=== PATIENT | male | born 1960 | race Caucasian/White ===

== ENCOUNTER 2016-07-21 08:30 | Inpatient (IN) | payer OTHER, MEDICARE ==
[~2016-07-21] VITALS: Ht 176.5 cm; Wt 83.4 kg
[2016-08-15] MEDS ORDERED: VENTAER INH (15:51)
[2016-08-15] MEDS ORDERED: ASPI1TAB69 PO (15:51)
[2016-08-15] MEDS ORDERED: SYMB160A INH (15:51)
[2016-08-15] MEDS ORDERED: AUGM875T PO (15:51)
[2016-08-18] VITALS (7 sets, daily range): BP systolic 150–154; BP diastolic 85–93; PULSE 70–88; RESP 18; TEMP 97.5–98.6; O2SAT 96–98
[2016-08-18] MEDS ORDERED: fentaNYL CITRATE 250 MCG/5 ML AMP ONE ×4 (07:04→14:47)
[2016-08-18] MEDS ORDERED: HYDROmorphone HCL PF 2 MG/ML VIAL ONE (07:04)
[2016-08-18] MEDS ORDERED: SUGAMMADEX SODIUM 200 MG/2 ML VIAL IV PUSH ONE ×2 (07:04)
[2016-08-18] MEDS ORDERED: INSULIN HUMAN REGULAR 1,000 UNITS/10 ML VIAL SQ PRN (07:15)
[2016-08-18] MEDS ORDERED: LACTATED RINGER'S 1000 ML IV SCH (07:15)
[2016-08-18] MEDS ORDERED: METOPROLOL TARTRATE 25 MG TAB PO PRN (07:15)
[2016-08-18] MEDS ORDERED: SODIUM CHLORID 0.9% 500 ML IV SCH (07:15)
[2016-08-18] MEDS ORDERED: METRONIDAZOLE 500 MG/100 ML ISONTONIC SOLN IV SCH (07:30)
[2016-08-18] MEDS ORDERED: DEXT 5%-NACL 0.9% 1000 ML INJ 1,000 ML IV SCH (07:30)
[2016-08-18] MEDS ORDERED: ceFAZolin 2 GM PREMIX 50 ML IV SCH (07:30)
[2016-08-18] MEDS ORDERED: MIDAZOLAM HCL 2 MG/2 ML VIAL ONE (08:39)
[2016-08-18] MEDS ORDERED: FAMOTIDINE 20 MG/2 ML VIAL ONE (08:40)
[2016-08-18] MEDS ORDERED: DEXAMETHASONE SOD PHOS 4 MG/ML VIAL ONE (08:40)
--- NOTE | 2016-08-18 09:42 | PD.OP ---
Operative Report Date of Surgery: Aug 18, 2016 Preoperative Diagnosis: Diverticulitis Postoperative Diagnosis: Same Procedure: Cystoscopy with bilateral ureteral catheter placement Surgeon: Praveen Fraser Director Of Emergency Nursing(s): None Resident Surgeon: None Operation and Findings: This is a 56-year-old male with history of diverticulitis elected to undergo robotic colectomy by Dr. Moffett. Request for made for bilateral ureteral catheter placement. Risk and benefits were discussed preoperatively and the patient is willing to proceed. Patient was brought to operating room identified by myself as Miki Damian. His placement dorsal lithotomy position, prepped and draped in usual sterile fashion, received preprocedure antibiotics, general endotracheal tube anesthesia was administered. A 22 Luxembourger scope was inserted into bladder. Ritter cystoscopy showed coaptation lobes of the prostate. No other abnormalities were identified within the bladder. Left ureteral orifice was identified and a 5 Luxembourger opening catheter was inserted into the left ureteral orifice without difficulty. This was repeated on the right side without difficulty. 16 Luxembourger Mg was then inserted and the catheters were anchored to the Mg. He tolerated the procedure well. Praveen Fraser DO Aug 18, 2016 09:42
[2016-08-18] MEDS ORDERED: ONDANSETRON HCL 4 MG/2 ML VIAL IV PUSH ONE (12:00)
[2016-08-18] MEDS ORDERED: ACETAMINOPHEN 1000 MG/100 ML VIAL IV ONE (12:00)
[2016-08-18] MEDS ORDERED: LACTATED RINGER'S 1000 ML INJ 1,000 ML IV ONE (12:00)
[2016-08-18] MEDS ORDERED: NORMOSOL R INJ 2,000 ML IV ONE (12:00)
[2016-08-18] MEDS ORDERED: PROPOFOL 200 MG/20 ML AMP IV ONE (12:00)
[2016-08-18] MEDS ORDERED: ceFAZolin INJ 1,000 MG VIAL IV ONE (13:19)
[2016-08-18] MEDS ORDERED: NALOXONE HCL 0.4 MG/ML AMP IV PRN (14:30)
[2016-08-18] MEDS ORDERED: POTASSIUM CHLOR 40 MEQ PREMIX 100 ML IV PRN (14:30)
[2016-08-18] MEDS ORDERED: POTASSIUM CHLOR 20 MEQ PREMIX 100 ML IV PRN (14:30)
[2016-08-18] MEDS ORDERED: BENZOCAINE 6 MG/MENTHOL 10 MG LOZENGE SUCK-ON PRN (14:30)
[2016-08-18] MEDS ORDERED: ENALAPRILAT 1.25 MG/ML VIAL IV PRN (14:30)
[2016-08-18] MEDS ORDERED: Post-op Orders (for Pharmacy) MISC XX ONE (14:35)
[2016-08-18] MEDS ORDERED: *morphine SULFATE 8 MG/ML PERIprocedure ONLY ONE ×3 (14:52→16:34)
[2016-08-18] MEDS: D5-NS + KCL 20 MEQ INJ 1,000 ML IV SCH ×2 (15:00→22:43)
[2016-08-18 15:11] LABS: AUTOMATED NEUTROPHIL # 13.3 TH/MM3 (1.8-7.7); BASOPHIL # 0.1 TH/MM3 (0-0.2); BASOPHIL % 0.5 % (0.0-2.0); EOSINOPHIL % 0.1 % (0.0-4.0); HEMATOCRIT 42.9 % (39.0-51.0); HEMO FLAGS DIFF FINAL; LYMPH % 8.9 % (9.0-44.0); LYMPHOCYTE # 1.4 TH/MM3 (1.0-4.8); MEAN CELL VOLUME 85.5 FL (80.0-100.0); MEAN CORPUSCULAR HEMOGLOBIN 28.4 PG (27.0-34.0); MEAN CORPUSCULAR HGB CONC 33.2 % (32.0-36.0); MONO % 4.7 % (0.0-8.0); NEUT % 85.8 % (16.0-70.0); PLATELET COUNT 375 TH/MM3 (150-450); RED BLOOD COUNT 5.02 MIL/MM3 (4.50-5.90); RED CELL DISTRIBUTION WIDTH 13.6 % (11.6-17.2); WHITE BLOOD COUNT 15.5 TH/MM3 (4.0-11.0)
[2016-08-18] MEDS: MORPHINE SULFATE 30 MG/30 ML PCA IV SCH (15:22)
[2016-08-18] MEDS ORDERED: DO NOT ADM ANY ANTICOAGULANT DRUGS XX PRN (15:45)
[2016-08-18 15:47] LABS: BICARBONATE 26.6 MEQ/L (21.0-32.0); POTASSIUM 4.5 MEQ/L (3.5-5.1)
[2016-08-18] MEDS ORDERED: LABETALOL HCL 100 MG/20 ML VIAL ONE ×2 (15:52→16:32)
[2016-08-18] MEDS: KETOROLAC TROMETHAMINE 30 MG/ML (IVP) VIAL IVP PRN ×2 (16:20→22:57)
[2016-08-18] MEDS: metroNIDAZOLE 500 MG INJ 100 ML IV SCH (17:00)
[2016-08-18] MEDS ORDERED: LIDOCAINE HCL 2% JELLY 5 ML SYRINGE ONE ×3 (17:09→17:30)
[2016-08-18] MEDS: OXYBUTYNIN CHLORIDE 5 MG TAB PO SCH (17:25)
[2016-08-18] MEDS: ONDANSETRON HCL 4 MG/2 ML VIAL IV PRN (17:55)
[2016-08-18] MEDS ORDERED: LORazepam 2 MG/ML VIAL ONE (18:38)
[2016-08-18] MEDS ORDERED: ALBUTEROL SULFATE 90 MCG/ACT HFA 8 GM INHALER INH PRN (20:00)
[2016-08-18] MEDS: SODIUM CHLORIDE 0.9% FLUSH 5 ML FLUSH IVF SCH (20:20)
[2016-08-18] MEDS: HEPARIN SODIUM - SQ 10,000 UNITS/ML VIAL SQ SCH (20:20)
[2016-08-18] MEDS: PCA - TOTAL MG MORPHINE DELIVERED PER SHIFT SCH (22:00)
[2016-08-19] VITALS (17 sets, daily range): BP systolic 125–159; BP diastolic 75–92; PULSE 69–102; RESP 14–18; TEMP 97.4–99.2; O2SAT 92–99
[2016-08-19] MEDS: metroNIDAZOLE 500 MG INJ 100 ML IV SCH ×2 (01:16→07:44)
[2016-08-19] MEDS: OXYBUTYNIN CHLORIDE 5 MG TAB PO SCH ×4 (01:36→23:32)
[2016-08-19] MEDS: diphenhydrAMINE HCL 50 MG/ML VIAL IV PRN ×2 (01:41→23:45)
[2016-08-19] MEDS: KETOROLAC TROMETHAMINE 30 MG/ML (IVP) VIAL IVP PRN ×4 (05:05→23:30)
[2016-08-19] MEDS: D5-NS + KCL 20 MEQ INJ 1,000 ML IV SCH ×2 (05:20→12:59)
[2016-08-19 05:21] LABS: AUTOMATED NEUTROPHIL # 5.9 TH/MM3 (1.8-7.7); BASOPHIL % 0.4 % (0.0-2.0); EOSINOPHIL % 0.4 % (0.0-4.0); HEMATOCRIT 39.3 % (39.0-51.0); HEMO FLAGS DIFF FINAL; LYMPH % 21.8 % (9.0-44.0); MEAN CELL VOLUME 86.1 FL (80.0-100.0); MEAN CORPUSCULAR HEMOGLOBIN 28.9 PG (27.0-34.0); MEAN CORPUSCULAR HGB CONC 33.5 % (32.0-36.0); MONO % 11.9 % (0.0-8.0); NEUT % 65.5 % (16.0-70.0); PLATELET COUNT 299 TH/MM3 (150-450); RED BLOOD COUNT 4.56 MIL/MM3 (4.50-5.90); RED CELL DISTRIBUTION WIDTH 13.6 % (11.6-17.2)
[2016-08-19] MEDS: LORazepam 2 MG/ML VIAL IV PUSH PRN ×3 (05:27→23:31)
[2016-08-19 05:38] LABS: BICARBONATE 30.3 MEQ/L (21.0-32.0); POTASSIUM 4.4 MEQ/L (3.5-5.1)
[2016-08-19] MEDS: MORPHINE SULFATE 30 MG/30 ML PCA IV SCH ×3 (05:47→23:53)
[2016-08-19] MEDS: PCA - TOTAL MG MORPHINE DELIVERED PER SHIFT SCH ×3 (05:47→22:00)
[2016-08-19] MEDS: HEPARIN SODIUM - SQ 10,000 UNITS/ML VIAL SQ SCH ×2 (06:24→17:46)
--- NOTE | 2016-08-19 07:38 | HHI.PR ---
Subjective Remarks POD#1 s/p robotic LAR/SBR/ANNA MARIE Reports bladder spasms no nausea Objective Vital Signs Date Time Temp Pulse Resp B/P Pulse Ox O2 Delivery O2 Flow Rate FiO2 08/19/16 07:27 18 08/19/16 06:00 82 08/19/16 05:47 14 08/19/16 05:47 18 08/19/16 05:00 80 08/19/16 04:00 73 08/19/16 04:00 97.6 72 16 148/90 95 08/19/16 03:00 70 08/19/16 02:00 72 08/19/16 01:00 97.4 69 14 145/90 99 08/19/16 01:00 74 08/19/16 00:00 71 14 148/91 98 08/19/16 00:00 69 08/18/16 23:00 72 08/18/16 22:44 97.6 74 18 154/93 98 08/18/16 22:00 74 08/18/16 22:00 14 08/18/16 21:00 88 08/18/16 20:06 97.5 71 18 150/85 98 08/18/16 20:00 70 08/18/16 19:40 97.8 74 15 97 Nasal Cannula 3 08/18/16 19:00 74 15 125/73 94 Nasal Cannula 3 08/18/16 18:30 74 15 160/93 94 Nasal Cannula 3 08/18/16 17:30 76 16 153/92 94 Nasal Cannula 3 08/18/16 17:00 79 16 164/89 94 Nasal Cannula 3 08/18/16 16:30 87 16 171/102 94 Nasal Cannula 3 08/18/16 16:15 87 16 157/96 94 Nasal Cannula 3 08/18/16 16:00 86 16 166/95 93 Nasal Cannula 3 08/18/16 15:45 91 16 175/101 93 Nasal Cannula 3 08/18/16 15:30 92 15 171/99 93 Nasal Cannula 3 08/18/16 15:22 16 08/18/16 15:15 94 15 154/90 93 Nasal Cannula 3 08/18/16 15:00 109 15 166/92 97 Simple Mask 6 08/18/16 14:45 111 15 165/97 97 Simple Mask 6 08/18/16 14:39 99.4 112 15 178/102 97 Simple Mask 6 I/O 08/18/16 08/18/16 08/18/16 08/19/16 08/19/16 08/19/16 07:00 15:00 23:00 07:00 15:00 23:00 Intake Total 3400 ml 400 ml 2576 ml Output Total 550 ml 800 ml 1000 ml Balance 2850 ml -400 ml 1576 ml Intake Oral 480 ml IV Total 400 ml 2096 ml Other 3400 ml Output Urine Total 400 ml 800 ml 1000 ml Estimated Blood Loss 150 ml # Voids 1 Result Diagram: 08/19/16 0414 08/19/16 0414 Objective Remarks Abdomen soft, distended, tender Dressings c/d/i Assessment and Plan Assessment and Plan D/C stent, flush borden Mobilized D/C tele If tolerates clears, advance to fulls this pm Elana Moffett MD Aug 19, 2016 07:38
[2016-08-19] MEDS: PANTOPRAZOLE SODIUM 40 MG VIAL IVP SCH (07:43)
[2016-08-19] MEDS: SODIUM CHLORIDE 0.9% FLUSH 5 ML FLUSH IVF SCH ×2 (07:43→20:53)
[2016-08-19] MEDS: ACETAMINOPHEN/HYDROcodone 325 MG/5 MG TAB PO PRN ×2 (17:06→23:31)
--- NOTE | 2016-08-19 18:55 | MP ---
cc: ALLEN MOFFETT M.D. DATE OF SURGERY: 08/18/2016. PREOPERATIVE DIAGNOSIS: Chronic diverticulitis POSTOPERATIVE DIAGNOSIS: Chronic diverticulitis with extension to the small bowel. OPERATIVE PROCEDURE PERFORMED: 1. Laparoscopic/robotic extensive lysis of adhesions. 2. Robotic low anterior resection 3. Robotic-assisted small bowel resection. SURGEON: Allen Moffett M.D. DIRECTOR [facility]: [facility]. ANESTHESIA: General per ET tube. ESTIMATED BLOOD LOSS: 150 cc. INDICATIONS FOR THE PROCEDURE: The patient is a 56-year-old male with multiple attacks of Diverticulitis with microperforation over several years time. OPERATIVE FINDINGS: The sigmoid colon was indurated, thickened and inflammatory and attached to the anterior abdominal wall, encroaching on the bladder space but not into the bladder space. The mid ileum had a small section that was starting to form a fistula into the area of inflammation. The gallbladder was not visualized. The liver as visualized appeared normal. The colon was opened at the end of the case and was noted have a small abscess as well. DESCRIPTION OF THE PROCEDURE IN DETAIL: The patient was brought to the operating room and placed in the supine position. After induction of general anesthesia, the patient was placed in Jairo stirrups. All bony prominences were carefully padded. The skin of the anterior abdominal wall, as well as the perineal area, was then prepped and draped in the usual sterile fashion. Dr. Fraser then came in and performed cystoscopy with placement of bilateral ureteral catheters, please see his operative note for details. A site was then chosen for the camera, being located 2 cm to the right and above the umbilicus. A 10/12 port was placed at this location under direct vision using a laparoscope. CO2 insufflation was then undertaken and a brief abdominal survey was performed. The sigmoid colon was immediately noted to be adherent to the anterior abdominal wall, down in the area of the bladder with a loop of small bowel adherent as well but there was nothing that would preclude the robotic approach. The remainder of the ports were placed as follows: the #1 10/12 port was placed just inside the anterior superior iliac spine, a #5 assist port was placed two fingerbreadths below the right costal margin, equal distance between the #1 and the camera port. The adhesions of the small bowel to the area of the phlegmon were then dissected free using electrocautery via laparoscopy, until we had mobility of the small bowel. There was noted however a fairly indurated section right on the side of the small bowel and I made a note to check the small bowel later in the course of the surgery. With this, I evaluated the descending colon and I was not clear on whether I would have to take out the splenic flexure, so I did elect to place my #2 port a little higher. The #3 port was placed in the left anterior axillary line, on a line with the umbilicus, and the #2 port was placed 5-7 cm above the umbilical line, in the left midclavicular line. The patient was hydroplaned with head down and slightly to the right. The small bowel was brought up and out of the pelvis to the extent possible. There were some adhesions of small bowel down to the right lower quadrant that needed to be dissected free in order to have decent retraction. The robot was then docked. The sigmoid colon was retracted further to the left and a window was made in the mesentery on the right. Dissection was continued in this window posterior to the vessels over to the lateral side. However, due to the massive amount of inflammation, I was really not able to definitively identify the left ureter. The adhesions of the phlegmon to the anterior abdominal wall and the left pelvic sidewall were then slowly and painstakingly dissected free using electrocautery, until eventually we had freed them up. However, there was still quite a bit of inflammation laterally as well. Dissection continued in this plane and eventually after much dissection of adhesions I was able to identify the left ureter and it was swept away from the specimen. A site was then chosen for division of the superior hemorrhoidal vessels. A window was made just above the vessels, and the Mcfarland Endo stapler white load was placed across the vessels. This was closed, held for 30 seconds, fired, and removed. The rectosigmoid was then retracted anteriorly and dissection continued posteriorly down to the level of mid rectum. This was continued up and around the right side. The rectosigmoid was then retracted to the right and the dissection was continued up and around the left side as well, again having quite a bit of adhesions to dissect through. Eventually we were able to straighten out the rectum and the distal rectum was noted to be quite healthy. It was necessary to go down beyond the peritoneal reflection anteriorly however. A sponge stick was placed into the rectum, and a site was chosen for division of the rectum at the junction between the mid rectum and the proximal rectum. The mesentery at this level was divided using the Harmonic stapler, and the Mcfarland Endo stapler was then placed across the bowel at this level. This was closed, held for 30 seconds, fired, and removed. A second load was necessary to complete the transection. At this point, the pelvis was examined and there was no sign of any significant bleeding. The descending colon was retracted medially and the lateral and posterior attachments of the descending colon were then dissected free up to the level of the splenic flexure but not around the splenic flexure. This allowed adequate length to come down into the pelvis without too much trouble. The robot was then undocked. Initially a 7 to 8 mm incision was made in the suprapubic area and a wound protector was then placed but I was not able to retrieve the specimen through such a small incision so I did have to make it slightly bigger. Eventually we were able to pull the proximal stapled end of the bowel up and out through the incision with the wound protector in place. A site was then chosen for proximal division of the bowel, where the bowel was pink and healthy circumferentially. The mesentery at this level was serially divided and ligated using #0 Vicryl ties and a pursestring stapling device was placed across the bowel at this level. The distal bowel was occluded with a Augustus clamp and the bowel was amputated and it was taken to a back table where it was later opened and the diverticulitis was confirmed. There was a very significant amount of inflammation, and a small pericolonic abscess as well. The small bowel was then examined and due to the fairly extensive area where it had been attached to the colon, I did elect to remove a section measuring possibly 10 to 12 cm in length. The mesentery at this level was serially divided and ligated using #0 Vicryl ties and the KELSEY stapler was placed across the bowel proximal and distal to the area of concern. The bowel was then amputated and taken to a back table where it was later opened and it did appear that he had started to fistulize into the small bowel. The antimesenteric corners of the staple line were then removed. One limb of the gastrointestinal stapler was placed down each limb of the bowel. This was closed along the antimesenteric border, fired, and removed, thus creating an enteroenterostomy. The resulting enterotomy was closed transversely using a TX 60 stapling device. The anastomosis was palpated and found to be widely patent. The mesentery was closed in an interrupted fashion using 3-0 Vicryl and a simple stay suture was placed at the distal end of the staple line using 3-0 Vicryl. This was then reduced back into the peritoneal cavity. An attempt to put the anvil from the 33 EEA stapler into the cut end of the bowel, but it did not fit so I dropped down to a 29. The anvil was placed into the cut end of the bowel and the previously placed pursestring suture was then secured. It was necessary to pull in one small area with a 3-0 Vicryl suture. A 29 EEA stapler was then advanced through the anus and up to the rectal stump where it lay nicely without tension. The spike was advanced posterior to the staple line. There was one small dog ear that was needed to be pulled in with the suture as well on the distal staple line. This was done using 3-0 Vicryl. The anvil was then into the spike, being careful that the bowel was not twisted. The stapler was closed, held for 30 seconds, fired and removed, thus creating an enteroenterotomy. The anastomosis appeared pink and healthy circumferentially and both anastomotic rings appeared to be complete. A small amount of warm normal saline was placed in the pelvis and digital pressure was held on the proximal bowel. Air was insufflated into the rectum until tension was noted on the anastomosis. There was no sign of any leakage noted. The air was desufflated to the extent possible and the saline was suctioned out of the pelvis. The anastomosis lay nicely without tension with a nice orientation. All dissection beds were examined. There was no sign of any significant bleeding. The posterior fascia at the suprapubic incision was closed in a running fashion using #1 PDS and the anterior fascia of the suprapubic incision was closed using #1 PDS. The suprapubic incision was then closed with an OpSite and CO2 insufflation was resumed. The laparoscope was brought onto the field and the 10/12 trocar at the umbilical and the right lower quadrant site were then closed using the crossbow closure device and 0 Vicryl suture. These sutures were placed but not tied until an additional look in the pelvis was noted with no sign of any significant bleeding noted. The air was desufflated to the extent possible from the peritoneal cavity. The previously placed fascial sutures were then secured. All wounds were copiously irrigated with warm normal saline. The skin at the suprapubic incision was closed in a running fashion using 3-0 Vicryl, and the skin at the trocar sites was closed in interrupted subcuticular fashion using 3-0 Vicryl. Steri-Strips and sterile dressing was applied. All sponge, needle and instrument counts were correct. The right ureteral stent was removed, and the patient was returned to the post anesthesia care in stable condition. MD JOCELYN Fisher/ALEXANDER /2:20 PM /6:23 PM MTDBess
[2016-08-19] MEDS: ONDANSETRON HCL 4 MG/2 ML VIAL IV PRN (23:31)
[2016-08-20] VITALS (12 sets, daily range): BP systolic 127–159; BP diastolic 75–98; PULSE 86–109; RESP 14–20; TEMP 97.5–99.5; O2SAT 86–97
[2016-08-20] MEDS: D5-NS + KCL 20 MEQ INJ 1,000 ML IV SCH ×2 (00:10→11:02)
[2016-08-20 04:58] LABS: BASOPHIL % 0.3 % (0.0-2.0); EOSINOPHIL # 0.3 TH/MM3 (0-0.4); EOSINOPHIL % 2.9 % (0.0-4.0); HEMATOCRIT 40.1 % (39.0-51.0); LYMPH % 13.3 % (9.0-44.0); LYMPHOCYTE # 1.4 TH/MM3 (1.0-4.8); MEAN CELL VOLUME 86.8 FL (80.0-100.0); MEAN CORPUSCULAR HEMOGLOBIN 28.7 PG (27.0-34.0); MEAN CORPUSCULAR HGB CONC 33.1 % (32.0-36.0); MONO % 10.1 % (0.0-8.0); NEUT % 73.4 % (16.0-70.0); PLATELET COUNT 286 TH/MM3 (150-450); RED BLOOD COUNT 4.62 MIL/MM3 (4.50-5.90); RED CELL DISTRIBUTION WIDTH 13.8 % (11.6-17.2); WHITE BLOOD COUNT 10.9 TH/MM3 (4.0-11.0)
[2016-08-20 05:07] LABS: HEMO FLAGS AUTO DIFF
[2016-08-20 05:22] LABS: BICARBONATE 30.4 MEQ/L (21.0-32.0); POTASSIUM 4.3 MEQ/L (3.5-5.1)
[2016-08-20] MEDS: PCA - TOTAL MG MORPHINE DELIVERED PER SHIFT SCH ×3 (06:00→22:00)
[2016-08-20] MEDS: ACETAMINOPHEN/HYDROcodone 325 MG/5 MG TAB PO PRN ×2 (06:13→14:59)
[2016-08-20] MEDS: KETOROLAC TROMETHAMINE 30 MG/ML (IVP) VIAL IVP PRN ×4 (06:13→20:49)
[2016-08-20] MEDS: HEPARIN SODIUM - SQ 10,000 UNITS/ML VIAL SQ SCH ×2 (06:15→17:46)
[2016-08-20 06:20] LABS: SCAN/DIFF AUTO DIFF CONFIRMED
--- NOTE | 2016-08-20 08:51 | HHI.PR ---
Subjective Remarks POD#2 s/p robotic LAR/SBR/ANNA MARIE Still with some abdominal spasms Minimal flatus Objective Vital Signs Date Time Temp Pulse Resp B/P Pulse Ox O2 Delivery O2 Flow Rate FiO2 08/20/16 08:09 20 08/20/16 08:08 20 08/20/16 06:40 20 08/20/16 06:00 18 08/20/16 05:16 99.5 98 14 159/97 94 08/20/16 03:00 93 Nasal Cannula 2.00 08/20/16 00:30 127/75 08/20/16 00:00 144/84 08/20/16 00:00 94 Nasal Cannula 2.00 08/19/16 23:54 99.2 102 14 159/92 94 08/19/16 23:53 16 08/19/16 22:00 14 08/19/16 22:00 18 08/19/16 20:44 98.6 95 16 142/87 94 08/19/16 20:42 94 Room Air 08/19/16 19:38 94 Nasal Cannula 2.00 08/19/16 15:28 92 Room Air 08/19/16 15:28 99.0 94 18 153/83 92 08/19/16 15:26 18 08/19/16 15:11 18 08/19/16 14:24 16 08/19/16 12:49 18 08/19/16 11:40 93 Room Air 08/19/16 11:38 97.7 76 18 125/75 93 08/19/16 11:36 94 Nasal Cannula 2.00 I/O 08/19/16 08/19/16 08/19/16 08/20/16 08/20/16 08/20/16 07:00 15:00 23:00 07:00 15:00 23:00 Intake Total 2576 ml 1860 ml 2749 ml Output Total 1000 ml 950 ml 900 ml Balance 1576 ml 910 ml 1849 ml Intake Oral 480 ml 660 ml 240 ml IV Total 2096 ml 1200 ml 2509 ml Output Urine Total 1000 ml 950 ml 900 ml # Bowel Movements 0 0 Result Diagram: 08/20/16 0431 08/20/16 0431 Objective Remarks Abdomen soft, distended, tender Wounds clean Assessment and Plan Assessment and Plan D/C borden Transfer to [facility] Surg Mobilize Hold at Full liquids until less distended Elana Moffett MD Aug 20, 2016 08:51
[2016-08-20] MEDS: PANTOPRAZOLE SODIUM 40 MG VIAL IVP SCH (08:55)
[2016-08-20] MEDS: SODIUM CHLORIDE 0.9% FLUSH 5 ML FLUSH IVF SCH ×2 (08:56→20:50)
[2016-08-20] MEDS ORDERED: INFLUENZA VIRUS VACCINE (QUADRIVALENT) 0.5 ML SYR IM ONE (10:00)
[2016-08-20] MEDS ORDERED: PNEUMOCOCCAL POLYVALENT INJ 25 MCG/0.5 ML SYR IM ONE (10:00)
[2016-08-20] MEDS: MORPHINE SULFATE 30 MG/30 ML PCA IV SCH ×2 (11:40→21:06)
[2016-08-20] MEDS: OXYBUTYNIN CHLORIDE 5 MG TAB PO SCH ×2 (13:57→16:42)
[2016-08-20] MEDS: LORazepam 2 MG/ML VIAL IV PUSH PRN ×2 (14:59→20:50)
[2016-08-20] MEDS: diphenhydrAMINE HCL 50 MG/ML VIAL IV PRN ×2 (15:04→20:49)
[2016-08-20] MEDS: ENALAPRILAT 2.5 MG/2 ML VIAL IV PRN (16:47)
[2016-08-21] VITALS (9 sets, daily range): BP systolic 111–130; BP diastolic 64–85; PULSE 102–128; RESP 16–20; TEMP 98.4–99.2; O2SAT 90–99
[2016-08-21] MEDS: KETOROLAC TROMETHAMINE 30 MG/ML (IVP) VIAL IVP PRN ×2 (02:14→08:23)
[2016-08-21] MEDS: D5-NS + KCL 20 MEQ INJ 1,000 ML IV SCH (02:14)
[2016-08-21] MEDS: LORazepam 2 MG/ML VIAL IV PUSH PRN ×2 (02:50→08:23)
[2016-08-21] MEDS: PCA - TOTAL MG MORPHINE DELIVERED PER SHIFT SCH ×2 (06:00→12:43)
[2016-08-21 06:05] LABS: AUTOMATED NEUTROPHIL # 12.1 TH/MM3 (1.8-7.7); BASOPHIL % 0.2 % (0.0-2.0); EOSINOPHIL % 0.1 % (0.0-4.0); HEMATOCRIT 44.4 % (39.0-51.0); HEMO FLAGS DIFF FINAL; LYMPH % 9.3 % (9.0-44.0); LYMPHOCYTE # 1.3 TH/MM3 (1.0-4.8); MEAN CELL VOLUME 87.5 FL (80.0-100.0); MEAN CORPUSCULAR HEMOGLOBIN 28.3 PG (27.0-34.0); MEAN CORPUSCULAR HGB CONC 32.3 % (32.0-36.0); MONO % 6.8 % (0.0-8.0); NEUT % 83.6 % (16.0-70.0); PLATELET COUNT 381 TH/MM3 (150-450); RED BLOOD COUNT 5.07 MIL/MM3 (4.50-5.90); RED CELL DISTRIBUTION WIDTH 13.9 % (11.6-17.2); WHITE BLOOD COUNT 14.5 TH/MM3 (4.0-11.0)
[2016-08-21] MEDS: HEPARIN SODIUM - SQ 10,000 UNITS/ML VIAL SQ SCH ×2 (06:08→16:40)
[2016-08-21 06:34] LABS: BICARBONATE 27.9 MEQ/L (21.0-32.0); POTASSIUM 5.1 MEQ/L (3.5-5.1)
[2016-08-21] MEDS: OXYBUTYNIN CHLORIDE 5 MG TAB PO SCH ×3 (08:23→16:39)
[2016-08-21] MEDS: PANTOPRAZOLE SODIUM 40 MG VIAL IVP SCH (08:23)
[2016-08-21] MEDS: SODIUM CHLORIDE 0.9% FLUSH 5 ML FLUSH IVF SCH ×2 (08:23→20:03)
[2016-08-21] MEDS: MORPHINE SULFATE 30 MG/30 ML PCA IV SCH (08:31)
[2016-08-21] MEDS: diphenhydrAMINE HCL 50 MG/ML VIAL IV PRN ×2 (10:44→20:03)
[2016-08-21] MEDS: BUDESONIDE-FORMOTEROL 160/4.5 MCG INHALER INH PRN (12:43)
[2016-08-21] MEDS: ACETAMINOPHEN/HYDROcodone 325 MG/5 MG TAB PO PRN ×2 (13:14→19:06)
[2016-08-21] MEDS: FUROSEMIDE 20 MG/2 ML VIAL IV PUSH SCH ×2 (13:14→20:02)
[2016-08-21] MEDS ORDERED: IODIXANOL 320 MG/ML 10 ML VIAL (for Rad CT) IV ONE (15:09)
--- NOTE | 2016-08-21 15:09 | HHI.PR ---
Subjective Remarks POD#3 s/p robotic LAR/SBR/ANNA MARIE SOB today CT for PE pending Objective Vital Signs Date Time Temp Pulse Resp B/P Pulse Ox O2 Delivery O2 Flow Rate FiO2 08/21/16 14:19 16 08/21/16 12:43 16 08/21/16 12:00 Nasal Cannula 2.00 21 08/21/16 12:00 99.1 114 20 123/78 94 08/21/16 09:50 16 08/21/16 08:31 16 08/21/16 08:00 Nasal Cannula 4.00 21 08/21/16 08:00 99.2 111 16 130/82 92 08/21/16 06:00 18 08/21/16 06:00 18 08/21/16 05:51 95 Nasal Cannula 4.00 08/21/16 03:00 98.4 102 18 126/85 96 08/21/16 03:00 96 Nasal Cannula 2.00 08/20/16 23:00 97 Nasal Cannula 2.00 08/20/16 23:00 98.3 92 20 142/78 97 08/20/16 22:00 18 08/20/16 22:00 18 08/20/16 21:06 18 08/20/16 19:00 95 Nasal Cannula 2.00 08/20/16 19:00 98.2 109 18 156/85 95 08/20/16 16:08 22 08/20/16 15:11 97.5 92 18 151/95 94 08/20/16 15:11 94 Nasal Cannula 2.00 I/O 08/20/16 08/20/16 08/20/16 08/21/16 08/21/16 08/21/16 07:00 15:00 23:00 07:00 15:00 23:00 Intake Total 2749 ml 1080 ml 1200 ml Output Total 900 ml 1300 ml 800 ml Balance 1849 ml -220 ml 400 ml Intake Oral 240 ml 480 ml 600 ml IV Total 2509 ml 600 ml 600 ml Output Urine Total 900 ml 1300 ml 800 ml # Bowel Movements 0 0 Result Diagram: 08/21/16 0539 08/21/16 0539 Objective Remarks Chest - slight crackles, wheeze Abdomen softer, still distended, tender Wounds clean Assessment and Plan Assessment and Plan Per patient, he uses nebulizer each afternoon Suspect combo of this, and fluid overload Await CT results Lasix Continue fulls until better flatus/BM Elana Moffett MD Aug 21, 2016 15:09
--- NOTE | 2016-08-21 15:12 | RADRPT ---
EXAM DATE/TIME: 08/21/2016 14:05 [facility] COMPARISON: No previous studies available for comparison. INDICATIONS : Shortness of breath. IV CONTRAST: 89 cc Visipaque (iodixanol) IV RADIATION DOSE: 22.2 CTDIvol (mGy) MEDICAL HISTORY : Hypertension. Renal disease, diabetes SURGICAL HISTORY : Colon resection. ENCOUNTER: Initial ACUITY: 1 day PAIN SCALE: 0/10 LOCATION: Chest TECHNIQUE: Volumetric scanning of the chest was performed using a pulmonary embolism protocol MIP images were reconstructed. Using automated exposure control and adjustment of the mA and/or kV acco rding to patient size, radiation dose was kept as low as reasonably achievable to obtain optimal diag nostic quality images. FINDINGS: There is mild prominence of the interstitium with minimal bibasilar parenchymal changes evident. There is no evidence for central pulmonary emboli. There is no pericardial effusion. There is ascites with minimal free air present. A small amount of air is seen in the subcutaneous tissues as well consistent with recent surgical his tory. CONCLUSION: 1. There is no evidence for central pulmonary emboli. 2. Minimal subcutaneous air as well as free intraperitoneal air. Aditya Rocha MD FACR on August 21, 2016 at 15:04 Board Certified Radiologist. This report was verified electronically.
[2016-08-21] MEDS: RESP: ALBUTEROL 2.5 MG/3 ML NEB (SCH) NEB ×2 (15:49→19:46)
[2016-08-22] VITALS (18 sets, daily range): BP systolic 120–165; BP diastolic 69–94; PULSE 98–144; RESP 16–40; TEMP 97.5–99.6; O2SAT 87–98
[2016-08-22] MEDS: ACETAMINOPHEN/HYDROcodone 325 MG/5 MG TAB PO PRN (03:03)
[2016-08-22] MEDS: LORazepam 2 MG/ML VIAL IV PUSH PRN ×4 (03:04→20:31)
[2016-08-22] MEDS: HEPARIN SODIUM - SQ 10,000 UNITS/ML VIAL SQ SCH ×3 (05:15→20:13)
[2016-08-22] MEDS ORDERED: RESP: ALBUTEROL 2.5 MG/3 ML NEB (SCH) INH ONE (06:00)
--- NOTE | 2016-08-22 06:27 | RADRPT ---
EXAM DATE/TIME: 08/22/2016 06:02 [facility] COMPARISON: No previous studies available for comparison. INDICATIONS : Very short of breath for past 3 days, pain in abdomen, chest, and shoulders MEDICAL HISTORY : Chronic obstructive pulmonary disease. Diverticulitis. SURGICAL HISTORY : colon resection ENCOUNTER: Subsequent ACUITY: 3 days PAIN SCORE: 10/10 LOCATION: Bilateral chest FINDINGS: A single view of the chest demonstrates mild basilar airspace disease, right greater than left. No si gnificant effusion. No pneumothorax. CONCLUSION: Mild basilar airspace disease, right greater than left. Findings similar to CT from August 21 and ost characteristic of atelectasis. Miki Banerjee MD on August 22, 2016 at 6:20 Board Certified Radiologist. This report was verified electronically.
[2016-08-22] MEDS: RESP: ALBUTEROL 2.5 MG/3 ML NEB (SCH) NEB (07:31)
[2016-08-22] MEDS: BUDESONIDE-FORMOTEROL 160/4.5 MCG INHALER INH PRN (07:43)
[2016-08-22] MEDS: FUROSEMIDE 20 MG/2 ML VIAL IV PUSH SCH ×2 (07:53→20:14)
--- NOTE | 2016-08-22 09:25 | HHI.PR ---
Subjective Remarks POD#4 s/p robotic LAR/SBR/ANNA MARIE Repiratory distress, able to converse easily No nausea Abdominal pain only with movement Objective Vital Signs Date Time Temp Pulse Resp B/P Pulse Ox O2 Delivery O2 Flow Rate FiO2 08/22/16 08:20 138 08/22/16 07:59 99.0 133 24 165/94 95 08/22/16 07:59 96 Nasal Cannula 4.00 Humidified 08/22/16 06:08 92 Nasal Cannula 4.00 08/22/16 04:00 98.4 113 22 147/94 95 08/22/16 04:00 95 Nasal Cannula 4.00 21 Humidified 08/22/16 00:00 98.9 98 16 120/69 98 08/22/16 00:00 98 Nasal Cannula 4.00 21 Humidified 08/21/16 20:00 Nasal Cannula 4.00 21 Humidified 08/21/16 20:00 98.8 112 20 111/72 99 08/21/16 19:49 90 Nasal Cannula 4.00 08/21/16 16:00 Nasal Cannula 4.00 21 08/21/16 16:00 99.0 128 19 113/64 95 08/21/16 15:54 94 Nasal Cannula 4.00 08/21/16 14:19 16 08/21/16 12:43 16 08/21/16 12:00 Nasal Cannula 2.00 21 08/21/16 12:00 99.1 114 20 123/78 94 08/21/16 09:50 16 I/O 08/21/16 08/21/16 08/21/16 08/22/16 08/22/16 08/22/16 07:00 15:00 23:00 07:00 15:00 23:00 Intake Total 1200 ml 1540 ml 480 ml Output Total 800 ml 1100 ml 450 ml Balance 400 ml 440 ml 30 ml Intake Oral 600 ml 940 ml 480 ml IV Total 600 ml 600 ml Output Urine Total 800 ml 1100 ml 450 ml # Voids 2 # Bowel Movements 1 1 Result Diagram: 08/21/16 0539 08/21/16 0539 Objective Remarks Abdomen still distended, tender Right abdominal wall erythematous, no fluctuance Assessment and Plan Assessment and Plan Check EKG, Troponin Xopenox Check stat labs, CBC<, BMP, MAg, ABG Xray from this am ok Start Vancomycin for wound infection Once stable, may check abdominal CT Elana Moffett MD Aug 22, 2016 09:25
[2016-08-22 09:29] LABS: BLOOD GAS BASE EXCESS -3.3 mmol/L (-2-2); BLOOD GAS CARBOXYHEMOGLOBIN 1.6 % (0-4); BLOOD GAS HCO3 21 mmol/L (22-26); BLOOD GAS O2 HGB SATURATION 94 % (90-100); BLOOD GAS OXYGEN CONTENT 18.8 Vol % (12.0-20.0); BLOOD GAS PCO2 38 mmHg (38-42); BLOOD GAS PO2 86 mmHg (61-120); BLOOD GAS TOTAL HGB 14.2 G/DL (12.0-16.0); TEMP CORR TO 98.6
[2016-08-22 09:30] LABS: CRITICAL VALUE NO; DRAW SITE LT RADIAL; LITER FLOW 6 L/M; NUMBER OF ARTERIAL PUNCTURES 1; OXYGEN DEVICE SIMPLE MASK; STAT YES; ULNAR PULSE PRESENT
[2016-08-22] MEDS ORDERED: Vancomycin Consult Pharmacy 1 EA OTHER SCH (09:30)
[2016-08-22] MEDS ORDERED: ASPIRIN 81 MG CHEW TAB CHEW ONE ×2 (09:30)
[2016-08-22 09:31] LABS: AUTOMATED NEUTROPHIL # 18.7 TH/MM3 (1.8-7.7); BASOPHIL % 0.2 % (0.0-2.0); EOSINOPHIL % 0.2 % (0.0-4.0); HEMATOCRIT 42.3 % (39.0-51.0); LYMPH % 2.9 % (9.0-44.0); LYMPHOCYTE # 0.6 TH/MM3 (1.0-4.8); MEAN CELL VOLUME 86.2 FL (80.0-100.0); MEAN CORPUSCULAR HEMOGLOBIN 29.4 PG (27.0-34.0); MEAN CORPUSCULAR HGB CONC 34.1 % (32.0-36.0); MONO % 6.9 % (0.0-8.0); NEUT % 89.8 % (16.0-70.0); PLATELET COUNT 482 TH/MM3 (150-450); RED BLOOD COUNT 4.91 MIL/MM3 (4.50-5.90); WHITE BLOOD COUNT 20.8 TH/MM3 (4.0-11.0)
[2016-08-22 09:34] LABS: HEMO FLAGS AUTO DIFF
[2016-08-22] MEDS: RESP: LEVALBUTEROL HYDROCHLORIDE 1.25 MG/3 ML NEB (PRN) NEB ×2 (09:39→15:12)
[2016-08-22 09:55] LABS: BICARBONATE 24.6 MEQ/L (21.0-32.0); POTASSIUM 4.8 MEQ/L (3.5-5.1)
[2016-08-22] MEDS: SODIUM CHLORIDE 0.9% FLUSH 5 ML FLUSH IVF SCH ×2 (10:09→21:00)
[2016-08-22] MEDS: OXYBUTYNIN CHLORIDE 5 MG TAB PO SCH ×3 (10:10→17:28)
[2016-08-22] MEDS: PANTOPRAZOLE SODIUM 40 MG VIAL IVP SCH (10:10)
[2016-08-22 10:11] LABS: BANDS 26 % (0-6); NEUTROPHIL # MANUAL DIFF 19.6 TH/MM3 (1.8-7.7); POLYS (SEG NEUTROPHILS) 68 % (16-70); WBC DIFF SAMPLE 100
[2016-08-22 10:12] LABS: PLATELET ESTIMATE SMEAR HIGH (NORMAL); PLATELET MORPHOLOGY NORMAL (NORMAL); SCAN/DIFF FINAL DIFF MANUAL
--- NOTE | 2016-08-22 10:31 | RADRPT ---
EXAM DATE/TIME: 08/22/2016 09:55 [facility] COMPARISON: CT abdomen August 19 to be used for comparison. INDICATIONS: Respiratory distress. MEDICAL HISTORY: Hypertension. Renal disease, diabetes SURGICAL HISTORY: Colon resection. ENCOUNTER: Subsequent ACUITY: 2 days PAIN SCORE: 10/10 LOCATION: Abdomen, all quadrants. FINDINGS: Two view abdomen demonstrates there is a fair amount of bowel gas and some distended but non-dilated loops of small bowel. No obvious organomegaly is identified. CONCLUSION: Air-filled loops of distended small bowel. Otherwise nonspecific bowel gas pattern. Mikel Nguyen MD on August 22, 2016 at 10:20 Board Certified Radiologist. This report was verified electronically.
[2016-08-22] MEDS ORDERED: VANCOMYCIN INJ 1,500 MG in SODIUM CHLORID 0.9% 500 ML INJ 500 ML IV ONE (12:00)
[2016-08-22] MEDS: METOCLOPRAMIDE HCL 10 MG/2 ML VIAL IV PUSH SCH ×2 (12:06→21:45)
[2016-08-22] MEDS: SODIUM CHLOR 0.9% 1000 ML INJ 1,000 ML IV SCH (17:28)
--- NOTE | 2016-08-22 19:49 | MB ---
cc: MASON LUNA DATE OF CONSULTATION 08/22/[address] Elana Moffett REASON FOR CONSULTATION Respiratory management. HISTORY OF PRESENT ILLNESS Mr. Damian is a 56-year-old male with history of hypertension, COPD, nicotine use continues to smoke one pack of cigarettes a day. The patient was brought by Dr. Elana Moffett and he had diverticulitis. He had laparoscopic robotic-assisted extensive lysis of adhesion, low anterior resection and small bowel resection done on Sunday. Todays, the patient became more short of breath. He had a CT of the chest does not show any pulmonary embolism. Currently, he is on BiPap. He feels his breathing is better. LABORATORY FINDINGS WBC count is 20.8, hemoglobin 14.4, hematocrit 42.3, MCV 86, platelets 482. Sodium 137, potassium 4.8, chloride 104, CO2 24, BUN 31, creatinine 2.0, Arterial blood gas on six liters nasal cannula - pH 7.37, pCO2 38, PO2 86. PAST MEDICAL HISTORY 1. History of COPD, 2. Hypertension, 3. Anxiety disorder, 4. Prostate enlargement 5. Tonsillectomy. MEDICATIONS Currently taking 1. Ativan 0.5 mg q 3-hour p.r.n. 2. Reglan 10 mg q. 8-hour. 3. Xopenex nebulizer treatment 4. Lasix 20 mg twice a day, 5. Protonix 40 mg a day 6. Symbicort ALLERGIES NO KNOWN DRUG ALLERGIES. SOCIAL HISTORY He is . Works in construction. He has a long history of smoking, continues to smoke one pack of cigarettes a day. FAMILY HISTORY He has four children. REVIEW OF SYSTEMS Normally he is up around and active. No headache or dizziness. No DVT or pulmonary embolism. No seizure, stroke or epilepsy. PHYSICAL EXAMINATION GENERAL: Well-built, well-nourished obese male mildly short of breath. VITAL SIGNS: Blood pressure 131/72, heart 115, respiration 22, Temperature 97.5 HEENT: Pupils are equal and reactive to light. NECK: Supple. JVP not raised. CHEST: He has few expiratory rhonchi. CARDIOVASCULAR: S1, S2 normal ABDOMEN: Obese, nontender. Bowel sounds are present. EXTREMITIES: No edema. IMPRESSION 1. COPD exacerbation 2. Respiratory insufficiency. 3. Hypertension 4. Status post laparoscopic robotic extensive lysis of adhesions and LAR PLAN I discussed with the patient and family we will keep him on BiPap aerosol treatment with albuterol and Atrovent. I will give him a short course of steroid, Solu-Medrol 40 mg q.8 h Supplement his oxygen. Once he gets better, he will need pulmonary function study. Further treatment will depend on the course in the hospital. Thank you, Dr. Elana Moffett, for this consultation. MD TATY Bateman/ /7:22 PM /7:33 PM THIEN
[2016-08-22] MEDS: MORPHINE SULFATE 4 MG/ML INJ IV PRN (20:14)
[2016-08-22] MEDS: methylPREDNISolone SOD SUCC 40 MG/1 ML VIAL IV PUSH SCH (21:44)
[2016-08-23] VITALS (26 sets, daily range): BP systolic 142–156; BP diastolic 84–99; PULSE 108–138; RESP 20–30; TEMP 97–100.3; O2SAT 93–97
[2016-08-23] MEDS: MORPHINE SULFATE 4 MG/ML INJ IV PRN ×5 (00:10→21:54)
[2016-08-23] MEDS: LORazepam 2 MG/ML VIAL IV PUSH PRN ×4 (01:33→20:41)
[2016-08-23] MEDS: methylPREDNISolone SOD SUCC 40 MG/1 ML VIAL IV PUSH SCH ×3 (05:45→21:40)
[2016-08-23] MEDS: METOCLOPRAMIDE HCL 10 MG/2 ML VIAL IV PUSH SCH ×3 (05:46→21:39)
[2016-08-23 06:54] LABS: AUTOMATED NEUTROPHIL # 16.4 TH/MM3 (1.8-7.7); BASOPHIL % 0.2 % (0.0-2.0); EOSINOPHIL % 0.1 % (0.0-4.0); HEMATOCRIT 40.6 % (39.0-51.0); HEMO FLAGS DIFF FINAL; LYMPH % 2.6 % (9.0-44.0); LYMPHOCYTE # 0.5 TH/MM3 (1.0-4.8); MEAN CELL VOLUME 86.5 FL (80.0-100.0); MEAN CORPUSCULAR HEMOGLOBIN 28.6 PG (27.0-34.0); MEAN CORPUSCULAR HGB CONC 33.1 % (32.0-36.0); NEUT % 89.1 % (16.0-70.0); PLATELET COUNT 479 TH/MM3 (150-450); RED BLOOD COUNT 4.69 MIL/MM3 (4.50-5.90); WHITE BLOOD COUNT 18.5 TH/MM3 (4.0-11.0)
[2016-08-23 07:22] LABS: BICARBONATE 22.9 MEQ/L (21.0-32.0); POTASSIUM 4.9 MEQ/L (3.5-5.1)
--- NOTE | 2016-08-23 08:08 | HHI.PR ---
Subjective Remarks POD#5 s/p robotic LAR/SBR/ANNA MARIE Repiratory distress,improved on Bipap Objective Vital Signs Date Time Temp Pulse Resp B/P Pulse Ox O2 Delivery O2 Flow Rate FiO2 08/23/16 07:39 98.3 109 20 149/97 96 08/23/16 06:00 93 Bi-Pap 5.00 30 08/23/16 06:00 120 08/23/16 04:00 138 08/23/16 04:00 98.1 114 28 144/90 97 08/23/16 04:00 97 Simple Mask 8.00 08/23/16 01:23 94 BiPAP 35 08/23/16 01:23 94 35 08/23/16 00:00 123 08/23/16 00:00 95 Bi-Pap 5.00 30 08/23/16 00:00 100.3 123 30 144/90 95 08/22/16 22:00 144 08/22/16 20:00 114 08/22/16 20:00 99.6 114 40 159/93 87 08/22/16 20:00 87 Nasal Cannula 5.00 Humidified 08/22/16 17:33 95 35 08/22/16 17:30 94 Bi-Pap 30 08/22/16 16:56 97 Simple Mask 6.00 08/22/16 16:56 97.5 115 22 131/72 97 08/22/16 15:00 108 08/22/16 14:00 106 08/22/16 13:14 94 Nasal Cannula 4.00 08/22/16 13:00 104 08/22/16 12:55 105 08/22/16 12:49 105 08/22/16 12:10 96 Nasal Cannula 4.00 Humidified 08/22/16 12:07 98.0 112 28 121/72 95 08/22/16 11:00 120 08/22/16 08:55 140 08/22/16 08:30 96 Simple Mask 8.00 08/22/16 08:20 138 I/O 08/22/16 08/22/16 08/22/16 08/23/16 08/23/16 08/23/16 07:00 15:00 23:00 07:00 15:00 23:00 Intake Total 480 ml 700 ml 1254 ml Output Total 450 ml 350 ml 500 ml Balance 30 ml 350 ml 754 ml Intake Oral 480 ml 200 ml 180 ml IV Total 500 ml 1074 ml Output Urine Total 450 ml 350 ml 500 ml # Voids 2 # Bowel Movements 1 0 Result Diagram: 08/23/1661208/23/16612 Objective Remarks Abdomen still distended, tender Right abdominal wall erythema about the same Assessment and Plan Assessment and Plan Kidney function improved Still in + fluid balance Increase Lasix WBC's lower Possibly check gastrografin enema Elana Moffett MD Aug 23, 2016 08:08
[2016-08-23] MEDS: FUROSEMIDE 20 MG/2 ML VIAL IV PUSH SCH ×2 (09:00→20:41)
[2016-08-23] MEDS: SODIUM CHLOR 0.9% 1000 ML INJ 1,000 ML IV SCH (10:10)
[2016-08-23] MEDS ORDERED: DIATRIZOATE MEGLUM/DIATRIZOATE SOD 120 ML BTL (for RAD DIAG) RECTAL ONE (10:57)
[2016-08-23] MEDS: PANTOPRAZOLE SODIUM 40 MG VIAL IVP SCH (11:16)
[2016-08-23] MEDS: ENALAPRILAT 2.5 MG/2 ML VIAL IV PRN (11:17)
[2016-08-23] MEDS: OXYBUTYNIN CHLORIDE 5 MG TAB PO SCH ×3 (11:19→17:50)
[2016-08-23] MEDS: SODIUM CHLORIDE 0.9% FLUSH 5 ML FLUSH IVF SCH ×2 (11:19→20:41)
[2016-08-23] MEDS: VANCOMYCIN INJ 1,500 MG in SODIUM CHLORID 0.9% 500 ML INJ 500 ML IV SCH (11:29)
--- NOTE | 2016-08-23 11:40 | EKG ---
Date Performed: 08/22/2016 Time Performed: 09:38:04 PTAGE: 56 years EKG: Sinus tachycardia. Inferior T wave changes are nonspecific Borderline ECG PREVIOUS TRACING : 08/22/2016 09.35 DOCTOR: Mikel Cash Interpretating Date/Time 08/23/2016 11:39:49
[2016-08-23] MEDS ORDERED: RESP: ALBUTEROL 2.5 MG/3 ML NEB (PRN) INH (14:00)
[2016-08-23] MEDS: RESP: LEVALBUTEROL HYDROCHLORIDE 1.25 MG/3 ML NEB (PRN) NEB (14:38)
--- NOTE | 2016-08-23 17:36 | RADRPT ---
EXAM DATE/TIME: 08/23/2016 10:12 [facility] COMPARISON: ABDOMEN KUB ONLY, August 22, 2016, 9:55. INDICATIONS : Post op sigmoid surgery. Check anastomosis. FLUORO TIME: 1.1 minutes IMAGE COUNT: 13 CONTRAST: Gastroview MEDICAL HISTORY : Chronic obstructive pulmonary disease. SURGICAL HISTORY : Sigmoid surgery for diverticulitis. ENCOUNTER: Initial ACUITY: 3 days PAIN SCORE: 0/10 LOCATION: Bilateral abdomen FINDINGS: Examination is limited because the patient is very short of breath and has a large body habitus. Gastrografin was gently instilled to the splenic flexure. There is no contrast extravasation evident. CONCLUSION: Anastomosis appears patent without extravasation. Aditya Rocha MD FACR on August 23, 2016 at 10:52 Board Certified Radiologist. This report was verified electronically.
[2016-08-23] MEDS: HEPARIN SODIUM - SQ 10,000 UNITS/ML VIAL SQ SCH (17:50)
--- NOTE | 2016-08-23 19:22 | HHI.PR ---
Subjective Remarks YOAA male with robotic surgery,COPD exac Using BIPAP still techypnoic gets anxious has abd distension Had Gastrograffin study, no anastomatic leak Objective Vital Signs Vital Signs Date Time Temp Pulse Resp B/P Pulse Ox O2 Delivery O2 Flow Rate FiO2 08/23/16 18:01 118 08/23/16 17:18 95 BiPAP 35 08/23/16 17:08 117 08/23/16 16:14 22 08/23/16 16:02 116 08/23/16 15:27 99.1 119 24 145/86 93 08/23/16 15:27 93 Bi-Pap 5.00 35 08/23/16 15:27 115 08/23/16 14:29 116 08/23/16 13:21 95 35 08/23/16 13:20 116 08/23/16 12:58 110 08/23/16 12:00 115 08/23/16 11:30 122 08/23/16 11:30 97.0 123 22 151/93 95 08/23/16 11:30 95 Bi-Pap 5.00 35 08/23/16 11:08 95 35 08/23/16 11:00 115 08/23/16 09:00 120 08/23/16 09:00 96 Simple Mask 6.00 08/23/16 08:30 96 Simple Mask 6.00 08/23/16 08:30 108 08/23/16 08:30 97.0 111 22 156/99 96 08/23/16 08:00 110 08/23/16 07:39 98.3 109 20 149/97 96 08/23/16 06:00 93 Bi-Pap 5.00 30 08/23/16 06:00 120 08/23/16 04:00 138 08/23/16 04:00 98.1 114 28 144/90 97 08/23/16 04:00 97 Simple Mask 8.00 08/23/16 01:23 94 BiPAP 35 08/23/16 01:23 94 35 08/23/16 00:00 123 08/23/16 00:00 95 Bi-Pap 5.00 30 08/23/16 00:00 100.3 123 30 144/90 95 08/22/16 22:00 144 08/22/16 20:00 114 08/22/16 20:00 99.6 114 40 159/93 87 08/22/16 20:00 87 Nasal Cannula 5.00 Humidified I/O 08/22/16 08/22/16 08/22/16 08/23/16 08/23/16 08/23/16 07:00 15:00 23:00 07:00 15:00 23:00 Intake Total 480 ml 700 ml 1254 ml 1090 ml Output Total 450 ml 350 ml 500 ml 900 ml 1650 ml Balance 30 ml 350 ml 754 ml -900 ml -560 ml Intake Oral 480 ml 200 ml 180 ml 240 ml IV Total 500 ml 1074 ml 850 ml Output Urine Total 450 ml 350 ml 500 ml 900 ml 1650 ml # Voids 2 # Bowel Movements 1 0 1 Result Diagram: 08/23/1661208/23/16612 Objective Remarks GENERAL: WBWN obese male, sob, anxious SKIN: Warm and dry. HEAD: Normocephalic. EYES: No scleral icterus. No injection or drainage. NECK: Supple, trachea midline. No JVD or lymphadenopathy. CARDIOVASCULAR: Regular rate and rhythm without murmurs, gallops, or rubs. RESPIRATORY: Breath sounds equal bilaterally. No accessory muscle use. exp rhonchi GASTROINTESTINAL: Abdomen soft, non-tender, nondistended. Abd distended MUSCULOSKELETAL: No cyanosis, or edema. BACK: Nontender without obvious deformity. No CVA tenderness. A/P Assessment and Plan Resp insuff COPD exac S/p robotic surgery Anxiety PLAN: Cont BIPAP Incrase PS15,PEEP 5,Fi02 35% ABG aerosol nebs IV Solumedrol Ativan Robbie Soto MD Aug 23, 2016 19:22
[2016-08-23 21:42] LABS: BLOOD GAS BASE EXCESS -1.9 mmol/L (-2-2); BLOOD GAS CARBOXYHEMOGLOBIN 1.2 % (0-4); BLOOD GAS HCO3 22 mmol/L (22-26); BLOOD GAS METHEMOGLOBIN 0.9 % (0-2); BLOOD GAS O2 HGB SATURATION 94 % (90-100); BLOOD GAS OXYGEN CONTENT 18.6 Vol % (12.0-20.0); BLOOD GAS PCO2 37 mmHg (38-42); BLOOD GAS PO2 88 mmHg (61-120); CRITICAL VALUE NO; TEMP CORR TO 98.6
[2016-08-23 21:43] LABS: DRAW SITE LT RADIAL; FIO2 45 %; NUMBER OF ARTERIAL PUNCTURES 1; OXYGEN DEVICE BiPAP; ULNAR PULSE PRESENT; VENT SETTINGS IPAP 15/EPAP 5
[2016-08-23 21:44] LABS: STAT NO
[2016-08-24] VITALS (17 sets, daily range): BP systolic 137–163; BP diastolic 83–95; PULSE 10–113; RESP 22–36; TEMP 97.6–98.9; O2SAT 92–98
[2016-08-24] MEDS: SODIUM CHLOR 0.9% 1000 ML INJ 1,000 ML IV SCH (05:23)
[2016-08-24] MEDS: METOCLOPRAMIDE HCL 10 MG/2 ML VIAL IV PUSH SCH ×3 (05:24→22:00)
[2016-08-24] MEDS: MORPHINE SULFATE 4 MG/ML INJ IV PRN ×3 (05:24→17:14)
[2016-08-24] MEDS: methylPREDNISolone SOD SUCC 40 MG/1 ML VIAL IV PUSH SCH ×3 (05:24→22:00)
[2016-08-24] MEDS: HEPARIN SODIUM - SQ 10,000 UNITS/ML VIAL SQ SCH ×2 (05:25→17:14)
[2016-08-24] MEDS: LORazepam 2 MG/ML VIAL IV PUSH PRN ×3 (06:37→18:59)
--- NOTE | 2016-08-24 08:13 | RADRPT ---
EXAM DATE/TIME: 08/24/2016 07:44 [facility] COMPARISON: ABDOMEN KUB ONLY, August 22, 2016, 9:55. INDICATIONS : Distention MEDICAL HISTORY : Hypertension. Renal disease, diabetes SURGICAL HISTORY : Colon resection. ENCOUNTER: Subsequent ACUITY: 4 - 6 days PAIN SCORE: 8/10 LOCATION: Bilateral Abdomen FINDINGS: Supine view of the abdomen was performed. Gaseous distention of multiple small bowel loops again seen . No abnormal masses, calcifications, or organomegaly is seen. The osseous structures are unremarka ble. CONCLUSION: Gaseous distention of multiple bowel loops possible ileus. Jony Miller MD on August 24, 2016 at 8:11 Board Certified Radiologist. This report was verified electronically.
[2016-08-24] MEDS: OXYBUTYNIN CHLORIDE 5 MG TAB PO SCH ×3 (08:16→13:54)
[2016-08-24] MEDS: PANTOPRAZOLE SODIUM 40 MG VIAL IVP SCH (08:17)
[2016-08-24] MEDS: SODIUM CHLORIDE 0.9% FLUSH 5 ML FLUSH IVF SCH ×2 (08:17→21:00)
[2016-08-24] MEDS: FUROSEMIDE 20 MG/2 ML VIAL IV PUSH SCH ×2 (08:17→21:00)
[2016-08-24] MEDS: ENALAPRILAT 2.5 MG/2 ML VIAL IV PRN (08:20)
--- NOTE | 2016-08-24 11:19 | HHI.PR ---
Subjective Remarks POD#5 s/p robotic LAR/SBR/ANNA MARIE Still with severe respiratory distress Sats maintaining Objective Vital Signs Date Time Temp Pulse Resp B/P Pulse Ox O2 Delivery O2 Flow Rate FiO2 08/24/16 10:00 103 08/24/16 08:00 10 08/24/16 08:00 98.3 112 36 163/85 96 08/24/16 07:49 96 Non-Rebreather 15.00 08/24/16 07:00 96 Non-Rebreather 100 08/24/16 06:00 113 08/24/16 05:22 95 Non-Rebreather 15.00 08/24/16 04:00 98.2 103 25 151/90 95 08/24/16 04:00 103 08/24/16 03:59 95 40 08/24/16 02:00 106 08/24/16 01:54 97 35 08/24/16 00:00 108 08/24/16 00:00 98.9 108 25 154/89 92 08/23/16 22:00 112 08/23/16 21:08 94 BiPAP 45 08/23/16 21:08 94 45 08/23/16 21:05 93 50 08/23/16 21:00 98.6 118 29 156/89 94 08/23/16 21:00 118 08/23/16 21:00 94 Bi-Pap 45 08/23/16 19:10 98.8 113 24 142/84 96 08/23/16 18:01 118 08/23/16 17:18 95 BiPAP 35 08/23/16 17:08 117 08/23/16 16:14 22 08/23/16 16:02 116 08/23/16 15:27 99.1 119 24 145/86 93 08/23/16 15:27 93 Bi-Pap 5.00 35 08/23/16 15:27 115 08/23/16 14:29 116 08/23/16 13:21 95 35 08/23/16 13:20 116 08/23/16 12:58 110 08/23/16 12:00 115 08/23/16 11:30 122 08/23/16 11:30 97.0 123 22 151/93 95 08/23/16 11:30 95 Bi-Pap 5.00 35 I/O 3/108/23/16 08/23/16 08/24/16 08/24/16 08/24/16 07:00 15:00 23:00 07:00 15:00 23:00 Intake Total 1254 ml 2408 ml 485 ml Output Total 500 ml 900 ml 2410 ml 875 ml Balance 754 ml -900 ml -2 ml -390 ml Intake Oral 180 ml 240 ml IV Total 1074 ml 2168 ml 485 ml Output Urine Total 500 ml 900 ml 2410 ml 875 ml # Bowel Movements 0 1 0 Result Diagram: 08/23/1613 08/23/16612 Objective Remarks Abdomen still distended, mildly tender Right abdominal wall erythema about the same RLQ port site draining serous fluid - cultured Assessment and Plan Assessment and Plan Gastraografin enema without leak at anastomosis ATtempted to place NGT - unsuccessful Check labs, if kidney function improved - CT Scan Continue to work on diuresis Wheezing audibly, change nebulizer to scheduled Elana Moffett MD Aug 24, 2016 11:19
[2016-08-24] MEDS ORDERED: SODIUM CHLORID 0.9% 500 ML INJ 500 ML IV ONE (12:00)
[2016-08-24] MEDS: RESP: LEVALBUTEROL HYDROCHLORIDE 1.25 MG/3 ML NEB (SCH) NEB ×3 (12:00→20:00)
[2016-08-24] MEDS ORDERED: PROPOFOL 200 MG/20 ML AMP IV ONE (12:00)
[2016-08-24] MEDS ORDERED: LACTATED RINGER'S 1000 ML INJ 1,000 ML IV ONE (12:00)
[2016-08-24 12:34] LABS: AUTOMATED NEUTROPHIL # 13.7 TH/MM3 (1.8-7.7); BASOPHIL % 0.2 % (0.0-2.0); LYMPH % 2.5 % (9.0-44.0); LYMPHOCYTE # 0.4 TH/MM3 (1.0-4.8); MEAN CELL VOLUME 86.7 FL (80.0-100.0); MEAN CORPUSCULAR HEMOGLOBIN 28.4 PG (27.0-34.0); MEAN CORPUSCULAR HGB CONC 32.8 % (32.0-36.0); MONO % 8.7 % (0.0-8.0); NEUT % 88.6 % (16.0-70.0); PLATELET COUNT 543 TH/MM3 (150-450); RED BLOOD COUNT 4.73 MIL/MM3 (4.50-5.90); RED CELL DISTRIBUTION WIDTH 14.3 % (11.6-17.2); WHITE BLOOD COUNT 15.5 TH/MM3 (4.0-11.0)
[2016-08-24 12:35] LABS: HEMO FLAGS AUTO DIFF
[2016-08-24] MEDS: VANCOMYCIN INJ 1,500 MG in SODIUM CHLORID 0.9% 500 ML INJ 500 ML IV SCH (12:53)
[2016-08-24 13:03] LABS: BICARBONATE 27.7 MEQ/L (21.0-32.0); POTASSIUM 4.5 MEQ/L (3.5-5.1)
[2016-08-24 13:27] LABS: BANDS 41 % (0-6); METAMYELOCYTES 6 % (0-1); NEUTROPHIL # MANUAL DIFF 12.9 TH/MM3 (1.8-7.7); POLYS (SEG NEUTROPHILS) 36 % (16-70); WBC DIFF SAMPLE 100
[2016-08-24 13:28] LABS: PLATELET ESTIMATE SMEAR HIGH (NORMAL); PLATELET MORPHOLOGY ENLARGED (NORMAL); SCAN/DIFF FINAL DIFF MANUAL
[2016-08-24] MEDS ORDERED: EPINEPHrine HCL (1:10,000) 1 MG/10 ML SYRINGE ONE (17:11)
[2016-08-24] MEDS ORDERED: LIDOCAINE HCL 2% 100 MG/5 ML SYRINGE ONE (17:12)
[2016-08-24] MEDS ORDERED: ATROPINE SULFATE 1 MG/10 ML SYRINGE ONE (17:12)
--- NOTE | 2016-08-24 17:58 | RADRPT ---
EXAM DATE/TIME: 08/24/2016 17:30 [facility] COMPARISON: GASTROGRAFIN ENEMA, August 23, 2016, 10:12. INDICATIONS : Abdominal pain. Follow up laparoscopy. ORAL CONTRAST: No oral contrast ingested. RADIATION DOSE: 15.34 CTDIvol (mGy) MEDICAL HISTORY : Hypertension. Chronic obstructive pulmonary disease. Diverticulitis.Chronic kidney disease. SURGICAL HISTORY : Tonsillectomy. ENCOUNTER: Subsequent ACUITY: 2 days PAIN SCALE: 6/10 LOCATION: Bilateral lower quadrant TECHNIQUE: Volumetric scanning of the abdomen and pelvis was performed. Using automated exposure control and ad justment of the mA and/or kV according to patient size, radiation dose was kept as low as reasonably achievable to obtain optimal diagnostic quality images. FINDINGS: CT scan of the abdomen and pelvis was performed without contrast. There is contrast remaining in the colon from a Gastroview enema. Arising from the superior aspect of the anastomosis is a very tiny fis cari tract measuring between 5-9 mm in dimension decompressing superiorly where contrast is identifie d extraluminally. The contrast collection measures 8.5 x 6.2 cm across. The fistulous tract is ident ified from image 79 to image 76 extending superior into the right of the anastomosis. There is a significant amount of free air and free fluid throughout the abdomen. The small bowel is d istended. The stomach is distended. The unenhanced liver, spleen, pancreas, adrenal glands, kidneys a re unremarkable. The fistula tract is identified on the coronal images beginning at image [id number]. CONCLUSION: There is a fistulous tract arising from the superior aspect of the anastomosis causing Gastroview to leak into the right mid pelvis. There is a significant amount of free fluid or free air surrounding t he liver and throughout the abdomen. This case was discussed in detail with Dr. Moffett. Mikel Nguyen MD on August 24, 2016 at 17:53 Board Certified Radiologist. This report was verified electronically.
--- NOTE | 2016-08-24 18:35 | HHI.PR ---
Subjective Remarks YOAA male with robotic surgery,COPD exac still techypnoic gets anxious has abd distension Used BIPAP Now on NRB, gets tired on NRB Objective Vital Signs Vital Signs Date Time Temp Pulse Resp B/P Pulse Ox O2 Delivery O2 Flow Rate FiO2 08/24/16 18:00 108 08/24/16 16:00 97.6 100 32 147/90 98 08/24/16 16:00 100 08/24/16 14:00 100 08/24/16 12:00 98.1 103 22 137/83 95 08/24/16 12:00 103 08/24/16 10:00 103 08/24/16 08:00 10 08/24/16 08:00 98.3 112 36 163/85 96 08/24/16 07:49 96 Non-Rebreather 15.00 08/24/16 07:00 96 Non-Rebreather 100 08/24/16 06:00 113 08/24/16 05:22 95 Non-Rebreather 15.00 08/24/16 04:00 98.2 103 25 151/90 95 08/24/16 04:00 103 08/24/16 03:59 95 40 08/24/16 02:00 106 08/24/16 01:54 97 35 08/24/16 00:00 108 08/24/16 00:00 98.9 108 25 154/89 92 08/23/16 22:00 112 08/23/16 21:08 94 BiPAP 45 08/23/16 21:08 94 45 08/23/16 21:05 93 50 08/23/16 21:00 98.6 118 29 156/89 94 08/23/16 21:00 118 08/23/16 21:00 94 Bi-Pap 45 08/23/16 19:10 98.8 113 24 142/84 96 I/O 08/23/16 08/23/16 08/23/16 08/24/16 08/24/16 08/24/16 07:00 15:00 23:00 07:00 15:00 23:00 Intake Total 1254 ml 2408 ml 485 ml 414 ml Output Total 500 ml 900 ml 2410 ml 875 ml 1300 ml Balance 754 ml -900 ml -2 ml -390 ml -886 ml Intake Oral 180 ml 240 ml IV Total 1074 ml 2168 ml 485 ml 414 ml Output Urine Total 500 ml 900 ml 2410 ml 875 ml 1300 ml # Bowel Movements 0 1 0 0 Result Diagram: 08/24/16 1152 08/24/16 1152 Objective Remarks GENERAL: WBWN obese male, sob, anxious SKIN: Warm and dry. HEAD: Normocephalic. EYES: No scleral icterus. No injection or drainage. NECK: Supple, trachea midline. No JVD or lymphadenopathy. CARDIOVASCULAR: Regular rate and rhythm without murmurs, gallops, or rubs. RESPIRATORY: Breath sounds equal bilaterally. No accessory muscle use. exp rhonchi GASTROINTESTINAL: Abdomen soft, non-tender, nondistended. Abd distended MUSCULOSKELETAL: No cyanosis, or edema. BACK: Nontender without obvious deformity. No CVA tenderness. A/P Assessment and Plan Resp insuff COPD exac S/p robotic surgery Anxiety PLAN: Cont BIPAP PS15,PEEP 5,Fi02 35% aerosol nebs IV Solumedrol Ativan prn Nebuliser rx qid and prn Robbie Renteria MD Aug 24, 2016 18:35
[2016-08-24] MEDS ORDERED: ceFAZolin 2 GM PREMIX 50 ML ONE (19:33)
[2016-08-24] MEDS ORDERED: GLUCAGON 1 MG/ML VIAL ONE (19:34)
[2016-08-24] MEDS ORDERED: ceFAZolin INJ 1,000 MG VIAL ONE (19:34)
[2016-08-24] MEDS ORDERED: metroNIDAZOLE 500 MG INJ 100 ML IV ONE (20:43)
[2016-08-24 21:48] LABS: BLOOD GAS CARBOXYHEMOGLOBIN 1.2 % (0-4); BLOOD GAS HCO3 24 mmol/L (22-26); BLOOD GAS METHEMOGLOBIN 1.1 % (0-2); BLOOD GAS O2 HGB SATURATION 93 % (90-100); BLOOD GAS OXYGEN CONTENT 20.8 Vol % (12.0-20.0); BLOOD GAS PCO2 45 mmHg (38-42); BLOOD GAS PO2 90 mmHg (61-120); BLOOD GAS TOTAL HGB 15.8 G/DL (12.0-16.0); CRITICAL VALUE NO; FIO2 60 %; OXYGEN DEVICE VENTILATOR; TEMP CORR TO 98.6; VENT SETTINGS OR
[2016-08-24 21:49] LABS: STAT YES
[2016-08-24] MEDS ORDERED: fentaNYL CITRATE 250 MCG/5 ML AMP ONE ×2 (22:16)
[2016-08-24] MEDS ORDERED: MIDAZOLAM HCL 2 MG/2 ML VIAL ONE (23:10)
--- NOTE | 2016-08-24 23:41 | RADRPT ---
EXAM DATE/TIME: 08/24/2016 23:23 [facility] COMPARISON: CHEST SINGLE AP, August 22, 2016, 6:02. INDICATIONS : Post intubation. MEDICAL HISTORY : Chronic obstructive pulmonary disease. Diverticulitis. SURGICAL HISTORY : Colon resection. ENCOUNTER: Initial ACUITY: 1 day PAIN SCORE: Non-responsive. LOCATION: Bilateral chest FINDINGS: Endotracheal tube is present with tip 3-4 cm above the lj. Nasogastric tube descends into the sto mach. Left subclavian central line is present in good position. There is mild infiltrate or atelectas is in the lung bases. Visualized cardiomediastinal contours are grossly satisfactory. CONCLUSION: Satisfactory support line and tube positioning. Mild basilar infiltrates Claude Rosario MD on August 24, 2016 at 23:38 Board Certified Radiologist. This report was verified electronically.
[2016-08-24] MEDS: fentaNYL 2,500 MCG/NS 250 ML IV SCH (23:49)
[2016-08-24] MEDS: NS + KCL 20 MEQ INJ 1,000 ML IV SCH (23:49)
[2016-08-24] MEDS: LEVOFLOXACIN 750 MG PREMIX INJ 150 ML IV SCH (23:50)
[2016-08-24] MEDS: PROPOFOL 1000 MG/100 ML IV SCH (23:59)
[2016-08-25] VITALS (18 sets, daily range): BP systolic 90–159; BP diastolic 57–81; PULSE 98–113; RESP 14–22; TEMP 98–100.4; O2SAT 92–97
--- NOTE | 2016-08-25 01:16 | PD.CONS ---
[facility] Service Critical Care Medicine Consult Requested By Dr. Moffett Reason for Consult Postoperative acute hypoxemic respiratory failure Acute COPD exacerbation Probable healthcare associated pneumonia Status post exploratory laparotomy, I&D, loop ileostomy Primary Care Physician Corby Alves MD History of Present Illness Patient is a 58-year-old male with past medical history significant COPD who, on 08/18/16, underwent Laparoscopic robotic extensive lysis of adhesions, low anterior resection and small bowel resection. Apparently he was brought in by Dr. Moffett for Diverticulitis. Patient has a history of hypertension, COPD, and continues to smoke one pack of cigarettes a day. Postoperatively patient became progressively short of breath. Pulmonary was consulted on 08/21/16 as the patient was becoming more hypoxemic requiring BiPAP. CT of the chest PE protocol did not show any pulmonary embolism. Patient was placed on breathing treatments and IV Solu-Medrol 40 mg every [address] Renteria. Today a.m. patient was on 100% nonrebreather. Patient was diagnosed with an anastomotic leak today and was taken back to the OR by Dr. Moffett. He underwent exploratory laparotomy, I&D and loop ileostomy today. Postop patient remained hypoxemic requiring 70% oxygen, and hence was left intubated and critical care medicine was consulted. I evaluated the patient in ICU. He remains hypoxemic, FiO2 70%. Chest x-ray shows bibasilar mild infiltrates. On sedation lightening patient became very hypertensive, not following commands probably secondary to residual NM blockade received while being transported to ICU. Patient is currently receiving vancomycin Levaquin and Flagyl per Dr. Moffett. I have added cefepime to cover for Pseudomonas. I am holding Solu-Medrol due to anastomotic leak, also per Dr. Moffett request. Review of Systems ROS Limitations: Intubated Past Family Social History Allergies: Coded Allergies: No Known Allergies (Verified , 08/18/16) Past Medical History Diverticulitis History of COPD, Hypertension, Anxiety disorder, BPH Past Surgical History Tonsillectomy Reported Medications Ativan 0.5 mg q 3-hour p.r.n. Reglan 10 mg q. 8-hour. Xopenex nebulizer treatment Lasix 20 mg twice a day, Protonix 40 mg a day Symbicort Active Ordered Medications Reviewed Family History Unable to obtain Social History Smokes one packs of cigarettes daily Physical Exam Vital Signs Vital Signs Date Time Temp Pulse Resp B/P Pulse Ox O2 Delivery O2 Flow Rate FiO2 08/25/16 00:45 50 08/25/16 00:00 107 08/25/16 00:00 98.0 107 14 133/81 96 159/79 08/24/16 23:15 70 08/24/16 22:50 97 70 08/24/16 20:00 97.8 106 26 150/95 92 08/24/16 20:00 106 08/24/16 19:00 98 08/24/16 19:00 93 Bi-Pap 40 08/24/16 18:00 108 08/24/16 16:00 97.6 100 32 147/90 98 08/24/16 16:00 100 08/24/16 14:00 100 08/24/16 12:00 98.1 103 22 137/83 95 08/24/16 12:00 103 08/24/16 10:00 103 08/24/16 08:00 10 08/24/16 08:00 98.3 112 36 163/85 96 08/24/16 07:49 96 Non-Rebreather 15.00 08/24/16 07:00 96 Non-Rebreather 100 08/24/16 06:00 113 08/24/16 05:22 95 Non-Rebreather 15.00 08/24/16 04:00 98.2 103 25 151/90 95 08/24/16 04:00 103 08/24/16 03:59 95 40 08/24/16 02:00 106 08/24/16 01:54 97 35 Physical Exam GENERAL: Obese well-developed male who is intubated heavily sedated SKIN: Erythema of the skin on right lower abdomen HEAD: Atraumatic. Normocephalic. EYES: Pupils equal round and reactive. ENT: Orotracheally intubated NECK: Trachea midline. No JVD or lymphadenopathy. Left subclavian central line in place CARDIOVASCULAR: Regular rate and rhythm without murmurs, gallops, or rubs. RESPIRATORY: Breath sounds equal bilaterally. Minimal expiratory wheezing GASTROINTESTINAL: Abdomen distended. Midline incision clean and intact. Bilateral SERGEI drains at the flanks with sero-sanguinous output. Ileostomy with sanguinous output. Erythema of the skin lateral to ileostomy. MUSCULOSKELETAL: Extremities without clubbing, cyanosis, or edema. NEUROLOGICAL: Intubated heavily sedated postop, administration neuromuscular blockade by anesthesia prior to transportation to ICU limits neuro exam. Laboratory Laboratory Tests Test 08/24/16 08/24/16 11:52 21:36 White Blood Count 15.5 Red Blood Count 4.73 Hemoglobin 13.5 Hematocrit 41.0 Mean Corpuscular Volume 86.7 Mean Corpuscular Hemoglobin 28.4 Mean Corpuscular Hemoglobin 32.8 Concent Red Cell Distribution Width 14.3 Platelet Count 543 Mean Platelet Volume 8.1 Neutrophils (%) (Auto) 88.6 Lymphocytes (%) (Auto) 2.5 Monocytes (%) (Auto) 8.7 Eosinophils (%) (Auto) 0.0 Basophils (%) (Auto) 0.2 Neutrophils # (Auto) 13.7 Lymphocytes # (Auto) 0.4 Monocytes # (Auto) 1.3 Eosinophils # (Auto) 0.0 Basophils # (Auto) 0.0 CBC Comment AUTO DIFF Differential Total Cells 100 Counted Neutrophils % (Manual) 36 Band Neutrophils % 41 Lymphocytes % 4 Monocytes % 13 Neutrophils # (Manual) 12.9 Metamyelocytes 6 Differential Comment FINAL DIFF MANUAL Platelet Estimate HIGH Platelet Morphology Comment ENLARGED Sodium Level 140 Potassium Level 4.5 Chloride Level 103 Carbon Dioxide Level 27.7 Anion Gap 9 Blood Urea Nitrogen 48 Creatinine 1.26 Estimat Glomerular Filtration 59 Rate Random Glucose 147 Calcium Level 9.9 Blood Gas Puncture Site DRAWN IN OR Blood Gas Patient Temperature 98.6 Blood Gas HCO3 24 Blood Gas Base Excess -1.0 Blood Gas Oxygen Saturation 93 Arterial Blood pH 7.34 Arterial Blood Partial 45 Pressure CO2 Arterial Blood Partial 90 Pressure O2 Arterial Blood Oxygen Content 20.8 Arterial Blood 1.2 Carboxyhemoglobin Arterial Blood Methemoglobin 1.1 Blood Gas Hemoglobin 15.8 Oxygen Delivery Device VENTILATOR Blood Gas Ventilator Setting OR Blood Gas Inspired Oxygen 60 Date/Time Procedure Status Source Growth 08/24/16 11:15 Gram Stain - Final Resulted Wound Abdomen 08/24/16 11:15 Wound Culture Resulted Wound Abdomen Pending Result Diagram: 08/24/16 1152 08/24/16 1152 Imaging Reviewed Septic Shock Reassessment Heart: Regular rate and rhythm Lungs: Course Skin: Warm Peripheral Pulses: Bounding Right Radial Bounding Left Radial Assessment and Plan Assessment and Plan ASSESSMENT: Postoperative acute hypoxemic respiratory failure Acute COPD exacerbation Probable healthcare associated pneumonia Status post exploratory laparotomy, I&D, loop ileostomy 08/24/16 s/p Laparoscopic robotic extensive ANNA MARIE, robotic LAR and small bowel resection History of diverticulitis History of COPD History of hypertension PLAN: NEURO: -Sedation and pain control with propofol and fentanyl infusions -Start daily sedation vacation in 24 hours RESP: Acute hypoxemic respiratory failure COPD exacerbation Probable healthcare associated pneumonia -Continue ACV 18/600/10, titrate FiO2 to keep saturation above 90 -DuoNeb every 4 hours scheduled and when necessary, Symbicort 2 puffs every 12 -Broad-spectrum antibiotics as below -Start spontaneous breathing trials in 24 hours CV: Hypertension -IV labetalol as necessary for SBP more than 170 -Check lactic acid. Continue normal saline at 150 ml per hour -Patient was receiving IV Lasix 40 mg every 12, hold at this time due to sepsis , and postop GI: Laparoscopic robotic ANNA MARIE, robotic LAR and small bowel resection with anastomotic leak History of diverticulitis -Status post exploratory laparotomy, I&D, loop ileostomy 08/24/16 -Postoperative management per Dr. Moffett. Broad-spectrum antibiotics as below : -Monitor renal function closely. Mg catheter. -Hold Lasix. Continue normal saline at 150 ML per hour ID: Anastomotic leak Sepsis Probable HCAP -IV vancomycin, Flagyl and Levaquin per Dr. Moffett. Add cefepime for pseudomonal coverage -Follow up on blood sputum and wound cultures HEME: -Monitor CBC, CMP, coags ENDO: -Electrolyte protocol if needed PROPH: -Bilateral lower extremity SCDs. Heparin subcutaneous for DVT prophylaxis. Protonix for GI prophylaxis LINES: -Left subclavian central line placed in the OR CC time 40 min Code Status Full Discussed Condition With Jeferson Ang MD Aug 25, 2016 01:15
[2016-08-25] MEDS: BUDESONIDE-FORMOTEROL 160/4.5 MCG INHALER INH SCH ×3 (01:30→20:31)
[2016-08-25 01:31] LABS: BLOOD GAS BASE EXCESS -2.5 mmol/L (-2-2); BLOOD GAS CARBOXYHEMOGLOBIN 0.6 % (0-4); BLOOD GAS HCO3 24 mmol/L (22-26); BLOOD GAS O2 HGB SATURATION 93 % (90-100); BLOOD GAS OXYGEN CONTENT 19.7 Vol % (12.0-20.0); BLOOD GAS PCO2 54 mmHg (38-42); BLOOD GAS PO2 89 mmHg (61-120); TEMP CORR TO 98.6
[2016-08-25 01:33] LABS: CRITICAL VALUE YES; DRAW SITE ART LINE; FIO2 50 %; OXYGEN DEVICE VENTILATOR; VENT SETTINGS PRVC
[2016-08-25 01:43] LABS: AUTOMATED NEUTROPHIL # 14.9 TH/MM3 (1.8-7.7); BASOPHIL % 0.2 % (0.0-2.0); EOSINOPHIL # 0.1 TH/MM3 (0-0.4); EOSINOPHIL % 0.4 % (0.0-4.0); HEMATOCRIT 44.2 % (39.0-51.0); LYMPH % 2.4 % (9.0-44.0); LYMPHOCYTE # 0.4 TH/MM3 (1.0-4.8); MEAN CORPUSCULAR HGB CONC 33.3 % (32.0-36.0); MONO % 5.8 % (0.0-8.0); NEUT % 91.2 % (16.0-70.0); PLATELET COUNT 532 TH/MM3 (150-450); RED BLOOD COUNT 5.08 MIL/MM3 (4.50-5.90); RED CELL DISTRIBUTION WIDTH 14.2 % (11.6-17.2); WHITE BLOOD COUNT 16.4 TH/MM3 (4.0-11.0)
[2016-08-25 01:44] LABS: HEMO FLAGS AUTO DIFF
[2016-08-25 02:08] LABS: BICARBONATE 27.1 MEQ/L (21.0-32.0); POTASSIUM 4.7 MEQ/L (3.5-5.1)
[2016-08-25] MEDS: CEFEPIME INJ 2,000 MG in SODIUM CHLORIDE 0.9% INJ 100 ML IV SCH ×3 (02:11→17:02)
[2016-08-25 02:25] LABS: BANDS 55 % (0-6); CORRECTED NUCLEATED RBC 1 /100 WBC (0-0); METAMYELOCYTES 2 % (0-1); MYELOCYTES 1 % (0-0); NEUTROPHIL # MANUAL DIFF 15.6 TH/MM3 (1.8-7.7); PLATELET ESTIMATE SMEAR HIGH (NORMAL); PLATELET MORPHOLOGY NORMAL (NORMAL); POLYS (SEG NEUTROPHILS) 37 % (16-70); SCAN/DIFF FINAL DIFF MANUAL; TOXIC GRANULATION 1+ (NORMAL); TOXIC VACUOLATION PRESENT (NONE SEEN); WBC DIFF SAMPLE 100
[2016-08-25 02:26] LABS: DOHLE BODIES PRESENT (NONE SEEN)
[2016-08-25] MEDS: metroNIDAZOLE 500 MG INJ 100 ML IV SCH ×4 (02:47→20:33)
[2016-08-25] MEDS: PROPOFOL 1000 MG/100 ML IV SCH ×3 (02:48→23:08)
[2016-08-25] MEDS: RESP: ALBUTEROL 2.5 MG/3 ML NEB (SCH) INH ×4 (03:11→20:00)
[2016-08-25] MEDS: ENALAPRILAT 2.5 MG/2 ML VIAL IV PRN (04:47)
[2016-08-25] MEDS: MORPHINE SULFATE 4 MG/ML INJ IV PRN ×2 (04:58→23:09)
[2016-08-25] MEDS: LORazepam 2 MG/ML VIAL IV PUSH PRN (05:06)
[2016-08-25] MEDS ORDERED: SODIUM BICARBONATE 8.4% INJ 50 MEQ/50 ML SYR IV PUSH ONE (05:15)
[2016-08-25 05:17] LABS: BLOOD GAS BASE EXCESS -3.7 mmol/L (-2-2); BLOOD GAS CARBOXYHEMOGLOBIN 0.7 % (0-4); BLOOD GAS HCO3 22 mmol/L (22-26); BLOOD GAS METHEMOGLOBIN 0.9 % (0-2); BLOOD GAS O2 HGB SATURATION 94 % (90-100); BLOOD GAS OXYGEN CONTENT 20.1 Vol % (12.0-20.0); BLOOD GAS PCO2 49 mmHg (38-42); BLOOD GAS PO2 94 mmHg (61-120); BLOOD GAS TOTAL HGB 15.2 G/DL (12.0-16.0); TEMP CORR TO 98.6
[2016-08-25 05:18] LABS: CRITICAL VALUE YES; OXYGEN DEVICE VENTILATOR
[2016-08-25 05:19] LABS: DRAW SITE ART LINE; FIO2 50 %; STAT NO; VENT SETTINGS PRVC
[2016-08-25] MEDS: NS + KCL 20 MEQ INJ 1,000 ML IV SCH ×3 (05:28→12:06)
[2016-08-25 05:29] LABS: AUTOMATED NEUTROPHIL # 18.5 TH/MM3 (1.8-7.7); BASOPHIL % 0.1 % (0.0-2.0); HEMATOCRIT 42.5 % (39.0-51.0); LYMPH % 2.9 % (9.0-44.0); LYMPHOCYTE # 0.6 TH/MM3 (1.0-4.8); MEAN CELL VOLUME 87.7 FL (80.0-100.0); MEAN CORPUSCULAR HEMOGLOBIN 28.3 PG (27.0-34.0); MEAN CORPUSCULAR HGB CONC 32.3 % (32.0-36.0); MONO % 8.5 % (0.0-8.0); NEUT % 88.5 % (16.0-70.0); PLATELET COUNT 456 TH/MM3 (150-450); RED BLOOD COUNT 4.85 MIL/MM3 (4.50-5.90); RED CELL DISTRIBUTION WIDTH 14.6 % (11.6-17.2)
[2016-08-25 05:30] LABS: HEMO FLAGS AUTO DIFF
[2016-08-25] MEDS ORDERED: SODIUM CHLOR 0.9% 250 ML INJ 250 ML IV SCH (05:30)
[2016-08-25] MEDS ORDERED: SODIUM BICARBONATE 8.4% SOLN 50 MEQ/50 ML VIAL IV SCH (05:30)
[2016-08-25] MEDS: METOCLOPRAMIDE HCL 10 MG/2 ML VIAL IV PUSH SCH ×3 (05:43→23:07)
[2016-08-25] MEDS: HEPARIN SODIUM - SQ 10,000 UNITS/ML VIAL SQ SCH ×2 (06:45→18:50)
[2016-08-25 07:10] LABS: BANDS 24 % (0-6); CORRECTED NUCLEATED RBC 1 /100 WBC (0-0); METAMYELOCYTES 8 % (0-1); MYELOCYTES 3 % (0-0); NEUTROPHIL # MANUAL DIFF 18.9 TH/MM3 (1.8-7.7); POLYS (SEG NEUTROPHILS) 55 % (16-70); WBC DIFF SAMPLE 100
[2016-08-25 07:16] LABS: DOHLE BODIES PRESENT (NONE SEEN); PLATELET ESTIMATE SMEAR HIGH (NORMAL); TOXIC GRANULATION 1+ (NORMAL); TOXIC VACUOLATION PRESENT (NONE SEEN)
[2016-08-25 07:17] LABS: SCAN/DIFF FINAL DIFF MANUAL
[2016-08-25 07:22] LABS: PLATELET MORPHOLOGY ENLARGED (NORMAL)
[2016-08-25] MEDS ORDERED: SODIUM CHLOR 0.9% 1000 ML INJ 1,000 ML IV SCH (07:45)
[2016-08-25] MEDS: RESP: ALBUTEROL 2.5 MG/IPRATROPIUM 0.5 MG NEB (PRN) NEB ×2 (07:51→20:06)
[2016-08-25 08:23] LABS: BLOOD GAS BASE EXCESS -6.2 mmol/L (-2-2); BLOOD GAS CARBOXYHEMOGLOBIN 0.6 % (0-4); BLOOD GAS HCO3 20 mmol/L (22-26); BLOOD GAS METHEMOGLOBIN 0.9 % (0-2); BLOOD GAS O2 HGB SATURATION 96 % (90-100); BLOOD GAS OXYGEN CONTENT 19.9 Vol % (12.0-20.0); BLOOD GAS PCO2 45 mmHg (38-42); BLOOD GAS PO2 113 mmHg (61-120); BLOOD GAS TOTAL HGB 14.7 G/DL (12.0-16.0); CRITICAL VALUE YES; TEMP CORR TO 98.6
[2016-08-25] MEDS: CHLORHEXIDINE 0.12% (ORAL KIT) 15 ML CUP MT SCH ×2 (08:23→20:31)
[2016-08-25 08:24] LABS: DRAW SITE ALINE; FIO2 50 %; OXYGEN DEVICE VENT; STAT NO; VENT SETTINGS PRVC/18/600/10PEEP
[2016-08-25] MEDS: PANTOPRAZOLE SODIUM 40 MG VIAL IVP SCH (08:24)
[2016-08-25] MEDS: SODIUM CHLORIDE 0.9% FLUSH 5 ML FLUSH IVF SCH ×2 (08:24→20:36)
[2016-08-25] MEDS: fentaNYL 2,500 MCG/NS 250 ML IV SCH ×2 (08:25→23:09)
[2016-08-25] MEDS ORDERED: PHARMACY ORDERED LAB XX ONE (11:45)
[2016-08-25] MEDS: VANCOMYCIN INJ 1,500 MG in SODIUM CHLORID 0.9% 500 ML INJ 500 ML IV SCH (12:06)
[2016-08-25 12:12] LABS: HEMATOCRIT 43.6 % (39.0-51.0); MEAN CELL VOLUME 87.3 FL (80.0-100.0); MEAN CORPUSCULAR HEMOGLOBIN 28.7 PG (27.0-34.0); MEAN CORPUSCULAR HGB CONC 32.9 % (32.0-36.0); PLATELET COUNT 355 TH/MM3 (150-450); RED CELL DISTRIBUTION WIDTH 14.6 % (11.6-17.2); REVIEW FLAG FINAL; WHITE BLOOD COUNT 23.2 TH/MM3 (4.0-11.0)
[2016-08-25 12:47] LABS: ALKALINE PHOSPHATASE 85 U/L (45-117); ALT (GPT) 17 U/L (12-78); ANION GAP 11 MEQ/L (5-15); AST (GOT) 39 U/L (15-37); BICARBONATE 22.5 MEQ/L (21.0-32.0); BLOOD UREA NITROGEN 67 MG/DL (7-18); CHLORIDE 112 MEQ/L (98-107); GLOMERULAR FILTRATION RATE 32 ML/MIN (>89); SODIUM (NA) 145 MEQ/L (136-145); TOTAL BILIRUBIN ADULT 0.8 MG/DL (0.2-1.0)
[2016-08-25] MEDS ORDERED: INSULIN HUMAN REGULAR 1,000 UNITS/10 ML VIAL IV PUSH ONE (13:00)
[2016-08-25] MEDS ORDERED: CALCIUM GLUCONATE INJ 2 GM in DEXTROSE 5% IN WATER 100ML INJ 100 ML IV ONE ×2 (13:00)
[2016-08-25] MEDS ORDERED: DEXTROSE 50% IN WATER 50 ML VIAL(D50) IV ONE (13:00)
[2016-08-25] MEDS ORDERED: SODIUM BICARBONATE 8.4% SOLN 50 MEQ/50 ML VIAL IV ONE (13:00)
[2016-08-25 13:44] LABS: MAGNESIUM 2.4 MG/DL (1.5-2.5)
[2016-08-25] MEDS ORDERED: BUMETANIDE INJ 1 MG/4 ML VIAL IV PUSH ONE (14:45)
[2016-08-25] MEDS ORDERED: SODIUM BICARBONATE 8.4% INJ 150 MEQ in WATER STERILE FOR INJ 850 ML IV SCH (15:00)
[2016-08-25] MEDS ORDERED: FUROSEMIDE 20 MG/2 ML VIAL IV PUSH ONE (15:00)
[2016-08-25] MEDS ORDERED: SODIUM CHLORID 0.9% 500 ML INJ 500 ML IV ONE (15:00)
[2016-08-25 15:11] LABS: BLOOD GAS BASE EXCESS -5.3 mmol/L (-2-2); BLOOD GAS CARBOXYHEMOGLOBIN 0.7 % (0-4); BLOOD GAS HCO3 20 mmol/L (22-26); BLOOD GAS METHEMOGLOBIN 0.9 % (0-2); BLOOD GAS O2 HGB SATURATION 97 % (90-100); BLOOD GAS OXYGEN CONTENT 18.6 Vol % (12.0-20.0); BLOOD GAS PCO2 43 mmHg (38-42); BLOOD GAS PO2 131 mmHg (61-120); BLOOD GAS TOTAL HGB 13.5 G/DL (12.0-16.0); TEMP CORR TO 98.6
[2016-08-25 15:13] LABS: CRITICAL VALUE YES; OXYGEN DEVICE VENT
[2016-08-25 15:16] LABS: FIO2 50 %; VENT SETTINGS PRVC/22/600/10/
[2016-08-25 15:17] LABS: DRAW SITE ALINE; STAT NO
[2016-08-25] MEDS ORDERED: SODIUM CHLOR 0.9% 1000 ML INJ 1,000 ML IV PRN ×2 (15:48)
[2016-08-25] MEDS ORDERED: ONDANSETRON HCL 4 MG/2 ML VIAL IV PRN (16:00)
[2016-08-25] MEDS ORDERED: NITROGLYCERIN 0.4 MG SL 25 TABS/BTL SL PRN (16:00)
[2016-08-25] MEDS ORDERED: diphenhydrAMINE HCL 25 MG CAP PO PRN (16:00)
[2016-08-25] MEDS ORDERED: ACETAMINOPHEN 325 MG TAB PO PRN (16:00)
[2016-08-25] MEDS ORDERED: GELATIN 12 MM/7 MM FOAM TOP PRN (16:00)
[2016-08-25] MEDS ORDERED: cloNIDine HCL 0.1 MG TAB PO PRN (16:00)
[2016-08-25] MEDS ORDERED: SODIUM CHLORIDE 0.9% FLUSH 5 ML FLUSH IVF PRN (16:00)
[2016-08-25] MEDS ORDERED: HEPARIN SODIUM - IV 10,000 UNITS/10 ML VIAL IVF PRN (16:00)
--- NOTE | 2016-08-25 16:01 | PD.CONS ---
[facility] Service Nephrology Consult Requested By Reason for Consult Acute renal failure Primary Care Physician Corby Alves MD History of Present Illness This is a very unfortunate 56 y/o male pt who was admitted for sigmoid resection due to diverticulitis. He was in [facility], was a helicat call for respiratory distress, placed on Bipap. He had increased abdominal distention, CT showed a leak at the site of anastomosis. He was taken to the OR urgently for correction. He had a colostomy placed with 2 SERGEI drains. He is intubated today, unresponsive on vent. BP running low normal not on pressors. His renal function declined today, creatinine was 1.6 this morning, repeat increased to 2.16. He has not made any urine since last night. He is volume overloaded. Hyperkalemic earlier, treated with insulin, dextrose, bicarbonate, and is on bicarb gtt in sterile water. He is on sedation currently but opens eyes. We were consulted for management. (Fransisca Canela) Review of Systems ROS Limitations: Clinical Condition, Intubated, Unresponsive (Fransisca Canela) Past Family Social History Allergies: Coded Allergies: No Known Allergies (Verified , 08/18/16) Past Medical History Diverticulitis History of COPD, Hypertension, Anxiety disorder, BPH Past Surgical History Tonsillectomy Reported Medications Ativan 0.5 mg q 3-hour p.r.n. Reglan 10 mg q. 8-hour. Xopenex nebulizer treatment Lasix 20 mg twice a day, Protonix 40 mg a day Symbicort Active Ordered Medications Current Medications Medications (Trade) Dose Ordered Sig/Jayme Route Start Time Stop Time Status Last Admin (NS Flush) 2 ml UNSCH PRN IVF 08/18/16 14:30 (NS Flush) 2 ml BID IVF 08/18/16 16:00 08/25/16 08:24 (Sanderson 5-325 Mg) 1 tab Q6H PRN PO 08/18/16 14:30 Hold 08/20/16 14:59 (Sanderson 5-325 Mg) 2 tab Q6H PRN PO 08/18/16 14:30 Hold 08/22/16 03:03 (Tylenol) 650 mg Q4H PRN PO 08/18/16 14:30 (Protonix Inj) 40 mg DAILY IVP 08/19/16 09:00 3/3/17 08:24 (Zofran Inj) 4 mg Q6H PRN IV 08/18/16 14:30 08/19/16 23:31 (Vasotec Inj) 1.25 mg Q4H PRN IV 08/18/16 14:30 08/18/16 16:54 (Vasotec Inj) 2.5 mg Q6H PRN IV 08/18/16 14:30 08/25/16 04:47 Benzocaine/ Menthol 1 lozenge 1 lozenge UNSCH PRN SUCK-ON 08/18/16 14:30 (KCl 40 Meq Premix Inj) 100 ml @ 25 mls/hr UNSCH PRN IV 08/18/16 14:30 (Heparin Inj) 5,000 units Q12H SQ 08/18/16 18:45 08/24/16 17:14 (Narcan Inj) 0.4 mg UNSCH PRN IV 08/18/16 14:30 (Benadryl Inj) 25 mg Q6H PRN IV 08/18/16 14:30 08/21/16 20:03 Albuterol Sulfate 2 puff 2 puff Q4H PRN INH 08/18/16 20:00 08/21/16 12:44 (Vancomycin Consult Pharmacy) 0 ml @ 0 mls/hr UNSCH OTHER 08/22/16 09:30 (Ativan Inj) 0.5 mg Q3H PRN IV PUSH 08/22/16 14:00 08/25/16 05:06 (Reglan Inj) 10 mg Q8HR IV PUSH 08/22/16 14:00 08/25/16 13:08 (SoluMEDROL INJ) 40 mg Q8HR IV PUSH 08/22/16 22:00 Hold 08/24/16 12:54 Morphine Sulfate 3 mg 3 mg Q3H PRN IV 08/22/16 20:15 08/25/16 04:58 Vancomycin HCl 1500 mg/Sodium Chloride 515 ml @ 250 mls/hr Q24H IV 08/23/16 12:00 08/25/16 12:06 Metronidazole 100 ml @ 100 mls/hr Q6H IV 08/25/16 03:00 08/25/16 14:32 Levofloxacin/ Dextrose 150 ml @ 100 mls/hr Q24H IV 08/24/16 23:15 08/24/16 23:50 (fentaNYL DRIP) 250 ml @ 0 mls/hr TITRATE IV 08/24/16 23:45 08/25/16 08:25 Haloperidol Lactate 1 mg 1 mg Q4H PRN IV 08/24/16 23:45 Propofol 100 ml @ 0 mls/hr TITRATE IV 08/24/16 23:45 08/25/16 08:24 (Maxipime Inj/NS Inj) 100 ml @ 200 mls/hr Q8H IV 08/25/16 01:15 08/25/16 08:25 (Trandate Inj) 10 mg Q4H PRN IV PUSH 08/25/16 01:30 (Symbicort 160-4.5 Inh) 2 puff Q12HR INH 08/25/16 01:30 Chlorhexidine Gluconate 15 ml 15 ml BID@08,20 MT 08/25/16 08:00 08/25/16 08:23 (NS 1000 ml Inj) 1,000 ml @ 0 mls/hr BOLUS IV 08/25/16 07:45 Furosemide 20 mg 20 mg BID IV PUSH 08/25/16 21:00 (Sodium Bicarbonate 8.4% Inj/Sterile Water For Inj) 1,000 ml @ 150 mls/hr Q6H40M IV 08/25/16 15:00 08/25/16 14:52 Miscellaneous Information SPECIFIC LAB TO BE DRAWN:VANCO TROUGH DATE TO BE DR... ONCE ONCE XX 08/26/16 11:45 08/26/16 11:46 Family History unable to obtain Social History unable to obtain (Fransisca Canela) Physical Exam Vital Signs Vital Signs Date Time Temp Pulse Resp B/P Pulse Ox O2 Delivery O2 Flow Rate FiO2 08/25/16 14:00 106 08/25/16 12:00 107 08/25/16 12:00 50 08/25/16 12:00 100.4 106 22 96 90/57 08/25/16 10:57 97 50 08/25/16 10:00 110 08/25/16 08:40 50 08/25/16 08:00 113 08/25/16 08:00 50 08/25/16 08:00 100.2 112 20 96 132/66 08/25/16 07:53 96 50 08/25/16 07:00 96 Mechanical Ventilator 40 08/25/16 06:00 113 08/25/16 04:00 103 08/25/16 04:00 50 08/25/16 04:00 98.9 103 18 95/62 95 98/57 08/25/16 03:11 92 50 08/25/16 02:00 106 08/25/16 01:36 50 08/25/16 01:35 50 08/25/16 01:20 92 50 08/25/16 00:45 50 08/25/16 00:00 107 08/25/16 00:00 98.0 107 14 133/81 96 159/79 08/24/16 23:15 70 08/24/16 22:50 97 70 08/24/16 20:00 97.8 106 26 150/95 92 08/24/16 20:00 106 08/24/16 19:00 98 08/24/16 19:00 93 Bi-Pap 40 08/24/16 18:00 108 08/24/16 16:00 97.6 100 32 147/90 98 08/24/16 16:00 100 Physical Exam Middle aged male, sedated on vent NG tube right nare cv: s1/s2, heart rate 90s lungs; vented, diminished in bases abd: multiple incisions, distended, colostomy with beefy red stoma, no output, 2 SERGEI drains ext: moderate edema borden no output Laboratory Laboratory Tests Test 08/24/16 08/25/16 08/25/16 08/25/16 21:36 01:08 01:25 02:00 Blood Gas Puncture Site DRAWN IN OR ART LINE Blood Gas Patient Temperature 98.6 98.6 Blood Gas HCO3 24 24 Blood Gas Base Excess -1.0 -2.5 Blood Gas Oxygen Saturation 93 93 Arterial Blood pH 7.34 7.26 Arterial Blood Partial 45 54 Pressure CO2 Arterial Blood Partial 90 89 Pressure O2 Arterial Blood Oxygen Content 20.8 19.7 Arterial Blood 1.2 0.6 Carboxyhemoglobin Arterial Blood Methemoglobin 1.1 1.0 Blood Gas Hemoglobin 15.8 15.0 Oxygen Delivery Device VENTILATOR VENTILATOR Blood Gas Ventilator Setting OR PRVC Blood Gas Inspired Oxygen 60 50 White Blood Count 16.4 Red Blood Count 5.08 Hemoglobin 14.7 Hematocrit 44.2 Mean Corpuscular Volume 87.0 Mean Corpuscular Hemoglobin 29.0 Mean Corpuscular Hemoglobin 33.3 Concent Red Cell Distribution Width 14.2 Platelet Count 532 Mean Platelet Volume 7.8 Neutrophils (%) (Auto) 91.2 Lymphocytes (%) (Auto) 2.4 Monocytes (%) (Auto) 5.8 Eosinophils (%) (Auto) 0.4 Basophils (%) (Auto) 0.2 Neutrophils # (Auto) 14.9 Lymphocytes # (Auto) 0.4 Monocytes # (Auto) 1.0 Eosinophils # (Auto) 0.1 Basophils # (Auto) 0.0 CBC Comment AUTO DIFF Differential Total Cells 100 Counted Neutrophils % (Manual) 37 Band Neutrophils % 55 Lymphocytes % 1 Monocytes % 4 Neutrophils # (Manual) 15.6 Metamyelocytes 2 Myelocytes 1 Nucleated Red Blood Cells 1 Differential Comment FINAL DIFF MANUAL Toxic Granulation 1+ Toxic Vacuolation PRESENT Dohle Bodies PRESENT Platelet Estimate HIGH Platelet Morphology Comment NORMAL Red Cell Morphology Comment NORMAL Sodium Level 143 Potassium Level 4.7 Chloride Level 108 Carbon Dioxide Level 27.1 Anion Gap 8 Blood Urea Nitrogen 53 Creatinine 1.16 Estimat Glomerular Filtration 65 Rate Random Glucose 182 Calcium Level 9.0 Lactic Acid Level 1.3 Test 08/25/16 08/25/16 08/25/16 08/25/16 04:20 04:55 06:30 08:10 White Blood Count 21.0 Red Blood Count 4.85 Hemoglobin 13.7 Hematocrit 42.5 Mean Corpuscular Volume 87.7 Mean Corpuscular Hemoglobin 28.3 Mean Corpuscular Hemoglobin 32.3 Concent Red Cell Distribution Width 14.6 Platelet Count 456 Mean Platelet Volume 7.9 Neutrophils (%) (Auto) 88.5 Lymphocytes (%) (Auto) 2.9 Monocytes (%) (Auto) 8.5 Eosinophils (%) (Auto) 0.0 Basophils (%) (Auto) 0.1 Neutrophils # (Auto) 18.5 Lymphocytes # (Auto) 0.6 Monocytes # (Auto) 1.8 Eosinophils # (Auto) 0.0 Basophils # (Auto) 0.0 CBC Comment AUTO DIFF Differential Total Cells 100 Counted Neutrophils % (Manual) 55 Band Neutrophils % 24 Lymphocytes % 6 Monocytes % 4 Neutrophils # (Manual) 18.9 Metamyelocytes 8 Myelocytes 3 Nucleated Red Blood Cells 1 Differential Comment FINAL DIFF MANUAL Toxic Granulation 1+ Toxic Vacuolation PRESENT Dohle Bodies PRESENT Platelet Estimate HIGH Platelet Morphology Comment ENLARGED Red Cell Morphology Comment Blood Gas Puncture Site ART LINE HOWARD Blood Gas Patient Temperature 98.6 98.6 Blood Gas HCO3 22 20 Blood Gas Base Excess -3.7 -6.2 Blood Gas Oxygen Saturation 94 96 Arterial Blood pH 7.28 7.26 Arterial Blood Partial 49 45 Pressure CO2 Arterial Blood Partial 94 113 Pressure O2 Arterial Blood Oxygen Content 20.1 19.9 Arterial Blood 0.7 0.6 Carboxyhemoglobin Arterial Blood Methemoglobin 0.9 0.9 Blood Gas Hemoglobin 15.2 14.7 Oxygen Delivery Device VENTILATOR VENT Blood Gas Ventilator Setting [facility]/600/10PEEP Blood Gas Inspired Oxygen 50 50 Nasal Screen MRSA (PCR) NEGATIVE Test 08/25/16 08/25/16 11:40 14:55 White Blood Count 23.2 Red Blood Count 5.00 Hemoglobin 14.3 Hematocrit 43.6 Mean Corpuscular Volume 87.3 Mean Corpuscular Hemoglobin 28.7 Mean Corpuscular Hemoglobin 32.9 Concent Red Cell Distribution Width 14.6 Platelet Count 355 Mean Platelet Volume 7.8 Sodium Level 145 Potassium Level 6.0 Chloride Level 112 Carbon Dioxide Level 22.5 Anion Gap 11 Blood Urea Nitrogen 67 Creatinine 2.16 Estimat Glomerular Filtration 32 Rate Random Glucose 166 Lactic Acid Level 1.6 Calcium Level 8.7 Phosphorus Level 5.7 Magnesium Level 2.4 Total Bilirubin 0.8 Aspartate Amino Transf 39 (AST/SGOT) Alanine Aminotransferase 17 (ALT/SGPT) Alkaline Phosphatase 85 Total Protein 5.5 Albumin 1.4 Vancomycin Level Trough 13.8 Blood Gas Puncture Site HOWARD Blood Gas Patient Temperature 98.6 Blood Gas HCO3 20 Blood Gas Base Excess -5.3 Blood Gas Oxygen Saturation 97 Arterial Blood pH 7.29 Arterial Blood Partial 43 Pressure CO2 Arterial Blood Partial 131 Pressure O2 Arterial Blood Oxygen Content 18.6 Arterial Blood 0.7 Carboxyhemoglobin Arterial Blood Methemoglobin 0.9 Blood Gas Hemoglobin 13.5 Oxygen Delivery Device VENT Blood Gas Ventilator Setting [facility]/600/10/ Blood Gas Inspired Oxygen 50 Date/Time Procedure Status Source Growth 08/25/16 04:23 Aerobic Blood Culture Received Blood Peripheral Pending 08/25/16 04:23 Anaerobic Blood Culture Received Blood Peripheral Pending 08/25/16 02:00 Gram Stain - Final Resulted Sputum Endotracheal 08/25/16 02:00 Sputum Culture Resulted Sputum Endotracheal Pending (Fransisca Canela) Result Diagram: 08/25/16 1140 08/25/16 1140 Imaging Last Impressions Chest X-Ray 08/24/16 0000 Signed Impressions: Service Date/Time: August 23:23 - CONCLUSION: Satisfactory support line and tube positioning. Mild basilar infiltrates Claude Rosario MD Abdomen/Pelvis CT 08/24/16 0000 Signed Impressions: Service Date/Time: August 17:30 - CONCLUSION: There is a fistulous tract arising from the superior aspect of the anastomosis causing Gastroview to leak into the right mid pelvis. There is a significant amount of free fluid or free air surrounding the liver and throughout the abdomen. This case was discussed in detail with Dr. Moffett. Mikel Nguyen MD Abdomen X-Ray 08/24/16 0000 Signed Impressions: Service Date/Time: August 07:44 - CONCLUSION: Gaseous distention of multiple bowel loops possible ileus. Jony Miller MD Enema w/Water Soluble 08/23/16 0000 Signed Impressions: Service Date/Time: Tuesday, August 23, 2016 10:12 - CONCLUSION: Anastomosis appears patent without extravasation. Aditya Rocha MD FACR CT Angiography 08/21/16 0000 Signed Impressions: Service Date/Time: Sunday, August 21, 2016 14:05 - CONCLUSION: 1. There is no evidence for central pulmonary emboli. 2. Minimal subcutaneous air as well as free intraperitoneal air. Aditya Rocha MD FACR (Fransisca Canela) Assessment and Plan Problem List: (1) Acute renal failure Plan: in a pt with normal renal function at baseline he had VIRIDIANA on 08/21 which was likely related to contrast exposure; that did resolve now borderline hypotensive, with significant source of intraabdominal infection , likely septic now causing acute decline in renal function he has become anuric and hyperkalemic, borden was irrigated with no change in urine output started on vancomycin 08/23, trough elevated but not that high; consider changing Abx if renal function further declines will need urgent HD; vascath to be placed, dialysis orders entered in the meantime, stop IVF, monitor renal function daily with electrolyte panel his prognosis is guarded (2) Diverticulitis Plan: s/p colon resection with complications surgery following, appreciate recommendations (Fransisca Canela) Assessment and Plan patient was seen and examined. Chart reviewed. Discussed with Dr. Quarles. Patient was seen during dialysis. On 2K, UF will attempt 1000 ml. Not on pressors. Oliguric. VIRIDIANA due to ATN. Likely will need dialysis again tomorrow. Continue antibiotics. Maintain MAP above 65. Avoid nephrotoxic agents. (Tito Kuo MD) Fransisca Canela Aug 25, 2016 16:01 Tito Kuo MD Aug 25, 2016 20:07
[2016-08-25 16:15] LABS: BICARBONATE 23.8 MEQ/L (21.0-32.0); POTASSIUM 5.4 MEQ/L (3.5-5.1)
[2016-08-25] MEDS ORDERED: MIDAZOLAM HCL 5 MG/ML VIAL (1 ML) ONE (16:15)
[2016-08-25] MEDS ORDERED: NOREPINEPHRINE-DEXTROSE DRIP 250 ML IV ONE (16:16)
[2016-08-25] MEDS: HEPARIN SODIUM - IV 10,000 UNITS/10 ML VIAL PRN ×2 (16:56→17:46)
--- NOTE | 2016-08-25 17:14 | RADRPT ---
EXAM DATE/TIME: 08/25/2016 16:55 [facility] COMPARISON: CHEST SINGLE AP, August 24, 2016, 23:23. INDICATIONS : Evaluate for VAS CATH placement. MEDICAL HISTORY : Chronic obstructive pulmonary disease. SURGICAL HISTORY : None. ENCOUNTER: Subsequent ACUITY: 1 day PAIN SCORE: Non-responsive. LOCATION: chest FINDINGS: The cardiac silhouette is enlarged in transverse diameter. Support lines and tubes are in satisfactor y position. A Vas-Cath is in place via right internal jugular approach with its tip in the superior v samantha cava. There is subsegmental atelectasis in the both bases. CONCLUSION: 1. Uncomplicated line placement. No evidence of pneumothorax. Arcadio Suárez MD on August 25, 2016 at 17:12 Board Certified Radiologist. This report was verified electronically.
--- NOTE | 2016-08-25 17:32 | HHI.PR ---
Subjective Remarks YOAA male with robotic surgery,COPD exac Underwent exp lap,I&d and loop iliostomy placement Remains on vent Sedated Objective Vital Signs Vital Signs Date Time Temp Pulse Resp B/P Pulse Ox O2 Delivery O2 Flow Rate FiO2 08/25/16 16:00 50 08/25/16 16:00 100 08/25/16 16:00 99.9 98 22 95 112/58 08/25/16 15:45 95 50 08/25/16 14:00 106 08/25/16 12:00 107 08/25/16 12:00 50 08/25/16 12:00 100.4 106 22 96 90/57 08/25/16 10:57 97 50 08/25/16 10:00 110 08/25/16 08:40 50 08/25/16 08:00 113 08/25/16 08:00 50 08/25/16 08:00 100.2 112 20 96 132/66 08/25/16 07:53 96 50 08/25/16 07:00 96 Mechanical Ventilator 40 08/25/16 06:00 113 08/25/16 04:00 103 08/25/16 04:00 50 08/25/16 04:00 98.9 103 18 95/62 95 98/57 08/25/16 03:11 92 50 08/25/16 02:00 106 08/25/16 01:36 50 08/25/16 01:35 50 08/25/16 01:20 92 50 08/25/16 00:45 50 08/25/16 00:00 107 08/25/16 00:00 98.0 107 14 133/81 96 159/79 08/24/16 23:15 70 08/24/16 22:50 97 70 08/24/16 20:00 97.8 106 26 150/95 92 08/24/16 20:00 106 08/24/16 19:00 98 08/24/16 19:00 93 Bi-Pap 40 08/24/16 18:00 108 I/O 08/24/16 08/24/16 08/24/16 08/25/16 08/25/16 08/25/16 07:00 15:00 23:00 07:00 15:00 23:00 Intake Total 485 ml 414 ml 600 ml 1795 ml 2684 ml Output Total 875 ml 1300 ml 550 ml 420 ml 225 ml Balance -390 ml -886 ml 50 ml 1375 ml 2459 ml Intake Oral 0 ml 0 ml 0 ml IV Total 485 ml 414 ml 600 ml 1795 ml 2684 ml Output Urine Total 875 ml 1300 ml 550 ml 200 ml 10 ml Stool Total 70 ml 20 ml Gastric Drainage Total 30 ml 50 ml Drainage Total 120 ml 145 ml # Bowel Movements 0 0 0 0 0 Result Diagram: 08/25/16 1140 08/25/16 1545 Objective Remarks GENERAL: WBWN obese male, on Vent , sedated SKIN: Warm and dry. HEAD: Normocephalic. EYES: No scleral icterus. No injection or drainage. NECK: Supple, trachea midline. No JVD or lymphadenopathy. CARDIOVASCULAR: Regular rate and rhythm without murmurs, gallops, or rubs. RESPIRATORY: Breath sounds equal bilaterally. No accessory muscle use. exp rhonchi GASTROINTESTINAL: Abdomen soft, non-tender, Abd distended MUSCULOSKELETAL: No cyanosis, or edema. BACK: Nontender without obvious deformity. No CVA tenderness. A/P Assessment and Plan Resp Failure, on vent COPD exac S/p robotic surgery Anxiety S/p Exp lap PLAN: Cont vent support aerosol nebs IV Solumedrol Nebuliser rx qid and prn Abx Vanco, Levaquin, Cefepime and Flagyl Robbie Renteria MD Aug 25, 2016 17:32
[2016-08-25] MEDS ORDERED: NOREPINEPHRINE-DEXTROSE DRIP 250 ML IV SCH (17:45)
[2016-08-25] MEDS ORDERED: TERBUTALINE INJ 1 MG/ML AMP SQ PRN (17:45)
[2016-08-25] MEDS: SODIUM CHLOR 0.9% 1000 ML INJ 1,000 ML IV PRN (17:47)
[2016-08-25] MEDS: GENTAMICIN SULFATE (DIALYSIS USE ONLY) 20 MG/2 ML VIAL IV PRN (17:47)
[2016-08-25] MEDS: ALBUMIN HUMAN 25% 25 GM/100 ML BAGP IV PRN (17:48)
--- NOTE | 2016-08-25 17:48 | PD.PROCEDR ---
Procedure Note Procedure Preop diagnosis: Anuric renal failure, sepsis, Postop diagnosis: Same Informed consent: Obtained from family and documented on chart Anesthesia: 1% lidocaine for local infiltration anesthesia Procedure: Dialysis catheter placement Site: Right internal jugular vein Ultrasound guidance : Yes After sterile prepping and draping using 1% lidocaine for local infiltration anesthesia, right internal jugular vein was visualized using an ultrasound was finder and under direct visualization was cannulated using an introducer needle with dark nonpulsatile blood return. A Guidewire was passed through the introducer needle without any resistance and the needle was then removed. After making a skin neck and dilation of tract, a 20 cm dual lumen dialysis catheter was passed over the guidewire by modified seldinger's technique into the right internal jugular vein up to the 19 cm dominick and the guidewire was then removed. Good blood return obtained through both ports which were then flushed with saline and subsequently hep-locked. After suturing the catheter in place, a Bio- occlusive dressing with biopatch was applied to the site. Post procedure chest x -ray was ordered and reviewed with good placement of right IJ dialysis catheter with tip overlying SVC, no pneumothorax on postprocedure film. Patient tolerated the procedure well with no immediate complications noted. Satya Quarles MD Aug 25, 2016 17:48
[2016-08-25] MEDS: MANNITOL 12.5 GM/50 ML VIAL IV PRN (17:49)
[2016-08-25] MEDS: VASOPRESSIN INJ 40 UNITS in DEXTROSE 5% IN WATER 100ML INJ 98 ML IV SCH ×2 (18:10)
[2016-08-25] MEDS: FAT EMULSION 20% INJ 250 ML (@10 mls/hr) IV-CENTRAL SCH (20:33)
[2016-08-25] MEDS: FUROSEMIDE 20 MG/2 ML VIAL IV PUSH SCH (20:33)
[2016-08-25] MEDS ORDERED: DEXTROSE IV-CENTRAL SCH (21:00)
[2016-08-25] MEDS ORDERED: [UNRECOGNIZED DRUG - OTHER] IV-CENTRAL SCH (21:00)
[2016-08-25] MEDS: LEVOFLOXACIN 750 MG PREMIX INJ 150 ML IV SCH (23:08)
[2016-08-26] VITALS (18 sets, daily range): BP systolic 100–164; BP diastolic 49–73; PULSE 82–109; RESP 22–23; TEMP 100.2–101.1; O2SAT 95–100
[2016-08-26] MEDS: RESP: ALBUTEROL 2.5 MG/3 ML NEB (SCH) INH ×7 (00:30→20:04)
[2016-08-26] MEDS: CEFEPIME INJ 2,000 MG in SODIUM CHLORIDE 0.9% INJ 100 ML IV SCH ×3 (01:59→16:32)
[2016-08-26] MEDS: metroNIDAZOLE 500 MG INJ 100 ML IV SCH ×4 (03:18→20:53)
[2016-08-26 03:41] LABS: BASOPHIL % 0.2 % (0.0-2.0); EOSINOPHIL % 0.1 % (0.0-4.0); HEMATOCRIT 33.1 % (39.0-51.0); LYMPH % 3.4 % (9.0-44.0); LYMPHOCYTE # 0.5 TH/MM3 (1.0-4.8); MEAN CELL VOLUME 87.7 FL (80.0-100.0); MEAN CORPUSCULAR HEMOGLOBIN 29.1 PG (27.0-34.0); MEAN CORPUSCULAR HGB CONC 33.2 % (32.0-36.0); MONO % 5.3 % (0.0-8.0); PLATELET COUNT 185 TH/MM3 (150-450); RED BLOOD COUNT 3.77 MIL/MM3 (4.50-5.90); RED CELL DISTRIBUTION WIDTH 14.6 % (11.6-17.2); WHITE BLOOD COUNT 14.3 TH/MM3 (4.0-11.0)
[2016-08-26 03:45] LABS: HEMO FLAGS AUTO DIFF
[2016-08-26 04:09] LABS: ALKALINE PHOSPHATASE 56 U/L (45-117); ALT (GPT) 13 U/L (12-78); ANION GAP 9 MEQ/L (5-15); AST (GOT) 39 U/L (15-37); BICARBONATE 25.4 MEQ/L (21.0-32.0); BLOOD UREA NITROGEN 70 MG/DL (7-18); CHLORIDE 108 MEQ/L (98-107); GLOMERULAR FILTRATION RATE 25 ML/MIN (>89); MAGNESIUM 2.2 MG/DL (1.5-2.5); POTASSIUM 4.4 MEQ/L (3.5-5.1); SODIUM (NA) 142 MEQ/L (136-145); TOTAL BILIRUBIN ADULT 0.6 MG/DL (0.2-1.0)
[2016-08-26 04:53] LABS: BANDS 8 % (0-6); DOHLE BODIES PRESENT (NONE SEEN); METAMYELOCYTES 7 % (0-1); MYELOCYTES 4 % (0-0); NEUTROPHIL # MANUAL DIFF 13.7 TH/MM3 (1.8-7.7); PLASMA CELLS 1 % (0-0); POLYS (SEG NEUTROPHILS) 75 % (16-70); PROMYELOCYTES 2 % (0-0); TOXIC VACUOLATION PRESENT (NONE SEEN); WBC DIFF SAMPLE 100
[2016-08-26 04:54] LABS: PLATELET ESTIMATE SMEAR NORMAL (NORMAL); PLATELET MORPHOLOGY NORMAL (NORMAL); SCAN/DIFF FINAL DIFF MANUAL
[2016-08-26] MEDS ORDERED: INSULIN HUMAN REGULAR 1,000 UNITS/10 ML VIAL OTHER ONE ×2 (07:15)
[2016-08-26] MEDS ORDERED: GLUCAGON 1 MG/ML VIAL IM/SQ PRN (07:15)
--- NOTE | 2016-08-26 07:17 | RADRPT ---
EXAM DATE/TIME: 08/26/2016 04:45 [facility] COMPARISON: CHEST SINGLE AP, August 25, 2016, 16:55. INDICATIONS : Shortness of breath. MEDICAL HISTORY : Chronic obstructive pulmonary disease. SURGICAL HISTORY : None. ENCOUNTER: Subsequent ACUITY: 4 - 6 days PAIN SCORE: Non-responsive. LOCATION: Bilateral chest FINDINGS: Endotracheal tube, nasogastric tube, left subclavian central line and right neck dialysis catheter ar e stable. Bibasilar infiltrates persist unchanged. Accounting for rotation, cardiac contours are stab le. CONCLUSION: No significant interval change Claude Rosario MD on August 26, 2016 at 7:14 Board Certified Radiologist. This report was verified electronically.
[2016-08-26] MEDS: MIDAZOLAM 100 MG/ML INJ 100 ML IV SCH (07:25)
[2016-08-26] MEDS: RESP: ALBUTEROL 2.5 MG/IPRATROPIUM 0.5 MG NEB (PRN) NEB (07:29)
--- NOTE | 2016-08-26 07:37 | HHI.CCPN ---
Subjective Remarks/Hospital Course 08/25: Patient is a 58-year-old male with past medical history significant COPD who, on 08/18/16, underwent Laparoscopic robotic extensive lysis of adhesions, low anterior resection and small bowel resection. Apparently he was brought in by Dr. Moffett for Diverticulitis. Patient has a history of hypertension, COPD, and continues to smoke one pack of cigarettes a day. Postoperatively patient became progressively short of breath. Pulmonary was consulted on 08/21/16 as the patient was becoming more hypoxemic requiring BiPAP. CT of the chest PE protocol did not show any pulmonary embolism. Patient was placed on breathing treatments and IV Solu-Medrol 40 mg every [address] Renteria. Today a.m. patient was on 100% nonrebreather. Patient was diagnosed with an anastomotic leak today and was taken back to the OR by Dr. Moffett. He underwent exploratory laparotomy, I&D and loop ileostomy today. Postop patient remained hypoxemic requiring 70% oxygen, and hence was left intubated and critical care medicine was consulted. Dr. Arce evaluated the patient in ICU. He remained hypoxemic, FiO2 70%. Chest x-ray shows bibasilar mild infiltrates. On sedation lightening patient became very hypertensive, not following commands probably secondary to residual NM blockade received while being transported to ICU. Patient on receiving vancomycin Levaquin and Flagyl per Dr. Moffett. Dr. Arce added cefepime to cover for Pseudomonas. Holding Solu-Medrol due to anastomotic leak. 08/26: Remains sedated, orally intubated on mechanical ventilation. Went into anuric renal failure yesterday which did not respond to fluid boluses and diuretics hence was started on hemodialysis after placement of right IJ Vas- Cath. Currently sedated, arousable, remains orally intubated on mechanical ventilation. Blood pressure borderline last evening following dialysis for which she was started on low-dose vasopressin 0.03 units per minute and Levophed which is currently at 1 jose per minute. Started on TPN last night following which he has been hyperglycemic. Objective Vital Signs Date Time Temp Pulse Resp B/P Pulse Ox O2 Delivery O2 Flow Rate FiO2 08/26/16 04:18 100 50 08/26/16 04:00 109 08/26/16 04:00 100.4 23 144/73 164/65 08/25/16 19:00 Mechanical Ventilator 08/24/16 07:49 15.00 Intake and Output 08/25/16 08/25/16 08/26/16 08:00 16:00 00:00 Intake Total 1845 ml 2684 ml 1259 ml Output Total 420 ml 225 ml 720 ml Balance 1425 ml 2459 ml 539 ml Result Diagram: 08/26/16 0330 08/26/16 0330 Other Results Laboratory Tests Test 08/25/16 08/25/16 08:10 14:55 Blood Gas Puncture Site [facility] Blood Gas Patient Temperature 98.6 98.6 Blood Gas HCO3 20 mmol/L 20 mmol/L (22-26) (22-26) Blood Gas Base Excess -6.2 mmol/L -5.3 mmol/L (-2-2) (-2-2) Blood Gas Oxygen Saturation 96 % (90-100) 97 % (90-100) Arterial Blood pH 7.26 7.29 (7.380-7.420) (7.380-7.420) Arterial Blood Partial 45 mmHg (38-42) 43 mmHg (38-42) Pressure CO2 Arterial Blood Partial 113 mmHg 131 mmHg Pressure O2 (61-120) (61-120) Arterial Blood Oxygen Content 19.9 Vol % 18.6 Vol % (12.0-20.0) (12.0-20.0) Arterial Blood 0.6 % (0-4) 0.7 % (0-4) Carboxyhemoglobin Arterial Blood Methemoglobin 0.9 % (0-2) 0.9 % (0-2) Blood Gas Hemoglobin 14.7 G/DL 13.5 G/DL (12.0-16.0) (12.0-16.0) Oxygen Delivery Device VENT VENT Blood Gas Ventilator Setting [facility]//600/10PEEP [facility]//600/10/ Blood Gas Inspired Oxygen 50 % 50 % Imaging Last Impressions Chest X-Ray 08/25/16 0000 Signed Impressions: Service Date/Time: Thursday, August 25, 2016 16:55 - CONCLUSION: 1. Uncomplicated line placement. No evidence of pneumothorax. Arcadio Suárez MD Abdomen/Pelvis CT 08/24/16 0000 Signed Impressions: Service Date/Time: August 17:30 - CONCLUSION: There is a fistulous tract arising from the superior aspect of the anastomosis causing Gastroview to leak into the right mid pelvis. There is a significant amount of free fluid or free air surrounding the liver and throughout the abdomen. This case was discussed in detail with Dr. Moffett. Mikel Nguyen MD Abdomen X-Ray 08/24/16 0000 Signed Impressions: Service Date/Time: August 07:44 - CONCLUSION: Gaseous distention of multiple bowel loops possible ileus. Jony Miller MD Enema w/Water Soluble 08/23/16 0000 Signed Impressions: Service Date/Time: Tuesday, August 23, 2016 10:12 - CONCLUSION: Anastomosis appears patent without extravasation. Aditya Rocha MD FACR CT Angiography 08/21/16 0000 Signed Impressions: Service Date/Time: Sunday, August 21, 2016 14:05 - CONCLUSION: 1. There is no evidence for central pulmonary emboli. 2. Minimal subcutaneous air as well as free intraperitoneal air. Aditya Rocha MD FACR Objective Remarks GENERAL: Obese well-developed male who is intubated, sedated SKIN: Erythema of the skin on right lower abdomen HEAD: Atraumatic. Normocephalic. EYES: Pupils equal round and reactive. ENT: Orotracheally intubated NECK: Trachea midline. No JVD or lymphadenopathy. CARDIOVASCULAR: Regular rate and rhythm without murmurs, gallops, or rubs. RESPIRATORY: Orally intubated on mechanical ventilation, air entry decreased bilaterally at bases him a scattered rhonchi, no wheezing. GASTROINTESTINAL: Abdomen distended. Midline incision clean and intact. Bilateral SERGEI drains at the flanks with sero-sanguinous output. Ileostomy noted. Erythema of the skin lateral to ileostomy. MUSCULOSKELETAL: Extremities without clubbing, cyanosis, or edema. NEUROLOGICAL: Sedated, arousable, opens eyes, attempting to reach for ET tube, pupils 3 mm bilaterally reactive, orally intubated on mechanical ventilation Urinary Catheter: Yes Assessment to: Continue Vascular Central Line Catheter: Yes Assessment to: Continue A/P Assessment and Plan ASSESSMENT: Postoperative acute hypoxemic respiratory failure on mech ventilation Acute COPD exacerbation Probable healthcare associated pneumonia Septic shock Anastomotic leak status post exploratory laparotomy, I&D, loop ileostomy 08/24/16 s/p Laparoscopic robotic extensive ANNA MARIE, robotic LAR and small bowel resection Acute renal failure Hyperkalemia (resolved) History of diverticulitis History of COPD History of hypertension PLAN: NEURO: -On Sedation and pain control with propofol and fentanyl infusions. Will start Versed gtt. and titrate off propofol in view of hypotension. -Daily sedation vacation in 24 hours RESP: Acute hypoxemic respiratory failure COPD exacerbation Probable healthcare associated pneumonia -Continue ACV 18/600/10, titrate FiO2 to keep saturation above 90 -DuoNeb every 4 hours scheduled and when necessary, Symbicort 2 puffs every 12 -Broad-spectrum antibiotics as below -Attempt to titrate PEEP down to +5 as tolerated before initiating C Pap trials. CV: Hypotension secondary to septic shock -Received multiple fluid boluses on 08/25. IV fluids discontinued subsequently in view of anuria necessitating hemodialysis. On TPN -Low-dose vasopressin 0.03 units per minute, Levophed as needed to keep map greater than 65 -May require CRRT to keep in even fluid balance as attempt at fluid removal with hemodialysis resulted in hypotension. GI/ Nutrition: Laparoscopic robotic ANNA MARIE, robotic LAR and small bowel resection with anastomotic leak History of diverticulitis -Status post exploratory laparotomy, I&D, loop ileostomy 08/24/16 -Postoperative management per Dr. Moffett. Broad-spectrum antibiotics as below. Follow SERGEI drain output. - On Reglan to improve GI motility -Started on TPN 08/25 : -Monitor renal function closely. Mg catheter. -IV fluids discontinued in view of anuric renal failure and hyperkalemia necessitating hemodialysis. Nephrology consulted and discussed case with Dr. Kuo on 08/25 -May require CRRT as attempt at fluid removal with hemodialysis resulted in hypotension. ID: Anastomotic leak Sepsis Probable HCAP -IV vancomycin, Flagyl and Levaquin per Dr. Moffett. Cefepime for broadening abx coverage added 08/26. Will discuss adding antifungal coverage with Dr. Moffett. -Follow up on blood sputum and wound cultures HEME: -Monitor CBC, CMP, coags ENDO: -Sliding-scale insulin for glycemic control. Add insulin 20 units in each bag of TPN to control hyperglycemia. PROPH: -Bilateral lower extremity SCDs. Heparin subcutaneous for DVT prophylaxis. Protonix for GI prophylaxis LINES: -Left subclavian central line placed in the OR 08/24 - RIJ dialysis catheter 08/25 CC time 45 min excluding procedures Satya Quarles MD 4, 2017 07:37
[2016-08-26] MEDS: CHLORHEXIDINE 0.12% (ORAL KIT) 15 ML CUP MT SCH ×2 (07:46→20:53)
[2016-08-26] MEDS: HEPARIN SODIUM - SQ 10,000 UNITS/ML VIAL SQ SCH ×2 (07:46→18:07)
[2016-08-26] MEDS: fentaNYL 2,500 MCG/NS 250 ML IV SCH ×2 (07:47→18:43)
[2016-08-26] MEDS: INSULIN ASPART SUPPLEMENTAL SCALE SQ SCH ×3 (08:07→17:53)
[2016-08-26] MEDS: PANTOPRAZOLE SODIUM 40 MG VIAL IVP SCH (08:08)
[2016-08-26] MEDS: FUROSEMIDE 20 MG/2 ML VIAL IV PUSH SCH ×2 (08:08→20:51)
[2016-08-26] MEDS: BUDESONIDE-FORMOTEROL 160/4.5 MCG INHALER INH SCH (08:08)
[2016-08-26] MEDS: SODIUM CHLORIDE 0.9% FLUSH 5 ML FLUSH IVF SCH ×2 (08:08→20:53)
[2016-08-26] MEDS ORDERED: PHARMACY ORDERED LAB XX ONE (11:45)
[2016-08-26] MEDS: SODIUM CHLOR 0.9% 1000 ML INJ 1,000 ML IV PRN (11:57)
[2016-08-26] MEDS: ALBUMIN HUMAN 25% 25 GM/100 ML BAGP IV PRN ×2 (11:57→11:58)
[2016-08-26] MEDS: MANNITOL 12.5 GM/50 ML VIAL IV PRN (11:57)
[2016-08-26] MEDS: HEPARIN SODIUM - IV 10,000 UNITS/10 ML VIAL PRN (11:58)
[2016-08-26] MEDS: VANCOMYCIN INJ 1,500 MG in SODIUM CHLORID 0.9% 500 ML INJ 500 ML IV SCH ×2 (11:58→12:00)
[2016-08-26] MEDS: GENTAMICIN SULFATE (DIALYSIS USE ONLY) 20 MG/2 ML VIAL IV PRN (11:58)
--- NOTE | 2016-08-26 13:25 | HHI.NPPN ---
Objective Data Data 08/25/16 08/26/16 19:00 07:00 Intake Total 2684 ml 2689 ml Output Total 725 ml 705 ml Balance 1959 ml 1984 ml Intake Oral 0 ml IV Total 2684 ml 1949 ml TPN/PPN 660 ml Lipid 80 ml Output Urine Total 10 ml 300 ml Stool Total 20 ml 35 ml Gastric Drainage Total 50 ml 320 ml Drainage Total 145 ml 50 ml Hemodialysis 500 ml # Bowel Movements 0 0 Vital Signs Date Time Temp Pulse Resp B/P Pulse Ox O2 Delivery O2 Flow Rate FiO2 08/26/16 13:08 50 08/26/16 12:00 95 08/26/16 12:00 100.4 94 22 98 114/50 08/26/16 12:00 50 08/26/16 12:00 94 100/59 08/26/16 11:24 96 50 08/26/16 10:00 106 08/26/16 08:00 96 08/26/16 08:00 94 112/50 08/26/16 08:00 101.1 101 22 97 112/50 08/26/16 08:00 50 08/26/16 07:30 95 50 08/26/16 07:00 97 Mechanical Ventilator 50 08/26/16 06:00 105 08/26/16 04:18 100 50 08/26/16 04:00 109 08/26/16 04:00 100.4 109 23 144/73 99 164/65 08/26/16 04:00 94 164/65 144/73 08/26/16 04:00 50 08/26/16 02:00 96 08/26/16 00:30 98 50 08/26/16 00:00 94 08/26/16 00:00 94 101/58 113/49 08/26/16 00:00 50 08/26/16 00:00 100.2 94 22 101/58 97 113/49 08/25/16 22:00 101 08/25/16 20:07 96 50 08/25/16 20:00 102 115/72 141/67 08/25/16 20:00 50 08/25/16 20:00 99.9 98 22 115/72 96 141/67 08/25/16 20:00 98 08/25/16 19:00 96 Mechanical Ventilator 50 08/25/16 18:00 99 08/25/16 16:00 50 08/25/16 16:00 100 08/25/16 16:00 99.9 98 22 95 112/58 08/25/16 15:45 95 50 08/25/16 14:00 106 -: 08/26/16 0330 08/26/16329 Assessment/Plan Problem List: (1) Acute renal failure Plan: in a pt with normal renal function at baseline he had VIRIDIANA on 08/21 which was likely related to contrast exposure; that did resolve now borderline hypotensive, with significant source of intraabdominal infection , likely septic now causing acute decline in renal function he has become anuric and hyperkalemic, seen during hemodialysis UF 2 L BP better on Vasopressor Vanco to be given next HD (2) Diverticulitis Plan: s/p colon resection with complications surgery following, appreciate recommendations Km Maya MD Aug 26, 2016 13:25
[2016-08-26] MEDS: METOCLOPRAMIDE HCL 10 MG/2 ML VIAL IV PUSH SCH ×2 (13:26→23:05)
[2016-08-26] MEDS: VASOPRESSIN INJ 40 UNITS in DEXTROSE 5% IN WATER 100ML INJ 98 ML IV SCH ×2 (13:49)
[2016-08-26] MEDS ORDERED: LEVOFLOXACIN 750 MG PREMIX INJ 150 ML IV SCH (14:04)
--- NOTE | 2016-08-26 17:23 | MP ---
cc: ALLEN MOFFETT M.D. DATE OF SURGERY 08/24/16 PREOPERATIVE DIAGNOSIS Anastomotic leak. POSTOPERATIVE DIAGNOSIS Anastomotic leak. PROCEDURE Exploratory laparotomy, irrigation and diverting loop ileostomy. SURGEON Edie Moffett MD [employer] Max Betancur MD ANESTHESIA General per ET tube ESTIMATED BLOOD LOSS 150 mL OPERATIVE INDICATIONS The patient is a 56 year old white male who is six days out from a robotic low anterior resection, who began having problems with respiratory distress three days ago. He has some baseline kidney dysfunction and so gastrographin was obtained rather than a CT scan. This showed no sign of the anastomotic leak at that time. Once his kidney function improved, however, we did go forward with CT scan today which revealed evidence of a leak at the anastomosis. OPERATIVE FINDINGS A tiny pinpoint opening just at the anterior anastomosis in the pelvis. There was not very much stool really in the belly, but there was a lot of inflammatory peel throughout the belly, all four quadrants, in addition to edema of the bowel wall and some murky fluid. There was also some free air anteriorly. The small bowel anastomosis just proximal to the ileocecal valve was intact and appeared healthy and the bowel, although edematous, was free of defects. PROCEDURE IN DETAIL The patient was brought to the operating room, and placed in the supine position. After induction of general anesthesia, the patient was placed in Jairo stirrups and all bony prominences were carefully padded. The skin of the anterior abdominal wall was then prepped and draped in the usual sterile fashion. A vertical midline incision was made, beginning just above his previous suprapubic incision and proceeding to midway between the umbilicus and the xyphoid. Using electrocautery, dissection was carried down to the fascia of the anterior abdominal wall. The peritoneal cavity was entered under direct vision and the fascial incision was extended the length of the skin incision. There was immediate reduction of a moderate amount of free air and quite a bit of murky fluid but not true purulence. However, immediately the bowel was noted to be massively dilated with quite a bit of edema and inflammatory peel throughout the visible peritoneal cavity. The bowel was then carefully and gently freed up and brought up and out of the peritoneal opening. Several small bowel pockets of inflammation and early purulence were then suctioned out. Eventually we had the small bowel up and out of the abdominal cavity and we were able to get down into the pelvis and visualize the previous anastomosis. There was a clear area where the anastomosis had opened up and we could see a little drop of stool come out with a gentle pressure on the proximal bowel. The peritoneal cavity was then copiously irrigated with warm normal saline, and the placement of the NG tube was confirmed. Eventually, after 3 liters of irrigation we were able to visualize well and the small bowel anastomosis was also identified and appeared to be without abnormality and healing well. There was one small area on the proximal ileum where there was a serosal tear, and this was repaired in an interrupted fashion using 3-0 Vicryl. Eventually, after cleaning all the areas of fluid and early purulence out of the peritoneal cavity, it was elected to use the planned ileostomy site to decompress the bowel. A site was chosen for proximal diversion of the bowel, just about 10 centimeters proximal to the previous anastomosis. A window was made in the mesentery and a Fred drain was placed through the window. A site was then chosen for the ostomy, being located 1[address] from the umbilicus to the right anterior superior iliac spine. A 2 cm ellipse of skin was removed sharply, and the preperitoneal fat was removed using electrocautery. A 1 1/2 cm vertical incision was made in the anterior fascia and the fibers of the rectus abdominis muscle were split. The posterior fascia /peritoneum was then divided the length of the skin incision and the stomal aperture was gently widened to allow two fingerbreadths easily. The bowel was then gently prolapsed through the ostomy site with the distal bowel in the inferior or dependent position. It came up nicely, however, it was a little tighter than I liked because of the edema in the bowel wall and so I did open up the fascial level a little bit. The bowel was then opened and the suction was placed into the bowel. The proximal contents were then milked distally and suctioned out until we had nice reduction of all the dilatation of the small bowel. The small bowel was again run beginning at the ligament of Treitz and proceeding distally to the ileostomy and there were no other defects or abnormalities noted, with the exception of quite a bit of edema and inflammation. The peritoneal cavity was again copiously irrigated with warm normal saline. A 10 SERGEI was placed through a left lower quadrant stab incision into the pelvis and a second 10 SERGEI was placed through the previous right upper quadrant trocar site and up and above the liver. A piece of Seprafilm was placed over the anterior surface of the bowel. The fascia of the anterior abdominal wall was closed in a running fashion using looped #1 PDS. The wound was copiously irrigated with warm normal saline, and the skin was closed using yehuda. The stoma was then matured in a typical Elizabeth fashion using 3-0 Vicryl. The drains were then secured using 3-0 nylon. A dressing was then placed over the wound and a stomal appliance was placed over the ostomy. All sponge, needle and instrument counts were correct and the patient was returned to the post anesthesia care in stable condition. MD JOCELYN Fisher/ /11:21 PM /4:56 PM THIEN
[2016-08-26] MEDS: FAT EMULSION 20% INJ 250 ML (@10 mls/hr) IV-CENTRAL SCH (20:51)
[2016-08-26] MEDS: CLINIMIX 4.25/25 (Cust.Renal Central) 2000 mL- >42 mls/hr IV-CENTRAL SCH ×9 (20:51)
[2016-08-27] VITALS (18 sets, daily range): BP systolic 106–155; BP diastolic 49–78; PULSE 91–118; RESP 22; TEMP 98.2–100.4; O2SAT 94–99
[2016-08-27] MEDS: INSULIN ASPART SUPPLEMENTAL SCALE SQ SCH ×4 (00:17→18:31)
[2016-08-27] MEDS: CEFEPIME INJ 2,000 MG in SODIUM CHLORIDE 0.9% INJ 100 ML IV SCH ×2 (00:55→08:07)
[2016-08-27] MEDS: RESP: ALBUTEROL 2.5 MG/3 ML NEB (SCH) INH ×7 (01:01→23:43)
[2016-08-27] MEDS: LORazepam 2 MG/ML VIAL IV PUSH PRN (01:14)
[2016-08-27] MEDS: metroNIDAZOLE 500 MG INJ 100 ML IV SCH ×4 (03:13→20:52)
[2016-08-27] MEDS: MORPHINE SULFATE 4 MG/ML INJ IV PRN (03:14)
--- NOTE | 2016-08-27 05:41 | RADRPT ---
EXAM DATE/TIME: 08/27/2016 04:30 [facility] COMPARISON: CHEST SINGLE AP, August 26, 2016, 4:45. INDICATIONS : F/U resp failure MEDICAL HISTORY : Chronic obstructive pulmonary disease. SURGICAL HISTORY : None. ENCOUNTER: Subsequent ACUITY: 4 - 6 days PAIN SCORE: Non-responsive. LOCATION: Bilateral chest FINDINGS: Endotracheal tube, nasogastric tube, right neck dialysis catheter and left subclavian central line ar e stable in position. Perihilar and basilar parenchymal opacities are grossly unchanged. Cardiac cont ours are grossly stable. CONCLUSION: No significant interval change Claude Rosario MD on August 27, 2016 at 5:38 Board Certified Radiologist. This report was verified electronically.
[2016-08-27 05:48] LABS: AUTOMATED NEUTROPHIL # 17.6 TH/MM3 (1.8-7.7); BASOPHIL # 0.1 TH/MM3 (0-0.2); BASOPHIL % 0.4 % (0.0-2.0); EOSINOPHIL # 0.1 TH/MM3 (0-0.4); EOSINOPHIL % 0.6 % (0.0-4.0); HEMATOCRIT 30.7 % (39.0-51.0); LYMPH % 4.8 % (9.0-44.0); MEAN CELL VOLUME 87.3 FL (80.0-100.0); MEAN CORPUSCULAR HEMOGLOBIN 28.1 PG (27.0-34.0); MEAN CORPUSCULAR HGB CONC 32.2 % (32.0-36.0); MONO % 5.1 % (0.0-8.0); NEUT % 89.1 % (16.0-70.0); PLATELET COUNT 161 TH/MM3 (150-450); RED BLOOD COUNT 3.52 MIL/MM3 (4.50-5.90); RED CELL DISTRIBUTION WIDTH 15.1 % (11.6-17.2); WHITE BLOOD COUNT 19.7 TH/MM3 (4.0-11.0)
[2016-08-27 06:07] LABS: HEMO FLAGS AUTO DIFF
[2016-08-27 06:19] LABS: ANION GAP 10 MEQ/L (5-15); AST (GOT) 37 U/L (15-37); BICARBONATE 25.7 MEQ/L (21.0-32.0); BLOOD UREA NITROGEN 73 MG/DL (7-18); CHLORIDE 105 MEQ/L (98-107); GLOMERULAR FILTRATION RATE 17 ML/MIN (>89); MAGNESIUM 2.1 MG/DL (1.5-2.5); POTASSIUM 3.8 MEQ/L (3.5-5.1); SODIUM (NA) 141 MEQ/L (136-145)
[2016-08-27 06:27] LABS: ALKALINE PHOSPHATASE 68 U/L (45-117); ALT (GPT) 8 U/L (12-78); TOTAL BILIRUBIN ADULT 0.6 MG/DL (0.2-1.0)
[2016-08-27 06:32] LABS: BANDS 19 % (0-6); EOSINOPHILS 1 % (0-4); MYELOCYTES 6 % (0-0); NEUTROPHIL # MANUAL DIFF 19.1 TH/MM3 (1.8-7.7); POLYS (SEG NEUTROPHILS) 71 % (16-70); PROMYELOCYTES 1 % (0-0); WBC DIFF SAMPLE 100
[2016-08-27 06:33] LABS: PLATELET ESTIMATE SMEAR LOW (NORMAL); PLATELET MORPHOLOGY NORMAL (NORMAL); SCAN/DIFF FINAL DIFF MANUAL
[2016-08-27] MEDS: MIDAZOLAM 100 MG/ML INJ 100 ML IV SCH (06:46)
[2016-08-27] MEDS: fentaNYL 2,500 MCG/NS 250 ML IV SCH (06:46)
[2016-08-27] MEDS: METOCLOPRAMIDE HCL 10 MG/2 ML VIAL IV PUSH SCH ×3 (06:47→22:26)
[2016-08-27] MEDS: HEPARIN SODIUM - SQ 10,000 UNITS/ML VIAL SQ SCH ×2 (06:47→18:31)
--- NOTE | 2016-08-27 07:50 | HHI.CCPN ---
Subjective Remarks/Hospital Course 08/25: Patient is a 58-year-old male with past medical history significant COPD who, on 08/18/16, underwent Laparoscopic robotic extensive lysis of adhesions, low anterior resection and small bowel resection. Apparently he was brought in by Dr. Moffett for Diverticulitis. Patient has a history of hypertension, COPD, and continues to smoke one pack of cigarettes a day. Postoperatively patient became progressively short of breath. Pulmonary was consulted on 08/21/16 as the patient was becoming more hypoxemic requiring BiPAP. CT of the chest PE protocol did not show any pulmonary embolism. Patient was placed on breathing treatments and IV Solu-Medrol 40 mg every [address] Renteria. Today a.m. patient was on 100% nonrebreather. Patient was diagnosed with an anastomotic leak today and was taken back to the OR by Dr. Moffett. He underwent exploratory laparotomy, I&D and loop ileostomy today. Postop patient remained hypoxemic requiring 70% oxygen, and hence was left intubated and critical care medicine was consulted. Dr. Arce evaluated the patient in ICU. He remained hypoxemic, FiO2 70%. Chest x-ray shows bibasilar mild infiltrates. On sedation lightening patient became very hypertensive, not following commands probably secondary to residual NM blockade received while being transported to ICU. Patient on receiving vancomycin Levaquin and Flagyl per Dr. Moffett. Dr. Arce added cefepime to cover for Pseudomonas. Holding Solu-Medrol due to anastomotic leak. 08/26: Remains sedated, orally intubated on mechanical ventilation. Went into anuric renal failure yesterday which did not respond to fluid boluses and diuretics hence was started on hemodialysis after placement of right IJ Vas- Cath. Currently sedated, arousable, remains orally intubated on mechanical ventilation. Blood pressure borderline last evening following dialysis for which she was started on low-dose vasopressin 0.03 units per minute and Levophed which is currently at 1 jose per minute. Started on TPN last night following which he has been hyperglycemic. 08/27: Sedated, arousable, orally intubated on mechanical ventilation. Spiking fevers overnight. Off Levophed, transiently off vasopressin. Remains on TPN. Objective Vital Signs Date Time Temp Pulse Resp B/P Pulse Ox O2 Delivery O2 Flow Rate FiO2 08/27/16 07:00 94 Mechanical Ventilator 40 08/27/16 06:00 118 08/27/16 04:00 100.4 22 106/59 141/49 08/24/16 07:49 15.00 Intake and Output 08/26/16 08/26/16 08/26/16 07:59 15:59 23:59 Intake Total 1430 ml 1214 ml 1316 ml Output Total 485 ml 2330 ml 290 ml Balance 945 ml -1116 ml 1026 ml Result Diagram: 08/27/16 0530 08/27/16 0530 Other Results Microbiology Date/Time Procedure Status Source Growth 08/24/16 11:15 Gram Stain - Final Complete Wound Abdomen 08/24/16 11:15 Wound Culture - Final Complete Wound Abdomen Imaging Last 24 hours Impressions Chest X-Ray 08/27/16 0600 Signed Impressions: Service Date/Time: Saturday, August 27, 2016 04:30 - CONCLUSION: No significant interval change Claude Rosario MD Last Impressions Chest X-Ray 08/25/16 0000 Signed Impressions: Service Date/Time: Thursday, August 25, 2016 16:55 - CONCLUSION: 1. Uncomplicated line placement. No evidence of pneumothorax. Arcadio Suárez MD Abdomen/Pelvis CT 08/24/16 0000 Signed Impressions: Service Date/Time: August 17:30 - CONCLUSION: There is a fistulous tract arising from the superior aspect of the anastomosis causing Gastroview to leak into the right mid pelvis. There is a significant amount of free fluid or free air surrounding the liver and throughout the abdomen. This case was discussed in detail with Dr. Moffett. Mikel Nguyen MD Abdomen X-Ray 08/24/16 0000 Signed Impressions: Service Date/Time: August 07:44 - CONCLUSION: Gaseous distention of multiple bowel loops possible ileus. Jony Miller MD Enema w/Water Soluble 08/23/16 0000 Signed Impressions: Service Date/Time: Tuesday, August 23, 2016 10:12 - CONCLUSION: Anastomosis appears patent without extravasation. Aditya Rocha MD FACR CT Angiography 08/21/16 0000 Signed Impressions: Service Date/Time: Sunday, August 21, 2016 14:05 - CONCLUSION: 1. There is no evidence for central pulmonary emboli. 2. Minimal subcutaneous air as well as free intraperitoneal air. Aditya Rocha MD FACR Objective Remarks GENERAL: Obese well-developed male who is intubated, sedated SKIN: Erythema of the skin on right lower abdomen HEAD: Atraumatic. Normocephalic. EYES: Pupils equal round and reactive. ENT: Orotracheally intubated NECK: Trachea midline. No JVD or lymphadenopathy. CARDIOVASCULAR: Regular rate and rhythm without murmurs, gallops, or rubs. RESPIRATORY: Orally intubated on mechanical ventilation, air entry decreased bilaterally at bases him a scattered rhonchi, no wheezing. GASTROINTESTINAL: Abdomen distended. Midline incision clean and intact. Bilateral SERGEI drains at the flanks with sero-sanguinous output. Ileostomy noted. Erythema of the skin lateral to ileostomy. MUSCULOSKELETAL: Extremities without clubbing, cyanosis, or edema. NEUROLOGICAL: Sedated, arousable, opens eyes, pupils 3 mm bilaterally reactive, orally intubated on mechanical ventilation Urinary Catheter: Yes Assessment to: Continue Vascular Central Line Catheter: Yes Assessment to: Continue Line: Central Venous Catheter A/P Assessment and Plan ASSESSMENT: Postoperative acute hypoxemic respiratory failure on mech ventilation Acute COPD exacerbation Probable healthcare associated pneumonia Septic shock Anastomotic leak status post exploratory laparotomy, I&D, loop ileostomy 08/24/16 s/p Laparoscopic robotic extensive ANNA MARIE, robotic LAR and small bowel resection Acute renal failure Hyperkalemia (resolved) History of diverticulitis History of COPD History of hypertension PLAN: NEURO: -On Sedation and pain control with Versed and fentanyl infusions. Titrated off propofol in view of hypotension. -Daily sedation vacation, follow neuro status. RESP: Acute hypoxemic respiratory failure COPD exacerbation Probable healthcare associated pneumonia -Continue ACV 22/600/40%/+7, titrate FiO2 to keep saturation above 90 -DuoNeb every 4 hours scheduled and when necessary, Symbicort 2 puffs every 12 -Broad-spectrum antibiotics as below -Attempt to titrate PEEP down to +5 as tolerated before initiating C Pap trials. CV: Hypotension secondary to septic shock -Received multiple fluid boluses on 08/25. IV fluids discontinued subsequently in view of anuria necessitating hemodialysis. On TPN -Low-dose vasopressin 0.03 units per minute, Levophed as needed to keep map greater than 65 -Attempt even fluid balance with hemodialysis. GI/ Nutrition: Laparoscopic robotic ANNA MARIE, robotic LAR and small bowel resection with anastomotic leak History of diverticulitis -Status post exploratory laparotomy, I&D, loop ileostomy 08/24/16 -Postoperative management per Dr. Moffett. Broad-spectrum antibiotics as below. Follow SERGEI drain output. - On Reglan to improve GI motility -Started on TPN 08/25 : -Monitor renal function closely. Mg catheter. -IV fluids discontinued in view of anuric renal failure and hyperkalemia necessitating hemodialysis. Nephrology consulted and discussed case with Dr. Kuo on 08/25 -Attempt maintaining even to slightly negative fluid balance if blood pressure permits. ID: Anastomotic leak Sepsis Probable HCAP -IV vancomycin, Flagyl and Levaquin per Dr. Moffett. Cefepime for broadening abx coverage added 08/26. Spiking temperatures. Added micafungin on 08/27 for antifungal coverage - HEME: -Monitor CBC, CMP, coags ENDO: -Sliding-scale insulin for glycemic control. Add insulin 20 units in each bag of TPN to control hyperglycemia. PROPH: -Bilateral lower extremity SCDs. Heparin subcutaneous for DVT prophylaxis. Protonix for GI prophylaxis LINES: -Left subclavian central line placed in the OR 08/24 - RIJ dialysis catheter 08/25 CC time 45 min excluding procedures Satya Quarles MD Aug 27, 2016 07:50
[2016-08-27] MEDS: FUROSEMIDE 20 MG/2 ML VIAL IV PUSH SCH ×2 (08:06→20:52)
[2016-08-27] MEDS: PANTOPRAZOLE SODIUM 40 MG VIAL IVP SCH (08:06)
[2016-08-27] MEDS: CHLORHEXIDINE 0.12% (ORAL KIT) 15 ML CUP MT SCH ×2 (08:07→20:45)
[2016-08-27] MEDS: SODIUM CHLORIDE 0.9% FLUSH 5 ML FLUSH IVF SCH ×2 (09:00→20:52)
[2016-08-27] MEDS: MICAFUNGIN INJ 100 MG in SODIUM CHLORIDE 0.9% INJ 100 ML IV SCH (10:11)
[2016-08-27] MEDS: VASOPRESSIN INJ 40 UNITS in DEXTROSE 5% IN WATER 100ML INJ 98 ML IV SCH ×2 (14:10)
--- NOTE | 2016-08-27 15:29 | HHI.NPPN ---
Objective Data Data 08/26/16 08/27/16 19:00 07:00 Intake Total 1214 ml 2328 ml Output Total 2330 ml 590 ml Balance -1116 ml 1738 ml IV Total 523 ml 1155 ml TPN/PPN 609 ml 1015 ml Lipid 82 ml 158 ml Output Urine Total 250 ml 250 ml Stool Total 0 ml 10 ml Gastric Drainage Total 50 ml 300 ml Drainage Total 30 ml 30 ml Hemodialysis 2000 ml # Bowel Movements 0 Vital Signs Date Time Temp Pulse Resp B/P Pulse Ox O2 Delivery O2 Flow Rate FiO2 08/27/16 12:36 95 40 08/27/16 12:00 98.2 97 22 130/71 95 Arterial Line 08/27/16 12:00 97 08/27/16 12:00 40 08/27/16 12:00 92 118/65 08/27/16 10:00 98 08/27/16 08:15 95 40 08/27/16 08:00 100.0 92 22 118/65 94 08/27/16 08:00 40 08/27/16 08:00 92 08/27/16 08:00 92 118/65 08/27/16 07:00 94 Mechanical Ventilator 40 08/27/16 06:00 118 08/27/16 04:00 101 08/27/16 04:00 100.4 94 22 106/59 99 141/49 08/27/16 04:00 40 08/27/16 04:00 102 106/59 141/49 08/27/16 03:59 99 40 08/27/16 02:00 91 08/27/16 01:02 96 40 08/27/16 00:00 102 119/64 139/52 08/27/16 00:00 40 08/27/16 00:00 100.4 94 22 119/64 96 139/52 08/27/16 00:00 94 08/26/16 22:00 93 08/26/16 20:04 98 40 08/26/16 20:00 98 08/26/16 20:00 102 114/63 135/52 08/26/16 20:00 50 08/26/16 20:00 100.2 95 22 114/63 97 135/52 08/26/16 19:00 97 Mechanical Ventilator 50 08/26/16 18:00 82 08/26/16 16:00 50 08/26/16 16:00 93 08/26/16 16:00 94 150/61 08/26/16 16:00 100.6 96 22 99 150/61 08/26/16 15:35 100 50 -: 08/27/16 0530 08/27/16 0530 Assessment/Plan Problem List: (1) Acute renal failure Plan: in a pt with normal renal function at baseline he had VIRIDIANA on 08/21 which was likely related to contrast exposure; that did resolve now borderline hypotensive, with significant source of intraabdominal infection , likely septic now causing acute decline in renal function he has become anuric and hyperkalemic, he had HD yesterday 2 L UF Vanco to be given next HD (2) Diverticulitis Plan: s/p colon resection with complications surgery following, appreciate recommendations Km Maya MD Aug 27, 2016 15:29
[2016-08-27] MEDS: FAT EMULSION 20% INJ 250 ML (@10 mls/hr) IV-CENTRAL SCH (20:51)
[2016-08-27] MEDS: CLINIMIX 4.25/25 (Cust.Renal Central) 2000 mL- >42 mls/hr IV-CENTRAL SCH ×9 (20:51)
[2016-08-27] MEDS: LEVOFLOXACIN 750 MG PREMIX INJ 150 ML IV SCH (22:26)
[2016-08-28] VITALS (18 sets, daily range): BP systolic 111–124; BP diastolic 58–65; PULSE 92–109; RESP 20–22; TEMP 98.2–99.7; O2SAT 94–99
[2016-08-28] MEDS: INSULIN ASPART SUPPLEMENTAL SCALE SQ SCH ×4 (00:41→17:33)
[2016-08-28] MEDS: metroNIDAZOLE 500 MG INJ 100 ML IV SCH ×4 (02:13→20:19)
[2016-08-28] MEDS: fentaNYL 2,500 MCG/NS 250 ML IV SCH ×2 (02:58→14:46)
[2016-08-28 03:33] LABS: AUTOMATED NEUTROPHIL # 19.5 TH/MM3 (1.8-7.7); BASOPHIL # 0.2 TH/MM3 (0-0.2); BASOPHIL % 0.9 % (0.0-2.0); EOSINOPHIL # 0.3 TH/MM3 (0-0.4); EOSINOPHIL % 1.4 % (0.0-4.0); HEMATOCRIT 32.1 % (39.0-51.0); LYMPHOCYTE # 0.9 TH/MM3 (1.0-4.8); MEAN CELL VOLUME 87.9 FL (80.0-100.0); MEAN CORPUSCULAR HEMOGLOBIN 27.7 PG (27.0-34.0); MEAN CORPUSCULAR HGB CONC 31.5 % (32.0-36.0); MONO % 4.6 % (0.0-8.0); NEUT % 89.1 % (16.0-70.0); PLATELET COUNT 173 TH/MM3 (150-450); RED BLOOD COUNT 3.65 MIL/MM3 (4.50-5.90); RED CELL DISTRIBUTION WIDTH 15.1 % (11.6-17.2); WHITE BLOOD COUNT 21.9 TH/MM3 (4.0-11.0)
[2016-08-28 03:35] LABS: HEMO FLAGS AUTO DIFF
[2016-08-28 03:56] LABS: ALKALINE PHOSPHATASE 81 U/L (45-117); ALT (GPT) 7 U/L (12-78); ANION GAP 11 MEQ/L (5-15); AST (GOT) 33 U/L (15-37); BICARBONATE 24.5 MEQ/L (21.0-32.0); BLOOD UREA NITROGEN 92 MG/DL (7-18); CHLORIDE 106 MEQ/L (98-107); GLOMERULAR FILTRATION RATE 14 ML/MIN (>89); MAGNESIUM 2.3 MG/DL (1.5-2.5); POTASSIUM 4.1 MEQ/L (3.5-5.1); SODIUM (NA) 141 MEQ/L (136-145); TOTAL BILIRUBIN ADULT 0.7 MG/DL (0.2-1.0)
[2016-08-28] MEDS: RESP: ALBUTEROL 2.5 MG/3 ML NEB (SCH) INH ×6 (04:27→23:55)
[2016-08-28] MEDS: HEPARIN SODIUM - SQ 10,000 UNITS/ML VIAL SQ SCH ×2 (06:03→17:17)
[2016-08-28] MEDS: METOCLOPRAMIDE HCL 10 MG/2 ML VIAL IV PUSH SCH ×3 (06:04→21:30)
[2016-08-28 06:18] LABS: BANDS 15 % (0-6); BLASTS 1 % (0-0); CORRECTED NUCLEATED RBC 1 /100 WBC (0-0); EOSINOPHILS 1 % (0-4); METAMYELOCYTES 6 % (0-1); MYELOCYTES 8 % (0-0); NEUTROPHIL # MANUAL DIFF 19.1 TH/MM3 (1.8-7.7); PLATELET ESTIMATE SMEAR NORMAL (NORMAL); PLATELET MORPHOLOGY NORMAL (NORMAL); POLYS (SEG NEUTROPHILS) 53 % (16-70); PROMYELOCYTES 5 % (0-0); SCAN/DIFF FINAL DIFF MANUAL; WBC DIFF SAMPLE 100
[2016-08-28] MEDS: CEFEPIME INJ 2,000 MG in SODIUM CHLORIDE 0.9% INJ 100 ML IV SCH (07:01)
[2016-08-28] MEDS: CHLORHEXIDINE 0.12% (ORAL KIT) 15 ML CUP MT SCH ×2 (08:04→20:19)
[2016-08-28] MEDS: MICAFUNGIN INJ 100 MG in SODIUM CHLORIDE 0.9% INJ 100 ML IV SCH (08:10)
[2016-08-28] MEDS: FUROSEMIDE 20 MG/2 ML VIAL IV PUSH SCH ×2 (08:12→20:20)
[2016-08-28] MEDS: PANTOPRAZOLE SODIUM 40 MG VIAL IVP SCH (08:12)
[2016-08-28] MEDS: SODIUM CHLORIDE 0.9% FLUSH 5 ML FLUSH IVF SCH ×2 (08:12→20:20)
--- NOTE | 2016-08-28 10:01 | HHI.CCPN ---
Subjective Remarks/Hospital Course 08/25: Patient is a 58-year-old male with past medical history significant COPD who, on 08/18/16, underwent Laparoscopic robotic extensive lysis of adhesions, low anterior resection and small bowel resection. Apparently he was brought in by Dr. Moffett for Diverticulitis. Patient has a history of hypertension, COPD, and continues to smoke one pack of cigarettes a day. Postoperatively patient became progressively short of breath. Pulmonary was consulted on 08/21/16 as the patient was becoming more hypoxemic requiring BiPAP. CT of the chest PE protocol did not show any pulmonary embolism. Patient was placed on breathing treatments and IV Solu-Medrol 40 mg every [address] Renteria. Today a.m. patient was on 100% nonrebreather. Patient was diagnosed with an anastomotic leak today and was taken back to the OR by Dr. Moffett. He underwent exploratory laparotomy, I&D and loop ileostomy today. Postop patient remained hypoxemic requiring 70% oxygen, and hence was left intubated and critical care medicine was consulted. Dr. Arce evaluated the patient in ICU. He remained hypoxemic, FiO2 70%. Chest x-ray shows bibasilar mild infiltrates. On sedation lightening patient became very hypertensive, not following commands probably secondary to residual NM blockade received while being transported to ICU. Patient on receiving vancomycin Levaquin and Flagyl per Dr. Moffett. Dr. Arce added cefepime to cover for Pseudomonas. Holding Solu-Medrol due to anastomotic leak. 08/26: Remains sedated, orally intubated on mechanical ventilation. Went into anuric renal failure yesterday which did not respond to fluid boluses and diuretics hence was started on hemodialysis after placement of right IJ Vas- Cath. Currently sedated, arousable, remains orally intubated on mechanical ventilation. Blood pressure borderline last evening following dialysis for which she was started on low-dose vasopressin 0.03 units per minute and Levophed which is currently at 1 jose per minute. Started on TPN last night following which he has been hyperglycemic. 08/27: Sedated, arousable, orally intubated on mechanical ventilation. Spiking fevers overnight. Off Levophed, transiently off vasopressin. Remains on TPN. 08/28: Remains sedated, arousable, orally intubated on mechanical ventilation. On low-dose vasopressin. TPN continues. Made about 500 cc of urine in the last 24 hours. Objective Vital Signs Date Time Temp Pulse Resp B/P Pulse Ox O2 Delivery O2 Flow Rate FiO2 08/28/16 08:50 99 40 08/28/16 06:00 92 08/28/16 04:00 99.5 22 115/60 08/27/16 19:00 Mechanical Ventilator 08/24/16 07:49 15.00 Intake and Output 08/27/16 08/27/16 08/28/16 08:00 16:00 00:00 Intake Total 1012 ml 1070 ml 895 ml Output Total 300 ml 470 ml 265 ml Balance 712 ml 600 ml 630 ml Result Diagram: 08/28/16 0315 08/28/16 0315 Imaging Last 24 hours Impressions Chest X-Ray 08/27/16 0600 Signed Impressions: Service Date/Time: Saturday, August 27, 2016 04:30 - CONCLUSION: No significant interval change Claude Rosario MD Last Impressions Chest X-Ray 08/25/16 0000 Signed Impressions: Service Date/Time: Thursday, August 25, 2016 16:55 - CONCLUSION: 1. Uncomplicated line placement. No evidence of pneumothorax. Arcadio Suárez MD Abdomen/Pelvis CT 08/24/16 0000 Signed Impressions: Service Date/Time: August 17:30 - CONCLUSION: There is a fistulous tract arising from the superior aspect of the anastomosis causing Gastroview to leak into the right mid pelvis. There is a significant amount of free fluid or free air surrounding the liver and throughout the abdomen. This case was discussed in detail with Dr. Moffett. Mikel Nguyen MD Abdomen X-Ray 08/24/16 0000 Signed Impressions: Service Date/Time: August 07:44 - CONCLUSION: Gaseous distention of multiple bowel loops possible ileus. Jony Miller MD Enema w/Water Soluble 08/23/16 0000 Signed Impressions: Service Date/Time: Tuesday, August 23, 2016 10:12 - CONCLUSION: Anastomosis appears patent without extravasation. Aditya Rocha MD FACR CT Angiography 08/21/16 0000 Signed Impressions: Service Date/Time: Sunday, August 21, 2016 14:05 - CONCLUSION: 1. There is no evidence for central pulmonary emboli. 2. Minimal subcutaneous air as well as free intraperitoneal air. Aditya Rocha MD FACR Objective Remarks GENERAL: Obese well-developed male who is intubated, sedated SKIN: Erythema of the skin on right lower abdomen HEAD: Atraumatic. Normocephalic. EYES: Pupils equal round and reactive. ENT: Orotracheally intubated NECK: Trachea midline. No JVD or lymphadenopathy. CARDIOVASCULAR: Regular rate and rhythm without murmurs, gallops, or rubs. RESPIRATORY: Orally intubated on mechanical ventilation, air entry decreased bilaterally at bases him a scattered rhonchi, no wheezing. GASTROINTESTINAL: Abdomen distended. Midline incision clean and intact. Bilateral SERGEI drains at the flanks with sero-sanguinous output. Ileostomy noted. Erythema of the skin lateral to ileostomy. MUSCULOSKELETAL: Extremities without clubbing, cyanosis, or edema. NEUROLOGICAL: Sedated, arousable, opens eyes, pupils 3 mm bilaterally reactive, orally intubated on mechanical ventilation Line: Central Venous Catheter A/P Assessment and Plan ASSESSMENT: Postoperative acute hypoxemic respiratory failure on mech ventilation Acute COPD exacerbation Probable healthcare associated pneumonia Septic shock Anastomotic leak status post exploratory laparotomy, I&D, loop ileostomy 08/24/16 s/p Laparoscopic robotic extensive ANNA MARIE, robotic LAR and small bowel resection Acute renal failure Hyperkalemia (resolved) History of diverticulitis History of COPD History of hypertension PLAN: NEURO: -On Sedation and pain control with Versed and fentanyl infusions. Titrated off propofol in view of hypotension. -Daily sedation vacation, follow neuro status. RESP: Acute hypoxemic respiratory failure COPD exacerbation Probable healthcare associated pneumonia -Continue ACV 22/600/40%/+5, titrate FiO2 to keep saturation above 90 -DuoNeb every 4 hours scheduled and when necessary, Symbicort 2 puffs every 12 -Broad-spectrum antibiotics as below -Start daily C Pap trials. CV: Hypotension secondary to septic shock -Received multiple fluid boluses on 08/25. IV fluids discontinued subsequently in view of anuria necessitating hemodialysis. On TPN -Low-dose vasopressin 0.03 units per minute, off Levophed currently -Attempt negative fluid balance with hemodialysis. GI/ Nutrition: Laparoscopic robotic ANNA MARIE, robotic LAR and small bowel resection with anastomotic leak History of diverticulitis -Status post exploratory laparotomy, I&D, loop ileostomy 08/24/16 -Postoperative management per Dr. Moffett. Broad-spectrum antibiotics as below. Follow SERGEI drain output. - On Reglan to improve GI motility -Started on TPN 08/25 : -Monitor renal function closely. Mg catheter. -IV fluids discontinued in view of anuric renal failure and hyperkalemia necessitating hemodialysis. Nephrology consulted and discussed case with Dr. Kuo on 08/25 -Attempt maintaining even to slightly negative fluid balance if blood pressure permits. ID: Anastomotic leak Sepsis Probable HCAP -IV vancomycin, Flagyl and Levaquin per Dr. Moffett. Cefepime for broadening abx coverage added 08/26. Spiking temperatures so added micafungin on 08/27 for antifungal coverage - HEME: -Monitor CBC, CMP, coags ENDO: -Sliding-scale insulin for glycemic control. Add insulin 20 units in each bag of TPN to control hyperglycemia. PROPH: -Bilateral lower extremity SCDs. Heparin subcutaneous for DVT prophylaxis. Protonix for GI prophylaxis LINES: -Left subclavian central line placed in the OR 08/24 - RIJ dialysis catheter 08/25 CC time 45 min excluding procedures Satya Quarles MD Aug 28, 2016 10:01
[2016-08-28] MEDS: RESP: ALBUTEROL 2.5 MG/IPRATROPIUM 0.5 MG NEB (PRN) NEB (11:14)
--- NOTE | 2016-08-28 12:00 | HHI.NPPN ---
Subjective Renal Failure: Acute Interval History He remains intubated, awakens and nods head yes/no. Oliguric. Creatinine is higher. Son at bedside. (Fransisca Canela) Review of Systems General General Remarks unable to evaluate (Fransisca Canela) Objective Data Data 08/27/16 08/28/16 19:00 07:00 Intake Total 1070 ml 2105 ml Output Total 470 ml 450 ml Balance 600 ml 1655 ml IV Total 464 ml 930 ml TPN/PPN 526 ml 1020 ml Lipid 80 ml 155 ml Output Urine Total 225 ml 225 ml Stool Total 0 ml 5 ml Gastric Drainage Total 200 ml 200 ml Drainage Total 45 ml 20 ml # Bowel Movements 0 0 Vital Signs Date Time Temp Pulse Resp B/P Pulse Ox O2 Delivery O2 Flow Rate FiO2 08/28/16 08:50 99 40 08/28/16 06:00 92 08/28/16 04:28 96 40 08/28/16 04:00 103 08/28/16 04:00 99.5 103 22 115/60 96 08/28/16 04:00 40 08/28/16 04:00 94 115/60 08/28/16 02:00 95 08/28/16 00:00 99.7 94 22 120/65 96 08/28/16 00:00 94 08/28/16 00:00 40 08/28/16 00:00 94 120/65 08/27/16 23:44 96 40 08/27/16 22:00 102 08/27/16 20:00 99 155/78 08/27/16 20:00 99 08/27/16 20:00 40 08/27/16 20:00 99.7 99 22 155/78 98 08/27/16 19:52 99 40 08/27/16 19:00 98 Mechanical Ventilator 50 08/27/16 16:25 97 40 08/27/16 16:00 94 122/63 08/27/16 16:00 98.4 94 22 122/63 97 08/27/16 16:00 94 08/27/16 16:00 40 08/27/16 14:00 94 08/27/16 12:36 95 40 08/27/16 12:00 98.2 97 22 130/71 95 Arterial Line 08/27/16 12:00 97 08/27/16 12:00 40 08/27/16 12:00 92 118/65 (Fransisca Canela) -: 08/28/16 0315 08/28/16 0315 Imaging Last 72 hours Impressions Chest X-Ray 08/27/16 0600 Signed Impressions: Service Date/Time: Saturday, August 27, 2016 04:30 - CONCLUSION: No significant interval change Claude Rosario MD Chest X-Ray 08/26/16599 Signed Impressions: Service Date/Time: Friday, August 26, 2016 04:45 - CONCLUSION: No significant interval change Claude Rosario MD Tubes & Lines: Vas-Cath, Borden Drip Comment levophed, TPN (Fransisca Canela) Physical Exam General Appearance: Well Developed, Well Nourished, No Acute Distress (Fransisca Canela) Throat Throat Exam: Oral Mucosa [place] & Moist (Fransisca Canela) Pulmonary Resp Exam: Breath Sounds Equal, No Distress, Crackles, Diminished Breath Sounds Resp Remarks vented (Fransisca Canela) Cardiology CV Exam: Regular, Normal Sinus Rhythm (Fransisca Canela) Gastrointestinal/Abdomen GI Exam: Distended GI Remarks distended, firm; colostomy with beefy red stoma; hyperactive bowel sounds ( Fransisca Canela) Musculoskeletal MS Exam: Joints Intact, Normal Tone (Fransisca Canela) Integumentary Skin Exam: Warm, Dry (Fransisca Canela) Extremeties Extremities Exam: Pedal Pulses Palpable, Moderate Edema (Fransisca Canela) Neurologic Neuro Exam: Alert, Moving All Extremities, Obtunded (Fransisca Canela) VTE Prophylaxis Device: SCDs (Fransisca Canela) Assessment/Plan Discussed Condition With: Son Assessment Summary: VIRIDIANA/Acute Renal Failure, Acute Tubular Necrosis Problem List: (1) Acute renal failure Plan: in a pt with normal renal function at baseline he had VIRIDIANA on 08/21 which was likely related to contrast exposure; that did resolve he suffered ATN on 08/25, became anuric and hyperkalemic, HD initiated Sun/Sun he will require dialysis again today he is oliguric, borden in place fluid overloaded avoid IVF monitor vascath function monitor BP, pressors to maintain MAP daily renal panel, await renal recovery (2) Diverticulitis Plan: s/p colon resection with complications surgery following, appreciate recommendations continue present antibiotics including vancomycin, flagyl, levaquin TPN started (Fransisca Canela) Plan patient was seen and examined. Agree with above assessment and plan. (Tito Kuo MD) Fransisca Canela Aug 28, 2016 11:59 Tito Kuo MD Aug 28, 2016 16:02
[2016-08-28] MEDS: VASOPRESSIN INJ 40 UNITS in DEXTROSE 5% IN WATER 100ML INJ 98 ML IV SCH ×2 (12:16)
[2016-08-28] MEDS: HEPARIN SODIUM - IV 10,000 UNITS/10 ML VIAL PRN (13:26)
[2016-08-28] MEDS: VANCOMYCIN INJ 1,000 MG in SODIUM CHLOR 0.9% 250 ML INJ 250 ML IV SCH (13:26)
[2016-08-28] MEDS: ALBUMIN HUMAN 25% 25 GM/100 ML BAGP IV PRN (13:27)
[2016-08-28] MEDS: SODIUM CHLOR 0.9% 1000 ML INJ 1,000 ML IV PRN (13:27)
[2016-08-28] MEDS: GENTAMICIN SULFATE (DIALYSIS USE ONLY) 20 MG/2 ML VIAL IV PRN (13:27)
[2016-08-28] MEDS: MANNITOL 12.5 GM/50 ML VIAL IV PRN (13:27)
[2016-08-28] MEDS ORDERED: SOD PHOSPHATE/SOD BIPHOSPHATE (ADULT) ENEMA 133ML PR ONE (15:45)
--- NOTE | 2016-08-28 16:00 | HHI.PR ---
Subjective Remarks POD#10 s/p robotic LAR/SBR/ANNA MARIE, POD#4 s/p ex lap, washout, diverting loop ileostomy Ventilated Opens eyes to voice Objective Vital Signs Date Time Temp Pulse Resp B/P Pulse Ox O2 Delivery O2 Flow Rate FiO2 08/28/16 11:15 95 40 08/28/16 11:00 95 40 08/28/16 08:50 99 40 08/28/16 08:00 97 Mechanical Ventilator 40 08/28/16 06:00 92 08/28/16 04:28 96 40 08/28/16 04:00 103 08/28/16 04:00 99.5 103 22 115/60 96 08/28/16 04:00 40 08/28/16 04:00 94 115/60 08/28/16 02:00 95 08/28/16 00:00 99.7 94 22 120/65 96 08/28/16 00:00 94 08/28/16 00:00 40 08/28/16 00:00 94 120/65 08/27/16 23:44 96 40 08/27/16 22:00 102 08/27/16 20:00 99 155/78 08/27/16 20:00 99 08/27/16 20:00 40 08/27/16 20:00 99.7 99 22 155/78 98 08/27/16 19:52 99 40 08/27/16 19:00 98 Mechanical Ventilator 50 08/27/16 16:25 97 40 08/27/16 16:00 94 122/63 08/27/16 16:00 98.4 94 22 122/63 97 08/27/16 16:00 94 08/27/16 16:00 40 I/O 08/27/16 08/27/16 08/27/16 08/28/16 08/28/16 08/28/16 07:00 15:00 23:00 07:00 15:00 23:00 Intake Total 1012 ml 1070 ml 895 ml 1210 ml Output Total 300 ml 470 ml 265 ml 185 ml 3000 ml Balance 712 ml 600 ml 630 ml 1025 ml -3000 ml IV Total 550 ml 464 ml 320 ml 610 ml TPN/PPN 400 ml 526 ml 500 ml 520 ml Lipid 62 ml 80 ml 75 ml 80 ml Output Urine Total 125 ml 225 ml 150 ml 75 ml Stool Total 5 ml 0 ml 5 ml 0 ml Gastric Drainage Total 150 ml 200 ml 100 ml 100 ml Drainage Total 20 ml 45 ml 10 ml 10 ml Hemodialysis 3000 ml # Bowel Movements 0 0 0 0 Result Diagram: 08/28/1631408/28/16314 Objective Remarks Abdomen soft, mildly distended, tender Right abdominal wall erythema resolved Ileostomy edematous LLQ SERGEI draining stool - small amount Assessment and Plan Assessment and Plan Stool now draining from LLQ site enemas per rectum to see if we can wash out remaining stool distal loop of ileostomy closed at bedside to prevent ileostomy output running over into distal limb WBC's climbing again Consult ID If continued drainage from SERGEI, may need to check CT Scan Respiratory status stable/slight improvement Tolerating CPAP Kidney function stable Making some urine Just finished dialysis Elana Moffett MD Aug 28, 2016 15:59
--- NOTE | 2016-08-28 16:49 | HHI.PR ---
Subjective Remarks YOAA male with robotic surgery,COPD exac Underwent exp lap,I&d and loop iliostomy placement Remains on vent Sedated Tolerated CPAP 4 hrs On Low dose Levophed Son at Objective Vital Signs Vital Signs Date Time Temp Pulse Resp B/P Pulse Ox O2 Delivery O2 Flow Rate FiO2 08/28/16 11:15 95 40 08/28/16 11:00 95 40 08/28/16 08:50 99 40 08/28/16 08:00 97 Mechanical Ventilator 40 08/28/16 06:00 92 08/28/16 04:28 96 40 08/28/16 04:00 103 08/28/16 04:00 99.5 103 22 115/60 96 08/28/16 04:00 40 08/28/16 04:00 94 115/60 08/28/16 02:00 95 08/28/16 00:00 99.7 94 22 120/65 96 08/28/16 00:00 94 08/28/16 00:00 40 08/28/16 00:00 94 120/65 08/27/16 23:44 96 40 08/27/16 22:00 102 08/27/16 20:00 99 155/78 08/27/16 20:00 99 08/27/16 20:00 40 08/27/16 20:00 99.7 99 22 155/78 98 08/27/16 19:52 99 40 08/27/16 19:00 98 Mechanical Ventilator 50 I/O 08/27/16 08/27/16 08/27/16 08/28/16 08/28/16 08/28/16 07:00 15:00 23:00 07:00 15:00 23:00 Intake Total 1012 ml 1070 ml 895 ml 1210 ml Output Total 300 ml 470 ml 265 ml 185 ml 3000 ml Balance 712 ml 600 ml 630 ml 1025 ml -3000 ml IV Total 550 ml 464 ml 320 ml 610 ml TPN/PPN 400 ml 526 ml 500 ml 520 ml Lipid 62 ml 80 ml 75 ml 80 ml Output Urine Total 125 ml 225 ml 150 ml 75 ml Stool Total 5 ml 0 ml 5 ml 0 ml Gastric Drainage Total 150 ml 200 ml 100 ml 100 ml Drainage Total 20 ml 45 ml 10 ml 10 ml Hemodialysis 3000 ml # Bowel Movements 0 0 0 0 Result Diagram: 08/28/1631408/28/165 Objective Remarks GENERAL: WBWN obese male, on Vent , sedated SKIN: Warm and dry. HEAD: Normocephalic. EYES: No scleral icterus. No injection or drainage. NECK: Supple, trachea midline. No JVD or lymphadenopathy. CARDIOVASCULAR: Regular rate and rhythm without murmurs, gallops, or rubs. RESPIRATORY: Breath sounds equal bilaterally. No accessory muscle use. exp rhonchi GASTROINTESTINAL: Abdomen soft, non-tender, Abd distended MUSCULOSKELETAL: No cyanosis, or edema. BACK: Nontender without obvious deformity. No CVA tenderness. A/P Assessment and Plan Resp Failure, on vent COPD exac S/p robotic surgery Anxiety S/p Exp lap PLAN: Cont vent support aerosol nebs Wean Levophed Nebuliser rx qid and prn Abx per ID Monitor CBC DW Son at Robbie Renteria MD Aug 28, 2016 16:48
[2016-08-28] MEDS: FAT EMULSION 20% INJ 250 ML (@10 mls/hr) IV-CENTRAL SCH (20:18)
[2016-08-28] MEDS: CLINIMIX 4.25/25 (Cust.Renal Central) 2000 mL- >42 mls/hr IV-CENTRAL SCH ×9 (20:19)
[2016-08-29] VITALS (18 sets, daily range): BP systolic 114–170; BP diastolic 55–90; PULSE 95–116; RESP 21–22; TEMP 98.3–99.4; O2SAT 94–98
[2016-08-29] MEDS: INSULIN ASPART SUPPLEMENTAL SCALE SQ SCH ×4 (00:30→17:55)
[2016-08-29] MEDS: fentaNYL 2,500 MCG/NS 250 ML IV SCH ×2 (00:30→12:31)
[2016-08-29] MEDS: RESP: ALBUTEROL 2.5 MG/3 ML NEB (SCH) INH ×4 (03:26→20:03)
[2016-08-29] MEDS: MIDAZOLAM 100 MG/ML INJ 100 ML IV SCH (03:39)
[2016-08-29] MEDS: metroNIDAZOLE 500 MG INJ 100 ML IV SCH ×4 (03:48→20:42)
[2016-08-29] MEDS: METOCLOPRAMIDE HCL 10 MG/2 ML VIAL IV PUSH SCH ×3 (05:23→20:42)
[2016-08-29] MEDS: HEPARIN SODIUM - SQ 10,000 UNITS/ML VIAL SQ SCH ×2 (05:48→17:56)
--- NOTE | 2016-08-29 07:35 | HHI.PR ---
Subjective Remarks POD#11 s/p robotic LAR/SBR/ANNA MARIE, POD#5 s/p ex lap, washout, diverting loop ileostomy NO significant change Ventilated Opens eyes to voice Objective Vital Signs Date Time Temp Pulse Resp B/P Pulse Ox O2 Delivery O2 Flow Rate FiO2 08/29/16 06:00 105 08/29/16 04:18 96 40 08/29/16 04:00 98.3 99 22 114/59 97 08/29/16 04:00 40 08/29/16 04:00 99 08/29/16 04:00 99 114/59 08/29/16 02:00 100 08/29/16 01:05 95 40 08/29/16 00:00 97 134/90 08/29/16 00:00 40 08/29/16 00:00 104 08/29/16 00:00 99.3 104 22 134/70 97 08/28/16 22:00 109 08/28/16 20:00 40 08/28/16 20:00 106 08/28/16 20:00 98.2 106 22 120/61 97 08/28/16 20:00 95 120/61 08/28/16 19:57 97 40 08/28/16 19:00 95 Mechanical Ventilator 40 08/28/16 18:00 109 08/28/16 17:59 95 40 08/28/16 16:00 98.7 105 21 111/58 98 08/28/16 16:00 40 08/28/16 16:00 105 111/58 08/28/16 16:00 105 08/28/16 14:00 109 08/28/16 12:00 109 124/58 08/28/16 12:00 109 08/28/16 12:00 40 08/28/16 12:00 99.3 109 20 124/58 94 08/28/16 11:15 95 40 08/28/16 11:00 95 40 08/28/16 10:00 100 08/28/16 08:50 99 40 08/28/16 08:00 95 117/65 08/28/16 08:00 99.1 95 22 117/65 97 08/28/16 08:00 95 08/28/16 08:00 40 08/28/16 08:00 97 Mechanical Ventilator 40 I/O 3/6/17 08/28/16 08/28/16 08/29/16 08/29/16 08/29/16 07:00 15:00 23:00 07:00 15:00 23:00 Intake Total 1210 ml 1131 ml 1169 ml 768 ml Output Total 185 ml 260 ml 3470 ml 320 ml Balance 1025 ml 871 ml -2301 ml 448 ml IV Total 610 ml 544 ml 509 ml 307 ml TPN/PPN 520 ml 509 ml 570 ml 400 ml Lipid 80 ml 78 ml 90 ml 61 ml Output Urine Total 75 ml 50 ml 50 ml 50 ml Stool Total 0 ml 5 ml 10 ml 5 ml Gastric Drainage Total 100 ml 150 ml 150 ml 125 ml Drainage Total 10 ml 55 ml 260 ml 140 ml Hemodialysis 3000 ml # Bowel Movements 0 0 0 Result Diagram: 08/28/1631408/28/16314 Objective Remarks Abdomen soft, mildly distended, tender Right abdominal wall erythema resolved Ileostomy edematous LLQ SERGEI draining stool - larger amount after enemas yesterday - thinner Assessment and Plan Assessment and Plan Still with drainage Check CT Scan this am Temperature improved Labs pending Await ID input Minimal pressore - renal dose Continues to make some urine Elana Moffett MD Aug 29, 2016 07:35
[2016-08-29 07:36] LABS: BICARBONATE 22.2 MEQ/L (21.0-32.0); POTASSIUM 4.1 MEQ/L (3.5-5.1)
[2016-08-29] MEDS: CHLORHEXIDINE 0.12% (ORAL KIT) 15 ML CUP MT SCH ×2 (08:00→20:42)
[2016-08-29] MEDS ORDERED: DIATRIZOATE MEGLUM/DIATRIZOATE SOD 9 ML CUP PO ONE (08:15)
[2016-08-29] MEDS: PANTOPRAZOLE SODIUM 40 MG VIAL IVP SCH (09:29)
[2016-08-29] MEDS: CEFEPIME INJ 2,000 MG in SODIUM CHLORIDE 0.9% INJ 100 ML IV SCH (09:30)
[2016-08-29] MEDS ORDERED: ALTEPLASE RECOMBINANT 2 MG VIAL IV ONE ×2 (09:30→14:00)
[2016-08-29] MEDS: MICAFUNGIN INJ 100 MG in SODIUM CHLORIDE 0.9% INJ 100 ML IV SCH (09:31)
[2016-08-29] MEDS: SODIUM CHLORIDE 0.9% FLUSH 5 ML FLUSH IVF SCH ×2 (09:32→20:43)
[2016-08-29] MEDS: VASOPRESSIN INJ 40 UNITS in DEXTROSE 5% IN WATER 100ML INJ 98 ML IV SCH ×2 (09:55)
[2016-08-29 11:00] LABS: STAT NO
--- NOTE | 2016-08-29 12:01 | HHI.NPPN ---
Subjective Renal Failure: Acute Interval History Dialyzed yesterday. Remains oligoanuric. Family at bedside. (Fransisca Canela) Review of Systems General General Remarks unable to evaluate (Fransisca Canela) Objective Data Data 08/28/16 08/29/16 19:00 07:00 Intake Total 1131 ml 1937 ml Output Total 3360 ml 690 ml Balance -2229 ml 1247 ml IV Total 544 ml 816 ml TPN/PPN 509 ml 970 ml Lipid 78 ml 151 ml Output Urine Total 50 ml 100 ml Stool Total 5 ml 15 ml Gastric Drainage Total 150 ml 275 ml Drainage Total 155 ml 300 ml Hemodialysis 3000 ml # Bowel Movements 0 Vital Signs Date Time Temp Pulse Resp B/P Pulse Ox O2 Delivery O2 Flow Rate FiO2 08/29/16 10:00 105 08/29/16 09:05 95 40 08/29/16 08:02 40 08/29/16 08:00 40 08/29/16 08:00 95 115/55 08/29/16 08:00 102 08/29/16 08:00 99.4 105 22 115/55 96 08/29/16 07:00 95 Mechanical Ventilator 40 08/29/16 06:00 105 08/29/16 04:18 96 40 08/29/16 04:00 98.3 99 22 114/59 97 08/29/16 04:00 40 08/29/16 04:00 99 08/29/16 04:00 99 114/59 08/29/16 02:00 100 08/29/16 01:05 95 40 08/29/16 00:00 97 134/90 08/29/16 00:00 40 08/29/16 00:00 104 08/29/16 00:00 99.3 104 22 134/70 97 08/28/16 22:00 109 08/28/16 20:00 40 08/28/16 20:00 106 08/28/16 20:00 98.2 106 22 120/61 97 08/28/16 20:00 95 120/61 08/28/16 19:57 97 40 08/28/16 19:00 95 Mechanical Ventilator 40 08/28/16 18:00 109 08/28/16 17:59 95 40 08/28/16 16:00 98.7 105 21 111/58 98 08/28/16 16:00 40 08/28/16 16:00 105 111/58 08/28/16 16:00 105 08/28/16 14:00 109 08/28/16 12:00 109 124/58 08/28/16 12:00 109 08/28/16 12:00 40 08/28/16 12:00 99.3 109 20 124/58 94 (Fransisca Canela) -: 08/28/16 0315 08/29/16 0702 Imaging Last 72 hours Impressions Chest X-Ray 08/27/16 0600 Signed Impressions: Service Date/Time: Saturday, August 27, 2016 04:30 - CONCLUSION: No significant interval change Claude Rosario MD Tubes & Lines: Vas-Cath, Borden Drip Comment levophed, TPN (Fransisca Canela) Physical Exam General Appearance: Well Developed, Well Nourished, No Acute Distress Appearance Remarks intubated, sedated (Fransisca Canela) Throat Throat Exam: Oral Mucosa [place] & Moist (Fransisca Canela) Pulmonary Resp Exam: Breath Sounds Equal, No Distress, Crackles, Diminished Breath Sounds Resp Remarks vented (Fransisca Canela) Cardiology CV Exam: Regular, Normal Sinus Rhythm (Fransisca Canela) Gastrointestinal/Abdomen GI Exam: Distended GI Remarks distended, firm; colostomy with beefy red stoma; hyperactive bowel sounds ( Fransisca Canela) Musculoskeletal MS Exam: Joints Intact, Normal Tone (Fransisca Canela) Integumentary Skin Exam: Warm, Dry (Fransisca Canela) Extremeties Extremities Exam: Pedal Pulses Palpable, Moderate Edema (Fransisca Canela) Neurologic Neuro Exam: Alert, Moving All Extremities, Obtunded (Fransisca Canela) VTE Prophylaxis Device: SCDs (Fransisca Canela) Assessment/Plan Discussed Condition With: Son Assessment Summary: VIRIDIANA/Acute Renal Failure, Acute Tubular Necrosis Problem List: (1) Acute renal failure Plan: in a pt with normal renal function at baseline he had VIRIDIANA on 08/21 which was likely related to contrast exposure; that did resolve VIRIDIANA due to ATN from sepsis, oliguric renal failure HD started 08/25; now on schedule 3L UF yesterday stop lasix ; he is oliguric, has borden avoid IVF monitor vascath function monitor BP, pressors to maintain MAP daily renal panel, await renal recovery of note his vancomycin levels are high (2) Diverticulitis Plan: s/p colon resection with complications surgery following, appreciate recommendations continue present antibiotics including vancomycin, flagyl, levaquin, cefepime ID has been consulted TPN infusing to have repeat CT today (Fransisca Canela) Plan patient was seen and examined. He has developed oliguric renal failure, due to ATN. Continue dialysis support. Avoid nephrotoxic agents. Maintain MAP of more than 65. (Tito Kuo MD) Fransisca Cnaela Aug 29, 2016 12:01 Tito Kuo MD Aug 29, 2016 16:37
--- NOTE | 2016-08-29 12:25 | MB ---
cc: ALLEN MOFFETT M.D., FRANKLYN F. MD DATE OF CONSULTATION: 08/29/[address] Allen Moffett REASON FOR CONSULTATION Postoperative anastomotic leak, pneumonia, elevated white blood cell count. HISTORY OF PRESENT ILLNESS This is a 56-year-old white male admitted to the hospital for surgery of chronic diverticulitis. The patient underwent laparoscopic robotic extensive lysis of adhesions and low anterior bowel resection. The patient was subsequently transferred to a regular floor. In addition to the initial surgery he underwent bilateral ureteral catheter placement. The patient was noted to have an anastomotic leak and he underwent further surgery including exploratory laparotomy with I&D and loop ileostomy. He had become progressively short of breath prior to the procedure and after the procedure he remained hypoxemic and he was intubated. Cultures were taken on 08/25/2016 which was the bi report developer hours after the surgery on 08/24/2016 and sputum culture came back with Serratia, Klebsiella and Pseudomonas. Blood cultures have no growth. Cultures of the abdominal wound showed normal skin puneet. The patient has had elevated white blood cell count including a white count of 21.0 on 08/25/2016 and the white count went down to 14.3 the following day and then back up to 21.9. His temperature has been elevated including 101 on 08/26/2016 but has improved over the last 24 hours. His last temperature maximum was 99.7 on 08/28/2016 bi report developer hours. The patient has acute renal failure and is oliguric. His current creatinine is 4.89. A vascular catheter has been inserted for dialysis. He remains on the ventilator and is currently on CPAP at 40% FIO2. He is sedated and he is not awakening. Information is obtained from the medical record. He was on vasopressin which has been discontinued and his blood pressure is stable currently. The patient was on low dose Levophed at one point. He currently has feculent purulent drainage coming from the left abdominal drainage catheter which was inserted during the exploratory surgery on 08/24/2016. He also has an abdominal drainage catheter in the right abdomen which has serous drainage. PAST MEDICAL HISTORY 1. Diverticulitis. 2. COPD. 3. Hypertension. 4. Anxiety disorder. 5. BPH. 6. History of tonsillectomy. ALLERGIES No known drug allergies. MEDICATIONS 1. Cefepime. 2. Levaquin. 3. Vancomycin. 4. Micafungin. 5. Reglan. 6. Metronidazole. 7. DuoNeb. 8. Haldol p.r.n. 9. Propofol. 10.Ativan p.r.n. 11.Protonix. SOCIAL HISTORY The patient is a smoker of one pack of cigarettes a day. No alcohol. No illicit drugs. FAMILY HISTORY Noncontributory. REVIEW OF SYSTEMS Unable to obtain since the patient is intubated and on the ventilator. PHYSICAL EXAMINATION GENERAL: This is a well-developed male who is sedated on the ventilator. He does not appear to be in any acute distress. VITAL SIGNS: Temperature 99.4 degrees, blood pressure 143/68, heart rate 108. HEENT: Unable to fully assess since the patient cannot cooperate. The oropharynx is intubated. NECK: No adenopathy or swelling. LUNGS: Rhonchi at both bases. HEART: Regular rate and rhythm. No audible murmurs, rubs or gallops. ABDOMEN: Distended. Markedly diminished bowel sounds. Two drainage catheters exit the abdomen including one on the left side which has feculent-appearing liquid drainage and the one on the right has serous drainage. RECTAL: Not performed. EXTREMITIES: No clubbing or cyanosis. 1-2+ edema. Distal pulses are 2+. SKIN: Warm and moist. There is no rash. NEUROLOGIC: Unable to fully assess. LABORATORY DATA WBC 21.9, platelet count 173, hemoglobin 10.1, differential includes 15% bands and 53% neutrophils. Creatinine 4.89, BUN 80, estimated GFR 12, sodium 139. IMAGING DATA Chest x-ray revealed hazy infiltrate at the left base. IMPRESSION 1. Sepsis. 2. Peritonitis. 3. Pneumonia due to gram-negative bacteria with current sputum culture showing Serratia, Klebsiella and Pseudomonas. 4. Leukocytosis secondary to infection. 5. Acute renal failure. 6. Acute respiratory failure. RECOMMENDATIONS 1. Continue cefepime and Levaquin for gram-negative coverage. 2. Monitor sputum Pseudomonas sensitivities. 3. Continue vancomycin. 4. Continue micafungin. 5. Continue metronidazole. 6. Monitor white blood cell count. 7. Send a new culture from the abdominal drainage catheter which is draining the feculent-appearing material. 8. Monitor clinical status. Thank you for this consultation. The patient's progress will be monitored and further recommendations will be made on follow-up. Tim Apodaca MD FD/SUSAN /11:43 AM /12:13 PM THIEN
--- NOTE | 2016-08-29 13:15 | HHI.CCPN ---
Subjective Remarks/Hospital Course 08/25: Patient is a 58-year-old male with past medical history significant COPD who, on 08/18/16, underwent Laparoscopic robotic extensive lysis of adhesions, low anterior resection and small bowel resection. Apparently he was brought in by Dr. Moffett for Diverticulitis. Patient has a history of hypertension, COPD, and continues to smoke one pack of cigarettes a day. Postoperatively patient became progressively short of breath. Pulmonary was consulted on 08/21/16 as the patient was becoming more hypoxemic requiring BiPAP. CT of the chest PE protocol did not show any pulmonary embolism. Patient was placed on breathing treatments and IV Solu-Medrol 40 mg every [address] Renteria. Today a.m. patient was on 100% nonrebreather. Patient was diagnosed with an anastomotic leak today and was taken back to the OR by Dr. Moffett. He underwent exploratory laparotomy, I&D and loop ileostomy today. Postop patient remained hypoxemic requiring 70% oxygen, and hence was left intubated and critical care medicine was consulted. Dr. Arce evaluated the patient in ICU. He remained hypoxemic, FiO2 70%. Chest x-ray shows bibasilar mild infiltrates. On sedation lightening patient became very hypertensive, not following commands probably secondary to residual NM blockade received while being transported to ICU. Patient on receiving vancomycin Levaquin and Flagyl per Dr. Moffett. Dr. Arce added cefepime to cover for Pseudomonas. Holding Solu-Medrol due to anastomotic leak. 08/26: Remains sedated, orally intubated on mechanical ventilation. Went into anuric renal failure yesterday which did not respond to fluid boluses and diuretics hence was started on hemodialysis after placement of right IJ Vas- Cath. Currently sedated, arousable, remains orally intubated on mechanical ventilation. Blood pressure borderline last evening following dialysis for which she was started on low-dose vasopressin 0.03 units per minute and Levophed which is currently at 1 jose per minute. Started on TPN last night following which he has been hyperglycemic. 08/27: Sedated, arousable, orally intubated on mechanical ventilation. Spiking fevers overnight. Off Levophed, transiently off vasopressin. Remains on TPN. 08/28: Remains sedated, arousable, orally intubated on mechanical ventilation. On low-dose vasopressin. TPN continues. Made about 500 cc of urine in the last 24 hours. 08/29: In sedated, arousable, orally intubated on mechanical ventilation. Remains on TPN. Dirty drainage from left-sided SERGEI drain noted overnight. Dr. Moffett obtaining CT abdomen pelvis with oral contrast and ID consulted. Objective Vital Signs Date Time Temp Pulse Resp B/P Pulse Ox O2 Delivery O2 Flow Rate FiO2 08/29/16 11:34 98 40 08/29/16 10:00 105 08/29/16 08:00 115/55 08/29/16 08:00 99.4 22 08/29/16 07:00 Mechanical Ventilator Intake and Output 08/28/16 08/28/16 08/29/16 08:00 16:00 00:00 Intake Total 1210 ml 1131 ml 1169 ml Output Total 185 ml 3260 ml 470 ml Balance 1025 ml -2129 ml 699 ml Result Diagram: 08/28/16 0315 08/29/16 0702 Other Results Laboratory Tests Test 08/29/16 07:02 Sodium Level 139 MEQ/L Potassium Level 4.1 MEQ/L Chloride Level 105 MEQ/L Carbon Dioxide Level 22.2 MEQ/L Anion Gap 12 MEQ/L Blood Urea Nitrogen 80 MG/DL Creatinine 4.89 MG/DL Estimat Glomerular Filtration 12 ML/MIN Rate Random Glucose 223 MG/DL Lactic Acid Level 1.6 mmol/L Calcium Level 8.6 MG/DL Phosphorus Level 5.5 MG/DL Albumin 1.9 GM/DL Imaging Last 24 hours Impressions Chest X-Ray 08/27/16 0600 Signed Impressions: Service Date/Time: Saturday, August 27, 2016 04:30 - CONCLUSION: No significant interval change Claude Rosario MD Last Impressions Chest X-Ray 08/25/16 0000 Signed Impressions: Service Date/Time: Thursday, August 25, 2016 16:55 - CONCLUSION: 1. Uncomplicated line placement. No evidence of pneumothorax. Arcadio Suárez MD Abdomen/Pelvis CT 08/24/16 0000 Signed Impressions: Service Date/Time: August 17:30 - CONCLUSION: There is a fistulous tract arising from the superior aspect of the anastomosis causing Gastroview to leak into the right mid pelvis. There is a significant amount of free fluid or free air surrounding the liver and throughout the abdomen. This case was discussed in detail with Dr. Moffett. Mikel Nguyen MD Abdomen X-Ray 08/24/16 0000 Signed Impressions: Service Date/Time: August 07:44 - CONCLUSION: Gaseous distention of multiple bowel loops possible ileus. Jony Miller MD Enema w/Water Soluble 08/23/16 0000 Signed Impressions: Service Date/Time: Tuesday, August 23, 2016 10:12 - CONCLUSION: Anastomosis appears patent without extravasation. Aditya Rocha MD FACR CT Angiography 08/21/16 0000 Signed Impressions: Service Date/Time: Sunday, August 21, 2016 14:05 - CONCLUSION: 1. There is no evidence for central pulmonary emboli. 2. Minimal subcutaneous air as well as free intraperitoneal air. Aditya Rocha MD FACR Objective Remarks GENERAL: Obese well-developed male who is intubated, sedated SKIN: Erythema of the skin on right lower abdomen HEAD: Atraumatic. Normocephalic. EYES: Pupils equal round and reactive. ENT: Orotracheally intubated NECK: Trachea midline. No JVD or lymphadenopathy. CARDIOVASCULAR: Regular rate and rhythm without murmurs, gallops, or rubs. RESPIRATORY: Orally intubated on mechanical ventilation, air entry decreased bilaterally at bases him a scattered rhonchi, no wheezing. GASTROINTESTINAL: Abdomen distended. Midline incision clean and intact. Bilateral SERGEI drains at the flanks with sero-sanguinous output. Ileostomy noted. Erythema of the skin lateral to ileostomy. MUSCULOSKELETAL: Extremities without clubbing, cyanosis, or edema. NEUROLOGICAL: Sedated, arousable, opens eyes, pupils 3 mm bilaterally reactive, orally intubated on mechanical ventilation Urinary Catheter: Yes Assessment to: Continue Line: Central Venous Catheter A/P Assessment and Plan ASSESSMENT: Postoperative acute hypoxemic respiratory failure on mech ventilation Acute COPD exacerbation Probable healthcare associated pneumonia Septic shock Anastomotic leak status post exploratory laparotomy, I&D, loop ileostomy 08/24/16 s/p Laparoscopic robotic extensive ANNA MARIE, robotic LAR and small bowel resection Acute renal failure Hyperkalemia (resolved) History of diverticulitis History of COPD History of hypertension PLAN: NEURO: -On Sedation and pain control with Versed and fentanyl infusions. Titrated off propofol in view of hypotension. -Daily sedation vacation, follow neuro status. RESP: Acute hypoxemic respiratory failure COPD exacerbation Probable healthcare associated pneumonia -Continue ACV 22/600/40%/+5, titrate FiO2 to keep saturation above 90 -DuoNeb every 4 hours scheduled and when necessary, Symbicort 2 puffs every 12 -Broad-spectrum antibiotics as below -Start daily C Pap trials. CV: Hypotension secondary to septic shock -Received multiple fluid boluses on 08/25. IV fluids discontinued subsequently in view of anuria necessitating hemodialysis. On TPN -Low-dose vasopressin 0.03 units per minute, off Levophed currently -Attempt negative fluid balance with hemodialysis. GI/ Nutrition: Laparoscopic robotic ANNA MARIE, robotic LAR and small bowel resection with anastomotic leak History of diverticulitis -Status post exploratory laparotomy, I&D, loop ileostomy 08/24/16 -Postoperative management per Dr. Moffett. Broad-spectrum antibiotics as below. Follow SERGEI drain output. Left SERGEI drain with dirty output. Awaiting CT abdomen pelvis with oral contrast to follow-up - On Reglan to improve GI motility -Started on TPN 08/25 : -Monitor renal function closely. Mg catheter. -IV fluids discontinued in view of anuric renal failure and hyperkalemia necessitating hemodialysis. Nephrology consulted and following. -Attempt maintaining even to slightly negative fluid balance if blood pressure permits. ID: Anastomotic leak Sepsis Probable HCAP -IV vancomycin, Flagyl and Levaquin per Dr. Moffett. Cefepime for broadening abx coverage added 08/26. Spiking temperatures so added micafungin on 08/27 for antifungal coverage. ID consult requested. Left-sided SERGEI drain with bloody output. Awaiting CT abdomen pelvis with oral contrast. - HEME: -Monitor CBC, CMP, coags ENDO: -Sliding-scale insulin for glycemic control. Add insulin 20 units in each bag of TPN to control hyperglycemia. PROPH: -Bilateral lower extremity SCDs. Heparin subcutaneous for DVT prophylaxis. Protonix for GI prophylaxis LINES: -Left subclavian central line placed in the OR /2 - RIJ dialysis catheter 3/ CC time 45 min excluding procedures Satya Quarles MD Aug 29, 2016 13:15
[2016-08-29 13:53] LABS: MEAN CELL VOLUME 86.7 FL (80.0-100.0); MEAN CORPUSCULAR HEMOGLOBIN 28.1 PG (27.0-34.0); MEAN CORPUSCULAR HGB CONC 32.4 % (32.0-36.0); PLATELET COUNT 190 TH/MM3 (150-450); RED BLOOD COUNT 3.57 MIL/MM3 (4.50-5.90); RED CELL DISTRIBUTION WIDTH 15.5 % (11.6-17.2); WHITE BLOOD COUNT 20.9 TH/MM3 (4.0-11.0)
[2016-08-29 13:59] LABS: HEMO FLAGS AUTO DIFF
[2016-08-29] MEDS ORDERED: ALTEPLASE RECOMBINANT 2 MG VIAL INTRACATH ONE (14:00)
[2016-08-29 14:32] LABS: BANDS 41 % (0-6); EOSINOPHILS 1 % (0-4); METAMYELOCYTES 5 % (0-1); MYELOCYTES 11 % (0-0); NEUTROPHIL # MANUAL DIFF 19.6 TH/MM3 (1.8-7.7); POLYS (SEG NEUTROPHILS) 33 % (16-70); PROMYELOCYTES 4 % (0-0); WBC DIFF SAMPLE 100
[2016-08-29 14:33] LABS: PLATELET ESTIMATE SMEAR NORMAL (NORMAL)
[2016-08-29 14:34] LABS: PLATELET MORPHOLOGY NORMAL (NORMAL)
[2016-08-29 14:35] LABS: SCAN/DIFF FINAL DIFF MANUAL
--- NOTE | 2016-08-29 17:45 | RADRPT ---
EXAM DATE/TIME: 08/29/2016 17:12 [facility] COMPARISON: CT ABDOMEN & PELVIS W/O CONTRAST, August 24, 2016, 17:30. INDICATIONS : Evaluate for pelvic abscess. Post colon resection. ORAL CONTRAST: Prescribed oral contrast ingested. RADIATION DOSE: 28.74 CTDIvol (mGy) MEDICAL HISTORY : Hypertension. Diverticulitis. SURGICAL HISTORY : Colon resection. Colostomy. ENCOUNTER: Initial ACUITY: 4 - 6 days PAIN SCALE: Non-responsive LOCATION: Bilateral abdomen TECHNIQUE: Volumetric scanning of the abdomen and pelvis was performed. Using automated exposure control and adjustment of the mA and/or kV according to patient size, radiation dose was kept as low as reasonably achievable to obtain optimal diagnostic quality images. FINDINGS: Recent postsurgical changes are identified in the abdomen. An ostomy has been created to the right of the umbilicus . Surgical drains have been placed both in the right upper quadrant and left side of t he pelvis. Pockets of fluid remain evident. The largest is located just above the bladder within the pelvis. It contains an air-fluid level. At this time is difficult to determine whether these represent abscesses . Distended fluid-filled loops of small bowel remain evident. The liver, spleen pancreas adrenal glands and kidneys remain unremarkable. Basilar consolidating airspace disease and bilateral effusions are noted. CONCLUSION: Post surgical changes following partial colon resection. Persistent pockets of fluid. Largest is located in the pelvis and contains an air-fluid level. Absces s formation cannot be excluded. Small bowel ileus Bibasilar airspace disease and pleural effusions Aakash Iqbal MD on August 29, 2016 at 17:26 Board Certified Radiologist. This report was verified electronically.
--- NOTE | 2016-08-29 18:31 | HHI.PR ---
Subjective Remarks YOAA male with robotic surgery,COPD exac Underwent exp lap,I&d and loop iliostomy placement Remains on vent Sedated On Low dose Levophed SERGEI drain with feculent drainage Objective Vital Signs Vital Signs Date Time Temp Pulse Resp B/P Pulse Ox O2 Delivery O2 Flow Rate FiO2 08/29/16 16:00 40 08/29/16 16:00 111 08/29/16 16:00 95 122/61 08/29/16 16:00 99.0 109 21 122/61 94 08/29/16 15:37 94 40 08/29/16 15:00 107 08/29/16 12:00 102 08/29/16 12:00 40 08/29/16 12:00 99.0 109 21 122/61 94 08/29/16 12:00 95 122/61 08/29/16 11:34 98 40 08/29/16 10:00 105 08/29/16 09:05 95 40 08/29/16 08:02 40 08/29/16 08:00 40 08/29/16 08:00 95 115/55 08/29/16 08:00 102 08/29/16 08:00 99.4 105 22 115/55 96 08/29/16 07:00 95 Mechanical Ventilator 40 08/29/16 06:00 105 08/29/16 04:18 96 40 08/29/16 04:00 98.3 99 22 114/59 97 08/29/16 04:00 40 08/29/16 04:00 99 08/29/16 04:00 99 114/59 08/29/16 02:00 100 08/29/16 01:05 95 40 08/29/16 00:00 97 134/90 08/29/16 00:00 40 08/29/16 00:00 104 08/29/16 00:00 99.3 104 22 134/70 97 08/28/16 22:00 109 08/28/16 20:00 40 08/28/16 20:00 106 08/28/16 20:00 98.2 106 22 120/61 97 08/28/16 20:00 95 120/61 08/28/16 19:57 97 40 08/28/16 19:00 95 Mechanical Ventilator 40 I/O 08/28/16 08/28/16 08/28/16 08/29/1608/29/17 3/7/17 07:00 15:00 23:00 07:00 15:00 23:00 Intake Total 1210 ml 1131 ml 1169 ml 768 ml 1308 ml Output Total 185 ml 260 ml 3470 ml 320 ml 195 ml Balance 1025 ml 871 ml -2301 ml 448 ml 1113 ml IV Total 610 ml 544 ml 509 ml 307 ml 644 ml TPN/PPN 520 ml 509 ml 570 ml 400 ml 575 ml Lipid 80 ml 78 ml 90 ml 61 ml 89 ml Output Urine Total 75 ml 50 ml 50 ml 50 ml 50 ml Stool Total 0 ml 5 ml 10 ml 5 ml 0 ml Gastric Drainage Total 100 ml 150 ml 150 ml 125 ml 100 ml Drainage Total 10 ml 55 ml 260 ml 140 ml 45 ml Hemodialysis 3000 ml # Bowel Movements 0 0 0 0 Result Diagram: 08/29/16 1345 08/29/16 07 Objective Remarks GENERAL: WBWN obese male, on Vent , sedated SKIN: Warm and dry. HEAD: Normocephalic. EYES: No scleral icterus. No injection or drainage. NECK: Supple, trachea midline. No JVD or lymphadenopathy. CARDIOVASCULAR: Regular rate and rhythm without murmurs, gallops, or rubs. RESPIRATORY: Breath sounds equal bilaterally. No accessory muscle use. exp rhonchi GASTROINTESTINAL: Abdomen soft, non-tender, Abd distended MUSCULOSKELETAL: No cyanosis, or edema. BACK: Nontender without obvious deformity. No CVA tenderness. A/P Assessment and Plan Resp Failure, on vent COPD exac S/p robotic surgery Anxiety S/p Exp lap PLAN: Cont vent support aerosol nebs Wean Levophed Nebuliser rx qid and prn Abx per ID Cefepime,Levaquin,Flagyl,Micafungin and vanco Monitor CBC Robbie Renteria MD Aug 29, 2016 18:31
[2016-08-29] MEDS ORDERED: SOD PHOSPHATE/SOD BIPHOSPHATE (ADULT) ENEMA 133ML PR ONE (18:45)
[2016-08-29] MEDS: CLINIMIX 4.25/25 (Cust.Renal Central) 2000 mL- >42 mls/hr IV-CENTRAL SCH ×9 (20:42)
[2016-08-29] MEDS: FAT EMULSION 20% INJ 250 ML (@10 mls/hr) IV-CENTRAL SCH (20:42)
[2016-08-29] MEDS: LEVOFLOXACIN 750 MG PREMIX INJ 150 ML IV SCH (23:23)
[2016-08-30] VITALS (18 sets, daily range): BP systolic 92–127; BP diastolic 50–58; PULSE 104–124; RESP 22–24; TEMP 98.5–100.2; O2SAT 91–98
[2016-08-30] MEDS: fentaNYL 2,500 MCG/NS 250 ML IV SCH ×3 (00:17→21:36)
[2016-08-30] MEDS: RESP: ALBUTEROL 2.5 MG/3 ML NEB (SCH) INH ×7 (01:13→23:50)
[2016-08-30] MEDS: metroNIDAZOLE 500 MG INJ 100 ML IV SCH ×4 (02:40→20:51)
[2016-08-30] MEDS: METOCLOPRAMIDE HCL 10 MG/2 ML VIAL IV PUSH SCH ×3 (06:00→20:50)
[2016-08-30] MEDS: INSULIN ASPART SUPPLEMENTAL SCALE SQ SCH ×4 (06:00→17:46)
[2016-08-30] MEDS: HEPARIN SODIUM - SQ 10,000 UNITS/ML VIAL SQ SCH ×2 (06:17→18:22)
--- NOTE | 2016-08-30 07:07 | HHI.PR ---
Subjective Remarks Covering Dr Moffett. Pt stable on vent. Sedated at present. Objective Vital Signs Date Time Temp Pulse Resp B/P Pulse Ox O2 Delivery O2 Flow Rate FiO2 08/30/16 03:55 97 40 08/30/16 01:00 96 40 08/30/16 00:00 40 08/29/16 20:06 97 40 08/29/16 20:00 96 Mechanical Ventilator 40 08/29/16 20:00 40 08/29/16 20:00 116 170/79 08/29/16 18:00 104 08/29/16 16:00 40 08/29/16 16:00 111 08/29/16 16:00 95 122/61 08/29/16 16:00 99.0 109 21 122/61 94 08/29/16 15:37 94 40 08/29/16 15:00 107 08/29/16 12:00 102 08/29/16 12:00 40 08/29/16 12:00 99.0 109 21 122/61 94 08/29/16 12:00 95 122/61 08/29/16 11:34 98 40 08/29/16 10:00 105 08/29/16 09:05 95 40 08/29/16 08:02 40 08/29/16 08:00 40 08/29/16 08:00 95 115/55 08/29/16 08:00 102 08/29/16 08:00 99.4 105 22 115/55 96 I/O 08/29/16 08/29/16 08/29/16 08/30/16 08/30/16 08/30/16 07:00 15:00 23:00 07:00 15:00 23:00 Intake Total 768 ml 1308 ml Output Total 320 ml 195 ml Balance 448 ml 1113 ml IV Total 307 ml 644 ml TPN/PPN 400 ml 575 ml Lipid 61 ml 89 ml Output Urine Total 50 ml 50 ml Stool Total 5 ml 0 ml Gastric Drainage Total 125 ml 100 ml Drainage Total 140 ml 45 ml # Bowel Movements 0 0 Result Diagram: 08/29/16 1345 08/29/16 0702 Objective Remarks VS-S Abd: obese,distended,stooling from Ileostomy. Assessment and Plan Assessment and Plan Stable Resp failure. ARF. Check ABG today. Cont present therapy Claude Flores MD Aug 30, 2016 07:07
[2016-08-30] MEDS: PANTOPRAZOLE SODIUM 40 MG VIAL IVP SCH (08:03)
[2016-08-30] MEDS: MICAFUNGIN INJ 100 MG in SODIUM CHLORIDE 0.9% INJ 100 ML IV SCH (08:03)
[2016-08-30] MEDS: CEFEPIME INJ 2,000 MG in SODIUM CHLORIDE 0.9% INJ 100 ML IV SCH (08:04)
[2016-08-30] MEDS: SODIUM CHLORIDE 0.9% FLUSH 5 ML FLUSH IVF SCH ×2 (08:04→20:51)
[2016-08-30] MEDS: CHLORHEXIDINE 0.12% (ORAL KIT) 15 ML CUP MT SCH ×2 (08:30→20:50)
[2016-08-30 09:39] LABS: BICARBONATE 20.9 MEQ/L (21.0-32.0); POTASSIUM 4.6 MEQ/L (3.5-5.1)
--- NOTE | 2016-08-30 11:52 | HHI.NPPN ---
Subjective Renal Failure: Acute Interval History Seen during dialysis. His vascath is not functioning well. (Fransisca Canela) Review of Systems General General Remarks unable to evaluate (Fransisca Canela) Objective Data Data 08/29/16 08/30/16 19:00 07:00 Intake Total 1308 ml 2190 ml Output Total 195 ml 715 ml Balance 1113 ml 1475 ml IV Total 644 ml 984 ml TPN/PPN 575 ml 1046 ml Lipid 89 ml 160 ml Output Urine Total 50 ml 75 ml Stool Total 0 ml 30 ml Gastric Drainage Total 100 ml 550 ml Drainage Total 45 ml 60 ml # Bowel Movements 0 0 Vital Signs Date Time Temp Pulse Resp B/P Pulse Ox O2 Delivery O2 Flow Rate FiO2 08/30/16 10:00 110 08/30/16 08:12 95 40 08/30/16 08:00 40 08/30/16 08:00 98.9 109 22 127/57 97 08/30/16 08:00 127/57 08/30/16 08:00 108 08/30/16 07:00 96 Mechanical Ventilator 40 08/30/16 06:00 108 08/30/16 04:00 40 08/30/16 04:00 99.4 104 22 110/53 97 08/30/16 04:00 104 08/30/16 03:55 97 40 08/30/16 02:00 106 08/30/16 01:00 96 40 08/30/16 00:00 104 08/30/16 00:00 98.8 104 22 104/54 96 08/30/16 00:00 40 08/29/16 22:00 102 08/29/16 20:06 97 40 08/29/16 20:00 116 08/29/16 20:00 96 Mechanical Ventilator 40 08/29/16 20:00 40 08/29/16 20:00 99.1 116 22 170/79 96 08/29/16 20:00 116 170/79 08/29/16 18:00 104 08/29/16 16:00 40 08/29/16 16:00 111 08/29/16 16:00 95 122/61 08/29/16 16:00 99.0 109 21 122/61 94 08/29/16 15:37 94 40 08/29/16 15:00 107 08/29/16 12:00 102 08/29/16 12:00 40 08/29/16 12:00 99.0 109 21 122/61 94 08/29/16 12:00 95 122/61 (Fransisca Canela) -: 08/29/16 1345 08/30/16 0851 Microbiology 08/29/16 Gram Stain - Final, Resulted 08/29/16 Wound Culture - Preliminary, Resulted Tubes & Lines: Vas-Cath, Mg Drip Comment fentanyl, versed (Fransisca Canela) Physical Exam General Appearance: Well Developed, Well Nourished, No Acute Distress Appearance Remarks intubated, sedated (Fransisca Canela) Throat Throat Exam: Oral Mucosa [place] & Moist (Fransisca Canela) Pulmonary Resp Exam: Breath Sounds Equal, No Distress, Crackles, Diminished Breath Sounds Resp Remarks vented (Fransisca Canela) Cardiology CV Exam: Regular, Normal Sinus Rhythm (Fransisca Canela) Gastrointestinal/Abdomen GI Exam: Distended GI Remarks distended, firm; colostomy with beefy red stoma; hyperactive bowel sounds ( Fransisca Canela) Musculoskeletal MS Exam: Joints Intact, Normal Tone (Fransisca Canela) Integumentary Skin Exam: Warm, Dry (Fransisca Canela) Extremeties Extremities Exam: Pedal Pulses Palpable, Moderate Edema (Fransisca Canela) Neurologic Neuro Exam: Alert, Moving All Extremities, Obtunded (Fransisca Canela) VTE Prophylaxis Device: SCDs (Fransisca Canela) Assessment/Plan Discussed Condition With: Son Assessment Summary: VIRIDIANA/Acute Renal Failure, Acute Tubular Necrosis Problem List: (1) Acute renal failure Plan: in a pt with normal renal function at baseline VIRIDIANA due to ATN from sepsis, oliguric renal failure HD started 08/25; now on schedule seen during bedside dialysis on a 3K, 300 BFR, goal 3L vascath is malfunctioning, may need to be replaced prior to next treatment avoid IVF; monitor fluid volume status he is edematous monitor BP, pressors to maintain MAP although he has not been requiring daily renal panel, await renal recovery of note his vancomycin levels are high (2) Diverticulitis Plan: s/p colon resection with complications surgery following, appreciate recommendations continue present antibiotics including vancomycin, flagyl, Levaquin, cefepime ID following TPN infusing; he is NPO he is febrile and tachycardic repeat CT: free fluid and ileus present (Fransisca Canela) Plan patient was seen and examined. Agree with above. Seen during dialysis. His Vascath may need to be exchanged. Avoid nephrotoxic agents. (Tito Kuo MD ) Fransisca Canela Aug 30, 2016 11:52 Tito Kuo MD Aug 31, 2016 10:02
[2016-08-30] MEDS: VANCOMYCIN INJ 1,000 MG in SODIUM CHLOR 0.9% 250 ML INJ 250 ML IV SCH (12:13)
[2016-08-30] MEDS: GENTAMICIN SULFATE (DIALYSIS USE ONLY) 20 MG/2 ML VIAL IV PRN (12:13)
[2016-08-30] MEDS: HEPARIN SODIUM - IV 10,000 UNITS/10 ML VIAL PRN (12:14)
--- NOTE | 2016-08-30 12:45 | HHI.CCPN ---
Subjective Remarks/Hospital Course 08/25: Patient is a 58-year-old male with past medical history significant COPD who, on 08/18/16, underwent Laparoscopic robotic extensive lysis of adhesions, low anterior resection and small bowel resection. Apparently he was brought in by Dr. Moffett for Diverticulitis. Patient has a history of hypertension, COPD, and continues to smoke one pack of cigarettes a day. Postoperatively patient became progressively short of breath. Pulmonary was consulted on 08/21/16 as the patient was becoming more hypoxemic requiring BiPAP. CT of the chest PE protocol did not show any pulmonary embolism. Patient was placed on breathing treatments and IV Solu-Medrol 40 mg every [address] eRnteria. Today a.m. patient was on 100% nonrebreather. Patient was diagnosed with an anastomotic leak today and was taken back to the OR by Dr. Moffett. He underwent exploratory laparotomy, I&D and loop ileostomy today. Postop patient remained hypoxemic requiring 70% oxygen, and hence was left intubated and critical care medicine was consulted. Dr. Arce evaluated the patient in ICU. He remained hypoxemic, FiO2 70%. Chest x-ray shows bibasilar mild infiltrates. On sedation lightening patient became very hypertensive, not following commands probably secondary to residual NM blockade received while being transported to ICU. Patient on receiving vancomycin Levaquin and Flagyl per Dr. Moffett. Dr. Arce added cefepime to cover for Pseudomonas. Holding Solu-Medrol due to anastomotic leak. 08/26: Remains sedated, orally intubated on mechanical ventilation. Went into anuric renal failure yesterday which did not respond to fluid boluses and diuretics hence was started on hemodialysis after placement of right IJ Vas- Cath. Currently sedated, arousable, remains orally intubated on mechanical ventilation. Blood pressure borderline last evening following dialysis for which she was started on low-dose vasopressin 0.03 units per minute and Levophed which is currently at 1 jose per minute. Started on TPN last night following which he has been hyperglycemic. 08/27: Sedated, arousable, orally intubated on mechanical ventilation. Spiking fevers overnight. Off Levophed, transiently off vasopressin. Remains on TPN. 08/28: Remains sedated, arousable, orally intubated on mechanical ventilation. On low-dose vasopressin. TPN continues. Made about 500 cc of urine in the last 24 hours. 08/29: In sedated, arousable, orally intubated on mechanical ventilation. Remains on TPN. Dirty drainage from left-sided SERGEI drain noted overnight. Dr. Moffett obtaining CT abdomen pelvis with oral contrast and ID consulted. Subjective 08/30: CURRENT TEMPERATURE 99. Status post 4 L hemodialysis today. No current change in therapy. White blood cell count remained stable. Off vasopressors. Arousable to voice. Versed has been discontinued. We'll attempt CPAP trials again today. Objective Vital Signs Date Time Temp Pulse Resp B/P Pulse Ox O2 Delivery O2 Flow Rate FiO2 08/30/16 12:10 98 40 08/30/16 12:00 110 08/30/16 08:00 98.9 22 127/57 08/30/16 07:00 Mechanical Ventilator Intake and Output 08/29/16 08/29/16 08/30/16 08:00 16:00 00:00 Intake Total 768 ml 1308 ml 1077 ml Output Total 320 ml 195 ml 260 ml Balance 448 ml 1113 ml 817 ml Result Diagram: 08/29/16 1345 08/30/16 0851 Other Results Microbiology Date/Time Procedure Status Source Growth 08/29/16 14:00 Gram Stain - Final Resulted Wound Abdomen 08/29/16 14:00 Wound Culture - Preliminary Resulted Wound Abdomen Imaging Last Impressions Abdomen/Pelvis CT 08/29/16 0000 Signed Impressions: Service Date/Time: Monday, August 29, 2016 17:12 - CONCLUSION: Post surgical changes following partial colon resection. Persistent pockets of fluid. Largest is located in the pelvis and contains an air-fluid level. Abscess formation cannot be excluded. Small bowel ileus Bibasilar airspace disease and pleural effusions Aakash Iqbal MD Chest X-Ray 08/27/16 0600 Signed Impressions: Service Date/Time: Saturday, August 27, 2016 04:30 - CONCLUSION: No significant interval change Claude Rosario MD Abdomen X-Ray 08/24/16 0000 Signed Impressions: Service Date/Time: August 07:44 - CONCLUSION: Gaseous distention of multiple bowel loops possible ileus. Jony Miller MD Enema w/Water Soluble 08/23/16 0000 Signed Impressions: Service Date/Time: Tuesday, August 23, 2016 10:12 - CONCLUSION: Anastomosis appears patent without extravasation. Aditya Rocha MD FACR CT Angiography 08/21/16 0000 Signed Impressions: Service Date/Time: Sunday, August 21, 2016 14:05 - CONCLUSION: 1. There is no evidence for central pulmonary emboli. 2. Minimal subcutaneous air as well as free intraperitoneal air. Aditya Rocha MD FACR Objective Remarks GENERAL: 48-year-old Obese well-developed male who is intubated, sedated SKIN: Erythema of the skin on right lower abdomen HEAD: Atraumatic. Normocephalic. EYES: Pupils equal round and reactive about 3 mm bilaterally. ENT: Orotracheally intubated NECK: Trachea midline. No JVD or lymphadenopathy. CARDIOVASCULAR: Tachycardic, RR. S1, S2. No S4. Without murmurs, gallops, or rubs. RESPIRATORY: Orally intubated on mechanical ventilation, air entry decreased bilaterally at bases with scattered rhonchi, no inspiratory or expiratory wheezing. GASTROINTESTINAL: Abdomen distended. Midline incision clean and intact. Bilateral SERGEI drains at the flanks with sero-sanguinous output. Ileostomy noted. Erythema of the skin lateral to ileostomy. MUSCULOSKELETAL: Extremities with 1+ bilateral upper and lower extremity edema NEUROLOGICAL: Sedated, arousable, opens eyes to voice but not following commands currently., pupils 3 mm bilaterally reactive, orally intubated on mechanical ventilation Line: Central Venous Catheter A/P Assessment and Plan PLAN: NEURO: History of anxiety -On Sedation and pain control with Versed and fentanyl at 10 jose grams an hour infusions. Goal of RASS -2 -Daily sedation vacation, follow neuro status. RESP: Acute hypoxemic respiratory failure COPD exacerbation Probable healthcare associated pneumonia -Continue ACV 22/600 0.75/7/40 Ventilator bundle -Albuterol nebs every 4 hours scheduled and when necessary, Symbicort 2 puffs every 12 was discontinued. Start Pulmicort twice a day -Broad-spectrum antibiotics as below -Continue daily C Pap trials. Dr. Renteria/pulmonary following CV: Hypotension secondary to septic shock resolved History of hypertension -Received multiple fluid boluses on 08/25. IV fluids discontinued subsequently in view of anuria necessitating hemodialysis. On TPN Off vasopressin -Attempt negative fluid balance with hemodialysis. GI/ Nutrition: Anastomotic leak status post exploratory laparotomy, I&D, loop ileostomy 08/24/16 s/p Laparoscopic robotic extensive ANNA MARIE, robotic LAR and small bowel resection Laparoscopic robotic ANNA MARIE, robotic LAR and small bowel resection with anastomotic leak History of diverticulitis -Status post exploratory laparotomy, I&D, loop ileostomy 08/24/16 -Postoperative management per Dr. Moffett. Broad-spectrum antibiotics as below. Left SEREGI drain 50 cc. Right SERGEI 55 cc. 30 cc stools. With dirty output. CT abdomen pelvis with oral contrast 08/29 reveal small bowel ileus. Serous fluid collection likely postoperative changes. - On Reglan to improve GI motility -Started on TPN 08/25 at 6 5 cc an hour with lipids daily Protonix for GI prophylaxis Renal/: Acute kidney injury History BPH Status post bilateral ureteral stents placed by Dr. Fraser 08/18 -Monitor renal function closely. Mg catheter. -IV fluids discontinued in view of anuric renal failure and hyperkalemia necessitating hemodialysis. Nephrology consulted and following. -Attempt maintaining even to slightly negative fluid balance if blood pressure permits. ID: Anastomotic leak Sepsis Probable HCAP -IV vancomycin, Flagyl and Levaquin per Dr. Moffett. Cefepime for broadening abx coverage added 08/26. Spiking temperatures so added micafungin on 08/27 for antifungal coverage. ID consult requested. Left-sided SERGEI drain with bloody output. Pertinent culture Serratia/Klebsiella/Pseudomonas HEME: Leukocytosis Normocytic anemia -Monitor CBC, CMP, coags ENDO: -Sliding-scale insulin for glycemic control. Add insulin 20 units in each bag of TPN to control hyperglycemia. PROPH: -Bilateral lower extremity SCDs. Heparin subcutaneous for DVT prophylaxis. Protonix for GI prophylaxis LINES: -Left subclavian central line placed in the OR 08/24 - RIJ dialysis catheter 08/25 Critical Care: The total critical care time was 45 minutes. Time to perform other separately billable procedures was not included in the critical care time. Connor Lebron MD Aug 30, 2016 12:45
--- NOTE | 2016-08-30 13:11 | HHI.IDPN ---
Note Infectious Disease Note Patient on the vent. Sedated. Temp lower. Now normal. Had dialysis today. PAST MEDICAL HISTORY 1. Diverticulitis. 2. COPD. 3. Hypertension. 4. Anxiety disorder. 5. BPH. 6. History of tonsillectomy. ALLERGIES No known drug allergies. ANTIBIOTICS 1. Cefepime. 2. Levaquin. 3. Vancomycin. 4. Micafungin. 5. Metronidazole. SOCIAL HISTORY The patient is a smoker of one pack of cigarettes a day. No alcohol. No illicit drugs. OBJECTIVE: Vital Signs Date Time Temp Pulse Resp B/P Pulse Ox O2 Delivery O2 Flow Rate FiO2 08/30/16 12:10 98 40 08/30/16 12:00 40 08/30/16 12:00 98.5 08/30/16 12:00 110 08/30/16 12:00 127/57 08/30/16 10:00 110 08/30/16 08:12 95 40 08/30/16 08:00 40 08/30/16 08:00 98.9 109 22 127/57 97 08/30/16 08:00 127/57 08/30/16 08:00 108 08/30/16 07:00 96 Mechanical Ventilator 40 08/30/16 06:00 108 08/30/16 04:00 40 08/30/16 04:00 99.4 104 22 110/53 97 08/30/16 04:00 104 08/30/16 03:55 97 40 08/30/16 02:00 106 08/30/16 01:00 96 40 08/30/16 00:00 104 08/30/16 00:00 98.8 104 22 104/54 96 08/30/16 00:00 40 08/29/16 22:00 102 08/29/16 20:06 97 40 08/29/16 20:00 116 08/29/16 20:00 96 Mechanical Ventilator 40 08/29/16 20:00 40 08/29/16 20:00 99.1 116 22 170/79 96 08/29/16 20:00 116 170/79 08/29/16 18:00 104 08/29/16 16:00 40 08/29/16 16:00 111 08/29/16 16:00 95 122/61 08/29/16 16:00 99.0 109 21 122/61 94 08/29/16 15:37 94 40 08/29/16 15:00 107 Laboratory Tests Test 08/29/16 13:45 White Blood Count 20.9 TH/MM3 Red Blood Count 3.57 MIL/MM3 Hemoglobin 10.0 GM/DL Hematocrit 31.0 % Mean Corpuscular Volume 86.7 FL Mean Corpuscular Hemoglobin 28.1 PG Mean Corpuscular Hemoglobin 32.4 % Concent Red Cell Distribution Width 15.5 % Platelet Count 190 TH/MM3 Mean Platelet Volume 9.3 FL Neutrophils (%) (Auto) % Lymphocytes (%) (Auto) % Monocytes (%) (Auto) % Eosinophils (%) (Auto) % Basophils (%) (Auto) % Neutrophils # (Auto) TH/MM3 Lymphocytes # (Auto) TH/MM3 Monocytes # (Auto) TH/MM3 Eosinophils # (Auto) TH/MM3 Basophils # (Auto) TH/MM3 CBC Comment AUTO DIFF Differential Total Cells 100 Counted Neutrophils % (Manual) 33 % Band Neutrophils % 41 % Lymphocytes % 2 % Monocytes % 3 % Eosinophils % 1 % Neutrophils # (Manual) 19.6 TH/MM3 Metamyelocytes 5 % Myelocytes 11 % Promyelocytes 4 % Differential Comment FINAL DIFF MANUAL Atypical Lymphocytes % Platelet Estimate NORMAL Platelet Morphology Comment NORMAL Laboratory Tests Test 08/29/16 08/30/16 07:02 08:51 Sodium Level 139 MEQ/L 136 MEQ/L Potassium Level 4.1 MEQ/L 4.6 MEQ/L Chloride Level 105 MEQ/L 103 MEQ/L Carbon Dioxide Level 22.2 MEQ/L 20.9 MEQ/L Anion Gap 12 MEQ/L 12 MEQ/L Blood Urea Nitrogen 80 MG/DL 97 MG/DL Creatinine 4.89 MG/DL 6.27 MG/DL Estimat Glomerular Filtration 12 ML/MIN 9 ML/MIN Rate Random Glucose 223 MG/DL 221 MG/DL Lactic Acid Level 1.6 mmol/L Calcium Level 8.6 MG/DL 8.3 MG/DL Phosphorus Level 5.5 MG/DL 4.7 MG/DL Albumin 1.9 GM/DL 1.6 GM/DL Microbiology Date/Time Procedure Status Source Growth 08/29/16 14:00 Gram Stain - Final Resulted Wound Abdomen 08/29/16 14:00 Wound Culture - Preliminary Resulted Wound Abdomen PHYSICAL EXAMINATION GENERAL: Sedated on the ventilator. He does not appear to be in any acute distress. HEENT: The oropharynx is intubated. NECK: No adenopathy or swelling. LUNGS: Rhonchi at both bases. HEART: Regular rate and rhythm. No audible murmurs, rubs or gallops. ABDOMEN: Distended. Markedly diminished bowel sounds. Two drainage catheters exit the abdomen including one on the left side which has feculent-appearing liquid drainage and the one on the right has serous drainage. EXTREMITIES: No clubbing or cyanosis. 1-2+ edema. Distal pulses are 2+. SKIN: Warm and moist. No rash. NEUROLOGIC: Unable to fully assess. IMPRESSION 1. Sepsis. 2. Peritonitis. Post abdominal surgery/Bowel resection. 3. Pneumonia due to gram-negative bacteria with current sputum culture showing Serratia, Klebsiella and Pseudomonas. 4. Leukocytosis secondary to infection. 5. Acute renal failure. 6. Acute respiratory failure. RECOMMENDATIONS 1. Continue cefepime and Levaquin for gram-negative coverage. 2. Continue vancomycin. 3. Continue micafungin. 4. Continue metronidazole. 5. Monitor white blood cell count. 6. Monitor culture from the abdominal drainage catheter which is draining the feculent-appearing material. 7. Monitor clinical status. Tim Apodaca MD Aug 30, 2016 13:11
[2016-08-30] MEDS ORDERED: ALTEPLASE RECOMBINANT 2 MG VIAL INTRACATH ONE (14:00)
[2016-08-30 14:14] LABS: BLOOD GAS CARBOXYHEMOGLOBIN 1.5 % (0-4); BLOOD GAS HCO3 23 mmol/L (22-26); BLOOD GAS O2 HGB SATURATION 92 % (90-100); BLOOD GAS OXYGEN CONTENT 13.9 Vol % (12.0-20.0); BLOOD GAS PCO2 40 mmHg (38-42); BLOOD GAS PO2 74 mmHg (61-120); BLOOD GAS TOTAL HGB 10.7 G/DL (12.0-16.0); CRITICAL VALUE NO; OXYGEN DEVICE VENTILATOR; TEMP CORR TO 98.6
[2016-08-30 14:15] LABS: DRAW SITE LT BRACHIAL; FIO2 40 %; NUMBER OF ARTERIAL PUNCTURES 1; STAT NO; ULNAR PULSE PRESENT
--- NOTE | 2016-08-30 19:12 | HHI.PR ---
Subjective Remarks YOAA male with robotic surgery,COPD exac Underwent exp lap,I&d and loop iliostomy placement Remains on vent Sedated Off Pressors Tolerates CPAP 05/31, Fi02 40% Had HD today Objective Vital Signs Vital Signs Date Time Temp Pulse Resp B/P Pulse Ox O2 Delivery O2 Flow Rate FiO2 08/30/16 18:00 112 08/30/16 16:00 93/58 08/30/16 16:00 113 08/30/16 16:00 100.2 114 24 98/53 95 08/30/16 16:00 40 08/30/16 15:26 98 40 08/30/16 14:00 110 08/30/16 12:10 98 40 08/30/16 12:00 40 08/30/16 12:00 98.5 08/30/16 12:00 110 08/30/16 12:00 118 24 101/50 93 08/30/16 12:00 127/57 08/30/16 10:00 110 08/30/16 08:12 95 40 08/30/16 08:00 40 08/30/16 08:00 98.9 109 22 127/57 97 08/30/16 08:00 127/57 08/30/16 08:00 108 08/30/16 07:00 96 Mechanical Ventilator 40 08/30/16 06:00 108 08/30/16 04:00 40 08/30/16 04:00 99.4 104 22 110/53 97 08/30/16 04:00 104 08/30/16 03:55 97 40 08/30/16 02:00 106 08/30/16 01:00 96 40 08/30/16 00:00 104 08/30/16 00:00 98.8 104 22 104/54 96 08/30/16 00:00 40 08/29/16 22:00 102 08/29/16 20:06 97 40 08/29/16 20:00 116 08/29/16 20:00 96 Mechanical Ventilator 40 08/29/16 20:00 40 08/29/16 20:00 99.1 116 22 170/79 96 08/29/16 20:00 116 170/79 I/O 08/29/16 08/29/16 08/29/16 08/30/16 08/30/16 08/30/16 07:00 15:00 23:00 07:00 15:00 23:00 Intake Total 768 ml 1308 ml 1077 ml 1113 ml 1198 ml Output Total 320 ml 195 ml 260 ml 455 ml 4165 ml 200 ml Balance 448 ml 1113 ml 817 ml 658 ml -2967 ml -200 ml IV Total 307 ml 644 ml 471 ml 513 ml 597 ml TPN/PPN 400 ml 575 ml 526 ml 520 ml 521 ml Lipid 61 ml 89 ml 80 ml 80 ml 80 ml Output Urine Total 50 ml 50 ml 50 ml 25 ml 35 ml Stool Total 5 ml 0 ml 25 ml 5 ml 50 ml 200 ml Gastric Drainage Total 125 ml 100 ml 150 ml 400 ml 50 ml Drainage Total 140 ml 45 ml 35 ml 25 ml 30 ml Hemodialysis 4000 ml # Bowel Movements 0 0 0 0 0 Result Diagram: 08/29/16 1345 08/30/16 0851 Objective Remarks GENERAL: WBWN obese male, on Vent , sedated SKIN: Warm and dry. HEAD: Normocephalic. EYES: No scleral icterus. No injection or drainage. NECK: Supple, trachea midline. No JVD or lymphadenopathy. CARDIOVASCULAR: Regular rate and rhythm without murmurs, gallops, or rubs. RESPIRATORY: Breath sounds equal bilaterally. No accessory muscle use. exp rhonchi GASTROINTESTINAL: Abdomen soft, non-tender, Abd distended MUSCULOSKELETAL: No cyanosis, or edema. BACK: Nontender without obvious deformity. No CVA tenderness. A/P Assessment and Plan Resp Failure, on vent COPD exac S/p robotic surgery Anxiety S/p Exp lap PLAN: Cont vent support aerosol nebs Wean Levophed Nebuliser rx qid and prn Abx per ID Cefepime,Levaquin,Flagyl,Micafungin and Robbie Myers MD Aug 30, 2016 19:12
[2016-08-30] MEDS: RESP: BUDESONIDE 0.5 MG/2 ML NEB NEB SCH (20:08)
[2016-08-30] MEDS: FAT EMULSION 20% INJ 250 ML (@10 mls/hr) IV-CENTRAL SCH (20:50)
[2016-08-30] MEDS: MUPIROCIN 2% OINT 1 APPLIC/GM SYR EACH NARE SCH (20:51)
[2016-08-30] MEDS: CLINIMIX 4.25/25 (Cust.Renal Central) 2000 mL- >42 mls/hr IV-CENTRAL SCH ×9 (21:58)
[2016-08-31] VITALS (19 sets, daily range): BP systolic 99–126; BP diastolic 50–64; PULSE 102–111; RESP 22–26; TEMP 98.6–100.4; O2SAT 92–99
[2016-08-31] MEDS: metroNIDAZOLE 500 MG INJ 100 ML IV SCH ×4 (02:21→20:17)
--- NOTE | 2016-08-31 03:01 | RADRPT ---
EXAM DATE/TIME: 08/31/2016 02:13 [facility] COMPARISON: CHEST SINGLE AP, August 27, 2016, 4:30. INDICATIONS : Respiratory distress. MEDICAL HISTORY : Chronic obstructive pulmonary disease. SURGICAL HISTORY : None. ENCOUNTER: Subsequent ACUITY: 4 - 6 days PAIN SCORE: Non-responsive. LOCATION: Bilateral chest FINDINGS: A single view of the chest demonstrates bibasilar effusions with concomitant atelectatic changes. Bot h bases appear slightly worse when compared to the prior exam. Life support tubes including endotrach eal tube right IJ dialysis type catheter, left subclavian central venous catheter and NG tube are all stable. Heart size is borderline prominent. Osseous structures intact. Possible SERGEI type drain overly ing the right upper abdominal quadrant. CONCLUSION: Slight interval worsening of bilateral effusions with atelectatic changes. Juwan Guzman MD on August 31, 2016 at 2:57 Board Certified Radiologist. This report was verified electronically.
[2016-08-31] MEDS: RESP: ALBUTEROL 2.5 MG/3 ML NEB (SCH) INH ×6 (03:40→23:51)
[2016-08-31] MEDS: HEPARIN SODIUM - SQ 10,000 UNITS/ML VIAL SQ SCH ×2 (05:09→18:08)
[2016-08-31] MEDS: METOCLOPRAMIDE HCL 10 MG/2 ML VIAL IV PUSH SCH ×3 (05:09→21:03)
[2016-08-31 05:28] LABS: AUTOMATED NEUTROPHIL # 20.5 TH/MM3 (1.8-7.7); BASOPHIL # 0.1 TH/MM3 (0-0.2); BASOPHIL % 0.4 % (0.0-2.0); EOSINOPHIL # 0.1 TH/MM3 (0-0.4); EOSINOPHIL % 0.5 % (0.0-4.0); HEMATOCRIT 25.6 % (39.0-51.0); LYMPHOCYTE # 1.2 TH/MM3 (1.0-4.8); MEAN CELL VOLUME 85.7 FL (80.0-100.0); MEAN CORPUSCULAR HGB CONC 32.7 % (32.0-36.0); MONO % 9.3 % (0.0-8.0); NEUT % 84.8 % (16.0-70.0); PLATELET COUNT 228 TH/MM3 (150-450); RED BLOOD COUNT 2.99 MIL/MM3 (4.50-5.90); RED CELL DISTRIBUTION WIDTH 15.1 % (11.6-17.2); WHITE BLOOD COUNT 24.2 TH/MM3 (4.0-11.0)
[2016-08-31 05:30] LABS: HEMO FLAGS AUTO DIFF
[2016-08-31 05:58] LABS: ALKALINE PHOSPHATASE 105 U/L (45-117); ALT (GPT) 6 U/L (12-78); ANION GAP 11 MEQ/L (5-15); AST (GOT) 24 U/L (15-37); BICARBONATE 24.3 MEQ/L (21.0-32.0); BLOOD UREA NITROGEN 84 MG/DL (7-18); CHLORIDE 101 MEQ/L (98-107); GLOMERULAR FILTRATION RATE 10 ML/MIN (>89); MAGNESIUM 2.1 MG/DL (1.5-2.5); POTASSIUM 4.8 MEQ/L (3.5-5.1); SODIUM (NA) 136 MEQ/L (136-145); TOTAL BILIRUBIN ADULT 0.8 MG/DL (0.2-1.0)
[2016-08-31] MEDS: INSULIN ASPART SUPPLEMENTAL SCALE SQ SCH ×5 (06:00→23:37)
[2016-08-31 06:08] LABS: CREATINE KINASE 95 U/L (39-308)
--- NOTE | 2016-08-31 07:27 | HHI.CCPN ---
Subjective Remarks/Hospital Course 08/25: Patient is a 58-year-old male with past medical history significant COPD who, on 08/18/16, underwent Laparoscopic robotic extensive lysis of adhesions, low anterior resection and small bowel resection. Apparently he was brought in by Dr. Moffett for Diverticulitis. Patient has a history of hypertension, COPD, and continues to smoke one pack of cigarettes a day. Postoperatively patient became progressively short of breath. Pulmonary was consulted on 08/21/16 as the patient was becoming more hypoxemic requiring BiPAP. CT of the chest PE protocol did not show any pulmonary embolism. Patient was placed on breathing treatments and IV Solu-Medrol 40 mg every [address] Renteria. Today a.m. patient was on 100% nonrebreather. Patient was diagnosed with an anastomotic leak today and was taken back to the OR by Dr. Moffett. He underwent exploratory laparotomy, I&D and loop ileostomy today. Postop patient remained hypoxemic requiring 70% oxygen, and hence was left intubated and critical care medicine was consulted. Dr. Arce evaluated the patient in ICU. He remained hypoxemic, FiO2 70%. Chest x-ray shows bibasilar mild infiltrates. On sedation lightening patient became very hypertensive, not following commands probably secondary to residual NM blockade received while being transported to ICU. Patient on receiving vancomycin Levaquin and Flagyl per Dr. Moffett. Dr. Arce added cefepime to cover for Pseudomonas. Holding Solu-Medrol due to anastomotic leak. 08/26: Remains sedated, orally intubated on mechanical ventilation. Went into anuric renal failure yesterday which did not respond to fluid boluses and diuretics hence was started on hemodialysis after placement of right IJ Vas- Cath. Currently sedated, arousable, remains orally intubated on mechanical ventilation. Blood pressure borderline last evening following dialysis for which she was started on low-dose vasopressin 0.03 units per minute and Levophed which is currently at 1 jose per minute. Started on TPN last night following which he has been hyperglycemic. 08/27: Sedated, arousable, orally intubated on mechanical ventilation. Spiking fevers overnight. Off Levophed, transiently off vasopressin. Remains on TPN. 08/28: Remains sedated, arousable, orally intubated on mechanical ventilation. On low-dose vasopressin. TPN continues. Made about 500 cc of urine in the last 24 hours. 08/29: In sedated, arousable, orally intubated on mechanical ventilation. Remains on TPN. Dirty drainage from left-sided SERGEI drain noted overnight. Dr. Moffett obtaining CT abdomen pelvis with oral contrast and ID consulted. 08/30: CURRENT TEMPERATURE 99. Status post 4 L hemodialysis today. No current change in therapy. White blood cell count remained stable. Off vasopressors. Arousable to voice. Versed has been discontinued. We'll attempt CPAP trials again today. Subjective 08/31: MAXIMUM TEMPERATURE 100.4. Currently 100.1. Currently resting in bed in no acute distress. Continues with scant drainage from bilateral JPs. We'll attempt CPAP trial again today. Positive stool from ostomy bag Objective Vital Signs Date Time Temp Pulse Resp B/P Pulse Ox O2 Delivery O2 Flow Rate FiO2 08/31/16 06:00 109 08/31/16 04:39 95 40 08/31/16 04:00 08/31/16 04:00 100.1 24 08/30/16 20:00 Mechanical Ventilator Intake and Output 08/30/16 08/30/16 08/31/16 08:00 16:00 00:00 Intake Total 1113 ml 1198 ml 994 ml Output Total 455 ml 4165 ml 555 ml Balance 658 ml -2967 ml 439 ml Result Diagram: 08/31/16 0515 08/31/16 0515 Other Results Microbiology Date/Time Procedure Status Source Growth 08/29/16 14:00 Gram Stain - Final Resulted Wound Abdomen 08/29/16 14:00 Wound Culture - Preliminary Resulted Wound Abdomen Imaging Last Impressions Chest X-Ray 08/31/16 0600 Signed Impressions: Service Date/Time: August 02:13 - CONCLUSION: Slight interval worsening of bilateral effusions with atelectatic changes. Juwan Guzman MD Abdomen/Pelvis CT 08/29/16 0000 Signed Impressions: Service Date/Time: Monday, August 29, 2016 17:12 - CONCLUSION: Post surgical changes following partial colon resection. Persistent pockets of fluid. Largest is located in the pelvis and contains an air-fluid level. Abscess formation cannot be excluded. Small bowel ileus Bibasilar airspace disease and pleural effusions Aakash Iqbal MD Abdomen X-Ray 08/24/16 0000 Signed Impressions: Service Date/Time: August 07:44 - CONCLUSION: Gaseous distention of multiple bowel loops possible ileus. Jony Miller MD Enema w/Water Soluble 08/23/16 0000 Signed Impressions: Service Date/Time: Tuesday, August 23, 2016 10:12 - CONCLUSION: Anastomosis appears patent without extravasation. Aditya Rocha MD FACR CT Angiography 08/21/16 0000 Signed Impressions: Service Date/Time: Sunday, August 21, 2016 14:05 - CONCLUSION: 1. There is no evidence for central pulmonary emboli. 2. Minimal subcutaneous air as well as free intraperitoneal air. Aditya Rocha MD FACR Objective Remarks GENERAL: 56-year-old Obese well-developed male who is intubated, sedated SKIN: Erythema of the skin on right lower abdomen HEAD: Atraumatic. Normocephalic. EYES: Pupils equal round and reactive about 3 mm bilaterally. ENT: Orotracheally intubated NECK: Trachea midline. No JVD or lymphadenopathy. CARDIOVASCULAR: Tachycardic, RR. S1, S2. No S4. Without murmurs, gallops, or rubs. RESPIRATORY: Orally intubated on mechanical ventilation, air entry decreased bilaterally at bases with scattered rhonchi, no inspiratory or expiratory wheezing. GASTROINTESTINAL: Abdomen distended. Midline incision clean and intact. Bilateral SERGEI drains at the flanks with sero-sanguinous output. Ileostomy noted. Erythema of the skin lateral to ileostomy. MUSCULOSKELETAL: Extremities with 1+ bilateral upper and lower extremity edema NEUROLOGICAL: Sedated, arousable, opens eyes to voice but not following commands currently., pupils 3 mm bilaterally reactive, orally intubated on mechanical ventilation Urinary Catheter: Yes Assessment to: Continue Mg insert reason: Prolonged Immobilization Vascular Central Line Catheter: Yes Assessment to: Continue Date of Insertion: Aug 24, 2016 Line: Central Venous Catheter Side: Left Location: Internal, Jugular A/P Assessment and Plan PLAN: NEURO: History of anxiety -On Sedation and pain control with Versed as needed and fentanyl at 175 jose grams an hour infusions. Goal of RASS -2 -Daily sedation vacation, follow neuro status. RESP: Acute hypoxemic respiratory failure COPD exacerbation Probable healthcare associated pneumonia -Continue ACV 22/600 0.8/5/40 Ventilator bundle -Albuterol nebs every 4 hours scheduled and when necessary, Symbicort 2 puffs every 12 was discontinued while in ventilator. Continue Pulmicort twice a day -Broad-spectrum antibiotics as below -Continue daily C Pap trials. Dr. Renteria/pulmonary following CV: Hypotension secondary to septic shock resolved History of hypertension -Received multiple fluid boluses on 08/25. IV fluids discontinued subsequently in view of anuria necessitating hemodialysis. On TPN Off vasopressin -Attempt negative fluid balance with hemodialysis. GI/ Nutrition: Anastomotic leak status post exploratory laparotomy, I&D, loop ileostomy 08/24/16 s/p Laparoscopic robotic extensive ANNA MARIE, robotic LAR and small bowel resection Laparoscopic robotic ANNA MARIE, robotic LAR and small bowel resection with anastomotic leak History of diverticulitis -Status post exploratory laparotomy, I&D, loop ileostomy 08/24/16 -Postoperative management per Dr. Moffett. Broad-spectrum antibiotics as below. Left SERGEI drain 20 cc. Right SERGEI [address] abdomen pelvis with oral contrast 08/29 reveal small bowel ileus. Serous fluid collection likely postoperative changes. - On Reglan to improve GI motility -Started on TPN 08/25 at 6 cc an hour with lipids daily Protonix for GI prophylaxis Renal/: Acute kidney injury History BPH Status post bilateral ureteral stents placed by Dr. Fraser 08/18 -Monitor renal function closely. Mg catheter. -IV fluids discontinued in view of anuric renal failure and hyperkalemia necessitating hemodialysis. Nephrology consulted and following. -Attempt maintaining even to slightly negative fluid balance if blood pressure permits. ID: Anastomotic leak Sepsis Probable HCAP -IV vancomycin, Flagyl and Levaquin per Dr. Moffett. Cefepime for broadening abx coverage added 08/26. Spiking temperatures so added micafungin on 08/27 for antifungal coverage. ID consult requested. Left-sided SERGEI drain with bloody output. Pertinent culture 08/25 blood cultures - no growth 08/25 sputum - Serratia/Klebsiella/Pseudomonas Will reculture blood/sputum today with ongoing fevers and rising white blood cell count HEME: Leukocytosis Normocytic anemia -Monitor CBC, CMP, coags ENDO: -Sliding-scale insulin for glycemic control. Add insulin 20 units in each bag of TPN to control hyperglycemia. PROPH: -Bilateral lower extremity SCDs. Heparin subcutaneous for DVT prophylaxis. Protonix for GI prophylaxis LINES: -Left subclavian central line placed in the OR 08/24 - RIJ dialysis catheter 08/25 Critical Care: The total critical care time was 35 minutes. Time to perform other separately billable procedures was not included in the critical care time. Connor Lebron MD Aug 31, 2016 07:27
[2016-08-31] MEDS: RESP: BUDESONIDE 0.5 MG/2 ML NEB NEB SCH ×2 (07:54→20:38)
[2016-08-31 08:42] LABS: BANDS 28 % (0-6); EOSINOPHILS 1 % (0-4); METAMYELOCYTES 7 % (0-1); MYELOCYTES 12 % (0-0); NEUTROPHIL # MANUAL DIFF 21.1 TH/MM3 (1.8-7.7); POLYS (SEG NEUTROPHILS) 36 % (16-70); PROMYELOCYTES 4 % (0-0); WBC DIFF SAMPLE 100
[2016-08-31 08:43] LABS: PLATELET ESTIMATE SMEAR NORMAL (NORMAL); PLATELET MORPHOLOGY NORMAL (NORMAL); SCAN/DIFF FINAL DIFF MANUAL
[2016-08-31 08:44] LABS: DOHLE BODIES PRESENT (NONE SEEN)
[2016-08-31] MEDS: PANTOPRAZOLE SODIUM 40 MG VIAL IVP SCH (08:50)
[2016-08-31] MEDS: CEFEPIME INJ 2,000 MG in SODIUM CHLORIDE 0.9% INJ 100 ML IV SCH (08:50)
[2016-08-31] MEDS: MUPIROCIN 2% OINT 1 APPLIC/GM SYR EACH NARE SCH ×2 (08:51→20:18)
[2016-08-31] MEDS: SODIUM CHLORIDE 0.9% FLUSH 5 ML FLUSH IVF SCH ×2 (08:54→20:17)
[2016-08-31] MEDS: CHLORHEXIDINE 0.12% (ORAL KIT) 15 ML CUP MT SCH ×2 (08:55→20:00)
[2016-08-31] MEDS: fentaNYL 2,500 MCG/NS 250 ML IV SCH ×2 (09:20→23:58)
[2016-08-31] MEDS: MICAFUNGIN INJ 100 MG in SODIUM CHLORIDE 0.9% INJ 100 ML IV SCH (09:59)
--- NOTE | 2016-08-31 11:32 | HHI.NPPN ---
Subjective Renal Failure: Acute Interval History 4L UF yesterday. He has been febrile. Remains oliguric. (Fransisca Canela) Review of Systems General General Remarks unable to evaluate (Fransisca Canela) Objective Data Data 08/30/16 08/31/16 19:00 07:00 Intake Total 1198 ml 2115 ml Output Total 4365 ml 1140 ml Balance -3167 ml 975 ml IV Total 597 ml 948 ml TPN/PPN 521 ml 1017 ml Lipid 80 ml 150 ml Output Urine Total 35 ml 40 ml Stool Total 250 ml 875 ml Gastric Drainage Total 50 ml 200 ml Drainage Total 30 ml 25 ml Hemodialysis 4000 ml # Bowel Movements 0 Vital Signs Date Time Temp Pulse Resp B/P Pulse Ox O2 Delivery O2 Flow Rate FiO2 08/31/16 10:00 105 08/31/16 08:00 08/31/16 08:00 111 08/31/16 08:00 40 08/31/16 07:55 94 40 08/31/16 07:00 92 Mechanical Ventilator 40 08/31/16 06:00 109 08/31/16 04:39 95 40 08/31/16 04:00 08/31/16 04:00 108 08/31/16 04:00 100.1 109 24 99/53 96 08/31/16 04:00 40 08/31/16 02:00 110 08/31/16 01:11 99 40 08/31/16 00:00 100.4 110 22 124/64 95 08/31/16 00:00 08/31/16 00:00 40 08/31/16 00:00 110 08/30/16 22:00 110 08/30/16 20:10 93 40 08/30/16 20:00 93 Mechanical Ventilator 40 08/30/16 20:00 08/30/16 20:00 99.7 124 24 92/51 91 08/30/16 20:00 40 08/30/16 20:00 124 08/30/16 18:00 112 08/30/16 16:00 93/58 08/30/16 16:00 113 08/30/16 16:00 100.2 114 24 98/53 95 08/30/16 16:00 40 08/30/16 15:26 98 40 08/30/16 14:00 110 08/30/16 12:10 98 40 08/30/16 12:00 40 08/30/16 12:00 98.5 08/30/16 12:00 110 08/30/16 12:00 118 24 101/50 93 08/30/16 12:00 127/57 (Fransisca Canela) -: 08/31/16 0515 08/31/16 0515 Microbiology 08/31/16 Aerobic Blood Culture, Received Pending 08/31/16 Anaerobic Blood Culture, Received Pending 08/31/16 Aerobic Blood Culture, Received Pending 08/31/16 Anaerobic Blood Culture, Received Pending Imaging Last 72 hours Impressions Chest X-Ray 08/31/16 0600 Signed Impressions: Service Date/Time: August 02:13 - CONCLUSION: Slight interval worsening of bilateral effusions with atelectatic changes. Juwan Guzman MD Abdomen/Pelvis CT 08/29/16 0000 Signed Impressions: Service Date/Time: Monday, August 29, 2016 17:12 - CONCLUSION: Post surgical changes following partial colon resection. Persistent pockets of fluid. Largest is located in the pelvis and contains an air-fluid level. Abscess formation cannot be excluded. Small bowel ileus Bibasilar airspace disease and pleural effusions Aakash Iqbal MD Tubes & Lines: Vas-Cath, Mg Drip Comment fentanyl, versed (Fransisca Canela) Physical Exam General Appearance: Well Developed, Well Nourished, No Acute Distress Appearance Remarks intubated, sedated (Fransisca Canela) Throat Throat Exam: Oral Mucosa [place] & Moist (Fransisca Canela) Pulmonary Resp Exam: Breath Sounds Equal, No Distress, Crackles, Diminished Breath Sounds Resp Remarks vented (Fransisca Canela) Cardiology CV Exam: Regular, Normal Sinus Rhythm (Fransisca Canela) Gastrointestinal/Abdomen GI Exam: Distended GI Remarks distended, firm; colostomy with beefy red stoma; hyperactive bowel sounds ( Fransisca Canela) Musculoskeletal MS Exam: Joints Intact, Normal Tone (Fransisca Canela) Integumentary Skin Exam: Warm, Dry (Fransisca Canela) Extremeties Extremities Exam: Pedal Pulses Palpable, Moderate Edema (Fransisca Canela) Neurologic Neuro Exam: Unresponsive, Sedated (Fransisca Canela) VTE Prophylaxis Device: SCDs (Fransisca Canela) Assessment/Plan Discussed Condition With: Son Assessment Summary: VIRIDIANA/Acute Renal Failure, Acute Tubular Necrosis Problem List: (1) Acute renal failure Plan: in a pt with normal renal function at baseline oliguric renal failure, ATN from sepsis and renal hypoperfusion HD started 08/25; now on schedule 4L UF yesterday vascath is malfunctioning, remove today and wait to replace until tomorrow avoid IVF; monitor fluid volume status, attempt negative balance monitor BP, pressors to maintain MAP although he has not been requiring daily renal panel, await renal recovery of note his vancomycin levels are high (2) Diverticulitis Plan: s/p colon resection with complications surgery following, appreciate recommendations continue present antibiotics including vancomycin, flagyl, Levaquin, cefepime, micafungin ID following TPN infusing; he is NPO he is febrile and tachycardic, remove vascath today repeat CT: free fluid and ileus present (Fransisca Canela) Plan patient was seen and examined. Agree with above. Discussed with Dr. Lebron. Needs a new Vascath. Dialysis on Sunday. (Tito Kuo MD) Fransisca Canela Aug 31, 2016 11:32 Tito Kuo MD Sep 01, 2016 15:09
[2016-08-31 12:30] LABS: BACTERIA, URINE OCC /hpf; BLOOD, URINE LARGE (NEG); GLUCOSE,URINE 70 mg/dL (NEG); KETONE, URINE 10 mg/dL (NEG); MUCUS URINE FEW /lpf (OCC); NITRITE,URINE NEG (NEG); PH, URINE 5.5 (5.0-8.5); SQUAMOUS EPITHELIAL CELL URINE 1 /hpf (0-5)
[2016-08-31 12:32] LABS: URINE COLOR DARK-BROWN (YELLW/STRAW)
[2016-08-31 12:33] LABS: COMMENT (UR) CATH-CULTURE IND; CULTURE IF INDICATED CATH CULTURE IND
--- NOTE | 2016-08-31 12:37 | HHI.IDPN ---
Note Infectious Disease Note Patient on the vent. Sedated. Opens eyes. Has low grade fever. Vas cath removed. WBC elevated. PAST MEDICAL HISTORY 1. Diverticulitis. 2. COPD. 3. Hypertension. 4. Anxiety disorder. 5. BPH. 6. History of tonsillectomy. ALLERGIES No known drug allergies. ANTIBIOTICS 1. Cefepime. 2. Levaquin. 3. Vancomycin. 4. Micafungin. 5. Metronidazole. SOCIAL HISTORY The patient is a smoker of one pack of cigarettes a day. No alcohol. No illicit drugs. OBJECTIVE: Vital Signs Date Time Temp Pulse Resp B/P Pulse Ox O2 Delivery O2 Flow Rate FiO2 08/31/16 10:00 105 08/31/16 08:00 08/31/16 08:00 111 08/31/16 08:00 98.6 108 22 101/50 93 08/31/16 08:00 40 08/31/16 07:55 94 40 08/31/16 07:00 92 Mechanical Ventilator 40 08/31/16 06:00 109 08/31/16 04:39 95 40 08/31/16 04:00 08/31/16 04:00 108 08/31/16 04:00 100.1 109 24 99/53 96 08/31/16 04:00 40 08/31/16 02:00 110 08/31/16 01:11 99 40 08/31/16 00:00 100.4 110 22 124/64 95 08/31/16 00:00 08/31/16 00:00 40 08/31/16 00:00 110 08/30/16 22:00 110 08/30/16 20:10 93 40 08/30/16 20:00 93 Mechanical Ventilator 40 08/30/16 20:00 08/30/16 20:00 99.7 124 24 92/51 91 08/30/16 20:00 40 08/30/16 20:00 124 08/30/16 18:00 112 08/30/16 16:00 93/58 08/30/16 16:00 113 08/30/16 16:00 100.2 114 24 98/53 95 08/30/16 16:00 40 08/30/16 15:26 98 40 08/30/16 14:00 110 08/30/16 08/30/16 08/31/16 15:00 23:00 07:00 Intake Total 1198 ml 994 ml 1121 ml Output Total 4165 ml 555 ml 785 ml Balance -2967 ml 439 ml 336 ml IV Total 597 ml 435 ml 513 ml TPN/PPN 521 ml 486 ml 531 ml Lipid 80 ml 73 ml 77 ml Output Urine Total 35 ml 15 ml 25 ml Stool Total 50 ml 450 ml 625 ml Gastric Drainage Total 50 ml 75 ml 125 ml Drainage Total 30 ml 15 ml 10 ml Hemodialysis 4000 ml # Bowel Movements 0 Laboratory Tests Test 08/29/16 08/31/16 13:45 05:15 White Blood Count 20.9 TH/MM3 24.2 TH/MM3 Red Blood Count 3.57 MIL/MM3 2.99 MIL/MM3 Hemoglobin 10.0 GM/DL 8.4 GM/DL Hematocrit 31.0 % 25.6 % Mean Corpuscular Volume 86.7 FL 85.7 FL Mean Corpuscular Hemoglobin 28.1 PG 28.0 PG Mean Corpuscular Hemoglobin 32.4 % 32.7 % Concent Red Cell Distribution Width 15.5 % 15.1 % Platelet Count 190 TH/MM3 228 TH/MM3 Mean Platelet Volume 9.3 FL 9.0 FL Neutrophils (%) (Auto) % 84.8 % Lymphocytes (%) (Auto) % 5.0 % Monocytes (%) (Auto) % 9.3 % Eosinophils (%) (Auto) % 0.5 % Basophils (%) (Auto) % 0.4 % Neutrophils # (Auto) TH/MM3 20.5 TH/MM3 Lymphocytes # (Auto) TH/MM3 1.2 TH/MM3 Monocytes # (Auto) TH/MM3 2.2 TH/MM3 Eosinophils # (Auto) TH/MM3 0.1 TH/MM3 Basophils # (Auto) TH/MM3 0.1 TH/MM3 CBC Comment AUTO DIFF AUTO DIFF Differential Total Cells 100 100 Counted Neutrophils % (Manual) 33 % 36 % Band Neutrophils % 41 % 28 % Lymphocytes % 2 % 5 % Monocytes % 3 % 7 % Eosinophils % 1 % 1 % Neutrophils # (Manual) 19.6 TH/MM3 21.1 TH/MM3 Metamyelocytes 5 % 7 % Myelocytes 11 % 12 % Promyelocytes 4 % 4 % Differential Comment FINAL DIFF FINAL DIFF MANUAL MANUAL Atypical Lymphocytes % Platelet Estimate NORMAL NORMAL Platelet Morphology Comment NORMAL NORMAL Dohle Bodies PRESENT Laboratory Tests Test 08/30/16 08/31/16 08:51 05:15 Sodium Level 136 MEQ/L 136 MEQ/L Potassium Level 4.6 MEQ/L 4.8 MEQ/L Chloride Level 103 MEQ/L 101 MEQ/L Carbon Dioxide Level 20.9 MEQ/L 24.3 MEQ/L Anion Gap 12 MEQ/L 11 MEQ/L Blood Urea Nitrogen 97 MG/DL 84 MG/DL Creatinine 6.27 MG/DL 5.79 MG/DL Estimat Glomerular Filtration 9 ML/MIN 10 ML/MIN Rate Random Glucose 221 MG/DL 242 MG/DL Calcium Level 8.3 MG/DL 8.3 MG/DL Phosphorus Level 4.7 MG/DL 4.1 MG/DL Albumin 1.6 GM/DL 1.5 GM/DL Magnesium Level 2.1 MG/DL Total Bilirubin 0.8 MG/DL Aspartate Amino Transf 24 U/L (AST/SGOT) Alanine Aminotransferase 6 U/L (ALT/SGPT) Alkaline Phosphatase 105 U/L Total Creatine Kinase 95 U/L Total Protein 5.6 GM/DL Microbiology Date/Time Procedure Status Source Growth 08/29/16 14:00 Gram Stain - Final Resulted Wound Abdomen 08/29/16 14:00 Wound Culture - Preliminary Resulted Pseudomonas Species Group D Enterococcus Iram Albicans Yeast-Id To Follow 08/31/16 08:04 Aerobic Blood Culture Received Blood Peripheral Pending 08/31/16 08:04 Anaerobic Blood Culture Received Blood Peripheral Pending 08/31/16 08:10 Aerobic Blood Culture Received Blood Peripheral Pending 08/31/16 08:10 Anaerobic Blood Culture Received Blood Peripheral Pending 08/31/16 11:47 Gram Stain Received Sputum Endotracheal Pending 08/31/16 11:47 Sputum Culture Received Sputum Endotracheal Pending PHYSICAL EXAMINATION GENERAL: Sedated on the ventilator. No acute distress. HEENT: The oropharynx is intubated. NECK: No adenopathy or swelling. LUNGS: Bilateral rhonchi. HEART: Regular rate and rhythm. No audible murmurs, rubs or gallops. ABDOMEN: Distended. Markedly diminished bowel sounds. Two drainage catheters exit the abdomen including one on the left side which has decreased drainage. EXTREMITIES: No clubbing or cyanosis. 1-2+ edema. Distal pulses 2+. SKIN: Warm and moist. No rash. NEUROLOGIC: Unable to fully assess. IMPRESSION 1. Sepsis. 2. Peritonitis. Post abdominal surgery/Bowel resection. Abdominal culture has enterococcus, pseudomonas and yeast. 3. Pneumonia due to gram-negative bacteria with sputum culture showing Serratia, Klebsiella and Pseudomonas. 4. Leukocytosis secondary to infection. 5. Acute renal failure. 6. Acute respiratory failure. RECOMMENDATIONS 1. Continue cefepime and Levaquin for gram-negative coverage. 2. Continue vancomycin. 3. Continue micafungin. 4. Continue metronidazole. 5. Monitor white blood cell count. Consider repeating the CT of abdomen to check for undrained pocket of fluid if WBC keeps climbing. 6. Monitor clinical status. 7. Monitor new cultures. Tim Apodaca MD Aug 31, 2016 12:37
[2016-08-31] MEDS ORDERED: MIDAZOLAM HCL 5 MG/ML VIAL (1 ML) ONE (14:10)
--- NOTE | 2016-08-31 14:30 | PD.PROCEDR ---
Central Line Procedure REASON FOR PROCEDURE Central venous access PROCEDURE PERFORMED Central line placement: R subclavian central line CONSENT Informed consent for procedure was obtained and time out performed. The risks and benefits of the procedure were discussed to include but limited to bleeding , clot formation, infection, and even . ANESTHESIA Local injection of 1% Lidocaine DESCRIPTION OF THE PROCEDURE The patient was placed in supine, mild Trendelenburg position. The area was exposed and cleansed with ChloraPrep, times two. Large sterile drape was used to cover the patient, with the site exposed, under sterile conditions including cap, face mask, sterile gown, and sterile gloves. On single attempt, the introducer needle was inserted with negative pressure in syringe and venous flash was obtained. The guide wire was then advanced without any restriction and the needle was removed. The dilator was used without any complications. Using Seldinger technique the 20 CM 7F triple lumen catheter was advanced over the guide wire to a depth of 18 centimeters. The guide wire was removed. All ports were aspirated with dark venous blood return and flushed easily with sterile saline. All ports were capped. Antibiotic disc was placed around central line at puncture site. The central line was secured to the skin with two interrupted 2.0 silk sutures. The area was bandaged with sterile see- through central line bandage. COMPLICATIONS: No apparent complications ESTIMATED BLOOD LOSS: Less than 1 cc. Jeferson Arce MD Aug 31, 2016 14:30
--- NOTE | 2016-08-31 15:14 | RADRPT ---
EXAM DATE/TIME: 08/31/2016 14:47 [facility] COMPARISON: CHEST SINGLE AP, August 31, 2016, 2:13. INDICATIONS : Status Post Central Line Placement. MEDICAL HISTORY : Hypertension. Diverticulitis. SURGICAL HISTORY : Colon resection. Colostomy. ENCOUNTER: Initial ACUITY: 1 day PAIN SCORE: Non-responsive. LOCATION: Bilateral chest FINDINGS: Right jugular central venous catheter has been removed. A new right subclavian central venous cathete r has been placed and is in good position. Endotracheal tube, nasogastric tube and left central line are in stable position. Mild/moderate pulmonary congestion with diffuse interstitial vascular engorgement and bilateral effus ions is still evident. Less bibasilar airspace disease is noted. CONCLUSION: New right subclavian central venous catheter in good position; no evidence of pneumothorax. Increasing basilar airspace disease. Persistent mild/moderate congestion. Stable endotracheal and nasogastric tubes. Aakash Iqbal MD on August 31, 2016 at 15:10 Board Certified Radiologist. This report was verified electronically.
[2016-08-31] MEDS ORDERED: MIDAZOLAM HCL 5 MG/5 ML VIAL IV ONE (16:15)
--- NOTE | 2016-08-31 17:22 | HHI.PR ---
Subjective Remarks YOAA male with robotic surgery,COPD exac Underwent exp lap,I&d and loop iliostomy placement Remains on vent Sedated Off Pressors Objective Vital Signs Vital Signs Date Time Temp Pulse Resp B/P Pulse Ox O2 Delivery O2 Flow Rate FiO2 08/31/16 16:03 94 40 08/31/16 15:00 110 08/31/16 12:51 92 40 08/31/16 12:00 40 08/31/16 12:00 08/31/16 12:00 104 08/31/16 12:00 99.1 108 26 113/58 96 08/31/16 10:00 105 08/31/16 08:00 08/31/16 08:00 111 08/31/16 08:00 98.6 108 22 101/50 93 08/31/16 08:00 40 08/31/16 07:55 94 40 08/31/16 07:00 92 Mechanical Ventilator 40 08/31/16 06:00 109 08/31/16 04:39 95 40 08/31/16 04:00 08/31/16 04:00 108 08/31/16 04:00 100.1 109 24 99/53 96 08/31/16 04:00 40 08/31/16 02:00 110 08/31/16 01:11 99 40 08/31/16 00:00 100.4 110 22 124/64 95 08/31/16 00:00 08/31/16 00:00 40 08/31/16 00:00 110 08/30/16 22:00 110 08/30/16 20:10 93 40 08/30/16 20:00 93 Mechanical Ventilator 40 08/30/16 20:00 08/30/16 20:00 99.7 124 24 92/51 91 08/30/16 20:00 40 08/30/16 20:00 124 08/30/16 18:00 112 I/O 08/30/16 08/30/16 08/30/16 08/31/16 08/31/16 08/31/16 07:00 15:00 23:00 07:00 15:00 23:00 Intake Total 1113 ml 1198 ml 994 ml 1121 ml 1306 ml Output Total 455 ml 4165 ml 555 ml 785 ml 425 ml Balance 658 ml -2967 ml 439 ml 336 ml 881 ml IV Total 513 ml 597 ml 435 ml 513 ml 641 ml TPN/PPN 520 ml 521 ml 486 ml 531 ml 581 ml Lipid 80 ml 80 ml 73 ml 77 ml 84 ml Output Urine Total 25 ml 35 ml 15 ml 25 ml 50 ml Stool Total 5 ml 50 ml 450 ml 625 ml 300 ml Gastric Drainage Total 400 ml 50 ml 75 ml 125 ml 50 ml Drainage Total 25 ml 30 ml 15 ml 10 ml 25 ml Hemodialysis 4000 ml # Bowel Movements 0 0 Result Diagram: 08/31/1651408/31/16514 Objective Remarks GENERAL: WBWN obese male, on Vent , sedated SKIN: Warm and dry. HEAD: Normocephalic. EYES: No scleral icterus. No injection or drainage. NECK: Supple, trachea midline. No JVD or lymphadenopathy. CARDIOVASCULAR: Regular rate and rhythm without murmurs, gallops, or rubs. RESPIRATORY: Breath sounds equal bilaterally. No accessory muscle use. exp rhonchi GASTROINTESTINAL: Abdomen soft, non-tender, Abd distended MUSCULOSKELETAL: No cyanosis, or edema. BACK: Nontender without obvious deformity. No CVA tenderness. A/P Assessment and Plan Resp Failure, on vent COPD exac S/p robotic surgery Anxiety S/p Exp lap PLAN: Cont vent support aerosol nebs Nebuliser rx qid and prn Abx per ID Cefepime,Levaquin,Flagyl,Micafungin and vanco Stable off pressors Robbie Renteria MD Aug 31, 2016 17:22
--- NOTE | 2016-08-31 17:54 | HHI.PR ---
Subjective Remarks WBC elevated. Wound in lower portion sl red and draining. Objective Vital Signs Date Time Temp Pulse Resp B/P Pulse Ox O2 Delivery O2 Flow Rate FiO2 08/31/16 16:03 94 40 08/31/16 15:00 110 08/31/16 12:51 92 40 08/31/16 12:00 40 08/31/16 12:00 08/31/16 12:00 104 08/31/16 12:00 99.1 108 26 113/58 96 08/31/16 10:00 105 08/31/16 08:00 08/31/16 08:00 111 08/31/16 08:00 98.6 108 22 101/50 93 08/31/16 08:00 40 08/31/16 07:55 94 40 08/31/16 07:00 92 Mechanical Ventilator 40 08/31/16 06:00 109 08/31/16 04:39 95 40 08/31/16 04:00 08/31/16 04:00 108 08/31/16 04:00 100.1 109 24 99/53 96 08/31/16 04:00 40 08/31/16 02:00 110 08/31/16 01:11 99 40 08/31/16 00:00 100.4 110 22 124/64 95 08/31/16 00:00 08/31/16 00:00 40 08/31/16 00:00 110 08/30/16 22:00 110 08/30/16 20:10 93 40 08/30/16 20:00 93 Mechanical Ventilator 40 08/30/16 20:00 08/30/16 20:00 99.7 124 24 92/51 91 08/30/16 20:00 40 08/30/16 20:00 124 08/30/16 18:00 112 I/O 08/30/16 08/30/16 08/30/16 08/31/16 08/31/16 08/31/16 07:00 15:00 23:00 07:00 15:00 23:00 Intake Total 1113 ml 1198 ml 994 ml 1121 ml 1306 ml Output Total 455 ml 4165 ml 555 ml 785 ml 425 ml Balance 658 ml -2967 ml 439 ml 336 ml 881 ml IV Total 513 ml 597 ml 435 ml 513 ml 641 ml TPN/PPN 520 ml 521 ml 486 ml 531 ml 581 ml Lipid 80 ml 80 ml 73 ml 77 ml 84 ml Output Urine Total 25 ml 35 ml 15 ml 25 ml 50 ml Stool Total 5 ml 50 ml 450 ml 625 ml 300 ml Gastric Drainage Total 400 ml 50 ml 75 ml 125 ml 50 ml Drainage Total 25 ml 30 ml 15 ml 10 ml 25 ml Hemodialysis 4000 ml # Bowel Movements 0 0 Result Diagram: 08/31/1651408/31/16514 Objective Remarks VS-S Abd: obese,distended,stooling from Ileostomy.Inferior yehuda removed some mildly turbid drainage. Opened and packed. Assessment and Plan Assessment and Plan Stable Resp failure. ARF.Wound infection Check ABG today. Cont present therapy. D/W Dr Chuck Rocha and Dr Arce. Planning CT guided drainage of collection in RLQ tomorrow. Claude Flores MD Aug 31, 2016 17:54
[2016-08-31] MEDS: FAT EMULSION 20% INJ 250 ML (@10 mls/hr) IV-CENTRAL SCH (20:17)
[2016-08-31] MEDS: CLINIMIX 4.25/25 (Cust.Renal Central) 2000 mL- >42 mls/hr IV-CENTRAL SCH ×9 (21:04)
[2016-08-31] MEDS: LEVOFLOXACIN 750 MG PREMIX INJ 150 ML IV SCH (22:17)
[2016-09-01] VITALS (18 sets, daily range): BP systolic 96–124; BP diastolic 54–61; PULSE 96–114; RESP 22–26; TEMP 98.4–99.5; O2SAT 95–100
[2016-09-01] MEDS: RESP: ALBUTEROL 2.5 MG/3 ML NEB (SCH) INH ×5 (03:14→20:34)
[2016-09-01] MEDS: metroNIDAZOLE 500 MG INJ 100 ML IV SCH ×4 (04:39→20:37)
[2016-09-01 05:45] LABS: AUTOMATED NEUTROPHIL # 19.6 TH/MM3 (1.8-7.7); BASOPHIL # 0.1 TH/MM3 (0-0.2); BASOPHIL % 0.2 % (0.0-2.0); EOSINOPHIL # 0.1 TH/MM3 (0-0.4); EOSINOPHIL % 0.6 % (0.0-4.0); LYMPHOCYTE # 0.9 TH/MM3 (1.0-4.8); MEAN CELL VOLUME 84.8 FL (80.0-100.0); MEAN CORPUSCULAR HEMOGLOBIN 28.1 PG (27.0-34.0); MEAN CORPUSCULAR HGB CONC 33.1 % (32.0-36.0); MONO % 9.5 % (0.0-8.0); NEUT % 85.7 % (16.0-70.0); PLATELET COUNT 245 TH/MM3 (150-450); RED BLOOD COUNT 2.83 MIL/MM3 (4.50-5.90); RED CELL DISTRIBUTION WIDTH 15.1 % (11.6-17.2); WHITE BLOOD COUNT 22.9 TH/MM3 (4.0-11.0)
[2016-09-01 05:49] LABS: HEMO FLAGS AUTO DIFF
[2016-09-01] MEDS ORDERED: MIDAZOLAM HCL 5 MG/ML VIAL (1 ML) ONE ×2 (05:49→05:58)
[2016-09-01] MEDS: METOCLOPRAMIDE HCL 10 MG/2 ML VIAL IV PUSH SCH ×3 (06:15→23:36)
[2016-09-01 06:19] LABS: ALKALINE PHOSPHATASE 111 U/L (45-117); ALT (GPT) LESS THAN 6 U/L (12-78); ANION GAP 13 MEQ/L (5-15); AST (GOT) 23 U/L (15-37); BICARBONATE 21.2 MEQ/L (21.0-32.0); BLOOD UREA NITROGEN 105 MG/DL (7-18); CHLORIDE 101 MEQ/L (98-107); GLOMERULAR FILTRATION RATE 8 ML/MIN (>89); MAGNESIUM 2.1 MG/DL (1.5-2.5); POTASSIUM 5.3 MEQ/L (3.5-5.1); SODIUM (NA) 135 MEQ/L (136-145); TOTAL BILIRUBIN ADULT 0.8 MG/DL (0.2-1.0)
--- NOTE | 2016-09-01 06:28 | PD.PROCEDR ---
Central Line Procedure REASON FOR PROCEDURE Hemodialysis access PROCEDURE PERFORMED Hemodialysis catheter placement: Right IJ CONSENT Informed consent for procedure was obtained. The risks and benefits of the procedure were discussed to include but limited to bleeding, clot formation, infection, and even . ANESTHESIA Local injection of 1% Lidocaine DESCRIPTION OF THE PROCEDURE The patient was placed in supine, mild Trendelenburg position. The area was exposed and cleansed with ChloraPrep, times two. Large sterile drape was used to cover the patient, with the site exposed, under sterile conditions including cap, face mask, sterile gown, and sterile gloves. On single attempt, the introducer needle was inserted with negative pressure in syringe and venous flash was obtained. The guide wire was then advanced without any restriction and the needle was removed. The dilator was used without any complications. Using Seldinger technique the Schlon 14 Yoruba 20 cm catheter was advanced over the guide wire to a depth of 18 centimeters. The guide wire was removed. All ports were aspirated with dark venous blood return and flushed easily with sterile saline. All ports were capped. Antibiotic disc was placed around central line at puncture site. The central line was secured to the skin with two interrupted 2.0 silk sutures. The area was bandaged with sterile see- through central line bandage. RADIOLOGICAL DATA Ultrasound guidance was used to locate right internal jugular vein. Doppler/ color flow was used to confirm venous flow. COMPLICATIONS: No apparent complications ESTIMATED BLOOD LOSS: Less than 1 cc. Connor Lebron MD Sep 01, 2016 06:28
[2016-09-01] MEDS ORDERED: SODIUM CHLORIDE 0.9% FLUSH 5 ML FLUSH IVF PRN (06:30)
[2016-09-01] MEDS ORDERED: HEPARIN SODIUM - IV 10,000 UNITS/10 ML VIAL IVF PRN (06:30)
--- NOTE | 2016-09-01 06:51 | RADRPT ---
EXAM DATE/TIME: 09/01/2016 06:39 [facility] COMPARISON: CHEST SINGLE AP, August 31, 2016, 14:47. INDICATIONS : Central line placement. MEDICAL HISTORY : Chronic obstructive pulmonary disease. SURGICAL HISTORY : None. ENCOUNTER: Initial ACUITY: 1 day PAIN SCORE: Non-responsive. LOCATION: Bilateral chest FINDINGS: Interval placement of right internal jugular catheter with tip projected over the mid superior vena c sharron. No evidence of pneumothorax. Right subclavian catheter tip projects over the distal superior v samantha cava. ET tube well above the lj. Gastric tube tip and side-port project within the stomach. There is persisting consolidation in the left lower lobe with loss of delineation of the medial two thirds of the hemidiaphragm. There is also persistent partially consolidated infiltrate of the righ t base. CONCLUSION: 1. Right internal jugular catheter tip in good position. No evidence of pneumothorax. 2. Persistent bilateral lower lung infiltrates, left greater than right. Evelio Boyd MD on September 01, 2016 at 6:48 Board Certified Radiologist. This report was verified electronically.
[2016-09-01] MEDS: INSULIN ASPART SUPPLEMENTAL SCALE SQ SCH ×5 (06:57→20:36)
--- NOTE | 2016-09-01 07:30 | HHI.CCPN ---
Subjective Remarks/Hospital Course 08/25: Patient is a 58-year-old male with past medical history significant COPD who, on 08/18/16, underwent Laparoscopic robotic extensive lysis of adhesions, low anterior resection and small bowel resection. Apparently he was brought in by Dr. Moffett for Diverticulitis. Patient has a history of hypertension, COPD, and continues to smoke one pack of cigarettes a day. Postoperatively patient became progressively short of breath. Pulmonary was consulted on 08/21/16 as the patient was becoming more hypoxemic requiring BiPAP. CT of the chest PE protocol did not show any pulmonary embolism. Patient was placed on breathing treatments and IV Solu-Medrol 40 mg every [address] Renteria. Today a.m. patient was on 100% nonrebreather. Patient was diagnosed with an anastomotic leak today and was taken back to the OR by Dr. Moffett. He underwent exploratory laparotomy, I&D and loop ileostomy today. Postop patient remained hypoxemic requiring 70% oxygen, and hence was left intubated and critical care medicine was consulted. Dr. Arce evaluated the patient in ICU. He remained hypoxemic, FiO2 70%. Chest x-ray shows bibasilar mild infiltrates. On sedation lightening patient became very hypertensive, not following commands probably secondary to residual NM blockade received while being transported to ICU. Patient on receiving vancomycin Levaquin and Flagyl per Dr. Moffett. Dr. Arce added cefepime to cover for Pseudomonas. Holding Solu-Medrol due to anastomotic leak. 08/26: Remains sedated, orally intubated on mechanical ventilation. Went into anuric renal failure yesterday which did not respond to fluid boluses and diuretics hence was started on hemodialysis after placement of right IJ Vas- Cath. Currently sedated, arousable, remains orally intubated on mechanical ventilation. Blood pressure borderline last evening following dialysis for which she was started on low-dose vasopressin 0.03 units per minute and Levophed which is currently at 1 jose per minute. Started on TPN last night following which he has been hyperglycemic. 08/27: Sedated, arousable, orally intubated on mechanical ventilation. Spiking fevers overnight. Off Levophed, transiently off vasopressin. Remains on TPN. 08/28: Remains sedated, arousable, orally intubated on mechanical ventilation. On low-dose vasopressin. TPN continues. Made about 500 cc of urine in the last 24 hours. 08/29: In sedated, arousable, orally intubated on mechanical ventilation. Remains on TPN. Dirty drainage from left-sided SERGEI drain noted overnight. Dr. Moffett obtaining CT abdomen pelvis with oral contrast and ID consulted. 08/30: CURRENT TEMPERATURE 99. Status post 4 L hemodialysis today. No current change in therapy. White blood cell count remained stable. Off vasopressors. Arousable to voice. Versed has been discontinued. We'll attempt CPAP trials again today. 08/31: MAXIMUM TEMPERATURE 100.4. Currently 100.1. Currently resting in bed in no acute distress. Continues with scant drainage from bilateral JPs. We'll attempt CPAP trial again today. Positive stool from ostomy bag Subjective 09/01: Tmax 99.8. Currently 99.3. Placement of the new right IJ vas catheter today. Plan for IR to possibly drain right lower quadrant fluid collection. Arousable and moves all 4 extremity spontaneously. Objective Vital Signs Date Time Temp Pulse Resp B/P Pulse Ox O2 Delivery O2 Flow Rate FiO2 09/01/16 06:00 103 09/01/16 04:17 95 40 09/01/16 04:00 99.3 26 114/56 08/31/16 19:00 Mechanical Ventilator Intake and Output 08/31/16 08/31/16 09/01/16 08:00 16:00 00:00 Intake Total 1121 ml 1306 ml 925 ml Output Total 785 ml 425 ml 240 ml Balance 336 ml 881 ml 685 ml Result Diagram: 09/01/16 0515 09/01/16 0515 Other Results Microbiology Date/Time Procedure Status Source Growth 08/31/16 15:40 Wound Culture Received Catheter Tip Central Venous Line Pending 08/31/16 15:40 Fungal Culture Received Catheter Tip Central Venous Line Pending 08/31/16 11:47 Urine Culture Received Urine Catheterized Urine Pending 08/31/16 11:47 Gram Stain Received Sputum Endotracheal Pending 08/31/16 11:47 Sputum Culture Received Sputum Endotracheal Pending 08/31/16 08:10 Aerobic Blood Culture Received Blood Peripheral Pending 08/31/16 08:10 Anaerobic Blood Culture Received Blood Peripheral Pending 08/29/16 14:00 Gram Stain - Final Resulted Wound Abdomen 08/29/16 14:00 Wound Culture - Preliminary Resulted Pseudomonas Species Group D Enterococcus Iram Albicans Yeast-Id To Follow Imaging Last Impressions Chest X-Ray 09/01/16 0626 Signed Impressions: Service Date/Time: Thursday, September 01, 2016 06:39 - CONCLUSION: 1. Right internal jugular catheter tip in good position. No evidence of pneumothorax. 2. Persistent bilateral lower lung infiltrates, left greater than right. Eveilo Boyd MD Abdomen/Pelvis CT 08/29/16 0000 Signed Impressions: Service Date/Time: Monday, August 29, 2016 17:12 - CONCLUSION: Post surgical changes following partial colon resection. Persistent pockets of fluid. Largest is located in the pelvis and contains an air-fluid level. Abscess formation cannot be excluded. Small bowel ileus Bibasilar airspace disease and pleural effusions Aakash Iqbal MD Abdomen X-Ray 08/24/16 0000 Signed Impressions: Service Date/Time: August 07:44 - CONCLUSION: Gaseous distention of multiple bowel loops possible ileus. Jony Miller MD Enema w/Water Soluble 08/23/16 0000 Signed Impressions: Service Date/Time: Tuesday, August 23, 2016 10:12 - CONCLUSION: Anastomosis appears patent without extravasation. Aditya Rocha MD FACR CT Angiography 08/21/16 0000 Signed Impressions: Service Date/Time: Sunday, August 21, 2016 14:05 - CONCLUSION: 1. There is no evidence for central pulmonary emboli. 2. Minimal subcutaneous air as well as free intraperitoneal air. Aditya Rocha MD FACR Objective Remarks GENERAL: 56-year-old obese well-developed male who is orotracheally intubated in no acute distress SKIN: Erythema of the skin on right lower abdomen HEAD: Atraumatic. Normocephalic. EYES: Pupils equal round and reactive about 3 mm bilaterally. ENT: Orotracheally intubated NECK: Trachea midline. No JVD or lymphadenopathy. Right IJ hemodialysis catheter clean dry and intact. CARDIOVASCULAR: Tachycardic, RR. S1, S2. No S4. Without murmurs, gallops, or rubs. RESPIRATORY: Orally intubated on mechanical ventilation, air entry decreased bilaterally at bases with scattered rhonchi, no inspiratory or expiratory wheezing. GASTROINTESTINAL: Abdomen distended. Midline incision clean and intact. Bilateral SERGEI drains at the flanks with sero-sanguinous output. Ileostomy noted. Erythema of the skin lateral to ileostomy. MUSCULOSKELETAL: Extremities with 1+ bilateral upper and lower extremity edema NEUROLOGICAL: Sedated, arousable, opens eyes to voice but not following commands currently. Urinary Catheter: Yes Assessment to: Continue Mg insert reason: Prolonged Immobilization Vascular Central Line Catheter: Yes Assessment to: Continue Date of Insertion: Aug 31, 2016 Line: Central Venous Catheter Side: Right Location: Subclavian A/P Assessment and Plan NEURO/PSYCH: History of anxiety -On Sedation and pain control with Versed as needed and fentanyl at 175 jose grams an hour infusions for analgesia. Goal of RASS -2 -Daily sedation vacation, follow neuro status. - Acetaminophen for fever RESP: Acute hypoxemic respiratory failure COPD exacerbation Probable healthcare associated pneumonia -Continue ACV 22/600 0.75/7/80 Ventilator bundle -Albuterol nebs every 4 hours scheduled and when necessary, Symbicort 2 puffs every 12 was discontinued while in ventilator. Continue Pulmicort twice a day -Broad-spectrum antibiotics as below -Continue daily C Pap trials. Dr. Renteria/Pulmonary following CV: Hypotension secondary to septic shock resolved History of hypertension -Received multiple fluid boluses on 08/25. IV fluids discontinued subsequently in view of anuria necessitating hemodialysis. On TPN at 65 cc an hour Off all vasopressors -Attempt negative fluid balance with hemodialysis. GI/ Nutrition: Anastomotic leak status post exploratory laparotomy, I&D, loop ileostomy 08/24/16 s/p Laparoscopic robotic extensive ANNA MARIE, robotic LAR and small bowel resection Laparoscopic robotic ANNA MARIE, robotic LAR and small bowel resection with anastomotic leak History of diverticulitis -Status post exploratory laparotomy, I&D, loop ileostomy 08/24/16 -Postoperative management per Dr. Moffett. Broad-spectrum antibiotics as below. Left SERGEI drain 5 cc. Right SERGEI 30 cc[address] abdomen pelvis with oral contrast 08/29 reveal small bowel ileus. Serous fluid collection likely postoperative changes. - On Reglan to improve GI motility -Started on TPN 08/25 at 65 cc an hour with lipids daily Protonix for GI prophylaxis Plan for IR to drain fluid collection right lower quadrant today 09/01 Renal/: Acute kidney injury History BPH Status post bilateral ureteral stents placed by Dr. Fraser 2/24 -Monitor renal function closely. Mg catheter. -IV fluids discontinued in view of anuric renal failure and hyperkalemia necessitating hemodialysis. Nephrology consulted and following. -Attempt maintaining even to slightly negative fluid balance if blood pressure permits. New right IJ hemodialysis catheter placed 09/01 ID: Anastomotic leak Sepsis Probable HCAP -IV vancomycin, Flagyl and Levaquin per Dr. Moffett. Cefepime for broadening abx coverage added 08/26. Spiking temperatures so added micafungin on 08/27 for antifungal coverage. ID consult with Dr. Apodaca appreciated.. Left-sided SERGEI drain with bloody output. Pertinent culture 08/31 - line culture pending 08/31 - blood cultures 2 - pending 08/31 - sputum - pending 08/29 - wound - Pseudomonas, group D enterococcus, C. albicans and yeast 08/25 blood cultures - no growth 08/25 sputum - Serratia/Klebsiella/Pseudomonas 08/24 - wound - no growth HEME: Leukocytosis Normocytic anemia -Monitor CBC, CMP, coags ENDO: -Sliding-scale insulin for glycemic control. 40 units sliding scale past 24 hours. Levemir 15 units twice a day PROPH: -Bilateral lower extremity SCDs. Heparin subcutaneous for DVT prophylaxis held for procedure. We'll restart in a.m.. Protonix for GI prophylaxis LINES: -Left subclavian central line placed in the OR 08/24 - 08/31. Right subclavian central line placed 08/31 - RIJ dialysis catheter 08/25 -08/31. New right IJ hemodialysis catheter 09/01 Critical Care: The total critical care time was 35 minutes. Time to perform other separately billable procedures was not included in the critical care time. Connor Lebron MD Sep 01, 2016 07:30
[2016-09-01] MEDS: RESP: BUDESONIDE 0.5 MG/2 ML NEB NEB SCH ×2 (07:38→20:35)
[2016-09-01 07:52] LABS: BANDS 25 % (0-6); EOSINOPHILS 2 % (0-4); METAMYELOCYTES 7 % (0-1); NEUTROPHIL # MANUAL DIFF 19.7 TH/MM3 (1.8-7.7); PLASMA CELLS 2 % (0-0); POLYS (SEG NEUTROPHILS) 54 % (16-70); WBC DIFF SAMPLE 100
[2016-09-01 07:53] LABS: PLATELET ESTIMATE SMEAR NORMAL (NORMAL); PLATELET MORPHOLOGY CLUMPED (NORMAL)
[2016-09-01 07:54] LABS: DOHLE BODIES PRESENT (NONE SEEN); SCAN/DIFF FINAL DIFF MANUAL; TOXIC GRANULATION 1+ (NORMAL)
[2016-09-01] MEDS: VANCOMYCIN INJ 1,000 MG in SODIUM CHLOR 0.9% 250 ML INJ 250 ML IV SCH (08:14)
[2016-09-01] MEDS: CEFEPIME INJ 2,000 MG in SODIUM CHLORIDE 0.9% INJ 100 ML IV SCH (11:21)
[2016-09-01] MEDS: SODIUM CHLORIDE 0.9% FLUSH 5 ML FLUSH IVF SCH ×2 (11:23→20:37)
[2016-09-01] MEDS: MUPIROCIN 2% OINT 1 APPLIC/GM SYR EACH NARE SCH ×2 (11:23→20:36)
[2016-09-01] MEDS: PANTOPRAZOLE SODIUM 40 MG VIAL IVP SCH (11:23)
[2016-09-01] MEDS: CHLORHEXIDINE 0.12% (ORAL KIT) 15 ML CUP MT SCH ×2 (11:23→20:00)
[2016-09-01] MEDS: INSULIN DETEMIR 100 UNITS/ML VIAL SQ SCH ×2 (11:24→20:35)
--- NOTE | 2016-09-01 11:24 | HHI.PR ---
Subjective Remarks YOAA male with robotic surgery,COPD exac Underwent exp lap,I&d and loop iliostomy placement Remains on vent Sedated Opens eyes, moves ext Had vas cath and HD done Objective Vital Signs Vital Signs Date Time Temp Pulse Resp B/P Pulse Ox O2 Delivery O2 Flow Rate FiO2 09/01/16 11:10 98 50 09/01/16 08:00 112 09/01/16 08:00 60 09/01/16 08:00 09/01/16 07:38 98 60 09/01/16 07:00 98 Mechanical Ventilator 40 09/01/16 06:00 103 09/01/16 04:17 95 40 09/01/16 04:00 99.3 107 26 114/56 96 09/01/16 04:00 40 09/01/16 04:00 09/01/16 04:00 108 09/01/16 02:00 98 09/01/16 00:00 99.0 112 26 107/57 95 09/01/16 00:00 09/01/16 00:00 40 09/01/16 00:00 112 08/31/16 23:51 95 40 08/31/16 22:00 109 08/31/16 20:38 95 40 08/31/16 20:00 106 08/31/16 20:00 08/31/16 20:00 99.8 106 26 126/59 95 08/31/16 20:00 40 08/31/16 19:00 94 Mechanical Ventilator 40 08/31/16 18:00 106 08/31/16 16:03 94 40 08/31/16 16:00 08/31/16 16:00 99.1 107 24 115/57 94 08/31/16 16:00 40 08/31/16 16:00 102 08/31/16 15:00 110 08/31/16 12:51 92 40 08/31/16 12:00 40 08/31/16 12:00 08/31/16 12:00 104 08/31/16 12:00 99.1 108 26 113/58 96 I/O 08/31/16 08/31/16 08/31/16 09/01/16 09/01/16 09/01/16 07:00 15:00 23:00 07:00 15:00 23:00 Intake Total 1121 ml 1306 ml 925 ml 839 ml Output Total 785 ml 425 ml 240 ml 250 ml 4500 ml Balance 336 ml 881 ml 685 ml 589 ml -4500 ml IV Total 513 ml 641 ml 379 ml 297 ml TPN/PPN 531 ml 581 ml 472 ml 469 ml Lipid 77 ml 84 ml 74 ml 73 ml Output Urine Total 25 ml 50 ml 80 ml 0 ml Stool Total 625 ml 300 ml 100 ml 200 ml Gastric Drainage Total 125 ml 50 ml 50 ml 50 ml Drainage Total 10 ml 25 ml 10 ml 0 ml Hemodialysis 4500 ml Result Diagram: 09/01/1651409/01/16514 Objective Remarks GENERAL: WBWN obese male, on Vent , sedated SKIN: Warm and dry. HEAD: Normocephalic. EYES: No scleral icterus. No injection or drainage. NECK: Supple, trachea midline. No JVD or lymphadenopathy. CARDIOVASCULAR: Regular rate and rhythm without murmurs, gallops, or rubs. RESPIRATORY: Breath sounds equal bilaterally. No accessory muscle use. exp rhonchi GASTROINTESTINAL: Abdomen soft, non-tender, Abd distended MUSCULOSKELETAL: No cyanosis, or edema. BACK: Nontender without obvious deformity. No CVA tenderness. A/P Assessment and Plan Resp Failure, on vent COPD exac S/p robotic surgery Anxiety S/p Exp lap PLAN: Cont vent support aerosol nebs Nebuliser rx qid and prn Abx per ID Cefepime,Levaquin,Flagyl,Micafungin and vanco Stable off pressors Going for CT guided abcess drainage Robbie Renteria MD Sep 01, 2016 11:23
[2016-09-01] MEDS: LABETALOL HCL 100 MG/20 ML VIAL IV PUSH PRN (11:26)
[2016-09-01] MEDS: MICAFUNGIN INJ 100 MG in SODIUM CHLORIDE 0.9% INJ 100 ML IV SCH (11:44)
--- NOTE | 2016-09-01 11:51 | HHI.IDPN ---
Note Infectious Disease Note Patient is on the vent. Sedated. Opens eyes. Temp lower. WBC elevated. PAST MEDICAL HISTORY 1. Diverticulitis. 2. COPD. 3. Hypertension. 4. Anxiety disorder. 5. BPH. 6. History of tonsillectomy. ALLERGIES No known drug allergies. ANTIBIOTICS 1. Cefepime. 2. Levaquin. 3. Vancomycin. 4. Micafungin. 5. Metronidazole. SOCIAL HISTORY The patient is a smoker of one pack of cigarettes a day. No alcohol. No illicit drugs. OBJECTIVE: Vital Signs Date Time Temp Pulse Resp B/P Pulse Ox O2 Delivery O2 Flow Rate FiO2 09/01/16 11:10 98 50 09/01/16 08:00 112 09/01/16 08:00 60 09/01/16 08:00 09/01/16 07:38 98 60 09/01/16 07:00 98 Mechanical Ventilator 40 09/01/16 06:00 103 09/01/16 04:17 95 40 09/01/16 04:00 99.3 107 26 114/56 96 09/01/16 04:00 40 09/01/16 04:00 09/01/16 04:00 108 09/01/16 02:00 98 09/01/16 00:00 99.0 112 26 107/57 95 09/01/16 00:00 09/01/16 00:00 40 09/01/16 00:00 112 08/31/16 23:51 95 40 08/31/16 22:00 109 08/31/16 20:38 95 40 08/31/16 20:00 106 08/31/16 20:00 08/31/16 20:00 99.8 106 26 126/59 95 08/31/16 20:00 40 08/31/16 19:00 94 Mechanical Ventilator 40 08/31/16 18:00 106 08/31/16 16:03 94 40 08/31/16 16:00 08/31/16 16:00 99.1 107 24 115/57 94 08/31/16 16:00 40 08/31/16 16:00 102 08/31/16 15:00 110 08/31/16 12:51 92 40 08/31/16 12:00 40 08/31/16 12:00 08/31/16 12:00 104 08/31/16 12:00 99.1 108 26 113/58 96 08/31/16 08/31/16 09/01/16 15:00 23:00 07:00 Intake Total 1306 ml 925 ml 839 ml Output Total 425 ml 240 ml 250 ml Balance 881 ml 685 ml 589 ml IV Total 641 ml 379 ml 297 ml TPN/PPN 581 ml 472 ml 469 ml Lipid 84 ml 74 ml 73 ml Output Urine Total 50 ml 80 ml 0 ml Stool Total 300 ml 100 ml 200 ml Gastric Drainage Total 50 ml 50 ml 50 ml Drainage Total 25 ml 10 ml 0 ml Laboratory Tests Test 08/31/16 09/01/16 05:15 05:15 White Blood Count 24.2 TH/MM3 22.9 TH/MM3 Red Blood Count 2.99 MIL/MM3 2.83 MIL/MM3 Hemoglobin 8.4 GM/DL 7.9 GM/DL Hematocrit 25.6 % 24.0 % Mean Corpuscular Volume 85.7 FL 84.8 FL Mean Corpuscular Hemoglobin 28.0 PG 28.1 PG Mean Corpuscular Hemoglobin 32.7 % 33.1 % Concent Red Cell Distribution Width 15.1 % 15.1 % Platelet Count 228 TH/MM3 245 TH/MM3 Mean Platelet Volume 9.0 FL 9.0 FL Neutrophils (%) (Auto) 84.8 % 85.7 % Lymphocytes (%) (Auto) 5.0 % 4.0 % Monocytes (%) (Auto) 9.3 % 9.5 % Eosinophils (%) (Auto) 0.5 % 0.6 % Basophils (%) (Auto) 0.4 % 0.2 % Neutrophils # (Auto) 20.5 TH/MM3 19.6 TH/MM3 Lymphocytes # (Auto) 1.2 TH/MM3 0.9 TH/MM3 Monocytes # (Auto) 2.2 TH/MM3 2.2 TH/MM3 Eosinophils # (Auto) 0.1 TH/MM3 0.1 TH/MM3 Basophils # (Auto) 0.1 TH/MM3 0.1 TH/MM3 CBC Comment AUTO DIFF AUTO DIFF Differential Total Cells 100 100 Counted Neutrophils % (Manual) 36 % 54 % Band Neutrophils % 28 % 25 % Lymphocytes % 5 % 6 % Monocytes % 7 % 4 % Eosinophils % 1 % 2 % Neutrophils # (Manual) 21.1 TH/MM3 19.7 TH/MM3 Metamyelocytes 7 % 7 % Myelocytes 12 % Promyelocytes 4 % Differential Comment FINAL DIFF FINAL DIFF MANUAL MANUAL Dohle Bodies PRESENT PRESENT Platelet Estimate NORMAL NORMAL Platelet Morphology Comment NORMAL CLUMPED Plasma Cells 2 % Toxic Granulation 1+ Laboratory Tests Test 08/31/16 09/01/16 05:15 05:15 Sodium Level 136 MEQ/L 135 MEQ/L Potassium Level 4.8 MEQ/L 5.3 MEQ/L Chloride Level 101 MEQ/L 101 MEQ/L Carbon Dioxide Level 24.3 MEQ/L 21.2 MEQ/L Anion Gap 11 MEQ/L 13 MEQ/L Blood Urea Nitrogen 84 MG/DL 105 MG/DL Creatinine 5.79 MG/DL 6.81 MG/DL Estimat Glomerular Filtration 10 ML/MIN 8 ML/MIN Rate Random Glucose 242 MG/DL 267 MG/DL Calcium Level 8.3 MG/DL 8.4 MG/DL Phosphorus Level 4.1 MG/DL 5.3 MG/DL Magnesium Level 2.1 MG/DL 2.1 MG/DL Total Bilirubin 0.8 MG/DL 0.8 MG/DL Aspartate Amino Transf 24 U/L 23 U/L (AST/SGOT) Alanine Aminotransferase 6 U/L LESS THAN 6 U/L (ALT/SGPT) Alkaline Phosphatase 105 U/L 111 U/L Total Creatine Kinase 95 U/L Total Protein 5.6 GM/DL 5.7 GM/DL Albumin 1.5 GM/DL 1.4 GM/DL Microbiology Date/Time Procedure Status Source Growth 08/29/16 14:00 Gram Stain - Final Resulted Wound Abdomen 08/29/16 14:00 Wound Culture - Preliminary Resulted Pseudomonas Aeruginosa Group D Enterococcus Iram Albicans Iram [place] 08/31/16 08:04 Aerobic Blood Culture - Preliminary Resulted Blood Peripheral NO GROWTH IN 1 DAY 08/31/16 08:04 Anaerobic Blood Culture - Preliminary Resulted Blood Peripheral NO GROWTH IN 1 DAY 08/31/16 08:10 Aerobic Blood Culture - Preliminary Resulted Blood Peripheral NO GROWTH IN 1 DAY 08/31/16 08:10 Anaerobic Blood Culture - Preliminary Resulted Blood Peripheral NO GROWTH IN 1 DAY 08/31/16 11:47 Gram Stain - Final Resulted Sputum Endotracheal 08/31/16 11:47 Sputum Culture - Preliminary Resulted Gram Negative Denis 08/31/16 11:47 Urine Culture Received Urine Catheterized Urine Pending 08/31/16 15:40 Wound Culture Received Catheter Tip Central Venous Line Pending 08/31/16 15:40 Fungal Culture Received Catheter Tip Central Venous Line Pending PHYSICAL EXAMINATION GENERAL: Sedated on the ventilator. No meaningful response. HEENT: The oropharynx is intubated. NECK: No adenopathy or swelling. LUNGS: Bilateral rhonchi. HEART: Regular rate and rhythm. No audible murmurs, rubs or gallops. ABDOMEN: Distended. Diminished bowel sounds. Two drainage catheters exit the abdomen including one on the left side which has serous drainage. EXTREMITIES: No clubbing or cyanosis. 1-2+ edema. Distal pulses 2+. SKIN: Warm and moist. No rash. NEUROLOGIC: Unable to fully assess. IMPRESSION 1. Sepsis. 2. Peritonitis. Post abdominal surgery/Bowel resection. Abdominal culture has enterococcus, pseudomonas and yeast. 3. Pneumonia due to gram-negative bacteria with sputum culture showing Serratia, Klebsiella and Pseudomonas. 4. Leukocytosis secondary to infection. WBC remain elevated. 5. Acute renal failure. 6. Acute respiratory failure. RECOMMENDATIONS 1. Continue cefepime and Levaquin for gram-negative coverage. 2. Continue vancomycin. 3. Continue micafungin. 4. Continue metronidazole can switch to PO. 5. Monitor white blood cell count. 6. Monitor new cultures. Tim Apdoaca MD Sep 01, 2016 11:51
[2016-09-01 12:18] LABS: APTT (PATIENT) 38.3 SEC (24.3-30.1); INTERNATIONAL NORMALIZED RATIO 1.2 RATIO; PROTHROMBIN TIME - PATIENT 12.8 SEC (9.8-11.6)
[2016-09-01] MEDS ORDERED: LIDOCAINE 1%/EPINEPHrine 1:100,000 SOLN 20 ML VIAL ONE (12:22)
[2016-09-01] MEDS: HALOPERIDOL LACTATE 5 MG/ML AMP IV PRN (14:36)
--- NOTE | 2016-09-01 15:40 | RADRPT ---
EXAM DATE/TIME: 09/01/2016 13:05 [place] COMPARISON: No previous studies available for comparison. INDICATIONS : Right lower quadrant abscess. DEVICE(S): 1.) 12 Fr Skater 2.) FLUID: Total volume of 75 cc of henry fluid was removed. Fluid was sent for laboratory ordered studies. MEDICAL HISTORY : Hypertension. Diverticulitis. Kidney disease SURGICAL HISTORY : Colostomy. ENCOUNTER: Initial ACUITY: 1 day PAIN SCORE: Non-responsive LOCATION: Right lower quadrant PROCEDURE: 1.) Conscious sedation with continuous EKG and oximetry monitoring. PROCEDURE : 1. CT guided drainage of the right lower quadrant air and fluid collection. 2. Conscious sedation with continuous EKG and oximetry monitoring. The risks, benefits and alternatives to the procedure were explained and verbal and written consent w as obtained. Using automated exposure control and adjustment of the mA and/or kV according to patient size, radiation dose was kept as low as reasonably achievable to obtain optimal diagnostic quality i mages. The site was prepped in sterile fashion. Full sterile technique was used, including cap, ma sk, sterile gloves and gown and a large sterile sheet. Hand hygiene and 2% chlorhexidine and/or beta dine/alcohol prep was utilized per protocol for cutaneous antisepsis. The skin and subcutaneous tiss ues were infiltrated with local anesthetic solution. Using CT guidance the right lower quadrant fluid collection was localized. The Arevalo needle was ad vanced to the fluid collection under imaging guidance. Once the correct location a guidewire was plac ed into the fluid collection. The tract was serially dilated up to a 12 Bangladeshi size and a 12 Bangladeshi l ocking skater catheter was advanced into the fluid collection. The patient tolerated the procedure well and there were no complications. EKG and oximetry remained stable throughout the procedure. The patient tolerated the procedure well and there were no complicat ions. The patient was sent to post anesthesia recovery in stable condition. CONCLUSION: Uncomplicated CT guided drainage of a right lower quadrant fluid collection. Approximately 75 cc of f ecal-like brown material was aspirated. The air and fluid collection may communicate with the inferio r aspect of the midline wound on the anterior abdominal wall. Claude Carrasco MD on September 01, 2016 at 15:33 Board Certified Radiologist. This report was verified electronically.
--- NOTE | 2016-09-01 16:10 | HHI.NPPN ---
Subjective Renal Failure: Acute Interval History Remains intubated, sedated. Went to IR to have drain placed in lower quad. Midabdominal wound has dehisced. (Fransisca Canela) Review of Systems General General Remarks unable to evaluate (Fransisca Canela) Objective Data Data 08/31/16 09/01/16 19:00 07:00 Intake Total 1306 ml 1764 ml Output Total 425 ml 490 ml Balance 881 ml 1274 ml IV Total 641 ml 676 ml TPN/PPN 581 ml 941 ml Lipid 84 ml 147 ml Output Urine Total 50 ml 80 ml Stool Total 300 ml 300 ml Gastric Drainage Total 50 ml 100 ml Drainage Total 25 ml 10 ml Vital Signs Date Time Temp Pulse Resp B/P Pulse Ox O2 Delivery O2 Flow Rate FiO2 09/01/16 14:00 97 09/01/16 12:30 100 100 09/01/16 12:00 107 09/01/16 12:00 50 09/01/16 12:00 09/01/16 11:10 98 50 09/01/16 10:00 110 09/01/16 08:00 98.6 112 22 96/54 96 09/01/16 08:00 112 09/01/16 08:00 60 09/01/16 08:00 09/01/16 07:38 98 60 09/01/16 07:00 98 Mechanical Ventilator 40 09/01/16 06:00 103 09/01/16 04:17 95 40 09/01/16 04:00 99.3 107 26 114/56 96 09/01/16 04:00 40 09/01/16 04:00 09/01/16 04:00 108 09/01/16 02:00 98 09/01/16 00:00 99.0 112 26 107/57 95 09/01/16 00:00 09/01/16 00:00 40 09/01/16 00:00 112 08/31/16 23:51 95 40 08/31/16 22:00 109 08/31/16 20:38 95 40 08/31/16 20:00 106 08/31/16 20:00 08/31/16 20:00 99.8 106 26 126/59 95 08/31/16 20:00 40 08/31/16 19:00 94 Mechanical Ventilator 40 08/31/16 18:00 106 (Fransisca Canela) -: 09/01/16 0515 09/01/16 0515 Microbiology 09/01/16 Gram Stain, Received Pending 09/01/16 Wound Culture, Received Pending Imaging Last 72 hours Impressions Chest X-Ray 09/01/16 0626 Signed Impressions: Service Date/Time: Thursday, September 01, 2016 06:39 - CONCLUSION: 1. Right internal jugular catheter tip in good position. No evidence of pneumothorax. 2. Persistent bilateral lower lung infiltrates, left greater than right. Evelio Boyd MD Retroperitoneal Abscess Drainage 09/01/16 0600 Signed Impressions: Service Date/Time: Thursday, September 01, 2016 13:05 - CONCLUSION: Uncomplicated CT guided drainage of a right lower quadrant fluid collection. Approximately 75 cc of fecal-like brown material was aspirated. The air and fluid collection may communicate with the inferior aspect of the midline wound on the anterior abdominal wall. Claude Carrasco MD Chest X-Ray 08/31/16 0600 Signed Impressions: Service Date/Time: August 02:13 - CONCLUSION: Slight interval worsening of bilateral effusions with atelectatic changes. Juwan Guzman MD Chest X-Ray 08/31/16 0000 Signed Impressions: Service Date/Time: August 14:47 - CONCLUSION: New right subclavian central venous catheter in good position; no evidence of pneumothorax. Increasing basilar airspace disease. Persistent mild/moderate congestion. Stable endotracheal and nasogastric tubes. Aakash Iqbal MD Tubes & Lines: Vas-Cath, Mg Tubes & Lines Comment TLC, Drip Comment fentanyl, TPN, lipids (Fransisca Canela) Physical Exam General Appearance: Well Developed, Well Nourished, No Acute Distress Appearance Remarks intubated, sedated (Fransisca Canela) Throat Throat Exam: Oral Mucosa [place] & Moist (Fransisca Canela) Pulmonary Resp Exam: Breath Sounds Equal, No Distress, Crackles, Diminished Breath Sounds Resp Remarks vented (Fransisca Canela) Cardiology CV Exam: Regular, Normal Sinus Rhythm (Fransisca Canela) Gastrointestinal/Abdomen GI Exam: Distended GI Remarks distended, firm; colostomy with protruding beefy red stoma; hyperactive bowel sounds (Fransisca Canela) Musculoskeletal MS Exam: Joints Intact, Normal Tone (Fransisca Canela) Integumentary Skin Exam: Warm, Dry Skin Remarks below umbilicus, midabdominal wound has dehisced (Fransisca Canela) Extremeties Extremities Exam: Pedal Pulses Palpable, Moderate Edema (Fransisca Canela) Neurologic Neuro Exam: Unresponsive, Sedated (Fransisca Canela) VTE Prophylaxis Device: SCDs (Fransisca Canela) Assessment/Plan Discussed Condition With: Son Assessment Summary: VIRIDIANA/Acute Renal Failure, Acute Tubular Necrosis Problem List: (1) Acute renal failure Plan: in a pt with normal renal function at baseline oliguric renal failure, ATN from sepsis and renal hypoperfusion HD started 08/25; now on schedule 4.5 L UF today vascath replaced right IJ avoid IVF; monitor fluid volume status, attempt negative balance monitor BP, pressors to maintain MAP although he has not been requiring daily renal panel, await renal recovery of note his vancomycin levels were high (2) Diverticulitis Plan: s/p colon resection with complications surgery following, appreciate recommendations continue present antibiotics including vancomycin, flagyl, Levaquin, cefepime, micafungin ID following TPN infusing; he is NPO he is febrile and tachycardic, remove vascath today repeat CT: free fluid and ileus present (Fransisca Canela) Plan patient was seen and examined. No signs of renal recovery. Oligoanuric. Needs continued dialysis support. (Tito Kuo MD) Problem Qualifiers (1) Acute renal failure: Qualified Code: N17.0 - Acute renal failure with tubular necrosis Fransisca Canela Sep 01, 2016 16:10 Tito Kuo MD Sep 04, 2016 09:32
--- NOTE | 2016-09-01 16:21 | HHI.PR ---
Subjective Remarks WBC elevated. Intraabdominal abscess drained 75 cc feculent drainage. Objective Vital Signs Date Time Temp Pulse Resp B/P Pulse Ox O2 Delivery O2 Flow Rate FiO2 09/01/16 14:00 97 09/01/16 12:30 100 100 09/01/16 12:00 107 09/01/16 12:00 50 09/01/16 12:00 09/01/16 11:10 98 50 09/01/16 10:00 110 09/01/16 08:00 98.6 112 22 96/54 96 09/01/16 08:00 112 09/01/16 08:00 60 09/01/16 08:00 09/01/16 07:38 98 60 09/01/16 07:00 98 Mechanical Ventilator 40 09/01/16 06:00 103 09/01/16 04:17 95 40 09/01/16 04:00 99.3 107 26 114/56 96 09/01/16 04:00 40 09/01/16 04:00 09/01/16 04:00 108 09/01/16 02:00 98 09/01/16 00:00 99.0 112 26 107/57 95 09/01/16 00:00 09/01/16 00:00 40 09/01/16 00:00 112 08/31/16 23:51 95 40 08/31/16 22:00 109 08/31/16 20:38 95 40 08/31/16 20:00 106 08/31/16 20:00 08/31/16 20:00 99.8 106 26 126/59 95 08/31/16 20:00 40 08/31/16 19:00 94 Mechanical Ventilator 40 08/31/16 18:00 106 I/O 08/31/16 08/31/16 08/31/16 09/01/16 09/01/16 09/01/16 07:00 15:00 23:00 07:00 15:00 23:00 Intake Total 1121 ml 1306 ml 925 ml 839 ml 1358 ml Output Total 785 ml 425 ml 240 ml 250 ml 4775 ml Balance 336 ml 881 ml 685 ml 589 ml -3417 ml Intake Oral 0 ml IV Total 513 ml 641 ml 379 ml 297 ml 689 ml TPN/PPN 531 ml 581 ml 472 ml 469 ml 580 ml Lipid 77 ml 84 ml 74 ml 73 ml 89 ml Output Urine Total 25 ml 50 ml 80 ml 0 ml 50 ml Stool Total 625 ml 300 ml 100 ml 200 ml 20 ml Gastric Drainage Total 125 ml 50 ml 50 ml 50 ml 100 ml Drainage Total 10 ml 25 ml 10 ml 0 ml 105 ml Hemodialysis 4500 ml Result Diagram: 09/01/1651409/01/16514 Objective Remarks VS-S Abd: obese,distended,stooling from Ileostomy. Wound undressed. Now with lower fascial dehiscence but wound clean with BID dressings. May use a wound vac in a couple days. Assessment and Plan Assessment and Plan Stable Resp failure. ARF.Wound infection with fascial separation. Clean Cont present therapy. Off pressors. Will follow through weekend for Dr Zuhair Flores,Claude Herrera MD Sep 01, 2016 16:21
[2016-09-01] MEDS: FAT EMULSION 20% INJ 250 ML (@10 mls/hr) IV-CENTRAL SCH (20:37)
[2016-09-02] VITALS (19 sets, daily range): BP systolic 125–169; BP diastolic 58–79; PULSE 95–117; RESP 22–27; TEMP 98.3–100.5; O2SAT 95–98
[2016-09-02] MEDS: SODIUM CHLORIDE IV-CENTRAL SCH ×18 (00:04→22:13)
[2016-09-02] MEDS: [UNRECOGNIZED DRUG - OTHER] IV-CENTRAL SCH ×18 (00:04→22:13)
[2016-09-02] MEDS: SODIUM ACETATE IV-CENTRAL SCH ×18 (00:04→22:13)
[2016-09-02] MEDS: RESP: ALBUTEROL 2.5 MG/3 ML NEB (SCH) INH ×7 (00:06→23:29)
[2016-09-02] MEDS: INSULIN ASPART SUPPLEMENTAL SCALE SQ SCH ×6 (00:25→20:00)
[2016-09-02] MEDS: fentaNYL 2,500 MCG/NS 250 ML IV SCH (02:28)
[2016-09-02] MEDS: metroNIDAZOLE 500 MG INJ 100 ML IV SCH ×2 (02:29→08:01)
[2016-09-02 04:07] LABS: BASOPHIL # 0.1 TH/MM3 (0-0.2); BASOPHIL % 0.2 % (0.0-2.0); EOSINOPHIL # 0.1 TH/MM3 (0-0.4); EOSINOPHIL % 0.6 % (0.0-4.0); HEMATOCRIT 22.7 % (39.0-51.0); LYMPH % 4.3 % (9.0-44.0); MEAN CELL VOLUME 84.6 FL (80.0-100.0); MEAN CORPUSCULAR HGB CONC 33.1 % (32.0-36.0); MONO % 8.5 % (0.0-8.0); NEUT % 86.4 % (16.0-70.0); PLATELET COUNT 260 TH/MM3 (150-450); RED BLOOD COUNT 2.68 MIL/MM3 (4.50-5.90); RED CELL DISTRIBUTION WIDTH 14.8 % (11.6-17.2); WHITE BLOOD COUNT 24.3 TH/MM3 (4.0-11.0)
[2016-09-02 04:12] LABS: HEMO FLAGS AUTO DIFF
[2016-09-02] MEDS: LABETALOL HCL 100 MG/20 ML VIAL IV PUSH PRN (04:16)
[2016-09-02 05:10] LABS: ALKALINE PHOSPHATASE 133 U/L (45-117); ALT (GPT) LESS THAN 6 U/L (12-78); ANION GAP 11 MEQ/L (5-15); AST (GOT) 27 U/L (15-37); BICARBONATE 25.1 MEQ/L (21.0-32.0); BLOOD UREA NITROGEN 84 MG/DL (7-18); CHLORIDE 101 MEQ/L (98-107); GLOMERULAR FILTRATION RATE 11 ML/MIN (>89); MAGNESIUM 2.1 MG/DL (1.5-2.5); POTASSIUM 4.5 MEQ/L (3.5-5.1); SODIUM (NA) 137 MEQ/L (136-145)
[2016-09-02] MEDS: METOCLOPRAMIDE HCL 10 MG/2 ML VIAL IV PUSH SCH ×3 (06:03→22:14)
[2016-09-02] MEDS: CEFEPIME INJ 2,000 MG in SODIUM CHLORIDE 0.9% INJ 100 ML IV SCH (07:54)
[2016-09-02] MEDS: CHLORHEXIDINE 0.12% (ORAL KIT) 15 ML CUP MT SCH ×2 (07:55→20:00)
[2016-09-02] MEDS: PANTOPRAZOLE SODIUM 40 MG VIAL IVP SCH (08:00)
[2016-09-02] MEDS: HEPARIN SODIUM - SQ 10,000 UNITS/ML VIAL SQ SCH ×2 (08:00→22:13)
[2016-09-02] MEDS: MUPIROCIN 2% OINT 1 APPLIC/GM SYR EACH NARE SCH ×2 (08:01→22:13)
[2016-09-02] MEDS: RESP: BUDESONIDE 0.5 MG/2 ML NEB NEB SCH ×2 (08:01→19:49)
[2016-09-02] MEDS: RESP: ALBUTEROL 2.5 MG/IPRATROPIUM 0.5 MG NEB (PRN) NEB (08:01)
[2016-09-02] MEDS: SODIUM CHLORIDE 0.9% FLUSH 5 ML FLUSH IVF SCH ×2 (08:01→22:15)
[2016-09-02] MEDS: INSULIN DETEMIR 100 UNITS/ML VIAL SQ SCH ×2 (08:02→22:16)
[2016-09-02] MEDS: MICAFUNGIN INJ 100 MG in SODIUM CHLORIDE 0.9% INJ 100 ML IV SCH (09:24)
[2016-09-02 09:36] LABS: BANDS 16 % (0-6); EOSINOPHILS 1 % (0-4); METAMYELOCYTES 7 % (0-1); MYELOCYTES 9 % (0-0); NEUTROPHIL # MANUAL DIFF 21.9 TH/MM3 (1.8-7.7); POLYS (SEG NEUTROPHILS) 58 % (16-70); WBC DIFF SAMPLE 100
[2016-09-02 09:38] LABS: PLATELET ESTIMATE SMEAR NORMAL (NORMAL); PLATELET MORPHOLOGY NORMAL (NORMAL); SCAN/DIFF FINAL DIFF MANUAL; STOMATOCYTES 1+ (NORMAL)
--- NOTE | 2016-09-02 10:32 | HHI.NPPN ---
Subjective Renal Failure: Acute Additional Remarks Patient intubated, sedated Review of Systems General General Remarks unable to evaluate Objective Data Data 09/01/16 09/02/16 19:00 07:00 Intake Total 1358 ml 1983 ml Output Total 4775 ml 445 ml Balance -3417 ml 1538 ml Intake Oral 0 ml IV Total 689 ml 832 ml TPN/PPN 580 ml 998 ml Lipid 89 ml 153 ml Output Urine Total 50 ml 100 ml Stool Total 20 ml 200 ml Gastric Drainage Total 100 ml 20 ml Drainage Total 105 ml 125 ml Hemodialysis 4500 ml Vital Signs Date Time Temp Pulse Resp B/P Pulse Ox O2 Delivery O2 Flow Rate FiO2 09/02/16 07:55 96 50 09/02/16 06:00 102 09/02/16 04:00 117 09/02/16 04:00 09/02/16 04:00 99.0 117 25 169/79 98 09/02/16 04:00 40 09/02/16 03:48 96 40 09/02/16 02:00 105 09/02/16 00:06 96 40 09/02/16 00:00 09/02/16 00:00 107 09/02/16 00:00 40 09/02/16 00:00 100.5 107 22 125/58 96 09/01/16 22:00 114 09/01/16 20:35 97 40 09/01/16 20:00 09/01/16 20:00 40 09/01/16 20:00 99.5 104 22 107/58 97 09/01/16 20:00 104 09/01/16 19:00 98 Mechanical Ventilator 40 09/01/16 18:00 102 09/01/16 16:18 98 45 09/01/16 16:00 100 09/01/16 16:00 99 09/01/16 16:00 98.4 98 23 124/61 98 09/01/16 16:00 09/01/16 14:00 97 09/01/16 12:30 100 100 09/01/16 12:00 107 09/01/16 12:00 98.7 96 22 114/56 97 09/01/16 12:00 50 09/01/16 12:00 09/01/16 11:10 98 50 -: 09/02/16 0345 09/02/16 0345 Microbiology 09/01/16 Gram Stain - Final, Resulted 09/01/16 Wound Culture, Resulted Pending Tubes & Lines: Vas-Cath, Mg Tubes & Lines Comment TLC, Drip Comment fentanyl, TPN, lipids Physical Exam General Appearance: Well Developed, Well Nourished, No Acute Distress Throat Throat Exam: Oral Mucosa [place] & Moist Pulmonary Resp Exam: Breath Sounds Equal, No Distress, Crackles, Diminished Breath Sounds Cardiology CV Exam: Regular, Normal Sinus Rhythm Gastrointestinal/Abdomen GI Exam: Distended Musculoskeletal MS Exam: Joints Intact, Normal Tone Integumentary Skin Exam: Warm, Dry Extremeties Extremities Exam: Pedal Pulses Palpable, Moderate Edema Neurologic Neuro Exam: Unresponsive, Sedated VTE Prophylaxis Device: SCDs Assessment/Plan Discussed Condition With: Son Assessment Summary: VIRIDIANA/Acute Renal Failure, Acute Tubular Necrosis Problem List: (1) Acute renal failure Plan: in a pt with normal renal function at baseline oliguric renal failure, ATN from sepsis and renal hypoperfusion HD started 08/25; now on schedule 4.5L UF yesterday, plan next HD Sunday Electrolytes stable avoid IVF; monitor fluid volume status, attempt negative balance monitor BP, pressors to maintain MAP although he has not been requiring daily renal panel, await renal recovery (2) Diverticulitis Plan: s/p colon resection with complications surgery following, appreciate recommendations continue present antibiotics including vancomycin, flagyl, Levaquin, cefepime, micafungin ID following TPN infusing; he is NPO repeat CT: free fluid and ileus present Problem Qualifiers (1) Acute renal failure: Qualified Code: N17.0 - Acute renal failure with tubular necrosis Dg Leung MD Sep 02, 2016 10:32
--- NOTE | 2016-09-02 10:54 | HHI.PR ---
Subjective Remarks WBC remains elevated. Remains intubated,off pressors. Objective Vital Signs Date Time Temp Pulse Resp B/P Pulse Ox O2 Delivery O2 Flow Rate FiO2 09/02/16 07:55 96 50 09/02/16 06:00 102 09/02/16 04:00 117 09/02/16 04:00 09/02/16 04:00 99.0 117 25 169/79 98 09/02/16 04:00 40 09/02/16 03:48 96 40 09/02/16 02:00 105 09/02/16 00:06 96 40 09/02/16 00:00 09/02/16 00:00 107 09/02/16 00:00 40 09/02/16 00:00 100.5 107 22 125/58 96 09/01/16 22:00 114 09/01/16 20:35 97 40 09/01/16 20:00 09/01/16 20:00 40 09/01/16 20:00 99.5 104 22 107/58 97 09/01/16 20:00 104 09/01/16 19:00 98 Mechanical Ventilator 40 09/01/16 18:00 102 09/01/16 16:18 98 45 09/01/16 16:00 100 09/01/16 16:00 99 09/01/16 16:00 98.4 98 23 124/61 98 09/01/16 16:00 09/01/16 14:00 97 09/01/16 12:30 100 100 09/01/16 12:00 107 09/01/16 12:00 98.7 96 22 114/56 97 09/01/16 12:00 50 09/01/16 12:00 09/01/16 11:10 98 50 I/O 09/01/16 09/01/16 09/01/16 09/02/16 09/02/16 09/02/16 07:00 15:00 23:00 07:00 15:00 23:00 Intake Total 839 ml 1358 ml 1137 ml 846 ml Output Total 250 ml 4775 ml 280 ml 165 ml Balance 589 ml -3417 ml 857 ml 681 ml Intake Oral 0 ml IV Total 297 ml 689 ml 512 ml 320 ml TPN/PPN 469 ml 580 ml 542 ml 456 ml Lipid 73 ml 89 ml 83 ml 70 ml Output Urine Total 0 ml 50 ml 50 ml 50 ml Stool Total 200 ml 20 ml 150 ml 50 ml Gastric Drainage Total 50 ml 100 ml 20 ml 0 ml Drainage Total 0 ml 105 ml 60 ml 65 ml Hemodialysis 4500 ml Result Diagram: 09/02/1634409/02/16344 Objective Remarks VS-S Abd: obese,distended,stooling from Ileostomy. Wound undressed. Wound clean. Definite fascial dehiscence in lower wound. Likely small bowel at base of wound. Assessment and Plan Assessment and Plan Stable Resp failure. ARF.Wound infection with fascial separation. Clean D/W nursing will start wound vac therapy for wound. Vaseline guaze in base of wound below sponge. Claude Flores MD Sep 02, 2016 10:54
--- NOTE | 2016-09-02 14:12 | HHI.IDPN ---
Note Infectious Disease Note Notes reviewed. Wound vac placed at the abdomen. Patient is on the vent. Sedated. Opens eyes. Low grade fever. WBC elevated. PAST MEDICAL HISTORY 1. Diverticulitis. 2. COPD. 3. Hypertension. 4. Anxiety disorder. 5. BPH. 6. History of tonsillectomy. ALLERGIES No known drug allergies. ANTIBIOTICS 1. Cefepime. 2. Levaquin. 3. Vancomycin. 4. Micafungin. 5. Metronidazole. SOCIAL HISTORY The patient is a smoker of one pack of cigarettes a day. No alcohol. No illicit drugs. OBJECTIVE: Vital Signs Date Time Temp Pulse Resp B/P Pulse Ox O2 Delivery O2 Flow Rate FiO2 09/02/16 13:20 98 50 09/02/16 10:00 102 09/02/16 08:00 102 09/02/16 08:00 09/02/16 08:00 50 09/02/16 08:00 103 09/02/16 07:55 96 50 09/02/16 07:00 95 Mechanical Ventilator 15.00 40 09/02/16 06:00 102 09/02/16 04:00 117 09/02/16 04:00 09/02/16 04:00 99.0 117 25 169/79 98 09/02/16 04:00 40 09/02/16 03:48 96 40 09/02/16 02:00 105 09/02/16 00:06 96 40 09/02/16 00:00 09/02/16 00:00 107 09/02/16 00:00 40 09/02/16 00:00 100.5 107 22 125/58 96 09/01/16 22:00 114 09/01/16 20:35 97 40 09/01/16 20:00 09/01/16 20:00 40 09/01/16 20:00 99.5 104 22 107/58 97 09/01/16 20:00 104 09/01/16 19:00 98 Mechanical Ventilator 40 09/01/16 18:00 102 09/01/16 16:18 98 45 09/01/16 16:00 100 09/01/16 16:00 99 09/01/16 16:00 98.4 98 23 124/61 98 09/01/16 16:00 Laboratory Tests Test 09/01/16 09/02/16 05:15 03:45 White Blood Count 22.9 TH/MM3 24.3 TH/MM3 Red Blood Count 2.83 MIL/MM3 2.68 MIL/MM3 Hemoglobin 7.9 GM/DL 7.5 GM/DL Hematocrit 24.0 % 22.7 % Mean Corpuscular Volume 84.8 FL 84.6 FL Mean Corpuscular Hemoglobin 28.1 PG 28.0 PG Mean Corpuscular Hemoglobin 33.1 % 33.1 % Concent Red Cell Distribution Width 15.1 % 14.8 % Platelet Count 245 TH/MM3 260 TH/MM3 Mean Platelet Volume 9.0 FL 8.7 FL Neutrophils (%) (Auto) 85.7 % 86.4 % Lymphocytes (%) (Auto) 4.0 % 4.3 % Monocytes (%) (Auto) 9.5 % 8.5 % Eosinophils (%) (Auto) 0.6 % 0.6 % Basophils (%) (Auto) 0.2 % 0.2 % Neutrophils # (Auto) 19.6 TH/MM3 21.0 TH/MM3 Lymphocytes # (Auto) 0.9 TH/MM3 1.0 TH/MM3 Monocytes # (Auto) 2.2 TH/MM3 2.1 TH/MM3 Eosinophils # (Auto) 0.1 TH/MM3 0.1 TH/MM3 Basophils # (Auto) 0.1 TH/MM3 0.1 TH/MM3 CBC Comment AUTO DIFF AUTO DIFF Differential Total Cells 100 100 Counted Neutrophils % (Manual) 54 % 58 % Band Neutrophils % 25 % 16 % Lymphocytes % 6 % 4 % Monocytes % 4 % 5 % Eosinophils % 2 % 1 % Neutrophils # (Manual) 19.7 TH/MM3 21.9 TH/MM3 Metamyelocytes 7 % 7 % Differential Comment FINAL DIFF FINAL DIFF MANUAL MANUAL Plasma Cells 2 % Toxic Granulation 1+ Dohle Bodies PRESENT Platelet Estimate NORMAL NORMAL Platelet Morphology Comment CLUMPED NORMAL Myelocytes 9 % Stomatocytes 1+ Laboratory Tests Test 09/01/16 09/02/16 05:15 03:45 Sodium Level 135 MEQ/L 137 MEQ/L Potassium Level 5.3 MEQ/L 4.5 MEQ/L Chloride Level 101 MEQ/L 101 MEQ/L Carbon Dioxide Level 21.2 MEQ/L 25.1 MEQ/L Anion Gap 13 MEQ/L 11 MEQ/L Blood Urea Nitrogen 105 MG/DL 84 MG/DL Creatinine 6.81 MG/DL 5.53 MG/DL Estimat Glomerular Filtration 8 ML/MIN 11 ML/MIN Rate Random Glucose 267 MG/DL 216 MG/DL Calcium Level 8.4 MG/DL 8.6 MG/DL Phosphorus Level 5.3 MG/DL 3.5 MG/DL Magnesium Level 2.1 MG/DL 2.1 MG/DL Total Bilirubin 0.8 MG/DL 1.0 MG/DL Aspartate Amino Transf 23 U/L 27 U/L (AST/SGOT) Alanine Aminotransferase LESS THAN 6 U/L LESS THAN 6 U/L (ALT/SGPT) Alkaline Phosphatase 111 U/L 133 U/L Total Protein 5.7 GM/DL 6.2 GM/DL Albumin 1.4 GM/DL 1.9 GM/DL Microbiology Date/Time Procedure Status Source Growth 08/31/16 08:04 Aerobic Blood Culture - Preliminary Resulted Blood Peripheral NO GROWTH IN 2 DAYS 08/31/16 08:04 Anaerobic Blood Culture - Preliminary Resulted Blood Peripheral NO GROWTH IN 2 DAYS 08/31/16 08:10 Aerobic Blood Culture - Preliminary Resulted Blood Peripheral NO GROWTH IN 2 DAYS 08/31/16 08:10 Anaerobic Blood Culture - Preliminary Resulted Blood Peripheral NO GROWTH IN 2 DAYS 08/31/16 11:47 Gram Stain - Final Resulted Sputum Endotracheal 08/31/16 11:47 Sputum Culture - Preliminary Resulted Gram Negative Denis 08/31/16 11:47 Urine Culture - Final Complete Urine Catheterized Urine NO GROWTH IN 48 HOURS. 08/31/16 15:40 Wound Culture - Final Complete Catheter Tip Central Venous Line Pseudomonas Species Staph Sp Coagulase Negative 08/31/16 15:40 Fungal Culture - Final Complete Catheter Tip Central Venous Line 09/01/16 13:45 Gram Stain - Final Resulted Abscess Abdomen 09/01/16 13:45 Wound Culture - Preliminary Resulted Pseudomonas Aeruginosa PHYSICAL EXAMINATION GENERAL: Sedated on the ventilator. HEENT: The oropharynx is intubated. NECK: No adenopathy or swelling. LUNGS: Bilateral rhonchi. HEART: Regular rate and rhythm. No audible murmurs, rubs or gallops. ABDOMEN: Distended. Diminished bowel sounds. Wound vac in place. EXTREMITIES: No clubbing or cyanosis. 1-2+ edema. Distal pulses 2+. SKIN: Warm and moist. No rash. NEUROLOGIC: Unable to fully assess. IMPRESSION 1. Sepsis. 2. Peritonitis. Post abdominal surgery/Bowel resection. Abdominal culture has enterococcus, pseudomonas and yeast. 3. Pneumonia due to gram-negative bacteria with sputum culture showing Serratia, Klebsiella and Pseudomonas. New culture has pseudomonas. 4. Leukocytosis secondary to infection. WBC remain elevated. 5. Acute renal failure. 6. Acute respiratory failure. RECOMMENDATIONS 1. Continue cefepime. 2. Change Levaquin to PIP/TAzobactam. 3. Discontinue Levaquin. 4. Continue vancomycin. 5. Continue micafungin. 6. Continue metronidazole PO. 7. Monitor white blood cell count. 8. Monitor new cultures. Tim Apodaca MD Sep 02, 2016 14:12
--- NOTE | 2016-09-02 15:07 | HHI.PR ---
Subjective Remarks YOAA male with robotic surgery,COPD exac Underwent exp lap,I&d and loop iliostomy placement Remains on vent Sedated Had wound vac placed Objective Vital Signs Vital Signs Date Time Temp Pulse Resp B/P Pulse Ox O2 Delivery O2 Flow Rate FiO2 09/02/16 14:00 95 09/02/16 13:20 98 50 09/02/16 12:00 112 09/02/16 12:00 98.5 112 22 161/77 95 09/02/16 12:00 09/02/16 12:00 50 09/02/16 10:00 102 09/02/16 08:00 102 09/02/16 08:00 09/02/16 08:00 50 09/02/16 08:00 98.3 108 22 149/70 96 09/02/16 08:00 103 09/02/16 07:55 96 50 09/02/16 07:00 95 Mechanical Ventilator 15.00 40 09/02/16 06:00 102 09/02/16 04:00 117 09/02/16 04:00 09/02/16 04:00 99.0 117 25 169/79 98 09/02/16 04:00 40 09/02/16 03:48 96 40 09/02/16 02:00 105 09/02/16 00:06 96 40 09/02/16 00:00 09/02/16 00:00 107 09/02/16 00:00 40 09/02/16 00:00 100.5 107 22 125/58 96 09/01/16 22:00 114 09/01/16 20:35 97 40 09/01/16 20:00 09/01/16 20:00 40 09/01/16 20:00 99.5 104 22 107/58 97 09/01/16 20:00 104 09/01/16 19:00 98 Mechanical Ventilator 40 09/01/16 18:00 102 09/01/16 16:18 98 45 09/01/16 16:00 100 09/01/16 16:00 99 09/01/16 16:00 98.4 98 23 124/61 98 09/01/16 16:00 I/O 09/01/16 09/01/16 09/01/16 09/02/16 09/02/16 09/02/16 07:00 15:00 23:00 07:00 15:00 23:00 Intake Total 839 ml 1358 ml 1137 ml 846 ml 1129 ml Output Total 250 ml 4775 ml 280 ml 165 ml 380 ml Balance 589 ml -3417 ml 857 ml 681 ml 749 ml Intake Oral 0 ml 0 ml IV Total 297 ml 689 ml 512 ml 320 ml 549 ml TPN/PPN 469 ml 580 ml 542 ml 456 ml 503 ml Lipid 73 ml 89 ml 83 ml 70 ml 77 ml Output Urine Total 0 ml 50 ml 50 ml 50 ml 75 ml Stool Total 200 ml 20 ml 150 ml 50 ml 100 ml Gastric Drainage Total 50 ml 100 ml 20 ml 0 ml 125 ml Drainage Total 0 ml 105 ml 60 ml 65 ml 80 ml Hemodialysis 4500 ml Result Diagram: 09/02/1634409/02/16344 Objective Remarks GENERAL: WBWN obese male, on Vent , sedated SKIN: Warm and dry. HEAD: Normocephalic. EYES: No scleral icterus. No injection or drainage. NECK: Supple, trachea midline. No JVD or lymphadenopathy. CARDIOVASCULAR: Regular rate and rhythm without murmurs, gallops, or rubs. RESPIRATORY: Breath sounds equal bilaterally. No accessory muscle use. exp rhonchi GASTROINTESTINAL: Abdomen soft, non-tender, Abd distended MUSCULOSKELETAL: No cyanosis, or edema. BACK: Nontender without obvious deformity. No CVA tenderness. A/P Assessment and Plan Resp Failure, on vent COPD exac S/p robotic surgery Anxiety S/p Exp lap PLAN: Cont vent support,ACV, Fi02 40% aerosol nebs Nebuliser rx qid and prn Abx per ID Cefepime,Levaquin,Flagyl,Micafungin and vanco Stable off pressors Robbie Renteria MD Sep 02, 2016 15:07
[2016-09-02] MEDS: metroNIDAZOLE 500 MG TAB PO SCH (17:01)
[2016-09-02] MEDS: PIPERACIL-TAZO 2.25 GM PREMIX 50 ML IV SCH (17:40)
--- NOTE | 2016-09-02 17:59 | HHI.CCPN ---
Subjective Remarks/Hospital Course 08/25: Patient is a 58-year-old male with past medical history significant COPD who, on 08/18/16, underwent Laparoscopic robotic extensive lysis of adhesions, low anterior resection and small bowel resection. Apparently he was brought in by Dr. Moffett for Diverticulitis. Patient has a history of hypertension, COPD, and continues to smoke one pack of cigarettes a day. Postoperatively patient became progressively short of breath. Pulmonary was consulted on 08/21/16 as the patient was becoming more hypoxemic requiring BiPAP. CT of the chest PE protocol did not show any pulmonary embolism. Patient was placed on breathing treatments and IV Solu-Medrol 40 mg every [address] Renteria. Today a.m. patient was on 100% nonrebreather. Patient was diagnosed with an anastomotic leak today and was taken back to the OR by Dr. Moffett. He underwent exploratory laparotomy, I&D and loop ileostomy today. Postop patient remained hypoxemic requiring 70% oxygen, and hence was left intubated and critical care medicine was consulted. Dr. Arce evaluated the patient in ICU. He remained hypoxemic, FiO2 70%. Chest x-ray shows bibasilar mild infiltrates. On sedation lightening patient became very hypertensive, not following commands probably secondary to residual NM blockade received while being transported to ICU. Patient on receiving vancomycin Levaquin and Flagyl per Dr. Moffett. Dr. Arce added cefepime to cover for Pseudomonas. Holding Solu-Medrol due to anastomotic leak. 08/26: Remains sedated, orally intubated on mechanical ventilation. Went into anuric renal failure yesterday which did not respond to fluid boluses and diuretics hence was started on hemodialysis after placement of right IJ Vas- Cath. Currently sedated, arousable, remains orally intubated on mechanical ventilation. Blood pressure borderline last evening following dialysis for which she was started on low-dose vasopressin 0.03 units per minute and Levophed which is currently at 1 jose per minute. Started on TPN last night following which he has been hyperglycemic. 08/27: Sedated, arousable, orally intubated on mechanical ventilation. Spiking fevers overnight. Off Levophed, transiently off vasopressin. Remains on TPN. 08/28: Remains sedated, arousable, orally intubated on mechanical ventilation. On low-dose vasopressin. TPN continues. Made about 500 cc of urine in the last 24 hours. 08/29: In sedated, arousable, orally intubated on mechanical ventilation. Remains on TPN. Dirty drainage from left-sided SERGEI drain noted overnight. Dr. Moffett obtaining CT abdomen pelvis with oral contrast and ID consulted. 08/30: CURRENT TEMPERATURE 99. Status post 4 L hemodialysis today. No current change in therapy. White blood cell count remained stable. Off vasopressors. Arousable to voice. Versed has been discontinued. We'll attempt CPAP trials again today. 08/31: MAXIMUM TEMPERATURE 100.4. Currently 100.1. Currently resting in bed in no acute distress. Continues with scant drainage from bilateral JPs. We'll attempt CPAP trial again today. Positive stool from ostomy bag 09/01: Tmax 99.8. Currently 99.3. Placement of the new right IJ vas catheter today. Plan for IR to possibly drain right lower quadrant fluid collection. Arousable and moves all 4 extremity spontaneously. Subjective 09/02: Currently afebrile. Noted placement of iron drain with accordion drain. Growing Pseudomonas. Lasted only 2 hours on CPAP trials today. Objective Vital Signs Date Time Temp Pulse Resp B/P Pulse Ox O2 Delivery O2 Flow Rate FiO2 09/02/16 14:00 95 09/02/16 13:20 98 50 09/02/16 12:00 98.5 22 161/77 09/02/16 07:00 Mechanical Ventilator 15.00 Intake and Output 09/01/16 09/01/16 09/01/16 07:59 15:59 23:59 Intake Total 839 ml 1358 ml 1137 ml Output Total 250 ml 4775 ml 280 ml Balance 589 ml -3417 ml 857 ml Result Diagram: 09/02/16 0345 09/02/16 0345 Other Results Last Impressions Chest X-Ray 09/01/16 0626 Signed Impressions: Service Date/Time: Thursday, September 01, 2016 06:39 - CONCLUSION: 1. Right internal jugular catheter tip in good position. No evidence of pneumothorax. 2. Persistent bilateral lower lung infiltrates, left greater than right. Evelio Boyd MD Retroperitoneal Abscess Drainage 09/01/16 0600 Signed Impressions: Service Date/Time: Thursday, September 01, 2016 13:05 - CONCLUSION: Uncomplicated CT guided drainage of a right lower quadrant fluid collection. Approximately 75 cc of fecal-like brown material was aspirated. The air and fluid collection may communicate with the inferior aspect of the midline wound on the anterior abdominal wall. Claude Carrasco MD Abdomen/Pelvis CT 08/29/16 0000 Signed Impressions: Service Date/Time: Monday, August 29, 2016 17:12 - CONCLUSION: Post surgical changes following partial colon resection. Persistent pockets of fluid. Largest is located in the pelvis and contains an air-fluid level. Abscess formation cannot be excluded. Small bowel ileus Bibasilar airspace disease and pleural effusions Aakash Iqbal MD Abdomen X-Ray 08/24/16 0000 Signed Impressions: Service Date/Time: August 07:44 - CONCLUSION: Gaseous distention of multiple bowel loops possible ileus. Jony Miller MD Enema w/Water Soluble 08/23/16 0000 Signed Impressions: Service Date/Time: Tuesday, August 23, 2016 10:12 - CONCLUSION: Anastomosis appears patent without extravasation. Aditya Rocha MD FACR CT Angiography 08/21/16 0000 Signed Impressions: Service Date/Time: Sunday, August 21, 2016 14:05 - CONCLUSION: 1. There is no evidence for central pulmonary emboli. 2. Minimal subcutaneous air as well as free intraperitoneal air. Aditya Rocha MD [facility] Last Impressions Chest X-Ray 09/01/16 0626 Signed Impressions: Service Date/Time: Thursday, September 01, 2016 06:39 - CONCLUSION: 1. Right internal jugular catheter tip in good position. No evidence of pneumothorax. 2. Persistent bilateral lower lung infiltrates, left greater than right. Evelio Boyd MD Abdomen/Pelvis CT 08/29/16 0000 Signed Impressions: Service Date/Time: Monday, August 29, 2016 17:12 - CONCLUSION: Post surgical changes following partial colon resection. Persistent pockets of fluid. Largest is located in the pelvis and contains an air-fluid level. Abscess formation cannot be excluded. Small bowel ileus Bibasilar airspace disease and pleural effusions Aakash Iqbal MD Abdomen X-Ray 08/24/16 0000 Signed Impressions: Service Date/Time: August 07:44 - CONCLUSION: Gaseous distention of multiple bowel loops possible ileus. Jony Miller MD Enema w/Water Soluble 08/23/16 0000 Signed Impressions: Service Date/Time: Tuesday, August 23, 2016 10:12 - CONCLUSION: Anastomosis appears patent without extravasation. Aditya Rocha MD FACR CT Angiography 08/21/16 0000 Signed Impressions: Service Date/Time: Sunday, August 21, 2016 14:05 - CONCLUSION: 1. There is no evidence for central pulmonary emboli. 2. Minimal subcutaneous air as well as free intraperitoneal air. Aditya Rocha MD FACR Objective Remarks GENERAL: 56-year-old obese well-developed male who is orotracheally intubated in no acute distress SKIN: Erythema of the skin on right lower abdomen HEAD: Atraumatic. Normocephalic. EYES: Pupils equal round and reactive about 3 mm bilaterally. ENT: Orotracheally intubated NECK: Trachea midline. No JVD or lymphadenopathy. Right IJ hemodialysis catheter clean dry and intact. CARDIOVASCULAR: Tachycardic, RR. S1, S2. No S4. Without murmurs, gallops, or rubs. RESPIRATORY: Orally intubated on mechanical ventilation, air entry decreased bilaterally at bases with scattered rhonchi, no inspiratory or expiratory wheezing. GASTROINTESTINAL: Abdomen distended. Midline incision clean and intact. Bilateral SERGEI drains at the flanks with sero-sanguinous output. Chordae and drain in right lower quadrant with dark output. Ileostomy noted. Erythema of the skin lateral to ileostomy. MUSCULOSKELETAL: Extremities with 1+ bilateral upper and lower extremity edema NEUROLOGICAL: Sedated, arousable, opens eyes to voice but not following commands currently. Vascular Central Line Catheter: Yes Assessment to: Continue Date of Insertion: Aug 31, 2016 Line: Central Venous Catheter Side: Right Location: Subclavian A/P Assessment and Plan NEURO/PSYCH: History of anxiety -On Sedation and pain control with Versed as needed and fentanyl at 175 jose grams an hour infusions for analgesia. Goal of RASS -2 -Daily sedation vacation, follow neuro status. - Acetaminophen for fever RESP: Acute hypoxemic respiratory failure COPD exacerbation Probable healthcare associated pneumonia -Continue ACV 22/600 0.75/8/50 Ventilator bundle -Albuterol nebs every 4 hours scheduled and when necessary, Symbicort 2 puffs every 12 was discontinued while in ventilator. Continue Pulmicort twice a day -Broad-spectrum antibiotics as below -Continue daily C Pap trials. Dr. Renteria/Pulmonary following CV: Hypotension secondary to septic shock resolved History of hypertension -Received multiple fluid boluses on 08/25. IV fluids discontinued subsequently in view of anuria necessitating hemodialysis. On TPN at 65 cc an hour Off all vasopressors -Attempt negative fluid balance with hemodialysis. GI/ Nutrition: Anastomotic leak status post exploratory laparotomy, I&D, loop ileostomy 08/24/16 s/p Laparoscopic robotic extensive ANNA MARIE, robotic LAR and small bowel resection Laparoscopic robotic ANNA MARIE, robotic LAR and small bowel resection with anastomotic leak History of diverticulitis -Status post exploratory laparotomy, I&D, loop ileostomy 08/24/16 -Postoperative management per Dr. Moffett. Broad-spectrum antibiotics as below. Left SERGEI drain 5 cc. Right SERGEI 25 cc. positive ostomy output CT abdomen pelvis with oral contrast 08/29 reveal small bowel ileus. Serous fluid collection likely postoperative changes. - On Reglan to improve GI motility -Started on TPN 08/25 at 65 cc an hour with lipids daily Protonix for GI prophylaxis According drain to right lower quadrant 09/01 by IR. -160 Renal/: Acute kidney injury History BPH Status post bilateral ureteral stents placed by Dr. Fraser 08/18 -Monitor renal function closely. Mg catheter. -IV fluids discontinued in view of anuric renal failure and hyperkalemia necessitating hemodialysis. Nephrology consulted and following. -Attempt maintaining even to slightly negative fluid balance if blood pressure permits. New right IJ hemodialysis catheter placed 09/01 ID: Anastomotic leak Sepsis Probable HCAP -IV vancomycin, Flagyl and Levaquin per Dr. Moffett. Levaquin discontinued . Zosyn started 09/02. Flagyl micafungin per ID added. Left-sided SERGEI drain with bloody output. Pertinent culture 09/01: Abdominal wound - Pseudomonas 08/31 - line culture Pseudomonas/coag negative staph 08/31 - blood cultures 2 -no growth 08/31 - sputum - pending 08/29 - wound - Pseudomonas, group D enterococcus, C. albicans and yeast 08/25 blood cultures - no growth 08/25 sputum - Serratia/Klebsiella/Pseudomonas 08/24 - wound - no growth HEME: Leukocytosis Normocytic anemia -Monitor CBC, CMP, coags ENDO: -Sliding-scale insulin for glycemic control. 30 units sliding scale past 24 hours. Levemir 30 units twice a day PROPH: -Bilateral lower extremity SCDs. Heparin subcutaneous for DVT prophylaxis.. Protonix for GI prophylaxis LINES: -Left subclavian central line placed in the OR 08/24 - 08/31. Right subclavian central line placed 08/31 - RIJ dialysis catheter 08/25 -08/31. New right IJ hemodialysis catheter 09/01 Critical Care: The total critical care time was 35 minutes. Time to perform other separately billable procedures was not included in the critical care time. Connor Lebron MD Sep 02, 2016 17:58
[2016-09-02] MEDS: FAT EMULSION 20% INJ 250 ML (@10 mls/hr) IV-CENTRAL SCH (22:13)
[2016-09-03] VITALS (21 sets, daily range): BP systolic 116–206; BP diastolic 57–91; PULSE 96–122; RESP 22–31; TEMP 97.9–98.8; O2SAT 95–98
[2016-09-03] MEDS: RESP: ALBUTEROL 2.5 MG/3 ML NEB (SCH) INH ×6 (03:51→23:50)
[2016-09-03] MEDS: PIPERACIL-TAZO 2.25 GM PREMIX 50 ML IV SCH ×2 (04:00→15:57)
[2016-09-03 04:41] LABS: AUTOMATED NEUTROPHIL # 22.5 TH/MM3 (1.8-7.7); BASOPHIL # 0.1 TH/MM3 (0-0.2); BASOPHIL % 0.4 % (0.0-2.0); EOSINOPHIL # 0.2 TH/MM3 (0-0.4); EOSINOPHIL % 0.8 % (0.0-4.0); HEMATOCRIT 24.2 % (39.0-51.0); LYMPHOCYTE # 1.3 TH/MM3 (1.0-4.8); MEAN CELL VOLUME 84.9 FL (80.0-100.0); MEAN CORPUSCULAR HEMOGLOBIN 27.8 PG (27.0-34.0); MEAN CORPUSCULAR HGB CONC 32.7 % (32.0-36.0); MONO % 8.3 % (0.0-8.0); NEUT % 85.5 % (16.0-70.0); PLATELET COUNT 277 TH/MM3 (150-450); RED BLOOD COUNT 2.86 MIL/MM3 (4.50-5.90); WHITE BLOOD COUNT 26.3 TH/MM3 (4.0-11.0)
[2016-09-03 04:48] LABS: HEMO FLAGS AUTO DIFF
[2016-09-03 05:29] LABS: ALKALINE PHOSPHATASE 147 U/L (45-117); ALT (GPT) 6 U/L (12-78); ANION GAP 12 MEQ/L (5-15); AST (GOT) 27 U/L (15-37); BICARBONATE 24.2 MEQ/L (21.0-32.0); BLOOD UREA NITROGEN 103 MG/DL (7-18); CHLORIDE 100 MEQ/L (98-107); GLOMERULAR FILTRATION RATE 9 ML/MIN (>89); MAGNESIUM 2.4 MG/DL (1.5-2.5); POTASSIUM 5.1 MEQ/L (3.5-5.1); SODIUM (NA) 136 MEQ/L (136-145); TOTAL BILIRUBIN ADULT 1.1 MG/DL (0.2-1.0)
--- NOTE | 2016-09-03 05:47 | RADRPT ---
EXAM DATE/TIME: 09/03/2016 04:03 [facility] COMPARISON: CHEST SINGLE AP, September 01, 2016, 6:39. INDICATIONS : Shortness of breath. MEDICAL HISTORY : Chronic obstructive pulmonary disease. SURGICAL HISTORY : None. ENCOUNTER: Subsequent ACUITY: 2 weeks PAIN SCORE: Non-responsive. LOCATION: Bilateral chest FINDINGS: Endotracheal tube tip well above the lj. Gastric tube traverse the [id number]. Right intradu ral jugular and right subclavian catheter tips stable. There is persisting consolidation in the left lower lobe and patchy infiltrates in the right lower lung, similar in appearance from prior exam. CONCLUSION: Stable left lower lobe consolidation and right lower lung infiltrates. Evelio Boyd MD on September 03, 2016 at 5:44 Board Certified Radiologist. This report was verified electronically.
[2016-09-03 05:48] LABS: BANDS 9 % (0-6); METAMYELOCYTES 2 % (0-1); MYELOCYTES 9 % (0-0); NEUTROPHIL # MANUAL DIFF 22.9 TH/MM3 (1.8-7.7); PLATELET ESTIMATE SMEAR NORMAL (NORMAL); PLATELET MORPHOLOGY NORMAL (NORMAL); POLYS (SEG NEUTROPHILS) 67 % (16-70); STOMATOCYTES 1+ (NORMAL); TARGET CELLS 1+ (NORMAL); WBC DIFF SAMPLE 100
[2016-09-03 05:49] LABS: SCAN/DIFF FINAL DIFF MANUAL
[2016-09-03] MEDS: RESP: BUDESONIDE 0.5 MG/2 ML NEB NEB SCH ×2 (07:25→20:03)
--- NOTE | 2016-09-03 08:24 | HHI.CCPN ---
Subjective Remarks/Hospital Course 08/25: Patient is a 58-year-old male with past medical history significant COPD who, on 08/18/16, underwent Laparoscopic robotic extensive lysis of adhesions, low anterior resection and small bowel resection. Apparently he was brought in by Dr. Moffett for Diverticulitis. Patient has a history of hypertension, COPD, and continues to smoke one pack of cigarettes a day. Postoperatively patient became progressively short of breath. Pulmonary was consulted on 08/21/16 as the patient was becoming more hypoxemic requiring BiPAP. CT of the chest PE protocol did not show any pulmonary embolism. Patient was placed on breathing treatments and IV Solu-Medrol 40 mg every [address] Renteria. Today a.m. patient was on 100% nonrebreather. Patient was diagnosed with an anastomotic leak today and was taken back to the OR by Dr. Moffett. He underwent exploratory laparotomy, I&D and loop ileostomy today. Postop patient remained hypoxemic requiring 70% oxygen, and hence was left intubated and critical care medicine was consulted. Dr. Arce evaluated the patient in ICU. He remained hypoxemic, FiO2 70%. Chest x-ray shows bibasilar mild infiltrates. On sedation lightening patient became very hypertensive, not following commands probably secondary to residual NM blockade received while being transported to ICU. Patient on receiving vancomycin Levaquin and Flagyl per Dr. Moffett. Dr. Arce added cefepime to cover for Pseudomonas. Holding Solu-Medrol due to anastomotic leak. 08/26: Remains sedated, orally intubated on mechanical ventilation. Went into anuric renal failure yesterday which did not respond to fluid boluses and diuretics hence was started on hemodialysis after placement of right IJ Vas- Cath. Currently sedated, arousable, remains orally intubated on mechanical ventilation. Blood pressure borderline last evening following dialysis for which she was started on low-dose vasopressin 0.03 units per minute and Levophed which is currently at 1 jose per minute. Started on TPN last night following which he has been hyperglycemic. 08/27: Sedated, arousable, orally intubated on mechanical ventilation. Spiking fevers overnight. Off Levophed, transiently off vasopressin. Remains on TPN. 08/28: Remains sedated, arousable, orally intubated on mechanical ventilation. On low-dose vasopressin. TPN continues. Made about 500 cc of urine in the last 24 hours. 08/29: In sedated, arousable, orally intubated on mechanical ventilation. Remains on TPN. Dirty drainage from left-sided SERGEI drain noted overnight. Dr. Moffett obtaining CT abdomen pelvis with oral contrast and ID consulted. 08/30: CURRENT TEMPERATURE 99. Status post 4 L hemodialysis today. No current change in therapy. White blood cell count remained stable. Off vasopressors. Arousable to voice. Versed has been discontinued. We'll attempt CPAP trials again today. 08/31: MAXIMUM TEMPERATURE 100.4. Currently 100.1. Currently resting in bed in no acute distress. Continues with scant drainage from bilateral JPs. We'll attempt CPAP trial again today. Positive stool from ostomy bag 09/01: Tmax 99.8. Currently 99.3. Placement of the new right IJ vas catheter today. Plan for IR to possibly drain right lower quadrant fluid collection. Arousable and moves all 4 extremity spontaneously. Subjective 09/02: Currently afebrile. Noted placement of iron drain with accordion drain. Growing Pseudomonas. Lasted only 2 hours on CPAP trials today. 09/03: Tolerated SBT for only 30 mins and required PS 20. Not ready to extubate. Objective Vital Signs Date Time Temp Pulse Resp B/P Pulse Ox O2 Delivery O2 Flow Rate FiO2 09/03/16 06:00 110 09/03/16 04:10 96 40 09/03/16 04:00 98.8 22 184/84 09/02/16 20:00 Mechanical Ventilator 09/02/16 07:00 15.00 Intake and Output 09/02/16 09/02/16 09/03/16 08:00 16:00 00:00 Intake Total 846 ml 1129 ml 936 ml Output Total 165 ml 380 ml 225 ml Balance 681 ml 749 ml 711 ml Result Diagram: 09/03/16 0411 09/03/16 0411 Other Results Microbiology Date/Time Procedure Status Source Growth 08/31/16 11:47 Urine Culture - Final Complete Urine Catheterized Urine NO GROWTH IN 48 HOURS. 08/31/16 15:40 Wound Culture - Final Complete Catheter Tip Central Venous Line Pseudomonas Species Staph Sp Coagulase Negative 08/31/16 15:40 Fungal Culture - Final Complete Catheter Tip Central Venous Line Imaging Last Impressions Chest X-Ray 09/01/16 0656 Signed Impressions: Service Date/Time: Thursday, September 01, 2016 06:39 - CONCLUSION: 1. Right internal jugular catheter tip in good position. No evidence of pneumothorax. 2. Persistent bilateral lower lung infiltrates, left greater than right. Evelio Boyd MD Abdomen/Pelvis CT 08/29/16 0000 Signed Impressions: Service Date/Time: Monday, August 29, 2016 17:12 - CONCLUSION: Post surgical changes following partial colon resection. Persistent pockets of fluid. Largest is located in the pelvis and contains an air-fluid level. Abscess formation cannot be excluded. Small bowel ileus Bibasilar airspace disease and pleural effusions Aakash Iqbal MD Abdomen X-Ray 08/24/16 0000 Signed Impressions: Service Date/Time: August 07:44 - CONCLUSION: Gaseous distention of multiple bowel loops possible ileus. Jony Miller MD Enema w/Water Soluble 08/23/16 0000 Signed Impressions: Service Date/Time: Tuesday, August 23, 2016 10:12 - CONCLUSION: Anastomosis appears patent without extravasation. Aditya Rocha MD FACR CT Angiography 08/21/16 0000 Signed Impressions: Service Date/Time: Sunday, August 21, 2016 14:05 - CONCLUSION: 1. There is no evidence for central pulmonary emboli. 2. Minimal subcutaneous air as well as free intraperitoneal air. Aditya Rocha MD FACR Objective Remarks GENERAL: 56-year-old obese well-developed male who is orotracheally intubated in no acute distress SKIN: Erythema of the skin on right lower abdomen HEAD: Atraumatic. Normocephalic. EYES: Pupils equal round and reactive about 3 mm bilaterally. ENT: Orotracheally intubated NECK: Trachea midline. No JVD or lymphadenopathy. Right IJ hemodialysis catheter clean dry and intact. CARDIOVASCULAR: Tachycardic, RR. S1, S2. No S4. Without murmurs, gallops, or rubs. RESPIRATORY: Orally intubated on mechanical ventilation, air entry decreased bilaterally at bases with scattered rhonchi, no inspiratory or expiratory wheezing. GASTROINTESTINAL: Abdomen distended. Midline incision clean and intact. Bilateral SERGEI drains at the flanks with sero-sanguinous output. Chordae and drain in right lower quadrant with dark output. Ileostomy noted. Erythema of the skin lateral to ileostomy. MUSCULOSKELETAL: Extremities with 1+ bilateral upper and lower extremity edema NEUROLOGICAL: Sedated, arousable, opens eyes to voice but not following commands currently. Date of Insertion: Aug 31, 2016 Line: Central Venous Catheter Side: Right Location: Subclavian A/P Assessment and Plan NEURO/PSYCH: History of anxiety -On Sedation and pain control with Versed as needed and fentanyl at 175 jose grams an hour infusions for analgesia. Goal of RASS -2 -Daily sedation vacation, follow neuro status. - Acetaminophen for fever RESP: Acute hypoxemic respiratory failure COPD exacerbation Probable healthcare associated pneumonia -Continue ACV 22/600 0.75/8/50 Ventilator bundle -Albuterol nebs every 4 hours scheduled and when necessary, Symbicort 2 puffs every 12 was discontinued while in ventilator. Continue Pulmicort twice a day -Broad-spectrum antibiotics as below -Continue daily C Pap trials. Dr. Renteria/Pulmonary following CV: Hypotension secondary to septic shock resolved History of hypertension -Received multiple fluid boluses on 08/25. IV fluids discontinued subsequently in view of anuria necessitating hemodialysis. On TPN at 65 cc an hour Off all vasopressors -Attempt negative fluid balance with hemodialysis. GI/ Nutrition: Anastomotic leak status post exploratory laparotomy, I&D, loop ileostomy 08/24/16 s/p Laparoscopic robotic extensive ANNA MARIE, robotic LAR and small bowel resection Laparoscopic robotic ANNA MARIE, robotic LAR and small bowel resection with anastomotic leak History of diverticulitis -Status post exploratory laparotomy, I&D, loop ileostomy 08/24/16 -Postoperative management per Dr. Moffett. Broad-spectrum antibiotics as below. Left SERGEI drain 5 cc. Right SERGEI 25 cc. positive ostomy output CT abdomen pelvis with oral contrast 08/29 reveal small bowel ileus. Serous fluid collection likely postoperative changes. - On Reglan to improve GI motility -Started on TPN 08/25 at 65 cc an hour with lipids daily Protonix for GI prophylaxis According drain to right lower quadrant 09/01 by IR. -160 Renal/: Acute kidney injury History BPH Status post bilateral ureteral stents placed by Dr. Fraser 08/18 -Monitor renal function closely. Mg catheter. -IV fluids discontinued in view of anuric renal failure and hyperkalemia necessitating hemodialysis. Nephrology consulted and following. -Attempt maintaining even to slightly negative fluid balance if blood pressure permits. New right IJ hemodialysis catheter placed 09/01 ID: Anastomotic leak Sepsis Probable HCAP -IV vancomycin, Flagyl and Levaquin per Dr. Moffett. Levaquin discontinued . Zosyn started 09/02. Flagyl micafungin per ID added. Left-sided SERGEI drain with bloody output. Pertinent culture 09/01: Abdominal wound - Pseudomonas 08/31 - line culture Pseudomonas/coag negative staph 08/31 - blood cultures 2 -no growth 08/31 - sputum - pending 08/29 - wound - Pseudomonas, group D enterococcus, C. albicans and yeast 08/25 blood cultures - no growth 08/25 sputum - Serratia/Klebsiella/Pseudomonas 08/24 - wound - no growth HEME: Leukocytosis Normocytic anemia -Monitor CBC, CMP, coags ENDO: -Sliding-scale insulin for glycemic control. 30 units sliding scale past 24 hours. Levemir 30 units twice a day PROPH: -Bilateral lower extremity SCDs. Heparin subcutaneous for DVT prophylaxis.. Protonix for GI prophylaxis LINES: -Left subclavian central line placed in the OR 08/24 - 08/31. Right subclavian central line placed 08/31 - RIJ dialysis catheter 08/25 -08/31. New right IJ hemodialysis catheter 09/01 Overall impression: He remains critically ill with several organs dysfunctional and ventilator dependent. Critical Care 37 mins Mando Brown MD Sep 03, 2016 08:24
[2016-09-03] MEDS: RESP: ALBUTEROL 2.5 MG/IPRATROPIUM 0.5 MG NEB (PRN) NEB ×3 (08:29→23:49)
[2016-09-03] MEDS: CEFEPIME INJ 2,000 MG in SODIUM CHLORIDE 0.9% INJ 100 ML IV SCH (08:37)
[2016-09-03] MEDS: HEPARIN SODIUM - SQ 10,000 UNITS/ML VIAL SQ SCH ×2 (08:37→20:29)
[2016-09-03] MEDS: MUPIROCIN 2% OINT 1 APPLIC/GM SYR EACH NARE SCH ×2 (08:37→20:29)
[2016-09-03] MEDS: PANTOPRAZOLE SODIUM 40 MG VIAL IVP SCH (08:37)
[2016-09-03] MEDS: MICAFUNGIN INJ 100 MG in SODIUM CHLORIDE 0.9% INJ 100 ML IV SCH (09:24)
[2016-09-03] MEDS: INSULIN DETEMIR 100 UNITS/ML VIAL SQ SCH ×2 (09:25→20:30)
[2016-09-03] MEDS: SODIUM CHLORIDE 0.9% FLUSH 5 ML FLUSH IVF SCH ×2 (09:26→20:29)
[2016-09-03] MEDS: INSULIN ASPART SUPPLEMENTAL SCALE SQ SCH ×6 (11:24→20:29)
--- NOTE | 2016-09-03 11:54 | HHI.PR ---
Subjective Remarks WBC remains elevated. Remains intubated,off pressors. Wound vac in place. Objective Vital Signs Date Time Temp Pulse Resp B/P Pulse Ox O2 Delivery O2 Flow Rate FiO2 09/03/16 08:30 97 100 09/03/16 06:00 110 09/03/16 04:10 96 40 09/03/16 04:00 98.8 114 22 184/84 95 09/03/16 04:00 40 09/03/16 04:00 110 09/03/16 02:00 110 09/03/16 01:25 96 40 09/03/16 00:00 110 09/03/16 00:00 98.8 117 24 175/79 95 09/03/16 00:00 40 09/02/16 22:00 110 09/02/16 21:49 97 40 09/02/16 20:00 40 09/02/16 20:00 98.6 110 27 159/74 96 09/02/16 20:00 Mechanical Ventilator 09/02/16 20:00 110 09/02/16 20:00 09/02/16 19:50 97 40 09/02/16 18:08 95 40 09/02/16 18:00 102 09/02/16 16:00 102 09/02/16 16:00 98.3 105 22 161/75 95 09/02/16 16:00 09/02/16 16:00 50 09/02/16 14:00 95 09/02/16 13:20 98 50 09/02/16 12:00 112 09/02/16 12:00 98.5 112 22 161/77 95 09/02/16 12:00 09/02/16 12:00 50 I/O 09/02/16 09/02/16 09/02/16 09/03/16 09/03/16 09/03/16 07:00 15:00 23:00 07:00 15:00 23:00 Intake Total 846 ml 1129 ml 936 ml 862 ml Output Total 165 ml 380 ml 225 ml 185 ml Balance 681 ml 749 ml 711 ml 677 ml Intake Oral 0 ml IV Total 320 ml 549 ml 320 ml 301 ml TPN/PPN 456 ml 503 ml 534 ml 486 ml Lipid 70 ml 77 ml 82 ml 75 ml Output Urine Total 50 ml 75 ml 100 ml 50 ml Stool Total 50 ml 100 ml 50 ml 100 ml Gastric Drainage Total 0 ml 125 ml 0 ml 0 ml Drainage Total 65 ml 80 ml 75 ml 35 ml Result Diagram: 09/03/1641009/03/16410 Objective Remarks VS-S Abd: obese,distended,stooling from Ileostomy. Wound vac in place. No skin cellulitis. New drain with light brown drainage. LLQ drain more serous,less brown. RUQ drain remains sero-sanguinous. Assessment and Plan Assessment and Plan Stable Resp failure. ARF.Wound infection with fascial separation. Clean with wound vac in place. All drains in place Hopefully WBC will respond to further drainage of large collection RLQ Claude Flores MD Sep 03, 2016 11:54
[2016-09-03] MEDS: metroNIDAZOLE 500 MG TAB PO SCH ×4 (12:00→17:30)
[2016-09-03] MEDS: CHLORHEXIDINE 0.12% (ORAL KIT) 15 ML CUP MT SCH ×2 (12:21→20:10)
--- NOTE | 2016-09-03 12:21 | HHI.IDPN ---
Note Infectious Disease Note Notes reviewed. Patient failed CPAP trial. Noted to have a moderate amount of ETT secretions. Patient is on the vent. Sedated. Opens eyes. Temp lower. WBC elevated. PAST MEDICAL HISTORY 1. Diverticulitis. 2. COPD. 3. Hypertension. 4. Anxiety disorder. 5. BPH. 6. History of tonsillectomy. ALLERGIES No known drug allergies. ANTIBIOTICS 1. Cefepime. 2. Levaquin. 3. Vancomycin. 4. Micafungin. 5. Metronidazole. SOCIAL HISTORY The patient is a smoker of one pack of cigarettes a day. No alcohol. No illicit drugs. OBJECTIVE: Vital Signs Date Time Temp Pulse Resp B/P Pulse Ox O2 Delivery O2 Flow Rate FiO2 09/03/16 12:00 112 09/03/16 12:00 40 09/03/16 12:00 98.6 112 22 168/84 98 09/03/16 10:00 110 09/03/16 08:30 97 100 09/03/16 08:00 40 09/03/16 08:00 98.8 114 22 184/84 95 09/03/16 08:00 110 09/03/16 07:00 96 Mechanical Ventilator 40 09/03/16 06:00 110 09/03/16 04:10 96 40 09/03/16 04:00 98.8 114 22 184/84 95 09/03/16 04:00 40 09/03/16 04:00 110 09/03/16 02:00 110 09/03/16 01:25 96 40 09/03/16 00:00 110 09/03/16 00:00 98.8 117 24 175/79 95 09/03/16 00:00 40 09/02/16 22:00 110 09/02/16 21:49 97 40 09/02/16 20:00 40 09/02/16 20:00 98.6 110 27 159/74 96 09/02/16 20:00 Mechanical Ventilator 09/02/16 20:00 110 09/02/16 20:00 09/02/16 19:50 97 40 09/02/16 18:08 95 40 09/02/16 18:00 102 09/02/16 16:00 102 09/02/16 16:00 98.3 105 22 161/75 95 09/02/16 16:00 09/02/16 16:00 50 09/02/16 14:00 95 09/02/16 13:20 98 50 09/02/16 09/02/16 09/03/16 15:00 23:00 07:00 Intake Total 1129 ml 936 ml 862 ml Output Total 380 ml 225 ml 185 ml Balance 749 ml 711 ml 677 ml Intake Oral 0 ml IV Total 549 ml 320 ml 301 ml TPN/PPN 503 ml 534 ml 486 ml Lipid 77 ml 82 ml 75 ml Output Urine Total 75 ml 100 ml 50 ml Stool Total 100 ml 50 ml 100 ml Gastric Drainage Total 125 ml 0 ml 0 ml Drainage Total 80 ml 75 ml 35 ml Laboratory Tests Test 09/02/16 09/03/16 03:45 04:11 White Blood Count 24.3 TH/MM3 26.3 TH/MM3 Red Blood Count 2.68 MIL/MM3 2.86 MIL/MM3 Hemoglobin 7.5 GM/DL 7.9 GM/DL Hematocrit 22.7 % 24.2 % Mean Corpuscular Volume 84.6 FL 84.9 FL Mean Corpuscular Hemoglobin 28.0 PG 27.8 PG Mean Corpuscular Hemoglobin 33.1 % 32.7 % Concent Red Cell Distribution Width 14.8 % 15.0 % Platelet Count 260 TH/MM3 277 TH/MM3 Mean Platelet Volume 8.7 FL 9.1 FL Neutrophils (%) (Auto) 86.4 % 85.5 % Lymphocytes (%) (Auto) 4.3 % 5.0 % Monocytes (%) (Auto) 8.5 % 8.3 % Eosinophils (%) (Auto) 0.6 % 0.8 % Basophils (%) (Auto) 0.2 % 0.4 % Neutrophils # (Auto) 21.0 TH/MM3 22.5 TH/MM3 Lymphocytes # (Auto) 1.0 TH/MM3 1.3 TH/MM3 Monocytes # (Auto) 2.1 TH/MM3 2.2 TH/MM3 Eosinophils # (Auto) 0.1 TH/MM3 0.2 TH/MM3 Basophils # (Auto) 0.1 TH/MM3 0.1 TH/MM3 CBC Comment AUTO DIFF AUTO DIFF Differential Total Cells 100 100 Counted Neutrophils % (Manual) 58 % 67 % Band Neutrophils % 16 % 9 % Lymphocytes % 4 % 6 % Monocytes % 5 % 7 % Eosinophils % 1 % Neutrophils # (Manual) 21.9 TH/MM3 22.9 TH/MM3 Metamyelocytes 7 % 2 % Myelocytes 9 % 9 % Differential Comment FINAL DIFF FINAL DIFF MANUAL MANUAL Platelet Estimate NORMAL NORMAL Platelet Morphology Comment NORMAL NORMAL Stomatocytes 1+ 1+ Target Cells 1+ Laboratory Tests Test 09/02/16 09/03/16 03:45 04:11 Sodium Level 137 MEQ/L 136 MEQ/L Potassium Level 4.5 MEQ/L 5.1 MEQ/L Chloride Level 101 MEQ/L 100 MEQ/L Carbon Dioxide Level 25.1 MEQ/L 24.2 MEQ/L Anion Gap 11 MEQ/L 12 MEQ/L Blood Urea Nitrogen 84 MG/DL 103 MG/DL Creatinine 5.53 MG/DL 6.68 MG/DL Estimat Glomerular Filtration 11 ML/MIN 9 ML/MIN Rate Random Glucose 216 MG/DL 212 MG/DL Calcium Level 8.6 MG/DL 8.5 MG/DL Phosphorus Level 3.5 MG/DL 5.5 MG/DL Magnesium Level 2.1 MG/DL 2.4 MG/DL Total Bilirubin 1.0 MG/DL 1.1 MG/DL Aspartate Amino Transf 27 U/L 27 U/L (AST/SGOT) Alanine Aminotransferase LESS THAN 6 U/L 6 U/L (ALT/SGPT) Alkaline Phosphatase 133 U/L 147 U/L Total Protein 6.2 GM/DL 6.4 GM/DL Albumin 1.9 GM/DL 1.7 GM/DL Microbiology Date/Time Procedure Status Source Growth 08/31/16 15:40 Wound Culture - Final Complete Catheter Tip Central Venous Line Pseudomonas Species Staph Sp Coagulase Negative 08/31/16 15:40 Fungal Culture - Final Complete Catheter Tip Central Venous Line 09/01/16 13:45 Gram Stain - Final Complete Abscess Abdomen 09/01/16 13:45 Wound Culture - Final Complete Pseudomonas Aeruginosa Enterococcus Faecalis Iram [place] PHYSICAL EXAMINATION GENERAL: Sedated on the ventilator. HEENT: The oropharynx is intubated. NECK: No adenopathy or swelling. LUNGS: Bilateral rhonchi same. HEART: Regular rate and rhythm. No audible murmurs, rubs or gallops. ABDOMEN: Distended. Diminished bowel sounds. Wound vac in place. EXTREMITIES: No clubbing or cyanosis. 1-2+ edema. Distal pulses 2+. SKIN: Warm and moist. No rash. NEUROLOGIC: Unable to fully assess. Appears to open eyes to commands. IMPRESSION 1. Sepsis. Pseudomonas on CVL culture after line removal. 2. Peritonitis. Post abdominal surgery/Bowel resection - enterococcus, pseudomonas and yeast. 3. Pneumonia due to gram-negative bacteria with sputum culture showing Serratia, Klebsiella and Pseudomonas. New culture has pseudomonas. 4. Leukocytosis secondary to infection. WBC remain elevated. 5. Acute renal failure. 6. Acute respiratory failure. RECOMMENDATIONS 1. Continue Cefepime. 2. Continue PIP/Tazobactam. 3. Continue vancomycin. 4. Continue micafungin. 5. Continue metronidazole. 6. Monitor white blood cell count. D/W RN. Tim Apodaca MD Sep 03, 2016 12:21
[2016-09-03] MEDS: cloNIDine HCL 0.1 MG TAB PO SCH ×2 (13:51→21:17)
[2016-09-03] MEDS: METOCLOPRAMIDE HCL 10 MG/2 ML VIAL IV PUSH SCH ×3 (13:52→20:30)
[2016-09-03] MEDS: amLODIPine BESYLATE 5 MG TAB PO SCH (13:55)
[2016-09-03] MEDS: hydrALAZINE HCL 20 MG/ML VIAL IV PUSH PRN (14:07)
--- NOTE | 2016-09-03 15:05 | HHI.NPPN ---
Subjective Renal Failure: Acute Additional Remarks Patient intubated, sedated Review of Systems General General Remarks unable to evaluate Objective Data Data 09/02/16 09/03/16 19:00 07:00 Intake Total 1129 ml 1798 ml Output Total 380 ml 410 ml Balance 749 ml 1388 ml Intake Oral 0 ml IV Total 549 ml 621 ml TPN/PPN 503 ml 1020 ml Lipid 77 ml 157 ml Output Urine Total 75 ml 150 ml Stool Total 100 ml 150 ml Gastric Drainage Total 125 ml 0 ml Drainage Total 80 ml 110 ml Vital Signs Date Time Temp Pulse Resp B/P Pulse Ox O2 Delivery O2 Flow Rate FiO2 09/03/16 13:21 95 40 09/03/16 12:00 112 09/03/16 12:00 40 09/03/16 12:00 98.6 112 22 168/84 98 09/03/16 10:00 110 09/03/16 08:30 97 100 09/03/16 08:00 40 09/03/16 08:00 98.8 114 22 184/84 95 09/03/16 08:00 110 09/03/16 07:00 96 Mechanical Ventilator 40 09/03/16 06:00 110 09/03/16 04:10 96 40 09/03/16 04:00 98.8 114 22 184/84 95 09/03/16 04:00 40 09/03/16 04:00 110 09/03/16 02:00 110 09/03/16 01:25 96 40 09/03/16 00:00 110 09/03/16 00:00 98.8 117 24 175/79 95 09/03/16 00:00 40 09/02/16 22:00 110 09/02/16 21:49 97 40 09/02/16 20:00 40 09/02/16 20:00 98.6 110 27 159/74 96 09/02/16 20:00 Mechanical Ventilator 09/02/16 20:00 110 09/02/16 20:00 09/02/16 19:50 97 40 09/02/16 18:08 95 40 09/02/16 18:00 102 09/02/16 16:00 102 09/02/16 16:00 98.3 105 22 161/75 95 09/02/16 16:00 09/02/16 16:00 50 -: 09/03/16 0411 09/03/16 0411 Tubes & Lines: Vas-Cath, Mg Tubes & Lines Comment TLC, Drip Comment fentanyl, TPN, lipids Physical Exam General Appearance: Well Developed, Well Nourished, No Acute Distress Throat Throat Exam: Oral Mucosa [place] & Moist Pulmonary Resp Exam: Breath Sounds Equal, No Distress, Crackles, Diminished Breath Sounds Cardiology CV Exam: Regular, Normal Sinus Rhythm Gastrointestinal/Abdomen GI Exam: Distended Musculoskeletal MS Exam: Joints Intact, Normal Tone Integumentary Skin Exam: Warm, Dry Extremeties Extremities Exam: Pedal Pulses Palpable, Moderate Edema Neurologic Neuro Exam: Unresponsive, Sedated VTE Prophylaxis Device: SCDs Assessment/Plan Discussed Condition With: Son Assessment Summary: VIRIDIANA/Acute Renal Failure, Acute Tubular Necrosis Problem List: (1) Acute renal failure Plan: in a pt with normal renal function at baseline oliguric renal failure, ATN from sepsis and renal hypoperfusion HD started 08/25; now on schedule 4.5L UF , plan next HD Sunday. UF as tolerated to assist with ventilation. Electrolytes stable avoid IVF; monitor fluid volume status, attempt negative balance monitor BP, pressors to maintain MAP although he has not been requiring pressors daily renal panel, await renal recovery (2) Diverticulitis Plan: s/p colon resection with complications surgery following, appreciate recommendations continue present antibiotics including vancomycin, flagyl, Levaquin, cefepime, micafungin ID following TPN infusing; he is NPO Problem Qualifiers (1) Acute renal failure: Qualified Code: N17.0 - Acute renal failure with tubular necrosis Dg Leung MD Sep 03, 2016 15:05
--- NOTE | 2016-09-03 15:14 | HHI.PR ---
Subjective Remarks YOAA male with robotic surgery,COPD exac Underwent exp lap,I&d and loop iliostomy placement Remains on vent Sedated Did't tolerate CPAP Back on ACV Objective Vital Signs Vital Signs Date Time Temp Pulse Resp B/P Pulse Ox O2 Delivery O2 Flow Rate FiO2 09/03/16 13:21 95 40 09/03/16 12:00 112 09/03/16 12:00 40 09/03/16 12:00 98.6 112 22 168/84 98 09/03/16 10:00 110 09/03/16 08:30 97 100 09/03/16 08:00 40 09/03/16 08:00 98.8 114 22 184/84 95 09/03/16 08:00 110 09/03/16 07:00 96 Mechanical Ventilator 40 09/03/16 06:00 110 09/03/16 04:10 96 40 09/03/16 04:00 98.8 114 22 184/84 95 09/03/16 04:00 40 09/03/16 04:00 110 09/03/16 02:00 110 09/03/16 01:25 96 40 09/03/16 00:00 110 09/03/16 00:00 98.8 117 24 175/79 95 09/03/16 00:00 40 09/02/16 22:00 110 09/02/16 21:49 97 40 09/02/16 20:00 40 09/02/16 20:00 98.6 110 27 159/74 96 09/02/16 20:00 Mechanical Ventilator 09/02/16 20:00 110 09/02/16 20:00 09/02/16 19:50 97 40 09/02/16 18:08 95 40 09/02/16 18:00 102 09/02/16 16:00 102 09/02/16 16:00 98.3 105 22 161/75 95 09/02/16 16:00 09/02/16 16:00 50 I/O 09/02/16 09/02/16 09/02/16 09/03/16 09/03/16 09/03/16 07:00 15:00 23:00 07:00 15:00 23:00 Intake Total 846 ml 1129 ml 936 ml 862 ml Output Total 165 ml 380 ml 225 ml 185 ml Balance 681 ml 749 ml 711 ml 677 ml Intake Oral 0 ml IV Total 320 ml 549 ml 320 ml 301 ml TPN/PPN 456 ml 503 ml 534 ml 486 ml Lipid 70 ml 77 ml 82 ml 75 ml Output Urine Total 50 ml 75 ml 100 ml 50 ml Stool Total 50 ml 100 ml 50 ml 100 ml Gastric Drainage Total 0 ml 125 ml 0 ml 0 ml Drainage Total 65 ml 80 ml 75 ml 35 ml Result Diagram: 09/03/1641009/03/16410 Objective Remarks GENERAL: WBWN obese male, on Vent , sedated SKIN: Warm and dry. HEAD: Normocephalic. EYES: No scleral icterus. No injection or drainage. NECK: Supple, trachea midline. No JVD or lymphadenopathy. CARDIOVASCULAR: Regular rate and rhythm without murmurs, gallops, or rubs. RESPIRATORY: Breath sounds equal bilaterally. No accessory muscle use. exp rhonchi GASTROINTESTINAL: Abdomen soft, non-tender, Abd distended MUSCULOSKELETAL: No cyanosis, or edema. BACK: Nontender without obvious deformity. No CVA tenderness. A/P Assessment and Plan Resp Failure, on vent COPD exac S/p robotic surgery Anxiety S/p Exp lap PLAN: Cont vent support,ACV, Fi02 40% aerosol nebs Nebuliser rx qid and prn Abx per ID Cefepime,Levaquin,Flagyl,Micafungin and vanco Fentanyl and Diprivan for sedation. Robbie Renteria MD Sep 03, 2016 15:14
[2016-09-03] MEDS: PROPOFOL 1000 MG/100 ML IV SCH ×3 (15:37→22:45)
[2016-09-03] MEDS: fentaNYL 2,500 MCG/NS 250 ML IV SCH (17:29)
[2016-09-03] MEDS: FAT EMULSION 20% INJ 250 ML (@10 mls/hr) IV-CENTRAL SCH (20:29)
[2016-09-03] MEDS: SODIUM CHLORIDE IV-CENTRAL SCH ×9 (21:14)
[2016-09-03] MEDS: [UNRECOGNIZED DRUG - OTHER] IV-CENTRAL SCH ×9 (21:14)
[2016-09-03] MEDS: SODIUM ACETATE IV-CENTRAL SCH ×9 (21:14)
[2016-09-04] VITALS (18 sets, daily range): BP systolic 95–141; BP diastolic 50–65; PULSE 98–111; RESP 22–28; TEMP 97.7–99.3; O2SAT 97–100
[2016-09-04] MEDS: metroNIDAZOLE 500 MG TAB PO SCH ×4 (00:44→17:05)
[2016-09-04] MEDS: INSULIN ASPART SUPPLEMENTAL SCALE SQ SCH ×6 (00:44→20:00)
[2016-09-04] MEDS: PROPOFOL 1000 MG/100 ML IV SCH ×3 (02:12→10:33)
[2016-09-04] MEDS: RESP: ALBUTEROL 2.5 MG/3 ML NEB (SCH) INH ×5 (03:24→21:00)
[2016-09-04] MEDS: PIPERACIL-TAZO 2.25 GM PREMIX 50 ML IV SCH ×2 (04:15→16:00)
[2016-09-04] MEDS: fentaNYL 2,500 MCG/NS 250 ML IV SCH (04:17)
[2016-09-04] MEDS: cloNIDine HCL 0.1 MG TAB PO SCH ×3 (05:46→22:00)
[2016-09-04] MEDS: METOCLOPRAMIDE HCL 10 MG/2 ML VIAL IV PUSH SCH ×3 (05:46→22:00)
[2016-09-04] MEDS: LORazepam 2 MG/ML VIAL IV PUSH PRN (06:22)
--- NOTE | 2016-09-04 07:20 | HHI.CCPN ---
Subjective Remarks/Hospital Course 08/25: Patient is a 58-year-old male with past medical history significant COPD who, on 08/18/16, underwent Laparoscopic robotic extensive lysis of adhesions, low anterior resection and small bowel resection. Apparently he was brought in by Dr. Moffett for Diverticulitis. Patient has a history of hypertension, COPD, and continues to smoke one pack of cigarettes a day. Postoperatively patient became progressively short of breath. Pulmonary was consulted on 08/21/16 as the patient was becoming more hypoxemic requiring BiPAP. CT of the chest PE protocol did not show any pulmonary embolism. Patient was placed on breathing treatments and IV Solu-Medrol 40 mg every [address] Renteria. Today a.m. patient was on 100% nonrebreather. Patient was diagnosed with an anastomotic leak today and was taken back to the OR by Dr. Moffett. He underwent exploratory laparotomy, I&D and loop ileostomy today. Postop patient remained hypoxemic requiring 70% oxygen, and hence was left intubated and critical care medicine was consulted. Dr. Arce evaluated the patient in ICU. He remained hypoxemic, FiO2 70%. Chest x-ray shows bibasilar mild infiltrates. On sedation lightening patient became very hypertensive, not following commands probably secondary to residual NM blockade received while being transported to ICU. Patient on receiving vancomycin Levaquin and Flagyl per Dr. Moffett. Dr. Arce added cefepime to cover for Pseudomonas. Holding Solu-Medrol due to anastomotic leak. 08/26: Remains sedated, orally intubated on mechanical ventilation. Went into anuric renal failure yesterday which did not respond to fluid boluses and diuretics hence was started on hemodialysis after placement of right IJ Vas- Cath. Currently sedated, arousable, remains orally intubated on mechanical ventilation. Blood pressure borderline last evening following dialysis for which she was started on low-dose vasopressin 0.03 units per minute and Levophed which is currently at 1 jose per minute. Started on TPN last night following which he has been hyperglycemic. 08/27: Sedated, arousable, orally intubated on mechanical ventilation. Spiking fevers overnight. Off Levophed, transiently off vasopressin. Remains on TPN. 08/28: Remains sedated, arousable, orally intubated on mechanical ventilation. On low-dose vasopressin. TPN continues. Made about 500 cc of urine in the last 24 hours. 08/29: In sedated, arousable, orally intubated on mechanical ventilation. Remains on TPN. Dirty drainage from left-sided SERGEI drain noted overnight. Dr. Moffett obtaining CT abdomen pelvis with oral contrast and ID consulted. 08/30: CURRENT TEMPERATURE 99. Status post 4 L hemodialysis today. No current change in therapy. White blood cell count remained stable. Off vasopressors. Arousable to voice. Versed has been discontinued. We'll attempt CPAP trials again today. 08/31: MAXIMUM TEMPERATURE 100.4. Currently 100.1. Currently resting in bed in no acute distress. Continues with scant drainage from bilateral JPs. We'll attempt CPAP trial again today. Positive stool from ostomy bag 09/01: Tmax 99.8. Currently 99.3. Placement of the new right IJ vas catheter today. Plan for IR to possibly drain right lower quadrant fluid collection. Arousable and moves all 4 extremity spontaneously. Subjective 09/02: Currently afebrile. Noted placement of iron drain with accordion drain. Growing Pseudomonas. Lasted only 2 hours on CPAP trials today. 09/03: Tolerated SBT for only 30 mins and required PS 20. Not ready to extubate. 09/04: Tachypnea related to anxiety? or metabolic acidosis. Will check VBG. Not tolerating SBT. Objective Vital Signs Date Time Temp Pulse Resp B/P Pulse Ox O2 Delivery O2 Flow Rate FiO2 09/04/16 06:00 109 09/04/16 04:11 98 40 09/04/16 04:00 98.3 27 134/55 09/03/16 19:00 Mechanical Ventilator 09/02/16 07:00 15.00 Intake and Output 09/03/16 09/03/16 09/04/16 08:00 16:00 00:00 Intake Total 862 ml 1131 ml 1056 ml Output Total 185 ml 415 ml 350 ml Balance 677 ml 716 ml 706 ml Result Diagram: 09/03/16 0411 09/03/16 0411 Other Results Microbiology Date/Time Procedure Status Source Growth 09/01/16 13:45 Gram Stain - Final Complete Abscess Abdomen 09/01/16 13:45 Wound Culture - Final Complete Pseudomonas Aeruginosa Enterococcus Faecalis Iram Glabrata Imaging Last Impressions Chest X-Ray 09/01/16 0679 Signed Impressions: Service Date/Time: Thursday, September 01, 2016 06:39 - CONCLUSION: 1. Right internal jugular catheter tip in good position. No evidence of pneumothorax. 2. Persistent bilateral lower lung infiltrates, left greater than right. Evelio Boyd MD Abdomen/Pelvis CT 08/29/16 0000 Signed Impressions: Service Date/Time: Monday, August 29, 2016 17:12 - CONCLUSION: Post surgical changes following partial colon resection. Persistent pockets of fluid. Largest is located in the pelvis and contains an air-fluid level. Abscess formation cannot be excluded. Small bowel ileus Bibasilar airspace disease and pleural effusions Aakash Iqbal MD Abdomen X-Ray 08/24/16 0000 Signed Impressions: Service Date/Time: August 07:44 - CONCLUSION: Gaseous distention of multiple bowel loops possible ileus. Jony Miller MD Enema w/Water Soluble 08/23/16 0000 Signed Impressions: Service Date/Time: Tuesday, August 23, 2016 10:12 - CONCLUSION: Anastomosis appears patent without extravasation. Aditya Rocha MD FACR CT Angiography 08/21/16 0000 Signed Impressions: Service Date/Time: Sunday, August 21, 2016 14:05 - CONCLUSION: 1. There is no evidence for central pulmonary emboli. 2. Minimal subcutaneous air as well as free intraperitoneal air. Aditya Rocha MD FACR Objective Remarks GENERAL: 56-year-old orotracheally intubated in no acute distress SKIN: Warm, flushed. HEAD: Atraumatic. Normocephalic. ENT: Orotracheally intubated NECK: Trachea midline. No JVD or lymphadenopathy. Right IJ hemodialysis catheter clean dry and intact. CARDIOVASCULAR: Tachycardic, RR. S1, S2. No S4. Without murmurs, gallops, or rubs. RESPIRATORY: Orally intubated on mechanical ventilation, air entry decreased bilaterally at bases with scattered rhonchi, no inspiratory or expiratory wheezing. GASTROINTESTINAL: Abdomen distended. Midline incision clean and intact. Bilateral SERGEI drains at the flanks with sero-sanguinous output. Ileostomy viability noted. Erythema of the skin lateral to ileostomy. MUSCULOSKELETAL: Extremities with 1+ bilateral upper and lower extremity edema, well perfused. NEUROLOGICAL: Sedated for vent synchrony, opens eyes to voice but not following commands currently. Pupils equal round and reactive 2 mm bilaterally Date of Insertion: Aug 31, 2016 Line: Central Venous Catheter Side: Right Location: Subclavian A/P Assessment and Plan NEURO/PSYCH: History of anxiety -On Sedation and pain control with Versed as needed and fentanyl at 175 jose grams an hour infusions for analgesia. Goal of RASS -2 -Daily sedation vacation, follow neuro status. - Acetaminophen for fever RESP: Acute hypoxemic respiratory failure COPD exacerbation Probable healthcare associated pneumonia -Continue ACV 22/600 0.75/8/50 Ventilator bundle -Albuterol nebs every 4 hours scheduled and when necessary, Symbicort 2 puffs every 12 was discontinued while in ventilator. Continue Pulmicort twice a day -Broad-spectrum antibiotics as below -Continue daily C Pap trials. Dr. Renteria/Pulmonary following CV: Hypotension secondary to septic shock resolved History of hypertension -Received multiple fluid boluses on 08/25. IV fluids discontinued subsequently in view of anuria necessitating hemodialysis. On TPN at 65 cc an hour Off all vasopressors -Attempt negative fluid balance with hemodialysis. GI/ Nutrition: Anastomotic leak status post exploratory laparotomy, I&D, loop ileostomy 08/24/16 s/p Laparoscopic robotic extensive ANNA MARIE, robotic LAR and small bowel resection Laparoscopic robotic ANNA MARIE, robotic LAR and small bowel resection with anastomotic leak History of diverticulitis -Status post exploratory laparotomy, I&D, loop ileostomy 08/24/16 -Postoperative management per Dr. Moffett. Broad-spectrum antibiotics as below. Left SERGEI drain 5 cc. Right SERGEI 25 cc. positive ostomy output CT abdomen pelvis with oral contrast 08/29 reveal small bowel ileus. Serous fluid collection likely postoperative changes. - On Reglan to improve GI motility -Started on TPN 08/25 at 65 cc an hour with lipids daily Protonix for GI prophylaxis According drain to right lower quadrant 09/01 by IR. -160 Renal/: Acute kidney injury History BPH Status post bilateral ureteral stents placed by Dr. Fraser 08/18 -Monitor renal function closely. Mg catheter. -IV fluids discontinued in view of anuric renal failure and hyperkalemia necessitating hemodialysis. Nephrology consulted and following. -Attempt maintaining even to slightly negative fluid balance if blood pressure permits. New right IJ hemodialysis catheter placed 09/01 ID: Anastomotic leak Sepsis Probable HCAP -IV vancomycin, Flagyl and Levaquin per Dr. Moffett. Levaquin discontinued . Zosyn started 09/02. Flagyl micafungin per ID added. Left-sided SERGEI drain with bloody output. Pertinent culture 09/01: Abdominal wound - Pseudomonas 08/31 - line culture Pseudomonas/coag negative staph 08/31 - blood cultures 2 -no growth 08/31 - sputum - pending 08/29 - wound - Pseudomonas, group D enterococcus, C. albicans and yeast 08/25 blood cultures - no growth 08/25 sputum - Serratia/Klebsiella/Pseudomonas 08/24 - wound - no growth 09/01 - wound Pseudomonas, Enterococcus, Iram HEME: Leukocytosis Normocytic anemia -Monitor CBC, CMP, coags ENDO: -Sliding-scale insulin for glycemic control. 30 units sliding scale past 24 hours. Levemir 30 units twice a day PROPH: -Bilateral lower extremity SCDs. Heparin subcutaneous for DVT prophylaxis.. Protonix for GI prophylaxis LINES: -Left subclavian central line placed in the OR 08/24 - 08/31. Right subclavian central line placed 08/31 - RIJ dialysis catheter 08/25 -08/31. New right IJ hemodialysis catheter 09/01 Overall impression: He remains critically ill with several organs dysfunctional and ventilator dependent. Will assess nutritional status. Unable to wean from ventilator. Critical Care 34 mins Mando Brown MD Sep 04, 2016 07:20
[2016-09-04] MEDS: RESP: BUDESONIDE 0.5 MG/2 ML NEB NEB SCH ×2 (07:25→21:00)
[2016-09-04] MEDS: CEFEPIME INJ 2,000 MG in SODIUM CHLORIDE 0.9% INJ 100 ML IV SCH (08:00)
[2016-09-04] MEDS: MICAFUNGIN INJ 100 MG in SODIUM CHLORIDE 0.9% INJ 100 ML IV SCH (08:00)
[2016-09-04 08:29] LABS: AUTOMATED NEUTROPHIL # 19.6 TH/MM3 (1.8-7.7); BASOPHIL # 0.1 TH/MM3 (0-0.2); BASOPHIL % 0.4 % (0.0-2.0); EOSINOPHIL # 0.3 TH/MM3 (0-0.4); EOSINOPHIL % 1.3 % (0.0-4.0); HEMO FLAGS AUTO DIFF; LYMPH % 4.8 % (9.0-44.0); LYMPHOCYTE # 1.1 TH/MM3 (1.0-4.8); MEAN CELL VOLUME 84.9 FL (80.0-100.0); MEAN CORPUSCULAR HEMOGLOBIN 28.3 PG (27.0-34.0); MEAN CORPUSCULAR HGB CONC 33.3 % (32.0-36.0); MONO % 7.8 % (0.0-8.0); NEUT % 85.7 % (16.0-70.0); PLATELET COUNT 278 TH/MM3 (150-450); RED BLOOD COUNT 2.71 MIL/MM3 (4.50-5.90); RED CELL DISTRIBUTION WIDTH 15.1 % (11.6-17.2); WHITE BLOOD COUNT 22.9 TH/MM3 (4.0-11.0)
[2016-09-04] MEDS: MUPIROCIN 2% OINT 1 APPLIC/GM SYR EACH NARE SCH ×2 (08:47→21:00)
[2016-09-04] MEDS: SODIUM CHLORIDE 0.9% FLUSH 5 ML FLUSH IVF SCH ×2 (08:47→21:00)
[2016-09-04] MEDS: CHLORHEXIDINE 0.12% (ORAL KIT) 15 ML CUP MT SCH ×2 (08:47→20:00)
[2016-09-04] MEDS: VANCOMYCIN INJ 1,000 MG in SODIUM CHLOR 0.9% 250 ML INJ 250 ML IV SCH (08:48)
[2016-09-04] MEDS: INSULIN DETEMIR 100 UNITS/ML VIAL SQ SCH ×2 (08:48→23:49)
[2016-09-04 08:49] LABS: BICARBONATE 20.7 MEQ/L (21.0-32.0); POTASSIUM 5.4 MEQ/L (3.5-5.1)
[2016-09-04] MEDS: PANTOPRAZOLE SODIUM 40 MG VIAL IVP SCH (08:50)
[2016-09-04] MEDS: HEPARIN SODIUM - SQ 10,000 UNITS/ML VIAL SQ SCH ×2 (08:50→21:00)
[2016-09-04] MEDS: amLODIPine BESYLATE 5 MG TAB PO SCH (09:00)
[2016-09-04 09:12] LABS: BANDS 11 % (0-6); METAMYELOCYTES 2 % (0-1); MYELOCYTES 7 % (0-0); NEUTROPHIL # MANUAL DIFF 18.3 TH/MM3 (1.8-7.7); POLYS (SEG NEUTROPHILS) 60 % (16-70); WBC DIFF SAMPLE 100
[2016-09-04 09:13] LABS: PLATELET ESTIMATE SMEAR NORMAL (NORMAL); PLATELET MORPHOLOGY NORMAL (NORMAL); TOXIC GRANULATION 1+ (NORMAL)
[2016-09-04 09:14] LABS: ROULEAUX PRESENT (NORMAL); SCAN/DIFF FINAL DIFF MANUAL; TARGET CELLS 1+ (NORMAL)
--- NOTE | 2016-09-04 10:01 | HHI.PR ---
Subjective Remarks WBC decreased slightly. Remains intubated,off pressors. Wound vac in place. Being dialized at bedside. Objective Vital Signs Date Time Temp Pulse Resp B/P Pulse Ox O2 Delivery O2 Flow Rate FiO2 09/04/16 07:26 97 40 09/04/16 06:00 109 09/04/16 04:11 98 40 09/04/16 04:00 98.3 108 27 134/55 97 09/04/16 04:00 108 09/04/16 04:00 40 09/04/16 02:00 100 09/04/16 00:38 98 40 09/04/16 00:00 97.7 98 27 141/65 98 09/04/16 00:00 40 09/04/16 00:00 98 09/03/16 22:00 96 09/03/16 20:00 98 40 09/03/16 20:00 40 09/03/16 20:00 97.9 98 31 116/57 98 09/03/16 20:00 98 09/03/16 19:00 98 Mechanical Ventilator 40 09/03/16 18:00 101 09/03/16 17:14 96 40 09/03/16 16:00 40 09/03/16 16:00 98.3 106 28 136/63 97 09/03/16 16:00 111 09/03/16 14:15 166/67 09/03/16 14:00 111 09/03/16 13:21 95 40 09/03/16 13:15 114 28 206/88 09/03/16 13:00 112 26 206/91 09/03/16 12:45 122 26 180/89 09/03/16 12:00 112 09/03/16 12:00 40 09/03/16 12:00 98.6 112 22 168/84 98 09/03/16 10:00 110 I/O 09/03/16 09/03/16 09/03/16 09/04/16 09/04/16 09/04/16 07:00 15:00 23:00 07:00 15:00 23:00 Intake Total 862 ml 1131 ml 1056 ml 887 ml Output Total 185 ml 415 ml 350 ml 320 ml Balance 677 ml 716 ml 706 ml 567 ml Intake Oral 0 ml IV Total 301 ml 493 ml 506 ml 353 ml TPN/PPN 486 ml 553 ml 477 ml 463 ml Lipid 75 ml 85 ml 73 ml 71 ml Output Urine Total 50 ml 80 ml 35 ml 30 ml Stool Total 100 ml 60 ml 125 ml 50 ml Gastric Drainage Total 0 ml 100 ml 100 ml 150 ml Drainage Total 35 ml 175 ml 90 ml 90 ml Result Diagram: 09/04/1681409/04/16814 Objective Remarks VS-S Abd: obese,distended,stooling from Ileostomy. Wound vac in place. No skin cellulitis. Upper wound yehuda remain. SubQ from upper part open and draining thru wound vac adequately.New drain with light brown drainage. LLQ drain more serous,less brown. RUQ drain remains sero-sanguinous. Assessment and Plan Assessment and Plan Stable Resp failure. ARF.Wound infection with fascial separation. Clean with wound vac in place. All drains in place. D/W oldest son Miki. Pt remains critical but stable. WBC slightly better. Continue to support multiple organ system failures. Claude Flores MD Sep 04, 2016 10:01
--- NOTE | 2016-09-04 10:31 | HHI.NPPN ---
Subjective Renal Failure: Acute Interval History Seen during bedside dialysis. He is massively fluid overloaded. (Fransisca Canela) Review of Systems General General Remarks unable to evaluate (Fransisca Canela) Objective Data Data 09/03/16 09/04/16 19:00 07:00 Intake Total 1131 ml 1943 ml Output Total 415 ml 670 ml Balance 716 ml 1273 ml Intake Oral 0 ml IV Total 493 ml 859 ml TPN/PPN 553 ml 940 ml Lipid 85 ml 144 ml Output Urine Total 80 ml 65 ml Stool Total 60 ml 175 ml Gastric Drainage Total 100 ml 250 ml Drainage Total 175 ml 180 ml Vital Signs Date Time Temp Pulse Resp B/P Pulse Ox O2 Delivery O2 Flow Rate FiO2 09/04/16 07:26 97 40 09/04/16 06:00 109 09/04/16 04:11 98 40 09/04/16 04:00 98.3 108 27 134/55 97 09/04/16 04:00 108 09/04/16 04:00 40 09/04/16 02:00 100 09/04/16 00:38 98 40 09/04/16 00:00 97.7 98 27 141/65 98 09/04/16 00:00 40 09/04/16 00:00 98 09/03/16 22:00 96 09/03/16 20:00 98 40 09/03/16 20:00 40 09/03/16 20:00 97.9 98 31 116/57 98 09/03/16 20:00 98 09/03/16 19:00 98 Mechanical Ventilator 40 09/03/16 18:00 101 09/03/16 17:14 96 40 09/03/16 16:00 40 09/03/16 16:00 98.3 106 28 136/63 97 09/03/16 16:00 111 09/03/16 14:15 166/67 09/03/16 14:00 111 09/03/16 13:21 95 40 09/03/16 13:15 114 28 206/88 09/03/16 13:00 112 26 206/91 09/03/16 12:45 122 26 180/89 09/03/16 12:00 112 09/03/16 12:00 40 09/03/16 12:00 98.6 112 22 168/84 98 (Fransisca Canela) -: 09/04/16 0815 09/04/16 0815 Imaging Last 48 hours Impressions Chest X-Ray 09/03/16 0600 Signed Impressions: Service Date/Time: Saturday, September 03, 2016 04:03 - CONCLUSION: Stable left lower lobe consolidation and right lower lung infiltrates. Evelio Boyd MD Tubes & Lines: Vas-Cath, Mg Tubes & Lines Comment TLC, Drip Comment fentanyl, TPN, lipids (Fransisca Canela) Physical Exam General Appearance: Well Developed, Well Nourished, No Acute Distress Appearance Remarks intubated, sedated (Fransisca Canela) Throat Throat Exam: Oral Mucosa [place] & Moist (Fransisca Canela) Pulmonary Resp Exam: Breath Sounds Equal, No Distress, Crackles, Diminished Breath Sounds Resp Remarks vented (Fransisca Canela) Cardiology CV Exam: Regular, Normal Sinus Rhythm (Fransisca Canela) Gastrointestinal/Abdomen GI Exam: Distended GI Remarks distended, firm; colostomy with protruding beefy red stoma; hyperactive bowel sounds (Fransisca Canela) Musculoskeletal MS Exam: Joints Intact, Normal Tone (Fransisca Canela) Integumentary Skin Exam: Warm, Dry Skin Remarks below umbilicus, midabdominal wound has dehisced (Fransisca Canela) Extremeties Extremities Exam: Pedal Pulses Palpable, Moderate Edema (Fransisca Canela) Neurologic Neuro Exam: Unresponsive, Sedated (Fransisca Canela) VTE Prophylaxis Device: SCDs (Fransisca Canela) Assessment/Plan Discussed Condition With: Son Assessment Summary: VIRIDIANA/Acute Renal Failure, Acute Tubular Necrosis Problem List: (1) Acute renal failure Plan: in a pt with normal renal function at baseline oliguric renal failure, ATN from sepsis and renal hypoperfusion HD started 08/25; now on schedule seen during dialysis today on a 2K, 350 BFR, goal 3L he is anuric, positive fluid balance may need dialysis tomorrow for fluid removal Electrolytes stable avoid IVF; monitor fluid volume status, attempt negative balance monitor BP, pressors to maintain MAP although he has not been requiring pressors daily renal panel, await renal recovery (2) Diverticulitis Plan: s/p colon resection with complications surgery following, appreciate recommendations continue present antibiotics including vancomycin, flagyl, Levaquin, cefepime, micafungin ID following TPN infusing; he is NPO (Fransisca Canela) Plan patient was seen and examined. Seen during dialysis. Needs continued fluid removal. No signs of renal recovery. (Tito Kuo MD) Problem Qualifiers (1) Acute renal failure: Qualified Code: N17.0 - Acute renal failure with tubular necrosis Fransisca Canela Sep 04, 2016 10:31 Tito Kuo MD Sep 04, 2016 20:58
--- NOTE | 2016-09-04 12:01 | HHI.IDPN ---
Note Infectious Disease Note Notes reviewed. Patient failed CPAP trial again. Patient is on the vent. Sedated. Temp lower. WBC decreased. PAST MEDICAL HISTORY 1. Diverticulitis. 2. COPD. 3. Hypertension. 4. Anxiety disorder. 5. BPH. 6. History of tonsillectomy. ALLERGIES No known drug allergies. ANTIBIOTICS 1. Cefepime. 2. Zosyn 3. Vancomycin. 4. Micafungin. 5. Metronidazole. SOCIAL HISTORY The patient is a smoker of one pack of cigarettes a day. No alcohol. No illicit drugs. OBJECTIVE: Vital Signs Date Time Temp Pulse Resp B/P Pulse Ox O2 Delivery O2 Flow Rate FiO2 09/04/16 10:00 100 09/04/16 08:00 109 09/04/16 08:00 98 Mechanical Ventilator 40 09/04/16 08:00 40 09/04/16 08:00 98.8 109 28 126/58 97 09/04/16 07:26 97 40 09/04/16 06:00 109 09/04/16 04:11 98 40 09/04/16 04:00 98.3 108 27 134/55 97 09/04/16 04:00 108 09/04/16 04:00 40 09/04/16 02:00 100 09/04/16 00:38 98 40 09/04/16 00:00 97.7 98 27 141/65 98 09/04/16 00:00 40 09/04/16 00:00 98 09/03/16 22:00 96 09/03/16 20:00 98 40 09/03/16 20:00 40 09/03/16 20:00 97.9 98 31 116/57 98 09/03/16 20:00 98 09/03/16 19:00 98 Mechanical Ventilator 40 09/03/16 18:00 101 09/03/16 17:14 96 40 09/03/16 16:00 40 09/03/16 16:00 98.3 106 28 136/63 97 09/03/16 16:00 111 09/03/16 14:15 166/67 09/03/16 14:00 111 09/03/16 13:21 95 40 09/03/16 13:15 114 28 206/88 09/03/16 13:00 112 26 206/91 09/03/16 12:45 122 26 180/89 09/03/16 12:00 112 09/03/16 12:00 40 09/03/16 12:00 98.6 112 22 168/84 98 09/03/16 09/03/16 09/04/16 15:00 23:00 07:00 Intake Total 1131 ml 1056 ml 887 ml Output Total 415 ml 350 ml 320 ml Balance 716 ml 706 ml 567 ml Intake Oral 0 ml IV Total 493 ml 506 ml 353 ml TPN/PPN 553 ml 477 ml 463 ml Lipid 85 ml 73 ml 71 ml Output Urine Total 80 ml 35 ml 30 ml Stool Total 60 ml 125 ml 50 ml Gastric Drainage Total 100 ml 100 ml 150 ml Drainage Total 175 ml 90 ml 90 ml Laboratory Tests Test 09/03/16 09/04/16 04:11 08:15 White Blood Count 26.3 TH/MM3 22.9 TH/MM3 Red Blood Count 2.86 MIL/MM3 2.71 MIL/MM3 Hemoglobin 7.9 GM/DL 7.7 GM/DL Hematocrit 24.2 % 23.0 % Mean Corpuscular Volume 84.9 FL 84.9 FL Mean Corpuscular Hemoglobin 27.8 PG 28.3 PG Mean Corpuscular Hemoglobin 32.7 % 33.3 % Concent Red Cell Distribution Width 15.0 % 15.1 % Platelet Count 277 TH/MM3 278 TH/MM3 Mean Platelet Volume 9.1 FL 8.7 FL Neutrophils (%) (Auto) 85.5 % 85.7 % Lymphocytes (%) (Auto) 5.0 % 4.8 % Monocytes (%) (Auto) 8.3 % 7.8 % Eosinophils (%) (Auto) 0.8 % 1.3 % Basophils (%) (Auto) 0.4 % 0.4 % Neutrophils # (Auto) 22.5 TH/MM3 19.6 TH/MM3 Lymphocytes # (Auto) 1.3 TH/MM3 1.1 TH/MM3 Monocytes # (Auto) 2.2 TH/MM3 1.8 TH/MM3 Eosinophils # (Auto) 0.2 TH/MM3 0.3 TH/MM3 Basophils # (Auto) 0.1 TH/MM3 0.1 TH/MM3 CBC Comment AUTO DIFF AUTO DIFF Differential Total Cells 100 100 Counted Neutrophils % (Manual) 67 % 60 % Band Neutrophils % 9 % 11 % Lymphocytes % 6 % 12 % Monocytes % 7 % 8 % Neutrophils # (Manual) 22.9 TH/MM3 18.3 TH/MM3 Metamyelocytes 2 % 2 % Myelocytes 9 % 7 % Differential Comment FINAL DIFF FINAL DIFF MANUAL MANUAL Platelet Estimate NORMAL NORMAL Platelet Morphology Comment NORMAL NORMAL Target Cells 1+ 1+ Stomatocytes 1+ Toxic Granulation 1+ Rouleau PRESENT Laboratory Tests Test 09/03/16 09/04/16 04:11 08:15 Sodium Level 136 MEQ/L 132 MEQ/L Potassium Level 5.1 MEQ/L 5.4 MEQ/L Chloride Level 100 MEQ/L 99 MEQ/L Carbon Dioxide Level 24.2 MEQ/L 20.7 MEQ/L Anion Gap 12 MEQ/L 12 MEQ/L Blood Urea Nitrogen 103 MG/DL 125 MG/DL Creatinine 6.68 MG/DL 7.33 MG/DL Estimat Glomerular Filtration 9 ML/MIN 8 ML/MIN Rate Random Glucose 212 MG/DL 189 MG/DL Calcium Level 8.5 MG/DL 8.6 MG/DL Phosphorus Level 5.5 MG/DL Magnesium Level 2.4 MG/DL Total Bilirubin 1.1 MG/DL Aspartate Amino Transf 27 U/L (AST/SGOT) Alanine Aminotransferase 6 U/L (ALT/SGPT) Alkaline Phosphatase 147 U/L Total Protein 6.4 GM/DL Albumin 1.7 GM/DL Microbiology Date/Time Procedure Status Source Growth 08/31/16 15:40 Wound Culture - Final Complete Catheter Tip Central Venous Line Pseudomonas Species Staph Sp Coagulase Negative 08/31/16 15:40 Fungal Culture - Final Complete Catheter Tip Central Venous Line 09/01/16 13:45 Gram Stain - Final Complete Abscess Abdomen 09/01/16 13:45 Wound Culture - Final Complete Pseudomonas Aeruginosa Enterococcus Faecalis Iram Glabrata Imaging: Chest X-Ray 09/03/16599 Signed Impressions: Service Date/Time: Saturday, September 03, 2016 04:03 - CONCLUSION: Stable left lower lobe consolidation and right lower lung infiltrates. Evelio Boyd MD Retroperitoneal Abscess Drainage 09/01/16599 Signed Impressions: Service Date/Time: Thursday, September 01, 2016 13:05 - CONCLUSION: Uncomplicated CT guided drainage of a right lower quadrant fluid collection. Approximately 75 cc of fecal-like brown material was aspirated. The air and fluid collection may communicate with the inferior aspect of the midline wound on the anterior abdominal wall. Claude Carrasco MD Abdomen/Pelvis CT 08/29/16 0000 Signed Impressions: Service Date/Time: Monday, August 29, 2016 17:12 - CONCLUSION: Post surgical changes following partial colon resection. Persistent pockets of fluid. Largest is located in the pelvis and contains an air-fluid level. Abscess formation cannot be excluded. Small bowel ileus Bibasilar airspace disease and pleural effusions Aakash Iqbal MD Abdomen X-Ray 08/24/16 0000 Signed Impressions: Service Date/Time: August 07:44 - CONCLUSION: Gaseous distention of multiple bowel loops possible ileus. Jony Miller MD Enema w/Water Soluble 08/23/16 0000 Signed Impressions: Service Date/Time: Tuesday, August 23, 2016 10:12 - CONCLUSION: Anastomosis appears patent without extravasation. Aditya Rocha MD FACR CT Angiography 08/21/16 0000 Signed Impressions: Service Date/Time: Sunday, August 21, 2016 14:05 - CONCLUSION: 1. There is no evidence for central pulmonary emboli. 2. Minimal subcutaneous air as well as free intraperitoneal air. Aditya Rocha MD FACR PHYSICAL EXAMINATION GENERAL: Sedated on the ventilator. HEENT: The oropharynx is intubated. no icterus. NECK: No adenopathy or swelling. LUNGS: Bilateral rhonchi same. HEART: Regular rate and rhythm. No audible murmurs, rubs or gallops. ABDOMEN: Distended. Diminished bowel sounds. Wound vac in place. Positive serous drainage from the SERGEI drains. scant from L. abdomen. EXTREMITIES: No clubbing or cyanosis. 1-2+ edema. Distal pulses 2+. SKIN: Warm and moist. No rash. NEUROLOGIC: Unable to fully assess. IMPRESSION 1. Sepsis. Pseudomonas on CVL culture of removed line. 2. Peritonitis. Post abdominal surgery/Bowel resection - enterococcus, pseudomonas and yeast. 3. Pneumonia due to gram-negative bacteria with sputum culture showing Serratia, Klebsiella and Pseudomonas. New culture has pseudomonas. 4. Leukocytosis secondary to infection. WBC remain elevated. 5. Acute renal failure. 6. Acute respiratory failure. RECOMMENDATIONS 1. Continue Cefepime. 2. Continue PIP/Tazobactam. 3. Continue vancomycin. 4. Continue micafungin. 5. Continue metronidazole. 6. Monitor white blood cell count. 7. Follow clinical status. Tim Apodaca MD Sep 04, 2016 12:01
--- NOTE | 2016-09-04 21:01 | HHI.PR ---
Subjective Remarks YOAA male with robotic surgery,COPD exac Underwent exp lap,I&d and loop iliostomy placement Remains on vent Sedated Did't tolerate cpap.On AC 22, Fi02 40% Had HD Objective Vital Signs Vital Signs Date Time Temp Pulse Resp B/P Pulse Ox O2 Delivery O2 Flow Rate FiO2 09/04/16 18:00 99 09/04/16 16:00 99.0 101 22 95/50 99 09/04/16 16:00 40 09/04/16 16:00 100 09/04/16 15:50 98 40 09/04/16 14:00 100 09/04/16 12:38 97 40 09/04/16 12:00 101 09/04/16 12:00 40 09/04/16 12:00 99.0 101 22 95/50 99 09/04/16 10:00 100 09/04/16 08:00 109 09/04/16 08:00 98 Mechanical Ventilator 40 09/04/16 08:00 40 09/04/16 08:00 98.8 109 28 126/58 97 09/04/16 07:26 97 40 09/04/16 06:00 109 09/04/16 04:11 98 40 09/04/16 04:00 98.3 108 27 134/55 97 09/04/16 04:00 108 09/04/16 04:00 40 09/04/16 02:00 100 09/04/16 00:38 98 40 09/04/16 00:00 97.7 98 27 141/65 98 09/04/16 00:00 40 09/04/16 00:00 98 09/03/16 22:00 96 I/O 09/03/16 09/03/16 09/03/16 09/04/16 09/04/16 09/04/16 07:00 15:00 23:00 07:00 15:00 23:00 Intake Total 862 ml 1131 ml 1056 ml 887 ml 1458 ml Output Total 185 ml 415 ml 350 ml 320 ml 3730 ml Balance 677 ml 716 ml 706 ml 567 ml -2272 ml Intake Oral 0 ml IV Total 301 ml 493 ml 506 ml 353 ml 710 ml TPN/PPN 486 ml 553 ml 477 ml 463 ml 650 ml Lipid 75 ml 85 ml 73 ml 71 ml 98 ml Output Urine Total 50 ml 80 ml 35 ml 30 ml 10 ml Stool Total 100 ml 60 ml 125 ml 50 ml Gastric Drainage Total 0 ml 100 ml 100 ml 150 ml 100 ml Drainage Total 35 ml 175 ml 90 ml 90 ml 120 ml Hemodialysis 3500 ml Result Diagram: 09/04/1681409/04/16814 Objective Remarks GENERAL: WBWN obese male, on Vent , sedated SKIN: Warm and dry. HEAD: Normocephalic. EYES: No scleral icterus. No injection or drainage. NECK: Supple, trachea midline. No JVD or lymphadenopathy. CARDIOVASCULAR: Regular rate and rhythm without murmurs, gallops, or rubs. RESPIRATORY: Breath sounds equal bilaterally. No accessory muscle use. exp rhonchi GASTROINTESTINAL: Abdomen soft, non-tender, Abd distended MUSCULOSKELETAL: No cyanosis, or edema. BACK: Nontender without obvious deformity. No CVA tenderness. A/P Assessment and Plan Resp Failure, on vent COPD exac S/p robotic surgery Anxiety S/p Exp lap PLAN: Cont vent support,ACV, Fi02 40% aerosol nebs Nebuliser rx qid and prn Abx per ID Cefepime,Levaquin,Flagyl,Micafungin and vanco Fentanyl and Diprivan for sedation. CPAP trial in AM Robbie Renteria MD Sep 04, 2016 21:01
[2016-09-04] MEDS: FAT EMULSION 20% INJ 250 ML (@10 mls/hr) IV-CENTRAL SCH (23:26)
[2016-09-04] MEDS: SODIUM CHLORIDE IV-CENTRAL SCH ×9 (23:27)
[2016-09-04] MEDS: [UNRECOGNIZED DRUG - OTHER] IV-CENTRAL SCH ×9 (23:27)
[2016-09-04] MEDS: SODIUM ACETATE IV-CENTRAL SCH ×9 (23:27)
[2016-09-05] VITALS (20 sets, daily range): BP systolic 135–155; BP diastolic 64–84; PULSE 101–124; RESP 22–27; TEMP 98.3–99.1; O2SAT 94–100
[2016-09-05] MEDS: RESP: ALBUTEROL 2.5 MG/3 ML NEB (SCH) INH ×7 (00:29→19:49)
[2016-09-05] MEDS: metroNIDAZOLE 500 MG TAB PO SCH ×4 (00:37→17:56)
[2016-09-05] MEDS: INSULIN ASPART SUPPLEMENTAL SCALE SQ SCH ×6 (04:00→20:00)
[2016-09-05] MEDS: PIPERACIL-TAZO 2.25 GM PREMIX 50 ML IV SCH ×2 (04:33→16:59)
[2016-09-05] MEDS: fentaNYL 2,500 MCG/NS 250 ML IV SCH ×2 (04:33→23:24)
[2016-09-05 05:17] LABS: AUTOMATED NEUTROPHIL # 16.1 TH/MM3 (1.8-7.7); BASOPHIL # 0.1 TH/MM3 (0-0.2); BASOPHIL % 0.5 % (0.0-2.0); EOSINOPHIL # 0.1 TH/MM3 (0-0.4); EOSINOPHIL % 0.7 % (0.0-4.0); LYMPH % 4.3 % (9.0-44.0); LYMPHOCYTE # 0.8 TH/MM3 (1.0-4.8); MEAN CELL VOLUME 85.6 FL (80.0-100.0); MEAN CORPUSCULAR HEMOGLOBIN 28.5 PG (27.0-34.0); MEAN CORPUSCULAR HGB CONC 33.3 % (32.0-36.0); MONO % 7.9 % (0.0-8.0); NEUT % 86.6 % (16.0-70.0); PLATELET COUNT 241 TH/MM3 (150-450); RED BLOOD COUNT 2.39 MIL/MM3 (4.50-5.90); RED CELL DISTRIBUTION WIDTH 14.8 % (11.6-17.2); WHITE BLOOD COUNT 18.6 TH/MM3 (4.0-11.0)
[2016-09-05 05:25] LABS: HEMO FLAGS AUTO DIFF
[2016-09-05 05:29] LABS: HEMATOCRIT 20.5 % (39.0-51.0)
[2016-09-05 06:00] LABS: BICARBONATE 26.1 MEQ/L (21.0-32.0); POTASSIUM 4.6 MEQ/L (3.5-5.1)
[2016-09-05] MEDS: cloNIDine HCL 0.1 MG TAB PO SCH ×3 (06:43→21:03)
[2016-09-05] MEDS: METOCLOPRAMIDE HCL 10 MG/2 ML VIAL IV PUSH SCH ×3 (06:43→21:03)
[2016-09-05 07:23] LABS: BANDS 22 % (0-6); METAMYELOCYTES 3 % (0-1); NEUTROPHIL # MANUAL DIFF 17.9 TH/MM3 (1.8-7.7); POLYS (SEG NEUTROPHILS) 71 % (16-70); WBC DIFF SAMPLE 100
[2016-09-05 07:24] LABS: PLATELET ESTIMATE SMEAR NORMAL (NORMAL); PLATELET MORPHOLOGY CLUMPED (NORMAL); SCAN/DIFF FINAL DIFF MANUAL
--- NOTE | 2016-09-05 07:27 | HHI.CCPN ---
Subjective Remarks/Hospital Course 08/25: Patient is a 58-year-old male with past medical history significant COPD who, on 08/18/16, underwent Laparoscopic robotic extensive lysis of adhesions, low anterior resection and small bowel resection. Apparently he was brought in by Dr. Moffett for Diverticulitis. Patient has a history of hypertension, COPD, and continues to smoke one pack of cigarettes a day. Postoperatively patient became progressively short of breath. Pulmonary was consulted on 08/21/16 as the patient was becoming more hypoxemic requiring BiPAP. CT of the chest PE protocol did not show any pulmonary embolism. Patient was placed on breathing treatments and IV Solu-Medrol 40 mg every [address] Renteria. Today a.m. patient was on 100% nonrebreather. Patient was diagnosed with an anastomotic leak today and was taken back to the OR by Dr. Moffett. He underwent exploratory laparotomy, I&D and loop ileostomy today. Postop patient remained hypoxemic requiring 70% oxygen, and hence was left intubated and critical care medicine was consulted. Dr. Arce evaluated the patient in ICU. He remained hypoxemic, FiO2 70%. Chest x-ray shows bibasilar mild infiltrates. On sedation lightening patient became very hypertensive, not following commands probably secondary to residual NM blockade received while being transported to ICU. Patient on receiving vancomycin Levaquin and Flagyl per Dr. Moffett. Dr. Arce added cefepime to cover for Pseudomonas. Holding Solu-Medrol due to anastomotic leak. 08/26: Remains sedated, orally intubated on mechanical ventilation. Went into anuric renal failure yesterday which did not respond to fluid boluses and diuretics hence was started on hemodialysis after placement of right IJ Vas- Cath. Currently sedated, arousable, remains orally intubated on mechanical ventilation. Blood pressure borderline last evening following dialysis for which she was started on low-dose vasopressin 0.03 units per minute and Levophed which is currently at 1 jose per minute. Started on TPN last night following which he has been hyperglycemic. 08/27: Sedated, arousable, orally intubated on mechanical ventilation. Spiking fevers overnight. Off Levophed, transiently off vasopressin. Remains on TPN. 08/28: Remains sedated, arousable, orally intubated on mechanical ventilation. On low-dose vasopressin. TPN continues. Made about 500 cc of urine in the last 24 hours. 08/29: In sedated, arousable, orally intubated on mechanical ventilation. Remains on TPN. Dirty drainage from left-sided SERGEI drain noted overnight. Dr. Moffett obtaining CT abdomen pelvis with oral contrast and ID consulted. 08/30: CURRENT TEMPERATURE 99. Status post 4 L hemodialysis today. No current change in therapy. White blood cell count remained stable. Off vasopressors. Arousable to voice. Versed has been discontinued. We'll attempt CPAP trials again today. 08/31: MAXIMUM TEMPERATURE 100.4. Currently 100.1. Currently resting in bed in no acute distress. Continues with scant drainage from bilateral JPs. We'll attempt CPAP trial again today. Positive stool from ostomy bag 09/01: Tmax 99.8. Currently 99.3. Placement of the new right IJ vas catheter today. Plan for IR to possibly drain right lower quadrant fluid collection. Arousable and moves all 4 extremity spontaneously. Subjective 09/02: Currently afebrile. Noted placement of iron drain with accordion drain. Growing Pseudomonas. Lasted only 2 hours on CPAP trials today. 09/03: Tolerated SBT for only 30 mins and required PS 20. Not ready to extubate. 09/04: Tachypnea related to anxiety? or metabolic acidosis. Will check VBG. Not tolerating SBT. Anemia. Transfuse during HD. 09/05: Remains very tachypneic on SBTs. Unable to extubate. Objective Vital Signs Date Time Temp Pulse Resp B/P Pulse Ox O2 Delivery O2 Flow Rate FiO2 09/05/16 06:00 112 09/05/16 04:16 99 40 09/05/16 04:00 98.6 22 140/64 09/04/16 19:00 Mechanical Ventilator 09/02/16 07:00 15.00 Intake and Output 09/04/16 09/04/16 09/05/16 08:00 16:00 00:00 Intake Total 887 ml 1458 ml 276 ml Output Total 320 ml 3730 ml 285 ml Balance 567 ml -2272 ml -9 ml Result Diagram: 09/05/16 0443 09/05/16 0443 Imaging Last Impressions Chest X-Ray 09/01/16 0631 Signed Impressions: Service Date/Time: Thursday, September 01, 2016 06:39 - CONCLUSION: 1. Right internal jugular catheter tip in good position. No evidence of pneumothorax. 2. Persistent bilateral lower lung infiltrates, left greater than right. Evelio Boyd MD Abdomen/Pelvis CT 08/29/16 0000 Signed Impressions: Service Date/Time: Monday, August 29, 2016 17:12 - CONCLUSION: Post surgical changes following partial colon resection. Persistent pockets of fluid. Largest is located in the pelvis and contains an air-fluid level. Abscess formation cannot be excluded. Small bowel ileus Bibasilar airspace disease and pleural effusions Aakash Iqbal MD Abdomen X-Ray 08/24/16 0000 Signed Impressions: Service Date/Time: August 07:44 - CONCLUSION: Gaseous distention of multiple bowel loops possible ileus. Jony Miller MD Enema w/Water Soluble 08/23/16 0000 Signed Impressions: Service Date/Time: Tuesday, August 23, 2016 10:12 - CONCLUSION: Anastomosis appears patent without extravasation. Aditya Rocha MD FACR CT Angiography 08/21/16 0000 Signed Impressions: Service Date/Time: Sunday, August 21, 2016 14:05 - CONCLUSION: 1. There is no evidence for central pulmonary emboli. 2. Minimal subcutaneous air as well as free intraperitoneal air. Aditya Rocah MD FACR Objective Remarks GENERAL: 56-year-old orotracheally intubated in no acute distress SKIN: Warm, flushed. HEAD: Atraumatic. Normocephalic. ENT: Orotracheally intubated NECK: Trachea midline. No JVD or lymphadenopathy. Right IJ hemodialysis catheter site clean dry and intact. CARDIOVASCULAR: Tachycardic, RR. S1, S2. Without murmurs, gallops, or rubs. RESPIRATORY: Orally intubated on mechanical ventilation, scattered rhonchi, no wheezing. GASTROINTESTINAL: Abdomen distended. Midline incision clean and intact. Bilateral SERGEI drains at the flanks with sero-sanguinous output. Ileostomy viability noted. MUSCULOSKELETAL: Extremities with 1+ bilateral upper and lower extremity edema, well perfused. NEUROLOGICAL: Lightly sedated for vent synchrony, opens eyes to voice but not following commands currently. Pupils equal round and reactive 2 mm bilaterally Date of Insertion: Aug 31, 2016 Line: Central Venous Catheter Side: Right Location: Subclavian A/P Assessment and Plan NEURO/PSYCH: History of anxiety -On Sedation and pain control with Versed as needed and fentanyl infusions for analgesia. -Goal of RASS -2 -Daily sedation vacation, follow neuro status. - Acetaminophen for fever RESP: Acute hypoxemic respiratory failure COPD exacerbation Probable healthcare associated pneumonia -Continue ACV 22/600 0.75/8/50 Ventilator bundle -Albuterol nebs every 4 hours scheduled and when necessary, Symbicort 2 puffs every 12 was discontinued while in ventilator. Continue Pulmicort twice a day -Broad-spectrum antibiotics as below -Continue daily C Pap trials. Dr. Renteria/Pulmonary following CV: Hypotension secondary to septic shock resolved History of hypertension -Received multiple fluid boluses on 08/25. IV fluids discontinued subsequently in view of anuria necessitating hemodialysis. On TPN at 65 cc an hour Off all vasopressors -Attempt negative fluid balance with hemodialysis. GI/ Nutrition: Anastomotic leak status post exploratory laparotomy, I&D, loop ileostomy 08/24/16 s/p Laparoscopic robotic extensive ANNA MARIE, robotic LAR and small bowel resection Laparoscopic robotic ANNA MARIE, robotic LAR and small bowel resection with anastomotic leak History of diverticulitis -Status post exploratory laparotomy, I&D, loop ileostomy 08/24/16 -Postoperative management per Dr. Moffett. Broad-spectrum antibiotics as below. Left SERGEI drain 5 cc. Right SEGREI 25 cc. positive ostomy output CT abdomen pelvis with oral contrast 08/29 reveal small bowel ileus. Serous fluid collection likely postoperative changes. - On Reglan to improve GI motility -Started on TPN 08/25 at 65 cc an hour with lipids daily Protonix for GI prophylaxis According drain to right lower quadrant 09/01 by IR. -160 Renal/: Acute kidney injury History BPH Status post bilateral ureteral stents placed by Dr. Fraser 08/18 -Monitor renal function closely. Mg catheter. -IV fluids discontinued in view of anuric renal failure and hyperkalemia necessitating hemodialysis. Nephrology consulted and following. -Attempt maintaining even to slightly negative fluid balance if blood pressure permits. New right IJ hemodialysis catheter placed 09/01 ID: Anastomotic leak Sepsis Probable HCAP -IV vancomycin, Flagyl and Levaquin per Dr. Moffett. Levaquin discontinued . Zosyn started 09/02. Flagyl micafungin per ID added. Left-sided SERGEI drain with bloody output. Pertinent culture 09/01: Abdominal wound - Pseudomonas 08/31 - line culture Pseudomonas/coag negative staph 08/31 - blood cultures 2 -no growth 08/31 - sputum - pending 08/29 - wound - Pseudomonas, group D enterococcus, C. albicans and yeast 08/25 blood cultures - no growth 08/25 sputum - Serratia/Klebsiella/Pseudomonas 08/24 - wound - no growth 09/01 - wound Pseudomonas, Enterococcus, Iram HEME: Leukocytosis Normocytic anemia -Monitor CBC, CMP, coags ENDO: -Sliding-scale insulin for glycemic control. 30 units sliding scale past 24 hours. Levemir 30 units twice a day PROPH: -Bilateral lower extremity SCDs. Heparin subcutaneous for DVT prophylaxis.. Protonix for GI prophylaxis LINES: -Left subclavian central line placed in the OR 08/24 - 08/31. Right subclavian central line placed 08/31 - RIJ dialysis catheter 08/25 -08/31. New right IJ hemodialysis catheter 09/01 Overall impression: Critically ill with several organs dysfunctional and remains ventilator dependent. Will assess nutritional status. Unable to wean from ventilator. Prealbumin 20 - adequate at this stage of recovery, follow nutrition closely. Critical Care 36 mins Mando Brown MD Sep 05, 2016 07:27
[2016-09-05] MEDS: RESP: BUDESONIDE 0.5 MG/2 ML NEB NEB SCH ×2 (07:47→19:49)
[2016-09-05] MEDS: CHLORHEXIDINE 0.12% (ORAL KIT) 15 ML CUP MT SCH ×2 (08:03→19:46)
[2016-09-05] MEDS: MICAFUNGIN INJ 100 MG in SODIUM CHLORIDE 0.9% INJ 100 ML IV SCH (08:04)
[2016-09-05] MEDS: CEFEPIME INJ 2,000 MG in SODIUM CHLORIDE 0.9% INJ 100 ML IV SCH (08:04)
[2016-09-05] MEDS: PANTOPRAZOLE SODIUM 40 MG VIAL IVP SCH (08:19)
[2016-09-05] MEDS: HEPARIN SODIUM - SQ 10,000 UNITS/ML VIAL SQ SCH ×2 (08:19→19:45)
[2016-09-05] MEDS: amLODIPine BESYLATE 5 MG TAB PO SCH (08:19)
[2016-09-05] MEDS: INSULIN DETEMIR 100 UNITS/ML VIAL SQ SCH ×2 (08:20→19:46)
[2016-09-05] MEDS: SODIUM CHLORIDE 0.9% FLUSH 5 ML FLUSH IVF SCH ×2 (08:20→19:45)
[2016-09-05] MEDS: MUPIROCIN 2% OINT 1 APPLIC/GM SYR EACH NARE SCH ×2 (08:20→19:46)
--- NOTE | 2016-09-05 12:29 | HHI.IDPN ---
Note Infectious Disease Note Notes reviewed. Patient is on the vent. Sedated. Afebrile. WBC lower. Little henry secretions. PAST MEDICAL HISTORY 1. Diverticulitis. 2. COPD. 3. Hypertension. 4. Anxiety disorder. 5. BPH. 6. History of tonsillectomy. ALLERGIES No known drug allergies. ANTIBIOTICS 1. Cefepime. 2. Zosyn 3. Vancomycin. 4. Micafungin. 5. Metronidazole. SOCIAL HISTORY The patient is a smoker of one pack of cigarettes a day. No alcohol. No illicit drugs. OBJECTIVE: Vital Signs Date Time Temp Pulse Resp B/P Pulse Ox O2 Delivery O2 Flow Rate FiO2 09/05/16 11:10 94 40 09/05/16 10:27 40 09/05/16 07:48 97 40 09/05/16 06:00 112 09/05/16 04:16 99 40 09/05/16 04:00 98.6 101 22 140/64 96 09/05/16 04:00 101 09/05/16 04:00 40 09/05/16 02:00 124 09/05/16 00:57 97 40 09/05/16 00:00 98.3 109 22 139/66 95 09/05/16 00:00 40 09/05/16 00:00 109 09/04/16 22:00 111 09/04/16 21:00 99 40 09/04/16 20:00 100 09/04/16 20:00 40 09/04/16 20:00 99.3 99 22 113/56 100 09/04/16 19:00 98 Mechanical Ventilator 40 09/04/16 18:00 99 09/04/16 16:00 99.0 101 22 95/50 99 09/04/16 16:00 40 09/04/16 16:00 100 09/04/16 15:50 98 40 09/04/16 14:00 100 09/04/16 12:38 97 40 09/04/16 09/04/16 09/05/16 15:00 23:00 07:00 Intake Total 1458 ml 276 ml 1106 ml Output Total 3730 ml 285 ml 430 ml Balance -2272 ml -9 ml 676 ml IV Total 710 ml 276 ml 174 ml TPN/PPN 650 ml 808 ml Lipid 98 ml 124 ml Output Urine Total 10 ml 50 ml 25 ml Stool Total 25 ml 50 ml Gastric Drainage Total 100 ml 175 ml 200 ml Drainage Total 120 ml 35 ml 155 ml Hemodialysis 3500 ml Laboratory Tests Test 09/04/16 09/05/16 08:15 04:43 White Blood Count 22.9 TH/MM3 18.6 TH/MM3 Red Blood Count 2.71 MIL/MM3 2.39 MIL/MM3 Hemoglobin 7.7 GM/DL 6.8 GM/DL Hematocrit 23.0 % 20.5 % Mean Corpuscular Volume 84.9 FL 85.6 FL Mean Corpuscular Hemoglobin 28.3 PG 28.5 PG Mean Corpuscular Hemoglobin 33.3 % 33.3 % Concent Red Cell Distribution Width 15.1 % 14.8 % Platelet Count 278 TH/MM3 241 TH/MM3 Mean Platelet Volume 8.7 FL 8.7 FL Neutrophils (%) (Auto) 85.7 % 86.6 % Lymphocytes (%) (Auto) 4.8 % 4.3 % Monocytes (%) (Auto) 7.8 % 7.9 % Eosinophils (%) (Auto) 1.3 % 0.7 % Basophils (%) (Auto) 0.4 % 0.5 % Neutrophils # (Auto) 19.6 TH/MM3 16.1 TH/MM3 Lymphocytes # (Auto) 1.1 TH/MM3 0.8 TH/MM3 Monocytes # (Auto) 1.8 TH/MM3 1.5 TH/MM3 Eosinophils # (Auto) 0.3 TH/MM3 0.1 TH/MM3 Basophils # (Auto) 0.1 TH/MM3 0.1 TH/MM3 CBC Comment AUTO DIFF AUTO DIFF Differential Total Cells 100 100 Counted Neutrophils % (Manual) 60 % 71 % Band Neutrophils % 11 % 22 % Lymphocytes % 12 % 3 % Monocytes % 8 % 1 % Neutrophils # (Manual) 18.3 TH/MM3 17.9 TH/MM3 Metamyelocytes 2 % 3 % Myelocytes 7 % Differential Comment FINAL DIFF FINAL DIFF MANUAL MANUAL Toxic Granulation 1+ Platelet Estimate NORMAL NORMAL Platelet Morphology Comment NORMAL CLUMPED Target Cells 1+ Rouleau PRESENT Laboratory Tests Test 09/04/16 09/05/16 08:15 04:43 Sodium Level 132 MEQ/L 136 MEQ/L Potassium Level 5.4 MEQ/L 4.6 MEQ/L Chloride Level 99 MEQ/L 97 MEQ/L Carbon Dioxide Level 20.7 MEQ/L 26.1 MEQ/L Anion Gap 12 MEQ/L 13 MEQ/L Blood Urea Nitrogen 125 MG/DL 87 MG/DL Creatinine 7.33 MG/DL 5.85 MG/DL Estimat Glomerular Filtration 8 ML/MIN 10 ML/MIN Rate Random Glucose 189 MG/DL 183 MG/DL Calcium Level 8.6 MG/DL 8.3 MG/DL Prealbumin 20 MG/DL Microbiology Date/Time Procedure Status Source Growth 08/31/16 15:40 Wound Culture - Final Complete Catheter Tip Central Venous Line Pseudomonas Species Staph Sp Coagulase Negative 08/31/16 15:40 Fungal Culture - Final Complete Catheter Tip Central Venous Line 09/01/16 13:45 Gram Stain - Final Complete Abscess Abdomen 09/01/16 13:45 Wound Culture - Final Complete Pseudomonas Aeruginosa Enterococcus Faecalis Iram [facility] Imaging: Chest X-Ray 09/03/16 0600 Signed Impressions: Service Date/Time: Saturday, September 03, 2016 04:03 - CONCLUSION: Stable left lower lobe consolidation and right lower lung infiltrates. Evelio Boyd MD Retroperitoneal Abscess Drainage 09/01/16 0600 Signed Impressions: Service Date/Time: Thursday, September 01, 2016 13:05 - CONCLUSION: Uncomplicated CT guided drainage of a right lower quadrant fluid collection. Approximately 75 cc of fecal-like brown material was aspirated. The air and fluid collection may communicate with the inferior aspect of the midline wound on the anterior abdominal wall. Claude Carrasco MD Abdomen/Pelvis CT 08/29/16 0000 Signed Impressions: Service Date/Time: Monday, August 29, 2016 17:12 - CONCLUSION: Post surgical changes following partial colon resection. Persistent pockets of fluid. Largest is located in the pelvis and contains an air-fluid level. Abscess formation cannot be excluded. Small bowel ileus Bibasilar airspace disease and pleural effusions Aakash Iqbal MD Abdomen X-Ray 08/24/16 0000 Signed Impressions: Service Date/Time: August 07:44 - CONCLUSION: Gaseous distention of multiple bowel loops possible ileus. Jony Miller MD Enema w/Water Soluble 08/23/16 0000 Signed Impressions: Service Date/Time: Tuesday, August 23, 2016 10:12 - CONCLUSION: Anastomosis appears patent without extravasation. Aditya Rocha MD FACR CT Angiography 08/21/16 0000 Signed Impressions: Service Date/Time: Sunday, August 21, 2016 14:05 - CONCLUSION: 1. There is no evidence for central pulmonary emboli. 2. Minimal subcutaneous air as well as free intraperitoneal air. Aditya Rocha MD FACR PHYSICAL EXAMINATION GENERAL: Sedated on the ventilator. HEENT: The oropharynx is intubated. no icterus. NECK: No adenopathy or swelling. LUNGS: Bilateral rhonchi same. HEART: Regular rate and rhythm. No audible murmurs, rubs or gallops. ABDOMEN: Distended. Diminished bowel sounds. Wound vac in place has henry colored drainage. Positive serous drainage from the SERGEI drains. scant from L. abdomen. EXTREMITIES: No clubbing or cyanosis. 1-2+ edema. Distal pulses 2+. SKIN: Warm and moist. No rash. NEUROLOGIC: Unable to fully assess. IMPRESSION 1. Sepsis. Pseudomonas on CVL culture of removed line. 2. Peritonitis. Post abdominal surgery/Bowel resection - enterococcus, pseudomonas and yeast. 3. Pneumonia due to gram-negative bacteria with sputum culture showing Serratia, Klebsiella and Pseudomonas. New culture has pseudomonas. 4. Leukocytosis secondary to infection. WBC still elevated. 5. Acute renal failure. 6. Acute respiratory failure. Difficulty weaning vent. RECOMMENDATIONS 1. Continue Cefepime. 2. Continue PIP/Tazobactam. 3. Continue vancomycin. 4. Continue micafungin. 5. Continue metronidazole. 6. Monitor white blood cell count and temp. 7. Follow clinical status. D/W RN. Tim Apodaca MD Sep 05, 2016 12:29
[2016-09-05 12:54] LABS: REVIEW FLAG FINAL
[2016-09-05] MEDS: VANCOMYCIN INJ 1,000 MG in SODIUM CHLOR 0.9% 250 ML INJ 250 ML IV SCH (13:01)
--- NOTE | 2016-09-05 13:53 | HHI.PR ---
Subjective Remarks WBC decreased markedly. Remains intubated,off pressors. Wound vac in place. Being dialized at bedside again today. Objective Vital Signs Date Time Temp Pulse Resp B/P Pulse Ox O2 Delivery O2 Flow Rate FiO2 09/05/16 11:10 94 40 09/05/16 10:27 40 09/05/16 07:48 97 40 09/05/16 06:00 112 09/05/16 04:16 99 40 09/05/16 04:00 98.6 101 22 140/64 96 09/05/16 04:00 101 09/05/16 04:00 40 09/05/16 02:00 124 09/05/16 00:57 97 40 09/05/16 00:00 98.3 109 22 139/66 95 09/05/16 00:00 40 09/05/16 00:00 109 09/04/16 22:00 111 09/04/16 21:00 99 40 09/04/16 20:00 100 09/04/16 20:00 40 09/04/16 20:00 99.3 99 22 113/56 100 09/04/16 19:00 98 Mechanical Ventilator 40 09/04/16 18:00 99 09/04/16 16:00 99.0 101 22 95/50 99 09/04/16 16:00 40 09/04/16 16:00 100 09/04/16 15:50 98 40 09/04/16 14:00 100 I/O 09/04/16 09/04/16 09/04/16 09/05/16 09/05/16 09/05/16 07:00 15:00 23:00 07:00 15:00 23:00 Intake Total 887 ml 1458 ml 276 ml 1106 ml Output Total 320 ml 3730 ml 285 ml 430 ml Balance 567 ml -2272 ml -9 ml 676 ml IV Total 353 ml 710 ml 276 ml 174 ml TPN/PPN 463 ml 650 ml 808 ml Lipid 71 ml 98 ml 124 ml Output Urine Total 30 ml 10 ml 50 ml 25 ml Stool Total 50 ml 25 ml 50 ml Gastric Drainage Total 150 ml 100 ml 175 ml 200 ml Drainage Total 90 ml 120 ml 35 ml 155 ml Hemodialysis 3500 ml Result Diagram: 09/05/16 1245 09/05/16 0443 Objective Remarks VS-S Abd: obese,distended,stooling from Ileostomy. Wound vac in place. No skin cellulitis. Upper wound yehuda remain. SubQ from upper part open and draining thru wound vac adequately.New drain much peanut cleaner looking. LLQ drain more serous, less brown. RUQ drain remains sero-sanguinous. Assessment and Plan Assessment and Plan Stable Resp failure. ARF.Wound infection with fascial separation. Clean with wound vac in place. All drains in place. Pt remains critical but stable. WBC markedly better.Transfused today. Ok to start tube feeds.Continue to support multiple organ system failures. Claude Flores MD Sep 05, 2016 13:53
[2016-09-05] MEDS: PROPOFOL 1000 MG/100 ML IV SCH ×2 (14:35→23:24)
--- NOTE | 2016-09-05 15:45 | HHI.NPPN ---
Subjective Renal Failure: Acute Interval History Transfused today for anemia. He remains intubated, sedated, anuric. Dialyzed yesterday, still has extensive fluid overload. (Fransisca Canela) Review of Systems General General Remarks unable to evaluate (Fransisca Canela) Objective Data Data 09/04/16 09/05/16 19:00 07:00 Intake Total 1458 ml 1382 ml Output Total 3730 ml 715 ml Balance -2272 ml 667 ml IV Total 710 ml 450 ml TPN/PPN 650 ml 808 ml Lipid 98 ml 124 ml Output Urine Total 10 ml 75 ml Stool Total 75 ml Gastric Drainage Total 100 ml 375 ml Drainage Total 120 ml 190 ml Hemodialysis 3500 ml Vital Signs Date Time Temp Pulse Resp B/P Pulse Ox O2 Delivery O2 Flow Rate FiO2 09/05/16 14:00 114 09/05/16 12:00 112 09/05/16 12:00 98.9 112 27 154/76 100 09/05/16 12:00 40 09/05/16 11:10 94 40 09/05/16 10:27 40 09/05/16 10:00 114 09/05/16 08:00 40 09/05/16 08:00 98.8 107 22 144/77 99 09/05/16 08:00 105 09/05/16 07:48 97 40 09/05/16 06:00 112 09/05/16 04:16 99 40 09/05/16 04:00 98.6 101 22 140/64 96 09/05/16 04:00 101 09/05/16 04:00 40 09/05/16 02:00 124 09/05/16 00:57 97 40 09/05/16 00:00 98.3 109 22 139/66 95 09/05/16 00:00 40 09/05/16 00:00 109 09/04/16 22:00 111 09/04/16 21:00 99 40 09/04/16 20:00 100 09/04/16 20:00 40 09/04/16 20:00 99.3 99 22 113/56 100 09/04/16 19:00 98 Mechanical Ventilator 40 09/04/16 18:00 99 09/04/16 16:00 99.0 101 22 95/50 99 09/04/16 16:00 40 09/04/16 16:00 100 09/04/16 15:50 98 40 (Fransisca Canela) -: 09/05/16 1245 09/05/16 0443 Imaging Last 72 hours Impressions Chest X-Ray 09/03/16 0600 Signed Impressions: Service Date/Time: Saturday, September 03, 2016 04:03 - CONCLUSION: Stable left lower lobe consolidation and right lower lung infiltrates. Evelio Boyd MD Tubes & Lines: Vas-Cath, Mg Tubes & Lines Comment TLC, Drip Comment fentanyl, TPN, lipids (Fransisca Canela) Physical Exam General Appearance: Well Developed, Well Nourished, No Acute Distress Appearance Remarks intubated, sedated (Fransisca Canela) Throat Throat Exam: Oral Mucosa [place] & Moist (Fransisca Canela) Pulmonary Resp Exam: Breath Sounds Equal, No Distress, Crackles, Diminished Breath Sounds Resp Remarks vented (Fransisca Canela) Cardiology CV Exam: Regular, Normal Sinus Rhythm (Fransisca Canela) Gastrointestinal/Abdomen GI Exam: Distended GI Remarks distended, firm; colostomy with protruding beefy red stoma; hyperactive bowel sounds (Fransisca Canela) Musculoskeletal MS Exam: Joints Intact, Normal Tone (Fransisca Canela) Integumentary Skin Exam: Warm, Dry Skin Remarks below umbilicus, midabdominal wound has dehisced (Fransisca Canela) Extremeties Extremities Exam: Pedal Pulses Palpable, Moderate Edema Extremeties Remarks extensive fluid overload (Fransisca Canela) Neurologic Neuro Exam: Unresponsive, Sedated (Fransisca Canela) VTE Prophylaxis Device: SCDs (Fransisca Canela) Assessment/Plan Discussed Condition With: Son Assessment Summary: VIRIDIANA/Acute Renal Failure, Acute Tubular Necrosis Problem List: (1) Acute renal failure Plan: in a pt with normal renal function at baseline oliguric renal failure, ATN from sepsis and renal hypoperfusion HD started 08/25; now on schedule 3L UF yesterday.He has extensive fluid overload repeat HD today he is now anuric Electrolytes stable avoid IVF; monitor fluid volume status, attempt negative balance monitor BP, pressors to maintain MAP although he has not been requiring pressors daily renal panel, await renal recovery (2) Diverticulitis Plan: s/p colon resection with complications surgery following, appreciate recommendations continue present antibiotics including vancomycin, flagyl, cefepime, micafungin ID following Levaquin has been stopped TPN infusing; he is NPO Plan p (Fransisca Canela) Plan patient was seen and examined. Fluid overload and high waste products. We will dialyze him again today. Prognosis remains guarded. (Tito Kuo MD) Problem Qualifiers (1) Acute renal failure: Qualified Code: N17.0 - Acute renal failure with tubular necrosis Fransisca Canela Sep 05, 2016 15:45 Tito Kuo MD Sep 05, 2016 20:53
[2016-09-05] MEDS: FAT EMULSION 20% INJ 250 ML (@10 mls/hr) IV-CENTRAL SCH (19:45)
--- NOTE | 2016-09-05 19:59 | HHI.PR ---
Subjective Remarks YOAA male with robotic surgery,COPD exac Underwent exp lap,I&d and loop iliostomy placement Remains on vent Sedated .On AC 22, Fi02 40% Had HD today Objective Vital Signs Vital Signs Date Time Temp Pulse Resp B/P Pulse Ox O2 Delivery O2 Flow Rate FiO2 09/05/16 19:52 99 40 09/05/16 18:00 109 09/05/16 16:50 99 40 09/05/16 16:00 110 09/05/16 16:00 40 09/05/16 16:00 99.1 110 23 135/80 99 09/05/16 14:00 114 09/05/16 12:00 112 09/05/16 12:00 98.9 112 27 154/76 100 09/05/16 12:00 40 09/05/16 11:13 98.9 09/05/16 11:10 94 40 09/05/16 10:27 40 09/05/16 10:00 114 09/05/16 09:37 98.8 09/05/16 08:00 40 09/05/16 08:00 98.8 107 22 144/77 99 09/05/16 08:00 105 09/05/16 07:48 97 40 09/05/16 06:00 112 09/05/16 04:16 99 40 09/05/16 04:00 98.6 101 22 140/64 96 09/05/16 04:00 101 09/05/16 04:00 40 09/05/16 02:00 124 09/05/16 00:57 97 40 09/05/16 00:00 98.3 109 22 139/66 95 09/05/16 00:00 40 09/05/16 00:00 109 09/04/16 22:00 111 09/04/16 21:00 99 40 09/04/16 20:00 100 09/04/16 20:00 40 09/04/16 20:00 99.3 99 22 113/56 100 I/O 09/04/16 09/04/16 09/04/16 09/05/16 09/05/16 09/05/16 07:00 15:00 23:00 07:00 15:00 23:00 Intake Total 887 ml 1458 ml 276 ml 1106 ml 1365 ml Output Total 320 ml 3730 ml 285 ml 430 ml 392 ml 4300 ml Balance 567 ml -2272 ml -9 ml 676 ml 973 ml -4300 ml IV Total 353 ml 710 ml 276 ml 174 ml 402 ml TPN/PPN 463 ml 650 ml 808 ml 540 ml Lipid 71 ml 98 ml 124 ml 83 ml Packed Cells 250 ml Other 90 ml Output Urine Total 30 ml 10 ml 50 ml 25 ml 30 ml Stool Total 50 ml 25 ml 50 ml 75 ml Gastric Drainage Total 150 ml 100 ml 175 ml 200 ml 100 ml Drainage Total 90 ml 120 ml 35 ml 155 ml 187 ml Hemodialysis 3500 ml 4300 ml Result Diagram: 09/05/16 1245 09/05/16 0443 Objective Remarks GENERAL: WBWN obese male, on Vent , sedated SKIN: Warm and dry. HEAD: Normocephalic. EYES: No scleral icterus. No injection or drainage. NECK: Supple, trachea midline. No JVD or lymphadenopathy. CARDIOVASCULAR: Regular rate and rhythm without murmurs, gallops, or rubs. RESPIRATORY: Breath sounds equal bilaterally. No accessory muscle use. exp rhonchi GASTROINTESTINAL: Abdomen soft, non-tender, Abd distended MUSCULOSKELETAL: No cyanosis, or edema. BACK: Nontender without obvious deformity. No CVA tenderness. A/P Assessment and Plan Resp Failure, on vent COPD exac S/p robotic surgery Anxiety S/p Exp lap PLAN: Cont vent support,ACV, Fi02 40% aerosol nebs Nebuliser rx qid and prn Abx per ID Cefepime,Levaquin,Flagyl,Micafungin and vanco Fentanyl and Diprivan for sedation. Not ready for weaning Robbie Renteria MD Sep 05, 2016 19:59
[2016-09-05] MEDS: SODIUM ACETATE IV-CENTRAL SCH ×9 (20:43)
[2016-09-05] MEDS: SODIUM CHLORIDE IV-CENTRAL SCH ×9 (20:43)
[2016-09-05] MEDS: [UNRECOGNIZED DRUG - OTHER] IV-CENTRAL SCH ×9 (20:43)
[2016-09-06] VITALS (19 sets, daily range): BP systolic 136–176; BP diastolic 71–82; PULSE 90–122; RESP 22–26; TEMP 98.6–99.4; O2SAT 97–100
[2016-09-06] MEDS: PROPOFOL 1000 MG/100 ML IV SCH (00:14)
[2016-09-06] MEDS: metroNIDAZOLE 500 MG TAB PO SCH ×4 (00:14→17:58)
[2016-09-06] MEDS: RESP: ALBUTEROL 2.5 MG/3 ML NEB (SCH) INH ×6 (03:52→23:58)
[2016-09-06] MEDS: PIPERACIL-TAZO 2.25 GM PREMIX 50 ML IV SCH ×2 (04:00→16:47)
[2016-09-06] MEDS: INSULIN ASPART SUPPLEMENTAL SCALE SQ SCH ×6 (04:00→20:00)
[2016-09-06] MEDS: METOCLOPRAMIDE HCL 10 MG/2 ML VIAL IV PUSH SCH ×3 (06:14→21:34)
[2016-09-06] MEDS: cloNIDine HCL 0.1 MG TAB PO SCH ×3 (06:15→21:35)
[2016-09-06 07:15] LABS: AUTOMATED NEUTROPHIL # 16.1 TH/MM3 (1.8-7.7); BASOPHIL # 0.2 TH/MM3 (0-0.2); EOSINOPHIL # 0.2 TH/MM3 (0-0.4); HEMATOCRIT 23.7 % (39.0-51.0); LYMPH % 5.9 % (9.0-44.0); LYMPHOCYTE # 1.1 TH/MM3 (1.0-4.8); MEAN CELL VOLUME 84.2 FL (80.0-100.0); MEAN CORPUSCULAR HEMOGLOBIN 28.3 PG (27.0-34.0); MEAN CORPUSCULAR HGB CONC 33.6 % (32.0-36.0); MONO % 8.4 % (0.0-8.0); NEUT % 83.7 % (16.0-70.0); PLATELET COUNT 273 TH/MM3 (150-450); RED BLOOD COUNT 2.81 MIL/MM3 (4.50-5.90); RED CELL DISTRIBUTION WIDTH 15.1 % (11.6-17.2); WHITE BLOOD COUNT 19.2 TH/MM3 (4.0-11.0)
[2016-09-06 07:16] LABS: HEMO FLAGS AUTO DIFF
[2016-09-06 07:26] LABS: BICARBONATE 26.5 MEQ/L (21.0-32.0); POTASSIUM 4.5 MEQ/L (3.5-5.1)
[2016-09-06] MEDS: RESP: BUDESONIDE 0.5 MG/2 ML NEB NEB SCH ×2 (07:31→20:14)
[2016-09-06 07:52] LABS: BANDS 14 % (0-6); EOSINOPHILS 2 % (0-4); METAMYELOCYTES 1 % (0-1); MYELOCYTES 10 % (0-0); POLYS (SEG NEUTROPHILS) 53 % (16-70); WBC DIFF SAMPLE 100
[2016-09-06 07:53] LABS: PLATELET ESTIMATE SMEAR NORMAL (NORMAL); PLATELET MORPHOLOGY NORMAL (NORMAL); SCAN/DIFF FINAL DIFF MANUAL; STOMATOCYTES 1+ (NORMAL)
[2016-09-06] MEDS: CEFEPIME INJ 2,000 MG in SODIUM CHLORIDE 0.9% INJ 100 ML IV SCH (07:55)
[2016-09-06] MEDS: CHLORHEXIDINE 0.12% (ORAL KIT) 15 ML CUP MT SCH ×2 (07:55→19:50)
[2016-09-06] MEDS: MICAFUNGIN INJ 100 MG in SODIUM CHLORIDE 0.9% INJ 100 ML IV SCH (08:15)
[2016-09-06] MEDS: PANTOPRAZOLE SODIUM 40 MG VIAL IVP SCH (08:16)
[2016-09-06] MEDS: SODIUM CHLORIDE 0.9% FLUSH 5 ML FLUSH IVF SCH ×2 (08:16→20:27)
[2016-09-06] MEDS: MUPIROCIN 2% OINT 1 APPLIC/GM SYR EACH NARE SCH ×2 (08:16→19:51)
[2016-09-06] MEDS: HEPARIN SODIUM - SQ 10,000 UNITS/ML VIAL SQ SCH ×2 (08:16→19:51)
[2016-09-06] MEDS: amLODIPine BESYLATE 5 MG TAB PO SCH (08:16)
[2016-09-06] MEDS: INSULIN DETEMIR 100 UNITS/ML VIAL SQ SCH ×2 (08:17→19:51)
--- NOTE | 2016-09-06 09:13 | HHI.PR ---
Subjective . Remains stable. Drainage from tubes more clear. Objective . VS-S Abd: unchanged. Wound vac Assessment/Plan . Stable Continued support. TFs,Continue Dialysis to remove fluid. Claude Flores MD Sep 06, 2016 09:13
--- NOTE | 2016-09-06 10:42 | HHI.CCPN ---
Subjective Remarks/Hospital Course 08/25: Patient is a 58-year-old male with past medical history significant COPD who, on 08/18/16, underwent Laparoscopic robotic extensive lysis of adhesions, low anterior resection and small bowel resection. Apparently he was brought in by Dr. Moffett for Diverticulitis. Patient has a history of hypertension, COPD, and continues to smoke one pack of cigarettes a day. Postoperatively patient became progressively short of breath. Pulmonary was consulted on 08/21/16 as the patient was becoming more hypoxemic requiring BiPAP. CT of the chest PE protocol did not show any pulmonary embolism. Patient was placed on breathing treatments and IV Solu-Medrol 40 mg every [address] Renteria. Today a.m. patient was on 100% nonrebreather. Patient was diagnosed with an anastomotic leak today and was taken back to the OR by Dr. Moffett. He underwent exploratory laparotomy, I&D and loop ileostomy today. Postop patient remained hypoxemic requiring 70% oxygen, and hence was left intubated and critical care medicine was consulted. Dr. Arce evaluated the patient in ICU. He remained hypoxemic, FiO2 70%. Chest x-ray shows bibasilar mild infiltrates. On sedation lightening patient became very hypertensive, not following commands probably secondary to residual NM blockade received while being transported to ICU. Patient on receiving vancomycin Levaquin and Flagyl per Dr. Moffett. Dr. Arce added cefepime to cover for Pseudomonas. Holding Solu-Medrol due to anastomotic leak. 08/26: Remains sedated, orally intubated on mechanical ventilation. Went into anuric renal failure yesterday which did not respond to fluid boluses and diuretics hence was started on hemodialysis after placement of right IJ Vas- Cath. Currently sedated, arousable, remains orally intubated on mechanical ventilation. Blood pressure borderline last evening following dialysis for which she was started on low-dose vasopressin 0.03 units per minute and Levophed which is currently at 1 jose per minute. Started on TPN last night following which he has been hyperglycemic. 08/27: Sedated, arousable, orally intubated on mechanical ventilation. Spiking fevers overnight. Off Levophed, transiently off vasopressin. Remains on TPN. 08/28: Remains sedated, arousable, orally intubated on mechanical ventilation. On low-dose vasopressin. TPN continues. Made about 500 cc of urine in the last 24 hours. 08/29: In sedated, arousable, orally intubated on mechanical ventilation. Remains on TPN. Dirty drainage from left-sided SERGEI drain noted overnight. Dr. Moffett obtaining CT abdomen pelvis with oral contrast and ID consulted. 08/30: CURRENT TEMPERATURE 99. Status post 4 L hemodialysis today. No current change in therapy. White blood cell count remained stable. Off vasopressors. Arousable to voice. Versed has been discontinued. We'll attempt CPAP trials again today. 08/31: MAXIMUM TEMPERATURE 100.4. Currently 100.1. Currently resting in bed in no acute distress. Continues with scant drainage from bilateral JPs. We'll attempt CPAP trial again today. Positive stool from ostomy bag 09/01: Tmax 99.8. Currently 99.3. Placement of the new right IJ vas catheter today. Plan for IR to possibly drain right lower quadrant fluid collection. Arousable and moves all 4 extremity spontaneously. Subjective 09/02: Currently afebrile. Noted placement of iron drain with accordion drain. Growing Pseudomonas. Lasted only 2 hours on CPAP trials today. 09/03: Tolerated SBT for only 30 mins and required PS 20. Not ready to extubate. 09/04: Tachypnea related to anxiety? or metabolic acidosis. Will check VBG. Not tolerating SBT. Anemia. Transfuse during HD. 09/05: Remains very tachypneic on SBTs. Unable to extubate. 09/06: Leukocytosis and bandemia. Acts like ongoing sepsis. Objective Vital Signs Date Time Temp Pulse Resp B/P Pulse Ox O2 Delivery O2 Flow Rate FiO2 09/06/16 09:00 40 09/06/16 08:58 100 09/06/16 08:00 98.6 98 23 149/80 09/04/16 19:00 Mechanical Ventilator 09/02/16 07:00 15.00 Intake and Output 09/05/16 09/05/16 09/06/16 08:00 16:00 00:00 Intake Total 1106 ml 1365 ml 1122 ml Output Total 430 ml 4692 ml 250 ml Balance 676 ml -3327 ml 872 ml Result Diagram: 09/06/16 0645 09/06/16 0645 Imaging Last Impressions Chest X-Ray 09/01/16 06 Signed Impressions: Service Date/Time: Thursday, September 01, 2016 06:39 - CONCLUSION: 1. Right internal jugular catheter tip in good position. No evidence of pneumothorax. 2. Persistent bilateral lower lung infiltrates, left greater than right. Evelio Boyd MD Abdomen/Pelvis CT 08/29/16 0000 Signed Impressions: Service Date/Time: Monday, August 29, 2016 17:12 - CONCLUSION: Post surgical changes following partial colon resection. Persistent pockets of fluid. Largest is located in the pelvis and contains an air-fluid level. Abscess formation cannot be excluded. Small bowel ileus Bibasilar airspace disease and pleural effusions Aakash Iqbal MD Abdomen X-Ray 08/24/16 0000 Signed Impressions: Service Date/Time: August 07:44 - CONCLUSION: Gaseous distention of multiple bowel loops possible ileus. Jony Miller MD Enema w/Water Soluble 08/23/16 0000 Signed Impressions: Service Date/Time: Tuesday, August 23, 2016 10:12 - CONCLUSION: Anastomosis appears patent without extravasation. Aditya Rocha MD FACR CT Angiography 08/21/16 0000 Signed Impressions: Service Date/Time: Sunday, August 21, 2016 14:05 - CONCLUSION: 1. There is no evidence for central pulmonary emboli. 2. Minimal subcutaneous air as well as free intraperitoneal air. Aditya Rocha MD FACR Objective Remarks GENERAL: 56-year-old orotracheally intubated in no acute distress SKIN: Warm, flushed. HEAD: Atraumatic. Normocephalic. ENT: Orotracheally intubated NECK: Trachea midline. No JVD or lymphadenopathy. Right IJ hemodialysis catheter site clean dry and intact. CARDIOVASCULAR: Tachycardic, RR. S1, S2. Without murmurs, gallops, or rubs. RESPIRATORY: Orally intubated on mechanical ventilation, scattered rhonchi, no wheezing. GASTROINTESTINAL: Abdomen distended. Midline incision clean and intact. Bilateral SERGEI drains at the flanks with sero-sanguinous output. Ileostomy viability noted. MUSCULOSKELETAL: Extremities with 1+ bilateral upper and lower extremity edema, well perfused. NEUROLOGICAL: Lightly sedated for vent synchrony, opens eyes to voice but not following commands currently. Pupils equal round and reactive 2 mm bilaterally Date of Insertion: Aug 31, 2016 Line: Central Venous Catheter Side: Right Location: Subclavian A/P Assessment and Plan NEURO/PSYCH: History of anxiety -On Sedation and pain control with Versed as needed and fentanyl infusions for analgesia. -Goal of RASS -2 -Daily sedation vacation, follow neuro status. - Acetaminophen for fever RESP: Acute hypoxemic respiratory failure COPD exacerbation Probable healthcare associated pneumonia -Continue ACV 22/600 0.75/8/50 Ventilator bundle -Albuterol nebs every 4 hours scheduled and when necessary, Symbicort 2 puffs every 12 was discontinued while in ventilator. Continue Pulmicort twice a day -Broad-spectrum antibiotics as below -Continue daily C Pap trials. Dr. Renteria/Pulmonary following CV: Hypotension secondary to septic shock resolved History of hypertension -Received multiple fluid boluses on 08/25. IV fluids discontinued subsequently in view of anuria necessitating hemodialysis. On TPN at 65 cc an hour Off all vasopressors -Attempt negative fluid balance with hemodialysis. GI/ Nutrition: Anastomotic leak status post exploratory laparotomy, I&D, loop ileostomy 08/24/16 s/p Laparoscopic robotic extensive ANNA MARIE, robotic LAR and small bowel resection Laparoscopic robotic ANNA MARIE, robotic LAR and small bowel resection with anastomotic leak History of diverticulitis -Status post exploratory laparotomy, I&D, loop ileostomy 08/24/16 -Postoperative management per Dr. Moffett. Broad-spectrum antibiotics as below. Left SERGEI drain 5 cc. Right SERGEI 25 cc. positive ostomy output CT abdomen pelvis with oral contrast 08/29 reveal small bowel ileus. Serous fluid collection likely postoperative changes. - On Reglan to improve GI motility -Started on TPN 08/25 at 65 cc an hour with lipids daily Protonix for GI prophylaxis According drain to right lower quadrant 09/01 by IR. -160 Renal/: Acute kidney injury History BPH Status post bilateral ureteral stents placed by Dr. Fraser 08/18 -Monitor renal function closely. Mg catheter. -IV fluids discontinued in view of anuric renal failure and hyperkalemia necessitating hemodialysis. Nephrology consulted and following. -Attempt maintaining even to slightly negative fluid balance if blood pressure permits. New right IJ hemodialysis catheter placed 09/01 ID: Anastomotic leak Sepsis Probable HCAP -IV vancomycin, Flagyl and Levaquin per Dr. Moffett. Levaquin discontinued 3/ 11. Zosyn started 09/02. Flagyl micafungin per ID added. Left-sided SERGEI drain with bloody output. Pertinent culture 09/01: Abdominal wound - Pseudomonas 08/31 - line culture Pseudomonas/coag negative staph 08/31 - blood cultures 2 -no growth 08/31 - sputum - pending 08/29 - wound - Pseudomonas, group D enterococcus, C. albicans and yeast 08/25 blood cultures - no growth 08/25 sputum - Serratia/Klebsiella/Pseudomonas 08/24 - wound - no growth 09/01 - wound Pseudomonas, Enterococcus, Iram HEME: Leukocytosis Normocytic anemia -Monitor CBC, CMP, coags ENDO: -Sliding-scale insulin for glycemic control. 30 units sliding scale past 24 hours. Levemir 30 units twice a day PROPH: -Bilateral lower extremity SCDs. Heparin subcutaneous for DVT prophylaxis.. Protonix for GI prophylaxis LINES: -Left subclavian central line placed in the OR 08/24 - 08/31. Right subclavian central line placed 08/31 - RIJ dialysis catheter 08/25 -08/31. New right IJ hemodialysis catheter 09/01 Overall impression: Critically ill with several organs dysfunctional and remains ventilator dependent. Will assess nutritional status. Unable to wean from ventilator. Critical Care 33 mins Mando Brown MD Sep 06, 2016 10:42
--- NOTE | 2016-09-06 14:46 | HHI.NPPN ---
Subjective General Problems: Edema Renal Failure: Acute Interval History Tachypneic and tachycardic, not tolerating CPAP. Remains anuric. (Fransisca Canela) Review of Systems General General Remarks unable to evaluate (Fransisca Canela) Objective Data Data 09/05/16 09/06/16 19:00 07:00 Intake Total 1365 ml 1860 ml Output Total 4692 ml 470 ml Balance -3327 ml 1390 ml IV Total 402 ml 412 ml Tube Feeding 232 ml TPN/PPN 540 ml 825 ml Lipid 83 ml 151 ml Packed Cells 250 ml Other 90 ml 240 ml Output Urine Total 30 ml 20 ml Stool Total 75 ml 300 ml Gastric Drainage Total 100 ml Drainage Total 187 ml 150 ml Hemodialysis 4300 ml Vital Signs Date Time Temp Pulse Resp B/P Pulse Ox O2 Delivery O2 Flow Rate FiO2 09/06/16 12:00 98.8 114 25 176/82 98 09/06/16 12:00 40 09/06/16 12:00 108 09/06/16 11:14 97 40 09/06/16 10:00 107 09/06/16 09:00 40 09/06/16 08:58 100 40 09/06/16 08:54 40 09/06/16 08:00 40 09/06/16 08:00 98.6 98 23 149/80 98 09/06/16 08:00 98 09/06/16 07:32 99 40 09/06/16 06:00 103 09/06/16 04:00 107 09/06/16 04:00 99.1 107 22 148/74 98 09/06/16 04:00 40 09/06/16 03:52 97 40 09/06/16 02:00 98 09/06/16 01:28 98 40 09/06/16 00:00 99.3 107 24 136/71 98 09/06/16 00:00 40 09/06/16 00:00 107 09/05/16 22:00 107 09/05/16 20:00 40 09/05/16 20:00 98.6 109 27 155/84 98 09/05/16 20:00 109 09/05/16 19:52 99 40 09/05/16 18:00 109 09/05/16 16:50 99 40 09/05/16 16:00 110 09/05/16 16:00 40 09/05/16 16:00 99.1 110 23 135/80 99 (Fransisca Canela) -: 09/06/16 0645 09/06/16 0645 Imaging Last Impressions Chest X-Ray 09/03/16 0600 Signed Impressions: Service Date/Time: Saturday, September 03, 2016 04:03 - CONCLUSION: Stable left lower lobe consolidation and right lower lung infiltrates. Evelio Boyd MD Retroperitoneal Abscess Drainage 09/01/16 0600 Signed Impressions: Service Date/Time: Thursday, September 01, 2016 13:05 - CONCLUSION: Uncomplicated CT guided drainage of a right lower quadrant fluid collection. Approximately 75 cc of fecal-like brown material was aspirated. The air and fluid collection may communicate with the inferior aspect of the midline wound on the anterior abdominal wall. Claude Carrasco MD Abdomen/Pelvis CT 08/29/16 0000 Signed Impressions: Service Date/Time: Monday, August 29, 2016 17:12 - CONCLUSION: Post surgical changes following partial colon resection. Persistent pockets of fluid. Largest is located in the pelvis and contains an air-fluid level. Abscess formation cannot be excluded. Small bowel ileus Bibasilar airspace disease and pleural effusions Aakash Iqbal MD Abdomen X-Ray 08/24/16 0000 Signed Impressions: Service Date/Time: August 07:44 - CONCLUSION: Gaseous distention of multiple bowel loops possible ileus. Jony Miller MD Enema w/Water Soluble 08/23/16 0000 Signed Impressions: Service Date/Time: Tuesday, August 23, 2016 10:12 - CONCLUSION: Anastomosis appears patent without extravasation. Aditya Rocha MD FACR CT Angiography 08/21/16 0000 Signed Impressions: Service Date/Time: Sunday, August 21, 2016 14:05 - CONCLUSION: 1. There is no evidence for central pulmonary emboli. 2. Minimal subcutaneous air as well as free intraperitoneal air. Aditya Rocha MD FACR Tubes & Lines: Vas-Cath, Mg Tubes & Lines Comment TLC, NG tube, SERGEI drain RLQ Drip Comment fentanyl, TPN, lipids (Fransisca Canela) Physical Exam General Appearance: Well Developed, Well Nourished, No Acute Distress Appearance Remarks intubated, sedated but agitated (Fransisca Canela) Throat Throat Exam: Oral Mucosa [place] & Moist (Fransisca Canela) Pulmonary Resp Exam: Breath Sounds Equal, No Distress, Crackles, Sputum, Diminished Breath Sounds Resp Remarks vented, increased secretions (Fransisca Canela) Cardiology CV Exam: Normal Sinus Rhythm, Tachycardia (Fransisca Canela) Gastrointestinal/Abdomen GI Exam: Distended GI Remarks distended, firm; colostomy with protruding beefy red stoma; hyperactive bowel sounds (Fransisca Canela) Musculoskeletal MS Exam: Joints Intact, Normal Tone (Fransisca Canela) Integumentary Skin Exam: Warm, Dry Skin Remarks below umbilicus, midabdominal wound has dehisced (Fransisca Canela) Extremeties Extremities Exam: Pedal Pulses Palpable, Moderate Edema Extremeties Remarks extensive fluid overload (Fransisca Canela) Neurologic Neuro Exam: Unresponsive, Sedated (Fransisca Canela) VTE Prophylaxis Device: SCDs (Fransisca Canela) Assessment/Plan Discussed Condition With: Son Assessment Summary: VIRIDIANA/Acute Renal Failure, Acute Tubular Necrosis, Fluid/ Volume Overload Problem List: (1) Acute renal failure Plan: in a pt with normal renal function at baseline oliguric renal failure, ATN from sepsis and renal hypoperfusion HD started 08/25; now on schedule he had extra HD Sunday for fluid removal, 4300 ml UF he has negative fluid balance but remains edematous HD later today remains anuric Electrolytes stable although phosphorus was elevated, but NPO so begin binders when able avoid IVF; monitor fluid volume status, continue negative balance monitor BP, pressors to maintain MAP although he has not been requiring them daily renal panel, await renal recovery (2) Diverticulitis Plan: s/p colon resection with complications surgery following, appreciate recommendations multiple positive cultures of wound, catheter tip, and sputum continue present antibiotics including vancomycin, flagyl, cefepime, micafungin ID following Levaquin has been stopped TPN infusing; he is NPO (Fransisca Canela) Plan patient was seen and examined. Oligoanuric. Dialysis dependent. Fluid overload persists but improved. Dialysis tomorrow. (Tito Kuo MD) Problem Qualifiers (1) Acute renal failure: Qualified Code: N17.0 - Acute renal failure with tubular necrosis Fransisca Canela Sep 06, 2016 14:46 Tito Kuo MD Sep 06, 2016 20:08
[2016-09-06] MEDS: LORazepam 2 MG/ML VIAL IV PUSH PRN (15:02)
[2016-09-06] MEDS ORDERED: SODIUM CHLOR 0.9% 1000 ML INJ 1,000 ML IV PRN ×2 (16:06)
[2016-09-06] MEDS ORDERED: NITROGLYCERIN 0.4 MG SL 25 TABS/BTL SL PRN (16:15)
[2016-09-06] MEDS ORDERED: SODIUM CHLORIDE 0.9% FLUSH 5 ML FLUSH IVF PRN (16:15)
[2016-09-06] MEDS ORDERED: cloNIDine HCL 0.1 MG TAB PO PRN (16:15)
[2016-09-06] MEDS ORDERED: diphenhydrAMINE HCL 25 MG CAP PO PRN (16:15)
[2016-09-06] MEDS ORDERED: MANNITOL 12.5 GM/50 ML VIAL IV PRN (16:15)
[2016-09-06] MEDS ORDERED: ONDANSETRON HCL 4 MG/2 ML VIAL IV PRN (16:15)
[2016-09-06] MEDS ORDERED: GELATIN 12 MM/7 MM FOAM TOP PRN (16:15)
[2016-09-06] MEDS: RESP: ALBUTEROL 2.5 MG/IPRATROPIUM 0.5 MG NEB (PRN) NEB ×2 (16:32→20:14)
[2016-09-06] MEDS: SODIUM CHLOR 0.9% 1000 ML INJ 1,000 ML IV PRN (16:54)
[2016-09-06] MEDS: GENTAMICIN SULFATE (DIALYSIS USE ONLY) 20 MG/2 ML VIAL IV PRN (16:54)
[2016-09-06] MEDS: HEPARIN SODIUM - IV 10,000 UNITS/10 ML VIAL PRN (16:55)
[2016-09-06] MEDS: ALBUMIN HUMAN 25% 25 GM/100 ML BAGP IV PRN ×2 (16:55→16:56)
[2016-09-06] MEDS: VANCOMYCIN INJ 1,000 MG in SODIUM CHLOR 0.9% 250 ML INJ 250 ML IV SCH (16:55)
[2016-09-06] MEDS: fentaNYL 2,500 MCG/NS 250 ML IV SCH (18:10)
[2016-09-06] MEDS: FAT EMULSION 20% INJ 250 ML (@10 mls/hr) IV-CENTRAL SCH (19:50)
[2016-09-06] MEDS: [UNRECOGNIZED DRUG - OTHER] IV-CENTRAL SCH ×9 (19:50)
[2016-09-06] MEDS: SODIUM CHLORIDE IV-CENTRAL SCH ×9 (19:50)
[2016-09-06] MEDS: SODIUM ACETATE IV-CENTRAL SCH ×9 (19:50)
--- NOTE | 2016-09-06 21:31 | HHI.PR ---
Subjective Remarks YOAA male with robotic surgery,COPD exac Underwent exp lap,I&d and loop iliostomy placement Remains on vent Sedated with fentanyl and Diprivan .On AC 22, Fi02 40% Had HD today Tolerated CPAP 1 hr Objective Vital Signs Vital Signs Date Time Temp Pulse Resp B/P Pulse Ox O2 Delivery O2 Flow Rate FiO2 09/06/16 20:16 98 40 09/06/16 20:00 99.4 111 26 140/77 100 09/06/16 20:00 122 09/06/16 20:00 40 09/06/16 18:00 105 09/06/16 16:32 100 40 09/06/16 16:00 40 09/06/16 16:00 108 09/06/16 16:00 98.9 108 23 151/77 100 09/06/16 14:00 106 09/06/16 12:00 98.8 114 25 176/82 98 09/06/16 12:00 40 09/06/16 12:00 108 09/06/16 11:14 97 40 09/06/16 10:00 107 09/06/16 09:00 40 09/06/16 08:58 100 40 09/06/16 08:54 40 09/06/16 08:00 40 09/06/16 08:00 98.6 98 23 149/80 98 09/06/16 08:00 98 09/06/16 07:32 99 40 09/06/16 06:00 103 09/06/16 04:00 107 09/06/16 04:00 99.1 107 22 148/74 98 09/06/16 04:00 40 09/06/16 03:52 97 40 09/06/16 02:00 98 09/06/16 01:28 98 40 09/06/16 00:00 99.3 107 24 136/71 98 09/06/16 00:00 40 09/06/16 00:00 107 09/05/16 22:00 107 I/O 09/05/16 09/05/16 09/05/16 09/06/16 09/06/16 09/06/16 07:00 15:00 23:00 07:00 15:00 23:00 Intake Total 1106 ml 1365 ml 1122 ml 738 ml 1068 ml Output Total 430 ml 392 ml 4550 ml 220 ml 365 ml 4000 ml Balance 676 ml 973 ml -3428 ml 518 ml 703 ml -4000 ml IV Total 174 ml 402 ml 267 ml 145 ml 401 ml Tube Feeding 141 ml 91 ml 146 ml TPN/PPN 808 ml 540 ml 506 ml 319 ml 401 ml Lipid 124 ml 83 ml 88 ml 63 ml 80 ml Packed Cells 250 ml Other 90 ml 120 ml 120 ml 40 ml Output Urine Total 25 ml 30 ml 10 ml 10 ml 10 ml Stool Total 50 ml 75 ml 150 ml 150 ml 275 ml Gastric Drainage Total 200 ml 100 ml Drainage Total 155 ml 187 ml 90 ml 60 ml 80 ml Hemodialysis 4300 ml 4000 ml Result Diagram: 09/06/1664409/06/16644 Objective Remarks GENERAL: WBWN obese male, on Vent , sedated SKIN: Warm and dry. HEAD: Normocephalic. EYES: No scleral icterus. No injection or drainage. NECK: Supple, trachea midline. No JVD or lymphadenopathy. CARDIOVASCULAR: Regular rate and rhythm without murmurs, gallops, or rubs. RESPIRATORY: Breath sounds equal bilaterally. No accessory muscle use. exp rhonchi GASTROINTESTINAL: Abdomen soft, non-tender, Abd distended MUSCULOSKELETAL: No cyanosis, or edema. BACK: Nontender without obvious deformity. No CVA tenderness. A/P Assessment and Plan Resp Failure, on vent COPD exac S/p robotic surgery Anxiety S/p Exp lap PLAN: Cont vent support,ACV, Fi02 40% aerosol nebs Nebuliser rx qid and prn Abx per ID Cefepime,Levaquin,Flagyl,Micafungin and vanco Fentanyl and Diprivan for sedation. DW Son at [facility],Robbie Alston MD Sep 06, 2016 21:31
[2016-09-07] VITALS (19 sets, daily range): BP systolic 108–184; BP diastolic 58–97; PULSE 82–116; RESP 22–30; TEMP 98.4–99.5; O2SAT 97–100
[2016-09-07] MEDS: metroNIDAZOLE 500 MG TAB PO SCH ×4 (01:17→18:05)
[2016-09-07] MEDS: PROPOFOL 1000 MG/100 ML IV SCH ×3 (01:17→16:02)
[2016-09-07] MEDS: RESP: ALBUTEROL 2.5 MG/3 ML NEB (SCH) INH ×4 (03:47→19:16)
[2016-09-07] MEDS: INSULIN ASPART SUPPLEMENTAL SCALE SQ SCH ×6 (04:00→20:00)
[2016-09-07] MEDS: PIPERACIL-TAZO 2.25 GM PREMIX 50 ML IV SCH ×2 (04:00→16:02)
[2016-09-07] MEDS: METOCLOPRAMIDE HCL 10 MG/2 ML VIAL IV PUSH SCH ×3 (05:48→21:20)
[2016-09-07] MEDS: cloNIDine HCL 0.1 MG TAB PO SCH ×3 (05:48→21:20)
[2016-09-07] MEDS: RESP: BUDESONIDE 0.5 MG/2 ML NEB NEB SCH ×2 (07:21→19:16)
--- NOTE | 2016-09-07 08:35 | HHI.NPPN ---
Subjective General Problems: Edema Renal Failure: Acute Interval History underwent dialysis yesterday. 4 liters removed. Remains on the vent. Very little urine output. Review of Systems General General Remarks unable to evaluate Objective Data Data 09/06/16 09/07/16 19:00 07:00 Intake Total 1068 ml 1811 ml Output Total 365 ml 4334 ml Balance 703 ml -2523 ml IV Total 401 ml 427 ml Tube Feeding 146 ml 285 ml TPN/PPN 401 ml 767 ml Lipid 80 ml 152 ml Other 40 ml 180 ml Output Urine Total 10 ml 10 ml Stool Total 275 ml 250 ml Drainage Total 80 ml 74 ml Hemodialysis 4000 ml Vital Signs Date Time Temp Pulse Resp B/P Pulse Ox O2 Delivery O2 Flow Rate FiO2 09/07/16 07:21 100 40 09/07/16 06:00 93 09/07/16 04:00 40 09/07/16 04:00 98.8 98 22 128/68 100 09/07/16 04:00 98 09/07/16 03:47 98 40 09/07/16 02:00 89 09/07/16 01:15 98 40 09/07/16 00:00 40 09/07/16 00:00 99.3 109 22 172/90 98 09/07/16 00:00 109 09/06/16 22:00 90 09/06/16 20:16 98 40 09/06/16 20:00 99.4 111 26 140/77 100 09/06/16 20:00 122 09/06/16 20:00 40 09/06/16 18:00 105 09/06/16 16:32 100 40 09/06/16 16:00 40 09/06/16 16:00 108 09/06/16 16:00 98.9 108 23 151/77 100 09/06/16 14:00 106 09/06/16 12:00 98.8 114 25 176/82 98 09/06/16 12:00 40 09/06/16 12:00 108 09/06/16 11:14 97 40 09/06/16 10:00 107 09/06/16 09:00 40 09/06/16 08:58 100 40 09/06/16 08:54 40 -: 09/06/16 0645 09/06/16 0645 Tubes & Lines: Vas-Cath, Mg Tubes & Lines Comment TLC, NG tube, SERGEI drain RLQ Drip Comment fentanyl, TPN, lipids Physical Exam General Appearance: Well Developed, Well Nourished, No Acute Distress Throat Throat Exam: Oral Mucosa [place] & Moist Pulmonary Resp Exam: Breath Sounds Equal, No Distress, Crackles, Sputum, Diminished Breath Sounds Cardiology CV Exam: Normal Sinus Rhythm, Tachycardia Gastrointestinal/Abdomen GI Exam: Distended Musculoskeletal MS Exam: Joints Intact, Normal Tone Integumentary Skin Exam: Warm, Dry Extremeties Extremities Exam: Pedal Pulses Palpable, Moderate Edema Neurologic Neuro Exam: Unresponsive, Sedated VTE Prophylaxis Device: SCDs Assessment/Plan Discussed Condition With: Son Assessment Summary: VIRIDIANA/Acute Renal Failure, Acute Tubular Necrosis, Fluid/ Volume Overload Problem List: (1) Acute renal failure Plan: He has developed ATN due to sepsis. HD initiated on 08/25. Needs dialysis more than 3 times/week as he is essentially anuric, and has signs of fluid overload. Dialysis tomorrow, and again on Sunday. Avoid nephrotoxic agents. (2) Diverticulitis Plan: s/p colon resection with complications surgery following. multiple positive cultures of wound, catheter tip, and sputum ID following, managing antibiotics. He is on Cefepime, Micafungin, Zosyn and Vancomycin. TPN infusing; he is NPO Problem Qualifiers (1) Acute renal failure: Qualified Code: N17.0 - Acute renal failure with tubular necrosis Tito Kuo MD Sep 07, 2016 08:35
[2016-09-07] MEDS: HEPARIN SODIUM - SQ 10,000 UNITS/ML VIAL SQ SCH ×2 (08:41→21:20)
[2016-09-07] MEDS: MICAFUNGIN INJ 100 MG in SODIUM CHLORIDE 0.9% INJ 100 ML IV SCH (08:42)
[2016-09-07] MEDS: CEFEPIME INJ 2,000 MG in SODIUM CHLORIDE 0.9% INJ 100 ML IV SCH (08:42)
[2016-09-07] MEDS: INSULIN DETEMIR 100 UNITS/ML VIAL SQ SCH ×2 (08:47→21:00)
[2016-09-07] MEDS: PANTOPRAZOLE SODIUM 40 MG VIAL IVP SCH (08:49)
[2016-09-07] MEDS: amLODIPine BESYLATE 5 MG TAB PO SCH (08:53)
[2016-09-07] MEDS: MUPIROCIN 2% OINT 1 APPLIC/GM SYR EACH NARE SCH ×2 (08:53→21:20)
[2016-09-07] MEDS: CHLORHEXIDINE 0.12% (ORAL KIT) 15 ML CUP MT SCH ×2 (08:59→21:19)
[2016-09-07] MEDS: SODIUM CHLORIDE 0.9% FLUSH 5 ML FLUSH IVF SCH ×2 (09:06→21:21)
--- NOTE | 2016-09-07 09:31 | HHI.CCPN ---
Subjective Remarks/Hospital Course 08/25: Patient is a 58-year-old male with past medical history significant COPD who, on 08/18/16, underwent Laparoscopic robotic extensive lysis of adhesions, low anterior resection and small bowel resection. Apparently he was brought in by Dr. Moffett for Diverticulitis. Patient has a history of hypertension, COPD, and continues to smoke one pack of cigarettes a day. Postoperatively patient became progressively short of breath. Pulmonary was consulted on 08/21/16 as the patient was becoming more hypoxemic requiring BiPAP. CT of the chest PE protocol did not show any pulmonary embolism. Patient was placed on breathing treatments and IV Solu-Medrol 40 mg every [address] Renteria. Today a.m. patient was on 100% nonrebreather. Patient was diagnosed with an anastomotic leak today and was taken back to the OR by Dr. Moffett. He underwent exploratory laparotomy, I&D and loop ileostomy today. Postop patient remained hypoxemic requiring 70% oxygen, and hence was left intubated and critical care medicine was consulted. Dr. Arce evaluated the patient in ICU. He remained hypoxemic, FiO2 70%. Chest x-ray shows bibasilar mild infiltrates. On sedation lightening patient became very hypertensive, not following commands probably secondary to residual NM blockade received while being transported to ICU. Patient on receiving vancomycin Levaquin and Flagyl per Dr. Moffett. Dr. Arce added cefepime to cover for Pseudomonas. Holding Solu-Medrol due to anastomotic leak. 08/26: Remains sedated, orally intubated on mechanical ventilation. Went into anuric renal failure yesterday which did not respond to fluid boluses and diuretics hence was started on hemodialysis after placement of right IJ Vas- Cath. Currently sedated, arousable, remains orally intubated on mechanical ventilation. Blood pressure borderline last evening following dialysis for which she was started on low-dose vasopressin 0.03 units per minute and Levophed which is currently at 1 jose per minute. Started on TPN last night following which he has been hyperglycemic. 08/27: Sedated, arousable, orally intubated on mechanical ventilation. Spiking fevers overnight. Off Levophed, transiently off vasopressin. Remains on TPN. 08/28: Remains sedated, arousable, orally intubated on mechanical ventilation. On low-dose vasopressin. TPN continues. Made about 500 cc of urine in the last 24 hours. 08/29: In sedated, arousable, orally intubated on mechanical ventilation. Remains on TPN. Dirty drainage from left-sided SERGEI drain noted overnight. Dr. Moffett obtaining CT abdomen pelvis with oral contrast and ID consulted. 08/30: CURRENT TEMPERATURE 99. Status post 4 L hemodialysis today. No current change in therapy. White blood cell count remained stable. Off vasopressors. Arousable to voice. Versed has been discontinued. We'll attempt CPAP trials again today. 08/31: MAXIMUM TEMPERATURE 100.4. Currently 100.1. Currently resting in bed in no acute distress. Continues with scant drainage from bilateral JPs. We'll attempt CPAP trial again today. Positive stool from ostomy bag 09/01: Tmax 99.8. Currently 99.3. Placement of the new right IJ vas catheter today. Plan for IR to possibly drain right lower quadrant fluid collection. Arousable and moves all 4 extremity spontaneously. Subjective 09/02: Currently afebrile. Noted placement of iron drain with accordion drain. Growing Pseudomonas. Lasted only 2 hours on CPAP trials today. 09/03: Tolerated SBT for only 30 mins and required PS 20. Not ready to extubate. 09/04: Tachypnea related to anxiety? or metabolic acidosis. Will check VBG. Not tolerating SBT. Anemia. Transfuse during HD. 09/05: Remains very tachypneic on SBTs. Unable to extubate. 09/06: Leukocytosis and bandemia. Acts like ongoing sepsis. 09/07: No significant changes. Afebrile. Tolerating TFs as recommended by CRS. Will transition from TPN to enteral feeds now. Objective Vital Signs Date Time Temp Pulse Resp B/P Pulse Ox O2 Delivery O2 Flow Rate FiO2 09/07/16 07:21 100 40 09/07/16 06:00 93 09/07/16 04:00 98.8 22 128/68 09/04/16 19:00 Mechanical Ventilator Intake and Output 09/06/16 09/06/16 09/07/16 08:00 16:00 00:00 Intake Total 738 ml 1068 ml 853 ml Output Total 220 ml 365 ml 4165 ml Balance 518 ml 703 ml -3312 ml Result Diagram: 09/06/16 0645 09/06/16644 Imaging Last Impressions Chest X-Ray 09/01/16 0626 Signed Impressions: Service Date/Time: Thursday, September 01, 2016 06:39 - CONCLUSION: 1. Right internal jugular catheter tip in good position. No evidence of pneumothorax. 2. Persistent bilateral lower lung infiltrates, left greater than right. Evelio Boyd MD Abdomen/Pelvis CT 08/29/16 0000 Signed Impressions: Service Date/Time: Monday, August 29, 2016 17:12 - CONCLUSION: Post surgical changes following partial colon resection. Persistent pockets of fluid. Largest is located in the pelvis and contains an air-fluid level. Abscess formation cannot be excluded. Small bowel ileus Bibasilar airspace disease and pleural effusions Aakash Iqbal MD Abdomen X-Ray 08/24/16 0000 Signed Impressions: Service Date/Time: August 07:44 - CONCLUSION: Gaseous distention of multiple bowel loops possible ileus. Jony Miller MD Enema w/Water Soluble 08/23/16 0000 Signed Impressions: Service Date/Time: Tuesday, August 23, 2016 10:12 - CONCLUSION: Anastomosis appears patent without extravasation. Aditya Rocha MD FACR CT Angiography 08/21/16 0000 Signed Impressions: Service Date/Time: Sunday, August 21, 2016 14:05 - CONCLUSION: 1. There is no evidence for central pulmonary emboli. 2. Minimal subcutaneous air as well as free intraperitoneal air. Aditya Rocha MD FACR Objective Remarks GENERAL: 56-year-old orotracheally intubated in no acute distress SKIN: Warm. HEAD: Atraumatic. Normocephalic. ENT: Orotracheally intubated NECK: Trachea midline. Right IJ hemodialysis catheter site clean dry and intact. CARDIOVASCULAR: Tachycardic, RR. S1, S2. Without murmurs, gallops, or rubs. RESPIRATORY: Orally intubated on mechanical ventilation, scattered rhonchi, no wheezing. GASTROINTESTINAL: Abdomen mildly distended. Midline incision clean and intact. MUSCULOSKELETAL: Extremities with 1+ bilateral upper and lower extremity edema, well perfused. NEUROLOGICAL: Lightly sedated for vent synchrony, opens eyes to voice but not following commands currently. Pupils equal round and reactive 2 mm bilaterally Date of Insertion: Aug 31, 2016 Line: Central Venous Catheter Side: Right Location: Subclavian A/P Assessment and Plan NEURO/PSYCH: History of anxiety -On Sedation and pain control with Versed as needed and fentanyl infusions for analgesia. -Goal of RASS -2 -Daily sedation vacation, follow neuro status. - Acetaminophen for fever RESP: Acute hypoxemic respiratory failure COPD exacerbation Probable healthcare associated pneumonia -Continue ACV 22/600 0.75/8/50 Ventilator bundle -Albuterol nebs every 4 hours scheduled and when necessary, Symbicort 2 puffs every 12 was discontinued while in ventilator. Continue Pulmicort twice a day -Broad-spectrum antibiotics as below -Continue daily C Pap trials. Dr. Renteria/Pulmonary following CV: Hypotension secondary to septic shock resolved History of hypertension -Received multiple fluid boluses on 08/25. IV fluids discontinued subsequently in view of anuria necessitating hemodialysis. On TPN at 65 cc an hour Off all vasopressors -Attempt negative fluid balance with hemodialysis. GI/ Nutrition: Anastomotic leak status post exploratory laparotomy, I&D, loop ileostomy 08/24/16 s/p Laparoscopic robotic extensive ANNA MARIE, robotic LAR and small bowel resection Laparoscopic robotic ANNA MARIE, robotic LAR and small bowel resection with anastomotic leak History of diverticulitis -Status post exploratory laparotomy, I&D, loop ileostomy 08/24/16 -Postoperative management per Dr. Moffett. Broad-spectrum antibiotics as below. Left SERGEI drain 5 cc. Right SERGEI 25 cc. positive ostomy output CT abdomen pelvis with oral contrast 08/29 reveal small bowel ileus. Serous fluid collection likely postoperative changes. - On Reglan to improve GI motility -Started on TPN 08/25 at 65 cc an hour with lipids daily Protonix for GI prophylaxis According drain to right lower quadrant 09/01 by IR. -160 Renal/: Acute kidney injury History BPH Status post bilateral ureteral stents placed by Dr. Fraser 08/18 -Monitor renal function closely. Mg catheter. -IV fluids discontinued in view of anuric renal failure and hyperkalemia necessitating hemodialysis. Nephrology consulted and following. -Attempt maintaining even to slightly negative fluid balance if blood pressure permits. New right IJ hemodialysis catheter placed 09/01 ID: Anastomotic leak Sepsis Probable HCAP -IV vancomycin, Flagyl and Levaquin per Dr. Moffett. Levaquin discontinued . Zosyn started 09/02. Flagyl micafungin per ID added. Left-sided SERGEI drain with bloody output. Pertinent culture 09/01: Abdominal wound - Pseudomonas 08/31 - line culture Pseudomonas/coag negative staph 08/31 - blood cultures 2 -no growth 08/31 - sputum - pending 08/29 - wound - Pseudomonas, group D enterococcus, C. albicans and yeast 08/25 blood cultures - no growth 08/25 sputum - Serratia/Klebsiella/Pseudomonas 08/24 - wound - no growth 09/01 - wound Pseudomonas, Enterococcus, Iram HEME: Leukocytosis Normocytic anemia -Monitor CBC, CMP, coags ENDO: -Sliding-scale insulin for glycemic control. 30 units sliding scale past 24 hours. Levemir 30 units twice a day PROPH: -Bilateral lower extremity SCDs. Heparin subcutaneous for DVT prophylaxis.. Protonix for GI prophylaxis LINES: -Left subclavian central line placed in the OR 08/24 - 08/31. Right subclavian central line placed 08/31 - RIJ dialysis catheter 08/25 -08/31. New right IJ hemodialysis catheter 09/01 Overall impression: Critically ill with several organs dysfunctional and remains ventilator dependent. Unable to wean from ventilator. Transition to enetral nutrition per CRS. Critical Care 37 mins Mando Brown MD Sep 07, 2016 09:31
--- NOTE | 2016-09-07 13:44 | HHI.IDPN ---
Note Infectious Disease Note Notes reviewed. D/W RN. Patient is on the vent. Has been on CPAP greater than 3 hours today. Sedated. Responsive and follows commands. Afebrile. Little ET secretions. SERGEI drains with little drainage. PAST MEDICAL HISTORY 1. Diverticulitis. 2. COPD. 3. Hypertension. 4. Anxiety disorder. 5. BPH. 6. History of tonsillectomy. ALLERGIES No known drug allergies. ANTIBIOTICS 1. Cefepime. 2. Zosyn 3. Vancomycin. 4. Micafungin. 5. Metronidazole. SOCIAL HISTORY The patient is a smoker of one pack of cigarettes a day. No alcohol. No illicit drugs. OBJECTIVE: Vital Signs Date Time Temp Pulse Resp B/P Pulse Ox O2 Delivery O2 Flow Rate FiO2 09/07/16 12:24 97 40 09/07/16 09:46 99 40 09/07/16 09:46 40 09/07/16 07:21 100 40 09/07/16 06:00 93 09/07/16 04:00 40 09/07/16 04:00 98.8 98 22 128/68 100 09/07/16 04:00 98 09/07/16 03:47 98 40 09/07/16 02:00 89 09/07/16 01:15 98 40 09/07/16 00:00 40 09/07/16 00:00 99.3 109 22 172/90 98 09/07/16 00:00 109 09/06/16 22:00 90 09/06/16 20:16 98 40 09/06/16 20:00 99.4 111 26 140/77 100 09/06/16 20:00 122 09/06/16 20:00 40 09/06/16 18:00 105 09/06/16 16:32 100 40 09/06/16 16:00 40 09/06/16 16:00 108 09/06/16 16:00 98.9 108 23 151/77 100 09/06/16 14:00 106 09/06/16 09/06/16 09/07/16 15:00 23:00 07:00 Intake Total 1068 ml 853 ml 958 ml Output Total 365 ml 4165 ml 169 ml Balance 703 ml -3312 ml 789 ml IV Total 401 ml 218 ml 209 ml Tube Feeding 146 ml 141 ml 144 ml TPN/PPN 401 ml 362 ml 405 ml Lipid 80 ml 72 ml 80 ml Other 40 ml 60 ml 120 ml Output Urine Total 10 ml 5 ml 5 ml Stool Total 275 ml 100 ml 150 ml Drainage Total 80 ml 60 ml 14 ml Hemodialysis 4000 ml Laboratory Tests Test 09/06/16 06:45 White Blood Count 19.2 TH/MM3 Red Blood Count 2.81 MIL/MM3 Hemoglobin 8.0 GM/DL Hematocrit 23.7 % Mean Corpuscular Volume 84.2 FL Mean Corpuscular Hemoglobin 28.3 PG Mean Corpuscular Hemoglobin 33.6 % Concent Red Cell Distribution Width 15.1 % Platelet Count 273 TH/MM3 Mean Platelet Volume 8.6 FL Neutrophils (%) (Auto) 83.7 % Lymphocytes (%) (Auto) 5.9 % Monocytes (%) (Auto) 8.4 % Eosinophils (%) (Auto) 1.0 % Basophils (%) (Auto) 1.0 % Neutrophils # (Auto) 16.1 TH/MM3 Lymphocytes # (Auto) 1.1 TH/MM3 Monocytes # (Auto) 1.6 TH/MM3 Eosinophils # (Auto) 0.2 TH/MM3 Basophils # (Auto) 0.2 TH/MM3 CBC Comment AUTO DIFF Differential Total Cells 100 Counted Neutrophils % (Manual) 53 % Band Neutrophils % 14 % Lymphocytes % 13 % Monocytes % 7 % Eosinophils % 2 % Neutrophils # (Manual) 15.0 TH/MM3 Metamyelocytes 1 % Myelocytes 10 % Differential Comment FINAL DIFF MANUAL Platelet Estimate NORMAL Platelet Morphology Comment NORMAL Stomatocytes 1+ Laboratory Tests Test 09/06/16 06:45 Sodium Level 137 MEQ/L Potassium Level 4.5 MEQ/L Chloride Level 97 MEQ/L Carbon Dioxide Level 26.5 MEQ/L Anion Gap 14 MEQ/L Blood Urea Nitrogen 76 MG/DL Creatinine 5.48 MG/DL Estimat Glomerular Filtration 11 ML/MIN Rate Random Glucose 173 MG/DL Calcium Level 9.0 MG/DL Microbiology Date/Time Procedure Status Source Growth 08/31/16 15:40 Wound Culture - Final Complete Catheter Tip Central Venous Line Pseudomonas Species Staph Sp Coagulase Negative 08/31/16 15:40 Fungal Culture - Final Complete Catheter Tip Central Venous Line 09/01/16 13:45 Gram Stain - Final Complete Abscess Abdomen 09/01/16 13:45 Wound Culture - Final Complete Pseudomonas Aeruginosa Enterococcus Faecalis Iram [facility] Imaging: Chest X-Ray 09/03/16 0600 Signed Impressions: Service Date/Time: Saturday, September 03, 2016 04:03 - CONCLUSION: Stable left lower lobe consolidation and right lower lung infiltrates. Evelio Boyd MD Retroperitoneal Abscess Drainage 09/01/16 0600 Signed Impressions: Service Date/Time: Thursday, September 01, 2016 13:05 - CONCLUSION: Uncomplicated CT guided drainage of a right lower quadrant fluid collection. Approximately 75 cc of fecal-like brown material was aspirated. The air and fluid collection may communicate with the inferior aspect of the midline wound on the anterior abdominal wall. Claude Carrasco MD Abdomen/Pelvis CT 08/29/16 0000 Signed Impressions: Service Date/Time: Monday, August 29, 2016 17:12 - CONCLUSION: Post surgical changes following partial colon resection. Persistent pockets of fluid. Largest is located in the pelvis and contains an air-fluid level. Abscess formation cannot be excluded. Small bowel ileus Bibasilar airspace disease and pleural effusions Aakash Iqbal MD Abdomen X-Ray 08/24/16 0000 Signed Impressions: Service Date/Time: August 07:44 - CONCLUSION: Gaseous distention of multiple bowel loops possible ileus. Jony Miller MD Enema w/Water Soluble 08/23/16 0000 Signed Impressions: Service Date/Time: Tuesday, August 23, 2016 10:12 - CONCLUSION: Anastomosis appears patent without extravasation. Aditya Rocha MD FACR CT Angiography 08/21/16 0000 Signed Impressions: Service Date/Time: Sunday, August 21, 2016 14:05 - CONCLUSION: 1. There is no evidence for central pulmonary emboli. 2. Minimal subcutaneous air as well as free intraperitoneal air. Aditya Rocha MD FACR PHYSICAL EXAMINATION GENERAL: Sedated on the ventilator. Responsive. HEENT: The oropharynx is intubated. no icterus. NECK: No adenopathy or swelling. LUNGS: Bilateral Basilar rhonchi. HEART: Regular rate and rhythm. No audible murmurs, rubs or gallops. ABDOMEN: Distended. Diminished bowel sounds. Wound vac in place has henry colored drainage. Positive decreased serous drainage from the SERGEI drains. EXTREMITIES: No clubbing or cyanosis. 1-2+ edema. Distal pulses 2+. SKIN: Warm and moist. No rash. NEUROLOGIC: Unable to fully assess. IMPRESSION 1. Sepsis. Pseudomonas on CVL culture of removed line. 2. Peritonitis. Post abdominal surgery/Bowel resection - enterococcus, pseudomonas and yeast. 3. Pneumonia due to gram-negative bacteria with sputum culture showing Serratia, Klebsiella and Pseudomonas. New culture has pseudomonas. 4. Leukocytosis secondary to infection. WBC still elevated. 5. Acute renal failure. 6. Acute respiratory failure. Remains on vent. Appears stable on current antibiotics RECOMMENDATIONS 1. Continue Cefepime. 2. Continue PIP/Tazobactam. 3. Continue vancomycin. 4. Continue micafungin. 5. Continue metronidazole. 6. Monitor white blood cell count and temp. D/W RN. Tim Apodaca MD Sep 07, 2016 13:44
--- NOTE | 2016-09-07 16:54 | HHI.PR ---
Subjective Remarks YOAA male with robotic surgery,COPD exac Underwent exp lap,I&d and loop iliostomy placement Remains on vent Had HD today Tolerating CPAP Off sedation follows commands Objective Vital Signs Vital Signs Date Time Temp Pulse Resp B/P Pulse Ox O2 Delivery O2 Flow Rate FiO2 09/07/16 16:22 98 40 09/07/16 16:00 94 09/07/16 16:00 98.6 110 22 108/58 99 09/07/16 16:00 40 09/07/16 14:00 102 09/07/16 12:24 97 40 09/07/16 12:00 40 09/07/16 12:00 98.8 108 24 151/92 99 09/07/16 12:00 98 09/07/16 10:00 98 09/07/16 09:46 99 40 09/07/16 09:46 40 09/07/16 08:00 40 09/07/16 08:00 98.4 116 22 184/97 98 09/07/16 08:00 82 09/07/16 07:21 100 40 09/07/16 06:00 93 09/07/16 04:00 40 09/07/16 04:00 98.8 98 22 128/68 100 09/07/16 04:00 98 09/07/16 03:47 98 40 09/07/16 02:00 89 09/07/16 01:15 98 40 09/07/16 00:00 40 09/07/16 00:00 99.3 109 22 172/90 98 09/07/16 00:00 109 09/06/16 22:00 90 09/06/16 20:16 98 40 09/06/16 20:00 99.4 111 26 140/77 100 09/06/16 20:00 122 09/06/16 20:00 40 09/06/16 18:00 105 I/O 09/06/16 09/06/16 09/06/16 09/07/16 09/07/16 09/07/16 07:00 15:00 23:00 07:00 15:00 23:00 Intake Total 738 ml 1068 ml 853 ml 958 ml 953 ml Output Total 220 ml 365 ml 4165 ml 169 ml 30 ml Balance 518 ml 703 ml -3312 ml 789 ml 923 ml IV Total 145 ml 401 ml 218 ml 209 ml 651 ml Tube Feeding 91 ml 146 ml 141 ml 144 ml 302 ml TPN/PPN 319 ml 401 ml 362 ml 405 ml Lipid 63 ml 80 ml 72 ml 80 ml Other 120 ml 40 ml 60 ml 120 ml Output Urine Total 10 ml 10 ml 5 ml 5 ml Stool Total 150 ml 275 ml 100 ml 150 ml Drainage Total 60 ml 80 ml 60 ml 14 ml 30 ml Hemodialysis 4000 ml Result Diagram: 09/06/1664409/06/16644 Objective Remarks GENERAL: WBWN obese male, on Vent , sedated SKIN: Warm and dry. HEAD: Normocephalic. EYES: No scleral icterus. No injection or drainage. NECK: Supple, trachea midline. No JVD or lymphadenopathy. CARDIOVASCULAR: Regular rate and rhythm without murmurs, gallops, or rubs. RESPIRATORY: Breath sounds equal bilaterally. No accessory muscle use. exp rhonchi GASTROINTESTINAL: Abdomen soft, non-tender, Abd distended MUSCULOSKELETAL: No cyanosis, or edema. BACK: Nontender without obvious deformity. No CVA tenderness. A/P Assessment and Plan Resp Failure, on vent COPD exac S/p robotic surgery Anxiety S/p Exp lap PLAN: Cont vent support, CPAP 5/15 aerosol nebs Nebuliser rx qid and prn Abx per ID Cefepime,Levaquin,Flagyl,Micafungin and vanco Weaning parameters. Robbie Renteria MD Sep 07, 2016 16:54
[2016-09-07] MEDS: SODIUM CHLORIDE IV-CENTRAL SCH ×9 (20:00)
[2016-09-07] MEDS: [UNRECOGNIZED DRUG - OTHER] IV-CENTRAL SCH ×9 (20:00)
[2016-09-07] MEDS: SODIUM ACETATE IV-CENTRAL SCH ×9 (20:00)
[2016-09-07] MEDS: FAT EMULSION 20% INJ 250 ML (@10 mls/hr) IV-CENTRAL SCH (21:00)
[2016-09-07] MEDS: fentaNYL 2,500 MCG/NS 250 ML IV SCH (22:24)
[2016-09-08] VITALS (19 sets, daily range): BP systolic 118–166; BP diastolic 64–90; PULSE 86–111; RESP 22–27; TEMP 98.6–99.4; O2SAT 97–100
[2016-09-08] MEDS: RESP: ALBUTEROL 2.5 MG/3 ML NEB (SCH) INH ×6 (00:23→20:34)
[2016-09-08] MEDS: PROPOFOL 1000 MG/100 ML IV SCH ×2 (01:17→19:10)
[2016-09-08] MEDS: metroNIDAZOLE 500 MG TAB PO SCH ×4 (01:17→17:24)
[2016-09-08] MEDS: PIPERACIL-TAZO 2.25 GM PREMIX 50 ML IV SCH ×2 (03:11→14:34)
[2016-09-08] MEDS: INSULIN ASPART SUPPLEMENTAL SCALE SQ SCH ×6 (04:00→20:00)
[2016-09-08 05:23] LABS: BICARBONATE 27.4 MEQ/L (21.0-32.0); POTASSIUM 5.3 MEQ/L (3.5-5.1)
[2016-09-08] MEDS: METOCLOPRAMIDE HCL 10 MG/2 ML VIAL IV PUSH SCH (06:44)
[2016-09-08] MEDS: cloNIDine HCL 0.1 MG TAB PO SCH ×3 (06:44→21:10)
[2016-09-08] MEDS: RESP: BUDESONIDE 0.5 MG/2 ML NEB NEB SCH ×2 (07:41→20:34)
[2016-09-08] MEDS: VANCOMYCIN INJ 1,000 MG in SODIUM CHLOR 0.9% 250 ML INJ 250 ML IV SCH (08:20)
[2016-09-08] MEDS: SODIUM CHLOR 0.9% 1000 ML INJ 1,000 ML IV PRN (08:20)
[2016-09-08] MEDS: GENTAMICIN SULFATE (DIALYSIS USE ONLY) 20 MG/2 ML VIAL IV PRN (08:21)
[2016-09-08] MEDS: ALBUMIN HUMAN 25% 25 GM/100 ML BAGP IV PRN ×2 (08:21→08:22)
[2016-09-08] MEDS: HEPARIN SODIUM - IV 10,000 UNITS/10 ML VIAL PRN (08:21)
[2016-09-08] MEDS: PANTOPRAZOLE SODIUM 40 MG VIAL IVP SCH (08:45)
[2016-09-08] MEDS: MUPIROCIN 2% OINT 1 APPLIC/GM SYR EACH NARE SCH ×2 (08:45→21:10)
[2016-09-08] MEDS: HEPARIN SODIUM - SQ 10,000 UNITS/ML VIAL SQ SCH ×2 (08:46→21:10)
[2016-09-08] MEDS: INSULIN DETEMIR 100 UNITS/ML VIAL SQ SCH ×2 (09:00→21:10)
[2016-09-08] MEDS: CHLORHEXIDINE 0.12% (ORAL KIT) 15 ML CUP MT SCH ×2 (10:06→20:14)
[2016-09-08] MEDS: SODIUM CHLORIDE 0.9% FLUSH 5 ML FLUSH IVF SCH ×2 (10:07→20:14)
[2016-09-08] MEDS: CEFEPIME INJ 2,000 MG in SODIUM CHLORIDE 0.9% INJ 100 ML IV SCH (11:04)
[2016-09-08] MEDS: MICAFUNGIN INJ 100 MG in SODIUM CHLORIDE 0.9% INJ 100 ML IV SCH (11:05)
--- NOTE | 2016-09-08 11:54 | HHI.CCPN ---
Subjective Remarks/Hospital Course 08/25: Patient is a 58-year-old male with past medical history significant COPD who, on 08/18/16, underwent Laparoscopic robotic extensive lysis of adhesions, low anterior resection and small bowel resection. Apparently he was brought in by Dr. Moffett for Diverticulitis. Patient has a history of hypertension, COPD, and continues to smoke one pack of cigarettes a day. Postoperatively patient became progressively short of breath. Pulmonary was consulted on 08/21/16 as the patient was becoming more hypoxemic requiring BiPAP. CT of the chest PE protocol did not show any pulmonary embolism. Patient was placed on breathing treatments and IV Solu-Medrol 40 mg every [address] Renteria. Today a.m. patient was on 100% nonrebreather. Patient was diagnosed with an anastomotic leak today and was taken back to the OR by Dr. Moffett. He underwent exploratory laparotomy, I&D and loop ileostomy today. Postop patient remained hypoxemic requiring 70% oxygen, and hence was left intubated and critical care medicine was consulted. Dr. Arce evaluated the patient in ICU. He remained hypoxemic, FiO2 70%. Chest x-ray shows bibasilar mild infiltrates. On sedation lightening patient became very hypertensive, not following commands probably secondary to residual NM blockade received while being transported to ICU. Patient on receiving vancomycin Levaquin and Flagyl per Dr. Moffett. Dr. Arce added cefepime to cover for Pseudomonas. Holding Solu-Medrol due to anastomotic leak. 08/26: Remains sedated, orally intubated on mechanical ventilation. Went into anuric renal failure yesterday which did not respond to fluid boluses and diuretics hence was started on hemodialysis after placement of right IJ Vas- Cath. Currently sedated, arousable, remains orally intubated on mechanical ventilation. Blood pressure borderline last evening following dialysis for which she was started on low-dose vasopressin 0.03 units per minute and Levophed which is currently at 1 jose per minute. Started on TPN last night following which he has been hyperglycemic. 08/27: Sedated, arousable, orally intubated on mechanical ventilation. Spiking fevers overnight. Off Levophed, transiently off vasopressin. Remains on TPN. 08/28: Remains sedated, arousable, orally intubated on mechanical ventilation. On low-dose vasopressin. TPN continues. Made about 500 cc of urine in the last 24 hours. 08/29: In sedated, arousable, orally intubated on mechanical ventilation. Remains on TPN. Dirty drainage from left-sided SERGEI drain noted overnight. Dr. Moffett obtaining CT abdomen pelvis with oral contrast and ID consulted. 08/30: CURRENT TEMPERATURE 99. Status post 4 L hemodialysis today. No current change in therapy. White blood cell count remained stable. Off vasopressors. Arousable to voice. Versed has been discontinued. We'll attempt CPAP trials again today. 08/31: MAXIMUM TEMPERATURE 100.4. Currently 100.1. Currently resting in bed in no acute distress. Continues with scant drainage from bilateral JPs. We'll attempt CPAP trial again today. Positive stool from ostomy bag 09/01: Tmax 99.8. Currently 99.3. Placement of the new right IJ vas catheter today. Plan for IR to possibly drain right lower quadrant fluid collection. Arousable and moves all 4 extremity spontaneously. Subjective 09/02: Currently afebrile. Noted placement of iron drain with accordion drain. Growing Pseudomonas. Lasted only 2 hours on CPAP trials today. 09/03: Tolerated SBT for only 30 mins and required PS 20. Not ready to extubate. 09/04: Tachypnea related to anxiety? or metabolic acidosis. Will check VBG. Not tolerating SBT. Anemia. Transfuse during HD. 09/05: Remains very tachypneic on SBTs. Unable to extubate. 09/06: Leukocytosis and bandemia. Acts like ongoing sepsis. 09/07: No significant changes. Afebrile. Tolerating TFs as recommended by CRS. Will transition from TPN to enteral feeds now. 09/08: Bandemia persists. Tolerating full TFs. D/c'd TPN. Glucose control acceptable. Objective Vital Signs Date Time Temp Pulse Resp B/P Pulse Ox O2 Delivery O2 Flow Rate FiO2 09/08/16 11:27 97 40 09/08/16 10:00 97 09/08/16 08:00 98.9 24 166/90 09/04/16 19:00 Mechanical Ventilator Intake and Output 09/07/16 09/07/16 09/08/16 08:00 16:00 00:00 Intake Total 958 ml 953 ml 724 ml Output Total 169 ml 30 ml 330 ml Balance 789 ml 923 ml 394 ml Result Diagram: 09/06/16 0645 09/08/16 0415 Imaging Last Impressions Chest X-Ray 09/01/16 0626 Signed Impressions: Service Date/Time: Thursday, September 01, 2016 06:39 - CONCLUSION: 1. Right internal jugular catheter tip in good position. No evidence of pneumothorax. 2. Persistent bilateral lower lung infiltrates, left greater than right. Evelio Boyd MD Abdomen/Pelvis CT 08/29/16 0000 Signed Impressions: Service Date/Time: Monday, August 29, 2016 17:12 - CONCLUSION: Post surgical changes following partial colon resection. Persistent pockets of fluid. Largest is located in the pelvis and contains an air-fluid level. Abscess formation cannot be excluded. Small bowel ileus Bibasilar airspace disease and pleural effusions Aakash Iqbal MD Abdomen X-Ray 08/24/16 0000 Signed Impressions: Service Date/Time: August 07:44 - CONCLUSION: Gaseous distention of multiple bowel loops possible ileus. Jony Miller MD Enema w/Water Soluble 08/23/16 0000 Signed Impressions: Service Date/Time: Tuesday, August 23, 2016 10:12 - CONCLUSION: Anastomosis appears patent without extravasation. Aditya Rocha MD FACR CT Angiography 08/21/16 0000 Signed Impressions: Service Date/Time: Sunday, August 21, 2016 14:05 - CONCLUSION: 1. There is no evidence for central pulmonary emboli. 2. Minimal subcutaneous air as well as free intraperitoneal air. Aditya Rocha MD FACR Objective Remarks GENERAL: 56-year-old orotracheally intubated in no acute distress SKIN: Warm. HEAD: Atraumatic. Normocephalic. ENT: Orotracheally intubated NECK: Trachea midline. Right IJ hemodialysis catheter site clean dry and intact. CARDIOVASCULAR: Tachycardic, RR. S1, S2. Without murmurs, gallops, or rubs. RESPIRATORY: Orally intubated on mechanical ventilation, scattered rhonchi, no wheezing. GASTROINTESTINAL: Abdomen mildly distended. Midline incision clean and intact. MUSCULOSKELETAL: Extremities with 1+ bilateral upper and lower extremity edema, well perfused. NEUROLOGICAL: Lightly sedated for vent synchrony, opens eyes, tracks, gestures with hands. Pupils equal round and reactive 3 mm bilaterally Date of Insertion: Aug 31, 2016 Line: Central Venous Catheter Side: Right Location: Subclavian A/P Assessment and Plan NEURO/PSYCH: History of anxiety -On Sedation and pain control with Versed as needed and fentanyl infusions for analgesia. -Goal of RASS -2 -Daily sedation vacation, follow neuro status. - Acetaminophen for fever RESP: Acute hypoxemic respiratory failure COPD exacerbation Probable healthcare associated pneumonia -Continue ACV 22/600 0.75/8/50 Ventilator bundle -Albuterol nebs every 4 hours scheduled and when necessary, Symbicort 2 puffs every 12 was discontinued while in ventilator. Continue Pulmicort twice a day -Broad-spectrum antibiotics as below -Continue daily C Pap trials. Dr. Renteria/Pulmonary following Increase SBTs length CV: Hypotension secondary to septic shock resolved History of hypertension -Received multiple fluid boluses on 08/25. IV fluids discontinued subsequently in view of anuria necessitating hemodialysis. On TPN at 65 cc an hour Off all vasopressors -Attempt negative fluid balance with hemodialysis. GI/ Nutrition: Anastomotic leak status post exploratory laparotomy, I&D, loop ileostomy 08/24/16 s/p Laparoscopic robotic extensive ANNA MARIE, robotic LAR and small bowel resection Laparoscopic robotic ANNA MARIE, robotic LAR and small bowel resection with anastomotic leak History of diverticulitis -Status post exploratory laparotomy, I&D, loop ileostomy 08/24/16 -Postoperative management per Dr. Moffett. Broad-spectrum antibiotics as below. Left SERGEI drain 5 cc. Right SERGEI 25 cc. positive ostomy output CT abdomen pelvis with oral contrast 08/29 reveal small bowel ileus. Serous fluid collection likely postoperative changes. - On Reglan to improve GI motility -Started on TPN 08/25 at 65 cc an hour with lipids daily Protonix for GI prophylaxis According drain to right lower quadrant 09/01 by IR. -160 Renal/: Acute kidney injury History BPH Status post bilateral ureteral stents placed by Dr. Fraser 08/18 -Monitor renal function closely. Mg catheter. -IV fluids discontinued in view of anuric renal failure and hyperkalemia necessitating hemodialysis. Nephrology consulted and following. -Attempt maintaining even to slightly negative fluid balance if blood pressure permits. New right IJ hemodialysis catheter placed 09/01 ID: Anastomotic leak Sepsis Probable HCAP -IV vancomycin, Flagyl and Levaquin per Dr. Moffett. Levaquin discontinued . Zosyn started 09/02. Flagyl micafungin per ID added. Pertinent culture 09/01: Abdominal wound - Pseudomonas 08/31 - line culture Pseudomonas/coag negative staph 08/31 - blood cultures 2 -no growth 08/31 - sputum - pending 08/29 - wound - Pseudomonas, group D enterococcus, C. albicans and yeast 08/25 blood cultures - no growth 08/25 sputum - Serratia/Klebsiella/Pseudomonas 08/24 - wound - no growth 09/01 - wound Pseudomonas, Enterococcus, Iram HEME: Leukocytosis Normocytic anemia -Monitor CBC, CMP, coags ENDO: -Sliding-scale insulin for glycemic control. 30 units sliding scale past 24 hours. Levemir 30 units twice a day PROPH: -Bilateral lower extremity SCDs. Heparin subcutaneous for DVT prophylaxis.. Protonix for GI prophylaxis LINES: -Left subclavian central line placed in the OR 08/24 - 08/31. Right subclavian central line placed 08/31 - RIJ dialysis catheter 08/25 -08/31. New right IJ hemodialysis catheter 09/01 Overall impression: Critically ill with several organs dysfunctional and remains ventilator dependent. Unable to wean from ventilator but improving respiratory stamina. Nutritional status improving. Mando Brown MD Sep 08, 2016 11:54
--- NOTE | 2016-09-08 12:55 | HHI.IDPN ---
Note Infectious Disease Note Notes reviewed. Patient is on the vent. Very alert and following commands. Sedated. Afebrile. Little ET secretions. SERGEI drains with little drainage. PAST MEDICAL HISTORY 1. Diverticulitis. 2. COPD. 3. Hypertension. 4. Anxiety disorder. 5. BPH. 6. History of tonsillectomy. ALLERGIES No known drug allergies. ANTIBIOTICS 1. Cefepime. 2. Zosyn 3. Vancomycin. 4. Micafungin. 5. Metronidazole. SOCIAL HISTORY The patient is a smoker of one pack of cigarettes a day. No alcohol. No illicit drugs. OBJECTIVE: Vital Signs Date Time Temp Pulse Resp B/P Pulse Ox O2 Delivery O2 Flow Rate FiO2 09/08/16 12:00 102 09/08/16 11:27 97 40 09/08/16 10:00 97 09/08/16 08:00 98.9 98 24 166/90 99 09/08/16 08:00 105 09/08/16 08:00 40 09/08/16 07:42 99 40 09/08/16 06:00 108 09/08/16 04:33 99 40 09/08/16 04:00 99 09/08/16 04:00 98.6 99 24 146/70 100 09/08/16 04:00 40 09/08/16 02:00 100 09/08/16 00:26 100 40 09/08/16 00:00 40 09/08/16 00:00 111 09/08/16 00:00 98.7 111 27 140/79 99 09/07/16 22:00 114 09/07/16 20:00 99.5 115 30 155/74 99 09/07/16 20:00 40 09/07/16 20:00 115 09/07/16 19:16 99 40 09/07/16 18:00 110 09/07/16 16:22 98 40 09/07/16 16:00 94 09/07/16 16:00 98.6 110 22 108/58 99 09/07/16 16:00 40 09/07/16 14:00 102 09/07/16 09/07/16 09/08/16 15:00 23:00 07:00 Intake Total 953 ml 724 ml 690 ml Output Total 30 ml 330 ml 510 ml Balance 923 ml 394 ml 180 ml IV Total 651 ml 236 ml 301 ml Tube Feeding 302 ml 458 ml 329 ml Other 30 ml 60 ml Output Urine Total 0 ml 0 ml Stool Total 400 ml Drainage Total 30 ml 330 ml 110 ml # Bowel Movements 0 Laboratory Tests Test 09/08/16 04:15 Sodium Level 137 MEQ/L Potassium Level 5.3 MEQ/L Chloride Level 97 MEQ/L Carbon Dioxide Level 27.4 MEQ/L Anion Gap 13 MEQ/L Blood Urea Nitrogen 93 MG/DL Creatinine 6.45 MG/DL Estimat Glomerular Filtration 9 ML/MIN Rate Random Glucose 83 MG/DL Calcium Level 8.7 MG/DL Phosphorus Level 6.1 MG/DL Albumin 2.1 GM/DL Microbiology Date/Time Procedure Status Source Growth 08/31/16 15:40 Wound Culture - Final Complete Catheter Tip Central Venous Line Pseudomonas Species Staph Sp Coagulase Negative 08/31/16 15:40 Fungal Culture - Final Complete Catheter Tip Central Venous Line 09/01/16 13:45 Gram Stain - Final Complete Abscess Abdomen 09/01/16 13:45 Wound Culture - Final Complete Pseudomonas Aeruginosa Enterococcus Faecalis Iram [facility] Imaging: Chest X-Ray 09/03/16 06 Signed Impressions: Service Date/Time: Saturday, September 03, 2016 04:03 - CONCLUSION: Stable left lower lobe consolidation and right lower lung infiltrates. Evelio Boyd MD Retroperitoneal Abscess Drainage 09/01/16 0600 Signed Impressions: Service Date/Time: Thursday, September 01, 2016 13:05 - CONCLUSION: Uncomplicated CT guided drainage of a right lower quadrant fluid collection. Approximately 75 cc of fecal-like brown material was aspirated. The air and fluid collection may communicate with the inferior aspect of the midline wound on the anterior abdominal wall. Claude Carrasco MD Abdomen/Pelvis CT 08/29/16 0000 Signed Impressions: Service Date/Time: Monday, August 29, 2016 17:12 - CONCLUSION: Post surgical changes following partial colon resection. Persistent pockets of fluid. Largest is located in the pelvis and contains an air-fluid level. Abscess formation cannot be excluded. Small bowel ileus Bibasilar airspace disease and pleural effusions Aakash Iqbal MD Abdomen X-Ray 08/24/16 0000 Signed Impressions: Service Date/Time: August 07:44 - CONCLUSION: Gaseous distention of multiple bowel loops possible ileus. Jony Miller MD Enema w/Water Soluble 08/23/16 0000 Signed Impressions: Service Date/Time: Tuesday, August 23, 2016 10:12 - CONCLUSION: Anastomosis appears patent without extravasation. Aditya Rocha MD FACR CT Angiography 08/21/16 0000 Signed Impressions: Service Date/Time: Sunday, August 21, 2016 14:05 - CONCLUSION: 1. There is no evidence for central pulmonary emboli. 2. Minimal subcutaneous air as well as free intraperitoneal air. Aditya Rocha MD FACR PHYSICAL EXAMINATION GENERAL: Sedated on the ventilator. Responsive. HEENT: The oropharynx is intubated. no icterus. NECK: No adenopathy or swelling. LUNGS: Clear breath sounds. HEART: Regular rate and rhythm. No audible murmurs, rubs or gallops. ABDOMEN: Distended. Diminished bowel sounds. Wound vac in place has henry colored drainage. Decreased serous drainage from the SERGEI drains. EXTREMITIES: No clubbing or cyanosis. 1-2+ edema. Distal pulses 2+. SKIN: Warm and moist. No rash. NEUROLOGIC: Unable to fully assess. IMPRESSION 1. Sepsis. Pseudomonas on CVL culture of removed line. 2. Peritonitis. Post abdominal surgery/Bowel resection - enterococcus, pseudomonas and yeast. 3. Pneumonia due to gram-negative bacteria with sputum culture showing Serratia, Klebsiella and Pseudomonas. New culture has pseudomonas. 4. Leukocytosis secondary to infection. WBC still elevated. 5. Acute renal failure. 6. Acute respiratory failure. Remains on vent. Looks stable. RECOMMENDATIONS 1. Continue Cefepime. 2. Continue PIP/Tazobactam. 3. Continue vancomycin. 4. Continue micafungin. 5. Continue metronidazole. 6. Monitor white blood cell count and temp. Tim Apodaca MD Sep 08, 2016 12:55
--- NOTE | 2016-09-08 13:02 | HHI.NPPN ---
Subjective General Problems: Edema Renal Failure: Acute Interval History Remains intubated, sedated but eyes open and following commands. He is anuric. Had dialysis today. Tube feeding started. (Fransisca Canela) Review of Systems General General Remarks unable to evaluate (Fransisca Canela) Objective Data Data 09/07/16 09/08/16 19:00 07:00 Intake Total 953 ml 1414 ml Output Total 30 ml 840 ml Balance 923 ml 574 ml IV Total 651 ml 537 ml Tube Feeding 302 ml 787 ml Other 90 ml Output Urine Total 0 ml Stool Total 400 ml Drainage Total 30 ml 440 ml # Bowel Movements 0 Vital Signs Date Time Temp Pulse Resp B/P Pulse Ox O2 Delivery O2 Flow Rate FiO2 09/08/16 12:00 102 09/08/16 11:27 97 40 09/08/16 10:00 97 09/08/16 08:00 98.9 98 24 166/90 99 09/08/16 08:00 105 09/08/16 08:00 40 09/08/16 07:42 99 40 09/08/16 06:00 108 09/08/16 04:33 99 40 09/08/16 04:00 99 09/08/16 04:00 98.6 99 24 146/70 100 09/08/16 04:00 40 09/08/16 02:00 100 09/08/16 00:26 100 40 09/08/16 00:00 40 09/08/16 00:00 111 09/08/16 00:00 98.7 111 27 140/79 99 09/07/16 22:00 114 09/07/16 20:00 99.5 115 30 155/74 99 09/07/16 20:00 40 09/07/16 20:00 115 09/07/16 19:16 99 40 09/07/16 18:00 110 09/07/16 16:22 98 40 09/07/16 16:00 94 09/07/16 16:00 98.6 110 22 108/58 99 09/07/16 16:00 40 09/07/16 14:00 102 (Fransisca Canela) -: 09/06/16 0645 09/08/16 0415 Imaging Last Impressions Chest X-Ray 09/03/16 0600 Signed Impressions: Service Date/Time: Saturday, September 03, 2016 04:03 - CONCLUSION: Stable left lower lobe consolidation and right lower lung infiltrates. Evelio Boyd MD Retroperitoneal Abscess Drainage 09/01/16 0600 Signed Impressions: Service Date/Time: Thursday, September 01, 2016 13:05 - CONCLUSION: Uncomplicated CT guided drainage of a right lower quadrant fluid collection. Approximately 75 cc of fecal-like brown material was aspirated. The air and fluid collection may communicate with the inferior aspect of the midline wound on the anterior abdominal wall. Claude Carrasco MD Abdomen/Pelvis CT 08/29/16 0000 Signed Impressions: Service Date/Time: Monday, August 29, 2016 17:12 - CONCLUSION: Post surgical changes following partial colon resection. Persistent pockets of fluid. Largest is located in the pelvis and contains an air-fluid level. Abscess formation cannot be excluded. Small bowel ileus Bibasilar airspace disease and pleural effusions Aakash Iqbal MD Abdomen X-Ray 08/24/16 0000 Signed Impressions: Service Date/Time: August 07:44 - CONCLUSION: Gaseous distention of multiple bowel loops possible ileus. Jony Miller MD Enema w/Water Soluble 08/23/16 0000 Signed Impressions: Service Date/Time: Tuesday, August 23, 2016 10:12 - CONCLUSION: Anastomosis appears patent without extravasation. Aditya Rocha MD FACR CT Angiography 08/21/16 0000 Signed Impressions: Service Date/Time: Sunday, August 21, 2016 14:05 - CONCLUSION: 1. There is no evidence for central pulmonary emboli. 2. Minimal subcutaneous air as well as free intraperitoneal air. Aditya Rocha MD FACR Tubes & Lines: Vas-Cath, Mg Tubes & Lines Comment TLC, NG tube, SERGEI drain RLQ Drip Comment fentanyl (Fransisca Canela) Physical Exam General Appearance: Well Developed, Well Nourished, No Acute Distress Appearance Remarks intubated, sedated but awake (Fransisca Canela) Throat Throat Exam: Oral Mucosa [place] & Moist (Fransisca Canela) Pulmonary Resp Exam: Breath Sounds Equal, No Distress, Crackles, Sputum, Diminished Breath Sounds Resp Remarks vented, increased secretions (Fransisca Canela) Cardiology CV Exam: Regular, Normal Sinus Rhythm (Fransisca Canela) Gastrointestinal/Abdomen GI Exam: Distended GI Remarks distended, firm; colostomy with red stoma; hyperactive bowel sounds (Fransisca Canela) Musculoskeletal MS Exam: Joints Intact, Normal Tone (Fransisca Canela) Integumentary Skin Exam: Warm, Dry Skin Remarks below umbilicus, midabdominal wound has dehisced (Fransisca Canela) Extremeties Extremities Exam: Pedal Pulses Palpable, Moderate Edema Extremeties Remarks extensive fluid overload (Fransisca Canela) Neurologic Neuro Exam: Awake, Moving All Extremities, Sedated (Fransisca Canela) VTE Prophylaxis Device: SCDs (Fransisca Canela) Assessment/Plan Discussed Condition With: Relative Assessment Summary: VIRIDIANA/Acute Renal Failure, Acute Tubular Necrosis, Fluid/ Volume Overload Problem List: (1) Acute renal failure Plan: He has developed ATN due to sepsis. HD initiated on 08/25. He is on -- HD for now Had extra HD Sunday for fluid removal HD today with 4500 ml UF, reevaluate need for extra treatment tomorrow avoid IVF Avoid nephrotoxic agents. Monitor drug levels when appropriate daily renal panel with electrolytes, Urine measurement (2) Diverticulitis Plan: s/p colon resection with complications surgery following. multiple positive cultures of wound, catheter tip, and sputum ID following, managing antibiotics. He is on Cefepime, Micafungin, Zosyn and Vancomycin. off tpn, tube feeding started (Fransisca Canela) Plan patient was seen and examined. He is awake, follows commands. On CPAP trial. Dialysis done today with removal of 4.5 liters. We will dialyze him again tomorrow. (Tito Kuo MD) Problem Qualifiers (1) Acute renal failure: Qualified Code: N17.0 - Acute renal failure with tubular necrosis Fransisca Canela Sep 08, 2016 13:02 Tito Kuo MD Sep 08, 2016 17:34
--- NOTE | 2016-09-08 13:54 | HHI.PR ---
Subjective Remarks POD#21 s/p robotic LAR/SBR/ANNA MARIE, POD#15 s/p ex lap, washout, diverting loop ileostomy Awakens to voice Intubated Objective Vital Signs Date Time Temp Pulse Resp B/P Pulse Ox O2 Delivery O2 Flow Rate FiO2 09/08/16 13:06 100 40 09/08/16 13:06 40 09/08/16 12:00 102 09/08/16 12:00 40 09/08/16 12:00 98.9 98 24 123/66 99 09/08/16 11:27 97 40 09/08/16 10:00 97 09/08/16 08:00 98.9 98 24 166/90 99 09/08/16 08:00 105 09/08/16 08:00 40 09/08/16 07:42 99 40 09/08/16 06:00 108 09/08/16 04:33 99 40 09/08/16 04:00 99 09/08/16 04:00 98.6 99 24 146/70 100 09/08/16 04:00 40 09/08/16 02:00 100 09/08/16 00:26 100 40 09/08/16 00:00 40 09/08/16 00:00 111 09/08/16 00:00 98.7 111 27 140/79 99 09/07/16 22:00 114 09/07/16 20:00 99.5 115 30 155/74 99 09/07/16 20:00 40 09/07/16 20:00 115 09/07/16 19:16 99 40 09/07/16 18:00 110 09/07/16 16:22 98 40 09/07/16 16:00 94 09/07/16 16:00 98.6 110 22 108/58 99 09/07/16 16:00 40 09/07/16 14:00 102 I/O 09/07/16 09/07/16 09/07/16 09/08/16 09/08/16 09/08/16 06:59 14:59 22:59 06:59 14:59 22:59 Intake Total 958 ml 953 ml 724 ml 690 ml Output Total 169 ml 30 ml 330 ml 510 ml 4500 ml Balance 789 ml 923 ml 394 ml 180 ml -4500 ml IV Total 209 ml 651 ml 236 ml 301 ml Tube Feeding 144 ml 302 ml 458 ml 329 ml TPN/PPN 405 ml Lipid 80 ml Other 120 ml 30 ml 60 ml Output Urine Total 5 ml 0 ml 0 ml Stool Total 150 ml 400 ml Drainage Total 14 ml 30 ml 330 ml 110 ml Hemodialysis 4500 ml # Bowel Movements 0 Result Diagram: 09/06/16 0645 09/08/16 0415 Objective Remarks Abdomen soft Wounds clean Drains with serous type drainage Accordian drain slightly murky Ileostomy pink, moderate drainage Assessment and Plan Assessment and Plan CV - stable off pressors RESP - tolerated 8 hours CPAP yesterday, still with secretions per RN KIDNEY - still anuric, HD FEN - still overall fluid overload, gradually taking off with DHD - tolerating TF's - stop Reglan ID - still with elevated WBC's, Antibiotics per ID Elana Moffett MD Sep 08, 2016 13:54
[2016-09-08 14:15] LABS: POTASSIUM 5.3 MEQ/L (3.5-5.1)
[2016-09-08] MEDS: amLODIPine BESYLATE 5 MG TAB PO SCH (14:15)
[2016-09-08] MEDS: CALCIUM ACETATE 667 MG CAP PO SCH ×2 (14:15→17:24)
[2016-09-08] MEDS: fentaNYL 2,500 MCG/NS 250 ML IV SCH (14:34)
[2016-09-08] MEDS: SODIUM CHLORIDE IV-CENTRAL SCH ×9 (20:00)
[2016-09-08] MEDS: [UNRECOGNIZED DRUG - OTHER] IV-CENTRAL SCH ×9 (20:00)
[2016-09-08] MEDS: SODIUM ACETATE IV-CENTRAL SCH ×9 (20:00)
[2016-09-08] MEDS: FAT EMULSION 20% INJ 250 ML (@10 mls/hr) IV-CENTRAL SCH (20:14)
--- NOTE | 2016-09-08 20:34 | HHI.PR ---
Subjective Remarks YOAA male with robotic surgery,COPD exac Underwent exp lap,I&d and loop iliostomy placement Remains on vent Had HD today Tolerating CPAP Objective Vital Signs Vital Signs Date Time Temp Pulse Resp B/P Pulse Ox O2 Delivery O2 Flow Rate FiO2 09/08/16 18:00 105 09/08/16 16:27 98 40 09/08/16 16:00 40 09/08/16 16:00 98.6 110 22 118/64 99 09/08/16 16:00 110 09/08/16 14:00 97 09/08/16 13:06 100 40 09/08/16 13:06 40 09/08/16 12:00 102 09/08/16 12:00 40 09/08/16 12:00 98.9 98 24 123/66 99 09/08/16 11:27 97 40 09/08/16 10:00 97 09/08/16 08:00 98.9 98 24 166/90 99 09/08/16 08:00 105 09/08/16 08:00 40 09/08/16 07:42 99 40 09/08/16 06:00 108 09/08/16 04:33 99 40 09/08/16 04:00 99 09/08/16 04:00 98.6 99 24 146/70 100 09/08/16 04:00 40 09/08/16 02:00 100 09/08/16 00:26 100 40 09/08/16 00:00 40 09/08/16 00:00 111 09/08/16 00:00 98.7 111 27 140/79 99 09/07/16 22:00 114 I/O 09/07/16 09/07/16 09/07/16 09/08/16 09/08/16 09/08/16 07:00 15:00 23:00 07:00 15:00 23:00 Intake Total 958 ml 953 ml 724 ml 690 ml 773 ml Output Total 169 ml 30 ml 330 ml 510 ml 5025 ml Balance 789 ml 923 ml 394 ml 180 ml -4252 ml IV Total 209 ml 651 ml 236 ml 301 ml 403 ml Tube Feeding 144 ml 302 ml 458 ml 329 ml 370 ml TPN/PPN 405 ml Lipid 80 ml Other 120 ml 30 ml 60 ml Output Urine Total 5 ml 0 ml 0 ml Stool Total 150 ml 400 ml 500 ml Drainage Total 14 ml 30 ml 330 ml 110 ml 25 ml Hemodialysis 4500 ml # Bowel Movements 0 Result Diagram: 09/06/16 0645 09/08/16 0415 Objective Remarks GENERAL: WBWN obese male, on Vent , sedated SKIN: Warm and dry. HEAD: Normocephalic. EYES: No scleral icterus. No injection or drainage. NECK: Supple, trachea midline. No JVD or lymphadenopathy. CARDIOVASCULAR: Regular rate and rhythm without murmurs, gallops, or rubs. RESPIRATORY: Breath sounds equal bilaterally. No accessory muscle use. exp rhonchi GASTROINTESTINAL: Abdomen soft, non-tender, Abd distended MUSCULOSKELETAL: No cyanosis, or edema. BACK: Nontender without obvious deformity. No CVA tenderness. A/P Assessment and Plan Resp Failure, on vent COPD exac S/p robotic surgery Anxiety S/p Exp lap PLAN: Cont vent support, CPAP 5/15 aerosol nebs Nebuliser rx qid and prn Abx per ID Cefepime,Levaquin,Flagyl,Micafungin and vanco Daily CPAP trials Robbie Renteria MD Sep 08, 2016 20:34
[2016-09-09] VITALS (19 sets, daily range): BP systolic 131–154; BP diastolic 70–85; PULSE 84–110; RESP 22–29; TEMP 97.8–98.9; O2SAT 96–99
[2016-09-09] MEDS: metroNIDAZOLE 500 MG TAB PO SCH ×2 (00:35→04:54)
[2016-09-09] MEDS: RESP: ALBUTEROL 2.5 MG/3 ML NEB (SCH) INH ×7 (00:41→22:53)
[2016-09-09] MEDS: PROPOFOL 1000 MG/100 ML IV SCH ×3 (01:48→21:48)
[2016-09-09] MEDS: INSULIN ASPART SUPPLEMENTAL SCALE SQ SCH ×6 (04:00→20:00)
[2016-09-09 04:34] LABS: AUTOMATED NEUTROPHIL # 12.3 TH/MM3 (1.8-7.7); BASOPHIL # 0.2 TH/MM3 (0-0.2); EOSINOPHIL # 0.3 TH/MM3 (0-0.4); EOSINOPHIL % 2.2 % (0.0-4.0); LYMPH % 8.4 % (9.0-44.0); LYMPHOCYTE # 1.3 TH/MM3 (1.0-4.8); MEAN CELL VOLUME 85.1 FL (80.0-100.0); MEAN CORPUSCULAR HEMOGLOBIN 28.6 PG (27.0-34.0); MEAN CORPUSCULAR HGB CONC 33.6 % (32.0-36.0); MONO % 8.8 % (0.0-8.0); NEUT % 79.6 % (16.0-70.0); PLATELET COUNT 252 TH/MM3 (150-450); RED BLOOD COUNT 2.46 MIL/MM3 (4.50-5.90); RED CELL DISTRIBUTION WIDTH 14.7 % (11.6-17.2); WHITE BLOOD COUNT 15.5 TH/MM3 (4.0-11.0)
[2016-09-09 04:47] LABS: HEMO FLAGS AUTO DIFF
[2016-09-09 04:51] LABS: HEMATOCRIT 20.9 % (39.0-51.0)
[2016-09-09] MEDS: PIPERACIL-TAZO 2.25 GM PREMIX 50 ML IV SCH ×3 (04:53→17:12)
[2016-09-09] MEDS: cloNIDine HCL 0.1 MG TAB PO SCH ×3 (04:54→21:48)
[2016-09-09 05:34] LABS: BICARBONATE 26.3 MEQ/L (21.0-32.0); POTASSIUM 4.6 MEQ/L (3.5-5.1)
[2016-09-09 07:04] LABS: BANDS 22 % (0-6); BASOPHILS 4 % (0-2); EOSINOPHILS 1 % (0-4); METAMYELOCYTES 2 % (0-1); NEUTROPHIL # MANUAL DIFF 13.5 TH/MM3 (1.8-7.7); POLYS (SEG NEUTROPHILS) 63 % (16-70); WBC DIFF SAMPLE 100
[2016-09-09 07:05] LABS: ACANTHOCYTES OCC (NORMAL); PLATELET ESTIMATE SMEAR NORMAL (NORMAL); PLATELET MORPHOLOGY NORMAL (NORMAL); STOMATOCYTES 1+ (NORMAL)
[2016-09-09 07:06] LABS: SCAN/DIFF FINAL DIFF MANUAL
[2016-09-09] MEDS: RESP: BUDESONIDE 0.5 MG/2 ML NEB NEB SCH ×2 (08:01→22:13)
[2016-09-09] MEDS: fentaNYL 2,500 MCG/NS 250 ML IV SCH (08:22)
[2016-09-09] MEDS: PANTOPRAZOLE SODIUM 40 MG VIAL IVP SCH (08:23)
[2016-09-09] MEDS: amLODIPine BESYLATE 5 MG TAB PO SCH (08:23)
[2016-09-09] MEDS: CEFEPIME INJ 2,000 MG in SODIUM CHLORIDE 0.9% INJ 100 ML IV SCH (08:23)
[2016-09-09] MEDS: CALCIUM ACETATE 667 MG CAP PO SCH ×3 (08:23→17:12)
[2016-09-09] MEDS: SODIUM CHLORIDE 0.9% FLUSH 5 ML FLUSH IVF SCH ×2 (08:23→21:48)
[2016-09-09] MEDS: INSULIN DETEMIR 100 UNITS/ML VIAL SQ SCH ×2 (08:24→21:49)
[2016-09-09] MEDS: HEPARIN SODIUM - SQ 10,000 UNITS/ML VIAL SQ SCH ×2 (08:24→21:48)
[2016-09-09] MEDS: MUPIROCIN 2% OINT 1 APPLIC/GM SYR EACH NARE SCH ×2 (08:25→21:00)
[2016-09-09] MEDS: CHLORHEXIDINE 0.12% (ORAL KIT) 15 ML CUP MT SCH ×2 (08:26→20:22)
--- NOTE | 2016-09-09 09:43 | HHI.PR ---
Subjective Remarks C/R Surg afebrile, VSS arousable CPAP trial no UO drains min stoma lg amount Objective - Vital Signs Date Time Temp Pulse Resp B/P Pulse Ox O2 Delivery O2 Flow Rate FiO2 09/09/16 08:33 40 09/09/16 08:01 99 09/09/16 06:00 84 09/09/16 04:00 98.9 22 131/71 Result Diagram: 09/09/16 0418 09/09/16 0418 Objective Remarks PE moving all 4 extremities Abd - soft, stoma output, drains little, wound vac not suctioning A/P Assessment and Plan Imp: slow progress reposition wound vac PT resp Rx - poss trach watch I/O with high stoma outputs Mark Betancur MD Sep 09, 2016 09:43
--- NOTE | 2016-09-09 09:59 | HHI.IDPN ---
Subjective Subjective Remarks ID COVERAGE Patient is a 56-year-old male, admitted to the hospital initially for surgery. He has chronic diverticulitis with extension to the small bowel. He underwent surgery August 19 and had laparoscopic, robotic extensive lysis of adhesions, low anterior resection, and small bowel resection. On August 24 he developed anastomotic leak, and underwent repeat surgery and had exploratory laparotomy, irrigation and diverging loop sigmoid colostomy. On September 02 he developed wound dehiscence in the lower midline incision, and it was felt that it had fascial dehiscence. Wound VAC was started at that time. More recently he was found to have a retroperitoneal abscess, and a percutaneous drain was placed on September 01. Patient has been treated for gram-negative pneumonia. The retroperitoneal abscess culture has grown Pseudomonas, enterococcus, and Iram glabrata. Patient has required ventilatory support. Patient also has developed renal failure, and has been undergoing hemodialysis. His WBC remains elevated. Notes reviewed Discussed with RN Patient has remained on the vent. He did 4 hours of CPAP yesterday He is currently on CPAP He is afebrile Blood pressure is good, and he is not on pressors He developed wound dehiscence and has a wound VAC in the lower abdomen His colostomy is working He has 1 SERGEI on the left lower quadrant with serous drainage Has a percutaneous drain that has purulent henry fluid Has minimal urine output Antibiotics Cefepime. Zosyn Vancomycin. Micafungin. Metronidazole. Past Medical History 1. Diverticulitis. 2. COPD. 3. Hypertension. 4. Anxiety disorder. 5. BPH. 6. History of tonsillectomy. Allergies: Coded Allergies: No Known Allergies (Verified , 08/18/16) Objective . Vital Signs Date Time Temp Pulse Resp B/P Pulse Ox O2 Delivery O2 Flow Rate FiO2 09/09/16 08:33 40 09/09/16 08:01 99 40 09/09/16 06:00 84 09/09/16 04:24 97 40 09/09/16 04:00 40 09/09/16 04:00 98.9 96 22 131/71 98 09/09/16 04:00 96 09/09/16 02:00 90 09/09/16 00:45 98 40 09/09/16 00:00 40 09/09/16 00:00 110 09/09/16 00:00 97.8 100 22 153/77 97 09/08/16 22:00 102 09/08/16 20:34 100 40 09/08/16 20:00 99.4 86 22 124/66 97 09/08/16 20:00 40 09/08/16 20:00 86 09/08/16 18:00 105 09/08/16 16:27 98 40 09/08/16 16:00 40 09/08/16 16:00 98.6 110 22 118/64 99 09/08/16 16:00 110 09/08/16 14:00 97 09/08/16 13:06 100 40 09/08/16 13:06 40 09/08/16 12:00 102 09/08/16 12:00 40 09/08/16 12:00 98.9 98 24 123/66 99 09/08/16 11:27 97 40 09/08/16 10:00 97 09/08/16 09/08/16 09/09/16 15:00 23:00 07:00 Intake Total 773 ml 757 ml 789 ml Output Total 5025 ml 995 ml 765 ml Balance -4252 ml -238 ml 24 ml IV Total 403 ml 180 ml 259 ml Tube Feeding 370 ml 457 ml 410 ml Tube Irrigant 120 ml 120 ml Output Urine Total 0 ml 0 ml Stool Total 500 ml 875 ml 700 ml Tube Feeding Residual Discard 0 ml 0 ml Drainage Total 25 ml 120 ml 65 ml Hemodialysis 4500 ml . Laboratory Tests Test 09/09/16 04:18 White Blood Count 15.5 TH/MM3 Red Blood Count 2.46 MIL/MM3 Hemoglobin 7.0 GM/DL Hematocrit 20.9 % Mean Corpuscular Volume 85.1 FL Mean Corpuscular Hemoglobin 28.6 PG Mean Corpuscular Hemoglobin 33.6 % Concent Red Cell Distribution Width 14.7 % Platelet Count 252 TH/MM3 Mean Platelet Volume 8.5 FL Neutrophils (%) (Auto) 79.6 % Lymphocytes (%) (Auto) 8.4 % Monocytes (%) (Auto) 8.8 % Eosinophils (%) (Auto) 2.2 % Basophils (%) (Auto) 1.0 % Neutrophils # (Auto) 12.3 TH/MM3 Lymphocytes # (Auto) 1.3 TH/MM3 Monocytes # (Auto) 1.4 TH/MM3 Eosinophils # (Auto) 0.3 TH/MM3 Basophils # (Auto) 0.2 TH/MM3 CBC Comment AUTO DIFF Differential Total Cells 100 Counted Neutrophils % (Manual) 63 % Band Neutrophils % 22 % Lymphocytes % 7 % Monocytes % 1 % Eosinophils % 1 % Basophils % 4 % Neutrophils # (Manual) 13.5 TH/MM3 Metamyelocytes 2 % Differential Comment FINAL DIFF MANUAL Platelet Estimate NORMAL Platelet Morphology Comment NORMAL Stomatocytes 1+ Acanthocytes OCC Laboratory Tests Test 09/08/16 09/09/16 04:15 04:18 Sodium Level 137 MEQ/L 140 MEQ/L Potassium Level 5.3 MEQ/L 4.6 MEQ/L Chloride Level 97 MEQ/L 100 MEQ/L Carbon Dioxide Level 27.4 MEQ/L 26.3 MEQ/L Anion Gap 13 MEQ/L 14 MEQ/L Blood Urea Nitrogen 93 MG/DL 72 MG/DL Creatinine 6.45 MG/DL 5.34 MG/DL Estimat Glomerular Filtration 9 ML/MIN 11 ML/MIN Rate Random Glucose 83 MG/DL 85 MG/DL Calcium Level 8.7 MG/DL 8.7 MG/DL Phosphorus Level 6.1 MG/DL Albumin 2.1 GM/DL Imaging Chest X-Ray 09/03/16 0600 Signed Impressions: Service Date/Time: Saturday, September 03, 2016 04:03 - CONCLUSION: Stable left lower lobe consolidation and right lower lung infiltrates. Evelio Boyd MD Retroperitoneal Abscess Drainage 09/01/16 0600 Signed Impressions: Service Date/Time: Thursday, September 01, 2016 13:05 - CONCLUSION: Uncomplicated CT guided drainage of a right lower quadrant fluid collection. Approximately 75 cc of fecal-like brown material was aspirated. The air and fluid collection may communicate with the inferior aspect of the midline wound on the anterior abdominal wall. Claude Carrasco MD Abdomen/Pelvis CT 08/29/16 0000 Signed Impressions: Service Date/Time: Monday, August 29, 2016 17:12 - CONCLUSION: Post surgical changes following partial colon resection. Persistent pockets of fluid. Largest is located in the pelvis and contains an air-fluid level. Abscess formation cannot be excluded. Small bowel ileus Bibasilar airspace disease and pleural effusions Aakash Iqbal MD Abdomen X-Ray 08/24/16 0000 Signed Impressions: Service Date/Time: August 07:44 - CONCLUSION: Gaseous distention of multiple bowel loops possible ileus. Jony F. Tocci, MD Enema w/Water Soluble 08/23/16 0000 Signed Impressions: Service Date/Time: Tuesday, August 23, 2016 10:12 - CONCLUSION: Anastomosis appears patent without extravasation. Aditya Rocha MD FACR CT Angiography 08/21/16 0000 Signed Impressions: Service Date/Time: Sunday, August 21, 2016 14:05 - CONCLUSION: 1. There is no evidence for central pulmonary emboli. 2. Minimal subcutaneous air as well as free intraperitoneal air. Aditya Rocha MD FACR Physical Exam GENERAL: On sedation, but opens eyes, on CPAP, NAD SKIN: Warm, no rash HEENT: [place] conjunctivae, no scleral icterus. He is orally intubated. NECK: No adenopathy or swelling. LUNGS: Coarse breath sounds bilaterally, decreased at the bases. HEART: Regular rate and rhythm. No audible murmurs, rubs or gallops. ABDOMEN: Distended. Has midline incision, with wound vac at lower portion, has some serous drainage at level of umbilicus, no erythema noted. Colostomy is working. 1 SERGEI with serous drainage. Percutaneous drainage with purulent fluid EXTREMITIES: No clubbing or cyanosis. 1-2+ edema. Distal pulses 2+. Well- perfused NEUROLOGIC: Awake, seems to be focusing LINE: NO evidence of infection Assessment & Plan Remarks IMPRESSION Sepsis, had initially anastomotic leak, now with retroperitoneal abscess, and has a drain in place - C/S polymicrobial, PSAE. Enterococcus and Iram PSAE PNA Respiratory failure - doing CPAP trials Previously has PSAE, Kleb and Serratia PNA Acute renal failure, likely multifactorial, sepsis Leukocytosis, persistent but lower RECOMMENDATIONS Will simplify Abx Continue Zosyn - should cover PSAE and Enterococcus Continue Micafungin for antifungal (had C glabrata and C albicans) Stop Flagyl Stop Cefepime Stop Vancomycin Repeat CXR Weaning per CCM Follow CBC Monitor progress Monitor abdominal incision - D/W Dr Betancur, may need to remove some yehuda and extend the wound vac dressings D/W RN D/W Dr Betancur ([facility]) Wendy Young MD Sep 09, 2016 09:59
[2016-09-09] MEDS: MICAFUNGIN INJ 100 MG in SODIUM CHLORIDE 0.9% INJ 100 ML IV SCH (10:19)
--- NOTE | 2016-09-09 12:43 | HHI.CCPN ---
Subjective Remarks/Hospital Course 08/25: Patient is a 58-year-old male with past medical history significant COPD who, on 08/18/16, underwent Laparoscopic robotic extensive lysis of adhesions, low anterior resection and small bowel resection. Apparently he was brought in by Dr. Moffett for Diverticulitis. Patient has a history of hypertension, COPD, and continues to smoke one pack of cigarettes a day. Postoperatively patient became progressively short of breath. Pulmonary was consulted on 08/21/16 as the patient was becoming more hypoxemic requiring BiPAP. CT of the chest PE protocol did not show any pulmonary embolism. Patient was placed on breathing treatments and IV Solu-Medrol 40 mg every [address] Renteria. Today a.m. patient was on 100% nonrebreather. Patient was diagnosed with an anastomotic leak today and was taken back to the OR by Dr. Moffett. He underwent exploratory laparotomy, I&D and loop ileostomy today. Postop patient remained hypoxemic requiring 70% oxygen, and hence was left intubated and critical care medicine was consulted. Dr. Arce evaluated the patient in ICU. He remained hypoxemic, FiO2 70%. Chest x-ray shows bibasilar mild infiltrates. On sedation lightening patient became very hypertensive, not following commands probably secondary to residual NM blockade received while being transported to ICU. Patient on receiving vancomycin Levaquin and Flagyl per Dr. Moffett. Dr. Arce added cefepime to cover for Pseudomonas. Holding Solu-Medrol due to anastomotic leak. 08/26: Remains sedated, orally intubated on mechanical ventilation. Went into anuric renal failure yesterday which did not respond to fluid boluses and diuretics hence was started on hemodialysis after placement of right IJ Vas- Cath. Currently sedated, arousable, remains orally intubated on mechanical ventilation. Blood pressure borderline last evening following dialysis for which she was started on low-dose vasopressin 0.03 units per minute and Levophed which is currently at 1 jose per minute. Started on TPN last night following which he has been hyperglycemic. 08/27: Sedated, arousable, orally intubated on mechanical ventilation. Spiking fevers overnight. Off Levophed, transiently off vasopressin. Remains on TPN. 08/28: Remains sedated, arousable, orally intubated on mechanical ventilation. On low-dose vasopressin. TPN continues. Made about 500 cc of urine in the last 24 hours. 08/29: In sedated, arousable, orally intubated on mechanical ventilation. Remains on TPN. Dirty drainage from left-sided SERGEI drain noted overnight. Dr. Moffett obtaining CT abdomen pelvis with oral contrast and ID consulted. 08/30: CURRENT TEMPERATURE 99. Status post 4 L hemodialysis today. No current change in therapy. White blood cell count remained stable. Off vasopressors. Arousable to voice. Versed has been discontinued. We'll attempt CPAP trials again today. 08/31: MAXIMUM TEMPERATURE 100.4. Currently 100.1. Currently resting in bed in no acute distress. Continues with scant drainage from bilateral JPs. We'll attempt CPAP trial again today. Positive stool from ostomy bag 09/01: Tmax 99.8. Currently 99.3. Placement of the new right IJ vas catheter today. Plan for IR to possibly drain right lower quadrant fluid collection. Arousable and moves all 4 extremity spontaneously. Subjective 09/02: Currently afebrile. Noted placement of iron drain with accordion drain. Growing Pseudomonas. Lasted only 2 hours on CPAP trials today. 09/03: Tolerated SBT for only 30 mins and required PS 20. Not ready to extubate. 09/04: Tachypnea related to anxiety? or metabolic acidosis. Will check VBG. Not tolerating SBT. Anemia. Transfuse during HD. 09/05: Remains very tachypneic on SBTs. Unable to extubate. 09/06: Leukocytosis and bandemia. Acts like ongoing sepsis. 09/07: No significant changes. Afebrile. Tolerating TFs as recommended by CRS. Will transition from TPN to enteral feeds now. 09/08: Bandemia persists. Tolerating full TFs. D/c'd TPN. Glucose control acceptable. 09/09: Tolerating longer CPAP/PS trials. Objective Vital Signs Date Time Temp Pulse Resp B/P Pulse Ox O2 Delivery O2 Flow Rate FiO2 09/09/16 11:25 99 40 09/09/16 06:00 84 09/09/16 04:00 98.9 22 131/71 Intake and Output 09/08/16 09/08/16 09/09/16 08:00 16:00 00:00 Intake Total 690 ml 773 ml 757 ml Output Total 510 ml 5025 ml 995.0 ml Balance 180 ml -4252 ml -238.0 ml Result Diagram: 09/09/16 0418 09/09/16 0418 Imaging Last Impressions Chest X-Ray 09/01/16 0626 Signed Impressions: Service Date/Time: Thursday, September 01, 2016 06:39 - CONCLUSION: 1. Right internal jugular catheter tip in good position. No evidence of pneumothorax. 2. Persistent bilateral lower lung infiltrates, left greater than right. Evelio Boyd MD Abdomen/Pelvis CT 08/29/16 0000 Signed Impressions: Service Date/Time: Monday, August 29, 2016 17:12 - CONCLUSION: Post surgical changes following partial colon resection. Persistent pockets of fluid. Largest is located in the pelvis and contains an air-fluid level. Abscess formation cannot be excluded. Small bowel ileus Bibasilar airspace disease and pleural effusions Aakash Iqbal MD Abdomen X-Ray 08/24/16 0000 Signed Impressions: Service Date/Time: August 07:44 - CONCLUSION: Gaseous distention of multiple bowel loops possible ileus. Jony Miller MD Enema w/Water Soluble 08/23/16 0000 Signed Impressions: Service Date/Time: Tuesday, August 23, 2016 10:12 - CONCLUSION: Anastomosis appears patent without extravasation. Aditya Rocha MD FACR CT Angiography 08/21/16 0000 Signed Impressions: Service Date/Time: Sunday, August 21, 2016 14:05 - CONCLUSION: 1. There is no evidence for central pulmonary emboli. 2. Minimal subcutaneous air as well as free intraperitoneal air. Aditya Rocha MD FACR Objective Remarks GENERAL: 56-year-old orotracheally intubated in no acute distress SKIN: Warm. Dry. HEAD: Atraumatic. Normocephalic. ENT: Orotracheally intubated NECK: Trachea midline. Right IJ hemodialysis catheter site clean dry and intact. CARDIOVASCULAR:, RR. S1, S2. Without murmurs, gallops, or rubs. RESPIRATORY: Orally intubated on mechanical ventilation, scattered rhonchi, no wheezing. GASTROINTESTINAL: Abdomen mildly distended. Midline incision clean and intact. MUSCULOSKELETAL: Extremities with 1+ bilateral upper and lower extremity edema, well perfused. NEUROLOGICAL:Opens eyes, tracks, gestures with hands. Pupils equal round and reactive 2 mm bilaterally Date of Insertion: Aug 31, 2016 Line: Central Venous Catheter Side: Right Location: Subclavian A/P Assessment and Plan NEURO/PSYCH: History of anxiety -On Sedation and pain control with Versed as needed and fentanyl infusions for analgesia. -Goal of RASS -2 -Daily sedation vacation, follow neuro status. - Acetaminophen for fever RESP: Acute hypoxemic respiratory failure COPD exacerbation Probable healthcare associated pneumonia -Continue ACV 22/600 0.75/8/50 Ventilator bundle -Albuterol nebs every 4 hours scheduled and when necessary, Symbicort 2 puffs every 12 was discontinued while in ventilator. Continue Pulmicort twice a day -Broad-spectrum antibiotics as below -Continue daily C Pap trials. Dr. Renteria/Pulmonary following Increase SBTs length CV: Hypotension secondary to septic shock resolved History of hypertension -Received multiple fluid boluses on 08/25. IV fluids discontinued subsequently in view of anuria necessitating hemodialysis. On TPN at 65 cc an hour Off all vasopressors -Attempt negative fluid balance with hemodialysis. GI/ Nutrition: Anastomotic leak status post exploratory laparotomy, I&D, loop ileostomy 08/24/16 s/p Laparoscopic robotic extensive ANNA MARIE, robotic LAR and small bowel resection Laparoscopic robotic ANNA MARIE, robotic LAR and small bowel resection with anastomotic leak History of diverticulitis -Status post exploratory laparotomy, I&D, loop ileostomy 08/24/16 -Postoperative management per Dr. Moffett. Broad-spectrum antibiotics as below. Left SERGEI drain 5 cc. Right SEREGI 25 cc. positive ostomy output CT abdomen pelvis with oral contrast 08/29 reveal small bowel ileus. Serous fluid collection likely postoperative changes. - On Reglan to improve GI motility -Started on TPN 08/25 at 65 cc an hour with lipids daily Protonix for GI prophylaxis According drain to right lower quadrant 09/01 by IR. -160 Renal/: Acute kidney injury History BPH Status post bilateral ureteral stents placed by Dr. Fraser 08/18 -Monitor renal function closely. Mg catheter. -IV fluids discontinued in view of anuric renal failure and hyperkalemia necessitating hemodialysis. Nephrology consulted and following. -Attempt maintaining even to slightly negative fluid balance if blood pressure permits. New right IJ hemodialysis catheter placed 09/01 ID: Anastomotic leak Sepsis Probable HCAP -IV vancomycin, Flagyl and Levaquin per Dr. Moffett. Levaquin discontinued . Zosyn started 09/02. Flagyl micafungin per ID added. Pertinent culture 09/01: Abdominal wound - Pseudomonas 08/31 - line culture Pseudomonas/coag negative staph 08/31 - blood cultures 2 -no growth 08/31 - sputum - pending 08/29 - wound - Pseudomonas, group D enterococcus, C. albicans and yeast 08/25 blood cultures - no growth 08/25 sputum - Serratia/Klebsiella/Pseudomonas 08/24 - wound - no growth 09/01 - wound Pseudomonas, Enterococcus, Iram HEME: Leukocytosis Normocytic anemia -Monitor CBC, CMP, coags ENDO: -Sliding-scale insulin for glycemic control. 30 units sliding scale past 24 hours. Levemir 30 units twice a day PROPH: -Bilateral lower extremity SCDs. Heparin subcutaneous for DVT prophylaxis.. Protonix for GI prophylaxis LINES: -Left subclavian central line placed in the OR 08/24 - 08/31. Right subclavian central line placed 08/31 - RIJ dialysis catheter 08/25 -08/31. New right IJ hemodialysis catheter 09/01 Overall impression: Critically ill with several organs dysfunctional and remains ventilator dependent. Unable to wean from ventilator but improving respiratory stamina. Nutritional status improving. Discussed with nurse and family at bedside. Mando Brown MD Sep 09, 2016 12:43
[2016-09-09] MEDS: GENTAMICIN SULFATE (DIALYSIS USE ONLY) 20 MG/2 ML VIAL IV PRN (13:32)
[2016-09-09] MEDS: HEPARIN SODIUM - IV 10,000 UNITS/10 ML VIAL PRN (13:32)
[2016-09-09] MEDS: SODIUM CHLOR 0.9% 1000 ML INJ 1,000 ML IV PRN (13:33)
--- NOTE | 2016-09-09 14:27 | HHI.NPPN ---
Subjective General Problems: Edema Renal Failure: Acute Additional Remarks Patient remain on the vent. not in distress. Review of Systems General General Remarks unable to evaluate Objective Data Data 09/08/16 09/09/16 19:00 07:00 Intake Total 773 ml 1546 ml Output Total 5025 ml 1760.0 ml Balance -4252 ml -214.0 ml IV Total 403 ml 439 ml Tube Feeding 370 ml 867 ml Tube Irrigant 240 ml Output Urine Total 0 ml Stool Total 500 ml 1575 ml Tube Feeding Residual Discard 0 ml Drainage Total 25 ml 185 ml Hemodialysis 4500 ml Vital Signs Date Time Temp Pulse Resp B/P Pulse Ox O2 Delivery O2 Flow Rate FiO2 09/09/16 12:00 40 09/09/16 12:00 100 09/09/16 12:00 97.8 100 29 151/82 96 09/09/16 11:25 99 40 09/09/16 10:00 104 09/09/16 08:33 40 09/09/16 08:01 99 40 09/09/16 08:00 40 09/09/16 08:00 98.7 101 22 154/85 98 09/09/16 08:00 101 09/09/16 06:00 84 09/09/16 04:24 97 40 09/09/16 04:00 40 09/09/16 04:00 98.9 96 22 131/71 98 09/09/16 04:00 96 09/09/16 02:00 90 09/09/16 00:45 98 40 09/09/16 00:00 40 09/09/16 00:00 110 09/09/16 00:00 97.8 100 22 153/77 97 09/08/16 22:00 102 09/08/16 20:34 100 40 09/08/16 20:00 99.4 86 22 124/66 97 09/08/16 20:00 40 09/08/16 20:00 86 09/08/16 18:00 105 09/08/16 16:27 98 40 09/08/16 16:00 40 09/08/16 16:00 98.6 110 22 118/64 99 09/08/16 16:00 110 -: 09/09/16 0418 09/09/16 0418 Tubes & Lines: Vas-Cath, Mg Tubes & Lines Comment TLC, NG tube, SERGEI drain RLQ Drip Comment fentanyl Physical Exam General Appearance: No Acute Distress Appearance Remarks Intubated and sedated. Throat Throat Exam: Oral Mucosa Ivy & Moist Pulmonary Resp Exam: Breath Sounds Equal, No Distress, Crackles, Sputum, Diminished Breath Sounds Cardiology CV Exam: Regular, Normal Sinus Rhythm Gastrointestinal/Abdomen GI Exam: Distended Musculoskeletal MS Exam: Joints Intact, Normal Tone Integumentary Skin Exam: Warm, Dry Extremeties Extremities Exam: Moderate Edema, Pitting Edema Neurologic Neuro Exam: Sedated VTE Prophylaxis Device: SCDs Assessment/Plan Discussed Condition With: Relative Assessment Summary: VIRIDIANA/Acute Renal Failure, Acute Tubular Necrosis, Fluid/ Volume Overload Problem List: (1) Acute renal failure Plan: He has developed ATN due to sepsis. HD initiated on 08/25. He is on -- HD for now Had extra HD Sunday for fluid removal Avoid nephrotoxic agents. Monitor drug levels when appropriate daily renal panel with electrolytes, Urine measurement. So far no improvement in the renal function. Follow urine out put and BMP. HD will be on Sunday. (2) Diverticulitis Plan: s/p colon resection with complications surgery following. multiple positive cultures of wound, catheter tip, and sputum ID following, managing antibiotics. He is on Cefepime, Micafungin, Zosyn and Vancomycin. off tpn, tube feeding started Plan patient was seen and examined. He is awake, follows commands. On CPAP trial. Dialysis done today with removal of 4.5 liters. We will dialyze him again tomorrow. Problem Qualifiers (1) Acute renal failure: Qualified Code: N17.0 - Acute renal failure with tubular necrosis Enmanuel Donis MD Sep 09, 2016 14:26
--- NOTE | 2016-09-09 15:47 | HHI.PR ---
Subjective Remarks YOAA male with robotic surgery,COPD exac Underwent exp lap,I&d and loop iliostomy placement Remains on vent Undergoing HD had 1 unit PRBC Opens eyes and follows On CPAP Objective Vital Signs Vital Signs Date Time Temp Pulse Resp B/P Pulse Ox O2 Delivery O2 Flow Rate FiO2 09/09/16 14:00 100 09/09/16 12:00 40 09/09/16 12:00 100 09/09/16 12:00 97.8 100 29 151/82 96 09/09/16 11:25 99 40 09/09/16 10:00 104 09/09/16 08:33 40 09/09/16 08:01 99 40 09/09/16 08:00 40 09/09/16 08:00 98.7 101 22 154/85 98 09/09/16 08:00 101 09/09/16 06:00 84 09/09/16 04:24 97 40 09/09/16 04:00 40 09/09/16 04:00 98.9 96 22 131/71 98 09/09/16 04:00 96 09/09/16 02:00 90 09/09/16 00:45 98 40 09/09/16 00:00 40 09/09/16 00:00 110 09/09/16 00:00 97.8 100 22 153/77 97 09/08/16 22:00 102 09/08/16 20:34 100 40 09/08/16 20:00 99.4 86 22 124/66 97 09/08/16 20:00 40 09/08/16 20:00 86 09/08/16 18:00 105 09/08/16 16:27 98 40 09/08/16 16:00 40 09/08/16 16:00 98.6 110 22 118/64 99 09/08/16 16:00 110 I/O 09/08/16 09/08/16 09/08/16 09/09/16 09/09/16 09/09/16 07:00 15:00 23:00 07:00 15:00 23:00 Intake Total 690 ml 773 ml 757 ml 789 ml 1699 ml Output Total 510 ml 5025 ml 995 ml 765 ml 750 ml Balance 180 ml -4252 ml -238 ml 24 ml 949 ml IV Total 301 ml 403 ml 180 ml 259 ml 449 ml Tube Feeding 329 ml 370 ml 457 ml 410 ml 500 ml Packed Cells 500 ml Tube Irrigant 120 ml 120 ml Other 60 ml 250 ml Output Urine Total 0 ml 0 ml 0 ml Stool Total 400 ml 500 ml 875 ml 700 ml 700 ml Tube Feeding Residual Discard 0 ml 0 ml 0 ml Drainage Total 110 ml 25 ml 120 ml 65 ml 50 ml Hemodialysis 4500 ml Result Diagram: 09/09/1641709/09/16417 Objective Remarks GENERAL: WBWN obese male, on Vent , sedated SKIN: Warm and dry. HEAD: Normocephalic. EYES: No scleral icterus. No injection or drainage. NECK: Supple, trachea midline. No JVD or lymphadenopathy. CARDIOVASCULAR: Regular rate and rhythm without murmurs, gallops, or rubs. RESPIRATORY: Breath sounds equal bilaterally. No accessory muscle use. exp rhonchi GASTROINTESTINAL: Abdomen soft, non-tender, Abd distended MUSCULOSKELETAL: No cyanosis, or edema. BACK: Nontender without obvious deformity. No CVA tenderness. A/P Assessment and Plan Resp Failure, on vent COPD exac S/p robotic surgery Anxiety S/p Exp lap PLAN: Cont vent support, CPAP 5/15 aerosol nebs Nebuliser rx qid and prn Abx per ID Daily CPAP Robbie Renteria MD Sep 09, 2016 15:47
[2016-09-10] VITALS (18 sets, daily range): BP systolic 120–165; BP diastolic 47–96; PULSE 86–106; RESP 22–28; TEMP 98.1–98.7; O2SAT 94–100
[2016-09-10] MEDS: PROPOFOL 1000 MG/100 ML IV SCH ×5 (00:25→20:19)
[2016-09-10] MEDS: PIPERACIL-TAZO 2.25 GM PREMIX 50 ML IV SCH ×4 (00:25→18:09)
[2016-09-10] MEDS: fentaNYL 2,500 MCG/NS 250 ML IV SCH (00:26)
[2016-09-10] MEDS: RESP: ALBUTEROL 2.5 MG/3 ML NEB (SCH) INH ×5 (03:14→19:51)
[2016-09-10] MEDS: INSULIN ASPART SUPPLEMENTAL SCALE SQ SCH ×6 (04:00→20:00)
[2016-09-10] MEDS: cloNIDine HCL 0.1 MG TAB PO SCH ×3 (05:08→20:20)
[2016-09-10 05:51] LABS: AUTOMATED NEUTROPHIL # 13.6 TH/MM3 (1.8-7.7); BASOPHIL # 0.2 TH/MM3 (0-0.2); EOSINOPHIL # 0.5 TH/MM3 (0-0.4); EOSINOPHIL % 2.9 % (0.0-4.0); HEMATOCRIT 26.5 % (39.0-51.0); LYMPH % 8.3 % (9.0-44.0); LYMPHOCYTE # 1.4 TH/MM3 (1.0-4.8); MEAN CELL VOLUME 85.7 FL (80.0-100.0); MEAN CORPUSCULAR HEMOGLOBIN 28.4 PG (27.0-34.0); MEAN CORPUSCULAR HGB CONC 33.2 % (32.0-36.0); MONO % 8.6 % (0.0-8.0); NEUT % 79.2 % (16.0-70.0); PLATELET COUNT 282 TH/MM3 (150-450); RED BLOOD COUNT 3.09 MIL/MM3 (4.50-5.90); RED CELL DISTRIBUTION WIDTH 15.2 % (11.6-17.2); WHITE BLOOD COUNT 17.2 TH/MM3 (4.0-11.0)
[2016-09-10 06:03] LABS: HEMO FLAGS AUTO DIFF
--- NOTE | 2016-09-10 06:11 | RADRPT ---
EXAM DATE/TIME: 09/10/2016 04:09 [facility] COMPARISON: CHEST SINGLE AP, September 03, 2016, 4:03. INDICATIONS : Shortness of breath. MEDICAL HISTORY : Chronic obstructive pulmonary disease. SURGICAL HISTORY : None. ENCOUNTER: Subsequent ACUITY: 3 weeks PAIN SCORE: Non-responsive. LOCATION: Bilateral chest FINDINGS: Endotracheal tube in satisfactory position. NG enters stomach. Right central line is in superior vena cava. Basilar airspace disease slightly improved on the right since September 03. Mild left basilar airs pace disease persists. CONCLUSION: 1. Slight improvement of right basilar airspace disease since September 03. Support apparatus unchanged. Miki Banerjee MD on September 10, 2016 at 6:08 Board Certified Radiologist. This report was verified electronically.
[2016-09-10] MEDS: RESP: ALBUTEROL 2.5 MG/IPRATROPIUM 0.5 MG NEB (PRN) NEB (07:55)
[2016-09-10 08:29] LABS: BANDS 20 % (0-6); BASOPHILS 1 % (0-2); EOSINOPHILS 1 % (0-4); METAMYELOCYTES 1 % (0-1); MYELOCYTES 2 % (0-0); NEUTROPHIL # MANUAL DIFF 16.2 TH/MM3 (1.8-7.7); PLATELET ESTIMATE SMEAR NORMAL (NORMAL); POLYS (SEG NEUTROPHILS) 71 % (16-70); WBC DIFF SAMPLE 100
[2016-09-10 08:30] LABS: ACANTHOCYTES OCC (NORMAL); PLATELET MORPHOLOGY NORMAL (NORMAL); STOMATOCYTES 1+ (NORMAL)
[2016-09-10 08:33] LABS: SCAN/DIFF FINAL DIFF MANUAL
[2016-09-10] MEDS: RESP: BUDESONIDE 0.5 MG/2 ML NEB NEB SCH ×2 (08:39→19:51)
[2016-09-10] MEDS: MUPIROCIN 2% OINT 1 APPLIC/GM SYR EACH NARE SCH ×2 (09:00→20:19)
[2016-09-10] MEDS: INSULIN DETEMIR 100 UNITS/ML VIAL SQ SCH ×2 (09:00→20:20)
[2016-09-10] MEDS: CHLORHEXIDINE 0.12% (ORAL KIT) 15 ML CUP MT SCH ×2 (09:49→20:21)
[2016-09-10] MEDS: HEPARIN SODIUM - SQ 10,000 UNITS/ML VIAL SQ SCH ×2 (09:49→20:20)
[2016-09-10] MEDS: MICAFUNGIN INJ 100 MG in SODIUM CHLORIDE 0.9% INJ 100 ML IV SCH (09:49)
[2016-09-10] MEDS: DEXTROSE 50% IN WATER 50 ML VIAL(D50) IV PRN ×2 (09:51→10:30)
[2016-09-10] MEDS: SODIUM CHLORIDE 0.9% FLUSH 5 ML FLUSH IVF SCH ×2 (09:51→20:20)
[2016-09-10] MEDS: PANTOPRAZOLE SODIUM 40 MG VIAL IVP SCH (09:51)
[2016-09-10] MEDS: amLODIPine BESYLATE 5 MG TAB PO SCH (09:51)
[2016-09-10] MEDS: CALCIUM ACETATE 667 MG CAP PO SCH ×3 (09:51→18:08)
--- NOTE | 2016-09-10 10:15 | HHI.CCPN ---
Subjective Remarks/Hospital Course 08/25: Patient is a 58-year-old male with past medical history significant COPD who, on 08/18/16, underwent Laparoscopic robotic extensive lysis of adhesions, low anterior resection and small bowel resection. Apparently he was brought in by Dr. Moffett for Diverticulitis. Patient has a history of hypertension, COPD, and continues to smoke one pack of cigarettes a day. Postoperatively patient became progressively short of breath. Pulmonary was consulted on 08/21/16 as the patient was becoming more hypoxemic requiring BiPAP. CT of the chest PE protocol did not show any pulmonary embolism. Patient was placed on breathing treatments and IV Solu-Medrol 40 mg every [address] Renteria. Today a.m. patient was on 100% nonrebreather. Patient was diagnosed with an anastomotic leak today and was taken back to the OR by Dr. Moffett. He underwent exploratory laparotomy, I&D and loop ileostomy today. Postop patient remained hypoxemic requiring 70% oxygen, and hence was left intubated and critical care medicine was consulted. Dr. Arce evaluated the patient in ICU. He remained hypoxemic, FiO2 70%. Chest x-ray shows bibasilar mild infiltrates. On sedation lightening patient became very hypertensive, not following commands probably secondary to residual NM blockade received while being transported to ICU. Patient on receiving vancomycin Levaquin and Flagyl per Dr. Moffett. Dr. Arce added cefepime to cover for Pseudomonas. Holding Solu-Medrol due to anastomotic leak. 08/26: Remains sedated, orally intubated on mechanical ventilation. Went into anuric renal failure yesterday which did not respond to fluid boluses and diuretics hence was started on hemodialysis after placement of right IJ Vas- Cath. Currently sedated, arousable, remains orally intubated on mechanical ventilation. Blood pressure borderline last evening following dialysis for which she was started on low-dose vasopressin 0.03 units per minute and Levophed which is currently at 1 jose per minute. Started on TPN last night following which he has been hyperglycemic. 08/27: Sedated, arousable, orally intubated on mechanical ventilation. Spiking fevers overnight. Off Levophed, transiently off vasopressin. Remains on TPN. 08/28: Remains sedated, arousable, orally intubated on mechanical ventilation. On low-dose vasopressin. TPN continues. Made about 500 cc of urine in the last 24 hours. 08/29: In sedated, arousable, orally intubated on mechanical ventilation. Remains on TPN. Dirty drainage from left-sided SERGEI drain noted overnight. Dr. Moffett obtaining CT abdomen pelvis with oral contrast and ID consulted. 08/30: CURRENT TEMPERATURE 99. Status post 4 L hemodialysis today. No current change in therapy. White blood cell count remained stable. Off vasopressors. Arousable to voice. Versed has been discontinued. We'll attempt CPAP trials again today. 08/31: MAXIMUM TEMPERATURE 100.4. Currently 100.1. Currently resting in bed in no acute distress. Continues with scant drainage from bilateral JPs. We'll attempt CPAP trial again today. Positive stool from ostomy bag 09/01: Tmax 99.8. Currently 99.3. Placement of the new right IJ vas catheter today. Plan for IR to possibly drain right lower quadrant fluid collection. Arousable and moves all 4 extremity spontaneously. Subjective 09/02: Currently afebrile. Noted placement of iron drain with accordion drain. Growing Pseudomonas. Lasted only 2 hours on CPAP trials today. 09/03: Tolerated SBT for only 30 mins and required PS 20. Not ready to extubate. 09/04: Tachypnea related to anxiety? or metabolic acidosis. Will check VBG. Not tolerating SBT. Anemia. Transfuse during HD. 09/05: Remains very tachypneic on SBTs. Unable to extubate. 09/06: Leukocytosis and bandemia. Acts like ongoing sepsis. 09/07: No significant changes. Afebrile. Tolerating TFs as recommended by CRS. Will transition from TPN to enteral feeds now. 09/08: Bandemia persists. Tolerating full TFs. D/c'd TPN. Glucose control acceptable. 09/09: Tolerating longer CPAP/PS trials. 09/10: Stronger respiratory effort. Try to extubate today. Objective Vital Signs Date Time Temp Pulse Resp B/P Pulse Ox O2 Delivery O2 Flow Rate FiO2 09/10/16 08:43 40 09/10/16 07:56 98 09/10/16 06:00 102 09/10/16 04:00 98.7 25 146/47 Intake and Output 09/09/16 09/09/16 09/10/16 08:00 16:00 00:00 Intake Total 789 ml 1699 ml 764 ml Output Total 765.0 ml 750.0 ml 705.0 ml Balance 24.0 ml 949.0 ml 59.0 ml Result Diagram: 09/10/16 0526 09/09/16 0418 Imaging Last Impressions Chest X-Ray 09/01/16 0626 Signed Impressions: Service Date/Time: Thursday, September 01, 2016 06:39 - CONCLUSION: 1. Right internal jugular catheter tip in good position. No evidence of pneumothorax. 2. Persistent bilateral lower lung infiltrates, left greater than right. Evelio Boyd MD Abdomen/Pelvis CT 08/29/16 0000 Signed Impressions: Service Date/Time: Monday, August 29, 2016 17:12 - CONCLUSION: Post surgical changes following partial colon resection. Persistent pockets of fluid. Largest is located in the pelvis and contains an air-fluid level. Abscess formation cannot be excluded. Small bowel ileus Bibasilar airspace disease and pleural effusions Aakash Iqbal MD Abdomen X-Ray 08/24/16 0000 Signed Impressions: Service Date/Time: August 07:44 - CONCLUSION: Gaseous distention of multiple bowel loops possible ileus. Jony Miller MD Enema w/Water Soluble 08/23/16 0000 Signed Impressions: Service Date/Time: Tuesday, August 23, 2016 10:12 - CONCLUSION: Anastomosis appears patent without extravasation. Aditya Rocha MD FACR CT Angiography 08/21/16 0000 Signed Impressions: Service Date/Time: Sunday, August 21, 2016 14:05 - CONCLUSION: 1. There is no evidence for central pulmonary emboli. 2. Minimal subcutaneous air as well as free intraperitoneal air. Aditya Rocha MD FACR Objective Remarks GENERAL: 56-year-old orotracheally intubated in no acute distress SKIN: Warm. Dry. HEAD: Atraumatic. Normocephalic. ENT: Orotracheally intubated NECK: Trachea midline. Supple. CARDIOVASCULAR:, RR. S1, S2. Without murmurs, gallops, or rubs. RESPIRATORY: Orally intubated on mechanical ventilation, scattered rhonchi, no wheezing. GASTROINTESTINAL: Abdomen mildly distended. Midline incision clean and intact. MUSCULOSKELETAL: Extremities with 1+ bilateral upper and lower extremity edema, well perfused. NEUROLOGICAL:Opens eyes, tracks, gestures with hands. Nods head, quite responsive and alert. Pupils equal round and reactive 2 mm bilaterally Date of Insertion: Aug 31, 2016 Line: Central Venous Catheter Side: Right Location: Subclavian A/P Assessment and Plan NEURO/PSYCH: History of anxiety -On Sedation and pain control with Versed as needed and fentanyl infusions for analgesia. -Goal of RASS -2 -Daily sedation vacation, follow neuro status. - Acetaminophen for fever RESP: Acute hypoxemic respiratory failure COPD exacerbation Probable healthcare associated pneumonia -Continue ACV 22/600 0.75/8/50 Ventilator bundle -Albuterol nebs every 4 hours scheduled and when necessary, Symbicort 2 puffs every 12 was discontinued while in ventilator. Continue Pulmicort twice a day -Broad-spectrum antibiotics as below -Continue daily C Pap trials. Dr. Renteria/Pulmonary following Increase SBTs length CV: Hypotension secondary to septic shock resolved History of hypertension -Received multiple fluid boluses on 08/25. IV fluids discontinued subsequently in view of anuria necessitating hemodialysis. On TPN at 65 cc an hour Off all vasopressors -Attempt negative fluid balance with hemodialysis. GI/ Nutrition: Anastomotic leak status post exploratory laparotomy, I&D, loop ileostomy 08/24/16 s/p Laparoscopic robotic extensive ANNA MARIE, robotic LAR and small bowel resection Laparoscopic robotic ANNA MARIE, robotic LAR and small bowel resection with anastomotic leak History of diverticulitis -Status post exploratory laparotomy, I&D, loop ileostomy 08/24/16 -Postoperative management per Dr. Moffett. Broad-spectrum antibiotics as below. Left SERGEI drain 5 cc. Right SERGEI 25 cc. positive ostomy output CT abdomen pelvis with oral contrast 08/29 reveal small bowel ileus. Serous fluid collection likely postoperative changes. - On Reglan to improve GI motility -Started on TPN 08/25 at 65 cc an hour with lipids daily Protonix for GI prophylaxis According drain to right lower quadrant 09/01 by IR. -160 Renal/: Acute kidney injury History BPH Status post bilateral ureteral stents placed by Dr. Fraser 08/18 -Monitor renal function closely. Mg catheter. -IV fluids discontinued in view of anuric renal failure and hyperkalemia necessitating hemodialysis. Nephrology consulted and following. -Attempt maintaining even to slightly negative fluid balance if blood pressure permits. New right IJ hemodialysis catheter placed 09/01 -> D/C ID: Anastomotic leak Sepsis Probable HCAP -IV vancomycin, Flagyl and Levaquin per Dr. Moffett. Levaquin discontinued . Zosyn started 09/02. Flagyl micafungin per ID added. Pertinent culture 09/01: Abdominal wound - Pseudomonas 08/31 - line culture Pseudomonas/coag negative staph 08/31 - blood cultures 2 -no growth 08/31 - sputum - pending 08/29 - wound - Pseudomonas, group D enterococcus, C. albicans and yeast 08/25 blood cultures - no growth 08/25 sputum - Serratia/Klebsiella/Pseudomonas 08/24 - wound - no growth 09/01 - wound Pseudomonas, Enterococcus, Iram HEME: Leukocytosis Normocytic anemia -Monitor CBC, CMP, coags ENDO: -Sliding-scale insulin for glycemic control. 30 units sliding scale past 24 hours. Levemir 30 units twice a day PROPH: -Bilateral lower extremity SCDs. Heparin subcutaneous for DVT prophylaxis.. Protonix for GI prophylaxis LINES: -Left subclavian central line placed in the OR 08/24 - 08/31. Right subclavian central line placed 08/31 - RIJ dialysis catheter 08/25 -08/31. New right IJ hemodialysis catheter 09/01 Overall impression:Remains ventilator dependent. Unable to wean from ventilator but improving respiratory stamina. Nutritional status improving. Possibly strong enough to extubate. Mando Brown MD Sep 10, 2016 10:15
--- NOTE | 2016-09-10 10:34 | HHI.IDPN ---
Subjective Subjective Remarks ID COVERAGE Patient is a 56-year-old male, admitted to the hospital initially for surgery. He has chronic diverticulitis with extension to the small bowel. He underwent surgery August 19 and had laparoscopic, robotic extensive lysis of adhesions, low anterior resection, and small bowel resection. On August 24 he developed anastomotic leak, and underwent repeat surgery and had exploratory laparotomy, irrigation and diverging loop sigmoid colostomy. On September 02 he developed wound dehiscence in the lower midline incision, and it was felt that it had fascial dehiscence. Wound VAC was started at that time. More recently he was found to have a retroperitoneal abscess, and a percutaneous drain was placed on September 01. Patient has been treated for gram-negative pneumonia. The retroperitoneal abscess culture has grown Pseudomonas, enterococcus, and Iram glabrata. Patient has required ventilatory support. Patient also has developed renal failure, and has been undergoing hemodialysis. His WBC remains elevated. Notes reviewed Discussed with RN Patient on the vent. On sedation, opens eyes when stimulated He is afebrile Blood pressure is good, and he is not on pressors He developed wound dehiscence and has a wound VAC in the lower abdomen His colostomy is working He has 1 SERGEI on the left lower quadrant with serous drainage Has a percutaneous drain that has purulent henry fluid Has minimal urine output WBC slightly higher Antibiotics Zosyn Micafungin. Past Medical History 1. Diverticulitis. 2. COPD. 3. Hypertension. 4. Anxiety disorder. 5. BPH. 6. History of tonsillectomy. Allergies: Coded Allergies: No Known Allergies (Verified , 08/18/16) Objective . Vital Signs Date Time Temp Pulse Resp B/P Pulse Ox O2 Delivery O2 Flow Rate FiO2 09/10/16 08:43 40 09/10/16 08:41 40 09/10/16 07:56 98 40 09/10/16 06:00 102 09/10/16 04:00 98.7 98 25 146/47 97 09/10/16 04:00 98 09/10/16 04:00 40 09/10/16 04:00 99 40 09/10/16 02:00 102 09/10/16 01:10 96 40 09/10/16 00:00 90 09/10/16 00:00 40 09/10/16 00:00 98.1 90 22 143/96 94 09/09/16 22:13 98 40 09/09/16 22:00 92 09/09/16 20:00 40 09/09/16 20:00 98.4 86 28 134/80 98 09/09/16 20:00 86 09/09/16 19:26 99 40 09/09/16 18:00 97 09/09/16 16:52 99 40 09/09/16 16:00 96 09/09/16 16:00 98.2 96 27 139/70 98 09/09/16 16:00 40 09/09/16 14:00 100 09/09/16 12:00 40 09/09/16 12:00 100 09/09/16 12:00 97.8 100 29 151/82 96 09/09/16 11:25 99 40 09/09/16 09/09/16 09/10/16 15:00 23:00 07:00 Intake Total 1699 ml 764 ml 780 ml Output Total 750 ml 705 ml 345 ml Balance 949 ml 59 ml 435 ml IV Total 449 ml 312 ml 460 ml Tube Feeding 500 ml 452 ml 320 ml Packed Cells 500 ml Other 250 ml Stool Total 700 ml 650 ml 300 ml Tube Feeding Residual Discard 0 ml 0 ml 0 ml Drainage Total 50 ml 55 ml 45 ml # Voids 0 . Laboratory Tests Test 09/09/16 09/10/16 04:18 05:26 White Blood Count 15.5 TH/MM3 17.2 TH/MM3 Red Blood Count 2.46 MIL/MM3 3.09 MIL/MM3 Hemoglobin 7.0 GM/DL 8.8 GM/DL Hematocrit 20.9 % 26.5 % Mean Corpuscular Volume 85.1 FL 85.7 FL Mean Corpuscular Hemoglobin 28.6 PG 28.4 PG Mean Corpuscular Hemoglobin 33.6 % 33.2 % Concent Red Cell Distribution Width 14.7 % 15.2 % Platelet Count 252 TH/MM3 282 TH/MM3 Mean Platelet Volume 8.5 FL 8.4 FL Neutrophils (%) (Auto) 79.6 % 79.2 % Lymphocytes (%) (Auto) 8.4 % 8.3 % Monocytes (%) (Auto) 8.8 % 8.6 % Eosinophils (%) (Auto) 2.2 % 2.9 % Basophils (%) (Auto) 1.0 % 1.0 % Neutrophils # (Auto) 12.3 TH/MM3 13.6 TH/MM3 Lymphocytes # (Auto) 1.3 TH/MM3 1.4 TH/MM3 Monocytes # (Auto) 1.4 TH/MM3 1.5 TH/MM3 Eosinophils # (Auto) 0.3 TH/MM3 0.5 TH/MM3 Basophils # (Auto) 0.2 TH/MM3 0.2 TH/MM3 CBC Comment AUTO DIFF AUTO DIFF Differential Total Cells 100 100 Counted Neutrophils % (Manual) 63 % 71 % Band Neutrophils % 22 % 20 % Lymphocytes % 7 % 3 % Monocytes % 1 % 1 % Eosinophils % 1 % 1 % Basophils % 4 % 1 % Neutrophils # (Manual) 13.5 TH/MM3 16.2 TH/MM3 Metamyelocytes 2 % 1 % Differential Comment FINAL DIFF FINAL DIFF MANUAL MANUAL Platelet Estimate NORMAL NORMAL Platelet Morphology Comment NORMAL NORMAL Stomatocytes 1+ 1+ Acanthocytes OCC OCC Myelocytes 2 % Laboratory Tests Test 09/09/16 04:18 Sodium Level 140 MEQ/L Potassium Level 4.6 MEQ/L Chloride Level 100 MEQ/L Carbon Dioxide Level 26.3 MEQ/L Anion Gap 14 MEQ/L Blood Urea Nitrogen 72 MG/DL Creatinine 5.34 MG/DL Estimat Glomerular Filtration 11 ML/MIN Rate Random Glucose 85 MG/DL Calcium Level 8.7 MG/DL Imaging Chest X-Ray 09/10/16 0000 Signed Impressions: Service Date/Time: Saturday, September 10, 2016 04:09 - CONCLUSION: 1. Slight improvement of right basilar airspace disease since September 03. Support apparatus unchanged. Miki Banerjee MD Chest X-Ray 09/03/16 0600 Signed Impressions: Service Date/Time: Saturday, September 03, 2016 04:03 - CONCLUSION: Stable left lower lobe consolidation and right lower lung infiltrates. Evelio Boyd MD Retroperitoneal Abscess Drainage 09/01/16 0600 Signed Impressions: Service Date/Time: Thursday, September 01, 2016 13:05 - CONCLUSION: Uncomplicated CT guided drainage of a right lower quadrant fluid collection. Approximately 75 cc of fecal-like brown material was aspirated. The air and fluid collection may communicate with the inferior aspect of the midline wound on the anterior abdominal wall. Claude Carrasco MD Abdomen/Pelvis CT 08/29/16 0000 Signed Impressions: Service Date/Time: Monday, August 29, 2016 17:12 - CONCLUSION: Post surgical changes following partial colon resection. Persistent pockets of fluid. Largest is located in the pelvis and contains an air-fluid level. Abscess formation cannot be excluded. Small bowel ileus Bibasilar airspace disease and pleural effusions Aakash Iqbal MD Abdomen X-Ray 08/24/16 0000 Signed Impressions: Service Date/Time: August 07:44 - CONCLUSION: Gaseous distention of multiple bowel loops possible ileus. Jony Miller MD Enema w/Water Soluble 08/23/16 0000 Signed Impressions: Service Date/Time: Tuesday, August 23, 2016 10:12 - CONCLUSION: Anastomosis appears patent without extravasation. Aditya Rocha MD FACR CT Angiography 08/21/16 0000 Signed Impressions: Service Date/Time: Sunday, August 21, 2016 14:05 - CONCLUSION: 1. There is no evidence for central pulmonary emboli. 2. Minimal subcutaneous air as well as free intraperitoneal air. Aditya Rocha MD FACR Physical Exam GENERAL: On sedation, but opens eyes, NAD. On the vent SKIN: Warm, no rash HEENT: [place] conjunctivae, no scleral icterus. He is orally intubated. NECK: No adenopathy or swelling. LUNGS: Coarse breath sounds bilaterally, decreased at the bases. HEART: Regular rate and rhythm. No audible murmurs, rubs or gallops. ABDOMEN: Distended. Has midline incision, with wound vac at lower portion, drainage from incision less, no erythema noted. Colostomy is working. 1 SERGEI with serous drainage. Percutaneous drainage with purulent fluid EXTREMITIES: No clubbing or cyanosis. Edema improving. Well-perfused NEUROLOGIC: Awake, seems to be focusing LINE: NO evidence of infection Assessment & Plan Remarks IMPRESSION Sepsis, had initially anastomotic leak, now with retroperitoneal abscess, and has a drain in place - C/S polymicrobial, PSAE. Enterococcus and Iram PSAE PNA Respiratory failure - doing CPAP trials Previously has PSAE, Kleb and Serratia PNA Acute renal failure, likely multifactorial, sepsis Leukocytosis, persistent but lower RECOMMENDATIONS Continue Zosyn - should cover PSAE and Enterococcus Continue Micafungin for antifungal (had C glabrata and C albicans) Follow CBC Weaning per CCM - possible extubation today? Monitor progress Monitor abdominal incision D/W Wendy Reed MD Sep 10, 2016 10:34
--- NOTE | 2016-09-10 11:34 | HHI.PR ---
Subjective Remarks C/R Surg afebrile, VSS arousable CPAP trial - on vent again no UO drains min stoma lg amount, thicker Objective - Vital Signs Date Time Temp Pulse Resp B/P Pulse Ox O2 Delivery O2 Flow Rate FiO2 09/10/16 08:43 40 09/10/16 07:56 98 09/10/16 06:00 102 09/10/16 04:00 98.7 25 146/47 Result Diagram: 09/10/16 0526 09/09/16 0418 Objective Remarks PE moving all 4 extremities Abd - soft, stoma output, drains little, wound vac not suctioning A/P Assessment and Plan Imp: slow progress reposition wound vac PT resp Rx - poss trach watch I/O with high stoma outputs Hgb better Mark Betancur MD Sep 10, 2016 11:34
--- NOTE | 2016-09-10 13:24 | HHI.NPPN ---
Subjective General Problems: Edema Renal Failure: Acute Additional Remarks Patient is clinically same, remain on the vent. not in distress. Review of Systems General General Remarks unable to evaluate Objective Data Data 09/09/16 09/10/16 19:00 07:00 Intake Total 1699 ml 1544 ml Output Total 750.0 ml 1050.0 ml Balance 949.0 ml 494.0 ml IV Total 449 ml 772 ml Tube Feeding 500 ml 772 ml Packed Cells 500 ml Other 250 ml Stool Total 700 ml 950 ml Tube Feeding Residual Discard 0 ml 0 ml Drainage Total 50 ml 100 ml # Voids 0 Vital Signs Date Time Temp Pulse Resp B/P Pulse Ox O2 Delivery O2 Flow Rate FiO2 09/10/16 12:59 98 40 09/10/16 12:00 40 09/10/16 12:00 98 09/10/16 10:00 106 09/10/16 08:43 40 09/10/16 08:41 40 09/10/16 08:00 98.7 86 22 159/89 99 09/10/16 08:00 86 09/10/16 08:00 40 09/10/16 07:56 98 40 09/10/16 06:00 102 09/10/16 04:00 98.7 98 25 146/47 97 09/10/16 04:00 98 09/10/16 04:00 40 09/10/16 04:00 99 40 09/10/16 02:00 102 09/10/16 01:10 96 40 09/10/16 00:00 90 09/10/16 00:00 40 09/10/16 00:00 98.1 90 22 143/96 94 09/09/16 22:13 98 40 09/09/16 22:00 92 09/09/16 20:00 40 09/09/16 20:00 98.4 86 28 134/80 98 09/09/16 20:00 86 09/09/16 19:26 99 40 09/09/16 18:00 97 09/09/16 16:52 99 40 09/09/16 16:00 96 09/09/16 16:00 98.2 96 27 139/70 98 09/09/16 16:00 40 09/09/16 14:00 100 -: 09/10/16 0526 09/09/16 0418 Tubes & Lines: Vas-Cath, Mg Tubes & Lines Comment TLC, NG tube, SERGEI drain RLQ Drip Comment fentanyl Physical Exam General Appearance: No Acute Distress Appearance Remarks Intubated and sedated. Throat Throat Exam: Oral Mucosa [place] & Moist Pulmonary Resp Exam: Breath Sounds Equal, No Distress, Crackles, Sputum, Diminished Breath Sounds Cardiology CV Exam: Regular, Normal Sinus Rhythm Gastrointestinal/Abdomen GI Exam: Distended Musculoskeletal MS Exam: Joints Intact, Normal Tone Integumentary Skin Exam: Warm, Dry Extremeties Extremities Exam: Moderate Edema, Pitting Edema Neurologic Neuro Exam: Sedated VTE Prophylaxis Device: SCDs Assessment/Plan Discussed Condition With: Relative Assessment Summary: VIRIDIANA/Acute Renal Failure, Acute Tubular Necrosis, Fluid/ Volume Overload Problem List: (1) Acute renal failure Plan: He has developed ATN due to sepsis. HD initiated on 08/25. He is on M-W- HD for now Had extra HD Sunday for fluid removal Avoid nephrotoxic agents. Monitor drug levels when appropriate daily renal panel with electrolytes, Urine measurement. So far no improvement in the renal function. Follow urine out put and BMP. HD to continue as needed. (2) Diverticulitis Plan: s/p colon resection with complications surgery following. multiple positive cultures of wound, catheter tip, and sputum ID following, managing antibiotics. He is on Cefepime, Micafungin, Zosyn and Vancomycin. off tpn, tube feeding started Problem Qualifiers (1) Acute renal failure: Qualified Code: N17.0 - Acute renal failure with tubular necrosis Enmanuel Donis MD Sep 10, 2016 13:24
--- NOTE | 2016-09-10 16:53 | HHI.PR ---
Subjective Remarks YOAA male with robotic surgery,COPD exac Underwent exp lap,I&d and loop iliostomy placement Remains on vent Opens eyes and follows Toleratet CPAp few hrs, back on Vent Objective Vital Signs Vital Signs Date Time Temp Pulse Resp B/P Pulse Ox O2 Delivery O2 Flow Rate FiO2 09/10/16 16:44 98 40 09/10/16 16:00 40 09/10/16 16:00 98.3 98 28 120/69 97 09/10/16 16:00 98 09/10/16 14:00 102 09/10/16 12:59 98 40 09/10/16 12:00 98.5 98 22 159/86 97 09/10/16 12:00 40 09/10/16 12:00 98 09/10/16 10:00 106 09/10/16 08:43 40 09/10/16 08:41 40 09/10/16 08:00 98.7 86 22 159/89 99 09/10/16 08:00 86 09/10/16 08:00 40 09/10/16 07:56 98 40 09/10/16 06:00 102 09/10/16 04:00 98.7 98 25 146/47 97 09/10/16 04:00 98 09/10/16 04:00 40 09/10/16 04:00 99 40 09/10/16 02:00 102 09/10/16 01:10 96 40 09/10/16 00:00 90 09/10/16 00:00 40 09/10/16 00:00 98.1 90 22 143/96 94 09/09/16 22:13 98 40 09/09/16 22:00 92 09/09/16 20:00 40 09/09/16 20:00 98.4 86 28 134/80 98 09/09/16 20:00 86 09/09/16 19:26 99 40 09/09/16 18:00 97 I/O 09/09/16 09/09/16 09/09/16 09/10/16 09/10/16 09/10/16 07:00 15:00 23:00 07:00 15:00 23:00 Intake Total 789 ml 1699 ml 764 ml 780 ml 891 ml Output Total 765 ml 750 ml 705 ml 345 ml 135 ml 0 ml Balance 24 ml 949 ml 59 ml 435 ml 756 ml 0 ml IV Total 259 ml 449 ml 312 ml 460 ml 480 ml Tube Feeding 410 ml 500 ml 452 ml 320 ml 411 ml Packed Cells 500 ml Tube Irrigant 120 ml Other 250 ml Output Urine Total 0 ml 0 ml Stool Total 700 ml 700 ml 650 ml 300 ml 125 ml Tube Feeding Residual Discard 0 ml 0 ml 0 ml 0 ml 0 ml 0 ml Drainage Total 65 ml 50 ml 55 ml 45 ml 10 ml # Voids 0 Result Diagram: 09/10/16 0526 09/09/16 0418 Objective Remarks GENERAL: WBWN obese male, on Vent , sedated SKIN: Warm and dry. HEAD: Normocephalic. EYES: No scleral icterus. No injection or drainage. NECK: Supple, trachea midline. No JVD or lymphadenopathy. CARDIOVASCULAR: Regular rate and rhythm without murmurs, gallops, or rubs. RESPIRATORY: Breath sounds equal bilaterally. No accessory muscle use. exp rhonchi GASTROINTESTINAL: Abdomen soft, non-tender, Abd distended MUSCULOSKELETAL: No cyanosis, or edema. BACK: Nontender without obvious deformity. No CVA tenderness. A/P Assessment and Plan Resp Failure, on vent COPD exac S/p robotic surgery Anxiety S/p Exp lap PLAN: Cont vent support, aerosol nebs Nebuliser rx qid and prn Abx per ID Daily CPAP Robbie Renteria MD Sep 10, 2016 16:53
[2016-09-11] VITALS (19 sets, daily range): BP systolic 118–182; BP diastolic 52–93; PULSE 88–125; RESP 22–40; TEMP 98.7–102.2; O2SAT 97–100
[2016-09-11] MEDS: RESP: ALBUTEROL 2.5 MG/3 ML NEB (SCH) INH ×6 (00:08→20:03)
[2016-09-11] MEDS: PIPERACIL-TAZO 2.25 GM PREMIX 50 ML IV SCH ×4 (00:11→17:28)
[2016-09-11] MEDS: PROPOFOL 1000 MG/100 ML IV SCH ×6 (00:11→17:43)
[2016-09-11] MEDS: fentaNYL 2,500 MCG/NS 250 ML IV SCH ×2 (00:11→12:06)
[2016-09-11] MEDS: INSULIN ASPART SUPPLEMENTAL SCALE SQ SCH ×6 (04:00→20:00)
[2016-09-11 06:13] LABS: AUTOMATED NEUTROPHIL # 15.7 TH/MM3 (1.8-7.7); BASOPHIL # 0.2 TH/MM3 (0-0.2); BASOPHIL % 0.9 % (0.0-2.0); EOSINOPHIL # 0.4 TH/MM3 (0-0.4); EOSINOPHIL % 2.3 % (0.0-4.0); HEMATOCRIT 26.2 % (39.0-51.0); LYMPH % 6.8 % (9.0-44.0); LYMPHOCYTE # 1.3 TH/MM3 (1.0-4.8); MEAN CELL VOLUME 85.7 FL (80.0-100.0); MEAN CORPUSCULAR HEMOGLOBIN 28.5 PG (27.0-34.0); MEAN CORPUSCULAR HGB CONC 33.3 % (32.0-36.0); MONO % 10.6 % (0.0-8.0); NEUT % 79.4 % (16.0-70.0); PLATELET COUNT 329 TH/MM3 (150-450); RED BLOOD COUNT 3.05 MIL/MM3 (4.50-5.90); RED CELL DISTRIBUTION WIDTH 15.1 % (11.6-17.2); WHITE BLOOD COUNT 19.7 TH/MM3 (4.0-11.0)
[2016-09-11 06:36] LABS: HEMO FLAGS AUTO DIFF
[2016-09-11 07:35] LABS: BANDS 7 % (0-6); MYELOCYTES 3 % (0-0); NEUTROPHIL # MANUAL DIFF 17.9 TH/MM3 (1.8-7.7); PLATELET ESTIMATE SMEAR NORMAL (NORMAL); PLATELET MORPHOLOGY NORMAL (NORMAL); POLYS (SEG NEUTROPHILS) 81 % (16-70); SCAN/DIFF FINAL DIFF MANUAL; WBC DIFF SAMPLE 100
[2016-09-11] MEDS: cloNIDine HCL 0.1 MG TAB PO SCH ×3 (07:35→21:06)
[2016-09-11] MEDS: RESP: BUDESONIDE 0.5 MG/2 ML NEB NEB SCH ×2 (07:49→20:03)
[2016-09-11] MEDS: CHLORHEXIDINE 0.12% (ORAL KIT) 15 ML CUP MT SCH ×2 (08:00→20:49)
[2016-09-11] MEDS: PANTOPRAZOLE SODIUM 40 MG VIAL IVP SCH (08:00)
[2016-09-11] MEDS: MICAFUNGIN INJ 100 MG in SODIUM CHLORIDE 0.9% INJ 100 ML IV SCH (08:01)
[2016-09-11] MEDS: MUPIROCIN 2% OINT 1 APPLIC/GM SYR EACH NARE SCH ×2 (08:01→20:43)
[2016-09-11] MEDS: amLODIPine BESYLATE 5 MG TAB PO SCH (08:01)
[2016-09-11] MEDS: SODIUM CHLORIDE 0.9% FLUSH 5 ML FLUSH IVF SCH ×2 (08:01→20:43)
[2016-09-11] MEDS: HEPARIN SODIUM - SQ 10,000 UNITS/ML VIAL SQ SCH ×2 (08:01→20:54)
[2016-09-11] MEDS: CALCIUM ACETATE 667 MG CAP PO SCH ×3 (08:01→17:28)
[2016-09-11] MEDS: INSULIN DETEMIR 100 UNITS/ML VIAL SQ SCH ×2 (09:00→21:00)
--- NOTE | 2016-09-11 11:25 | HHI.NPPN ---
Subjective General Problems: Edema Renal Failure: Acute Interval History Remains on vent. Seen during bedside dialysis. he is anuric. (Fransisca Canela) Review of Systems General General Remarks unable to evaluate (Fransisca Canela) Objective Data Data 09/10/16 09/11/16 19:00 07:00 Intake Total 891 ml 880 ml Output Total 135.0 ml 460.0 ml Balance 756.0 ml 420.0 ml IV Total 480 ml 419 ml Tube Feeding 411 ml 381 ml Other 80 ml Output Urine Total 0 ml Stool Total 125 ml 400 ml Tube Feeding Residual Discard 0 ml 0 ml Drainage Total 10 ml 60 ml Vital Signs Date Time Temp Pulse Resp B/P Pulse Ox O2 Delivery O2 Flow Rate FiO2 09/11/16 11:11 100 40 09/11/16 07:53 98 40 09/11/16 06:00 100 09/11/16 04:25 98 40 09/11/16 04:00 98.8 98 22 169/85 97 09/11/16 04:00 98 09/11/16 04:00 40 09/11/16 02:00 102 09/11/16 02:00 40 09/11/16 01:20 97 40 09/11/16 00:00 40 09/11/16 00:00 102 09/11/16 00:00 98.7 102 22 164/86 97 09/10/16 22:14 100 40 09/10/16 22:00 92 09/10/16 22:00 40 09/10/16 20:00 98.7 102 22 165/87 99 09/10/16 20:00 102 09/10/16 20:00 40 09/10/16 19:51 100 40 09/10/16 18:00 98 09/10/16 16:44 98 40 09/10/16 16:00 40 09/10/16 16:00 98.3 98 28 120/69 97 09/10/16 16:00 98 09/10/16 14:00 102 09/10/16 12:59 98 40 09/10/16 12:00 98.5 98 22 159/86 97 09/10/16 12:00 40 09/10/16 12:00 98 (Fransisca Canela) -: 09/11/16 0540 09/09/16 0418 Imaging Last 48 hours Impressions Chest X-Ray 09/10/16 0000 Signed Impressions: Service Date/Time: Saturday, September 10, 2016 04:09 - CONCLUSION: 1. Slight improvement of right basilar airspace disease since September 03. Support apparatus unchanged. Miki Banerjee MD Tubes & Lines: Vas-Cath, Mg Tubes & Lines Comment TLC, NG tube, SERGEI drain RLQ Drip Comment fentanyl, propofol (Fransisca Canela) Physical Exam General Appearance: No Acute Distress Appearance Remarks intubated, sedated, awakens to stimuli (Fransisca Canela) Throat Throat Exam: Oral Mucosa [place] & Moist (Fransisca Canela) Pulmonary Resp Exam: Breath Sounds Equal, No Distress, Crackles, Sputum, Diminished Breath Sounds Resp Remarks vented, increased secretions (Fransisca Canela) Cardiology CV Exam: Regular, Normal Sinus Rhythm (Fransisca Canela) Gastrointestinal/Abdomen GI Exam: Distended GI Remarks distended, firm; colostomy with red stoma; hyperactive bowel sounds (Fransisca Canela) Musculoskeletal MS Exam: Joints Intact, Normal Tone (Fransisca Canela) Integumentary Skin Exam: Warm, Dry Skin Remarks below umbilicus, midabdominal wound has dehisced (Fransisca Canela) Extremeties Extremities Exam: Moderate Edema, Pitting Edema Extremeties Remarks extensive fluid overload (Fransisca Canela) Neurologic Neuro Exam: Sedated (Fransisca Canela) VTE Prophylaxis Device: SCDs (Fransisca Canela) Assessment/Plan Discussed Condition With: Relative Assessment Summary: VIRIDIANA/Acute Renal Failure, Acute Tubular Necrosis, Fluid/ Volume Overload Problem List: (1) Acute renal failure Plan: He has developed ATN due to sepsis. HD initiated on 08/25. He is on M-W-F HD for now seen during dialysis on 3K, 270 BFR, goal 3L he remains anuric, So far no improvement in the renal function. Avoid nephrotoxic agents. Monitor drug levels when appropriate daily renal panel with electrolytes, Urine measurement. HD to continue as needed. he may need catheter changed prior to next treatment (2) Diverticulitis Plan: s/p colon resection with complications surgery following. multiple positive cultures of wound, catheter tip, and sputum ID following, managing antibiotics. He is on Micafungin and Zosyn continue tube feedings likely will need trach/PEG (Fransisca Canela) Plan patient was seen and examined. Agree with above assessment and plan. (Tito Kuo MD) Problem Qualifiers (1) Acute renal failure: Qualified Code: N17.0 - Acute renal failure with tubular necrosis Fransisca Canela Sep 11, 2016 11:25 Tito Kuo MD Sep 12, 2016 11:36
--- NOTE | 2016-09-11 11:54 | HHI.IDPN ---
Note Infectious Disease Note Notes reviewed. Discussed with RN. Patient is on the vent. No distress. Noted to have copious secretions. Sedated. Afebrile. SERGEI drains with little drainage. Just finished dialysis. 3L removed. WBC still elevated. PAST MEDICAL HISTORY 1. Diverticulitis. 2. COPD. 3. Hypertension. 4. Anxiety disorder. 5. BPH. 6. History of tonsillectomy. ALLERGIES No known drug allergies. ANTIBIOTICS 1. Micafungin. 2. Zosyn SOCIAL HISTORY The patient is a smoker of one pack of cigarettes a day. No alcohol. No illicit drugs. OBJECTIVE: Vital Signs Date Time Temp Pulse Resp B/P Pulse Ox O2 Delivery O2 Flow Rate FiO2 09/11/16 11:11 100 40 09/11/16 10:00 88 09/11/16 08:00 40 09/11/16 08:00 96 09/11/16 07:53 98 40 09/11/16 06:00 100 09/11/16 04:25 98 40 09/11/16 04:00 98.8 98 22 169/85 97 09/11/16 04:00 98 09/11/16 04:00 40 09/11/16 02:00 102 09/11/16 02:00 40 09/11/16 01:20 97 40 09/11/16 00:00 40 09/11/16 00:00 102 09/11/16 00:00 98.7 102 22 164/86 97 09/10/16 22:14 100 40 09/10/16 22:00 92 09/10/16 22:00 40 09/10/16 20:00 98.7 102 22 165/87 99 09/10/16 20:00 102 09/10/16 20:00 40 09/10/16 19:51 100 40 09/10/16 18:00 98 09/10/16 16:44 98 40 09/10/16 16:00 40 09/10/16 16:00 98.3 98 28 120/69 97 09/10/16 16:00 98 09/10/16 14:00 102 09/10/16 12:59 98 40 09/10/16 12:00 98.5 98 22 159/86 97 09/10/16 12:00 40 09/10/16 12:00 98 09/10/16 09/10/1617 15:00 23:00 07:00 Intake Total 891 ml 880 ml 60 ml Output Total 135 ml 460 ml 0 ml Balance 756 ml 420 ml 60 ml IV Total 480 ml 419 ml Tube Feeding 411 ml 381 ml Other 80 ml 60 ml Output Urine Total 0 ml Stool Total 125 ml 400 ml Tube Feeding Residual Discard 0 ml 0 ml 0 ml Drainage Total 10 ml 60 ml Laboratory Tests Test 09/10/16 09/11/16 05:26 05:40 White Blood Count 17.2 TH/MM3 19.7 TH/MM3 Red Blood Count 3.09 MIL/MM3 3.05 MIL/MM3 Hemoglobin 8.8 GM/DL 8.7 GM/DL Hematocrit 26.5 % 26.2 % Mean Corpuscular Volume 85.7 FL 85.7 FL Mean Corpuscular Hemoglobin 28.4 PG 28.5 PG Mean Corpuscular Hemoglobin 33.2 % 33.3 % Concent Red Cell Distribution Width 15.2 % 15.1 % Platelet Count 282 TH/MM3 329 TH/MM3 Mean Platelet Volume 8.4 FL 8.4 FL Neutrophils (%) (Auto) 79.2 % 79.4 % Lymphocytes (%) (Auto) 8.3 % 6.8 % Monocytes (%) (Auto) 8.6 % 10.6 % Eosinophils (%) (Auto) 2.9 % 2.3 % Basophils (%) (Auto) 1.0 % 0.9 % Neutrophils # (Auto) 13.6 TH/MM3 15.7 TH/MM3 Lymphocytes # (Auto) 1.4 TH/MM3 1.3 TH/MM3 Monocytes # (Auto) 1.5 TH/MM3 2.1 TH/MM3 Eosinophils # (Auto) 0.5 TH/MM3 0.4 TH/MM3 Basophils # (Auto) 0.2 TH/MM3 0.2 TH/MM3 CBC Comment AUTO DIFF AUTO DIFF Differential Total Cells 100 100 Counted Neutrophils % (Manual) 71 % 81 % Band Neutrophils % 20 % 7 % Lymphocytes % 3 % 4 % Monocytes % 1 % 5 % Eosinophils % 1 % Basophils % 1 % Neutrophils # (Manual) 16.2 TH/MM3 17.9 TH/MM3 Metamyelocytes 1 % Myelocytes 2 % 3 % Differential Comment FINAL DIFF FINAL DIFF MANUAL MANUAL Platelet Estimate NORMAL NORMAL Platelet Morphology Comment NORMAL NORMAL Stomatocytes 1+ Acanthocytes OCC Red Cell Morphology Comment NORMAL Microbiology Date/Time Procedure Status Source Growth 08/31/16 15:40 Wound Culture - Final Complete Catheter Tip Central Venous Line Pseudomonas Species Staph Sp Coagulase Negative 08/31/16 15:40 Fungal Culture - Final Complete Catheter Tip Central Venous Line 09/01/16 13:45 Gram Stain - Final Complete Abscess Abdomen 09/01/16 13:45 Wound Culture - Final Complete Pseudomonas Aeruginosa Enterococcus Faecalis Iram Glabrata Imaging: Chest X-Ray 09/10/16 0000 Signed Impressions: Service Date/Time: Saturday, September 10, 2016 04:09 - CONCLUSION: 1. Slight improvement of right basilar airspace disease since September 03. Support apparatus unchanged. Miki Banerjee MD Chest X-Ray 09/03/16 0600 Signed Impressions: Service Date/Time: Saturday, September 03, 2016 04:03 - CONCLUSION: Stable left lower lobe consolidation and right lower lung infiltrates. Evelio Boyd MD Retroperitoneal Abscess Drainage 09/01/16 0600 Signed Impressions: Service Date/Time: Thursday, September 01, 2016 13:05 - CONCLUSION: Uncomplicated CT guided drainage of a right lower quadrant fluid collection. Approximately 75 cc of fecal-like brown material was aspirated. The air and fluid collection may communicate with the inferior aspect of the midline wound on the anterior abdominal wall. Claude Carrasco MD Abdomen/Pelvis CT 08/29/16 0000 Signed Impressions: Service Date/Time: Monday, August 29, 2016 17:12 - CONCLUSION: Post surgical changes following partial colon resection. Persistent pockets of fluid. Largest is located in the pelvis and contains an air-fluid level. Abscess formation cannot be excluded. Small bowel ileus Bibasilar airspace disease and pleural effusions Aakash Iqbal MD Abdomen X-Ray 08/24/16 0000 Signed Impressions: Service Date/Time: August 07:44 - CONCLUSION: Gaseous distention of multiple bowel loops possible ileus. Jony Miller MD Enema w/Water Soluble 08/23/16 0000 Signed Impressions: Service Date/Time: Tuesday, August 23, 2016 10:12 - CONCLUSION: Anastomosis appears patent without extravasation. Aditya Rocha MD FACR CT Angiography 08/21/16 0000 Signed Impressions: Service Date/Time: Sunday, August 21, 2016 14:05 - CONCLUSION: 1. There is no evidence for central pulmonary emboli. 2. Minimal subcutaneous air as well as free intraperitoneal air. Aditya Rocha MD FACR PHYSICAL EXAMINATION GENERAL: Sedated on the ventilator. HEENT: The oropharynx is intubated. no icterus. NECK: No adenopathy or swelling. LUNGS: Slight rhonchi at the bases. HEART: Regular rate and rhythm. No audible murmurs, rubs or gallops. ABDOMEN: Distended. Positive bowel sounds. Wound vac in place has henry colored drainage. Decreased serous drainage from the SERGEI drains. EXTREMITIES: No clubbing or cyanosis. 1-2+ edema. Distal pulses 2+. SKIN: Warm and moist. No rash. NEUROLOGIC: Unable to fully assess. IMPRESSION 1. Sepsis. Pseudomonas on CVL culture of removed line. 2. Peritonitis. Post abdominal surgery/Bowel resection - enterococcus, pseudomonas and yeast. 3. Pneumonia due to gram-negative bacteria with sputum culture showing Serratia, Klebsiella and Pseudomonas. New culture has pseudomonas. 4. Leukocytosis secondary to infection. WBC still elevated. 5. Acute renal failure. 6. Acute respiratory failure. Remains on vent. RECOMMENDATIONS 1. Continue micafungin. 2. Continue PIP/Tazobactam. 3. Monitor white blood cell count and temp. Tim Apodaca MD Sep 11, 2016 11:54
--- NOTE | 2016-09-11 12:12 | HHI.CCPN ---
Subjective Remarks/Hospital Course 08/25: Patient is a 58-year-old male with past medical history significant COPD who, on 08/18/16, underwent Laparoscopic robotic extensive lysis of adhesions, low anterior resection and small bowel resection. Apparently he was brought in by Dr. Moffett for Diverticulitis. Patient has a history of hypertension, COPD, and continues to smoke one pack of cigarettes a day. Postoperatively patient became progressively short of breath. Pulmonary was consulted on 08/21/16 as the patient was becoming more hypoxemic requiring BiPAP. CT of the chest PE protocol did not show any pulmonary embolism. Patient was placed on breathing treatments and IV Solu-Medrol 40 mg every [address] Renteria. Today a.m. patient was on 100% nonrebreather. Patient was diagnosed with an anastomotic leak today and was taken back to the OR by Dr. Moffett. He underwent exploratory laparotomy, I&D and loop ileostomy today. Postop patient remained hypoxemic requiring 70% oxygen, and hence was left intubated and critical care medicine was consulted. Dr. Arce evaluated the patient in ICU. He remained hypoxemic, FiO2 70%. Chest x-ray shows bibasilar mild infiltrates. On sedation lightening patient became very hypertensive, not following commands probably secondary to residual NM blockade received while being transported to ICU. Patient on receiving vancomycin Levaquin and Flagyl per Dr. Moffett. Dr. Arce added cefepime to cover for Pseudomonas. Holding Solu-Medrol due to anastomotic leak. 08/26: Remains sedated, orally intubated on mechanical ventilation. Went into anuric renal failure yesterday which did not respond to fluid boluses and diuretics hence was started on hemodialysis after placement of right IJ Vas- Cath. Currently sedated, arousable, remains orally intubated on mechanical ventilation. Blood pressure borderline last evening following dialysis for which she was started on low-dose vasopressin 0.03 units per minute and Levophed which is currently at 1 jose per minute. Started on TPN last night following which he has been hyperglycemic. 08/27: Sedated, arousable, orally intubated on mechanical ventilation. Spiking fevers overnight. Off Levophed, transiently off vasopressin. Remains on TPN. 08/28: Remains sedated, arousable, orally intubated on mechanical ventilation. On low-dose vasopressin. TPN continues. Made about 500 cc of urine in the last 24 hours. 08/29: In sedated, arousable, orally intubated on mechanical ventilation. Remains on TPN. Dirty drainage from left-sided SERGEI drain noted overnight. Dr. Moffett obtaining CT abdomen pelvis with oral contrast and ID consulted. 08/30: CURRENT TEMPERATURE 99. Status post 4 L hemodialysis today. No current change in therapy. White blood cell count remained stable. Off vasopressors. Arousable to voice. Versed has been discontinued. We'll attempt CPAP trials again today. 08/31: MAXIMUM TEMPERATURE 100.4. Currently 100.1. Currently resting in bed in no acute distress. Continues with scant drainage from bilateral JPs. We'll attempt CPAP trial again today. Positive stool from ostomy bag 09/01: Tmax 99.8. Currently 99.3. Placement of the new right IJ vas catheter today. Plan for IR to possibly drain right lower quadrant fluid collection. Arousable and moves all 4 extremity spontaneously. Subjective 09/02: Currently afebrile. Noted placement of iron drain with accordion drain. Growing Pseudomonas. Lasted only 2 hours on CPAP trials today. 09/03: Tolerated SBT for only 30 mins and required PS 20. Not ready to extubate. 09/04: Tachypnea related to anxiety? or metabolic acidosis. Will check VBG. Not tolerating SBT. Anemia. Transfuse during HD. 09/05: Remains very tachypneic on SBTs. Unable to extubate. 09/06: Leukocytosis and bandemia. Acts like ongoing sepsis. 09/07: No significant changes. Afebrile. Tolerating TFs as recommended by CRS. Will transition from TPN to enteral feeds now. 09/08: Bandemia persists. Tolerating full TFs. D/c'd TPN. Glucose control acceptable. 09/09: Tolerating longer CPAP/PS trials. 09/10: Stronger respiratory effort. Try to extubate today. 09/11: Stable hemodynamics, marginal respiratory function. 09/11 update 1800 hrs: Patient developed sudden hyperventilation to 55-60/min, hypertensive urgency to 220/120s, unresponsive state, started versed 10 mg/hr after 10 mg iv. Load with cerebyx, get head CT, EEG in a.m. Objective Vital Signs Date Time Temp Pulse Resp B/P Pulse Ox O2 Delivery O2 Flow Rate FiO2 09/11/16 11:11 100 40 09/11/16 10:00 88 09/11/16 08:00 98.8 26 157/80 Intake and Output 09/10/16 09/10/16 09/11/16 08:00 16:00 00:00 Intake Total 780 ml 891 ml 880 ml Output Total 345.0 ml 135.0 ml 460.0 ml Balance 435.0 ml 756.0 ml 420.0 ml Result Diagram: 09/11/16 0540 09/09/16 0418 Imaging Last Impressions Chest X-Ray 09/01/16 0626 Signed Impressions: Service Date/Time: Thursday, September 01, 2016 06:39 - CONCLUSION: 1. Right internal jugular catheter tip in good position. No evidence of pneumothorax. 2. Persistent bilateral lower lung infiltrates, left greater than right. Evelio Boyd MD Abdomen/Pelvis CT 08/29/16 0000 Signed Impressions: Service Date/Time: Monday, August 29, 2016 17:12 - CONCLUSION: Post surgical changes following partial colon resection. Persistent pockets of fluid. Largest is located in the pelvis and contains an air-fluid level. Abscess formation cannot be excluded. Small bowel ileus Bibasilar airspace disease and pleural effusions Aakash Iqbal MD Abdomen X-Ray 08/24/16 0000 Signed Impressions: Service Date/Time: August 07:44 - CONCLUSION: Gaseous distention of multiple bowel loops possible ileus. Jony Miller MD Enema w/Water Soluble 08/23/16 0000 Signed Impressions: Service Date/Time: Tuesday, August 23, 2016 10:12 - CONCLUSION: Anastomosis appears patent without extravasation. Aditya Rocha MD FACR CT Angiography 08/21/16 0000 Signed Impressions: Service Date/Time: Sunday, August 21, 2016 14:05 - CONCLUSION: 1. There is no evidence for central pulmonary emboli. 2. Minimal subcutaneous air as well as free intraperitoneal air. Aditya Rocha MD FACR Objective Remarks GENERAL: 56-year-old orotracheally intubated in no acute distress SKIN: Warm. Dry. HEAD: Atraumatic. Normocephalic. ENT: Orotracheally intubated NECK: Trachea midline. Supple. CARDIOVASCULAR:, RR. S1, S2.No m,r. RESPIRATORY: Orally intubated on mechanical ventilation, scattered rhonchi, no wheezing. GASTROINTESTINAL: Abdomen non distended. Midline incision clean and intact. BS active. Tolerating TFs. MUSCULOSKELETAL: Extremities with 1+ bilateral upper and lower extremity edema, well perfused. NEUROLOGICAL:Opens eyes, tracks, gestures with hands. Nods head, quite responsive and alert. Pupils equal round and reactive 2 mm bilaterally Date of Insertion: Aug 31, 2016 Line: Central Venous Catheter Side: Right Location: Subclavian A/P Assessment and Plan NEURO/PSYCH: History of anxiety -On Sedation and pain control with Versed as needed and fentanyl infusions for analgesia. -Goal of RASS -2 -Daily sedation vacation, follow neuro status. RESP: Acute hypoxemic respiratory failure COPD exacerbation Probable healthcare associated pneumonia -Continue ACV 22/600 0.75/8/50 Ventilator bundle -Albuterol nebs every 4 hours scheduled and when necessary, Symbicort 2 puffs every 12 was discontinued while in ventilator. Continue Pulmicort twice a day -Broad-spectrum antibiotics as below -Continue daily C Pap trials. Dr. Renteria/Pulmonary following Increase SBTs length CV: Hypotension secondary to septic shock resolved History of hypertension -Received multiple fluid boluses on 08/25. IV fluids discontinued subsequently in view of anuria necessitating hemodialysis. On TPN at 65 cc an hour Off all vasopressors -Attempt negative fluid balance with hemodialysis. GI/ Nutrition: Anastomotic leak status post exploratory laparotomy, I&D, loop ileostomy 08/24/16 s/p Laparoscopic robotic extensive ANNA MARIE, robotic LAR and small bowel resection Laparoscopic robotic ANNA MARIE, robotic LAR and small bowel resection with anastomotic leak History of diverticulitis -Status post exploratory laparotomy, I&D, loop ileostomy 08/24/16 -Postoperative management per Dr. Moffett. Broad-spectrum antibiotics as below. Left SERGEI drain 5 cc. Right SERGEI 25 cc. positive ostomy output CT abdomen pelvis with oral contrast 08/29 reveal small bowel ileus. Serous fluid collection likely postoperative changes. - On Reglan to improve GI motility -Started on TPN 08/25 at 65 cc an hour with lipids daily Protonix for GI prophylaxis According drain to right lower quadrant 09/01 by IR. -160 Renal/: Acute kidney injury History BPH Status post bilateral ureteral stents placed by Dr. Fraser 08/18 -Monitor renal function closely. Mg catheter. -IV fluids discontinued in view of anuric renal failure and hyperkalemia necessitating hemodialysis. Nephrology consulted and following. -Attempt maintaining even to slightly negative fluid balance if blood pressure permits. New right IJ hemodialysis catheter placed 09/01 -> D/C ID: Anastomotic leak Sepsis Probable HCAP -IV vancomycin, Flagyl and Levaquin per Dr. Moffett. Levaquin discontinued . Zosyn started 09/02. Flagyl micafungin per ID added. Pertinent culture 09/01: Abdominal wound - Pseudomonas 08/31 - line culture Pseudomonas/coag negative staph 08/31 - blood cultures 2 -no growth 08/31 - sputum - pending 08/29 - wound - Pseudomonas, group D enterococcus, C. albicans and yeast 08/25 blood cultures - no growth 08/25 sputum - Serratia/Klebsiella/Pseudomonas 08/24 - wound - no growth 09/01 - wound Pseudomonas, Enterococcus, Iram HEME: Leukocytosis Normocytic anemia -Monitor CBC, CMP, coags ENDO: -Sliding-scale insulin for glycemic control. 30 units sliding scale past 24 hours. Levemir 30 units twice a day Nutrition - Prealbumin PROPH: -Bilateral lower extremity SCDs. Heparin subcutaneous for DVT prophylaxis.. Protonix for GI prophylaxis LINES: -Left subclavian central line placed in the OR 08/24 - 08/31. Right subclavian central line placed 08/31 - RIJ dialysis catheter 08/25 -08/31. New right IJ hemodialysis catheter 09/01 Overall impression: Remains ventilator dependent. Neuro change tonight. Concerned about brain event, treat for seizures, swelling, stat CT head, EEG. Critical Care 43 mins Mando Brown MD Sep 11, 2016 12:12
[2016-09-11 13:33] LABS: BICARBONATE 26.2 MEQ/L (21.0-32.0)
[2016-09-11] MEDS: LORazepam 2 MG/ML VIAL IV PUSH PRN (16:26)
[2016-09-11] MEDS ORDERED: CISATRACURIUM BESYLATE 20 MG/10 ML VIAL IV ONE (17:00)
[2016-09-11] MEDS ORDERED: MIDAZOLAM HCL 5 MG/ML VIAL (1 ML) ONE (17:01)
[2016-09-11 17:19] LABS: BLOOD GAS BASE EXCESS -0.2 mmol/L (-2-2); BLOOD GAS CARBOXYHEMOGLOBIN 1.4 % (0-4); BLOOD GAS HCO3 25 mmol/L (22-26); BLOOD GAS METHEMOGLOBIN 1.5 % (0-2); BLOOD GAS O2 HGB SATURATION 90 % (90-100); BLOOD GAS OXYGEN CONTENT 11.6 Vol % (12.0-20.0); BLOOD GAS PCO2 48 mmHg (38-42); BLOOD GAS PO2 73 mmHg (61-120); BLOOD GAS TOTAL HGB 9.1 G/DL (12.0-16.0); CRITICAL VALUE NO; DRAW SITE LT RADIAL; FIO2 40 %; NUMBER OF ARTERIAL PUNCTURES 1; OXYGEN DEVICE VENTILATOR; STAT YES; TEMP CORR TO 98.6; ULNAR PULSE PRESENT; VENT SETTINGS PRVC/AC
[2016-09-11] MEDS ORDERED: MIDAZOLAM HCL 2 MG/2 ML VIAL IV ONE (18:00)
[2016-09-11] MEDS ORDERED: FOSPHENYTOIN INJ 1,500 MGPE in SODIUM CHLORIDE 0.9% INJ 100 ML IV ONE (18:00)
[2016-09-11] MEDS: MIDAZOLAM 100 MG/ML INJ 100 ML IV SCH (18:14)
--- NOTE | 2016-09-11 18:15 | PD.PROCEDR ---
Procedure Note Procedure DX: Resp Failure (J96.01) OP: Insertion Left radial Artery Line (04713) Procedure: Jairo test normal left hand. Left wrist prepped and draped. Left radial artery cannulated with 20 gauge needle and canula easily advanced. Good waveform observed. Circulation to hand intact after procedure. Mando Brown MD Sep 11, 2016 18:15
--- NOTE | 2016-09-11 19:02 | RADRPT ---
EXAM DATE/TIME: 09/11/2016 18:41 [facility] COMPARISON: No previous studies available for comparison. INDICATIONS : Altered mental status, unresponsive. RADIATION DOSE: 60.99 CTDIvol (mGy) MEDICAL HISTORY : Hypertension. renal disease, diabetes SURGICAL HISTORY : Non-responsive. ENCOUNTER: Initial ACUITY: 1 day PAIN SCALE: Non-responsive LOCATION: Bilateral head TECHNIQUE: Multiple contiguous axial images were obtained of the head. Using automated exposure control and adj ustment of the mA and/or kV according to patient size, radiation dose was kept as low as reasonably a chievable to obtain optimal diagnostic quality images. FINDINGS: CEREBRUM: The ventricles are normal for age. No evidence of midline shift, mass lesion, hemorrhage or acute in farction. No extra-axial fluid collections are seen. POSTERIOR FOSSA: The cerebellum and brainstem are intact. The 4th ventricle is midline. The cerebellopontine angle i s unremarkable. EXTRACRANIAL: The visualized portion of the orbits is intact. SKULL: The calvaria is intact. No evidence of skull fracture. CONCLUSION: Normal examination for a patient of this age. Dave Easton MD on September 11, 2016 at 19:00 Board Certified Radiologist. This report was verified electronically.
[2016-09-11] MEDS ORDERED: DIATRIZOATE MEGLUM/DIATRIZOATE SOD 9 ML CUP PO ONE (19:48)
--- NOTE | 2016-09-11 20:23 | HHI.PR ---
Subjective Remarks YOAA male with robotic surgery,COPD exac Underwent exp lap,I&d and loop iliostomy placement Remains on vent Had episode of hypertensive emergency On Diprivan,Fentanyl and Versed CT brain no CVA Objective Vital Signs Vital Signs Date Time Temp Pulse Resp B/P Pulse Ox O2 Delivery O2 Flow Rate FiO2 09/11/16 20:03 99 40 09/11/16 18:30 100 100 09/11/16 18:00 105 09/11/16 17:30 40 09/11/16 17:17 40 09/11/16 16:00 125 09/11/16 16:00 98.9 102 28 182/93 98 09/11/16 16:00 40 09/11/16 15:11 97 40 09/11/16 14:00 99 09/11/16 12:00 93 09/11/16 12:00 40 09/11/16 12:00 99.2 93 26 120/77 98 09/11/16 11:11 100 40 09/11/16 10:00 88 09/11/16 08:00 98.8 96 26 157/80 98 09/11/16 08:00 40 09/11/16 08:00 96 09/11/16 07:53 98 40 09/11/16 06:00 100 09/11/16 04:25 98 40 09/11/16 04:00 98.8 98 22 169/85 97 09/11/16 04:00 98 09/11/16 04:00 40 09/11/16 02:00 102 09/11/16 02:00 40 09/11/16 01:20 97 40 09/11/16 00:00 40 09/11/16 00:00 102 09/11/16 00:00 98.7 102 22 164/86 97 09/10/16 22:14 100 40 09/10/16 22:00 92 09/10/16 22:00 40 I/O 09/10/16 09/10/16 09/10/16 09/11/16 09/11/16 09/11/16 07:00 15:00 23:00 07:00 15:00 23:00 Intake Total 780 ml 891 ml 880 ml 60 ml 990 ml Output Total 345 ml 135 ml 460 ml 0 ml 440 ml Balance 435 ml 756 ml 420 ml 60 ml 550 ml IV Total 460 ml 480 ml 419 ml 610 ml Tube Feeding 320 ml 411 ml 381 ml 380 ml Other 80 ml 60 ml Output Urine Total 0 ml 0 ml Stool Total 300 ml 125 ml 400 ml 400 ml Tube Feeding Residual Discard 0 ml 0 ml 0 ml 0 ml 0 ml Drainage Total 45 ml 10 ml 60 ml 40 ml # Voids 0 Result Diagram: 09/11/16 0540 09/11/16 1245 Objective Remarks GENERAL: WBWN obese male, on Vent , sedated SKIN: Warm and dry. HEAD: Normocephalic. EYES: No scleral icterus. No injection or drainage. NECK: Supple, trachea midline. No JVD or lymphadenopathy. CARDIOVASCULAR: Regular rate and rhythm without murmurs, gallops, or rubs. RESPIRATORY: Breath sounds equal bilaterally. No accessory muscle use. exp rhonchi GASTROINTESTINAL: Abdomen soft, non-tender, Abd distended MUSCULOSKELETAL: No cyanosis, or edema. BACK: Nontender without obvious deformity. No CVA tenderness. A/P Assessment and Plan Resp Failure, on vent COPD exac S/p robotic surgery Anxiety S/p Exp lap PLAN: Cont vent support, aerosol nebs Nebuliser rx qid and prn Abx per ID Sedation with Diprivan, Versed and Fentanyl Will need Trach Robbie Renteria MD Sep 11, 2016 20:22
[2016-09-11 22:38] LABS: BLOOD GAS BASE EXCESS -1.1 mmol/L (-2-2); BLOOD GAS CARBOXYHEMOGLOBIN 1.4 % (0-4); BLOOD GAS HCO3 24 mmol/L (22-26); BLOOD GAS METHEMOGLOBIN 1.2 % (0-2); BLOOD GAS O2 HGB SATURATION 94 % (90-100); BLOOD GAS OXYGEN CONTENT 11.9 Vol % (12.0-20.0); BLOOD GAS PCO2 46 mmHg (38-42); BLOOD GAS PO2 93 mmHg (61-120); BLOOD GAS TOTAL HGB 8.9 G/DL (12.0-16.0); CRITICAL VALUE NO; OXYGEN DEVICE VENTILATOR; TEMP CORR TO 98.6
[2016-09-11 22:39] LABS: DRAW SITE ART LINE; FIO2 40 %; VENT SETTINGS SEE COMMENTS
[2016-09-11 22:40] LABS: STAT YES
[2016-09-12] VITALS (20 sets, daily range): BP systolic 102–161; BP diastolic 48–66; PULSE 87–101; RESP 22–39; TEMP 98.6–99.1; O2SAT 93–100
[2016-09-12] MEDS: RESP: ALBUTEROL 2.5 MG/3 ML NEB (SCH) INH ×7 (00:20→23:14)
[2016-09-12] MEDS: PROPOFOL 1000 MG/100 ML IV SCH ×5 (00:34→22:12)
[2016-09-12] MEDS: PIPERACIL-TAZO 2.25 GM PREMIX 50 ML IV SCH ×4 (00:35→16:48)
[2016-09-12] MEDS: INSULIN ASPART SUPPLEMENTAL SCALE SQ SCH ×6 (03:27→19:52)
[2016-09-12] MEDS: fentaNYL 2,500 MCG/NS 250 ML IV SCH ×2 (03:40→20:15)
[2016-09-12] MEDS ORDERED: EPINEPHrine HCL (1:10,000) 1 MG/10 ML SYRINGE ONE (03:40)
--- NOTE | 2016-09-12 04:36 | RADRPT ---
EXAM DATE/TIME: 09/12/2016 04:12 [facility] COMPARISON: CT ABDOMEN & PELVIS W/O CONTRAST, August 29, 2016, 17:12. INDICATIONS : Evaluate for anastomotic leak. ORAL CONTRAST: Prescribed oral contrast ingested. RADIATION DOSE: 23.30 CTDIvol (mGy) MEDICAL HISTORY : Hypertension. Diabetes mellitus type 2. Diverticulitis. SURGICAL HISTORY : Colon resection. ENCOUNTER: Subsequent ACUITY: 2 weeks PAIN SCALE: Non-responsive LOCATION: abdomen TECHNIQUE: Volumetric scanning of the abdomen and pelvis was performed. Using automated exposure control and ad justment of the mA and/or kV according to patient size, radiation dose was kept as low as reasonably achievable to obtain optimal diagnostic quality images. FINDINGS: Surgical drain is present in the right upper quadrant along the lateral aspect of the liver. NG tube coiled in the stomach. There is a fluid collection in the epigastric region measuring 17.8 x 7.3 cm i n transverse and AP diameter, increased from previous. The pancreas, spleen, adrenal glands, bilatera l kidneys are unremarkable. Urinary bladder is unremarkable. There is an anastomotic staple line at t he level of the sigmoid colon. There is fluid seen in the right paracolic gutter and an ileostomy in the right lower quadrant. There is mesenteric fluid and stranding again seen. The small bowel is norm al in caliber on the current study. There is a small amount of free fluid adjacent to a pigtail sabina ter drain in the right lower quadrant, decreased from previous. The air-fluid collection in the right lower quadrant on the previous study is no longer seen. There is some contrast seen in the distal il eum without contrast extravasation. Anastomotic staple line of small intestine in the right lower martine drant is noted. There is consolidation in both lungs and bilateral pleural effusions. Osseous structu res are intact. CONCLUSION: 1. Small bowel dilatation has resolved. 2. Postsurgical changes are identified with increase in size of epigastric fluid collection, but decr eased fluid within the mesentery and right paracolic region. 3. There is no evidence for enteric contrast media extravasation. 4. Pulmonary consolidation and effusions. Romel Kohli MD on September 12, 2016 at 4:28 Board Certified Radiologist. This report was verified electronically.
[2016-09-12] MEDS: cloNIDine HCL 0.1 MG TAB PO SCH ×4 (05:30→21:57)
[2016-09-12] MEDS: FOSPHENYTOIN SODIUM 100 MG PE/2 ML VIAL IV SCH ×3 (05:39→21:57)
[2016-09-12] MEDS: RESP: BUDESONIDE 0.5 MG/2 ML NEB NEB SCH ×2 (07:41→19:09)
[2016-09-12] MEDS: MICAFUNGIN INJ 100 MG in SODIUM CHLORIDE 0.9% INJ 100 ML IV SCH (08:10)
[2016-09-12] MEDS: CHLORHEXIDINE 0.12% (ORAL KIT) 15 ML CUP MT SCH ×2 (08:10→19:52)
[2016-09-12] MEDS: INSULIN DETEMIR 100 UNITS/ML VIAL SQ SCH ×2 (09:00→19:53)
--- NOTE | 2016-09-12 09:17 | HHI.CCPN ---
Subjective Remarks/Hospital Course 08/25: Patient is a 58-year-old male with past medical history significant COPD who, on 08/18/16, underwent Laparoscopic robotic extensive lysis of adhesions, low anterior resection and small bowel resection. Apparently he was brought in by Dr. Moffett for Diverticulitis. Patient has a history of hypertension, COPD, and continues to smoke one pack of cigarettes a day. Postoperatively patient became progressively short of breath. Pulmonary was consulted on 08/21/16 as the patient was becoming more hypoxemic requiring BiPAP. CT of the chest PE protocol did not show any pulmonary embolism. Patient was placed on breathing treatments and IV Solu-Medrol 40 mg every [address] Renteria. Today a.m. patient was on 100% nonrebreather. Patient was diagnosed with an anastomotic leak today and was taken back to the OR by Dr. Moffett. He underwent exploratory laparotomy, I&D and loop ileostomy today. Postop patient remained hypoxemic requiring 70% oxygen, and hence was left intubated and critical care medicine was consulted. Dr. Arce evaluated the patient in ICU. He remained hypoxemic, FiO2 70%. Chest x-ray shows bibasilar mild infiltrates. On sedation lightening patient became very hypertensive, not following commands probably secondary to residual NM blockade received while being transported to ICU. Patient on receiving vancomycin Levaquin and Flagyl per Dr. Moffett. Dr. Arce added cefepime to cover for Pseudomonas. Holding Solu-Medrol due to anastomotic leak. 08/26: Remains sedated, orally intubated on mechanical ventilation. Went into anuric renal failure yesterday which did not respond to fluid boluses and diuretics hence was started on hemodialysis after placement of right IJ Vas- Cath. Currently sedated, arousable, remains orally intubated on mechanical ventilation. Blood pressure borderline last evening following dialysis for which she was started on low-dose vasopressin 0.03 units per minute and Levophed which is currently at 1 jose per minute. Started on TPN last night following which he has been hyperglycemic. 08/27: Sedated, arousable, orally intubated on mechanical ventilation. Spiking fevers overnight. Off Levophed, transiently off vasopressin. Remains on TPN. 08/28: Remains sedated, arousable, orally intubated on mechanical ventilation. On low-dose vasopressin. TPN continues. Made about 500 cc of urine in the last 24 hours. 08/29: In sedated, arousable, orally intubated on mechanical ventilation. Remains on TPN. Dirty drainage from left-sided SERGEI drain noted overnight. Dr. Moffett obtaining CT abdomen pelvis with oral contrast and ID consulted. 08/30: CURRENT TEMPERATURE 99. Status post 4 L hemodialysis today. No current change in therapy. White blood cell count remained stable. Off vasopressors. Arousable to voice. Versed has been discontinued. We'll attempt CPAP trials again today. 08/31: MAXIMUM TEMPERATURE 100.4. Currently 100.1. Currently resting in bed in no acute distress. Continues with scant drainage from bilateral JPs. We'll attempt CPAP trial again today. Positive stool from ostomy bag 09/01: Tmax 99.8. Currently 99.3. Placement of the new right IJ vas catheter today. Plan for IR to possibly drain right lower quadrant fluid collection. Arousable and moves all 4 extremity spontaneously. Subjective 09/02: Currently afebrile. Noted placement of iron drain with accordion drain. Growing Pseudomonas. Lasted only 2 hours on CPAP trials today. 09/03: Tolerated SBT for only 30 mins and required PS 20. Not ready to extubate. 09/04: Tachypnea related to anxiety? or metabolic acidosis. Will check VBG. Not tolerating SBT. Anemia. Transfuse during HD. 09/05: Remains very tachypneic on SBTs. Unable to extubate. 09/06: Leukocytosis and bandemia. Acts like ongoing sepsis. 09/07: No significant changes. Afebrile. Tolerating TFs as recommended by CRS. Will transition from TPN to enteral feeds now. 09/08: Bandemia persists. Tolerating full TFs. D/c'd TPN. Glucose control acceptable. 09/09: Tolerating longer CPAP/PS trials. 09/10: Stronger respiratory effort. Try to extubate today. 09/11: Stable hemodynamics, marginal respiratory function. 09/11 update 1800 hrs: Patient developed sudden hyperventilation to 55-60/min, hypertensive urgency to 220/120s, unresponsive state, started versed 10 mg/hr after 10 mg iv. Load with cerebyx, get head CT, EEG in a.m. 09/12: BP and pulse rate control improved with sedation. Etiology unclear. Suspected intracranial process but CT head normal. Possibly seizures. EEG pending this morning. WBC with bandemia persists. Objective Vital Signs Date Time Temp Pulse Resp B/P Pulse Ox O2 Delivery O2 Flow Rate FiO2 09/12/16 07:45 96 40 09/12/16 06:00 91 09/12/16 04:00 98.6 39 160/66 Intake and Output 09/11/16 09/11/16 09/12/16 08:00 16:00 00:00 Intake Total 60 ml 990 ml 756 ml Output Total 0 ml 440 ml 290 ml Balance 60 ml 550 ml 466 ml Result Diagram: 09/11/16 0540 09/11/16 1245 Other Results Laboratory Tests Test 09/11/16 09/11/16 17:08 22:29 Blood Gas Puncture Site LT RADIAL ART LINE Blood Gas Patient Temperature 98.6 98.6 Blood Gas HCO3 25 mmol/L 24 mmol/L (22-26) (22-26) Blood Gas Base Excess -0.2 mmol/L -1.1 mmol/L (-2-2) (-2-2) Blood Gas Oxygen Saturation 90 % (90-100) 94 % (90-100) Arterial Blood pH 7.33 7.34 (7.380-7.420) (7.380-7.420) Arterial Blood Partial 48 mmHg (38-42) 46 mmHg (38-42) Pressure CO2 Arterial Blood Partial 73 mmHg 93 mmHg Pressure O2 (61-120) (61-120) Arterial Blood Oxygen Content 11.6 Vol % 11.9 Vol % (12.0-20.0) (12.0-20.0) Arterial Blood 1.4 % (0-4) 1.4 % (0-4) Carboxyhemoglobin Arterial Blood Methemoglobin 1.5 % (0-2) 1.2 % (0-2) Blood Gas Hemoglobin 9.1 G/DL 8.9 G/DL (12.0-16.0) (12.0-16.0) Oxygen Delivery Device VENTILATOR VENTILATOR Blood Gas Ventilator Setting PRVC/AC SEE COMMENTS Blood Gas Inspired Oxygen 40 % 40 % Imaging Last Impressions Chest X-Ray 09/01/16 0626 Signed Impressions: Service Date/Time: Thursday, September 01, 2016 06:39 - CONCLUSION: 1. Right internal jugular catheter tip in good position. No evidence of pneumothorax. 2. Persistent bilateral lower lung infiltrates, left greater than right. Evelio Boyd MD Abdomen/Pelvis CT 08/29/16 0000 Signed Impressions: Service Date/Time: Monday, August 29, 2016 17:12 - CONCLUSION: Post surgical changes following partial colon resection. Persistent pockets of fluid. Largest is located in the pelvis and contains an air-fluid level. Abscess formation cannot be excluded. Small bowel ileus Bibasilar airspace disease and pleural effusions Aakash Iqbal MD Abdomen X-Ray 08/24/16 0000 Signed Impressions: Service Date/Time: August 07:44 - CONCLUSION: Gaseous distention of multiple bowel loops possible ileus. Jony Miller MD Enema w/Water Soluble 08/23/16 0000 Signed Impressions: Service Date/Time: Tuesday, August 23, 2016 10:12 - CONCLUSION: Anastomosis appears patent without extravasation. Aditya Rocha MD FACR CT Angiography 08/21/16 0000 Signed Impressions: Service Date/Time: Sunday, August 21, 2016 14:05 - CONCLUSION: 1. There is no evidence for central pulmonary emboli. 2. Minimal subcutaneous air as well as free intraperitoneal air. Aditya Rocha MD FACR Objective Remarks GENERAL: 56-year-old, heavily sedated. SKIN: Warm. Dry. HEAD: Atraumatic. Normocephalic. ENT: Orotracheally intubated NECK: Trachea midline. Supple. CARDIOVASCULAR:, RR. S1, S2.No m,r. RESPIRATORY: Mechanical ventilation, scattered rhonchi, no wheezing. Rapid rate. GASTROINTESTINAL: Abdomen non distended. Midline incision clean and intact. BS active. MUSCULOSKELETAL: Extremities with Tr+ bilateral upper and lower extremity edema , well perfused. NEUROLOGICAL:Heavily sedated. Pupils equal round and reactive 2 mm bilaterally Date of Insertion: Aug 31, 2016 Line: Central Venous Catheter Side: Right Location: Subclavian A/P Assessment and Plan NEURO/PSYCH: History of anxiety -On Sedation and pain control with Versed as needed and fentanyl infusions for analgesia. -Goal of RASS -2 -Daily sedation vacation, follow neuro status. -Head CT normal 09/11 -EEG today 09/12 RESP: Acute hypoxemic respiratory failure COPD exacerbation Probable healthcare associated pneumonia -Continue ACV 22/600 0.75/8/50 Ventilator bundle -Albuterol nebs every 4 hours scheduled and when necessary, Symbicort 2 puffs every 12 was discontinued while in ventilator. Continue Pulmicort twice a day -Broad-spectrum antibiotics as below -Continue daily C Pap trials. Dr. Renteria/Pulmonary following Increase SBTs length CV: Hypotension secondary to septic shock resolved History of hypertension -Received multiple fluid boluses on 08/25. IV fluids discontinued subsequently in view of anuria necessitating hemodialysis. On TPN at 65 cc an hour Off all vasopressors -Attempt negative fluid balance with hemodialysis. GI/ Nutrition: Anastomotic leak status post exploratory laparotomy, I&D, loop ileostomy 08/24/16 s/p Laparoscopic robotic extensive ANNA MARIE, robotic LAR and small bowel resection Laparoscopic robotic ANNA MARIE, robotic LAR and small bowel resection with anastomotic leak History of diverticulitis -Status post exploratory laparotomy, I&D, loop ileostomy 08/24/16 -Postoperative management per Dr. Moffett. Broad-spectrum antibiotics as below. Left SERGEI drain 5 cc. Right SERGEI 25 cc. positive ostomy output CT abdomen pelvis with oral contrast 08/29 reveal small bowel ileus. Serous fluid collection likely postoperative changes. - On Reglan to improve GI motility -Started on TPN 08/25 at 65 cc an hour with lipids daily Protonix for GI prophylaxis According drain to right lower quadrant 09/01 by IR. -160 Renal/: Acute kidney injury History BPH Status post bilateral ureteral stents placed by Dr. Fraser 08/18 -Monitor renal function closely. Mg catheter. -IV fluids discontinued in view of anuric renal failure and hyperkalemia necessitating hemodialysis. Nephrology consulted and following. -Attempt maintaining even to slightly negative fluid balance if blood pressure permits. New right IJ hemodialysis catheter placed 09/01 -> D/C ID: Anastomotic leak Sepsis Probable HCAP -IV vancomycin, Flagyl and Levaquin per Dr. Moffett. Levaquin discontinued . Zosyn started 09/02. Flagyl micafungin per ID added. Pertinent culture 09/01: Abdominal wound - Pseudomonas 08/31 - line culture Pseudomonas/coag negative staph 08/31 - blood cultures 2 -no growth 08/31 - sputum - pending 08/29 - wound - Pseudomonas, group D enterococcus, C. albicans and yeast 08/25 blood cultures - no growth 08/25 sputum - Serratia/Klebsiella/Pseudomonas 08/24 - wound - no growth 09/01 - wound Pseudomonas, Enterococcus, Iram HEME: Leukocytosis Normocytic anemia -Monitor CBC, CMP, coags ENDO: -Sliding-scale insulin for glycemic control. 30 units sliding scale past 24 hours. Levemir 30 units twice a day Nutrition - Prealbumin PROPH: -Bilateral lower extremity SCDs. Heparin subcutaneous for DVT prophylaxis.. Protonix for GI prophylaxis LINES: -Left subclavian central line placed in the OR 08/24 - 08/31. Right subclavian central line placed 08/31 - RIJ dialysis catheter 08/25 -08/31. New right IJ hemodialysis catheter 09/01 Overall impression: Critically ill and remains ventilator dependent. Neuro change 09/11. Concerned about brain event, treat for seizures, swelling, stat CT head normal, EEG pending. Requiring heavy sedation. Critical Care 35 mins Mando Brown MD Sep 12, 2016 09:17
[2016-09-12] MEDS: CALCIUM ACETATE 667 MG CAP PO SCH ×3 (09:20→16:29)
[2016-09-12] MEDS: amLODIPine BESYLATE 5 MG TAB PO SCH (09:20)
[2016-09-12] MEDS: HEPARIN SODIUM - SQ 10,000 UNITS/ML VIAL SQ SCH ×2 (09:20→19:53)
[2016-09-12] MEDS: MUPIROCIN 2% OINT 1 APPLIC/GM SYR EACH NARE SCH ×2 (09:20→19:52)
[2016-09-12] MEDS: PANTOPRAZOLE SODIUM 40 MG VIAL IVP SCH (09:20)
[2016-09-12] MEDS: SODIUM CHLORIDE 0.9% FLUSH 5 ML FLUSH IVF SCH ×2 (09:21→19:53)
--- NOTE | 2016-09-12 10:15 | MG ---
cc: FELICIA DUARTE MD Lab No: [id number] Date: 09/12/2016 : 1960 Sex: M INDICATION A 56-year-old with unresponsive state, hypertensive urgency on Cerebyx, Versed, Diprivan, fentanyl. Apparently Versed was off during the EEG. DESCRIPTION Delta and admixed theta activity 10-40 microvolts in generalized fashion. Limited driving with photic stimulation. EEG variability and reactivity appreciated. A single lead EKG showing sinus tachycardia. INTERPRETATION Mild to moderate encephalopathy. Clinical correlation. Felicia Duarte MD MG/BT /9:58 AM /10:12 AM
[2016-09-12 10:39] LABS: BLOOD GAS BASE EXCESS -4.7 mmol/L (-2-2); BLOOD GAS CARBOXYHEMOGLOBIN 1.5 % (0-4); BLOOD GAS HCO3 21 mmol/L (22-26); BLOOD GAS METHEMOGLOBIN 1.2 % (0-2); BLOOD GAS O2 HGB SATURATION 91 % (90-100); BLOOD GAS OXYGEN CONTENT 11.2 Vol % (12.0-20.0); BLOOD GAS PCO2 46 mmHg (38-42); BLOOD GAS PO2 76 mmHg (61-120); BLOOD GAS TOTAL HGB 8.7 G/DL (12.0-16.0); CRITICAL VALUE YES; OXYGEN DEVICE VENTILATOR; TEMP CORR TO 98.6
[2016-09-12 10:40] LABS: DRAW SITE ART LINE; FIO2 40 %; STAT YES
[2016-09-12] MEDS ORDERED: SODIUM BICARBONATE 8.4% INJ 50 MEQ/50 ML SYR IV ONE (10:45)
[2016-09-12] MEDS ORDERED: SODIUM BICARBONATE 8.4% INJ 50 MEQ/50 ML SYR ONE (10:50)
[2016-09-12 10:52] LABS: CREATINE KINASE 13 U/L (39-308)
--- NOTE | 2016-09-12 10:57 | HHI.NPPN ---
Subjective General Problems: Edema Renal Failure: Acute Interval History Remains anuric. Apparently became agitated yesterday, tachypneic and hypertensive. Edema has resolved. (Fransisca Canela) Review of Systems General General Remarks unable to evaluate (Fransisca Canela) Objective Data Data 09/11/16 09/12/16 19:00 07:00 Intake Total 990 ml 2204 ml Output Total 440 ml 1130 ml Balance 550 ml 1074 ml IV Total 610 ml 1244 ml Tube Feeding 380 ml 0 ml Other 960 ml Output Urine Total 0 ml 0 ml Stool Total 400 ml 1025 ml Tube Feeding Residual Discard 0 ml Drainage Total 40 ml 105 ml Vital Signs Date Time Temp Pulse Resp B/P Pulse Ox O2 Delivery O2 Flow Rate FiO2 09/12/16 10:49 94 40 09/12/16 07:45 96 40 09/12/16 06:00 91 09/12/16 05:00 93 40 09/12/16 04:31 100 100 09/12/16 04:00 92 09/12/16 04:00 98.6 92 39 160/66 96 09/12/16 04:00 40 09/12/16 02:00 90 09/12/16 01:21 95 40 09/12/16 00:00 99.1 100 38 102/48 95 09/12/16 00:00 40 09/12/16 00:00 100 09/11/16 22:00 98 09/11/16 20:03 99 40 09/11/16 20:00 96 09/11/16 20:00 102.2 96 40 118/52 99 09/11/16 20:00 40 09/11/16 18:30 100 100 09/11/16 18:00 105 09/11/16 17:30 40 09/11/16 17:17 40 09/11/16 16:00 125 09/11/16 16:00 98.9 102 28 182/93 98 09/11/16 16:00 40 09/11/16 15:11 97 40 09/11/16 14:00 99 09/11/16 12:00 93 09/11/16 12:00 40 09/11/16 12:00 99.2 93 26 120/77 98 09/11/16 11:11 100 40 (Fransisca Canela) -: 09/11/16 0540 09/11/16 1245 Imaging Last Impressions Head CT 09/11/16 0000 Signed Impressions: Service Date/Time: Sunday, September 11, 2016 18:41 - CONCLUSION: Normal examination for a patient of this age. Dave Easton MD Abdomen/Pelvis CT 09/11/16 0000 Signed Impressions: Service Date/Time: Monday, September 12, 2016 04:12 - CONCLUSION: 1. Small bowel dilatation has resolved. 2. Postsurgical changes are identified with increase in size of epigastric fluid collection, but decreased fluid within the mesentery and right paracolic region. 3. There is no evidence for enteric contrast media extravasation. 4. Pulmonary consolidation and effusions. Romel Kohli MD Chest X-Ray 09/10/16 0000 Signed Impressions: Service Date/Time: Saturday, September 10, 2016 04:09 - CONCLUSION: 1. Slight improvement of right basilar airspace disease since September 03. Support apparatus unchanged. Miki Banerjee MD Retroperitoneal Abscess Drainage 09/01/16 0600 Signed Impressions: Service Date/Time: Thursday, September 01, 2016 13:05 - CONCLUSION: Uncomplicated CT guided drainage of a right lower quadrant fluid collection. Approximately 75 cc of fecal-like brown material was aspirated. The air and fluid collection may communicate with the inferior aspect of the midline wound on the anterior abdominal wall. Claude Carrasco MD Abdomen X-Ray 08/24/16 0000 Signed Impressions: Service Date/Time: August 07:44 - CONCLUSION: Gaseous distention of multiple bowel loops possible ileus. Jony Miller MD Enema w/Water Soluble 08/23/16 0000 Signed Impressions: Service Date/Time: Tuesday, August 23, 2016 10:12 - CONCLUSION: Anastomosis appears patent without extravasation. Aditya Rocha MD FACR CT Angiography 08/21/16 0000 Signed Impressions: Service Date/Time: Sunday, August 21, 2016 14:05 - CONCLUSION: 1. There is no evidence for central pulmonary emboli. 2. Minimal subcutaneous air as well as free intraperitoneal air. Aditya Rocha MD FACR Tubes & Lines: Vas-Cath, Borden Tubes & Lines Comment TLC, NG tube, SERGEI drain RLQ Drip Comment fentanyl, propofol , versed (Fransisca Canela) Physical Exam General Appearance: No Acute Distress Appearance Remarks intubated, sedated, awakens to stimuli (Fransisca Canela) Throat Throat Exam: Oral Mucosa [place] & Moist (Fransisca Canela) Pulmonary Resp Exam: Breath Sounds Equal, No Distress, Crackles, Sputum, Diminished Breath Sounds Resp Remarks vented, increased secretions (Fransisca Canela) Cardiology CV Exam: Regular, Normal Sinus Rhythm (Fransisca Canela) Gastrointestinal/Abdomen GI Exam: Distended GI Remarks distended, firm; colostomy with red stoma; hyperactive bowel sounds (Fransisca Canela) Musculoskeletal MS Exam: Joints Intact, Normal Tone (Fransisca Canela) Integumentary Skin Exam: Warm, Dry Skin Remarks below umbilicus, midabdominal wound has dehisced (Fransisca Canela) Extremeties Extremities Exam: No Edema, Pedal Pulses Palpable (Fransisca Canela) Neurologic Neuro Exam: Obtunded, Unresponsive, Sedated (Fransisca Canela) VTE Prophylaxis Device: SCDs (Fransisca Canela) Assessment/Plan Discussed Condition With: Relative Assessment Summary: IVRIDIANA/Acute Renal Failure, Acute Tubular Necrosis, Fluid/ Volume Overload Problem List: (1) Acute renal failure Plan: He has developed ATN due to sepsis. HD initiated on 08/25. He is on M-W- HD for now 3L UF yesterday he remains anuric, So far no improvement in the renal function. fluid volume status has improved Avoid nephrotoxic agents. Monitor drug levels when appropriate daily renal panel with electrolytes, Urine measurement. he may need Vascath exchanged prior to next treatment borden was removed I have asked the nurse to perform morning bladder scan to assess for urine production (2) Diverticulitis Plan: s/p colon resection with complications surgery following. multiple positive cultures of wound, catheter tip, and sputum ID following, managing antibiotics. He is on Micafungin and Zosyn continue tube feedings likely will need trach/PEG (Fransisca Canela) Plan patient was seen and examined. He will continue to need dialysis support. Avoid nephrotoxic agents. May need exchange of dialysis catheter as it was not functioning well yesterday. (Tito Kuo MD) Problem Qualifiers (1) Acute renal failure: Qualified Code: N17.0 - Acute renal failure with tubular necrosis Fransisca Canela Sep 12, 2016 10:57 Tito Kuo MD Sep 12, 2016 12:02
--- NOTE | 2016-09-12 17:05 | HHI.PR ---
Subjective Remarks POD#25 s/p robotic LAR/SBR/ANNA MARIE, POD#19 s/p ex lap, washout, diverting loop ileostomy Episode last night, seems resolved now Objective Vital Signs Date Time Temp Pulse Resp B/P Pulse Ox O2 Delivery O2 Flow Rate FiO2 09/12/16 16:00 40 09/12/16 16:00 90 09/12/16 16:00 98.8 91 33 137/57 98 09/12/16 15:51 98 40 09/12/16 14:00 87 09/12/16 12:01 97 40 09/12/16 12:00 40 09/12/16 12:00 94 09/12/16 12:00 98.7 94 32 148/64 93 09/12/16 10:50 40 09/12/16 10:49 94 40 09/12/16 10:00 98 09/12/16 08:00 99.0 95 35 161/65 98 09/12/16 08:00 40 09/12/16 08:00 90 09/12/16 07:45 96 40 09/12/16 06:00 91 09/12/16 05:00 93 40 09/12/16 04:31 100 100 09/12/16 04:00 92 09/12/16 04:00 98.6 92 39 160/66 96 09/12/16 04:00 40 09/12/16 02:00 90 09/12/16 01:21 95 40 09/12/16 00:00 99.1 100 38 102/48 95 09/12/16 00:00 40 09/12/16 00:00 100 09/11/16 22:00 98 09/11/16 20:03 99 40 09/11/16 20:00 96 09/11/16 20:00 102.2 96 40 118/52 99 09/11/16 20:00 40 09/11/16 18:30 100 100 09/11/16 18:00 105 09/11/16 17:30 40 09/11/16 17:17 40 I/O 09/11/16 09/11/16 09/11/16 09/12/16 09/12/16 09/12/16 07:00 15:00 23:00 07:00 15:00 23:00 Intake Total 60 ml 990 ml 756 ml 1448 ml 871 ml Output Total 0 ml 440 ml 290 ml 840 ml 255 ml Balance 60 ml 550 ml 466 ml 608 ml 616 ml IV Total 610 ml 756 ml 488 ml 561 ml Tube Feeding 380 ml 0 ml 0 ml 240 ml Other 60 ml 960 ml 70 ml Output Urine Total 0 ml 0 ml 0 ml 0 ml Stool Total 400 ml 200 ml 825 ml 0 ml Gastric Drainage Total 250 ml Tube Feeding Residual Discard 0 ml 0 ml Drainage Total 40 ml 90 ml 15 ml 5 ml Result Diagram: 09/11/16 0540 09/11/16 1245 Objective Remarks Abdomen soft Wounds clean Drains with serous type drainage Accordian drain slightly murky Ileostomy pink, moderate drainage Assessment and Plan Assessment and Plan CV - stable off pressors RESP - still with pneumonia, high secretions, vent dependent - tracheostomy likely KIDNEY - still anuric, HD FEN - TF's held, will resume after CT guided drainage ID - still with elevated WBC's, Antibiotics per ID Fluid collection behind stomach - not appreciated fully on last CT does not appear to be abscess CT Guided drainage in am Elana Moffett MD Sep 12, 2016 17:05
[2016-09-12] MEDS: hydrALAZINE HCL 20 MG/ML VIAL IV PUSH PRN (17:20)
--- NOTE | 2016-09-12 19:20 | HHI.PR ---
Subjective Remarks YOAA male with robotic surgery,COPD exac Underwent exp lap,I&d and loop iliostomy placement Remains on vent Had episode of hypertensive emergency On Diprivan,Fentanyl and Versed CT abd showes fluid behind stomach Objective Vital Signs Vital Signs Date Time Temp Pulse Resp B/P Pulse Ox O2 Delivery O2 Flow Rate FiO2 09/12/16 19:09 96 40 09/12/16 18:00 101 09/12/16 16:00 40 09/12/16 16:00 90 09/12/16 16:00 98.8 91 33 137/57 98 09/12/16 15:51 98 40 09/12/16 14:00 87 09/12/16 12:01 97 40 09/12/16 12:00 40 09/12/16 12:00 94 09/12/16 12:00 98.7 94 32 148/64 93 09/12/16 10:50 40 09/12/16 10:49 94 40 09/12/16 10:00 98 09/12/16 08:00 99.0 95 35 161/65 98 09/12/16 08:00 40 09/12/16 08:00 90 09/12/16 07:45 96 40 09/12/16 06:00 91 09/12/16 05:00 93 40 09/12/16 04:31 100 100 09/12/16 04:00 92 09/12/16 04:00 98.6 92 39 160/66 96 09/12/16 04:00 40 09/12/16 02:00 90 09/12/16 01:21 95 40 09/12/16 00:00 99.1 100 38 102/48 95 09/12/16 00:00 40 09/12/16 00:00 100 09/11/16 22:00 98 09/11/16 20:03 99 40 09/11/16 20:00 96 09/11/16 20:00 102.2 96 40 118/52 99 09/11/16 20:00 40 I/O 09/11/16 09/11/16 09/11/16 09/12/16 09/12/16 09/12/16 07:00 15:00 23:00 07:00 15:00 23:00 Intake Total 60 ml 990 ml 756 ml 1448 ml 871 ml Output Total 0 ml 440 ml 290 ml 840 ml 255 ml Balance 60 ml 550 ml 466 ml 608 ml 616 ml IV Total 610 ml 756 ml 488 ml 561 ml Tube Feeding 380 ml 0 ml 0 ml 240 ml Other 60 ml 960 ml 70 ml Output Urine Total 0 ml 0 ml 0 ml 0 ml Stool Total 400 ml 200 ml 825 ml 0 ml Gastric Drainage Total 250 ml Tube Feeding Residual Discard 0 ml 0 ml Drainage Total 40 ml 90 ml 15 ml 5 ml Result Diagram: 09/11/16 0540 09/11/16 1245 Objective Remarks GENERAL: WBWN obese male, on Vent , sedated SKIN: Warm and dry. HEAD: Normocephalic. EYES: No scleral icterus. No injection or drainage. NECK: Supple, trachea midline. No JVD or lymphadenopathy. CARDIOVASCULAR: Regular rate and rhythm without murmurs, gallops, or rubs. RESPIRATORY: Breath sounds equal bilaterally. No accessory muscle use. exp rhonchi GASTROINTESTINAL: Abdomen soft, non-tender, Abd distended MUSCULOSKELETAL: No cyanosis, or edema. BACK: Nontender without obvious deformity. No CVA tenderness. A/P Assessment and Plan Resp Failure, on vent COPD exac S/p robotic surgery Anxiety S/p Exp lap PLAN: Cont vent support, aerosol nebs Nebuliser rx qid and prn Abx per ID Sedation with Diprivan, Versed and Fentanyl Will need Trach DW . Robbie Renteria MD Sep 12, 2016 19:20
[2016-09-13] VITALS (21 sets, daily range): BP systolic 123–160; BP diastolic 61–73; PULSE 50–107; RESP 22–29; TEMP 97.7–98.7; O2SAT 94–100
[2016-09-13] MEDS: PIPERACIL-TAZO 2.25 GM PREMIX 50 ML IV SCH ×4 (00:06→18:29)
[2016-09-13] MEDS: PROPOFOL 1000 MG/100 ML IV SCH (00:47)
[2016-09-13] MEDS: RESP: ALBUTEROL 2.5 MG/3 ML NEB (SCH) INH ×6 (03:06→23:28)
[2016-09-13] MEDS: hydrALAZINE HCL 20 MG/ML VIAL IV PUSH PRN (03:13)
[2016-09-13 03:14] LABS: AUTOMATED NEUTROPHIL # 24.4 TH/MM3 (1.8-7.7); BASOPHIL # 0.3 TH/MM3 (0-0.2); EOSINOPHIL # 0.2 TH/MM3 (0-0.4); EOSINOPHIL % 0.7 % (0.0-4.0); HEMATOCRIT 26.4 % (39.0-51.0); LYMPH % 6.5 % (9.0-44.0); LYMPHOCYTE # 1.9 TH/MM3 (1.0-4.8); MEAN CELL VOLUME 86.3 FL (80.0-100.0); MEAN CORPUSCULAR HEMOGLOBIN 29.1 PG (27.0-34.0); MEAN CORPUSCULAR HGB CONC 33.7 % (32.0-36.0); MONO % 9.4 % (0.0-8.0); NEUT % 82.4 % (16.0-70.0); PLATELET COUNT 463 TH/MM3 (150-450); RED BLOOD COUNT 3.06 MIL/MM3 (4.50-5.90); RED CELL DISTRIBUTION WIDTH 15.5 % (11.6-17.2); WHITE BLOOD COUNT 29.7 TH/MM3 (4.0-11.0)
[2016-09-13 03:16] LABS: HEMO FLAGS AUTO DIFF
[2016-09-13] MEDS: LORazepam 2 MG/ML VIAL IV PUSH PRN (03:22)
[2016-09-13] MEDS ORDERED: ATROPINE SULFATE 1 MG/10 ML SYRINGE ONE (03:31)
[2016-09-13] MEDS: LABETALOL HCL 100 MG/20 ML VIAL IV PUSH PRN ×3 (03:36→13:07)
[2016-09-13 03:37] LABS: BLOOD GAS BASE EXCESS -7.3 mmol/L (-2-2); BLOOD GAS CARBOXYHEMOGLOBIN 1.5 % (0-4); BLOOD GAS HCO3 17 mmol/L (22-26); BLOOD GAS METHEMOGLOBIN 1.4 % (0-2); BLOOD GAS O2 HGB SATURATION 94 % (90-100); BLOOD GAS OXYGEN CONTENT 12.3 Vol % (12.0-20.0); BLOOD GAS PCO2 33 mmHg (38-42); BLOOD GAS PO2 96 mmHg (61-120); BLOOD GAS TOTAL HGB 9.2 G/DL (12.0-16.0); CRITICAL VALUE NO; OXYGEN DEVICE VENTILATOR; TEMP CORR TO 98.6
[2016-09-13 03:38] LABS: DRAW SITE ART LINE; FIO2 40 %; STAT YES; VENT SETTINGS PRVC/AC
[2016-09-13] MEDS ORDERED: SODIUM BICARBONATE 8.4% INJ 50 MEQ/50 ML SYR IV PUSH ONE (03:45)
[2016-09-13] MEDS ORDERED: SODIUM BICARBONATE 8.4% INJ 50 MEQ/50 ML SYR ONE ×2 (03:48→03:49)
[2016-09-13] MEDS: INSULIN ASPART SUPPLEMENTAL SCALE SQ SCH ×6 (04:00→20:00)
[2016-09-13] MEDS ORDERED: LACTATED RINGER'S 1000 ML INJ 1,000 ML IV ONE (04:00)
[2016-09-13 04:04] LABS: BANDS 14 % (0-6); BASOPHILS 1 % (0-2); EOSINOPHILS 2 % (0-4); METAMYELOCYTES 3 % (0-1); MYELOCYTES 2 % (0-0); NEUTROPHIL # MANUAL DIFF 23.5 TH/MM3 (1.8-7.7); POLYS (SEG NEUTROPHILS) 59 % (16-70); PROMYELOCYTES 1 % (0-0); WBC DIFF SAMPLE 100
[2016-09-13 04:05] LABS: SCAN/DIFF FINAL DIFF MANUAL
[2016-09-13 04:09] LABS: PLATELET ESTIMATE SMEAR HIGH (NORMAL)
[2016-09-13 04:10] LABS: PLATELET MORPHOLOGY NORMAL (NORMAL)
[2016-09-13 04:50] LABS: POTASSIUM 8.2 MEQ/L (3.5-5.1)
[2016-09-13 04:57] LABS: BICARBONATE 21.2 MEQ/L (21.0-32.0)
[2016-09-13] MEDS ORDERED: DEXTROSE 50% IN WATER 50 ML VIAL(D50) IV PUSH ONE (05:00)
[2016-09-13] MEDS ORDERED: INSULIN HUMAN REGULAR 1,000 UNITS/10 ML VIAL IV PUSH ONE (05:15)
[2016-09-13] MEDS ORDERED: CALCIUM GLUCONATE 10% 1 GM/10 ML VIAL IV PUSH ONE (05:15)
--- NOTE | 2016-09-13 05:40 | PD.PROCEDR ---
Procedure Note Procedure Right Femoral HD catheter placement A time-out was completed verifying correct patient, procedure, site, positioning , and special equipment if applicable. The patient was placed in a dependent position appropriate for central line placement based on the vein to be cannulated. The patients right groin was prepped and draped in sterile fashion. 1% Lidocaine was used to anesthetize the surrounding skin area. A triple lumen 9-Afghan Cordis catheter was introduced into the the common femoral vein using the Seldinger technique and under ultrasound guidance. The catheter was threaded smoothly over the guide wire and appropriate blood return was obtained. Each lumen of the catheter was evacuated of air and flushed with sterile saline. The catheter was then sutured in place to the skin and a sterile dressing applied. Perfusion to the extremity distal to the point of catheter insertion was checked and found to be adequate. Estimated Blood Loss: 1ml The patient tolerated the procedure well and there were no complications. Bigg Snider MD Sep 13, 2016 05:40
[2016-09-13] MEDS: cloNIDine HCL 0.1 MG TAB PO SCH ×3 (06:00→21:09)
[2016-09-13] MEDS: FOSPHENYTOIN SODIUM 100 MG PE/2 ML VIAL IV SCH ×3 (06:29→21:09)
[2016-09-13] MEDS: SODIUM CHLOR 0.9% 1000 ML INJ 1,000 ML IV PRN (07:27)
[2016-09-13] MEDS: GENTAMICIN SULFATE (DIALYSIS USE ONLY) 20 MG/2 ML VIAL IV PRN (07:27)
[2016-09-13] MEDS: HEPARIN SODIUM - IV 10,000 UNITS/10 ML VIAL PRN (07:27)
--- NOTE | 2016-09-13 07:28 | HHI.PR ---
Subjective Remarks POD#26 s/p robotic LAR/SBR/ANNA MARIE, POD#20 s/p ex lap, washout, diverting loop ileostomy Worsened overnight with initial hypertension, followed by hypotension Resolved without pressors Objective Vital Signs Date Time Temp Pulse Resp B/P Pulse Ox O2 Delivery O2 Flow Rate FiO2 09/13/16 06:00 93 09/13/16 04:08 98 40 09/13/16 04:00 40 09/13/16 04:00 98.3 82 29 160/73 97 09/13/16 04:00 50 09/13/16 02:00 76 09/13/16 01:11 98 40 09/13/16 00:00 98.7 86 24 152/70 100 09/13/16 00:00 40 09/13/16 00:00 86 09/12/16 22:00 95 09/12/16 20:00 40 09/12/16 20:00 98.9 94 22 128/54 100 09/12/16 20:00 96 09/12/16 19:09 96 40 09/12/16 18:00 101 09/12/16 16:00 40 09/12/16 16:00 90 09/12/16 16:00 98.8 91 33 137/57 98 09/12/16 15:51 98 40 09/12/16 14:00 87 09/12/16 12:01 97 40 09/12/16 12:00 40 09/12/16 12:00 94 09/12/16 12:00 98.7 94 32 148/64 93 09/12/16 10:50 40 09/12/16 10:49 94 40 09/12/16 10:00 98 09/12/16 08:00 99.0 95 35 161/65 98 09/12/16 08:00 40 09/12/16 08:00 90 09/12/16 07:45 96 40 I/O 09/12/16 09/12/16 09/12/16 09/13/16 09/13/16 09/13/16 07:00 15:00 23:00 07:00 15:00 23:00 Intake Total 1448 ml 871 ml 587 ml 1299 ml Output Total 840 ml 255 ml 55 ml 95 ml Balance 608 ml 616 ml 532 ml 1204 ml IV Total 488 ml 561 ml 557 ml 1299 ml Tube Feeding 0 ml 240 ml 0 ml 0 ml Tube Irrigant 30 ml Other 960 ml 70 ml Output Urine Total 0 ml 0 ml 0 ml 0 ml Stool Total 825 ml 0 ml 25 ml 15 ml Gastric Drainage Total 250 ml 0 ml 50 ml Drainage Total 15 ml 5 ml 30 ml 30 ml Result Diagram: 09/13/16 0239 09/13/16 0425 Objective Remarks Abdomen soft Wounds clean Drains with serous type drainage Accordian drain slightly murky Ileostomy pink, minimal drainage without tf's NGT with 300 cc -- greenish Assessment and Plan Assessment and Plan CV - remains off pressors RESP - secretions slightly better, still likely trach KIDNEY - still anuric, K up this am - undergoing HD now FEN - TF's held, will try after drainage but ngt draining, may need to hold ID - WBC's up CT drainage this am Concern for cholecystitis or perforated ulcer? Elana Moffett MD Sep 13, 2016 07:28
[2016-09-13] MEDS: RESP: BUDESONIDE 0.5 MG/2 ML NEB NEB SCH ×2 (07:41→19:42)
[2016-09-13] MEDS: HEPARIN SODIUM - SQ 10,000 UNITS/ML VIAL SQ SCH ×2 (09:00→20:17)
[2016-09-13] MEDS: INSULIN DETEMIR 100 UNITS/ML VIAL SQ SCH (09:00)
[2016-09-13] MEDS: MICAFUNGIN INJ 100 MG in SODIUM CHLORIDE 0.9% INJ 100 ML IV SCH (09:02)
[2016-09-13] MEDS: CHLORHEXIDINE 0.12% (ORAL KIT) 15 ML CUP MT SCH ×2 (09:02→20:18)
--- NOTE | 2016-09-13 09:20 | EKG ---
Date Performed: 09/13/2016 Time Performed: 03:33:12 PTAGE: 56 years EKG: Sinus bradycardia. Lead(s) unsuitable for analysis: V1 Rightward axis Right bundle branch b lock Inferior/lateral ST-T changes suggest myocardial injury/ischemia Abnormal ECG PREVIOUS TRACING : 09/13/2016 02.17 DOCTOR: Mikel Cash Interpretating Date/Time 09/13/2016 09:18:42
--- NOTE | 2016-09-13 09:21 | EKG ---
Date Performed: 09/13/2016 Time Performed: 02:34:14 PTAGE: 56 years EKG: Sinus rhythm with PAC(s) Right axis deviation IV conduction defect Extensive ST-T changes suggest myocardial inju ry/ischemia Abnormal ECG NO PREVIOUS TRACING DOCTOR: Mikel Cash Interpretating Date/Time 09/13/2016 09:19:34
--- NOTE | 2016-09-13 09:21 | HHI.CCPN ---
Subjective Remarks/Hospital Course 08/25: Patient is a 58-year-old male with past medical history significant COPD who, on 08/18/16, underwent Laparoscopic robotic extensive lysis of adhesions, low anterior resection and small bowel resection. Apparently he was brought in by Dr. Moffett for Diverticulitis. Patient has a history of hypertension, COPD, and continues to smoke one pack of cigarettes a day. Postoperatively patient became progressively short of breath. Pulmonary was consulted on 08/21/16 as the patient was becoming more hypoxemic requiring BiPAP. CT of the chest PE protocol did not show any pulmonary embolism. Patient was placed on breathing treatments and IV Solu-Medrol 40 mg every [address] Renteria. Today a.m. patient was on 100% nonrebreather. Patient was diagnosed with an anastomotic leak today and was taken back to the OR by Dr. Moffett. He underwent exploratory laparotomy, I&D and loop ileostomy today. Postop patient remained hypoxemic requiring 70% oxygen, and hence was left intubated and critical care medicine was consulted. Dr. Arce evaluated the patient in ICU. He remained hypoxemic, FiO2 70%. Chest x-ray shows bibasilar mild infiltrates. On sedation lightening patient became very hypertensive, not following commands probably secondary to residual NM blockade received while being transported to ICU. Patient on receiving vancomycin Levaquin and Flagyl per Dr. Moffett. Dr. Arce added cefepime to cover for Pseudomonas. Holding Solu-Medrol due to anastomotic leak. 08/26: Remains sedated, orally intubated on mechanical ventilation. Went into anuric renal failure yesterday which did not respond to fluid boluses and diuretics hence was started on hemodialysis after placement of right IJ Vas- Cath. Currently sedated, arousable, remains orally intubated on mechanical ventilation. Blood pressure borderline last evening following dialysis for which she was started on low-dose vasopressin 0.03 units per minute and Levophed which is currently at 1 jose per minute. Started on TPN last night following which he has been hyperglycemic. 08/27: Sedated, arousable, orally intubated on mechanical ventilation. Spiking fevers overnight. Off Levophed, transiently off vasopressin. Remains on TPN. 08/28: Remains sedated, arousable, orally intubated on mechanical ventilation. On low-dose vasopressin. TPN continues. Made about 500 cc of urine in the last 24 hours. 08/29: In sedated, arousable, orally intubated on mechanical ventilation. Remains on TPN. Dirty drainage from left-sided SERGEI drain noted overnight. Dr. Moffett obtaining CT abdomen pelvis with oral contrast and ID consulted. 08/30: CURRENT TEMPERATURE 99. Status post 4 L hemodialysis today. No current change in therapy. White blood cell count remained stable. Off vasopressors. Arousable to voice. Versed has been discontinued. We'll attempt CPAP trials again today. 08/31: MAXIMUM TEMPERATURE 100.4. Currently 100.1. Currently resting in bed in no acute distress. Continues with scant drainage from bilateral JPs. We'll attempt CPAP trial again today. Positive stool from ostomy bag 09/01: Tmax 99.8. Currently 99.3. Placement of the new right IJ vas catheter today. Plan for IR to possibly drain right lower quadrant fluid collection. Arousable and moves all 4 extremity spontaneously. 09/02: Currently afebrile. Noted placement of iron drain with accordion drain. Growing Pseudomonas. Lasted only 2 hours on CPAP trials today. 09/03: Tolerated SBT for only 30 mins and required PS 20. Not ready to extubate. 09/04: Tachypnea related to anxiety? or metabolic acidosis. Will check VBG. Not tolerating SBT. Anemia. Transfuse during HD. 09/05: Remains very tachypneic on SBTs. Unable to extubate. 09/06: Leukocytosis and bandemia. Acts like ongoing sepsis. 09/07: No significant changes. Afebrile. Tolerating TFs as recommended by CRS. Will transition from TPN to enteral feeds now. 09/08: Bandemia persists. Tolerating full TFs. D/c'd TPN. Glucose control acceptable. 09/09: Tolerating longer CPAP/PS trials. 09/10: Stronger respiratory effort. Try to extubate today. 09/11: Stable hemodynamics, marginal respiratory function. 09/11 update 1800 hrs: Patient developed sudden hyperventilation to 55-60/min, hypertensive urgency to 220/120s, unresponsive state, started versed 10 mg/hr after 10 mg iv. Load with cerebyx, get head CT, EEG in a.m. 09/12: BP and pulse rate control improved with sedation. Etiology unclear. Suspected intracranial process but CT head normal. Possibly seizures. EEG pending this morning. WBC with bandemia persists. Subjective 09/13: CURRENT TEMPERATURE 99. Heart rate and blood pressure control. Noted T changes last night noted a potassium 8.2. Noted hemodialysis catheter placed by overnight crisis manager in right femoral vein and hemodialysis currently undergoing. Plan for drainage of epigastric fluid collection by IR today. Objective Vital Signs Date Time Temp Pulse Resp B/P Pulse Ox O2 Delivery O2 Flow Rate FiO2 09/13/16 07:41 97 40 09/13/16 06:00 93 09/13/16 04:00 98.3 29 160/73 Intake and Output 09/12/16 09/12/16 09/13/16 08:00 16:00 00:00 Intake Total 1448 ml 871 ml 587 ml Output Total 840 ml 255 ml 55 ml Balance 608 ml 616 ml 532 ml Result Diagram: 09/13/16 0239 09/13/16 0425 Other Results Laboratory Tests Test 09/12/16 09/13/16 10:31 03:28 Blood Gas Puncture Site ART LINE ART LINE Blood Gas Patient Temperature 98.6 98.6 Blood Gas HCO3 21 mmol/L 17 mmol/L (22-26) (22-26) Blood Gas Base Excess -4.7 mmol/L -7.3 mmol/L (-2-2) (-2-2) Blood Gas Oxygen Saturation 91 % (90-100) 94 % (90-100) Arterial Blood pH 7.28 7.34 (7.380-7.420) (7.380-7.420) Arterial Blood Partial 46 mmHg (38-42) 33 mmHg (38-42) Pressure CO2 Arterial Blood Partial 76 mmHg 96 mmHg Pressure O2 (61-120) (61-120) Arterial Blood Oxygen Content 11.2 Vol % 12.3 Vol % (12.0-20.0) (12.0-20.0) Arterial Blood 1.5 % (0-4) 1.5 % (0-4) Carboxyhemoglobin Arterial Blood Methemoglobin 1.2 % (0-2) 1.4 % (0-2) Blood Gas Hemoglobin 8.7 G/DL 9.2 G/DL (12.0-16.0) (12.0-16.0) Oxygen Delivery Device VENTILATOR VENTILATOR Blood Gas Ventilator Setting CPAP,PEEP8,PS12 PRVC/AC Blood Gas Inspired Oxygen 40 % 40 % Imaging Last Impressions Chest X-Ray 09/01/16 0626 Signed Impressions: Service Date/Time: Thursday, September 01, 2016 06:39 - CONCLUSION: 1. Right internal jugular catheter tip in good position. No evidence of pneumothorax. 2. Persistent bilateral lower lung infiltrates, left greater than right. Evelio Boyd MD Abdomen/Pelvis CT 08/29/16 0000 Signed Impressions: Service Date/Time: Monday, August 29, 2016 17:12 - CONCLUSION: Post surgical changes following partial colon resection. Persistent pockets of fluid. Largest is located in the pelvis and contains an air-fluid level. Abscess formation cannot be excluded. Small bowel ileus Bibasilar airspace disease and pleural effusions Aakash Iqbal MD Abdomen X-Ray 08/24/16 0000 Signed Impressions: Service Date/Time: August 07:44 - CONCLUSION: Gaseous distention of multiple bowel loops possible ileus. Jony Miller MD Enema w/Water Soluble 08/23/16 0000 Signed Impressions: Service Date/Time: Tuesday, August 23, 2016 10:12 - CONCLUSION: Anastomosis appears patent without extravasation. Aditya Rocha MD FACR CT Angiography 08/21/16 0000 Signed Impressions: Service Date/Time: Sunday, August 21, 2016 14:05 - CONCLUSION: 1. There is no evidence for central pulmonary emboli. 2. Minimal subcutaneous air as well as free intraperitoneal air. Aditya Rocha MD FACR Objective Remarks GENERAL: 56-year-old, heavily sedated. SKIN: Warm. Dry. HEAD: Atraumatic. Normocephalic. ENT: Orotracheally intubated NECK: Trachea midline. Supple. CARDIOVASCULAR:, RR. S1, S2.No m,r. RESPIRATORY: Mechanical ventilation, scattered rhonchi, no wheezing. Rapid rate. GASTROINTESTINAL: Abdomen non distended. Midline incision clean and intact. BS active. MUSCULOSKELETAL: Extremities with Tr+ bilateral upper and lower extremity edema , well perfused. NEUROLOGICAL:Heavily sedated. Pupils equal round and reactive 2 mm bilaterally Date of Insertion: Aug 31, 2016 Line: Central Venous Catheter Side: Right Location: Subclavian A/P Assessment and Plan NEURO/PSYCH: History of anxiety Acetaminophen for fever Haldol 1 mg every 4 hours when necessary RASS 1-2 Ativan 0.5 mg every one hour when necessary agitation Morphine sulfate 3 mill grams IV every 3 hours when necessary pain -Daily sedation vacation, follow neuro status. -Head CT 09/11 no acute intracranial findings -EEG 09/12 revealed mild to moderate encephalopathy. No epileptiform activity. Currently on Celebrex 100 mg IV 3 times a day. Recheck level in a.m. RESP: Acute hypoxemic respiratory failure COPD exacerbation Probable healthcare associated pneumonia -Continue ACV 22/600 0.75/8/50 Ventilator bundle -Albuterol nebs every 4 hours scheduled and when necessary duo nebs, Symbicort 2 puffs every 12 was discontinued while in ventilator. Continue Pulmicort twice a day -Broad-spectrum antibiotics as below -Continue daily C Pap trials. Dr. Renteria/Pulmonary following Increase SBTs length CV: Hypotension secondary to septic shock resolved History of hypertension -Received multiple fluid boluses on 08/25. IV fluids discontinued subsequently in view of anuria necessitating hemodialysis. Off all vasopressors -Attempt negative fluid balance with hemodialysis. -8 L today Currently on clonidine 0.1 3 times a day Norvasc 5 mg daily. GI/ Nutrition: Anastomotic leak status post exploratory laparotomy, I&D, loop ileostomy 08/24/16 s/p Laparoscopic robotic extensive ANNA MARIE, robotic LAR and small bowel resection Laparoscopic robotic ANNA MARIE, robotic LAR and small bowel resection with anastomotic leak History of diverticulitis -Status post exploratory laparotomy, I&D, loop ileostomy 08/24/16 -Postoperative management per Dr. Moffett. Broad-spectrum antibiotics as below. Left SERGEI drain 5 cc. Right SERGEI 25 cc. positive ostomy output CT abdomen pelvis with oral contrast 08/29 reveal small bowel ileus. Serous fluid collection likely postoperative changes. - On Reglan to improve GI motility -Started on TPN 08/25 at 65 cc an hour with lipids daily Protonix for GI prophylaxis Accordion drain to right lower quadrant 09/01 by IR. -50 cc. Right lower quadrant SERGEI 5 cc. Vac-Pac medial 10 cc Plan IR for drainage of epigastric fluid collections today. Renal/: Acute kidney injury History BPH Status post bilateral ureteral stents placed by Dr. Fraser 08/18 -Monitor renal function closely. Mg catheter. -IV fluids discontinued in view of anuric renal failure and hyperkalemia necessitating hemodialysis. Nephrology consulted and following. -Attempt maintaining even to slightly negative fluid balance if blood pressure permits. New right IJ hemodialysis catheter placed 09/01 -> D/C today. New right femoral hemodialysis catheter placed 09/13 ID: Anastomotic leak Sepsis Probable HCAP -IV vancomycin, Flagyl and Levaquin per Dr. Moffett. Levaquin discontinued . Zosyn started 09/02. Flagyl micafungin per ID added. Pertinent culture 09/01: Abdominal wound - Pseudomonas, enterococcus, Iram 08/31 - line culture Pseudomonas/coag negative staph 08/31 - blood cultures 2 -no growth 08/31 - sputum - pending 08/29 - wound - Pseudomonas, group D enterococcus, C. albicans and yeast 08/25 blood cultures - no growth 08/25 sputum - Serratia/Klebsiella/Pseudomonas 08/24 - wound - no growth HEME: Leukocytosis Normocytic anemia Thrombocytosis -Monitor CBC, CMP, coags ENDO: -Sliding-scale insulin for glycemic control. 0 units sliding scale past 24 hours. Levemir 20 units twice a day currently on hold as nothing by mouth for drain placement today FEN: Hyponatremia Hyperkalemia Hyperphosphatemia Stat hemodialysis today. Recheck potassium post dialysis Continue PhosLo 667 mg 3 times a day for hyperphosphatemia. PROPH: -Bilateral lower extremity SCDs. Heparin subcutaneous for DVT prophylaxis currently on hold due to procedures plan today.. Protonix for GI prophylaxis LINES: -Left subclavian central line placed in the OR 08/24 - 08/31. Right subclavian central line placed 08/31 - 09/11 - RIJ dialysis catheter 08/25 -08/31. New right IJ hemodialysis catheter 09/01 - - Right femoral hemodialysis catheter 09/13 Critical Care: The total critical care time was 35 minutes. Time to perform other separately billable procedures was not included in the critical care time. Discussed with Dr. Ellison/colon rectal surgery Connor Lebron MD Sep 13, 2016 09:21 Connor Lebron MD Sep 13, 2016 09:21
--- NOTE | 2016-09-13 09:22 | EKG ---
Date Performed: 09/13/2016 Time Performed: 02:17:14 PTAGE: 56 years EKG: Sinus rhythm Lead(s) unsuitable for analysis: V1 Right axis deviation Right bundle branch block Inferior/lateral ST-T changes suggest myocardial injury/ischemia Abnormal ECG PREVIOUS TRACING : 08/22/2016 09.38 DOCTOR: Mikel Cash Interpretating Date/Time 09/13/2016 09:20:07
[2016-09-13] MEDS: CALCIUM ACETATE 667 MG CAP PO SCH ×3 (10:16→18:29)
[2016-09-13] MEDS: amLODIPine BESYLATE 5 MG TAB PO SCH (10:16)
[2016-09-13] MEDS: PANTOPRAZOLE SODIUM 40 MG VIAL IVP SCH (10:16)
[2016-09-13] MEDS: SODIUM CHLORIDE 0.9% FLUSH 5 ML FLUSH IVF SCH ×2 (10:16→20:18)
[2016-09-13] MEDS: MUPIROCIN 2% OINT 1 APPLIC/GM SYR EACH NARE SCH ×2 (10:16→20:17)
--- NOTE | 2016-09-13 11:18 | HHI.NPPN ---
Subjective General Problems: Edema Renal Failure: Acute Interval History He had a cardiac event last night, BP dropped and he became bradycardic. Given one liter LR. K today was 8.2. He had new vascath placed and emergently dialyzed. Still intubated, agitated on vent. Anuric. (Fransisca Canela) Review of Systems General General Remarks unable to evaluate (Fransisca Canela) Objective Data Data 09/12/16 09/13/16 19:00 07:00 Intake Total 871 ml 1886 ml Output Total 255 ml 150 ml Balance 616 ml 1736 ml IV Total 561 ml 1856 ml Tube Feeding 240 ml 0 ml Tube Irrigant 30 ml Other 70 ml Output Urine Total 0 ml 0 ml Stool Total 0 ml 40 ml Gastric Drainage Total 250 ml 50 ml Drainage Total 5 ml 60 ml Vital Signs Date Time Temp Pulse Resp B/P Pulse Ox O2 Delivery O2 Flow Rate FiO2 09/13/16 07:41 97 40 09/13/16 06:00 93 09/13/16 04:08 98 40 09/13/16 04:00 40 09/13/16 04:00 98.3 82 29 160/73 97 09/13/16 04:00 50 09/13/16 02:00 76 09/13/16 01:11 98 40 09/13/16 00:00 98.7 86 24 152/70 100 09/13/16 00:00 40 09/13/16 00:00 86 09/12/16 22:00 95 09/12/16 20:00 40 09/12/16 20:00 98.9 94 22 128/54 100 09/12/16 20:00 96 09/12/16 19:09 96 40 09/12/16 18:00 101 09/12/16 16:00 40 09/12/16 16:00 90 09/12/16 16:00 98.8 91 33 137/57 98 09/12/16 15:51 98 40 09/12/16 14:00 87 09/12/16 12:01 97 40 09/12/16 12:00 40 09/12/16 12:00 94 09/12/16 12:00 98.7 94 32 148/64 93 (Fransisca Canela) -: 09/13/16 0239 09/13/16 0425 Imaging Last Impressions Head CT 09/11/16 0000 Signed Impressions: Service Date/Time: Sunday, September 11, 2016 18:41 - CONCLUSION: Normal examination for a patient of this age. Dave Easton MD Abdomen/Pelvis CT 09/11/16 0000 Signed Impressions: Service Date/Time: Monday, September 12, 2016 04:12 - CONCLUSION: 1. Small bowel dilatation has resolved. 2. Postsurgical changes are identified with increase in size of epigastric fluid collection, but decreased fluid within the mesentery and right paracolic region. 3. There is no evidence for enteric contrast media extravasation. 4. Pulmonary consolidation and effusions. Romel Kohli MD Chest X-Ray 09/10/16 0000 Signed Impressions: Service Date/Time: Saturday, September 10, 2016 04:09 - CONCLUSION: 1. Slight improvement of right basilar airspace disease since September 03. Support apparatus unchanged. Miki Banerjee MD Retroperitoneal Abscess Drainage 09/01/16 0600 Signed Impressions: Service Date/Time: Thursday, September 01, 2016 13:05 - CONCLUSION: Uncomplicated CT guided drainage of a right lower quadrant fluid collection. Approximately 75 cc of fecal-like brown material was aspirated. The air and fluid collection may communicate with the inferior aspect of the midline wound on the anterior abdominal wall. Claude Carrasco MD Abdomen X-Ray 08/24/16 0000 Signed Impressions: Service Date/Time: August 07:44 - CONCLUSION: Gaseous distention of multiple bowel loops possible ileus. Jony Miller MD Enema w/Water Soluble 08/23/16 0000 Signed Impressions: Service Date/Time: Tuesday, August 23, 2016 10:12 - CONCLUSION: Anastomosis appears patent without extravasation. Aditya Rocha MD FACR CT Angiography 08/21/16 0000 Signed Impressions: Service Date/Time: Sunday, August 21, 2016 14:05 - CONCLUSION: 1. There is no evidence for central pulmonary emboli. 2. Minimal subcutaneous air as well as free intraperitoneal air. Aditya Rocha MD FACR Tubes & Lines: Vas-Cath Tubes & Lines Comment TLC, NG tube, SERGEI drain RLQ Drip Comment fentanyl, propofol , versed (Fransisca Canela) Physical Exam General Appearance: No Acute Distress Appearance Remarks intubated, sedated, awakens to stimuli (Fransisca CanelaP) Throat Throat Exam: Oral Mucosa [place] & Moist (Fransisca CanelaP) Pulmonary Resp Exam: Breath Sounds Equal, No Distress, Crackles, Sputum, Diminished Breath Sounds Resp Remarks vented, increased secretions (Fransisca CanelaP) Cardiology CV Exam: Regular, Normal Sinus Rhythm (Fransisca Canela) Gastrointestinal/Abdomen GI Exam: Distended GI Remarks distended, firm; colostomy with red stoma; hyperactive bowel sounds (Fransisca Canela STAIN REMOVER) Musculoskeletal MS Exam: Joints Intact, Normal Tone (Fransisca Canela) Integumentary Skin Exam: Warm, Dry Skin Remarks below umbilicus, midabdominal wound has dehisced (Fransisca Canela) Extremeties Extremities Exam: No Edema, Pedal Pulses Palpable (Fransisca Canela) Neurologic Neuro Exam: Obtunded, Unresponsive, Sedated (Fransisca CanelaP) VTE Prophylaxis Device: SCDs (Fransisca Canela) Assessment/Plan Discussed Condition With: Relative Assessment Summary: VIRIDIANA/Acute Renal Failure, Acute Tubular Necrosis, Fluid/ Volume Overload Problem List: (1) Acute renal failure Plan: He has developed ATN due to sepsis. HD initiated on 08/25. He was on M-W-F HD he was hyperkalemic today, which may be due in part to receiving one liter LR, but he is also anuric dialyzed today on a 1K with 3L UF, repeat BMP in process he is highly catabolic, we plan to dialyze daily this week, (Wed, Thurs, Fri, Sat.....hold Sun) So far no improvement in the renal function. reevaluate HD need daily his fluid volume status has improved R femoral vascath placed, R IJ VC to be removed today Avoid nephrotoxic agents. Monitor drug levels when appropriate daily renal panel with electrolytes I have asked the nurse to perform morning bladder scan to assess for urine production Q AM (2) Diverticulitis Plan: s/p colon resection with complications surgery following. multiple positive cultures of wound, catheter tip, and sputum ID following, managing antibiotics. He is on Micafungin and Zosyn tube feedings held in anticipation of procedure today (epigastric fluid collection drain in IR) likely will need trach/PEG (Fransisca Canela) Plan patient was seen and examined. Events noted. Discussed with Dr. Lebron. He was emergently dialyzed because of hyperkalemia with EKG changes. We will plan on daily dialysis as he is anuric, and in highly catabolic state. Avoid LR for IVF as it contains potassium. (Tito Kuo MD) Problem Qualifiers (1) Acute renal failure: Qualified Code: N17.0 - Acute renal failure with tubular necrosis Fransisca Canela Sep 13, 2016 11:18 Tito Kuo MD Sep 14, 2016 07:55
[2016-09-13] MEDS: fentaNYL 2,500 MCG/NS 250 ML IV SCH (12:57)
--- NOTE | 2016-09-13 13:18 | HHI.IDPN ---
Note Infectious Disease Note Discussed with RN. Patient is on the vent. No distress. Episode of hypotension noted. Temp spike. Sedated. Afebrile. SERGEI drains with little drainage. Dialysis this am. WBC still elevated. Higher. PAST MEDICAL HISTORY 1. Diverticulitis. 2. COPD. 3. Hypertension. 4. Anxiety disorder. 5. BPH. 6. History of tonsillectomy. ALLERGIES No known drug allergies. ANTIBIOTICS 1. Micafungin. 2. Zosyn SOCIAL HISTORY The patient is a smoker of one pack of cigarettes a day. No alcohol. No illicit drugs. OBJECTIVE: Vital Signs Date Time Temp Pulse Resp B/P Pulse Ox O2 Delivery O2 Flow Rate FiO2 09/13/16 12:00 98.2 98 23 146/61 94 09/13/16 11:15 95 40 09/13/16 10:00 102 09/13/16 08:00 40 09/13/16 08:00 97.7 94 24 149/71 100 09/13/16 08:00 94 09/13/16 07:41 97 40 09/13/16 06:00 93 09/13/16 04:08 98 40 09/13/16 04:00 40 09/13/16 04:00 98.3 82 29 160/73 97 09/13/16 04:00 50 09/13/16 02:00 76 09/13/16 01:11 98 40 09/13/16 00:00 98.7 86 24 152/70 100 09/13/16 00:00 40 09/13/16 00:00 86 09/12/16 22:00 95 09/12/16 20:00 40 09/12/16 20:00 98.9 94 22 128/54 100 09/12/16 20:00 96 09/12/16 19:09 96 40 09/12/16 18:00 101 09/12/16 16:00 40 09/12/16 16:00 90 09/12/16 16:00 98.8 91 33 137/57 98 09/12/16 15:51 98 40 09/12/16 14:00 87 09/12/16 09/12/16 09/13/16 15:00 23:00 07:00 Intake Total 871 ml 587 ml 1299 ml Output Total 255 ml 55 ml 95 ml Balance 616 ml 532 ml 1204 ml IV Total 561 ml 557 ml 1299 ml Tube Feeding 240 ml 0 ml 0 ml Tube Irrigant 30 ml Other 70 ml Output Urine Total 0 ml 0 ml 0 ml Stool Total 0 ml 25 ml 15 ml Gastric Drainage Total 250 ml 0 ml 50 ml Drainage Total 5 ml 30 ml 30 ml Laboratory Tests Test 09/13/16 02:39 White Blood Count 29.7 TH/MM3 Red Blood Count 3.06 MIL/MM3 Hemoglobin 8.9 GM/DL Hematocrit 26.4 % Mean Corpuscular Volume 86.3 FL Mean Corpuscular Hemoglobin 29.1 PG Mean Corpuscular Hemoglobin 33.7 % Concent Red Cell Distribution Width 15.5 % Platelet Count 463 TH/MM3 Mean Platelet Volume 8.7 FL Neutrophils (%) (Auto) 82.4 % Lymphocytes (%) (Auto) 6.5 % Monocytes (%) (Auto) 9.4 % Eosinophils (%) (Auto) 0.7 % Basophils (%) (Auto) 1.0 % Neutrophils # (Auto) 24.4 TH/MM3 Lymphocytes # (Auto) 1.9 TH/MM3 Monocytes # (Auto) 2.8 TH/MM3 Eosinophils # (Auto) 0.2 TH/MM3 Basophils # (Auto) 0.3 TH/MM3 CBC Comment AUTO DIFF Differential Total Cells 100 Counted Neutrophils % (Manual) 59 % Band Neutrophils % 14 % Lymphocytes % 6 % Monocytes % 12 % Eosinophils % 2 % Basophils % 1 % Neutrophils # (Manual) 23.5 TH/MM3 Metamyelocytes 3 % Myelocytes 2 % Promyelocytes 1 % Differential Comment FINAL DIFF MANUAL Platelet Estimate HIGH Platelet Morphology Comment NORMAL Laboratory Tests Test 09/12/16 09/12/16 09/13/16 09/13/16 05:16 09:42 03:40 04:25 Prealbumin 22 MG/DL Lactic Acid Level 0.4 mmol/L 0.5 mmol/L Total Creatine Kinase 13 U/L Sodium Level 131 MEQ/L Potassium Level 8.2 MEQ/L Chloride Level 92 MEQ/L Carbon Dioxide Level 21.2 MEQ/L Anion Gap 18 MEQ/L Blood Urea Nitrogen 86 MG/DL Creatinine 7.10 MG/DL Estimat Glomerular Filtration 8 ML/MIN Rate Random Glucose 90 MG/DL Calcium Level 9.3 MG/DL Phosphorus Level 11.9 MG/DL Troponin I 0.02 NG/ML Albumin 1.9 GM/DL Microbiology Date/Time Procedure Status Source Growth 08/31/16 15:40 Wound Culture - Final Complete Catheter Tip Central Venous Line Pseudomonas Species Staph Sp Coagulase Negative 08/31/16 15:40 Fungal Culture - Final Complete Catheter Tip Central Venous Line 09/01/16 13:45 Gram Stain - Final Complete Abscess Abdomen 09/01/16 13:45 Wound Culture - Final Complete Pseudomonas Aeruginosa Enterococcus Faecalis [facility]: Head CT 09/11/16 0000 Signed Impressions: Service Date/Time: Sunday, September 11, 2016 18:41 - CONCLUSION: Normal examination for a patient of this age. Dave Easton MD Abdomen/Pelvis CT 09/11/16 0000 Signed Impressions: Service Date/Time: Monday, September 12, 2016 04:12 - CONCLUSION: 1. Small bowel dilatation has resolved. 2. Postsurgical changes are identified with increase in size of epigastric fluid collection, but decreased fluid within the mesentery and right paracolic region. 3. There is no evidence for enteric contrast media extravasation. 4. Pulmonary consolidation and effusions. Romel Kohli MD Chest X-Ray 09/10/16 0000 Signed Impressions: Service Date/Time: Saturday, September 10, 2016 04:09 - CONCLUSION: 1. Slight improvement of right basilar airspace disease since September 03. Support apparatus unchanged. Miki Banerjee MD Chest X-Ray 09/03/16 0600 Signed Impressions: Service Date/Time: Saturday, September 03, 2016 04:03 - CONCLUSION: Stable left lower lobe consolidation and right lower lung infiltrates. Evelio Boyd MD Retroperitoneal Abscess Drainage 09/01/16 0600 Signed Impressions: Service Date/Time: Thursday, September 01, 2016 13:05 - CONCLUSION: Uncomplicated CT guided drainage of a right lower quadrant fluid collection. Approximately 75 cc of fecal-like brown material was aspirated. The air and fluid collection may communicate with the inferior aspect of the midline wound on the anterior abdominal wall. Claude Carrasco MD Abdomen/Pelvis CT 08/29/16 0000 Signed Impressions: Service Date/Time: Monday, August 29, 2016 17:12 - CONCLUSION: Post surgical changes following partial colon resection. Persistent pockets of fluid. Largest is located in the pelvis and contains an air-fluid level. Abscess formation cannot be excluded. Small bowel ileus Bibasilar airspace disease and pleural effusions Aakahs Iqbal MD Abdomen X-Ray 08/24/16 0000 Signed Impressions: Service Date/Time: August 07:44 - CONCLUSION: Gaseous distention of multiple bowel loops possible ileus. Jony Miller MD Enema w/Water Soluble 08/23/16 0000 Signed Impressions: Service Date/Time: Tuesday, August 23, 2016 10:12 - CONCLUSION: Anastomosis appears patent without extravasation. Aditya Rocha MD FACR CT Angiography 08/21/16 0000 Signed Impressions: Service Date/Time: Sunday, August 21, 2016 14:05 - CONCLUSION: 1. There is no evidence for central pulmonary emboli. 2. Minimal subcutaneous air as well as free intraperitoneal air. Aditya Rocha MD FACR PHYSICAL EXAMINATION GENERAL: Sedated on the ventilator. HEENT: The oropharynx is intubated. No icterus. NECK: No adenopathy or swelling. LUNGS: Bibasilar rhonchi. HEART: Regular rate and rhythm. No audible murmurs, rubs or gallops. ABDOMEN: Positive bowel sounds. Wound vac in place has henry colored drainage. Decreased serous drainage from the SERGEI drains. Accordion drain has light chocolate colored drainage. EXTREMITIES: No clubbing or cyanosis. 1+ edema. Distal pulses 2+. SKIN: Warm and moist. No rash. NEUROLOGIC: Unable to fully assess. IMPRESSION 1. Sepsis. Pseudomonas on CVL culture of removed line. 2. Peritonitis. Post abdominal surgery/Bowel resection - enterococcus, pseudomonas and yeast. 3. Pneumonia due to gram-negative bacteria with sputum culture showing Serratia, Klebsiella and Pseudomonas. New culture has pseudomonas. 4. Leukocytosis secondary to infection. WBC still elevated. likely from abdominbal abscess. 5. Acute renal failure. 6. Acute respiratory failure. Remains on vent. RECOMMENDATIONS 1. Continue micafungin. 2. Continue PIP/Tazobactam. 3. Monitor white blood cell count and temp. 4. Agree with abdominal fluid drainage. Tim Apodaca MD Sep 13, 2016 13:18
[2016-09-13 13:38] LABS: BICARBONATE 27.2 MEQ/L (21.0-32.0); POTASSIUM 5.3 MEQ/L (3.5-5.1)
[2016-09-13] MEDS ORDERED: LIDOCAINE 1%/EPINEPHrine 1:100,000 SOLN 20 ML VIAL ONE (14:11)
[2016-09-13] MEDS ORDERED: ROCURONIUM INJ 50 MG/5 ML VIAL IV ONE (15:00)
--- NOTE | 2016-09-13 16:25 | RADRPT ---
EXAM DATE/TIME: 09/13/2016 14:30 [facility] COMPARISON: No previous studies available for comparison. INDICATIONS : Epigastric abscess. DEVICE(S): 1.) 10 Fr Skater Locking FLUID: Total volume of 20 cc of cloudy pus-like yellow fluid was obtained for culture and sensitivity. Fluid was sent for laboratory ordered studies. MEDICAL HISTORY : Hypertension. Chronic obstructive pulmonary disease. Diverticulitis. Stage 3 renal disease SURGICAL HISTORY : None. ENCOUNTER: Initial ACUITY: 3 days PAIN SCORE: Non-responsive LOCATION: Epigastric abdomen/pelvis PROCEDURE : 1. CT guided drainage of the mid epigastric abscess 2. Conscious sedation with continuous EKG and oximetry monitoring. The risks, benefits and alternatives to the procedure were explained and verbal and written consent w as obtained. Using automated exposure control and adjustment of the mA and/or kV according to patient size, radiation dose was kept as low as reasonably achievable to obtain optimal diagnostic quality i mages. The site was prepped in sterile fashion. Full sterile technique was used, including cap, ma sk, sterile gloves and gown and a large sterile sheet. Hand hygiene and 2% chlorhexidine and/or beta dine/alcohol prep was utilized per protocol for cutaneous antisepsis. The skin and subcutaneous tiss ues were infiltrated with local anesthetic solution. Using CT guidance the prescribed site was localized. Drainage was performed using the prescribed cat heter The patient tolerated the procedure well and there were no complications. Conscious sedation was per formed with the prescribed dosages and duration as above in the presence of an independent trained ra diology nurse to assist in the monitoring of the patient. EKG and oximetry remained stable throughou t the procedure. The patient tolerated the procedure well and there were no complications. The patient was sent to pos t anesthesia recovery in stable condition. CONCLUSION: Uncomplicated CT guided drainage. Carlo Cortes MD on September 13, 2016 at 16:21 Board Certified Radiologist. This report was verified electronically.
[2016-09-13] MEDS: SODIUM CHLORIDE 0.9% 10 ML VIAL IV FLUSH SCH (17:30)
--- NOTE | 2016-09-13 17:37 | PD.PROCEDR ---
Procedure Note Procedure DATE: 09/13/2016 Fiberoptic bronchoscopy: INDICATION: Fever, inability to wean vent CONSENT Informed consent for procedure was obtained from family. DESCRIPTION OF THE PROCEDURE The patient was placed at 30. Ventilator was using PRVC ventilation with FiO2 100%. Patient was anesthetized using Versed drip at 4 mg an hour, and a fentanyl drip at 150 g an hour. Patient was given 4 mg of Versed IV along with fentanyl 50 mg prior to procedure. Paralytic provider was rocuronium and 50 mg IV 1. I entered the 8.0 ET tube with fiberoptic bronchoscope. The ETT tube was coated with thick white secretions. The bronchoscope was advanced to the lj which was sharp. It was then advanced to the left mainstem and its subsegments segments, large thick white mucous plug in the left mainstem. This was suctioned with copious amounts of sterile saline. Left upper lingula and lower lobe were visualized. The mucosa was normal. This again was suctioned with copious amounts of sterile saline with thick white secretions. There is most most thick white secretions in these second and third sub segments which were all suctioned to clear with sterile saline. There were no other findings including evidence of mass, anatomic distortions or hemorrhage. The bronchoscope was subsequently withdrawn and advanced into the right mainstem. Each segment was evaluated and were well visualized. The right upper lobe anatomy was within normal limits. No specific masses or other lesions were identified throughout the tracheobronchial tree on the right. The bronchoscope was then advanced to the bronchus intermedius to the right middle and right lower lobe. No lesions were identified. Wedged in the right middle lobe and 30 cc of sterile saline lavage white mucous plugs easily. Lavaging was also performed throughout the right lower lobe. Again mucosa was normal. Scope was withdrawn and procedure was halted. Saturations remain between 98 and 100% throughout the procedure. ESTIMATED BLOOD LOSS: Minimal COMPLICATIONS: No apparent complications. Connor Lebron MD Sep 13, 2016 17:37
--- NOTE | 2016-09-13 17:56 | RADRPT ---
EXAM DATE/TIME: 09/13/2016 17:34 [facility] COMPARISON: CT ABDOMEN & PELVIS W/O CONTRAST, September 12, 2016, 4:12. CHEST SINGLE AP, September 10, 2016, 4:09. INDICATIONS : Post bronchoscopy. MEDICAL HISTORY : Chronic obstructive pulmonary disease. SURGICAL HISTORY : None. ENCOUNTER: Subsequent ACUITY: 3 weeks PAIN SCORE: Non-responsive. LOCATION: Bilateral chest FINDINGS: Endotracheal tube is present with tip several centimeters above the lj. Nasogastric tube coils in the stomach. A surgical drain overlies the right upper quadrant. A pigtail drain overlies the left u pper quadrant. There is airspace opacity throughout the right lung. Left lung is grossly stable with mild perihilar and basilar parenchymal opacity. Cardiomediastinal contours are grossly stable account ing for differences in technique and projection. CONCLUSION: Worsening aeration throughout the right lung Claude Rosario MD on September 13, 2016 at 17:52 Board Certified Radiologist. This report was verified electronically.
--- NOTE | 2016-09-13 18:58 | HHI.PR ---
Subjective Remarks YOAA male with robotic surgery,COPD exac Underwent exp lap,I&d and loop iliostomy placement Remains on vent On Diprivan,Fentanyl and Versed had Emergent HD due to increased K+ Had abd fluid drainage by IR required bronch for increased secretions Objective Vital Signs Vital Signs Date Time Temp Pulse Resp B/P Pulse Ox O2 Delivery O2 Flow Rate FiO2 09/13/16 18:00 93 09/13/16 17:51 100 100 09/13/16 16:24 95 40 09/13/16 16:00 97.9 97 22 147/67 100 09/13/16 16:00 97 09/13/16 16:00 40 09/13/16 14:00 107 09/13/16 13:50 100 100 09/13/16 12:00 98 09/13/16 12:00 98.2 98 23 146/61 94 09/13/16 12:00 40 09/13/16 11:15 95 40 09/13/16 10:00 102 09/13/16 08:00 40 09/13/16 08:00 97.7 94 24 149/71 100 09/13/16 08:00 94 09/13/16 07:41 97 40 09/13/16 06:00 93 09/13/16 04:08 98 40 09/13/16 04:00 40 09/13/16 04:00 98.3 82 29 160/73 97 09/13/16 04:00 50 09/13/16 02:00 76 09/13/16 01:11 98 40 09/13/16 00:00 98.7 86 24 152/70 100 09/13/16 00:00 40 09/13/16 00:00 86 09/12/16 22:00 95 09/12/16 20:00 40 09/12/16 20:00 98.9 94 22 128/54 100 09/12/16 20:00 96 09/12/16 19:09 96 40 I/O 09/12/16 09/12/16 09/12/16 09/13/16 09/13/16 09/13/16 07:00 15:00 23:00 07:00 15:00 23:00 Intake Total 1448 ml 871 ml 587 ml 1299 ml 601 ml 50 ml Output Total 840 ml 255 ml 55 ml 95 ml 3243 ml Balance 608 ml 616 ml 532 ml 1204 ml -2642 ml 50 ml IV Total 488 ml 561 ml 557 ml 1299 ml 491 ml Tube Feeding 0 ml 240 ml 0 ml 0 ml 0 ml Tube Irrigant 30 ml Other 960 ml 70 ml 110 ml 50 ml Output Urine Total 0 ml 0 ml 0 ml 0 ml 13 ml Stool Total 825 ml 0 ml 25 ml 15 ml 125 ml Gastric Drainage Total 250 ml 0 ml 50 ml 100 ml Drainage Total 15 ml 5 ml 30 ml 30 ml 5 ml Hemodialysis 3000 ml Bladder Scan Volume Amount 13 ml Result Diagram: 09/13/16 0239 09/13/16 1220 Objective Remarks GENERAL: WBWN obese male, on Vent , sedated SKIN: Warm and dry. HEAD: Normocephalic. EYES: No scleral icterus. No injection or drainage. NECK: Supple, trachea midline. No JVD or lymphadenopathy. CARDIOVASCULAR: Regular rate and rhythm without murmurs, gallops, or rubs. RESPIRATORY: Breath sounds equal bilaterally. No accessory muscle use. exp rhonchi GASTROINTESTINAL: Abdomen soft, non-tender, Abd distended MUSCULOSKELETAL: No cyanosis, or edema. BACK: Nontender without obvious deformity. No CVA tenderness. A/P Assessment and Plan Resp Failure, on vent COPD exac S/p robotic surgery Anxiety S/p Exp lap PLAN: Cont vent support, aerosol nebs Nebuliser rx qid and prn Abx per ID Sedation with Diprivan, Versed and Fentanyl Trach palnned for tommorrow. Robbie Renteria MD Sep 13, 2016 18:57
[2016-09-13 20:09] LABS: LAVAGE TOTAL WBC COUNT 82.3 MILLION (4.7-7.1)
[2016-09-13 20:10] LABS: BRONCHOALVEOLAR LAVAGE RBC 200 /MM3; BRONCHOALVEOLAR LAVAGE WBC 9150 /MM3; BRONCHOAVEOLAR EOSINOPHILS 2 %; BRONCHOAVEOLAR HISTIOCYTES 3 %; BRONCHOAVEOLAR LYMPHOCYTES 2 %; BRONCHOAVEOLAR NEUTROPHILS 93 %
--- NOTE | 2016-09-13 21:02 | EC ---
Study Study Date:09/13/2016 STUDY CONCLUSIONS SUMMARY LEFT VENTRICLE: The cavity size was normal. Wall thickness was normal. Systolic function was normal. The estimated ejection fraction was 60%. Wall motion was normal; there were no regional wall motion abnormalities. If LV function is below 40, please consider prescribing an ACEI or ARB or document rationale for non-use. PROCEDURE DATA STUDY STATUS: Elective. Procedure: Transthoracic echocardiography. Image quality was good. Scanning was performed from the parasternal, apical, and subcostal acoustic windows. Study completion: The patient tolerated the procedure well. Transthoracic echocardiography. M-mode, complete 2D, complete spectral Doppler, and color Doppler. Patient status: Inpatient. CARDIAC ANATOMY LEFT VENTRICLE: The cavity size was normal. Wall thickness was normal. Systolic function was normal. The estimated ejection fraction was 60%. Wall motion was normal; there were no regional wall motion abnormalities. AORTIC VALVE: Trileaflet; normal thickness leaflets. Doppler: Transvalvular velocity was within the normal range. There was no stenosis. No regurgitation. AORTA: Aortic root: The aortic root was normal in size. MITRAL VALVE: Structurally normal valve. Doppler: Transvalvular velocity was within the normal range. There was no evidence for stenosis. No regurgitation. LEFT ATRIUM: The atrium was normal in size. RIGHT VENTRICLE: The cavity size was normal. Wall thickness was normal. PULMONIC VALVE: Doppler: Transvalvular velocity was within the normal range. There was no evidence for stenosis. No regurgitation. TRICUSPID VALVE: Structurally normal valve. Doppler: Transvalvular velocity was within the normal range. Trace regurgitation. PULMONARY ARTERY: The main pulmonary artery was normal-sized. Systolic pressure was within the normal range. RIGHT ATRIUM: The atrium was normal in size. PERICARDIUM: There was no pericardial effusion. SYSTEMIC VEINS: Inferior vena cava: The vessel was normal in size. Prepared and signed by Gurjit Benedict [id number]
[2016-09-14] VITALS (18 sets, daily range): BP systolic 67–166; BP diastolic 79–103; PULSE 92–125; RESP 22–26; TEMP 98.3–100.5; O2SAT 96–100
[2016-09-14] MEDS: MIDAZOLAM 100 MG/ML INJ 100 ML IV SCH ×2 (00:01→14:58)
[2016-09-14] MEDS: PIPERACIL-TAZO 2.25 GM PREMIX 50 ML IV SCH ×4 (00:01→17:06)
[2016-09-14] MEDS: SODIUM CHLORIDE 0.9% 10 ML VIAL IV FLUSH SCH ×3 (00:34→17:15)
[2016-09-14] MEDS: LABETALOL HCL 100 MG/20 ML VIAL IV PUSH PRN ×4 (02:20→23:09)
[2016-09-14] MEDS: RESP: ALBUTEROL 2.5 MG/3 ML NEB (SCH) INH ×5 (03:37→20:10)
[2016-09-14] MEDS: INSULIN ASPART SUPPLEMENTAL SCALE SQ SCH ×6 (04:00→20:00)
[2016-09-14 04:33] LABS: AUTOMATED NEUTROPHIL # 14.2 TH/MM3 (1.8-7.7); BASOPHIL # 0.2 TH/MM3 (0-0.2); EOSINOPHIL # 0.5 TH/MM3 (0-0.4); EOSINOPHIL % 2.9 % (0.0-4.0); LYMPHOCYTE # 1.1 TH/MM3 (1.0-4.8); MEAN CELL VOLUME 84.4 FL (80.0-100.0); MEAN CORPUSCULAR HEMOGLOBIN 28.1 PG (27.0-34.0); MEAN CORPUSCULAR HGB CONC 33.3 % (32.0-36.0); MONO % 10.8 % (0.0-8.0); NEUT % 79.3 % (16.0-70.0); PLATELET COUNT 468 TH/MM3 (150-450); RED BLOOD COUNT 2.85 MIL/MM3 (4.50-5.90); RED CELL DISTRIBUTION WIDTH 15.4 % (11.6-17.2)
[2016-09-14 04:40] LABS: HEMO FLAGS AUTO DIFF
[2016-09-14 04:59] LABS: ALKALINE PHOSPHATASE 303 U/L (45-117); ALT (GPT) 11 U/L (12-78); ANION GAP 17 MEQ/L (5-15); AST (GOT) 38 U/L (15-37); BICARBONATE 25.1 MEQ/L (21.0-32.0); BLOOD UREA NITROGEN 66 MG/DL (7-18); CHLORIDE 95 MEQ/L (98-107); GLOMERULAR FILTRATION RATE 10 ML/MIN (>89); MAGNESIUM 2.2 MG/DL (1.5-2.5); POTASSIUM 5.7 MEQ/L (3.5-5.1); SODIUM (NA) 137 MEQ/L (136-145); TOTAL BILIRUBIN ADULT 2.6 MG/DL (0.2-1.0)
[2016-09-14] MEDS: DEXTROSE 50% IN WATER 50 ML VIAL(D50) IV PRN (05:01)
[2016-09-14] MEDS: FOSPHENYTOIN SODIUM 100 MG PE/2 ML VIAL IV SCH ×3 (05:09→22:04)
[2016-09-14] MEDS: cloNIDine HCL 0.1 MG TAB PO SCH ×3 (05:10→22:04)
[2016-09-14] MEDS: fentaNYL 2,500 MCG/NS 250 ML IV SCH ×2 (05:16→22:04)
[2016-09-14 05:26] LABS: BANDS 3 % (0-6); BASOPHILS 1 % (0-2); EOSINOPHILS 4 % (0-4); METAMYELOCYTES 2 % (0-1); MYELOCYTES 1 % (0-0); NEUTROPHIL # MANUAL DIFF 15.5 TH/MM3 (1.8-7.7); POLYS (SEG NEUTROPHILS) 80 % (16-70); STOMATOCYTES 2+ (NORMAL); WBC DIFF SAMPLE 100
[2016-09-14 05:27] LABS: PLATELET ESTIMATE SMEAR HIGH (NORMAL); PLATELET MORPHOLOGY NORMAL (NORMAL); SCAN/DIFF FINAL DIFF MANUAL
[2016-09-14] MEDS: RESP: BUDESONIDE 0.5 MG/2 ML NEB NEB SCH ×3 (08:00→20:10)
--- NOTE | 2016-09-14 08:12 | HHI.CCPN ---
Subjective Remarks/Hospital Course 08/25: Patient is a 58-year-old male with past medical history significant COPD who, on 08/18/16, underwent Laparoscopic robotic extensive lysis of adhesions, low anterior resection and small bowel resection. Apparently he was brought in by Dr. Moffett for Diverticulitis. Patient has a history of hypertension, COPD, and continues to smoke one pack of cigarettes a day. Postoperatively patient became progressively short of breath. Pulmonary was consulted on 08/21/16 as the patient was becoming more hypoxemic requiring BiPAP. CT of the chest PE protocol did not show any pulmonary embolism. Patient was placed on breathing treatments and IV Solu-Medrol 40 mg every [address] Renteria. Today a.m. patient was on 100% nonrebreather. Patient was diagnosed with an anastomotic leak today and was taken back to the OR by Dr. Moffett. He underwent exploratory laparotomy, I&D and loop ileostomy today. Postop patient remained hypoxemic requiring 70% oxygen, and hence was left intubated and critical care medicine was consulted. Dr. Arce evaluated the patient in ICU. He remained hypoxemic, FiO2 70%. Chest x-ray shows bibasilar mild infiltrates. On sedation lightening patient became very hypertensive, not following commands probably secondary to residual NM blockade received while being transported to ICU. Patient on receiving vancomycin Levaquin and Flagyl per Dr. Moffett. Dr. Arce added cefepime to cover for Pseudomonas. Holding Solu-Medrol due to anastomotic leak. 08/26: Remains sedated, orally intubated on mechanical ventilation. Went into anuric renal failure yesterday which did not respond to fluid boluses and diuretics hence was started on hemodialysis after placement of right IJ Vas- Cath. Currently sedated, arousable, remains orally intubated on mechanical ventilation. Blood pressure borderline last evening following dialysis for which she was started on low-dose vasopressin 0.03 units per minute and Levophed which is currently at 1 jose per minute. Started on TPN last night following which he has been hyperglycemic. 08/27: Sedated, arousable, orally intubated on mechanical ventilation. Spiking fevers overnight. Off Levophed, transiently off vasopressin. Remains on TPN. 08/28: Remains sedated, arousable, orally intubated on mechanical ventilation. On low-dose vasopressin. TPN continues. Made about 500 cc of urine in the last 24 hours. 08/29: In sedated, arousable, orally intubated on mechanical ventilation. Remains on TPN. Dirty drainage from left-sided SERGEI drain noted overnight. Dr. Moffett obtaining CT abdomen pelvis with oral contrast and ID consulted. 08/30: CURRENT TEMPERATURE 99. Status post 4 L hemodialysis today. No current change in therapy. White blood cell count remained stable. Off vasopressors. Arousable to voice. Versed has been discontinued. We'll attempt CPAP trials again today. 08/31: MAXIMUM TEMPERATURE 100.4. Currently 100.1. Currently resting in bed in no acute distress. Continues with scant drainage from bilateral JPs. We'll attempt CPAP trial again today. Positive stool from ostomy bag 09/01: Tmax 99.8. Currently 99.3. Placement of the new right IJ vas catheter today. Plan for IR to possibly drain right lower quadrant fluid collection. Arousable and moves all 4 extremity spontaneously. 09/02: Currently afebrile. Noted placement of iron drain with accordion drain. Growing Pseudomonas. Lasted only 2 hours on CPAP trials today. 09/03: Tolerated SBT for only 30 mins and required PS 20. Not ready to extubate. 09/04: Tachypnea related to anxiety? or metabolic acidosis. Will check VBG. Not tolerating SBT. Anemia. Transfuse during HD. 09/05: Remains very tachypneic on SBTs. Unable to extubate. 09/06: Leukocytosis and bandemia. Acts like ongoing sepsis. 09/07: No significant changes. Afebrile. Tolerating TFs as recommended by CRS. Will transition from TPN to enteral feeds now. 09/08: Bandemia persists. Tolerating full TFs. D/c'd TPN. Glucose control acceptable. 09/09: Tolerating longer CPAP/PS trials. 09/10: Stronger respiratory effort. Try to extubate today. 09/11: Stable hemodynamics, marginal respiratory function. 09/11 update 1800 hrs: Patient developed sudden hyperventilation to 55-60/min, hypertensive urgency to 220/120s, unresponsive state, started versed 10 mg/hr after 10 mg iv. Load with cerebyx, get head CT, EEG in a.m. 09/12: BP and pulse rate control improved with sedation. Etiology unclear. Suspected intracranial process but CT head normal. Possibly seizures. EEG pending this morning. WBC with bandemia persists. 09/13: CURRENT TEMPERATURE 99. Heart rate and blood pressure control. Noted T changes last night noted a potassium 8.2. Noted hemodialysis catheter placed by overnight line server in right femoral vein and hemodialysis currently undergoing. Plan for drainage of epigastric fluid collection by IR today. Subjective 09/14: Currently afebrile. Status post prior drainage of epigastric fluid area. Currently 60 ccwhite pus accordian drain. Status post bronchoscopy yesterday. Objective Vital Signs Date Time Temp Pulse Resp B/P Pulse Ox O2 Delivery O2 Flow Rate FiO2 09/14/16 06:00 97 09/14/16 04:04 100 40 09/14/16 04:00 98.6 22 162/91 Intake and Output 09/13/16 09/13/16 09/14/16 08:00 16:00 00:00 Intake Total 1299 ml 601 ml 353 ml Output Total 95 ml 3243 ml 215 ml Balance 1204 ml -2642 ml 138 ml Result Diagram: 09/14/16 0345 09/14/16 0339 Other Results Microbiology Date/Time Procedure Status Source Growth 09/13/16 17:20 Gram Stain Received Bronchial Washings Right Mid Lobe Pending 09/13/16 17:20 Bronchial Culture Received Bronchial Washings Right Mid Lobe Pending 09/13/16 17:20 Fungal Smear Received Bronchial Washings Right Mid Lobe Pending 09/13/16 17:20 Fungal Culture Received Bronchial Washings Right Mid Lobe Pending 09/13/16 17:20 Acid Fast Stain Received Bronchial Washings Right Mid Lobe Pending 09/13/16 17:20 Mycobacterial Culture Received Bronchial Washings Right Mid Lobe Pending Imaging Last Impressions Chest X-Ray 09/13/16 0000 Signed Impressions: Service Date/Time: Tuesday, September 13, 2016 17:34 - CONCLUSION: Worsening aeration throughout the right lung Claude Rosario MD Abscess Drainage CT 09/13/16 0000 Signed Impressions: Service Date/Time: Tuesday, September 13, 2016 14:30 - CONCLUSION: Uncomplicated CT guided drainage. Carlo Cortes MD Head CT 09/11/16 0000 Signed Impressions: Service Date/Time: Sunday, September 11, 2016 18:41 - CONCLUSION: Normal examination for a patient of this age. Dave Easton MD Abdomen/Pelvis CT 09/11/16 0000 Signed Impressions: Service Date/Time: Monday, September 12, 2016 04:12 - CONCLUSION: 1. Small bowel dilatation has resolved. 2. Postsurgical changes are identified with increase in size of epigastric fluid collection, but decreased fluid within the mesentery and right paracolic region. 3. There is no evidence for enteric contrast media extravasation. 4. Pulmonary consolidation and effusions. Romel Kohli MD Retroperitoneal Abscess Drainage 09/01/16 0600 Signed Impressions: Service Date/Time: Thursday, September 01, 2016 13:05 - CONCLUSION: Uncomplicated CT guided drainage of a right lower quadrant fluid collection. Approximately 75 cc of fecal-like brown material was aspirated. The air and fluid collection may communicate with the inferior aspect of the midline wound on the anterior abdominal wall. Claude Carrasco MD Abdomen X-Ray 08/24/16 0000 Signed Impressions: Service Date/Time: August 07:44 - CONCLUSION: Gaseous distention of multiple bowel loops possible ileus. Jony Miller MD Enema w/Water Soluble 08/23/16 0000 Signed Impressions: Service Date/Time: Tuesday, August 23, 2016 10:12 - CONCLUSION: Anastomosis appears patent without extravasation. Aditya Rocha MD FACR CT Angiography 08/21/16 0000 Signed Impressions: Service Date/Time: Sunday, August 21, 2016 14:05 - CONCLUSION: 1. There is no evidence for central pulmonary emboli. 2. Minimal subcutaneous air as well as free intraperitoneal air. Aditya Rocha MD FACR Objective Remarks GENERAL: 56-year-old male, critically ill, heavily sedated. SKIN: Warm. Dry. HEAD: Atraumatic. Normocephalic. ENT: Orotracheally intubated NECK: Trachea midline. Supple. CARDIOVASCULAR:, RR. S1, S2. No S4. No m/c/g/r. RESPIRATORY: Mechanical ventilation, scattered rhonchi, no wheezing. GASTROINTESTINAL: Abdomen non distended. Midline incision clean and intact. BS active. Ostomy pink with brown stool. 2 accordian drain, 2 SER[address] and vac in place. MUSCULOSKELETAL: Extremities with Tr+ bilateral upper and lower extremity edema , well perfused. NEUROLOGICAL:Pupils equal round and reactive 2 mm bilaterally. Grimaces with suctioning. Date of Insertion: Aug 31, 2016 Line: Central Venous Catheter Side: Right Location: Subclavian A/P Assessment and Plan NEURO/PSYCH: History of anxiety Acetaminophen for fever Haldol 1 mg every 4 hours when necessary RASS 1-2 Ativan 0.5 mg every one hour when necessary agitation Morphine sulfate 3 mill grams IV every 3 hours when necessary pain -Daily sedation vacation, follow neuro status. -Head CT 09/11 no acute intracranial findings -EEG 09/12 revealed mild to moderate encephalopathy. No epileptiform activity. Currently on Celebrex 100 mg IV 3 times a day. Recheck level in a.m. was 4.1 RESP: Acute hypoxemic respiratory failure COPD exacerbation Probable healthcare associated pneumonia -Continue ACV 22/600 0.75/8/50 Ventilator bundle -Albuterol nebs every 4 hours scheduled and when necessary duo nebs, Symbicort 2 puffs every 12 was discontinued while in ventilator. Continue Pulmicort 0.5/2 twice a day -Broad-spectrum antibiotics as below -Continue daily C Pap trials. Dr. Renteria/Pulmonary following Increase SBTs length CV: Hypotension secondary to septic shock resolved History of hypertension -Received multiple fluid boluses on 08/25. IV fluids discontinued subsequently in view of anuria necessitating hemodialysis. Off all vasopressors -Attempt negative fluid balance with hemodialysis. Currently on clonidine 0.1 3 times a day, Norvasc 5 mg daily. GI/ Nutrition: Anastomotic leak status post exploratory laparotomy, I&D, loop ileostomy 08/24/16 s/p Laparoscopic robotic extensive ANNA MARIE, robotic LAR and small bowel resection Laparoscopic robotic ANNA MARIE, robotic LAR and small bowel resection with anastomotic leak History of diverticulitis -Status post exploratory laparotomy, I&D, loop ileostomy 08/24/16 -Postoperative management per Dr. Moffett. Broad-spectrum antibiotics as below. Left SERGEI drain 5 cc. Right SERGEI 25 cc. positive ostomy output CT abdomen pelvis with oral contrast 08/29 reveal small bowel ileus. Serous fluid collection likely postoperative changes. - On Reglan to improve GI motility -Started on TPN 08/25 at 65 cc an hour with lipids daily Protonix for GI prophylaxis Accordion drain to right lower quadrant 09/01 by IR. -45 cc. Right lower quadrant SERGEI 10 cc. LLQ SERGEI 15 cc. Vac-Pac medial 25 cc. Accordion drain to epigastric -60 cc looking white pus Renal/: Acute kidney injury History BPH Status post bilateral ureteral stents placed by Dr. Fraser 08/18 -Monitor renal function closely. Mg catheter. -IV fluids discontinued in view of anuric renal failure and hyperkalemia necessitating hemodialysis. Nephrology consulted and following. -Attempt maintaining even to slightly negative fluid balance if blood pressure permits. New right IJ hemodialysis catheter placed 09/01 -> D/C 09/13. New right femoral hemodialysis catheter placed 09/13 ID: Anastomotic leak Sepsis Probable HCAP -IV vancomycin, Flagyl and Levaquin per Dr. Moffett. Levaquin discontinued . Zosyn started 09/02. Flagyl and micafungin per ID added. Pertinent culture 09/13 - bronchial - pending 09.13 - abdomen abscess - pending 09/01: Abdominal wound - Pseudomonas, enterococcus, Iram 08/31 - line culture Pseudomonas/coag negative staph 08/31 - blood cultures 2 -no growth 08/31 - sputum - pending 08/29 - wound - Pseudomonas, group D enterococcus, C. albicans and yeast 08/25 blood cultures - no growth 08/25 sputum - Serratia/Klebsiella/Pseudomonas 08/24 - wound - no growth HEME: Leukocytosis Normocytic anemia Thrombocytosis -Monitor CBC, CMP, coags ENDO: -Sliding-scale insulin for glycemic control. 0 units sliding scale past 24 hours. Levemir 20 units twice a day currently on hold as nothing by mouth for drain placement yesterday. Likely resume his tube feeds have been restarted FEN: Hyponatremia Hyperkalemia. Currently 5.7 Hyperphosphatemia Stat hemodialysis today. Recheck potassium post dialysis Continue PhosLo 667 mg 3 times a day for hyperphosphatemia. Hemodialysis 1K bath today PROPH: -Bilateral lower extremity SCDs. Heparin subcutaneous for DVT prophylaxis currently on hold due to procedures plan today.. Protonix for GI prophylaxis LINES: -Left subclavian central line placed in the OR 08/24 - 08/31. Right subclavian central line placed 08/31 - 09/11 - RIJ dialysis catheter 08/25 -08/31. New right IJ hemodialysis catheter 09/01 - - Right femoral hemodialysis catheter 09/13 Critical Care: The total critical care time was 35 minutes. Time to perform other separately billable procedures was not included in the critical care time. We'll order tracheostomy for tomorrow Connor Lebron MD Sep 14, 2016 08:12
[2016-09-14] MEDS: SODIUM CHLOR 0.9% 1000 ML INJ 1,000 ML IV PRN (08:16)
[2016-09-14] MEDS: HEPARIN SODIUM - IV 10,000 UNITS/10 ML VIAL PRN (08:16)
[2016-09-14] MEDS: GENTAMICIN SULFATE (DIALYSIS USE ONLY) 20 MG/2 ML VIAL IV PRN (08:16)
--- NOTE | 2016-09-14 08:26 | HHI.NPPN ---
Subjective General Problems: Edema Renal Failure: Acute Interval History On the ventilator. He is oligoanuric. Serum potassium is 5.7 today. Dialysis again today. Review of Systems General General Remarks unable to evaluate Objective Data Data 09/13/16 09/14/16 19:00 07:00 Intake Total 651 ml 610 ml Output Total 3243 ml 401 ml Balance -2592 ml 209 ml IV Total 491 ml 510 ml Tube Feeding 0 ml Other 160 ml 100 ml Output Urine Total 13 ml 21 ml Stool Total 125 ml 130 ml Gastric Drainage Total 100 ml 100 ml Drainage Total 5 ml 150 ml Hemodialysis 3000 ml Bladder Scan Volume Amount 13 ml 21 ml Vital Signs Date Time Temp Pulse Resp B/P Pulse Ox O2 Delivery O2 Flow Rate FiO2 09/14/16 06:00 97 09/14/16 04:04 100 40 09/14/16 04:00 40 09/14/16 04:00 98.6 97 22 162/91 97 09/14/16 04:00 97 09/14/16 02:00 104 09/14/16 01:03 96 40 09/14/16 00:00 40 09/14/16 00:00 98.3 93 22 132/79 100 09/14/16 00:00 94 09/13/16 22:13 100 40 09/13/16 22:00 97 09/13/16 20:00 91 09/13/16 20:00 98.6 91 22 123/70 100 09/13/16 20:00 40 09/13/16 19:37 100 50 09/13/16 18:00 93 09/13/16 17:51 100 100 09/13/16 16:24 95 40 09/13/16 16:00 97.9 97 22 147/67 100 09/13/16 16:00 97 09/13/16 16:00 40 09/13/16 14:00 107 09/13/16 13:50 100 100 09/13/16 12:00 98 09/13/16 12:00 98.2 98 23 146/61 94 09/13/16 12:00 40 09/13/16 11:15 95 40 09/13/16 10:00 102 -: 09/14/16 0345 09/14/16 0339 Microbiology 09/13/16 Gram Stain, Received Pending 09/13/16 Wound Culture, Received Pending 09/13/16 Gram Stain, Received Pending 09/13/16 Bronchial Culture, Received Pending 09/13/16 Acid Fast Stain, Received Pending 09/13/16 Mycobacterial Culture, Received Pending 09/13/16 Fungal Smear, Received Pending 09/13/16 Fungal Culture, Received Pending Tubes & Lines: Vas-Cath Tubes & Lines Comment TLC, NG tube, SERGEI drain RLQ Drip Comment fentanyl, propofol , versed Physical Exam General Appearance: No Acute Distress Throat Throat Exam: Oral Mucosa Carlyle & Moist Pulmonary Resp Exam: Breath Sounds Equal, No Distress, Crackles, Sputum, Diminished Breath Sounds Cardiology CV Exam: Regular, Normal Sinus Rhythm Gastrointestinal/Abdomen GI Exam: Distended Musculoskeletal MS Exam: Joints Intact, Normal Tone Integumentary Skin Exam: Warm, Dry Extremeties Extremities Exam: No Edema, Pedal Pulses Palpable Neurologic Neuro Exam: Obtunded, Unresponsive, Sedated VTE Prophylaxis Device: SCDs Assessment/Plan Discussed Condition With: Relative Assessment Summary: VIRIDIANA/Acute Renal Failure, Acute Tubular Necrosis, Fluid/ Volume Overload Problem List: (1) Acute renal failure Plan: He has developed ATN due to sepsis. He will be dialyzed daily, with possible day off on Sundays. Developed life threatening hyperkalemia with EKG changes on 09/13/16, was emergently dialyzed. Avoid nephrotoxic agents. Monitor urine output. Avoid LR. On Calcium acetate for hyperphosphatemia. (2) Diverticulitis Plan: s/p colon resection with complications surgery following. multiple positive cultures of wound, catheter tip, and sputum ID following, managing antibiotics. He is on Micafungin and Zosyn. s/p bronchoscopy on 09/13. Problem Qualifiers (1) Acute renal failure: Qualified Code: N17.0 - Acute renal failure with tubular necrosis Tito Kuo MD Sep 14, 2016 08:26
[2016-09-14] MEDS: SODIUM CHLORIDE 0.9% FLUSH 5 ML FLUSH IVF SCH ×4 (08:57→17:06)
[2016-09-14] MEDS: CHLORHEXIDINE 0.12% (ORAL KIT) 15 ML CUP MT SCH ×2 (08:57→20:31)
[2016-09-14] MEDS: MICAFUNGIN INJ 100 MG in SODIUM CHLORIDE 0.9% INJ 100 ML IV SCH (09:13)
[2016-09-14] MEDS: HEPARIN SODIUM - SQ 10,000 UNITS/ML VIAL SQ SCH ×2 (09:13→20:31)
[2016-09-14] MEDS: MUPIROCIN 2% OINT 1 APPLIC/GM SYR EACH NARE SCH ×2 (09:13→20:31)
[2016-09-14] MEDS: CALCIUM ACETATE 667 MG CAP PO SCH ×3 (09:13→17:06)
[2016-09-14] MEDS: PANTOPRAZOLE SODIUM 40 MG VIAL IVP SCH (09:13)
[2016-09-14] MEDS: ALBUMIN HUMAN 25% 25 GM/100 ML BAGP IV PRN (09:46)
[2016-09-14] MEDS: amLODIPine BESYLATE 5 MG TAB PO SCH (11:35)
--- NOTE | 2016-09-14 14:37 | HHI.IDPN ---
Note Infectious Disease Note Discussed with RN. Patient is on the vent. No distress. Had new drain placed into abdomen yesterday - 09/13/16. Sedated. Afebrile. WBC lower. Bronch culture from 09/13 has gram negative denis. PAST MEDICAL HISTORY 1. Diverticulitis. 2. COPD. 3. Hypertension. 4. Anxiety disorder. 5. BPH. 6. History of tonsillectomy. ALLERGIES No known drug allergies. ANTIBIOTICS 1. Micafungin. 2. Zosyn OBJECTIVE: Vital Signs Date Time Temp Pulse Resp B/P Pulse Ox O2 Delivery O2 Flow Rate FiO2 09/14/16 12:00 40 09/14/16 12:00 109 09/14/16 12:00 99.3 109 22 67/ 99 09/14/16 11:24 97 40 09/14/16 10:00 109 09/14/16 08:27 99 40 09/14/16 08:00 40 09/14/16 08:00 92 09/14/16 08:00 99.0 96 22 148/81 98 Arterial Line 09/14/16 06:00 97 09/14/16 04:04 100 40 09/14/16 04:00 40 09/14/16 04:00 98.6 97 22 162/91 97 09/14/16 04:00 97 09/14/16 02:00 104 09/14/16 01:03 96 40 09/14/16 00:00 40 09/14/16 00:00 98.3 93 22 132/79 100 09/14/16 00:00 94 09/13/16 22:13 100 40 09/13/16 22:00 97 09/13/16 20:00 91 09/13/16 20:00 98.6 91 22 123/70 100 09/13/16 20:00 40 09/13/16 19:37 100 50 09/13/16 18:00 93 09/13/16 17:51 100 100 09/13/16 16:24 95 40 09/13/16 16:00 97.9 97 22 147/67 100 09/13/16 16:00 97 09/13/16 16:00 40 09/13/16 09/13/16 09/14/16 15:00 23:00 07:00 Intake Total 601 ml 353 ml 307 ml Output Total 3243 ml 215 ml 186 ml Balance -2642 ml 138 ml 121 ml IV Total 491 ml 253 ml 257 ml Tube Feeding 0 ml Other 110 ml 100 ml 50 ml Output Urine Total 13 ml 0 ml 21 ml Stool Total 125 ml 30 ml 100 ml Gastric Drainage Total 100 ml 100 ml 0 ml Drainage Total 5 ml 85 ml 65 ml Hemodialysis 3000 ml Bladder Scan Volume Amount 13 ml 21 ml Laboratory Tests Test 09/13/16 09/14/16 02:39 03:45 White Blood Count 29.7 TH/MM3 18.0 TH/MM3 Red Blood Count 3.06 MIL/MM3 2.85 MIL/MM3 Hemoglobin 8.9 GM/DL 8.0 GM/DL Hematocrit 26.4 % 24.0 % Mean Corpuscular Volume 86.3 FL 84.4 FL Mean Corpuscular Hemoglobin 29.1 PG 28.1 PG Mean Corpuscular Hemoglobin 33.7 % 33.3 % Concent Red Cell Distribution Width 15.5 % 15.4 % Platelet Count 463 TH/MM3 468 TH/MM3 Mean Platelet Volume 8.7 FL 8.2 FL Neutrophils (%) (Auto) 82.4 % 79.3 % Lymphocytes (%) (Auto) 6.5 % 6.0 % Monocytes (%) (Auto) 9.4 % 10.8 % Eosinophils (%) (Auto) 0.7 % 2.9 % Basophils (%) (Auto) 1.0 % 1.0 % Neutrophils # (Auto) 24.4 TH/MM3 14.2 TH/MM3 Lymphocytes # (Auto) 1.9 TH/MM3 1.1 TH/MM3 Monocytes # (Auto) 2.8 TH/MM3 1.9 TH/MM3 Eosinophils # (Auto) 0.2 TH/MM3 0.5 TH/MM3 Basophils # (Auto) 0.3 TH/MM3 0.2 TH/MM3 CBC Comment AUTO DIFF AUTO DIFF Differential Total Cells 100 100 Counted Neutrophils % (Manual) 59 % 80 % Band Neutrophils % 14 % 3 % Lymphocytes % 6 % 5 % Monocytes % 12 % 4 % Eosinophils % 2 % 4 % Basophils % 1 % 1 % Neutrophils # (Manual) 23.5 TH/MM3 15.5 TH/MM3 Metamyelocytes 3 % 2 % Myelocytes 2 % 1 % Promyelocytes 1 % Differential Comment FINAL DIFF FINAL DIFF MANUAL MANUAL Platelet Estimate HIGH HIGH Platelet Morphology Comment NORMAL NORMAL Stomatocytes 2+ Laboratory Tests Test 09/13/16 09/13/16 09/13/16 09/14/16 03:40 04:25 12:20 03:39 Lactic Acid Level 0.5 mmol/L Sodium Level 131 MEQ/L 135 MEQ/L 137 MEQ/L Potassium Level 8.2 MEQ/L 5.3 MEQ/L 5.7 MEQ/L Chloride Level 92 MEQ/L 93 MEQ/L 95 MEQ/L Carbon Dioxide Level 21.2 MEQ/L 27.2 MEQ/L 25.1 MEQ/L Anion Gap 18 MEQ/L 15 MEQ/L 17 MEQ/L Blood Urea Nitrogen 86 MG/DL 56 MG/DL 66 MG/DL Creatinine 7.10 MG/DL 4.86 MG/DL 5.74 MG/DL Estimat Glomerular Filtration 8 ML/MIN 12 ML/MIN 10 ML/MIN Rate Random Glucose 90 MG/DL 74 MG/DL 65 MG/DL Calcium Level 9.3 MG/DL 8.3 MG/DL 9.2 MG/DL Phosphorus Level 11.9 MG/DL 8.8 MG/DL 8.8 MG/DL Troponin I 0.02 NG/ML 0.03 NG/ML Albumin 1.9 GM/DL 1.7 GM/DL 1.8 GM/DL Magnesium Level 2.2 MG/DL Total Bilirubin 2.6 MG/DL Aspartate Amino Transf 38 U/L (AST/SGOT) Alanine Aminotransferase 11 U/L (ALT/SGPT) Alkaline Phosphatase 303 U/L Total Protein 7.7 GM/DL Microbiology Date/Time Procedure Status Source Growth 09/13/16 15:03 Gram Stain - Final Resulted Abscess Abdomen 09/13/16 15:03 Wound Culture Resulted Abscess Abdomen Pending 09/13/16 17:20 Gram Stain - Final Resulted Bronchial Washings Right Mid Lobe 09/13/16 17:20 Bronchial Culture - Preliminary Resulted Gram Negative Denis 09/13/16 17:20 Acid Fast Stain Received Bronchial Washings Right Mid Lobe Pending 09/13/16 17:20 Mycobacterial Culture Received Bronchial Washings Right Mid Lobe Pending 09/13/16 17:20 Fungal Smear - Final Resulted Bronchial Washings Right Mid Lobe NO FUNGAL ELEMENTS SEEN. 09/13/16 17:20 Fungal Culture Resulted Bronchial Washings Right Mid Lobe Pending Microbiology Date/Time Procedure Status Source Growth 08/31/16 15:40 Wound Culture - Final Complete Catheter Tip Central Venous Line Pseudomonas Species Staph Sp Coagulase Negative 08/31/16 15:40 Fungal Culture - Final Complete Catheter Tip Central Venous Line 09/01/16 13:45 Gram Stain - Final Complete Abscess Abdomen 09/01/16 13:45 Wound Culture - Final Complete Pseudomonas Aeruginosa Enterococcus Faecalis Iram Glabrata Imaging: Chest X-Ray 09/13/16 0000 Signed Impressions: Service Date/Time: Tuesday, September 13, 2016 17:34 - CONCLUSION: Worsening aeration throughout the right lung Claude Rosario MD Abscess Drainage CT 09/13/16 0000 Signed Impressions: Service Date/Time: Tuesday, September 13, 2016 14:30 - CONCLUSION: Uncomplicated CT guided drainage. Carlo Cortes MD Head CT 09/11/16 0000 Signed Impressions: Service Date/Time: Sunday, September 11, 2016 18:41 - CONCLUSION: Normal examination for a patient of this age. Dave Easton MD Abdomen/Pelvis CT 09/11/16 0000 Signed Impressions: Service Date/Time: Monday, September 12, 2016 04:12 - CONCLUSION: 1. Small bowel dilatation has resolved. 2. Postsurgical changes are identified with increase in size of epigastric fluid collection, but decreased fluid within the mesentery and right paracolic region. 3. There is no evidence for enteric contrast media extravasation. 4. Pulmonary consolidation and effusions. Romel Kohli MD Chest X-Ray 09/10/16 0000 Signed Impressions: Service Date/Time: Saturday, September 10, 2016 04:09 - CONCLUSION: 1. Slight improvement of right basilar airspace disease since September 03. Support apparatus unchanged. Miki Banerjee MD Chest X-Ray 09/03/16 0600 Signed Impressions: Service Date/Time: Saturday, September 03, 2016 04:03 - CONCLUSION: Stable left lower lobe consolidation and right lower lung infiltrates. Evelio Boyd MD Retroperitoneal Abscess Drainage 09/01/16 0600 Signed Impressions: Service Date/Time: Thursday, September 01, 2016 13:05 - CONCLUSION: Uncomplicated CT guided drainage of a right lower quadrant fluid collection. Approximately 75 cc of fecal-like brown material was aspirated. The air and fluid collection may communicate with the inferior aspect of the midline wound on the anterior abdominal wall. Claude Carrasco MD Abdomen/Pelvis CT 08/29/16 0000 Signed Impressions: Service Date/Time: Monday, August 29, 2016 17:12 - CONCLUSION: Post surgical changes following partial colon resection. Persistent pockets of fluid. Largest is located in the pelvis and contains an air-fluid level. Abscess formation cannot be excluded. Small bowel ileus Bibasilar airspace disease and pleural effusions Aakash Iqbal MD Abdomen X-Ray 08/24/16 0000 Signed Impressions: Service Date/Time: August 07:44 - CONCLUSION: Gaseous distention of multiple bowel loops possible ileus. Jony Miller MD Enema w/Water Soluble 08/23/16 0000 Signed Impressions: Service Date/Time: Tuesday, August 23, 2016 10:12 - CONCLUSION: Anastomosis appears patent without extravasation. Aditya Rocha MD FACR CT Angiography 08/21/16 0000 Signed Impressions: Service Date/Time: Sunday, August 21, 2016 14:05 - CONCLUSION: 1. There is no evidence for central pulmonary emboli. 2. Minimal subcutaneous air as well as free intraperitoneal air. Aditya Rocha MD FACR PHYSICAL EXAMINATION GENERAL: Sedated on the ventilator. HEENT: The oropharynx is intubated. No icterus. NECK: No adenopathy or swelling. LUNGS: Bibasilar rhonchi persist. HEART: Regular rate and rhythm. No audible murmurs, rubs or gallops. ABDOMEN: Positive bowel sounds. Wound vac in place has henry colored drainage. Decreased serous drainage from the SERGEI drains. Accordion drain has light chocolate colored drainage. EXTREMITIES: No clubbing or cyanosis. 1+ edema. Distal pulses 2+. SKIN: Warm and moist. No rash. NEUROLOGIC: Unable to fully assess. IMPRESSION 1. Sepsis. Pseudomonas on CVL culture of removed line. 2. Peritonitis. Post abdominal surgery/Bowel resection - enterococcus, pseudomonas and yeast. 3. Pneumonia due to gram-negative bacteria with sputum culture showing Serratia, Klebsiella and Pseudomonas. New culture has pseudomonas. Bronch. culture now has gram neg denis. 4. Leukocytosis secondary to infection. WBC still elevated. likely from abdominbal abscess. 5. Acute renal failure. 6. Acute respiratory failure. Remains on vent. RECOMMENDATIONS 1. Continue micafungin. 2. Continue PIP/Tazobactam. 3. Monitor bronch culture. 4. Monitor abdominal fluid culture. 5. Monitor white blood cell count and temp. Tim Apodaca MD Sep 14, 2016 14:37
[2016-09-14] MEDS ORDERED: MISCELLANEOUS PHARMACY INFORMATION XX PRN ×2 (14:45)
[2016-09-14] MEDS ORDERED: ASP: Other exception documentation: ( ) XX PRN (14:45)
[2016-09-14] MEDS: hydrALAZINE HCL 20 MG/ML VIAL IV PUSH PRN (14:58)
[2016-09-14] MEDS: MEROPENEM INJ 500 MG in SODIUM CHLORIDE 0.9% INJ 100 ML IV SCH (16:00)
--- NOTE | 2016-09-14 16:30 | PD.CONS ---
cc: Brayden Howard MD HPI Service General Surgery Consult Requested By Dr. Valdez Reason for Consult Tracheostomy tube placement for ventilator dependent respiratory failure Primary Care Physician Corby Alves MD History of Present Illness This is a 56-year-old male with a past medical history significant for COPD. He on August 18, 2016 he underwent a laparoscopic robotic extensive lysis of adhesion, lower anterior resection and a small bowel resection for diverticulitis. Postoperatively the patient was extubated but developed respiratory distress and was placed on BiPAP. On August 24 the patient was taken back to the operating room by Dr. Moffett for an anastomotic leak. He had an exploratory laparotomy, I&D and loop ileostomy. Postoperatively the patient was hypoxic and required high ventilator settings. The patient has been unable to wean from the ventilator and is need of tracheostomy tube placement. A General Surgery consultation has been requested. 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 Active Ordered Medications Current Medications Medications (Trade) Dose Ordered Sig/Jayme Route Start Time Stop Time Status Last Admin (NS Flush) 2 ml UNSCH PRN IVF 08/18/16 14:30 (NS Flush) 2 ml BID IVF 08/18/16 16:00 09/14/16 09:15 ([place] 5-325 Mg) 1 tab Q6H PRN PO 08/18/16 14:30 Hold 08/20/16 14:59 ([place] 5-325 Mg) 2 tab Q6H PRN PO 08/18/16 14:30 Hold 08/22/16 03:03 (Tylenol) 650 mg Q4H PRN PO 08/18/16 14:30 (Protonix Inj) 40 mg DAILY IVP 08/19/16 09:00 09/14/16 09:13 (Zofran Inj) 4 mg Q6H PRN IV 08/18/16 14:30 08/19/16 23:31 Benzocaine/ Menthol 1 lozenge 1 lozenge UNSCH PRN SUCK-ON 08/18/16 14:30 (KCl 40 Meq Premix Inj) 100 ml @ 25 mls/hr UNSCH PRN IV 08/18/16 14:30 (Narcan Inj) 0.4 mg UNSCH PRN IV 08/18/16 14:30 (Benadryl Inj) 25 mg Q6H PRN IV 08/18/16 14:30 08/21/16 20:03 (Ativan Inj) 0.5 mg Q3H PRN IV PUSH 08/22/16 14:00 09/13/16 03:22 (SoluMEDROL INJ) 40 mg Q8HR IV PUSH 08/22/16 22:00 Hold 08/24/16 12:54 Morphine Sulfate 3 mg 3 mg Q3H PRN IV 08/22/16 20:15 08/27/16 03:14 (fentaNYL DRIP) 250 ml @ 0 mls/hr TITRATE IV 08/24/16 23:45 09/14/16 05:16 Haloperidol Lactate 1 mg 1 mg Q4H PRN IV 08/24/16 23:45 09/01/16 14:36 (Diprivan 1000 Mg/100ml Inj) 100 ml @ 0 mls/hr TITRATE IV 08/24/16 23:45 09/13/16 00:47 (Symbicort 160-4.5 Inh) 2 puff Q12HR INH 08/25/16 01:30 Hold Chlorhexidine Gluconate 15 ml 15 ml BID@08,20 MT 08/25/16 08:00 09/14/16 08:57 (NS 1000 ml Inj) 1,000 ml @ 0 mls/hr BOLUS IV 08/25/16 07:45 09/05/16 13:00 (Brethine Inj) 1 mg UNSCH PRN SQ 08/25/16 17:45 (D50w (Vial) Inj) 25 ml UNSCH PRN IV 08/26/16 07:15 09/14/16 05:01 Glucagon 1 mg 1 mg UNSCH PRN IM/SQ 08/26/16 07:15 (Mycamine Inj/NS Inj) 100 ml @ 100 mls/hr Q24H IV 08/27/16 08:00 09/14/16 09:13 (Bactroban Nasal 2% Oint) Taper BID EACH NARE 08/30/16 21:00 08/26/17 20:59 09/14/16 09:13 (NS Flush) UNSCH PRN IVF 09/01/16 06:30 (Heparin Inj) UNSCH PRN IVF 09/01/16 06:30 09/05/16 13:01 (NovoLOG SUPPLEMENTAL SCALE) 1 Q4HR SQ 09/01/16 08:00 09/06/16 16:47 (Heparin Inj) 5,000 units Q12HR SQ 09/02/16 09:00 09/14/16 09:13 (Trandate Inj) 20 mg Q2H PRN IV PUSH 09/03/16 14:00 09/14/16 06:46 (Apresoline Inj) 20 mg Q4H PRN IV PUSH 09/03/16 14:00 09/14/16 14:58 (Catapres) 0.1 mg Q8HR PO 09/03/16 14:00 09/14/16 14:56 Amlodipine Besylate 5 mg 5 mg DAILY PO 09/03/16 14:00 09/14/16 11:35 Sodium Chloride 1,000 ml @ 0 mls/hr Q0M PRN IV 09/06/16 16:06 09/14/16 08:16 Sodium Chloride 1,000 ml @ 200 mls/hr Q5H PRN IV 09/06/16 16:06 (NS 1000 ml Inj) 1,000 ml @ 0 mls/hr Q0M PRN IV 09/06/16 16:06 (Mannitol Inj) 12.5 gm UNSCH PRN IV 09/06/16 16:15 (Albumin 25% Inj) 25 gm UNSCH PRN IV 09/06/16 16:15 09/14/16 09:46 (NS Flush) 5 ml UNSCH PRN IVF 09/06/16 16:15 (Heparin Inj) UNSCH PRN .XX 09/06/16 16:15 09/14/16 08:16 (Gentamicin (Dialysis) Inj) 20 mg UNSCH PRN IV 09/06/16 16:15 09/14/16 08:16 (Zofran Inj) 4 mg UNSCH PRN IV 09/06/16 16:15 (Tylenol) 650 mg UNSCH PRN PO 09/06/16 16:15 (Benadryl) 25 mg UNSCH PRN PO 09/06/16 16:15 (Nitrostat Sl) 0.4 mg UNSCH PRN SL 09/06/16 16:15 (Catapres) 0.1 mg UNSCH PRN PO 09/06/16 16:15 (Gelfoam 12 Mm/7 Mm Top) 1 foam UNSCH PRN TOP 09/06/16 16:15 (Phoslo) 667 mg TID PO 09/08/16 13:00 09/14/16 12:31 Insulin Detemir 20 units 20 units Q12HR SQ 09/08/16 21:00 Hold 09/10/16 20:20 Piperacillin Sod/ Tazobactam Sod 50 ml @ 100 mls/hr Q6H IV 09/09/16 12:00 09/14/16 12:31 (Versed Inj) 100 ml @ 0 mls/hr TITRATE IV 09/11/16 18:00 09/14/16 14:58 (Cerebyx Inj) 100 mgpe Q8HR IV 09/12/16 06:00 09/14/16 13:24 Sodium Chloride 10 ml 10 ml Q8H IV FLUSH 09/13/16 17:30 09/14/16 09:30 (Merrem Inj/NS Inj) 100 ml @ 200 mls/hr Q24H IV 09/14/16 16:00 09/14/16 16:00 Family History Noncontributory Social History Per chart has a history of tobaccoism Physical Exam Vital Signs Vital Signs Date Time Temp Pulse Resp B/P Pulse Ox O2 Delivery O2 Flow Rate FiO2 09/14/16 16:00 99.0 125 26 166/103 100 09/14/16 16:00 125 09/14/16 16:00 40 09/14/16 15:41 99 40 09/14/16 14:00 116 09/14/16 12:00 40 09/14/16 12:00 109 09/14/16 12:00 99.3 109 22 67/ 99 09/14/16 11:24 97 40 09/14/16 10:00 109 09/14/16 08:27 99 40 09/14/16 08:00 40 09/14/16 08:00 92 09/14/16 08:00 99.0 96 22 148/81 98 Arterial Line 09/14/16 06:00 97 09/14/16 04:04 100 40 09/14/16 04:00 40 09/14/16 04:00 98.6 97 22 162/91 97 09/14/16 04:00 97 09/14/16 02:00 104 09/14/16 01:03 96 40 09/14/16 00:00 40 09/14/16 00:00 98.3 93 22 132/79 100 09/14/16 00:00 94 09/13/16 22:13 100 40 09/13/16 22:00 97 09/13/16 20:00 91 09/13/16 20:00 98.6 91 22 123/70 100 09/13/16 20:00 40 09/13/16 19:37 100 50 09/13/16 18:00 93 09/13/16 17:51 100 100 Physical Exam GENERAL: Obese male resting in bed; intubated/sedated SKIN: Warm and dry. HEAD: Atraumatic. Normocephalic. EYES: Pupils equal and round. No scleral icterus. No injection or drainage. ENT: No nasal bleeding or discharge. Mucous membranes pink and moist. NECK: Trachea midline. CARDIOVASCULAR: Regular rate and rhythm. RESPIRATORY: No accessory muscle use. Clear to auscultation. Breath sounds equal bilaterally. GASTROINTESTINAL: Large midline incision; ileostomy with pink stoma in place with stool in appliance. SERGEI in place; Wound vac in place with good seal. MUSCULOSKELETAL: Extremities without clubbing, cyanosis, or edema. No obvious deformities. Generalized edema. NEUROLOGICAL: Sedated PSYCHIATRIC: Appropriate mood and affect; insight and judgment normal. Laboratory Laboratory Tests Test 09/13/16 09/14/16 09/14/16 17:20 03:39 03:45 Bronchoalveolar Lavage WBC 9150 Bronchoalveolar Lavage RBC 200 Bronchoalveolar Lavage 93 Neutrophils Bronchoalveolar Lavage 2 Lymphocytes Bronchoalveolar Lavage 2 Eosinophils Bronchoalveolar Lavage 3 Histiocytes Lavage Fluid Total Volume 9.0 Lavage Fluid Total WBC Count 82.3 Sodium Level 137 Potassium Level 5.7 Chloride Level 95 Carbon Dioxide Level 25.1 Anion Gap 17 Blood Urea Nitrogen 66 Creatinine 5.74 Estimat Glomerular Filtration 10 Rate Random Glucose 65 Calcium Level 9.2 Phosphorus Level 8.8 Magnesium Level 2.2 Total Bilirubin 2.6 Aspartate Amino Transf 38 (AST/SGOT) Alanine Aminotransferase 11 (ALT/SGPT) Alkaline Phosphatase 303 Total Protein 7.7 Albumin 1.8 Phenytoin (Dilantin) Level 4.1 White Blood Count 18.0 Red Blood Count 2.85 Hemoglobin 8.0 Hematocrit 24.0 Mean Corpuscular Volume 84.4 Mean Corpuscular Hemoglobin 28.1 Mean Corpuscular Hemoglobin 33.3 Concent Red Cell Distribution Width 15.4 Platelet Count 468 Mean Platelet Volume 8.2 Neutrophils (%) (Auto) 79.3 Lymphocytes (%) (Auto) 6.0 Monocytes (%) (Auto) 10.8 Eosinophils (%) (Auto) 2.9 Basophils (%) (Auto) 1.0 Neutrophils # (Auto) 14.2 Lymphocytes # (Auto) 1.1 Monocytes # (Auto) 1.9 Eosinophils # (Auto) 0.5 Basophils # (Auto) 0.2 CBC Comment AUTO DIFF Differential Total Cells 100 Counted Neutrophils % (Manual) 80 Band Neutrophils % 3 Lymphocytes % 5 Monocytes % 4 Eosinophils % 4 Basophils % 1 Neutrophils # (Manual) 15.5 Metamyelocytes 2 Myelocytes 1 Differential Comment FINAL DIFF MANUAL Platelet Estimate HIGH Platelet Morphology Comment NORMAL Stomatocytes 2+ Date/Time Procedure Status Source Growth 09/13/16 17:20 Gram Stain - Final Resulted Bronchial Washings Right Mid Lobe 09/13/16 17:20 Bronchial Culture - Preliminary Resulted Gram Negative Denis 09/13/16 17:20 Fungal Smear - Final Resulted Bronchial Washings Right Mid Lobe NO FUNGAL ELEMENTS SEEN. 09/13/16 17:20 Fungal Culture Resulted Bronchial Washings Right Mid Lobe Pending 09/13/16 17:20 Acid Fast Stain Received Bronchial Washings Right Mid Lobe Pending 09/13/16 17:20 Mycobacterial Culture Received Bronchial Washings Right Mid Lobe Pending Result Diagram: 10/05/16 0309 10/05/16 1037 Assessment and Plan Assessment and Plan 56 -year-old male status post bowel surgery by colorectal surgery Dr. Moffett; in need of tracheostomy tube placement for ventilator dependent respiratory failure -Plan to place trach on Sunday if family agreeable -Obtain consents -Hold anticoagulation Sunday evening -Hold tube feedings in the evening -Discussed with Dr. Valdez Attending Statement patient seen at bedside respiratory failure need for tracheostomy will plan for surgical intervention Attestation The exam, history, and the medical decision-making described in the above note were completed with the assistance of the mid-level provider. I reviewed and agree with the findings presented. I attest that I had a [id number] encounter with the patient on the same day, and personally performed and documented my assessment and findings in the medical record. Ashly Smiley Sep 14, 2016 16:30 Brayden Howard MD Oct 07, 2016 14:06
--- NOTE | 2016-09-14 18:54 | HHI.PR ---
Subjective Remarks YOAA male with robotic surgery,COPD exac Underwent exp lap,I&d and loop iliostomy placement Remains on vent On Fentanyl and Versed Started meropenem Family wants to wait longer for trach Objective Vital Signs Vital Signs Date Time Temp Pulse Resp B/P Pulse Ox O2 Delivery O2 Flow Rate FiO2 09/14/16 18:00 119 09/14/16 16:00 99.0 125 26 166/103 100 09/14/16 16:00 125 09/14/16 16:00 40 09/14/16 15:41 99 40 09/14/16 14:00 116 09/14/16 12:00 40 09/14/16 12:00 109 09/14/16 12:00 99.3 109 22 67/ 99 09/14/16 11:24 97 40 09/14/16 10:00 109 09/14/16 08:27 99 40 09/14/16 08:00 40 09/14/16 08:00 92 09/14/16 08:00 99.0 96 22 148/81 98 Arterial Line 09/14/16 06:00 97 09/14/16 04:04 100 40 09/14/16 04:00 40 09/14/16 04:00 98.6 97 22 162/91 97 09/14/16 04:00 97 09/14/16 02:00 104 09/14/16 01:03 96 40 09/14/16 00:00 40 09/14/16 00:00 98.3 93 22 132/79 100 09/14/16 00:00 94 09/13/16 22:13 100 40 09/13/16 22:00 97 09/13/16 20:00 91 09/13/16 20:00 98.6 91 22 123/70 100 09/13/16 20:00 40 09/13/16 19:37 100 50 I/O 09/13/16 09/13/16 09/13/16 09/14/16 09/14/16 09/14/16 07:00 15:00 23:00 07:00 15:00 23:00 Intake Total 1299 ml 601 ml 353 ml 307 ml 646 ml Output Total 95 ml 3243 ml 215 ml 186 ml 3693 ml Balance 1204 ml -2642 ml 138 ml 121 ml -3047 ml IV Total 1299 ml 491 ml 253 ml 257 ml 473 ml Tube Feeding 0 ml 0 ml 113 ml Other 110 ml 100 ml 50 ml 60 ml Output Urine Total 0 ml 13 ml 0 ml 21 ml Stool Total 15 ml 125 ml 30 ml 100 ml 150 ml Gastric Drainage Total 50 ml 100 ml 100 ml 0 ml Drainage Total 30 ml 5 ml 85 ml 65 ml 43 ml Hemodialysis 3000 ml 3500 ml Bladder Scan Volume Amount 13 ml 21 ml # Voids 0 Result Diagram: 09/14/16 0345 09/14/16 0339 Objective Remarks GENERAL: WBWN obese male, on Vent , sedated SKIN: Warm and dry. HEAD: Normocephalic. EYES: No scleral icterus. No injection or drainage. NECK: Supple, trachea midline. No JVD or lymphadenopathy. CARDIOVASCULAR: Regular rate and rhythm without murmurs, gallops, or rubs. RESPIRATORY: Breath sounds equal bilaterally. No accessory muscle use. exp rhonchi GASTROINTESTINAL: Abdomen soft, non-tender, Abd distended MUSCULOSKELETAL: No cyanosis, or edema. BACK: Nontender without obvious deformity. No CVA tenderness. A/P Assessment and Plan Resp Failure, on vent COPD exac S/p robotic surgery Anxiety S/p Exp lap PLAN: Cont vent support, aerosol nebs Nebuliser rx qid and prn Abx per ID Sedation with Versed and Fentanyl Trach when Family agrees Robbie Renteria MD Sep 14, 2016 18:54
--- NOTE | 2016-09-14 19:22 | HHI.PR ---
Subjective Remarks POD#27 s/p robotic LAR/SBR/ANNA MARIE, POD#21 s/p ex lap, washout, diverting loop ileostomy Stable, still overbreathing Vent Objective Vital Signs Date Time Temp Pulse Resp B/P Pulse Ox O2 Delivery O2 Flow Rate FiO2 09/14/16 18:00 119 09/14/16 16:00 99.0 125 26 166/103 100 09/14/16 16:00 125 09/14/16 16:00 40 09/14/16 15:41 99 40 09/14/16 14:00 116 09/14/16 12:00 40 09/14/16 12:00 109 09/14/16 12:00 99.3 109 22 67/ 99 09/14/16 11:24 97 40 09/14/16 10:00 109 09/14/16 08:27 99 40 09/14/16 08:00 40 09/14/16 08:00 92 09/14/16 08:00 99.0 96 22 148/81 98 Arterial Line 09/14/16 06:00 97 09/14/16 04:04 100 40 09/14/16 04:00 40 09/14/16 04:00 98.6 97 22 162/91 97 09/14/16 04:00 97 09/14/16 02:00 104 09/14/16 01:03 96 40 09/14/16 00:00 40 09/14/16 00:00 98.3 93 22 132/79 100 09/14/16 00:00 94 09/13/16 22:13 100 40 09/13/16 22:00 97 09/13/16 20:00 91 09/13/16 20:00 98.6 91 22 123/70 100 09/13/16 20:00 40 09/13/16 19:37 100 50 I/O 09/13/16 09/13/16 09/13/16 09/14/16 09/14/16 09/14/16 07:00 15:00 23:00 07:00 15:00 23:00 Intake Total 1299 ml 601 ml 353 ml 307 ml 646 ml Output Total 95 ml 3243 ml 215 ml 186 ml 3693 ml Balance 1204 ml -2642 ml 138 ml 121 ml -3047 ml IV Total 1299 ml 491 ml 253 ml 257 ml 473 ml Tube Feeding 0 ml 0 ml 113 ml Other 110 ml 100 ml 50 ml 60 ml Output Urine Total 0 ml 13 ml 0 ml 21 ml Stool Total 15 ml 125 ml 30 ml 100 ml 150 ml Gastric Drainage Total 50 ml 100 ml 100 ml 0 ml Drainage Total 30 ml 5 ml 85 ml 65 ml 43 ml Hemodialysis 3000 ml 3500 ml Bladder Scan Volume Amount 13 ml 21 ml # Voids 0 Result Diagram: 09/14/16 0345 09/14/16 0339 Objective Remarks Abdomen soft Wounds clean SERGEI' minimal drainage Accordians with murky drainage, Pelvic accordian output up slightly Assessment and Plan Assessment and Plan CV - requiring labetalol RESP - awaiting tracheostomy KIDNEY - still anuric,continue HD FEN - TF's resumed ID - WBC's down, Meropenem added LLQ SERGEI removed Trach soon Elana Moffett MD Sep 14, 2016 19:21
[2016-09-15] VITALS (19 sets, daily range): BP systolic 128–155; BP diastolic 73–90; PULSE 93–110; RESP 22–27; TEMP 98.8–101.2; O2SAT 97–100
[2016-09-15] MEDS: RESP: ALBUTEROL 2.5 MG/3 ML NEB (SCH) INH ×7 (00:19→23:32)
[2016-09-15] MEDS: PIPERACIL-TAZO 2.25 GM PREMIX 50 ML IV SCH ×4 (00:45→17:07)
[2016-09-15] MEDS: ACETAMINOPHEN 325 MG TAB PO PRN ×2 (01:12→20:43)
[2016-09-15] MEDS: SODIUM CHLORIDE 0.9% 10 ML VIAL IV FLUSH SCH ×3 (01:30→17:09)
[2016-09-15] MEDS: RESP: ALBUTEROL 2.5 MG/IPRATROPIUM 0.5 MG NEB (PRN) NEB (03:33)
[2016-09-15] MEDS: INSULIN ASPART SUPPLEMENTAL SCALE SQ SCH ×6 (04:00→20:00)
[2016-09-15] MEDS: FOSPHENYTOIN SODIUM 100 MG PE/2 ML VIAL IV SCH (05:52)
[2016-09-15] MEDS: cloNIDine HCL 0.1 MG TAB PO SCH ×3 (05:53→20:42)
--- NOTE | 2016-09-15 06:33 | RADRPT ---
EXAM DATE/TIME: 09/15/2016 05:16 [place] COMPARISON: CHEST SINGLE AP, September 13, 2016, 17:34. INDICATIONS : Shortness of breath. MEDICAL HISTORY : Chronic obstructive pulmonary disease. SURGICAL HISTORY : None. ENCOUNTER: Subsequent ACUITY: 3 weeks PAIN SCORE: Non-responsive. LOCATION: Bilateral chest FINDINGS: A single portable frontal view the chest shows an endotracheal tube with the tip 5 cm proximal to the lj. Nasogastric tube coiled within the body of the stomach. Patchy infiltrate throughout the rig ht lung as well as the left lung base have shown no significant change. No effusions. Surgical drain overlies the right upper quadrant. CONCLUSION: Unchanged bilateral pulmonary infiltrates. Evelio Hitchcock Jr., MD on September 15, 2016 at 6:31 Board Certified Radiologist. This report was verified electronically.
[2016-09-15 07:33] LABS: AUTOMATED NEUTROPHIL # 12.3 TH/MM3 (1.8-7.7); BASOPHIL # 0.2 TH/MM3 (0-0.2); EOSINOPHIL # 0.5 TH/MM3 (0-0.4); EOSINOPHIL % 2.8 % (0.0-4.0); HEMO FLAGS AUTO DIFF; LYMPH % 7.9 % (9.0-44.0); LYMPHOCYTE # 1.3 TH/MM3 (1.0-4.8); MEAN CELL VOLUME 84.9 FL (80.0-100.0); MEAN CORPUSCULAR HEMOGLOBIN 27.8 PG (27.0-34.0); MEAN CORPUSCULAR HGB CONC 32.7 % (32.0-36.0); MONO % 11.5 % (0.0-8.0); NEUT % 76.8 % (16.0-70.0); PLATELET COUNT 442 TH/MM3 (150-450); RED BLOOD COUNT 2.83 MIL/MM3 (4.50-5.90); RED CELL DISTRIBUTION WIDTH 15.2 % (11.6-17.2); WHITE BLOOD COUNT 16.1 TH/MM3 (4.0-11.0)
[2016-09-15 07:40] LABS: APTT (PATIENT) 28.8 SEC (24.3-30.1); INTERNATIONAL NORMALIZED RATIO 0.9 RATIO; PROTHROMBIN TIME - PATIENT 10.2 SEC (9.8-11.6)
[2016-09-15] MEDS: RESP: BUDESONIDE 0.5 MG/2 ML NEB NEB SCH ×2 (07:46→19:52)
[2016-09-15 08:07] LABS: ALKALINE PHOSPHATASE 391 U/L (45-117); ALT (GPT) 15 U/L (12-78); ANION GAP 13 MEQ/L (5-15); AST (GOT) 42 U/L (15-37); BICARBONATE 28.4 MEQ/L (21.0-32.0); BLOOD UREA NITROGEN 53 MG/DL (7-18); CHLORIDE 99 MEQ/L (98-107); GLOMERULAR FILTRATION RATE 11 ML/MIN (>89); INDIRECT BILIRUBIN 0.6 MG/DL (0.0-0.8); MAGNESIUM 2.2 MG/DL (1.5-2.5); POTASSIUM 4.4 MEQ/L (3.5-5.1); SODIUM (NA) 140 MEQ/L (136-145); TOTAL BILIRUBIN ADULT 2.5 MG/DL (0.2-1.0)
[2016-09-15 08:26] LABS: CREATINE KINASE 13 U/L (39-308)
[2016-09-15] MEDS: HEPARIN SODIUM - IV 10,000 UNITS/10 ML VIAL PRN (08:36)
[2016-09-15] MEDS: GENTAMICIN SULFATE (DIALYSIS USE ONLY) 20 MG/2 ML VIAL IV PRN (08:36)
[2016-09-15] MEDS: SODIUM CHLOR 0.9% 1000 ML INJ 1,000 ML IV PRN (08:36)
[2016-09-15 08:39] LABS: BANDS 5 % (0-6); EOSINOPHILS 1 % (0-4); METAMYELOCYTES 4 % (0-1); MYELOCYTES 1 % (0-0); NEUTROPHIL # MANUAL DIFF 12.6 TH/MM3 (1.8-7.7); POLYS (SEG NEUTROPHILS) 67 % (16-70); PROMYELOCYTES 1 % (0-0); WBC DIFF SAMPLE 100
[2016-09-15 08:40] LABS: PLATELET ESTIMATE SMEAR NORMAL (NORMAL); PLATELET MORPHOLOGY NORMAL (NORMAL); SCAN/DIFF FINAL DIFF MANUAL; STOMATOCYTES 1+ (NORMAL)
[2016-09-15] MEDS: ALBUMIN HUMAN 25% 25 GM/100 ML BAGP IV PRN (08:40)
[2016-09-15] MEDS: MICAFUNGIN INJ 100 MG in SODIUM CHLORIDE 0.9% INJ 100 ML IV SCH (08:49)
[2016-09-15] MEDS: CHLORHEXIDINE 0.12% (ORAL KIT) 15 ML CUP MT SCH ×2 (08:50→20:00)
[2016-09-15] MEDS: PANTOPRAZOLE SODIUM 40 MG VIAL IVP SCH (08:50)
[2016-09-15] MEDS: CALCIUM ACETATE 667 MG CAP PO SCH ×3 (08:50→17:07)
[2016-09-15] MEDS: HEPARIN SODIUM - SQ 10,000 UNITS/ML VIAL SQ SCH ×2 (08:50→20:42)
[2016-09-15] MEDS: MUPIROCIN 2% OINT 1 APPLIC/GM SYR EACH NARE SCH ×2 (08:51→20:43)
[2016-09-15] MEDS: SODIUM CHLORIDE 0.9% FLUSH 5 ML FLUSH IVF SCH (08:52)
[2016-09-15] MEDS: amLODIPine BESYLATE 5 MG TAB PO SCH ×2 (08:52→20:42)
[2016-09-15] MEDS: MIDAZOLAM 100 MG/ML INJ 100 ML IV SCH (09:03)
--- NOTE | 2016-09-15 10:04 | HHI.CCPN ---
Subjective Remarks/Hospital Course 08/25: Patient is a 58-year-old male with past medical history significant COPD who, on 08/18/16, underwent Laparoscopic robotic extensive lysis of adhesions, low anterior resection and small bowel resection. Apparently he was brought in by Dr. Moffett for Diverticulitis. Patient has a history of hypertension, COPD, and continues to smoke one pack of cigarettes a day. Postoperatively patient became progressively short of breath. Pulmonary was consulted on 08/21/16 as the patient was becoming more hypoxemic requiring BiPAP. CT of the chest PE protocol did not show any pulmonary embolism. Patient was placed on breathing treatments and IV Solu-Medrol 40 mg every [address] Renteria. Today a.m. patient was on 100% nonrebreather. Patient was diagnosed with an anastomotic leak today and was taken back to the OR by Dr. Moffett. He underwent exploratory laparotomy, I&D and loop ileostomy today. Postop patient remained hypoxemic requiring 70% oxygen, and hence was left intubated and critical care medicine was consulted. Dr. Arce evaluated the patient in ICU. He remained hypoxemic, FiO2 70%. Chest x-ray shows bibasilar mild infiltrates. On sedation lightening patient became very hypertensive, not following commands probably secondary to residual NM blockade received while being transported to ICU. Patient on receiving vancomycin Levaquin and Flagyl per Dr. Moffett. Dr. Arce added cefepime to cover for Pseudomonas. Holding Solu-Medrol due to anastomotic leak. 08/26: Remains sedated, orally intubated on mechanical ventilation. Went into anuric renal failure yesterday which did not respond to fluid boluses and diuretics hence was started on hemodialysis after placement of right IJ Vas- Cath. Currently sedated, arousable, remains orally intubated on mechanical ventilation. Blood pressure borderline last evening following dialysis for which she was started on low-dose vasopressin 0.03 units per minute and Levophed which is currently at 1 jose per minute. Started on TPN last night following which he has been hyperglycemic. 08/27: Sedated, arousable, orally intubated on mechanical ventilation. Spiking fevers overnight. Off Levophed, transiently off vasopressin. Remains on TPN. 08/28: Remains sedated, arousable, orally intubated on mechanical ventilation. On low-dose vasopressin. TPN continues. Made about 500 cc of urine in the last 24 hours. 08/29: In sedated, arousable, orally intubated on mechanical ventilation. Remains on TPN. Dirty drainage from left-sided SERGEI drain noted overnight. Dr. Moffett obtaining CT abdomen pelvis with oral contrast and ID consulted. 08/30: CURRENT TEMPERATURE 99. Status post 4 L hemodialysis today. No current change in therapy. White blood cell count remained stable. Off vasopressors. Arousable to voice. Versed has been discontinued. We'll attempt CPAP trials again today. 08/31: MAXIMUM TEMPERATURE 100.4. Currently 100.1. Currently resting in bed in no acute distress. Continues with scant drainage from bilateral JPs. We'll attempt CPAP trial again today. Positive stool from ostomy bag 09/01: Tmax 99.8. Currently 99.3. Placement of the new right IJ vas catheter today. Plan for IR to possibly drain right lower quadrant fluid collection. Arousable and moves all 4 extremity spontaneously. 09/02: Currently afebrile. Noted placement of iron drain with accordion drain. Growing Pseudomonas. Lasted only 2 hours on CPAP trials today. 09/03: Tolerated SBT for only 30 mins and required PS 20. Not ready to extubate. 09/04: Tachypnea related to anxiety? or metabolic acidosis. Will check VBG. Not tolerating SBT. Anemia. Transfuse during HD. 09/05: Remains very tachypneic on SBTs. Unable to extubate. 09/06: Leukocytosis and bandemia. Acts like ongoing sepsis. 09/07: No significant changes. Afebrile. Tolerating TFs as recommended by CRS. Will transition from TPN to enteral feeds now. 09/08: Bandemia persists. Tolerating full TFs. D/c'd TPN. Glucose control acceptable. 09/09: Tolerating longer CPAP/PS trials. 09/10: Stronger respiratory effort. Try to extubate today. 09/11: Stable hemodynamics, marginal respiratory function. 09/11 update 1800 hrs: Patient developed sudden hyperventilation to 55-60/min, hypertensive urgency to 220/120s, unresponsive state, started versed 10 mg/hr after 10 mg iv. Load with cerebyx, get head CT, EEG in a.m. 09/12: BP and pulse rate control improved with sedation. Etiology unclear. Suspected intracranial process but CT head normal. Possibly seizures. EEG pending this morning. WBC with bandemia persists. 09/13: CURRENT TEMPERATURE 99. Heart rate and blood pressure control. Noted T changes last night noted a potassium 8.2. Noted hemodialysis catheter placed by overnight zigzag machine operator in right femoral vein and hemodialysis currently undergoing. Plan for drainage of epigastric fluid collection by IR today. 09/14: Currently afebrile. Status post prior drainage of epigastric fluid area. Currently 60 ccwhite pus accordian drain. Status post bronchoscopy yesterday. Subjective 09/15 - intubation day #22. Family waiting another 24 hours to consider tracheostomy. He is not able to be extubated. Currently undergoing hemodialysis. Likely dialysis dependent. Objective Vital Signs Date Time Temp Pulse Resp B/P Pulse Ox O2 Delivery O2 Flow Rate FiO2 09/15/16 07:46 99 40 09/15/16 06:00 93 09/15/16 04:00 99.6 24 131/73 Intake and Output 09/14/16 09/14/16 09/15/16 08:00 16:00 00:00 Intake Total 307 ml 646 ml 791 ml Output Total 186 ml 3693 ml 643 ml Balance 121 ml -3047 ml 148 ml Result Diagram: 09/15/16 0645 09/15/16 0645 Other Results Microbiology Date/Time Procedure Status Source Growth 09/13/16 17:20 Gram Stain - Final Resulted Bronchial Washings Right Mid Lobe 09/13/16 17:20 Bronchial Culture - Preliminary Resulted Gram Negative Denis 09/13/16 17:20 Fungal Smear - Final Resulted Bronchial Washings Right Mid Lobe NO FUNGAL ELEMENTS SEEN. 09/13/16 17:20 Fungal Culture Resulted Bronchial Washings Right Mid Lobe Pending 09/13/16 17:20 Acid Fast Stain Received Bronchial Washings Right Mid Lobe Pending 09/13/16 17:20 Mycobacterial Culture Received Bronchial Washings Right Mid Lobe Pending Imaging Last Impressions Chest X-Ray 09/15/16 0600 Signed Impressions: Service Date/Time: Thursday, September 15, 2016 05:16 - CONCLUSION: Unchanged bilateral pulmonary infiltrates. Evelio Hitchcock Jr., MD Abscess Drainage CT 09/13/16 0000 Signed Impressions: Service Date/Time: Tuesday, September 13, 2016 14:30 - CONCLUSION: Uncomplicated CT guided drainage. Carlo Cortes MD Head CT 09/11/16 0000 Signed Impressions: Service Date/Time: Sunday, September 11, 2016 18:41 - CONCLUSION: Normal examination for a patient of this age. Dave Easton MD Abdomen/Pelvis CT 09/11/16 0000 Signed Impressions: Service Date/Time: Monday, September 12, 2016 04:12 - CONCLUSION: 1. Small bowel dilatation has resolved. 2. Postsurgical changes are identified with increase in size of epigastric fluid collection, but decreased fluid within the mesentery and right paracolic region. 3. There is no evidence for enteric contrast media extravasation. 4. Pulmonary consolidation and effusions. Romel Kohli MD Retroperitoneal Abscess Drainage 09/01/16 0600 Signed Impressions: Service Date/Time: Thursday, September 01, 2016 13:05 - CONCLUSION: Uncomplicated CT guided drainage of a right lower quadrant fluid collection. Approximately 75 cc of fecal-like brown material was aspirated. The air and fluid collection may communicate with the inferior aspect of the midline wound on the anterior abdominal wall. Claude Carrasco MD Abdomen X-Ray 08/24/16 0000 Signed Impressions: Service Date/Time: August 07:44 - CONCLUSION: Gaseous distention of multiple bowel loops possible ileus. Jony Miller MD Enema w/Water Soluble 08/23/16 0000 Signed Impressions: Service Date/Time: Tuesday, August 23, 2016 10:12 - CONCLUSION: Anastomosis appears patent without extravasation. Aditya Rocha MD FACR CT Angiography 08/21/16 0000 Signed Impressions: Service Date/Time: Sunday, August 21, 2016 14:05 - CONCLUSION: 1. There is no evidence for central pulmonary emboli. 2. Minimal subcutaneous air as well as free intraperitoneal air. Aditya Rocha MD FACR Objective Remarks GENERAL: 56-year-old male, critically ill, heavily sedated. SKIN: Warm. Dry. HEAD: Atraumatic. Normocephalic. ENT: Orotracheally intubated NECK: Trachea midline. Supple. CARDIOVASCULAR:, RR. S1, S2. No S4. No m/c/g/r. RESPIRATORY: Mechanical ventilation, scattered rhonchi, no wheezing. GASTROINTESTINAL: Abdomen non distended. Midline incision clean and intact. BS active. Ostomy pink with brown stool. 2 accordian drain, 2 SER[address] and vac in place. MUSCULOSKELETAL: Extremities with Tr+ bilateral upper and lower extremity edema , well perfused. NEUROLOGICAL:Pupils equal round and reactive 2 mm bilaterally. Grimaces with suctioning. Date of Insertion: Aug 31, 2016 Date of Removal: Sep 12, 2016 Side: Right A/P Assessment and Plan NEURO/PSYCH: History of anxiety Acetaminophen for fever Haldol 1 mg every 4 hours when necessary RASS 1-2 Ativan 0.5 mg every one hour when necessary agitation Morphine sulfate 3 milligrams IV every 3 hours when necessary pain -Daily sedation vacation, follow neuro status. -Head CT 09/11 no acute intracranial findings -EEG 09/12 revealed mild to moderate encephalopathy. No epileptiform activity. Currently on Celebrex 100 mg IV 3 times a day. Switch to 3 mg liquid at night. Recheck level in a.m. was 4.1. Recheck tomorrow RESP: Acute hypoxemic respiratory failure COPD exacerbation Probable healthcare associated pneumonia -Continue ACV 22/600 0.75/8/50 Ventilator bundle -Albuterol nebs every 4 hours scheduled and when necessary duo nebs, Symbicort 2 puffs every 12 was discontinued while in ventilator. Continue Pulmicort 0.5/2 twice a day -Broad-spectrum antibiotics as below -Continue daily C Pap trials. Dr. Renteria/Pulmonary following Increase SBTs length as able. Will need tracheostomy. Family agreed now want to wait an additional 24 hours to "decided ". Intubation day number 22. Currently not able to extubate. CV: Hypotension secondary to septic shock resolved History of hypertension -Received multiple fluid boluses on 08/25. IV fluids discontinued subsequently in view of anuria necessitating hemodialysis. Off all vasopressors -Attempt negative fluid balance with hemodialysis. Currently on clonidine 0.1 3 times a day, Norvasc 5 mg twice a day.. GI/ Nutrition: Anastomotic leak status post exploratory laparotomy, I&D, loop ileostomy 08/24/16 s/p Laparoscopic robotic extensive ANNA MARIE, robotic LAR and small bowel resection Laparoscopic robotic ANNA MARIE, robotic LAR and small bowel resection with anastomotic leak History of diverticulitis -Status post exploratory laparotomy, I&D, loop ileostomy 08/24/16 -Postoperative management per Dr. Moffett. Broad-spectrum antibiotics as below. Left SERGEI drain 5 cc. Right SERGEI 25 cc. positive ostomy output CT abdomen pelvis with oral contrast 08/29 reveal small bowel ileus. Serous fluid collection likely postoperative changes. - On Reglan to improve GI motility -Started on TPN 08/25 at 65 cc an hour with lipids daily Protonix for GI prophylaxis Accordion drain to right lower quadrant 09/01 by IR. -40 cc. Right lower quadrant SERGEI 10 cc. LLQ SERGEI 3 cc. Vac-Pac medial 0 cc. Accordion drain to epigastric -60 cc looking white pus Renal/: Acute kidney injury History BPH Status post bilateral ureteral stents placed by Dr. Fraser 08/18 -Monitor renal function closely. Mg catheter. -IV fluids discontinued in view of anuric renal failure and hyperkalemia necessitating hemodialysis. Nephrology consulted and following. -Attempt maintaining even to slightly negative fluid balance if blood pressure permits. New right IJ hemodialysis catheter placed 09/01 -> D/C 09/13. New right femoral hemodialysis catheter placed 09/13 ID: Anastomotic leak Sepsis Probable HCAP -IV vancomycin, Flagyl and Levaquin per Dr. Moffett. Levaquin discontinued . Zosyn started 09/02. Flagyl and micafungin per ID added. Pertinent culture 09/13 - bronchial -gram-negative denis 09.13 - abdomen abscess -gram-negative denis 09/01: Abdominal wound - Pseudomonas, enterococcus, Iram 08/31 - line culture Pseudomonas/coag negative staph 08/31 - blood cultures 2 -no growth 08/31 - sputum - pending 08/29 - wound - Pseudomonas, group D enterococcus, C. albicans and yeast 08/25 blood cultures - no growth 08/25 sputum - Serratia/Klebsiella/Pseudomonas 08/24 - wound - no growth HEME: Leukocytosis Normocytic anemia -Monitor CBC, CMP, coags ENDO: -Sliding-scale insulin for glycemic control. 0 units sliding scale past 24 hours. Levemir 20 units twice a day currently on hold as nothing by mouth for drain placement yesterday. Likely resume his tube feeds have been restarted FEN: Hyponatremia Hyperkalemia. Hyperphosphatemia Stat hemodialysis today. Recheck potassium post dialysis Continue PhosLo 667 mg 3 times a day for hyperphosphatemia. Hemodialysis 1K bath today PROPH: -Bilateral lower extremity SCDs. Heparin subcutaneous for DVT prophylaxis currently on hold due to procedures plan today.. Protonix for GI prophylaxis LINES: -Left subclavian central line placed in the OR 08/24 - 08/31. Right subclavian central line placed 08/31 - 09/11 - RIJ dialysis catheter 08/25 -08/31. New right IJ hemodialysis catheter 09/01 - - Right femoral hemodialysis catheter 09/13 Critical Care: The total critical care time was 35 minutes. Time to perform other separately billable procedures was not included in the critical care time. Connor Lebron MD Sep 15, 2016 10:04
--- NOTE | 2016-09-15 10:35 | HHI.NPPN ---
Subjective General Problems: Edema Renal Failure: Acute Interval History Seen during bedside dialysis. No change in clinical condition. (Fransisca Canela) Review of Systems General General Remarks unable to evaluate (Fransisca Canela) Objective Data Data 09/14/16 09/15/16 19:00 07:00 Intake Total 646 ml 1427 ml Output Total 3693 ml 1570 ml Balance -3047 ml -143 ml IV Total 473 ml 621 ml Tube Feeding 113 ml 686 ml Other 60 ml 120 ml Stool Total 150 ml 1500 ml Drainage Total 43 ml 70 ml Hemodialysis 3500 ml # Voids 0 Vital Signs Date Time Temp Pulse Resp B/P Pulse Ox O2 Delivery O2 Flow Rate FiO2 09/15/16 07:46 99 40 09/15/16 06:00 93 09/15/16 04:16 98 40 09/15/16 04:00 99.6 102 24 131/73 98 09/15/16 04:00 102 09/15/16 04:00 40 09/15/16 02:00 110 09/15/16 00:19 97 40 09/15/16 00:00 101.2 108 22 155/90 97 09/15/16 00:00 93 09/15/16 00:00 40 09/14/16 22:00 110 09/14/16 20:11 99 40 09/14/16 20:00 116 09/14/16 20:00 40 09/14/16 20:00 100.5 116 24 166/85 97 09/14/16 18:00 119 09/14/16 16:00 99.0 125 26 166/103 100 09/14/16 16:00 125 09/14/16 16:00 40 09/14/16 15:41 99 40 09/14/16 14:00 116 09/14/16 12:00 40 09/14/16 12:00 109 09/14/16 12:00 99.3 109 22 67/ 99 09/14/16 11:24 97 40 (Fransisca Canela) -: 09/15/16 0645 09/15/16 0645 Imaging Last Impressions Chest X-Ray 09/15/16 0600 Signed Impressions: Service Date/Time: Thursday, September 15, 2016 05:16 - CONCLUSION: Unchanged bilateral pulmonary infiltrates. Evelio Hitchcock Jr., MD Abscess Drainage CT 09/13/16 0000 Signed Impressions: Service Date/Time: Tuesday, September 13, 2016 14:30 - CONCLUSION: Uncomplicated CT guided drainage. Carlo Cortes MD Head CT 09/11/16 0000 Signed Impressions: Service Date/Time: Sunday, September 11, 2016 18:41 - CONCLUSION: Normal examination for a patient of this age. Dave Easton MD Abdomen/Pelvis CT 09/11/16 0000 Signed Impressions: Service Date/Time: Monday, September 12, 2016 04:12 - CONCLUSION: 1. Small bowel dilatation has resolved. 2. Postsurgical changes are identified with increase in size of epigastric fluid collection, but decreased fluid within the mesentery and right paracolic region. 3. There is no evidence for enteric contrast media extravasation. 4. Pulmonary consolidation and effusions. Romel Kohli MD Retroperitoneal Abscess Drainage 09/01/16 0600 Signed Impressions: Service Date/Time: Thursday, September 01, 2016 13:05 - CONCLUSION: Uncomplicated CT guided drainage of a right lower quadrant fluid collection. Approximately 75 cc of fecal-like brown material was aspirated. The air and fluid collection may communicate with the inferior aspect of the midline wound on the anterior abdominal wall. Claude Carrasco MD Abdomen X-Ray 08/24/16 0000 Signed Impressions: Service Date/Time: August 07:44 - CONCLUSION: Gaseous distention of multiple bowel loops possible ileus. Jony Miller MD Enema w/Water Soluble 08/23/16 0000 Signed Impressions: Service Date/Time: Tuesday, August 23, 2016 10:12 - CONCLUSION: Anastomosis appears patent without extravasation. Aditya Rocha MD FACR CT Angiography 08/21/16 0000 Signed Impressions: Service Date/Time: Sunday, August 21, 2016 14:05 - CONCLUSION: 1. There is no evidence for central pulmonary emboli. 2. Minimal subcutaneous air as well as free intraperitoneal air. Aditya Rocha MD FACR Tubes & Lines: Vas-Cath Tubes & Lines Comment TLC, NG tube, SERGEI drain RLQ Drip Comment fentanyl, propofol , versed (Fransisca Canela) Physical Exam General Appearance: No Acute Distress Appearance Remarks intubated, sedated, awakens to stimuli (Fransisca Canela) Throat Throat Exam: Oral Mucosa [place] & Moist (Fransisca Canela) Pulmonary Resp Exam: Breath Sounds Equal, No Distress, Crackles, Sputum, Diminished Breath Sounds Resp Remarks vented, increased secretions (Fransisca Canela) Cardiology CV Exam: Regular, Normal Sinus Rhythm (Fransisca Canela) Gastrointestinal/Abdomen GI Exam: Distended GI Remarks distended, firm; colostomy with red stoma; hyperactive bowel sounds (Fransisca Canela) Musculoskeletal MS Exam: Joints Intact, Normal Tone (Fransisca Canela) Integumentary Skin Exam: Warm, Dry Skin Remarks below umbilicus, midabdominal wound has dehisced (Fransisca Canela) Extremeties Extremities Exam: No Edema, Pedal Pulses Palpable (Fransisca Canela) Neurologic Neuro Exam: Obtunded, Unresponsive, Sedated (Fransisca Canela) VTE Prophylaxis Device: SCDs (Fransisca Canela) Assessment/Plan Discussed Condition With: Relative Assessment Summary: VIRIDIANA/Acute Renal Failure, Acute Tubular Necrosis, Fluid/ Volume Overload Problem List: (1) Acute renal failure Plan: He has developed ATN due to sepsis. Daily HD, 3500 ml UF yesterday seen during dialysis today on a 3K, 350 BFR, goal 3L He will be dialyzed daily, with possible day off on Sunday. Developed life threatening hyperkalemia with EKG changes this week, monitor for recurrence oligoanuric, monitor for changes Avoid nephrotoxic agents. Avoid IVF specifically LR. On Calcium acetate for hyperphosphatemia. (2) Diverticulitis Plan: with sepsis s/p colon resection with complications surgery following. multiple positive cultures of wound, catheter tip, and sputum ID following, managing antibiotics. He is on meropenem and Zosyn. s/p bronchoscopy on 09/13. (Fransisca Canela) Plan patient was seen and examined. Agree with above assessment and plan. Notes were reviewed. No signs of renal recovery. Hyperkalemia has improved. Continue dialysis support. (Tito Kuo MD) Problem Qualifiers (1) Acute renal failure: Qualified Code: N17.0 - Acute renal failure with tubular necrosis Fransisca Canela Sep 15, 2016 10:35 Tito Kuo MD Sep 15, 2016 13:48
[2016-09-15] MEDS: fentaNYL 2,500 MCG/NS 250 ML IV SCH (11:03)
[2016-09-15] MEDS: LABETALOL HCL 100 MG/20 ML VIAL IV PUSH PRN ×3 (11:29→17:08)
--- NOTE | 2016-09-15 12:46 | HHI.IDPN ---
Note Infectious Disease Note Discussed with RN. Patient is on the vent. No distress. Had dialysis this am. Sedated. Periodic temp spike. WBC lower. Had new drain placed into abdomen yesterday - 09/13/16. Bronch culture from 09/13 has pseudomonas. Abscess fluid 09/13 has gram neg denis. PAST MEDICAL HISTORY 1. Diverticulitis. 2. COPD. 3. Hypertension. 4. Anxiety disorder. 5. BPH. 6. History of tonsillectomy. ALLERGIES No known drug allergies. ANTIBIOTICS 1. Micafungin. 2. Meropenem. OBJECTIVE: Vital Signs Date Time Temp Pulse Resp B/P Pulse Ox O2 Delivery O2 Flow Rate FiO2 09/15/16 11:55 97 40 09/15/16 10:00 107 09/15/16 08:00 40 09/15/16 08:00 98 09/15/16 08:00 99.1 98 22 136/80 98 09/15/16 07:46 99 40 09/15/16 06:00 93 09/15/16 04:16 98 40 09/15/16 04:00 99.6 102 24 131/73 98 09/15/16 04:00 102 09/15/16 04:00 40 09/15/16 02:00 110 09/15/16 00:19 97 40 09/15/16 00:00 101.2 108 22 155/90 97 09/15/16 00:00 93 09/15/16 00:00 40 09/14/16 22:00 110 09/14/16 20:11 99 40 09/14/16 20:00 116 09/14/16 20:00 40 09/14/16 20:00 100.5 116 24 166/85 97 09/14/16 18:00 119 09/14/16 16:00 99.0 125 26 166/103 100 09/14/16 16:00 125 09/14/16 16:00 40 09/14/16 15:41 99 40 09/14/16 14:00 116 09/14/16 09/14/16 09/15/16 15:00 23:00 07:00 Intake Total 646 ml 791 ml 636 ml Output Total 3693 ml 643 ml 927 ml Balance -3047 ml 148 ml -291 ml IV Total 473 ml 377 ml 244 ml Tube Feeding 113 ml 354 ml 332 ml Other 60 ml 60 ml 60 ml Stool Total 150 ml 600 ml 900 ml Drainage Total 43 ml 43 ml 27 ml Hemodialysis 3500 ml # Voids 0 Laboratory Tests Test 09/14/16 09/15/16 03:45 06:45 White Blood Count 18.0 TH/MM3 16.1 TH/MM3 Red Blood Count 2.85 MIL/MM3 2.83 MIL/MM3 Hemoglobin 8.0 GM/DL 7.9 GM/DL Hematocrit 24.0 % 24.0 % Mean Corpuscular Volume 84.4 FL 84.9 FL Mean Corpuscular Hemoglobin 28.1 PG 27.8 PG Mean Corpuscular Hemoglobin 33.3 % 32.7 % Concent Red Cell Distribution Width 15.4 % 15.2 % Platelet Count 468 TH/MM3 442 TH/MM3 Mean Platelet Volume 8.2 FL 8.0 FL Neutrophils (%) (Auto) 79.3 % 76.8 % Lymphocytes (%) (Auto) 6.0 % 7.9 % Monocytes (%) (Auto) 10.8 % 11.5 % Eosinophils (%) (Auto) 2.9 % 2.8 % Basophils (%) (Auto) 1.0 % 1.0 % Neutrophils # (Auto) 14.2 TH/MM3 12.3 TH/MM3 Lymphocytes # (Auto) 1.1 TH/MM3 1.3 TH/MM3 Monocytes # (Auto) 1.9 TH/MM3 1.9 TH/MM3 Eosinophils # (Auto) 0.5 TH/MM3 0.5 TH/MM3 Basophils # (Auto) 0.2 TH/MM3 0.2 TH/MM3 CBC Comment AUTO DIFF AUTO DIFF Differential Total Cells 100 100 Counted Neutrophils % (Manual) 80 % 67 % Band Neutrophils % 3 % 5 % Lymphocytes % 5 % 9 % Monocytes % 4 % 12 % Eosinophils % 4 % 1 % Basophils % 1 % Neutrophils # (Manual) 15.5 TH/MM3 12.6 TH/MM3 Metamyelocytes 2 % 4 % Myelocytes 1 % 1 % Differential Comment FINAL DIFF FINAL DIFF MANUAL MANUAL Platelet Estimate HIGH NORMAL Platelet Morphology Comment NORMAL NORMAL Stomatocytes 2+ 1+ Promyelocytes 1 % Laboratory Tests Test 09/14/16 09/15/16 03:39 06:45 Sodium Level 137 MEQ/L 140 MEQ/L Potassium Level 5.7 MEQ/L 4.4 MEQ/L Chloride Level 95 MEQ/L 99 MEQ/L Carbon Dioxide Level 25.1 MEQ/L 28.4 MEQ/L Anion Gap 17 MEQ/L 13 MEQ/L Blood Urea Nitrogen 66 MG/DL 53 MG/DL Creatinine 5.74 MG/DL 5.41 MG/DL Estimat Glomerular Filtration 10 ML/MIN 11 ML/MIN Rate Random Glucose 65 MG/DL 96 MG/DL Calcium Level 9.2 MG/DL 8.9 MG/DL Phosphorus Level 8.8 MG/DL 6.1 MG/DL Magnesium Level 2.2 MG/DL 2.2 MG/DL Total Bilirubin 2.6 MG/DL 2.5 MG/DL Aspartate Amino Transf 38 U/L 42 U/L (AST/SGOT) Alanine Aminotransferase 11 U/L 15 U/L (ALT/SGPT) Alkaline Phosphatase 303 U/L 391 U/L Total Protein 7.7 GM/DL 7.7 GM/DL Albumin 1.8 GM/DL 2.0 GM/DL Direct Bilirubin 1.9 MG/DL Indirect Bilirubin 0.6 MG/DL Total Creatine Kinase 13 U/L Microbiology Date/Time Procedure Status Source Growth 09/13/16 15:03 Gram Stain - Final Resulted Abscess Abdomen 09/13/16 15:03 Wound Culture - Preliminary Resulted Gram Negative Denis 09/13/16 17:20 Gram Stain - Final Resulted Bronchial Washings Right Mid Lobe 09/13/16 17:20 Bronchial Culture - Preliminary Resulted Pseudomonas Aeruginosa 09/13/16 17:20 Acid Fast Stain Worksheet Bronchial Washings Right Mid Lobe Pending 09/13/16 17:20 Mycobacterial Culture Worksheet Bronchial Washings Right Mid Lobe Pending 09/13/16 17:20 Fungal Smear - Final Resulted Bronchial Washings Right Mid Lobe NO FUNGAL ELEMENTS SEEN. 09/13/16 17:20 Fungal Culture Resulted Bronchial Washings Right Mid Lobe Pending Microbiology Date/Time Procedure Status Source Growth 08/31/16 15:40 Wound Culture - Final Complete Catheter Tip Central Venous Line Pseudomonas Species Staph Sp Coagulase Negative 08/31/16 15:40 Fungal Culture - Final Complete Catheter Tip Central Venous Line 09/01/16 13:45 Gram Stain - Final Complete Abscess Abdomen 09/01/16 13:45 Wound Culture - Final Complete Pseudomonas Aeruginosa Enterococcus Faecalis Iram Glabrata Imaging: Chest X-Ray 09/15/16 0600 Signed Impressions: Service Date/Time: Thursday, September 15, 2016 05:16 - CONCLUSION: Unchanged bilateral pulmonary infiltrates. Evelio Hitchcock Jr., MD Chest X-Ray 09/13/16 0000 Signed Impressions: Service Date/Time: Tuesday, September 13, 2016 17:34 - CONCLUSION: Worsening aeration throughout the right lung Claude Rosario MD Abscess Drainage CT 09/13/16 0000 Signed Impressions: Service Date/Time: Tuesday, September 13, 2016 14:30 - CONCLUSION: Uncomplicated CT guided drainage. Carlo Cortes MD Head CT 09/11/16 0000 Signed Impressions: Service Date/Time: Sunday, September 11, 2016 18:41 - CONCLUSION: Normal examination for a patient of this age. Dave Easton MD Abdomen/Pelvis CT 09/11/16 0000 Signed Impressions: Service Date/Time: Monday, September 12, 2016 04:12 - CONCLUSION: 1. Small bowel dilatation has resolved. 2. Postsurgical changes are identified with increase in size of epigastric fluid collection, but decreased fluid within the mesentery and right paracolic region. 3. There is no evidence for enteric contrast media extravasation. 4. Pulmonary consolidation and effusions. Romel Kohli MD Chest X-Ray 09/03/16 0600 Signed Impressions: Service Date/Time: Saturday, September 03, 2016 04:03 - CONCLUSION: Stable left lower lobe consolidation and right lower lung infiltrates. Evelio Boyd MD Retroperitoneal Abscess Drainage 09/01/16 0600 Signed Impressions: Service Date/Time: Thursday, September 01, 2016 13:05 - CONCLUSION: Uncomplicated CT guided drainage of a right lower quadrant fluid collection. Approximately 75 cc of fecal-like brown material was aspirated. The air and fluid collection may communicate with the inferior aspect of the midline wound on the anterior abdominal wall. Claude Carrasco MD Abdomen/Pelvis CT 08/29/16 0000 Signed Impressions: Service Date/Time: Monday, August 29, 2016 17:12 - CONCLUSION: Post surgical changes following partial colon resection. Persistent pockets of fluid. Largest is located in the pelvis and contains an air-fluid level. Abscess formation cannot be excluded. Small bowel ileus Bibasilar airspace disease and pleural effusions Aakash Iqbal MD Abdomen X-Ray 08/24/16 0000 Signed Impressions: Service Date/Time: August 07:44 - CONCLUSION: Gaseous distention of multiple bowel loops possible ileus. Jony Miller MD Enema w/Water Soluble 08/23/16 0000 Signed Impressions: Service Date/Time: Tuesday, August 23, 2016 10:12 - CONCLUSION: Anastomosis appears patent without extravasation. Aditya Rocha MD FACR CT Angiography 08/21/16 0000 Signed Impressions: Service Date/Time: Sunday, August 21, 2016 14:05 - CONCLUSION: 1. There is no evidence for central pulmonary emboli. 2. Minimal subcutaneous air as well as free intraperitoneal air. Aditya Rocha MD FACR PHYSICAL EXAMINATION GENERAL: Sedated on the ventilator. HEENT: The oropharynx is intubated. No icterus. NECK: No adenopathy or swelling. LUNGS: Bibasilar rhonchi. Moving air well. HEART: Regular rate and rhythm. No audible murmurs, rubs or gallops. ABDOMEN: Positive bowel sounds. Wound vac in place has henry colored drainage. 2 Accordion abdominal drains has light chocolate colored drainage. EXTREMITIES: No clubbing or cyanosis. 1+ edema. Distal pulses 2+. SKIN: Warm and moist. No rash. NEUROLOGIC: Unable to fully assess. IMPRESSION 1. Sepsis. Pseudomonas on CVL culture of removed line. 2. Peritonitis. Post abdominal surgery/Bowel resection - enterococcus, pseudomonas and yeast. 3. Pneumonia due to gram-negative bacteria with sputum culture showing Serratia, Klebsiella and Pseudomonas. New bronch. culture has pseudomonas. 4. Leukocytosis secondary to infection. WBC still elevated. likely from abdominal abscess. 5. Acute renal failure. 6. Acute respiratory failure. Remains on vent. RECOMMENDATIONS 1. Continue micafungin. 2. Continue Meropenem. 3. Monitor abdominal fluid culture. 4. Monitor white blood cell count and temp. Tim Apodaca MD Sep 15, 2016 12:46
--- NOTE | 2016-09-15 15:17 | HHI.PR ---
Subjective Remarks POD#28 s/p robotic LAR/SBR/ANNA MARIE, POD#22 s/p ex lap, washout, diverting loop ileostomy Stable requiring increased sedative Objective Vital Signs Date Time Temp Pulse Resp B/P Pulse Ox O2 Delivery O2 Flow Rate FiO2 09/15/16 14:00 110 09/15/16 12:00 99.0 102 23 139/79 100 09/15/16 12:00 40 09/15/16 12:00 102 09/15/16 11:55 97 40 09/15/16 10:00 107 09/15/16 08:00 40 09/15/16 08:00 98 09/15/16 08:00 99.1 98 22 136/80 98 09/15/16 07:46 99 40 09/15/16 06:00 93 09/15/16 04:16 98 40 09/15/16 04:00 99.6 102 24 131/73 98 09/15/16 04:00 102 09/15/16 04:00 40 09/15/16 02:00 110 09/15/16 00:19 97 40 09/15/16 00:00 101.2 108 22 155/90 97 09/15/16 00:00 93 09/15/16 00:00 40 09/14/16 22:00 110 09/14/16 20:11 99 40 09/14/16 20:00 116 09/14/16 20:00 40 09/14/16 20:00 100.5 116 24 166/85 97 09/14/16 18:00 119 09/14/16 16:00 99.0 125 26 166/103 100 09/14/16 16:00 125 09/14/16 16:00 40 09/14/16 15:41 99 40 I/O 09/14/16 09/14/16 09/14/16 09/15/16 09/15/16 09/15/16 07:00 15:00 23:00 07:00 15:00 23:00 Intake Total 307 ml 646 ml 791 ml 636 ml 802 ml Output Total 186 ml 3693 ml 643 ml 927 ml 3188 ml Balance 121 ml -3047 ml 148 ml -291 ml -2386 ml IV Total 257 ml 473 ml 377 ml 244 ml 397 ml Tube Feeding 113 ml 354 ml 332 ml 345 ml Other 50 ml 60 ml 60 ml 60 ml 60 ml Output Urine Total 21 ml Stool Total 100 ml 150 ml 600 ml 900 ml 475 ml Gastric Drainage Total 0 ml Drainage Total 65 ml 43 ml 43 ml 27 ml 13 ml Hemodialysis 3500 ml 2700 ml Bladder Scan Volume Amount 21 ml # Voids 0 Result Diagram: 09/15/1645 09/15/16644 Objective Remarks Abdomen soft Wounds clean SERGEI' minimal drainage Accordians with murky drainage, Pelvic accordian output up Assessment and Plan Assessment and Plan CV - no change RESP - awaiting tracheostomy KIDNEY - still anuric,continue HD FEN - TF's resumed, tolerating ID - WBC's down, Meropenem added RUQ SERGEI removed 1 unit PRBC Trach Elana Olvera MD Sep 15, 2016 15:17
[2016-09-15] MEDS: MEROPENEM INJ 500 MG in SODIUM CHLORIDE 0.9% INJ 100 ML IV SCH (15:30)
[2016-09-15] MEDS ORDERED: SODIUM CHLOR 0.9% 250 ML INJ 250 ML IV ONE (16:00)
--- NOTE | 2016-09-15 16:15 | HHI.PR ---
Subjective Remarks YOAA male with robotic surgery,COPD exac Underwent exp lap,I&d and loop iliostomy placement Remains on vent On Fentanyl and Versed Had HD today no fever Objective Vital Signs Vital Signs Date Time Temp Pulse Resp B/P Pulse Ox O2 Delivery O2 Flow Rate FiO2 09/15/16 15:31 98 40 09/15/16 14:00 110 09/15/16 12:00 99.0 102 23 139/79 100 09/15/16 12:00 40 09/15/16 12:00 102 09/15/16 11:55 97 40 09/15/16 10:00 107 09/15/16 08:00 40 09/15/16 08:00 98 09/15/16 08:00 99.1 98 22 136/80 98 09/15/16 07:46 99 40 09/15/16 06:00 93 09/15/16 04:16 98 40 09/15/16 04:00 99.6 102 24 131/73 98 09/15/16 04:00 102 09/15/16 04:00 40 09/15/16 02:00 110 09/15/16 00:19 97 40 09/15/16 00:00 101.2 108 22 155/90 97 09/15/16 00:00 93 09/15/16 00:00 40 09/14/16 22:00 110 09/14/16 20:11 99 40 09/14/16 20:00 116 09/14/16 20:00 40 09/14/16 20:00 100.5 116 24 166/85 97 09/14/16 18:00 119 I/O 09/14/16 09/14/16 09/14/16 09/15/16 09/15/16 09/15/16 07:00 15:00 23:00 07:00 15:00 23:00 Intake Total 307 ml 646 ml 791 ml 636 ml 802 ml Output Total 186 ml 3693 ml 643 ml 927 ml 3188 ml Balance 121 ml -3047 ml 148 ml -291 ml -2386 ml IV Total 257 ml 473 ml 377 ml 244 ml 397 ml Tube Feeding 113 ml 354 ml 332 ml 345 ml Other 50 ml 60 ml 60 ml 60 ml 60 ml Output Urine Total 21 ml Stool Total 100 ml 150 ml 600 ml 900 ml 475 ml Gastric Drainage Total 0 ml Drainage Total 65 ml 43 ml 43 ml 27 ml 13 ml Hemodialysis 3500 ml 2700 ml Bladder Scan Volume Amount 21 ml # Voids 0 Result Diagram: 09/15/1645 09/15/16644 Objective Remarks GENERAL: WBWN obese male, on Vent , sedated SKIN: Warm and dry. HEAD: Normocephalic. EYES: No scleral icterus. No injection or drainage. NECK: Supple, trachea midline. No JVD or lymphadenopathy. CARDIOVASCULAR: Regular rate and rhythm without murmurs, gallops, or rubs. RESPIRATORY: Breath sounds equal bilaterally. No accessory muscle use. exp rhonchi GASTROINTESTINAL: Abdomen soft, non-tender, Abd distended MUSCULOSKELETAL: No cyanosis, or edema. BACK: Nontender without obvious deformity. No CVA tenderness. A/P Assessment and Plan Resp Failure, on vent COPD exac S/p robotic surgery Anxiety S/p Exp lap PLAN: Cont vent support, aerosol nebs Nebuliser rx qid and prn Abx per ID Sedation with Versed and Fentanyl Trach when Family agrees Monitor Robbie Keller MD Sep 15, 2016 16:15
[2016-09-15] MEDS: LORazepam 2 MG/ML VIAL IV PUSH PRN (16:28)
[2016-09-15] MEDS ORDERED: METOPROLOL TARTRATE 5 MG/5 ML VIAL IV PUSH ONE (18:00)
[2016-09-15] MEDS: PHENYTOIN SUSP 100 MG/4 ML CUP PO SCH (20:43)
[2016-09-15] MEDS ORDERED: CARVEDILOL 6.25 MG TAB PO SCH (21:00)
[2016-09-16] VITALS (21 sets, daily range): BP systolic 103–160; BP diastolic 66–91; PULSE 95–122; RESP 22–44; TEMP 98–100.2; O2SAT 95–100
[2016-09-16] MEDS: PIPERACIL-TAZO 2.25 GM PREMIX 50 ML IV SCH ×3 (01:25→12:16)
[2016-09-16] MEDS: SODIUM CHLORIDE 0.9% 10 ML VIAL IV FLUSH SCH ×4 (01:26→21:25)
[2016-09-16] MEDS: INSULIN ASPART SUPPLEMENTAL SCALE SQ SCH ×6 (04:00→20:00)
[2016-09-16] MEDS: RESP: ALBUTEROL 2.5 MG/3 ML NEB (SCH) INH ×5 (04:34→19:53)
[2016-09-16 04:41] LABS: AUTOMATED NEUTROPHIL # 15.3 TH/MM3 (1.8-7.7); BASOPHIL # 0.2 TH/MM3 (0-0.2); BASOPHIL % 0.9 % (0.0-2.0); EOSINOPHIL # 0.6 TH/MM3 (0-0.4); EOSINOPHIL % 2.9 % (0.0-4.0); LYMPH % 8.8 % (9.0-44.0); LYMPHOCYTE # 1.8 TH/MM3 (1.0-4.8); MEAN CELL VOLUME 84.9 FL (80.0-100.0); MEAN CORPUSCULAR HEMOGLOBIN 28.1 PG (27.0-34.0); MEAN CORPUSCULAR HGB CONC 33.1 % (32.0-36.0); NEUT % 76.4 % (16.0-70.0); PLATELET COUNT 472 TH/MM3 (150-450); RED BLOOD COUNT 2.82 MIL/MM3 (4.50-5.90); RED CELL DISTRIBUTION WIDTH 15.2 % (11.6-17.2); WHITE BLOOD COUNT 20.1 TH/MM3 (4.0-11.0)
[2016-09-16 04:42] LABS: HEMO FLAGS AUTO DIFF
[2016-09-16 05:17] LABS: ALKALINE PHOSPHATASE 469 U/L (45-117); ALT (GPT) 17 U/L (12-78); ANION GAP 9 MEQ/L (5-15); AST (GOT) 55 U/L (15-37); BLOOD UREA NITROGEN 41 MG/DL (7-18); CHLORIDE 101 MEQ/L (98-107); GLOMERULAR FILTRATION RATE 13 ML/MIN (>89); MAGNESIUM 2.2 MG/DL (1.5-2.5); SODIUM (NA) 139 MEQ/L (136-145); TOTAL BILIRUBIN ADULT 2.2 MG/DL (0.2-1.0)
[2016-09-16 05:31] LABS: POTASSIUM 4.8 MEQ/L (3.5-5.1)
[2016-09-16 05:41] LABS: BANDS 4 % (0-6); EOSINOPHILS 1 % (0-4); METAMYELOCYTES 1 % (0-1); MYELOCYTES 6 % (0-0); NEUTROPHIL # MANUAL DIFF 16.7 TH/MM3 (1.8-7.7); POLYS (SEG NEUTROPHILS) 70 % (16-70); PROMYELOCYTES 2 % (0-0); WBC DIFF SAMPLE 100
[2016-09-16 05:42] LABS: STOMATOCYTES 2+ (NORMAL)
[2016-09-16 05:43] LABS: PLATELET ESTIMATE SMEAR NORMAL (NORMAL); PLATELET MORPHOLOGY CLUMPED (NORMAL); SCAN/DIFF FINAL DIFF MANUAL
[2016-09-16] MEDS: cloNIDine HCL 0.1 MG TAB PO SCH ×3 (06:51→21:25)
[2016-09-16] MEDS: HEPARIN SODIUM - SQ 10,000 UNITS/ML VIAL SQ SCH ×2 (07:35→21:25)
[2016-09-16] MEDS: PANTOPRAZOLE SODIUM 40 MG VIAL IVP SCH (07:35)
[2016-09-16] MEDS: CALCIUM ACETATE 667 MG CAP PO SCH ×3 (07:35→18:04)
[2016-09-16] MEDS: MUPIROCIN 2% OINT 1 APPLIC/GM SYR EACH NARE SCH ×2 (07:36→21:00)
[2016-09-16] MEDS: SODIUM CHLORIDE 0.9% FLUSH 5 ML FLUSH IVF SCH ×2 (07:36→21:00)
[2016-09-16] MEDS: MICAFUNGIN INJ 100 MG in SODIUM CHLORIDE 0.9% INJ 100 ML IV SCH (07:37)
[2016-09-16] MEDS: CHLORHEXIDINE 0.12% (ORAL KIT) 15 ML CUP MT SCH ×2 (07:37→20:00)
[2016-09-16] MEDS: RESP: BUDESONIDE 0.5 MG/2 ML NEB NEB SCH ×2 (07:41→19:53)
[2016-09-16] MEDS: amLODIPine BESYLATE 5 MG TAB PO SCH ×3 (09:00→21:24)
[2016-09-16] MEDS ORDERED: ALBUMIN HUMAN 25% 25 GM/100 ML BAGP IV ONE (10:15)
--- NOTE | 2016-09-16 10:29 | HHI.CCPN ---
Subjective Remarks/Hospital Course 08/25: Patient is a 58-year-old male with past medical history significant COPD who, on 08/18/16, underwent Laparoscopic robotic extensive lysis of adhesions, low anterior resection and small bowel resection. Apparently he was brought in by Dr. Moffett for Diverticulitis. Patient has a history of hypertension, COPD, and continues to smoke one pack of cigarettes a day. Postoperatively patient became progressively short of breath. Pulmonary was consulted on 08/21/16 as the patient was becoming more hypoxemic requiring BiPAP. CT of the chest PE protocol did not show any pulmonary embolism. Patient was placed on breathing treatments and IV Solu-Medrol 40 mg every [address] Renteria. Today a.m. patient was on 100% nonrebreather. Patient was diagnosed with an anastomotic leak today and was taken back to the OR by Dr. Moffett. He underwent exploratory laparotomy, I&D and loop ileostomy today. Postop patient remained hypoxemic requiring 70% oxygen, and hence was left intubated and critical care medicine was consulted. Dr. Arce evaluated the patient in ICU. He remained hypoxemic, FiO2 70%. Chest x-ray shows bibasilar mild infiltrates. On sedation lightening patient became very hypertensive, not following commands probably secondary to residual NM blockade received while being transported to ICU. Patient on receiving vancomycin Levaquin and Flagyl per Dr. Moffett. Dr. Arce added cefepime to cover for Pseudomonas. Holding Solu-Medrol due to anastomotic leak. 08/26: Remains sedated, orally intubated on mechanical ventilation. Went into anuric renal failure yesterday which did not respond to fluid boluses and diuretics hence was started on hemodialysis after placement of right IJ Vas- Cath. Currently sedated, arousable, remains orally intubated on mechanical ventilation. Blood pressure borderline last evening following dialysis for which she was started on low-dose vasopressin 0.03 units per minute and Levophed which is currently at 1 jose per minute. Started on TPN last night following which he has been hyperglycemic. 08/27: Sedated, arousable, orally intubated on mechanical ventilation. Spiking fevers overnight. Off Levophed, transiently off vasopressin. Remains on TPN. 08/28: Remains sedated, arousable, orally intubated on mechanical ventilation. On low-dose vasopressin. TPN continues. Made about 500 cc of urine in the last 24 hours. 08/29: In sedated, arousable, orally intubated on mechanical ventilation. Remains on TPN. Dirty drainage from left-sided SERGEI drain noted overnight. Dr. Moffett obtaining CT abdomen pelvis with oral contrast and ID consulted. 08/30: CURRENT TEMPERATURE 99. Status post 4 L hemodialysis today. No current change in therapy. White blood cell count remained stable. Off vasopressors. Arousable to voice. Versed has been discontinued. We'll attempt CPAP trials again today. 08/31: MAXIMUM TEMPERATURE 100.4. Currently 100.1. Currently resting in bed in no acute distress. Continues with scant drainage from bilateral JPs. We'll attempt CPAP trial again today. Positive stool from ostomy bag 09/01: Tmax 99.8. Currently 99.3. Placement of the new right IJ vas catheter today. Plan for IR to possibly drain right lower quadrant fluid collection. Arousable and moves all 4 extremity spontaneously. 09/02: Currently afebrile. Noted placement of iron drain with accordion drain. Growing Pseudomonas. Lasted only 2 hours on CPAP trials today. 09/03: Tolerated SBT for only 30 mins and required PS 20. Not ready to extubate. 09/04: Tachypnea related to anxiety? or metabolic acidosis. Will check VBG. Not tolerating SBT. Anemia. Transfuse during HD. 09/05: Remains very tachypneic on SBTs. Unable to extubate. 09/06: Leukocytosis and bandemia. Acts like ongoing sepsis. 09/07: No significant changes. Afebrile. Tolerating TFs as recommended by CRS. Will transition from TPN to enteral feeds now. 09/08: Bandemia persists. Tolerating full TFs. D/c'd TPN. Glucose control acceptable. 09/09: Tolerating longer CPAP/PS trials. 09/10: Stronger respiratory effort. Try to extubate today. 09/11: Stable hemodynamics, marginal respiratory function. 09/11 update 1800 hrs: Patient developed sudden hyperventilation to 55-60/min, hypertensive urgency to 220/120s, unresponsive state, started versed 10 mg/hr after 10 mg iv. Load with cerebyx, get head CT, EEG in a.m. 09/12: BP and pulse rate control improved with sedation. Etiology unclear. Suspected intracranial process but CT head normal. Possibly seizures. EEG pending this morning. WBC with bandemia persists. 09/13: CURRENT TEMPERATURE 99. Heart rate and blood pressure control. Noted T changes last night noted a potassium 8.2. Noted hemodialysis catheter placed by overnight substation operator helper generation in right femoral vein and hemodialysis currently undergoing. Plan for drainage of epigastric fluid collection by IR today. 09/14: Currently afebrile. Status post prior drainage of epigastric fluid area. Currently 60 ccwhite pus accordian drain. Status post bronchoscopy yesterday. 09/15 - intubation day #22. Family waiting another 24 hours to consider tracheostomy. He is not able to be extubated. Currently undergoing hemodialysis. Likely dialysis dependent. Subjective 09/16: Tmax 100.2. Blood pressure slowly trending downward. He transfuse PRBCs and albumin bolus prior to hemodialysis today. Intubation day #23. Family currently agreeable to tracheostomy but I'm unable to perform until Sunday. Positive BM. Objective Vital Signs Date Time Temp Pulse Resp B/P Pulse Ox O2 Delivery O2 Flow Rate FiO2 09/16/16 08:00 100.2 106 22 130/77 100 09/16/16 08:00 40 Intake and Output 09/15/16 09/15/16 09/16/16 08:00 16:00 00:00 Intake Total 636 ml 802 ml 870 ml Output Total 927 ml 3188 ml 600 ml Balance -291 ml -2386 ml 270 ml Result Diagram: 09/16/16 0401 09/16/16 0401 Other Results Microbiology Date/Time Procedure Status Source Growth 09/13/16 17:20 Gram Stain - Final Resulted Bronchial Washings Right Mid Lobe 09/13/16 17:20 Bronchial Culture - Preliminary Resulted Pseudomonas Aeruginosa 09/13/16 17:20 Fungal Smear - Final Resulted Bronchial Washings Right Mid Lobe NO FUNGAL ELEMENTS SEEN. 09/13/16 17:20 Fungal Culture Resulted Bronchial Washings Right Mid Lobe Pending 09/13/16 17:20 Acid Fast Stain - Final Resulted Bronchial Washings Right Mid Lobe NO ACID FAST BACILLI SEEN 09/13/16 17:20 Mycobacterial Culture Resulted Bronchial Washings Right Mid Lobe Pending Imaging Last Impressions Chest X-Ray 09/15/16 0600 Signed Impressions: Service Date/Time: Thursday, September 15, 2016 05:16 - CONCLUSION: Unchanged bilateral pulmonary infiltrates. Evelio Hitchcock Jr., MD Abscess Drainage CT 09/13/16 0000 Signed Impressions: Service Date/Time: Tuesday, September 13, 2016 14:30 - CONCLUSION: Uncomplicated CT guided drainage. Carlo Cortes MD Head CT 09/11/16 0000 Signed Impressions: Service Date/Time: Sunday, September 11, 2016 18:41 - CONCLUSION: Normal examination for a patient of this age. Dave Easton MD Abdomen/Pelvis CT 09/11/16 0000 Signed Impressions: Service Date/Time: Monday, September 12, 2016 04:12 - CONCLUSION: 1. Small bowel dilatation has resolved. 2. Postsurgical changes are identified with increase in size of epigastric fluid collection, but decreased fluid within the mesentery and right paracolic region. 3. There is no evidence for enteric contrast media extravasation. 4. Pulmonary consolidation and effusions. Romel Kohli MD Retroperitoneal Abscess Drainage 09/01/16 0600 Signed Impressions: Service Date/Time: Thursday, September 01, 2016 13:05 - CONCLUSION: Uncomplicated CT guided drainage of a right lower quadrant fluid collection. Approximately 75 cc of fecal-like brown material was aspirated. The air and fluid collection may communicate with the inferior aspect of the midline wound on the anterior abdominal wall. Claude Carrasco MD Abdomen X-Ray 08/24/16 0000 Signed Impressions: Service Date/Time: August 07:44 - CONCLUSION: Gaseous distention of multiple bowel loops possible ileus. Jony Miller MD Enema w/Water Soluble 08/23/16 0000 Signed Impressions: Service Date/Time: Tuesday, August 23, 2016 10:12 - CONCLUSION: Anastomosis appears patent without extravasation. Aditya Rocha MD FACR CT Angiography 08/21/16 0000 Signed Impressions: Service Date/Time: Sunday, August 21, 2016 14:05 - CONCLUSION: 1. There is no evidence for central pulmonary emboli. 2. Minimal subcutaneous air as well as free intraperitoneal air. Aditya Rocha MD FACR Objective Remarks GENERAL: 56-year-old male, critically ill, currently orotracheally intubated SKIN: Warm. Dry. HEAD: Atraumatic. Normocephalic. ENT: Orotracheally intubated. No excoriations noted NECK: Trachea midline. Supple. CARDIOVASCULAR:, RR. S1, S2. No S4. No m/c/g/r. RESPIRATORY: Mechanical ventilation, scattered rhonchi, no wheezing. GASTROINTESTINAL: Abdomen non distended. Midline incision clean and intact. BS active. Ostomy pink with brown stool. 2 accordian drain, 1 [address] vac in place. MUSCULOSKELETAL: Extremities with Tr+ bilateral upper and lower extremity edema , well perfused. NEUROLOGICAL:Pupils equal round and reactive 2 mm bilaterally. Grimaces with suctioning. Date of Insertion: Aug 31, 2016 Date of Removal: Sep 12, 2016 Side: Right A/P Assessment and Plan NEURO/PSYCH: History of anxiety Acute toxic metabolic encephalopathymultifactorial Acetaminophen for fever Haldol 1 mg every 4 hours when necessary RASS 1-2 Ativan 0.5 mg every one hour when necessary agitation Morphine sulfate 3 milligrams IV every 3 hours when necessary pain -Daily sedation vacation, follow neuro status. -Head CT 09/11 no acute intracranial findings -EEG 09/12 revealed mild to moderate encephalopathy. No epileptiform activity. Currently on Celebrex witch to 300 mg liquid at night. Recheck level in a.m. was 2.6. Recheck tomorrow RESP: Acute hypoxemic respiratory failure COPD exacerbation Probable healthcare associated pneumonia -Continue ACV 22/600 0.75/8/50 Ventilator bundle -Albuterol nebs every 4 hours scheduled and when necessary duo nebs, Symbicort 2 puffs every 12 was discontinued while in ventilator. Continue Pulmicort 0.5/2 twice a day -Broad-spectrum antibiotics as below -Continue daily C Pap trials. Dr. Renteria/Pulmonary following Increase SBTs length as able. Will need tracheostomy. Intubation day #23 CV: Hypotension secondary to septic shock resolved History of hypertension -Received multiple fluid boluses on 08/25. IV fluids discontinued subsequently in view of anuria necessitating hemodialysis. Off all vasopressors -Attempt negative fluid balance with hemodialysis. Currently on clonidine 0.1 3 times a day, Norvasc 5 mg twice a day and Coreg 6.25 twice a day. Decreased Norvasc daily and Coreg 3.125 twice a day with holding parameters for all 3 blood pressure medications GI/ Nutrition: Anastomotic leak status post exploratory laparotomy, I&D, loop ileostomy 08/24/16 s/p Laparoscopic robotic extensive ANNA MAIRE, robotic LAR and small bowel resection Laparoscopic robotic ANNA MARIE, robotic LAR and small bowel resection with anastomotic leak History of diverticulitis -Status post exploratory laparotomy, I&D, loop ileostomy 08/24/16 -Postoperative management per Dr. Moffett. Broad-spectrum antibiotics as below. Left SERGEI drain 5 cc. Right SERGEI 25 cc. positive ostomy output CT abdomen pelvis with oral contrast 08/29 reveal small bowel ileus. Serous fluid collection likely postoperative changes. - On Reglan to improve GI motility -Started on TPN 08/25 at 65 cc an hour with lipids daily. This is been discontinued Resumed on Glucerna 1.5 goal 60 cc an hour. Protonix for GI prophylaxis Accordion drain to right lower quadrant 09/01 by IR. -5 cc. Right lower quadrant SERGEI 3 cc. LLQ SERGEI has been discontinued Vac-Pac medial 0 cc. Accordion drain to epigastric -5 cc looking white pus Renal/: Acute kidney injury History BPH Status post bilateral ureteral stents placed by Dr. Fraser 08/18 -Monitor renal function closely. Mg catheter. -IV fluids discontinued in view of anuric renal failure and hyperkalemia necessitating hemodialysis. Nephrology consulted and following. -Attempt maintaining even to slightly negative fluid balance if blood pressure permits. New right IJ hemodialysis catheter placed 09/01 -> D/C 09/13. New right femoral hemodialysis catheter placed 09/13 ID: Anastomotic leak Sepsis Probable HCAP -IV vancomycin, Flagyl and Levaquin per Dr. Moffett. Levaquin discontinued . Zosyn started 09/02. Flagyl and micafungin per ID added. Merrem added yesterday 09/15 Pertinent culture 09/13 - bronchial -Pseudomonas 09.13 - abdomen abscess -Pseudomonas/yeast 09/01: Abdominal wound - Pseudomonas, enterococcus, Iram 08/31 - line culture Pseudomonas/coag negative staph 08/31 - blood cultures 2 -no growth 08/31 - sputum - pending 08/29 - wound - Pseudomonas, group D enterococcus, C. albicans and yeast 08/25 blood cultures - no growth 08/25 sputum - Serratia/Klebsiella/Pseudomonas 08/24 - wound - no growth HEME: Leukocytosis Normocytic anemia Thrombocytosis -Monitor CBC, CMP, coags ENDO: -Sliding-scale insulin for glycemic control. 0 units sliding scale past 24 hours. Levemir 20 units twice a day currently on hold as nothing by mouth for drain placement yesterday. FEN: Hyperphosphatemia Stat hemodialysis today. Recheck potassium post dialysis Continue PhosLo 667 mg 3 times a day for hyperphosphatemia. Hemodialysis 1K bath today PROPH: -Bilateral lower extremity SCDs. Heparin subcutaneous for DVT prophylaxis currently on hold due to procedures plan today.. Protonix for GI prophylaxis LINES: -Left subclavian central line placed in the OR 08/24 - 08/31. Right subclavian central line placed 08/31 - 09/11 - RIJ dialysis catheter 08/25 -08/31. New right IJ hemodialysis catheter 09/01 - - Right femoral hemodialysis catheter 09/13 Critical Care: The total critical care time was 35 minutes. Time to perform other separately billable procedures was not included in the critical care time. Connor Lebron MD Sep 16, 2016 10:29
--- NOTE | 2016-09-16 11:48 | HHI.PR ---
Subjective Remarks POD#29 s/p robotic LAR/SBR/ANNA MARIE, POD#21 s/p ex lap, washout, diverting loop ileostomy NO significant change Objective Vital Signs Date Time Temp Pulse Resp B/P Pulse Ox O2 Delivery O2 Flow Rate FiO2 09/16/16 10:26 100 40 09/16/16 10:00 100 09/16/16 08:00 100.2 106 22 130/77 100 09/16/16 08:00 40 09/16/16 08:00 106 09/16/16 07:41 100 40 09/16/16 06:00 111 09/16/16 04:34 98 40 09/16/16 04:00 115 09/16/16 04:00 40 09/16/16 04:00 98.7 115 27 157/89 95 09/16/16 02:00 104 09/16/16 01:53 99 40 09/16/16 00:00 98 09/16/16 00:00 98.6 95 22 103/66 99 09/16/16 00:00 40 09/15/16 22:44 99 40 09/15/16 22:00 107 09/15/16 20:00 40 09/15/16 20:00 100.0 107 27 128/73 100 09/15/16 20:00 107 09/15/16 19:52 99 40 09/15/16 18:00 105 09/15/16 16:00 110 09/15/16 16:00 98.8 110 22 137/75 97 09/15/16 16:00 40 09/15/16 15:31 98 40 09/15/16 14:00 110 09/15/16 12:00 99.0 102 23 139/79 100 09/15/16 12:00 40 09/15/16 12:00 102 09/15/16 11:55 97 40 I/O 09/15/16 09/15/16 09/15/16 09/16/16 09/16/16 09/16/16 07:00 15:00 23:00 07:00 15:00 23:00 Intake Total 636 ml 802 ml 870 ml 740 ml Output Total 927 ml 3188 ml 600 ml 450 ml Balance -291 ml -2386 ml 270 ml 290 ml Intake Oral 0 ml 0 ml IV Total 244 ml 397 ml 400 ml 320 ml Tube Feeding 332 ml 345 ml 350 ml 360 ml Other 60 ml 60 ml 120 ml 60 ml Output Urine Total 0 ml 0 ml Stool Total 900 ml 475 ml 600 ml 450 ml Drainage Total 27 ml 13 ml 0 ml Hemodialysis 2700 ml Result Diagram: 09/16/1640009/16/16400 Objective Remarks Abdomen soft Wounds clean Accordians with minimal drainage Assessment and Plan Assessment and Plan CV - slight drop in BP RESP - awaiting tracheostomy KIDNEY - still anuric,continue HD FEN - TF's resumed, tolerating ID - WBC's slightly up 1 unit PRBC with HD Trach soon Elana Moffett MD Sep 16, 2016 11:48
[2016-09-16] MEDS: fentaNYL 2,500 MCG/NS 250 ML IV SCH (13:40)
[2016-09-16] MEDS: MIDAZOLAM 100 MG/ML INJ 100 ML IV SCH (13:40)
--- NOTE | 2016-09-16 13:43 | HHI.IDPN ---
Subjective Subjective Remarks ID COVERAGE for is a 56-year-old male, admitted to the hospital initially for surgery. He has chronic diverticulitis with extension to the small bowel. He underwent surgery August 19 and had laparoscopic, robotic extensive lysis of adhesions, low anterior resection, and small bowel resection. On August 24 he developed anastomotic leak, and underwent repeat surgery and had exploratory laparotomy, irrigation and diverging loop sigmoid colostomy. On September 02 he developed wound dehiscence in the lower midline incision, and it was felt that it had fascial dehiscence. Wound VAC was started at that time. More recently he was found to have a retroperitoneal abscess, and a percutaneous drain was placed on September 01. Patient has been treated for gram-negative pneumonia. The retroperitoneal abscess culture has grown Pseudomonas, enterococcus, and Iram glabrata. Patient has required ventilatory support. Patient also has developed renal failure, and has been undergoing hemodialysis. His WBC remains elevated. Notes reviewed Discussed with RN and . Patient on the vent. On sedation, opens eyes when stimulated. Blood pressure is good, and he is not on pressors He developed wound dehiscence and has a wound VAC in the lower abdomen His colostomy is working He has 1 SERGEI on the left lower quadrant with serous drainage Has a percutaneous drain that has purulent henry fluid Has minimal urine output, undergoes HD daily. Has a HD catheter in groin. WBC slightly higher Antibiotics Meropenem IV Zosyn IV Micafungin IV Lines HD cath site ok. Past Medical History 1. Diverticulitis. 2. COPD. 3. Hypertension. 4. Anxiety disorder. 5. BPH. 6. History of tonsillectomy. Allergies: Coded Allergies: No Known Allergies (Verified , 08/18/16) Objective . Vital Signs Date Time Temp Pulse Resp B/P Pulse Ox O2 Delivery O2 Flow Rate FiO2 09/16/16 13:38 98 40 09/16/16 12:00 106 09/16/16 10:26 100 40 09/16/16 10:00 100 09/16/16 08:00 100.2 106 22 130/77 100 09/16/16 08:00 40 09/16/16 08:00 106 09/16/16 07:41 100 40 09/16/16 06:00 111 09/16/16 04:34 98 40 09/16/16 04:00 115 09/16/16 04:00 40 09/16/16 04:00 98.7 115 27 157/89 95 09/16/16 02:00 104 09/16/16 01:53 99 40 09/16/16 00:00 98 09/16/16 00:00 98.6 95 22 103/66 99 09/16/16 00:00 40 09/15/16 22:44 99 40 09/15/16 22:00 107 09/15/16 20:00 40 09/15/16 20:00 100.0 107 27 128/73 100 09/15/16 20:00 107 09/15/16 19:52 99 40 09/15/16 18:00 105 09/15/16 16:00 110 09/15/16 16:00 98.8 110 22 137/75 97 09/15/16 16:00 40 09/15/16 15:31 98 40 09/15/16 14:00 110 09/15/16 09/15/16 09/16/16 15:00 23:00 07:00 Intake Total 802 ml 870 ml 740 ml Output Total 3188 ml 600 ml 450 ml Balance -2386 ml 270 ml 290 ml Intake Oral 0 ml 0 ml IV Total 397 ml 400 ml 320 ml Tube Feeding 345 ml 350 ml 360 ml Other 60 ml 120 ml 60 ml Output Urine Total 0 ml 0 ml Stool Total 475 ml 600 ml 450 ml Drainage Total 13 ml 0 ml Hemodialysis 2700 ml . Laboratory Tests Test 09/15/16 09/16/16 06:45 04:01 White Blood Count 16.1 TH/MM3 20.1 TH/MM3 Red Blood Count 2.83 MIL/MM3 2.82 MIL/MM3 Hemoglobin 7.9 GM/DL 7.9 GM/DL Hematocrit 24.0 % 24.0 % Mean Corpuscular Volume 84.9 FL 84.9 FL Mean Corpuscular Hemoglobin 27.8 PG 28.1 PG Mean Corpuscular Hemoglobin 32.7 % 33.1 % Concent Red Cell Distribution Width 15.2 % 15.2 % Platelet Count 442 TH/MM3 472 TH/MM3 Mean Platelet Volume 8.0 FL 7.9 FL Neutrophils (%) (Auto) 76.8 % 76.4 % Lymphocytes (%) (Auto) 7.9 % 8.8 % Monocytes (%) (Auto) 11.5 % 11.0 % Eosinophils (%) (Auto) 2.8 % 2.9 % Basophils (%) (Auto) 1.0 % 0.9 % Neutrophils # (Auto) 12.3 TH/MM3 15.3 TH/MM3 Lymphocytes # (Auto) 1.3 TH/MM3 1.8 TH/MM3 Monocytes # (Auto) 1.9 TH/MM3 2.2 TH/MM3 Eosinophils # (Auto) 0.5 TH/MM3 0.6 TH/MM3 Basophils # (Auto) 0.2 TH/MM3 0.2 TH/MM3 CBC Comment AUTO DIFF AUTO DIFF Differential Total Cells 100 100 Counted Neutrophils % (Manual) 67 % 70 % Band Neutrophils % 5 % 4 % Lymphocytes % 9 % 8 % Monocytes % 12 % 8 % Eosinophils % 1 % 1 % Neutrophils # (Manual) 12.6 TH/MM3 16.7 TH/MM3 Metamyelocytes 4 % 1 % Myelocytes 1 % 6 % Promyelocytes 1 % 2 % Differential Comment FINAL DIFF FINAL DIFF MANUAL MANUAL Platelet Estimate NORMAL NORMAL Platelet Morphology Comment NORMAL CLUMPED Stomatocytes 1+ 2+ Laboratory Tests Test 09/15/16 09/16/16 06:45 04:01 Sodium Level 140 MEQ/L 139 MEQ/L Potassium Level 4.4 MEQ/L 4.8 MEQ/L Chloride Level 99 MEQ/L 101 MEQ/L Carbon Dioxide Level 28.4 MEQ/L 29.0 MEQ/L Anion Gap 13 MEQ/L 9 MEQ/L Blood Urea Nitrogen 53 MG/DL 41 MG/DL Creatinine 5.41 MG/DL 4.57 MG/DL Estimat Glomerular Filtration 11 ML/MIN 13 ML/MIN Rate Random Glucose 96 MG/DL 113 MG/DL Calcium Level 8.9 MG/DL 9.3 MG/DL Phosphorus Level 6.1 MG/DL 4.3 MG/DL Magnesium Level 2.2 MG/DL 2.2 MG/DL Total Bilirubin 2.5 MG/DL 2.2 MG/DL Direct Bilirubin 1.9 MG/DL Indirect Bilirubin 0.6 MG/DL Aspartate Amino Transf 42 U/L 55 U/L (AST/SGOT) Alanine Aminotransferase 15 U/L 17 U/L (ALT/SGPT) Alkaline Phosphatase 391 U/L 469 U/L Total Creatine Kinase 13 U/L Total Protein 7.7 GM/DL 8.3 GM/DL Albumin 2.0 GM/DL 2.3 GM/DL Microbiology Date/Time Procedure Status Source Growth 09/13/16 15:03 Gram Stain - Final Resulted Abscess Abdomen 09/13/16 15:03 Wound Culture - Preliminary Resulted Pseudomonas Species Yeast Species 09/13/16 17:20 Gram Stain - Final Complete Bronchial Washings Right Mid Lobe 09/13/16 17:20 Bronchial Culture - Final Complete Pseudomonas Aeruginosa 09/13/16 17:20 Acid Fast Stain - Final Resulted Bronchial Washings Right Mid Lobe NO ACID FAST BACILLI SEEN 09/13/16 17:20 Mycobacterial Culture Resulted Bronchial Washings Right Mid Lobe Pending 09/13/16 17:20 Fungal Smear - Final Resulted Bronchial Washings Right Mid Lobe NO FUNGAL ELEMENTS SEEN. 09/13/16 17:20 Fungal Culture Resulted Bronchial Washings Right Mid Lobe Pending Imaging Chest X-Ray 09/10/16 0000 Signed Impressions: Service Date/Time: Saturday, September 10, 2016 04:09 - CONCLUSION: 1. Slight improvement of right basilar airspace disease since September 03. Support apparatus unchanged. Miki Banerjee MD Chest X-Ray 09/03/16 0600 Signed Impressions: Service Date/Time: Saturday, September 03, 2016 04:03 - CONCLUSION: Stable left lower lobe consolidation and right lower lung infiltrates. Evelio Boyd MD Retroperitoneal Abscess Drainage 09/01/16 0600 Signed Impressions: Service Date/Time: Thursday, September 01, 2016 13:05 - CONCLUSION: Uncomplicated CT guided drainage of a right lower quadrant fluid collection. Approximately 75 cc of fecal-like brown material was aspirated. The air and fluid collection may communicate with the inferior aspect of the midline wound on the anterior abdominal wall. Claude Carrasco MD Abdomen/Pelvis CT 08/29/16 0000 Signed Impressions: Service Date/Time: Monday, August 29, 2016 17:12 - CONCLUSION: Post surgical changes following partial colon resection. Persistent pockets of fluid. Largest is located in the pelvis and contains an air-fluid level. Abscess formation cannot be excluded. Small bowel ileus Bibasilar airspace disease and pleural effusions Aakash Iqbal MD Abdomen X-Ray 08/24/16 0000 Signed Impressions: Service Date/Time: August 07:44 - CONCLUSION: Gaseous distention of multiple bowel loops possible ileus. Jony Miller MD Enema w/Water Soluble 08/23/16 0000 Signed Impressions: Service Date/Time: Tuesday, August 23, 2016 10:12 - CONCLUSION: Anastomosis appears patent without extravasation. Aditya Rocha MD FACR CT Angiography 08/21/16 0000 Signed Impressions: Service Date/Time: Sunday, August 21, 2016 14:05 - CONCLUSION: 1. There is no evidence for central pulmonary emboli. 2. Minimal subcutaneous air as well as free intraperitoneal air. Aditya Rocha MD FACR Physical Exam GENERAL: On sedation, but opens eyes, NAD. On the vent SKIN: Warm, no rash HEENT: Lewis conjunctivae, no scleral icterus. He is orally intubated. NECK: No adenopathy or swelling. LUNGS: Coarse breath sounds bilaterally, decreased at the bases. HEART: Regular rate and rhythm. No audible murmurs, rubs or gallops. ABDOMEN: Distended. Has midline incision, with wound vac at lower portion, drainage from incision less, no erythema noted. Colostomy is working. 1 SERGEI with serous drainage. Percutaneous drainage with purulent fluid EXTREMITIES: No clubbing or cyanosis. Edema improving. Well-perfused NEUROLOGIC: Awake, seems to be focusing LINE: No evidence of infection Assessment & Plan Remarks IMPRESSION Sepsis, had initially anastomotic leak, now with retroperitoneal abscess, and has a drain in place - C/S polymicrobial, PSAE. Enterococcus and Iram PSAE PNA Respiratory failure - doing CPAP trials Previously has PSAE, Kleb and Serratia PNA Acute renal failure, likely multifactorial, sepsis Leukocytosis, persistent but lower ? Drug fever ? Zosyn IV RECOMMENDATIONS DC Zosyn IV - should cover PSAE and Enterococcus. Follow temp curve if continues to spike fever, chao culture and CT A/P. Continue Meropenem IV. Continue Micafungin IV for antifungal (had C glabrata and C albicans) Follow CBC Monitor progress Monitor abdominal incision D/W RN D.w : about HD cath in groin. Difficult to place lines in neck. Keep HD cath for now unless new bacteremia. Eugenie Quarles MD Sep 16, 2016 13:43
[2016-09-16 15:50] LABS: C. DIFF EPI 027 PRESUMPTIVE NEGATIVE (NEGATIVE); C. DIFF TOXIN PCR NEGATIVE (NEGATIVE)
--- NOTE | 2016-09-16 16:04 | HHI.NPPN ---
Subjective General Problems: Edema Renal Failure: Acute Review of Systems General General Remarks unable to evaluate Objective Data Data 09/15/16 09/16/16 19:00 07:00 Intake Total 802 ml 1610 ml Output Total 3188 ml 1050 ml Balance -2386 ml 560 ml Intake Oral 0 ml IV Total 397 ml 720 ml Tube Feeding 345 ml 710 ml Other 60 ml 180 ml Output Urine Total 0 ml Stool Total 475 ml 1050 ml Drainage Total 13 ml 0 ml Hemodialysis 2700 ml Vital Signs Date Time Temp Pulse Resp B/P Pulse Ox O2 Delivery O2 Flow Rate FiO2 09/16/16 15:30 98.0 09/16/16 15:00 98.2 121 25 153/83 96 09/16/16 14:00 106 09/16/16 13:38 98 40 09/16/16 12:00 106 09/16/16 12:00 99.1 112 22 160/91 99 09/16/16 12:00 40 09/16/16 10:26 100 40 09/16/16 10:00 100 09/16/16 08:00 100.2 106 22 130/77 100 09/16/16 08:00 40 09/16/16 08:00 106 09/16/16 07:41 100 40 09/16/16 06:00 111 09/16/16 04:34 98 40 09/16/16 04:00 115 09/16/16 04:00 40 09/16/16 04:00 98.7 115 27 157/89 95 09/16/16 02:00 104 09/16/16 01:53 99 40 09/16/16 00:00 98 09/16/16 00:00 98.6 95 22 103/66 99 09/16/16 00:00 40 09/15/16 22:44 99 40 09/15/16 22:00 107 09/15/16 20:00 40 09/15/16 20:00 100.0 107 27 128/73 100 09/15/16 20:00 107 09/15/16 19:52 99 40 09/15/16 18:00 105 -: 09/16/16 0401 09/16/16 0401 Tubes & Lines: Vas-Cath Tubes & Lines Comment TLC, NG tube, SERGEI drain RLQ Drip Comment fentanyl, propofol , versed Physical Exam General Appearance: No Acute Distress Throat Throat Exam: Oral Mucosa Moncure & Moist Pulmonary Resp Exam: Breath Sounds Equal, No Distress, Crackles, Sputum, Diminished Breath Sounds Cardiology CV Exam: Regular, Normal Sinus Rhythm Gastrointestinal/Abdomen GI Exam: Distended Musculoskeletal MS Exam: Joints Intact, Normal Tone Integumentary Skin Exam: Warm, Dry Extremeties Extremities Exam: No Edema, Pedal Pulses Palpable Neurologic Neuro Exam: Obtunded, Unresponsive, Sedated VTE Prophylaxis Device: SCDs Assessment/Plan Discussed Condition With: Relative Assessment Summary: VIRIDIANA/Acute Renal Failure, Acute Tubular Necrosis, Fluid/ Volume Overload Problem List: (1) Acute renal failure Plan: He has developed ATN due to sepsis. Daily HD, seen during dialysis today on a 2K, , goal 4L He will be dialyzed daily, with possible day off on Sunday. Developed life threatening hyperkalemia with EKG changes this week, monitor for recurrence oligoanuric, monitor for changes Avoid nephrotoxic agents. Avoid IVF specifically LR. On Calcium acetate for hyperphosphatemia. (2) Diverticulitis Plan: with sepsis s/p colon resection with complications surgery following. multiple positive cultures of wound, catheter tip, and sputum ID following, managing antibiotics. He is on meropenem and Zosyn. s/p bronchoscopy on 09/13. Problem Qualifiers (1) Acute renal failure: Qualified Code: N17.0 - Acute renal failure with tubular necrosis Km Maya MD Sep 16, 2016 16:04
[2016-09-16] MEDS: MEROPENEM INJ 500 MG in SODIUM CHLORIDE 0.9% INJ 100 ML IV SCH (16:29)
[2016-09-16] MEDS: HEPARIN SODIUM - IV 10,000 UNITS/10 ML VIAL PRN (17:06)
[2016-09-16] MEDS: GENTAMICIN SULFATE (DIALYSIS USE ONLY) 20 MG/2 ML VIAL IV PRN (17:06)
[2016-09-16] MEDS: LORazepam 2 MG/ML VIAL IV PUSH PRN (18:04)
[2016-09-16] MEDS: LABETALOL HCL 100 MG/20 ML VIAL IV PUSH PRN (18:43)
[2016-09-16] MEDS: PHENYTOIN SUSP 100 MG/4 ML CUP PO SCH (21:24)
[2016-09-16] MEDS: CARVEDILOL 3.125 MG TAB PO SCH (21:24)
[2016-09-17] VITALS (19 sets, daily range): BP systolic 75–150; BP diastolic 49–89; PULSE 88–126; RESP 22–28; TEMP 99–101.5; O2SAT 95–100
[2016-09-17] MEDS: RESP: ALBUTEROL 2.5 MG/3 ML NEB (SCH) INH ×7 (00:12→23:32)
[2016-09-17] MEDS: INSULIN ASPART SUPPLEMENTAL SCALE SQ SCH ×4 (04:00→11:36)
--- NOTE | 2016-09-17 06:01 | RADRPT ---
EXAM DATE/TIME: 09/17/2016 04:43 [facility] COMPARISON: CHEST SINGLE AP, September 15, 2016, 5:16. INDICATIONS : Shortness of breath, possible pulmonary disease. MEDICAL HISTORY : Chronic obstructive pulmonary disease. SURGICAL HISTORY : None. ENCOUNTER: Subsequent ACUITY: 3 weeks PAIN SCORE: Non-responsive. LOCATION: Bilateral chest FINDINGS: No significant change from the prior exam. A patchy peripheral infiltrate is seen involving the right lung and left lung base. These are stable. No effusions. Heart is normal in size. Nasogastric tube t ip is coiled within the fundus. Endotracheal tube is not well-seen due to overlapping wires. CONCLUSION: Unchanged bilateral filtrates. Evelio Hitchcock Jr., MD on September 17, 2016 at 5:58 Board Certified Radiologist. This report was verified electronically.
[2016-09-17 06:09] LABS: BICARBONATE 27.7 MEQ/L (21.0-32.0); MAGNESIUM 2.2 MG/DL (1.5-2.5); POTASSIUM 4.7 MEQ/L (3.5-5.1)
[2016-09-17] MEDS: cloNIDine HCL 0.1 MG TAB PO SCH ×3 (06:21→22:16)
[2016-09-17] MEDS: MORPHINE SULFATE 4 MG/ML INJ IV PRN ×3 (06:31→22:15)
[2016-09-17] MEDS: RESP: ALBUTEROL 2.5 MG/IPRATROPIUM 0.5 MG NEB (PRN) NEB ×2 (07:55→14:46)
[2016-09-17] MEDS: RESP: BUDESONIDE 0.5 MG/2 ML NEB NEB SCH ×2 (08:00→19:12)
[2016-09-17] MEDS: CHLORHEXIDINE 0.12% (ORAL KIT) 15 ML CUP MT SCH ×2 (08:00→22:14)
[2016-09-17 08:15] LABS: AUTOMATED NEUTROPHIL # 21.4 TH/MM3 (1.8-7.7); BASOPHIL # 0.2 TH/MM3 (0-0.2); BASOPHIL % 0.8 % (0.0-2.0); EOSINOPHIL # 0.8 TH/MM3 (0-0.4); HEMATOCRIT 30.4 % (39.0-51.0); LYMPH % 9.5 % (9.0-44.0); LYMPHOCYTE # 2.7 TH/MM3 (1.0-4.8); MEAN CORPUSCULAR HEMOGLOBIN 28.1 PG (27.0-34.0); MEAN CORPUSCULAR HGB CONC 32.7 % (32.0-36.0); NEUT % 74.7 % (16.0-70.0); PLATELET COUNT 427 TH/MM3 (150-450); RED BLOOD COUNT 3.53 MIL/MM3 (4.50-5.90); RED CELL DISTRIBUTION WIDTH 15.3 % (11.6-17.2); WHITE BLOOD COUNT 28.6 TH/MM3 (4.0-11.0)
[2016-09-17] MEDS: PANTOPRAZOLE SODIUM 40 MG VIAL IVP SCH (08:41)
[2016-09-17] MEDS: CARVEDILOL 3.125 MG TAB PO SCH ×2 (08:42→22:14)
[2016-09-17] MEDS: CALCIUM ACETATE 667 MG CAP PO SCH ×3 (08:42→17:50)
[2016-09-17] MEDS: HEPARIN SODIUM - SQ 10,000 UNITS/ML VIAL SQ SCH (08:42)
[2016-09-17] MEDS: MIDAZOLAM 100 MG/ML INJ 100 ML IV SCH (08:43)
[2016-09-17] MEDS: MUPIROCIN 2% OINT 1 APPLIC/GM SYR EACH NARE SCH ×2 (08:43→22:16)
[2016-09-17] MEDS: MICAFUNGIN INJ 100 MG in SODIUM CHLORIDE 0.9% INJ 100 ML IV SCH (08:43)
[2016-09-17] MEDS: fentaNYL 2,500 MCG/NS 250 ML IV SCH (08:43)
[2016-09-17] MEDS: SODIUM CHLORIDE 0.9% FLUSH 5 ML FLUSH IVF SCH ×2 (08:44→21:00)
[2016-09-17] MEDS: amLODIPine BESYLATE 5 MG TAB PO SCH ×2 (08:46→22:16)
[2016-09-17] MEDS: SODIUM CHLORIDE 0.9% 10 ML VIAL IV FLUSH SCH ×2 (08:46→17:41)
[2016-09-17 09:01] LABS: HEMO FLAGS AUTO DIFF
--- NOTE | 2016-09-17 12:03 | HHI.CCPN ---
Subjective Remarks/Hospital Course 08/25: Patient is a 58-year-old male with past medical history significant COPD who, on 08/18/16, underwent Laparoscopic robotic extensive lysis of adhesions, low anterior resection and small bowel resection. Apparently he was brought in by Dr. Moffett for Diverticulitis. Patient has a history of hypertension, COPD, and continues to smoke one pack of cigarettes a day. Postoperatively patient became progressively short of breath. Pulmonary was consulted on 08/21/16 as the patient was becoming more hypoxemic requiring BiPAP. CT of the chest PE protocol did not show any pulmonary embolism. Patient was placed on breathing treatments and IV Solu-Medrol 40 mg every [address] Renteria. Today a.m. patient was on 100% nonrebreather. Patient was diagnosed with an anastomotic leak today and was taken back to the OR by Dr. Moffett. He underwent exploratory laparotomy, I&D and loop ileostomy today. Postop patient remained hypoxemic requiring 70% oxygen, and hence was left intubated and critical care medicine was consulted. Dr. Arce evaluated the patient in ICU. He remained hypoxemic, FiO2 70%. Chest x-ray shows bibasilar mild infiltrates. On sedation lightening patient became very hypertensive, not following commands probably secondary to residual NM blockade received while being transported to ICU. Patient on receiving vancomycin Levaquin and Flagyl per Dr. Moffett. Dr. Arce added cefepime to cover for Pseudomonas. Holding Solu-Medrol due to anastomotic leak. 08/26: Remains sedated, orally intubated on mechanical ventilation. Went into anuric renal failure yesterday which did not respond to fluid boluses and diuretics hence was started on hemodialysis after placement of right IJ Vas- Cath. Currently sedated, arousable, remains orally intubated on mechanical ventilation. Blood pressure borderline last evening following dialysis for which she was started on low-dose vasopressin 0.03 units per minute and Levophed which is currently at 1 jose per minute. Started on TPN last night following which he has been hyperglycemic. 08/27: Sedated, arousable, orally intubated on mechanical ventilation. Spiking fevers overnight. Off Levophed, transiently off vasopressin. Remains on TPN. 08/28: Remains sedated, arousable, orally intubated on mechanical ventilation. On low-dose vasopressin. TPN continues. Made about 500 cc of urine in the last 24 hours. 08/29: In sedated, arousable, orally intubated on mechanical ventilation. Remains on TPN. Dirty drainage from left-sided SERGEI drain noted overnight. Dr. Moffett obtaining CT abdomen pelvis with oral contrast and ID consulted. 08/30: CURRENT TEMPERATURE 99. Status post 4 L hemodialysis today. No current change in therapy. White blood cell count remained stable. Off vasopressors. Arousable to voice. Versed has been discontinued. We'll attempt CPAP trials again today. 08/31: MAXIMUM TEMPERATURE 100.4. Currently 100.1. Currently resting in bed in no acute distress. Continues with scant drainage from bilateral JPs. We'll attempt CPAP trial again today. Positive stool from ostomy bag 09/01: Tmax 99.8. Currently 99.3. Placement of the new right IJ vas catheter today. Plan for IR to possibly drain right lower quadrant fluid collection. Arousable and moves all 4 extremity spontaneously. 09/02: Currently afebrile. Noted placement of iron drain with accordion drain. Growing Pseudomonas. Lasted only 2 hours on CPAP trials today. 09/03: Tolerated SBT for only 30 mins and required PS 20. Not ready to extubate. 09/04: Tachypnea related to anxiety? or metabolic acidosis. Will check VBG. Not tolerating SBT. Anemia. Transfuse during HD. 09/05: Remains very tachypneic on SBTs. Unable to extubate. 09/06: Leukocytosis and bandemia. Acts like ongoing sepsis. 09/07: No significant changes. Afebrile. Tolerating TFs as recommended by CRS. Will transition from TPN to enteral feeds now. 09/08: Bandemia persists. Tolerating full TFs. D/c'd TPN. Glucose control acceptable. 09/09: Tolerating longer CPAP/PS trials. 09/10: Stronger respiratory effort. Try to extubate today. 09/11: Stable hemodynamics, marginal respiratory function. 09/11 update 1800 hrs: Patient developed sudden hyperventilation to 55-60/min, hypertensive urgency to 220/120s, unresponsive state, started versed 10 mg/hr after 10 mg iv. Load with cerebyx, get head CT, EEG in a.m. 09/12: BP and pulse rate control improved with sedation. Etiology unclear. Suspected intracranial process but CT head normal. Possibly seizures. EEG pending this morning. WBC with bandemia persists. 09/13: CURRENT TEMPERATURE 99. Heart rate and blood pressure control. Noted T changes last night noted a potassium 8.2. Noted hemodialysis catheter placed by overnight senior physical therapist in right femoral vein and hemodialysis currently undergoing. Plan for drainage of epigastric fluid collection by IR today. 09/14: Currently afebrile. Status post prior drainage of epigastric fluid area. Currently 60 ccwhite pus accordian drain. Status post bronchoscopy yesterday. 09/15 - intubation day #22. Family waiting another 24 hours to consider tracheostomy. He is not able to be extubated. Currently undergoing hemodialysis. Likely dialysis dependent. 09/16: Tmax 100.2. Blood pressure slowly trending downward. He transfuse PRBCs and albumin bolus prior to hemodialysis today. Intubation day #23. Family currently agreeable to tracheostomy but I'm unable to perform until Sunday. Positive BM. Subjective 09/17: Tmax 101. Intubation day #24. Tolerating tube feeding. Currently tachycardic currently on Versed and fentanyl drips. Objective Vital Signs Date Time Temp Pulse Resp B/P Pulse Ox O2 Delivery O2 Flow Rate FiO2 09/17/16 10:06 95 40 09/17/16 10:00 120 09/17/16 08:00 101.0 24 148/87 Intake and Output 09/16/16 09/16/16 09/17/16 08:00 16:00 00:00 Intake Total 740 ml 832 ml 930 ml Output Total 450 ml 525 ml 4300 ml Balance 290 ml 307 ml -3370 ml Result Diagram: 09/17/16 0727 09/17/16 0427 Other Results Microbiology Date/Time Procedure Status Source Growth 09/17/16 11:15 Aerobic Blood Culture Received Blood Peripheral Pending 09/17/16 11:15 Anaerobic Blood Culture Received Blood Peripheral Pending 09/13/16 17:20 Gram Stain - Final Complete Bronchial Washings Right Mid Lobe 09/13/16 17:20 Bronchial Culture - Final Complete Pseudomonas Aeruginosa 09/13/16 17:20 Fungal Smear - Final Resulted Bronchial Washings Right Mid Lobe NO FUNGAL ELEMENTS SEEN. 09/13/16 17:20 Fungal Culture Resulted Bronchial Washings Right Mid Lobe Pending 09/13/16 17:20 Acid Fast Stain - Final Resulted Bronchial Washings Right Mid Lobe NO ACID FAST BACILLI SEEN 09/13/16 17:20 Mycobacterial Culture Resulted Bronchial Washings Right Mid Lobe Pending Imaging Last Impressions Chest X-Ray 09/17/16599 Signed Impressions: Service Date/Time: Saturday, September 17, 2016 04:43 - CONCLUSION: Unchanged bilateral filtrates. Evelio Hitchcock Jr., MD Abscess Drainage CT 09/13/16 0000 Signed Impressions: Service Date/Time: Tuesday, September 13, 2016 14:30 - CONCLUSION: Uncomplicated CT guided drainage. Carlo Cortes MD Head CT 09/11/16 Signed Impressions: Service Date/Time: Sunday, September 11, 2016 18:41 - CONCLUSION: Normal examination for a patient of this age. Dave Easton MD Abdomen/Pelvis CT 09/11/16 Signed Impressions: Service Date/Time: Monday, September 12, 2016 04:12 - CONCLUSION: 1. Small bowel dilatation has resolved. 2. Postsurgical changes are identified with increase in size of epigastric fluid collection, but decreased fluid within the mesentery and right paracolic region. 3. There is no evidence for enteric contrast media extravasation. 4. Pulmonary consolidation and effusions. Romel Kohli MD Retroperitoneal Abscess Drainage 09/01/16599 Signed Impressions: Service Date/Time: Thursday, September 01, 2016 13:05 - CONCLUSION: Uncomplicated CT guided drainage of a right lower quadrant fluid collection. Approximately 75 cc of fecal-like brown material was aspirated. The air and fluid collection may communicate with the inferior aspect of the midline wound on the anterior abdominal wall. Claude Carrasco MD Abdomen X-Ray 08/24/16 Signed Impressions: Service Date/Time: August 07:44 - CONCLUSION: Gaseous distention of multiple bowel loops possible ileus. Jony Miller MD Enema w/Water Soluble 08/23/16 Signed Impressions: Service Date/Time: Tuesday, August 23, 2016 10:12 - CONCLUSION: Anastomosis appears patent without extravasation. Aditya Rocha MD FACR CT Angiography 08/21/16 0000 Signed Impressions: Service Date/Time: Sunday, August 21, 2016 14:05 - CONCLUSION: 1. There is no evidence for central pulmonary emboli. 2. Minimal subcutaneous air as well as free intraperitoneal air. Aditya Rocha MD FACR Objective Remarks GENERAL: 56-year-old male, critically ill, currently orotracheally intubated SKIN: Warm. Dry. No rash HEAD: Atraumatic. Normocephalic. ENT: Orotracheally intubated. No excoriations noted NECK: Trachea midline. Supple. CARDIOVASCULAR: Tachy, IR. S1, S2. No S4. No m/c/g/r. RESPIRATORY: Mechanical ventilation, scattered rhonchi, no wheezing. GASTROINTESTINAL: Abdomen non distended. Midline incision clean and intact. BS active. Ostomy pink with brown stool. 2 accordion drain, 1 [address] vac in place. MUSCULOSKELETAL: Extremities with Tr+ bilateral upper and lower extremity edema , well perfused. Right femoral dialysis catheter clean dry and intact with some slight bruising NEUROLOGICAL:Pupils equal round and reactive 2 mm bilaterally. Grimaces with suctioning. Date of Insertion: Aug 31, 2016 Date of Removal: Sep 12, 2016 Side: Right A/P Assessment and Plan NEURO/PSYCH: History of anxiety Acute toxic metabolic encephalopathymultifactorial Currently in Versed drip at 6 fentanyl drip at 10 mg an hour for sedation/ analgesia Daily sedation vacation Acetaminophen for fever Haldol 1 mg every 4 hours when necessary RASS 1-2 Ativan 0.5 mg every one hour when necessary agitation Morphine sulfate 3 milligrams IV every 3 hours when necessary pain -Daily sedation vacation, follow neuro status. -Head CT 09/11 no acute intracranial findings -EEG 09/12 revealed mild to moderate encephalopathy. No epileptiform activity. Currently on Cerebyx 300 mg liquid at night. Recheck level in a.m. was 1.7 Recheck tomorrow after bolus given today RESP: Acute hypoxemic respiratory failure COPD exacerbation Probable healthcare associated pneumonia -Continue ACV 22/600 0.75/8/50 Ventilator bundle -Albuterol nebs every 4 hours scheduled and when necessary duo nebs, Symbicort 2 puffs every 12 was discontinued while in ventilator. Continue Pulmicort 0.5/2 twice a day -Broad-spectrum antibiotics as below -Continue daily C Pap trials. Dr. Renteria/Pulmonary following Increase SBTs length as able. Will need tracheostomy. Intubation day #23 CV: Hypotension secondary to septic shock resolved History of hypertension -Received multiple fluid boluses on 08/25. IV fluids discontinued subsequently in view of anuria necessitating hemodialysis. Off all vasopressors -Attempt negative fluid balance with hemodialysis. Currently on clonidine 0.1 3 times a day, Norvasc 5 mg twice a day and Coreg 6.25 twice a day. Decreased Norvasc daily and Coreg 3.125 twice a day with holding parameters for all 3 blood pressure medications GI/ Nutrition: Anastomotic leak status post exploratory laparotomy, I&D, loop ileostomy 08/24/16 s/p Laparoscopic robotic extensive ANNA MARIE, robotic LAR and small bowel resection Laparoscopic robotic ANNA MARIE, robotic LAR and small bowel resection with anastomotic leak History of diverticulitis -Status post exploratory laparotomy, I&D, loop ileostomy 08/24/16 -Postoperative management per Dr. Moffett. Broad-spectrum antibiotics as below. Left SERGEI drain 5 cc. Right SERGEI 25 cc. positive ostomy output CT abdomen pelvis with oral contrast 08/29 reveal small bowel ileus. Serous fluid collection likely postoperative changes. - On Reglan to improve GI motility -Started on TPN 08/25 at 65 cc an hour with lipids daily. This is been discontinued Resumed on Glucerna 1.5 goal 60 cc an hour. Protonix for GI prophylaxis Accordion drain to right lower quadrant 09/01 by IR. -5 cc. Right lower quadrant SERGEI 3 cc. LLQ SERGEI has been discontinued Vac-Pac medial 0 cc. Accordion drain to epigastric -5 cc looking white pus Renal/: Acute kidney injury History BPH Status post bilateral ureteral stents placed by Dr. Fraser 08/18 -Monitor renal function closely. Mg catheter. -IV fluids discontinued in view of anuric renal failure and hyperkalemia necessitating hemodialysis. Nephrology consulted and following. -Attempt maintaining even to slightly negative fluid balance if blood pressure permits. New right IJ hemodialysis catheter placed 09/01 -> D/C 09/13. New right femoral hemodialysis catheter placed 09/13 ID: Anastomotic leak Sepsis Probable HCAP -IV vancomycin, Flagyl and Levaquin per Dr. Moffett. Levaquin discontinued . Zosyn started 09/02- 09/16. Flagyl and micafungin per ID added. Merrem added 09/15 Pertinent culture 09/13 - bronchial -Pseudomonas 09.13 - abdomen abscess -Pseudomonas/yeast 09/01: Abdominal wound - Pseudomonas, enterococcus, Iram 08/31 - line culture Pseudomonas/coag negative staph 08/31 - blood cultures 2 -no growth 08/31 - sputum - pending 08/29 - wound - Pseudomonas, group D enterococcus, C. albicans and yeast 08/25 blood cultures - no growth 08/25 sputum - Serratia/Klebsiella/Pseudomonas 08/24 - wound - no growth HEME: Leukocytosis Normocytic anemia Thrombocytosis -Monitor CBC, CMP, coags ENDO: -Sliding-scale insulin for glycemic control. 0 units sliding scale past 24 hours. Levemir 20 units twice a day currently on hold as nothing by mouth for drain placement yesterday. FEN: Hyperphosphatemia Stat hemodialysis today. Recheck potassium post dialysis Continue PhosLo 667 mg 3 times a day for hyperphosphatemia. Hemodialysis 1K bath today PROPH: -Bilateral lower extremity SCDs. Heparin subcutaneous for DVT prophylaxis.. Protonix for GI prophylaxis LINES: -Left subclavian central line placed in the OR 08/24 - 08/31. Right subclavian central line placed 08/31 - 09/11 - RIJ dialysis catheter 08/25 -08/31. New right IJ hemodialysis catheter 09/01 - - Right femoral hemodialysis catheter 09/13 Critical Care: The total critical care time was 35 minutes. Time to perform other separately billable procedures was not included in the critical care time. Addendum Patient with nonocclusive thrombus in right IJ. Discussed with Dr. Moffett. Safia for full mechanical ventilation with heparin drip. Will be held at 8 AM tomorrow for likely tracheostomy. Connor Lebron MD Sep 17, 2016 12:03
[2016-09-17] MEDS: LABETALOL HCL 100 MG/20 ML VIAL IV PUSH PRN (12:11)
[2016-09-17] MEDS ORDERED: FOSPHENYTOIN INJ 1,000 MGPE in SODIUM CHLORIDE 0.9% INJ 50 ML IV ONE (12:15)
--- NOTE | 2016-09-17 12:48 | HHI.PR ---
Subjective Remarks POD#30 s/p robotic LAR/SBR/ANNA MARIE, POD#22 s/p ex lap, washout, diverting loop ileostomy WBCs up. Temp up Objective Vital Signs Date Time Temp Pulse Resp B/P Pulse Ox O2 Delivery O2 Flow Rate FiO2 09/17/16 12:00 111 09/17/16 12:00 100.7 126 22 150/82 95 09/17/16 12:00 40 09/17/16 10:06 95 40 09/17/16 10:00 120 09/17/16 08:06 97 40 09/17/16 08:00 40 09/17/16 08:00 121 09/17/16 08:00 101.0 122 24 148/87 96 09/17/16 06:36 33 09/17/16 06:00 118 09/17/16 04:02 96 40 09/17/16 04:00 103 09/17/16 04:00 99.4 103 22 122/89 96 09/17/16 04:00 40 09/17/16 02:00 94 09/17/16 00:00 40 09/17/16 00:00 99.0 105 28 111/75 97 09/17/16 00:00 96 09/16/16 22:00 105 09/16/16 20:00 99.1 110 44 129/78 100 09/16/16 20:00 110 09/16/16 20:00 40 09/16/16 19:53 99 40 09/16/16 18:00 122 09/16/16 16:56 98 40 09/16/16 16:00 98.0 120 26 141/75 100 09/16/16 16:00 120 09/16/16 16:00 40 09/16/16 15:30 98.0 09/16/16 15:00 98.2 121 25 153/83 96 09/16/16 14:00 106 09/16/16 13:38 98 40 I/O 09/16/16 09/16/16 09/16/16 09/17/16 09/17/16 09/17/16 07:00 15:00 23:00 07:00 15:00 23:00 Intake Total 740 ml 832 ml 930 ml 735 ml Output Total 450 ml 525 ml 4300 ml 400 ml Balance 290 ml 307 ml -3370 ml 335 ml Intake Oral 0 ml 0 ml 0 ml IV Total 320 ml 415 ml 360 ml 240 ml Tube Feeding 360 ml 357 ml 450 ml 375 ml Other 60 ml 60 ml 120 ml 120 ml Output Urine Total 0 ml 0 ml 0 ml 0 ml Stool Total 450 ml 525 ml 300 ml 400 ml Drainage Total 0 ml 0 ml 0 ml 0 ml Hemodialysis 4000 ml Result Diagram: 09/17/16 0727 09/17/16 0427 Objective Remarks Abdomen soft Wounds clean Accordians with minimal drainage Assessment and Plan Assessment and Plan CV - BP stable RESP - tracheostomy tomorrow KIDNEY - still anuric,continue HD FEN - TF's resumed, tolerating ID - WBC's up again scan today Trach tomorrow Elana Moffett MD Sep 17, 2016 12:48
[2016-09-17] MEDS: ARTIFICIAL TEARS OPTH SOLN 15 ML BTL EACH EYE SCH ×2 (13:18→22:00)
[2016-09-17 13:31] LABS: BANDS 8 % (0-6); EOSINOPHILS 6 % (0-4); METAMYELOCYTES 3 % (0-1); MYELOCYTES 5 % (0-0); NEUTROPHIL # MANUAL DIFF 22.9 TH/MM3 (1.8-7.7); PLATELET ESTIMATE SMEAR NORMAL (NORMAL); PLATELET MORPHOLOGY NORMAL (NORMAL); POLYS (SEG NEUTROPHILS) 64 % (16-70); WBC DIFF SAMPLE 100
[2016-09-17 13:32] LABS: SCAN/DIFF FINAL DIFF MANUAL
[2016-09-17 13:33] LABS: STOMATOCYTES 1+ (NORMAL)
[2016-09-17] MEDS: ACETAMINOPHEN 325 MG TAB PO PRN (13:41)
[2016-09-17] MEDS ORDERED: DIATRIZOATE MEGLUM/DIATRIZOATE SOD 9 ML CUP PO ONE ×2 (14:00)
[2016-09-17] MEDS: MEROPENEM INJ 500 MG in SODIUM CHLORIDE 0.9% INJ 100 ML IV SCH (15:03)
--- NOTE | 2016-09-17 15:10 | HHI.NPPN ---
Subjective General Problems: Edema Renal Failure: Acute Review of Systems General General Remarks unable to evaluate Objective Data Data 09/16/16 09/17/16 19:00 07:00 Intake Total 832 ml 1665 ml Output Total 4525 ml 700 ml Balance -3693 ml 965 ml Intake Oral 0 ml IV Total 415 ml 600 ml Tube Feeding 357 ml 825 ml Other 60 ml 240 ml Output Urine Total 0 ml 0 ml Stool Total 525 ml 700 ml Drainage Total 0 ml 0 ml Hemodialysis 4000 ml Vital Signs Date Time Temp Pulse Resp B/P Pulse Ox O2 Delivery O2 Flow Rate FiO2 09/17/16 14:00 104 09/17/16 13:09 97 40 09/17/16 12:00 111 09/17/16 12:00 100.7 126 22 150/82 95 09/17/16 12:00 40 09/17/16 10:06 95 40 09/17/16 10:00 120 09/17/16 08:06 97 40 09/17/16 08:00 40 09/17/16 08:00 121 09/17/16 08:00 101.0 122 24 148/87 96 09/17/16 06:36 33 09/17/16 06:00 118 09/17/16 04:02 96 40 09/17/16 04:00 103 09/17/16 04:00 99.4 103 22 122/89 96 09/17/16 04:00 40 09/17/16 02:00 94 09/17/16 00:00 40 09/17/16 00:00 99.0 105 28 111/75 97 09/17/16 00:00 96 09/16/16 22:00 105 09/16/16 20:00 99.1 110 44 129/78 100 09/16/16 20:00 110 09/16/16 20:00 40 09/16/16 19:53 99 40 09/16/16 18:00 122 09/16/16 16:56 98 40 09/16/16 16:00 98.0 120 26 141/75 100 09/16/16 16:00 120 09/16/16 16:00 40 09/16/16 15:30 98.0 -: 09/17/16 0727 09/17/16 0427 Microbiology 09/17/16 Aerobic Blood Culture, Received Pending 09/17/16 Anaerobic Blood Culture, Received Pending 09/17/16 Aerobic Blood Culture, Received Pending 09/17/16 Anaerobic Blood Culture, Received Pending 09/17/16 Gram Stain, Received Pending 09/17/16 Sputum Culture, Received Pending Tubes & Lines: Vas-Cath Tubes & Lines Comment TLC, NG tube, SERGEI drain RLQ Drip Comment fentanyl, propofol , versed Physical Exam General Appearance: No Acute Distress Throat Throat Exam: Oral Mucosa [facility] & Moist Pulmonary Resp Exam: Breath Sounds Equal, No Distress, Crackles, Sputum, Diminished Breath Sounds Cardiology CV Exam: Regular, Normal Sinus Rhythm Gastrointestinal/Abdomen GI Exam: Distended Musculoskeletal MS Exam: Joints Intact, Normal Tone Integumentary Skin Exam: Warm, Dry Extremeties Extremities Exam: No Edema, Pedal Pulses Palpable Neurologic Neuro Exam: Obtunded, Unresponsive, Sedated VTE Prophylaxis Device: SCDs Assessment/Plan Discussed Condition With: Relative Assessment Summary: VIRIDIANA/Acute Renal Failure, Acute Tubular Necrosis, Fluid/ Volume Overload Problem List: (1) Acute renal failure Plan: He has developed ATN due to sepsis. UF 4L Yesterday vascath in rt groin WBC higher going for ct He will be dialyzed daily, with possible day off on Sunday. Developed life threatening hyperkalemia with EKG changes this week, monitor for recurrence oligoanuric, monitor for changes Avoid nephrotoxic agents. Avoid IVF specifically LR. On Calcium acetate for hyperphosphatemia. Dr. Kuo to follow (2) Diverticulitis Plan: with sepsis s/p colon resection with complications surgery following. multiple positive cultures of wound, catheter tip, and sputum ID following, managing antibiotics. He is on meropenem and Zosyn. s/p bronchoscopy on 09/13. Problem Qualifiers (1) Acute renal failure: Qualified Code: N17.0 - Acute renal failure with tubular necrosis Km Maya MD Sep 17, 2016 15:10
[2016-09-17] MEDS: RESP: SODIUM CHLORIDE 3% 4 ML NEB NEB SCH ×2 (15:41→19:12)
[2016-09-17] MEDS ORDERED: SODIUM CHLOR 0.9% 1000 ML INJ 1,000 ML IV ONE ×2 (16:00→17:30)
[2016-09-17] MEDS ORDERED: ALBUMIN HUMAN 25% 25 GM/100 ML BAGP IV ONE (17:00)
--- NOTE | 2016-09-17 17:24 | HHI.IDPN ---
Subjective Subjective Remarks ID COVERAGE for is a 56-year-old male, admitted to the hospital initially for surgery. He has chronic diverticulitis with extension to the small bowel. He underwent surgery August 19 and had laparoscopic, robotic extensive lysis of adhesions, low anterior resection, and small bowel resection. On August 24 he developed anastomotic leak, and underwent repeat surgery and had exploratory laparotomy, irrigation and diverging loop sigmoid colostomy. On September 02 he developed wound dehiscence in the lower midline incision, and it was felt that it had fascial dehiscence. Wound VAC was started at that time. More recently he was found to have a retroperitoneal abscess, and a percutaneous drain was placed on September 01. Patient has been treated for gram-negative pneumonia. The retroperitoneal abscess culture has grown Pseudomonas, enterococcus, and Iram glabrata. Patient has required ventilatory support. Patient also has developed renal failure, and has been undergoing hemodialysis. His WBC remains elevated. Notes reviewed Discussed with RN and . Patient on the vent. Thick yellow to henry secretions, freq suctioning, moderate amounts. On sedation. Low blood pressure, clinically dry, HD was yday. His colostomy is working Has minimal urine output, undergoes HD daily. Has a HD catheter in groin. WBC up to 28 K. No rash Antibiotics Meropenem IV Micafungin IV Lines HD cath site ok. Past Medical History 1. Diverticulitis. 2. COPD. 3. Hypertension. 4. Anxiety disorder. 5. BPH. 6. History of tonsillectomy. Allergies: Coded Allergies: No Known Allergies (Verified , 08/18/16) Objective . Vital Signs Date Time Temp Pulse Resp B/P Pulse Ox O2 Delivery O2 Flow Rate FiO2 09/17/16 16:00 101.5 90 22 75/49 97 09/17/16 16:00 89 09/17/16 16:00 40 09/17/16 15:36 96 40 09/17/16 14:00 104 09/17/16 13:09 97 40 09/17/16 12:00 111 09/17/16 12:00 100.7 126 22 150/82 95 09/17/16 12:00 40 09/17/16 10:06 95 40 09/17/16 10:00 120 09/17/16 08:06 97 40 09/17/16 08:00 40 09/17/16 08:00 121 09/17/16 08:00 101.0 122 24 148/87 96 09/17/16 06:36 33 09/17/16 06:00 118 09/17/16 04:02 96 40 09/17/16 04:00 103 09/17/16 04:00 99.4 103 22 122/89 96 09/17/16 04:00 40 09/17/16 02:00 94 09/17/16 00:00 40 09/17/16 00:00 99.0 105 28 111/75 97 09/17/16 00:00 96 09/16/16 22:00 105 09/16/16 20:00 99.1 110 44 129/78 100 09/16/16 20:00 110 09/16/16 20:00 40 09/16/16 19:53 99 40 09/16/16 18:00 122 09/16/16 09/16/16 09/17/16 15:00 23:00 07:00 Intake Total 832 ml 930 ml 735 ml Output Total 525 ml 4300 ml 400 ml Balance 307 ml -3370 ml 335 ml Intake Oral 0 ml 0 ml IV Total 415 ml 360 ml 240 ml Tube Feeding 357 ml 450 ml 375 ml Other 60 ml 120 ml 120 ml Output Urine Total 0 ml 0 ml 0 ml Stool Total 525 ml 300 ml 400 ml Drainage Total 0 ml 0 ml 0 ml Hemodialysis 4000 ml . Laboratory Tests Test 09/16/16 09/17/16 04:01 07:27 White Blood Count 20.1 TH/MM3 28.6 TH/MM3 Red Blood Count 2.82 MIL/MM3 3.53 MIL/MM3 Hemoglobin 7.9 GM/DL 9.9 GM/DL Hematocrit 24.0 % 30.4 % Mean Corpuscular Volume 84.9 FL 86.0 FL Mean Corpuscular Hemoglobin 28.1 PG 28.1 PG Mean Corpuscular Hemoglobin 33.1 % 32.7 % Concent Red Cell Distribution Width 15.2 % 15.3 % Platelet Count 472 TH/MM3 427 TH/MM3 Mean Platelet Volume 7.9 FL 8.1 FL Neutrophils (%) (Auto) 76.4 % 74.7 % Lymphocytes (%) (Auto) 8.8 % 9.5 % Monocytes (%) (Auto) 11.0 % 12.0 % Eosinophils (%) (Auto) 2.9 % 3.0 % Basophils (%) (Auto) 0.9 % 0.8 % Neutrophils # (Auto) 15.3 TH/MM3 21.4 TH/MM3 Lymphocytes # (Auto) 1.8 TH/MM3 2.7 TH/MM3 Monocytes # (Auto) 2.2 TH/MM3 3.4 TH/MM3 Eosinophils # (Auto) 0.6 TH/MM3 0.8 TH/MM3 Basophils # (Auto) 0.2 TH/MM3 0.2 TH/MM3 CBC Comment AUTO DIFF AUTO DIFF Differential Total Cells 100 100 Counted Neutrophils % (Manual) 70 % 64 % Band Neutrophils % 4 % 8 % Lymphocytes % 8 % 2 % Monocytes % 8 % 12 % Eosinophils % 1 % 6 % Neutrophils # (Manual) 16.7 TH/MM3 22.9 TH/MM3 Metamyelocytes 1 % 3 % Myelocytes 6 % 5 % Promyelocytes 2 % Differential Comment FINAL DIFF FINAL DIFF MANUAL MANUAL Platelet Estimate NORMAL NORMAL Platelet Morphology Comment CLUMPED NORMAL Stomatocytes 2+ 1+ Laboratory Tests Test 09/16/16 09/17/16 04:01 04:27 Sodium Level 139 MEQ/L 140 MEQ/L Potassium Level 4.8 MEQ/L 4.7 MEQ/L Chloride Level 101 MEQ/L 103 MEQ/L Carbon Dioxide Level 29.0 MEQ/L 27.7 MEQ/L Anion Gap 9 MEQ/L 9 MEQ/L Blood Urea Nitrogen 41 MG/DL 43 MG/DL Creatinine 4.57 MG/DL 4.30 MG/DL Estimat Glomerular Filtration 13 ML/MIN 14 ML/MIN Rate Random Glucose 113 MG/DL 117 MG/DL Calcium Level 9.3 MG/DL 9.9 MG/DL Phosphorus Level 4.3 MG/DL 3.9 MG/DL Magnesium Level 2.2 MG/DL 2.2 MG/DL Total Bilirubin 2.2 MG/DL Aspartate Amino Transf 55 U/L (AST/SGOT) Alanine Aminotransferase 17 U/L (ALT/SGPT) Alkaline Phosphatase 469 U/L Total Protein 8.3 GM/DL Albumin 2.3 GM/DL Microbiology Date/Time Procedure Status Source Growth 09/17/16 11:15 Aerobic Blood Culture Received Blood Peripheral Pending 09/17/16 11:15 Anaerobic Blood Culture Received Blood Peripheral Pending 09/17/16 11:45 Aerobic Blood Culture Received Blood Other Pending 09/17/16 11:45 Anaerobic Blood Culture Received Blood Other Pending 09/17/16 12:50 Gram Stain - Final Resulted Sputum Endotracheal 09/17/16 12:50 Sputum Culture Resulted Sputum Endotracheal Pending Imaging Chest X-Ray 09/10/16 0000 Signed Impressions: Service Date/Time: Saturday, September 10, 2016 04:09 - CONCLUSION: 1. Slight improvement of right basilar airspace disease since September 03. Support apparatus unchanged. Miki Banerjee MD Chest X-Ray 09/03/16 06 Signed Impressions: Service Date/Time: Saturday, September 03, 2016 04:03 - CONCLUSION: Stable left lower lobe consolidation and right lower lung infiltrates. Evelio Boyd MD Retroperitoneal Abscess Drainage 09/01/16 06 Signed Impressions: Service Date/Time: Thursday, September 01, 2016 13:05 - CONCLUSION: Uncomplicated CT guided drainage of a right lower quadrant fluid collection. Approximately 75 cc of fecal-like brown material was aspirated. The air and fluid collection may communicate with the inferior aspect of the midline wound on the anterior abdominal wall. Claude Carrasco MD Abdomen/Pelvis CT 08/29/16 0000 Signed Impressions: Service Date/Time: Monday, August 29, 2016 17:12 - CONCLUSION: Post surgical changes following partial colon resection. Persistent pockets of fluid. Largest is located in the pelvis and contains an air-fluid level. Abscess formation cannot be excluded. Small bowel ileus Bibasilar airspace disease and pleural effusions Aakash Iqbal MD Abdomen X-Ray 08/24/16 0000 Signed Impressions: Service Date/Time: August 07:44 - CONCLUSION: Gaseous distention of multiple bowel loops possible ileus. Jony Miller MD Enema w/Water Soluble 08/23/16 0000 Signed Impressions: Service Date/Time: Tuesday, August 23, 2016 10:12 - CONCLUSION: Anastomosis appears patent without extravasation. Aditya Rocha MD FACR CT Angiography 08/21/16 0000 Signed Impressions: Service Date/Time: Sunday, August 21, 2016 14:05 - CONCLUSION: 1. There is no evidence for central pulmonary emboli. 2. Minimal subcutaneous air as well as free intraperitoneal air. Aditya Rocha MD FACR Physical Exam GENERAL: On sedation, but opens eyes, NAD. On the vent SKIN: Warm, no rash HEENT: [place] conjunctivae, no scleral icterus. He is orally intubated. NECK: No adenopathy or swelling. LUNGS: Coarse breath sounds bilaterally, decreased at the bases. HEART: Regular rate and rhythm. No audible murmurs, rubs or gallops. ABDOMEN: Distended. Has midline incision, with wound vac at lower portion, drainage from incision less, no erythema noted. Colostomy is working. 1 SERGEI with serous drainage. Percutaneous drainage with purulent fluid EXTREMITIES: No clubbing or cyanosis. Edema improving. Well-perfused NEUROLOGIC: Awake, seems to be focusing LINE: No evidence of infection Assessment & Plan Remarks IMPRESSION Sepsis, had initially anastomotic leak, now with retroperitoneal abscess, and has a drain in place - C/S polymicrobial, PSAE. Enterococcus and Iram ? Line infection or new VAP. PSAE PNA Respiratory failure - doing CPAP trials Previously has PSAE, Kleb and [place]err[place] PNA Acute renal failure, likely multifactorial, sepsis Leukocytosis, persistent but lower ? Drug fever ? Zosyn IV RECOMMENDATIONS Continue Meropenem IV. Continue Micafungin IV for antifungal (had C glabrata and C albicans) Vanco IV x 1 dose today. Re-dose based on levels. Ritter cultures CT Brain, CT A/P today. Monitor progress Monitor abdominal incision D/W RN D.w : about HD cath in groin. Difficult to place lines in neck. Keep HD cath for now unless new bacteremia. to resume care in am. Eugenie Quarles MD Sep 17, 2016 17:23
[2016-09-17] MEDS ORDERED: HEPARIN-D5W INJ 250 ML IV SCH (17:30)
[2016-09-17] MEDS ORDERED: VANCOMYCIN INJ 1,500 MG in SODIUM CHLORID 0.9% 500 ML INJ 500 ML IV STA (17:30)
[2016-09-17 18:07] LABS: HEMATOCRIT 25.8 % (39.0-51.0); MEAN CELL VOLUME 86.3 FL (80.0-100.0); MEAN CORPUSCULAR HEMOGLOBIN 27.8 PG (27.0-34.0); MEAN CORPUSCULAR HGB CONC 32.2 % (32.0-36.0); PLATELET COUNT 405 TH/MM3 (150-450); RED CELL DISTRIBUTION WIDTH 15.4 % (11.6-17.2); REVIEW FLAG FINAL; WHITE BLOOD COUNT 23.2 TH/MM3 (4.0-11.0)
[2016-09-17 18:16] LABS: APTT (PATIENT) 27.8 SEC (24.3-30.1)
--- NOTE | 2016-09-17 18:51 | RADRPT ---
EXAM DATE/TIME: 09/17/2016 17:33 [facility] COMPARISON: No previous studies available for comparison. INDICATIONS : Bilateral leg edema. MEDICAL HISTORY : Hypercholesterolemia. Diverticulitis. Arthritis. MAC degeneration. Hyperlipidemia. HTN. COPD. Asthma. Diabetes. Stage III renal disease. Anticoagulant therapy, Aspirin 81mg. Anxiety. SURGICAL HISTORY : Tonsillectomy. ENCOUNTER: Initial ACUITY: 1 day PAIN SCORE: 10/10 LOCATION: Bilateral leg. TECHNIQUE: Venous ultrasound of the left and right leg was performed from the inguinal ligament to the proximal calf. Real-time, color Doppler and spectral tracing, compression and augmentation techniques were us ed. FINDINGS: RIGHT LEG: There is normal compressibility of the deep venous system from the inguinal region to the proximal ca lf. No echogenic clot is seen in the lumen of the common femoral, femoral, popliteal, and posterior tibial veins. There is a normal response of the venous system to proximal and distal augmentation an d respiration. LEFT LEG: There is normal compressibility of the deep venous system from the inguinal region to the proximal ca lf. No echogenic clot is seen in the lumen of the common femoral, femoral, popliteal, and posterior tibial veins. There is a normal response of the venous system to proximal and distal augmentation an d respiration. CONCLUSION: Normal examination. Miki Banerjee MD on September 17, 2016 at 18:49 Board Certified Radiologist. This report was verified electronically.
--- NOTE | 2016-09-17 20:15 | RADRPT ---
EXAM DATE/TIME: 09/17/2016 16:48 [facility] COMPARISON: No previous studies available for comparison. INDICATIONS : Bilateral arm edema. MEDICAL HISTORY : Hypercholesterolemia. Arthritis. Diverticulitis. MAC degeneration. Hyperlipidemia. HTN. COPD. Asthma. Diabetes. Stage III renal disease. Anticoagulant therapy, Aspirin 81mg. Anxiety. SURGICAL HISTORY : Tonsillectomy. ENCOUNTER: Initial ACUITY: 1 day PAIN SCORE: Non-responsive LOCATION: Bilateral arm. FINDINGS: The examination is positive for nonocclusive deep venous thrombosis in the right internal jugular vei n. There is also nonocclusive superficial venous thrombosis in the left distal cephalic vein. The rem ainder of the deep veins in the upper extremities are patent. CONCLUSION: 1. Positive nonocclusive deep venous thrombosis right internal jugular vein. 2. Nonocclusive superficial thrombosis in the left cephalic vein. Miki Banerjee MD on September 17, 2016 at 20:12 Board Certified Radiologist. This report was verified electronically.
--- NOTE | 2016-09-17 21:36 | RADRPT ---
EXAM DATE/TIME: 09/17/2016 20:46 [facility] COMPARISON: CT PULMONARY ANGIOGRAM, August 21, 2016, 14:05. INDICATIONS : Pneumonia. RADIATION DOSE: 9.42 CTDIvol (mGy) ; Combined studies - Thorax/Abdomen/Pelvis MEDICAL HISTORY : Hypertension. Diabetes mellitus type 2. Renal disease. SURGICAL HISTORY : None. ENCOUNTER: Initial ACUITY: 1 day PAIN SCALE: Non-responsive LOCATION: chest TECHNIQUE: Volumetric scanning of the chest was performed. Using automated exposure control and adjustment of t he mA and/or kV according to patient size, radiation dose was kept as low as reasonably achievable to obtain optimal diagnostic quality images. FINDINGS: Compare CT pulmonary angiogram from August 21. Compared with prior study there is development of mu ltifocal airspace consolidation in the lungs, worse on the right side characteristic of bronchopneumo rick. There are small bilateral pleural effusions. No significant hilar, mediastinal or axillary adeno padmaja. Endotracheal tube in satisfactory position. NG enters stomach. See abdomen CT for findings bel ow the diaphragm. CONCLUSION: 1. Multifocal airspace consolidation in the lungs, right greater than left most characteristic of bro nchopneumonia. There is underlying mild to moderate emphysema. Small effusions. Miki Banerjee MD on September 17, 2016 at 21:29 Board Certified Radiologist. This report was verified electronically.
--- NOTE | 2016-09-17 21:40 | RADRPT ---
EXAM DATE/TIME: 09/17/2016 20:47 [facility] COMPARISON: CT BRAIN W/O CONTRAST, September 11, 2016, 18:41. INDICATIONS : Altered mental status. RADIATION DOSE: 56.35 CTDIvol (mGy) MEDICAL HISTORY : Hypertension. Diabetes mellitus type 2. Renal disease. SURGICAL HISTORY : None. ENCOUNTER: Initial ACUITY: 1 day PAIN SCALE: Non-responsive LOCATION: cranial TECHNIQUE: Multiple contiguous axial images were obtained of the head. Using automated exposure control and adj ustment of the mA and/or kV according to patient size, radiation dose was kept as low as reasonably a chievable to obtain optimal diagnostic quality images. FINDINGS: CEREBRUM: The ventricles are normal for age. No evidence of midline shift, mass lesion, hemorrhage or acute in farction. No extra-axial fluid collections are seen. POSTERIOR FOSSA: The cerebellum and brainstem are intact. The 4th ventricle is midline. The cerebellopontine angle i s unremarkable. EXTRACRANIAL: The visualized portion of the orbits is intact. SKULL: The calvaria is intact. No evidence of skull fracture. CONCLUSION: 1. No acute intracranial abnormalities. Miki Banerjee MD on September 17, 2016 at 21:34 Board Certified Radiologist. This report was verified electronically.
--- NOTE | 2016-09-17 21:44 | RADRPT ---
EXAM DATE/TIME: 09/17/2016 20:50 [facility] COMPARISON: CT ABDOMEN & PELVIS W/O CONTRAST, September 12, 2016, 4:12. INDICATIONS : Abscess. ORAL CONTRAST: Prescribed oral contrast ingested. RADIATION DOSE: 9.42 CTDIvol (mGy) ; Combined studies - Thorax/Abdomen/Pelvis MEDICAL HISTORY : Hypertension. Diabetes mellitus type 2. Renal disease. SURGICAL HISTORY : None. ENCOUNTER: Initial ACUITY: 1 day PAIN SCALE: Non-responsive LOCATION: Bilateral abdomen TECHNIQUE: Volumetric scanning of the abdomen and pelvis was performed. Using automated exposure control and ad justment of the mA and/or kV according to patient size, radiation dose was kept as low as reasonably achievable to obtain optimal diagnostic quality images. FINDINGS: Compare September 12. Basilar airspace consolidation has improved since September 12. Trace bilateral pleural effusions. NG is coiled in the stomach. There is interval placement of a drain into the epigastric region with fluid collection decreased in size from 17.8 x 7.3 cm to 11.7 x 4.3 cm. Right lower quadrant ostomy again noted with parastomal herniation of fat. There is an open anterior abdominal wound. Again seen is a drain in right lower quadrant without significant fluid accumulation around the drain. Bowel yehuda are present. Previous left sided drain has been removed. No new flui d collections within the abdomen or pelvis. No focal abnormalities seen in the liver, spleen, adrenals, kidneys or pancreas. No calcified gallsto brandy or biliary ductal dilatation. CONCLUSION: 1. Interval placement of drain in upper abdomen anteriorly with decrease in size of fluid collection as above. No new fluid collections within the abdomen and pelvis. 2. Right lower quadrant drain remains. Previous left drain has been removed. NG coiled in stomach. Miki Banerjee MD on September 17, 2016 at 21:38 Board Certified Radiologist. This report was verified electronically.
[2016-09-17] MEDS: PHENYTOIN SUSP 100 MG/4 ML CUP PO SCH (22:14)
[2016-09-17] MEDS: LORazepam 2 MG/ML VIAL IV PUSH PRN (22:15)
[2016-09-17] MEDS: RESP: ACETYLCYSTEINE 10% 30 ML NEB NEB SCH (23:33)
[2016-09-18] VITALS (16 sets, daily range): BP systolic 104–171; BP diastolic 58–101; PULSE 74–105; RESP 17–22; TEMP 99.9–101.3; O2SAT 97–100
[2016-09-18] MEDS: SODIUM CHLORIDE 0.9% 10 ML VIAL IV FLUSH SCH ×3 (01:30→17:26)
[2016-09-18] MEDS: RESP: ALBUTEROL 2.5 MG/3 ML NEB (SCH) INH ×6 (03:30→23:22)
[2016-09-18 03:52] LABS: AUTOMATED NEUTROPHIL # 15.8 TH/MM3 (1.8-7.7); BASOPHIL # 0.2 TH/MM3 (0-0.2); BASOPHIL % 0.9 % (0.0-2.0); EOSINOPHIL # 0.9 TH/MM3 (0-0.4); EOSINOPHIL % 4.4 % (0.0-4.0); HEMATOCRIT 25.9 % (39.0-51.0); LYMPH % 10.3 % (9.0-44.0); LYMPHOCYTE # 2.2 TH/MM3 (1.0-4.8); MEAN CELL VOLUME 85.9 FL (80.0-100.0); MEAN CORPUSCULAR HEMOGLOBIN 27.8 PG (27.0-34.0); MEAN CORPUSCULAR HGB CONC 32.3 % (32.0-36.0); MONO % 10.8 % (0.0-8.0); NEUT % 73.6 % (16.0-70.0); PLATELET COUNT 369 TH/MM3 (150-450); RED BLOOD COUNT 3.02 MIL/MM3 (4.50-5.90); RED CELL DISTRIBUTION WIDTH 15.5 % (11.6-17.2); WHITE BLOOD COUNT 21.4 TH/MM3 (4.0-11.0)
[2016-09-18 03:57] LABS: HEMO FLAGS AUTO DIFF
[2016-09-18] MEDS: RESP: SODIUM CHLORIDE 3% 4 ML NEB NEB SCH ×4 (04:00→19:28)
[2016-09-18 04:01] LABS: BICARBONATE 25.7 MEQ/L (21.0-32.0); POTASSIUM 5.4 MEQ/L (3.5-5.1)
[2016-09-18 04:58] LABS: SCAN/DIFF AUTO DIFF CONFIRMED
[2016-09-18] MEDS: ARTIFICIAL TEARS OPTH SOLN 15 ML BTL EACH EYE SCH ×3 (05:07→23:12)
[2016-09-18] MEDS: cloNIDine HCL 0.1 MG TAB PO SCH ×3 (05:07→23:12)
--- NOTE | 2016-09-18 05:56 | RADRPT ---
EXAM DATE/TIME: 09/18/2016 04:33 [facility] COMPARISON: CHEST SINGLE AP, September 17, 2016, 4:43. INDICATIONS : Shortness of breath, possible pulmonary disease. MEDICAL HISTORY : Chronic obstructive pulmonary disease. SURGICAL HISTORY : None. ENCOUNTER: Subsequent ACUITY: 3 weeks PAIN SCORE: Non-responsive. LOCATION: Bilateral chest FINDINGS: A single view of the chest demonstrates patchy airspace densities in the right upper lobe and both lo wer lobes. Heart normal size. Endotracheal tube with tip 5.5 cm above the lj. Nasogastric tube ti p in stomach. Osseous structures are intact. CONCLUSION: Stable bilateral patchy densities greater throughout the right lung. Jony Miller MD on September 18, 2016 at 5:54 Board Certified Radiologist. This report was verified electronically.
[2016-09-18] MEDS ORDERED: MISC INFORMATION OTHER ONE (07:30)
--- NOTE | 2016-09-18 08:05 | HHI.CCPN ---
Subjective Remarks/Hospital Course 08/25: Patient is a 58-year-old male with past medical history significant COPD who, on 08/18/16, underwent Laparoscopic robotic extensive lysis of adhesions, low anterior resection and small bowel resection. Apparently he was brought in by Dr. Moffett for Diverticulitis. Patient has a history of hypertension, COPD, and continues to smoke one pack of cigarettes a day. Postoperatively patient became progressively short of breath. Pulmonary was consulted on 08/21/16 as the patient was becoming more hypoxemic requiring BiPAP. CT of the chest PE protocol did not show any pulmonary embolism. Patient was placed on breathing treatments and IV Solu-Medrol 40 mg every [address] Renteria. Today a.m. patient was on 100% nonrebreather. Patient was diagnosed with an anastomotic leak today and was taken back to the OR by Dr. Moffett. He underwent exploratory laparotomy, I&D and loop ileostomy today. Postop patient remained hypoxemic requiring 70% oxygen, and hence was left intubated and critical care medicine was consulted. Dr. Arce evaluated the patient in ICU. He remained hypoxemic, FiO2 70%. Chest x-ray shows bibasilar mild infiltrates. On sedation lightening patient became very hypertensive, not following commands probably secondary to residual NM blockade received while being transported to ICU. Patient on receiving vancomycin Levaquin and Flagyl per Dr. Moffett. Dr. Acre added cefepime to cover for Pseudomonas. Holding Solu-Medrol due to anastomotic leak. 08/26: Remains sedated, orally intubated on mechanical ventilation. Went into anuric renal failure yesterday which did not respond to fluid boluses and diuretics hence was started on hemodialysis after placement of right IJ Vas- Cath. Currently sedated, arousable, remains orally intubated on mechanical ventilation. Blood pressure borderline last evening following dialysis for which she was started on low-dose vasopressin 0.03 units per minute and Levophed which is currently at 1 jose per minute. Started on TPN last night following which he has been hyperglycemic. 08/27: Sedated, arousable, orally intubated on mechanical ventilation. Spiking fevers overnight. Off Levophed, transiently off vasopressin. Remains on TPN. 08/28: Remains sedated, arousable, orally intubated on mechanical ventilation. On low-dose vasopressin. TPN continues. Made about 500 cc of urine in the last 24 hours. 08/29: In sedated, arousable, orally intubated on mechanical ventilation. Remains on TPN. Dirty drainage from left-sided SERGEI drain noted overnight. Dr. Moffett obtaining CT abdomen pelvis with oral contrast and ID consulted. 08/30: CURRENT TEMPERATURE 99. Status post 4 L hemodialysis today. No current change in therapy. White blood cell count remained stable. Off vasopressors. Arousable to voice. Versed has been discontinued. We'll attempt CPAP trials again today. 08/31: MAXIMUM TEMPERATURE 100.4. Currently 100.1. Currently resting in bed in no acute distress. Continues with scant drainage from bilateral JPs. We'll attempt CPAP trial again today. Positive stool from ostomy bag 09/01: Tmax 99.8. Currently 99.3. Placement of the new right IJ vas catheter today. Plan for IR to possibly drain right lower quadrant fluid collection. Arousable and moves all 4 extremity spontaneously. 09/02: Currently afebrile. Noted placement of iron drain with accordion drain. Growing Pseudomonas. Lasted only 2 hours on CPAP trials today. 09/03: Tolerated SBT for only 30 mins and required PS 20. Not ready to extubate. 09/04: Tachypnea related to anxiety? or metabolic acidosis. Will check VBG. Not tolerating SBT. Anemia. Transfuse during HD. 09/05: Remains very tachypneic on SBTs. Unable to extubate. 09/06: Leukocytosis and bandemia. Acts like ongoing sepsis. 09/07: No significant changes. Afebrile. Tolerating TFs as recommended by CRS. Will transition from TPN to enteral feeds now. 09/08: Bandemia persists. Tolerating full TFs. D/c'd TPN. Glucose control acceptable. 09/09: Tolerating longer CPAP/PS trials. 09/10: Stronger respiratory effort. Try to extubate today. 09/11: Stable hemodynamics, marginal respiratory function. 09/11 update 1800 hrs: Patient developed sudden hyperventilation to 55-60/min, hypertensive urgency to 220/120s, unresponsive state, started versed 10 mg/hr after 10 mg iv. Load with cerebyx, get head CT, EEG in a.m. 09/12: BP and pulse rate control improved with sedation. Etiology unclear. Suspected intracranial process but CT head normal. Possibly seizures. EEG pending this morning. WBC with bandemia persists. 09/13: CURRENT TEMPERATURE 99. Heart rate and blood pressure control. Noted T changes last night noted a potassium 8.2. Noted hemodialysis catheter placed by overnight account processor in right femoral vein and hemodialysis currently undergoing. Plan for drainage of epigastric fluid collection by IR today. 09/14: Currently afebrile. Status post prior drainage of epigastric fluid area. Currently 60 ccwhite pus accordian drain. Status post bronchoscopy yesterday. 09/15 - intubation day #22. Family waiting another 24 hours to consider tracheostomy. He is not able to be extubated. Currently undergoing hemodialysis. Likely dialysis dependent. 09/16: Tmax 100.2. Blood pressure slowly trending downward. He transfuse PRBCs and albumin bolus prior to hemodialysis today. Intubation day #23. Family currently agreeable to tracheostomy but I'm unable to perform until Sunday. Positive BM. 09/17: Tmax 101. Intubation day #24. Tolerating tube feeding. Currently on Versed and fentanyl drips. 09/18: Remains sedated, orally intubated on mechanical ventilation. Scheduled for percutaneous tracheostomy today. Was dialyzed yesterday. Percutaneous drains [address] Ileostomy with good output. Wound VAC in place over anterior abdominal incision site. Objective Vital Signs Date Time Temp Pulse Resp B/P Pulse Ox O2 Delivery O2 Flow Rate FiO2 09/18/16 06:00 99 09/18/16 04:00 100.9 17 135/61 97 09/18/16 04:00 40 Intake and Output 09/17/16 09/17/16 09/17/16 07:59 15:59 23:59 Intake Total 735 ml 1341 ml 3390 ml Output Total 400 ml 240 ml 790 ml Balance 335 ml 1101 ml 2600 ml Result Diagram: 09/18/16 0314 09/18/16 0314 Other Results Microbiology Date/Time Procedure Status Source Growth 09/17/16 17:47 Stool Occult Blood (JOSE) - Final Complete Stool Stool HEMOCCULT POSITIVE Imaging Last Impressions Chest X-Ray 09/17/16 0600 Signed Impressions: Service Date/Time: Saturday, September 17, 2016 04:43 - CONCLUSION: Unchanged bilateral filtrates. Evelio Hitchcock Jr., MD Abscess Drainage CT 09/13/16 0000 Signed Impressions: Service Date/Time: Tuesday, September 13, 2016 14:30 - CONCLUSION: Uncomplicated CT guided drainage. Carlo Cortes MD Head CT 09/11/16 0000 Signed Impressions: Service Date/Time: Sunday, September 11, 2016 18:41 - CONCLUSION: Normal examination for a patient of this age. Dave Easton MD Abdomen/Pelvis CT 09/11/16 0000 Signed Impressions: Service Date/Time: Monday, September 12, 2016 04:12 - CONCLUSION: 1. Small bowel dilatation has resolved. 2. Postsurgical changes are identified with increase in size of epigastric fluid collection, but decreased fluid within the mesentery and right paracolic region. 3. There is no evidence for enteric contrast media extravasation. 4. Pulmonary consolidation and effusions. Romel Kohli MD Retroperitoneal Abscess Drainage 09/01/16 0600 Signed Impressions: Service Date/Time: Thursday, September 01, 2016 13:05 - CONCLUSION: Uncomplicated CT guided drainage of a right lower quadrant fluid collection. Approximately 75 cc of fecal-like brown material was aspirated. The air and fluid collection may communicate with the inferior aspect of the midline wound on the anterior abdominal wall. Claude Carrasco MD Abdomen X-Ray 08/24/16 0000 Signed Impressions: Service Date/Time: August 07:44 - CONCLUSION: Gaseous distention of multiple bowel loops possible ileus. Jony Miller MD Enema w/Water Soluble 08/23/16 0000 Signed Impressions: Service Date/Time: Tuesday, August 23, 2016 10:12 - CONCLUSION: Anastomosis appears patent without extravasation. Aditya Rocha MD FACR CT Angiography 08/21/16 0000 Signed Impressions: Service Date/Time: Sunday, August 21, 2016 14:05 - CONCLUSION: 1. There is no evidence for central pulmonary emboli. 2. Minimal subcutaneous air as well as free intraperitoneal air. Aditya Rocha MD FACR Objective Remarks GENERAL: 56-year-old male, critically ill, currently orotracheally intubated SKIN: Warm. Dry. No rash HEAD: Atraumatic. Normocephalic. ENT: Orotracheally intubated. No excoriations noted NECK: Trachea midline. Supple. CARDIOVASCULAR: Tachy, IR. S1, S2. No S4. No m/c/g/r. RESPIRATORY: Mechanical ventilation, scattered rhonchi, no wheezing. GASTROINTESTINAL: Abdomen non distended. Midline incision clean and intact. BS active. Ostomy pink with brown stool. 2 accordion drain, 1 [address] vac in place. MUSCULOSKELETAL: Extremities with Tr+ bilateral upper and lower extremity edema , well perfused. Right femoral dialysis catheter clean dry and intact with some slight bruising NEUROLOGICAL:Pupils equal round and reactive 2 mm bilaterally. Grimaces with suctioning. Date of Insertion: Aug 31, 2016 Date of Removal: Sep 12, 2016 Side: Right A/P Assessment and Plan NEURO/PSYCH: History of anxiety Acute toxic metabolic encephalopathymultifactorial Currently in Versed drip/ fentanyl drip for sedation/analgesia Daily sedation vacation Acetaminophen for fever Haldol 1 mg every 4 hours when necessary RASS 1-2 Ativan 0.5 mg every one hour when necessary agitation Morphine sulfate 3 milligrams IV every 3 hours when necessary pain -Daily sedation vacation, follow neuro status. -Head CT 09/11 no acute intracranial findings -EEG 09/12 revealed mild to moderate encephalopathy. No epileptiform activity. Currently on Cerebyx 300 mg liquid at night. Recheck level in a.m. was 1.7 Repeat level 5.7 on 09/18 RESP: Acute hypoxemic respiratory failure COPD exacerbation Probable healthcare associated pneumonia -Continue ACV 22/600 0.75/8/50 Ventilator bundle -Albuterol nebs every 4 hours scheduled and when necessary duo nebs, Symbicort 2 puffs every 12 was discontinued while in ventilator. Continue Pulmicort 0.5/2 twice a day -Broad-spectrum antibiotics as below -Continue daily C Pap trials. Dr. Renteria/Pulmonary following Increase SBTs length as able. Scheduled for tracheostomy 09/18 CV: Hypotension secondary to septic shock resolved History of hypertension -Received multiple fluid boluses on 08/25. IV fluids discontinued subsequently in view of anuria necessitating hemodialysis. Off all vasopressors -Attempt negative fluid balance with hemodialysis. Currently on clonidine 0.1 3 times a day, Norvasc 5 mg twice a day and Coreg 6.25 twice a day. Decreased Norvasc daily and Coreg 3.125 twice a day with holding parameters for all 3 blood pressure medications GI/ Nutrition: Anastomotic leak status post exploratory laparotomy, I&D, loop ileostomy 08/24/16 s/p Laparoscopic robotic extensive ANNA MARIE, robotic LAR and small bowel resection Laparoscopic robotic ANNA MARIE, robotic LAR and small bowel resection with anastomotic leak History of diverticulitis -Status post exploratory laparotomy, I&D, loop ileostomy 08/24/16 -Postoperative management per Dr. Moffett. Broad-spectrum antibiotics as below. Left SERGEI drain 5 cc. Right SERGEI 25 cc. positive ostomy output CT abdomen pelvis with oral contrast 08/29 reveal small bowel ileus. Serous fluid collection likely postoperative changes. - On Reglan to improve GI motility -Started on TPN 08/25 at 65 cc an hour with lipids daily. This is been discontinued Resumed on Glucerna 1.5 goal 60 cc an hour. Protonix for GI prophylaxis Accordion drain to right lower quadrant 09/01 by IR. Right lower quadrant SERGEI. LLQ SERGEI has been discontinued Vac-Pac medial. Accordion to epigastric drain with purulent white drainage. Renal/: Acute kidney injury History BPH Status post bilateral ureteral stents placed by Dr. Fraser 08/18 -Monitor renal function closely. Mg catheter. -IV fluids discontinued in view of anuric renal failure and hyperkalemia necessitating hemodialysis. Nephrology consulted and following. -Attempt maintaining even to slightly negative fluid balance. New right IJ hemodialysis catheter placed 09/01 -> D/C 09/13. New right femoral hemodialysis catheter placed 09/13 ID: Anastomotic leak Sepsis Probable HCAP -IV vancomycin, Flagyl and Levaquin per Dr. Moffett. Levaquin discontinued . Zosyn started 09/02- 09/16. Flagyl and micafungin per ID added. Merrem added 09/15 Pertinent culture 09/13 - bronchial -Pseudomonas 09.13 - abdomen abscess -Pseudomonas/yeast 09/01: Abdominal wound - Pseudomonas, enterococcus, Iram 08/31 - line culture Pseudomonas/coag negative staph 08/31 - blood cultures 2 -no growth 08/31 - sputum - pending 08/29 - wound - Pseudomonas, group D enterococcus, C. albicans and yeast 08/25 blood cultures - no growth 08/25 sputum - Serratia/Klebsiella/Pseudomonas 08/24 - wound - no growth HEME: Leukocytosis Normocytic anemia Thrombocytosis RIJ DVT (nonocclusive) -Monitor CBC, CMP, coags - On anticoagulation with heparin (for right IJ nonocclusive thrombus/ left cephalic vein) which is on hold for tracheostomy. ENDO: -Sliding-scale insulin for glycemic control. 0 units sliding scale past 24 hours. Levemir 20 units twice a day currently on hold as nothing by mouth for drain placement yesterday. FEN: Hyperphosphatemia Continue PhosLo 667 mg 3 times a day for hyperphosphatemia. Hemodialysis done on 09/17 PROPH: -Bilateral lower extremity SCDs. Heparin gtt for RIJ DVT (held 09/18 for scheduled trach). Protonix for GI prophylaxis LINES: -Left subclavian central line placed in the OR 08/24 - 08/31. Right subclavian central line placed 08/31 - 09/11 - RIJ dialysis catheter 08/25 -08/31. New right IJ hemodialysis catheter 09/01 - - Right femoral hemodialysis catheter 09/13 Critical Care: The total critical care time was 40 minutes. Time to perform other separately billable procedures was not included in the critical care time. Satya Quarles MD Sep 18, 2016 08:05
[2016-09-18] MEDS: SODIUM CHLORIDE 0.9% FLUSH 5 ML FLUSH IVF SCH ×2 (09:00→20:40)
[2016-09-18] MEDS: CALCIUM ACETATE 667 MG CAP PO SCH ×3 (09:00→17:17)
[2016-09-18] MEDS: RESP: BUDESONIDE 0.5 MG/2 ML NEB NEB SCH ×2 (09:06→19:27)
[2016-09-18 09:08] LABS: APTT (PATIENT) 36.8 SEC (24.3-30.1)
[2016-09-18] MEDS: RESP: ACETYLCYSTEINE 10% 30 ML NEB NEB SCH ×3 (09:08→23:22)
[2016-09-18] MEDS: PANTOPRAZOLE SODIUM 40 MG VIAL IVP SCH (09:58)
[2016-09-18] MEDS: MUPIROCIN 2% OINT 1 APPLIC/GM SYR EACH NARE SCH ×2 (09:58→20:40)
[2016-09-18] MEDS: fentaNYL 2,500 MCG/NS 250 ML IV SCH ×2 (10:17→20:41)
[2016-09-18] MEDS: CHLORHEXIDINE 0.12% (ORAL KIT) 15 ML CUP MT SCH ×2 (10:21→20:40)
--- NOTE | 2016-09-18 11:42 | HHI.NPPN ---
Subjective General Problems: Edema Renal Failure: Acute Interval History Seen during dialysis. To have trach/peg today. Vascath flow is sluggish. ( Fransisca Canela) Review of Systems General General Remarks unable to evaluate (Fransisca Canela) Objective Data Data 09/17/16 09/18/16 19:00 07:00 Intake Total 1341 ml 3696 ml Output Total 240 ml 1215 ml Balance 1101 ml 2481 ml Intake Oral 0 ml IV Total 432 ml 3125 ml Tube Feeding 436 ml 451 ml Other 473 ml 120 ml Output Urine Total 0 ml Stool Total 200 ml 1150 ml Drainage Total 40 ml 65 ml Vital Signs Date Time Temp Pulse Resp B/P Pulse Ox O2 Delivery O2 Flow Rate FiO2 09/18/16 08:58 99 40 09/18/16 06:00 99 09/18/16 04:00 100.9 74 17 135/61 97 09/18/16 04:00 40 09/18/16 04:00 87 09/18/16 03:36 99 40 09/18/16 02:00 87 09/18/16 00:00 87 09/18/16 00:00 40 09/18/16 00:00 99.9 87 22 104/58 99 09/17/16 22:56 99 40 09/17/16 22:00 88 09/17/16 20:00 40 09/17/16 20:00 100.4 98 22 132/70 99 09/17/16 20:00 98 09/17/16 19:14 100 40 09/17/16 18:00 89 09/17/16 16:00 101.5 90 22 75/49 97 09/17/16 16:00 89 09/17/16 16:00 40 09/17/16 15:36 96 40 09/17/16 14:00 104 09/17/16 13:09 97 40 09/17/16 12:00 111 09/17/16 12:00 100.7 126 22 150/82 95 09/17/16 12:00 40 (Fransisca Canela) -: 09/18/16 0314 09/18/16 0314 Microbiology 09/17/16 Aerobic Blood Culture - Preliminary, Resulted NO GROWTH IN 1 DAY 09/17/16 Anaerobic Blood Culture - Preliminary, Resulted NO GROWTH IN 1 DAY 09/17/16 Gram Stain - Final, Resulted 09/17/16 Sputum Culture, Resulted Pending 09/17/16 Stool Occult Blood (KYUNG) - Final, Complete HEMOCCULT POSITIVE Imaging Last Impressions Chest X-Ray 09/18/16 0600 Signed Impressions: Service Date/Time: Sunday, September 18, 2016 04:33 - CONCLUSION: Stable bilateral patchy densities greater throughout the right lung. Jony Miller MD Upper Extremity Ultrasound 09/17/16 0000 Signed Impressions: Service Date/Time: Saturday, September 17, 2016 16:48 - CONCLUSION: 1. Positive nonocclusive deep venous thrombosis right internal jugular vein. 2. Nonocclusive superficial thrombosis in the left cephalic vein. Miki Banerjee MD Lower Extremity Ultrasound 09/17/16 0000 Signed Impressions: Service Date/Time: Saturday, September 17, 2016 17:33 - CONCLUSION: Normal examination. Miki Banerjee MD Head CT 09/17/16 0000 Signed Impressions: Service Date/Time: Saturday, September 17, 2016 20:47 - CONCLUSION: 1. No acute intracranial abnormalities. Miki Banerjee MD Chest CT 09/17/16 0000 Signed Impressions: Service Date/Time: Saturday, September 17, 2016 20:46 - CONCLUSION: 1. Multifocal airspace consolidation in the lungs, right greater than left most characteristic of bronchopneumonia. There is underlying mild to moderate emphysema. Small effusions. Miki Banerjee MD Abdomen/Pelvis CT 09/17/16 0000 Signed Impressions: Service Date/Time: Saturday, September 17, 2016 20:50 - CONCLUSION: 1. Interval placement of drain in upper abdomen anteriorly with decrease in size of fluid collection as above. No new fluid collections within the abdomen and pelvis. 2. Right lower quadrant drain remains. Previous left drain has been removed. NG coiled in stomach. Miki Banerjee MD Abscess Drainage CT 09/13/16 0000 Signed Impressions: Service Date/Time: Tuesday, September 13, 2016 14:30 - CONCLUSION: Uncomplicated CT guided drainage. Carlo Cortes MD Retroperitoneal Abscess Drainage 09/01/16 0600 Signed Impressions: Service Date/Time: Thursday, September 01, 2016 13:05 - CONCLUSION: Uncomplicated CT guided drainage of a right lower quadrant fluid collection. Approximately 75 cc of fecal-like brown material was aspirated. The air and fluid collection may communicate with the inferior aspect of the midline wound on the anterior abdominal wall. Claude Carrasco MD Abdomen X-Ray 08/24/16 0000 Signed Impressions: Service Date/Time: August 07:44 - CONCLUSION: Gaseous distention of multiple bowel loops possible ileus. Jony Miller MD Enema w/Water Soluble 08/23/16 0000 Signed Impressions: Service Date/Time: Tuesday, August 23, 2016 10:12 - CONCLUSION: Anastomosis appears patent without extravasation. Aditya Rocha MD FACR CT Angiography 08/21/16 0000 Signed Impressions: Service Date/Time: Sunday, August 21, 2016 14:05 - CONCLUSION: 1. There is no evidence for central pulmonary emboli. 2. Minimal subcutaneous air as well as free intraperitoneal air. Aditya Rocha MD FACR Tubes & Lines: Vas-Cath Tubes & Lines Comment TLC, OG tube SERGEI drain RLQ epigastric drain wound vac lower abdomen Drip Comment fentanyl, propofol , versed (Fransisca Canela B. PADDER CUSHION) Physical Exam General Appearance: No Acute Distress Appearance Remarks intubated, sedated, awakens to stimuli (Fransisca Canela B. PADDER CUSHION) Throat Throat Exam: Oral Mucosa [place] & Moist (Fransisca Canela B. PADDER CUSHION) Pulmonary Resp Exam: Breath Sounds Equal, No Distress, Crackles, Sputum, Diminished Breath Sounds Resp Remarks vented, increased secretions (Fransisca Canela B. PADDER CUSHION) Cardiology CV Exam: Regular, Normal Sinus Rhythm (Fransisca Canela B. PADDER CUSHION) Gastrointestinal/Abdomen GI Exam: Distended GI Remarks distended, firm; colostomy with red stoma; hyperactive bowel sounds (Fransisca Canela B. PADDER CUSHION) Musculoskeletal MS Exam: Joints Intact, Normal Tone (Fransisca Canela B. PADDER CUSHION) Integumentary Skin Exam: Warm, Dry Skin Remarks below umbilicus, midabdominal wound has dehisced (Fransisca Canela. PADDER CUSHION) Extremeties Extremities Exam: No Edema, Pedal Pulses Palpable (Fransisca Canela B. PADDER CUSHION) Neurologic Neuro Exam: Obtunded, Unresponsive, Sedated (Fransisca Canela) VTE Prophylaxis Device: SCDs (Fransisca Canela) Assessment/Plan Discussed Condition With: Relative Assessment Summary: VIRIDIANA/Acute Renal Failure, Acute Tubular Necrosis, Fluid/ Volume Overload Problem List: (1) Acute renal failure Plan: He has developed ATN due to sepsis. seen during dialysis today on a 2K, 250 BFR, goal 2L daily HD except for Sundays, he is anuric and highly catabolic vascath in rt groin currently, we discussed with Dr. Quarles who will attempt to exchange it while/after trach placement anuric, monitor for changes Avoid nephrotoxic agents. Avoid IVF specifically LR. continue Calcium acetate for hyperphosphatemia. daily renal panel, recheck K tomorrow (2) Diverticulitis Plan: with sepsis s/p colon resection with complications surgery following. he has multiple drains and wound vac due to wound dehiscence multiple positive cultures of wound, catheter tip, and sputum ID following, managing antibiotics. He is on meropenem and Zosyn. s/p bronchoscopy on 09/13. due for trach/peg today (Fransisca Canela) Plan patient was seen and examined. Agree with above assessment and plan. I discussed with Dr Quarles about changing Vascath. He is anuric, needs continued dialysis support. Prognosis is guarded. Tracheostomy is planned. (Tito Kuo MD) Problem Qualifiers (1) Acute renal failure: Qualified Code: N17.0 - Acute renal failure with tubular necrosis Fransisca Canela Sep 18, 2016 11:41 Tito Kuo MD Sep 19, 2016 14:34
--- NOTE | 2016-09-18 12:01 | HHI.IDPN ---
Note Infectious Disease Note Notes reviewed. Discussed with RN. Patient is on the vent. Dialysis just completed for today. Sedated. Temp elevated. WBC elevated. Trach planned today. Has R. femoral dialysis catheter - 10 days old. Bronch culture from 09/13 has pseudomonas. Abscess fluid 09/13 has pseudomonas. PAST MEDICAL HISTORY 1. Diverticulitis. 2. COPD. 3. Hypertension. 4. Anxiety disorder. 5. BPH. 6. History of tonsillectomy. ALLERGIES No known drug allergies. ANTIBIOTICS 1. Micafungin. 2. Meropenem. 3. Vancomycin periodic. OBJECTIVE: Vital Signs Date Time Temp Pulse Resp B/P Pulse Ox O2 Delivery O2 Flow Rate FiO2 09/18/16 08:58 99 40 09/18/16 06:00 99 09/18/16 04:00 100.9 74 17 135/61 97 09/18/16 04:00 40 09/18/16 04:00 87 09/18/16 03:36 99 40 09/18/16 02:00 87 09/18/16 00:00 87 09/18/16 00:00 40 09/18/16 00:00 99.9 87 22 104/58 99 09/17/16 22:56 99 40 09/17/16 22:00 88 09/17/16 20:00 40 09/17/16 20:00 100.4 98 22 132/70 99 09/17/16 20:00 98 09/17/16 19:14 100 40 09/17/16 18:00 89 09/17/16 16:00 101.5 90 22 75/49 97 09/17/16 16:00 89 09/17/16 16:00 40 09/17/16 15:36 96 40 09/17/16 14:00 104 09/17/16 13:09 97 40 09/17/16 12:00 111 09/17/16 12:00 100.7 126 22 150/82 95 09/17/16 12:00 40 09/17/16 09/17/16 09/18/16 15:00 23:00 07:00 Intake Total 1341 ml 3390 ml 306 ml Output Total 240 ml 790 ml 425 ml Balance 1101 ml 2600 ml -119 ml Intake Oral 0 ml IV Total 432 ml 2819 ml 306 ml Tube Feeding 436 ml 451 ml Other 473 ml 120 ml Output Urine Total 0 ml Stool Total 200 ml 750 ml 400 ml Drainage Total 40 ml 40 ml 25 ml Laboratory Tests Test 09/17/16 09/17/16 09/18/16 07:27 17:30 03:14 White Blood Count 28.6 TH/MM3 23.2 TH/MM3 21.4 TH/MM3 Red Blood Count 3.53 MIL/MM3 3.00 MIL/MM3 3.02 MIL/MM3 Hemoglobin 9.9 GM/DL 8.3 GM/DL 8.4 GM/DL Hematocrit 30.4 % 25.8 % 25.9 % Mean Corpuscular Volume 86.0 FL 86.3 FL 85.9 FL Mean Corpuscular Hemoglobin 28.1 PG 27.8 PG 27.8 PG Mean Corpuscular Hemoglobin 32.7 % 32.2 % 32.3 % Concent Red Cell Distribution Width 15.3 % 15.4 % 15.5 % Platelet Count 427 TH/MM3 405 TH/MM3 369 TH/MM3 Mean Platelet Volume 8.1 FL 8.2 FL 8.0 FL Neutrophils (%) (Auto) 74.7 % 73.6 % Lymphocytes (%) (Auto) 9.5 % 10.3 % Monocytes (%) (Auto) 12.0 % 10.8 % Eosinophils (%) (Auto) 3.0 % 4.4 % Basophils (%) (Auto) 0.8 % 0.9 % Neutrophils # (Auto) 21.4 TH/MM3 15.8 TH/MM3 Lymphocytes # (Auto) 2.7 TH/MM3 2.2 TH/MM3 Monocytes # (Auto) 3.4 TH/MM3 2.3 TH/MM3 Eosinophils # (Auto) 0.8 TH/MM3 0.9 TH/MM3 Basophils # (Auto) 0.2 TH/MM3 0.2 TH/MM3 CBC Comment AUTO DIFF AUTO DIFF Differential Total Cells 100 Counted Neutrophils % (Manual) 64 % Band Neutrophils % 8 % Lymphocytes % 2 % Monocytes % 12 % Eosinophils % 6 % Neutrophils # (Manual) 22.9 TH/MM3 Metamyelocytes 3 % Myelocytes 5 % Differential Comment FINAL DIFF AUTO DIFF MANUAL CONFIRMED Platelet Estimate NORMAL Platelet Morphology Comment NORMAL Stomatocytes 1+ Laboratory Tests Test 09/17/16 09/18/16 04:27 03:14 Sodium Level 140 MEQ/L 142 MEQ/L Potassium Level 4.7 MEQ/L 5.4 MEQ/L Chloride Level 103 MEQ/L 106 MEQ/L Carbon Dioxide Level 27.7 MEQ/L 25.7 MEQ/L Anion Gap 9 MEQ/L 10 MEQ/L Blood Urea Nitrogen 43 MG/DL 68 MG/DL Creatinine 4.30 MG/DL 5.78 MG/DL Estimat Glomerular Filtration 14 ML/MIN 10 ML/MIN Rate Random Glucose 117 MG/DL 77 MG/DL Calcium Level 9.9 MG/DL 9.4 MG/DL Phosphorus Level 3.9 MG/DL 5.9 MG/DL Magnesium Level 2.2 MG/DL Albumin 2.6 GM/DL Microbiology Date/Time Procedure Status Source Growth 09/17/16 11:15 Aerobic Blood Culture - Preliminary Resulted Blood Peripheral NO GROWTH IN 1 DAY 09/17/16 11:15 Anaerobic Blood Culture - Preliminary Resulted Blood Peripheral NO GROWTH IN 1 DAY 09/17/16 11:45 Aerobic Blood Culture - Preliminary Resulted Blood Other NO GROWTH IN 1 DAY 09/17/16 11:45 Anaerobic Blood Culture - Preliminary Resulted Blood Other NO GROWTH IN 1 DAY 09/17/16 12:50 Gram Stain - Final Resulted Sputum Endotracheal 09/17/16 12:50 Sputum Culture Resulted Sputum Endotracheal Pending 09/17/16 17:47 Stool Occult Blood (KYUNG) - Final Complete Stool Stool HEMOCCULT POSITIVE Microbiology Date/Time Procedure Status Source Growth 09/13/16 15:03 Gram Stain - Final Resulted Abscess Abdomen 09/13/16 15:03 Wound Culture - Preliminary Resulted Gram Negative Denis 09/13/16 17:20 Gram Stain - Final Resulted Bronchial Washings Right Mid Lobe 09/13/16 17:20 Bronchial Culture - Preliminary Resulted Pseudomonas Aeruginosa 09/13/16 17:20 Acid Fast Stain Worksheet Bronchial Washings Right Mid Lobe Pending 09/13/16 17:20 Mycobacterial Culture Worksheet Bronchial Washings Right Mid Lobe Pending 09/13/16 17:20 Fungal Smear - Final Resulted Bronchial Washings Right Mid Lobe NO FUNGAL ELEMENTS SEEN. 09/13/16 17:20 Fungal Culture Resulted Bronchial Washings Right Mid Lobe Pending Microbiology Date/Time Procedure Status Source Growth 08/31/16 15:40 Wound Culture - Final Complete Catheter Tip Central Venous Line Pseudomonas Species Staph Sp Coagulase Negative 08/31/16 15:40 Fungal Culture - Final Complete Catheter Tip Central Venous Line 09/01/16 13:45 Gram Stain - Final Complete Abscess Abdomen 09/01/16 13:45 Wound Culture - Final Complete Pseudomonas Aeruginosa Enterococcus Faecalis Iram Glabrata Imaging: Chest X-Ray 09/18/16 0600 Signed Impressions: Service Date/Time: Sunday, September 18, 2016 04:33 - CONCLUSION: Stable bilateral patchy densities greater throughout the right lung. Jony Miller MD Chest X-Ray 09/17/16 0600 Signed Impressions: Service Date/Time: Saturday, September 17, 2016 04:43 - CONCLUSION: Unchanged bilateral filtrates. Evelio Hitchcock Jr., MD Upper Extremity Ultrasound 09/17/16 0000 Signed Impressions: Service Date/Time: Saturday, September 17, 2016 16:48 - CONCLUSION: 1. Positive nonocclusive deep venous thrombosis right internal jugular vein. 2. Nonocclusive superficial thrombosis in the left cephalic vein. Miki Banerjee MD Lower Extremity Ultrasound 09/17/16 0000 Signed Impressions: Service Date/Time: Saturday, September 17, 2016 17:33 - CONCLUSION: Normal examination. Miki Banerjee MD Head CT 09/17/16 0000 Signed Impressions: Service Date/Time: Saturday, September 17, 2016 20:47 - CONCLUSION: 1. No acute intracranial abnormalities. Miki Banerjee MD Chest CT 09/17/16 0000 Signed Impressions: Service Date/Time: Saturday, September 17, 2016 20:46 - CONCLUSION: 1. Multifocal airspace consolidation in the lungs, right greater than left most characteristic of bronchopneumonia. There is underlying mild to moderate emphysema. Small effusions. Miki Banerjee MD Abdomen/Pelvis CT 09/17/16 0000 Signed Impressions: Service Date/Time: Saturday, September 17, 2016 20:50 - CONCLUSION: 1. Interval placement of drain in upper abdomen anteriorly with decrease in size of fluid collection as above. No new fluid collections within the abdomen and pelvis. 2. Right lower quadrant drain remains. Previous left drain has been removed. NG coiled in stomach. Miki Banerjee MD Chest X-Ray 09/13/16 0000 Signed Impressions: Service Date/Time: Tuesday, September 13, 2016 17:34 - CONCLUSION: Worsening aeration throughout the right lung Claude Rosario MD Abscess Drainage CT 09/13/16 0000 Signed Impressions: Service Date/Time: Tuesday, September 13, 2016 14:30 - CONCLUSION: Uncomplicated CT guided drainage. Carlo Cortes MD Head CT 09/11/16 0000 Signed Impressions: Service Date/Time: Sunday, September 11, 2016 18:41 - CONCLUSION: Normal examination for a patient of this age. Dave Easton MD Abdomen/Pelvis CT 09/11/16 0000 Signed Impressions: Service Date/Time: Monday, September 12, 2016 04:12 - CONCLUSION: 1. Small bowel dilatation has resolved. 2. Postsurgical changes are identified with increase in size of epigastric fluid collection, but decreased fluid within the mesentery and right paracolic region. 3. There is no evidence for enteric contrast media extravasation. 4. Pulmonary consolidation and effusions. Romel Kohli MD Chest X-Ray 09/03/16599 Signed Impressions: Service Date/Time: Saturday, September 03, 2016 04:03 - CONCLUSION: Stable left lower lobe consolidation and right lower lung infiltrates. Evelio Boyd MD Retroperitoneal Abscess Drainage 09/01/16 06 Signed Impressions: Service Date/Time: Thursday, September 01, 2016 13:05 - CONCLUSION: Uncomplicated CT guided drainage of a right lower quadrant fluid collection. Approximately 75 cc of fecal-like brown material was aspirated. The air and fluid collection may communicate with the inferior aspect of the midline wound on the anterior abdominal wall. Claude Carrasco MD Abdomen/Pelvis CT 08/29/16 0000 Signed Impressions: Service Date/Time: Monday, August 29, 2016 17:12 - CONCLUSION: Post surgical changes following partial colon resection. Persistent pockets of fluid. Largest is located in the pelvis and contains an air-fluid level. Abscess formation cannot be excluded. Small bowel ileus Bibasilar airspace disease and pleural effusions Aakash Iqbal MD Abdomen X-Ray 08/24/16 Signed Impressions: Service Date/Time: August 07:44 - CONCLUSION: Gaseous distention of multiple bowel loops possible ileus. Jony Miller MD Enema w/Water Soluble 08/23/16 0000 Signed Impressions: Service Date/Time: Tuesday, August 23, 2016 10:12 - CONCLUSION: Anastomosis appears patent without extravasation. Aditya Rocha MD FACR CT Angiography 08/21/16 0000 Signed Impressions: Service Date/Time: Sunday, August 21, 2016 14:05 - CONCLUSION: 1. There is no evidence for central pulmonary emboli. 2. Minimal subcutaneous air as well as free intraperitoneal air. Aditya Rocha MD FACR PHYSICAL EXAMINATION GENERAL: Sedated on the ventilator. HEENT: The oropharynx is intubated. No icterus. NECK: No adenopathy or swelling. LUNGS: Bibasilar coarse rhonchi. HEART: Regular rate and rhythm. No audible murmurs, rubs or gallops. ABDOMEN: Positive bowel sounds. Wound vac in place has serous drainage. 2 Accordion abdominal drains has light chocolate colored drainage. EXTREMITIES: No clubbing or cyanosis. 1+ edema. Distal pulses 2+. SKIN: No rash. NEUROLOGIC: Unable to fully assess. IMPRESSION 1. Sepsis. Pseudomonas on CVL culture of removed line. 2. Peritonitis. Post abdominal surgery/Bowel resection - enterococcus, pseudomonas and yeast. 3. Pneumonia. Previous sputum culture showing Serratia, Klebsiella and Pseudomonas. New bronch. culture has pseudomonas. 4. Leukocytosis secondary to infection. WBC still elevated. 5. Acute renal failure. 6. Acute respiratory failure. Remains vent. dependent. 7. Thrombosis R. internal Jugular vein. 8. Fever. ? line vs intra abdominal infection. RECOMMENDATIONS 1. Continue Micafungin. 2. Continue Meropenem. 3. Follow Vancomycin levels. 4. Change Femoral catheter. 5. Resume Flagyl IV. 5. Monitor white blood cell count. 6. Monitor temps. 7. Follow cultures. D/W CCM. Tim Apodaca MD Sep 18, 2016 12:01
[2016-09-18] MEDS: amLODIPine BESYLATE 5 MG TAB PO SCH ×2 (12:21→20:40)
[2016-09-18] MEDS: MICAFUNGIN INJ 100 MG in SODIUM CHLORIDE 0.9% INJ 100 ML IV SCH (12:21)
[2016-09-18] MEDS: metroNIDAZOLE 500 MG INJ 100 ML IV SCH ×3 (12:22→23:41)
[2016-09-18] MEDS: CARVEDILOL 3.125 MG TAB PO SCH ×2 (12:22→20:40)
[2016-09-18] MEDS ORDERED: MIDAZOLAM HCL 5 MG/ML VIAL (1 ML) ONE (12:29)
[2016-09-18] MEDS ORDERED: fentaNYL CITRATE 250 MCG/5 ML AMP IV ONE (12:30)
[2016-09-18] MEDS ORDERED: MIDAZOLAM HCL 5 MG/5 ML VIAL IV ONE (12:30)
[2016-09-18] MEDS ORDERED: ROCURONIUM INJ 50 MG/5 ML VIAL IV ONE (12:30)
--- NOTE | 2016-09-18 12:47 | HHI.PR ---
Subjective Remarks POD#31 s/p robotic LAR/SBR/ANNA MARIE, POD#23 s/p ex lap, washout, diverting loop ileostomy Trach today Objective Vital Signs Date Time Temp Pulse Resp B/P Pulse Ox O2 Delivery O2 Flow Rate FiO2 09/18/16 12:29 97 40 09/18/16 08:58 99 40 09/18/16 06:00 99 09/18/16 04:00 100.9 74 17 135/61 97 09/18/16 04:00 40 09/18/16 04:00 87 09/18/16 03:36 99 40 09/18/16 02:00 87 09/18/16 00:00 87 09/18/16 00:00 40 09/18/16 00:00 99.9 87 22 104/58 99 09/17/16 22:56 99 40 09/17/16 22:00 88 09/17/16 20:00 40 09/17/16 20:00 100.4 98 22 132/70 99 09/17/16 20:00 98 09/17/16 19:14 100 40 09/17/16 18:00 89 09/17/16 16:00 101.5 90 22 75/49 97 09/17/16 16:00 89 09/17/16 16:00 40 09/17/16 15:36 96 40 09/17/16 14:00 104 09/17/16 13:09 97 40 I/O 09/17/16 09/17/16 09/17/16 09/18/16 09/18/16 09/18/16 07:00 15:00 23:00 07:00 15:00 23:00 Intake Total 735 ml 1341 ml 3390 ml 306 ml Output Total 400 ml 240 ml 790 ml 425 ml 2000 ml Balance 335 ml 1101 ml 2600 ml -119 ml -2000 ml Intake Oral 0 ml 0 ml IV Total 240 ml 432 ml 2819 ml 306 ml Tube Feeding 375 ml 436 ml 451 ml Other 120 ml 473 ml 120 ml Output Urine Total 0 ml 0 ml Stool Total 400 ml 200 ml 750 ml 400 ml Drainage Total 0 ml 40 ml 40 ml 25 ml Hemodialysis 2000 ml Result Diagram: 09/18/1631309/18/16313 Objective Remarks Abdomen soft Wounds clean [place] with slightly more drainage Assessment and Plan Assessment and Plan CV - BP stable RESP - tracheostomy today KIDNEY - still anuric,continue HD FEN - tolerating TF's ID - WBC's trending down trach today Elana Moffett MD Sep 18, 2016 12:47
[2016-09-18] MEDS ORDERED: HEPARIN SODIUM - SQ 10,000 UNITS/ML VIAL ONE ×2 (13:22→13:33)
--- NOTE | 2016-09-18 14:25 | RADRPT ---
EXAM DATE/TIME: 09/18/2016 13:47 [facility] COMPARISON: CHEST SINGLE AP, September 18, 2016, 4:33. INDICATIONS : Post intubation and vascath central line MEDICAL HISTORY : Chronic obstructive pulmonary disease. SURGICAL HISTORY : None. ENCOUNTER: Subsequent ACUITY: 3 weeks PAIN SCORE: Non-responsive. LOCATION: Bilateral chest FINDINGS: Dialysis catheter and trach tube are in good position. Nasal gastric tube is across the GE junction. Patchy air space disease is seen in both lungs. CONCLUSION: Trach tube in good position without pneumothorax. Aditya Rocha MD FACR on September 18, 2016 at 14:22 Board Certified Radiologist. This report was verified electronically.
--- NOTE | 2016-09-18 14:35 | PD.PROCEDR ---
Procedure Note Procedure Procedure fiberoptic bronchoscopy for bronchoscopy guided percutaneous tracheostomy Operators: Dr. Satya Quarles for fiberoptic bronchoscopy/ Dr. Howard for percutaneous tracheostomy Informed consent obtained from family and documented in chart Anesthesia used Versed 10 mg IV, fentanyl 200 g IV, Rocuronium 50 mg IV for neuromuscular blockade: Procedure: Patient was placed on 100% oxygen via ET tube/mechanical ventilator. After ensuring adequate sedation/analgesia/ neuromuscular blockade, fiberoptic bronchoscope was inserted via adapter on ET tube and advanced into the trachea upto the lj. Following this bronchoscope was withdrawn back to the tip of ET tube. After deflating cuff of ET tube it was withdrawn back to the 19 cm dominick. Subsequent steps of percutaneous tracheostomy were directly visualized on videomonitor via bronchoscopy including insertion of introducer catheter followed by guidewire and then insertion of tracheal dilator followed by insertion of tracheostomy tube following which bronchoscope was withdrawn out of the ET tube and was inserted down the percutaneous tracheostomy and correct placement was confirmed by visualizing tracheal rings following which bronchoscope was withdrawn. Inner cannula was placed by Dr. Howard and after inflating cuff, patient was connected to mechanical ventilation via tracheostomy tube. Bronchoscope was reinserted via ET tube and minimal amount of secretions were suctioned out from above cuff of tracheostomy tube following which bronchoscope and ET tube were withdrawn out. Patient tolerated the procedure well with no immediate complications noted. Post procedure CXR ordered and was pending. Will f/u when available. Satya Quarles MD Sep 18, 2016 14:35
--- NOTE | 2016-09-18 14:37 | PD.PROCEDR ---
Procedure Note Procedure Preop diagnosis: Acute renal failure, sepsis, peritonitis, respiratory failure Postop diagnosis: Same Informed consent: Obtained from family and documented on chart Anesthesia: 1% lidocaine for local infiltration anesthesia Procedure: Dialysis catheter placement Site: Left internal jugular vein Ultrasound guidance : Yes After sterile prepping and draping using 1% lidocaine for local infiltration anesthesia, left internal jugular vein was visualized using an ultrasound was finder and under direct visualization was cannulated using an introducer needle with dark nonpulsatile blood return. A Guidewire was passed through the introducer needle without any resistance and the needle was then removed. After making a skin neck and dilation of tract, a 25 cm dual lumen dialysis catheter was passed over the guidewire by modified seldinger's technique into the left internal jugular vein up to the 20 cm dominick and the guidewire was then removed. Good blood return obtained through both ports which were then flushed with saline and subsequently hep-locked. After suturing the catheter in place, a Bio- occlusive dressing with biopatch was applied to the site. Post procedure chest x -ray was ordered and reviewed with good placement of left IJ dialysis catheter with tip overlying SVC, no pneumothorax on postprocedure film. Patient tolerated the procedure well with no immediate complications noted. Satya Quarles MD Sep 18, 2016 14:37
[2016-09-18] MEDS: ACETAMINOPHEN 325 MG TAB PO PRN (14:38)
[2016-09-18] MEDS ORDERED: HEPARIN SODIUM - IV 10,000 UNITS/10 ML VIAL IV ONE (15:15)
[2016-09-18] MEDS: MEROPENEM INJ 500 MG in SODIUM CHLORIDE 0.9% INJ 100 ML IV SCH (16:58)
--- NOTE | 2016-09-18 18:58 | HHI.PR ---
Subjective Remarks YOAA male with robotic surgery,COPD exac Underwent exp lap,I&d and loop iliostomy placement Remains on vent On Fentanyl and Versed Had Trach and new Vascath Had HD today no fever Objective Vital Signs Vital Signs Date Time Temp Pulse Resp B/P Pulse Ox O2 Delivery O2 Flow Rate FiO2 09/18/16 18:00 100 09/18/16 16:00 100.8 95 22 111/71 100 09/18/16 16:00 40 09/18/16 15:55 100 40 09/18/16 14:00 40 09/18/16 12:45 100 100 09/18/16 12:29 97 40 09/18/16 12:00 40 09/18/16 12:00 101.3 105 22 171/101 100 09/18/16 08:58 99 40 09/18/16 08:00 100.0 94 22 160/77 100 09/18/16 08:00 40 09/18/16 06:00 99 09/18/16 04:00 100.9 74 17 135/61 97 09/18/16 04:00 40 09/18/16 04:00 87 09/18/16 03:36 99 40 09/18/16 02:00 87 09/18/16 00:00 87 09/18/16 00:00 40 09/18/16 00:00 99.9 87 22 104/58 99 09/17/16 22:56 99 40 09/17/16 22:00 88 09/17/16 20:00 40 09/17/16 20:00 100.4 98 22 132/70 99 09/17/16 20:00 98 09/17/16 19:14 100 40 I/O 09/17/16 09/17/16 09/17/16 09/18/16 09/18/16 09/18/16 07:00 15:00 23:00 07:00 15:00 23:00 Intake Total 735 ml 1341 ml 3390 ml 306 ml 30 ml Output Total 400 ml 240 ml 790 ml 425 ml 2160 ml Balance 335 ml 1101 ml 2600 ml -119 ml -2130 ml Intake Oral 0 ml 0 ml IV Total 240 ml 432 ml 2819 ml 306 ml 30 ml Tube Feeding 375 ml 436 ml 451 ml Other 120 ml 473 ml 120 ml Output Urine Total 0 ml 0 ml Stool Total 400 ml 200 ml 750 ml 400 ml 150 ml Drainage Total 0 ml 40 ml 40 ml 25 ml 10 ml Hemodialysis 2000 ml Result Diagram: 09/18/1631309/18/16313 Objective Remarks GENERAL: WBWN obese male, on Vent , sedated SKIN: Warm and dry. HEAD: Normocephalic. EYES: No scleral icterus. No injection or drainage. NECK: Supple, trachea midline. No JVD or lymphadenopathy. CARDIOVASCULAR: Regular rate and rhythm without murmurs, gallops, or rubs. RESPIRATORY: Breath sounds equal bilaterally. No accessory muscle use. exp rhonchi GASTROINTESTINAL: Abdomen soft, non-tender, Abd distended MUSCULOSKELETAL: No cyanosis, or edema. BACK: Nontender without obvious deformity. No CVA tenderness. A/P Assessment and Plan Resp Failure, on vent COPD exac S/p robotic surgery Anxiety S/p Exp lap PLAN: Cont vent support, aerosol nebs Nebuliser rx qid and prn Abx per ID Sedation with Versed and Fentanyl CPAP trial in AM Monitor Robbie Keller MD Sep 18, 2016 18:57
[2016-09-18] MEDS: PHENYTOIN SUSP 100 MG/4 ML CUP PO SCH (20:40)
[2016-09-18] MEDS: MIDAZOLAM 100 MG/ML INJ 100 ML IV SCH (20:41)
--- NOTE | 2016-09-18 21:44 | HHI.PR ---
Immediate Post Op Note Procedure Date: Sep 18, 2016 Pre Op Diagnosis: acute respiratory failure Post Op Diagnosis: same Surgeon: Brayden Howard MD Collector Of Port(s): Dr. Mahan for bronch Procedure: bedside perc trach Findings: bilateral bs, good end tidal, Complications: none Specimen(s) removed: none Anesthesia: General Drains: None Patient to: ISC Patient Condition: Critical Brayden Howard MD Sep 18, 2016 21:44
[2016-09-19] VITALS (19 sets, daily range): BP systolic 139–156; BP diastolic 72–92; PULSE 100–135; RESP 18–26; TEMP 100.9–102.6; O2SAT 97–100
[2016-09-19] MEDS: SODIUM CHLORIDE 0.9% 10 ML VIAL IV FLUSH SCH ×3 (01:30→17:30)
[2016-09-19] MEDS: ACETAMINOPHEN 325 MG TAB PO PRN ×3 (02:06→20:48)
[2016-09-19] MEDS: RESP: SODIUM CHLORIDE 3% 4 ML NEB NEB SCH ×8 (03:29→21:54)
[2016-09-19] MEDS: RESP: ALBUTEROL 2.5 MG/3 ML NEB (SCH) INH ×6 (03:30→23:38)
[2016-09-19] MEDS: metroNIDAZOLE 500 MG INJ 100 ML IV SCH ×4 (06:05→23:44)
[2016-09-19] MEDS: ARTIFICIAL TEARS OPTH SOLN 15 ML BTL EACH EYE SCH ×3 (06:05→20:50)
[2016-09-19] MEDS: cloNIDine HCL 0.1 MG TAB PO SCH ×3 (06:05→20:49)
[2016-09-19] MEDS: RESP: ACETYLCYSTEINE 10% 30 ML NEB NEB SCH ×3 (08:25→23:38)
[2016-09-19] MEDS: RESP: BUDESONIDE 0.5 MG/2 ML NEB NEB SCH ×2 (08:26→20:39)
[2016-09-19] MEDS: SODIUM CHLORIDE 0.9% FLUSH 5 ML FLUSH IVF SCH ×2 (09:00→20:49)
--- NOTE | 2016-09-19 09:30 | HHI.CCPN ---
Subjective Remarks/Hospital Course 08/25: Patient is a 58-year-old male with past medical history significant COPD who, on 08/18/16, underwent Laparoscopic robotic extensive lysis of adhesions, low anterior resection and small bowel resection. Apparently he was brought in by Dr. Moffett for Diverticulitis. Patient has a history of hypertension, COPD, and continues to smoke one pack of cigarettes a day. Postoperatively patient became progressively short of breath. Pulmonary was consulted on 08/21/16 as the patient was becoming more hypoxemic requiring BiPAP. CT of the chest PE protocol did not show any pulmonary embolism. Patient was placed on breathing treatments and IV Solu-Medrol 40 mg every [address] Renteria. Today a.m. patient was on 100% nonrebreather. Patient was diagnosed with an anastomotic leak today and was taken back to the OR by Dr. Moffett. He underwent exploratory laparotomy, I&D and loop ileostomy today. Postop patient remained hypoxemic requiring 70% oxygen, and hence was left intubated and critical care medicine was consulted. Dr. Arce evaluated the patient in ICU. He remained hypoxemic, FiO2 70%. Chest x-ray shows bibasilar mild infiltrates. On sedation lightening patient became very hypertensive, not following commands probably secondary to residual NM blockade received while being transported to ICU. Patient on receiving vancomycin Levaquin and Flagyl per Dr. Moffett. Dr. Arce added cefepime to cover for Pseudomonas. Holding Solu-Medrol due to anastomotic leak. 08/26: Remains sedated, orally intubated on mechanical ventilation. Went into anuric renal failure yesterday which did not respond to fluid boluses and diuretics hence was started on hemodialysis after placement of right IJ Vas- Cath. Currently sedated, arousable, remains orally intubated on mechanical ventilation. Blood pressure borderline last evening following dialysis for which she was started on low-dose vasopressin 0.03 units per minute and Levophed which is currently at 1 jose per minute. Started on TPN last night following which he has been hyperglycemic. 08/27: Sedated, arousable, orally intubated on mechanical ventilation. Spiking fevers overnight. Off Levophed, transiently off vasopressin. Remains on TPN. 08/28: Remains sedated, arousable, orally intubated on mechanical ventilation. On low-dose vasopressin. TPN continues. Made about 500 cc of urine in the last 24 hours. 08/29: In sedated, arousable, orally intubated on mechanical ventilation. Remains on TPN. Dirty drainage from left-sided SERGEI drain noted overnight. Dr. Moffett obtaining CT abdomen pelvis with oral contrast and ID consulted. 08/30: CURRENT TEMPERATURE 99. Status post 4 L hemodialysis today. No current change in therapy. White blood cell count remained stable. Off vasopressors. Arousable to voice. Versed has been discontinued. We'll attempt CPAP trials again today. 08/31: MAXIMUM TEMPERATURE 100.4. Currently 100.1. Currently resting in bed in no acute distress. Continues with scant drainage from bilateral JPs. We'll attempt CPAP trial again today. Positive stool from ostomy bag 09/01: Tmax 99.8. Currently 99.3. Placement of the new right IJ vas catheter today. Plan for IR to possibly drain right lower quadrant fluid collection. Arousable and moves all 4 extremity spontaneously. 09/02: Currently afebrile. Noted placement of iron drain with accordion drain. Growing Pseudomonas. Lasted only 2 hours on CPAP trials today. 09/03: Tolerated SBT for only 30 mins and required PS 20. Not ready to extubate. 09/04: Tachypnea related to anxiety? or metabolic acidosis. Will check VBG. Not tolerating SBT. Anemia. Transfuse during HD. 09/05: Remains very tachypneic on SBTs. Unable to extubate. 09/06: Leukocytosis and bandemia. Acts like ongoing sepsis. 09/07: No significant changes. Afebrile. Tolerating TFs as recommended by CRS. Will transition from TPN to enteral feeds now. 09/08: Bandemia persists. Tolerating full TFs. D/c'd TPN. Glucose control acceptable. 09/09: Tolerating longer CPAP/PS trials. 09/10: Stronger respiratory effort. Try to extubate today. 09/11: Stable hemodynamics, marginal respiratory function. 09/11 update 1800 hrs: Patient developed sudden hyperventilation to 55-60/min, hypertensive urgency to 220/120s, unresponsive state, started versed 10 mg/hr after 10 mg iv. Load with cerebyx, get head CT, EEG in a.m. 09/12: BP and pulse rate control improved with sedation. Etiology unclear. Suspected intracranial process but CT head normal. Possibly seizures. EEG pending this morning. WBC with bandemia persists. 09/13: CURRENT TEMPERATURE 99. Heart rate and blood pressure control. Noted T changes last night noted a potassium 8.2. Noted hemodialysis catheter placed by overnight peace officer in right femoral vein and hemodialysis currently undergoing. Plan for drainage of epigastric fluid collection by IR today. 09/14: Currently afebrile. Status post prior drainage of epigastric fluid area. Currently 60 ccwhite pus accordian drain. Status post bronchoscopy yesterday. 09/15 - intubation day #22. Family waiting another 24 hours to consider tracheostomy. He is not able to be extubated. Currently undergoing hemodialysis. Likely dialysis dependent. 09/16: Tmax 100.2. Blood pressure slowly trending downward. He transfuse PRBCs and albumin bolus prior to hemodialysis today. Intubation day #23. Family currently agreeable to tracheostomy but I'm unable to perform until Sunday. Positive BM. 09/17: Tmax 101. Intubation day #24. Tolerating tube feeding. Currently on Versed and fentanyl drips. 09/18: Remains sedated, orally intubated on mechanical ventilation. Scheduled for percutaneous tracheostomy today. Was dialyzed yesterday. Percutaneous drains [address] Ileostomy with good output. Wound VAC in place over anterior abdominal incision site. 09/19: Remains sedated, on mechanical ventilation via tracheostomy. Patient was noted to have some blood oozing from around tracheostomy site this morning as well as around Vas-Cath. Pressure dressing to be applied around Vas-Cath and packing around tracheostomy site and Dr. Howard informed. Objective Vital Signs Date Time Temp Pulse Resp B/P Pulse Ox O2 Delivery O2 Flow Rate FiO2 09/19/16 08:26 100 40 09/19/16 06:00 100 09/19/16 04:00 100.9 22 145/77 Intake and Output 09/18/16 09/18/16 09/19/16 08:00 16:00 00:00 Intake Total 306 ml 30 ml 395 ml Output Total 425 ml 2160 ml 25 ml Balance -119 ml -2130 ml 370 ml Result Diagram: 09/18/16 0314 09/18/16 0314 Imaging Last Impressions Chest X-Ray 09/17/16 0600 Signed Impressions: Service Date/Time: Saturday, September 17, 2016 04:43 - CONCLUSION: Unchanged bilateral filtrates. Evelio Hitchcock Jr., MD Abscess Drainage CT 09/13/16 0000 Signed Impressions: Service Date/Time: Tuesday, September 13, 2016 14:30 - CONCLUSION: Uncomplicated CT guided drainage. Carlo Cortes MD Head CT 09/11/16 0000 Signed Impressions: Service Date/Time: Sunday, September 11, 2016 18:41 - CONCLUSION: Normal examination for a patient of this age. Dave Easton MD Abdomen/Pelvis CT 09/11/16 0000 Signed Impressions: Service Date/Time: Monday, September 12, 2016 04:12 - CONCLUSION: 1. Small bowel dilatation has resolved. 2. Postsurgical changes are identified with increase in size of epigastric fluid collection, but decreased fluid within the mesentery and right paracolic region. 3. There is no evidence for enteric contrast media extravasation. 4. Pulmonary consolidation and effusions. Romel Kohli MD Retroperitoneal Abscess Drainage 09/01/16 0600 Signed Impressions: Service Date/Time: Thursday, September 01, 2016 13:05 - CONCLUSION: Uncomplicated CT guided drainage of a right lower quadrant fluid collection. Approximately 75 cc of fecal-like brown material was aspirated. The air and fluid collection may communicate with the inferior aspect of the midline wound on the anterior abdominal wall. Claude Carrasco MD Abdomen X-Ray 08/24/16 0000 Signed Impressions: Service Date/Time: August 07:44 - CONCLUSION: Gaseous distention of multiple bowel loops possible ileus. Jony Miller MD Enema w/Water Soluble 08/23/16 0000 Signed Impressions: Service Date/Time: Tuesday, August 23, 2016 10:12 - CONCLUSION: Anastomosis appears patent without extravasation. Aditya Rocha MD FACR CT Angiography 08/21/16 0000 Signed Impressions: Service Date/Time: Sunday, August 21, 2016 14:05 - CONCLUSION: 1. There is no evidence for central pulmonary emboli. 2. Minimal subcutaneous air as well as free intraperitoneal air. Aditya Rohca MD FACR Objective Remarks GENERAL: 56-year-old male, critically ill, currently on mechanical ventilation via tracheostomy SKIN: Warm. Dry. No rash HEAD: Atraumatic. Normocephalic. ENT: mucosa moist NECK: Tracheostomy in place. Bleeding around tracheostomy site earlier now with packing. Oozing from Vas-Cath site on left side of neck earlier. CARDIOVASCULAR: Tachy, IR. S1, S2. No S4. No m/c/g/r. RESPIRATORY: Mechanical ventilation, scattered rhonchi, no wheezing. GASTROINTESTINAL: Abdomen non distended. Midline incision clean and intact. BS active. Ostomy pink with brown stool. 2 accordion drain, 1 [address] and vac in place. MUSCULOSKELETAL: Extremities with Tr+ bilateral upper and lower extremity edema , well perfused. Right femoral dialysis catheter clean dry and intact with some slight bruising NEUROLOGICAL:Pupils equal round and reactive 2 mm bilaterally. Grimaces with suctioning. Date of Insertion: Aug 31, 2016 Date of Removal: Sep 12, 2016 Side: Right A/P Assessment and Plan NEURO/PSYCH: History of anxiety Acute toxic metabolic encephalopathymultifactorial Currently in Versed drip/ fentanyl drip for sedation/analgesia. Stop Versed, titrate off fentanyl as tolerated Daily sedation vacation Acetaminophen for fever Haldol 1 mg every 4 hours when necessary RASS 1-2 Ativan 0.5 mg every one hour when necessary agitation Morphine sulfate 3 milligrams IV every 3 hours when necessary pain -Daily sedation vacation, follow neuro status. -Head CT 09/11 no acute intracranial findings -EEG 09/12 revealed mild to moderate encephalopathy. No epileptiform activity. Currently on Cerebyx 300 mg liquid at night. Level 5.7 on 09/18 RESP: Acute hypoxemic respiratory failure COPD exacerbation Probable healthcare associated pneumonia -Continue ACV 22/600 0.75/8/50 Ventilator bundle -Albuterol nebs every 4 hours scheduled and when necessary duo nebs, Symbicort 2 puffs every 12 was discontinued while in ventilator. Continue Pulmicort 0.5/2 twice a day -Broad-spectrum antibiotics as below -Continue daily C Pap trials. Dr. Renteria/Pulmonary following Increase SBTs length as able. s/p tracheostomy 09/18 CV: Hypotension secondary to septic shock resolved History of hypertension -Received multiple fluid boluses on 08/25. IV fluids discontinued subsequently in view of anuria necessitating hemodialysis. Off all vasopressors -Attempt negative fluid balance with hemodialysis. Currently on clonidine 0.1 3 times a day, Norvasc 5 mg twice a day and Coreg 6.25 twice a day. Decreased Norvasc daily and Coreg 3.125 twice a day with holding parameters for all 3 blood pressure medications. Labetalol prn GI/ Nutrition: Anastomotic leak status post exploratory laparotomy, I&D, loop ileostomy 08/24/16 s/p Laparoscopic robotic extensive ANNA MARIE, robotic LAR and small bowel resection Laparoscopic robotic ANNA MARIE, robotic LAR and small bowel resection with anastomotic leak History of diverticulitis -Status post exploratory laparotomy, I&D, loop ileostomy 08/24/16 -Postoperative management per Dr. Moffett. Broad-spectrum antibiotics as below. positive ostomy output CT abdomen pelvis with oral contrast 08/29 reveal small bowel ileus. Serous fluid collection likely postoperative changes. - On Reglan to improve GI motility -Started on TPN 08/25 at 65 cc an hour with lipids daily. This is been discontinued Resumed on Glucerna 1.5 goal 60 cc an hour. Protonix for GI prophylaxis Accordion drain to right lower quadrant 09/01 by IR. Right lower quadrant SERGEI. LLQ SERGEI has been discontinued Vac-Pac medial. Accordion to epigastric drain with purulent white drainage. Renal/: Acute kidney injury History BPH Status post bilateral ureteral stents placed by Dr. Fraser 08/18 -Monitor renal function closely. Mg catheter. -IV fluids discontinued in view of anuric renal failure and hyperkalemia necessitating hemodialysis. Nephrology consulted and following. -Attempt maintaining even to slightly negative fluid balance. New right IJ hemodialysis catheter placed 09/01 -> D/C 09/13. New right femoral hemodialysis catheter placed 09/13 -> D/C 09/19 New LIJ vascath placed 09/18 ID: Anastomotic leak Sepsis Probable HCAP -IV vancomycin, Flagyl and Levaquin per Dr. Moffett. Levaquin discontinued . Zosyn started 09/02- 09/16. Flagyl and micafungin per ID added. Merrem added 09/15 Pertinent culture 09/13 - bronchial -Pseudomonas 09.13 - abdomen abscess -Pseudomonas/yeast 09/01: Abdominal wound - Pseudomonas, enterococcus, Iram 08/31 - line culture Pseudomonas/coag negative staph 08/31 - blood cultures 2 -no growth 08/31 - sputum - pending 08/29 - wound - Pseudomonas, group D enterococcus, C. albicans and yeast 08/25 blood cultures - no growth 08/25 sputum - Serratia/Klebsiella/Pseudomonas 08/24 - wound - no growth HEME: Leukocytosis Normocytic anemia Thrombocytosis RIJ DVT (nonocclusive) -Monitor CBC, CMP, coags - On anticoagulation with heparin (for right IJ nonocclusive thrombus/ left cephalic vein) which is on hold since 09/11 7 AM and continues to remain on hold following tracheostomy due to bleeding from site earlier on 09/19. ENDO: -Sliding-scale insulin for glycemic control. Levemir 20 units twice a day FEN: Hyperphosphatemia Continue PhosLo 667 mg 3 times a day for hyperphosphatemia. Hemodialysis done on 09/17 PROPH: -Bilateral lower extremity SCDs. Heparin gtt for RIJ DVT (held 09/18 for scheduled trach). Protonix for GI prophylaxis LINES: -Left subclavian central line placed in the OR 08/24 - 08/31. Right subclavian central line placed 08/31 - 09/11 - RIJ dialysis catheter 08/25 -08/31. New right IJ hemodialysis catheter 09/01 - - Right femoral hemodialysis catheter 09/13 Critical Care: The total critical care time was 40 minutes. Time to perform other separately billable procedures was not included in the critical care time. Satya Quarles MD Sep 19, 2016 09:30
[2016-09-19] MEDS: MICAFUNGIN INJ 100 MG in SODIUM CHLORIDE 0.9% INJ 100 ML IV SCH (10:12)
--- NOTE | 2016-09-19 10:13 | HHI.PR ---
Subjective Subjective Notes On vent Objective Vitals/I&O Vital Signs Date Time Temp Pulse Resp B/P Pulse Ox O2 Delivery O2 Flow Rate FiO2 09/19/16 08:26 100 40 09/19/16 06:00 100 09/19/16 04:00 100.9 22 145/77 Labs Date/Time Procedure Status Source Growth 09/17/16 17:47 Stool Occult Blood (KYUNG) - Final Complete Stool Stool HEMOCCULT POSITIVE 09/17/16 12:50 Gram Stain - Final Resulted Sputum Endotracheal 09/17/16 12:50 Sputum Culture - Preliminary Resulted Pseudomonas Aeruginosa 09/17/16 11:45 Aerobic Blood Culture - Preliminary Resulted Blood Other NO GROWTH IN 1 DAY 09/17/16 11:45 Anaerobic Blood Culture - Preliminary Resulted Blood Other NO GROWTH IN 1 DAY Cardiovascular: Regular Lungs: Clear Abdomen: Other (wound vac in place with good seal; ileostomy in place ) Extremities: No edema Narrative Exam trach with bloody drainage bloody drainage around insertion site of central line A/P Assessment and Plan 56 year old male s/p robotic assisted lap sigmoid resection with VDRF -POD1 trach placement -Surgicel placed for bleeding -Continue to monitor for bleeding Attending Statement lovenox gtt held hh stable no current bleeding patient seen and discussed with patient at bedside Attestation The exam, history, and the medical decision-making described in the above note were completed with the assistance of the mid-level provider. I reviewed and agree with the findings presented. I attest that I had a [id number] encounter with the patient on the same day, and personally performed and documented my assessment and findings in the medical record. Ashly Smiley Sep 19, 2016 10:12 rBayden Howard MD Oct 07, 2016 14:44
[2016-09-19] MEDS: CALCIUM ACETATE 667 MG CAP PO SCH ×3 (10:14→17:19)
[2016-09-19] MEDS: MUPIROCIN 2% OINT 1 APPLIC/GM SYR EACH NARE SCH ×2 (10:14→20:49)
[2016-09-19] MEDS: amLODIPine BESYLATE 5 MG TAB PO SCH ×2 (10:14→20:48)
[2016-09-19] MEDS: CARVEDILOL 3.125 MG TAB PO SCH ×2 (10:14→20:48)
[2016-09-19] MEDS: PANTOPRAZOLE SODIUM 40 MG VIAL IVP SCH (10:16)
[2016-09-19] MEDS: CHLORHEXIDINE 0.12% (ORAL KIT) 15 ML CUP MT SCH ×2 (10:17→20:00)
[2016-09-19 10:30] LABS: AUTOMATED NEUTROPHIL # 16.2 TH/MM3 (1.8-7.7); BASOPHIL # 0.2 TH/MM3 (0-0.2); EOSINOPHIL # 0.7 TH/MM3 (0-0.4); EOSINOPHIL % 3.4 % (0.0-4.0); HEMATOCRIT 28.7 % (39.0-51.0); LYMPH % 8.3 % (9.0-44.0); LYMPHOCYTE # 1.7 TH/MM3 (1.0-4.8); MEAN CELL VOLUME 85.8 FL (80.0-100.0); MEAN CORPUSCULAR HEMOGLOBIN 27.3 PG (27.0-34.0); MEAN CORPUSCULAR HGB CONC 31.8 % (32.0-36.0); MONO % 10.2 % (0.0-8.0); NEUT % 77.1 % (16.0-70.0); PLATELET COUNT 394 TH/MM3 (150-450); RED BLOOD COUNT 3.35 MIL/MM3 (4.50-5.90); RED CELL DISTRIBUTION WIDTH 15.2 % (11.6-17.2); WHITE BLOOD COUNT 21.1 TH/MM3 (4.0-11.0)
[2016-09-19 10:32] LABS: HEMO FLAGS AUTO DIFF
--- NOTE | 2016-09-19 10:40 | HHI.NPPN ---
Subjective General Problems: Edema Renal Failure: Acute Interval History Vascath exchanged yesterday. He has a trach placed. Still anuric. (Fransisca Canela) Review of Systems General General Remarks unable to evaluate (Fransisca Canela) Objective Data Data 09/18/16 09/19/16 19:00 07:00 Intake Total 30 ml 1119 ml Output Total 2160 ml 380 ml Balance -2130 ml 739 ml IV Total 30 ml 608 ml Tube Feeding 271 ml Tube Irrigant 240 ml Stool Total 150 ml 375 ml Drainage Total 10 ml 5 ml Hemodialysis 2000 ml # Voids 0 Vital Signs Date Time Temp Pulse Resp B/P Pulse Ox O2 Delivery O2 Flow Rate FiO2 09/19/16 10:00 107 09/19/16 08:26 100 40 09/19/16 08:00 101.2 105 18 156/81 97 09/19/16 08:00 106 09/19/16 08:00 40 09/19/16 06:00 100 09/19/16 04:08 100 40 09/19/16 04:00 40 09/19/16 04:00 100.9 102 22 145/77 99 09/19/16 04:00 102 09/19/16 02:00 105 09/19/16 01:08 98 40 09/19/16 00:00 101 09/19/16 00:00 40 09/19/16 00:00 100.9 101 22 139/72 98 09/18/16 22:00 98 09/18/16 20:00 100.9 103 22 117/73 100 09/18/16 20:00 40 09/18/16 20:00 103 09/18/16 19:28 100 40 09/18/16 18:00 100 09/18/16 16:00 100.8 95 22 111/71 100 09/18/16 16:00 40 09/18/16 15:55 100 40 09/18/16 14:00 40 09/18/16 12:45 100 100 09/18/16 12:29 97 40 09/18/16 12:00 40 09/18/16 12:00 101.3 105 22 171/101 100 (Fransisca Canela) -: 09/19/16 1015 09/18/16 0314 Tubes & Lines: Vas-Cath Tubes & Lines Comment trach TLC, NG tube SERGEI drain RLQ epigastric drain wound vac lower abdomen Drip Comment fentanyl, versed (Fransisca Canela) Physical Exam General Appearance: No Acute Distress Appearance Remarks intubated, sedated, awakens to stimuli (Fransisca Canela) Throat Throat Exam: Oral Mucosa [place] & Moist (Fransisca Canela) Pulmonary Resp Exam: Breath Sounds Equal, No Distress, Crackles, Sputum, Diminished Breath Sounds Resp Remarks vented, increased secretions (Fransisca Canela) Cardiology CV Exam: Regular, Normal Sinus Rhythm (Fransisca Canela) Gastrointestinal/Abdomen GI Exam: Distended GI Remarks distended, firm; colostomy with red stoma; hyperactive bowel sounds (Fransisca Canela) Musculoskeletal MS Exam: Joints Intact, Normal Tone (Fransisca Canela) Integumentary Skin Exam: Warm, Dry Skin Remarks below umbilicus, midabdominal wound has dehisced; wound vac left side of incision (Fransisca Canela) Extremeties Extremities Exam: No Edema, Pedal Pulses Palpable (Fransisca Canela) Neurologic Neuro Exam: Obtunded, Unresponsive, Sedated (Fransisca Canela) VTE Prophylaxis Device: SCDs (Fransisca Canela) Assessment/Plan Discussed Condition With: Relative Assessment Summary: VIRIDIANA/Acute Renal Failure, Acute Tubular Necrosis, Fluid/ Volume Overload Problem List: (1) Acute renal failure Plan: He has developed ATN due to sepsis. he is requiring dialy dialysis, will be done later today he is anuric and highly catabolic vascath removed from rt groin; replaced in left IJ anuric, monitor for changes Avoid nephrotoxic agents. Avoid IVF specifically LR. continue Calcium acetate for hyperphosphatemia. daily renal panel (2) Diverticulitis Plan: s/p colon resection with complications surgery following. he has multiple drains and wound vac due to wound dehiscence pseudomonas in sputum and wound ID following, managing antibiotics. He is on meropenem and Zosyn. Flagyl was added s/p trach placement 09/18 (Fransisca Canela) Problem List: (1) Acute renal failure Plan: He has developed ATN due to sepsis. he is requiring dialy dialysis, will be done later today he is anuric and highly catabolic vascath removed from rt groin; replaced in left IJ anuric, monitor for changes Avoid nephrotoxic agents. Avoid IVF specifically LR. continue Calcium acetate for hyperphosphatemia. daily renal panel (2) Diverticulitis Plan: s/p colon resection with complications surgery following. he has multiple drains and wound vac due to wound dehiscence pseudomonas in sputum and wound ID following, managing antibiotics. He is on meropenem and Zosyn. Flagyl was added s/p trach placement 09/18 Plan patient was seen and examined. Anuric. Has a new left IJ Vascath. Dialysis is planned for today. (Tito Kuo MD) Problem Qualifiers (1) Acute renal failure: Qualified Code: N17.0 - Acute renal failure with tubular necrosis Fransisca Canela Sep 19, 2016 10:40 Tito Kuo MD Sep 19, 2016 14:48
[2016-09-19 11:02] LABS: ALKALINE PHOSPHATASE 418 U/L (45-117); ALT (GPT) 23 U/L (12-78); ANION GAP 9 MEQ/L (5-15); AST (GOT) 48 U/L (15-37); BICARBONATE 27.8 MEQ/L (21.0-32.0); BLOOD UREA NITROGEN 64 MG/DL (7-18); CHLORIDE 101 MEQ/L (98-107); GLOMERULAR FILTRATION RATE 10 ML/MIN (>89); MAGNESIUM 2.2 MG/DL (1.5-2.5); POTASSIUM 5.4 MEQ/L (3.5-5.1); SODIUM (NA) 138 MEQ/L (136-145); TOTAL BILIRUBIN ADULT 1.2 MG/DL (0.2-1.0)
[2016-09-19 11:10] LABS: BANDS 15 % (0-6); BASOPHILS 2 % (0-2); CORRECTED NUCLEATED RBC 1 /100 WBC (0-0); EOSINOPHILS 6 % (0-4); METAMYELOCYTES 4 % (0-1); MYELOCYTES 3 % (0-0); NEUTROPHIL # MANUAL DIFF 16.5 TH/MM3 (1.8-7.7); POLYS (SEG NEUTROPHILS) 56 % (16-70); WBC DIFF SAMPLE 100
[2016-09-19 11:11] LABS: PLATELET ESTIMATE SMEAR HIGH (NORMAL)
[2016-09-19 11:12] LABS: PLATELET MORPHOLOGY NORMAL (NORMAL)
[2016-09-19 11:13] LABS: SCAN/DIFF FINAL DIFF MANUAL
[2016-09-19] MEDS ORDERED: LABETALOL HCL 100 MG/20 ML VIAL IV ONE (11:45)
--- NOTE | 2016-09-19 15:52 | HHI.IDPN ---
Note Infectious Disease Note Discussed with RN. Patient is on the vent. Dialysis in progress. Sedated. Temp 101. WBC remain elevated. Post trach 09/18. LIJ dialysis catheter placed. New sputum culture has pseudomonas. Bronch culture from 09/13 has pseudomonas. Abscess fluid 09/13 has pseudomonas. PAST MEDICAL HISTORY 1. Diverticulitis. 2. COPD. 3. Hypertension. 4. Anxiety disorder. 5. BPH. 6. History of tonsillectomy. ALLERGIES No known drug allergies. ANTIBIOTICS 1. Micafungin. 2. Meropenem. 3. Vancomycin periodic. 4. Flagyl. OBJECTIVE: Vital Signs Date Time Temp Pulse Resp B/P Pulse Ox O2 Delivery O2 Flow Rate FiO2 09/19/16 14:00 122 09/19/16 12:56 100 40 09/19/16 12:00 103 09/19/16 12:00 101.1 103 18 143/73 100 09/19/16 12:00 40 09/19/16 10:00 107 09/19/16 08:30 40 09/19/16 08:26 100 40 09/19/16 08:00 101.2 105 18 156/81 97 09/19/16 08:00 106 09/19/16 08:00 40 09/19/16 06:00 100 09/19/16 04:08 100 40 09/19/16 04:00 40 09/19/16 04:00 100.9 102 22 145/77 99 09/19/16 04:00 102 09/19/16 02:00 105 09/19/16 01:08 98 40 09/19/16 00:00 101 09/19/16 00:00 40 09/19/16 00:00 100.9 101 22 139/72 98 09/18/16 22:00 98 09/18/16 20:00 100.9 103 22 117/73 100 09/18/16 20:00 40 09/18/16 20:00 103 09/18/16 19:28 100 40 09/18/16 18:00 100 09/18/16 16:00 100.8 95 22 111/71 100 09/18/16 16:00 40 09/18/16 15:55 100 40 09/18/16 09/18/16 09/19/16 15:00 23:00 07:00 Intake Total 30 ml 395 ml 724 ml Output Total 2160 ml 25 ml 355 ml Balance -2130 ml 370 ml 369 ml IV Total 30 ml 222 ml 386 ml Tube Feeding 83 ml 188 ml Tube Irrigant 90 ml 150 ml Stool Total 150 ml 25 ml 350 ml Drainage Total 10 ml 0 ml 5 ml Hemodialysis 2000 ml # Voids 0 0 Laboratory Tests Test 09/17/16 09/18/16 09/19/16 17:30 03:14 10:15 White Blood Count 23.2 TH/MM3 21.4 TH/MM3 21.1 TH/MM3 Red Blood Count 3.00 MIL/MM3 3.02 MIL/MM3 3.35 MIL/MM3 Hemoglobin 8.3 GM/DL 8.4 GM/DL 9.1 GM/DL Hematocrit 25.8 % 25.9 % 28.7 % Mean Corpuscular Volume 86.3 FL 85.9 FL 85.8 FL Mean Corpuscular Hemoglobin 27.8 PG 27.8 PG 27.3 PG Mean Corpuscular Hemoglobin 32.2 % 32.3 % 31.8 % Concent Red Cell Distribution Width 15.4 % 15.5 % 15.2 % Platelet Count 405 TH/MM3 369 TH/MM3 394 TH/MM3 Mean Platelet Volume 8.2 FL 8.0 FL 8.1 FL Neutrophils (%) (Auto) 73.6 % 77.1 % Lymphocytes (%) (Auto) 10.3 % 8.3 % Monocytes (%) (Auto) 10.8 % 10.2 % Eosinophils (%) (Auto) 4.4 % 3.4 % Basophils (%) (Auto) 0.9 % 1.0 % Neutrophils # (Auto) 15.8 TH/MM3 16.2 TH/MM3 Lymphocytes # (Auto) 2.2 TH/MM3 1.7 TH/MM3 Monocytes # (Auto) 2.3 TH/MM3 2.2 TH/MM3 Eosinophils # (Auto) 0.9 TH/MM3 0.7 TH/MM3 Basophils # (Auto) 0.2 TH/MM3 0.2 TH/MM3 CBC Comment AUTO DIFF AUTO DIFF Differential Comment AUTO DIFF FINAL DIFF CONFIRMED MANUAL Differential Total Cells 100 Counted Neutrophils % (Manual) 56 % Band Neutrophils % 15 % Lymphocytes % 5 % Monocytes % 9 % Eosinophils % 6 % Basophils % 2 % Neutrophils # (Manual) 16.5 TH/MM3 Metamyelocytes 4 % Myelocytes 3 % Nucleated Red Blood Cells 1 /100 WBC Platelet Estimate HIGH Platelet Morphology Comment NORMAL Laboratory Tests Test 09/18/16 09/19/16 03:14 10:15 Sodium Level 142 MEQ/L 138 MEQ/L Potassium Level 5.4 MEQ/L 5.4 MEQ/L Chloride Level 106 MEQ/L 101 MEQ/L Carbon Dioxide Level 25.7 MEQ/L 27.8 MEQ/L Anion Gap 10 MEQ/L 9 MEQ/L Blood Urea Nitrogen 68 MG/DL 64 MG/DL Creatinine 5.78 MG/DL 5.63 MG/DL Estimat Glomerular Filtration 10 ML/MIN 10 ML/MIN Rate Random Glucose 77 MG/DL 101 MG/DL Calcium Level 9.4 MG/DL 9.6 MG/DL Phosphorus Level 5.9 MG/DL 7.3 MG/DL Albumin 2.6 GM/DL 2.5 GM/DL Magnesium Level 2.2 MG/DL Total Bilirubin 1.2 MG/DL Aspartate Amino Transf 48 U/L (AST/SGOT) Alanine Aminotransferase 23 U/L (ALT/SGPT) Alkaline Phosphatase 418 U/L Total Protein 8.4 GM/DL Microbiology Date/Time Procedure Status Source Growth 09/17/16 11:15 Aerobic Blood Culture - Preliminary Resulted Blood Peripheral NO GROWTH IN 2 DAYS 09/17/16 11:15 Anaerobic Blood Culture - Preliminary Resulted Blood Peripheral NO GROWTH IN 2 DAYS 09/17/16 11:45 Aerobic Blood Culture - Preliminary Resulted Blood Other NO GROWTH IN 2 DAYS 09/17/16 11:45 Anaerobic Blood Culture - Preliminary Resulted Blood Other NO GROWTH IN 2 DAYS 09/17/16 12:50 Gram Stain - Final Resulted Sputum Endotracheal 09/17/16 12:50 Sputum Culture - Preliminary Resulted Pseudomonas Aeruginosa 09/17/16 17:47 Stool Occult Blood (KYUNG) - Final Complete Stool Stool HEMOCCULT POSITIVE Microbiology Date/Time Procedure Status Source Growth 09/13/16 15:03 Gram Stain - Final Resulted Abscess Abdomen 09/13/16 15:03 Wound Culture - Preliminary Resulted Gram Negative Denis 09/13/16 17:20 Gram Stain - Final Resulted Bronchial Washings Right Mid Lobe 09/13/16 17:20 Bronchial Culture - Preliminary Resulted Pseudomonas Aeruginosa 09/13/16 17:20 Acid Fast Stain Worksheet Bronchial Washings Right Mid Lobe Pending 09/13/16 17:20 Mycobacterial Culture Worksheet Bronchial Washings Right Mid Lobe Pending 09/13/16 17:20 Fungal Smear - Final Resulted Bronchial Washings Right Mid Lobe NO FUNGAL ELEMENTS SEEN. 09/13/16 17:20 Fungal Culture Resulted Bronchial Washings Right Mid Lobe Pending Microbiology Date/Time Procedure Status Source Growth 08/31/16 15:40 Wound Culture - Final Complete Catheter Tip Central Venous Line Pseudomonas Species Staph Sp Coagulase Negative 08/31/16 15:40 Fungal Culture - Final Complete Catheter Tip Central Venous Line 09/01/16 13:45 Gram Stain - Final Complete Abscess Abdomen 09/01/16 13:45 Wound Culture - Final Complete Pseudomonas Aeruginosa Enterococcus Faecalis Iram Glabrata Imaging: Chest X-Ray 09/18/16 06 Signed Impressions: Service Date/Time: Sunday, September 18, 2016 04:33 - CONCLUSION: Stable bilateral patchy densities greater throughout the right lung. Jony Miller MD Chest X-Ray 09/17/16 06 Signed Impressions: Service Date/Time: Saturday, September 17, 2016 04:43 - CONCLUSION: Unchanged bilateral filtrates. Evelio Hitchcock Jr., MD Upper Extremity Ultrasound 09/17/16 0000 Signed Impressions: Service Date/Time: Saturday, September 17, 2016 16:48 - CONCLUSION: 1. Positive nonocclusive deep venous thrombosis right internal jugular vein. 2. Nonocclusive superficial thrombosis in the left cephalic vein. Miki Banerjee MD Lower Extremity Ultrasound 09/17/16 0000 Signed Impressions: Service Date/Time: Saturday, September 17, 2016 17:33 - CONCLUSION: Normal examination. Miki Banerjee MD Head CT 09/17/16 0000 Signed Impressions: Service Date/Time: Saturday, September 17, 2016 20:47 - CONCLUSION: 1. No acute intracranial abnormalities. Miki Banerjee MD Chest CT 09/17/16 0000 Signed Impressions: Service Date/Time: Saturday, September 17, 2016 20:46 - CONCLUSION: 1. Multifocal airspace consolidation in the lungs, right greater than left most characteristic of bronchopneumonia. There is underlying mild to moderate emphysema. Small effusions. Miki Banerjee MD Abdomen/Pelvis CT 09/17/16 0000 Signed Impressions: Service Date/Time: Saturday, September 17, 2016 20:50 - CONCLUSION: 1. Interval placement of drain in upper abdomen anteriorly with decrease in size of fluid collection as above. No new fluid collections within the abdomen and pelvis. 2. Right lower quadrant drain remains. Previous left drain has been removed. NG coiled in stomach. Miki Banerjee MD Head CT 09/11/16 0000 Signed Impressions: Service Date/Time: Sunday, September 11, 2016 18:41 - CONCLUSION: Normal examination for a patient of this age. Dave Easton MD Abdomen/Pelvis CT 09/11/16 0000 Signed Impressions: Service Date/Time: Monday, September 12, 2016 04:12 - CONCLUSION: 1. Small bowel dilatation has resolved. 2. Postsurgical changes are identified with increase in size of epigastric fluid collection, but decreased fluid within the mesentery and right paracolic region. 3. There is no evidence for enteric contrast media extravasation. 4. Pulmonary consolidation and effusions. Romel Kohli MD Chest X-Ray 09/03/16 0600 Signed Impressions: Service Date/Time: Saturday, September 03, 2016 04:03 - CONCLUSION: Stable left lower lobe consolidation and right lower lung infiltrates. Evelio Boyd MD Retroperitoneal Abscess Drainage 09/01/16 0600 Signed Impressions: Service Date/Time: Thursday, September 01, 2016 13:05 - CONCLUSION: Uncomplicated CT guided drainage of a right lower quadrant fluid collection. Approximately 75 cc of fecal-like brown material was aspirated. The air and fluid collection may communicate with the inferior aspect of the midline wound on the anterior abdominal wall. Claude Carrasco MD Abdomen/Pelvis CT 08/29/16 0000 Signed Impressions: Service Date/Time: Monday, August 29, 2016 17:12 - CONCLUSION: Post surgical changes following partial colon resection. Persistent pockets of fluid. Largest is located in the pelvis and contains an air-fluid level. Abscess formation cannot be excluded. Small bowel ileus Bibasilar airspace disease and pleural effusions Aakash Iqbal MD Abdomen X-Ray 08/24/16 0000 Signed Impressions: Service Date/Time: August 07:44 - CONCLUSION: Gaseous distention of multiple bowel loops possible ileus. Jony Miller MD Enema w/Water Soluble 08/23/16 0000 Signed Impressions: Service Date/Time: Tuesday, August 23, 2016 10:12 - CONCLUSION: Anastomosis appears patent without extravasation. Aditya Rocha MD FACR CT Angiography 08/21/16 0000 Signed Impressions: Service Date/Time: Sunday, August 21, 2016 14:05 - CONCLUSION: 1. There is no evidence for central pulmonary emboli. 2. Minimal subcutaneous air as well as free intraperitoneal air. Aditya Rocha MD FACR PHYSICAL EXAMINATION GENERAL: Sedated on the ventilator. Awakens. HEENT: No icterus. Trach in place. NECK: No adenopathy or swelling. LUNGS: Bibasilar coarse rhonchi. HEART: Regular rate and rhythm. No audible murmurs, rubs or gallops. ABDOMEN: Positive bowel sounds. Wound vac in place has serous drainage. 2 Accordion abdominal drains has light chocolate colored drainage. EXTREMITIES: No clubbing or cyanosis. tr. edema. Distal pulses 2+. SKIN: No rash. NEUROLOGIC: Unable to fully assess. IMPRESSION 1. Sepsis. Pseudomonas on CVL culture of removed line. 2. Peritonitis. Post abdominal surgery/Bowel resection - enterococcus, pseudomonas and yeast. 3. Pneumonia. Previous sputum culture showing Serratia, Klebsiella and Pseudomonas. New sputum culture has pseudomonas. 4. Leukocytosis secondary to infection. WBC still elevated. 5. Acute renal failure. 6. Acute respiratory failure. Remains vent. dependent. 7. Thrombosis R. internal Jugular vein. 8. Fever. ? line vs intra abdominal infection vs PNA. RECOMMENDATIONS 1. Continue Micafungin. 2. Continue Meropenem. 3. Follow Vancomycin levels. 4. Change Femoral catheter. 5. Resume Flagyl IV. 5. Monitor white blood cell count. 6. Monitor temps. 7. Monitor sensitivity if the pseudomonas. Tim Apodaca MD Sep 19, 2016 15:52
[2016-09-19] MEDS: GENTAMICIN SULFATE (DIALYSIS USE ONLY) 20 MG/2 ML VIAL IV PRN (16:37)
[2016-09-19] MEDS: MEROPENEM INJ 500 MG in SODIUM CHLORIDE 0.9% INJ 100 ML IV SCH (17:20)
--- NOTE | 2016-09-19 17:27 | HHI.PR ---
Subjective Remarks YOAA male with robotic surgery,COPD exac Underwent exp lap,I&d and loop iliostomy placement Remains on vent Had Trach and new Vascath Had HD today no fever Had ozzing from trach and vascath site, improved Off Versed Objective Vital Signs Vital Signs Date Time Temp Pulse Resp B/P Pulse Ox O2 Delivery O2 Flow Rate FiO2 09/19/16 16:00 102.2 132 26 155/83 100 09/19/16 16:00 135 09/19/16 16:00 40 09/19/16 14:00 122 09/19/16 12:56 100 40 09/19/16 12:00 103 09/19/16 12:00 101.1 103 18 143/73 100 09/19/16 12:00 40 09/19/16 10:00 107 09/19/16 08:30 40 09/19/16 08:26 100 40 09/19/16 08:00 101.2 105 18 156/81 97 09/19/16 08:00 106 09/19/16 08:00 40 09/19/16 06:00 100 09/19/16 04:08 100 40 09/19/16 04:00 40 09/19/16 04:00 100.9 102 22 145/77 99 09/19/16 04:00 102 09/19/16 02:00 105 09/19/16 01:08 98 40 09/19/16 00:00 101 09/19/16 00:00 40 09/19/16 00:00 100.9 101 22 139/72 98 09/18/16 22:00 98 09/18/16 20:00 100.9 103 22 117/73 100 09/18/16 20:00 40 09/18/16 20:00 103 09/18/16 19:28 100 40 09/18/16 18:00 100 I/O 09/18/16 09/18/16 09/18/16 09/19/16 09/19/16 09/19/16 07:00 15:00 23:00 07:00 15:00 23:00 Intake Total 306 ml 30 ml 395 ml 724 ml 705 ml Output Total 425 ml 2160 ml 25 ml 355 ml 600 ml 2500 ml Balance -119 ml -2130 ml 370 ml 369 ml 105 ml -2500 ml IV Total 306 ml 30 ml 222 ml 386 ml 425 ml Tube Feeding 83 ml 188 ml 280 ml Tube Irrigant 90 ml 150 ml Stool Total 400 ml 150 ml 25 ml 350 ml 550 ml Drainage Total 25 ml 10 ml 0 ml 5 ml 50 ml Hemodialysis 2000 ml 2500 ml # Voids 0 0 Result Diagram: 09/19/16 1015 09/19/16 1015 Objective Remarks GENERAL: WBWN obese male, on Vent , sedated SKIN: Warm and dry. HEAD: Normocephalic. EYES: No scleral icterus. No injection or drainage. NECK: Supple, trachea midline. No JVD or lymphadenopathy. CARDIOVASCULAR: Regular rate and rhythm without murmurs, gallops, or rubs. RESPIRATORY: Breath sounds equal bilaterally. No accessory muscle use. exp rhonchi GASTROINTESTINAL: Abdomen soft, non-tender, Abd distended MUSCULOSKELETAL: No cyanosis, or edema. BACK: Nontender without obvious deformity. No CVA tenderness. A/P Assessment and Plan Resp Failure, on vent COPD exac S/p robotic surgery Anxiety S/p Exp lap PLAN: Cont vent support, aerosol nebs Nebuliser rx qid and prn Abx per ID Meropenem,Vanco and Micafungin Sedation with Fentanyl CPAP trial in AM Monitor debbie Had HD today Robbie Renteria MD Sep 19, 2016 17:27
--- NOTE | 2016-09-19 17:53 | HHI.PR ---
Subjective Remarks POD#32 s/p robotic LAR/SBR/ANNA MARIE, POD#24 s/p ex lap, washout, diverting loop ileostomy Trach yesterday Objective Vital Signs Date Time Temp Pulse Resp B/P Pulse Ox O2 Delivery O2 Flow Rate FiO2 09/19/16 17:39 98 40 09/19/16 16:00 102.2 132 26 155/83 100 09/19/16 16:00 135 09/19/16 16:00 40 09/19/16 14:00 122 09/19/16 12:56 100 40 09/19/16 12:00 103 09/19/16 12:00 101.1 103 18 143/73 100 09/19/16 12:00 40 09/19/16 10:00 107 09/19/16 08:30 40 09/19/16 08:26 100 40 09/19/16 08:00 101.2 105 18 156/81 97 09/19/16 08:00 106 09/19/16 08:00 40 09/19/16 06:00 100 09/19/16 04:08 100 40 09/19/16 04:00 40 09/19/16 04:00 100.9 102 22 145/77 99 09/19/16 04:00 102 09/19/16 02:00 105 09/19/16 01:08 98 40 09/19/16 00:00 101 09/19/16 00:00 40 09/19/16 00:00 100.9 101 22 139/72 98 09/18/16 22:00 98 09/18/16 20:00 100.9 103 22 117/73 100 09/18/16 20:00 40 09/18/16 20:00 103 09/18/16 19:28 100 40 09/18/16 18:00 100 I/O 09/18/16 09/18/16 09/18/16 09/19/16 09/19/16 09/19/16 07:00 15:00 23:00 07:00 15:00 23:00 Intake Total 306 ml 30 ml 395 ml 724 ml 705 ml Output Total 425 ml 2160 ml 25 ml 355 ml 600 ml 2500 ml Balance -119 ml -2130 ml 370 ml 369 ml 105 ml -2500 ml IV Total 306 ml 30 ml 222 ml 386 ml 425 ml Tube Feeding 83 ml 188 ml 280 ml Tube Irrigant 90 ml 150 ml Stool Total 400 ml 150 ml 25 ml 350 ml 550 ml Drainage Total 25 ml 10 ml 0 ml 5 ml 50 ml Hemodialysis 2000 ml 2500 ml # Voids 0 0 Result Diagram: 09/19/16 1015 09/19/16 1015 Objective Remarks Abdomen soft Wounds clean Drains scant Assessment and Plan Assessment and Plan CV - BP stable RESP - tolerated CPAP this am KIDNEY - still anuric,continue HD FEN - tolerating TF's ID - Still with pseudomonas infection Still not on top of infectious process Versed off, on Fentanyl Elana Moffett MD Sep 19, 2016 17:53
[2016-09-19] MEDS: PHENYTOIN SUSP 100 MG/4 ML CUP PO SCH (20:48)
[2016-09-20] VITALS (22 sets, daily range): BP systolic 136–182; BP diastolic 81–99; PULSE 96–122; RESP 18–26; TEMP 99.9–101.5; O2SAT 97–100
[2016-09-20] MEDS: SODIUM CHLORIDE 0.9% 10 ML VIAL IV FLUSH SCH ×3 (01:30→17:30)
[2016-09-20] MEDS: ACETAMINOPHEN 325 MG TAB PO PRN ×3 (02:03→21:10)
[2016-09-20] MEDS: RESP: ALBUTEROL 2.5 MG/3 ML NEB (SCH) INH ×6 (03:21→23:15)
[2016-09-20 04:34] LABS: AUTOMATED NEUTROPHIL # 18.1 TH/MM3 (1.8-7.7); BASOPHIL # 0.2 TH/MM3 (0-0.2); BASOPHIL % 0.9 % (0.0-2.0); EOSINOPHIL # 0.5 TH/MM3 (0-0.4); EOSINOPHIL % 2.1 % (0.0-4.0); HEMATOCRIT 28.2 % (39.0-51.0); LYMPH % 9.1 % (9.0-44.0); LYMPHOCYTE # 2.1 TH/MM3 (1.0-4.8); MEAN CORPUSCULAR HEMOGLOBIN 28.4 PG (27.0-34.0); MEAN CORPUSCULAR HGB CONC 33.4 % (32.0-36.0); MONO % 10.3 % (0.0-8.0); NEUT % 77.6 % (16.0-70.0); PLATELET COUNT 362 TH/MM3 (150-450); RED BLOOD COUNT 3.31 MIL/MM3 (4.50-5.90); RED CELL DISTRIBUTION WIDTH 15.5 % (11.6-17.2); WHITE BLOOD COUNT 23.3 TH/MM3 (4.0-11.0)
[2016-09-20 04:41] LABS: HEMO FLAGS AUTO DIFF
[2016-09-20 05:04] LABS: ALKALINE PHOSPHATASE 419 U/L (45-117); ALT (GPT) 20 U/L (12-78); ANION GAP 11 MEQ/L (5-15); AST (GOT) 55 U/L (15-37); BICARBONATE 27.8 MEQ/L (21.0-32.0); BLOOD UREA NITROGEN 49 MG/DL (7-18); CHLORIDE 97 MEQ/L (98-107); GLOMERULAR FILTRATION RATE 15 ML/MIN (>89); SODIUM (NA) 136 MEQ/L (136-145)
[2016-09-20 05:09] LABS: POTASSIUM 4.7 MEQ/L (3.5-5.1)
[2016-09-20 05:38] LABS: BANDS 6 % (0-6); EOSINOPHILS 3 % (0-4); METAMYELOCYTES 6 % (0-1); NEUTROPHIL # MANUAL DIFF 20.5 TH/MM3 (1.8-7.7); POLYS (SEG NEUTROPHILS) 76 % (16-70); WBC DIFF SAMPLE 100
[2016-09-20 05:39] LABS: PLATELET ESTIMATE SMEAR HIGH (NORMAL); PLATELET MORPHOLOGY NORMAL (NORMAL); SCAN/DIFF FINAL DIFF MANUAL
[2016-09-20] MEDS: metroNIDAZOLE 500 MG INJ 100 ML IV SCH ×4 (05:53→23:03)
[2016-09-20] MEDS: cloNIDine HCL 0.1 MG TAB PO SCH ×3 (05:53→20:35)
[2016-09-20] MEDS: ARTIFICIAL TEARS OPTH SOLN 15 ML BTL EACH EYE SCH ×3 (05:53→20:36)
[2016-09-20] MEDS: fentaNYL 2,500 MCG/NS 250 ML IV SCH (05:53)
[2016-09-20] MEDS: RESP: BUDESONIDE 0.5 MG/2 ML NEB NEB SCH ×2 (07:50→20:04)
[2016-09-20] MEDS: RESP: SODIUM CHLORIDE 3% 4 ML NEB NEB SCH ×5 (08:00→20:05)
[2016-09-20] MEDS: RESP: ACETYLCYSTEINE 10% 30 ML NEB NEB SCH ×3 (08:00→23:15)
[2016-09-20] MEDS: CHLORHEXIDINE 0.12% (ORAL KIT) 15 ML CUP MT SCH ×2 (08:00→20:36)
--- NOTE | 2016-09-20 08:07 | HHI.CCPN ---
Subjective Remarks/Hospital Course 08/25: Patient is a 58-year-old male with past medical history significant COPD who, on 08/18/16, underwent Laparoscopic robotic extensive lysis of adhesions, low anterior resection and small bowel resection. Apparently he was brought in by Dr. Moffett for Diverticulitis. Patient has a history of hypertension, COPD, and continues to smoke one pack of cigarettes a day. Postoperatively patient became progressively short of breath. Pulmonary was consulted on 08/21/16 as the patient was becoming more hypoxemic requiring BiPAP. CT of the chest PE protocol did not show any pulmonary embolism. Patient was placed on breathing treatments and IV Solu-Medrol 40 mg every [address] Renteria. Today a.m. patient was on 100% nonrebreather. Patient was diagnosed with an anastomotic leak today and was taken back to the OR by Dr. Moffett. He underwent exploratory laparotomy, I&D and loop ileostomy today. Postop patient remained hypoxemic requiring 70% oxygen, and hence was left intubated and critical care medicine was consulted. Dr. Arce evaluated the patient in ICU. He remained hypoxemic, FiO2 70%. Chest x-ray shows bibasilar mild infiltrates. On sedation lightening patient became very hypertensive, not following commands probably secondary to residual NM blockade received while being transported to ICU. Patient on receiving vancomycin Levaquin and Flagyl per Dr. Moffett. Dr. Arce added cefepime to cover for Pseudomonas. Holding Solu-Medrol due to anastomotic leak. 08/26: Remains sedated, orally intubated on mechanical ventilation. Went into anuric renal failure yesterday which did not respond to fluid boluses and diuretics hence was started on hemodialysis after placement of right IJ Vas- Cath. Currently sedated, arousable, remains orally intubated on mechanical ventilation. Blood pressure borderline last evening following dialysis for which she was started on low-dose vasopressin 0.03 units per minute and Levophed which is currently at 1 jose per minute. Started on TPN last night following which he has been hyperglycemic. 08/27: Sedated, arousable, orally intubated on mechanical ventilation. Spiking fevers overnight. Off Levophed, transiently off vasopressin. Remains on TPN. 08/28: Remains sedated, arousable, orally intubated on mechanical ventilation. On low-dose vasopressin. TPN continues. Made about 500 cc of urine in the last 24 hours. 08/29: In sedated, arousable, orally intubated on mechanical ventilation. Remains on TPN. Dirty drainage from left-sided SERGEI drain noted overnight. Dr. Moffett obtaining CT abdomen pelvis with oral contrast and ID consulted. 08/30: CURRENT TEMPERATURE 99. Status post 4 L hemodialysis today. No current change in therapy. White blood cell count remained stable. Off vasopressors. Arousable to voice. Versed has been discontinued. We'll attempt CPAP trials again today. 08/31: MAXIMUM TEMPERATURE 100.4. Currently 100.1. Currently resting in bed in no acute distress. Continues with scant drainage from bilateral JPs. We'll attempt CPAP trial again today. Positive stool from ostomy bag 09/01: Tmax 99.8. Currently 99.3. Placement of the new right IJ vas catheter today. Plan for IR to possibly drain right lower quadrant fluid collection. Arousable and moves all 4 extremity spontaneously. 09/02: Currently afebrile. Noted placement of iron drain with accordion drain. Growing Pseudomonas. Lasted only 2 hours on CPAP trials today. 09/03: Tolerated SBT for only 30 mins and required PS 20. Not ready to extubate. 09/04: Tachypnea related to anxiety? or metabolic acidosis. Will check VBG. Not tolerating SBT. Anemia. Transfuse during HD. 09/05: Remains very tachypneic on SBTs. Unable to extubate. 09/06: Leukocytosis and bandemia. Acts like ongoing sepsis. 09/07: No significant changes. Afebrile. Tolerating TFs as recommended by CRS. Will transition from TPN to enteral feeds now. 09/08: Bandemia persists. Tolerating full TFs. D/c'd TPN. Glucose control acceptable. 09/09: Tolerating longer CPAP/PS trials. 09/10: Stronger respiratory effort. Try to extubate today. 09/11: Stable hemodynamics, marginal respiratory function. 09/11 update 1800 hrs: Patient developed sudden hyperventilation to 55-60/min, hypertensive urgency to 220/120s, unresponsive state, started versed 10 mg/hr after 10 mg iv. Load with cerebyx, get head CT, EEG in a.m. 09/12: BP and pulse rate control improved with sedation. Etiology unclear. Suspected intracranial process but CT head normal. Possibly seizures. EEG pending this morning. WBC with bandemia persists. 09/13: CURRENT TEMPERATURE 99. Heart rate and blood pressure control. Noted T changes last night noted a potassium 8.2. Noted hemodialysis catheter placed by overnight pit hoist operator in right femoral vein and hemodialysis currently undergoing. Plan for drainage of epigastric fluid collection by IR today. 09/14: Currently afebrile. Status post prior drainage of epigastric fluid area. Currently 60 ccwhite pus accordian drain. Status post bronchoscopy yesterday. 09/15 - intubation day #22. Family waiting another 24 hours to consider tracheostomy. He is not able to be extubated. Currently undergoing hemodialysis. Likely dialysis dependent. 09/16: Tmax 100.2. Blood pressure slowly trending downward. He transfuse PRBCs and albumin bolus prior to hemodialysis today. Intubation day #23. Family currently agreeable to tracheostomy but I'm unable to perform until Sunday. Positive BM. 09/17: Tmax 101. Intubation day #24. Tolerating tube feeding. Currently on Versed and fentanyl drips. 09/18: Remains sedated, orally intubated on mechanical ventilation. Scheduled for percutaneous tracheostomy today. Was dialyzed yesterday. Percutaneous drains [address] Ileostomy with good output. Wound VAC in place over anterior abdominal incision site. 09/19: Remains sedated, on mechanical ventilation via tracheostomy. Patient was noted to have some blood oozing from around tracheostomy site this morning as well as around Vas-Cath. Pressure dressing to be applied around Vas-Cath and packing around tracheostomy site and Dr. Howard informed. 09/20: Remains on fentanyl. On mechanical ventilation via tracheostomy. Continues to have fevers. No further bleeding from tracheostomy site or Vas- Cath site. Objective Vital Signs Date Time Temp Pulse Resp B/P Pulse Ox O2 Delivery O2 Flow Rate FiO2 09/20/16 06:00 109 09/20/16 04:04 100 40 09/20/16 04:00 100.8 26 158/93 Intake and Output 09/19/16 09/19/16 09/20/16 08:00 16:00 00:00 Intake Total 724 ml 705 ml 750 ml Output Total 355 ml 600 ml 3200 ml Balance 369 ml 105 ml -2450 ml Result Diagram: 09/20/16 0308 09/20/16 0308 Other Results Microbiology Date/Time Procedure Status Source Growth 09/17/16 17:47 Stool Occult Blood (JOSE) - Final Complete Stool Stool HEMOCCULT POSITIVE Imaging Last Impressions Chest X-Ray 09/17/16 0600 Signed Impressions: Service Date/Time: Saturday, September 17, 2016 04:43 - CONCLUSION: Unchanged bilateral filtrates. Evelio Hitchcock Jr., MD Abscess Drainage CT 09/13/16 0000 Signed Impressions: Service Date/Time: Tuesday, September 13, 2016 14:30 - CONCLUSION: Uncomplicated CT guided drainage. Carlo Cortes MD Head CT 09/11/16 0000 Signed Impressions: Service Date/Time: Sunday, September 11, 2016 18:41 - CONCLUSION: Normal examination for a patient of this age. Dave Easton MD Abdomen/Pelvis CT 09/11/16 0000 Signed Impressions: Service Date/Time: Monday, September 12, 2016 04:12 - CONCLUSION: 1. Small bowel dilatation has resolved. 2. Postsurgical changes are identified with increase in size of epigastric fluid collection, but decreased fluid within the mesentery and right paracolic region. 3. There is no evidence for enteric contrast media extravasation. 4. Pulmonary consolidation and effusions. Romel Kohli MD Retroperitoneal Abscess Drainage 09/01/16 0600 Signed Impressions: Service Date/Time: Thursday, September 01, 2016 13:05 - CONCLUSION: Uncomplicated CT guided drainage of a right lower quadrant fluid collection. Approximately 75 cc of fecal-like brown material was aspirated. The air and fluid collection may communicate with the inferior aspect of the midline wound on the anterior abdominal wall. Claude Carrasco MD Abdomen X-Ray 08/24/16 Signed Impressions: Service Date/Time: August 07:44 - CONCLUSION: Gaseous distention of multiple bowel loops possible ileus. Jony Miller MD Enema w/Water Soluble 08/23/16 Signed Impressions: Service Date/Time: Tuesday, August 23, 2016 10:12 - CONCLUSION: Anastomosis appears patent without extravasation. Aditya Rocha MD FACR CT Angiography 08/21/16 0000 Signed Impressions: Service Date/Time: Sunday, August 21, 2016 14:05 - CONCLUSION: 1. There is no evidence for central pulmonary emboli. 2. Minimal subcutaneous air as well as free intraperitoneal air. Aditya Rocha MD FACR Objective Remarks GENERAL: 56-year-old male, critically ill, currently on mechanical ventilation via tracheostomy SKIN: Warm. Dry. No rash HEAD: Atraumatic. Normocephalic. ENT: mucosa moist NECK: Tracheostomy in place. LIJ Vas-Cath in place CARDIOVASCULAR: Tachy, IR. S1, S2. No S4. No m/c/g/r. RESPIRATORY: On mechanical ventilation, scattered rhonchi, no wheezing. GASTROINTESTINAL: Abdomen non distended. Midline incision clean and intact. BS active. Ostomy pink with brown stool. 2 accordion drain, 1 SER[address] and vac in place. MUSCULOSKELETAL: Extremities with Tr+ bilateral upper and lower extremity edema , well perfused. NEUROLOGICAL:Pupils equal round and reactive 2 mm bilaterally. Grimaces with suctioning. Date of Insertion: Aug 31, 2016 Date of Removal: Sep 12, 2016 Side: Right A/P Assessment and Plan NEURO/PSYCH: History of anxiety Acute toxic metabolic encephalopathymultifactorial Off Versed, titrate off fentanyl gtt as tolerated Acetaminophen for fever Haldol 1 mg every 4 hours when necessary Ativan 0.5 mg every one hour when necessary agitation Morphine sulfate 3 milligrams IV every 3 hours when necessary pain -Daily sedation vacation, follow neuro status. -Head CT 09/11 no acute intracranial findings -EEG 09/12 revealed mild to moderate encephalopathy. No epileptiform activity. Currently on Cerebyx 300 mg liquid at night. Level 5.7 on 09/18 RESP: Acute hypoxemic respiratory failure COPD exacerbation Probable healthcare associated pneumonia -Continue ACV 22/600 0.75/8/50 Ventilator bundle -Albuterol nebs every 4 hours scheduled and when necessary duo nebs, Symbicort 2 puffs every 12 was discontinued while in ventilator. Continue Pulmicort 0.5/2 twice a day -Broad-spectrum antibiotics as below -Continue daily C Pap trials. Dr. Renteria/Pulmonary following Increase SBTs length as able. s/p tracheostomy 09/18 CV: Hypotension secondary to septic shock resolved History of hypertension -Received multiple fluid boluses on 08/25. IV fluids discontinued subsequently in view of anuria necessitating hemodialysis. Off all vasopressors -Attempt negative fluid balance with hemodialysis. Currently on clonidine 0.1 3 times a day, Norvasc 5 mg twice a day and Coreg 6.25 twice a day. Decreased Norvasc daily and Coreg 3.125 twice a day with holding parameters for all 3 blood pressure medications. Labetalol prn GI/ Nutrition: Anastomotic leak status post exploratory laparotomy, I&D, loop ileostomy 08/24/16 s/p Laparoscopic robotic extensive ANNA MARIE, robotic LAR and small bowel resection Laparoscopic robotic ANNA MARIE, robotic LAR and small bowel resection with anastomotic leak History of diverticulitis -Status post exploratory laparotomy, I&D, loop ileostomy 08/24/16 -Postoperative management per Dr. Moffett. Broad-spectrum antibiotics as below. positive ostomy output CT abdomen pelvis with oral contrast 08/29 reveal small bowel ileus. Serous fluid collection likely postoperative changes. - On Reglan to improve GI motility -Started on TPN 08/25 at 65 cc an hour with lipids daily. This is been discontinued Resumed on Glucerna 1.5 goal 60 cc an hour. Protonix for GI prophylaxis Accordion drain to right lower quadrant 09/01 by IR. Right lower quadrant SERGEI. LLQ SERGEI has been discontinued Vac-Pac medial. Accordion to epigastric drain with purulent white drainage. Renal/: Acute kidney injury History BPH Status post bilateral ureteral stents placed by Dr. Fraser 08/18 -Monitor renal function closely. Mg catheter. -IV fluids discontinued in view of anuric renal failure and hyperkalemia necessitating hemodialysis. Nephrology consulted and following. -Attempt maintaining even to slightly negative fluid balance. New right IJ hemodialysis catheter placed 09/01 -> D/C 09/13. New right femoral hemodialysis catheter placed 09/13 -> D/C 09/19 New LIJ vascath placed 09/18 ID: Anastomotic leak Sepsis Probable HCAP -IV vancomycin, Flagyl and Levaquin per Dr. Moffett. Levaquin discontinued . Zosyn started 09/02- 09/16. Flagyl and micafungin per ID added. Merrem added 09/15 Pertinent culture 09/13 - bronchial -Pseudomonas 09.13 - abdomen abscess -Pseudomonas/yeast 09/01: Abdominal wound - Pseudomonas, enterococcus, Iram 08/31 - line culture Pseudomonas/coag negative staph 08/31 - blood cultures 2 -no growth 08/31 - sputum - pending 08/29 - wound - Pseudomonas, group D enterococcus, C. albicans and yeast 08/25 blood cultures - no growth 08/25 sputum - Serratia/Klebsiella/Pseudomonas 08/24 - wound - no growth HEME: Leukocytosis Normocytic anemia Thrombocytosis RIJ DVT (nonocclusive) -Monitor CBC, CMP, coags - On anticoagulation with heparin (for right IJ nonocclusive thrombus/ left cephalic vein) which is on hold since 09/11 7 AM and continues to remain on hold following tracheostomy due to bleeding from site earlier on 09/19. ENDO: -Sliding-scale insulin for glycemic control. Levemir 20 units twice a day FEN: Hyperphosphatemia Continue PhosLo 667 mg 3 times a day for hyperphosphatemia. Hemodialysis done on 09/17 PROPH: -Bilateral lower extremity SCDs. Heparin gtt for RIJ DVT (held 09/18 for scheduled trach). Protonix for GI prophylaxis LINES: -Left subclavian central line placed in the OR 08/24 - 08/31. Right subclavian central line placed 08/31 - 09/11 - RIJ dialysis catheter 08/25 -08/31. New right IJ hemodialysis catheter 09/01 - - Right femoral hemodialysis catheter 09/13 Critical Care: The total critical care time was 40 minutes. Time to perform other separately billable procedures was not included in the critical care time. Satya Quarles MD Sep 20, 2016 08:07
[2016-09-20] MEDS: PANTOPRAZOLE SODIUM 40 MG VIAL IVP SCH (08:40)
[2016-09-20] MEDS: MUPIROCIN 2% OINT 1 APPLIC/GM SYR EACH NARE SCH ×2 (08:40→20:34)
[2016-09-20] MEDS: SODIUM CHLORIDE 0.9% FLUSH 5 ML FLUSH IVF SCH ×2 (08:40→20:36)
[2016-09-20] MEDS: amLODIPine BESYLATE 5 MG TAB PO SCH ×2 (08:40→20:35)
[2016-09-20] MEDS: CARVEDILOL 3.125 MG TAB PO SCH ×2 (08:40→20:34)
[2016-09-20] MEDS: MICAFUNGIN INJ 100 MG in SODIUM CHLORIDE 0.9% INJ 100 ML IV SCH (08:40)
[2016-09-20] MEDS: CALCIUM ACETATE 667 MG CAP PO SCH ×4 (08:40→18:00)
--- NOTE | 2016-09-20 08:50 | HHI.PR ---
Subjective Remarks POD#33 s/p robotic LAR/SBR/ANNA MARIE, POD#25 s/p ex lap, washout, diverting loop ileostomy More alert Objective Vital Signs Date Time Temp Pulse Resp B/P Pulse Ox O2 Delivery O2 Flow Rate FiO2 09/20/16 07:50 99 40 09/20/16 06:00 109 09/20/16 04:04 100 40 09/20/16 04:00 100.8 109 26 158/93 100 09/20/16 04:00 40 09/20/16 04:00 109 09/20/16 03:03 25 09/20/16 02:00 96 09/20/16 01:39 100 40 09/20/16 00:00 40 09/20/16 00:00 100.4 108 26 136/81 100 09/20/16 00:00 108 09/19/16 22:19 100 40 09/19/16 22:00 116 09/19/16 20:50 100 40 09/19/16 20:00 40 09/19/16 20:00 122 09/19/16 20:00 102.6 122 22 154/92 100 09/19/16 18:00 124 09/19/16 17:39 98 40 09/19/16 16:00 102.2 132 26 155/83 100 09/19/16 16:00 135 09/19/16 16:00 40 09/19/16 14:00 122 09/19/16 12:56 100 40 09/19/16 12:00 103 09/19/16 12:00 101.1 103 18 143/73 100 09/19/16 12:00 40 09/19/16 10:00 107 I/O 09/19/16 09/19/16 09/19/16 09/20/16 09/20/16 09/20/16 07:00 15:00 23:00 07:00 15:00 23:00 Intake Total 724 ml 705 ml 750 ml 709 ml Output Total 355 ml 600 ml 3200 ml 760 ml Balance 369 ml 105 ml -2450 ml -51 ml IV Total 386 ml 425 ml 329 ml 212 ml Tube Feeding 188 ml 280 ml 301 ml 377 ml Tube Irrigant 150 ml Other 120 ml 120 ml Stool Total 350 ml 550 ml 650 ml 700 ml Drainage Total 5 ml 50 ml 50 ml 60 ml Hemodialysis 2500 ml # Voids 0 Result Diagram: 09/20/1630709/20/16307 Objective Remarks Abdomen soft Wounds clean Drains slightly up, thick, viscous per deportation examiner and Plan Assessment and Plan CV - BP stable RESP - continue CPAP trials KIDNEY - still anuric,continue HD FEN - tolerating TF's ID - Still with pseudomonas infection Weaning fentanyl, more alert Elana Moffett MD Sep 20, 2016 08:50
--- NOTE | 2016-09-20 10:23 | HHI.NPPN ---
Subjective General Problems: Edema Renal Failure: Acute Interval History Remains on unresponsive, on ventilator via trach. Febrile. Anuric. (Fransisca Canela) Review of Systems General General Remarks unable to evaluate (Fransisca Canela) Objective Data Data 09/19/16 09/20/16 19:00 07:00 Intake Total 705 ml 1459 ml Output Total 3100 ml 1460 ml Balance -2395 ml -1 ml IV Total 425 ml 541 ml Tube Feeding 280 ml 678 ml Other 240 ml Stool Total 550 ml 1350 ml Drainage Total 50 ml 110 ml Hemodialysis 2500 ml Vital Signs Date Time Temp Pulse Resp B/P Pulse Ox O2 Delivery O2 Flow Rate FiO2 09/20/16 09:04 40 09/20/16 09:04 97 40 09/20/16 07:50 99 40 09/20/16 06:00 109 09/20/16 04:04 100 40 09/20/16 04:00 100.8 109 26 158/93 100 09/20/16 04:00 40 09/20/16 04:00 109 09/20/16 03:03 25 09/20/16 02:00 96 09/20/16 01:39 100 40 09/20/16 00:00 40 09/20/16 00:00 100.4 108 26 136/81 100 09/20/16 00:00 108 09/19/16 22:19 100 40 09/19/16 22:00 116 09/19/16 20:50 100 40 09/19/16 20:00 40 09/19/16 20:00 122 09/19/16 20:00 102.6 122 22 154/92 100 09/19/16 18:00 124 09/19/16 17:39 98 40 09/19/16 16:00 102.2 132 26 155/83 100 09/19/16 16:00 135 09/19/16 16:00 40 09/19/16 14:00 122 09/19/16 12:56 100 40 09/19/16 12:00 103 09/19/16 12:00 101.1 103 18 143/73 100 09/19/16 12:00 40 (Fransisca Canela) -: 09/20/16 0308 09/20/16 0308 Imaging Last Impressions Chest X-Ray 09/18/16 06 Signed Impressions: Service Date/Time: Sunday, September 18, 2016 04:33 - CONCLUSION: Stable bilateral patchy densities greater throughout the right lung. Jony Miller MD Upper Extremity Ultrasound 09/17/16 0000 Signed Impressions: Service Date/Time: Saturday, September 17, 2016 16:48 - CONCLUSION: 1. Positive nonocclusive deep venous thrombosis right internal jugular vein. 2. Nonocclusive superficial thrombosis in the left cephalic vein. Miki Banerjee MD Lower Extremity Ultrasound 09/17/16 Signed Impressions: Service Date/Time: Saturday, September 17, 2016 17:33 - CONCLUSION: Normal examination. Miki Banerjee MD Head CT 09/17/16 Signed Impressions: Service Date/Time: Saturday, September 17, 2016 20:47 - CONCLUSION: 1. No acute intracranial abnormalities. Miki Banerjee MD Chest CT 09/17/16 Signed Impressions: Service Date/Time: Saturday, September 17, 2016 20:46 - CONCLUSION: 1. Multifocal airspace consolidation in the lungs, right greater than left most characteristic of bronchopneumonia. There is underlying mild to moderate emphysema. Small effusions. Miki Banerjee MD Abdomen/Pelvis CT 09/17/16 Signed Impressions: Service Date/Time: Saturday, September 17, 2016 20:50 - CONCLUSION: 1. Interval placement of drain in upper abdomen anteriorly with decrease in size of fluid collection as above. No new fluid collections within the abdomen and pelvis. 2. Right lower quadrant drain remains. Previous left drain has been removed. NG coiled in stomach. Miki Banerjee MD Abscess Drainage CT 09/13/16 0000 Signed Impressions: Service Date/Time: Tuesday, September 13, 2016 14:30 - CONCLUSION: Uncomplicated CT guided drainage. Carlo Cortes MD Retroperitoneal Abscess Drainage 09/01/16 0600 Signed Impressions: Service Date/Time: Thursday, September 01, 2016 13:05 - CONCLUSION: Uncomplicated CT guided drainage of a right lower quadrant fluid collection. Approximately 75 cc of fecal-like brown material was aspirated. The air and fluid collection may communicate with the inferior aspect of the midline wound on the anterior abdominal wall. Claude Carrasco MD Abdomen X-Ray 08/24/16 0000 Signed Impressions: Service Date/Time: August 07:44 - CONCLUSION: Gaseous distention of multiple bowel loops possible ileus. Jony Miller MD Enema w/Water Soluble 08/23/16 0000 Signed Impressions: Service Date/Time: Tuesday, August 23, 2016 10:12 - CONCLUSION: Anastomosis appears patent without extravasation. Aditya Rocha MD FACR CT Angiography 08/21/16 0000 Signed Impressions: Service Date/Time: Sunday, August 21, 2016 14:05 - CONCLUSION: 1. There is no evidence for central pulmonary emboli. 2. Minimal subcutaneous air as well as free intraperitoneal air. Aditya Rocha MD FACR Tubes & Lines: Vas-Cath Tubes & Lines Comment trach TLC, NG tube (R) SERGEI drain RLQ epigastric drain wound vac lower abdomen Drip Comment fentanyl, versed (Fransisca Canela B. LIVESTOCK NUTRITIONIST) Physical Exam General Appearance: No Acute Distress Appearance Remarks intubated, sedated, awakens to stimuli (Fransisca Canela B. LIVESTOCK NUTRITIONIST) Throat Throat Exam: Oral Mucosa [place] & Moist (Fransisca Canela B. LIVESTOCK NUTRITIONIST) Neck Neck Remarks trach (Fransisca Canela B. LIVESTOCK NUTRITIONIST) Pulmonary Resp Exam: Breath Sounds Equal, No Distress, Crackles, Sputum, Diminished Breath Sounds Resp Remarks vented, increased secretions (Fransisca Canela B. LIVESTOCK NUTRITIONIST) Cardiology CV Exam: Regular, Normal Sinus Rhythm (Fransisca Canela B. LIVESTOCK NUTRITIONIST) Gastrointestinal/Abdomen GI Exam: Distended GI Remarks distended, not as firm; colostomy with pink/red stoma (Fransisca Canela B. LIVESTOCK NUTRITIONIST) Musculoskeletal MS Exam: Joints Intact, Normal Tone (Fransisca Canela B. LIVESTOCK NUTRITIONIST) Integumentary Skin Exam: Warm, Dry Skin Remarks below umbilicus, midabdominal wound has dehisced; wound vac left side of incision (Fransisca Canela BGavi LIVESTOCK NUTRITIONIST) Extremeties Extremities Exam: No Edema, Pedal Pulses Palpable (Fransisca Canela B. LIVESTOCK NUTRITIONIST) Neurologic Neuro Exam: Obtunded, Unresponsive, Sedated (Fransisca Canela B. LIVESTOCK NUTRITIONIST) VTE Prophylaxis Device: SCDs (HiltonFransisca jolly) Assessment/Plan Discussed Condition With: Relative Assessment Summary: VIRIDIANA/Acute Renal Failure, Acute Tubular Necrosis, Fluid/ Volume Overload Problem List: (1) Acute renal failure Plan: He has developed ATN due to sepsis. he is now on daily dialysis, minimal fluid removal today as he has persistent negative balance and not demonstrating fluid overload he is anuric and highly catabolic vascath in left IJ, placed 09/18 anuric, monitor for changes has been hyperkalemic, monitor daily Avoid nephrotoxic agents. Avoid IVF specifically LR. continue Calcium acetate for hyperphosphatemia, dosage increased daily renal panel (2) Diverticulitis Plan: s/p colon resection with complications surgery following. he has multiple drains and wound vac due to wound dehiscence pseudomonas in sputum and wound ID following, managing antibiotics. He is on meropenem, Zosyn, Flagyl and intermittent vancomycin s/p trach placement 09/18 (Fransisca Canela) Plan patient was seen and examined. Dialysis will be continued. No signs of renal recovery. (Tito Kuo MD) Problem Qualifiers (1) Acute renal failure: Qualified Code: N17.0 - Acute renal failure with tubular necrosis Fransisca Canela Sep 20, 2016 10:23 Tito Kuo MD Sep 21, 2016 12:01
--- NOTE | 2016-09-20 10:53 | HHI.PR ---
Subjective Subjective Notes On MV via trach No events overnight; no reported bleeding overnight Objective Vitals/I&O Vital Signs Date Time Temp Pulse Resp B/P Pulse Ox O2 Delivery O2 Flow Rate FiO2 09/20/16 10:00 115 09/20/16 09:04 40 09/20/16 09:04 97 09/20/16 08:00 100.8 18 160/94 Labs Laboratory Tests Test 09/20/16 03:08 White Blood Count 23.3 Red Blood Count 3.31 Hemoglobin 9.4 Hematocrit 28.2 Mean Corpuscular Volume 85.0 Mean Corpuscular Hemoglobin 28.4 Mean Corpuscular Hemoglobin 33.4 Concent Red Cell Distribution Width 15.5 Platelet Count 362 Mean Platelet Volume 8.5 Neutrophils (%) (Auto) 77.6 Lymphocytes (%) (Auto) 9.1 Monocytes (%) (Auto) 10.3 Eosinophils (%) (Auto) 2.1 Basophils (%) (Auto) 0.9 Neutrophils # (Auto) 18.1 Lymphocytes # (Auto) 2.1 Monocytes # (Auto) 2.4 Eosinophils # (Auto) 0.5 Basophils # (Auto) 0.2 CBC Comment AUTO DIFF Differential Total Cells 100 Counted Neutrophils % (Manual) 76 Band Neutrophils % 6 Lymphocytes % 3 Monocytes % 6 Eosinophils % 3 Neutrophils # (Manual) 20.5 Metamyelocytes 6 Differential Comment FINAL DIFF MANUAL Platelet Estimate HIGH Platelet Morphology Comment NORMAL Sodium Level 136 Potassium Level 4.7 Chloride Level 97 Carbon Dioxide Level 27.8 Anion Gap 11 Blood Urea Nitrogen 49 Creatinine 4.20 Estimat Glomerular Filtration 15 Rate Random Glucose 130 Calcium Level 9.7 Total Bilirubin 1.0 Aspartate Amino Transf 55 (AST/SGOT) Alanine Aminotransferase 20 (ALT/SGPT) Alkaline Phosphatase 419 Total Protein 8.9 Albumin 2.6 Date/Time Procedure Status Source Growth 09/17/16 17:47 Stool Occult Blood (KYUNG) - Final Complete Stool Stool HEMOCCULT POSITIVE 09/17/16 12:50 Gram Stain - Final Complete Sputum Endotracheal 09/17/16 12:50 Sputum Culture - Final Complete Pseudomonas Aeruginosa 09/17/16 11:45 Aerobic Blood Culture - Preliminary Resulted Blood Other NO GROWTH IN 2 DAYS 09/17/16 11:45 Anaerobic Blood Culture - Preliminary Resulted Blood Other NO GROWTH IN 2 DAYS Cardiovascular: Regular Lungs: Clear Abdomen: Other (wound vac in place; ileostomy in place ) Narrative Exam trach with no bloody drainage A/P Assessment and Plan 56 year old male s/p robotic assisted lap sigmoid resection with VDRF -POD2 trach placement -Surgicel placed for bleeding on Sunday -Continue to monitor for bleeding -Okay from GS standpoint to start subq Heparin; spoke with Dr. Quarles Attending Statement patient seen and discussed with patient at bedside bleeding stable start anticoagulation Attestation The exam, history, and the medical decision-making described in the above note were completed with the assistance of the mid-level provider. I reviewed and agree with the findings presented. I attest that I had a [id number] encounter with the patient on the same day, and personally performed and documented my assessment and findings in the medical record. Ashly Smiley Sep 20, 2016 10:53 Brayden Howard MD Oct 07, 2016 14:46
[2016-09-20] MEDS ORDERED: TOBRAMYCIN INJ 200 MG in SODIUM CHLORIDE 0.9% INJ 100 ML IV SCH (12:00)
--- NOTE | 2016-09-20 12:21 | HHI.IDPN ---
Note Infectious Disease Note Discussed with RN. Patient is on the vent. Awakens. Sedated. Temp continues to spike. WBC remain elevated. Pseudomonas in sputum is very resistant. Moderate henry ETT secretions. Moderate mid upper abdomen drainage. No UO. Post trach 09/18. LIJ dialysis catheter. PAST MEDICAL HISTORY 1. Diverticulitis. 2. COPD. 3. Hypertension. 4. Anxiety disorder. 5. BPH. 6. History of tonsillectomy. ALLERGIES No known drug allergies. ANTIBIOTICS 1. Micafungin. 2. Meropenem. 3. Vancomycin periodic. 4. Flagyl. OBJECTIVE: Vital Signs Date Time Temp Pulse Resp B/P Pulse Ox O2 Delivery O2 Flow Rate FiO2 09/20/16 11:40 99 40 09/20/16 11:36 98 40 09/20/16 11:35 40 09/20/16 11:29 98 40 09/20/16 10:00 115 09/20/16 09:04 40 09/20/16 09:04 97 40 09/20/16 08:00 100.8 110 18 160/94 98 09/20/16 08:00 112 09/20/16 08:00 40 09/20/16 07:50 99 40 09/20/16 06:00 109 09/20/16 04:04 100 40 09/20/16 04:00 100.8 109 26 158/93 100 09/20/16 04:00 40 09/20/16 04:00 109 09/20/16 03:03 25 09/20/16 02:00 96 09/20/16 01:39 100 40 09/20/16 00:00 40 09/20/16 00:00 100.4 108 26 136/81 100 09/20/16 00:00 108 09/19/16 22:19 100 40 09/19/16 22:00 116 09/19/16 20:50 100 40 09/19/16 20:00 40 09/19/16 20:00 122 09/19/16 20:00 102.6 122 22 154/92 100 09/19/16 18:00 124 09/19/16 17:39 98 40 09/19/16 16:00 102.2 132 26 155/83 100 09/19/16 16:00 135 09/19/16 16:00 40 09/19/16 14:00 122 09/19/16 12:56 100 40 09/19/16 09/19/16 09/20/16 15:00 23:00 07:00 Intake Total 705 ml 750 ml 709 ml Output Total 600 ml 3200 ml 760 ml Balance 105 ml -2450 ml -51 ml IV Total 425 ml 329 ml 212 ml Tube Feeding 280 ml 301 ml 377 ml Other 120 ml 120 ml Stool Total 550 ml 650 ml 700 ml Drainage Total 50 ml 50 ml 60 ml Hemodialysis 2500 ml Laboratory Tests Test 09/19/16 09/20/16 10:15 03:08 White Blood Count 21.1 TH/MM3 23.3 TH/MM3 Red Blood Count 3.35 MIL/MM3 3.31 MIL/MM3 Hemoglobin 9.1 GM/DL 9.4 GM/DL Hematocrit 28.7 % 28.2 % Mean Corpuscular Volume 85.8 FL 85.0 FL Mean Corpuscular Hemoglobin 27.3 PG 28.4 PG Mean Corpuscular Hemoglobin 31.8 % 33.4 % Concent Red Cell Distribution Width 15.2 % 15.5 % Platelet Count 394 TH/MM3 362 TH/MM3 Mean Platelet Volume 8.1 FL 8.5 FL Neutrophils (%) (Auto) 77.1 % 77.6 % Lymphocytes (%) (Auto) 8.3 % 9.1 % Monocytes (%) (Auto) 10.2 % 10.3 % Eosinophils (%) (Auto) 3.4 % 2.1 % Basophils (%) (Auto) 1.0 % 0.9 % Neutrophils # (Auto) 16.2 TH/MM3 18.1 TH/MM3 Lymphocytes # (Auto) 1.7 TH/MM3 2.1 TH/MM3 Monocytes # (Auto) 2.2 TH/MM3 2.4 TH/MM3 Eosinophils # (Auto) 0.7 TH/MM3 0.5 TH/MM3 Basophils # (Auto) 0.2 TH/MM3 0.2 TH/MM3 CBC Comment AUTO DIFF AUTO DIFF Differential Total Cells 100 100 Counted Neutrophils % (Manual) 56 % 76 % Band Neutrophils % 15 % 6 % Lymphocytes % 5 % 3 % Monocytes % 9 % 6 % Eosinophils % 6 % 3 % Basophils % 2 % Neutrophils # (Manual) 16.5 TH/MM3 20.5 TH/MM3 Metamyelocytes 4 % 6 % Myelocytes 3 % Nucleated Red Blood Cells 1 /100 WBC Differential Comment FINAL DIFF FINAL DIFF MANUAL MANUAL Platelet Estimate HIGH HIGH Platelet Morphology Comment NORMAL NORMAL Laboratory Tests Test 09/19/16 09/20/16 10:15 03:08 Sodium Level 138 MEQ/L 136 MEQ/L Potassium Level 5.4 MEQ/L 4.7 MEQ/L Chloride Level 101 MEQ/L 97 MEQ/L Carbon Dioxide Level 27.8 MEQ/L 27.8 MEQ/L Anion Gap 9 MEQ/L 11 MEQ/L Blood Urea Nitrogen 64 MG/DL 49 MG/DL Creatinine 5.63 MG/DL 4.20 MG/DL Estimat Glomerular Filtration 10 ML/MIN 15 ML/MIN Rate Random Glucose 101 MG/DL 130 MG/DL Calcium Level 9.6 MG/DL 9.7 MG/DL Phosphorus Level 7.3 MG/DL Magnesium Level 2.2 MG/DL Total Bilirubin 1.2 MG/DL 1.0 MG/DL Aspartate Amino Transf 48 U/L 55 U/L (AST/SGOT) Alanine Aminotransferase 23 U/L 20 U/L (ALT/SGPT) Alkaline Phosphatase 418 U/L 419 U/L Total Protein 8.4 GM/DL 8.9 GM/DL Albumin 2.5 GM/DL 2.6 GM/DL Microbiology Date/Time Procedure Status Source Growth 09/17/16 12:50 Gram Stain - Final Resulted Sputum Endotracheal 09/17/16 12:50 Sputum Culture - Preliminary Resulted Pseudomonas Aeruginosa 09/17/16 17:47 Stool Occult Blood (KYUNG) - Final Complete Stool Stool HEMOCCULT POSITIVE Microbiology Date/Time Procedure Status Source Growth 09/17/16 11:15 Aerobic Blood Culture - Preliminary Resulted Blood Peripheral NO GROWTH IN 2 DAYS 09/17/16 11:15 Anaerobic Blood Culture - Preliminary Resulted Blood Peripheral NO GROWTH IN 2 DAYS 09/17/16 11:45 Aerobic Blood Culture - Preliminary Resulted Blood Other NO GROWTH IN 2 DAYS 09/17/16 11:45 Anaerobic Blood Culture - Preliminary Resulted Blood Other NO GROWTH IN 2 DAYS 09/17/16 12:50 Gram Stain - Final Resulted Sputum Endotracheal 09/17/16 12:50 Sputum Culture - Preliminary Resulted Pseudomonas Aeruginosa 09/17/16 17:47 Stool Occult Blood (KYUNG) - Final Complete Stool Stool HEMOCCULT POSITIVE Microbiology Date/Time Procedure Status Source Growth 09/13/16 15:03 Gram Stain - Final Resulted Abscess Abdomen 09/13/16 15:03 Wound Culture - Preliminary Resulted Gram Negative Denis 09/13/16 17:20 Gram Stain - Final Resulted Bronchial Washings Right Mid Lobe 09/13/16 17:20 Bronchial Culture - Preliminary Resulted Pseudomonas Aeruginosa 09/13/16 17:20 Acid Fast Stain Worksheet Bronchial Washings Right Mid Lobe Pending 09/13/16 17:20 Mycobacterial Culture Worksheet Bronchial Washings Right Mid Lobe Pending 09/13/16 17:20 Fungal Smear - Final Resulted Bronchial Washings Right Mid Lobe NO FUNGAL ELEMENTS SEEN. 09/13/16 17:20 Fungal Culture Resulted Bronchial Washings Right Mid Lobe Pending Imaging: Chest X-Ray 09/18/16 0600 Signed Impressions: Service Date/Time: Sunday, September 18, 2016 04:33 - CONCLUSION: Stable bilateral patchy densities greater throughout the right lung. Jony Miller MD Chest X-Ray 09/17/16 0600 Signed Impressions: Service Date/Time: Saturday, September 17, 2016 04:43 - CONCLUSION: Unchanged bilateral filtrates. Evelio Hitchcock Jr., MD Upper Extremity Ultrasound 09/17/16 0000 Signed Impressions: Service Date/Time: Saturday, September 17, 2016 16:48 - CONCLUSION: 1. Positive nonocclusive deep venous thrombosis right internal jugular vein. 2. Nonocclusive superficial thrombosis in the left cephalic vein. Miki Banerjee MD Lower Extremity Ultrasound 09/17/16 0000 Signed Impressions: Service Date/Time: Saturday, September 17, 2016 17:33 - CONCLUSION: Normal examination. Miki Banerjee MD Head CT 09/17/16 0000 Signed Impressions: Service Date/Time: Saturday, September 17, 2016 20:47 - CONCLUSION: 1. No acute intracranial abnormalities. Miki Banerjee MD Chest CT 09/17/16 0000 Signed Impressions: Service Date/Time: Saturday, September 17, 2016 20:46 - CONCLUSION: 1. Multifocal airspace consolidation in the lungs, right greater than left most characteristic of bronchopneumonia. There is underlying mild to moderate emphysema. Small effusions. iMki Banerjee MD Abdomen/Pelvis CT 09/17/16 0000 Signed Impressions: Service Date/Time: Saturday, September 17, 2016 20:50 - CONCLUSION: 1. Interval placement of drain in upper abdomen anteriorly with decrease in size of fluid collection as above. No new fluid collections within the abdomen and pelvis. 2. Right lower quadrant drain remains. Previous left drain has been removed. NG coiled in stomach. Miki Banerjee MD Head CT 09/11/16 0000 Signed Impressions: Service Date/Time: Sunday, September 11, 2016 18:41 - CONCLUSION: Normal examination for a patient of this age. Dave Easton MD Abdomen/Pelvis CT 09/11/16 0000 Signed Impressions: Service Date/Time: Monday, September 12, 2016 04:12 - CONCLUSION: 1. Small bowel dilatation has resolved. 2. Postsurgical changes are identified with increase in size of epigastric fluid collection, but decreased fluid within the mesentery and right paracolic region. 3. There is no evidence for enteric contrast media extravasation. 4. Pulmonary consolidation and effusions. Romel Kohli MD Chest X-Ray 09/03/16 0600 Signed Impressions: Service Date/Time: Saturday, September 03, 2016 04:03 - CONCLUSION: Stable left lower lobe consolidation and right lower lung infiltrates. Evelio Boyd MD Retroperitoneal Abscess Drainage 09/01/16 0600 Signed Impressions: Service Date/Time: Thursday, September 01, 2016 13:05 - CONCLUSION: Uncomplicated CT guided drainage of a right lower quadrant fluid collection. Approximately 75 cc of fecal-like brown material was aspirated. The air and fluid collection may communicate with the inferior aspect of the midline wound on the anterior abdominal wall. Claude Carrasco MD Abdomen/Pelvis CT 08/29/16 0000 Signed Impressions: Service Date/Time: Monday, August 29, 2016 17:12 - CONCLUSION: Post surgical changes following partial colon resection. Persistent pockets of fluid. Largest is located in the pelvis and contains an air-fluid level. Abscess formation cannot be excluded. Small bowel ileus Bibasilar airspace disease and pleural effusions Aakash Iqbal MD Abdomen X-Ray 08/24/16 0000 Signed Impressions: Service Date/Time: August 07:44 - CONCLUSION: Gaseous distention of multiple bowel loops possible ileus. Jony Miller MD Enema w/Water Soluble 08/23/16 0000 Signed Impressions: Service Date/Time: Tuesday, August 23, 2016 10:12 - CONCLUSION: Anastomosis appears patent without extravasation. Aditya Rocha MD FACR CT Angiography 2/27/17 0000 Signed Impressions: Service Date/Time: Sunday, August 21, 2016 14:05 - CONCLUSION: 1. There is no evidence for central pulmonary emboli. 2. Minimal subcutaneous air as well as free intraperitoneal air. Aditya Rocha MD FACR PHYSICAL EXAMINATION GENERAL: Sedated on the ventilator. Awakens. HEENT: No icterus. Trach in place. NECK: No adenopathy or swelling. LUNGS: Coarse rhonchi bilateral. HEART: Regular rate and rhythm. No audible murmurs, rubs or gallops. ABDOMEN: Positive bowel sounds. Wound vac in place has serous drainage. 2 Accordion abdominal drains has light chocolate colored drainage. EXTREMITIES: No clubbing or cyanosis. No edema. Distal pulses 2+. SKIN: No rash. NEUROLOGIC: Unable to fully assess. IMPRESSION 1. Sepsis. Pseudomonas on CVL culture of removed line. 2. Peritonitis. Post abdominal surgery/Bowel resection - enterococcus, pseudomonas and yeast. 3. Pneumonia. pseudomonas ( resistant strain). 4. Leukocytosis secondary to infection. WBC still elevated. 5. Acute renal failure. 6. Acute respiratory failure. Remains vent. dependent. 7. Thrombosis R. internal Jugular vein. 8. Fever persistent. Probably because of resistant organism. ? line vs intra abdominal infection vs PNA. RECOMMENDATIONS 1. Continue Micafungin. 2. Stop Meropenem. 3. Add Aztreonam. Adjusted for renal function. 4. Add Levaquin. Adjusted for renal function. 5. Tobramycin x 1 dose. Follow level. 6. Continue Flagyl. 7. Culture of abdominal drainage from both mid upper and right abdomen. 8. Monitor white blood cell count. 9. Monitor temps. 10. Follow Vancomycin levels. I have asked Micro to check additional sensitivities on the pseudomonas. Zerbaxa ,Avycaz, Colistin. Tim Apodaca MD Sep 20, 2016 12:21
[2016-09-20] MEDS ORDERED: AZTREONAM INJ 2,000 MG in SODIUM CHLORIDE 0.9% INJ 100 ML IV ONE (13:00)
[2016-09-20] MEDS ORDERED: TOBRAMYCIN INJ 200 MG in SODIUM CHLORIDE 0.9% INJ 100 ML IV ONE (13:18)
[2016-09-20] MEDS: LEVOFLOXACIN 250 MG PREMIX INJ 50 ML IV SCH (13:38)
--- NOTE | 2016-09-20 15:05 | MP ---
cc: BRAYDEN HOWARD MD DATE OF SURGERY: 09/18/2016 PREOPERATIVE DIAGNOSIS Acute respiratory failure. POSTOPERATIVE DIAGNOSIS Acute respiratory failure. PROCEDURE PERFORMED Bedside tracheostomy, percutaneously with bronchoscopy. SURGEON Dr. Brayden Howard FILER FINISH/BRONCHOSCOPIST Dr. Quarles ANESTHESIA Patient already sedated on ventilator. IV FLUIDS See nurse's notes. ESTIMATED BLOOD LOSS 5 cc. DRAINS None. COMPLICATIONS None. WOUND CLASSIFICATION Clean. INDICATION The patient is a 56-year-old male who presents with a history of diverticulitis status post operative resection. The patient underwent the procedure but developed a prolonged hospital stay with multiple complications and issues necessitating and further contributing to acute respiratory failure with prolonged ventilation. A decision was made for a tracheostomy. This was discussed with the patient's family in detail. They stated understanding and agreed. DETAILS OF PROCEDURE The patient was seen in the [facility] at bedside. He was prepped and draped in the usual sterile fashion. A brief timeout was done stating correct patient, procedure and surgical site, and all were in agreement. Attention was directed to the midline neck and trachea close to the sternal notch. The skin was infiltrated with 1% lidocaine with epinephrine. A vertical incision was made. Further dissection was done with a hemostat down to the trachea. The tracheal rings were palpated down to the second and third tracheal rings. An introducer needle was obtained over an Angiocath. Dr. Quarles at the same time did bronchoscopy to do this under direct visualization. Respiratory was available and brought the ET tube back to 19 cm. The patient was also of note placed on 100% FIO2 with saturations of 100%. The cannula needle was introduced in the anterior trachea and visualized. The needle was removed and the Angiocath advanced. A Seldinger technique guidewire was placed through the Angiocath and the Angiocath removed. A punch dilator was used to dilate the trachea followed by a Blue Rhino tapered dilator. This was removed and a #8 Shiley non-fenestrated cuffed trach was obtained. This was introduced through the trachea, again under direct visualization. The guidewire and components were removed en bloc. The trachea cannula was placed and the balloon was insufflated. The vent was connected and there was positive end-tidal CO2 along with bilateral breath sounds and these were auscultated bilaterally confirming airway was adequate in placement. Hemostasis was obtained. The trach was sutured in place with 2-0 nylon x4. The strap was then placed to secure the trach in place. The patient tolerated the procedure. There was no complication. The patient remained on the vent. MD REMI Stokes/SUSAN /11:23 PM /2:52 PM
--- NOTE | 2016-09-20 16:08 | HHI.PR ---
Subjective Remarks YOAA male with robotic surgery,COPD exac Underwent exp lap,I&d and loop iliostomy placement Remains on vent Had Trach no fever Had Fever Tmax 103, better now Tolerated CPAP, now on ACV Objective Vital Signs Vital Signs Date Time Temp Pulse Resp B/P Pulse Ox O2 Delivery O2 Flow Rate FiO2 09/20/16 14:00 106 09/20/16 12:00 113 09/20/16 12:00 40 09/20/16 12:00 101.5 113 21 153/96 98 09/20/16 11:40 99 40 09/20/16 11:36 98 40 09/20/16 11:35 40 09/20/16 11:29 98 40 09/20/16 10:00 115 09/20/16 09:04 40 09/20/16 09:04 97 40 09/20/16 08:00 100.8 110 18 160/94 98 09/20/16 08:00 112 09/20/16 08:00 40 09/20/16 07:50 99 40 09/20/16 06:00 109 09/20/16 04:04 100 40 09/20/16 04:00 100.8 109 26 158/93 100 09/20/16 04:00 40 09/20/16 04:00 109 09/20/16 03:03 25 09/20/16 02:00 96 09/20/16 01:39 100 40 09/20/16 00:00 40 09/20/16 00:00 100.4 108 26 136/81 100 09/20/16 00:00 108 09/19/16 22:19 100 40 09/19/16 22:00 116 09/19/16 20:50 100 40 09/19/16 20:00 40 09/19/16 20:00 122 09/19/16 20:00 102.6 122 22 154/92 100 09/19/16 18:00 124 09/19/16 17:39 98 40 I/O 09/19/16 09/19/16 09/19/16 09/20/16 09/20/16 09/20/16 07:00 15:00 23:00 07:00 15:00 23:00 Intake Total 724 ml 705 ml 750 ml 709 ml 680 ml Output Total 355 ml 600 ml 3200 ml 760 ml 1015 ml Balance 369 ml 105 ml -2450 ml -51 ml -335 ml IV Total 386 ml 425 ml 329 ml 212 ml 224 ml Tube Feeding 188 ml 280 ml 301 ml 377 ml 456 ml Tube Irrigant 150 ml Other 120 ml 120 ml Stool Total 350 ml 550 ml 650 ml 700 ml 950 ml Drainage Total 5 ml 50 ml 50 ml 60 ml 65 ml Hemodialysis 2500 ml # Voids 0 Result Diagram: 09/20/168 09/20/16 030 Objective Remarks GENERAL: WBWN obese male, on Vent , sedated SKIN: Warm and dry. HEAD: Normocephalic. EYES: No scleral icterus. No injection or drainage. NECK: Supple, trachea midline. No JVD or lymphadenopathy. CARDIOVASCULAR: Regular rate and rhythm without murmurs, gallops, or rubs. RESPIRATORY: Breath sounds equal bilaterally. No accessory muscle use. exp rhonchi GASTROINTESTINAL: Abdomen soft, non-tender, Abd distended MUSCULOSKELETAL: No cyanosis, or edema. BACK: Nontender without obvious deformity. No CVA tenderness. A/P Assessment and Plan Resp Failure, on vent COPD exac S/p robotic surgery Anxiety S/p Exp lap PLAN: Cont vent support, aerosol nebs Nebuliser rx qid and prn Abx per ID Sedation with Fentanyl CPAP trial daily Monitor lyaida Had HD today Robbie Renteria MD Sep 20, 2016 16:08
[2016-09-20] MEDS: GENTAMICIN SULFATE (DIALYSIS USE ONLY) 20 MG/2 ML VIAL IV PRN (17:22)
[2016-09-20] MEDS: SODIUM CHLOR 0.9% 1000 ML INJ 1,000 ML IV PRN (17:22)
[2016-09-20] MEDS: HEPARIN SODIUM - IV 10,000 UNITS/10 ML VIAL PRN (17:23)
[2016-09-20] MEDS: PHENYTOIN SUSP 100 MG/4 ML CUP PO SCH (20:35)
[2016-09-21] VITALS (18 sets, daily range): BP systolic 137–174; BP diastolic 76–99; PULSE 99–125; RESP 22–32; TEMP 100–100.9; O2SAT 99–100
[2016-09-21] MEDS: AZTREONAM INJ 500 MG in SODIUM CHLORIDE 0.9% INJ 100 ML IV SCH ×2 (00:25→12:53)
[2016-09-21] MEDS: SODIUM CHLORIDE 0.9% 10 ML VIAL IV FLUSH SCH ×3 (02:13→17:25)
[2016-09-21] MEDS: ACETAMINOPHEN 325 MG TAB PO PRN ×2 (02:34→10:04)
[2016-09-21] MEDS: RESP: ALBUTEROL 2.5 MG/3 ML NEB (SCH) INH ×6 (03:15→23:54)
[2016-09-21 04:57] LABS: BICARBONATE 31.1 MEQ/L (21.0-32.0); POTASSIUM 4.3 MEQ/L (3.5-5.1)
[2016-09-21] MEDS: metroNIDAZOLE 500 MG INJ 100 ML IV SCH ×3 (05:54→17:24)
[2016-09-21] MEDS: cloNIDine HCL 0.1 MG TAB PO SCH ×3 (05:54→21:27)
[2016-09-21] MEDS: ARTIFICIAL TEARS OPTH SOLN 15 ML BTL EACH EYE SCH ×3 (05:54→21:27)
[2016-09-21] MEDS: SODIUM CHLORIDE 0.9% FLUSH 5 ML FLUSH IVF SCH ×2 (07:33→20:31)
[2016-09-21] MEDS: RESP: SODIUM CHLORIDE 3% 4 ML NEB NEB SCH ×2 (08:00→11:36)
[2016-09-21] MEDS: RESP: ACETYLCYSTEINE 10% 30 ML NEB NEB SCH ×3 (08:06→23:54)
[2016-09-21] MEDS: RESP: BUDESONIDE 0.5 MG/2 ML NEB NEB SCH ×2 (08:06→20:16)
[2016-09-21] MEDS: SODIUM CHLOR 0.9% 1000 ML INJ 1,000 ML IV PRN (08:27)
[2016-09-21] MEDS: HEPARIN SODIUM - IV 10,000 UNITS/10 ML VIAL PRN (08:27)
[2016-09-21] MEDS: GENTAMICIN SULFATE (DIALYSIS USE ONLY) 20 MG/2 ML VIAL IV PRN (08:27)
[2016-09-21] MEDS: MICAFUNGIN INJ 100 MG in SODIUM CHLORIDE 0.9% INJ 100 ML IV SCH (08:47)
[2016-09-21] MEDS: CHLORHEXIDINE 0.12% (ORAL KIT) 15 ML CUP MT SCH ×2 (08:47→19:49)
[2016-09-21] MEDS: PANTOPRAZOLE SODIUM 40 MG VIAL IVP SCH (08:48)
[2016-09-21] MEDS: MUPIROCIN 2% OINT 1 APPLIC/GM SYR EACH NARE SCH ×2 (08:48→20:30)
[2016-09-21] MEDS: CARVEDILOL 3.125 MG TAB PO SCH ×2 (09:42→20:31)
[2016-09-21] MEDS: amLODIPine BESYLATE 5 MG TAB PO SCH ×2 (09:42→20:31)
[2016-09-21] MEDS: CALCIUM ACETATE 667 MG CAP PO SCH ×3 (09:42→17:24)
[2016-09-21] MEDS: HEPARIN SODIUM - SQ 10,000 UNITS/ML VIAL SQ SCH ×2 (10:00→17:24)
--- NOTE | 2016-09-21 10:03 | HHI.NPPN ---
Subjective General Problems: Edema Renal Failure: Acute Interval History Febrile and tachycardic. Seen on dialysis today. (Fransisca Canela) Review of Systems General Constitutional: Fever (Fransisca Canela) Musculoskeletal MS Remarks generalized pain (Fransisca Canela) Objective Data Data 09/20/16 09/21/16 19:00 07:00 Intake Total 680 ml 1358 ml Output Total 1015 ml 1220 ml Balance -335 ml 138 ml IV Total 224 ml 819 ml Tube Feeding 456 ml 539 ml Output Urine Total 0 ml Stool Total 950 ml 1150 ml Drainage Total 65 ml 70 ml Hemodialysis 0 ml Vital Signs Date Time Temp Pulse Resp B/P Pulse Ox O2 Delivery O2 Flow Rate FiO2 09/21/16 08:07 100 40 09/21/16 08:00 116 09/21/16 08:00 40 09/21/16 08:00 100.4 116 32 163/92 100 09/21/16 06:00 107 09/21/16 04:00 40 09/21/16 04:00 102 09/21/16 04:00 100.0 102 22 142/76 100 09/21/16 03:35 99 40 09/21/16 02:00 104 09/21/16 00:00 40 09/21/16 00:00 100.9 104 22 137/88 100 09/21/16 00:00 104 09/20/16 23:13 100 40 09/20/16 22:00 116 09/20/16 20:11 100 40 09/20/16 20:00 40 09/20/16 20:00 101.5 122 24 182/99 100 09/20/16 20:00 120 09/20/16 18:00 122 09/20/16 16:35 100 40 09/20/16 16:00 99.9 101 20 160/88 99 09/20/16 16:00 40 09/20/16 16:00 103 09/20/16 14:00 106 09/20/16 12:00 113 09/20/16 12:00 40 09/20/16 12:00 101.5 113 21 153/96 98 09/20/16 11:40 99 40 09/20/16 11:36 98 40 09/20/16 11:35 40 09/20/16 11:29 98 40 09/20/16 10:00 115 (Fransisca Canela) -: 09/20/16 0308 09/21/16 0331 Microbiology 09/20/16 Gram Stain - Final, Resulted 09/20/16 Wound Culture, Resulted Pending 09/20/16 Gram Stain - Final, Resulted 09/20/16 Wound Culture, Resulted Pending Tubes & Lines: Vas-Cath Tubes & Lines Comment trach TLC, NG tube (R) SERGEI drain RLQ epigastric drain wound vac lower abdomen Drip Comment fentanyl (Fransisca Canela) Physical Exam General Appearance: Well Developed, No Acute Distress Appearance Remarks awake on ventilator via trach, nods yes/no to questions (Fransisca Canela ) Throat Throat Exam: Oral Mucosa [place] & Moist (Fransisca Canela) Neck Neck Remarks trach (Fransisca Canela) Pulmonary Resp Exam: Breath Sounds Equal, No Distress, Crackles, Sputum, Diminished Breath Sounds Resp Remarks vented, increased secretions (Fransisca Canela) Cardiology CV Exam: Regular, Normal Sinus Rhythm (Fransisca Canela) Gastrointestinal/Abdomen GI Exam: Distended GI Remarks distended, not as firm; colostomy with pink/red stoma stool in colostomy bag (Fransisca Canela) Musculoskeletal MS Exam: Joints Intact, Normal Tone (Fransisca Canela) Integumentary Skin Exam: Warm, Dry Skin Remarks below umbilicus, midabdominal wound has dehisced; wound vac left side of incision (Fransisca Canela) Extremeties Extremities Exam: No Edema, Pedal Pulses Palpable (Fransisca Canela) Neurologic Neuro Exam: Awake, Moving All Extremities (Fransisca Canela) VTE Prophylaxis Device: SCDs Meds: Heparin (Fransisca Canela) Assessment/Plan Discussed Condition With: Relative Assessment Summary: VIRIDIANA/Acute Renal Failure, Acute Tubular Necrosis, Fluid/ Volume Overload, Hypertension Problem List: (1) Acute renal failure Plan: He has developed ATN due to sepsis. he is now on daily HD, seen on dialysis today on a 2K, 280 BFR, no fluid removal today he is anuric and highly catabolic vascath in left IJ, placed 09/18; flow is sluggish anuric, monitor for changes previously hyperkalemic, monitor for recurrence Avoid nephrotoxic agents. Monitor drug levels and renally dose medications when appropriate Avoid IVF specifically LR. continue Calcium acetate for hyperphosphatemia, phosphorus has improved daily renal panel (2) Diverticulitis Plan: febrile and tachycardic today; s/p colon resection with complications surgery following. he has multiple drains and wound vac due to wound dehiscence pseudomonas in sputum and wound, it is highly resistant ID following, managing antibiotics. He is now on Aztreonam and Levaquin (which are renally dosed) Micafungin and Flagyl; also intermittent vancomycin; given tobramycin meropenem has been stopped s/p trach placement 09/18 continue tube feeding (Fransisca Canela) Problem List: (1) Acute renal failure Plan: He has developed ATN due to sepsis. he is now on daily HD, seen on dialysis today on a 2K, 280 BFR, no fluid removal today he is anuric and highly catabolic vascath in left IJ, placed 09/18; flow is sluggish anuric, monitor for changes previously hyperkalemic, monitor for recurrence Avoid nephrotoxic agents. Monitor drug levels and renally dose medications when appropriate Avoid IVF specifically LR. continue Calcium acetate for hyperphosphatemia, phosphorus has improved daily renal panel (2) Diverticulitis Plan: febrile and tachycardic today; s/p colon resection with complications surgery following. he has multiple drains and wound vac due to wound dehiscence pseudomonas in sputum and wound, it is highly resistant ID following, managing antibiotics. He is now on Aztreonam and Levaquin (which are renally dosed) Micafungin and Flagyl; also intermittent vancomycin; given tobramycin meropenem has been stopped s/p trach placement 09/18 continue tube feeding Plan patient was seen and examined. Dialyzed again today, however, poor blood flow rate through VasCath. Waste products better. If stable, will dialyze him on Sunday and not tomorrow. Patient is growing Pseudomonas in tracheal aspirate, highly resistant. Nebulized Tobramycin added. Prognosis is guarded. Unfortunately, he may need another Vascath. (Tito Kuo MD) Problem Qualifiers (1) Acute renal failure: Qualified Code: N17.0 - Acute renal failure with tubular necrosis Fransisca Canela Sep 21, 2016 10:02 Tito Kuo MD Sep 21, 2016 12:13
--- NOTE | 2016-09-21 10:27 | HHI.PR ---
Subjective Subjective Notes Awake on MV via trach Objective Vitals/I&O Vital Signs Date Time Temp Pulse Resp B/P Pulse Ox O2 Delivery O2 Flow Rate FiO2 09/21/16 10:00 125 09/21/16 08:07 100 40 09/21/16 08:00 100.4 32 163/92 Labs Laboratory Tests Test 09/21/16 03:31 Sodium Level 137 Potassium Level 4.3 Chloride Level 97 Carbon Dioxide Level 31.1 Anion Gap 9 Blood Urea Nitrogen 49 Creatinine 3.95 Estimat Glomerular Filtration 16 Rate Random Glucose 122 Calcium Level 9.6 Phosphorus Level 4.7 Albumin 2.5 Date/Time Procedure Status Source Growth 09/20/16 14:00 Gram Stain - Final Resulted Wound Drainage 09/20/16 14:00 Wound Culture Resulted Wound Drainage Pending 09/17/16 17:47 Stool Occult Blood (KYUNG) - Final Complete Stool Stool HEMOCCULT POSITIVE 09/17/16 11:45 Aerobic Blood Culture - Preliminary Resulted Blood Other NO GROWTH IN 3 DAYS 09/17/16 11:45 Anaerobic Blood Culture - Preliminary Resulted Blood Other NO GROWTH IN 3 DAYS Cardiovascular: Regular Lungs: Clear Abdomen: Other (Wound vac in place; ileostomy with stool ) Narrative Exam trach with no bloody drainage ---surgicel in place A/P Assessment and Plan 56 year old male s/p robotic assisted lap sigmoid resection with VDRF -POD3 trach placement -Surgicel placed for bleeding on Sunday -Continue to monitor for bleeding -Okay from GS standpoint to start subq Heparin Attending Statement Stable trach ok for heparin Patient seen at bedside Attestation The exam, history, and the medical decision-making described in the above note were completed with the assistance of the mid-level provider. I reviewed and agree with the findings presented. I attest that I had a [id number] encounter with the patient on the same day, and personally performed and documented my assessment and findings in the medical record. Ashly Smiley Sep 21, 2016 10:27 Brayden Howard MD Oct 07, 2016 16:18
--- NOTE | 2016-09-21 10:34 | HHI.PR ---
Subjective Remarks POD#34 s/p robotic LAR/SBR/ANNA MARIE, POD#26 s/p ex lap, washout, diverting loop ileostomy Awakens, responds to questions Objective Vital Signs Date Time Temp Pulse Resp B/P Pulse Ox O2 Delivery O2 Flow Rate FiO2 09/21/16 10:00 125 09/21/16 08:07 100 40 09/21/16 08:00 116 09/21/16 08:00 40 09/21/16 08:00 100.4 116 32 163/92 100 09/21/16 06:00 107 09/21/16 04:00 40 09/21/16 04:00 102 09/21/16 04:00 100.0 102 22 142/76 100 09/21/16 03:35 99 40 09/21/16 02:00 104 09/21/16 00:00 40 09/21/16 00:00 100.9 104 22 137/88 100 09/21/16 00:00 104 09/20/16 23:13 100 40 09/20/16 22:00 116 09/20/16 20:11 100 40 09/20/16 20:00 40 09/20/16 20:00 101.5 122 24 182/99 100 09/20/16 20:00 120 09/20/16 18:00 122 09/20/16 16:35 100 40 09/20/16 16:00 99.9 101 20 160/88 99 09/20/16 16:00 40 09/20/16 16:00 103 09/20/16 14:00 106 09/20/16 12:00 113 09/20/16 12:00 40 09/20/16 12:00 101.5 113 21 153/96 98 09/20/16 11:40 99 40 09/20/16 11:36 98 40 09/20/16 11:35 40 09/20/16 11:29 98 40 I/O 09/20/16 09/20/16 09/20/16 09/21/16 09/21/16 09/21/16 07:00 15:00 23:00 07:00 15:00 23:00 Intake Total 709 ml 680 ml 700 ml 658 ml Output Total 760 ml 1015 ml 690 ml 530 ml 0 ml Balance -51 ml -335 ml 10 ml 128 ml 0 ml IV Total 212 ml 224 ml 549 ml 270 ml Tube Feeding 377 ml 456 ml 151 ml 388 ml Other 120 ml Output Urine Total 0 ml Stool Total 700 ml 950 ml 650 ml 500 ml Tube Feeding Residual Discard 0 ml Drainage Total 60 ml 65 ml 40 ml 30 ml Hemodialysis 0 ml Result Diagram: 09/20/16 0308 09/21/16 0331 Objective Remarks Abdomen soft Wounds clean Drains slight to moderate Assessment and Plan Assessment and Plan CV - BP meds held during dialysis RESP - continue CPAP trials KIDNEY - still anuric,continue HD FEN - tolerating TF's, add probiotic ID - Still with pseudomonas infection, still with temps Add probiotic Elana Moffett MD Sep 21, 2016 10:34
--- NOTE | 2016-09-21 11:10 | HHI.CCPN ---
Subjective Remarks/Hospital Course 08/25: Patient is a 58-year-old male with past medical history significant COPD who, on 08/18/16, underwent Laparoscopic robotic extensive lysis of adhesions, low anterior resection and small bowel resection. Apparently he was brought in by Dr. Moffett for Diverticulitis. Patient has a history of hypertension, COPD, and continues to smoke one pack of cigarettes a day. Postoperatively patient became progressively short of breath. Pulmonary was consulted on 08/21/16 as the patient was becoming more hypoxemic requiring BiPAP. CT of the chest PE protocol did not show any pulmonary embolism. Patient was placed on breathing treatments and IV Solu-Medrol 40 mg every [address] Renteria. Today a.m. patient was on 100% nonrebreather. Patient was diagnosed with an anastomotic leak today and was taken back to the OR by Dr. Moffett. He underwent exploratory laparotomy, I&D and loop ileostomy today. Postop patient remained hypoxemic requiring 70% oxygen, and hence was left intubated and critical care medicine was consulted. Dr. Arce evaluated the patient in ICU. He remained hypoxemic, FiO2 70%. Chest x-ray shows bibasilar mild infiltrates. On sedation lightening patient became very hypertensive, not following commands probably secondary to residual NM blockade received while being transported to ICU. Patient on receiving vancomycin Levaquin and Flagyl per Dr. Moffett. Dr. Arce added cefepime to cover for Pseudomonas. Holding Solu-Medrol due to anastomotic leak. 08/26: Remains sedated, orally intubated on mechanical ventilation. Went into anuric renal failure yesterday which did not respond to fluid boluses and diuretics hence was started on hemodialysis after placement of right IJ Vas- Cath. Currently sedated, arousable, remains orally intubated on mechanical ventilation. Blood pressure borderline last evening following dialysis for which she was started on low-dose vasopressin 0.03 units per minute and Levophed which is currently at 1 jose per minute. Started on TPN last night following which he has been hyperglycemic. 08/27: Sedated, arousable, orally intubated on mechanical ventilation. Spiking fevers overnight. Off Levophed, transiently off vasopressin. Remains on TPN. 08/28: Remains sedated, arousable, orally intubated on mechanical ventilation. On low-dose vasopressin. TPN continues. Made about 500 cc of urine in the last 24 hours. 08/29: In sedated, arousable, orally intubated on mechanical ventilation. Remains on TPN. Dirty drainage from left-sided SERGEI drain noted overnight. Dr. Moffett obtaining CT abdomen pelvis with oral contrast and ID consulted. 08/30: CURRENT TEMPERATURE 99. Status post 4 L hemodialysis today. No current change in therapy. White blood cell count remained stable. Off vasopressors. Arousable to voice. Versed has been discontinued. We'll attempt CPAP trials again today. 08/31: MAXIMUM TEMPERATURE 100.4. Currently 100.1. Currently resting in bed in no acute distress. Continues with scant drainage from bilateral JPs. We'll attempt CPAP trial again today. Positive stool from ostomy bag 09/01: Tmax 99.8. Currently 99.3. Placement of the new right IJ vas catheter today. Plan for IR to possibly drain right lower quadrant fluid collection. Arousable and moves all 4 extremity spontaneously. 09/02: Currently afebrile. Noted placement of iron drain with accordion drain. Growing Pseudomonas. Lasted only 2 hours on CPAP trials today. 09/03: Tolerated SBT for only 30 mins and required PS 20. Not ready to extubate. 09/04: Tachypnea related to anxiety? or metabolic acidosis. Will check VBG. Not tolerating SBT. Anemia. Transfuse during HD. 09/05: Remains very tachypneic on SBTs. Unable to extubate. 09/06: Leukocytosis and bandemia. Acts like ongoing sepsis. 09/07: No significant changes. Afebrile. Tolerating TFs as recommended by CRS. Will transition from TPN to enteral feeds now. 09/08: Bandemia persists. Tolerating full TFs. D/c'd TPN. Glucose control acceptable. 09/09: Tolerating longer CPAP/PS trials. 09/10: Stronger respiratory effort. Try to extubate today. 09/11: Stable hemodynamics, marginal respiratory function. 09/11 update 1800 hrs: Patient developed sudden hyperventilation to 55-60/min, hypertensive urgency to 220/120s, unresponsive state, started versed 10 mg/hr after 10 mg iv. Load with cerebyx, get head CT, EEG in a.m. 09/12: BP and pulse rate control improved with sedation. Etiology unclear. Suspected intracranial process but CT head normal. Possibly seizures. EEG pending this morning. WBC with bandemia persists. 09/13: CURRENT TEMPERATURE 99. Heart rate and blood pressure control. Noted T changes last night noted a potassium 8.2. Noted hemodialysis catheter placed by overnight composition weatherboard installer in right femoral vein and hemodialysis currently undergoing. Plan for drainage of epigastric fluid collection by IR today. 09/14: Currently afebrile. Status post prior drainage of epigastric fluid area. Currently 60 ccwhite pus accordian drain. Status post bronchoscopy yesterday. 09/15 - intubation day #22. Family waiting another 24 hours to consider tracheostomy. He is not able to be extubated. Currently undergoing hemodialysis. Likely dialysis dependent. 09/16: Tmax 100.2. Blood pressure slowly trending downward. He transfuse PRBCs and albumin bolus prior to hemodialysis today. Intubation day #23. Family currently agreeable to tracheostomy but I'm unable to perform until Sunday. Positive BM. 09/17: Tmax 101. Intubation day #24. Tolerating tube feeding. Currently on Versed and fentanyl drips. 09/18: Remains sedated, orally intubated on mechanical ventilation. Scheduled for percutaneous tracheostomy today. Was dialyzed yesterday. Percutaneous drains [address] Ileostomy with good output. Wound VAC in place over anterior abdominal incision site. 09/19: Remains sedated, on mechanical ventilation via tracheostomy. Patient was noted to have some blood oozing from around tracheostomy site this morning as well as around Vas-Cath. Pressure dressing to be applied around Vas-Cath and packing around tracheostomy site and Dr. Howard informed. 09/20: Remains on fentanyl. On mechanical ventilation via tracheostomy. Continues to have fevers. No further bleeding from tracheostomy site or Vas- Cath site. 09/21: Remains on mechanical ventilation via tracheostomy. Resuming subcutaneous heparin today. No further bleeding from Vas-Cath or tracheostomy site. Objective Vital Signs Date Time Temp Pulse Resp B/P Pulse Ox O2 Delivery O2 Flow Rate FiO2 09/21/16 10:00 125 09/21/16 08:07 100 40 09/21/16 08:00 100.4 32 163/92 Intake and Output 09/20/16 09/20/16 09/21/16 08:00 16:00 00:00 Intake Total 709 ml 680 ml 700 ml Output Total 760 ml 1015 ml 690 ml Balance -51 ml -335 ml 10 ml Result Diagram: 09/20/16 0308 09/21/16 0331 Imaging Last Impressions Chest X-Ray 09/17/16 06 Signed Impressions: Service Date/Time: Saturday, September 17, 2016 04:43 - CONCLUSION: Unchanged bilateral filtrates. Evelio Hitchcock Jr., MD Abscess Drainage CT 09/13/16 Signed Impressions: Service Date/Time: Tuesday, September 13, 2016 14:30 - CONCLUSION: Uncomplicated CT guided drainage. Carlo Cortes MD Head CT 09/11/16 Signed Impressions: Service Date/Time: Sunday, September 11, 2016 18:41 - CONCLUSION: Normal examination for a patient of this age. Dave Easton MD Abdomen/Pelvis CT 09/11/16 Signed Impressions: Service Date/Time: Monday, September 12, 2016 04:12 - CONCLUSION: 1. Small bowel dilatation has resolved. 2. Postsurgical changes are identified with increase in size of epigastric fluid collection, but decreased fluid within the mesentery and right paracolic region. 3. There is no evidence for enteric contrast media extravasation. 4. Pulmonary consolidation and effusions. Romel Kohli MD Retroperitoneal Abscess Drainage 09/01/16 06 Signed Impressions: Service Date/Time: Thursday, September 01, 2016 13:05 - CONCLUSION: Uncomplicated CT guided drainage of a right lower quadrant fluid collection. Approximately 75 cc of fecal-like brown material was aspirated. The air and fluid collection may communicate with the inferior aspect of the midline wound on the anterior abdominal wall. Claude Carrasco MD Abdomen X-Ray 08/24/16 Signed Impressions: Service Date/Time: August 07:44 - CONCLUSION: Gaseous distention of multiple bowel loops possible ileus. Jony Miller MD Enema w/Water Soluble 08/23/16 Signed Impressions: Service Date/Time: Tuesday, August 23, 2016 10:12 - CONCLUSION: Anastomosis appears patent without extravasation. Aditya Rocha MD FACR CT Angiography 08/21/16 0000 Signed Impressions: Service Date/Time: Sunday, August 21, 2016 14:05 - CONCLUSION: 1. There is no evidence for central pulmonary emboli. 2. Minimal subcutaneous air as well as free intraperitoneal air. Aditya Rocha MD FACR Objective Remarks GENERAL: 56-year-old male, critically ill, currently on mechanical ventilation via tracheostomy SKIN: Warm. Dry. No rash HEAD: Atraumatic. Normocephalic. ENT: mucosa moist NECK: Tracheostomy in place. LIJ Vas-Cath in place CARDIOVASCULAR: Tachy, IR. S1, S2. No S4. No m/c/g/r. RESPIRATORY: On mechanical ventilation, scattered rhonchi, no wheezing. GASTROINTESTINAL: Abdomen non distended. Midline incision clean and intact. BS active. Ostomy pink with brown stool. 2 accordion drain, 1 SER[address] and vac in place. MUSCULOSKELETAL: Extremities with Tr+ bilateral upper and lower extremity edema , well perfused. NEUROLOGICAL:Pupils equal round and reactive 2 mm bilaterally. Grimaces with suctioning. Date of Insertion: Aug 31, 2016 Date of Removal: Sep 12, 2016 Side: Right A/P Assessment and Plan NEURO/PSYCH: History of anxiety Acute toxic metabolic encephalopathymultifactorial Off Versed, titrate off fentanyl gtt as tolerated Acetaminophen for fever Haldol 1 mg every 4 hours when necessary Ativan 0.5 mg every one hour when necessary agitation Morphine sulfate 3 milligrams IV every 3 hours when necessary pain -Daily sedation vacation, follow neuro status. -Head CT 09/11 no acute intracranial findings -EEG 09/12 revealed mild to moderate encephalopathy. No epileptiform activity. Currently on Cerebyx 300 mg liquid at night. Level 5.7 on 09/18 RESP: Acute hypoxemic respiratory failure COPD exacerbation Probable healthcare associated pneumonia -Continue ACV 22/600 0.75/8/50 Ventilator bundle -Albuterol nebs every 4 hours scheduled and when necessary duo nebs, Symbicort 2 puffs every 12 was discontinued while in ventilator. Continue Pulmicort 0.5/2 twice a day -Broad-spectrum antibiotics as below -Continue daily C Pap trials. Dr. Renteria/Pulmonary following Increase SBTs length as able. s/p tracheostomy 09/18 CV: Hypotension secondary to septic shock resolved History of hypertension -Received multiple fluid boluses on 08/25. IV fluids discontinued subsequently in view of anuria necessitating hemodialysis. Off all vasopressors -Attempt negative fluid balance with hemodialysis. Currently on clonidine 0.1 3 times a day, Norvasc 5 mg twice a day and Coreg 6.25 twice a day. Decreased Norvasc daily and Coreg 3.125 twice a day with holding parameters for all 3 blood pressure medications. Labetalol prn GI/ Nutrition: Anastomotic leak status post exploratory laparotomy, I&D, loop ileostomy 08/24/16 s/p Laparoscopic robotic extensive ANNA MARIE, robotic LAR and small bowel resection Laparoscopic robotic ANNA MARIE, robotic LAR and small bowel resection with anastomotic leak History of diverticulitis -Status post exploratory laparotomy, I&D, loop ileostomy 08/24/16 -Postoperative management per Dr. Moffett. Broad-spectrum antibiotics as below. positive ostomy output CT abdomen pelvis with oral contrast 08/29 reveal small bowel ileus. Serous fluid collection likely postoperative changes. - On Reglan to improve GI motility -Started on TPN 08/25 at 65 cc an hour with lipids daily. This is been discontinued Resumed on Glucerna 1.5 goal 60 cc an hour. Protonix for GI prophylaxis Accordion drain to right lower quadrant 09/01 by IR. Right lower quadrant SERGEI. LLQ SERGEI has been discontinued Vac-Pac medial. Accordion to epigastric drain with purulent white drainage. Renal/: Acute kidney injury History BPH Status post bilateral ureteral stents placed by Dr. Fraser 08/18 -Monitor renal function closely. Mg catheter. -IV fluids discontinued in view of anuric renal failure and hyperkalemia necessitating hemodialysis. Nephrology consulted and following. -Attempt maintaining even to slightly negative fluid balance. New right IJ hemodialysis catheter placed 09/01 -> D/C 09/13. New right femoral hemodialysis catheter placed 09/13 -> D/C 09/19 New LIJ vascath placed 09/18 ID: Anastomotic leak Sepsis Probable HCAP -IV vancomycin, Flagyl and Levaquin per Dr. Moffett. Levaquin discontinued . Zosyn started 09/02- 09/16. Flagyl and micafungin per ID added. Merrem added 09/15 Pertinent culture 09/13 - bronchial -Pseudomonas 09.13 - abdomen abscess -Pseudomonas/yeast 09/01: Abdominal wound - Pseudomonas, enterococcus, Iram 08/31 - line culture Pseudomonas/coag negative staph 08/31 - blood cultures 2 -no growth 08/31 - sputum - pending 08/29 - wound - Pseudomonas, group D enterococcus, C. albicans and yeast 08/25 blood cultures - no growth 08/25 sputum - Serratia/Klebsiella/Pseudomonas 08/24 - wound - no growth HEME: Leukocytosis Normocytic anemia Thrombocytosis RIJ DVT (nonocclusive) -Monitor CBC, CMP, coags - On anticoagulation with heparin (for right IJ nonocclusive thrombus/ left cephalic vein) which is on hold since 09/11 7 AM and continues to remain on hold following tracheostomy due to bleeding from site earlier on 09/19. Starting subcutaneous heparin on 09/21 and if no bleeding will consider advancing to full anticoagulation. ENDO: -Sliding-scale insulin for glycemic control. Levemir 20 units twice a day FEN: Hyperphosphatemia Continue PhosLo 667 mg 3 times a day for hyperphosphatemia. Hemodialysis per renal. PROPH: -Bilateral lower extremity SCDs. Heparin gtt for RIJ DVT (held 09/18 for scheduled trach). Protonix for GI prophylaxis LINES: -Left subclavian central line placed in the OR 08/24 - 08/31. Right subclavian central line placed 08/31 - 09/11 - RIJ dialysis catheter 08/25 -08/31. New right IJ hemodialysis catheter 09/01 - - Right femoral hemodialysis catheter 09/13 Critical Care: The total critical care time was 40 minutes. Time to perform other separately billable procedures was not included in the critical care time. Satya Qualres MD Sep 21, 2016 11:10
--- NOTE | 2016-09-21 11:48 | HHI.IDPN ---
Note Infectious Disease Note Discussed with RN. Patient is on the vent. Placed in stretcher chair. Sweating. Temp 101.7 Awakens. Sedated. WBC remain elevated. Pseudomonas in sputum is very resistant. Moderate henry ETT secretions. Moderate mid upper abdomen drainage. Lower abdominal drain removed. No UO. Post trach 09/18. LIJ dialysis catheter. 09/18. PAST MEDICAL HISTORY 1. Diverticulitis. 2. COPD. 3. Hypertension. 4. Anxiety disorder. 5. BPH. 6. History of tonsillectomy. ALLERGIES No known drug allergies. ANTIBIOTICS 1. Micafungin. 2. Aztreonam. 3. Levaquin. 4. Tobramycin IV intermittent dose give on 09/20. 3. Vancomycin periodic. 4. Flagyl. OBJECTIVE: Vital Signs Date Time Temp Pulse Resp B/P Pulse Ox O2 Delivery O2 Flow Rate FiO2 09/21/16 10:00 125 09/21/16 08:07 100 40 09/21/16 08:00 116 09/21/16 08:00 40 09/21/16 08:00 100.4 116 32 163/92 100 09/21/16 06:00 107 09/21/16 04:00 40 09/21/16 04:00 102 09/21/16 04:00 100.0 102 22 142/76 100 09/21/16 03:35 99 40 09/21/16 02:00 104 09/21/16 00:00 40 09/21/16 00:00 100.9 104 22 137/88 100 09/21/16 00:00 104 09/20/16 23:13 100 40 09/20/16 22:00 116 09/20/16 20:11 100 40 09/20/16 20:00 40 09/20/16 20:00 101.5 122 24 182/99 100 09/20/16 20:00 120 09/20/16 18:00 122 09/20/16 16:35 100 40 09/20/16 16:00 99.9 101 20 160/88 99 09/20/16 16:00 40 09/20/16 16:00 103 09/20/16 14:00 106 09/20/16 12:00 113 09/20/16 12:00 40 09/20/16 12:00 101.5 113 21 153/96 98 09/20/16 09/20/16 09/21/16 15:00 23:00 07:00 Intake Total 680 ml 700 ml 658 ml Output Total 1015 ml 690 ml 530 ml Balance -335 ml 10 ml 128 ml IV Total 224 ml 549 ml 270 ml Tube Feeding 456 ml 151 ml 388 ml Output Urine Total 0 ml Stool Total 950 ml 650 ml 500 ml Drainage Total 65 ml 40 ml 30 ml Hemodialysis 0 ml Laboratory Tests Test 09/20/16 03:08 White Blood Count 23.3 TH/MM3 Red Blood Count 3.31 MIL/MM3 Hemoglobin 9.4 GM/DL Hematocrit 28.2 % Mean Corpuscular Volume 85.0 FL Mean Corpuscular Hemoglobin 28.4 PG Mean Corpuscular Hemoglobin 33.4 % Concent Red Cell Distribution Width 15.5 % Platelet Count 362 TH/MM3 Mean Platelet Volume 8.5 FL Neutrophils (%) (Auto) 77.6 % Lymphocytes (%) (Auto) 9.1 % Monocytes (%) (Auto) 10.3 % Eosinophils (%) (Auto) 2.1 % Basophils (%) (Auto) 0.9 % Neutrophils # (Auto) 18.1 TH/MM3 Lymphocytes # (Auto) 2.1 TH/MM3 Monocytes # (Auto) 2.4 TH/MM3 Eosinophils # (Auto) 0.5 TH/MM3 Basophils # (Auto) 0.2 TH/MM3 CBC Comment AUTO DIFF Differential Total Cells 100 Counted Neutrophils % (Manual) 76 % Band Neutrophils % 6 % Lymphocytes % 3 % Monocytes % 6 % Eosinophils % 3 % Neutrophils # (Manual) 20.5 TH/MM3 Metamyelocytes 6 % Differential Comment FINAL DIFF MANUAL Platelet Estimate HIGH Platelet Morphology Comment NORMAL Laboratory Tests Test 09/20/16 09/21/16 03:08 03:31 Sodium Level 136 MEQ/L 137 MEQ/L Potassium Level 4.7 MEQ/L 4.3 MEQ/L Chloride Level 97 MEQ/L 97 MEQ/L Carbon Dioxide Level 27.8 MEQ/L 31.1 MEQ/L Anion Gap 11 MEQ/L 9 MEQ/L Blood Urea Nitrogen 49 MG/DL 49 MG/DL Creatinine 4.20 MG/DL 3.95 MG/DL Estimat Glomerular Filtration 15 ML/MIN 16 ML/MIN Rate Random Glucose 130 MG/DL 122 MG/DL Calcium Level 9.7 MG/DL 9.6 MG/DL Total Bilirubin 1.0 MG/DL Aspartate Amino Transf 55 U/L (AST/SGOT) Alanine Aminotransferase 20 U/L (ALT/SGPT) Alkaline Phosphatase 419 U/L Total Protein 8.9 GM/DL Albumin 2.6 GM/DL 2.5 GM/DL Phosphorus Level 4.7 MG/DL Microbiology Date/Time Procedure Status Source Growth 09/20/16 14:00 Gram Stain - Final Resulted Wound Abdomen 09/20/16 14:00 Wound Culture Resulted Wound Abdomen Pending 09/20/16 14:00 Gram Stain - Final Resulted Wound Drainage 09/20/16 14:00 Wound Culture Resulted Wound Drainage Pending Microbiology Date/Time Procedure Status Source Growth 09/17/16 12:50 Gram Stain - Final Resulted Sputum Endotracheal 09/17/16 12:50 Sputum Culture - Preliminary Resulted Pseudomonas Aeruginosa 09/17/16 17:47 Stool Occult Blood (KYUNG) - Final Complete Stool Stool HEMOCCULT POSITIVE Microbiology Date/Time Procedure Status Source Growth 09/17/16 11:15 Aerobic Blood Culture - Preliminary Resulted Blood Peripheral NO GROWTH IN 2 DAYS 09/17/16 11:15 Anaerobic Blood Culture - Preliminary Resulted Blood Peripheral NO GROWTH IN 2 DAYS 09/17/16 11:45 Aerobic Blood Culture - Preliminary Resulted Blood Other NO GROWTH IN 2 DAYS 09/17/16 11:45 Anaerobic Blood Culture - Preliminary Resulted Blood Other NO GROWTH IN 2 DAYS 09/17/16 12:50 Gram Stain - Final Resulted Sputum Endotracheal 09/17/16 12:50 Sputum Culture - Preliminary Resulted Pseudomonas Aeruginosa 09/17/16 17:47 Stool Occult Blood (KYUNG) - Final Complete Stool Stool HEMOCCULT POSITIVE Microbiology Date/Time Procedure Status Source Growth 09/13/16 15:03 Gram Stain - Final Resulted Abscess Abdomen 09/13/16 15:03 Wound Culture - Preliminary Resulted Gram Negative Denis 09/13/16 17:20 Gram Stain - Final Resulted Bronchial Washings Right Mid Lobe 09/13/16 17:20 Bronchial Culture - Preliminary Resulted Pseudomonas Aeruginosa 09/13/16 17:20 Acid Fast Stain Worksheet Bronchial Washings Right Mid Lobe Pending 09/13/16 17:20 Mycobacterial Culture Worksheet Bronchial Washings Right Mid Lobe Pending 09/13/16 17:20 Fungal Smear - Final Resulted Bronchial Washings Right Mid Lobe NO FUNGAL ELEMENTS SEEN. 09/13/16 17:20 Fungal Culture Resulted Bronchial Washings Right Mid Lobe Pending Imaging: Chest X-Ray 09/18/16599 Signed Impressions: Service Date/Time: Sunday, September 18, 2016 04:33 - CONCLUSION: Stable bilateral patchy densities greater throughout the right lung. Jony Miller MD Chest X-Ray 09/17/1600 Signed Impressions: Service Date/Time: Saturday, September 17, 2016 04:43 - CONCLUSION: Unchanged bilateral filtrates. Evelio Hitchcock Jr., MD Upper Extremity Ultrasound 09/17/16 Signed Impressions: Service Date/Time: Saturday, September 17, 2016 16:48 - CONCLUSION: 1. Positive nonocclusive deep venous thrombosis right internal jugular vein. 2. Nonocclusive superficial thrombosis in the left cephalic vein. Miki Banerjee MD Lower Extremity Ultrasound 09/17/16 Signed Impressions: Service Date/Time: Saturday, September 17, 2016 17:33 - CONCLUSION: Normal examination. Miki Banerjee MD Head CT 09/17/16 Signed Impressions: Service Date/Time: Saturday, September 17, 2016 20:47 - CONCLUSION: 1. No acute intracranial abnormalities. Miki Banerjee MD Chest CT 09/17/16 Signed Impressions: Service Date/Time: Saturday, September 17, 2016 20:46 - CONCLUSION: 1. Multifocal airspace consolidation in the lungs, right greater than left most characteristic of bronchopneumonia. There is underlying mild to moderate emphysema. Small effusions. Miki Banerjee MD Abdomen/Pelvis CT 09/17/16 Signed Impressions: Service Date/Time: Saturday, September 17, 2016 20:50 - CONCLUSION: 1. Interval placement of drain in upper abdomen anteriorly with decrease in size of fluid collection as above. No new fluid collections within the abdomen and pelvis. 2. Right lower quadrant drain remains. Previous left drain has been removed. NG coiled in stomach. Miki Banerjee MD Head CT 09/11/16 Signed Impressions: Service Date/Time: Sunday, September 11, 2016 18:41 - CONCLUSION: Normal examination for a patient of this age. Dave Easton MD Abdomen/Pelvis CT 09/11/16 Signed Impressions: Service Date/Time: Monday, September 12, 2016 04:12 - CONCLUSION: 1. Small bowel dilatation has resolved. 2. Postsurgical changes are identified with increase in size of epigastric fluid collection, but decreased fluid within the mesentery and right paracolic region. 3. There is no evidence for enteric contrast media extravasation. 4. Pulmonary consolidation and effusions. Romel Kohli MD Chest X-Ray 09/03/16 0600 Signed Impressions: Service Date/Time: Saturday, September 03, 2016 04:03 - CONCLUSION: Stable left lower lobe consolidation and right lower lung infiltrates. Evelio Boyd MD Retroperitoneal Abscess Drainage 09/01/16 0600 Signed Impressions: Service Date/Time: Thursday, September 01, 2016 13:05 - CONCLUSION: Uncomplicated CT guided drainage of a right lower quadrant fluid collection. Approximately 75 cc of fecal-like brown material was aspirated. The air and fluid collection may communicate with the inferior aspect of the midline wound on the anterior abdominal wall. Claude Carrasco MD Abdomen/Pelvis CT 08/29/16 0000 Signed Impressions: Service Date/Time: Monday, August 29, 2016 17:12 - CONCLUSION: Post surgical changes following partial colon resection. Persistent pockets of fluid. Largest is located in the pelvis and contains an air-fluid level. Abscess formation cannot be excluded. Small bowel ileus Bibasilar airspace disease and pleural effusions Aakash Iqbal MD Abdomen X-Ray 08/24/16 0000 Signed Impressions: Service Date/Time: August 07:44 - CONCLUSION: Gaseous distention of multiple bowel loops possible ileus. Jony Miller MD Enema w/Water Soluble 08/23/16 0000 Signed Impressions: Service Date/Time: Tuesday, August 23, 2016 10:12 - CONCLUSION: Anastomosis appears patent without extravasation. Aditya Rocha MD FACR CT Angiography 08/21/16 0000 Signed Impressions: Service Date/Time: Sunday, August 21, 2016 14:05 - CONCLUSION: 1. There is no evidence for central pulmonary emboli. 2. Minimal subcutaneous air as well as free intraperitoneal air. Aditya Rocha MD FACR PHYSICAL EXAMINATION GENERAL: Sedated. On the ventilator. Awakens. HEENT: No icterus. Trach in place. NECK: No adenopathy or swelling. LUNGS: Coarse rhonchi bilateral. HEART: Regular rate and rhythm. No audible murmurs, rubs or gallops. ABDOMEN: Positive bowel sounds. Wound vac in place has serous drainage. 1 Accordion abdominal drain has light chocolate colored drainage. EXTREMITIES: No clubbing or cyanosis. No edema. Distal pulses 2+. SKIN: No rash. NEUROLOGIC: Unable to fully assess. IMPRESSION 1. Sepsis. Pseudomonas on CVL culture of removed line. 2. Peritonitis. Post abdominal surgery/Bowel resection - enterococcus, pseudomonas and yeast. 3. Pneumonia. pseudomonas ( resistant strain). 4. Leukocytosis secondary to infection. WBC still elevated. 5. Acute renal failure. 6. Acute respiratory failure. Remains vent. dependent. 7. Thrombosis R. internal Jugular vein. 8. Fever persistent. Probably because of resistant organism. ? line vs intra abdominal infection vs PNA. RECOMMENDATIONS 1. Continue Micafungin. 2. Continue Aztreonam. Adjusted for renal function. 3. Add Tobramycin nebulized. 4. Continue Levaquin. Adjusted for renal function. 5. Tobramycin level. 6. Continue Flagyl. 7. Follow culture of abdominal drainage. 8. Monitor white blood cell count. 9. Monitor temps. 10. Vancomycin dose today. 11. Follow additional sensitivities on the pseudomonas. Zerbaxa,Avycaz, Colistin. 12. Repeat CXR. 13. Repeat abdominal CT scan. Tim Apodaca MD Sep 21, 2016 11:48
[2016-09-21] MEDS: LABETALOL HCL 100 MG/20 ML VIAL IV PUSH PRN ×2 (11:50→20:41)
[2016-09-21] MEDS: LACTOBACILLUS ACIDOPHILUS TAB NG SCH ×2 (12:53→17:25)
[2016-09-21] MEDS ORDERED: VANCOMYCIN INJ 1,000 MG in SODIUM CHLOR 0.9% 250 ML INJ 250 ML IV ONE (13:00)
--- NOTE | 2016-09-21 14:04 | RADRPT ---
EXAM DATE/TIME: 09/21/2016 12:39 [facility] COMPARISON: CHEST SINGLE AP, September 18, 2016, 13:47. INDICATIONS : Short of breath, pneumonia MEDICAL HISTORY : Chronic obstructive pulmonary disease. SURGICAL HISTORY : None. ENCOUNTER: Subsequent ACUITY: 3 weeks PAIN SCORE: Non-responsive. LOCATION: Bilateral chest FINDINGS: Single AP view of the chest. Tracheostomy tube, nasogastric tube, and left IJ central venous catheter remain in place. Patchy opacity at the lung bases less prominent than on the comparison study. Cardi omediastinal silhouette within normal limits. No evidence of pleural effusion or pneumothorax. CONCLUSION: Decreasing bilateral pulmonary opacity with residual atelectasis at the right lung base. Javier Aguilar MD on September 21, 2016 at 14:01 Board Certified Radiologist. This report was verified electronically.
--- NOTE | 2016-09-21 18:20 | HHI.PR ---
Subjective Remarks YOAA male with robotic surgery,COPD exac Underwent exp lap,I&d and loop iliostomy placement Remains on vent Had Trach no fever Alert,awake, follows commands On ACV had HD today Objective Vital Signs Vital Signs Date Time Temp Pulse Resp B/P Pulse Ox O2 Delivery O2 Flow Rate FiO2 09/21/16 16:02 100 40 09/21/16 16:00 112 09/21/16 16:00 40 09/21/16 16:00 100.3 112 25 161/97 100 09/21/16 14:00 112 09/21/16 12:00 106 09/21/16 12:00 100.4 116 32 163/92 100 09/21/16 12:00 40 09/21/16 11:39 100 40 09/21/16 10:00 125 09/21/16 08:07 100 40 09/21/16 08:00 116 09/21/16 08:00 40 09/21/16 08:00 100.4 116 32 163/92 100 09/21/16 06:00 107 09/21/16 04:00 40 09/21/16 04:00 102 09/21/16 04:00 100.0 102 22 142/76 100 09/21/16 03:35 99 40 09/21/16 02:00 104 09/21/16 00:00 40 09/21/16 00:00 100.9 104 22 137/88 100 09/21/16 00:00 104 09/20/16 23:13 100 40 09/20/16 22:00 116 09/20/16 20:11 100 40 09/20/16 20:00 40 09/20/16 20:00 101.5 122 24 182/99 100 09/20/16 20:00 120 I/O 09/20/16 09/20/16 09/20/16 09/21/16 09/21/16 09/21/16 07:00 15:00 23:00 07:00 15:00 23:00 Intake Total 709 ml 680 ml 700 ml 658 ml 888 ml Output Total 760 ml 1015 ml 690 ml 530 ml 855.0 ml 0 ml Balance -51 ml -335 ml 10 ml 128 ml 33.0 ml 0 ml IV Total 212 ml 224 ml 549 ml 270 ml 399 ml Tube Feeding 377 ml 456 ml 151 ml 388 ml 429 ml Tube Irrigant 60 ml Other 120 ml Output Urine Total 0 ml Stool Total 700 ml 950 ml 650 ml 500 ml 825 ml Tube Feeding Residual Discard 0 ml 0 ml Drainage Total 60 ml 65 ml 40 ml 30 ml 30 ml Hemodialysis 0 ml 0 ml Result Diagram: 09/20/16 0308 09/21/16 0331 Objective Remarks GENERAL: WBWN obese male, on Vent , sedated SKIN: Warm and dry. HEAD: Normocephalic. EYES: No scleral icterus. No injection or drainage. NECK: Supple, trachea midline. No JVD or lymphadenopathy. CARDIOVASCULAR: Regular rate and rhythm without murmurs, gallops, or rubs. RESPIRATORY: Breath sounds equal bilaterally. No accessory muscle use. exp rhonchi GASTROINTESTINAL: Abdomen soft, non-tender, Abd distended MUSCULOSKELETAL: No cyanosis, or edema. BACK: Nontender without obvious deformity. No CVA tenderness. A/P Assessment and Plan Resp Failure, on vent COPD exac S/p robotic surgery Anxiety S/p Exp lap PLAN: Cont vent support, aerosol nebs Nebuliser rx qid and prn Abx per ID Watson Nebs Sedation with Fentanyl CPAP trial in AM Monitor Robbie Keller MD Sep 21, 2016 18:20
[2016-09-21] MEDS: PHENYTOIN SUSP 100 MG/4 ML CUP PO SCH (20:31)
[2016-09-21] MEDS: RESP: TOBRAMYCIN SULFATE 300 MG/5 ML NEB NEB SCH (20:40)
[2016-09-21] MEDS: MORPHINE SULFATE 4 MG/ML INJ IV PRN (20:54)
[2016-09-22] VITALS (17 sets, daily range): BP systolic 129–169; BP diastolic 79–119; PULSE 97–110; RESP 18–32; TEMP 100–100.7; O2SAT 98–100
[2016-09-22] MEDS: AZTREONAM INJ 500 MG in SODIUM CHLORIDE 0.9% INJ 100 ML IV SCH ×2 (00:06→12:51)
[2016-09-22] MEDS: metroNIDAZOLE 500 MG INJ 100 ML IV SCH ×5 (00:07→22:32)
[2016-09-22] MEDS: SODIUM CHLORIDE 0.9% 10 ML VIAL IV FLUSH SCH ×3 (01:51→16:43)
[2016-09-22] MEDS: HEPARIN SODIUM - SQ 10,000 UNITS/ML VIAL SQ SCH ×3 (02:53→16:43)
[2016-09-22] MEDS: RESP: ALBUTEROL 2.5 MG/3 ML NEB (SCH) INH ×5 (04:42→20:42)
[2016-09-22] MEDS: fentaNYL 2,500 MCG/NS 250 ML IV SCH (04:53)
[2016-09-22 05:18] LABS: AUTOMATED NEUTROPHIL # 15.5 TH/MM3 (1.8-7.7); BASOPHIL # 0.2 TH/MM3 (0-0.2); EOSINOPHIL # 0.5 TH/MM3 (0-0.4); EOSINOPHIL % 2.4 % (0.0-4.0); HEMATOCRIT 26.4 % (39.0-51.0); LYMPH % 9.5 % (9.0-44.0); LYMPHOCYTE # 1.9 TH/MM3 (1.0-4.8); MEAN CORPUSCULAR HEMOGLOBIN 28.6 PG (27.0-34.0); MEAN CORPUSCULAR HGB CONC 33.6 % (32.0-36.0); MONO % 11.6 % (0.0-8.0); NEUT % 75.5 % (16.0-70.0); PLATELET COUNT 403 TH/MM3 (150-450); RED CELL DISTRIBUTION WIDTH 15.8 % (11.6-17.2); WHITE BLOOD COUNT 20.5 TH/MM3 (4.0-11.0)
[2016-09-22 05:23] LABS: HEMO FLAGS AUTO DIFF
[2016-09-22 05:47] LABS: POTASSIUM 4.5 MEQ/L (3.5-5.1)
[2016-09-22] MEDS: ARTIFICIAL TEARS OPTH SOLN 15 ML BTL EACH EYE SCH ×3 (06:37→21:45)
[2016-09-22] MEDS: cloNIDine HCL 0.1 MG TAB PO SCH ×3 (06:37→21:44)
[2016-09-22 06:55] LABS: BANDS 3 % (0-6); BASOPHILS 2 % (0-2); EOSINOPHILS 5 % (0-4); METAMYELOCYTES 2 % (0-1); NEUTROPHIL # MANUAL DIFF 16.6 TH/MM3 (1.8-7.7); POLYS (SEG NEUTROPHILS) 76 % (16-70); WBC DIFF SAMPLE 100
[2016-09-22 06:56] LABS: PLATELET ESTIMATE SMEAR NORMAL (NORMAL); PLATELET MORPHOLOGY NORMAL (NORMAL); SCAN/DIFF FINAL DIFF MANUAL
[2016-09-22] MEDS: SODIUM CHLORIDE 0.9% FLUSH 5 ML FLUSH IVF SCH ×2 (07:35→20:29)
[2016-09-22] MEDS: RESP: BUDESONIDE 0.5 MG/2 ML NEB NEB SCH ×2 (07:51→20:42)
[2016-09-22] MEDS: LABETALOL HCL 100 MG/20 ML VIAL IV PUSH PRN ×2 (08:13→13:10)
--- NOTE | 2016-09-22 08:36 | HHI.CCPN ---
Subjective Remarks/Hospital Course 08/25: Patient is a 58-year-old male with past medical history significant COPD who, on 08/18/16, underwent Laparoscopic robotic extensive lysis of adhesions, low anterior resection and small bowel resection. Apparently he was brought in by Dr. Moffett for Diverticulitis. Patient has a history of hypertension, COPD, and continues to smoke one pack of cigarettes a day. Postoperatively patient became progressively short of breath. Pulmonary was consulted on 08/21/16 as the patient was becoming more hypoxemic requiring BiPAP. CT of the chest PE protocol did not show any pulmonary embolism. Patient was placed on breathing treatments and IV Solu-Medrol 40 mg every [address] Renteria. Today a.m. patient was on 100% nonrebreather. Patient was diagnosed with an anastomotic leak today and was taken back to the OR by Dr. Moffett. He underwent exploratory laparotomy, I&D and loop ileostomy today. Postop patient remained hypoxemic requiring 70% oxygen, and hence was left intubated and critical care medicine was consulted. Dr. Arce evaluated the patient in ICU. He remained hypoxemic, FiO2 70%. Chest x-ray shows bibasilar mild infiltrates. On sedation lightening patient became very hypertensive, not following commands probably secondary to residual NM blockade received while being transported to ICU. Patient on receiving vancomycin Levaquin and Flagyl per Dr. Moffett. Dr. Arce added cefepime to cover for Pseudomonas. Holding Solu-Medrol due to anastomotic leak. 08/26: Remains sedated, orally intubated on mechanical ventilation. Went into anuric renal failure yesterday which did not respond to fluid boluses and diuretics hence was started on hemodialysis after placement of right IJ Vas- Cath. Currently sedated, arousable, remains orally intubated on mechanical ventilation. Blood pressure borderline last evening following dialysis for which she was started on low-dose vasopressin 0.03 units per minute and Levophed which is currently at 1 jose per minute. Started on TPN last night following which he has been hyperglycemic. 08/27: Sedated, arousable, orally intubated on mechanical ventilation. Spiking fevers overnight. Off Levophed, transiently off vasopressin. Remains on TPN. 08/28: Remains sedated, arousable, orally intubated on mechanical ventilation. On low-dose vasopressin. TPN continues. Made about 500 cc of urine in the last 24 hours. 08/29: In sedated, arousable, orally intubated on mechanical ventilation. Remains on TPN. Dirty drainage from left-sided SERGEI drain noted overnight. Dr. Moffett obtaining CT abdomen pelvis with oral contrast and ID consulted. 08/30: CURRENT TEMPERATURE 99. Status post 4 L hemodialysis today. No current change in therapy. White blood cell count remained stable. Off vasopressors. Arousable to voice. Versed has been discontinued. We'll attempt CPAP trials again today. 08/31: MAXIMUM TEMPERATURE 100.4. Currently 100.1. Currently resting in bed in no acute distress. Continues with scant drainage from bilateral JPs. We'll attempt CPAP trial again today. Positive stool from ostomy bag 09/01: Tmax 99.8. Currently 99.3. Placement of the new right IJ vas catheter today. Plan for IR to possibly drain right lower quadrant fluid collection. Arousable and moves all 4 extremity spontaneously. 09/02: Currently afebrile. Noted placement of iron drain with accordion drain. Growing Pseudomonas. Lasted only 2 hours on CPAP trials today. 09/03: Tolerated SBT for only 30 mins and required PS 20. Not ready to extubate. 09/04: Tachypnea related to anxiety? or metabolic acidosis. Will check VBG. Not tolerating SBT. Anemia. Transfuse during HD. 09/05: Remains very tachypneic on SBTs. Unable to extubate. 09/06: Leukocytosis and bandemia. Acts like ongoing sepsis. 09/07: No significant changes. Afebrile. Tolerating TFs as recommended by CRS. Will transition from TPN to enteral feeds now. 09/08: Bandemia persists. Tolerating full TFs. D/c'd TPN. Glucose control acceptable. 09/09: Tolerating longer CPAP/PS trials. 09/10: Stronger respiratory effort. Try to extubate today. 09/11: Stable hemodynamics, marginal respiratory function. 09/11 update 1800 hrs: Patient developed sudden hyperventilation to 55-60/min, hypertensive urgency to 220/120s, unresponsive state, started versed 10 mg/hr after 10 mg iv. Load with cerebyx, get head CT, EEG in a.m. 09/12: BP and pulse rate control improved with sedation. Etiology unclear. Suspected intracranial process but CT head normal. Possibly seizures. EEG pending this morning. WBC with bandemia persists. 09/13: CURRENT TEMPERATURE 99. Heart rate and blood pressure control. Noted T changes last night noted a potassium 8.2. Noted hemodialysis catheter placed by overnight renewals specialist in right femoral vein and hemodialysis currently undergoing. Plan for drainage of epigastric fluid collection by IR today. 09/14: Currently afebrile. Status post prior drainage of epigastric fluid area. Currently 60 ccwhite pus accordian drain. Status post bronchoscopy yesterday. 09/15 - intubation day #22. Family waiting another 24 hours to consider tracheostomy. He is not able to be extubated. Currently undergoing hemodialysis. Likely dialysis dependent. 09/16: Tmax 100.2. Blood pressure slowly trending downward. He transfuse PRBCs and albumin bolus prior to hemodialysis today. Intubation day #23. Family currently agreeable to tracheostomy but I'm unable to perform until Sunday. Positive BM. 09/17: Tmax 101. Intubation day #24. Tolerating tube feeding. Currently on Versed and fentanyl drips. 09/18: Remains sedated, orally intubated on mechanical ventilation. Scheduled for percutaneous tracheostomy today. Was dialyzed yesterday. Percutaneous drains [address] Ileostomy with good output. Wound VAC in place over anterior abdominal incision site. 09/19: Remains sedated, on mechanical ventilation via tracheostomy. Patient was noted to have some blood oozing from around tracheostomy site this morning as well as around Vas-Cath. Pressure dressing to be applied around Vas-Cath and packing around tracheostomy site and Dr. Howard informed. 09/20: Remains on fentanyl. On mechanical ventilation via tracheostomy. Continues to have fevers. No further bleeding from tracheostomy site or Vas- Cath site. 09/21: Remains on mechanical ventilation via tracheostomy. Resuming subcutaneous heparin today. No further bleeding from Vas-Cath or tracheostomy site. 09/22: Remains on mechanical ventilation, daily C Pap trials. Awake and alert this morning, following commands. Objective Vital Signs Date Time Temp Pulse Resp B/P Pulse Ox O2 Delivery O2 Flow Rate FiO2 09/22/16 07:50 40 09/22/16 07:50 100 09/22/16 06:00 110 09/22/16 04:00 100.2 32 169/93 Intake and Output 09/21/16 09/21/16 09/22/16 08:00 16:00 00:00 Intake Total 658 ml 888 ml 981 ml Output Total 530.0 ml 855.0 ml 750.0 ml Balance 128.0 ml 33.0 ml 231.0 ml Result Diagram: 09/22/1640209/22/16402 Imaging Last Impressions Chest X-Ray 09/17/16 06 Signed Impressions: Service Date/Time: Saturday, September 17, 2016 04:43 - CONCLUSION: Unchanged bilateral filtrates. Evelio Hitchcock Jr., MD Abscess Drainage CT 09/13/16 0000 Signed Impressions: Service Date/Time: Tuesday, September 13, 2016 14:30 - CONCLUSION: Uncomplicated CT guided drainage. Carlo Cortes MD Head CT 09/11/16 0000 Signed Impressions: Service Date/Time: Sunday, September 11, 2016 18:41 - CONCLUSION: Normal examination for a patient of this age. Dave Easton MD Abdomen/Pelvis CT 09/11/16 0000 Signed Impressions: Service Date/Time: Monday, September 12, 2016 04:12 - CONCLUSION: 1. Small bowel dilatation has resolved. 2. Postsurgical changes are identified with increase in size of epigastric fluid collection, but decreased fluid within the mesentery and right paracolic region. 3. There is no evidence for enteric contrast media extravasation. 4. Pulmonary consolidation and effusions. Romel Kohli MD Retroperitoneal Abscess Drainage 09/01/16 0600 Signed Impressions: Service Date/Time: Thursday, September 01, 2016 13:05 - CONCLUSION: Uncomplicated CT guided drainage of a right lower quadrant fluid collection. Approximately 75 cc of fecal-like brown material was aspirated. The air and fluid collection may communicate with the inferior aspect of the midline wound on the anterior abdominal wall. Claude Carrasco MD Abdomen X-Ray 08/24/16 0000 Signed Impressions: Service Date/Time: August 07:44 - CONCLUSION: Gaseous distention of multiple bowel loops possible ileus. Jony Miller MD Enema w/Water Soluble 08/23/16 0000 Signed Impressions: Service Date/Time: Tuesday, August 23, 2016 10:12 - CONCLUSION: Anastomosis appears patent without extravasation. Aditya Rocha MD FACR CT Angiography 08/21/16 0000 Signed Impressions: Service Date/Time: Sunday, August 21, 2016 14:05 - CONCLUSION: 1. There is no evidence for central pulmonary emboli. 2. Minimal subcutaneous air as well as free intraperitoneal air. Aditya Rocha MD FACR Objective Remarks GENERAL: 56-year-old male, critically ill, currently on mechanical ventilation via tracheostomy SKIN: Warm. Dry. No rash HEAD: Atraumatic. Normocephalic. ENT: mucosa moist NECK: Tracheostomy in place. LIJ Vas-Cath in place CARDIOVASCULAR: Tachy, IR. S1, S2. No S4. No m/c/g/r. RESPIRATORY: On mechanical ventilation, scattered rhonchi, no wheezing. GASTROINTESTINAL: Abdomen non distended. Midline incision clean and intact. BS active. Ostomy pink with brown stool. 2 accordion drain, 1 SER[address] and vac in place. MUSCULOSKELETAL: Extremities with Tr+ bilateral upper and lower extremity edema , well perfused. NEUROLOGICAL:Pupils equal round and reactive 2 mm bilaterally. Grimaces with suctioning. Date of Insertion: Aug 31, 2016 Date of Removal: Sep 12, 2016 Side: Right A/P Assessment and Plan NEURO/PSYCH: History of anxiety Acute toxic metabolic encephalopathymultifactorial Off Versed, titrate off fentanyl gtt as tolerated Acetaminophen for fever Haldol 1 mg every 4 hours when necessary Ativan 0.5 mg every one hour when necessary agitation Morphine sulfate 3 milligrams IV every 3 hours when necessary pain -Daily sedation vacation, follow neuro status. -Head CT 09/11 no acute intracranial findings -EEG 09/12 revealed mild to moderate encephalopathy. No epileptiform activity. Currently on Cerebyx 300 mg liquid at night. Level 5.7 on 09/18 RESP: Acute hypoxemic respiratory failure COPD exacerbation Probable healthcare associated pneumonia -Continue ACV 22/600 0.75/8/50 Ventilator bundle -Albuterol nebs every 4 hours scheduled and when necessary duo nebs, Symbicort 2 puffs every 12 was discontinued while in ventilator. Continue Pulmicort 0.5/2 twice a day -Broad-spectrum antibiotics as below -Continue daily C Pap trials. Dr. Renteria/Pulmonary following Increase SBTs length as able. s/p tracheostomy 09/18 CV: Hypotension secondary to septic shock resolved History of hypertension -Received multiple fluid boluses on 08/25. IV fluids discontinued subsequently in view of anuria necessitating hemodialysis. Off all vasopressors -Attempt negative fluid balance with hemodialysis. Currently on clonidine 0.1 3 times a day, Norvasc 5 mg twice a day and Coreg 6.25 twice a day. Decreased Norvasc daily and Coreg 3.125 twice a day with holding parameters for all 3 blood pressure medications. Labetalol prn GI/ Nutrition: Anastomotic leak status post exploratory laparotomy, I&D, loop ileostomy 08/24/16 s/p Laparoscopic robotic extensive ANNA MARIE, robotic LAR and small bowel resection Laparoscopic robotic ANNA MARIE, robotic LAR and small bowel resection with anastomotic leak History of diverticulitis -Status post exploratory laparotomy, I&D, loop ileostomy 08/24/16 -Postoperative management per Dr. Moffett. Broad-spectrum antibiotics as below. positive ostomy output CT abdomen pelvis with oral contrast 08/29 reveal small bowel ileus. Serous fluid collection likely postoperative changes. - On Reglan to improve GI motility -Off TPN as tolerating tube feeds. On Glucerna 1.5 goal 60 cc an hour. Protonix for GI prophylaxis Accordion drain to right lower quadrant 09/01 by IR. Right lower quadrant SERGEI. LLQ SERGEI has been discontinued Vac-Pac medial. Accordion to epigastric drain with purulent drainage. Renal/: Acute kidney injury History BPH Status post bilateral ureteral stents placed by Dr. Fraser 08/18 -Monitor renal function closely. Mg catheter. -IV fluids discontinued in view of anuric renal failure and hyperkalemia necessitating hemodialysis. Nephrology consulted and following. -Attempt maintaining even to slightly negative fluid balance. New right IJ hemodialysis catheter placed 09/01 -> D/C 09/13. New right femoral hemodialysis catheter placed 09/13 -> D/C 09/19 New LIJ vascath placed 09/18 ID: Anastomotic leak Sepsis Probable HCAP -IV vancomycin, Flagyl and Levaquin per Dr. Moffett. Levaquin discontinued . Zosyn started 09/02- 09/16. Flagyl and micafungin per ID added. Merrem added 09/15 Pertinent culture 09/13 - bronchial -Pseudomonas 09.13 - abdomen abscess -Pseudomonas/yeast 09/01: Abdominal wound - Pseudomonas, enterococcus, Iram 08/31 - line culture Pseudomonas/coag negative staph 08/31 - blood cultures 2 -no growth 08/31 - sputum - pending 08/29 - wound - Pseudomonas, group D enterococcus, C. albicans and yeast 08/25 blood cultures - no growth 08/25 sputum - Serratia/Klebsiella/Pseudomonas 08/24 - wound - no growth HEME: Leukocytosis Normocytic anemia Thrombocytosis RIJ DVT (nonocclusive) -Monitor CBC, CMP, coags - On anticoagulation with heparin (for right IJ nonocclusive thrombus/ left cephalic vein) which was put on hold since 09/11 for tracheostomy. Started subcutaneous heparin on 09/21 and if no bleeding will consider advancing to full anticoagulation. ENDO: -Sliding-scale insulin for glycemic control. Levemir 20 units twice a day FEN: Hyperphosphatemia Continue PhosLo 667 mg 3 times a day for hyperphosphatemia. Hemodialysis per renal. PROPH: -Bilateral lower extremity SCDs. Heparin gtt for RIJ DVT (held 09/18 for scheduled trach). Protonix for GI prophylaxis LINES: -Left subclavian central line placed in the OR 08/24 - 08/31. Right subclavian central line placed 08/31 - 09/11 - RIJ dialysis catheter 08/25 -08/31. New right IJ hemodialysis catheter 09/01 - - Right femoral hemodialysis catheter 09/13 Satya Quarles MD Sep 22, 2016 08:36
[2016-09-22] MEDS: amLODIPine BESYLATE 5 MG TAB PO SCH ×2 (08:38→20:28)
[2016-09-22] MEDS: PANTOPRAZOLE SODIUM 40 MG VIAL IVP SCH (08:38)
[2016-09-22] MEDS: CALCIUM ACETATE 667 MG CAP PO SCH ×3 (08:38→16:43)
[2016-09-22] MEDS: MICAFUNGIN INJ 100 MG in SODIUM CHLORIDE 0.9% INJ 100 ML IV SCH (08:38)
[2016-09-22] MEDS: CARVEDILOL 3.125 MG TAB PO SCH ×2 (08:39→20:28)
[2016-09-22] MEDS: LACTOBACILLUS ACIDOPHILUS TAB NG SCH ×3 (08:39→16:43)
[2016-09-22] MEDS: CHLORHEXIDINE 0.12% (ORAL KIT) 15 ML CUP MT SCH ×2 (08:39→20:28)
[2016-09-22] MEDS: MUPIROCIN 2% OINT 1 APPLIC/GM SYR EACH NARE SCH ×2 (08:39→21:43)
[2016-09-22] MEDS: RESP: TOBRAMYCIN SULFATE 300 MG/5 ML NEB NEB SCH ×2 (09:05→20:42)
--- NOTE | 2016-09-22 09:31 | HHI.NPPN ---
Subjective General Problems: Edema Renal Failure: Acute Interval History He is awake, on vent. Off all drips including sedation. Febrile, heart rate controlled today. (Fransisca Canela) Review of Systems General Constitutional: Fever General Remarks nods head no when asked about pain (Fransisca Canela) Musculoskeletal MS Remarks generalized pain (Fransisca Canela) Objective Data Data 09/21/16 09/22/16 19:00 07:00 Intake Total 888 ml 1760 ml Output Total 855.0 ml 1025.0 ml Balance 33.0 ml 735.0 ml IV Total 399 ml 856 ml Tube Feeding 429 ml 904 ml Tube Irrigant 60 ml Stool Total 825 ml 1000 ml Tube Feeding Residual Discard 0 ml 0 ml Drainage Total 30 ml 25 ml Hemodialysis 0 ml Vital Signs Date Time Temp Pulse Resp B/P Pulse Ox O2 Delivery O2 Flow Rate FiO2 09/22/16 08:00 40 09/22/16 08:00 100.2 97 18 160/100 100 09/22/16 08:00 97 09/22/16 07:50 40 09/22/16 07:50 100 40 09/22/16 06:00 110 09/22/16 04:44 98 40 09/22/16 04:00 108 09/22/16 04:00 100.2 108 32 169/93 100 09/22/16 04:00 40 09/22/16 02:00 108 09/22/16 00:00 40 09/22/16 00:00 108 09/22/16 00:00 100.7 108 27 169/119 100 09/21/16 23:56 100 40 09/21/16 22:00 99 09/21/16 20:19 100 40 09/21/16 20:00 111 09/21/16 20:00 40 09/21/16 20:00 100.3 111 22 174/99 100 09/21/16 18:00 112 09/21/16 16:02 100 40 09/21/16 16:00 112 09/21/16 16:00 40 09/21/16 16:00 100.3 112 25 161/97 100 09/21/16 14:00 112 09/21/16 12:00 106 09/21/16 12:00 100.4 116 32 163/92 100 09/21/16 12:00 40 09/21/16 11:39 100 40 09/21/16 10:00 125 (Fransisca Canela) -: 09/22/16 0403 09/22/16 0403 Imaging Last 72 hours Impressions Chest X-Ray 09/21/16 0000 Signed Impressions: Service Date/Time: August 12:39 - CONCLUSION: Decreasing bilateral pulmonary opacity with residual atelectasis at the right lung base. Javier Aguilar MD Tubes & Lines: Vas-Cath Tubes & Lines Comment trach TLC, NG tube (R) SERGEI drain RLQ epigastric drain wound vac lower abdomen Drip Comment none (Fransisca Canela) Physical Exam General Appearance: Well Developed, No Acute Distress Appearance Remarks awake on ventilator via trach, nods yes/no to questions (Fransisca Canela ) Throat Throat Exam: Oral Mucosa Wilcox & Moist (Fransisca Canela) Neck Neck Remarks trach (Fransisca Canela) Pulmonary Resp Exam: Breath Sounds Equal, No Distress, Crackles, Sputum, Diminished Breath Sounds Resp Remarks vented, increased secretions (Fransisca Canela) Cardiology CV Exam: Regular, Normal Sinus Rhythm (Fransisca Canela) Gastrointestinal/Abdomen GI Exam: Distended GI Remarks distended, not as firm; colostomy with pink/red stoma stool in colostomy bag (Fransisca Canela) Musculoskeletal MS Exam: Joints Intact, Normal Tone (Fransisca Canela) Integumentary Skin Exam: Warm, Dry Skin Remarks below umbilicus, midabdominal wound has dehisced; wound vac left side of incision (Fransisca Canela) Extremeties Extremities Exam: No Edema, Pedal Pulses Palpable (Fransisca Canela) Neurologic Neuro Exam: Alert, Awake, Moving All Extremities (Fransisca Canela) VTE Prophylaxis Device: SCDs (Fransisca Canela) Assessment/Plan Discussed Condition With: Relative Assessment Summary: VIRIDIANA/Acute Renal Failure, Acute Tubular Necrosis, Fluid/ Volume Overload, Hypertension Problem List: (1) Acute renal failure Plan: He has developed ATN due to sepsis. and has been on daily HD, no fluid removal yesterday still anuric hold HD today, reevaluate dialysis need tomorrow vascath in left IJ, placed 09/18; flow was sluggish yesterday, may need replacement prior to next treatment potassium is normal Avoid nephrotoxic agents. Monitor drug levels and renally dose medications when appropriate Avoid IVF specifically LR. continue Calcium acetate for hyperphosphatemia, phosphorus has improved daily renal panel, await renal recovery (2) Diverticulitis Plan: persistent fever; s/p colon resection with complications surgery following. he has multiple drains and wound vac due to wound dehiscence pseudomonas in sputum and wound, it is highly resistant ID following, managing antibiotics. He is now on Aztreonam and Levaquin (which are renally dosed) Micafungin and Flagyl; also intermittent vancomycin; given tobramycin IV and via nebs meropenem has been stopped s/p trach placement 09/18 continue tube feeding (Fransisca Canela) Plan patient was seen and examined. Remains anuric. Dialysis tomorrow. Prognosis is guarded. Febrile, ID following. Antibiotics were noted. (Tito Kuo MD) Problem Qualifiers (1) Acute renal failure: Qualified Code: N17.0 - Acute renal failure with tubular necrosis Fransisca Canela Sep 22, 2016 09:31 Tito Kuo MD Sep 22, 2016 13:39
[2016-09-22] MEDS: LEVOFLOXACIN 250 MG PREMIX INJ 50 ML IV SCH (12:51)
--- NOTE | 2016-09-22 17:33 | HHI.PR ---
Subjective Remarks POD#35 s/p robotic LAR/SBR/ANNA MARIE, POD#27 s/p ex lap, washout, diverting loop ileostomy Awake, alert, responds to questions Objective Vital Signs Date Time Temp Pulse Resp B/P Pulse Ox O2 Delivery O2 Flow Rate FiO2 09/22/16 16:00 40 09/22/16 16:00 100.0 101 19 151/80 100 09/22/16 16:00 101 09/22/16 15:33 100 40 09/22/16 14:00 100 09/22/16 12:20 100 40 09/22/16 12:00 105 09/22/16 12:00 100.2 105 20 167/99 100 09/22/16 12:00 40 09/22/16 10:00 99 09/22/16 08:00 40 09/22/16 08:00 100.2 97 18 160/100 100 09/22/16 08:00 97 09/22/16 07:50 40 09/22/16 07:50 100 40 09/22/16 06:00 110 09/22/16 04:44 98 40 09/22/16 04:00 108 09/22/16 04:00 100.2 108 32 169/93 100 09/22/16 04:00 40 09/22/16 02:00 108 09/22/16 00:00 40 09/22/16 00:00 108 09/22/16 00:00 100.7 108 27 169/119 100 09/21/16 23:56 100 40 09/21/16 22:00 99 09/21/16 20:19 100 40 09/21/16 20:00 111 09/21/16 20:00 40 09/21/16 20:00 100.3 111 22 174/99 100 09/21/16 18:00 112 I/O 09/21/16 09/21/16 09/21/16 09/22/16 09/22/16 09/22/16 07:00 15:00 23:00 07:00 15:00 23:00 Intake Total 658 ml 888 ml 981 ml 779 ml 919 ml Output Total 530 ml 855.0 ml 750 ml 275 ml 510 ml Balance 128 ml 33.0 ml 231 ml 504 ml 409 ml IV Total 270 ml 399 ml 522 ml 334 ml 361 ml Tube Feeding 388 ml 429 ml 459 ml 445 ml 498 ml Tube Irrigant 60 ml 60 ml Stool Total 500 ml 825 ml 725 ml 275 ml 500 ml Tube Feeding Residual Discard 0 ml 0 ml 0 ml 0 ml Drainage Total 30 ml 30 ml 25 ml 10 ml Hemodialysis 0 ml Result Diagram: 09/22/1640209/22/16402 Objective Remarks Abdomen soft Wounds clean Pelvic accordion out, Epigastric minimal Assessment and Plan Assessment and Plan CV - BP stable RESP - tolerating CPAP all day KIDNEY - still anuric,continue HD FEN - tolerating TF's ID - WBC, temps still up, recheck CT in am Elana Moffett MD Sep 22, 2016 17:33
--- NOTE | 2016-09-22 17:42 | HHI.PR ---
Subjective Remarks YOAA male with robotic surgery,COPD exac Underwent exp lap,I&d and loop iliostomy placement Remains on vent Had Trach no fever Alert,awake, follows commands Tolerates CPAP Objective Vital Signs Vital Signs Date Time Temp Pulse Resp B/P Pulse Ox O2 Delivery O2 Flow Rate FiO2 09/22/16 16:00 40 09/22/16 16:00 100.0 101 19 151/80 100 09/22/16 16:00 101 09/22/16 15:33 100 40 09/22/16 14:00 100 09/22/16 12:20 100 40 09/22/16 12:00 105 09/22/16 12:00 100.2 105 20 167/99 100 09/22/16 12:00 40 09/22/16 10:00 99 09/22/16 08:00 40 09/22/16 08:00 100.2 97 18 160/100 100 09/22/16 08:00 97 09/22/16 07:50 40 09/22/16 07:50 100 40 09/22/16 06:00 110 09/22/16 04:44 98 40 09/22/16 04:00 108 09/22/16 04:00 100.2 108 32 169/93 100 09/22/16 04:00 40 09/22/16 02:00 108 09/22/16 00:00 40 09/22/16 00:00 108 09/22/16 00:00 100.7 108 27 169/119 100 09/21/16 23:56 100 40 09/21/16 22:00 99 09/21/16 20:19 100 40 09/21/16 20:00 111 09/21/16 20:00 40 09/21/16 20:00 100.3 111 22 174/99 100 09/21/16 18:00 112 I/O 09/21/16 09/21/16 09/21/16 09/22/16 09/22/16 09/22/16 07:00 15:00 23:00 07:00 15:00 23:00 Intake Total 658 ml 888 ml 981 ml 779 ml 919 ml Output Total 530 ml 855.0 ml 750 ml 275 ml 510 ml Balance 128 ml 33.0 ml 231 ml 504 ml 409 ml IV Total 270 ml 399 ml 522 ml 334 ml 361 ml Tube Feeding 388 ml 429 ml 459 ml 445 ml 498 ml Tube Irrigant 60 ml 60 ml Stool Total 500 ml 825 ml 725 ml 275 ml 500 ml Tube Feeding Residual Discard 0 ml 0 ml 0 ml 0 ml Drainage Total 30 ml 30 ml 25 ml 10 ml Hemodialysis 0 ml Result Diagram: 09/22/1640209/22/16402 Objective Remarks GENERAL: WBWN obese male, on Vent , sedated SKIN: Warm and dry. HEAD: Normocephalic. EYES: No scleral icterus. No injection or drainage. NECK: Supple, trachea midline. No JVD or lymphadenopathy. CARDIOVASCULAR: Regular rate and rhythm without murmurs, gallops, or rubs. RESPIRATORY: Breath sounds equal bilaterally. No accessory muscle use. exp rhonchi GASTROINTESTINAL: Abdomen soft, non-tender, Abd distended MUSCULOSKELETAL: No cyanosis, or edema. BACK: Nontender without obvious deformity. No CVA tenderness. A/P Assessment and Plan Resp Failure, on vent COPD exac S/p robotic surgery Anxiety S/p Exp lap PLAN: Cont vent support, aerosol nebs Nebuliser rx qid and prn Abx per ID Watson Nebs Sedation with Fentanyl Cont CPAP Monitor debbie Reich and Robbie Doty MD Sep 22, 2016 17:42
--- NOTE | 2016-09-22 17:44 | HHI.IDPN ---
Note Infectious Disease Note Patient is on the vent. Very alert and responsive today. Denies pain. Temp low grade. WBC remain elevated. Moderate henry ETT secretions. Moderate mid upper abdomen drainage. Post trach 09/18. LIJ dialysis catheter. 09/18. PAST MEDICAL HISTORY 1. Diverticulitis. 2. COPD. 3. Hypertension. 4. Anxiety disorder. 5. BPH. 6. History of tonsillectomy. ALLERGIES No known drug allergies. ANTIBIOTICS 1. Micafungin. 2. Aztreonam. 3. Levaquin. 4. Tobramycin IV intermittent. Dose given on 09/20. Receiving Nebulized Tobra. 3. Vancomycin periodic. 4. Flagyl. OBJECTIVE: Vital Signs Date Time Temp Pulse Resp B/P Pulse Ox O2 Delivery O2 Flow Rate FiO2 09/22/16 16:00 40 09/22/16 16:00 100.0 101 19 151/80 100 09/22/16 16:00 101 09/22/16 15:33 100 40 09/22/16 14:00 100 09/22/16 12:20 100 40 09/22/16 12:00 105 09/22/16 12:00 100.2 105 20 167/99 100 09/22/16 12:00 40 09/22/16 10:00 99 09/22/16 08:00 40 09/22/16 08:00 100.2 97 18 160/100 100 09/22/16 08:00 97 09/22/16 07:50 40 09/22/16 07:50 100 40 09/22/16 06:00 110 09/22/16 04:44 98 40 09/22/16 04:00 108 09/22/16 04:00 100.2 108 32 169/93 100 09/22/16 04:00 40 09/22/16 02:00 108 09/22/16 00:00 40 09/22/16 00:00 108 09/22/16 00:00 100.7 108 27 169/119 100 09/21/16 23:56 100 40 09/21/16 22:00 99 09/21/16 20:19 100 40 09/21/16 20:00 111 09/21/16 20:00 40 09/21/16 20:00 100.3 111 22 174/99 100 09/21/16 18:00 112 09/21/16 09/21/16 09/22/16 15:00 23:00 07:00 Intake Total 888 ml 981 ml 779 ml Output Total 855.0 ml 750 ml 275 ml Balance 33.0 ml 231 ml 504 ml IV Total 399 ml 522 ml 334 ml Tube Feeding 429 ml 459 ml 445 ml Tube Irrigant 60 ml Stool Total 825 ml 725 ml 275 ml Tube Feeding Residual Discard 0 ml 0 ml 0 ml Drainage Total 30 ml 25 ml Hemodialysis 0 ml Laboratory Tests Test 09/22/16 04:03 White Blood Count 20.5 TH/MM3 Red Blood Count 3.10 MIL/MM3 Hemoglobin 8.9 GM/DL Hematocrit 26.4 % Mean Corpuscular Volume 85.0 FL Mean Corpuscular Hemoglobin 28.6 PG Mean Corpuscular Hemoglobin 33.6 % Concent Red Cell Distribution Width 15.8 % Platelet Count 403 TH/MM3 Mean Platelet Volume 8.5 FL Neutrophils (%) (Auto) 75.5 % Lymphocytes (%) (Auto) 9.5 % Monocytes (%) (Auto) 11.6 % Eosinophils (%) (Auto) 2.4 % Basophils (%) (Auto) 1.0 % Neutrophils # (Auto) 15.5 TH/MM3 Lymphocytes # (Auto) 1.9 TH/MM3 Monocytes # (Auto) 2.4 TH/MM3 Eosinophils # (Auto) 0.5 TH/MM3 Basophils # (Auto) 0.2 TH/MM3 CBC Comment AUTO DIFF Differential Total Cells 100 Counted Neutrophils % (Manual) 76 % Band Neutrophils % 3 % Lymphocytes % 10 % Monocytes % 2 % Eosinophils % 5 % Basophils % 2 % Neutrophils # (Manual) 16.6 TH/MM3 Metamyelocytes 2 % Differential Comment FINAL DIFF MANUAL Platelet Estimate NORMAL Platelet Morphology Comment NORMAL Red Cell Morphology Comment NORMAL Laboratory Tests Test 09/21/16 09/22/16 03:31 04:03 Sodium Level 137 MEQ/L 139 MEQ/L Potassium Level 4.3 MEQ/L 4.5 MEQ/L Chloride Level 97 MEQ/L 100 MEQ/L Carbon Dioxide Level 31.1 MEQ/L 28.0 MEQ/L Anion Gap 9 MEQ/L 11 MEQ/L Blood Urea Nitrogen 49 MG/DL 60 MG/DL Creatinine 3.95 MG/DL 4.28 MG/DL Estimat Glomerular Filtration 16 ML/MIN 14 ML/MIN Rate Random Glucose 122 MG/DL 120 MG/DL Calcium Level 9.6 MG/DL 9.5 MG/DL Phosphorus Level 4.7 MG/DL 4.4 MG/DL Albumin 2.5 GM/DL 2.5 GM/DL Microbiology Date/Time Procedure Status Source Growth 09/20/16 14:00 Gram Stain - Final Resulted Wound Abdomen 09/20/16 14:00 Wound Culture - Preliminary Resulted Gram Negative Denis 09/20/16 14:00 Gram Stain - Final Resulted Wound Drainage 09/20/16 14:00 Wound Culture - Preliminary Resulted Yeast Species Microbiology Date/Time Procedure Status Source Growth 09/17/16 12:50 Gram Stain - Final Resulted Sputum Endotracheal 09/17/16 12:50 Sputum Culture - Preliminary Resulted Pseudomonas Aeruginosa 09/17/16 17:47 Stool Occult Blood (KYUNG) - Final Complete Stool Stool HEMOCCULT POSITIVE Microbiology Date/Time Procedure Status Source Growth 09/17/16 11:15 Aerobic Blood Culture - Preliminary Resulted Blood Peripheral NO GROWTH IN 2 DAYS 09/17/16 11:15 Anaerobic Blood Culture - Preliminary Resulted Blood Peripheral NO GROWTH IN 2 DAYS 09/17/16 11:45 Aerobic Blood Culture - Preliminary Resulted Blood Other NO GROWTH IN 2 DAYS 09/17/16 11:45 Anaerobic Blood Culture - Preliminary Resulted Blood Other NO GROWTH IN 2 DAYS 09/17/16 12:50 Gram Stain - Final Resulted Sputum Endotracheal 09/17/16 12:50 Sputum Culture - Preliminary Resulted Pseudomonas Aeruginosa 09/17/16 17:47 Stool Occult Blood (KYUNG) - Final Complete Stool Stool HEMOCCULT POSITIVE Microbiology Date/Time Procedure Status Source Growth 09/13/16 15:03 Gram Stain - Final Resulted Abscess Abdomen 09/13/16 15:03 Wound Culture - Preliminary Resulted Gram Negative Denis 09/13/16 17:20 Gram Stain - Final Resulted Bronchial Washings Right Mid Lobe 09/13/16 17:20 Bronchial Culture - Preliminary Resulted Pseudomonas Aeruginosa 09/13/16 17:20 Acid Fast Stain Worksheet Bronchial Washings Right Mid Lobe Pending 09/13/16 17:20 Mycobacterial Culture Worksheet Bronchial Washings Right Mid Lobe Pending 09/13/16 17:20 Fungal Smear - Final Resulted Bronchial Washings Right Mid Lobe NO FUNGAL ELEMENTS SEEN. 09/13/16 17:20 Fungal Culture Resulted Bronchial Washings Right Mid Lobe Pending Imaging: Chest X-Ray 09/21/16 0000 Signed Impressions: Service Date/Time: August 12:39 - CONCLUSION: Decreasing bilateral pulmonary opacity with residual atelectasis at the right lung base. Javier Aguilar MD Chest X-Ray 09/18/16599 Signed Impressions: Service Date/Time: Sunday, September 18, 2016 04:33 - CONCLUSION: Stable bilateral patchy densities greater throughout the right lung. Jony Miller MD Chest X-Ray 09/17/16599 Signed Impressions: Service Date/Time: Saturday, September 17, 2016 04:43 - CONCLUSION: Unchanged bilateral filtrates. Evelio Hitchcock Jr., MD Upper Extremity Ultrasound 09/17/16 Signed Impressions: Service Date/Time: Saturday, September 17, 2016 16:48 - CONCLUSION: 1. Positive nonocclusive deep venous thrombosis right internal jugular vein. 2. Nonocclusive superficial thrombosis in the left cephalic vein. Miki Banerjee MD Lower Extremity Ultrasound 09/17/16 Signed Impressions: Service Date/Time: Saturday, September 17, 2016 17:33 - CONCLUSION: Normal examination. Miki Banerjee MD Head CT 09/17/16 Signed Impressions: Service Date/Time: Saturday, September 17, 2016 20:47 - CONCLUSION: 1. No acute intracranial abnormalities. Miki Banerjee MD Chest CT 09/17/16 Signed Impressions: Service Date/Time: Saturday, September 17, 2016 20:46 - CONCLUSION: 1. Multifocal airspace consolidation in the lungs, right greater than left most characteristic of bronchopneumonia. There is underlying mild to moderate emphysema. Small effusions. Miki Banerjee MD Abdomen/Pelvis CT 09/17/16 Signed Impressions: Service Date/Time: Saturday, September 17, 2016 20:50 - CONCLUSION: 1. Interval placement of drain in upper abdomen anteriorly with decrease in size of fluid collection as above. No new fluid collections within the abdomen and pelvis. 2. Right lower quadrant drain remains. Previous left drain has been removed. NG coiled in stomach. Miki Banerjee MD Head CT 09/11/16 Signed Impressions: Service Date/Time: Sunday, September 11, 2016 18:41 - CONCLUSION: Normal examination for a patient of this age. Dave Easton MD Abdomen/Pelvis CT 3/20/17 0000 Signed Impressions: Service Date/Time: Monday, September 12, 2016 04:12 - CONCLUSION: 1. Small bowel dilatation has resolved. 2. Postsurgical changes are identified with increase in size of epigastric fluid collection, but decreased fluid within the mesentery and right paracolic region. 3. There is no evidence for enteric contrast media extravasation. 4. Pulmonary consolidation and effusions. Romel Kohli MD Chest X-Ray 09/03/16599 Signed Impressions: Service Date/Time: Saturday, September 03, 2016 04:03 - CONCLUSION: Stable left lower lobe consolidation and right lower lung infiltrates. Evelio Boyd MD Retroperitoneal Abscess Drainage 09/01/16599 Signed Impressions: Service Date/Time: Thursday, September 01, 2016 13:05 - CONCLUSION: Uncomplicated CT guided drainage of a right lower quadrant fluid collection. Approximately 75 cc of fecal-like brown material was aspirated. The air and fluid collection may communicate with the inferior aspect of the midline wound on the anterior abdominal wall. Claude Carrasco MD Abdomen/Pelvis CT 08/29/16 Signed Impressions: Service Date/Time: Monday, August 29, 2016 17:12 - CONCLUSION: Post surgical changes following partial colon resection. Persistent pockets of fluid. Largest is located in the pelvis and contains an air-fluid level. Abscess formation cannot be excluded. Small bowel ileus Bibasilar airspace disease and pleural effusions Aakash Iqbal MD Abdomen X-Ray 08/24/16 Signed Impressions: Service Date/Time: August 07:44 - CONCLUSION: Gaseous distention of multiple bowel loops possible ileus. Jony Miller MD Enema w/Water Soluble 08/23/16 Signed Impressions: Service Date/Time: Tuesday, August 23, 2016 10:12 - CONCLUSION: Anastomosis appears patent without extravasation. Aditya Rocha MD FACR CT Angiography 08/21/16 Signed Impressions: Service Date/Time: Sunday, August 21, 2016 14:05 - CONCLUSION: 1. There is no evidence for central pulmonary emboli. 2. Minimal subcutaneous air as well as free intraperitoneal air. Aditya Rocha MD FACR PHYSICAL EXAMINATION GENERAL: Sedated. On the ventilator. Awakens. HEENT: No icterus. Trach in place. NECK: No adenopathy or swelling. LUNGS: Coarse rhonchi bilateral. HEART: Regular rate and rhythm. No audible murmurs, rubs or gallops. ABDOMEN: Positive bowel sounds. Wound vac in place has serous drainage. 1 Accordion abdominal drain has light chocolate colored drainage. EXTREMITIES: No clubbing or cyanosis. No edema. Distal pulses 2+. SKIN: No rash. NEUROLOGIC: Now awake and alert. IMPRESSION 1. Sepsis. Pseudomonas on CVL culture of removed line. 2. Peritonitis. Post abdominal surgery/Bowel resection - enterococcus, pseudomonas and yeast. New culture has gram neg denis and yeast. 3. Pneumonia. pseudomonas ( resistant strain). CXR has improved. 4. Leukocytosis secondary to infection. WBC still elevated. 5. Acute renal failure. 6. Acute respiratory failure. Remains vent. dependent. 7. Thrombosis R. internal Jugular vein. 8. Fever persistent. Temp now lower grade. Probably because of resistant organism. ? line vs intra abdominal infection vs PNA. Looks like he is clinically doing better. RECOMMENDATIONS 1. Continue Micafungin. 2. Continue Aztreonam. Adjusted for renal function. 3. Continue Tobramycin nebulized. 4. Continue Levaquin. Adjusted for renal function. 5. Tobramycin level pending. 6. Continue Flagyl. 7. Follow culture of abdominal drainage. 8. Monitor white blood cell count. 9. Monitor temps. 10. Vancomycin dose given 09/21. No gram positives cultured on recent culture. Consider redose if temps persist. 11. Follow additional sensitivities on the pseudomonas. Zerbaxa,Avycaz, Colistin. 12. Repeat abdominal CT scan. D/W Dr. Moffett. I will be off until 10/03. other ID MDs covering in my absence. Tim Apodaca MD Sep 22, 2016 17:44
[2016-09-22] MEDS: PHENYTOIN SUSP 100 MG/4 ML CUP PO SCH (20:30)
[2016-09-22] MEDS: hydrALAZINE HCL 20 MG/ML VIAL IV PUSH PRN (21:06)
[2016-09-23] VITALS (16 sets, daily range): BP systolic 100–165; BP diastolic 67–91; PULSE 97–121; RESP 22–28; TEMP 98.6–100.8; O2SAT 93–100
[2016-09-23] MEDS: AZTREONAM INJ 500 MG in SODIUM CHLORIDE 0.9% INJ 100 ML IV SCH ×2 (00:30→12:07)
[2016-09-23] MEDS: SODIUM CHLORIDE 0.9% 10 ML VIAL IV FLUSH SCH ×3 (00:49→16:58)
[2016-09-23] MEDS: HEPARIN SODIUM - SQ 10,000 UNITS/ML VIAL SQ SCH ×3 (01:03→17:34)
[2016-09-23] MEDS: ACETAMINOPHEN 325 MG TAB PO PRN (01:03)
[2016-09-23] MEDS: LORazepam 2 MG/ML VIAL IV PUSH PRN ×3 (01:04→15:10)
[2016-09-23] MEDS: RESP: ALBUTEROL 2.5 MG/3 ML NEB (SCH) INH ×6 (01:24→23:19)
[2016-09-23] MEDS: hydrALAZINE HCL 20 MG/ML VIAL IV PUSH PRN (01:35)
[2016-09-23] MEDS: metroNIDAZOLE 500 MG INJ 100 ML IV SCH ×4 (04:00→23:39)
[2016-09-23 04:22] LABS: HEMATOCRIT 25.8 % (39.0-51.0); MEAN CELL VOLUME 84.9 FL (80.0-100.0); MEAN CORPUSCULAR HEMOGLOBIN 29.7 PG (27.0-34.0); PLATELET COUNT 401 TH/MM3 (150-450); RED BLOOD COUNT 3.04 MIL/MM3 (4.50-5.90); RED CELL DISTRIBUTION WIDTH 15.9 % (11.6-17.2); REVIEW FLAG FINAL; WHITE BLOOD COUNT 16.2 TH/MM3 (4.0-11.0)
[2016-09-23] MEDS: cloNIDine HCL 0.1 MG TAB PO SCH ×3 (05:22→23:39)
[2016-09-23] MEDS: ARTIFICIAL TEARS OPTH SOLN 15 ML BTL EACH EYE SCH ×3 (05:22→22:00)
[2016-09-23] MEDS: LABETALOL HCL 100 MG/20 ML VIAL IV PUSH PRN ×2 (05:33→13:16)
[2016-09-23] MEDS: CHLORHEXIDINE 0.12% (ORAL KIT) 15 ML CUP MT SCH ×2 (08:00→20:05)
[2016-09-23] MEDS: SODIUM CHLOR 0.9% 1000 ML INJ 1,000 ML IV PRN (08:18)
[2016-09-23] MEDS: GENTAMICIN SULFATE (DIALYSIS USE ONLY) 20 MG/2 ML VIAL IV PRN (08:18)
[2016-09-23] MEDS: HEPARIN SODIUM - IV 10,000 UNITS/10 ML VIAL PRN (08:18)
[2016-09-23] MEDS: SODIUM CHLORIDE 0.9% FLUSH 5 ML FLUSH IVF SCH ×2 (09:00→20:04)
[2016-09-23] MEDS: MICAFUNGIN INJ 100 MG in SODIUM CHLORIDE 0.9% INJ 100 ML IV SCH (09:21)
[2016-09-23] MEDS: PANTOPRAZOLE SODIUM 40 MG VIAL IVP SCH (09:22)
[2016-09-23] MEDS: CARVEDILOL 3.125 MG TAB PO SCH ×2 (09:22→20:03)
[2016-09-23] MEDS: MUPIROCIN 2% OINT 1 APPLIC/GM SYR EACH NARE SCH ×2 (09:22→20:05)
[2016-09-23] MEDS: CALCIUM ACETATE 667 MG CAP PO SCH ×3 (09:22→17:34)
[2016-09-23] MEDS: LACTOBACILLUS ACIDOPHILUS TAB NG SCH ×3 (09:22→17:34)
[2016-09-23] MEDS: RESP: ALBUTEROL 2.5 MG/IPRATROPIUM 0.5 MG NEB (PRN) NEB (09:50)
[2016-09-23] MEDS: RESP: BUDESONIDE 0.5 MG/2 ML NEB NEB SCH ×2 (09:50→21:05)
[2016-09-23] MEDS: RESP: TOBRAMYCIN SULFATE 300 MG/5 ML NEB NEB SCH ×2 (09:50→21:05)
--- NOTE | 2016-09-23 10:41 | HHI.CCPN ---
Subjective Remarks/Hospital Course 08/25: Patient is a 58-year-old male with past medical history significant COPD who, on 08/18/16, underwent Laparoscopic robotic extensive lysis of adhesions, low anterior resection and small bowel resection. Apparently he was brought in by Dr. Moffett for Diverticulitis. Patient has a history of hypertension, COPD, and continues to smoke one pack of cigarettes a day. Postoperatively patient became progressively short of breath. Pulmonary was consulted on 08/21/16 as the patient was becoming more hypoxemic requiring BiPAP. CT of the chest PE protocol did not show any pulmonary embolism. Patient was placed on breathing treatments and IV Solu-Medrol 40 mg every [address] Renteria. Today a.m. patient was on 100% nonrebreather. Patient was diagnosed with an anastomotic leak today and was taken back to the OR by Dr. Moffett. He underwent exploratory laparotomy, I&D and loop ileostomy today. Postop patient remained hypoxemic requiring 70% oxygen, and hence was left intubated and critical care medicine was consulted. Dr. Arce evaluated the patient in ICU. He remained hypoxemic, FiO2 70%. Chest x-ray shows bibasilar mild infiltrates. On sedation lightening patient became very hypertensive, not following commands probably secondary to residual NM blockade received while being transported to ICU. Patient on receiving vancomycin Levaquin and Flagyl per Dr. Moffett. Dr. Arce added cefepime to cover for Pseudomonas. Holding Solu-Medrol due to anastomotic leak. 08/26: Remains sedated, orally intubated on mechanical ventilation. Went into anuric renal failure yesterday which did not respond to fluid boluses and diuretics hence was started on hemodialysis after placement of right IJ Vas- Cath. Currently sedated, arousable, remains orally intubated on mechanical ventilation. Blood pressure borderline last evening following dialysis for which she was started on low-dose vasopressin 0.03 units per minute and Levophed which is currently at 1 jose per minute. Started on TPN last night following which he has been hyperglycemic. 08/27: Sedated, arousable, orally intubated on mechanical ventilation. Spiking fevers overnight. Off Levophed, transiently off vasopressin. Remains on TPN. 08/28: Remains sedated, arousable, orally intubated on mechanical ventilation. On low-dose vasopressin. TPN continues. Made about 500 cc of urine in the last 24 hours. 08/29: In sedated, arousable, orally intubated on mechanical ventilation. Remains on TPN. Dirty drainage from left-sided SERGEI drain noted overnight. Dr. Moffett obtaining CT abdomen pelvis with oral contrast and ID consulted. 08/30: CURRENT TEMPERATURE 99. Status post 4 L hemodialysis today. No current change in therapy. White blood cell count remained stable. Off vasopressors. Arousable to voice. Versed has been discontinued. We'll attempt CPAP trials again today. 08/31: MAXIMUM TEMPERATURE 100.4. Currently 100.1. Currently resting in bed in no acute distress. Continues with scant drainage from bilateral JPs. We'll attempt CPAP trial again today. Positive stool from ostomy bag 09/01: Tmax 99.8. Currently 99.3. Placement of the new right IJ vas catheter today. Plan for IR to possibly drain right lower quadrant fluid collection. Arousable and moves all 4 extremity spontaneously. 09/02: Currently afebrile. Noted placement of iron drain with accordion drain. Growing Pseudomonas. Lasted only 2 hours on CPAP trials today. 09/03: Tolerated SBT for only 30 mins and required PS 20. Not ready to extubate. 09/04: Tachypnea related to anxiety? or metabolic acidosis. Will check VBG. Not tolerating SBT. Anemia. Transfuse during HD. 09/05: Remains very tachypneic on SBTs. Unable to extubate. 09/06: Leukocytosis and bandemia. Acts like ongoing sepsis. 09/07: No significant changes. Afebrile. Tolerating TFs as recommended by CRS. Will transition from TPN to enteral feeds now. 09/08: Bandemia persists. Tolerating full TFs. D/c'd TPN. Glucose control acceptable. 09/09: Tolerating longer CPAP/PS trials. 09/10: Stronger respiratory effort. Try to extubate today. 09/11: Stable hemodynamics, marginal respiratory function. 09/11 update 1800 hrs: Patient developed sudden hyperventilation to 55-60/min, hypertensive urgency to 220/120s, unresponsive state, started versed 10 mg/hr after 10 mg iv. Load with cerebyx, get head CT, EEG in a.m. 09/12: BP and pulse rate control improved with sedation. Etiology unclear. Suspected intracranial process but CT head normal. Possibly seizures. EEG pending this morning. WBC with bandemia persists. 09/13: CURRENT TEMPERATURE 99. Heart rate and blood pressure control. Noted T changes last night noted a potassium 8.2. Noted hemodialysis catheter placed by overnight lookback coordinator in right femoral vein and hemodialysis currently undergoing. Plan for drainage of epigastric fluid collection by IR today. 09/14: Currently afebrile. Status post prior drainage of epigastric fluid area. Currently 60 ccwhite pus accordian drain. Status post bronchoscopy yesterday. 09/15 - intubation day #22. Family waiting another 24 hours to consider tracheostomy. He is not able to be extubated. Currently undergoing hemodialysis. Likely dialysis dependent. 09/16: Tmax 100.2. Blood pressure slowly trending downward. He transfuse PRBCs and albumin bolus prior to hemodialysis today. Intubation day #23. Family currently agreeable to tracheostomy but I'm unable to perform until Sunday. Positive BM. 09/17: Tmax 101. Intubation day #24. Tolerating tube feeding. Currently on Versed and fentanyl drips. 09/18: Remains sedated, orally intubated on mechanical ventilation. Scheduled for percutaneous tracheostomy today. Was dialyzed yesterday. Percutaneous drains [address] Ileostomy with good output. Wound VAC in place over anterior abdominal incision site. 09/19: Remains sedated, on mechanical ventilation via tracheostomy. Patient was noted to have some blood oozing from around tracheostomy site this morning as well as around Vas-Cath. Pressure dressing to be applied around Vas-Cath and packing around tracheostomy site and Dr. Howard informed. 09/20: Remains on fentanyl. On mechanical ventilation via tracheostomy. Continues to have fevers. No further bleeding from tracheostomy site or Vas- Cath site. 09/21: Remains on mechanical ventilation via tracheostomy. Resuming subcutaneous heparin today. No further bleeding from Vas-Cath or tracheostomy site. 09/22: Remains on mechanical ventilation, daily C Pap trials. Awake and alert this morning, following commands. Subjective 09/23: Tmax 100.2. Currently afebrile. Some oozing from hemodialysis catheter/ left IJ today. Plan for -2 L. Currently on mechanical ventilation while on hemodialysis. Awake and alert and following commands. Objective Vital Signs Date Time Temp Pulse Resp B/P Pulse Ox O2 Delivery O2 Flow Rate FiO2 09/23/16 08:00 108 09/23/16 08:00 98.6 25 165/86 99 09/23/16 04:00 40 Intake and Output 09/22/16 09/22/16 09/23/16 08:00 16:00 00:00 Intake Total 779 ml 919 ml 688 ml Output Total 275.0 ml 510 ml 390 ml Balance 504.0 ml 409 ml 298 ml Result Diagram: 09/23/16 0333 09/22/16 0403 Other Results Microbiology Date/Time Procedure Status Source Growth 09/20/16 14:00 Gram Stain - Final Resulted Wound Drainage 09/20/16 14:00 Wound Culture - Preliminary Resulted Yeast Species Imaging Last Impressions Chest X-Ray 09/21/16 0000 Signed Impressions: Service Date/Time: August 12:39 - CONCLUSION: Decreasing bilateral pulmonary opacity with residual atelectasis at the right lung base. Javier Aguilar MD Upper Extremity Ultrasound 09/17/16 0000 Signed Impressions: Service Date/Time: Saturday, September 17, 2016 16:48 - CONCLUSION: 1. Positive nonocclusive deep venous thrombosis right internal jugular vein. 2. Nonocclusive superficial thrombosis in the left cephalic vein. Miki Banerjee MD Lower Extremity Ultrasound 09/17/16 0000 Signed Impressions: Service Date/Time: Saturday, September 17, 2016 17:33 - CONCLUSION: Normal examination. Miki Banerjee MD Head CT 09/17/16 0000 Signed Impressions: Service Date/Time: Saturday, September 17, 2016 20:47 - CONCLUSION: 1. No acute intracranial abnormalities. Miki Banerjee MD Chest CT 09/17/16 0000 Signed Impressions: Service Date/Time: Saturday, September 17, 2016 20:46 - CONCLUSION: 1. Multifocal airspace consolidation in the lungs, right greater than left most characteristic of bronchopneumonia. There is underlying mild to moderate emphysema. Small effusions. Miki Banerjee MD Abdomen/Pelvis CT 09/17/16 0000 Signed Impressions: Service Date/Time: Saturday, September 17, 2016 20:50 - CONCLUSION: 1. Interval placement of drain in upper abdomen anteriorly with decrease in size of fluid collection as above. No new fluid collections within the abdomen and pelvis. 2. Right lower quadrant drain remains. Previous left drain has been removed. NG coiled in stomach. Miki Banerjee MD Abscess Drainage CT 09/13/16 0000 Signed Impressions: Service Date/Time: Tuesday, September 13, 2016 14:30 - CONCLUSION: Uncomplicated CT guided drainage. Carlo Cortes MD Retroperitoneal Abscess Drainage 09/01/16 0600 Signed Impressions: Service Date/Time: Thursday, September 01, 2016 13:05 - CONCLUSION: Uncomplicated CT guided drainage of a right lower quadrant fluid collection. Approximately 75 cc of fecal-like brown material was aspirated. The air and fluid collection may communicate with the inferior aspect of the midline wound on the anterior abdominal wall. Claude Carrasco MD Abdomen X-Ray 08/24/16 0000 Signed Impressions: Service Date/Time: August 07:44 - CONCLUSION: Gaseous distention of multiple bowel loops possible ileus. Jony Miller MD Enema w/Water Soluble 08/23/16 0000 Signed Impressions: Service Date/Time: Tuesday, August 23, 2016 10:12 - CONCLUSION: Anastomosis appears patent without extravasation. Aditya Rocha MD FACR CT Angiography 08/21/16 0000 Signed Impressions: Service Date/Time: Sunday, August 21, 2016 14:05 - CONCLUSION: 1. There is no evidence for central pulmonary emboli. 2. Minimal subcutaneous air as well as free intraperitoneal air. Aditya Rocha MD FACR Objective Remarks GENERAL: 56-year-old male, critically ill, currently on mechanical ventilation via tracheostomy SKIN: Warm. Dry. No rash HEAD: Atraumatic. Normocephalic. ENT: mucosa moist NECK: Tracheostomy in place. LIJ Vas-Cath in place with some oozing CARDIOVASCULAR: Tachy, RR. S1, S2. No S4. No m/c/g/r. RESPIRATORY: On mechanical ventilation, scattered rhonchi appreciated in all lung nesbitt, no wheezing. GASTROINTESTINAL: Abdomen non distended. Midline incision clean and intact. BS active. Ostomy pink with brown stool. 1 accordion drain, [address] MUSCULOSKELETAL: Extremities with trace positive bilateral upper and lower extremity edema, well perfused. NEUROLOGICAL:Pupils equal round and reactive 2 mm bilaterally. Awake and alert and interactive. Moves all 4 extremities spontaneously. Urinary Catheter: Yes Assessment to: Continue Mg insert reason: Prolonged Immobilization Vascular Central Line Catheter: No Assessment to: Continue Date of Insertion: Aug 31, 2016 Date of Removal: Sep 12, 2016 Side: Right A/P Assessment and Plan NEURO/PSYCH: History of anxiety Acute toxic metabolic encephalopathymultifactorial Acetaminophen for fever Haldol 1 mg every 4 hours when necessary Ativan 0.5 mg every one hour when necessary agitation Morphine sulfate 3 milligrams IV every 3 hours when necessary pain -Daily sedation vacation, follow neuro status. -Head CT 09/11 no acute intracranial findings -EEG 09/12 revealed mild to moderate encephalopathy. No epileptiform activity. Currently on Cerebyx 300 mg liquid at night. Level 5.7 on 09/18. Recheck in a.m. RESP: Acute hypoxemic respiratory failure COPD exacerbation Probable healthcare associated pneumonia -Continue ACV 22/600 0.75/5/40 Ventilator bundle -Albuterol nebs every 4 hours scheduled and when necessary duo nebs, Symbicort 2 puffs every 12 was discontinued while in ventilator. Continue Pulmicort 0.5/2 twice a day -Broad-spectrum antibiotics as below -Continue daily C Pap trials. Dr. Renteria/Pulmonary following Increase SBTs length as able. s/p tracheostomy 09/18 CV: Hypotension secondary to septic shock resolved History of hypertension -Received multiple fluid boluses on 08/25. IV fluids discontinued subsequently in view of anuria necessitating hemodialysis. Off all vasopressors -Attempt negative fluid balance with hemodialysis. Currently on clonidine 0.1 3 times a day, Norvasc 5 mg twice a day and Coreg 3.125 twice a day. Labetalol prn GI/ Nutrition: Anastomotic leak status post exploratory laparotomy, I&D, loop ileostomy 08/24/16 s/p Laparoscopic robotic extensive ANNA MARIE, robotic LAR and small bowel resection Laparoscopic robotic ANNA MARIE, robotic LAR and small bowel resection with anastomotic leak History of diverticulitis -Status post exploratory laparotomy, I&D, loop ileostomy 08/24/16 -Postoperative management per Dr. Moffett. Broad-spectrum antibiotics as below. positive ostomy output CT abdomen pelvis with oral contrast 08/29 reveal small bowel ileus. Serous fluid collection likely postoperative changes. - On Reglan to improve GI motility -Off TPN as tolerating tube feeds. On Glucerna 1.5 goal 60 cc an hour. Protonix for GI prophylaxis Wound VAC with purulent drainage 10 cc. Accordion to epigastric drain with purulent drainage 60 cc. Plan for IR for possible drainage/CT abdomen/pelvis likely on Sunday Renal/: Acute kidney injury History BPH Status post bilateral ureteral stents placed by Dr. Fraser 08/18 -Monitor renal function closely. Mg catheter. -IV fluids discontinued in view of anuric renal failure and hyperkalemia necessitating hemodialysis. Nephrology consulted and following. -Attempt maintaining even to slightly negative fluid balance. New right IJ hemodialysis catheter placed 09/01 -> D/C 09/13. New right femoral hemodialysis catheter placed 09/13 -> D/C 09/19 New LIJ vascath placed 09/18 ID: Anastomotic leak Sepsis Probable HCAP -IV vancomycin, Flagyl and Levaquin per Dr. Moffett. Levaquin discontinued . Zosyn started 09/02- 09/16. Flagyl and micafungin per ID added. Merrem added 09/15 Current regimen is Levaquin 250 IV every 48 hours, Flagyl 500 mg IV every 6 hours, micafungin 100 mg IV 24 hours and aztreonam 500 mg IV every 12 hours. Also tobramycin aerosols twice a day Pertinent culture 09/20 - wound - Pseudomonas and yeast - 09/17 - sputum - Pseudomonas 09/17 - blood cultures 2- no growth 09/13 - bronchial -Pseudomonas 09.13 - abdomen abscess -Pseudomonas/yeast 09/01: Abdominal wound - Pseudomonas, enterococcus, Iram 08/31 - line culture Pseudomonas/coag negative staph 08/31 - blood cultures 2 -no growth 08/31 - sputum - pending 08/29 - wound - Pseudomonas, group D enterococcus, C. albicans and yeast 08/25 blood cultures - no growth 08/25 sputum - Serratia/Klebsiella/Pseudomonas 08/24 - wound - no growth HEME: Leukocytosis Normocytic anemia Thrombocytosis RIJ DVT (nonocclusive) Left cephalic superficial thrombus -Monitor CBC, CMP, coags - On anticoagulation with heparin (for right IJ nonocclusive thrombus/ left cephalic vein) which was put on hold since 09/11 for tracheostomy. Started subcutaneous heparin on 09/21 and if no bleeding will consider advancing to full anticoagulation. ENDO: -Sliding-scale insulin for glycemic control. Levemir 20 units twice a day currently on hold FEN: Hyperphosphatemia Continue PhosLo 667 mg 3 times a day for hyperphosphatemia. Hemodialysis per renal. PROPH: -Bilateral lower extremity SCDs. Heparin gtt for RIJ DVT (held 09/18 for scheduled trach). Protonix for GI prophylaxis LINES: -Left subclavian central line placed in the OR 08/24 - 08/31. Right subclavian central line placed 08/31 - 09/11 - RIJ dialysis catheter 08/25 -08/31. New right IJ hemodialysis catheter 09/01 - - Right femoral hemodialysis catheter 09/13 Critical Care: The total critical care time was 35 minutes. Time to perform other separately billable procedures was not included in the critical care time. Connor Lebron MD Sep 23, 2016 10:41
[2016-09-23] MEDS ORDERED: GLUCAGON 1 MG/ML VIAL OTHER PRN (10:45)
[2016-09-23] MEDS ORDERED: DEXTROSE 50% IN WATER 50 ML VIAL(D50) IV PUSH PRN (10:45)
--- NOTE | 2016-09-23 10:53 | HHI.PR ---
Subjective Remarks WBC decreased markedly. Pt looks better. More alert. Objective Vital Signs Date Time Temp Pulse Resp B/P Pulse Ox O2 Delivery O2 Flow Rate FiO2 09/23/16 08:00 108 09/23/16 08:00 98.6 108 25 165/86 99 09/23/16 06:00 97 09/23/16 04:00 120 09/23/16 04:00 99.9 120 22 157/91 97 09/23/16 04:00 40 09/23/16 03:36 99 40 09/23/16 02:00 112 09/23/16 01:20 100 40 09/23/16 00:00 110 09/23/16 00:00 100.4 110 22 156/88 99 09/23/16 00:00 40 09/22/16 22:00 100 09/22/16 21:07 100 40 09/22/16 20:00 40 09/22/16 20:00 100.2 100 23 129/79 100 09/22/16 20:00 103 09/22/16 18:00 104 09/22/16 16:00 40 09/22/16 16:00 100.0 101 19 151/80 100 09/22/16 16:00 101 09/22/16 15:33 100 40 09/22/16 14:00 100 09/22/16 12:20 100 40 09/22/16 12:00 105 09/22/16 12:00 100.2 105 20 167/99 100 09/22/16 12:00 40 I/O 09/22/16 09/22/16 09/22/16 09/23/16 09/23/16 09/23/16 07:00 15:00 23:00 07:00 15:00 23:00 Intake Total 779 ml 919 ml 688 ml 870 ml Output Total 275 ml 510 ml 390 ml 635 ml 2000 ml Balance 504 ml 409 ml 298 ml 235 ml -2000 ml IV Total 334 ml 361 ml 213 ml 389 ml Tube Feeding 445 ml 498 ml 475 ml 481 ml Tube Irrigant 60 ml Output Urine Total 100 ml Stool Total 275 ml 500 ml 350 ml 525 ml Tube Feeding Residual Discard 0 ml 0 ml 0 ml Drainage Total 10 ml 40 ml 10 ml Hemodialysis 2000 ml Result Diagram: 09/23/16 0333 09/22/16 0403 Objective Remarks VS-S Abd: Wounds clean, vac in place. Drain almost serous in nature,less purulent appearing. Assessment and Plan Assessment and Plan Stable Continue present tx. Claude Flores MD Sep 23, 2016 10:53
[2016-09-23] MEDS: INSULIN NovoLIN REGULAR SUPPLEMENTAL SCALE SQ SCH ×3 (11:00→20:14)
[2016-09-23] MEDS: amLODIPine BESYLATE 5 MG TAB PO SCH ×2 (12:06→20:03)
--- NOTE | 2016-09-23 12:40 | HHI.NPPN ---
Subjective General Problems: Edema Renal Failure: Acute Additional Remarks Patient is on the vent., awake, not in distress. Review of Systems General Constitutional: Fever General Remarks nods head no when asked about pain or SOB. Musculoskeletal MS Remarks generalized pain Objective Data Data 09/22/16 09/23/16 19:00 07:00 Intake Total 919 ml 1558 ml Output Total 510 ml 1025 ml Balance 409 ml 533 ml IV Total 361 ml 602 ml Tube Feeding 498 ml 956 ml Tube Irrigant 60 ml Output Urine Total 100 ml Stool Total 500 ml 875 ml Tube Feeding Residual Discard 0 ml Drainage Total 10 ml 50 ml Vital Signs Date Time Temp Pulse Resp B/P Pulse Ox O2 Delivery O2 Flow Rate FiO2 09/23/16 12:00 100.4 121 27 154/90 98 09/23/16 12:00 121 09/23/16 08:00 108 09/23/16 08:00 98.6 108 25 165/86 99 09/23/16 06:00 97 09/23/16 04:00 120 09/23/16 04:00 99.9 120 22 157/91 97 09/23/16 04:00 40 09/23/16 03:36 99 40 09/23/16 02:00 112 09/23/16 01:20 100 40 09/23/16 00:00 110 09/23/16 00:00 100.4 110 22 156/88 99 09/23/16 00:00 40 09/22/16 22:00 100 09/22/16 21:07 100 40 09/22/16 20:00 40 09/22/16 20:00 100.2 100 23 129/79 100 09/22/16 20:00 103 09/22/16 18:00 104 09/22/16 16:00 40 09/22/16 16:00 100.0 101 19 151/80 100 09/22/16 16:00 101 09/22/16 15:33 100 40 09/22/16 14:00 100 -: 09/23/16 0333 09/22/16 0403 Tubes & Lines: Vas-Cath Tubes & Lines Comment trach TLC, NG tube (R) SERGEI drain RLQ epigastric drain wound vac lower abdomen Drip Comment none Physical Exam General Appearance: Well Developed, No Acute Distress Throat Throat Exam: Oral Mucosa [place] & Moist Pulmonary Resp Exam: Breath Sounds Equal, No Distress, Crackles, Sputum, Diminished Breath Sounds Cardiology CV Exam: Regular, Normal Sinus Rhythm Gastrointestinal/Abdomen GI Exam: Distended Musculoskeletal MS Exam: Joints Intact, Normal Tone Integumentary Skin Exam: Warm, Dry Extremeties Extremities Exam: No Edema, Pedal Pulses Palpable Neurologic Neuro Exam: Alert, Awake, Moving All Extremities VTE Prophylaxis Device: SCDs Assessment/Plan Discussed Condition With: Relative Assessment Summary: VIRIDIANA/Acute Renal Failure, Acute Tubular Necrosis, Fluid/ Volume Overload, Hypertension Problem List: (1) Acute renal failure Plan: He has developed ATN due to sepsis. and has been on daily HD, no fluid removal yesterday still anuric vascath in left IJ, placed 09/18; flow was sluggish yesterday, may need replacement prior to next treatment potassium is normal Avoid nephrotoxic agents. Monitor drug levels and renally dose medications when appropriate Avoid IVF specifically LR. continue Calcium acetate for hyperphosphatemia, phosphorus has improved HD done today and 2 liters removed. Tolerated well, BP is stable. Follow urine out put and BMP. HD as needed. (2) Diverticulitis Plan: persistent fever; s/p colon resection with complications surgery following. he has multiple drains and wound vac due to wound dehiscence pseudomonas in sputum and wound, it is highly resistant ID following, managing antibiotics. He is now on Aztreonam and Levaquin (which are renally dosed) Micafungin and Flagyl; also intermittent vancomycin; given tobramycin IV and via nebs meropenem has been stopped s/p trach placement 09/18 continue tube feeding Problem Qualifiers (1) Acute renal failure: Qualified Code: N17.0 - Acute renal failure with tubular necrosis Enmanuel Donis MD Sep 23, 2016 12:40
[2016-09-23 12:52] LABS: POTASSIUM 4.8 MEQ/L (3.5-5.1)
--- NOTE | 2016-09-23 16:16 | RADRPT ---
EXAM DATE/TIME: 09/23/2016 15:22 [facility] COMPARISON: CT ABDOMEN & PELVIS W/O CONTRAST, September 12, 2016, 4:12. CT ABDOMEN & PELVIS W/O CONTRAST, September 17, 2016, 20:50. INDICATIONS : Evaluate status of abscess drain. ORAL CONTRAST: No oral contrast ingested. RADIATION DOSE: 10.72 CTDIvol (mGy) MEDICAL HISTORY : Renal failure, chronic. Diverticulitis. SURGICAL HISTORY : None. ENCOUNTER: Initial ACUITY: 1 day PAIN SCALE: Non-responsive LOCATION: abdomen. TECHNIQUE: Volumetric scanning of the abdomen and pelvis was performed. Using automated exposure control and ad justment of the mA and/or kV according to patient size, radiation dose was kept as low as reasonably achievable to obtain optimal diagnostic quality images. FINDINGS: Percutaneous pigtail catheter is stable in location when compared to 09/17/16. No discernible hypoden se fluid collections seen in the hepatogastric space. Gastric tube is coiled within the stomach. Stoma in the right lower quadrant stable in appearance. There is a mild amount of free fluid in the cul-de-sac which is a new finding and measures 3.3 cm in thickness. No dilated loops of small and la rge bowel. No evidence of hydronephrosis. No dilated loops of small or large bowel. Previously not ed percutaneous drain in the right lower quadrant has been removed. Bladder contours are smooth. Subsegmental areas of consolidation the right costophrenic angle are smaller when compared to prior. Only a minimal amount opacity in the left costophrenic angle. Wide windows for bony detail demonstr ate the osseous structures to be intact. CONCLUSION: 1. Reduction in size of the hypodense fluid collection in the hepatogastric space with no residual hy podensity seen.. Stable position to be indwelling drainage catheter. 2. Decreasing size lower lung infiltrates. 3. Interval removal of right lower quadrant drain and interval development of a small to moderate siz e amount of fluid in the cul-de-sac. Evelio Boyd MD on September 23, 2016 at 16:09 Board Certified Radiologist. This report was verified electronically.
--- NOTE | 2016-09-23 17:45 | HHI.PR ---
Subjective Remarks on BIPAP , SAT 94% NO DISTRESS Objective Vital Signs Date Time Temp Pulse Resp B/P Pulse Ox O2 Delivery O2 Flow Rate FiO2 09/23/16 16:00 104 09/23/16 16:00 100.8 104 22 100/67 100 09/23/16 15:46 98 100 09/23/16 12:40 93 40 09/23/16 12:00 100.4 121 27 154/90 98 09/23/16 12:00 121 09/23/16 08:00 40 09/23/16 08:00 108 09/23/16 08:00 98.6 108 25 165/86 99 09/23/16 06:00 97 09/23/16 04:00 120 09/23/16 04:00 99.9 120 22 157/91 97 09/23/16 04:00 40 09/23/16 03:36 99 40 09/23/16 02:00 112 09/23/16 01:20 100 40 09/23/16 00:00 110 09/23/16 00:00 100.4 110 22 156/88 99 09/23/16 00:00 40 09/22/16 22:00 100 09/22/16 21:07 100 40 09/22/16 20:00 40 09/22/16 20:00 100.2 100 23 129/79 100 09/22/16 20:00 103 09/22/16 18:00 104 I/O 09/22/16 09/22/16 09/22/16 09/23/16 09/23/16 09/23/16 07:00 15:00 23:00 07:00 15:00 23:00 Intake Total 779 ml 919 ml 688 ml 870 ml 739 ml Output Total 275 ml 510 ml 390 ml 635 ml 2520.0 ml 0 ml Balance 504 ml 409 ml 298 ml 235 ml -1781.0 ml 0 ml IV Total 334 ml 361 ml 213 ml 389 ml 353 ml Tube Feeding 445 ml 498 ml 475 ml 481 ml 386 ml Tube Irrigant 60 ml Output Urine Total 100 ml Stool Total 275 ml 500 ml 350 ml 525 ml 500 ml Gastric Drainage Total 0 ml Tube Feeding Residual Discard 0 ml 0 ml 0 ml 0 ml Drainage Total 10 ml 40 ml 10 ml 20 ml Hemodialysis 2000 ml Result Diagram: 09/23/16 0333 09/23/16 1154 Objective Remarks GENERAL: SKIN: Warm and dry. HEAD: Atraumatic. Normocephalic. EYES: Pupils equal and round. No scleral icterus. No injection or drainage. ENT: No nasal bleeding or discharge. Mucous membranes pink and moist. NECK: Trachea midline. No JVD. CARDIOVASCULAR: Regular rate and rhythm. RESPIRATORY: No accessory muscle use. Clear to auscultation. Breath sounds equal bilaterally. GASTROINTESTINAL: Abdomen soft, non-tender, nondistended. Hepatic and splenic margins not palpable. MUSCULOSKELETAL: Extremities without clubbing, cyanosis, or edema. No obvious deformities. NEUROLOGICAL: Awake and alert. No obvious cranial nerve deficits. Motor grossly within normal limits. Five out of 5 muscle strength in the arms and legs. Normal speech. PSYCHIATRIC: Appropriate mood and affect; insight and judgment normal. Assessment and Plan Assessment and Plan RESPIRATORY FAILUE SEPSIS COPD PLAN O2 NEEDED PULM TOILET DECREASE O2 TOLERATED Eusebio Kaplan MD Sep 23, 2016 17:45
[2016-09-23] MEDS: PHENYTOIN SUSP 100 MG/4 ML CUP PO SCH (20:03)
--- NOTE | 2016-09-23 23:06 | HHI.IDPN ---
Subjective Subjective Remarks ID COVERAGE for delayed entry pt was seen around 4 pm today chard reviewed is a 56-year-old male, admitted to the hospital initially for surgery. He has chronic diverticulitis with extension to the small bowel. He underwent surgery August 19 and had laparoscopic, robotic extensive lysis of adhesions, low anterior resection, and small bowel resection. On August 24 he developed anastomotic leak, and underwent repeat surgery and had exploratory laparotomy, irrigation and diverging loop sigmoid colostomy. On September 02 he developed wound dehiscence in the lower midline incision, and it was felt that it had fascial dehiscence. Wound VAC was started at that time. More recently he was found to have a retroperitoneal abscess, and a percutaneous drain was placed on September 01. Patient has been treated for gram-negative pneumonia. The retroperitoneal abscess culture has grown Pseudomonas, enterococcus, and Iram glabrata. Patient has required ventilatory support. Patient also has developed renal failure, and has been undergoing hemodialysis. His WBC remains elevated. Notes reviewed Discussed with RN and . Patient remains on the vent. Thick yellow to henry secretions, freq suctioning, moderate amounts. On sedation. Low blood pressure, clinically dry, HD was yday. His colostomy is working; large amount of liquid stool Has minimal urine output, undergoes HD daily. Has a HD catheter in groin. WBC down to 16 K today No rash cont to receive HD for renal replacemant therapy, UOP is minimal Antibiotics azactam levaquin flagyl Micafungin IV Lines HD cath site ok. Past Medical History 1. Diverticulitis. 2. COPD. 3. Hypertension. 4. Anxiety disorder. 5. BPH. 6. History of tonsillectomy. Allergies: Coded Allergies: No Known Allergies (Verified , 08/18/16) Objective . Vital Signs Date Time Temp Pulse Resp B/P Pulse Ox O2 Delivery O2 Flow Rate FiO2 09/23/16 21:04 100 40 09/23/16 20:00 40 09/23/16 20:00 98 09/23/16 20:00 100.0 98 28 151/86 97 09/23/16 16:00 104 09/23/16 16:00 100.8 104 22 100/67 100 09/23/16 15:46 98 100 09/23/16 12:40 93 40 09/23/16 12:00 100.4 121 27 154/90 98 09/23/16 12:00 121 09/23/16 09:50 97 40 09/23/16 08:00 40 09/23/16 08:00 108 09/23/16 08:00 98.6 108 25 165/86 99 09/23/16 06:00 97 09/23/16 04:00 120 09/23/16 04:00 99.9 120 22 157/91 97 09/23/16 04:00 40 09/23/16 03:36 99 40 09/23/16 02:00 112 09/23/16 01:20 100 40 09/23/16 00:00 110 09/23/16 00:00 100.4 110 22 156/88 99 09/23/16 00:00 40 09/22/16 09/22/16 09/23/16 15:00 23:00 07:00 Intake Total 919 ml 688 ml 870 ml Output Total 510 ml 390 ml 635 ml Balance 409 ml 298 ml 235 ml IV Total 361 ml 213 ml 389 ml Tube Feeding 498 ml 475 ml 481 ml Tube Irrigant 60 ml Output Urine Total 100 ml Stool Total 500 ml 350 ml 525 ml Tube Feeding Residual Discard 0 ml Drainage Total 10 ml 40 ml 10 ml . Laboratory Tests Test 09/22/16 09/23/16 04:03 03:33 White Blood Count 20.5 TH/MM3 16.2 TH/MM3 Red Blood Count 3.10 MIL/MM3 3.04 MIL/MM3 Hemoglobin 8.9 GM/DL 9.0 GM/DL Hematocrit 26.4 % 25.8 % Mean Corpuscular Volume 85.0 FL 84.9 FL Mean Corpuscular Hemoglobin 28.6 PG 29.7 PG Mean Corpuscular Hemoglobin 33.6 % 35.0 % Concent Red Cell Distribution Width 15.8 % 15.9 % Platelet Count 403 TH/MM3 401 TH/MM3 Mean Platelet Volume 8.5 FL 8.5 FL Neutrophils (%) (Auto) 75.5 % Lymphocytes (%) (Auto) 9.5 % Monocytes (%) (Auto) 11.6 % Eosinophils (%) (Auto) 2.4 % Basophils (%) (Auto) 1.0 % Neutrophils # (Auto) 15.5 TH/MM3 Lymphocytes # (Auto) 1.9 TH/MM3 Monocytes # (Auto) 2.4 TH/MM3 Eosinophils # (Auto) 0.5 TH/MM3 Basophils # (Auto) 0.2 TH/MM3 CBC Comment AUTO DIFF Differential Total Cells 100 Counted Neutrophils % (Manual) 76 % Band Neutrophils % 3 % Lymphocytes % 10 % Monocytes % 2 % Eosinophils % 5 % Basophils % 2 % Neutrophils # (Manual) 16.6 TH/MM3 Metamyelocytes 2 % Differential Comment FINAL DIFF MANUAL Platelet Estimate NORMAL Platelet Morphology Comment NORMAL Red Cell Morphology Comment NORMAL Laboratory Tests Test 09/22/16 09/23/16 04:03 11:54 Sodium Level 139 MEQ/L 137 MEQ/L Potassium Level 4.5 MEQ/L 4.8 MEQ/L Chloride Level 100 MEQ/L 100 MEQ/L Carbon Dioxide Level 28.0 MEQ/L 27.0 MEQ/L Anion Gap 11 MEQ/L 10 MEQ/L Blood Urea Nitrogen 60 MG/DL 57 MG/DL Creatinine 4.28 MG/DL 3.95 MG/DL Estimat Glomerular Filtration 14 ML/MIN 16 ML/MIN Rate Random Glucose 120 MG/DL 147 MG/DL Calcium Level 9.5 MG/DL 9.7 MG/DL Phosphorus Level 4.4 MG/DL 2.8 MG/DL Albumin 2.5 GM/DL 2.6 GM/DL Imaging Last Impressions Abdomen/Pelvis CT 09/23/16 0000 Signed Impressions: Service Date/Time: Friday, September 23, 2016 15:22 - CONCLUSION: 1. Reduction in size of the hypodense fluid collection in the hepatogastric space with no residual hypodensity seen.. Stable position to be indwelling drainage catheter. 2. Decreasing size lower lung infiltrates. 3. Interval removal of right lower quadrant drain and interval development of a small to moderate size amount of fluid in the cul-de-sac. Evelio Boyd MD Chest X-Ray 09/21/16 0000 Signed Impressions: Service Date/Time: August 12:39 - CONCLUSION: Decreasing bilateral pulmonary opacity with residual atelectasis at the right lung base. Javier Augilar MD Upper Extremity Ultrasound 09/17/16 0000 Signed Impressions: Service Date/Time: Saturday, September 17, 2016 16:48 - CONCLUSION: 1. Positive nonocclusive deep venous thrombosis right internal jugular vein. 2. Nonocclusive superficial thrombosis in the left cephalic vein. Miki Banerjee MD Lower Extremity Ultrasound 09/17/16 0000 Signed Impressions: Service Date/Time: Saturday, September 17, 2016 17:33 - CONCLUSION: Normal examination. Miki Banerjee MD Head CT 09/17/16 0000 Signed Impressions: Service Date/Time: Saturday, September 17, 2016 20:47 - CONCLUSION: 1. No acute intracranial abnormalities. Miki Banerjee MD Chest CT 09/17/16 0000 Signed Impressions: Service Date/Time: Saturday, September 17, 2016 20:46 - CONCLUSION: 1. Multifocal airspace consolidation in the lungs, right greater than left most characteristic of bronchopneumonia. There is underlying mild to moderate emphysema. Small effusions. Miki Banerjee MD Abscess Drainage CT 09/13/16 0000 Signed Impressions: Service Date/Time: Tuesday, September 13, 2016 14:30 - CONCLUSION: Uncomplicated CT guided drainage. Carlo Cortes MD Retroperitoneal Abscess Drainage 09/01/16 0600 Signed Impressions: Service Date/Time: Thursday, September 01, 2016 13:05 - CONCLUSION: Uncomplicated CT guided drainage of a right lower quadrant fluid collection. Approximately 75 cc of fecal-like brown material was aspirated. The air and fluid collection may communicate with the inferior aspect of the midline wound on the anterior abdominal wall. Claude Carrasco MD Abdomen X-Ray 08/24/16 0000 Signed Impressions: Service Date/Time: August 07:44 - CONCLUSION: Gaseous distention of multiple bowel loops possible ileus. Jony Miller MD Enema w/Water Soluble 08/23/16 Signed Impressions: Service Date/Time: Tuesday, August 23, 2016 10:12 - CONCLUSION: Anastomosis appears patent without extravasation. Aditya Rocha MD FACR CT Angiography 08/21/16 0000 Signed Impressions: Service Date/Time: Sunday, August 21, 2016 14:05 - CONCLUSION: 1. There is no evidence for central pulmonary emboli. 2. Minimal subcutaneous air as well as free intraperitoneal air. Aditya Rocha MD FACR Physical Exam GENERAL: On sedation, but opens eyes, NAD. On the vent SKIN: Warm, no rash HEENT: [place] conjunctivae, no scleral icterus. He is orally intubated. NECK: No adenopathy or swelling. LUNGS: Coarse breath sounds bilaterally, decreased at the bases. HEART: Regular rate and rhythm. No audible murmurs, rubs or gallops. ABDOMEN: Distended. Has midline incision, with wound vac at lower portion, Colostomy pink with brown stool RLQ. 1 accordion drain with serosang d/c, EXTREMITIES: No clubbing or cyanosis. Edema improving. Well-perfused NEUROLOGIC: Awake, following commands, + eye contact LINE: No evidence of infection Assessment & Plan Remarks IMPRESSION 1. Sepsis. Pseudomonas on CVL culture of removed line. 2. Peritonitis. Post abdominal surgery/Bowel resection - enterococcus, pseudomonas and yeast. CT from yday showed Reduction in size of the hypodense fluid collection 3. Pneumonia. pseudomonas ( resistant strain). Noted additional sensitivities on the pseudomonas. Zerbaxa,Avycaz, Colistin. 4. Leukocytosis secondary to infection. WBC still elevated, but trending down 5. Acute renal failure, on HD 6. Acute respiratory failure. Remains vent. dependent. 7. Thrombosis R. internal Jugular vein. 8. Fever persistent. Probably because of resistant organism. ? line vs intra abdominal infection vs PNA. RECOMMENDATIONS 1. change Micafungin. to fluconazole 2. Continue Aztreonam. Adjusted for renal function. 3. cont Tobramycin nebulized. 4. Continue Levaquin. Adjusted for renal function. 5. Tobramycin level. 6. Continue Flagyl. 7. Follow culture of abdominal drainage. 8. Monitor white blood cell count. 9. Monitor temps. 10. Vancomycin dose today. 11. Repeat CXR. Karen Gann RN, MD Sep 23, 2016 23:06
[2016-09-24] VITALS (15 sets, daily range): BP systolic 138–173; BP diastolic 88–104; PULSE 94–117; RESP 22–32; TEMP 97.3–100.4; O2SAT 96–100
[2016-09-24] MEDS: FLUCONAZOLE 200 MG PREMIX BAG 100 ML IV SCH (00:26)
[2016-09-24] MEDS: AZTREONAM INJ 500 MG in SODIUM CHLORIDE 0.9% INJ 100 ML IV SCH ×2 (00:26→13:09)
[2016-09-24] MEDS: LABETALOL HCL 100 MG/20 ML VIAL IV PUSH PRN ×3 (00:37→17:10)
[2016-09-24] MEDS: SODIUM CHLORIDE 0.9% 10 ML VIAL IV FLUSH SCH ×3 (01:30→17:28)
[2016-09-24] MEDS: HEPARIN SODIUM - SQ 10,000 UNITS/ML VIAL SQ SCH ×3 (01:32→17:28)
[2016-09-24] MEDS: LORazepam 2 MG/ML VIAL IV PUSH PRN ×4 (02:02→21:37)
[2016-09-24] MEDS: RESP: ALBUTEROL 2.5 MG/3 ML NEB (SCH) INH ×6 (03:31→23:54)
[2016-09-24 04:24] LABS: AUTOMATED NEUTROPHIL # 13.2 TH/MM3 (1.8-7.7); BASOPHIL # 0.2 TH/MM3 (0-0.2); BASOPHIL % 1.3 % (0.0-2.0); EOSINOPHIL # 0.4 TH/MM3 (0-0.4); EOSINOPHIL % 1.9 % (0.0-4.0); HEMATOCRIT 28.6 % (39.0-51.0); HEMO FLAGS AUTO DIFF; LYMPH % 15.1 % (9.0-44.0); LYMPHOCYTE # 2.9 TH/MM3 (1.0-4.8); MEAN CELL VOLUME 85.2 FL (80.0-100.0); MEAN CORPUSCULAR HEMOGLOBIN 28.4 PG (27.0-34.0); MEAN CORPUSCULAR HGB CONC 33.4 % (32.0-36.0); MONO % 12.7 % (0.0-8.0); PLATELET COUNT 557 TH/MM3 (150-450); RED BLOOD COUNT 3.35 MIL/MM3 (4.50-5.90); RED CELL DISTRIBUTION WIDTH 15.9 % (11.6-17.2)
[2016-09-24 04:33] LABS: APTT (PATIENT) 28.2 SEC (24.3-30.1); INTERNATIONAL NORMALIZED RATIO 1.1 RATIO; PROTHROMBIN TIME - PATIENT 11.7 SEC (9.8-11.6)
[2016-09-24] MEDS: metroNIDAZOLE 500 MG INJ 100 ML IV SCH ×3 (04:35→17:28)
[2016-09-24 04:57] LABS: BASOPHILS 1 % (0-2); EOSINOPHILS 4 % (0-4); NEUTROPHIL # MANUAL DIFF 14.4 TH/MM3 (1.8-7.7); POLYS (SEG NEUTROPHILS) 76 % (16-70); WBC DIFF SAMPLE 100
[2016-09-24 04:58] LABS: PLATELET ESTIMATE SMEAR HIGH (NORMAL); PLATELET MORPHOLOGY NORMAL (NORMAL); SCAN/DIFF FINAL DIFF MANUAL; TEARDROP RBCS 1+ (NORMAL)
--- NOTE | 2016-09-24 05:04 | RADRPT ---
EXAM DATE/TIME: 09/24/2016 03:23 [facility] COMPARISON: CT ABDOMEN & PELVIS W/O CONTRAST, September 23, 2016, 15:22. CHEST SINGLE AP, September 21, 2016, 12:39. INDICATIONS : Shortness of breath. MEDICAL HISTORY : Chronic obstructive pulmonary disease. SURGICAL HISTORY : Tracheostomy. ENCOUNTER: Subsequent ACUITY: 1 month PAIN SCORE: Non-responsive. LOCATION: Bilateral chest FINDINGS: Rotated and underinflated AP view of the chest demonstrates a normal-sized cardiac silhouette. Trache ostomy, NG tube, and left IJ central line remain present. There is a stable airspace opacity at the r ight base and atelectasis at the left base. No pneumothorax or pleural effusion is visualized. CONCLUSION: Stable chest x-ray with underinflation and atelectasis at the bases and stable mild airspace opacity at the right base. Claude Carrasco MD on September 24, 2016 at 5:01 Board Certified Radiologist. This report was verified electronically.
[2016-09-24 05:19] LABS: ALKALINE PHOSPHATASE 327 U/L (45-117); ALT (GPT) 17 U/L (12-78); ANION GAP 12 MEQ/L (5-15); AST (GOT) 38 U/L (15-37); BICARBONATE 25.2 MEQ/L (21.0-32.0); BLOOD UREA NITROGEN 80 MG/DL (7-18); CHLORIDE 100 MEQ/L (98-107); GLOMERULAR FILTRATION RATE 12 ML/MIN (>89); MAGNESIUM 2.3 MG/DL (1.5-2.5); SODIUM (NA) 137 MEQ/L (136-145); TOTAL BILIRUBIN ADULT 0.9 MG/DL (0.2-1.0)
[2016-09-24] MEDS: ARTIFICIAL TEARS OPTH SOLN 15 ML BTL EACH EYE SCH ×3 (05:32→21:47)
[2016-09-24] MEDS: cloNIDine HCL 0.1 MG TAB PO SCH ×3 (05:32→21:37)
[2016-09-24 05:37] LABS: POTASSIUM 6.2 MEQ/L (3.5-5.1)
[2016-09-24] MEDS ORDERED: SODIUM BICARBONATE 8.4% SOLN 50 MEQ/50 ML VIAL SLOW IVP ONE ×3 (07:00→20:00)
[2016-09-24] MEDS: INSULIN NovoLIN REGULAR SUPPLEMENTAL SCALE SQ SCH ×4 (07:00→21:18)
[2016-09-24] MEDS ORDERED: DEXTROSE 50% IN WATER 50 ML VIAL(D50) IV PUSH ONE ×3 (07:00→20:00)
[2016-09-24] MEDS ORDERED: SODIUM POLYSTYRENE SULFONATE SUSP 15 GM/60 ML CUP PO ONE ×3 (07:00→20:00)
[2016-09-24] MEDS ORDERED: INSULIN HUMAN REGULAR 1,000 UNITS/10 ML VIAL IV PUSH ONE ×3 (07:15→20:00)
--- NOTE | 2016-09-24 07:19 | HHI.CCPN ---
Subjective Remarks/Hospital Course 08/25: Patient is a 58-year-old male with past medical history significant COPD who, on 08/18/16, underwent Laparoscopic robotic extensive lysis of adhesions, low anterior resection and small bowel resection. Apparently he was brought in by Dr. Moffett for Diverticulitis. Patient has a history of hypertension, COPD, and continues to smoke one pack of cigarettes a day. Postoperatively patient became progressively short of breath. Pulmonary was consulted on 08/21/16 as the patient was becoming more hypoxemic requiring BiPAP. CT of the chest PE protocol did not show any pulmonary embolism. Patient was placed on breathing treatments and IV Solu-Medrol 40 mg every [address] Renteria. Today a.m. patient was on 100% nonrebreather. Patient was diagnosed with an anastomotic leak today and was taken back to the OR by Dr. Moffett. He underwent exploratory laparotomy, I&D and loop ileostomy today. Postop patient remained hypoxemic requiring 70% oxygen, and hence was left intubated and critical care medicine was consulted. Dr. Arce evaluated the patient in ICU. He remained hypoxemic, FiO2 70%. Chest x-ray shows bibasilar mild infiltrates. On sedation lightening patient became very hypertensive, not following commands probably secondary to residual NM blockade received while being transported to ICU. Patient on receiving vancomycin Levaquin and Flagyl per Dr. Moffett. Dr. Arce added cefepime to cover for Pseudomonas. Holding Solu-Medrol due to anastomotic leak. 08/26: Remains sedated, orally intubated on mechanical ventilation. Went into anuric renal failure yesterday which did not respond to fluid boluses and diuretics hence was started on hemodialysis after placement of right IJ Vas- Cath. Currently sedated, arousable, remains orally intubated on mechanical ventilation. Blood pressure borderline last evening following dialysis for which she was started on low-dose vasopressin 0.03 units per minute and Levophed which is currently at 1 jose per minute. Started on TPN last night following which he has been hyperglycemic. 08/27: Sedated, arousable, orally intubated on mechanical ventilation. Spiking fevers overnight. Off Levophed, transiently off vasopressin. Remains on TPN. 08/28: Remains sedated, arousable, orally intubated on mechanical ventilation. On low-dose vasopressin. TPN continues. Made about 500 cc of urine in the last 24 hours. 08/29: In sedated, arousable, orally intubated on mechanical ventilation. Remains on TPN. Dirty drainage from left-sided SERGEI drain noted overnight. Dr. Moffett obtaining CT abdomen pelvis with oral contrast and ID consulted. 08/30: CURRENT TEMPERATURE 99. Status post 4 L hemodialysis today. No current change in therapy. White blood cell count remained stable. Off vasopressors. Arousable to voice. Versed has been discontinued. We'll attempt CPAP trials again today. 08/31: MAXIMUM TEMPERATURE 100.4. Currently 100.1. Currently resting in bed in no acute distress. Continues with scant drainage from bilateral JPs. We'll attempt CPAP trial again today. Positive stool from ostomy bag 09/01: Tmax 99.8. Currently 99.3. Placement of the new right IJ vas catheter today. Plan for IR to possibly drain right lower quadrant fluid collection. Arousable and moves all 4 extremity spontaneously. 09/02: Currently afebrile. Noted placement of iron drain with accordion drain. Growing Pseudomonas. Lasted only 2 hours on CPAP trials today. 09/03: Tolerated SBT for only 30 mins and required PS 20. Not ready to extubate. 09/04: Tachypnea related to anxiety? or metabolic acidosis. Will check VBG. Not tolerating SBT. Anemia. Transfuse during HD. 09/05: Remains very tachypneic on SBTs. Unable to extubate. 09/06: Leukocytosis and bandemia. Acts like ongoing sepsis. 09/07: No significant changes. Afebrile. Tolerating TFs as recommended by CRS. Will transition from TPN to enteral feeds now. 09/08: Bandemia persists. Tolerating full TFs. D/c'd TPN. Glucose control acceptable. 09/09: Tolerating longer CPAP/PS trials. 09/10: Stronger respiratory effort. Try to extubate today. 09/11: Stable hemodynamics, marginal respiratory function. 09/11 update 1800 hrs: Patient developed sudden hyperventilation to 55-60/min, hypertensive urgency to 220/120s, unresponsive state, started versed 10 mg/hr after 10 mg iv. Load with cerebyx, get head CT, EEG in a.m. 09/12: BP and pulse rate control improved with sedation. Etiology unclear. Suspected intracranial process but CT head normal. Possibly seizures. EEG pending this morning. WBC with bandemia persists. 09/13: CURRENT TEMPERATURE 99. Heart rate and blood pressure control. Noted T changes last night noted a potassium 8.2. Noted hemodialysis catheter placed by overnight nursing program coordinator in right femoral vein and hemodialysis currently undergoing. Plan for drainage of epigastric fluid collection by IR today. 09/14: Currently afebrile. Status post prior drainage of epigastric fluid area. Currently 60 ccwhite pus accordian drain. Status post bronchoscopy yesterday. 09/15 - intubation day #22. Family waiting another 24 hours to consider tracheostomy. He is not able to be extubated. Currently undergoing hemodialysis. Likely dialysis dependent. 09/16: Tmax 100.2. Blood pressure slowly trending downward. He transfuse PRBCs and albumin bolus prior to hemodialysis today. Intubation day #23. Family currently agreeable to tracheostomy but I'm unable to perform until Sunday. Positive BM. 09/17: Tmax 101. Intubation day #24. Tolerating tube feeding. Currently on Versed and fentanyl drips. 09/18: Remains sedated, orally intubated on mechanical ventilation. Scheduled for percutaneous tracheostomy today. Was dialyzed yesterday. Percutaneous drains [address] Ileostomy with good output. Wound VAC in place over anterior abdominal incision site. 09/19: Remains sedated, on mechanical ventilation via tracheostomy. Patient was noted to have some blood oozing from around tracheostomy site this morning as well as around Vas-Cath. Pressure dressing to be applied around Vas-Cath and packing around tracheostomy site and Dr. Howard informed. 09/20: Remains on fentanyl. On mechanical ventilation via tracheostomy. Continues to have fevers. No further bleeding from tracheostomy site or Vas- Cath site. 09/21: Remains on mechanical ventilation via tracheostomy. Resuming subcutaneous heparin today. No further bleeding from Vas-Cath or tracheostomy site. 09/22: Remains on mechanical ventilation, daily C Pap trials. Awake and alert this morning, following commands. 09/23: Tmax 100.2. Currently afebrile. Some oozing from hemodialysis catheter/ left IJ today. Plan for -2 L. Currently on mechanical ventilation while on hemodialysis. Awake and alert and following commands. Subjective 09/24: MAXIMUM TEMPERATURE 100.4. Currently afebrile. Noted hyperkalemia this am. Protocol initiated. Will recheck potassium in 3 hours. Awake and alert and following commands. Objective Vital Signs Date Time Temp Pulse Resp B/P Pulse Ox O2 Delivery O2 Flow Rate FiO2 09/24/16 06:00 102 09/24/16 04:25 100 40 09/24/16 04:00 100.4 22 138/90 Intake and Output 09/23/16 09/23/16 09/24/16 08:00 16:00 00:00 Intake Total 870 ml 739 ml 628 ml Output Total 635.0 ml 2520.0 ml 675 ml Balance 235.0 ml -1781.0 ml -47 ml Result Diagram: 09/24/16 0332 09/24/16 0332 Other Results Microbiology Date/Time Procedure Status Source Growth 09/20/16 14:00 Gram Stain - Final Complete Wound Drainage 09/20/16 14:00 Wound Culture - Final Complete Iram Parapsilosis Iram Albicans Imaging Last Impressions Chest X-Ray 09/24/16 0600 Signed Impressions: Service Date/Time: Saturday, September 24, 2016 03:23 - CONCLUSION: Stable chest x-ray with underinflation and atelectasis at the bases and stable mild airspace opacity at the right base. Claude Carrasco MD Abdomen/Pelvis CT 09/23/16 0000 Signed Impressions: Service Date/Time: Friday, September 23, 2016 15:22 - CONCLUSION: 1. Reduction in size of the hypodense fluid collection in the hepatogastric space with no residual hypodensity seen.. Stable position to be indwelling drainage catheter. 2. Decreasing size lower lung infiltrates. 3. Interval removal of right lower quadrant drain and interval development of a small to moderate size amount of fluid in the cul-de-sac. Evelio Boyd MD Upper Extremity Ultrasound 09/17/16 0000 Signed Impressions: Service Date/Time: Saturday, September 17, 2016 16:48 - CONCLUSION: 1. Positive nonocclusive deep venous thrombosis right internal jugular vein. 2. Nonocclusive superficial thrombosis in the left cephalic vein. Miki Banerjee MD Lower Extremity Ultrasound 09/17/16 0000 Signed Impressions: Service Date/Time: Saturday, September 17, 2016 17:33 - CONCLUSION: Normal examination. Miki Banerjee MD Head CT 09/17/16 0000 Signed Impressions: Service Date/Time: Saturday, September 17, 2016 20:47 - CONCLUSION: 1. No acute intracranial abnormalities. Miki Banerjee MD Chest CT 09/17/16 0000 Signed Impressions: Service Date/Time: Saturday, September 17, 2016 20:46 - CONCLUSION: 1. Multifocal airspace consolidation in the lungs, right greater than left most characteristic of bronchopneumonia. There is underlying mild to moderate emphysema. Small effusions. Miki Banerjee MD Abscess Drainage CT 09/13/16 0000 Signed Impressions: Service Date/Time: Tuesday, September 13, 2016 14:30 - CONCLUSION: Uncomplicated CT guided drainage. Carlo Cortes MD Retroperitoneal Abscess Drainage 09/01/16 0600 Signed Impressions: Service Date/Time: Thursday, September 01, 2016 13:05 - CONCLUSION: Uncomplicated CT guided drainage of a right lower quadrant fluid collection. Approximately 75 cc of fecal-like brown material was aspirated. The air and fluid collection may communicate with the inferior aspect of the midline wound on the anterior abdominal wall. Claude Carrasco MD Abdomen X-Ray 08/24/16 Signed Impressions: Service Date/Time: August 07:44 - CONCLUSION: Gaseous distention of multiple bowel loops possible ileus. Jony Miller MD Enema w/Water Soluble 08/23/16 0000 Signed Impressions: Service Date/Time: Tuesday, August 23, 2016 10:12 - CONCLUSION: Anastomosis appears patent without extravasation. Aditya Rocha MD FACR CT Angiography 08/21/16 0000 Signed Impressions: Service Date/Time: Sunday, August 21, 2016 14:05 - CONCLUSION: 1. There is no evidence for central pulmonary emboli. 2. Minimal subcutaneous air as well as free intraperitoneal air. Aditya Rocha MD FACR Objective Remarks GENERAL: 56-year-old male, critically ill, currently on mechanical ventilation via tracheostomy SKIN: Warm. Dry. No rash HEAD: Atraumatic. Normocephalic. ENT: mucosa moist NECK: Tracheostomy in place. LIJ Vas-Cath in place without bleeding CARDIOVASCULAR: Tachy, RR. S1, S2. No S4. No m/c/g/r. RESPIRATORY: On mechanical ventilation, scattered rhonchi appreciated in all lung nesbitt, no wheezing. GASTROINTESTINAL: Abdomen non distended. Midline incision clean and intact. BS active. Ostomy pink with brown stool. 1 accordion drain, [address]. MUSCULOSKELETAL: Extremities with trace positive bilateral upper and lower extremity edema, well perfused. NEUROLOGICAL:Pupils equal round and reactive 2 mm bilaterally. Awake and alert and interactive. Moves all 4 extremities spontaneously. Date of Insertion: Aug 31, 2016 Date of Removal: Sep 12, 2016 Side: Right A/P Assessment and Plan NEURO/PSYCH: History of anxiety Acute toxic metabolic encephalopathymultifactorial Acetaminophen for fever Haldol 1 mg every 4 hours when necessary Ativan 0.5 mg every one hour when necessary agitation Morphine sulfate 3 milligrams IV every 3 hours when necessary pain -Daily sedation vacation, follow neuro status. -Head CT 09/11 no acute intracranial findings -EEG 09/12 revealed mild to moderate encephalopathy. No epileptiform activity. Currently on Cerebyx 300 mg liquid at night. Level 5.7 on 09/18. Recheck in a.m. / RESP: Acute hypoxemic respiratory failure COPD exacerbation Probable healthcare associated pneumonia -Continue ACV 22/600 0.75/5/40 Ventilator bundle -Albuterol nebs every 4 hours scheduled and when necessary duo nebs, Symbicort 2 puffs every 12 was discontinued while in ventilator. Continue Pulmicort 0.5/2 twice a day -Broad-spectrum antibiotics as below -Continue daily C Pap trials. Dr. Renteria/Pulmonary following Increase SBTs length as able. s/p tracheostomy 09/18 CV: Hypotension secondary to septic shock resolved History of hypertension -Received multiple fluid boluses on 08/25. IV fluids discontinued subsequently in view of anuria necessitating hemodialysis. Off all vasopressors -Attempt negative fluid balance with hemodialysis. Currently on clonidine 0.1 3 times a day, Norvasc 5 mg twice a day and Coreg 3.125 twice a day. Labetalol prn GI/ Nutrition: Anastomotic leak status post exploratory laparotomy, I&D, loop ileostomy 08/24/16 s/p Laparoscopic robotic extensive ANNA MARIE, robotic LAR and small bowel resection Laparoscopic robotic ANNA MARIE, robotic LAR and small bowel resection with anastomotic leak History of diverticulitis -Status post exploratory laparotomy, I&D, loop ileostomy 08/24/16 -Postoperative management per Dr. Moffett. Broad-spectrum antibiotics as below. positive ostomy output CT abdomen pelvis with oral contrast 08/29 reveal small bowel ileus. Serous fluid collection likely postoperative changes. - On Reglan to improve GI motility -Off TPN as tolerating tube feeds. On Glucerna 1.5 goal 60 cc an hour. Protonix for GI prophylaxis Wound VAC with purulent drainage 20 cc. Accordion to epigastric drain with purulent drainage [address] abdomen/pelvis 09/23 revealed decreased fluid in the hepatogastric region. Removal of interval drains. Small to moderate fluid in the cul-de-sac. Renal/: Acute kidney injury History BPH Status post bilateral ureteral stents placed by Dr. Fraser 08/18 -Monitor renal function closely. Mg catheter. -IV fluids discontinued in view of anuric renal failure and hyperkalemia necessitating hemodialysis. Nephrology consulted and following. -Attempt maintaining even to slightly negative fluid balance. New right IJ hemodialysis catheter placed 09/01 -> D/C 09/13. New right femoral hemodialysis catheter placed 09/13 -> D/C 09/19 New LIJ vascath placed 09/18 ID: Anastomotic leak Sepsis Probable HCAP -IV vancomycin, Flagyl and Levaquin per Dr. Moffett. Levaquin discontinued . Zosyn started 09/02- 09/16. Flagyl and micafungin per ID added. Merrem added 09/15. Micafungin discontinued 09/23 Current regimen is Levaquin 250 IV every 48 hours, Flagyl 500 mg IV every 6 hours, Diflucan 200 mg IV 24 hours and aztreonam 500 mg IV every 12 hours. Also tobramycin aerosols twice a day and pulse dose of vancomycin. Pertinent culture 09/20 - wound - Pseudomonas and Iram Alb and Paropsilosis 09/17 - sputum - Pseudomonas 09/17 - blood cultures 2- no growth 09/13 - bronchial -Pseudomonas 09.13 - abdomen abscess -Pseudomonas/yeast 09/01: Abdominal wound - Pseudomonas, enterococcus, Iram 08/31 - line culture Pseudomonas/coag negative staph 08/31 - blood cultures 2 -no growth 08/31 - sputum - pending 08/29 - wound - Pseudomonas, group D enterococcus, C. albicans and yeast 08/25 blood cultures - no growth 08/25 sputum - Serratia/Klebsiella/Pseudomonas 08/24 - wound - no growth HEME: Leukocytosis Normocytic anemia Thrombocytosis RIJ DVT (nonocclusive) Left cephalic superficial thrombus -Monitor CBC, CMP, coags - On anticoagulation with heparin (for right IJ nonocclusive thrombus/ left cephalic vein) which was put on hold since 09/11 for tracheostomy. Started subcutaneous heparin on 09/21 and if no bleeding will consider advancing to full anticoagulation. ENDO: -Sliding-scale insulin for glycemic control. Levemir 20 units twice a day currently on hold FEN: Hyperphosphatemia Hyperkalemia Continue PhosLo 1334 mg 3 times a day for hyperphosphatemia. Hemodialysis per renal. Receiving D50/insulin/bicarbonate/Kayexalate. Recheck in 3 hours. PROPH: -Bilateral lower extremity SCDs. Heparin gtt for RIJ DVT (held 09/18 for scheduled trach). Currently on heparin subcutaneous Protonix for GI prophylaxis LINES: -Left subclavian central line placed in the OR 08/24 - 08/31. Right subclavian central line placed 08/31 - 09/11 - RIJ dialysis catheter 08/25 -08/31. New right IJ hemodialysis catheter 09/01 - - Right femoral hemodialysis catheter 09/13 Critical Care: The total critical care time was 35 minutes. Time to perform other separately billable procedures was not included in the critical care time. Connor Lebron MD Sep 24, 2016 07:19
[2016-09-24] MEDS: RESP: TOBRAMYCIN SULFATE 300 MG/5 ML NEB NEB SCH ×2 (07:59→19:53)
[2016-09-24] MEDS: RESP: BUDESONIDE 0.5 MG/2 ML NEB NEB SCH ×2 (07:59→19:53)
[2016-09-24] MEDS: CHLORHEXIDINE 0.12% (ORAL KIT) 15 ML CUP MT SCH ×2 (08:00→20:35)
--- NOTE | 2016-09-24 10:00 | HHI.PR ---
Subjective Remarks Pt looks better. More alert. CT yesterday shows collections all drained. Objective Vital Signs Date Time Temp Pulse Resp B/P Pulse Ox O2 Delivery O2 Flow Rate FiO2 09/24/16 08:03 100 40 09/24/16 08:00 40 09/24/16 06:00 102 09/24/16 04:25 100 40 09/24/16 04:00 95 09/24/16 04:00 40 09/24/16 04:00 100.4 94 22 138/90 100 09/24/16 02:00 97 09/24/16 00:00 96 09/24/16 00:00 40 09/24/16 00:00 100.2 98 22 173/100 98 09/23/16 23:20 99 40 09/23/16 22:00 99 09/23/16 21:04 100 40 09/23/16 20:00 40 09/23/16 20:00 98 09/23/16 20:00 100.0 98 28 151/86 97 09/23/16 16:00 104 09/23/16 16:00 100.8 104 22 100/67 100 09/23/16 15:46 98 100 09/23/16 12:40 93 40 09/23/16 12:00 100.4 121 27 154/90 98 09/23/16 12:00 121 I/O 09/23/16 09/23/16 09/23/16 09/24/16 09/24/16 09/24/16 07:00 15:00 23:00 07:00 15:00 23:00 Intake Total 870 ml 739 ml 628 ml 910 ml Output Total 635 ml 2520.0 ml 675 ml 630 ml Balance 235 ml -1781.0 ml -47 ml 280 ml IV Total 389 ml 353 ml 168 ml 485 ml Tube Feeding 481 ml 386 ml 460 ml 425 ml Output Urine Total 100 ml 100 ml 100 ml Stool Total 525 ml 500 ml 550 ml 500 ml Gastric Drainage Total 0 ml Tube Feeding Residual Discard 0 ml 0 ml Drainage Total 10 ml 20 ml 25 ml 30 ml Hemodialysis 2000 ml Result Diagram: 09/24/1633109/24/16331 Objective Remarks VS-S Abd: Wounds clean, vac in place. Drain almost serous in nature,less purulent appearing. Labs- WBC 19K Assessment and Plan Assessment and Plan Stable Continue present tx. No CT drainage needed. Claude Flores MD Sep 24, 2016 10:00
[2016-09-24] MEDS: PANTOPRAZOLE SODIUM 40 MG VIAL IVP SCH (10:08)
[2016-09-24] MEDS: amLODIPine BESYLATE 5 MG TAB PO SCH ×2 (10:08→20:36)
[2016-09-24] MEDS: CARVEDILOL 3.125 MG TAB PO SCH ×2 (10:08→20:36)
[2016-09-24] MEDS: SODIUM CHLORIDE 0.9% FLUSH 5 ML FLUSH IVF SCH ×2 (10:08→20:48)
[2016-09-24] MEDS: CALCIUM ACETATE 667 MG CAP PO SCH ×3 (10:08→17:28)
[2016-09-24] MEDS: LACTOBACILLUS ACIDOPHILUS TAB NG SCH ×3 (10:08→17:28)
[2016-09-24] MEDS: MUPIROCIN 2% OINT 1 APPLIC/GM SYR EACH NARE SCH ×2 (10:09→20:49)
[2016-09-24] MEDS: RESP: ALBUTEROL 2.5 MG/IPRATROPIUM 0.5 MG NEB (PRN) NEB (11:04)
--- NOTE | 2016-09-24 12:32 | HHI.NPPN ---
Subjective General Problems: Edema Renal Failure: Acute Additional Remarks Patient is on the vent., sleepy but arousable, not in distress. Review of Systems General Constitutional: Fever General Remarks nods head no when asked about pain or SOB. Musculoskeletal MS Remarks generalized pain Objective Data Data 09/23/16 09/24/16 19:00 07:00 Intake Total 739 ml 1538 ml Output Total 2795.0 ml 1030 ml Balance -2056.0 ml 508 ml IV Total 353 ml 653 ml Tube Feeding 386 ml 885 ml Output Urine Total 200 ml Stool Total 775 ml 775 ml Gastric Drainage Total 0 ml Tube Feeding Residual Discard 0 ml Drainage Total 20 ml 55 ml Hemodialysis 2000 ml Vital Signs Date Time Temp Pulse Resp B/P Pulse Ox O2 Delivery O2 Flow Rate FiO2 09/24/16 11:09 97 40 09/24/16 08:03 100 40 09/24/16 08:00 40 09/24/16 08:00 117 09/24/16 08:00 40 09/24/16 08:00 98.8 117 26 149/88 99 09/24/16 06:00 102 09/24/16 04:25 100 40 09/24/16 04:00 95 09/24/16 04:00 40 09/24/16 04:00 100.4 94 22 138/90 100 09/24/16 02:00 97 09/24/16 00:00 96 09/24/16 00:00 40 09/24/16 00:00 100.2 98 22 173/100 98 09/23/16 23:20 99 40 09/23/16 22:00 99 09/23/16 21:04 100 40 09/23/16 20:00 40 09/23/16 20:00 98 09/23/16 20:00 100.0 98 28 151/86 97 09/23/16 16:00 104 09/23/16 16:00 100.8 104 22 100/67 100 09/23/16 15:46 98 100 09/23/16 12:40 93 40 -: 09/24/16 0332 09/24/16 0952 Tubes & Lines: Vas-Cath Tubes & Lines Comment trach TLC, NG tube (R) SERGEI drain RLQ epigastric drain wound vac lower abdomen Drip Comment none Physical Exam General Appearance: Well Developed, No Acute Distress Throat Throat Exam: Oral Mucosa [place] & Moist Pulmonary Resp Exam: Breath Sounds Equal, No Distress, Crackles, Sputum, Diminished Breath Sounds Cardiology CV Exam: Regular, Normal Sinus Rhythm Gastrointestinal/Abdomen GI Exam: Distended Musculoskeletal MS Exam: Joints Intact, Normal Tone Integumentary Skin Exam: Warm, Dry Extremeties Extremities Exam: No Edema, Pedal Pulses Palpable Neurologic Neuro Exam: Alert, Awake, Moving All Extremities VTE Prophylaxis Device: SCDs Assessment/Plan Discussed Condition With: Relative Assessment Summary: VIRIDIANA/Acute Renal Failure, Acute Tubular Necrosis, Fluid/ Volume Overload, Hypertension Problem List: (1) Acute renal failure Plan: He has developed ATN due to sepsis. and has been on daily HD, still oliguric. vascath in left IJ, placed 09/18; flow was sluggish yesterday, may need replacement prior to next treatment potassium is normal Avoid nephrotoxic agents. Monitor drug levels and renally dose medications when appropriate Avoid IVF specifically LR. continue Calcium acetate for hyperphosphatemia, phosphorus has improved HD done yesterday, now K is elevated. Got Kayexalate , and NaHco3. Possible HD again in AM. Dr. Kuo will follow. (2) Diverticulitis Plan: persistent fever; s/p colon resection with complications surgery following. he has multiple drains and wound vac due to wound dehiscence pseudomonas in sputum and wound, it is highly resistant ID following, managing antibiotics. He is now on Aztreonam and Levaquin (which are renally dosed) Micafungin and Flagyl; also intermittent vancomycin; given tobramycin IV and via nebs meropenem has been stopped s/p trach placement 09/18 continue tube feeding Problem Qualifiers (1) Acute renal failure: Qualified Code: N17.0 - Acute renal failure with tubular necrosis Enmaunel Donis MD Sep 24, 2016 12:32
[2016-09-24] MEDS: LEVOFLOXACIN 250 MG PREMIX INJ 50 ML IV SCH (13:51)
--- NOTE | 2016-09-24 18:46 | HHI.PR ---
Subjective Remarks on BIPAP , SAT 94% NO DISTRESS Objective Vital Signs Date Time Temp Pulse Resp B/P Pulse Ox O2 Delivery O2 Flow Rate FiO2 09/24/16 16:19 98 40 09/24/16 16:00 97.3 110 32 163/94 98 09/24/16 16:00 110 09/24/16 12:00 114 09/24/16 12:00 98.8 114 23 164/89 99 09/24/16 11:09 97 40 09/24/16 11:09 40 09/24/16 08:03 100 40 09/24/16 08:00 40 09/24/16 08:00 117 09/24/16 08:00 40 09/24/16 08:00 98.8 117 26 149/88 99 09/24/16 06:00 102 09/24/16 04:25 100 40 09/24/16 04:00 95 09/24/16 04:00 40 09/24/16 04:00 100.4 94 22 138/90 100 09/24/16 02:00 97 09/24/16 00:00 96 09/24/16 00:00 40 09/24/16 00:00 100.2 98 22 173/100 98 09/23/16 23:20 99 40 09/23/16 22:00 99 09/23/16 21:04 100 40 09/23/16 20:00 40 09/23/16 20:00 98 09/23/16 20:00 100.0 98 28 151/86 97 I/O 09/23/16 09/23/16 09/23/16 09/24/16 09/24/16 09/24/16 07:00 15:00 23:00 07:00 15:00 23:00 Intake Total 870 ml 739 ml 628 ml 910 ml 800 ml Output Total 635 ml 2520.0 ml 675 ml 630 ml 1015 ml 400 ml Balance 235 ml -1781.0 ml -47 ml 280 ml -215 ml -400 ml IV Total 389 ml 353 ml 168 ml 485 ml 325 ml Tube Feeding 481 ml 386 ml 460 ml 425 ml 475 ml Output Urine Total 100 ml 100 ml 100 ml Stool Total 525 ml 500 ml 550 ml 500 ml 875 ml 400 ml Gastric Drainage Total 0 ml 0 ml Tube Feeding Residual Discard 0 ml 0 ml 0 ml 0 ml Drainage Total 10 ml 20 ml 25 ml 30 ml 140 ml Hemodialysis 2000 ml # Voids 1 Result Diagram: 09/24/16 0332 09/24/16 0952 Objective Remarks GENERAL: SKIN: Warm and dry. HEAD: Atraumatic. Normocephalic. EYES: Pupils equal and round. No scleral icterus. No injection or drainage. ENT: No nasal bleeding or discharge. Mucous membranes pink and moist. NECK: Trachea midline. No JVD. CARDIOVASCULAR: Regular rate and rhythm. RESPIRATORY: No accessory muscle use. Clear to auscultation. Breath sounds equal bilaterally. GASTROINTESTINAL: Abdomen soft, non-tender, nondistended. Hepatic and splenic margins not palpable. MUSCULOSKELETAL: Extremities without clubbing, cyanosis, or edema. No obvious deformities. NEUROLOGICAL: Awake and alert. No obvious cranial nerve deficits. Motor grossly within normal limits. Five out of 5 muscle strength in the arms and legs. Normal speech. PSYCHIATRIC: Appropriate mood and affect; insight and judgment normal. Assessment and Plan Assessment and Plan RESPIRATORY FAILUE SEPSIS COPD PLAN O2 NEEDED PULM TOILET DECREASE O2 TOLERATED Eusebio Kaplan MD Sep 24, 2016 18:46
[2016-09-24] MEDS ORDERED: RESP: ALBUTEROL 2.5 MG/3 ML NEB (SCH) NEB ONE (20:00)
[2016-09-24] MEDS ORDERED: CALCIUM GLUCONATE 10% 1 GM/10 ML VIAL SLOW IVP ONE (20:00)
[2016-09-24] MEDS: PHENYTOIN SUSP 100 MG/4 ML CUP PO SCH (20:48)
[2016-09-24] MEDS: hydrALAZINE HCL 20 MG/ML VIAL IV PUSH PRN (21:37)
[2016-09-25] VITALS (17 sets, daily range): BP systolic 103–125; BP diastolic 65–81; PULSE 116–145; RESP 18–24; TEMP 99–101.3; O2SAT 96–100
[2016-09-25] MEDS: GENTAMICIN SULFATE (DIALYSIS USE ONLY) 20 MG/2 ML VIAL IV PRN ×2 (00:43→13:47)
[2016-09-25] MEDS: SODIUM CHLORIDE 0.9% 10 ML VIAL IV FLUSH SCH ×3 (00:48→17:30)
[2016-09-25] MEDS: AZTREONAM INJ 500 MG in SODIUM CHLORIDE 0.9% INJ 100 ML IV SCH ×2 (00:48→14:08)
[2016-09-25] MEDS: metroNIDAZOLE 500 MG INJ 100 ML IV SCH ×4 (00:48→17:00)
[2016-09-25] MEDS: FLUCONAZOLE 200 MG PREMIX BAG 100 ML IV SCH (00:48)
[2016-09-25] MEDS: ACETAMINOPHEN 325 MG TAB PO PRN ×3 (00:49→09:43)
[2016-09-25] MEDS: HEPARIN SODIUM - SQ 10,000 UNITS/ML VIAL SQ SCH ×3 (01:45→18:00)
[2016-09-25 03:26] LABS: BASOPHIL # 0.1 TH/MM3 (0-0.2); BASOPHIL % 0.2 % (0.0-2.0); EOSINOPHIL # 0.2 TH/MM3 (0-0.4); EOSINOPHIL % 0.7 % (0.0-4.0); HEMATOCRIT 26.8 % (39.0-51.0); LYMPH % 9.9 % (9.0-44.0); LYMPHOCYTE # 2.5 TH/MM3 (1.0-4.8); MONO % 11.2 % (0.0-8.0); PLATELET COUNT 477 TH/MM3 (150-450); RED BLOOD COUNT 3.15 MIL/MM3 (4.50-5.90); RED CELL DISTRIBUTION WIDTH 15.9 % (11.6-17.2); WHITE BLOOD COUNT 25.6 TH/MM3 (4.0-11.0)
[2016-09-25 03:27] LABS: HEMO FLAGS AUTO DIFF
[2016-09-25] MEDS: RESP: ALBUTEROL 2.5 MG/3 ML NEB (SCH) INH ×5 (03:36→20:13)
[2016-09-25 04:00] LABS: BICARBONATE 28.3 MEQ/L (21.0-32.0)
[2016-09-25 04:01] LABS: POTASSIUM 5.8 MEQ/L (3.5-5.1)
[2016-09-25 04:25] LABS: BANDS 5 % (0-6); EOSINOPHILS 1 % (0-4); METAMYELOCYTES 2 % (0-1); NEUTROPHIL # MANUAL DIFF 20.7 TH/MM3 (1.8-7.7); POLYS (SEG NEUTROPHILS) 74 % (16-70); WBC DIFF SAMPLE 100
[2016-09-25 04:26] LABS: SCAN/DIFF FINAL DIFF MANUAL
[2016-09-25 04:27] LABS: PLATELET ESTIMATE SMEAR HIGH (NORMAL); PLATELET MORPHOLOGY NORMAL (NORMAL)
[2016-09-25] MEDS: LORazepam 2 MG/ML VIAL IV PUSH PRN ×2 (05:18→18:55)
[2016-09-25] MEDS: ARTIFICIAL TEARS OPTH SOLN 15 ML BTL EACH EYE SCH ×3 (05:18→20:49)
[2016-09-25] MEDS: cloNIDine HCL 0.1 MG TAB PO SCH ×3 (05:18→20:48)
[2016-09-25] MEDS ORDERED: RESP: ALBUTEROL 2.5 MG/3 ML NEB (SCH) NEB ONE (05:30)
[2016-09-25] MEDS ORDERED: CALCIUM GLUCONATE 10% 1 GM/10 ML VIAL SLOW IVP ONE (05:30)
[2016-09-25] MEDS ORDERED: INSULIN HUMAN REGULAR 1,000 UNITS/10 ML VIAL IV PUSH ONE (05:30)
[2016-09-25] MEDS ORDERED: DEXTROSE 50% IN WATER 50 ML VIAL(D50) IV PUSH ONE (05:30)
[2016-09-25] MEDS ORDERED: SODIUM POLYSTYRENE SULFONATE SUSP 15 GM/60 ML CUP PO ONE (05:30)
[2016-09-25] MEDS ORDERED: SODIUM BICARBONATE 8.4% SOLN 50 MEQ/50 ML VIAL SLOW IVP ONE (05:30)
[2016-09-25] MEDS: INSULIN NovoLIN REGULAR SUPPLEMENTAL SCALE SQ SCH ×3 (06:30→18:00)
[2016-09-25] MEDS: CHLORHEXIDINE 0.12% (ORAL KIT) 15 ML CUP MT SCH ×2 (08:00→20:00)
[2016-09-25] MEDS: RESP: BUDESONIDE 0.5 MG/2 ML NEB NEB SCH ×2 (08:15→20:13)
[2016-09-25] MEDS: RESP: ALBUTEROL 2.5 MG/IPRATROPIUM 0.5 MG NEB (PRN) NEB (08:15)
[2016-09-25] MEDS: RESP: TOBRAMYCIN SULFATE 300 MG/5 ML NEB NEB SCH ×2 (08:19→20:13)
[2016-09-25] MEDS: PANTOPRAZOLE SODIUM 40 MG VIAL IVP SCH (09:00)
[2016-09-25] MEDS: SODIUM CHLORIDE 0.9% FLUSH 5 ML FLUSH IVF SCH ×2 (09:00→20:48)
[2016-09-25] MEDS: MUPIROCIN 2% OINT 1 APPLIC/GM SYR EACH NARE SCH ×2 (09:00→20:48)
--- NOTE | 2016-09-25 09:08 | HHI.CCPN ---
Subjective Remarks/Hospital Course 08/25: Patient is a 58-year-old male with past medical history significant COPD who, on 08/18/16, underwent Laparoscopic robotic extensive lysis of adhesions, low anterior resection and small bowel resection. Apparently he was brought in by Dr. Moffett for Diverticulitis. Patient has a history of hypertension, COPD, and continues to smoke one pack of cigarettes a day. Postoperatively patient became progressively short of breath. Pulmonary was consulted on 08/21/16 as the patient was becoming more hypoxemic requiring BiPAP. CT of the chest PE protocol did not show any pulmonary embolism. Patient was placed on breathing treatments and IV Solu-Medrol 40 mg every [address] Renteria. Today a.m. patient was on 100% nonrebreather. Patient was diagnosed with an anastomotic leak today and was taken back to the OR by Dr. Moffett. He underwent exploratory laparotomy, I&D and loop ileostomy today. Postop patient remained hypoxemic requiring 70% oxygen, and hence was left intubated and critical care medicine was consulted. Dr. Arce evaluated the patient in ICU. He remained hypoxemic, FiO2 70%. Chest x-ray shows bibasilar mild infiltrates. On sedation lightening patient became very hypertensive, not following commands probably secondary to residual NM blockade received while being transported to ICU. Patient on receiving vancomycin Levaquin and Flagyl per Dr. Moffett. Dr. Arce added cefepime to cover for Pseudomonas. Holding Solu-Medrol due to anastomotic leak. 08/26: Remains sedated, orally intubated on mechanical ventilation. Went into anuric renal failure yesterday which did not respond to fluid boluses and diuretics hence was started on hemodialysis after placement of right IJ Vas- Cath. Currently sedated, arousable, remains orally intubated on mechanical ventilation. Blood pressure borderline last evening following dialysis for which she was started on low-dose vasopressin 0.03 units per minute and Levophed which is currently at 1 jose per minute. Started on TPN last night following which he has been hyperglycemic. 08/27: Sedated, arousable, orally intubated on mechanical ventilation. Spiking fevers overnight. Off Levophed, transiently off vasopressin. Remains on TPN. 08/28: Remains sedated, arousable, orally intubated on mechanical ventilation. On low-dose vasopressin. TPN continues. Made about 500 cc of urine in the last 24 hours. 08/29: In sedated, arousable, orally intubated on mechanical ventilation. Remains on TPN. Dirty drainage from left-sided SERGEI drain noted overnight. Dr. Moffett obtaining CT abdomen pelvis with oral contrast and ID consulted. 08/30: CURRENT TEMPERATURE 99. Status post 4 L hemodialysis today. No current change in therapy. White blood cell count remained stable. Off vasopressors. Arousable to voice. Versed has been discontinued. We'll attempt CPAP trials again today. 08/31: MAXIMUM TEMPERATURE 100.4. Currently 100.1. Currently resting in bed in no acute distress. Continues with scant drainage from bilateral JPs. We'll attempt CPAP trial again today. Positive stool from ostomy bag 09/01: Tmax 99.8. Currently 99.3. Placement of the new right IJ vas catheter today. Plan for IR to possibly drain right lower quadrant fluid collection. Arousable and moves all 4 extremity spontaneously. 09/02: Currently afebrile. Noted placement of iron drain with accordion drain. Growing Pseudomonas. Lasted only 2 hours on CPAP trials today. 09/03: Tolerated SBT for only 30 mins and required PS 20. Not ready to extubate. 09/04: Tachypnea related to anxiety? or metabolic acidosis. Will check VBG. Not tolerating SBT. Anemia. Transfuse during HD. 09/05: Remains very tachypneic on SBTs. Unable to extubate. 09/06: Leukocytosis and bandemia. Acts like ongoing sepsis. 09/07: No significant changes. Afebrile. Tolerating TFs as recommended by CRS. Will transition from TPN to enteral feeds now. 09/08: Bandemia persists. Tolerating full TFs. D/c'd TPN. Glucose control acceptable. 09/09: Tolerating longer CPAP/PS trials. 09/10: Stronger respiratory effort. Try to extubate today. 09/11: Stable hemodynamics, marginal respiratory function. 09/11 update 1800 hrs: Patient developed sudden hyperventilation to 55-60/min, hypertensive urgency to 220/120s, unresponsive state, started versed 10 mg/hr after 10 mg iv. Load with cerebyx, get head CT, EEG in a.m. 09/12: BP and pulse rate control improved with sedation. Etiology unclear. Suspected intracranial process but CT head normal. Possibly seizures. EEG pending this morning. WBC with bandemia persists. 09/13: CURRENT TEMPERATURE 99. Heart rate and blood pressure control. Noted T changes last night noted a potassium 8.2. Noted hemodialysis catheter placed by overnight eeg technician in right femoral vein and hemodialysis currently undergoing. Plan for drainage of epigastric fluid collection by IR today. 09/14: Currently afebrile. Status post prior drainage of epigastric fluid area. Currently 60 ccwhite pus accordian drain. Status post bronchoscopy yesterday. 09/15 - intubation day #22. Family waiting another 24 hours to consider tracheostomy. He is not able to be extubated. Currently undergoing hemodialysis. Likely dialysis dependent. 09/16: Tmax 100.2. Blood pressure slowly trending downward. He transfuse PRBCs and albumin bolus prior to hemodialysis today. Intubation day #23. Family currently agreeable to tracheostomy but I'm unable to perform until Sunday. Positive BM. 09/17: Tmax 101. Intubation day #24. Tolerating tube feeding. Currently on Versed and fentanyl drips. 09/18: Remains sedated, orally intubated on mechanical ventilation. Scheduled for percutaneous tracheostomy today. Was dialyzed yesterday. Percutaneous drains [address] Ileostomy with good output. Wound VAC in place over anterior abdominal incision site. 09/19: Remains sedated, on mechanical ventilation via tracheostomy. Patient was noted to have some blood oozing from around tracheostomy site this morning as well as around Vas-Cath. Pressure dressing to be applied around Vas-Cath and packing around tracheostomy site and Dr. Howard informed. 09/20: Remains on fentanyl. On mechanical ventilation via tracheostomy. Continues to have fevers. No further bleeding from tracheostomy site or Vas- Cath site. 09/21: Remains on mechanical ventilation via tracheostomy. Resuming subcutaneous heparin today. No further bleeding from Vas-Cath or tracheostomy site. 09/22: Remains on mechanical ventilation, daily C Pap trials. Awake and alert this morning, following commands. 09/23: Tmax 100.2. Currently afebrile. Some oozing from hemodialysis catheter/ left IJ today. Plan for -2 L. Currently on mechanical ventilation while on hemodialysis. Awake and alert and following commands. 09/24: MAXIMUM TEMPERATURE 100.4. Currently afebrile. Noted hyperkalemia this am. Protocol initiated. Will recheck potassium in 3 hours. Awake and alert and following commands. Subjective 09/25: Tmax 101.1. Positive BM overnight likely secondary to Kayexalate provided for hyperkalemia. Received hemodialysis and likely will need to receive again today due to hypercatabolic state. Arousable on the ventilator and follows commands. Objective Vital Signs Date Time Temp Pulse Resp B/P Pulse Ox O2 Delivery O2 Flow Rate FiO2 09/25/16 08:23 99 40 09/25/16 08:20 Ventilator 09/25/16 06:00 124 09/25/16 04:00 101.0 24 120/70 Intake and Output 09/24/16 09/24/16 09/25/16 08:00 16:00 00:00 Intake Total 910 ml 800 ml 625 ml Output Total 630.0 ml 1015.0 ml 1235 ml Balance 280.0 ml -215.0 ml -610 ml Result Diagram: 09/25/16 0315 09/25/16 0315 Other Results Microbiology Date/Time Procedure Status Source Growth 09/20/16 14:00 Gram Stain - Final Complete Wound Drainage 09/20/16 14:00 Wound Culture - Final Complete Iram Parapsilosis Iram Albicans Imaging Last Impressions Chest X-Ray 09/24/16 0600 Signed Impressions: Service Date/Time: Saturday, September 24, 2016 03:23 - CONCLUSION: Stable chest x-ray with underinflation and atelectasis at the bases and stable mild airspace opacity at the right base. Claude Carrasco MD Abdomen/Pelvis CT 09/23/16 0000 Signed Impressions: Service Date/Time: Friday, September 23, 2016 15:22 - CONCLUSION: 1. Reduction in size of the hypodense fluid collection in the hepatogastric space with no residual hypodensity seen.. Stable position to be indwelling drainage catheter. 2. Decreasing size lower lung infiltrates. 3. Interval removal of right lower quadrant drain and interval development of a small to moderate size amount of fluid in the cul-de-sac. Evelio Boyd MD Upper Extremity Ultrasound 09/17/16 0000 Signed Impressions: Service Date/Time: Saturday, September 17, 2016 16:48 - CONCLUSION: 1. Positive nonocclusive deep venous thrombosis right internal jugular vein. 2. Nonocclusive superficial thrombosis in the left cephalic vein. Miki Banerjee MD Lower Extremity Ultrasound 09/17/16 0000 Signed Impressions: Service Date/Time: Saturday, September 17, 2016 17:33 - CONCLUSION: Normal examination. Miki Banerjee MD Head CT 09/17/16 0000 Signed Impressions: Service Date/Time: Saturday, September 17, 2016 20:47 - CONCLUSION: 1. No acute intracranial abnormalities. Miki Banerjee MD Chest CT 09/17/16 0000 Signed Impressions: Service Date/Time: Saturday, September 17, 2016 20:46 - CONCLUSION: 1. Multifocal airspace consolidation in the lungs, right greater than left most characteristic of bronchopneumonia. There is underlying mild to moderate emphysema. Small effusions. Miki Banerjee MD Abscess Drainage CT 09/13/16 0000 Signed Impressions: Service Date/Time: Tuesday, September 13, 2016 14:30 - CONCLUSION: Uncomplicated CT guided drainage. Carlo Cortes MD Retroperitoneal Abscess Drainage 09/01/16 0600 Signed Impressions: Service Date/Time: Thursday, September 01, 2016 13:05 - CONCLUSION: Uncomplicated CT guided drainage of a right lower quadrant fluid collection. Approximately 75 cc of fecal-like brown material was aspirated. The air and fluid collection may communicate with the inferior aspect of the midline wound on the anterior abdominal wall. Claude Carrasco MD Abdomen X-Ray 08/24/16 0000 Signed Impressions: Service Date/Time: August 07:44 - CONCLUSION: Gaseous distention of multiple bowel loops possible ileus. Jony Miller MD Enema w/Water Soluble 08/23/16 0000 Signed Impressions: Service Date/Time: Tuesday, August 23, 2016 10:12 - CONCLUSION: Anastomosis appears patent without extravasation. Aditya Rocha MD FACR CT Angiography 08/21/16 0000 Signed Impressions: Service Date/Time: Sunday, August 21, 2016 14:05 - CONCLUSION: 1. There is no evidence for central pulmonary emboli. 2. Minimal subcutaneous air as well as free intraperitoneal air. Aditya Rocha MD FACR Objective Remarks GENERAL: 56-year-old male, critically ill, currently on mechanical ventilation via tracheostomy SKIN: Warm. Dry. No rash HEAD: Atraumatic. Normocephalic. ENT: mucosa moist NECK: Tracheostomy in place. LIJ Vas-Cath in place without bleeding CARDIOVASCULAR: Tachy, RR. S1, S2. No S4. No m/c/g/r. RESPIRATORY: On mechanical ventilation, scattered rhonchi appreciated in all lung nesbitt, no wheezing. GASTROINTESTINAL: Abdomen non distended. Midline incision clean and intact. BS active. Ostomy pink with brown stool. 1 accordion drain, [address]. MUSCULOSKELETAL: Extremities with trace positive bilateral upper and lower extremity edema, well perfused. NEUROLOGICAL:Pupils equal round and reactive 2 mm bilaterally. Awake and alert and interactive. Moves all 4 extremities spontaneously. Date of Insertion: Aug 31, 2016 Date of Removal: Sep 12, 2016 Side: Right A/P Assessment and Plan NEURO/PSYCH: History of anxiety Acute toxic metabolic encephalopathymultifactorial Acetaminophen for fever Haldol 1 mg every 4 hours when necessary Ativan 0.5 mg every one hour when necessary agitation Morphine sulfate 3 milligrams IV every 3 hours when necessary pain -Daily sedation vacation, follow neuro status. -Head CT 09/11 no acute intracranial findings -EEG 09/12 revealed mild to moderate encephalopathy. No epileptiform activity. Currently on Cerebyx 300 mg liquid at night. Level 5.7 on 09/18. Recheck in a.m 09/26 RESP: Acute hypoxemic respiratory failure COPD exacerbation Probable healthcare associated pneumonia -Continue ACV 22/600 0.75/5/40 Ventilator bundle -Albuterol nebs every 4 hours scheduled and when necessary duo nebs, Symbicort 2 puffs every 12 was discontinued while in ventilator. Continue Pulmicort 0.5/2 twice a day -Broad-spectrum antibiotics as below -Continue daily C Pap trials. Dr. Renteria/Pulmonary following Increase SBTs length as able. s/p tracheostomy 09/18 CV: Hypotension secondary to septic shock resolved History of hypertension -Received multiple fluid boluses on 08/25. IV fluids discontinued subsequently in view of anuria necessitating hemodialysis. Off all vasopressors -Attempt negative fluid balance with hemodialysis. Currently on clonidine 0.1 3 times a day, Norvasc 5 mg twice a day and Coreg 3.125 twice a day. Labetalol prn GI/ Nutrition: Anastomotic leak status post exploratory laparotomy, I&D, loop ileostomy 08/24/16 s/p Laparoscopic robotic extensive ANNA MARIE, robotic LAR and small bowel resection Laparoscopic robotic ANNA MARIE, robotic LAR and small bowel resection with anastomotic leak History of diverticulitis -Status post exploratory laparotomy, I&D, loop ileostomy 08/24/16 -Postoperative management per Dr. Moffett. Broad-spectrum antibiotics as below. positive ostomy output CT abdomen pelvis with oral contrast 08/29 reveal small bowel ileus. Serous fluid collection likely postoperative changes. - On Reglan to improve GI motility On Glucerna 1.5 goal 60 cc an hour. Protonix for GI prophylaxis Wound VAC with purulent drainage 150 cc. Accordion to epigastric drain with purulent drainage [address] abdomen/pelvis 09/23 revealed decreased fluid in the hepatogastric region. Removal of interval drains. Small to moderate fluid in the cul-de-sac. Renal/: Acute kidney injury History BPH Status post bilateral ureteral stents placed by Dr. Fraser 08/18 -Monitor renal function closely. Mg catheter. -IV fluids discontinued in view of anuric renal failure and hyperkalemia necessitating hemodialysis. Nephrology consulted and following. -Attempt maintaining even to slightly negative fluid balance. New right IJ hemodialysis catheter placed 09/01 -> D/C 09/13. New right femoral hemodialysis catheter placed 09/13 -> D/C 09/19 New LIJ vascath placed 09/18 ID: Anastomotic leak Sepsis Probable HCAP -IV vancomycin, Flagyl and Levaquin per Dr. Moffett. Levaquin discontinued . Zosyn started 09/02- 09/16. Flagyl and micafungin per ID added. Merrem added 09/15. Micafungin discontinued 09/23 Current regimen is Levaquin 250 IV every 48 hours, Flagyl 500 mg IV every 6 hours, Diflucan 200 mg IV 24 hours and aztreonam 500 mg IV every 12 hours. Also tobramycin aerosols twice a day and pulse dose of vancomycin. Pertinent culture 09/20 - wound - Pseudomonas and Iram Alb and Paropsilosis 09/17 - sputum - Pseudomonas 09/17 - blood cultures 2- no growth 09/13 - bronchial -Pseudomonas 09.13 - abdomen abscess -Pseudomonas/yeast 09/01: Abdominal wound - Pseudomonas, enterococcus, Iram 08/31 - line culture Pseudomonas/coag negative staph 08/31 - blood cultures 2 -no growth 08/31 - sputum - pending 08/29 - wound - Pseudomonas, group D enterococcus, C. albicans and yeast 08/25 blood cultures - no growth 08/25 sputum - Serratia/Klebsiella/Pseudomonas 08/24 - wound - no growth HEME: Leukocytosis Normocytic anemia Thrombocytosis RIJ DVT (nonocclusive) Left cephalic superficial thrombus -Monitor CBC, CMP, coags - On anticoagulation with heparin (for right IJ nonocclusive thrombus/ left cephalic vein) which was put on hold since 09/11 for tracheostomy. Started subcutaneous heparin on 09/21 and if no bleeding will consider advancing to full anticoagulation. ENDO: -Sliding-scale insulin with Accu-Cheks every 6 hours for glycemic control. Levemir 20 units twice a day currently on hold FEN: Hyperphosphatemia Hyperkalemia Continue PhosLo 1334 mg 3 times a day for hyperphosphatemia. Hemodialysis per renal. Receiving D50/insulin/bicarbonate/Kayexalate. Recheck in 3 hours. Likely will need hemodialysis again today PROPH: -Bilateral lower extremity SCDs. Heparin gtt for RIJ DVT (held 09/18 for scheduled trach). Currently on heparin subcutaneous Protonix for GI prophylaxis LINES: -Left subclavian central line placed in the OR 08/24 - 08/31. Right subclavian central line placed 08/31 - 09/11 - RIJ dialysis catheter 08/25 -08/31. New right IJ hemodialysis catheter 09/01 - - Right femoral hemodialysis catheter 09/13 Critical Care: The total critical care time was 35 minutes. Time to perform other separately billable procedures was not included in the critical care time. Connor Lebron MD Sep 25, 2016 09:08
[2016-09-25] MEDS: CALCIUM ACETATE 667 MG CAP PO SCH ×3 (09:42→18:00)
[2016-09-25] MEDS: LACTOBACILLUS ACIDOPHILUS TAB NG SCH ×3 (09:43→18:00)
[2016-09-25] MEDS: CARVEDILOL 3.125 MG TAB PO SCH ×2 (09:43→20:48)
[2016-09-25] MEDS: amLODIPine BESYLATE 5 MG TAB PO SCH ×2 (09:43→20:48)
--- NOTE | 2016-09-25 10:27 | HHI.NPPN ---
Subjective General Problems: Edema Renal Failure: Acute Interval History Febrile, tachycardic. He is awake and alert. (Fransisca Canela) Review of Systems General Constitutional: Fever General Remarks nods head no when asked about pain or SOB. (Fransisca Canela) Musculoskeletal MS Remarks generalized pain (Fransisca Canela) Objective Data Data 09/24/16 09/25/16 19:00 07:00 Intake Total 800 ml 1443 ml Output Total 1415.0 ml 3295 ml Balance -615.0 ml -1852 ml IV Total 325 ml 425 ml Tube Feeding 475 ml 918 ml Other 100 ml Output Urine Total 50 ml Stool Total 1275 ml 1225 ml Gastric Drainage Total 0 ml Tube Feeding Residual Discard 0 ml Drainage Total 140 ml 20 ml Hemodialysis 2000 ml # Voids 1 Vital Signs Date Time Temp Pulse Resp B/P Pulse Ox O2 Delivery O2 Flow Rate FiO2 09/25/16 08:23 99 40 09/25/16 08:20 100 Ventilator 40 09/25/16 06:00 124 09/25/16 04:22 100 40 09/25/16 04:00 130 09/25/16 04:00 40 09/25/16 04:00 101.0 130 24 120/70 97 09/25/16 02:00 135 09/25/16 00:00 40 09/25/16 00:00 100.9 145 20 112/66 98 09/25/16 00:00 142 09/24/16 23:58 96 40 09/24/16 22:00 112 09/24/16 20:00 40 09/24/16 20:00 115 09/24/16 20:00 100.0 107 22 167/104 97 09/24/16 19:53 96 40 09/24/16 16:19 98 40 09/24/16 16:00 97.3 110 32 163/94 98 09/24/16 16:00 110 09/24/16 12:00 114 09/24/16 12:00 98.8 114 23 164/89 99 09/24/16 11:09 97 40 09/24/16 11:09 40 (Fransisca Canela) -: 09/25/16 0315 09/25/16 0822 Imaging Last 72 hours Impressions Chest X-Ray 09/24/16 0600 Signed Impressions: Service Date/Time: Saturday, September 24, 2016 03:23 - CONCLUSION: Stable chest x-ray with underinflation and atelectasis at the bases and stable mild airspace opacity at the right base. Claude Carrasco MD Abdomen/Pelvis CT 09/23/16 0000 Signed Impressions: Service Date/Time: Friday, September 23, 2016 15:22 - CONCLUSION: 1. Reduction in size of the hypodense fluid collection in the hepatogastric space with no residual hypodensity seen.. Stable position to be indwelling drainage catheter. 2. Decreasing size lower lung infiltrates. 3. Interval removal of right lower quadrant drain and interval development of a small to moderate size amount of fluid in the cul-de-sac. Evelio Boyd MD Tubes & Lines: Vas-Cath Tubes & Lines Comment trach TLC, NG tube (R) SERGEI drain RLQ epigastric drain wound vac lower abdomen Drip Comment none (Fransisca Canela) Physical Exam General Appearance: Well Developed, No Acute Distress Appearance Remarks awake on ventilator via trach, nods yes/no to questions (Fransisca Canela ) Throat Throat Exam: Oral Mucosa [place] & Moist (Fransisca Canela) Neck Neck Remarks trach (Fransisca Canela) Pulmonary Resp Exam: Breath Sounds Equal, No Distress, Crackles, Sputum, Diminished Breath Sounds Resp Remarks vented, increased secretions (Fransisca Canela) Cardiology CV Exam: Regular, Normal Sinus Rhythm (Fransisca Canela) Gastrointestinal/Abdomen GI Exam: Distended GI Remarks distended, not as firm; colostomy with pink/red stoma stool in colostomy bag (Fransisca Canela) Musculoskeletal MS Exam: Joints Intact, Atrophy, Unable to Ambulate (Fransisca Canela) Integumentary Skin Exam: Warm, Dry Skin Remarks below umbilicus, midabdominal wound has dehisced; wound vac left side of incision (Fransisca Canela) Extremeties Extremities Exam: No Edema, Pedal Pulses Palpable (Fransisca CanelaP) Neurologic Neuro Exam: Alert, Awake, Moving All Extremities (Fransisca Canela) VTE Prophylaxis Device: SCDs (Fransisca Canela) Assessment/Plan Discussed Condition With: Patient Assessment Summary: VIRIDIANA/Acute Renal Failure, Acute Tubular Necrosis, Fluid/ Volume Overload, Hypertension Problem List: (1) Acute renal failure Plan: He has developed ATN due to sepsis. remains Oligoanuric but has began to make some urine Hyperkalemic overnight, dialyzed Sunday on 1K repeat K better vascath in left IJ, placed 09/18; flow is sluggish, to have left femoral catheter placed HD again today Avoid nephrotoxic agents. Monitor drug levels and renally dose medications when appropriate Avoid IVF specifically LR. continue Calcium acetate for hyperphosphatemia, phosphorus has normalized (2) Diverticulitis Plan: persistent fever; s/p colon resection with complications surgery following. he has multiple drains and wound vac due to wound dehiscence pseudomonas in sputum and wound, it is highly resistant ID following, managing antibiotics. He is now on Aztreonam and Levaquin (which are renally dosed) and Flagyl; also intermittent vancomycin; given tobramycin IV and via nebs micafungin has been stopped s/p trach placement 09/18 continue tube feeding (Fransisca Canela) Problem List: (1) Acute renal failure Plan: He has developed ATN due to sepsis. remains Oligoanuric but has began to make some urine Hyperkalemic overnight, dialyzed Sunday on 1K repeat K better vascath in left IJ, placed 09/18; flow is sluggish, to have left femoral catheter placed HD again today Avoid nephrotoxic agents. Monitor drug levels and renally dose medications when appropriate Avoid IVF specifically LR. continue Calcium acetate for hyperphosphatemia, phosphorus has normalized (2) Diverticulitis Plan: persistent fever; s/p colon resection with complications surgery following. he has multiple drains and wound vac due to wound dehiscence pseudomonas in sputum and wound, it is highly resistant ID following, managing antibiotics. He is now on Aztreonam and Levaquin (which are renally dosed) and Flagyl; also intermittent vancomycin; Tobramycin nebulizer. micafungin has been stopped s/p trach placement 09/18 continue tube feeding Plan patient was seen and examined. Needs a new vascath, dialysis after new VasCath. He is oliguric. (Tito Kuo MD) Problem Qualifiers (1) Acute renal failure: Qualified Code: N17.0 - Acute renal failure with tubular necrosis Fransisca Canela [facility] Sep 25, 2016 10:27 Tito Kuo MD Sep 25, 2016 14:04
--- NOTE | 2016-09-25 10:43 | HHI.PR ---
Subjective Subjective Notes on Vent via trach Eyes closed Objective Vitals/I&O Vital Signs Date Time Temp Pulse Resp B/P Pulse Ox O2 Delivery O2 Flow Rate FiO2 09/25/16 08:23 99 40 09/25/16 08:20 Ventilator 09/25/16 06:00 124 09/25/16 04:00 101.0 24 120/70 Labs Laboratory Tests Test 09/24/16 09/25/16 09/25/16 09/25/16 18:58 00:13 03:15 08:22 Potassium Level 6.2 4.0 5.8 5.1 White Blood Count 25.6 Red Blood Count 3.15 Hemoglobin 8.8 Hematocrit 26.8 Mean Corpuscular Volume 85.0 Mean Corpuscular Hemoglobin 28.0 Mean Corpuscular Hemoglobin 33.0 Concent Red Cell Distribution Width 15.9 Platelet Count 477 Mean Platelet Volume 8.2 Neutrophils (%) (Auto) 78.0 Lymphocytes (%) (Auto) 9.9 Monocytes (%) (Auto) 11.2 Eosinophils (%) (Auto) 0.7 Basophils (%) (Auto) 0.2 Neutrophils # (Auto) 20.0 Lymphocytes # (Auto) 2.5 Monocytes # (Auto) 2.9 Eosinophils # (Auto) 0.2 Basophils # (Auto) 0.1 CBC Comment AUTO DIFF Differential Total Cells 100 Counted Neutrophils % (Manual) 74 Band Neutrophils % 5 Lymphocytes % 8 Monocytes % 10 Eosinophils % 1 Neutrophils # (Manual) 20.7 Metamyelocytes 2 Differential Comment FINAL DIFF MANUAL Platelet Estimate HIGH Platelet Morphology Comment NORMAL Red Cell Morphology Comment NORMAL Sodium Level 140 Chloride Level 100 Carbon Dioxide Level 28.3 Anion Gap 12 Blood Urea Nitrogen 68 Creatinine 4.80 Estimat Glomerular Filtration 13 Rate Random Glucose 133 Calcium Level 9.8 Phosphorus Level 4.5 Albumin 2.6 Date/Time Procedure Status Source Growth 09/20/16 14:00 Gram Stain - Final Complete Wound Drainage 09/20/16 14:00 Wound Culture - Final Complete Iram Parapsilosis Iram Albicans Cardiovascular: Regular Lungs: Clear Abdomen: Other (Wound vac in place; ileostomy in place with liquid stool ) Narrative Exam trach with no bloody drainage A/P Assessment and Plan 56 year old male s/p robotic assisted lap sigmoid resection with VDRF -s/p trach placement -Continue to monitor for bleeding -No reported bleeding from trach site over the weekend -GS will sign off; please call with questions Attending Statement no acute issues patient seen at bedside s/p trach no bleeding will s/o Attestation The exam, history, and the medical decision-making described in the above note were completed with the assistance of the mid-level provider. I reviewed and agree with the findings presented. I attest that I had a [id number] encounter with the patient on the same day, and personally performed and documented my assessment and findings in the medical record. Ashly Smiley Sep 25, 2016 10:43 Brayden Howard MD Oct 07, 2016 21:13
[2016-09-25] MEDS ORDERED: MIDAZOLAM HCL 5 MG/ML VIAL (1 ML) ONE (11:41)
[2016-09-25] MEDS ORDERED: MIDAZOLAM HCL 5 MG/5 ML VIAL IV PUSH ONE (11:45)
[2016-09-25] MEDS ORDERED: fentaNYL CITRATE 250 MCG/5 ML AMP IV PUSH ONE (11:45)
--- NOTE | 2016-09-25 12:50 | PD.PROCEDR ---
Central Line Procedure REASON FOR PROCEDURE Central venous access PROCEDURE PERFORMED Central line placement: Left subclavian hemodialysis catheter CONSENT Informed consent for procedure was obtained and time out performed. The risks and benefits of the procedure were discussed to include but limited to bleeding , clot formation, infection, and even . ANESTHESIA Local injection of 1% Lidocaine DESCRIPTION OF THE PROCEDURE The patient was placed in supine, mild Trendelenburg position. The area was exposed and cleansed with ChloraPrep, times two. Large sterile drape was used to cover the patient, with the site exposed, under sterile conditions including cap, face mask, sterile gown, and sterile gloves. On single attempt, the introducer needle was inserted with negative pressure in syringe and venous flash was obtained. The guide wire was then advanced without any restriction and the needle was removed. The dilator was used without any complications. Using Seldinger technique the 24 CM 17F two lumen HD catheter was advanced over the guide wire to a depth of 21 centimeters. The guide wire was removed. All ports were aspirated with dark venous blood return and flushed easily with sterile saline. All ports were capped. Antibiotic disc was placed around central line at puncture site. The central line was secured to the skin with two interrupted 2.0 silk sutures. The area was bandaged with sterile see- through central line bandage. COMPLICATIONS: No apparent complications ESTIMATED BLOOD LOSS: Less than 1 cc. Jeferson Arce MD Sep 25, 2016 12:50
[2016-09-25] MEDS ORDERED: HEPARIN SODIUM - IV 2,000 UNITS/2 ML VIAL IV FLUSH PRN (13:00)
--- NOTE | 2016-09-25 13:42 | RADRPT ---
EXAM DATE/TIME: 09/25/2016 13:03 [facility] COMPARISON: CHEST SINGLE AP, September 24, 2016, 3:23. INDICATIONS : Central line placement. MEDICAL HISTORY : Hypertension. Chronic obstructive pulmonary disease. Diabetes mellitus type II. Asthma. Smoker. SURGICAL HISTORY : Tracheostomy. ENCOUNTER: Subsequent ACUITY: 2 weeks PAIN SCORE: Non-responsive. LOCATION: Bilateral chest FINDINGS: Tracheostomy is present good position. Nasogastric tube descends into the stomach. Left subclavian di alysis catheter is present with tip overlying SVC. There's been removal of a left jugular dialysis ca theter. There is mild bibasilar and bilateral perihilar parenchymal opacity similar to prior. Cardiac contours are grossly stable. CONCLUSION: Satisfactory dialysis catheter placement. No pneumothorax. Claude Rosario MD on September 25, 2016 at 13:39 Board Certified Radiologist. This report was verified electronically.
[2016-09-25] MEDS: HEPARIN SODIUM - IV 10,000 UNITS/10 ML VIAL PRN (13:46)
[2016-09-25] MEDS: SODIUM CHLOR 0.9% 1000 ML INJ 1,000 ML IV PRN (13:46)
--- NOTE | 2016-09-25 14:41 | HHI.PR ---
Subjective Remarks POD#38 s/p robotic LAR/SBR/ANNA MARIE, POD#30 s/p ex lap, washout, diverting loop ileostomy awakens easily Objective Vital Signs Date Time Temp Pulse Resp B/P Pulse Ox O2 Delivery O2 Flow Rate FiO2 09/25/16 08:23 99 40 09/25/16 08:20 100 Ventilator 40 09/25/16 08:00 124 09/25/16 08:00 40 09/25/16 06:00 124 09/25/16 04:22 100 40 09/25/16 04:00 130 09/25/16 04:00 40 09/25/16 04:00 101.0 130 24 120/70 97 09/25/16 02:00 135 09/25/16 00:00 40 09/25/16 00:00 100.9 145 20 112/66 98 09/25/16 00:00 142 09/24/16 23:58 96 40 09/24/16 22:00 112 09/24/16 20:00 40 09/24/16 20:00 115 09/24/16 20:00 100.0 107 22 167/104 97 09/24/16 19:53 96 40 09/24/16 16:19 98 40 09/24/16 16:00 97.3 110 32 163/94 98 09/24/16 16:00 110 I/O 09/24/16 09/24/16 09/24/16 09/25/16 09/25/16 09/25/16 07:00 15:00 23:00 07:00 15:00 23:00 Intake Total 910 ml 800 ml 625 ml 818 ml Output Total 630 ml 1015 ml 1235 ml 2460 ml Balance 280 ml -215 ml -610 ml -1642 ml IV Total 485 ml 325 ml 153 ml 272 ml Tube Feeding 425 ml 475 ml 472 ml 446 ml Other 100 ml Output Urine Total 100 ml 50 ml 0 ml Stool Total 500 ml 875 ml 1175 ml 450 ml Gastric Drainage Total 0 ml Tube Feeding Residual Discard 0 ml 0 ml Drainage Total 30 ml 140 ml 10 ml 10 ml Hemodialysis 2000 ml # Voids 1 Result Diagram: 09/25/16 0315 09/25/16 0822 Objective Remarks Abdomen soft Wounds clean Epigastric drain with serous drainage only Assessment and Plan Assessment and Plan CV - BP stable RESP -comfortable KIDNEY - still anuric,continue HD FEN - tolerating TF's ID - WBC up again, CXR improved, CT SCan improved, Line changed Elana Moffett MD Sep 25, 2016 14:41
--- NOTE | 2016-09-25 17:54 | HHI.PR ---
Subjective Remarks YOAA male with robotic surgery,COPD exac Underwent exp lap,I&d and loop iliostomy placement Remains on vent Had Trach no fever Alert,awake, follows commands Undergoing HD On ACV Objective Vital Signs Vital Signs Date Time Temp Pulse Resp B/P Pulse Ox O2 Delivery O2 Flow Rate FiO2 09/25/16 16:54 100 40 09/25/16 16:00 40 09/25/16 16:00 100.0 138 21 103/71 99 09/25/16 16:00 138 09/25/16 14:55 18 09/25/16 14:55 18 09/25/16 14:00 125 09/25/16 12:00 99.0 122 18 125/77 96 09/25/16 12:00 40 09/25/16 12:00 122 09/25/16 10:00 125 09/25/16 08:23 99 40 09/25/16 08:20 100 Ventilator 40 09/25/16 08:00 101.3 124 20 118/65 98 09/25/16 08:00 124 09/25/16 08:00 40 09/25/16 06:00 124 09/25/16 04:22 100 40 09/25/16 04:00 130 09/25/16 04:00 40 09/25/16 04:00 101.0 130 24 120/70 97 09/25/16 02:00 135 09/25/16 00:00 40 09/25/16 00:00 100.9 145 20 112/66 98 09/25/16 00:00 142 09/24/16 23:58 96 40 09/24/16 22:00 112 09/24/16 20:00 40 09/24/16 20:00 115 09/24/16 20:00 100.0 107 22 167/104 97 09/24/16 19:53 96 40 I/O 09/24/16 09/24/16 09/24/16 09/25/16 09/25/16 09/25/16 07:00 15:00 23:00 07:00 15:00 23:00 Intake Total 910 ml 800 ml 625 ml 818 ml 660 ml Output Total 630 ml 1015 ml 1235 ml 2460 ml 510 ml 330 ml Balance 280 ml -215 ml -610 ml -1642 ml 150 ml -330 ml IV Total 485 ml 325 ml 153 ml 272 ml 200 ml Tube Feeding 425 ml 475 ml 472 ml 446 ml 360 ml Other 100 ml 100 ml Output Urine Total 100 ml 50 ml 0 ml 0 ml Stool Total 500 ml 875 ml 1175 ml 450 ml 500 ml Gastric Drainage Total 0 ml Tube Feeding Residual Discard 0 ml 0 ml Drainage Total 30 ml 140 ml 10 ml 10 ml 10 ml 30 ml Hemodialysis 2000 ml 300 ml # Voids 1 Result Diagram: 09/25/16 0315 09/25/16 0822 Objective Remarks GENERAL: WBWN obese male, on Vent , sedated SKIN: Warm and dry. HEAD: Normocephalic. EYES: No scleral icterus. No injection or drainage. NECK: Supple, trachea midline. No JVD or lymphadenopathy. CARDIOVASCULAR: Regular rate and rhythm without murmurs, gallops, or rubs. RESPIRATORY: Breath sounds equal bilaterally. No accessory muscle use. exp rhonchi GASTROINTESTINAL: Abdomen soft, non-tender, Abd distended MUSCULOSKELETAL: No cyanosis, or edema. BACK: Nontender without obvious deformity. No CVA tenderness. A/P Assessment and Plan Resp Failure, on vent COPD exac S/p robotic surgery Anxiety S/p Exp lap PLAN: Cont vent support, aerosol nebs Nebuliser rx qid and prn Abx per ID Watson Nebs Monitor lytes Cont ACV CPAP in AM Robbie Renteria MD Sep 25, 2016 17:54
--- NOTE | 2016-09-25 18:56 | HHI.IDPN ---
Subjective Subjective Remarks ID x cover pt is febrile up to 101 tolerating TF small amount of dc in VAC Antibiotics azactam levaquin flagyl fluconazole Lines HD cath site ok. Past Medical History 1. Diverticulitis. 2. COPD. 3. Hypertension. 4. Anxiety disorder. 5. BPH. 6. History of tonsillectomy. Allergies: Coded Allergies: *MDRO Multi-Drug Resistant Organism (Verified Adverse Reaction, Unknown, ) MDR-Pseudomonas (sputum)-09/17/16 Objective . Vital Signs Date Time Temp Pulse Resp B/P Pulse Ox O2 Delivery O2 Flow Rate FiO2 09/25/16 16:54 100 40 09/25/16 16:00 40 09/25/16 16:00 100.0 138 21 103/71 99 09/25/16 16:00 138 09/25/16 14:55 18 09/25/16 14:55 18 09/25/16 14:00 125 09/25/16 12:00 99.0 122 18 125/77 96 09/25/16 12:00 40 09/25/16 12:00 122 09/25/16 10:00 125 09/25/16 08:23 99 40 09/25/16 08:20 100 Ventilator 40 09/25/16 08:00 101.3 124 20 118/65 98 09/25/16 08:00 124 09/25/16 08:00 40 09/25/16 06:00 124 09/25/16 04:22 100 40 09/25/16 04:00 130 09/25/16 04:00 40 09/25/16 04:00 101.0 130 24 120/70 97 09/25/16 02:00 135 09/25/16 00:00 40 09/25/16 00:00 100.9 145 20 112/66 98 09/25/16 00:00 142 09/24/16 23:58 96 40 09/24/16 22:00 112 09/24/16 20:00 40 09/24/16 20:00 115 09/24/16 20:00 100.0 107 22 167/104 97 09/24/16 19:53 96 40 09/24/16 09/24/16 09/25/16 15:00 23:00 07:00 Intake Total 800 ml 625 ml 818 ml Output Total 1015 ml 1235 ml 2460 ml Balance -215 ml -610 ml -1642 ml IV Total 325 ml 153 ml 272 ml Tube Feeding 475 ml 472 ml 446 ml Other 100 ml Output Urine Total 50 ml 0 ml Stool Total 875 ml 1175 ml 450 ml Gastric Drainage Total 0 ml Tube Feeding Residual Discard 0 ml 0 ml Drainage Total 140 ml 10 ml 10 ml Hemodialysis 2000 ml # Voids 1 . Laboratory Tests Test 09/24/16 09/25/16 03:32 03:15 White Blood Count 19.0 TH/MM3 25.6 TH/MM3 Red Blood Count 3.35 MIL/MM3 3.15 MIL/MM3 Hemoglobin 9.5 GM/DL 8.8 GM/DL Hematocrit 28.6 % 26.8 % Mean Corpuscular Volume 85.2 FL 85.0 FL Mean Corpuscular Hemoglobin 28.4 PG 28.0 PG Mean Corpuscular Hemoglobin 33.4 % 33.0 % Concent Red Cell Distribution Width 15.9 % 15.9 % Platelet Count 557 TH/MM3 477 TH/MM3 Mean Platelet Volume 8.4 FL 8.2 FL Neutrophils (%) (Auto) 69.0 % 78.0 % Lymphocytes (%) (Auto) 15.1 % 9.9 % Monocytes (%) (Auto) 12.7 % 11.2 % Eosinophils (%) (Auto) 1.9 % 0.7 % Basophils (%) (Auto) 1.3 % 0.2 % Neutrophils # (Auto) 13.2 TH/MM3 20.0 TH/MM3 Lymphocytes # (Auto) 2.9 TH/MM3 2.5 TH/MM3 Monocytes # (Auto) 2.4 TH/MM3 2.9 TH/MM3 Eosinophils # (Auto) 0.4 TH/MM3 0.2 TH/MM3 Basophils # (Auto) 0.2 TH/MM3 0.1 TH/MM3 CBC Comment AUTO DIFF AUTO DIFF Differential Total Cells 100 100 Counted Neutrophils % (Manual) 76 % 74 % Lymphocytes % 10 % 8 % Monocytes % 9 % 10 % Eosinophils % 4 % 1 % Basophils % 1 % Neutrophils # (Manual) 14.4 TH/MM3 20.7 TH/MM3 Differential Comment FINAL DIFF FINAL DIFF MANUAL MANUAL Platelet Estimate HIGH HIGH Platelet Morphology Comment NORMAL NORMAL Tear Drop Cells 1+ Band Neutrophils % 5 % Metamyelocytes 2 % Red Cell Morphology Comment NORMAL Laboratory Tests Test 409/24/16 09/24/16 09/25/16 03:32 09:52 18:58 00:13 Sodium Level 137 MEQ/L Potassium Level 6.2 MEQ/L 6.1 MEQ/L 6.2 MEQ/L 4.0 MEQ/L Chloride Level 100 MEQ/L Carbon Dioxide Level 25.2 MEQ/L Anion Gap 12 MEQ/L Blood Urea Nitrogen 80 MG/DL Creatinine 5.09 MG/DL Estimat Glomerular Filtration 12 ML/MIN Rate Random Glucose 126 MG/DL Calcium Level 10.2 MG/DL Phosphorus Level 4.9 MG/DL Magnesium Level 2.3 MG/DL Total Bilirubin 0.9 MG/DL Aspartate Amino Transf 38 U/L (AST/SGOT) Alanine Aminotransferase 17 U/L (ALT/SGPT) Alkaline Phosphatase 327 U/L Total Protein 9.5 GM/DL Albumin 2.6 GM/DL Test 09/25/16 09/25/16 03:15 08:22 Sodium Level 140 MEQ/L Potassium Level 5.8 MEQ/L 5.1 MEQ/L Chloride Level 100 MEQ/L Carbon Dioxide Level 28.3 MEQ/L Anion Gap 12 MEQ/L Blood Urea Nitrogen 68 MG/DL Creatinine 4.80 MG/DL Estimat Glomerular Filtration 13 ML/MIN Rate Random Glucose 133 MG/DL Calcium Level 9.8 MG/DL Phosphorus Level 4.5 MG/DL Albumin 2.6 GM/DL Imaging Last Impressions Chest X-Ray 09/25/16 1247 Signed Impressions: Service Date/Time: Sunday, September 25, 2016 13:03 - CONCLUSION: Satisfactory dialysis catheter placement. No pneumothorax. Claude Rosario MD Abdomen/Pelvis CT 09/23/16 0000 Signed Impressions: Service Date/Time: Friday, September 23, 2016 15:22 - CONCLUSION: 1. Reduction in size of the hypodense fluid collection in the hepatogastric space with no residual hypodensity seen.. Stable position to be indwelling drainage catheter. 2. Decreasing size lower lung infiltrates. 3. Interval removal of right lower quadrant drain and interval development of a small to moderate size amount of fluid in the cul-de-sac. Evelio Boyd MD Upper Extremity Ultrasound 09/17/16 0000 Signed Impressions: Service Date/Time: Saturday, September 17, 2016 16:48 - CONCLUSION: 1. Positive nonocclusive deep venous thrombosis right internal jugular vein. 2. Nonocclusive superficial thrombosis in the left cephalic vein. Miki Banerjee MD Lower Extremity Ultrasound 09/17/16 0000 Signed Impressions: Service Date/Time: Saturday, September 17, 2016 17:33 - CONCLUSION: Normal examination. Miki Banerjee MD Head CT 09/17/16 0000 Signed Impressions: Service Date/Time: Saturday, September 17, 2016 20:47 - CONCLUSION: 1. No acute intracranial abnormalities. Miki Banerjee MD Chest CT 09/17/16 Signed Impressions: Service Date/Time: Saturday, September 17, 2016 20:46 - CONCLUSION: 1. Multifocal airspace consolidation in the lungs, right greater than left most characteristic of bronchopneumonia. There is underlying mild to moderate emphysema. Small effusions. Miki Banerjee MD Abscess Drainage CT 09/13/16 0000 Signed Impressions: Service Date/Time: Tuesday, September 13, 2016 14:30 - CONCLUSION: Uncomplicated CT guided drainage. Carlo Cortes MD Retroperitoneal Abscess Drainage 09/01/16 0600 Signed Impressions: Service Date/Time: Thursday, September 01, 2016 13:05 - CONCLUSION: Uncomplicated CT guided drainage of a right lower quadrant fluid collection. Approximately 75 cc of fecal-like brown material was aspirated. The air and fluid collection may communicate with the inferior aspect of the midline wound on the anterior abdominal wall. Claude Carrasco MD Abdomen X-Ray 08/24/16 Signed Impressions: Service Date/Time: August 07:44 - CONCLUSION: Gaseous distention of multiple bowel loops possible ileus. Jony Miller MD Enema w/Water Soluble 08/23/16 0000 Signed Impressions: Service Date/Time: Tuesday, August 23, 2016 10:12 - CONCLUSION: Anastomosis appears patent without extravasation. Aditya Rocha MD FACR CT Angiography 08/21/16 0000 Signed Impressions: Service Date/Time: Sunday, August 21, 2016 14:05 - CONCLUSION: 1. There is no evidence for central pulmonary emboli. 2. Minimal subcutaneous air as well as free intraperitoneal air. Aditya Rocha MD FACR Physical Exam GENERAL: On sedation, but opens eyes, NAD. On the vent SKIN: Warm, no rash HEENT: [place] conjunctivae, no scleral icterus. He is orally intubated. NECK: No adenopathy or swelling. LUNGS: Coarse breath sounds bilaterally, decreased at the bases. HEART: Regular rate and rhythm. No audible murmurs, rubs or gallops. ABDOMEN: Distended. Has midline incision, with wound vac at lower portion, Colostomy pink with brown stool RLQ. 1 accordion drain with serosang d/c, EXTREMITIES: No clubbing or cyanosis. Edema - small amount. Well-perfused NEUROLOGIC: Awake, following commands, + eye contact LINE: No evidence of infection Assessment & Plan Remarks IMPRESSION 1. Sepsis. Pseudomonas on CVL culture of removed line. 2. Peritonitis. Post abdominal surgery/Bowel resection - enterococcus, pseudomonas and yeast. CT from yday showed Reduction in size of the hypodense fluid collection 3. Pneumonia. pseudomonas ( resistant strain). Noted additional sensitivities on the pseudomonas. Zerbaxa,Avycaz, Colistin. 4. Leukocytosis secondary to infection. WBC still elevated, but trending down 5. Acute renal failure, on HD 6. Acute respiratory failure. Remains vent. dependent. 7. Thrombosis R. internal Jugular vein. 8. Fever persistent. Probably because of resistant organism. ? line vs intra abdominal infection vs PNA. RECOMMENDATIONS 1. cont fluconazole 2. Continue Aztreonam. Adjusted for renal function. 3. cont Tobramycin nebulized. 4. Continue Levaquin. Adjusted for renal function. 5. Continue Flagyl. 6. Monitor white blood cell count. 7. Monitor temps. Karen Gann RN, MD Sep 25, 2016 18:56
[2016-09-25] MEDS: PHENYTOIN SUSP 100 MG/4 ML CUP PO SCH (20:48)
[2016-09-26] VITALS (19 sets, daily range): BP systolic 113–141; BP diastolic 63–93; PULSE 107–129; RESP 18–20; TEMP 98.1–99.3; O2SAT 96–100
[2016-09-26] MEDS: AZTREONAM INJ 500 MG in SODIUM CHLORIDE 0.9% INJ 100 ML IV SCH ×2 (00:11→12:00)
[2016-09-26] MEDS: LORazepam 2 MG/ML VIAL IV PUSH PRN ×4 (00:12→20:50)
[2016-09-26] MEDS: FLUCONAZOLE 200 MG PREMIX BAG 100 ML IV SCH (00:12)
[2016-09-26] MEDS: metroNIDAZOLE 500 MG INJ 100 ML IV SCH ×5 (00:12→23:00)
[2016-09-26] MEDS: RESP: ALBUTEROL 2.5 MG/3 ML NEB (SCH) INH ×7 (00:22→23:43)
[2016-09-26] MEDS: HEPARIN SODIUM - SQ 10,000 UNITS/ML VIAL SQ SCH ×3 (02:02→18:25)
[2016-09-26 04:15] LABS: AUTOMATED NEUTROPHIL # 12.2 TH/MM3 (1.8-7.7); BASOPHIL # 0.4 TH/MM3 (0-0.2); EOSINOPHIL # 0.2 TH/MM3 (0-0.4); EOSINOPHIL % 1.3 % (0.0-4.0); HEMATOCRIT 27.2 % (39.0-51.0); HEMO FLAGS AUTO DIFF; LYMPH % 15.6 % (9.0-44.0); LYMPHOCYTE # 2.8 TH/MM3 (1.0-4.8); MEAN CELL VOLUME 86.2 FL (80.0-100.0); MEAN CORPUSCULAR HEMOGLOBIN 29.4 PG (27.0-34.0); MEAN CORPUSCULAR HGB CONC 34.1 % (32.0-36.0); NEUT % 68.1 % (16.0-70.0); PLATELET COUNT 449 TH/MM3 (150-450); RED BLOOD COUNT 3.16 MIL/MM3 (4.50-5.90); RED CELL DISTRIBUTION WIDTH 16.6 % (11.6-17.2)
[2016-09-26 04:41] LABS: ALKALINE PHOSPHATASE 261 U/L (45-117); ALT (GPT) 19 U/L (12-78); ANION GAP 12 MEQ/L (5-15); AST (GOT) 36 U/L (15-37); BICARBONATE 30.3 MEQ/L (21.0-32.0); BLOOD UREA NITROGEN 48 MG/DL (7-18); CHLORIDE 99 MEQ/L (98-107); GLOMERULAR FILTRATION RATE 17 ML/MIN (>89); MAGNESIUM 1.9 MG/DL (1.5-2.5); SODIUM (NA) 141 MEQ/L (136-145); TOTAL BILIRUBIN ADULT 0.8 MG/DL (0.2-1.0)
[2016-09-26 04:43] LABS: POTASSIUM 4.2 MEQ/L (3.5-5.1)
--- NOTE | 2016-09-26 04:45 | RADRPT ---
EXAM DATE/TIME: 09/26/2016 03:20 [facility] COMPARISON: CHEST SINGLE AP, September 25, 2016, 13:03. INDICATIONS : Respiratory distress. MEDICAL HISTORY : Hypertension. Chronic obstructive pulmonary disease. Diabetes mellitus type II. Asthma. Smoker. SURGICAL HISTORY : Tracheostomy. ENCOUNTER: Subsequent ACUITY: 2 weeks PAIN SCORE: Non-responsive. LOCATION: Bilateral chest FINDINGS: A single view of the chest demonstrates the lungs to be symmetrically aerated without evidence of mas s, infiltrate or effusion. Minimal basilar atelectasis. Tracheostomy tube and left subclavian dialys is catheter. Nasogastric tube tip courses off the inferior margin of the film. The cardiomediastinal contours are unremarkable. Osseous structures are intact. CONCLUSION: 1. Mild bibasilar atelectasis. Evelio Hitchcock Jr., MD on September 26, 2016 at 4:43 Board Certified Radiologist. This report was verified electronically.
[2016-09-26] MEDS: cloNIDine HCL 0.1 MG TAB PO SCH ×3 (05:34→22:00)
[2016-09-26] MEDS: ARTIFICIAL TEARS OPTH SOLN 15 ML BTL EACH EYE SCH ×3 (05:34→20:51)
[2016-09-26 05:53] LABS: BANDS 10 % (0-6); BASOPHILS 2 % (0-2); EOSINOPHILS 3 % (0-4); METAMYELOCYTES 3 % (0-1); MYELOCYTES 1 % (0-0); NEUTROPHIL # MANUAL DIFF 13.7 TH/MM3 (1.8-7.7); PLATELET ESTIMATE SMEAR NORMAL (NORMAL); PLATELET MORPHOLOGY NORMAL (NORMAL); POLYS (SEG NEUTROPHILS) 62 % (16-70); SCAN/DIFF FINAL DIFF MANUAL; WBC DIFF SAMPLE 100
[2016-09-26] MEDS: INSULIN NovoLIN REGULAR SUPPLEMENTAL SCALE SQ SCH ×4 (06:00→18:00)
[2016-09-26] MEDS: LACTOBACILLUS ACIDOPHILUS TAB NG SCH ×3 (07:51→18:24)
[2016-09-26] MEDS: CARVEDILOL 3.125 MG TAB PO SCH ×2 (07:51→20:49)
[2016-09-26] MEDS: amLODIPine BESYLATE 5 MG TAB PO SCH ×2 (07:51→20:49)
[2016-09-26] MEDS: PANTOPRAZOLE SODIUM 40 MG VIAL IVP SCH (07:52)
[2016-09-26] MEDS: SODIUM CHLORIDE 0.9% FLUSH 10 ML FLUSH IVF PRN ×2 (07:52→09:48)
[2016-09-26] MEDS: MUPIROCIN 2% OINT 1 APPLIC/GM SYR EACH NARE SCH ×2 (07:53→20:49)
[2016-09-26] MEDS: CHLORHEXIDINE 0.12% (ORAL KIT) 15 ML CUP MT SCH ×2 (08:00→20:00)
--- NOTE | 2016-09-26 08:21 | HHI.CCPN ---
Subjective Remarks/Hospital Course 08/25: Patient is a 58-year-old male with past medical history significant COPD who, on 08/18/16, underwent Laparoscopic robotic extensive lysis of adhesions, low anterior resection and small bowel resection. Apparently he was brought in by Dr. Moffett for Diverticulitis. Patient has a history of hypertension, COPD, and continues to smoke one pack of cigarettes a day. Postoperatively patient became progressively short of breath. Pulmonary was consulted on 08/21/16 as the patient was becoming more hypoxemic requiring BiPAP. CT of the chest PE protocol did not show any pulmonary embolism. Patient was placed on breathing treatments and IV Solu-Medrol 40 mg every [address] Renteria. Today a.m. patient was on 100% nonrebreather. Patient was diagnosed with an anastomotic leak today and was taken back to the OR by Dr. Moffett. He underwent exploratory laparotomy, I&D and loop ileostomy today. Postop patient remained hypoxemic requiring 70% oxygen, and hence was left intubated and critical care medicine was consulted. Dr. Arce evaluated the patient in ICU. He remained hypoxemic, FiO2 70%. Chest x-ray shows bibasilar mild infiltrates. On sedation lightening patient became very hypertensive, not following commands probably secondary to residual NM blockade received while being transported to ICU. Patient on receiving vancomycin Levaquin and Flagyl per Dr. Moffett. Dr. Arce added cefepime to cover for Pseudomonas. Holding Solu-Medrol due to anastomotic leak. 08/26: Remains sedated, orally intubated on mechanical ventilation. Went into anuric renal failure yesterday which did not respond to fluid boluses and diuretics hence was started on hemodialysis after placement of right IJ Vas- Cath. Currently sedated, arousable, remains orally intubated on mechanical ventilation. Blood pressure borderline last evening following dialysis for which she was started on low-dose vasopressin 0.03 units per minute and Levophed which is currently at 1 jose per minute. Started on TPN last night following which he has been hyperglycemic. 08/27: Sedated, arousable, orally intubated on mechanical ventilation. Spiking fevers overnight. Off Levophed, transiently off vasopressin. Remains on TPN. 08/28: Remains sedated, arousable, orally intubated on mechanical ventilation. On low-dose vasopressin. TPN continues. Made about 500 cc of urine in the last 24 hours. 08/29: In sedated, arousable, orally intubated on mechanical ventilation. Remains on TPN. Dirty drainage from left-sided SERGEI drain noted overnight. Dr. Moffett obtaining CT abdomen pelvis with oral contrast and ID consulted. 08/30: CURRENT TEMPERATURE 99. Status post 4 L hemodialysis today. No current change in therapy. White blood cell count remained stable. Off vasopressors. Arousable to voice. Versed has been discontinued. We'll attempt CPAP trials again today. 08/31: MAXIMUM TEMPERATURE 100.4. Currently 100.1. Currently resting in bed in no acute distress. Continues with scant drainage from bilateral JPs. We'll attempt CPAP trial again today. Positive stool from ostomy bag 09/01: Tmax 99.8. Currently 99.3. Placement of the new right IJ vas catheter today. Plan for IR to possibly drain right lower quadrant fluid collection. Arousable and moves all 4 extremity spontaneously. 09/02: Currently afebrile. Noted placement of iron drain with accordion drain. Growing Pseudomonas. Lasted only 2 hours on CPAP trials today. 09/03: Tolerated SBT for only 30 mins and required PS 20. Not ready to extubate. 09/04: Tachypnea related to anxiety? or metabolic acidosis. Will check VBG. Not tolerating SBT. Anemia. Transfuse during HD. 09/05: Remains very tachypneic on SBTs. Unable to extubate. 09/06: Leukocytosis and bandemia. Acts like ongoing sepsis. 09/07: No significant changes. Afebrile. Tolerating TFs as recommended by CRS. Will transition from TPN to enteral feeds now. 09/08: Bandemia persists. Tolerating full TFs. D/c'd TPN. Glucose control acceptable. 09/09: Tolerating longer CPAP/PS trials. 09/10: Stronger respiratory effort. Try to extubate today. 09/11: Stable hemodynamics, marginal respiratory function. 09/11 update 1800 hrs: Patient developed sudden hyperventilation to 55-60/min, hypertensive urgency to 220/120s, unresponsive state, started versed 10 mg/hr after 10 mg iv. Load with cerebyx, get head CT, EEG in a.m. 09/12: BP and pulse rate control improved with sedation. Etiology unclear. Suspected intracranial process but CT head normal. Possibly seizures. EEG pending this morning. WBC with bandemia persists. 09/13: CURRENT TEMPERATURE 99. Heart rate and blood pressure control. Noted T changes last night noted a potassium 8.2. Noted hemodialysis catheter placed by overnight roll tube setter in right femoral vein and hemodialysis currently undergoing. Plan for drainage of epigastric fluid collection by IR today. 09/14: Currently afebrile. Status post prior drainage of epigastric fluid area. Currently 60 ccwhite pus accordian drain. Status post bronchoscopy yesterday. 09/15 - intubation day #22. Family waiting another 24 hours to consider tracheostomy. He is not able to be extubated. Currently undergoing hemodialysis. Likely dialysis dependent. 09/16: Tmax 100.2. Blood pressure slowly trending downward. He transfuse PRBCs and albumin bolus prior to hemodialysis today. Intubation day #23. Family currently agreeable to tracheostomy but I'm unable to perform until Sunday. Positive BM. 09/17: Tmax 101. Intubation day #24. Tolerating tube feeding. Currently on Versed and fentanyl drips. 09/18: Remains sedated, orally intubated on mechanical ventilation. Scheduled for percutaneous tracheostomy today. Was dialyzed yesterday. Percutaneous drains [address] Ileostomy with good output. Wound VAC in place over anterior abdominal incision site. 09/19: Remains sedated, on mechanical ventilation via tracheostomy. Patient was noted to have some blood oozing from around tracheostomy site this morning as well as around Vas-Cath. Pressure dressing to be applied around Vas-Cath and packing around tracheostomy site and Dr. Howard informed. 09/20: Remains on fentanyl. On mechanical ventilation via tracheostomy. Continues to have fevers. No further bleeding from tracheostomy site or Vas- Cath site. 09/21: Remains on mechanical ventilation via tracheostomy. Resuming subcutaneous heparin today. No further bleeding from Vas-Cath or tracheostomy site. 09/22: Remains on mechanical ventilation, daily C Pap trials. Awake and alert this morning, following commands. 09/23: Tmax 100.2. Currently afebrile. Some oozing from hemodialysis catheter/ left IJ today. Plan for -2 L. Currently on mechanical ventilation while on hemodialysis. Awake and alert and following commands. 09/24: MAXIMUM TEMPERATURE 100.4. Currently afebrile. Noted hyperkalemia this am. Protocol initiated. Will recheck potassium in 3 hours. Awake and alert and following commands. 09/25: Tmax 101.1. Positive BM overnight likely secondary to Kayexalate provided for hyperkalemia. Received hemodialysis and likely will need to receive again today due to hypercatabolic state. Arousable on the ventilator and follows commands. Subjective 09/26: Awake and alert, following commands. Remains on mechanical ventilation via tracheostomy. Wound VAC in place over anterior abdominal wall incision site. Ileostomy functional. Tolerating tube feeds. Objective Vital Signs Date Time Temp Pulse Resp B/P Pulse Ox O2 Delivery O2 Flow Rate FiO2 09/26/16 06:00 118 09/26/16 04:27 100 40 09/26/16 04:00 98.9 18 113/63 09/25/16 08:20 Ventilator Intake and Output 09/25/16 09/25/16 09/26/16 08:00 16:00 00:00 Intake Total 818 ml 660 ml 1324 ml Output Total 2460 ml 510 ml 940 ml Balance -1642 ml 150 ml 384 ml Result Diagram: 09/26/16 0310 09/26/16 0310 Imaging Last Impressions Chest X-Ray 09/24/16 0600 Signed Impressions: Service Date/Time: Saturday, September 24, 2016 03:23 - CONCLUSION: Stable chest x-ray with underinflation and atelectasis at the bases and stable mild airspace opacity at the right base. Claude Carrasco MD Abdomen/Pelvis CT 09/23/16 0000 Signed Impressions: Service Date/Time: Friday, September 23, 2016 15:22 - CONCLUSION: 1. Reduction in size of the hypodense fluid collection in the hepatogastric space with no residual hypodensity seen.. Stable position to be indwelling drainage catheter. 2. Decreasing size lower lung infiltrates. 3. Interval removal of right lower quadrant drain and interval development of a small to moderate size amount of fluid in the cul-de-sac. Evelio Boyd MD Upper Extremity Ultrasound 09/17/16 0000 Signed Impressions: Service Date/Time: Saturday, September 17, 2016 16:48 - CONCLUSION: 1. Positive nonocclusive deep venous thrombosis right internal jugular vein. 2. Nonocclusive superficial thrombosis in the left cephalic vein. Miki Banerjee MD Lower Extremity Ultrasound 09/17/16 0000 Signed Impressions: Service Date/Time: Saturday, September 17, 2016 17:33 - CONCLUSION: Normal examination. Miki Banerjee MD Head CT 09/17/16 0000 Signed Impressions: Service Date/Time: Saturday, September 17, 2016 20:47 - CONCLUSION: 1. No acute intracranial abnormalities. Miki Banerjee MD Chest CT 09/17/16 0000 Signed Impressions: Service Date/Time: Saturday, September 17, 2016 20:46 - CONCLUSION: 1. Multifocal airspace consolidation in the lungs, right greater than left most characteristic of bronchopneumonia. There is underlying mild to moderate emphysema. Small effusions. Miki Banerjee MD Abscess Drainage CT 09/13/16 0000 Signed Impressions: Service Date/Time: Tuesday, September 13, 2016 14:30 - CONCLUSION: Uncomplicated CT guided drainage. Carlo Cortes MD Retroperitoneal Abscess Drainage 09/01/16 0600 Signed Impressions: Service Date/Time: Thursday, September 01, 2016 13:05 - CONCLUSION: Uncomplicated CT guided drainage of a right lower quadrant fluid collection. Approximately 75 cc of fecal-like brown material was aspirated. The air and fluid collection may communicate with the inferior aspect of the midline wound on the anterior abdominal wall. Claude Carrasco MD Abdomen X-Ray 08/24/16 0000 Signed Impressions: Service Date/Time: August 07:44 - CONCLUSION: Gaseous distention of multiple bowel loops possible ileus. Jony Miller MD Enema w/Water Soluble 08/23/16 0000 Signed Impressions: Service Date/Time: Tuesday, August 23, 2016 10:12 - CONCLUSION: Anastomosis appears patent without extravasation. Aditya Rocha MD FACR CT Angiography 08/21/16 0000 Signed Impressions: Service Date/Time: Sunday, August 21, 2016 14:05 - CONCLUSION: 1. There is no evidence for central pulmonary emboli. 2. Minimal subcutaneous air as well as free intraperitoneal air. Aditya Rocha MD FACR Objective Remarks GENERAL: 56-year-old male, currently on mechanical ventilation via tracheostomy SKIN: Warm. Dry. No rash HEAD: Atraumatic. Normocephalic. ENT: mucosa moist NECK: Tracheostomy in place. CARDIOVASCULAR: Tachy, RR. S1, S2. No S4. No m/c/g/r. RESPIRATORY: On mechanical ventilation, scattered rhonchi appreciated in all lung nesbitt, no wheezing. GASTROINTESTINAL: Abdomen non distended. Midline incision clean and intact, wound VAC in place. BS active. Ostomy pink with brown stool. MUSCULOSKELETAL: Extremities with trace positive bilateral upper and lower extremity edema, well perfused. NEUROLOGICAL: Awake and alert and interactive. Moves all 4 extremities spontaneously. Date of Insertion: Aug 31, 2016 Date of Removal: Sep 12, 2016 Side: Right A/P Assessment and Plan NEURO/PSYCH: History of anxiety Acute toxic metabolic encephalopathymultifactorial Acetaminophen for fever Haldol 1 mg every 4 hours when necessary Ativan 0.5 mg every one hour when necessary agitation Morphine sulfate 3 milligrams IV every 3 hours when necessary pain -Off sedative drips, follow neuro status. -Head CT 09/11 no acute intracranial findings -EEG 09/12 revealed mild to moderate encephalopathy. No epileptiform activity. Currently on Cerebyx 300 mg liquid at night. Level 5.7 on 09/18, 3.5 on 09/26 RESP: Acute hypoxemic respiratory failure COPD exacerbation Probable healthcare associated pneumonia -Continue ACV 22/600 0.75/5/40 Ventilator bundle -Albuterol nebs every 4 hours scheduled and when necessary duo nebs, Symbicort 2 puffs every 12 was discontinued while in ventilator. Continue Pulmicort 0.5/2 twice a day -Broad-spectrum antibiotics as below -Continue daily C Pap trials. Dr. Renteria/Pulmonary following Increase SBTs length as able. s/p tracheostomy 09/18 CV: Hypotension secondary to septic shock resolved History of hypertension Anuria necessitating hemodialysis. Off all vasopressors -Attempt negative fluid balance with hemodialysis. Currently on clonidine 0.1 3 times a day, Norvasc 5 mg twice a day and Coreg 3.125 twice a day. Labetalol prn GI/ Nutrition: Anastomotic leak status post exploratory laparotomy, I&D, loop ileostomy 08/24/16 s/p Laparoscopic robotic extensive ANNA MARIE, robotic LAR and small bowel resection Laparoscopic robotic ANNA MARIE, robotic LAR and small bowel resection with anastomotic leak History of diverticulitis -Status post exploratory laparotomy, I&D, loop ileostomy 08/24/16 -Postoperative management per Dr. Moffett. Broad-spectrum antibiotics as below. positive ostomy output CT abdomen pelvis with oral contrast 08/29 reveal small bowel ileus. Serous fluid collection likely postoperative changes. - On Reglan to improve GI motility On Glucerna 1.5 goal 60 cc an hour. Protonix for GI prophylaxis Wound VAC with purulent drainage 150 cc. Accordion to epigastric drain with purulent drainage [address] abdomen/pelvis 09/23 revealed decreased fluid in the hepatogastric region. Removal of interval drains. Small to moderate fluid in the cul-de-sac. Renal/: Acute kidney injury History BPH Status post bilateral ureteral stents placed by Dr. Fraser 08/18 -Monitor renal function closely. Mg catheter. -IV fluids discontinued in view of anuric renal failure and hyperkalemia necessitating hemodialysis. Nephrology consulted and following. -Attempt maintaining even to slightly negative fluid balance. New right IJ hemodialysis catheter placed 09/01 -> D/C 09/13. New right femoral hemodialysis catheter placed 09/13 -> D/C 09/19 New LIJ vascath placed 09/18 -> D/C 09/25 New Left Subclavian vascath placed 09/26 ID: Anastomotic leak Sepsis Probable HCAP -IV vancomycin, Flagyl and Levaquin per Dr. Moffett. Levaquin discontinued . Zosyn started 09/02- 09/16. Flagyl and micafungin per ID added. Merrem added 09/15. Micafungin discontinued 09/23 Current regimen is Levaquin 250 IV every 48 hours, Flagyl 500 mg IV every 6 hours, Diflucan 200 mg IV 24 hours and aztreonam 500 mg IV every 12 hours. Also tobramycin aerosols twice a day and pulse dose of vancomycin. Pertinent culture 09/20 - wound - Pseudomonas and Iram Alb and Paropsilosis 09/17 - sputum - Pseudomonas 09/17 - blood cultures 2- no growth 09/13 - bronchial -Pseudomonas 09.13 - abdomen abscess -Pseudomonas/yeast 09/01: Abdominal wound - Pseudomonas, enterococcus, Iram 08/31 - line culture Pseudomonas/coag negative staph 08/31 - blood cultures 2 -no growth 08/31 - sputum - pending 08/29 - wound - Pseudomonas, group D enterococcus, C. albicans and yeast 08/25 blood cultures - no growth 08/25 sputum - Serratia/Klebsiella/Pseudomonas 08/24 - wound - no growth HEME: Leukocytosis Normocytic anemia Thrombocytosis RIJ DVT (nonocclusive) Left cephalic superficial thrombus -Monitor CBC, CMP, coags - On anticoagulation with heparin (for right IJ nonocclusive thrombus/ left cephalic vein) which was put on hold since 09/11 for tracheostomy. Started subcutaneous heparin on 09/21 and if no bleeding will consider advancing to full anticoagulation. ENDO: -Sliding-scale insulin with Accu-Cheks every 6 hours for glycemic control. Levemir 20 units twice a day currently on hold FEN: Hyperphosphatemia Hyperkalemia Continue PhosLo 1334 mg 3 times a day for hyperphosphatemia. Hemodialysis per renal. Received D50/insulin/bicarbonate/Kayexalate on 09/25 for hyperkalemia. PROPH: -Bilateral lower extremity SCDs. Heparin gtt for RIJ DVT (held 09/18 for scheduled trach). Currently on heparin subcutaneous Protonix for GI prophylaxis LINES: -Left subclavian central line placed in the OR 08/24 - 08/31. Right subclavian central line placed 08/31 - 09/11 - RIJ dialysis catheter 08/25 -08/31. New right IJ hemodialysis catheter 09/01 - - Right femoral hemodialysis catheter 09/13 - 09/19 New LIJ vascath placed 09/18 -> D/C 09/25 New Left Subclavian vascath placed 09/26 Critical Care: The total critical care time was 35 minutes. Time to perform other separately billable procedures was not included in the critical care time. Satya Quarles MD Sep 26, 2016 08:21
[2016-09-26] MEDS: RESP: BUDESONIDE 0.5 MG/2 ML NEB NEB SCH ×2 (08:32→20:04)
[2016-09-26] MEDS: RESP: TOBRAMYCIN SULFATE 300 MG/5 ML NEB NEB SCH ×2 (08:32→20:04)
[2016-09-26] MEDS: SODIUM CHLORIDE 0.9% FLUSH 5 ML FLUSH IVF SCH ×2 (09:00→20:51)
[2016-09-26] MEDS: SODIUM CHLORIDE 0.9% 10 ML VIAL IV FLUSH SCH ×2 (09:30→17:30)
--- NOTE | 2016-09-26 09:34 | HHI.NPPN ---
Subjective General Problems: Edema Renal Failure: Acute Interval History Afebrile today. Tachycardia persists. Tolerated CPAP today for only 10 minutes, became tachypneic. (Fransisca Canela) Review of Systems General Constitutional: Fever General Remarks nods head no when asked about pain or SOB. (Fransisca Canela) Musculoskeletal MS Remarks generalized pain (Fransisca Canela) Objective Data Data 09/25/16 09/26/16 19:00 07:00 Intake Total 660 ml 2233 ml Output Total 840 ml 1040 ml Balance -180 ml 1193 ml IV Total 200 ml 817 ml Tube Feeding 360 ml 1216 ml Other 100 ml 200 ml Output Urine Total 0 ml 0 ml Stool Total 500 ml 1000 ml Drainage Total 40 ml 40 ml Hemodialysis 300 ml Vital Signs Date Time Temp Pulse Resp B/P Pulse Ox O2 Delivery O2 Flow Rate FiO2 09/26/16 08:34 100 40 09/26/16 06:00 118 09/26/16 04:27 100 40 09/26/16 04:00 98.9 113 18 113/63 100 09/26/16 04:00 40 09/26/16 04:00 113 09/26/16 02:00 120 09/26/16 00:43 100 40 09/26/16 00:00 99.0 113 18 135/84 99 09/26/16 00:00 113 09/26/16 00:00 40 09/25/16 22:00 116 09/25/16 20:14 98 40 09/25/16 20:00 121 09/25/16 20:00 99.1 121 18 125/81 99 09/25/16 20:00 40 09/25/16 18:00 125 09/25/16 16:54 100 40 09/25/16 16:00 40 09/25/16 16:00 100.0 138 21 103/71 99 09/25/16 16:00 138 09/25/16 14:55 18 09/25/16 14:55 18 09/25/16 14:00 125 09/25/16 12:00 99.0 122 18 125/77 96 09/25/16 12:00 40 09/25/16 12:00 122 09/25/16 10:00 125 (Fransisca Canela) -: 09/26/16 0310 09/26/16 0310 Imaging Last 72 hours Impressions Chest X-Ray 09/26/16 0600 Signed Impressions: Service Date/Time: Monday, September 26, 2016 03:20 - CONCLUSION: 1. Mild bibasilar atelectasis. Evelio Hitchcock Jr., MD Chest X-Ray 09/25/16 1247 Signed Impressions: Service Date/Time: Sunday, September 25, 2016 13:03 - CONCLUSION: Satisfactory dialysis catheter placement. No pneumothorax. Claude Rosario MD Chest X-Ray 09/24/16 0600 Signed Impressions: Service Date/Time: Saturday, September 24, 2016 03:23 - CONCLUSION: Stable chest x-ray with underinflation and atelectasis at the bases and stable mild airspace opacity at the right base. Claude Carrasco MD Tubes & Lines: Vas-Cath Tubes & Lines Comment trach TLC, NG tube (R) SERGEI drain RLQ epigastric drain wound vac lower abdomen Drip Comment none (Fransisca Canela) Physical Exam General Appearance: Well Developed, No Acute Distress Appearance Remarks awake on ventilator via trach, nods yes/no to questions (Fransisca Canela ) Throat Throat Exam: Oral Mucosa [place] & Moist (Fransisca Canela) Neck Neck Remarks trach (Fransisca Canela) Pulmonary Resp Exam: Breath Sounds Equal, No Distress, Crackles, Sputum, Diminished Breath Sounds Resp Remarks vented, increased secretions (Fransisca Canela) Cardiology CV Exam: Regular, Normal Sinus Rhythm (Fransisca Canela) Gastrointestinal/Abdomen GI Exam: Distended GI Remarks distended, not as firm; colostomy with pink/red stoma stool in colostomy bag (Fransisca Canela) Musculoskeletal MS Exam: Joints Intact, Atrophy, Unable to Ambulate (Fransisca Canela) Integumentary Skin Exam: Warm, Dry Skin Remarks below umbilicus, midabdominal wound has dehisced; wound vac left side of incision (Fransisca Canela) Extremeties Extremities Exam: No Edema, Pedal Pulses Palpable (Fransisca Canela) Neurologic Neuro Exam: Alert, Awake, Moving All Extremities (Fransisca Canela) VTE Prophylaxis Device: SCDs (Fransisca Canela) Assessment/Plan Discussed Condition With: Patient Assessment Summary: VIRIDIANA/Acute Renal Failure, Acute Tubular Necrosis, Hypertension Problem List: (1) Acute renal failure Plan: He has developed ATN due to sepsis. Dialysis initiated 08/25 remains Oligoanuric Dialyzed late Sunday evening and again Sunday due to hyperkalemia will hold HD today s/p left subclavian vascath placement 09/26 daily renal panel, await renal recovery Avoid nephrotoxic agents. Monitor drug levels and renally dose medications when appropriate Avoid IVF specifically LR. continue Calcium acetate for hyperphosphatemia, phosphorus has normalized (2) Diverticulitis Plan: afebrile today; s/p colon resection with complications surgery following. he has multiple drains and wound vac due to wound dehiscence pseudomonas in sputum and wound, it is highly resistant ID following, managing antibiotics. He is now on Aztreonam and Levaquin (which are renally dosed) and Flagyl; also intermittent vancomycin; Tobramycin nebulizer. micafungin has been stopped s/p trach placement 09/18 continue tube feeding Plan p (Fransisca Canela) Plan patient was seen and examined. He now has left subclavian Vascath. Dialysis every other day. (Tito Kuo MD) Problem Qualifiers (1) Acute renal failure: Qualified Code: N17.0 - Acute renal failure with tubular necrosis Fransisca Canela Sep 26, 2016 09:34 Tito Kuo MD Sep 26, 2016 14:08
[2016-09-26] MEDS: CALCIUM ACETATE 667 MG CAP PO SCH ×3 (09:46→18:24)
--- NOTE | 2016-09-26 11:14 | HHI.PR ---
Subjective Remarks YOAA male with robotic surgery,COPD exac Underwent exp lap,I&d and loop iliostomy placement Remains on vent Had Trach no fever On ACV Did't tolerate CPAP today Objective Vital Signs Vital Signs Date Time Temp Pulse Resp B/P Pulse Ox O2 Delivery O2 Flow Rate FiO2 09/26/16 10:00 118 09/26/16 08:34 40 09/26/16 08:34 100 40 09/26/16 08:00 120 09/26/16 08:00 98.2 121 19 138/88 99 09/26/16 08:00 40 09/26/16 06:00 118 09/26/16 04:27 100 40 09/26/16 04:00 98.9 113 18 113/63 100 09/26/16 04:00 40 09/26/16 04:00 113 09/26/16 02:00 120 09/26/16 00:43 100 40 09/26/16 00:00 99.0 113 18 135/84 99 09/26/16 00:00 113 09/26/16 00:00 40 09/25/16 22:00 116 09/25/16 20:14 98 40 09/25/16 20:00 121 09/25/16 20:00 99.1 121 18 125/81 99 09/25/16 20:00 40 09/25/16 18:00 125 09/25/16 16:54 100 40 09/25/16 16:00 40 09/25/16 16:00 100.0 138 21 103/71 99 09/25/16 16:00 138 09/25/16 14:55 18 09/25/16 14:55 18 09/25/16 14:00 125 09/25/16 12:00 99.0 122 18 125/77 96 09/25/16 12:00 40 09/25/16 12:00 122 I/O 09/25/16 09/25/16 09/25/16 09/26/16 09/26/16 09/26/16 07:00 15:00 23:00 07:00 15:00 23:00 Intake Total 818 ml 660 ml 1324 ml 909 ml Output Total 2460 ml 510 ml 940 ml 430 ml Balance -1642 ml 150 ml 384 ml 479 ml IV Total 272 ml 200 ml 431 ml 386 ml Tube Feeding 446 ml 360 ml 793 ml 423 ml Other 100 ml 100 ml 100 ml 100 ml Output Urine Total 0 ml 0 ml 0 ml 0 ml Stool Total 450 ml 500 ml 600 ml 400 ml Drainage Total 10 ml 10 ml 40 ml 30 ml Hemodialysis 2000 ml 300 ml Result Diagram: 09/26/1630909/26/16309 Objective Remarks GENERAL: WBWN obese male, on Vent , sedated SKIN: Warm and dry. HEAD: Normocephalic. EYES: No scleral icterus. No injection or drainage. NECK: Supple, trachea midline. No JVD or lymphadenopathy. CARDIOVASCULAR: Regular rate and rhythm without murmurs, gallops, or rubs. RESPIRATORY: Breath sounds equal bilaterally. No accessory muscle use. exp rhonchi GASTROINTESTINAL: Abdomen soft, non-tender, Abd distended MUSCULOSKELETAL: No cyanosis, or edema. BACK: Nontender without obvious deformity. No CVA tenderness. A/P Assessment and Plan Resp Failure, on vent COPD exac S/p robotic surgery Anxiety S/p Exp lap PLAN: Cont vent support, aerosol nebs Nebuliser rx qid and prn Abx per ID Monitor lytes Cont ACV Robbie Renteria MD Sep 26, 2016 11:14
[2016-09-26] MEDS: MORPHINE SULFATE 4 MG/ML INJ IV PRN ×2 (13:00→23:24)
[2016-09-26] MEDS: LEVOFLOXACIN 250 MG PREMIX INJ 50 ML IV SCH (13:00)
--- NOTE | 2016-09-26 13:23 | HHI.IDPN ---
Subjective Subjective Remarks ID [id number] Patient is a 56-year-old male, admitted to the hospital initially for surgery. He has chronic diverticulitis with extension to the small bowel. He underwent surgery August 19 and had laparoscopic, robotic extensive lysis of adhesions, low anterior resection, and small bowel resection. On August 24 he developed anastomotic leak, and underwent repeat surgery and had exploratory laparotomy, irrigation and diverging loop sigmoid colostomy. On September 02 he developed wound dehiscence in the lower midline incision, and it was felt that it had fascial dehiscence. Wound VAC was started at that time. More recently he was found to have a retroperitoneal abscess, and a percutaneous drain was placed on September 01. Patient has been treated for gram-negative pneumonia. The retroperitoneal abscess culture has grown Pseudomonas, enterococcus, and Iram glabrata. Patient has required ventilatory support. Patient also has developed renal failure, and has been undergoing hemodialysis. His WBC remains elevated. Notes reviewed D/W RN Temps better today WBC lower today Did not do well with CPAP today All percutaneous drains have been removed Colostomy working Has wound vac in lower midline incision Has trach Had HD yesterday Has new vascath placed yesterday No other central line 09/20 Fluid with C albvicans and C parapsilosis 09/20 SERGEI right PSAE 09/17 Sputum PSAE 09/17 2 BC negative Antibiotics azactam levaquin flagyl fluconazole Lines HD cath site ok. Past Medical History 1. Diverticulitis. 2. COPD. 3. Hypertension. 4. Anxiety disorder. 5. BPH. 6. History of tonsillectomy. Allergies: Coded Allergies: *MDRO Multi-Drug Resistant Organism (Verified Adverse Reaction, Unknown, ) MDR-Pseudomonas (sputum)-09/17/16 Objective . Vital Signs Date Time Temp Pulse Resp B/P Pulse Ox O2 Delivery O2 Flow Rate FiO2 09/26/16 12:10 96 40 09/26/16 10:00 118 09/26/16 08:34 40 09/26/16 08:34 100 40 09/26/16 08:00 120 09/26/16 08:00 98.2 121 19 138/88 99 09/26/16 08:00 40 09/26/16 06:00 118 09/26/16 04:27 100 40 09/26/16 04:00 98.9 113 18 113/63 100 09/26/16 04:00 40 09/26/16 04:00 113 09/26/16 02:00 120 09/26/16 00:43 100 40 09/26/16 00:00 99.0 113 18 135/84 99 09/26/16 00:00 113 09/26/16 00:00 40 09/25/16 22:00 116 09/25/16 20:14 98 40 09/25/16 20:00 121 09/25/16 20:00 99.1 121 18 125/81 99 09/25/16 20:00 40 09/25/16 18:00 125 09/25/16 16:54 100 40 09/25/16 16:00 40 09/25/16 16:00 100.0 138 21 103/71 99 09/25/16 16:00 138 09/25/16 14:55 18 09/25/16 14:55 18 09/25/16 14:00 125 09/25/16 09/25/16 09/26/16 15:00 23:00 07:00 Intake Total 660 ml 1324 ml 909 ml Output Total 510 ml 940 ml 430 ml Balance 150 ml 384 ml 479 ml IV Total 200 ml 431 ml 386 ml Tube Feeding 360 ml 793 ml 423 ml Other 100 ml 100 ml 100 ml Output Urine Total 0 ml 0 ml 0 ml Stool Total 500 ml 600 ml 400 ml Drainage Total 10 ml 40 ml 30 ml Hemodialysis 300 ml . Laboratory Tests Test 09/25/16 09/26/16 03:15 03:10 White Blood Count 25.6 TH/MM3 18.0 TH/MM3 Red Blood Count 3.15 MIL/MM3 3.16 MIL/MM3 Hemoglobin 8.8 GM/DL 9.3 GM/DL Hematocrit 26.8 % 27.2 % Mean Corpuscular Volume 85.0 FL 86.2 FL Mean Corpuscular Hemoglobin 28.0 PG 29.4 PG Mean Corpuscular Hemoglobin 33.0 % 34.1 % Concent Red Cell Distribution Width 15.9 % 16.6 % Platelet Count 477 TH/MM3 449 TH/MM3 Mean Platelet Volume 8.2 FL 8.3 FL Neutrophils (%) (Auto) 78.0 % 68.1 % Lymphocytes (%) (Auto) 9.9 % 15.6 % Monocytes (%) (Auto) 11.2 % 13.0 % Eosinophils (%) (Auto) 0.7 % 1.3 % Basophils (%) (Auto) 0.2 % 2.0 % Neutrophils # (Auto) 20.0 TH/MM3 12.2 TH/MM3 Lymphocytes # (Auto) 2.5 TH/MM3 2.8 TH/MM3 Monocytes # (Auto) 2.9 TH/MM3 2.3 TH/MM3 Eosinophils # (Auto) 0.2 TH/MM3 0.2 TH/MM3 Basophils # (Auto) 0.1 TH/MM3 0.4 TH/MM3 CBC Comment AUTO DIFF AUTO DIFF Differential Total Cells 100 100 Counted Neutrophils % (Manual) 74 % 62 % Band Neutrophils % 5 % 10 % Lymphocytes % 8 % 9 % Monocytes % 10 % 10 % Eosinophils % 1 % 3 % Neutrophils # (Manual) 20.7 TH/MM3 13.7 TH/MM3 Metamyelocytes 2 % 3 % Differential Comment FINAL DIFF FINAL DIFF MANUAL MANUAL Platelet Estimate HIGH NORMAL Platelet Morphology Comment NORMAL NORMAL Red Cell Morphology Comment NORMAL Basophils % 2 % Myelocytes 1 % Laboratory Tests Test 09/24/16 09/25/16 09/25/16 09/25/16 18:58 00:13 03:15 08:22 Potassium Level 6.2 MEQ/L 4.0 MEQ/L 5.8 MEQ/L 5.1 MEQ/L Sodium Level 140 MEQ/L Chloride Level 100 MEQ/L Carbon Dioxide Level 28.3 MEQ/L Anion Gap 12 MEQ/L Blood Urea Nitrogen 68 MG/DL Creatinine 4.80 MG/DL Estimat Glomerular Filtration 13 ML/MIN Rate Random Glucose 133 MG/DL Calcium Level 9.8 MG/DL Phosphorus Level 4.5 MG/DL Albumin 2.6 GM/DL Test 09/26/16 03:10 Sodium Level 141 MEQ/L Potassium Level 4.2 MEQ/L Chloride Level 99 MEQ/L Carbon Dioxide Level 30.3 MEQ/L Anion Gap 12 MEQ/L Blood Urea Nitrogen 48 MG/DL Creatinine 3.77 MG/DL Estimat Glomerular Filtration 17 ML/MIN Rate Random Glucose 146 MG/DL Calcium Level 9.7 MG/DL Phosphorus Level 3.9 MG/DL Magnesium Level 1.9 MG/DL Total Bilirubin 0.8 MG/DL Aspartate Amino Transf 36 U/L (AST/SGOT) Alanine Aminotransferase 19 U/L (ALT/SGPT) Alkaline Phosphatase 261 U/L Total Protein 8.8 GM/DL Albumin 2.5 GM/DL Imaging Last Impressions Chest X-Ray 09/25/16 1247 Signed Impressions: Service Date/Time: Sunday, September 25, 2016 13:03 - CONCLUSION: Satisfactory dialysis catheter placement. No pneumothorax. Claude Rosario MD Abdomen/Pelvis CT 09/23/16 0000 Signed Impressions: Service Date/Time: Friday, September 23, 2016 15:22 - CONCLUSION: 1. Reduction in size of the hypodense fluid collection in the hepatogastric space with no residual hypodensity seen.. Stable position to be indwelling drainage catheter. 2. Decreasing size lower lung infiltrates. 3. Interval removal of right lower quadrant drain and interval development of a small to moderate size amount of fluid in the cul-de-sac. Evelio Boyd MD Upper Extremity Ultrasound 09/17/16 0000 Signed Impressions: Service Date/Time: Saturday, September 17, 2016 16:48 - CONCLUSION: 1. Positive nonocclusive deep venous thrombosis right internal jugular vein. 2. Nonocclusive superficial thrombosis in the left cephalic vein. Miki Banerjee MD Lower Extremity Ultrasound 09/17/16 0000 Signed Impressions: Service Date/Time: Saturday, September 17, 2016 17:33 - CONCLUSION: Normal examination. Miki Banerjee MD Head CT 09/17/16 0000 Signed Impressions: Service Date/Time: Saturday, September 17, 2016 20:47 - CONCLUSION: 1. No acute intracranial abnormalities. Miki Banerjee MD Chest CT 09/17/16 0000 Signed Impressions: Service Date/Time: Saturday, September 17, 2016 20:46 - CONCLUSION: 1. Multifocal airspace consolidation in the lungs, right greater than left most characteristic of bronchopneumonia. There is underlying mild to moderate emphysema. Small effusions. Miki Banerjee MD Abscess Drainage CT 09/13/16 0000 Signed Impressions: Service Date/Time: Tuesday, September 13, 2016 14:30 - CONCLUSION: Uncomplicated CT guided drainage. Carlo Cortes MD Retroperitoneal Abscess Drainage 09/01/16 0600 Signed Impressions: Service Date/Time: Thursday, September 01, 2016 13:05 - CONCLUSION: Uncomplicated CT guided drainage of a right lower quadrant fluid collection. Approximately 75 cc of fecal-like brown material was aspirated. The air and fluid collection may communicate with the inferior aspect of the midline wound on the anterior abdominal wall. Claude Carrasco MD Abdomen X-Ray 08/24/16 0000 Signed Impressions: Service Date/Time: August 07:44 - CONCLUSION: Gaseous distention of multiple bowel loops possible ileus. Jony Miller MD Enema w/Water Soluble 08/23/16 0000 Signed Impressions: Service Date/Time: Tuesday, August 23, 2016 10:12 - CONCLUSION: Anastomosis appears patent without extravasation. Aditya Rocha MD FACR CT Angiography 08/21/16 0000 Signed Impressions: Service Date/Time: Sunday, August 21, 2016 14:05 - CONCLUSION: 1. There is no evidence for central pulmonary emboli. 2. Minimal subcutaneous air as well as free intraperitoneal air. Aditya Rocha MD FACR Physical Exam GENERAL: Awake, responsive, on the vent, NAD SKIN: Warm, dry, no rash HEENT: [place] conjunctivae, no scleral icterus. NECK: No adenopathy or swelling. Trach in place, site ok LUNGS: Coarse breath sounds bilaterally, decreased at the bases. HEART: Regular rate and rhythm. No audible murmurs, rubs or gallops. ABDOMEN: Soft, not tender. Colostomy on R working well, Midline incision, has vac in lower portion. EXTREMITIES: No clubbing or cyanosis. Edema - small amount. Well-perfused NEUROLOGIC: Awake, following commands, + eye contact LINE: No evidence of infection Assessment & Plan Remarks IMPRESSION Sepsis. Pseudomonas on CVL culture of removed line. Peritonitis. Post abdominal surgery/Bowel resection - enterococcus, pseudomonas and yeast. - had drains previously, now removed - repeat CT better, though has more fluid in cul-de-sac, ?significance Pneumonia. pseudomonas ( resistant strain). - prob colonized by now - on aerosol Tobra Leukocytosis secondary to infection. WBC still elevated, but trending down Acute renal failure, on HD Acute respiratory failure. Remains vent. dependent. - S/P trach Thrombosis R. internal Jugular vein. Fever persistent. Probably because of resistant organism. ? line vs intra abdominal infection vs PNA. - temps better overnight RECOMMENDATIONS Continue fluconazole Continue Aztreonam. Adjusted for renal function. Continue Tobramycin nebulized. Stop Levaquin. Continue Flagyl. If temps up and WBC rising, will change to Zerbaxa Monitor white blood cell count. Monitor temps. Monitor progress D/W Wendy Reed MD Sep 26, 2016 13:23
[2016-09-26] MEDS: PHENYTOIN SUSP 100 MG/4 ML CUP PO SCH (20:49)
[2016-09-26] MEDS: diphenhydrAMINE HCL 50 MG/ML VIAL IV PRN (20:50)
[2016-09-27] VITALS (18 sets, daily range): BP systolic 126–149; BP diastolic 78–98; PULSE 105–126; RESP 19–30; TEMP 98.4–99.1; O2SAT 100
[2016-09-27] MEDS: LORazepam 2 MG/ML VIAL IV PUSH PRN ×3 (00:49→21:20)
[2016-09-27] MEDS: SODIUM CHLORIDE 0.9% 10 ML VIAL IV FLUSH SCH ×4 (01:30→23:53)
[2016-09-27] MEDS: HEPARIN SODIUM - SQ 10,000 UNITS/ML VIAL SQ SCH ×3 (02:00→18:12)
[2016-09-27] MEDS: RESP: ALBUTEROL 2.5 MG/3 ML NEB (SCH) INH ×6 (03:43→23:40)
[2016-09-27 04:57] LABS: AUTOMATED NEUTROPHIL # 11.3 TH/MM3 (1.8-7.7); BASOPHIL # 0.3 TH/MM3 (0-0.2); BASOPHIL % 1.9 % (0.0-2.0); EOSINOPHIL # 0.3 TH/MM3 (0-0.4); EOSINOPHIL % 1.6 % (0.0-4.0); HEMATOCRIT 26.3 % (39.0-51.0); LYMPH % 14.5 % (9.0-44.0); LYMPHOCYTE # 2.4 TH/MM3 (1.0-4.8); MEAN CELL VOLUME 86.9 FL (80.0-100.0); MEAN CORPUSCULAR HEMOGLOBIN 27.9 PG (27.0-34.0); MEAN CORPUSCULAR HGB CONC 32.1 % (32.0-36.0); MONO % 12.8 % (0.0-8.0); NEUT % 69.2 % (16.0-70.0); PLATELET COUNT 414 TH/MM3 (150-450); RED BLOOD COUNT 3.03 MIL/MM3 (4.50-5.90); RED CELL DISTRIBUTION WIDTH 16.4 % (11.6-17.2); WHITE BLOOD COUNT 16.3 TH/MM3 (4.0-11.0)
[2016-09-27 05:10] LABS: HEMO FLAGS AUTO DIFF
[2016-09-27] MEDS: cloNIDine HCL 0.1 MG TAB PO SCH ×3 (05:15→20:26)
[2016-09-27] MEDS: ARTIFICIAL TEARS OPTH SOLN 15 ML BTL EACH EYE SCH ×3 (05:15→22:09)
[2016-09-27] MEDS: metroNIDAZOLE 500 MG INJ 100 ML IV SCH ×4 (05:15→23:17)
[2016-09-27 05:35] LABS: ALT (GPT) 19 U/L (12-78); ANION GAP 14 MEQ/L (5-15); AST (GOT) 32 U/L (15-37); BICARBONATE 25.5 MEQ/L (21.0-32.0); BLOOD UREA NITROGEN 74 MG/DL (7-18); CHLORIDE 99 MEQ/L (98-107); GLOMERULAR FILTRATION RATE 11 ML/MIN (>89); SODIUM (NA) 138 MEQ/L (136-145)
[2016-09-27 05:40] LABS: ALKALINE PHOSPHATASE 233 U/L (45-117); POTASSIUM 4.4 MEQ/L (3.5-5.1); TOTAL BILIRUBIN ADULT 0.7 MG/DL (0.2-1.0)
[2016-09-27] MEDS: INSULIN NovoLIN REGULAR SUPPLEMENTAL SCALE SQ SCH ×5 (06:00→23:45)
--- NOTE | 2016-09-27 07:31 | HHI.NPPN ---
Subjective General Problems: Edema Renal Failure: Acute Interval History To have dialysis today. He has large stool output. No signs of renal recovery. Review of Systems General Constitutional: Fever General Remarks nods head no when asked about pain or SOB. Musculoskeletal MS Remarks generalized pain Objective Data Data 09/26/16 09/27/16 19:00 07:00 Intake Total 780 ml 1315 ml Output Total 560 ml 575 ml Balance 220 ml 740 ml IV Total 200 ml 305 ml Tube Feeding 420 ml 890 ml Tube Irrigant 120 ml Other 160 ml Output Urine Total 0 ml 0 ml Stool Total 550 ml 575 ml Drainage Total 10 ml 0 ml Vital Signs Date Time Temp Pulse Resp B/P Pulse Ox O2 Delivery O2 Flow Rate FiO2 09/27/16 06:00 105 09/27/16 04:18 100 40 09/27/16 04:00 116 09/27/16 04:00 98.4 116 22 128/81 100 09/27/16 04:00 40 09/27/16 02:00 116 09/27/16 00:00 40 09/27/16 00:00 99.1 124 19 149/98 100 09/27/16 00:00 124 09/26/16 23:52 100 40 09/26/16 22:00 120 09/26/16 20:08 100 40 09/26/16 20:00 40 09/26/16 20:00 99.3 129 20 141/93 100 09/26/16 20:00 129 09/26/16 18:00 118 09/26/16 16:27 96 40 09/26/16 16:00 40 09/26/16 16:00 98.1 117 18 136/79 99 09/26/16 16:00 120 09/26/16 14:00 118 09/26/16 13:48 40 09/26/16 13:05 20 09/26/16 12:10 96 40 09/26/16 12:00 120 09/26/16 12:00 98.2 107 20 136/82 98 09/26/16 12:00 40 09/26/16 10:00 118 09/26/16 08:34 40 09/26/16 08:34 100 40 09/26/16 08:00 120 09/26/16 08:00 98.2 121 19 138/88 99 09/26/16 08:00 40 -: 09/27/16 0436 09/27/16 0436 Tubes & Lines: Vas-Cath Tubes & Lines Comment trach TLC, NG tube (R) SERGEI drain RLQ epigastric drain wound vac lower abdomen Drip Comment none Physical Exam General Appearance: Well Developed, No Acute Distress Throat Throat Exam: Oral Mucosa [place] & Moist Pulmonary Resp Exam: Breath Sounds Equal, No Distress, Crackles, Sputum, Diminished Breath Sounds Cardiology CV Exam: Regular, Normal Sinus Rhythm Gastrointestinal/Abdomen GI Exam: Distended Musculoskeletal MS Exam: Joints Intact, Atrophy, Unable to Ambulate Integumentary Skin Exam: Warm, Dry Extremeties Extremities Exam: No Edema, Pedal Pulses Palpable Neurologic Neuro Exam: Alert, Awake, Moving All Extremities VTE Prophylaxis Device: SCDs Assessment/Plan Discussed Condition With: Patient Assessment Summary: VIRIDIANA/Acute Renal Failure, Acute Tubular Necrosis, Hypertension Problem List: (1) Acute renal failure Plan: He has developed ATN due to sepsis. Dialysis initiated 3/3 remains Oligoanuric Dialysis today. s/p left subclavian vascath placement / daily renal panel, await renal recovery. Avoid nephrotoxic agents. (2) Sepsis Plan: ID following. Now on Aztreonam, Flagyl, Tobramycin nebulizer. Levaquin stopped. Problem Qualifiers (1) Acute renal failure: Qualified Code: N17.0 - Acute renal failure with tubular necrosis Tito Kuo MD Sep 27, 2016 07:31
[2016-09-27 07:41] LABS: BANDS 6 % (0-6); BASOPHILS 1 % (0-2); EOSINOPHILS 1 % (0-4); METAMYELOCYTES 3 % (0-1); NEUTROPHIL # MANUAL DIFF 12.9 TH/MM3 (1.8-7.7); POLYS (SEG NEUTROPHILS) 70 % (16-70); WBC DIFF SAMPLE 100
[2016-09-27 07:43] LABS: PLATELET ESTIMATE SMEAR NORMAL (NORMAL); PLATELET MORPHOLOGY NORMAL (NORMAL); SCAN/DIFF FINAL DIFF MANUAL
--- NOTE | 2016-09-27 07:43 | HHI.CCPN ---
Subjective Remarks/Hospital Course 08/25: Patient is a 58-year-old male with past medical history significant COPD who, on 08/18/16, underwent Laparoscopic robotic extensive lysis of adhesions, low anterior resection and small bowel resection. Apparently he was brought in by Dr. Moffett for Diverticulitis. Patient has a history of hypertension, COPD, and continues to smoke one pack of cigarettes a day. Postoperatively patient became progressively short of breath. Pulmonary was consulted on 08/21/16 as the patient was becoming more hypoxemic requiring BiPAP. CT of the chest PE protocol did not show any pulmonary embolism. Patient was placed on breathing treatments and IV Solu-Medrol 40 mg every [address] Renteria. Today a.m. patient was on 100% nonrebreather. Patient was diagnosed with an anastomotic leak today and was taken back to the OR by Dr. Moffett. He underwent exploratory laparotomy, I&D and loop ileostomy today. Postop patient remained hypoxemic requiring 70% oxygen, and hence was left intubated and critical care medicine was consulted. Dr. Arce evaluated the patient in ICU. He remained hypoxemic, FiO2 70%. Chest x-ray shows bibasilar mild infiltrates. On sedation lightening patient became very hypertensive, not following commands probably secondary to residual NM blockade received while being transported to ICU. Patient on receiving vancomycin Levaquin and Flagyl per Dr. Moffett. Dr. Arce added cefepime to cover for Pseudomonas. Holding Solu-Medrol due to anastomotic leak. 08/26: Remains sedated, orally intubated on mechanical ventilation. Went into anuric renal failure yesterday which did not respond to fluid boluses and diuretics hence was started on hemodialysis after placement of right IJ Vas- Cath. Currently sedated, arousable, remains orally intubated on mechanical ventilation. Blood pressure borderline last evening following dialysis for which she was started on low-dose vasopressin 0.03 units per minute and Levophed which is currently at 1 jose per minute. Started on TPN last night following which he has been hyperglycemic. 08/27: Sedated, arousable, orally intubated on mechanical ventilation. Spiking fevers overnight. Off Levophed, transiently off vasopressin. Remains on TPN. 08/28: Remains sedated, arousable, orally intubated on mechanical ventilation. On low-dose vasopressin. TPN continues. Made about 500 cc of urine in the last 24 hours. 08/29: In sedated, arousable, orally intubated on mechanical ventilation. Remains on TPN. Dirty drainage from left-sided SERGEI drain noted overnight. Dr. Moffett obtaining CT abdomen pelvis with oral contrast and ID consulted. 08/30: CURRENT TEMPERATURE 99. Status post 4 L hemodialysis today. No current change in therapy. White blood cell count remained stable. Off vasopressors. Arousable to voice. Versed has been discontinued. We'll attempt CPAP trials again today. 08/31: MAXIMUM TEMPERATURE 100.4. Currently 100.1. Currently resting in bed in no acute distress. Continues with scant drainage from bilateral JPs. We'll attempt CPAP trial again today. Positive stool from ostomy bag 09/01: Tmax 99.8. Currently 99.3. Placement of the new right IJ vas catheter today. Plan for IR to possibly drain right lower quadrant fluid collection. Arousable and moves all 4 extremity spontaneously. 09/02: Currently afebrile. Noted placement of iron drain with accordion drain. Growing Pseudomonas. Lasted only 2 hours on CPAP trials today. 09/03: Tolerated SBT for only 30 mins and required PS 20. Not ready to extubate. 09/04: Tachypnea related to anxiety? or metabolic acidosis. Will check VBG. Not tolerating SBT. Anemia. Transfuse during HD. 09/05: Remains very tachypneic on SBTs. Unable to extubate. 09/06: Leukocytosis and bandemia. Acts like ongoing sepsis. 09/07: No significant changes. Afebrile. Tolerating TFs as recommended by CRS. Will transition from TPN to enteral feeds now. 09/08: Bandemia persists. Tolerating full TFs. D/c'd TPN. Glucose control acceptable. 09/09: Tolerating longer CPAP/PS trials. 09/10: Stronger respiratory effort. Try to extubate today. 09/11: Stable hemodynamics, marginal respiratory function. 09/11 update 1800 hrs: Patient developed sudden hyperventilation to 55-60/min, hypertensive urgency to 220/120s, unresponsive state, started versed 10 mg/hr after 10 mg iv. Load with cerebyx, get head CT, EEG in a.m. 09/12: BP and pulse rate control improved with sedation. Etiology unclear. Suspected intracranial process but CT head normal. Possibly seizures. EEG pending this morning. WBC with bandemia persists. 09/13: CURRENT TEMPERATURE 99. Heart rate and blood pressure control. Noted T changes last night noted a potassium 8.2. Noted hemodialysis catheter placed by overnight dough molder hand in right femoral vein and hemodialysis currently undergoing. Plan for drainage of epigastric fluid collection by IR today. 09/14: Currently afebrile. Status post prior drainage of epigastric fluid area. Currently 60 ccwhite pus accordian drain. Status post bronchoscopy yesterday. 09/15 - intubation day #22. Family waiting another 24 hours to consider tracheostomy. He is not able to be extubated. Currently undergoing hemodialysis. Likely dialysis dependent. 09/16: Tmax 100.2. Blood pressure slowly trending downward. He transfuse PRBCs and albumin bolus prior to hemodialysis today. Intubation day #23. Family currently agreeable to tracheostomy but I'm unable to perform until Sunday. Positive BM. 09/17: Tmax 101. Intubation day #24. Tolerating tube feeding. Currently on Versed and fentanyl drips. 09/18: Remains sedated, orally intubated on mechanical ventilation. Scheduled for percutaneous tracheostomy today. Was dialyzed yesterday. Percutaneous drains [address] Ileostomy with good output. Wound VAC in place over anterior abdominal incision site. 09/19: Remains sedated, on mechanical ventilation via tracheostomy. Patient was noted to have some blood oozing from around tracheostomy site this morning as well as around Vas-Cath. Pressure dressing to be applied around Vas-Cath and packing around tracheostomy site and Dr. Howard informed. 09/20: Remains on fentanyl. On mechanical ventilation via tracheostomy. Continues to have fevers. No further bleeding from tracheostomy site or Vas- Cath site. 09/21: Remains on mechanical ventilation via tracheostomy. Resuming subcutaneous heparin today. No further bleeding from Vas-Cath or tracheostomy site. 09/22: Remains on mechanical ventilation, daily C Pap trials. Awake and alert this morning, following commands. 09/23: Tmax 100.2. Currently afebrile. Some oozing from hemodialysis catheter/ left IJ today. Plan for -2 L. Currently on mechanical ventilation while on hemodialysis. Awake and alert and following commands. 09/24: MAXIMUM TEMPERATURE 100.4. Currently afebrile. Noted hyperkalemia this am. Protocol initiated. Will recheck potassium in 3 hours. Awake and alert and following commands. 09/25: Tmax 101.1. Positive BM overnight likely secondary to Kayexalate provided for hyperkalemia. Received hemodialysis and likely will need to receive again today due to hypercatabolic state. Arousable on the ventilator and follows commands. 09/26: Awake and alert, following commands. Remains on mechanical ventilation via tracheostomy. Wound VAC in place over anterior abdominal wall incision site. Ileostomy functional. Tolerating tube feeds. Subjective 09/27: Remains awake and alert, following commands. On mechanical ventilation via tracheostomy. Daily C Pap trials. Tolerating tube feeds. Ileostomy functional. Patient will require PEG tube when okay with colorectal surgery. Wound VAC remains in place over the lower part of surgical incision site over anterior abdominal wall. Objective Vital Signs Date Time Temp Pulse Resp B/P Pulse Ox O2 Delivery O2 Flow Rate FiO2 09/27/16 06:00 105 09/27/16 04:18 100 40 09/27/16 04:00 98.4 22 128/81 09/25/16 08:20 Ventilator Intake and Output 09/26/16 09/26/16 09/27/16 08:00 16:00 00:00 Intake Total 909 ml 780 ml 581 ml Output Total 430 ml 560 ml 275 ml Balance 479 ml 220 ml 306 ml Result Diagram: 09/27/16 0436 09/27/16 0436 Imaging Last Impressions Chest X-Ray 09/24/16 0600 Signed Impressions: Service Date/Time: Saturday, September 24, 2016 03:23 - CONCLUSION: Stable chest x-ray with underinflation and atelectasis at the bases and stable mild airspace opacity at the right base. Claude Carrasco MD Abdomen/Pelvis CT 09/23/16 0000 Signed Impressions: Service Date/Time: Friday, September 23, 2016 15:22 - CONCLUSION: 1. Reduction in size of the hypodense fluid collection in the hepatogastric space with no residual hypodensity seen.. Stable position to be indwelling drainage catheter. 2. Decreasing size lower lung infiltrates. 3. Interval removal of right lower quadrant drain and interval development of a small to moderate size amount of fluid in the cul-de-sac. Evelio Boyd MD Upper Extremity Ultrasound 09/17/16 0000 Signed Impressions: Service Date/Time: Saturday, September 17, 2016 16:48 - CONCLUSION: 1. Positive nonocclusive deep venous thrombosis right internal jugular vein. 2. Nonocclusive superficial thrombosis in the left cephalic vein. Miki Banerjee MD Lower Extremity Ultrasound 09/17/16 0000 Signed Impressions: Service Date/Time: Saturday, September 17, 2016 17:33 - CONCLUSION: Normal examination. Miki Banerjee MD Head CT 09/17/16 0000 Signed Impressions: Service Date/Time: Saturday, September 17, 2016 20:47 - CONCLUSION: 1. No acute intracranial abnormalities. Miki Banerjee MD Chest CT 09/17/16 0000 Signed Impressions: Service Date/Time: Saturday, September 17, 2016 20:46 - CONCLUSION: 1. Multifocal airspace consolidation in the lungs, right greater than left most characteristic of bronchopneumonia. There is underlying mild to moderate emphysema. Small effusions. Miki Banerjee MD Abscess Drainage CT 09/13/16 0000 Signed Impressions: Service Date/Time: Tuesday, September 13, 2016 14:30 - CONCLUSION: Uncomplicated CT guided drainage. Carlo Cortes MD Retroperitoneal Abscess Drainage 09/01/16 0600 Signed Impressions: Service Date/Time: Thursday, September 01, 2016 13:05 - CONCLUSION: Uncomplicated CT guided drainage of a right lower quadrant fluid collection. Approximately 75 cc of fecal-like brown material was aspirated. The air and fluid collection may communicate with the inferior aspect of the midline wound on the anterior abdominal wall. Claude Carrasco MD Abdomen X-Ray 08/24/16 0000 Signed Impressions: Service Date/Time: August 07:44 - CONCLUSION: Gaseous distention of multiple bowel loops possible ileus. Jony Miller MD Enema w/Water Soluble 08/23/16 0000 Signed Impressions: Service Date/Time: Tuesday, August 23, 2016 10:12 - CONCLUSION: Anastomosis appears patent without extravasation. Aditya Rocha MD FACR CT Angiography 08/21/16 0000 Signed Impressions: Service Date/Time: Sunday, August 21, 2016 14:05 - CONCLUSION: 1. There is no evidence for central pulmonary emboli. 2. Minimal subcutaneous air as well as free intraperitoneal air. Aditya Rocha MD FACR Objective Remarks GENERAL: 56-year-old male, currently on mechanical ventilation via tracheostomy SKIN: Warm. Dry. No rash HEAD: Atraumatic. Normocephalic. ENT: mucosa moist NECK: Tracheostomy in place. CARDIOVASCULAR: Tachy, RR. S1, S2. No S4. No m/c/g/r. RESPIRATORY: On mechanical ventilation, scattered rhonchi appreciated in all lung nesbitt, no wheezing. GASTROINTESTINAL: Abdomen non distended. Midline incision clean and intact, wound VAC in place. BS active. Ostomy pink with brown stool. MUSCULOSKELETAL: Extremities with trace positive bilateral upper and lower extremity edema, well perfused. NEUROLOGICAL: Awake and alert and interactive. Moves all 4 extremities spontaneously. Date of Insertion: Aug 31, 2016 Date of Removal: Sep 12, 2016 Side: Right A/P Assessment and Plan NEURO/PSYCH: History of anxiety Acute toxic metabolic encephalopathymultifactorial Acetaminophen for fever Haldol 1 mg every 4 hours when necessary Ativan 0.5 mg every one hour when necessary agitation Morphine sulfate 3 milligrams IV every 3 hours when necessary pain -Off sedative drips, follow neuro status. -Head CT 09/11 no acute intracranial findings -EEG 09/12 revealed mild to moderate encephalopathy. No epileptiform activity. Currently on Cerebyx 300 mg liquid at night. Level 5.7 on 09/18, 3.5 on 09/26 RESP: Acute hypoxemic respiratory failure COPD exacerbation Probable healthcare associated pneumonia -Continue ACV 22/600 0.75/5/40 Ventilator bundle -Albuterol nebs every 4 hours scheduled and when necessary duo nebs, Symbicort 2 puffs every 12 was discontinued while in ventilator. Continue Pulmicort 0.5/2 twice a day -Broad-spectrum antibiotics as below -Continue daily C Pap trials. Dr. Renteria/Pulmonary following Increase SBTs length as able. s/p tracheostomy 09/18 CV: Hypotension secondary to septic shock resolved History of hypertension Anuria necessitating hemodialysis. Off all vasopressors Currently on clonidine 0.1 3 times a day, Norvasc 5 mg twice a day and Coreg 3.125 twice a day. Labetalol prn GI/ Nutrition: Anastomotic leak status post exploratory laparotomy, I&D, loop ileostomy 08/24/16 s/p Laparoscopic robotic extensive ANNA MARIE, robotic LAR and small bowel resection Laparoscopic robotic ANNA MARIE, robotic LAR and small bowel resection with anastomotic leak History of diverticulitis -Status post exploratory laparotomy, I&D, loop ileostomy 08/24/16 -Postoperative management per Dr. Moffett. Broad-spectrum antibiotics as below. positive ostomy output - On Reglan to improve GI motility On Glucerna 1.5 goal 60 cc an hour. Protonix for GI prophylaxis Wound VAC with purulent drainage 150 cc. Accordion to epigastric drain with purulent drainage [address] abdomen/pelvis 09/23 revealed decreased fluid in the hepatogastric region. Removal of interval drains. Small to moderate fluid in the cul-de-sac. Renal/: Acute kidney injury History BPH Status post bilateral ureteral stents placed by Dr. Fraser 08/18 -Monitor renal function closely. Mg catheter. -IV fluids discontinued in view of anuric renal failure and hyperkalemia necessitating hemodialysis. Nephrology consulted and following. -Attempt maintaining even to slightly negative fluid balance. New right IJ hemodialysis catheter placed 09/01 -> D/C 09/13. New right femoral hemodialysis catheter placed 09/13 -> D/C 09/19 New LIJ vascath placed 09/18 -> D/C 09/25 New Left Subclavian vascath placed 09/26 ID: Anastomotic leak Sepsis Probable HCAP Current regimen is Flagyl 500 mg IV every 6 hours, Diflucan 200 mg IV 24 hours and aztreonam 500 mg IV every 12 hours. Also tobramycin aerosols twice a day and pulse dose of vancomycin. Levaquin stopped. Pertinent culture 09/20 - wound - Pseudomonas and Iram Alb and Paropsilosis 09/17 - sputum - Pseudomonas 09/17 - blood cultures 2- no growth 09/13 - bronchial -Pseudomonas 09.13 - abdomen abscess -Pseudomonas/yeast 09/01: Abdominal wound - Pseudomonas, enterococcus, Iram 08/31 - line culture Pseudomonas/coag negative staph 08/31 - blood cultures 2 -no growth 08/31 - sputum - pending 08/29 - wound - Pseudomonas, group D enterococcus, C. albicans and yeast 08/25 blood cultures - no growth 08/25 sputum - Serratia/Klebsiella/Pseudomonas 08/24 - wound - no growth HEME: Leukocytosis Normocytic anemia Thrombocytosis RIJ DVT (nonocclusive) Left cephalic superficial thrombus -Monitor CBC, CMP, coags - On anticoagulation with heparin (for right IJ nonocclusive thrombus/ left cephalic vein) which was put on hold since 09/11 for tracheostomy. Started subcutaneous heparin on 09/21 and if no bleeding will consider advancing to full anticoagulation. ENDO: -Sliding-scale insulin with Accu-Cheks every 6 hours for glycemic control. Levemir 20 units twice a day currently on hold FEN: Hyperphosphatemia Hyperkalemia Continue PhosLo 1334 mg 3 times a day for hyperphosphatemia. Hemodialysis per renal. Received D50/insulin/bicarbonate/Kayexalate on 09/25 for hyperkalemia. PROPH: -Bilateral lower extremity SCDs. Heparin gtt for RIJ DVT (held 09/18 for scheduled trach). Currently on heparin subcutaneous Protonix for GI prophylaxis LINES: -Left subclavian central line placed in the OR 08/24 - 08/31. Right subclavian central line placed 08/31 - 09/11 - RIJ dialysis catheter 08/25 -08/31. New right IJ hemodialysis catheter 09/01 - - Right femoral hemodialysis catheter 09/13 - 09/19 New LIJ vascath placed 09/18 -> D/C 09/25 New Left Subclavian vascath placed 09/26 I called Natalia (pt's family) on 09/26 and and got her voice mail. Left message to call back. Patient will need LTAC placement-case management consulted. Await clearance from colorectal surgery for PEG tube placement and eventual transfer to LTAC. Satya Quarles MD Sep 27, 2016 07:43
[2016-09-27] MEDS: RESP: TOBRAMYCIN SULFATE 300 MG/5 ML NEB NEB SCH ×2 (08:31→19:54)
[2016-09-27] MEDS: RESP: BUDESONIDE 0.5 MG/2 ML NEB NEB SCH ×2 (08:31→19:53)
[2016-09-27] MEDS: LACTOBACILLUS ACIDOPHILUS TAB NG SCH ×3 (10:48→18:13)
[2016-09-27] MEDS: amLODIPine BESYLATE 5 MG TAB PO SCH ×2 (10:48→20:26)
[2016-09-27] MEDS: CARVEDILOL 3.125 MG TAB PO SCH ×2 (10:48→20:26)
[2016-09-27] MEDS: PANTOPRAZOLE SODIUM 40 MG VIAL IVP SCH (10:48)
[2016-09-27] MEDS: MUPIROCIN 2% OINT 1 APPLIC/GM SYR EACH NARE SCH ×2 (10:49→20:25)
[2016-09-27] MEDS: SODIUM CHLORIDE 0.9% FLUSH 5 ML FLUSH IVF SCH ×2 (10:49→20:26)
[2016-09-27] MEDS: CALCIUM ACETATE 667 MG CAP PO SCH ×3 (10:50→18:13)
[2016-09-27] MEDS: CHLORHEXIDINE 0.12% (ORAL KIT) 15 ML CUP MT SCH ×2 (10:50→20:25)
--- NOTE | 2016-09-27 10:51 | HHI.IDPN ---
Subjective Subjective Remarks ID COVERAGE Patient is a 56-year-old male, admitted to the hospital initially for surgery. He has chronic diverticulitis with extension to the small bowel. He underwent surgery August 19 and had laparoscopic, robotic extensive lysis of adhesions, low anterior resection, and small bowel resection. On August 24 he developed anastomotic leak, and underwent repeat surgery and had exploratory laparotomy, irrigation and diverging loop sigmoid colostomy. On September 02 he developed wound dehiscence in the lower midline incision, and it was felt that it had fascial dehiscence. Wound VAC was started at that time. More recently he was found to have a retroperitoneal abscess, and a percutaneous drain was placed on September 01. Patient has been treated for gram-negative pneumonia. The retroperitoneal abscess culture has grown Pseudomonas, enterococcus, and Iram glabrata. Patient has required ventilatory support. Patient also has developed renal failure, and has been undergoing hemodialysis. His WBC remains elevated. Notes reviewed Temps ok WBC decreasing BP good For HD Colostomy working Has wound vac in lower midline incision Has trach Has new vascath placed 09/25 No other central line 09/20 Fluid with C albicans and C parapsilosis 09/20 SERGEI right PSAE 09/17 Sputum PSAE 09/17 2 BC negative Antibiotics azactam flagyl fluconazole Lines HD cath site ok. Past Medical History 1. Diverticulitis. 2. COPD. 3. Hypertension. 4. Anxiety disorder. 5. BPH. 6. History of tonsillectomy. Allergies: Coded Allergies: *MDRO Multi-Drug Resistant Organism (Verified Adverse Reaction, Unknown, ) MDR-Pseudomonas (sputum)-09/17/16 Objective . Vital Signs Date Time Temp Pulse Resp B/P Pulse Ox O2 Delivery O2 Flow Rate FiO2 09/27/16 08:34 100 40 09/27/16 06:00 105 09/27/16 04:18 100 40 09/27/16 04:00 116 09/27/16 04:00 98.4 116 22 128/81 100 09/27/16 04:00 40 09/27/16 02:00 116 09/27/16 00:00 40 09/27/16 00:00 99.1 124 19 149/98 100 09/27/16 00:00 124 09/26/16 23:52 100 40 09/26/16 22:00 120 09/26/16 20:08 100 40 09/26/16 20:00 40 09/26/16 20:00 99.3 129 20 141/93 100 09/26/16 20:00 129 09/26/16 18:00 118 09/26/16 16:27 96 40 09/26/16 16:00 40 09/26/16 16:00 98.1 117 18 136/79 99 09/26/16 16:00 120 09/26/16 14:00 118 09/26/16 13:48 40 09/26/16 13:05 20 09/26/16 12:10 96 40 09/26/16 12:00 120 09/26/16 12:00 98.2 107 20 136/82 98 09/26/16 12:00 40 09/26/16 09/26/16 09/27/16 15:00 23:00 07:00 Intake Total 780 ml 581 ml 734 ml Output Total 560 ml 275 ml 300 ml Balance 220 ml 306 ml 434 ml IV Total 200 ml 0 ml 305 ml Tube Feeding 420 ml 521 ml 369 ml Tube Irrigant 60 ml 60 ml Other 160 ml Output Urine Total 0 ml 0 ml Stool Total 550 ml 275 ml 300 ml Drainage Total 10 ml 0 ml 0 ml . Laboratory Tests Test 09/26/16 09/27/16 03:10 04:36 White Blood Count 18.0 TH/MM3 16.3 TH/MM3 Red Blood Count 3.16 MIL/MM3 3.03 MIL/MM3 Hemoglobin 9.3 GM/DL 8.4 GM/DL Hematocrit 27.2 % 26.3 % Mean Corpuscular Volume 86.2 FL 86.9 FL Mean Corpuscular Hemoglobin 29.4 PG 27.9 PG Mean Corpuscular Hemoglobin 34.1 % 32.1 % Concent Red Cell Distribution Width 16.6 % 16.4 % Platelet Count 449 TH/MM3 414 TH/MM3 Mean Platelet Volume 8.3 FL 8.1 FL Neutrophils (%) (Auto) 68.1 % 69.2 % Lymphocytes (%) (Auto) 15.6 % 14.5 % Monocytes (%) (Auto) 13.0 % 12.8 % Eosinophils (%) (Auto) 1.3 % 1.6 % Basophils (%) (Auto) 2.0 % 1.9 % Neutrophils # (Auto) 12.2 TH/MM3 11.3 TH/MM3 Lymphocytes # (Auto) 2.8 TH/MM3 2.4 TH/MM3 Monocytes # (Auto) 2.3 TH/MM3 2.1 TH/MM3 Eosinophils # (Auto) 0.2 TH/MM3 0.3 TH/MM3 Basophils # (Auto) 0.4 TH/MM3 0.3 TH/MM3 CBC Comment AUTO DIFF AUTO DIFF Differential Total Cells 100 100 Counted Neutrophils % (Manual) 62 % 70 % Band Neutrophils % 10 % 6 % Lymphocytes % 9 % 10 % Monocytes % 10 % 9 % Eosinophils % 3 % 1 % Basophils % 2 % 1 % Neutrophils # (Manual) 13.7 TH/MM3 12.9 TH/MM3 Metamyelocytes 3 % 3 % Myelocytes 1 % Differential Comment FINAL DIFF FINAL DIFF MANUAL MANUAL Platelet Estimate NORMAL NORMAL Platelet Morphology Comment NORMAL NORMAL Red Cell Morphology Comment NORMAL Laboratory Tests Test 09/26/16 09/27/16 03:10 04:36 Sodium Level 141 MEQ/L 138 MEQ/L Potassium Level 4.2 MEQ/L 4.4 MEQ/L Chloride Level 99 MEQ/L 99 MEQ/L Carbon Dioxide Level 30.3 MEQ/L 25.5 MEQ/L Anion Gap 12 MEQ/L 14 MEQ/L Blood Urea Nitrogen 48 MG/DL 74 MG/DL Creatinine 3.77 MG/DL 5.35 MG/DL Estimat Glomerular Filtration 17 ML/MIN 11 ML/MIN Rate Random Glucose 146 MG/DL 125 MG/DL Calcium Level 9.7 MG/DL 9.9 MG/DL Phosphorus Level 3.9 MG/DL 6.0 MG/DL Magnesium Level 1.9 MG/DL Total Bilirubin 0.8 MG/DL 0.7 MG/DL Aspartate Amino Transf 36 U/L 32 U/L (AST/SGOT) Alanine Aminotransferase 19 U/L 19 U/L (ALT/SGPT) Alkaline Phosphatase 261 U/L 233 U/L Total Protein 8.8 GM/DL 8.4 GM/DL Albumin 2.5 GM/DL 2.4 GM/DL Imaging Last Impressions Chest X-Ray 09/25/16 1247 Signed Impressions: Service Date/Time: Sunday, September 25, 2016 13:03 - CONCLUSION: Satisfactory dialysis catheter placement. No pneumothorax. Claude Rosario MD Abdomen/Pelvis CT 09/23/16 0000 Signed Impressions: Service Date/Time: Friday, September 23, 2016 15:22 - CONCLUSION: 1. Reduction in size of the hypodense fluid collection in the hepatogastric space with no residual hypodensity seen.. Stable position to be indwelling drainage catheter. 2. Decreasing size lower lung infiltrates. 3. Interval removal of right lower quadrant drain and interval development of a small to moderate size amount of fluid in the cul-de-sac. Evelio Boyd MD Upper Extremity Ultrasound 09/17/16 0000 Signed Impressions: Service Date/Time: Saturday, September 17, 2016 16:48 - CONCLUSION: 1. Positive nonocclusive deep venous thrombosis right internal jugular vein. 2. Nonocclusive superficial thrombosis in the left cephalic vein. Miki Banerjee MD Lower Extremity Ultrasound 09/17/16 0000 Signed Impressions: Service Date/Time: Saturday, September 17, 2016 17:33 - CONCLUSION: Normal examination. Miki Banerjee MD Head CT 09/17/16 0000 Signed Impressions: Service Date/Time: Saturday, September 17, 2016 20:47 - CONCLUSION: 1. No acute intracranial abnormalities. Miki Banerjee MD Chest CT 09/17/16 0000 Signed Impressions: Service Date/Time: Saturday, September 17, 2016 20:46 - CONCLUSION: 1. Multifocal airspace consolidation in the lungs, right greater than left most characteristic of bronchopneumonia. There is underlying mild to moderate emphysema. Small effusions. Miki Banerjee MD Abscess Drainage CT 09/13/16 0000 Signed Impressions: Service Date/Time: Tuesday, September 13, 2016 14:30 - CONCLUSION: Uncomplicated CT guided drainage. Carlo Cortes MD Retroperitoneal Abscess Drainage 09/01/16 0600 Signed Impressions: Service Date/Time: Thursday, September 01, 2016 13:05 - CONCLUSION: Uncomplicated CT guided drainage of a right lower quadrant fluid collection. Approximately 75 cc of fecal-like brown material was aspirated. The air and fluid collection may communicate with the inferior aspect of the midline wound on the anterior abdominal wall. Claude Carrasco MD Abdomen X-Ray 08/24/16 0000 Signed Impressions: Service Date/Time: August 07:44 - CONCLUSION: Gaseous distention of multiple bowel loops possible ileus. Jony Miller MD Enema w/Water Soluble 08/23/16 0000 Signed Impressions: Service Date/Time: Tuesday, August 23, 2016 10:12 - CONCLUSION: Anastomosis appears patent without extravasation. Aditya Rocha MD FACR CT Angiography 08/21/16 0000 Signed Impressions: Service Date/Time: Sunday, August 21, 2016 14:05 - CONCLUSION: 1. There is no evidence for central pulmonary emboli. 2. Minimal subcutaneous air as well as free intraperitoneal air. Aditya Rocha MD FACR Physical Exam GENERAL: Awake, responsive, on the vent, NAD SKIN: Warm, dry, no rash HEENT: [place] conjunctivae, no scleral icterus. NECK: No adenopathy or swelling. Trach in place, site ok LUNGS: Coarse breath sounds bilaterally, decreased at the bases. HEART: Regular rate and rhythm. No audible murmurs, rubs or gallops. ABDOMEN: Soft, not tender. Colostomy on R working well, Midline incision, has vac in lower portion. EXTREMITIES: No clubbing or cyanosis. Edema - small amount. Well-perfused NEUROLOGIC: Awake, following commands, + eye contact LINE: No evidence of infection Assessment & Plan Remarks IMPRESSION Sepsis. Pseudomonas on CVL culture of removed line. Peritonitis. Post abdominal surgery/Bowel resection - enterococcus, pseudomonas and yeast. - had drains previously, now removed - repeat CT better, though has more fluid in cul-de-sac, ?significance Pneumonia. pseudomonas ( resistant strain). - prob colonized by now - on aerosol Tobra Leukocytosis secondary to infection. Improving Acute renal failure, on HD Acute respiratory failure. Remains vent. dependent. - S/P trach Thrombosis R. internal Jugular vein. Fever persistent. Probably because of resistant organism. ? line vs intra abdominal infection vs PNA. - temps better RECOMMENDATIONS Continue fluconazole Continue Aztreonam since patient clinically better Continue Tobramycin nebulized. Continue Flagyl. Monitor white blood cell count. Monitor temps. Monitor progress Weaning per [facility] Wendy Young MD Sep 27, 2016 10:51
[2016-09-27] MEDS: AZTREONAM INJ 500 MG in SODIUM CHLORIDE 0.9% INJ 100 ML IV SCH ×3 (12:14)
--- NOTE | 2016-09-27 13:40 | HHI.PR ---
Subjective Remarks POD#40 s/p robotic LAR/SBR/ANNA MARIE, POD#32 s/p ex lap, washout, diverting loop ileostomy awakens easily, seems frustrated Objective Vital Signs Date Time Temp Pulse Resp B/P Pulse Ox O2 Delivery O2 Flow Rate FiO2 09/27/16 12:00 98.9 120 27 141/81 100 09/27/16 11:28 100 40 09/27/16 08:34 100 40 09/27/16 08:00 98.9 116 27 136/81 100 09/27/16 06:00 105 09/27/16 04:18 100 40 09/27/16 04:00 116 09/27/16 04:00 98.4 116 22 128/81 100 09/27/16 04:00 40 09/27/16 02:00 116 09/27/16 00:00 40 09/27/16 00:00 99.1 124 19 149/98 100 09/27/16 00:00 124 09/26/16 23:52 100 40 09/26/16 22:00 120 09/26/16 20:08 100 40 09/26/16 20:00 40 09/26/16 20:00 99.3 129 20 141/93 100 09/26/16 20:00 129 09/26/16 18:00 118 09/26/16 16:27 96 40 09/26/16 16:00 40 09/26/16 16:00 98.1 117 18 136/79 99 09/26/16 16:00 120 09/26/16 14:00 118 09/26/16 13:48 40 I/O 09/26/16 09/26/16 09/26/16 09/27/16 09/27/16 09/27/16 07:00 15:00 23:00 07:00 15:00 23:00 Intake Total 909 ml 780 ml 581 ml 734 ml 100 ml Output Total 430 ml 560 ml 275 ml 300 ml 270 ml Balance 479 ml 220 ml 306 ml 434 ml -170 ml IV Total 386 ml 200 ml 0 ml 305 ml Tube Feeding 423 ml 420 ml 521 ml 369 ml Tube Irrigant 60 ml 60 ml Other 100 ml 160 ml 100 ml Output Urine Total 0 ml 0 ml 0 ml Stool Total 400 ml 550 ml 275 ml 300 ml 270 ml Drainage Total 30 ml 10 ml 0 ml 0 ml Result Diagram: 4/5/17 0436 09/27/16 0436 Objective Remarks Abdomen soft Wounds clean Epigastric drain out Assessment and Plan Assessment and Plan CV - BP stable RESP -comfortable KIDNEY - still anuric,continue HD FEN - tolerating TF's ID - WBC coming down, afebrile for more than 24 hours Aggressive PT - spoke to Elana Stuart MD Sep 27, 2016 13:39
[2016-09-27] MEDS: PHENYTOIN SUSP 100 MG/4 ML CUP PO SCH (20:26)
--- NOTE | 2016-09-27 21:11 | HHI.PR ---
Subjective Remarks YOAA male with robotic surgery,COPD exac Underwent exp lap,I&d and loop iliostomy placement Remains on vent Had Trach no fever Tolerated CPAP, now on vent Objective Vital Signs Vital Signs Date Time Temp Pulse Resp B/P Pulse Ox O2 Delivery O2 Flow Rate FiO2 09/27/16 19:54 100 40 09/27/16 18:00 115 09/27/16 16:34 100 40 09/27/16 16:00 99.1 117 30 126/78 100 09/27/16 16:00 40 09/27/16 16:00 117 09/27/16 14:00 108 09/27/16 12:00 120 09/27/16 12:00 40 09/27/16 12:00 98.9 120 27 141/81 100 09/27/16 11:28 100 40 09/27/16 10:00 126 09/27/16 08:34 100 40 09/27/16 08:00 105 09/27/16 08:00 98.9 116 27 136/81 100 09/27/16 08:00 40 09/27/16 06:00 105 09/27/16 04:18 100 40 09/27/16 04:00 116 09/27/16 04:00 98.4 116 22 128/81 100 09/27/16 04:00 40 09/27/16 02:00 116 09/27/16 00:00 40 09/27/16 00:00 99.1 124 19 149/98 100 09/27/16 00:00 124 09/26/16 23:52 100 40 09/26/16 22:00 120 I/O 09/26/16 09/26/16 09/26/16 09/27/16 09/27/16 09/27/16 07:00 15:00 23:00 07:00 15:00 23:00 Intake Total 909 ml 780 ml 581 ml 734 ml 899 ml 60 ml Output Total 430 ml 560 ml 275 ml 300 ml 270 ml Balance 479 ml 220 ml 306 ml 434 ml 629 ml 60 ml IV Total 386 ml 200 ml 0 ml 305 ml 340 ml Tube Feeding 423 ml 420 ml 521 ml 369 ml 399 ml Tube Irrigant 60 ml 60 ml Other 100 ml 160 ml 160 ml 60 ml Output Urine Total 0 ml 0 ml 0 ml 0 ml Stool Total 400 ml 550 ml 275 ml 300 ml 270 ml Drainage Total 30 ml 10 ml 0 ml 0 ml 0 ml Result Diagram: 09/27/1643509/27/16435 Objective Remarks GENERAL: WBWN obese male, on Vent , sedated SKIN: Warm and dry. HEAD: Normocephalic. EYES: No scleral icterus. No injection or drainage. NECK: Supple, trachea midline. No JVD or lymphadenopathy. CARDIOVASCULAR: Regular rate and rhythm without murmurs, gallops, or rubs. RESPIRATORY: Breath sounds equal bilaterally. No accessory muscle use. exp rhonchi GASTROINTESTINAL: Abdomen soft, non-tender, Abd distended MUSCULOSKELETAL: No cyanosis, or edema. BACK: Nontender without obvious deformity. No CVA tenderness. A/P Assessment and Plan Resp Failure, on vent COPD exac S/p robotic surgery Anxiety S/p Exp lap PLAN: Cont vent support, aerosol nebs Nebuliser rx qid and prn Abx per ID Monitor lytes Cont ACV Daily CPAP trial Robbie Renteria MD Sep 27, 2016 21:11
[2016-09-27] MEDS: FLUCONAZOLE 200 MG PREMIX BAG 100 ML IV SCH ×2 (23:23)
[2016-09-27] MEDS: diphenhydrAMINE HCL 50 MG/ML VIAL IV PRN (23:45)
[2016-09-28] VITALS (16 sets, daily range): BP systolic 112–154; BP diastolic 64–85; PULSE 99–123; RESP 13–38; TEMP 98.3–98.8; O2SAT 96–100
[2016-09-28] MEDS: AZTREONAM INJ 500 MG in SODIUM CHLORIDE 0.9% INJ 100 ML IV SCH ×2 (00:30→12:27)
[2016-09-28] MEDS: HEPARIN SODIUM - SQ 10,000 UNITS/ML VIAL SQ SCH ×2 (02:13→09:27)
[2016-09-28] MEDS: RESP: ALBUTEROL 2.5 MG/3 ML NEB (SCH) INH ×6 (03:31→23:41)
[2016-09-28] MEDS: metroNIDAZOLE 500 MG INJ 100 ML IV SCH ×4 (05:14→22:53)
[2016-09-28] MEDS: ARTIFICIAL TEARS OPTH SOLN 15 ML BTL EACH EYE SCH ×3 (05:14→21:05)
[2016-09-28] MEDS: cloNIDine HCL 0.1 MG TAB PO SCH ×3 (05:14→20:35)
[2016-09-28] MEDS: INSULIN NovoLIN REGULAR SUPPLEMENTAL SCALE SQ SCH ×3 (05:39→17:52)
[2016-09-28] MEDS: RESP: BUDESONIDE 0.5 MG/2 ML NEB NEB SCH ×2 (07:36→20:19)
--- NOTE | 2016-09-28 08:42 | HHI.NPPN ---
Subjective General Problems: Edema Renal Failure: Acute Interval History had dialysis yesterday. Some improvement in urine output, but remains oliguric. Review of Systems General Constitutional: Fever General Remarks nods head no when asked about pain or SOB. Musculoskeletal MS Remarks generalized pain Objective Data Data 09/27/16 09/28/16 19:00 07:00 Intake Total 959 ml 1606 ml Output Total 270 ml 700 ml Balance 689 ml 906 ml Intake Oral 200 ml IV Total 340 ml 507 ml Tube Feeding 399 ml 799 ml Other 220 ml 100 ml Output Urine Total 0 ml 150 ml Stool Total 270 ml 550 ml Drainage Total 0 ml Vital Signs Date Time Temp Pulse Resp B/P Pulse Ox O2 Delivery O2 Flow Rate FiO2 09/28/16 07:39 100 40 09/28/16 06:00 103 09/28/16 04:00 40 09/28/16 04:00 102 09/28/16 04:00 98.5 102 20 137/76 100 09/28/16 03:31 100 40 09/28/16 02:00 113 09/28/16 00:00 110 09/28/16 00:00 40 09/28/16 00:00 98.7 110 21 112/64 100 09/27/16 23:40 100 40 09/27/16 22:00 106 09/27/16 20:00 98.9 120 28 138/78 100 09/27/16 20:00 120 09/27/16 20:00 40 09/27/16 19:54 100 40 09/27/16 18:00 115 09/27/16 16:34 100 40 09/27/16 16:00 99.1 117 30 126/78 100 09/27/16 16:00 40 09/27/16 16:00 117 09/27/16 14:00 108 09/27/16 12:00 120 09/27/16 12:00 40 09/27/16 12:00 98.9 120 27 141/81 100 09/27/16 11:28 100 40 09/27/16 10:00 126 -: 09/27/16 0436 09/27/16 0436 Tubes & Lines: Vas-Cath Tubes & Lines Comment trach TLC, NG tube (R) SERGEI drain RLQ epigastric drain wound vac lower abdomen Drip Comment none Physical Exam General Appearance: Well Developed, No Acute Distress Throat Throat Exam: Oral Mucosa [place] & Moist Pulmonary Resp Exam: Breath Sounds Equal, No Distress, Crackles, Sputum, Diminished Breath Sounds Cardiology CV Exam: Regular, Normal Sinus Rhythm Gastrointestinal/Abdomen GI Exam: Distended Musculoskeletal MS Exam: Joints Intact, Atrophy, Unable to Ambulate Integumentary Skin Exam: Warm, Dry Extremeties Extremities Exam: No Edema, Pedal Pulses Palpable Neurologic Neuro Exam: Alert, Awake, Moving All Extremities VTE Prophylaxis Device: SCDs Assessment/Plan Discussed Condition With: Patient Assessment Summary: VIRIDIANA/Acute Renal Failure, Acute Tubular Necrosis, Hypertension Problem List: (1) Acute renal failure Plan: He has developed ATN due to sepsis. Dialysis initiated 3/3 remains Oligoanuric Dialysis every other day. s/p left subclavian vascath placement 4/4 daily renal panel, await renal recovery. Avoid nephrotoxic agents. (2) Sepsis Plan: ID following. Now on Aztreonam, Flagyl, Tobramycin nebulizer. Levaquin stopped. Problem Qualifiers (1) Acute renal failure: Qualified Code: N17.0 - Acute renal failure with tubular necrosis Tito Kuo MD Sep 28, 2016 08:42
[2016-09-28] MEDS: MUPIROCIN 2% OINT 1 APPLIC/GM SYR EACH NARE SCH ×2 (09:00→20:27)
[2016-09-28] MEDS: LORazepam 2 MG/ML VIAL IV PUSH PRN ×3 (09:16→20:37)
[2016-09-28] MEDS: CHLORHEXIDINE 0.12% (ORAL KIT) 15 ML CUP MT SCH ×2 (09:24→20:00)
[2016-09-28] MEDS: SODIUM CHLORIDE 0.9% FLUSH 5 ML FLUSH IVF SCH ×2 (09:25→21:00)
[2016-09-28] MEDS: LACTOBACILLUS ACIDOPHILUS TAB NG SCH ×3 (09:26→17:35)
[2016-09-28] MEDS: SODIUM CHLORIDE 0.9% 10 ML VIAL IV FLUSH SCH ×2 (09:26→16:04)
[2016-09-28] MEDS: CARVEDILOL 3.125 MG TAB PO SCH ×2 (09:26→20:35)
[2016-09-28] MEDS: amLODIPine BESYLATE 5 MG TAB PO SCH ×2 (09:26→20:35)
[2016-09-28] MEDS: CALCIUM ACETATE 667 MG CAP PO SCH ×3 (09:26→17:35)
[2016-09-28] MEDS: PANTOPRAZOLE SODIUM 40 MG VIAL IVP SCH (09:26)
[2016-09-28] MEDS: RESP: TOBRAMYCIN SULFATE 300 MG/5 ML NEB NEB SCH ×2 (09:40→20:19)
[2016-09-28] MEDS ORDERED: LORazepam 2 MG/ML VIAL IV ONE (10:30)
--- NOTE | 2016-09-28 10:53 | HHI.PR ---
Subjective Remarks POD#41 s/p robotic LAR/SBR/NANA MARIE, POD#33 s/p ex lap, washout, diverting loop ileostomy awake, alert, responds to questions, breathing harder Objective Vital Signs Date Time Temp Pulse Resp B/P Pulse Ox O2 Delivery O2 Flow Rate FiO2 09/28/16 10:00 123 09/28/16 08:00 98.3 117 18 122/71 100 09/28/16 08:00 117 09/28/16 08:00 40 09/28/16 07:39 100 40 09/28/16 06:00 103 09/28/16 04:00 40 09/28/16 04:00 102 09/28/16 04:00 98.5 102 20 137/76 100 09/28/16 03:31 100 40 09/28/16 02:00 113 09/28/16 00:00 110 09/28/16 00:00 40 09/28/16 00:00 98.7 110 21 112/64 100 09/27/16 23:40 100 40 09/27/16 22:00 106 09/27/16 20:00 98.9 120 28 138/78 100 09/27/16 20:00 120 09/27/16 20:00 40 09/27/16 19:54 100 40 09/27/16 18:00 115 09/27/16 16:34 100 40 09/27/16 16:00 99.1 117 30 126/78 100 09/27/16 16:00 40 09/27/16 16:00 117 09/27/16 14:00 108 09/27/16 12:00 120 09/27/16 12:00 40 09/27/16 12:00 98.9 120 27 141/81 100 09/27/16 11:28 100 40 I/O 09/27/16 09/27/16 09/27/16 09/28/16 09/28/16 09/28/16 07:00 15:00 23:00 07:00 15:00 23:00 Intake Total 734 ml 899 ml 595 ml 1071 ml Output Total 300 ml 270 ml 150 ml 550 ml Balance 434 ml 629 ml 445 ml 521 ml Intake Oral 200 ml IV Total 305 ml 340 ml 149 ml 358 ml Tube Feeding 369 ml 399 ml 346 ml 453 ml Tube Irrigant 60 ml Other 160 ml 100 ml 60 ml Output Urine Total 0 ml 0 ml 0 ml 150 ml Stool Total 300 ml 270 ml 150 ml 400 ml Drainage Total 0 ml 0 ml Result Diagram: 09/27/1643509/27/16435 Objective Remarks Abdomen soft Wounds clean Stoma pink, functional Assessment and Plan Assessment and Plan CV - BP stable RESP -not tolerating CPAP, high resp rate - check BNP KIDNEY - some urine but still anuric,continue HD FEN - tolerating TF's, discussed Gtube with patient, will discuss with family ID - afebrile for more than 48 hours Elana Moffett MD Sep 28, 2016 10:52
[2016-09-28] MEDS ORDERED: HEPARIN SODIUM - IV 10,000 UNITS/10 ML VIAL IV ONE (11:30)
[2016-09-28 12:01] LABS: APTT (PATIENT) 25.9 SEC (24.3-30.1); PROTHROMBIN TIME - PATIENT 11.1 SEC (9.8-11.6)
[2016-09-28 12:23] LABS: BICARBONATE 28.2 MEQ/L (21.0-32.0); POTASSIUM 4.2 MEQ/L (3.5-5.1)
[2016-09-28] MEDS: HEPARIN-D5W INJ 250 ML IV SCH (12:29)
[2016-09-28 12:30] LABS: CREATINE KINASE 26 U/L (39-308)
[2016-09-28] MEDS: MORPHINE SULFATE 4 MG/ML INJ IV PRN ×2 (13:28→21:22)
[2016-09-28 13:38] LABS: BLOOD GAS BASE EXCESS -0.5 mmol/L (-2-2); BLOOD GAS CARBOXYHEMOGLOBIN 1.6 % (0-4); BLOOD GAS HCO3 24 mmol/L (22-26); BLOOD GAS O2 HGB SATURATION 94 % (90-100); BLOOD GAS OXYGEN CONTENT 10.5 Vol % (12.0-20.0); BLOOD GAS PCO2 43 mmHg (38-42); BLOOD GAS PO2 89 mmHg (61-120); BLOOD GAS TOTAL HGB 7.8 G/DL (12.0-16.0); CRITICAL VALUE NO; OXYGEN DEVICE VENTILATOR; TEMP CORR TO 98.6
[2016-09-28 13:39] LABS: DRAW SITE RT RADIAL; FIO2 40 %; NUMBER OF ARTERIAL PUNCTURES 1; STAT NO; ULNAR PULSE PRESENT
--- NOTE | 2016-09-28 14:08 | HHI.IDPN ---
Subjective Subjective Remarks ID [id number] Patient is a 56-year-old male, admitted to the hospital initially for surgery. He has chronic diverticulitis with extension to the small bowel. He underwent surgery August 19 and had laparoscopic, robotic extensive lysis of adhesions, low anterior resection, and small bowel resection. On August 24 he developed anastomotic leak, and underwent repeat surgery and had exploratory laparotomy, irrigation and diverging loop sigmoid colostomy. On September 02 he developed wound dehiscence in the lower midline incision, and it was felt that it had fascial dehiscence. Wound VAC was started at that time. More recently he was found to have a retroperitoneal abscess, and a percutaneous drain was placed on September 01. Patient has been treated for gram-negative pneumonia. The retroperitoneal abscess culture has grown Pseudomonas, enterococcus, and Iram glabrata. Patient has required ventilatory support. Patient also has developed renal failure, and has been undergoing hemodialysis. His WBC remains elevated. Notes reviewed Temps ok WBC decreasing Not tolerating CPAP BP good Colostomy working Has wound vac in lower midline incision Has trach Has new vascath placed 09/25 No other central line 09/20 Fluid with C albicans and C parapsilosis 09/20 SERGEI right PSAE 09/17 Sputum PSAE 09/17 2 BC negative Antibiotics azactam flagyl fluconazole Lines HD cath site ok. Past Medical History 1. Diverticulitis. 2. COPD. 3. Hypertension. 4. Anxiety disorder. 5. BPH. 6. History of tonsillectomy. Allergies: Coded Allergies: *MDRO Multi-Drug Resistant Organism (Verified Adverse Reaction, Unknown, ) MDR-Pseudomonas (sputum)-09/17/16 Objective . Vital Signs Date Time Temp Pulse Resp B/P Pulse Ox O2 Delivery O2 Flow Rate FiO2 09/28/16 12:00 98.8 115 38 149/72 100 09/28/16 12:00 40 09/28/16 12:00 115 09/28/16 11:12 96 40 09/28/16 10:00 123 09/28/16 08:00 98.3 117 18 122/71 100 09/28/16 08:00 117 09/28/16 08:00 40 09/28/16 07:39 100 40 09/28/16 06:00 103 09/28/16 04:00 40 09/28/16 04:00 102 09/28/16 04:00 98.5 102 20 137/76 100 09/28/16 03:31 100 40 09/28/16 02:00 113 09/28/16 00:00 110 09/28/16 00:00 40 09/28/16 00:00 98.7 110 21 112/64 100 09/27/16 23:40 100 40 09/27/16 22:00 106 09/27/16 20:00 98.9 120 28 138/78 100 09/27/16 20:00 120 09/27/16 20:00 40 09/27/16 19:54 100 40 09/27/16 18:00 115 09/27/16 16:34 100 40 09/27/16 16:00 99.1 117 30 126/78 100 09/27/16 16:00 40 09/27/16 16:00 117 09/27/16 09/27/16 09/28/16 15:00 23:00 07:00 Intake Total 899 ml 595 ml 1071 ml Output Total 270 ml 150 ml 550 ml Balance 629 ml 445 ml 521 ml Intake Oral 200 ml IV Total 340 ml 149 ml 358 ml Tube Feeding 399 ml 346 ml 453 ml Other 160 ml 100 ml 60 ml Output Urine Total 0 ml 0 ml 150 ml Stool Total 270 ml 150 ml 400 ml Drainage Total 0 ml . Laboratory Tests Test 09/27/16 04:36 White Blood Count 16.3 TH/MM3 Red Blood Count 3.03 MIL/MM3 Hemoglobin 8.4 GM/DL Hematocrit 26.3 % Mean Corpuscular Volume 86.9 FL Mean Corpuscular Hemoglobin 27.9 PG Mean Corpuscular Hemoglobin 32.1 % Concent Red Cell Distribution Width 16.4 % Platelet Count 414 TH/MM3 Mean Platelet Volume 8.1 FL Neutrophils (%) (Auto) 69.2 % Lymphocytes (%) (Auto) 14.5 % Monocytes (%) (Auto) 12.8 % Eosinophils (%) (Auto) 1.6 % Basophils (%) (Auto) 1.9 % Neutrophils # (Auto) 11.3 TH/MM3 Lymphocytes # (Auto) 2.4 TH/MM3 Monocytes # (Auto) 2.1 TH/MM3 Eosinophils # (Auto) 0.3 TH/MM3 Basophils # (Auto) 0.3 TH/MM3 CBC Comment AUTO DIFF Differential Total Cells 100 Counted Neutrophils % (Manual) 70 % Band Neutrophils % 6 % Lymphocytes % 10 % Monocytes % 9 % Eosinophils % 1 % Basophils % 1 % Neutrophils # (Manual) 12.9 TH/MM3 Metamyelocytes 3 % Differential Comment FINAL DIFF MANUAL Platelet Estimate NORMAL Platelet Morphology Comment NORMAL Red Cell Morphology Comment NORMAL Laboratory Tests Test 09/27/16 09/28/16 04:36 11:40 Sodium Level 138 MEQ/L 137 MEQ/L Potassium Level 4.4 MEQ/L 4.2 MEQ/L Chloride Level 99 MEQ/L 99 MEQ/L Carbon Dioxide Level 25.5 MEQ/L 28.2 MEQ/L Anion Gap 14 MEQ/L 10 MEQ/L Blood Urea Nitrogen 74 MG/DL 78 MG/DL Creatinine 5.35 MG/DL 5.35 MG/DL Estimat Glomerular Filtration 11 ML/MIN 11 ML/MIN Rate Random Glucose 125 MG/DL 144 MG/DL Calcium Level 9.9 MG/DL 9.9 MG/DL Phosphorus Level 6.0 MG/DL Total Bilirubin 0.7 MG/DL Aspartate Amino Transf 32 U/L (AST/SGOT) Alanine Aminotransferase 19 U/L (ALT/SGPT) Alkaline Phosphatase 233 U/L Total Protein 8.4 GM/DL Albumin 2.4 GM/DL Total Creatine Kinase 26 U/L Troponin I LESS THAN 0.02 NG/ML B-Type Natriuretic Peptide 51 PG/ML Imaging Last Impressions Chest X-Ray 09/25/16 1247 Signed Impressions: Service Date/Time: Sunday, September 25, 2016 13:03 - CONCLUSION: Satisfactory dialysis catheter placement. No pneumothorax. Claude Rosario MD Abdomen/Pelvis CT 09/23/16 0000 Signed Impressions: Service Date/Time: Friday, September 23, 2016 15:22 - CONCLUSION: 1. Reduction in size of the hypodense fluid collection in the hepatogastric space with no residual hypodensity seen.. Stable position to be indwelling drainage catheter. 2. Decreasing size lower lung infiltrates. 3. Interval removal of right lower quadrant drain and interval development of a small to moderate size amount of fluid in the cul-de-sac. Evelio Boyd MD Upper Extremity Ultrasound 09/17/16 0000 Signed Impressions: Service Date/Time: Saturday, September 17, 2016 16:48 - CONCLUSION: 1. Positive nonocclusive deep venous thrombosis right internal jugular vein. 2. Nonocclusive superficial thrombosis in the left cephalic vein. Miki Banerjee MD Lower Extremity Ultrasound 09/17/16 0000 Signed Impressions: Service Date/Time: Saturday, September 17, 2016 17:33 - CONCLUSION: Normal examination. Miki Banerjee MD Head CT 09/17/16 0000 Signed Impressions: Service Date/Time: Saturday, September 17, 2016 20:47 - CONCLUSION: 1. No acute intracranial abnormalities. Miki Banerjee MD Chest CT 09/17/16 Signed Impressions: Service Date/Time: Saturday, September 17, 2016 20:46 - CONCLUSION: 1. Multifocal airspace consolidation in the lungs, right greater than left most characteristic of bronchopneumonia. There is underlying mild to moderate emphysema. Small effusions. Miki Banerjee MD Abscess Drainage CT 09/13/16 0000 Signed Impressions: Service Date/Time: Tuesday, September 13, 2016 14:30 - CONCLUSION: Uncomplicated CT guided drainage. Carlo Cortes MD Retroperitoneal Abscess Drainage 09/01/16 0600 Signed Impressions: Service Date/Time: Thursday, September 01, 2016 13:05 - CONCLUSION: Uncomplicated CT guided drainage of a right lower quadrant fluid collection. Approximately 75 cc of fecal-like brown material was aspirated. The air and fluid collection may communicate with the inferior aspect of the midline wound on the anterior abdominal wall. Claude Carrasco MD Abdomen X-Ray 08/24/16 0000 Signed Impressions: Service Date/Time: August 07:44 - CONCLUSION: Gaseous distention of multiple bowel loops possible ileus. Jony Miller MD Enema w/Water Soluble 08/23/16 0000 Signed Impressions: Service Date/Time: Tuesday, August 23, 2016 10:12 - CONCLUSION: Anastomosis appears patent without extravasation. Aditya Rocha MD FACR CT Angiography 08/21/16 0000 Signed Impressions: Service Date/Time: Sunday, August 21, 2016 14:05 - CONCLUSION: 1. There is no evidence for central pulmonary emboli. 2. Minimal subcutaneous air as well as free intraperitoneal air. Aditya Rocha MD FACR Physical Exam GENERAL: Awake, responsive, on the vent, NAD SKIN: Warm, dry, no rash HEENT: Mcloud conjunctivae, no scleral icterus. Moist mucosa NECK: No adenopathy or swelling. Trach in place, site ok LUNGS: Coarse breath sounds bilaterally, decreased at the bases. HEART: Regular rate and rhythm. No audible murmurs, rubs or gallops. ABDOMEN: Soft, not tender. Colostomy on R working well, Midline incision, has vac in lower portion. EXTREMITIES: No clubbing or cyanosis. Edema - small amount. Well-perfused NEUROLOGIC: Awake, following commands, + eye contact LINE: No evidence of infection Assessment & Plan Remarks IMPRESSION Sepsis. Pseudomonas on CVL culture of removed line. Peritonitis. Post abdominal surgery/Bowel resection - enterococcus, pseudomonas and yeast. - had drains previously, now removed - repeat CT better, though has more fluid in cul-de-sac, ?significance Pneumonia. pseudomonas ( resistant strain). - prob colonized by now - on aerosol Tobra Leukocytosis secondary to infection. Improving Acute renal failure, on HD Acute respiratory failure. Remains vent. dependent. - S/P trach Thrombosis R. internal Jugular vein. Fever persistent. Probably because of resistant organism. ? line vs intra abdominal infection vs PNA. - temps better RECOMMENDATIONS Continue fluconazole Continue Aztreonam since patient clinically better Continue Tobramycin nebulized. Continue Flagyl. Follow CBC. Monitor temps. Monitor progress Should be ok to place permacath Weaning per CCM D/W RN Wendy Young MD Sep 28, 2016 14:08 Wendy Young MD Sep 28, 2016 14:08
--- NOTE | 2016-09-28 14:11 | RADRPT ---
EXAM DATE/TIME: 09/28/2016 13:28 [facility] COMPARISON: CHEST SINGLE AP, September 26, 2016, 3:20. INDICATIONS : Respiratory distress MEDICAL HISTORY : None. Hypertension. Chronic obstructive pulmonary disease. Diabetes mellitus type II. Asthma. S moker. SURGICAL HISTORY : Tracheostomy. ENCOUNTER: Subsequent ACUITY: 2 weeks PAIN SCORE: Non-responsive. LOCATION: Bilateral chest FINDINGS: Tracheostomy in place. Left subclavian catheter tip projects over the mid superior vena cava. Gastr ic tube traverses the [id number]. Some linear atelectasis or scarring lower lateral right lung st able. No focal infiltrates seen. The hemidiaphragms well delineated. CONCLUSION: The lungs are clear. Evelio Boyd MD on September 28, 2016 at 14:08 Board Certified Radiologist. This report was verified electronically.
[2016-09-28] MEDS: LEVOFLOXACIN 250 MG PREMIX INJ 50 ML IV SCH (16:04)
--- NOTE | 2016-09-28 16:36 | HHI.CCPN ---
Subjective Remarks/Hospital Course 08/25: Patient is a 58-year-old male with past medical history significant COPD who, on 08/18/16, underwent Laparoscopic robotic extensive lysis of adhesions, low anterior resection and small bowel resection. Apparently he was brought in by Dr. Moffett for Diverticulitis. Patient has a history of hypertension, COPD, and continues to smoke one pack of cigarettes a day. Postoperatively patient became progressively short of breath. Pulmonary was consulted on 08/21/16 as the patient was becoming more hypoxemic requiring BiPAP. CT of the chest PE protocol did not show any pulmonary embolism. Patient was placed on breathing treatments and IV Solu-Medrol 40 mg every [address] Renteria. Today a.m. patient was on 100% nonrebreather. Patient was diagnosed with an anastomotic leak today and was taken back to the OR by Dr. Moffett. He underwent exploratory laparotomy, I&D and loop ileostomy today. Postop patient remained hypoxemic requiring 70% oxygen, and hence was left intubated and critical care medicine was consulted. Dr. Arce evaluated the patient in ICU. He remained hypoxemic, FiO2 70%. Chest x-ray shows bibasilar mild infiltrates. On sedation lightening patient became very hypertensive, not following commands probably secondary to residual NM blockade received while being transported to ICU. Patient on receiving vancomycin Levaquin and Flagyl per Dr. Moffett. Dr. Arce added cefepime to cover for Pseudomonas. Holding Solu-Medrol due to anastomotic leak. 08/26: Remains sedated, orally intubated on mechanical ventilation. Went into anuric renal failure yesterday which did not respond to fluid boluses and diuretics hence was started on hemodialysis after placement of right IJ Vas- Cath. Currently sedated, arousable, remains orally intubated on mechanical ventilation. Blood pressure borderline last evening following dialysis for which she was started on low-dose vasopressin 0.03 units per minute and Levophed which is currently at 1 jose per minute. Started on TPN last night following which he has been hyperglycemic. 08/27: Sedated, arousable, orally intubated on mechanical ventilation. Spiking fevers overnight. Off Levophed, transiently off vasopressin. Remains on TPN. 08/28: Remains sedated, arousable, orally intubated on mechanical ventilation. On low-dose vasopressin. TPN continues. Made about 500 cc of urine in the last 24 hours. 08/29: In sedated, arousable, orally intubated on mechanical ventilation. Remains on TPN. Dirty drainage from left-sided SERGEI drain noted overnight. Dr. Moffett obtaining CT abdomen pelvis with oral contrast and ID consulted. 08/30: CURRENT TEMPERATURE 99. Status post 4 L hemodialysis today. No current change in therapy. White blood cell count remained stable. Off vasopressors. Arousable to voice. Versed has been discontinued. We'll attempt CPAP trials again today. 08/31: MAXIMUM TEMPERATURE 100.4. Currently 100.1. Currently resting in bed in no acute distress. Continues with scant drainage from bilateral JPs. We'll attempt CPAP trial again today. Positive stool from ostomy bag 09/01: Tmax 99.8. Currently 99.3. Placement of the new right IJ vas catheter today. Plan for IR to possibly drain right lower quadrant fluid collection. Arousable and moves all 4 extremity spontaneously. 09/02: Currently afebrile. Noted placement of iron drain with accordion drain. Growing Pseudomonas. Lasted only 2 hours on CPAP trials today. 09/03: Tolerated SBT for only 30 mins and required PS 20. Not ready to extubate. 09/04: Tachypnea related to anxiety? or metabolic acidosis. Will check VBG. Not tolerating SBT. Anemia. Transfuse during HD. 09/05: Remains very tachypneic on SBTs. Unable to extubate. 09/06: Leukocytosis and bandemia. Acts like ongoing sepsis. 09/07: No significant changes. Afebrile. Tolerating TFs as recommended by CRS. Will transition from TPN to enteral feeds now. 09/08: Bandemia persists. Tolerating full TFs. D/c'd TPN. Glucose control acceptable. 09/09: Tolerating longer CPAP/PS trials. 09/10: Stronger respiratory effort. Try to extubate today. 09/11: Stable hemodynamics, marginal respiratory function. 09/11 update 1800 hrs: Patient developed sudden hyperventilation to 55-60/min, hypertensive urgency to 220/120s, unresponsive state, started versed 10 mg/hr after 10 mg iv. Load with cerebyx, get head CT, EEG in a.m. 09/12: BP and pulse rate control improved with sedation. Etiology unclear. Suspected intracranial process but CT head normal. Possibly seizures. EEG pending this morning. WBC with bandemia persists. 09/13: CURRENT TEMPERATURE 99. Heart rate and blood pressure control. Noted T changes last night noted a potassium 8.2. Noted hemodialysis catheter placed by overnight actuarial science professor in right femoral vein and hemodialysis currently undergoing. Plan for drainage of epigastric fluid collection by IR today. 09/14: Currently afebrile. Status post prior drainage of epigastric fluid area. Currently 60 ccwhite pus accordian drain. Status post bronchoscopy yesterday. 09/15 - intubation day #22. Family waiting another 24 hours to consider tracheostomy. He is not able to be extubated. Currently undergoing hemodialysis. Likely dialysis dependent. 09/16: Tmax 100.2. Blood pressure slowly trending downward. He transfuse PRBCs and albumin bolus prior to hemodialysis today. Intubation day #23. Family currently agreeable to tracheostomy but I'm unable to perform until Sunday. Positive BM. 09/17: Tmax 101. Intubation day #24. Tolerating tube feeding. Currently on Versed and fentanyl drips. 09/18: Remains sedated, orally intubated on mechanical ventilation. Scheduled for percutaneous tracheostomy today. Was dialyzed yesterday. Percutaneous drains [address] Ileostomy with good output. Wound VAC in place over anterior abdominal incision site. 09/19: Remains sedated, on mechanical ventilation via tracheostomy. Patient was noted to have some blood oozing from around tracheostomy site this morning as well as around Vas-Cath. Pressure dressing to be applied around Vas-Cath and packing around tracheostomy site and Dr. Howard informed. 09/20: Remains on fentanyl. On mechanical ventilation via tracheostomy. Continues to have fevers. No further bleeding from tracheostomy site or Vas- Cath site. 09/21: Remains on mechanical ventilation via tracheostomy. Resuming subcutaneous heparin today. No further bleeding from Vas-Cath or tracheostomy site. 09/22: Remains on mechanical ventilation, daily C Pap trials. Awake and alert this morning, following commands. 09/23: Tmax 100.2. Currently afebrile. Some oozing from hemodialysis catheter/ left IJ today. Plan for -2 L. Currently on mechanical ventilation while on hemodialysis. Awake and alert and following commands. 09/24: MAXIMUM TEMPERATURE 100.4. Currently afebrile. Noted hyperkalemia this am. Protocol initiated. Will recheck potassium in 3 hours. Awake and alert and following commands. 09/25: Tmax 101.1. Positive BM overnight likely secondary to Kayexalate provided for hyperkalemia. Received hemodialysis and likely will need to receive again today due to hypercatabolic state. Arousable on the ventilator and follows commands. 09/26: Awake and alert, following commands. Remains on mechanical ventilation via tracheostomy. Wound VAC in place over anterior abdominal wall incision site. Ileostomy functional. Tolerating tube feeds. 09/27: Remains awake and alert, following commands. On mechanical ventilation via tracheostomy. Daily C Pap trials. Tolerating tube feeds. Ileostomy functional. Patient will require PEG tube when okay with colorectal surgery. Wound VAC remains in place over the lower part of surgical incision site over anterior abdominal wall. Subjective 09/28: Awake and alert. On mechanical ventilation via tracheostomy. Started on heparin drip today for full anticoagulation for right IJ DVT. Discussed with Dr. Elana Moffett who is okay with proceeding with PEG tube placement however she is going to discuss this with the patient's family. ID has cleared patient for permacath placement. Needs LTAC placement for vent weaning. Objective Vital Signs Date Time Temp Pulse Resp B/P Pulse Ox O2 Delivery O2 Flow Rate FiO2 09/28/16 14:00 120 09/28/16 12:00 98.8 38 149/72 100 09/28/16 12:00 40 09/25/16 08:20 Ventilator Intake and Output 09/27/16 09/27/16 09/28/16 08:00 16:00 00:00 Intake Total 734 ml 899 ml 595 ml Output Total 300 ml 270 ml 150 ml Balance 434 ml 629 ml 445 ml Result Diagram: 09/27/16 0436 09/28/16 1140 Other Results Laboratory Tests Test 09/28/16 13:25 Blood Gas Puncture Site RT RADIAL Blood Gas Patient Temperature 98.6 Blood Gas HCO3 24 mmol/L (22-26) Blood Gas Base Excess -0.5 mmol/L (-2-2) Blood Gas Oxygen Saturation 94 % (90-100) Arterial Blood pH 7.37 (7.380-7.420) Arterial Blood Partial 43 mmHg (38-42) Pressure CO2 Arterial Blood Partial 89 mmHg Pressure O2 (61-120) Arterial Blood Oxygen Content 10.5 Vol % (12.0-20.0) Arterial Blood 1.6 % (0-4) Carboxyhemoglobin Arterial Blood Methemoglobin 1.0 % (0-2) Blood Gas Hemoglobin 7.8 G/DL (12.0-16.0) Oxygen Delivery Device VENTILATOR Blood Gas Ventilator Setting Blood Gas Inspired Oxygen 40 % Imaging Last Impressions Chest X-Ray 09/24/16 0600 Signed Impressions: Service Date/Time: Saturday, September 24, 2016 03:23 - CONCLUSION: Stable chest x-ray with underinflation and atelectasis at the bases and stable mild airspace opacity at the right base. Claude Carrasco MD Abdomen/Pelvis CT 09/23/16 0000 Signed Impressions: Service Date/Time: Friday, September 23, 2016 15:22 - CONCLUSION: 1. Reduction in size of the hypodense fluid collection in the hepatogastric space with no residual hypodensity seen.. Stable position to be indwelling drainage catheter. 2. Decreasing size lower lung infiltrates. 3. Interval removal of right lower quadrant drain and interval development of a small to moderate size amount of fluid in the cul-de-sac. Evelio Boyd MD Upper Extremity Ultrasound 09/17/16 0000 Signed Impressions: Service Date/Time: Saturday, September 17, 2016 16:48 - CONCLUSION: 1. Positive nonocclusive deep venous thrombosis right internal jugular vein. 2. Nonocclusive superficial thrombosis in the left cephalic vein. Miki Banerjee MD Lower Extremity Ultrasound 09/17/16 0000 Signed Impressions: Service Date/Time: Saturday, September 17, 2016 17:33 - CONCLUSION: Normal examination. Miki Banerjee MD Head CT 09/17/16 0000 Signed Impressions: Service Date/Time: Saturday, September 17, 2016 20:47 - CONCLUSION: 1. No acute intracranial abnormalities. Miki Banerjee MD Chest CT 09/17/16 0000 Signed Impressions: Service Date/Time: Saturday, September 17, 2016 20:46 - CONCLUSION: 1. Multifocal airspace consolidation in the lungs, right greater than left most characteristic of bronchopneumonia. There is underlying mild to moderate emphysema. Small effusions. Miki Banerjee MD Abscess Drainage CT 09/13/16 0000 Signed Impressions: Service Date/Time: Tuesday, September 13, 2016 14:30 - CONCLUSION: Uncomplicated CT guided drainage. Carlo Cortes MD Retroperitoneal Abscess Drainage 09/01/16 0600 Signed Impressions: Service Date/Time: Thursday, September 01, 2016 13:05 - CONCLUSION: Uncomplicated CT guided drainage of a right lower quadrant fluid collection. Approximately 75 cc of fecal-like brown material was aspirated. The air and fluid collection may communicate with the inferior aspect of the midline wound on the anterior abdominal wall. Claude Carrasco MD Abdomen X-Ray 08/24/16 0000 Signed Impressions: Service Date/Time: August 07:44 - CONCLUSION: Gaseous distention of multiple bowel loops possible ileus. Jony Miller MD Enema w/Water Soluble 08/23/16 0000 Signed Impressions: Service Date/Time: Tuesday, August 23, 2016 10:12 - CONCLUSION: Anastomosis appears patent without extravasation. Aditya Rocha MD FACR CT Angiography 08/21/16 0000 Signed Impressions: Service Date/Time: Sunday, August 21, 2016 14:05 - CONCLUSION: 1. There is no evidence for central pulmonary emboli. 2. Minimal subcutaneous air as well as free intraperitoneal air. Aditya Rocha MD FACR Objective Remarks GENERAL: 56-year-old male, currently on mechanical ventilation via tracheostomy SKIN: Warm. Dry. No rash HEAD: Atraumatic. Normocephalic. ENT: mucosa moist NECK: Tracheostomy in place. CARDIOVASCULAR: S1-S2 regular no gallop or murmur RESPIRATORY: On mechanical ventilation, scattered rhonchi appreciated in all lung nesbitt, no wheezing. GASTROINTESTINAL: Abdomen non distended. Midline incision clean and intact. BS active. Ostomy pink with brown stool. MUSCULOSKELETAL: Extremities with trace positive bilateral upper and lower extremity edema, well perfused. NEUROLOGICAL: Awake and alert and interactive. Moves all 4 extremities spontaneously. Date of Insertion: Aug 31, 2016 Date of Removal: Sep 12, 2016 Side: Right A/P Assessment and Plan NEURO/PSYCH: History of anxiety Acute toxic metabolic encephalopathymultifactorial Acetaminophen for fever Haldol 1 mg every 4 hours when necessary Ativan 0.5 mg every one hour when necessary agitation Morphine sulfate 3 milligrams IV every 3 hours when necessary pain -Off sedative drips, follow neuro status. -Head CT 09/11 no acute intracranial findings -EEG 09/12 revealed mild to moderate encephalopathy. No epileptiform activity. Currently on Cerebyx 300 mg liquid at night. Level 5.7 on 09/18, 3.5 on 09/26 RESP: Acute hypoxemic respiratory failure COPD exacerbation Probable healthcare associated pneumonia -Continue ACV 22/600 0.75/5/40 Ventilator bundle -Albuterol nebs every 4 hours scheduled and when necessary duo nebs, Symbicort 2 puffs every 12 was discontinued while in ventilator. Continue Pulmicort 0.5/2 twice a day -Broad-spectrum antibiotics as below -Continue daily C Pap trials. Dr. Renteria/Pulmonary following Increase SBTs length as able. s/p tracheostomy 09/18 CV: Hypotension secondary to septic shock resolved History of hypertension Anuria necessitating hemodialysis. Off all vasopressors Currently on clonidine 0.1 3 times a day, Norvasc 5 mg twice a day and Coreg 3.125 twice a day. Labetalol prn GI/ Nutrition: Anastomotic leak status post exploratory laparotomy, I&D, loop ileostomy 08/24/16 s/p Laparoscopic robotic extensive ANNA MARIE, robotic LAR and small bowel resection Laparoscopic robotic ANNA MARIE, robotic LAR and small bowel resection with anastomotic leak History of diverticulitis -Status post exploratory laparotomy, I&D, loop ileostomy 08/24/16 -Postoperative management per Dr. Moffett. Broad-spectrum antibiotics as below. positive ostomy output - On Reglan to improve GI motility On Glucerna 1.5 goal 60 cc an hour. Protonix for GI prophylaxis All drains have been removed. Wound VAC discontinued. CT abdomen/pelvis 09/23 revealed decreased fluid in the hepatogastric region. Removal of interval drains. Small to moderate fluid in the cul-de-sac. Renal/: Acute kidney injury History BPH Status post bilateral ureteral stents placed by Dr. Fraser 08/18 -Monitor renal function closely. Mg catheter. -IV fluids discontinued in view of anuric renal failure and hyperkalemia necessitating hemodialysis. Nephrology consulted and following. ID has cleared patient for permacath placement on 09/28. We will inform nephrology. New right IJ hemodialysis catheter placed 09/01 -> D/C 09/13. New right femoral hemodialysis catheter placed 09/13 -> D/C 09/19 New LIJ vascath placed 09/18 -> D/C 09/25 New Left Subclavian vascath placed 09/26 ID: Anastomotic leak Sepsis Probable HCAP Current regimen is Flagyl 500 mg IV every 6 hours, Diflucan 200 mg IV 24 hours and aztreonam 500 mg IV every 12 hours. Also tobramycin aerosols twice a day and pulse dose of vancomycin. Levaquin stopped. Pertinent culture 09/20 - wound - Pseudomonas and Iram Alb and Paropsilosis 09/17 - sputum - Pseudomonas 09/17 - blood cultures 2- no growth 09/13 - bronchial -Pseudomonas 09.13 - abdomen abscess -Pseudomonas/yeast 09/01: Abdominal wound - Pseudomonas, enterococcus, Iram 08/31 - line culture Pseudomonas/coag negative staph 08/31 - blood cultures 2 -no growth 08/31 - sputum - pending 08/29 - wound - Pseudomonas, group D enterococcus, C. albicans and yeast 08/25 blood cultures - no growth 08/25 sputum - Serratia/Klebsiella/Pseudomonas 08/24 - wound - no growth HEME: Leukocytosis Normocytic anemia Thrombocytosis RIJ DVT (nonocclusive) Left cephalic superficial thrombus -Monitor CBC, CMP, coags -Full anticoagulation resumed for right IJ DVT on 09/28. ENDO: -Sliding-scale insulin with Accu-Cheks every 6 hours for glycemic control. Levemir 20 units twice a day currently on hold FEN: Hyperphosphatemia Hyperkalemia Continue PhosLo 1334 mg 3 times a day for hyperphosphatemia. Hemodialysis per renal. Received D50/insulin/bicarbonate/Kayexalate on 09/25 for hyperkalemia. PROPH: -Bilateral lower extremity SCDs. Heparin gtt for RIJ DVT (held 09/18 for scheduled trach). Currently on heparin subcutaneous Protonix for GI prophylaxis LINES: -Left subclavian central line placed in the OR 08/24 - 08/31. Right subclavian central line placed 08/31 - 09/11 - RIJ dialysis catheter 08/25 -08/31. New right IJ hemodialysis catheter 09/01 - - Right femoral hemodialysis catheter 09/13 - 09/19 New LIJ vascath placed 09/18 -> D/C 09/25 New Left Subclavian vascath placed 09/26 I called Natalia (pt's family) on 09/26 and and got her voice mail. Left message to call back. Patient will need LTAC placement-case management consulted. Discussed with Dr. Elana Moffett on 09/28, she is okay with proceeding with PEG tube placement however she will be talking to patient's family regarding that. Dr. Moffett also is okay with transferring to LTAC following PEG tube placement. Satya Quarles MD Sep 28, 2016 16:36
[2016-09-28 19:05] LABS: APTT (PATIENT) 52.5 SEC (24.3-30.1)
[2016-09-28] MEDS: SODIUM CHLORIDE 0.9% FLUSH 10 ML FLUSH IVF PRN (20:35)
[2016-09-28] MEDS: PHENYTOIN SUSP 100 MG/4 ML CUP PO SCH (20:35)
--- NOTE | 2016-09-28 20:54 | HHI.PR ---
Subjective Remarks YOAA male with robotic surgery,COPD exac Underwent exp lap,I&d and loop iliostomy placement Remains on vent Had Trach no fever Started Heparin For rt IJ DVT Objective Vital Signs Vital Signs Date Time Temp Pulse Resp B/P Pulse Ox O2 Delivery O2 Flow Rate FiO2 09/28/16 18:00 113 09/28/16 16:54 40 09/28/16 16:54 100 40 09/28/16 16:50 40 09/28/16 16:00 40 09/28/16 16:00 98.6 110 13 135/75 100 09/28/16 16:00 110 09/28/16 14:00 120 09/28/16 12:00 98.8 115 38 149/72 100 09/28/16 12:00 40 09/28/16 12:00 115 09/28/16 11:12 96 40 09/28/16 10:00 123 09/28/16 08:00 98.3 117 18 122/71 100 09/28/16 08:00 117 09/28/16 08:00 40 09/28/16 07:39 100 40 09/28/16 06:00 103 09/28/16 04:00 40 09/28/16 04:00 102 09/28/16 04:00 98.5 102 20 137/76 100 09/28/16 03:31 100 40 09/28/16 02:00 113 09/28/16 00:00 110 09/28/16 00:00 40 09/28/16 00:00 98.7 110 21 112/64 100 09/27/16 23:40 100 40 09/27/16 22:00 106 I/O 09/27/16 09/27/16 09/27/16 09/28/16 09/28/16 09/28/16 07:00 15:00 23:00 07:00 15:00 23:00 Intake Total 734 ml 899 ml 595 ml 1071 ml 855 ml Output Total 300 ml 270 ml 150 ml 550 ml 525 ml Balance 434 ml 629 ml 445 ml 521 ml 330 ml Intake Oral 200 ml IV Total 305 ml 340 ml 149 ml 358 ml 248 ml Tube Feeding 369 ml 399 ml 346 ml 453 ml 547 ml Tube Irrigant 60 ml Other 160 ml 100 ml 60 ml 60 ml Output Urine Total 0 ml 0 ml 0 ml 150 ml 25 ml Stool Total 300 ml 270 ml 150 ml 400 ml 500 ml Drainage Total 0 ml 0 ml Result Diagram: 09/27/16 4186 09/28/16 1140 Objective Remarks GENERAL: WBWN obese male, on Vent , sedated SKIN: Warm and dry. HEAD: Normocephalic. EYES: No scleral icterus. No injection or drainage. NECK: Supple, trachea midline. No JVD or lymphadenopathy. CARDIOVASCULAR: Regular rate and rhythm without murmurs, gallops, or rubs. RESPIRATORY: Breath sounds equal bilaterally. No accessory muscle use. exp rhonchi GASTROINTESTINAL: Abdomen soft, non-tender, Abd distended MUSCULOSKELETAL: No cyanosis, or edema. BACK: Nontender without obvious deformity. No CVA tenderness. A/P Assessment and Plan Resp Failure, on vent COPD exac S/p robotic surgery Anxiety S/p Exp lap PLAN: Cont vent support, aerosol nebs Nebuliser rx qid and prn Abx per ID Monitor lytes Cont ACV Daily CPAP trial Robbie Renteria MD Sep 28, 2016 20:54
[2016-09-28] MEDS: diphenhydrAMINE HCL 50 MG/ML VIAL IV PRN (22:53)
[2016-09-29] VITALS (19 sets, daily range): BP systolic 108–154; BP diastolic 62–75; PULSE 105–125; RESP 4–32; TEMP 98.3–100.1; O2SAT 100
[2016-09-29] MEDS: SODIUM CHLORIDE 0.9% 10 ML VIAL IV FLUSH SCH ×3 (00:45→17:30)
[2016-09-29] MEDS: AZTREONAM INJ 500 MG in SODIUM CHLORIDE 0.9% INJ 100 ML IV SCH ×2 (00:46→12:13)
[2016-09-29] MEDS: FLUCONAZOLE 200 MG PREMIX BAG 100 ML IV SCH (00:47)
[2016-09-29 00:50] LABS: APTT (PATIENT) 47.3 SEC (24.3-30.1)
[2016-09-29] MEDS: LORazepam 2 MG/ML VIAL IV PUSH PRN ×4 (01:23→23:50)
[2016-09-29] MEDS: metroNIDAZOLE 500 MG INJ 100 ML IV SCH ×4 (03:49→23:36)
[2016-09-29] MEDS: HEPARIN-D5W INJ 250 ML IV SCH (04:04)
[2016-09-29] MEDS: ARTIFICIAL TEARS OPTH SOLN 15 ML BTL EACH EYE SCH ×3 (04:06→20:42)
[2016-09-29 04:21] LABS: AUTOMATED NEUTROPHIL # 8.2 TH/MM3 (1.8-7.7); BASOPHIL # 0.2 TH/MM3 (0-0.2); BASOPHIL % 1.7 % (0.0-2.0); EOSINOPHIL # 0.3 TH/MM3 (0-0.4); EOSINOPHIL % 2.3 % (0.0-4.0); HEMATOCRIT 21.5 % (39.0-51.0); LYMPH % 14.6 % (9.0-44.0); LYMPHOCYTE # 1.7 TH/MM3 (1.0-4.8); MEAN CELL VOLUME 86.6 FL (80.0-100.0); MEAN CORPUSCULAR HEMOGLOBIN 29.7 PG (27.0-34.0); MEAN CORPUSCULAR HGB CONC 34.3 % (32.0-36.0); MONO % 9.5 % (0.0-8.0); NEUT % 71.9 % (16.0-70.0); PLATELET COUNT 326 TH/MM3 (150-450); RED BLOOD COUNT 2.48 MIL/MM3 (4.50-5.90); RED CELL DISTRIBUTION WIDTH 17.4 % (11.6-17.2); WHITE BLOOD COUNT 11.4 TH/MM3 (4.0-11.0)
[2016-09-29 04:26] LABS: HEMO FLAGS AUTO DIFF
[2016-09-29] MEDS: RESP: ALBUTEROL 2.5 MG/3 ML NEB (SCH) INH ×5 (04:34→20:11)
[2016-09-29 04:58] LABS: BICARBONATE 26.5 MEQ/L (21.0-32.0); POTASSIUM 4.1 MEQ/L (3.5-5.1)
[2016-09-29 05:12] LABS: BANDS 6 % (0-6); BASOPHILS 2 % (0-2); EOSINOPHILS 2 % (0-4); METAMYELOCYTES 7 % (0-1); MYELOCYTES 2 % (0-0); NEUTROPHIL # MANUAL DIFF 9.9 TH/MM3 (1.8-7.7); POLYS (SEG NEUTROPHILS) 72 % (16-70); SCAN/DIFF FINAL DIFF MANUAL; WBC DIFF SAMPLE 100
[2016-09-29 05:13] LABS: PLATELET ESTIMATE SMEAR NORMAL (NORMAL); PLATELET MORPHOLOGY NORMAL (NORMAL)
[2016-09-29] MEDS: cloNIDine HCL 0.1 MG TAB PO SCH ×3 (05:33→20:42)
[2016-09-29] MEDS: INSULIN NovoLIN REGULAR SUPPLEMENTAL SCALE SQ SCH ×5 (06:00→23:38)
[2016-09-29] MEDS: CHLORHEXIDINE 0.12% (ORAL KIT) 15 ML CUP MT SCH ×2 (08:00→20:00)
[2016-09-29] MEDS: PANTOPRAZOLE SODIUM 40 MG VIAL IVP SCH (08:08)
[2016-09-29] MEDS: SODIUM CHLORIDE 0.9% FLUSH 5 ML FLUSH IVF SCH ×2 (08:09→20:42)
[2016-09-29] MEDS: MUPIROCIN 2% OINT 1 APPLIC/GM SYR EACH NARE SCH ×2 (08:09→20:25)
[2016-09-29] MEDS: SODIUM CHLOR 0.9% 1000 ML INJ 1,000 ML IV PRN (08:50)
[2016-09-29] MEDS: HEPARIN SODIUM - IV 10,000 UNITS/10 ML VIAL PRN (08:51)
[2016-09-29] MEDS: GENTAMICIN SULFATE (DIALYSIS USE ONLY) 20 MG/2 ML VIAL IV PRN (08:51)
[2016-09-29] MEDS: RESP: BUDESONIDE 0.5 MG/2 ML NEB NEB SCH ×2 (08:54→20:11)
[2016-09-29] MEDS: RESP: TOBRAMYCIN SULFATE 300 MG/5 ML NEB NEB SCH ×2 (08:54→20:27)
--- NOTE | 2016-09-29 09:27 | HHI.NPPN ---
Subjective General Problems: Edema Renal Failure: Acute Interval History Was only able to have 30 min dialysis today as catheter is not functioning. He is awake, on CPAP trial via trach. He is awake/alert (Fransisca Canela) Review of Systems General Constitutional: Fever General Remarks nods head no when asked about pain or SOB. (Fransisca Canela) Musculoskeletal MS Remarks generalized pain (Fransisca Canela) Objective Data Data 09/28/16 09/29/16 19:00 07:00 Intake Total 855 ml 1764 ml Output Total 525 ml 500 ml Balance 330 ml 1264 ml Intake Oral 50 ml IV Total 248 ml 753 ml Tube Feeding 547 ml 781 ml Other 60 ml 180 ml Output Urine Total 25 ml 0 ml Stool Total 500 ml 500 ml # Voids 1 Vital Signs Date Time Temp Pulse Resp B/P Pulse Ox O2 Delivery O2 Flow Rate FiO2 09/29/16 08:59 40 09/29/16 08:55 100 40 09/29/16 06:00 108 09/29/16 04:34 100 40 09/29/16 04:00 40 09/29/16 04:00 110 09/29/16 04:00 99.1 110 24 116/74 100 09/29/16 02:00 116 09/29/16 01:15 100 40 09/29/16 00:00 100.1 111 24 108/62 100 09/29/16 00:00 40 09/29/16 00:00 111 09/28/16 22:00 99 09/28/16 21:34 18 09/28/16 21:00 40 09/28/16 20:00 98.6 115 32 154/85 100 09/28/16 20:00 40 09/28/16 20:00 115 09/28/16 18:00 113 09/28/16 16:54 40 09/28/16 16:54 100 40 09/28/16 16:50 40 09/28/16 16:00 40 09/28/16 16:00 98.6 110 13 135/75 100 09/28/16 16:00 110 09/28/16 14:00 120 09/28/16 12:00 98.8 115 38 149/72 100 09/28/16 12:00 40 09/28/16 12:00 115 09/28/16 11:12 96 40 09/28/16 10:00 123 (Fransisca Canela) -: 09/29/16 0342 09/29/16 0342 Microbiology 09/28/16 Stool Occult Blood (KYUNG) - Final, Complete HEMOCCULT NEGATIVE Imaging Last Impressions Chest X-Ray 09/28/16 0000 Signed Impressions: Service Date/Time: September 13:28 - CONCLUSION: The lungs are clear. Evelio Boyd MD Abdomen/Pelvis CT 09/23/16 0000 Signed Impressions: Service Date/Time: Friday, September 23, 2016 15:22 - CONCLUSION: 1. Reduction in size of the hypodense fluid collection in the hepatogastric space with no residual hypodensity seen.. Stable position to be indwelling drainage catheter. 2. Decreasing size lower lung infiltrates. 3. Interval removal of right lower quadrant drain and interval development of a small to moderate size amount of fluid in the cul-de-sac. Evelio Boyd MD Upper Extremity Ultrasound 09/17/16 0000 Signed Impressions: Service Date/Time: Saturday, September 17, 2016 16:48 - CONCLUSION: 1. Positive nonocclusive deep venous thrombosis right internal jugular vein. 2. Nonocclusive superficial thrombosis in the left cephalic vein. Miki Banerjee MD Lower Extremity Ultrasound 09/17/16 0000 Signed Impressions: Service Date/Time: Saturday, September 17, 2016 17:33 - CONCLUSION: Normal examination. Miki Banerjee MD Head CT 09/17/16 0000 Signed Impressions: Service Date/Time: Saturday, September 17, 2016 20:47 - CONCLUSION: 1. No acute intracranial abnormalities. Miki Banerjee MD Chest CT 09/17/16 0000 Signed Impressions: Service Date/Time: Saturday, September 17, 2016 20:46 - CONCLUSION: 1. Multifocal airspace consolidation in the lungs, right greater than left most characteristic of bronchopneumonia. There is underlying mild to moderate emphysema. Small effusions. Miki Banerjee MD Abscess Drainage CT 09/13/16 0000 Signed Impressions: Service Date/Time: Tuesday, September 13, 2016 14:30 - CONCLUSION: Uncomplicated CT guided drainage. Carlo Cortes MD Retroperitoneal Abscess Drainage 09/01/16 0600 Signed Impressions: Service Date/Time: Thursday, September 01, 2016 13:05 - CONCLUSION: Uncomplicated CT guided drainage of a right lower quadrant fluid collection. Approximately 75 cc of fecal-like brown material was aspirated. The air and fluid collection may communicate with the inferior aspect of the midline wound on the anterior abdominal wall. Claude Carrasco MD Abdomen X-Ray 08/24/16 0000 Signed Impressions: Service Date/Time: August 07:44 - CONCLUSION: Gaseous distention of multiple bowel loops possible ileus. Jony Miller MD Enema w/Water Soluble 08/23/16 0000 Signed Impressions: Service Date/Time: Tuesday, August 23, 2016 10:12 - CONCLUSION: Anastomosis appears patent without extravasation. Aditya Rocha MD FACR CT Angiography 08/21/16 0000 Signed Impressions: Service Date/Time: Sunday, August 21, 2016 14:05 - CONCLUSION: 1. There is no evidence for central pulmonary emboli. 2. Minimal subcutaneous air as well as free intraperitoneal air. Aditya Rocha MD FACR Tubes & Lines: Vas-Cath Tubes & Lines Comment trach TLC, NG tube (R) SERGEI drain RLQ epigastric drain wound vac lower abdomen Drip Comment none (Fransisca Canela) Physical Exam General Appearance: Well Developed, No Acute Distress Appearance Remarks awake on ventilator via trach, nods yes/no to questions (Fransisca Canela BEER BREWER ) Throat Throat Exam: Oral Mucosa [place] & Moist (Fransisca Canela BEER BREWER) Neck Neck Remarks trach (Fransisca Canela BEER BREWER) Pulmonary Resp Exam: Breath Sounds Equal, No Distress, Crackles, Sputum, Diminished Breath Sounds Resp Remarks vented, increased secretions (Fransisca Canela BEER BREWER) Cardiology CV Exam: Regular, Normal Sinus Rhythm (Fransisca Canela BEER BREWER) Gastrointestinal/Abdomen GI Exam: Distended GI Remarks distended, not as firm; colostomy with pink/red stoma stool in colostomy bag (Fransisca Canela BEER BREWER) Musculoskeletal MS Exam: Joints Intact, Atrophy, Unable to Ambulate (Fransisca Canela BEER BREWER) Integumentary Skin Exam: Warm, Dry Skin Remarks below umbilicus, midabdominal wound has dehisced; wound vac left side of incision (Fransisca Canela) Extremeties Extremities Exam: No Edema, Pedal Pulses Palpable (Fransisca Canela) Neurologic Neuro Exam: Alert, Awake, Moving All Extremities (Fransisca Canela) VTE Prophylaxis Device: SCDs (Fransisca Canela) Assessment/Plan Discussed Condition With: Patient Assessment Summary: VIRIDIANA/Acute Renal Failure, Acute Tubular Necrosis, Hypertension Problem List: (1) Acute renal failure Plan: He has developed ATN due to sepsis. Dialysis initiated 3/3 MWF dialysis., had limited treatment sunday and today due to vascath it is malfunctioning, ID has cleared for Permcath, will consult IR he has began to make urine per nursing, condom catheter to be applied, follow output await renal recovery Avoid nephrotoxic agents. (2) Sepsis Plan: ID following. Now on Aztreonam, Fluconazole, Flagyl, Tobramycin nebulizer. blood culture negative he is on droplet for pseudomonas in sputum (Fransisca Canela) Plan patient was seen and examined. PermCath placement today. Dialysis today and tomorrow. (Tito Kuo MD) Problem Qualifiers (1) Acute renal failure: Qualified Code: N17.0 - Acute renal failure with tubular necrosis Fransisca Canela Sep 29, 2016 09:27 Tito Kuo MD Sep 29, 2016 13:33
[2016-09-29] MEDS: LACTOBACILLUS ACIDOPHILUS TAB NG SCH ×3 (09:51→18:05)
[2016-09-29] MEDS: CARVEDILOL 3.125 MG TAB PO SCH ×2 (09:51→20:42)
[2016-09-29] MEDS: amLODIPine BESYLATE 5 MG TAB PO SCH ×2 (09:51→20:42)
[2016-09-29] MEDS: CALCIUM ACETATE 667 MG CAP PO SCH ×3 (09:56→18:05)
--- NOTE | 2016-09-29 11:01 | HHI.IDPN ---
Subjective Subjective Remarks ID COVERAGE Patient is a 56-year-old male, admitted to the hospital initially for surgery. He has chronic diverticulitis with extension to the small bowel. He underwent surgery August 19 and had laparoscopic, robotic extensive lysis of adhesions, low anterior resection, and small bowel resection. On August 24 he developed anastomotic leak, and underwent repeat surgery and had exploratory laparotomy, irrigation and diverging loop sigmoid colostomy. On September 02 he developed wound dehiscence in the lower midline incision, and it was felt that it had fascial dehiscence. Wound VAC was started at that time. More recently he was found to have a retroperitoneal abscess, and a percutaneous drain was placed on September 01. Patient has been treated for gram-negative pneumonia. The retroperitoneal abscess culture has grown Pseudomonas, enterococcus, and Iram glabrata. Patient has required ventilatory support. Patient also has developed renal failure, and has been undergoing hemodialysis. His WBC remains elevated. Notes reviewed One low grade tempsearlier WBC decreasing On CPAP currently BP good Colostomy working Has wound vac in lower midline incision Has trach 09/20 Fluid with C albicans and C parapsilosis 09/20 SERGEI right PSAE 09/17 Sputum PSAE 09/17 2 BC negative Antibiotics azactam flagyl fluconazole Lines HD cath site ok. Past Medical History 1. Diverticulitis. 2. COPD. 3. Hypertension. 4. Anxiety disorder. 5. BPH. 6. History of tonsillectomy. Allergies: Coded Allergies: *MDRO Multi-Drug Resistant Organism (Verified Adverse Reaction, Unknown, ) MDR-Pseudomonas (sputum)-09/17/16 Objective . Vital Signs Date Time Temp Pulse Resp B/P Pulse Ox O2 Delivery O2 Flow Rate FiO2 09/29/16 08:59 40 09/29/16 08:55 100 40 09/29/16 06:00 108 09/29/16 04:34 100 40 09/29/16 04:00 40 09/29/16 04:00 110 09/29/16 04:00 99.1 110 24 116/74 100 09/29/16 02:00 116 09/29/16 01:15 100 40 09/29/16 00:00 100.1 111 24 108/62 100 09/29/16 00:00 40 09/29/16 00:00 111 09/28/16 22:00 99 09/28/16 21:34 18 09/28/16 21:00 40 09/28/16 20:00 98.6 115 32 154/85 100 09/28/16 20:00 40 09/28/16 20:00 115 09/28/16 18:00 113 09/28/16 16:54 40 09/28/16 16:54 100 40 09/28/16 16:50 40 09/28/16 16:00 40 09/28/16 16:00 98.6 110 13 135/75 100 09/28/16 16:00 110 09/28/16 14:00 120 09/28/16 12:00 98.8 115 38 149/72 100 09/28/16 12:00 40 09/28/16 12:00 115 09/28/16 11:12 96 40 09/28/16 09/28/16 09/29/16 15:00 23:00 07:00 Intake Total 855 ml 525 ml 1239 ml Output Total 525 ml 300 ml 200 ml Balance 330 ml 225 ml 1039 ml Intake Oral 50 ml IV Total 248 ml 174 ml 579 ml Tube Feeding 547 ml 291 ml 490 ml Other 60 ml 60 ml 120 ml Output Urine Total 25 ml 0 ml Stool Total 500 ml 300 ml 200 ml # Voids 1 . Laboratory Tests Test 09/29/16 03:42 White Blood Count 11.4 TH/MM3 Red Blood Count 2.48 MIL/MM3 Hemoglobin 7.4 GM/DL Hematocrit 21.5 % Mean Corpuscular Volume 86.6 FL Mean Corpuscular Hemoglobin 29.7 PG Mean Corpuscular Hemoglobin 34.3 % Concent Red Cell Distribution Width 17.4 % Platelet Count 326 TH/MM3 Mean Platelet Volume 8.2 FL Neutrophils (%) (Auto) 71.9 % Lymphocytes (%) (Auto) 14.6 % Monocytes (%) (Auto) 9.5 % Eosinophils (%) (Auto) 2.3 % Basophils (%) (Auto) 1.7 % Neutrophils # (Auto) 8.2 TH/MM3 Lymphocytes # (Auto) 1.7 TH/MM3 Monocytes # (Auto) 1.1 TH/MM3 Eosinophils # (Auto) 0.3 TH/MM3 Basophils # (Auto) 0.2 TH/MM3 CBC Comment AUTO DIFF Differential Total Cells 100 Counted Neutrophils % (Manual) 72 % Band Neutrophils % 6 % Lymphocytes % 4 % Monocytes % 5 % Eosinophils % 2 % Basophils % 2 % Neutrophils # (Manual) 9.9 TH/MM3 Metamyelocytes 7 % Myelocytes 2 % Differential Comment FINAL DIFF MANUAL Platelet Estimate NORMAL Platelet Morphology Comment NORMAL Laboratory Tests Test 09/28/16 09/29/16 11:40 03:42 Sodium Level 137 MEQ/L 137 MEQ/L Potassium Level 4.2 MEQ/L 4.1 MEQ/L Chloride Level 99 MEQ/L 98 MEQ/L Carbon Dioxide Level 28.2 MEQ/L 26.5 MEQ/L Anion Gap 10 MEQ/L 13 MEQ/L Blood Urea Nitrogen 78 MG/DL 86 MG/DL Creatinine 5.35 MG/DL 5.91 MG/DL Estimat Glomerular Filtration 11 ML/MIN 10 ML/MIN Rate Random Glucose 144 MG/DL 116 MG/DL Calcium Level 9.9 MG/DL 9.5 MG/DL Total Creatine Kinase 26 U/L Troponin I LESS THAN 0.02 NG/ML B-Type Natriuretic Peptide 51 PG/ML Phosphorus Level 6.1 MG/DL Albumin 2.1 GM/DL Microbiology Date/Time Procedure Status Source Growth 09/28/16 17:54 Stool Occult Blood (KYUNG) - Final Complete Stool Stool HEMOCCULT NEGATIVE Imaging Last Impressions Chest X-Ray 09/25/16 1247 Signed Impressions: Service Date/Time: Sunday, September 25, 2016 13:03 - CONCLUSION: Satisfactory dialysis catheter placement. No pneumothorax. Claude Rosario MD Abdomen/Pelvis CT 09/23/16 0000 Signed Impressions: Service Date/Time: Friday, September 23, 2016 15:22 - CONCLUSION: 1. Reduction in size of the hypodense fluid collection in the hepatogastric space with no residual hypodensity seen.. Stable position to be indwelling drainage catheter. 2. Decreasing size lower lung infiltrates. 3. Interval removal of right lower quadrant drain and interval development of a small to moderate size amount of fluid in the cul-de-sac. Evelio Boyd MD Upper Extremity Ultrasound 09/17/16 0000 Signed Impressions: Service Date/Time: Saturday, September 17, 2016 16:48 - CONCLUSION: 1. Positive nonocclusive deep venous thrombosis right internal jugular vein. 2. Nonocclusive superficial thrombosis in the left cephalic vein. Miki Banerjee MD Lower Extremity Ultrasound 09/17/16 0000 Signed Impressions: Service Date/Time: Saturday, September 17, 2016 17:33 - CONCLUSION: Normal examination. Miki Banerjee MD Head CT 09/17/16 0000 Signed Impressions: Service Date/Time: Saturday, September 17, 2016 20:47 - CONCLUSION: 1. No acute intracranial abnormalities. Miki Banerjee MD Chest CT 09/17/16 0000 Signed Impressions: Service Date/Time: Saturday, September 17, 2016 20:46 - CONCLUSION: 1. Multifocal airspace consolidation in the lungs, right greater than left most characteristic of bronchopneumonia. There is underlying mild to moderate emphysema. Small effusions. Miki Banerjee MD Abscess Drainage CT 09/13/16 0000 Signed Impressions: Service Date/Time: Tuesday, September 13, 2016 14:30 - CONCLUSION: Uncomplicated CT guided drainage. Carlo Cortes MD Retroperitoneal Abscess Drainage 09/01/16 0600 Signed Impressions: Service Date/Time: Thursday, September 01, 2016 13:05 - CONCLUSION: Uncomplicated CT guided drainage of a right lower quadrant fluid collection. Approximately 75 cc of fecal-like brown material was aspirated. The air and fluid collection may communicate with the inferior aspect of the midline wound on the anterior abdominal wall. Claude Carrasco MD Abdomen X-Ray 08/24/16 0000 Signed Impressions: Service Date/Time: August 07:44 - CONCLUSION: Gaseous distention of multiple bowel loops possible ileus. Jony Miller MD Enema w/Water Soluble 08/23/16 0000 Signed Impressions: Service Date/Time: Tuesday, August 23, 2016 10:12 - CONCLUSION: Anastomosis appears patent without extravasation. Aditya Rocha MD FACR CT Angiography 08/21/16 0000 Signed Impressions: Service Date/Time: Sunday, August 21, 2016 14:05 - CONCLUSION: 1. There is no evidence for central pulmonary emboli. 2. Minimal subcutaneous air as well as free intraperitoneal air. Aditya Rocha MD FACR Physical Exam GENERAL: Awakens easily, responsive, on CPAP, NAD SKIN: Warm, dry, no rash HEENT: [place] conjunctivae, no scleral icterus. Moist mucosa NECK: No adenopathy or swelling. Trach in place, site ok LUNGS: Coarse breath sounds bilaterally, decreased at the bases. HEART: Regular rate and rhythm. No audible murmurs, rubs or gallops. ABDOMEN: Soft, not tender. Colostomy on R working well, Midline incision, has vac in lower portion. EXTREMITIES: No clubbing or cyanosis. Edema - small amount. Well-perfused NEUROLOGIC: Awake, following commands, + eye contact LINE: No evidence of infection Assessment & Plan Remarks IMPRESSION Sepsis. Pseudomonas on CVL culture of removed line. Peritonitis. Post abdominal surgery/Bowel resection - enterococcus, pseudomonas and yeast. - had drains previously, now removed - repeat CT better, though has more fluid in cul-de-sac, ?significance Pneumonia. pseudomonas ( resistant strain). - prob colonized by now - on aerosol Tobra Leukocytosis secondary to infection. Improving Acute renal failure, on HD Acute respiratory failure. Remains vent. dependent. - S/P trach Thrombosis R. internal Jugular vein. Fever persistent. Probably because of resistant organism. ? line vs intra abdominal infection vs PNA. - temps better RECOMMENDATIONS Continue fluconazole Continue Aztreonam since patient clinically better Continue Tobramycin nebulized. Continue Flagyl. Follow CBC. Monitor temps. Monitor progress Weaning per [facility] Wendy Young MD Sep 29, 2016 11:01
[2016-09-29 11:13] LABS: APTT (PATIENT) 41.1 SEC (24.3-30.1)
[2016-09-29] MEDS: MORPHINE SULFATE 4 MG/ML INJ IV PRN ×2 (11:23→20:25)
--- NOTE | 2016-09-29 13:08 | HHI.CCPN ---
Subjective Remarks/Hospital Course 08/25: Patient is a 58-year-old male with past medical history significant COPD who, on 08/18/16, underwent Laparoscopic robotic extensive lysis of adhesions, low anterior resection and small bowel resection. Apparently he was brought in by Dr. Moffett for Diverticulitis. Patient has a history of hypertension, COPD, and continues to smoke one pack of cigarettes a day. Postoperatively patient became progressively short of breath. Pulmonary was consulted on 08/21/16 as the patient was becoming more hypoxemic requiring BiPAP. CT of the chest PE protocol did not show any pulmonary embolism. Patient was placed on breathing treatments and IV Solu-Medrol 40 mg every [address] Renteria. Today a.m. patient was on 100% nonrebreather. Patient was diagnosed with an anastomotic leak today and was taken back to the OR by Dr. Moffett. He underwent exploratory laparotomy, I&D and loop ileostomy today. Postop patient remained hypoxemic requiring 70% oxygen, and hence was left intubated and critical care medicine was consulted. Dr. Arce evaluated the patient in ICU. He remained hypoxemic, FiO2 70%. Chest x-ray shows bibasilar mild infiltrates. On sedation lightening patient became very hypertensive, not following commands probably secondary to residual NM blockade received while being transported to ICU. Patient on receiving vancomycin Levaquin and Flagyl per Dr. Moffett. Dr. Arce added cefepime to cover for Pseudomonas. Holding Solu-Medrol due to anastomotic leak. 08/26: Remains sedated, orally intubated on mechanical ventilation. Went into anuric renal failure yesterday which did not respond to fluid boluses and diuretics hence was started on hemodialysis after placement of right IJ Vas- Cath. Currently sedated, arousable, remains orally intubated on mechanical ventilation. Blood pressure borderline last evening following dialysis for which she was started on low-dose vasopressin 0.03 units per minute and Levophed which is currently at 1 jose per minute. Started on TPN last night following which he has been hyperglycemic. 08/27: Sedated, arousable, orally intubated on mechanical ventilation. Spiking fevers overnight. Off Levophed, transiently off vasopressin. Remains on TPN. 08/28: Remains sedated, arousable, orally intubated on mechanical ventilation. On low-dose vasopressin. TPN continues. Made about 500 cc of urine in the last 24 hours. 08/29: In sedated, arousable, orally intubated on mechanical ventilation. Remains on TPN. Dirty drainage from left-sided SERGEI drain noted overnight. Dr. Moffett obtaining CT abdomen pelvis with oral contrast and ID consulted. 08/30: CURRENT TEMPERATURE 99. Status post 4 L hemodialysis today. No current change in therapy. White blood cell count remained stable. Off vasopressors. Arousable to voice. Versed has been discontinued. We'll attempt CPAP trials again today. 08/31: MAXIMUM TEMPERATURE 100.4. Currently 100.1. Currently resting in bed in no acute distress. Continues with scant drainage from bilateral JPs. We'll attempt CPAP trial again today. Positive stool from ostomy bag 09/01: Tmax 99.8. Currently 99.3. Placement of the new right IJ vas catheter today. Plan for IR to possibly drain right lower quadrant fluid collection. Arousable and moves all 4 extremity spontaneously. 09/02: Currently afebrile. Noted placement of iron drain with accordion drain. Growing Pseudomonas. Lasted only 2 hours on CPAP trials today. 09/03: Tolerated SBT for only 30 mins and required PS 20. Not ready to extubate. 09/04: Tachypnea related to anxiety? or metabolic acidosis. Will check VBG. Not tolerating SBT. Anemia. Transfuse during HD. 09/05: Remains very tachypneic on SBTs. Unable to extubate. 09/06: Leukocytosis and bandemia. Acts like ongoing sepsis. 09/07: No significant changes. Afebrile. Tolerating TFs as recommended by CRS. Will transition from TPN to enteral feeds now. 09/08: Bandemia persists. Tolerating full TFs. D/c'd TPN. Glucose control acceptable. 09/09: Tolerating longer CPAP/PS trials. 09/10: Stronger respiratory effort. Try to extubate today. 09/11: Stable hemodynamics, marginal respiratory function. 09/11 update 1800 hrs: Patient developed sudden hyperventilation to 55-60/min, hypertensive urgency to 220/120s, unresponsive state, started versed 10 mg/hr after 10 mg iv. Load with cerebyx, get head CT, EEG in a.m. 09/12: BP and pulse rate control improved with sedation. Etiology unclear. Suspected intracranial process but CT head normal. Possibly seizures. EEG pending this morning. WBC with bandemia persists. 09/13: CURRENT TEMPERATURE 99. Heart rate and blood pressure control. Noted T changes last night noted a potassium 8.2. Noted hemodialysis catheter placed by overnight car wash supervisor in right femoral vein and hemodialysis currently undergoing. Plan for drainage of epigastric fluid collection by IR today. 09/14: Currently afebrile. Status post prior drainage of epigastric fluid area. Currently 60 ccwhite pus accordian drain. Status post bronchoscopy yesterday. 09/15 - intubation day #22. Family waiting another 24 hours to consider tracheostomy. He is not able to be extubated. Currently undergoing hemodialysis. Likely dialysis dependent. 09/16: Tmax 100.2. Blood pressure slowly trending downward. He transfuse PRBCs and albumin bolus prior to hemodialysis today. Intubation day #23. Family currently agreeable to tracheostomy but I'm unable to perform until Sunday. Positive BM. 09/17: Tmax 101. Intubation day #24. Tolerating tube feeding. Currently on Versed and fentanyl drips. 09/18: Remains sedated, orally intubated on mechanical ventilation. Scheduled for percutaneous tracheostomy today. Was dialyzed yesterday. Percutaneous drains [address] Ileostomy with good output. Wound VAC in place over anterior abdominal incision site. 09/19: Remains sedated, on mechanical ventilation via tracheostomy. Patient was noted to have some blood oozing from around tracheostomy site this morning as well as around Vas-Cath. Pressure dressing to be applied around Vas-Cath and packing around tracheostomy site and Dr. Howard informed. 09/20: Remains on fentanyl. On mechanical ventilation via tracheostomy. Continues to have fevers. No further bleeding from tracheostomy site or Vas- Cath site. 09/21: Remains on mechanical ventilation via tracheostomy. Resuming subcutaneous heparin today. No further bleeding from Vas-Cath or tracheostomy site. 09/22: Remains on mechanical ventilation, daily C Pap trials. Awake and alert this morning, following commands. 09/23: Tmax 100.2. Currently afebrile. Some oozing from hemodialysis catheter/ left IJ today. Plan for -2 L. Currently on mechanical ventilation while on hemodialysis. Awake and alert and following commands. 09/24: MAXIMUM TEMPERATURE 100.4. Currently afebrile. Noted hyperkalemia this am. Protocol initiated. Will recheck potassium in 3 hours. Awake and alert and following commands. 09/25: Tmax 101.1. Positive BM overnight likely secondary to Kayexalate provided for hyperkalemia. Received hemodialysis and likely will need to receive again today due to hypercatabolic state. Arousable on the ventilator and follows commands. 09/26: Awake and alert, following commands. Remains on mechanical ventilation via tracheostomy. Wound VAC in place over anterior abdominal wall incision site. Ileostomy functional. Tolerating tube feeds. 09/27: Remains awake and alert, following commands. On mechanical ventilation via tracheostomy. Daily C Pap trials. Tolerating tube feeds. Ileostomy functional. Patient will require PEG tube when okay with colorectal surgery. Wound VAC remains in place over the lower part of surgical incision site over anterior abdominal wall. Subjective 09/28: Awake and alert. On mechanical ventilation via tracheostomy. Started on heparin drip today for full anticoagulation for right IJ DVT. Discussed with Dr. Elana Moffett who is okay with proceeding with PEG tube placement however she is going to discuss this with the patient's family. ID has cleared patient for permacath placement. Needs LTAC placement for vent weaning. 09/29: Slightly tachypneic on CPAP, but appears comfortable. Get swallow eval. set up to chair today. Attempt TP. ID cleared for permacath Objective Vital Signs Date Time Temp Pulse Resp B/P Pulse Ox O2 Delivery O2 Flow Rate FiO2 09/29/16 12:14 100 40 09/29/16 12:00 98.8 105 32 135/75 09/25/16 08:20 Ventilator Intake and Output 09/28/16 09/28/16 09/29/16 08:00 16:00 00:00 Intake Total 1071 ml 855 ml 525 ml Output Total 550 ml 525 ml 300 ml Balance 521 ml 330 ml 225 ml Result Diagram: 09/29/16 0342 09/29/16 0342 Other Results Microbiology Date/Time Procedure Status Source Growth 09/28/16 17:54 Stool Occult Blood (JOSE) - Final Complete Stool Stool HEMOCCULT NEGATIVE Laboratory Tests Test 09/28/16 13:25 Blood Gas Puncture Site RT RADIAL Blood Gas Patient Temperature 98.6 Blood Gas HCO3 24 mmol/L (22-26) Blood Gas Base Excess -0.5 mmol/L (-2-2) Blood Gas Oxygen Saturation 94 % (90-100) Arterial Blood pH 7.37 (7.380-7.420) Arterial Blood Partial 43 mmHg (38-42) Pressure CO2 Arterial Blood Partial 89 mmHg Pressure O2 (61-120) Arterial Blood Oxygen Content 10.5 Vol % (12.0-20.0) Arterial Blood 1.6 % (0-4) Carboxyhemoglobin Arterial Blood Methemoglobin 1.0 % (0-2) Blood Gas Hemoglobin 7.8 G/DL (12.0-16.0) Oxygen Delivery Device VENTILATOR Blood Gas Ventilator Setting Blood Gas Inspired Oxygen 40 % Imaging Last Impressions Chest X-Ray 09/24/16 0600 Signed Impressions: Service Date/Time: Saturday, September 24, 2016 03:23 - CONCLUSION: Stable chest x-ray with underinflation and atelectasis at the bases and stable mild airspace opacity at the right base. Claude Carrasco MD Abdomen/Pelvis CT 09/23/16 0000 Signed Impressions: Service Date/Time: Friday, September 23, 2016 15:22 - CONCLUSION: 1. Reduction in size of the hypodense fluid collection in the hepatogastric space with no residual hypodensity seen.. Stable position to be indwelling drainage catheter. 2. Decreasing size lower lung infiltrates. 3. Interval removal of right lower quadrant drain and interval development of a small to moderate size amount of fluid in the cul-de-sac. Evelio Boyd MD Upper Extremity Ultrasound 09/17/16 0000 Signed Impressions: Service Date/Time: Saturday, September 17, 2016 16:48 - CONCLUSION: 1. Positive nonocclusive deep venous thrombosis right internal jugular vein. 2. Nonocclusive superficial thrombosis in the left cephalic vein. Miki Banerjee MD Lower Extremity Ultrasound 09/17/16 0000 Signed Impressions: Service Date/Time: Saturday, September 17, 2016 17:33 - CONCLUSION: Normal examination. Miki Banerjee MD Head CT 09/17/16 0000 Signed Impressions: Service Date/Time: Saturday, September 17, 2016 20:47 - CONCLUSION: 1. No acute intracranial abnormalities. Miki Banerjee MD Chest CT 09/17/16 0000 Signed Impressions: Service Date/Time: Saturday, September 17, 2016 20:46 - CONCLUSION: 1. Multifocal airspace consolidation in the lungs, right greater than left most characteristic of bronchopneumonia. There is underlying mild to moderate emphysema. Small effusions. Miki Banerjee MD Abscess Drainage CT 09/13/16 0000 Signed Impressions: Service Date/Time: Tuesday, September 13, 2016 14:30 - CONCLUSION: Uncomplicated CT guided drainage. Carlo Cortes MD Retroperitoneal Abscess Drainage 09/01/16 0600 Signed Impressions: Service Date/Time: Thursday, September 01, 2016 13:05 - CONCLUSION: Uncomplicated CT guided drainage of a right lower quadrant fluid collection. Approximately 75 cc of fecal-like brown material was aspirated. The air and fluid collection may communicate with the inferior aspect of the midline wound on the anterior abdominal wall. Claude Carrasco MD Abdomen X-Ray 08/24/16 0000 Signed Impressions: Service Date/Time: August 07:44 - CONCLUSION: Gaseous distention of multiple bowel loops possible ileus. Jony Miller MD Enema w/Water Soluble 08/23/16 0000 Signed Impressions: Service Date/Time: Tuesday, August 23, 2016 10:12 - CONCLUSION: Anastomosis appears patent without extravasation. Aditya Rocha MD FACR CT Angiography 08/21/16 0000 Signed Impressions: Service Date/Time: Sunday, August 21, 2016 14:05 - CONCLUSION: 1. There is no evidence for central pulmonary emboli. 2. Minimal subcutaneous air as well as free intraperitoneal air. Aditya Rocha MD FACR Objective Remarks GENERAL: 56-year-old male, currently on mechanical ventilation via tracheostomy SKIN: Warm. Dry. No rash HEAD: Atraumatic. Normocephalic. ENT: mucosa moist NECK: Tracheostomy in place. CARDIOVASCULAR: S1-S2 regular no gallop or murmur RESPIRATORY: On mechanical ventilation, scattered rhonchi appreciated in all lung nesbitt, no wheezing. GASTROINTESTINAL: Abdomen non distended. Midline incision clean and intact. BS active. Ostomy pink with brown stool. MUSCULOSKELETAL: Extremities with trace positive bilateral upper and lower extremity edema, well perfused. NEUROLOGICAL: Awake and alert and interactive. Moves all 4 extremities spontaneously. Date of Insertion: Aug 31, 2016 Date of Removal: Sep 12, 2016 Side: Right A/P Assessment and Plan NEURO/PSYCH: History of anxiety Acute toxic metabolic encephalopathymultifactorial Acetaminophen for fever Haldol 1 mg every 4 hours when necessary Ativan 0.5 mg every one hour when necessary agitation, and start scheduled Ativan 0.5 mg po q8 (RN reports severe anxiety) Morphine sulfate 3 milligrams IV every 3 hours when necessary pain -Off sedative drips, follow neuro status. -Head CT 09/11 no acute intracranial findings -EEG 09/12 revealed mild to moderate encephalopathy. No epileptiform activity. -Currently on Cerebyx 300 mg liquid at night. Level 5.7 on 09/18, 3.5 on 09/26 RESP: Acute hypoxemic respiratory failure COPD exacerbation Probable healthcare associated pneumonia -Continue ACV 22/600 0.75/5/40. Tolerating CPAP. Attempt 2 hour TP today. Increase SBT length as able. -Ventilator bundle -Albuterol nebs every 4 hours scheduled and when necessary duo nebs, Symbicort 2 puffs every 12 was discontinued while in ventilator. -Continue Pulmicort 0.5/2 twice a day -Broad-spectrum antibiotics as below -Continue daily C Pap trials. -Dr. Renteria/Pulmonary following -s/p tracheostomy 09/18 CV: Hypotension secondary to septic shock resolved History of hypertension Anuria necessitating hemodialysis. Off all vasopressors Currently on clonidine 0.1 3 times a day, Norvasc 5 mg twice a day and Coreg 3.125 twice a day. Labetalol prn GI/ Nutrition: Anastomotic leak status post exploratory laparotomy, I&D, loop ileostomy 08/24/16 s/p Laparoscopic robotic extensive ANNA MARIE, robotic LAR and small bowel resection Laparoscopic robotic ANNA MARIE, robotic LAR and small bowel resection with anastomotic leak History of diverticulitis -Status post exploratory laparotomy, I&D, loop ileostomy 08/24/16 -Postoperative management per Dr. Moffett. Broad-spectrum antibiotics as below. positive ostomy output -On Reglan to improve GI motility -On Glucerna 1.5 goal 60 cc an hour. Speech consulted for swallow eval. (May be able to avoid PEG) -Protonix for GI prophylaxis -All drains have been removed. Wound VAC discontinued. -CT abdomen/pelvis 09/23 revealed decreased fluid in the hepatogastric region. Removal of interval drains. Small to moderate fluid in the cul-de-sac. Renal/: Acute kidney injury History BPH Status post bilateral ureteral stents placed by Dr. Fraser 08/18 -Monitor renal function closely. Mg catheter. -IV fluids discontinued in view of anuric renal failure and hyperkalemia necessitating hemodialysis. Nephrology following. ID has cleared patient for permacath placement on 09/28. New right IJ hemodialysis catheter placed 09/01 -> D/C 09/13. New right femoral hemodialysis catheter placed 09/13 -> D/C 09/19 New LIJ vascath placed 09/18 -> D/C 09/25 New Left Subclavian vascath placed 09/26 ID: Anastomotic leak Sepsis Probable HCAP Current regimen is Flagyl 500 mg IV every 6 hours, Diflucan 200 mg IV 24 hours and aztreonam 500 mg IV every 12 hours. Also tobramycin aerosols twice a day and pulse dose of vancomycin. Levaquin stopped. Pertinent culture 09/20 - wound - Pseudomonas and Iram Alb and Paropsilosis 09/17 - sputum - Pseudomonas 09/17 - blood cultures 2- no growth 09/13 - bronchial -Pseudomonas 09.13 - abdomen abscess -Pseudomonas/yeast 09/01: Abdominal wound - Pseudomonas, enterococcus, Iram 08/31 - line culture Pseudomonas/coag negative staph 08/31 - blood cultures 2 -no growth 08/31 - sputum - pending 08/29 - wound - Pseudomonas, group D enterococcus, C. albicans and yeast 08/25 blood cultures - no growth 08/25 sputum - Serratia/Klebsiella/Pseudomonas 08/24 - wound - no growth HEME: Leukocytosis Normocytic anemia Thrombocytosis RIJ DVT (nonocclusive) Left cephalic superficial thrombus -Monitor CBC, CMP, coags -Full anticoagulation resumed for right IJ DVT on 09/28. ENDO: -Sliding-scale insulin with Accu-Cheks every 6 hours for glycemic control. Levemir 20 units twice a day currently on hold FEN: Hyperphosphatemia Hyperkalemia Continue PhosLo 1334 mg 3 times a day for hyperphosphatemia. Hemodialysis per renal. Received D50/insulin/bicarbonate/Kayexalate on 09/25 for hyperkalemia. PROPH: -Bilateral lower extremity SCDs. Heparin gtt for RIJ DVT resumed 09/28/16 (held for scheduled trach). Protonix for GI prophylaxis LINES: -Left subclavian central line placed in the OR 08/24 - 08/31. Right subclavian central line placed 08/31 - 09/11 - RIJ dialysis catheter 08/25 -08/31. New right IJ hemodialysis catheter 09/01 - - Right femoral hemodialysis catheter 09/13 - 09/19 New LIJ vascath placed 09/18 -> D/C 09/25 New Left Subclavian vascath placed 09/26 Dr. Quarles called Natalia (pt's family) on 09/26 and and got her voice mail. Left message to call back. Patient will need LTAC placement-case management consulted. Discussed with Dr. Elana Moffett on 09/28, she is okay with proceeding with PEG tube placement however she will be talking to patient's family regarding that-will also get swallow eval to see whether patient and take by mouth diet . Dr. Moffett also is okay with transferring to LTAC following PEG tube placement. Jeferson Arce MD Sep 29, 2016 13:08
[2016-09-29] MEDS ORDERED: MIDAZOLAM HCL 5 MG/5 ML VIAL ONE (15:18)
[2016-09-29] MEDS ORDERED: fentaNYL CITRATE 250 MCG/5 ML AMP ONE (15:18)
[2016-09-29] MEDS ORDERED: LIDOCAINE 1%/EPINEPHrine 1:100,000 SOLN 20 ML VIAL ONE (15:35)
--- NOTE | 2016-09-29 17:00 | EKG ---
Date Performed: 09/28/2016 Time Performed: 11:50:00 PTAGE: 56 years EKG: Sinus tachycardia. Lead(s) unsuitable for analysis: V1 V2 Septal T wave changes are nonspec ific Borderline ECG PREVIOUS TRACING : 09/13/2016 03.33 DOCTOR: Scott Shukla Interpretating Date/Time 09/29/2016 17:00:29
--- NOTE | 2016-09-29 19:26 | HHI.PR ---
Subjective Remarks YOAA male with robotic surgery,COPD exac Underwent exp lap,I&d and loop iliostomy placement Remains on vent Had Trach no fever on Heparin For rt IJ DVT Had Permacath Had HD Tolerates CPAP, alert, awake, follows commands Objective Vital Signs Vital Signs Date Time Temp Pulse Resp B/P Pulse Ox O2 Delivery O2 Flow Rate FiO2 09/29/16 18:00 112 09/29/16 17:50 100 40 09/29/16 17:00 98.3 106 4 154/75 100 09/29/16 17:00 40 09/29/16 15:00 98.3 106 4 154/75 100 09/29/16 15:00 100 100 09/29/16 15:00 40 09/29/16 14:00 107 09/29/16 12:14 100 40 09/29/16 12:00 105 09/29/16 12:00 40 09/29/16 12:00 98.8 105 32 135/75 100 09/29/16 10:00 125 09/29/16 08:59 40 09/29/16 08:55 100 40 09/29/16 08:00 106 09/29/16 08:00 99.0 106 18 125/72 100 09/29/16 08:00 40 09/29/16 06:00 108 09/29/16 04:34 100 40 09/29/16 04:00 40 09/29/16 04:00 110 09/29/16 04:00 99.1 110 24 116/74 100 09/29/16 02:00 116 09/29/16 01:15 100 40 09/29/16 00:00 100.1 111 24 108/62 100 09/29/16 00:00 40 09/29/16 00:00 111 09/28/16 22:00 99 09/28/16 21:34 18 09/28/16 21:00 40 09/28/16 20:00 98.6 115 32 154/85 100 09/28/16 20:00 40 09/28/16 20:00 115 I/O 09/28/16 09/28/16 09/28/16 09/29/16 09/29/16 09/29/16 07:00 15:00 23:00 07:00 15:00 23:00 Intake Total 1071 ml 855 ml 525 ml 1239 ml 1124 ml Output Total 550 ml 525 ml 300 ml 200 ml 250 ml Balance 521 ml 330 ml 225 ml 1039 ml 874 ml Intake Oral 200 ml 50 ml 100 ml IV Total 358 ml 248 ml 174 ml 579 ml 378 ml Tube Feeding 453 ml 547 ml 291 ml 490 ml 446 ml Other 60 ml 60 ml 60 ml 120 ml 200 ml Output Urine Total 150 ml 25 ml 0 ml Stool Total 400 ml 500 ml 300 ml 200 ml 250 ml Gastric Drainage Total 0 ml # Voids 1 1 Result Diagram: 09/29/162 09/29/16 034 Objective Remarks GENERAL: WBWN obese male, on Vent , sedated SKIN: Warm and dry. HEAD: Normocephalic. EYES: No scleral icterus. No injection or drainage. NECK: Supple, trachea midline. No JVD or lymphadenopathy. CARDIOVASCULAR: Regular rate and rhythm without murmurs, gallops, or rubs. RESPIRATORY: Breath sounds equal bilaterally. No accessory muscle use. exp rhonchi GASTROINTESTINAL: Abdomen soft, non-tender, Abd distended MUSCULOSKELETAL: No cyanosis, or edema. BACK: Nontender without obvious deformity. No CVA tenderness. A/P Assessment and Plan Resp Failure, on vent COPD exac S/p robotic surgery Anxiety S/p Exp lap PLAN: Cont vent support, aerosol nebs Nebuliser rx qid and prn Abx per ID Monitor lytes Cont CPAP Rest with AC 14 Robbie Renteria MD Sep 29, 2016 19:26
[2016-09-29] MEDS: diphenhydrAMINE HCL 50 MG/ML VIAL IV PRN (20:24)
[2016-09-29] MEDS: PHENYTOIN SUSP 100 MG/4 ML CUP PO SCH (20:42)
[2016-09-29] MEDS: HALOPERIDOL LACTATE 5 MG/ML AMP IV PRN (23:37)
--- NOTE | 2016-09-29 23:42 | HHI.PR ---
Subjective Remarks C/R Surg afebrile, VSS awake, responding some UO stoma functioning Objective - Vital Signs Date Time Temp Pulse Resp B/P Pulse Ox O2 Delivery O2 Flow Rate FiO2 09/29/16 22:00 106 09/29/16 20:40 18 09/29/16 20:30 40 09/29/16 20:16 100 09/29/16 20:00 98.8 131/69 09/25/16 08:20 Ventilator Result Diagram: 09/29/16 0342 09/29/16 034 Objective Remarks PE moving all 4 extremities, responding Abd - soft, stoma output, wound clean A/P Assessment and Plan Imp: slow progress PT resp Rx - trach, cont weaning watch I/O Hgb better dialysis Mark Betancur MD Sep 29, 2016 23:42
[2016-09-30] VITALS (18 sets, daily range): BP systolic 105–144; BP diastolic 58–80; PULSE 109–119; RESP 18–26; TEMP 99–100.4; O2SAT 95–100
[2016-09-30] MEDS: FLUCONAZOLE 200 MG PREMIX BAG 100 ML IV SCH (00:10)
[2016-09-30] MEDS: AZTREONAM INJ 500 MG in SODIUM CHLORIDE 0.9% INJ 100 ML IV SCH ×2 (00:10→12:40)
[2016-09-30] MEDS: RESP: ALBUTEROL 2.5 MG/3 ML NEB (SCH) INH ×7 (00:12→23:58)
[2016-09-30] MEDS: SODIUM CHLORIDE 0.9% 10 ML VIAL IV FLUSH SCH ×4 (00:55→16:57)
[2016-09-30 04:45] LABS: BICARBONATE 25.8 MEQ/L (21.0-32.0); POTASSIUM 4.3 MEQ/L (3.5-5.1)
[2016-09-30 04:48] LABS: APTT (PATIENT) 33.1 SEC (24.3-30.1)
[2016-09-30] MEDS: INSULIN NovoLIN REGULAR SUPPLEMENTAL SCALE SQ SCH ×3 (05:11→20:58)
[2016-09-30] MEDS: cloNIDine HCL 0.1 MG TAB PO SCH ×4 (05:13→21:13)
[2016-09-30] MEDS: ARTIFICIAL TEARS OPTH SOLN 15 ML BTL EACH EYE SCH ×3 (05:13→19:11)
[2016-09-30] MEDS: metroNIDAZOLE 500 MG INJ 100 ML IV SCH ×4 (05:13→23:07)
[2016-09-30] MEDS: RESP: BUDESONIDE 0.5 MG/2 ML NEB NEB SCH ×2 (07:44→19:50)
[2016-09-30] MEDS: CHLORHEXIDINE 0.12% (ORAL KIT) 15 ML CUP MT SCH ×2 (08:00→19:11)
[2016-09-30] MEDS: RESP: TOBRAMYCIN SULFATE 300 MG/5 ML NEB NEB SCH ×2 (08:13→19:51)
[2016-09-30] MEDS: SODIUM CHLOR 0.9% 1000 ML INJ 1,000 ML IV PRN (08:24)
[2016-09-30] MEDS: HEPARIN SODIUM - IV 10,000 UNITS/10 ML VIAL PRN (08:25)
[2016-09-30] MEDS: GENTAMICIN SULFATE (DIALYSIS USE ONLY) 20 MG/2 ML VIAL IV PRN (08:25)
[2016-09-30] MEDS: CALCIUM ACETATE 667 MG CAP PO SCH ×3 (08:57→17:31)
[2016-09-30] MEDS: LACTOBACILLUS ACIDOPHILUS TAB NG SCH ×3 (08:57→17:31)
[2016-09-30] MEDS: CARVEDILOL 3.125 MG TAB PO SCH ×2 (08:57→19:11)
[2016-09-30] MEDS: SODIUM CHLORIDE 0.9% FLUSH 5 ML FLUSH IVF SCH ×2 (08:57→19:11)
[2016-09-30] MEDS: PANTOPRAZOLE SODIUM 40 MG VIAL IVP SCH (08:57)
[2016-09-30] MEDS: MUPIROCIN 2% OINT 1 APPLIC/GM SYR EACH NARE SCH ×2 (08:58→19:11)
--- NOTE | 2016-09-30 10:01 | HHI.NPPN ---
Subjective General Problems: Edema Renal Failure: Acute Additional Remarks Seen on dialysis today, tolerating well. New right-sided tunneled HD catheter Review of Systems General Constitutional: Fever General Remarks nods head no when asked about pain or SOB. Musculoskeletal MS Remarks generalized pain Objective Data Data 09/29/16 09/30/16 19:00 07:00 Intake Total 1124 ml 1449 ml Output Total 250 ml 420 ml Balance 874 ml 1029 ml Intake Oral 100 ml 250 ml IV Total 378 ml 603 ml Tube Feeding 446 ml 596 ml Other 200 ml Output Urine Total 170 ml Stool Total 250 ml 250 ml Gastric Drainage Total 0 ml # Voids 1 Vital Signs Date Time Temp Pulse Resp B/P Pulse Ox O2 Delivery O2 Flow Rate FiO2 09/30/16 08:00 99.2 111 18 121/68 100 09/30/16 08:00 111 09/30/16 08:00 35 09/30/16 07:44 100 35 09/30/16 06:00 117 09/30/16 04:00 99.0 110 18 105/58 100 09/30/16 04:00 110 09/30/16 04:00 35 09/30/16 03:16 100 35 09/30/16 02:00 111 09/30/16 00:15 100 35 09/30/16 00:00 35 09/30/16 00:00 99.1 109 18 144/80 100 09/30/16 00:00 109 09/29/16 22:00 106 09/29/16 20:40 18 09/29/16 20:30 40 09/29/16 20:16 100 40 09/29/16 20:00 40 09/29/16 20:00 98.8 111 26 131/69 100 09/29/16 20:00 111 09/29/16 18:00 112 09/29/16 17:50 100 40 09/29/16 17:00 98.3 106 4 154/75 100 09/29/16 17:00 40 09/29/16 15:00 98.3 106 4 154/75 100 09/29/16 15:00 100 100 09/29/16 15:00 40 09/29/16 14:00 107 09/29/16 12:14 100 40 09/29/16 12:00 105 09/29/16 12:00 40 09/29/16 12:00 98.8 105 32 135/75 100 09/29/16 10:00 125 -: 09/29/16 0342 09/30/16 0346 Tubes & Lines: Vas-Cath Tubes & Lines Comment trach TLC, NG tube (R) SERGEI drain RLQ epigastric drain wound vac lower abdomen Drip Comment none Physical Exam General Appearance: Well Developed, No Acute Distress Throat Throat Exam: Oral Mucosa [place] & Moist Pulmonary Resp Exam: Breath Sounds Equal, No Distress, Crackles, Sputum, Diminished Breath Sounds Cardiology CV Exam: Regular, Normal Sinus Rhythm Gastrointestinal/Abdomen GI Exam: Distended Musculoskeletal MS Exam: Joints Intact, Atrophy, Unable to Ambulate Integumentary Skin Exam: Warm, Dry Extremeties Extremities Exam: No Edema, Pedal Pulses Palpable Neurologic Neuro Exam: Alert, Awake, Moving All Extremities VTE Prophylaxis Device: SCDs Assessment/Plan Discussed Condition With: Patient Assessment Summary: VIRIDIANA/Acute Renal Failure, Acute Tubular Necrosis, Hypertension Problem List: (1) Acute renal failure Plan: He has developed ATN due to sepsis. Dialysis initiated 3/3 MWF dialysis., had limited treatment Sunday and Sunday due to poor catheter flow: New tunneled HD catheter placed with IR yesterday. Seen on HD today - tolerating HD well with BF 400s. Plan next HD Sunday. 150cc UOP per condom catheter - remains dialysis dependence. await renal recovery Avoid nephrotoxic agents. (2) Sepsis Plan: ID following. Now on Aztreonam, Fluconazole, Flagyl, Tobramycin nebulizer. blood culture negative he is on droplet for pseudomonas in sputum Problem Qualifiers (1) Acute renal failure: Qualified Code: N17.0 - Acute renal failure with tubular necrosis Dg Leung MD Sep 30, 2016 10:01
[2016-09-30] MEDS: amLODIPine BESYLATE 5 MG TAB PO SCH ×2 (10:52→19:11)
[2016-09-30] MEDS: LORazepam 2 MG/ML VIAL IV PUSH PRN ×3 (11:18→21:10)
--- NOTE | 2016-09-30 11:58 | HHI.CCPN ---
Subjective Remarks/Hospital Course 08/25: Patient is a 58-year-old male with past medical history significant COPD who, on 08/18/16, underwent Laparoscopic robotic extensive lysis of adhesions, low anterior resection and small bowel resection. Apparently he was brought in by Dr. Moffett for Diverticulitis. Patient has a history of hypertension, COPD, and continues to smoke one pack of cigarettes a day. Postoperatively patient became progressively short of breath. Pulmonary was consulted on 08/21/16 as the patient was becoming more hypoxemic requiring BiPAP. CT of the chest PE protocol did not show any pulmonary embolism. Patient was placed on breathing treatments and IV Solu-Medrol 40 mg every [address] Renteria. Today a.m. patient was on 100% nonrebreather. Patient was diagnosed with an anastomotic leak today and was taken back to the OR by Dr. Moffett. He underwent exploratory laparotomy, I&D and loop ileostomy today. Postop patient remained hypoxemic requiring 70% oxygen, and hence was left intubated and critical care medicine was consulted. Dr. Arce evaluated the patient in ICU. He remained hypoxemic, FiO2 70%. Chest x-ray shows bibasilar mild infiltrates. On sedation lightening patient became very hypertensive, not following commands probably secondary to residual NM blockade received while being transported to ICU. Patient on receiving vancomycin Levaquin and Flagyl per Dr. Moffett. Dr. Arce added cefepime to cover for Pseudomonas. Holding Solu-Medrol due to anastomotic leak. 08/26: Remains sedated, orally intubated on mechanical ventilation. Went into anuric renal failure yesterday which did not respond to fluid boluses and diuretics hence was started on hemodialysis after placement of right IJ Vas- Cath. Currently sedated, arousable, remains orally intubated on mechanical ventilation. Blood pressure borderline last evening following dialysis for which she was started on low-dose vasopressin 0.03 units per minute and Levophed which is currently at 1 jose per minute. Started on TPN last night following which he has been hyperglycemic. 08/27: Sedated, arousable, orally intubated on mechanical ventilation. Spiking fevers overnight. Off Levophed, transiently off vasopressin. Remains on TPN. 08/28: Remains sedated, arousable, orally intubated on mechanical ventilation. On low-dose vasopressin. TPN continues. Made about 500 cc of urine in the last 24 hours. 08/29: In sedated, arousable, orally intubated on mechanical ventilation. Remains on TPN. Dirty drainage from left-sided SERGEI drain noted overnight. Dr. Moffett obtaining CT abdomen pelvis with oral contrast and ID consulted. 08/30: CURRENT TEMPERATURE 99. Status post 4 L hemodialysis today. No current change in therapy. White blood cell count remained stable. Off vasopressors. Arousable to voice. Versed has been discontinued. We'll attempt CPAP trials again today. 08/31: MAXIMUM TEMPERATURE 100.4. Currently 100.1. Currently resting in bed in no acute distress. Continues with scant drainage from bilateral JPs. We'll attempt CPAP trial again today. Positive stool from ostomy bag 09/01: Tmax 99.8. Currently 99.3. Placement of the new right IJ vas catheter today. Plan for IR to possibly drain right lower quadrant fluid collection. Arousable and moves all 4 extremity spontaneously. 09/02: Currently afebrile. Noted placement of iron drain with accordion drain. Growing Pseudomonas. Lasted only 2 hours on CPAP trials today. 09/03: Tolerated SBT for only 30 mins and required PS 20. Not ready to extubate. 09/04: Tachypnea related to anxiety? or metabolic acidosis. Will check VBG. Not tolerating SBT. Anemia. Transfuse during HD. 09/05: Remains very tachypneic on SBTs. Unable to extubate. 09/06: Leukocytosis and bandemia. Acts like ongoing sepsis. 09/07: No significant changes. Afebrile. Tolerating TFs as recommended by CRS. Will transition from TPN to enteral feeds now. 09/08: Bandemia persists. Tolerating full TFs. D/c'd TPN. Glucose control acceptable. 09/09: Tolerating longer CPAP/PS trials. 09/10: Stronger respiratory effort. Try to extubate today. 09/11: Stable hemodynamics, marginal respiratory function. 09/11 update 1800 hrs: Patient developed sudden hyperventilation to 55-60/min, hypertensive urgency to 220/120s, unresponsive state, started versed 10 mg/hr after 10 mg iv. Load with cerebyx, get head CT, EEG in a.m. 09/12: BP and pulse rate control improved with sedation. Etiology unclear. Suspected intracranial process but CT head normal. Possibly seizures. EEG pending this morning. WBC with bandemia persists. 09/13: CURRENT TEMPERATURE 99. Heart rate and blood pressure control. Noted T changes last night noted a potassium 8.2. Noted hemodialysis catheter placed by overnight blood collector in right femoral vein and hemodialysis currently undergoing. Plan for drainage of epigastric fluid collection by IR today. 09/14: Currently afebrile. Status post prior drainage of epigastric fluid area. Currently 60 ccwhite pus accordian drain. Status post bronchoscopy yesterday. 09/15 - intubation day #22. Family waiting another 24 hours to consider tracheostomy. He is not able to be extubated. Currently undergoing hemodialysis. Likely dialysis dependent. 09/16: Tmax 100.2. Blood pressure slowly trending downward. He transfuse PRBCs and albumin bolus prior to hemodialysis today. Intubation day #23. Family currently agreeable to tracheostomy but I'm unable to perform until Sunday. Positive BM. 09/17: Tmax 101. Intubation day #24. Tolerating tube feeding. Currently on Versed and fentanyl drips. 09/18: Remains sedated, orally intubated on mechanical ventilation. Scheduled for percutaneous tracheostomy today. Was dialyzed yesterday. Percutaneous drains [address] Ileostomy with good output. Wound VAC in place over anterior abdominal incision site. 09/19: Remains sedated, on mechanical ventilation via tracheostomy. Patient was noted to have some blood oozing from around tracheostomy site this morning as well as around Vas-Cath. Pressure dressing to be applied around Vas-Cath and packing around tracheostomy site and Dr. Howard informed. 09/20: Remains on fentanyl. On mechanical ventilation via tracheostomy. Continues to have fevers. No further bleeding from tracheostomy site or Vas- Cath site. 09/21: Remains on mechanical ventilation via tracheostomy. Resuming subcutaneous heparin today. No further bleeding from Vas-Cath or tracheostomy site. 09/22: Remains on mechanical ventilation, daily C Pap trials. Awake and alert this morning, following commands. 09/23: Tmax 100.2. Currently afebrile. Some oozing from hemodialysis catheter/ left IJ today. Plan for -2 L. Currently on mechanical ventilation while on hemodialysis. Awake and alert and following commands. 09/24: MAXIMUM TEMPERATURE 100.4. Currently afebrile. Noted hyperkalemia this am. Protocol initiated. Will recheck potassium in 3 hours. Awake and alert and following commands. 09/25: Tmax 101.1. Positive BM overnight likely secondary to Kayexalate provided for hyperkalemia. Received hemodialysis and likely will need to receive again today due to hypercatabolic state. Arousable on the ventilator and follows commands. 09/26: Awake and alert, following commands. Remains on mechanical ventilation via tracheostomy. Wound VAC in place over anterior abdominal wall incision site. Ileostomy functional. Tolerating tube feeds. 09/27: Remains awake and alert, following commands. On mechanical ventilation via tracheostomy. Daily C Pap trials. Tolerating tube feeds. Ileostomy functional. Patient will require PEG tube when okay with colorectal surgery. Wound VAC remains in place over the lower part of surgical incision site over anterior abdominal wall. Subjective 09/28: Awake and alert. On mechanical ventilation via tracheostomy. Started on heparin drip today for full anticoagulation for right IJ DVT. Discussed with Dr. Elana Moffett who is okay with proceeding with PEG tube placement however she is going to discuss this with the patient's family. ID has cleared patient for permacath placement. Needs LTAC placement for vent weaning. 09/29: Slightly tachypneic on CPAP, but appears comfortable. Get swallow eval. set up to chair today. Attempt TP. ID cleared for permacath 09/30: Right IJ PermaCath placed 09/29. Tolerating CPAP trail. Objective Vital Signs Date Time Temp Pulse Resp B/P Pulse Ox O2 Delivery O2 Flow Rate FiO2 09/30/16 11:19 35 09/30/16 11:07 100 09/30/16 08:00 99.2 111 18 121/68 Intake and Output 09/29/16 09/29/16 09/30/16 08:00 16:00 00:00 Intake Total 1239 ml 1124 ml 353 ml Output Total 200 ml 250 ml 50 ml Balance 1039 ml 874 ml 303 ml Result Diagram: 09/29/16 0342 09/30/16 0346 Other Results Microbiology Date/Time Procedure Status Source Growth 09/28/16 17:54 Stool Occult Blood (JOSE) - Final Complete Stool Stool HEMOCCULT NEGATIVE Imaging Last Impressions Chest X-Ray 09/24/16 0600 Signed Impressions: Service Date/Time: Saturday, September 24, 2016 03:23 - CONCLUSION: Stable chest x-ray with underinflation and atelectasis at the bases and stable mild airspace opacity at the right base. Claude Carrasco MD Abdomen/Pelvis CT 09/23/16 0000 Signed Impressions: Service Date/Time: Friday, September 23, 2016 15:22 - CONCLUSION: 1. Reduction in size of the hypodense fluid collection in the hepatogastric space with no residual hypodensity seen.. Stable position to be indwelling drainage catheter. 2. Decreasing size lower lung infiltrates. 3. Interval removal of right lower quadrant drain and interval development of a small to moderate size amount of fluid in the cul-de-sac. Evelio Boyd MD Upper Extremity Ultrasound 09/17/16 0000 Signed Impressions: Service Date/Time: Saturday, September 17, 2016 16:48 - CONCLUSION: 1. Positive nonocclusive deep venous thrombosis right internal jugular vein. 2. Nonocclusive superficial thrombosis in the left cephalic vein. Miki Banerjee MD Lower Extremity Ultrasound 09/17/16 0000 Signed Impressions: Service Date/Time: Saturday, September 17, 2016 17:33 - CONCLUSION: Normal examination. Miki Banerjee MD Head CT 09/17/16 0000 Signed Impressions: Service Date/Time: Saturday, September 17, 2016 20:47 - CONCLUSION: 1. No acute intracranial abnormalities. Miik Banerjee MD Chest CT 09/17/16 0000 Signed Impressions: Service Date/Time: Saturday, September 17, 2016 20:46 - CONCLUSION: 1. Multifocal airspace consolidation in the lungs, right greater than left most characteristic of bronchopneumonia. There is underlying mild to moderate emphysema. Small effusions. Miki Banerjee MD Abscess Drainage CT 09/13/16 0000 Signed Impressions: Service Date/Time: Tuesday, September 13, 2016 14:30 - CONCLUSION: Uncomplicated CT guided drainage. Carlo Cortes MD Retroperitoneal Abscess Drainage 09/01/16 0600 Signed Impressions: Service Date/Time: Thursday, September 01, 2016 13:05 - CONCLUSION: Uncomplicated CT guided drainage of a right lower quadrant fluid collection. Approximately 75 cc of fecal-like brown material was aspirated. The air and fluid collection may communicate with the inferior aspect of the midline wound on the anterior abdominal wall. Claude Carrasco MD Abdomen X-Ray 08/24/16 0000 Signed Impressions: Service Date/Time: August 07:44 - CONCLUSION: Gaseous distention of multiple bowel loops possible ileus. Jony Miller MD Enema w/Water Soluble 08/23/16 0000 Signed Impressions: Service Date/Time: Tuesday, August 23, 2016 10:12 - CONCLUSION: Anastomosis appears patent without extravasation. Aditya Rocha MD FACR CT Angiography 08/21/16 0000 Signed Impressions: Service Date/Time: Sunday, August 21, 2016 14:05 - CONCLUSION: 1. There is no evidence for central pulmonary emboli. 2. Minimal subcutaneous air as well as free intraperitoneal air. Aditya Rocha MD FACR Objective Remarks GENERAL: 56-year-old male, currently on mechanical ventilation via tracheostomy SKIN: Warm. Dry. No rash HEAD: Atraumatic. Normocephalic. NECK: Tracheostomy in place. Site clean, dry. CARDIOVASCULAR: S1-S2 regular no gallop or murmur. No JVD. RESPIRATORY: On mechanical ventilation, few scattered rhonchi appreciated in all lung nesbitt, no wheezing. GASTROINTESTINAL: Abdomen non distended. Midline incision clean and intact. BS active. Ostomy viable. MUSCULOSKELETAL: Extremities with trace bilateral upper and lower extremity edema, well perfused, warm. NEUROLOGICAL: Awake and alert and interactive. Moves all 4 extremities spontaneously. Nods head to questions. Date of Insertion: Aug 31, 2016 Date of Removal: Sep 12, 2016 Side: Right A/P Assessment and Plan NEURO/PSYCH: History of anxiety Acute toxic metabolic encephalopathymultifactorial Acetaminophen for fever Haldol 1 mg every 4 hours when necessary Ativan 0.5 mg every one hour when necessary agitation, and start scheduled Ativan 0.5 mg po q8 (RN reports severe anxiety) Morphine sulfate 3 milligrams IV every 3 hours when necessary pain -Off sedative drips, follow neuro status. -Head CT 09/11 no acute intracranial findings -EEG 09/12 revealed mild to moderate encephalopathy. No epileptiform activity. -Currently on Cerebyx 300 mg liquid at night. Level 5.7 on 09/18, 3.5 on 09/26 RESP: Acute hypoxemic respiratory failure COPD exacerbation Probable healthcare associated pneumonia -Continue ACV 22/600 0.75/5/40. Tolerating CPAP. Attempt 2 hour TP today. Increase SBT length as able. -Ventilator bundle -Albuterol nebs every 4 hours scheduled and when necessary duo nebs, Symbicort 2 puffs every 12 was discontinued while in ventilator. -Continue Pulmicort 0.5/2 twice a day -Broad-spectrum antibiotics as below -Continue daily C Pap trials. -Dr. Renteria/Pulmonary following -s/p tracheostomy 09/18 CV: Hypotension secondary to septic shock resolved History of hypertension Anuria necessitating hemodialysis. Off all vasopressors Currently on clonidine 0.1 3 times a day, Norvasc 5 mg twice a day and Coreg 3.125 twice a day. Labetalol prn GI/ Nutrition: Anastomotic leak status post exploratory laparotomy, I&D, loop ileostomy 08/24/16 s/p Laparoscopic robotic extensive ANNA MARIE, robotic LAR and small bowel resection Laparoscopic robotic ANNA MARIE, robotic LAR and small bowel resection with anastomotic leak History of diverticulitis -Status post exploratory laparotomy, I&D, loop ileostomy 08/24/16 -Postoperative management per Dr. Moffett. Broad-spectrum antibiotics as below. positive ostomy output -On Reglan to improve GI motility -On Glucerna 1.5 goal 60 cc an hour. Speech consulted for swallow eval. (May be able to avoid PEG) -Protonix for GI prophylaxis -All drains have been removed. Wound VAC discontinued. -CT abdomen/pelvis 09/23 revealed decreased fluid in the hepatogastric region. Removal of interval drains. Small to moderate fluid in the cul-de-sac. Renal/: Acute kidney injury History BPH Status post bilateral ureteral stents placed by Dr. Fraser 08/18 -Monitor renal function closely. Mg catheter. -IV fluids discontinued in view of anuric renal failure and hyperkalemia necessitating hemodialysis. Nephrology following. ID has cleared patient for permacath placement on 09/28. New right IJ hemodialysis catheter placed 09/01 -> D/C 09/13. New right femoral hemodialysis catheter placed 09/13 -> D/C 09/19 New LIJ vascath placed 09/18 -> D/C 09/25 New Left Subclavian vascath placed 09/26 -> d'/c New Right IJ Permacath 09/29 ID: Anastomotic leak Sepsis Probable HCAP Current regimen is Flagyl 500 mg IV every 6 hours, Diflucan 200 mg IV 24 hours and aztreonam 500 mg IV every 12 hours. Also tobramycin aerosols twice a day and pulse dose of vancomycin. Levaquin stopped. Pertinent culture 09/20 - wound - Pseudomonas and Iram Alb and Paropsilosis 09/17 - sputum - Pseudomonas 09/17 - blood cultures 2- no growth 09/13 - bronchial -Pseudomonas 09.13 - abdomen abscess -Pseudomonas/yeast 09/01: Abdominal wound - Pseudomonas, enterococcus, Iram 08/31 - line culture Pseudomonas/coag negative staph 08/31 - blood cultures 2 -no growth 08/31 - sputum - pending 08/29 - wound - Pseudomonas, group D enterococcus, C. albicans and yeast 08/25 blood cultures - no growth 08/25 sputum - Serratia/Klebsiella/Pseudomonas 08/24 - wound - no growth HEME: Leukocytosis Normocytic anemia Thrombocytosis RIJ DVT (nonocclusive) Left cephalic superficial thrombus -Monitor CBC, CMP, coags -Full anticoagulation resumed for right IJ DVT on 09/28. ENDO: -Sliding-scale insulin with Accu-Cheks every 6 hours for glycemic control. Levemir 20 units twice a day currently on hold FEN: Hyperphosphatemia Hyperkalemia Continue PhosLo 1334 mg 3 times a day for hyperphosphatemia. Hemodialysis per renal. Received D50/insulin/bicarbonate/Kayexalate on 09/25 for hyperkalemia. PROPH: -Bilateral lower extremity SCDs. Heparin gtt for RIJ DVT resumed 09/28/16 (held for scheduled trach). Protonix for GI prophylaxis LINES: -Left subclavian central line placed in the OR 08/24 - 08/31. Right subclavian central line placed 08/31 - 09/11 - RIJ dialysis catheter 08/25 -08/31. New right IJ hemodialysis catheter 09/01 - - Right femoral hemodialysis catheter 09/13 - 09/19 New LIJ vascath placed 09/18 -> D/C 09/25 New Left Subclavian vascath placed 09/26 Dr. Quarles called Natalia (pt's family) on 09/26 and and got her voice mail. Left message to call back. Patient will need LTAC placement-case management consulted. Discussed with Dr. Elana Moffett on 09/28, she is okay with proceeding with PEG tube placement however she will be talking to patient's family regarding that-will also get swallow eval to see whether patient and take by mouth diet . Dr. Moffett also is okay with transferring to LTAC following PEG tube placement. No significant changes overnight Mando Brown MD Sep 30, 2016 11:58
[2016-09-30] MEDS: LEVOFLOXACIN 250 MG PREMIX INJ 50 ML IV SCH (13:57)
[2016-09-30] MEDS: ONDANSETRON HCL 4 MG/2 ML VIAL IV PRN (15:30)
[2016-09-30] MEDS: HEPARIN-D5W INJ 250 ML IV SCH (17:52)
[2016-09-30] MEDS: PHENYTOIN SUSP 100 MG/4 ML CUP PO SCH (19:11)
[2016-09-30 19:30] LABS: APTT (PATIENT) 41.3 SEC (24.3-30.1)
--- NOTE | 2016-09-30 20:22 | HHI.PR ---
Subjective Remarks YOAA male with robotic surgery,COPD exac Underwent exp lap,I&d and loop iliostomy placement Remains on vent Had Trach no fever on Heparin For rt IJ DVT Had Permacath Had HD Tolerated T piece for 4 hrs Anxious, " I want to go home" Objective Vital Signs Vital Signs Date Time Temp Pulse Resp B/P Pulse Ox O2 Delivery O2 Flow Rate FiO2 09/30/16 20:00 99.1 110 18 133/71 100 09/30/16 20:00 35 09/30/16 20:00 35 09/30/16 20:00 110 09/30/16 19:52 100 35 09/30/16 16:00 100.4 116 18 107/62 100 09/30/16 16:00 116 09/30/16 15:42 100 35 09/30/16 14:30 95 35 09/30/16 14:28 35 09/30/16 12:00 99.2 119 26 125/64 100 09/30/16 12:00 119 09/30/16 11:58 99 T-piece 6.00 28 09/30/16 11:19 35 09/30/16 11:10 35 09/30/16 11:07 100 35 09/30/16 11:06 35 09/30/16 08:00 99.2 111 18 121/68 100 09/30/16 08:00 111 09/30/16 08:00 35 09/30/16 07:44 100 35 09/30/16 06:00 117 09/30/16 04:00 99.0 110 18 105/58 100 09/30/16 04:00 110 09/30/16 04:00 35 09/30/16 03:16 100 35 09/30/16 02:00 111 09/30/16 00:15 100 35 09/30/16 00:00 35 09/30/16 00:00 99.1 109 18 144/80 100 09/30/16 00:00 109 09/29/16 22:00 106 09/29/16 20:40 18 09/29/16 20:30 40 I/O 09/29/16 09/29/16 09/29/16 09/30/16 09/30/16 09/30/16 07:00 15:00 23:00 07:00 15:00 23:00 Intake Total 1239 ml 1124 ml 353 ml 1096 ml 994 ml Output Total 200 ml 250 ml 50 ml 370 ml 1575.0 ml 325.0 ml Balance 1039 ml 874 ml 303 ml 726 ml -581.0 ml -325.0 ml Intake Oral 50 ml 100 ml 50 ml 200 ml 120 ml IV Total 579 ml 378 ml 146 ml 457 ml 440 ml Tube Feeding 490 ml 446 ml 157 ml 439 ml 434 ml Other 120 ml 200 ml Output Urine Total 170 ml Stool Total 200 ml 250 ml 50 ml 200 ml 575 ml 325 ml Gastric Drainage Total 0 ml 0 ml Tube Feeding Residual Discard 0 ml 0 ml Hemodialysis 1000 ml # Voids 1 1 1 Result Diagram: 09/29/1634109/30/16345 Objective Remarks GENERAL: WBWN obese male, on Vent , sedated SKIN: Warm and dry. HEAD: Normocephalic. EYES: No scleral icterus. No injection or drainage. NECK: Supple, trachea midline. No JVD or lymphadenopathy. CARDIOVASCULAR: Regular rate and rhythm without murmurs, gallops, or rubs. RESPIRATORY: Breath sounds equal bilaterally. No accessory muscle use. exp rhonchi GASTROINTESTINAL: Abdomen soft, non-tender, Abd distended MUSCULOSKELETAL: No cyanosis, or edema. BACK: Nontender without obvious deformity. No CVA tenderness. A/P Assessment and Plan Resp Failure, on vent COPD exac S/p robotic surgery Anxiety S/p Exp lap PLAN: Cont vent support, aerosol nebs Nebuliser rx qid and prn Abx per ID Monitor lytes CPAP/ T-bar trial in Robbie Renteria MD Sep 30, 2016 20:22
[2016-09-30] MEDS: MORPHINE SULFATE 4 MG/ML INJ IV PRN (20:58)
[2016-09-30] MEDS: diphenhydrAMINE HCL 50 MG/ML VIAL IV PRN (23:07)
[2016-10-01] VITALS (16 sets, daily range): BP systolic 115–151; BP diastolic 60–72; PULSE 107–118; RESP 20–32; TEMP 98.3–99.1; O2SAT 97–100
[2016-10-01] MEDS: AZTREONAM INJ 500 MG in SODIUM CHLORIDE 0.9% INJ 100 ML IV SCH ×2 (01:14→13:05)
[2016-10-01] MEDS: FLUCONAZOLE 200 MG PREMIX BAG 100 ML IV SCH (01:14)
[2016-10-01 03:41] LABS: APTT (PATIENT) 41.8 SEC (24.3-30.1)
[2016-10-01 03:45] LABS: POTASSIUM 3.2 MEQ/L (3.5-5.1)
[2016-10-01] MEDS: RESP: ALBUTEROL 2.5 MG/3 ML NEB (SCH) INH ×6 (03:51→23:42)
[2016-10-01 03:56] LABS: BASOPHIL # 0.2 TH/MM3 (0-0.2); BASOPHIL % 1.5 % (0.0-2.0); EOSINOPHIL # 0.3 TH/MM3 (0-0.4); EOSINOPHIL % 2.2 % (0.0-4.0); HEMO FLAGS AUTO DIFF; LYMPH % 16.1 % (9.0-44.0); LYMPHOCYTE # 1.8 TH/MM3 (1.0-4.8); MEAN CELL VOLUME 87.2 FL (80.0-100.0); MEAN CORPUSCULAR HEMOGLOBIN 29.6 PG (27.0-34.0); NEUT % 70.2 % (16.0-70.0); PLATELET COUNT 291 TH/MM3 (150-450); RED BLOOD COUNT 2.35 MIL/MM3 (4.50-5.90); RED CELL DISTRIBUTION WIDTH 17.6 % (11.6-17.2); WHITE BLOOD COUNT 11.4 TH/MM3 (4.0-11.0)
[2016-10-01 04:00] LABS: HEMATOCRIT 20.5 % (39.0-51.0)
[2016-10-01] MEDS ORDERED: SODIUM CHLOR 0.9% 250 ML INJ 250 ML IV ONE (04:30)
[2016-10-01] MEDS: metroNIDAZOLE 500 MG INJ 100 ML IV SCH ×4 (05:00→22:12)
[2016-10-01] MEDS: ARTIFICIAL TEARS OPTH SOLN 15 ML BTL EACH EYE SCH ×3 (05:32→21:21)
[2016-10-01 05:52] LABS: BANDS 9 % (0-6); BASOPHILS 2 % (0-2); EOSINOPHILS 4 % (0-4); METAMYELOCYTES 1 % (0-1); MYELOCYTES 1 % (0-0); NEUTROPHIL # MANUAL DIFF 7.9 TH/MM3 (1.8-7.7); POLYS (SEG NEUTROPHILS) 58 % (16-70); TOXIC GRANULATION 1+ (NORMAL); TOXIC VACUOLATION PRESENT (NONE SEEN); WBC DIFF SAMPLE 100
[2016-10-01 05:53] LABS: PLATELET ESTIMATE SMEAR NORMAL (NORMAL); PLATELET MORPHOLOGY NORMAL (NORMAL)
[2016-10-01 05:54] LABS: KERATOCYTES OCC (NORMAL); SCAN/DIFF FINAL DIFF MANUAL
[2016-10-01] MEDS: cloNIDine HCL 0.1 MG TAB PO SCH ×3 (06:40→22:12)
[2016-10-01] MEDS: RESP: BUDESONIDE 0.5 MG/2 ML NEB NEB SCH ×2 (07:39→19:41)
[2016-10-01] MEDS: CHLORHEXIDINE 0.12% (ORAL KIT) 15 ML CUP MT SCH ×2 (08:00→20:00)
[2016-10-01] MEDS: RESP: TOBRAMYCIN SULFATE 300 MG/5 ML NEB NEB SCH ×2 (08:09→20:38)
[2016-10-01] MEDS: CALCIUM ACETATE 667 MG CAP PO SCH ×3 (08:58→17:42)
[2016-10-01] MEDS: LACTOBACILLUS ACIDOPHILUS TAB NG SCH ×3 (08:58→17:42)
[2016-10-01] MEDS: CARVEDILOL 3.125 MG TAB PO SCH ×2 (08:58→20:05)
[2016-10-01] MEDS: PANTOPRAZOLE SODIUM 40 MG VIAL IVP SCH (08:58)
[2016-10-01] MEDS: MUPIROCIN 2% OINT 1 APPLIC/GM SYR EACH NARE SCH ×2 (08:58→20:05)
[2016-10-01] MEDS: SODIUM CHLORIDE 0.9% FLUSH 5 ML FLUSH IVF SCH ×2 (08:58→21:21)
[2016-10-01] MEDS: INSULIN NovoLIN REGULAR SUPPLEMENTAL SCALE SQ SCH ×2 (09:00→21:00)
[2016-10-01] MEDS: HEPARIN-D5W INJ 250 ML IV SCH (09:46)
[2016-10-01] MEDS: amLODIPine BESYLATE 5 MG TAB PO SCH ×2 (09:58→20:05)
[2016-10-01] MEDS: LORazepam 2 MG/ML VIAL IV PUSH PRN ×2 (10:45→17:04)
[2016-10-01] MEDS: MORPHINE SULFATE 4 MG/ML INJ IV PRN ×2 (10:45→14:50)
--- NOTE | 2016-10-01 10:56 | HHI.CCPN ---
Subjective Remarks/Hospital Course 08/25: Patient is a 58-year-old male with past medical history significant COPD who, on 08/18/16, underwent Laparoscopic robotic extensive lysis of adhesions, low anterior resection and small bowel resection. Apparently he was brought in by Dr. Moffett for Diverticulitis. Patient has a history of hypertension, COPD, and continues to smoke one pack of cigarettes a day. Postoperatively patient became progressively short of breath. Pulmonary was consulted on 08/21/16 as the patient was becoming more hypoxemic requiring BiPAP. CT of the chest PE protocol did not show any pulmonary embolism. Patient was placed on breathing treatments and IV Solu-Medrol 40 mg every [address] Renteria. Today a.m. patient was on 100% nonrebreather. Patient was diagnosed with an anastomotic leak today and was taken back to the OR by Dr. Moffett. He underwent exploratory laparotomy, I&D and loop ileostomy today. Postop patient remained hypoxemic requiring 70% oxygen, and hence was left intubated and critical care medicine was consulted. Dr. Arce evaluated the patient in ICU. He remained hypoxemic, FiO2 70%. Chest x-ray shows bibasilar mild infiltrates. On sedation lightening patient became very hypertensive, not following commands probably secondary to residual NM blockade received while being transported to ICU. Patient on receiving vancomycin Levaquin and Flagyl per Dr. Moffett. Dr. Arce added cefepime to cover for Pseudomonas. Holding Solu-Medrol due to anastomotic leak. 08/26: Remains sedated, orally intubated on mechanical ventilation. Went into anuric renal failure yesterday which did not respond to fluid boluses and diuretics hence was started on hemodialysis after placement of right IJ Vas- Cath. Currently sedated, arousable, remains orally intubated on mechanical ventilation. Blood pressure borderline last evening following dialysis for which she was started on low-dose vasopressin 0.03 units per minute and Levophed which is currently at 1 jose per minute. Started on TPN last night following which he has been hyperglycemic. 08/27: Sedated, arousable, orally intubated on mechanical ventilation. Spiking fevers overnight. Off Levophed, transiently off vasopressin. Remains on TPN. 08/28: Remains sedated, arousable, orally intubated on mechanical ventilation. On low-dose vasopressin. TPN continues. Made about 500 cc of urine in the last 24 hours. 08/29: In sedated, arousable, orally intubated on mechanical ventilation. Remains on TPN. Dirty drainage from left-sided SERGEI drain noted overnight. Dr. Moffett obtaining CT abdomen pelvis with oral contrast and ID consulted. 08/30: CURRENT TEMPERATURE 99. Status post 4 L hemodialysis today. No current change in therapy. White blood cell count remained stable. Off vasopressors. Arousable to voice. Versed has been discontinued. We'll attempt CPAP trials again today. 08/31: MAXIMUM TEMPERATURE 100.4. Currently 100.1. Currently resting in bed in no acute distress. Continues with scant drainage from bilateral JPs. We'll attempt CPAP trial again today. Positive stool from ostomy bag 09/01: Tmax 99.8. Currently 99.3. Placement of the new right IJ vas catheter today. Plan for IR to possibly drain right lower quadrant fluid collection. Arousable and moves all 4 extremity spontaneously. 09/02: Currently afebrile. Noted placement of iron drain with accordion drain. Growing Pseudomonas. Lasted only 2 hours on CPAP trials today. 09/03: Tolerated SBT for only 30 mins and required PS 20. Not ready to extubate. 09/04: Tachypnea related to anxiety? or metabolic acidosis. Will check VBG. Not tolerating SBT. Anemia. Transfuse during HD. 09/05: Remains very tachypneic on SBTs. Unable to extubate. 09/06: Leukocytosis and bandemia. Acts like ongoing sepsis. 09/07: No significant changes. Afebrile. Tolerating TFs as recommended by CRS. Will transition from TPN to enteral feeds now. 09/08: Bandemia persists. Tolerating full TFs. D/c'd TPN. Glucose control acceptable. 09/09: Tolerating longer CPAP/PS trials. 09/10: Stronger respiratory effort. Try to extubate today. 09/11: Stable hemodynamics, marginal respiratory function. 09/11 update 1800 hrs: Patient developed sudden hyperventilation to 55-60/min, hypertensive urgency to 220/120s, unresponsive state, started versed 10 mg/hr after 10 mg iv. Load with cerebyx, get head CT, EEG in a.m. 09/12: BP and pulse rate control improved with sedation. Etiology unclear. Suspected intracranial process but CT head normal. Possibly seizures. EEG pending this morning. WBC with bandemia persists. 09/13: CURRENT TEMPERATURE 99. Heart rate and blood pressure control. Noted T changes last night noted a potassium 8.2. Noted hemodialysis catheter placed by overnight television repairman in right femoral vein and hemodialysis currently undergoing. Plan for drainage of epigastric fluid collection by IR today. 09/14: Currently afebrile. Status post prior drainage of epigastric fluid area. Currently 60 ccwhite pus accordian drain. Status post bronchoscopy yesterday. 09/15 - intubation day #22. Family waiting another 24 hours to consider tracheostomy. He is not able to be extubated. Currently undergoing hemodialysis. Likely dialysis dependent. 09/16: Tmax 100.2. Blood pressure slowly trending downward. He transfuse PRBCs and albumin bolus prior to hemodialysis today. Intubation day #23. Family currently agreeable to tracheostomy but I'm unable to perform until Sunday. Positive BM. 09/17: Tmax 101. Intubation day #24. Tolerating tube feeding. Currently on Versed and fentanyl drips. 09/18: Remains sedated, orally intubated on mechanical ventilation. Scheduled for percutaneous tracheostomy today. Was dialyzed yesterday. Percutaneous drains [address] Ileostomy with good output. Wound VAC in place over anterior abdominal incision site. 09/19: Remains sedated, on mechanical ventilation via tracheostomy. Patient was noted to have some blood oozing from around tracheostomy site this morning as well as around Vas-Cath. Pressure dressing to be applied around Vas-Cath and packing around tracheostomy site and Dr. Howard informed. 09/20: Remains on fentanyl. On mechanical ventilation via tracheostomy. Continues to have fevers. No further bleeding from tracheostomy site or Vas- Cath site. 09/21: Remains on mechanical ventilation via tracheostomy. Resuming subcutaneous heparin today. No further bleeding from Vas-Cath or tracheostomy site. 09/22: Remains on mechanical ventilation, daily C Pap trials. Awake and alert this morning, following commands. 09/23: Tmax 100.2. Currently afebrile. Some oozing from hemodialysis catheter/ left IJ today. Plan for -2 L. Currently on mechanical ventilation while on hemodialysis. Awake and alert and following commands. 09/24: MAXIMUM TEMPERATURE 100.4. Currently afebrile. Noted hyperkalemia this am. Protocol initiated. Will recheck potassium in 3 hours. Awake and alert and following commands. 09/25: Tmax 101.1. Positive BM overnight likely secondary to Kayexalate provided for hyperkalemia. Received hemodialysis and likely will need to receive again today due to hypercatabolic state. Arousable on the ventilator and follows commands. 09/26: Awake and alert, following commands. Remains on mechanical ventilation via tracheostomy. Wound VAC in place over anterior abdominal wall incision site. Ileostomy functional. Tolerating tube feeds. 09/27: Remains awake and alert, following commands. On mechanical ventilation via tracheostomy. Daily C Pap trials. Tolerating tube feeds. Ileostomy functional. Patient will require PEG tube when okay with colorectal surgery. Wound VAC remains in place over the lower part of surgical incision site over anterior abdominal wall. Subjective 09/28: Awake and alert. On mechanical ventilation via tracheostomy. Started on heparin drip today for full anticoagulation for right IJ DVT. Discussed with Dr. Elana Moffett who is okay with proceeding with PEG tube placement however she is going to discuss this with the patient's family. ID has cleared patient for permacath placement. Needs LTAC placement for vent weaning. 09/29: Slightly tachypneic on CPAP, but appears comfortable. Get swallow eval. set up to chair today. Attempt TP. ID cleared for permacath 09/30: Right IJ PermaCath placed 09/29. Tolerating CPAP trail. 10/01: Stable hemodynamics, strong on CPAP/T-piece. Objective Vital Signs Date Time Temp Pulse Resp B/P Pulse Ox O2 Delivery O2 Flow Rate FiO2 10/01/16 09:08 100 T-piece 40 10/01/16 08:00 98.8 108 20 115/70 09/30/16 11:58 6.00 Intake and Output 09/30/16 09/30/16 10/01/16 08:00 16:00 00:00 Intake Total 1096 ml 994 ml 840 ml Output Total 370.0 ml 1775.0 ml 525.0 ml Balance 726.0 ml -781.0 ml 315.0 ml Result Diagram: 10/01/16 0302 10/01/16 0302 Other Results Microbiology Date/Time Procedure Status Source Growth 09/28/16 17:54 Stool Occult Blood (JOSE) - Final Complete Stool Stool HEMOCCULT NEGATIVE Imaging Last Impressions Chest X-Ray 09/24/16 0600 Signed Impressions: Service Date/Time: Saturday, September 24, 2016 03:23 - CONCLUSION: Stable chest x-ray with underinflation and atelectasis at the bases and stable mild airspace opacity at the right base. Claude Carrasco MD Abdomen/Pelvis CT 09/23/16 0000 Signed Impressions: Service Date/Time: Friday, September 23, 2016 15:22 - CONCLUSION: 1. Reduction in size of the hypodense fluid collection in the hepatogastric space with no residual hypodensity seen.. Stable position to be indwelling drainage catheter. 2. Decreasing size lower lung infiltrates. 3. Interval removal of right lower quadrant drain and interval development of a small to moderate size amount of fluid in the cul-de-sac. Evelio Boyd MD Upper Extremity Ultrasound 09/17/16 0000 Signed Impressions: Service Date/Time: Saturday, September 17, 2016 16:48 - CONCLUSION: 1. Positive nonocclusive deep venous thrombosis right internal jugular vein. 2. Nonocclusive superficial thrombosis in the left cephalic vein. Miki Banerjee MD Lower Extremity Ultrasound 09/17/16 0000 Signed Impressions: Service Date/Time: Saturday, September 17, 2016 17:33 - CONCLUSION: Normal examination. Miki Banerjee MD Head CT 09/17/16 0000 Signed Impressions: Service Date/Time: Saturday, September 17, 2016 20:47 - CONCLUSION: 1. No acute intracranial abnormalities. Miki Banerjee MD Chest CT 09/17/16 0000 Signed Impressions: Service Date/Time: Saturday, September 17, 2016 20:46 - CONCLUSION: 1. Multifocal airspace consolidation in the lungs, right greater than left most characteristic of bronchopneumonia. There is underlying mild to moderate emphysema. Small effusions. Miki Banerjee MD Abscess Drainage CT 09/13/16 0000 Signed Impressions: Service Date/Time: Tuesday, September 13, 2016 14:30 - CONCLUSION: Uncomplicated CT guided drainage. Carlo Cortes MD Retroperitoneal Abscess Drainage 09/01/16 0600 Signed Impressions: Service Date/Time: Thursday, September 01, 2016 13:05 - CONCLUSION: Uncomplicated CT guided drainage of a right lower quadrant fluid collection. Approximately 75 cc of fecal-like brown material was aspirated. The air and fluid collection may communicate with the inferior aspect of the midline wound on the anterior abdominal wall. Claude Carrasco MD Abdomen X-Ray 08/24/16 0000 Signed Impressions: Service Date/Time: August 07:44 - CONCLUSION: Gaseous distention of multiple bowel loops possible ileus. Jony Miller MD Enema w/Water Soluble 08/23/16 0000 Signed Impressions: Service Date/Time: Tuesday, August 23, 2016 10:12 - CONCLUSION: Anastomosis appears patent without extravasation. Aditya Rocha MD FACR CT Angiography 08/21/16 0000 Signed Impressions: Service Date/Time: Sunday, August 21, 2016 14:05 - CONCLUSION: 1. There is no evidence for central pulmonary emboli. 2. Minimal subcutaneous air as well as free intraperitoneal air. Aditya Rocha MD FACR Objective Remarks GENERAL: 56-year-old male. SKIN: Warm. Dry. No rash HEAD: Atraumatic. Normocephalic. NECK: Tracheostomy in place. Site clean, dry. CARDIOVASCULAR: S1-S2 regular no gallop or murmur. No JVD. RESPIRATORY: Intermittently PPV, few scattered rhonchi appreciated in all lung [place], no wheezing. Good jorge air movement GASTROINTESTINAL: Abdomen non distended. Midline incision clean and intact. BS active. Ostomy viable. MUSCULOSKELETAL: Extremities with trace bilateral upper and lower extremity edema, well perfused, warm. NEUROLOGICAL: Awake and alert and interactive. Moves all 4 extremities spontaneously. Nods head to questions. Date of Insertion: Aug 31, 2016 Date of Removal: Sep 12, 2016 Side: Right A/P Assessment and Plan NEURO/PSYCH: History of anxiety Acute toxic metabolic encephalopathymultifactorial Acetaminophen for fever Haldol 1 mg every 4 hours when necessary Ativan 0.5 mg every one hour when necessary agitation, and start scheduled Ativan 0.5 mg po q8 (RN reports severe anxiety) Morphine sulfate 3 milligrams IV every 3 hours when necessary pain -Off sedative drips, follow neuro status. -Head CT 09/11 no acute intracranial findings -EEG 09/12 revealed mild to moderate encephalopathy. No epileptiform activity. -Currently on Cerebyx 300 mg liquid at night. Level 5.7 on 3/27, 3.5 on 09/26 RESP: Acute hypoxemic respiratory failure COPD exacerbation Probable healthcare associated pneumonia -Continue ACV 22/ 0.75/5/40. Tolerating CPAP. Attempt 2 hour TP today. Increase SBT length as able. -Ventilator bundle -Albuterol nebs every 4 hours scheduled and when necessary duo nebs, Symbicort 2 puffs every 12 was discontinued while in ventilator. -Continue Pulmicort 0.5/2 twice a day -Broad-spectrum antibiotics as below -Continue daily C Pap trials. -Dr. Renteria/Pulmonary following -s/p tracheostomy 09/18 CV: Hypotension secondary to septic shock resolved History of hypertension Anuria necessitating hemodialysis. Off all vasopressors Currently on clonidine 0.1 3 times a day, Norvasc 5 mg twice a day and Coreg 3.125 twice a day. Labetalol prn GI/ Nutrition: Anastomotic leak status post exploratory laparotomy, I&D, loop ileostomy 08/24/16 s/p Laparoscopic robotic extensive ANNA MARIE, robotic LAR and small bowel resection Laparoscopic robotic ANNA MARIE, robotic LAR and small bowel resection with anastomotic leak History of diverticulitis -Status post exploratory laparotomy, I&D, loop ileostomy 08/24/16 -Postoperative management per Dr. Moffett. Broad-spectrum antibiotics as below. positive ostomy output -On Reglan to improve GI motility -On Glucerna 1.5 goal 60 cc an hour. Speech consulted for swallow eval. (May be able to avoid PEG) -Protonix for GI prophylaxis -All drains have been removed. Wound VAC discontinued. -CT abdomen/pelvis 09/23 revealed decreased fluid in the hepatogastric region. Removal of interval drains. Small to moderate fluid in the cul-de-sac. Renal/: Acute kidney injury History BPH Status post bilateral ureteral stents placed by Dr. Fraser 08/18 -Monitor renal function closely. Mg catheter. -IV fluids discontinued in view of anuric renal failure and hyperkalemia necessitating hemodialysis. Nephrology following. ID has cleared patient for permacath placement on 09/28. New right IJ hemodialysis catheter placed 09/01 -> D/C 09/13. New right femoral hemodialysis catheter placed 09/13 -> D/C 09/19 New LIJ vascath placed 09/18 -> D/C 09/25 New Left Subclavian vascath placed 09/26 -> d'/c New Right IJ Permacath 09/29 ID: Anastomotic leak Sepsis Probable HCAP Current regimen is Flagyl 500 mg IV every 6 hours, Diflucan 200 mg IV 24 hours and aztreonam 500 mg IV every 12 hours. Also tobramycin aerosols twice a day and pulse dose of vancomycin. Levaquin stopped. Pertinent culture 09/20 - wound - Pseudomonas and Iram Alb and Paropsilosis 09/17 - sputum - Pseudomonas 09/17 - blood cultures 2- no growth 09/13 - bronchial -Pseudomonas 09.13 - abdomen abscess -Pseudomonas/yeast 09/01: Abdominal wound - Pseudomonas, enterococcus, Iram 08/31 - line culture Pseudomonas/coag negative staph 08/31 - blood cultures 2 -no growth 08/31 - sputum - pending 08/29 - wound - Pseudomonas, group D enterococcus, C. albicans and yeast 08/25 blood cultures - no growth 08/25 sputum - Serratia/Klebsiella/Pseudomonas 08/24 - wound - no growth HEME: Leukocytosis Normocytic anemia Thrombocytosis RIJ DVT (nonocclusive) Left cephalic superficial thrombus -Monitor CBC, CMP, coags -Full anticoagulation resumed for right IJ DVT on 09/28. Tx one unit. ENDO: -Sliding-scale insulin with Accu-Cheks every 6 hours for glycemic control. Levemir 20 units twice a day currently on hold FEN: Hyperphosphatemia Hyperkalemia Continue PhosLo 1334 mg 3 times a day for hyperphosphatemia. Hemodialysis per renal. Received D50/insulin/bicarbonate/Kayexalate on 09/25 for hyperkalemia. PROPH: -Bilateral lower extremity SCDs. Heparin gtt for RIJ DVT resumed 09/28/16 (held for scheduled trach). Protonix for GI prophylaxis LINES: -Left subclavian central line placed in the OR 08/24 - 08/31. Right subclavian central line placed 08/31 - 09/11 - RIJ dialysis catheter 08/25 -08/31. New right IJ hemodialysis catheter 09/01 - - Right femoral hemodialysis catheter 09/13 - 09/19 New LIJ vascath placed 09/18 -> D/C 09/25 New Left Subclavian vascath placed 09/26 Dr. Quarles called Natalia (pt's family) on 09/26 and and got her voice mail. Left message to call back. Patient will need LTAC placement-case management consulted. Discussed with Dr. Elana Moffett on 09/28, she is okay with proceeding with PEG tube placement however she will be talking to patient's family regarding that-will also get swallow eval to see whether patient and take by mouth diet . Dr. Moffett also is okay with transferring to LTAC following PEG tube placement. No significant changes overnight. Transfuse one unit PRBC. Mando Brown MD Oct 01, 2016 10:56
--- NOTE | 2016-10-01 11:25 | HHI.NPPN ---
Subjective General Problems: Edema Renal Failure: Acute Additional Remarks Tolerated HD yesterday with new right IJ tunneled HD catheter Review of Systems General Constitutional: Fever General Remarks nods head no when asked about pain or SOB. Musculoskeletal MS Remarks generalized pain Objective Data Data 09/30/16 10/01/16 19:00 07:00 Intake Total 994 ml 1824 ml Output Total 1900.0 ml 700.0 ml Balance -906.0 ml 1124.0 ml Intake Oral 120 ml 50 ml IV Total 440 ml 788 ml Tube Feeding 434 ml 986 ml Stool Total 900 ml 700 ml Gastric Drainage Total 0 ml Tube Feeding Residual Discard 0 ml 0 ml Hemodialysis 1000 ml # Voids 1 1 Vital Signs Date Time Temp Pulse Resp B/P Pulse Ox O2 Delivery O2 Flow Rate FiO2 10/01/16 09:08 100 T-piece 40 10/01/16 08:30 35 10/01/16 08:28 35 10/01/16 08:00 98.8 108 20 115/70 100 10/01/16 08:00 108 10/01/16 07:40 100 35 10/01/16 06:00 109 10/01/16 04:00 35 10/01/16 04:00 98.8 108 30 126/68 100 10/01/16 04:00 108 10/01/16 03:54 100 35 10/01/16 02:00 111 10/01/16 00:04 100 Ventilator 35 10/01/16 00:00 98.7 108 23 116/60 100 10/01/16 00:00 35 10/01/16 00:00 112 09/30/16 23:59 100 35 09/30/16 22:00 117 09/30/16 21:10 20 09/30/16 20:00 99.1 110 18 133/71 100 09/30/16 20:00 35 09/30/16 20:00 35 09/30/16 20:00 110 09/30/16 19:52 100 35 09/30/16 16:00 100.4 116 18 107/62 100 09/30/16 16:00 116 09/30/16 15:42 100 35 09/30/16 14:30 95 35 09/30/16 14:28 35 09/30/16 12:00 99.2 119 26 125/64 100 09/30/16 12:00 119 4/8/17 11:58 99 T-piece 6.00 28 -: 10/01/16 0302 10/01/16 0302 Tubes & Lines: Vas-Cath Tubes & Lines Comment trach TLC, NG tube (R) SERGEI drain RLQ epigastric drain wound vac lower abdomen Drip Comment none Physical Exam General Appearance: Well Developed, No Acute Distress Throat Throat Exam: Oral Mucosa [place] & Moist Pulmonary Resp Exam: Breath Sounds Equal, No Distress, Crackles, Sputum, Diminished Breath Sounds Cardiology CV Exam: Regular, Normal Sinus Rhythm Gastrointestinal/Abdomen GI Exam: Distended Musculoskeletal MS Exam: Joints Intact, Atrophy, Unable to Ambulate Integumentary Skin Exam: Warm, Dry Extremeties Extremities Exam: No Edema, Pedal Pulses Palpable Neurologic Neuro Exam: Alert, Awake, Moving All Extremities VTE Prophylaxis Device: SCDs Assessment/Plan Discussed Condition With: Patient Assessment Summary: VIRIDIANA/Acute Renal Failure, Acute Tubular Necrosis, Hypertension Problem List: (1) Acute renal failure Plan: He has developed ATN due to sepsis. Dialysis initiated 3/3 MWF dialysis., had limited treatment Sunday and Sunday due to poor catheter flow: New tunneled HD catheter placed with IR Sunday. Tolerated HD well yesterday, with BF 400 with new catheter. Plan next HD Sunday. UF as tolerated for assistance with CPAP trials minimal UOP- remains dialysis dependence. ongoing diarrhea with hypokalemia today - will given 20meq KCl, follow AM labs and adjust with dialysis tomorrow. await renal recovery Avoid nephrotoxic agents. (2) Sepsis Plan: ID following. Now on Aztreonam, Fluconazole, Flagyl, Tobramycin nebulizer. blood culture negative he is on droplet for pseudomonas in sputum Problem Qualifiers (1) Acute renal failure: Qualified Code: N17.0 - Acute renal failure with tubular necrosis Dg Leung MD Oct 01, 2016 11:25
[2016-10-01] MEDS ORDERED: POTASSIUM CHLOR 20 MEQ PREMIX 100 ML IV ONE (11:30)
[2016-10-01 11:35] LABS: APTT (PATIENT) 42.4 SEC (24.3-30.1)
[2016-10-01] MEDS ORDERED: POTASSIUM CHLORIDE 20 MEQ PWD PACKET NG ONE (15:30)
[2016-10-01 16:26] LABS: APTT (PATIENT) 37.6 SEC (24.3-30.1)
[2016-10-01] MEDS: RESP: ALBUTEROL 2.5 MG/IPRATROPIUM 0.5 MG NEB (PRN) NEB (19:41)
[2016-10-01] MEDS ORDERED: diphenhydrAMINE HCL 50 MG/ML VIAL IV ONE (20:00)
--- NOTE | 2016-10-01 20:03 | HHI.PR ---
Subjective Remarks YOAA male with robotic surgery,COPD exac Underwent exp lap,I&d and loop iliostomy placement Remains on vent Had Trach no fever on Heparin For rt IJ DVT Had Permacath Had HD Tolerated T piece for 10 hrs tolerated PO Objective Vital Signs Vital Signs Date Time Temp Pulse Resp B/P Pulse Ox O2 Delivery O2 Flow Rate FiO2 10/01/16 19:44 100 35 10/01/16 16:00 115 10/01/16 16:00 99.1 115 20 136/71 100 10/01/16 15:27 35 10/01/16 15:27 100 35 10/01/16 12:00 98.3 111 32 151/72 97 10/01/16 12:00 111 10/01/16 09:08 100 T-piece 40 10/01/16 08:30 35 10/01/16 08:28 35 10/01/16 08:00 98.8 108 20 115/70 100 10/01/16 08:00 108 10/01/16 07:40 100 35 10/01/16 06:00 109 10/01/16 04:00 35 10/01/16 04:00 98.8 108 30 126/68 100 10/01/16 04:00 108 10/01/16 03:54 100 35 10/01/16 02:00 111 10/01/16 00:04 100 Ventilator 35 10/01/16 00:00 98.7 108 23 116/60 100 10/01/16 00:00 35 10/01/16 00:00 112 09/30/16 23:59 100 35 09/30/16 22:00 117 09/30/16 21:10 20 09/30/16 20:00 99.1 110 18 133/71 100 09/30/16 20:00 35 09/30/16 20:00 35 09/30/16 20:00 110 I/O 09/30/16 09/30/16 09/30/16 10/01/16 10/01/16 10/01/16 07:00 15:00 23:00 07:00 15:00 23:00 Intake Total 1096 ml 994 ml 840 ml 984 ml 1541 ml Output Total 370 ml 1575.0 ml 725.0 ml 300 ml 275 ml 225 ml Balance 726 ml -581.0 ml 115.0 ml 684 ml 1266 ml -225 ml Intake Oral 200 ml 120 ml 50 ml 240 ml IV Total 457 ml 440 ml 300 ml 488 ml 650 ml Tube Feeding 439 ml 434 ml 490 ml 496 ml 401 ml Packed Cells 250 ml Output Urine Total 170 ml Stool Total 200 ml 575 ml 725 ml 300 ml 275 ml 225 ml Gastric Drainage Total 0 ml 0 ml Tube Feeding Residual Discard 0 ml 0 ml 0 ml 0 ml Hemodialysis 1000 ml # Voids 1 0 1 0 Result Diagram: 10/01/1630110/01/16301 Objective Remarks GENERAL: WBWN obese male, on Vent , sedated SKIN: Warm and dry. HEAD: Normocephalic. EYES: No scleral icterus. No injection or drainage. NECK: Supple, trachea midline. No JVD or lymphadenopathy. CARDIOVASCULAR: Regular rate and rhythm without murmurs, gallops, or rubs. RESPIRATORY: Breath sounds equal bilaterally. No accessory muscle use. exp rhonchi GASTROINTESTINAL: Abdomen soft, non-tender, Abd distended MUSCULOSKELETAL: No cyanosis, or edema. BACK: Nontender without obvious deformity. No CVA tenderness. A/P Assessment and Plan Resp Failure, on vent COPD exac S/p robotic surgery Anxiety S/p Exp lap PLAN: Cont vent support, aerosol nebs Nebuliser rx qid and prn Abx per ID Monitor lytes T -piece in Robbie Miller MD Oct 01, 2016 20:03
[2016-10-01] MEDS: PHENYTOIN SUSP 100 MG/4 ML CUP PO SCH (20:05)
[2016-10-01] MEDS ORDERED: diphenhydrAMINE HCL 50 MG/ML VIAL IV PRN (21:00)
[2016-10-01] MEDS: diphenhydrAMINE HCL 50 MG/ML VIAL IV PRN (22:12)
[2016-10-02] VITALS (18 sets, daily range): BP systolic 120–149; BP diastolic 58–74; PULSE 100–120; RESP 19–31; TEMP 98.3–99.7; O2SAT 100
[2016-10-02] MEDS: AZTREONAM INJ 500 MG in SODIUM CHLORIDE 0.9% INJ 100 ML IV SCH ×3 (00:29→23:57)
[2016-10-02] MEDS: FLUCONAZOLE 200 MG PREMIX BAG 100 ML IV SCH ×2 (00:29→23:57)
[2016-10-02] MEDS: LORazepam 2 MG/ML VIAL IV PUSH PRN ×3 (01:36→23:58)
[2016-10-02] MEDS: RESP: ALBUTEROL 2.5 MG/3 ML NEB (SCH) INH ×6 (03:45→19:36)
[2016-10-02 04:05] LABS: BASOPHIL # 0.1 TH/MM3 (0-0.2); BASOPHIL % 1.3 % (0.0-2.0); EOSINOPHIL # 0.3 TH/MM3 (0-0.4); EOSINOPHIL % 2.7 % (0.0-4.0); HEMATOCRIT 22.8 % (39.0-51.0); LYMPH % 14.1 % (9.0-44.0); LYMPHOCYTE # 1.5 TH/MM3 (1.0-4.8); MEAN CELL VOLUME 87.3 FL (80.0-100.0); MEAN CORPUSCULAR HEMOGLOBIN 29.8 PG (27.0-34.0); MEAN CORPUSCULAR HGB CONC 34.2 % (32.0-36.0); MONO % 8.6 % (0.0-8.0); NEUT % 73.3 % (16.0-70.0); PLATELET COUNT 289 TH/MM3 (150-450); RED BLOOD COUNT 2.61 MIL/MM3 (4.50-5.90); RED CELL DISTRIBUTION WIDTH 17.2 % (11.6-17.2); WHITE BLOOD COUNT 10.9 TH/MM3 (4.0-11.0)
[2016-10-02 04:07] LABS: HEMO FLAGS AUTO DIFF
[2016-10-02 04:25] LABS: BICARBONATE 26.8 MEQ/L (21.0-32.0)
[2016-10-02 04:26] LABS: APTT (PATIENT) 41.1 SEC (24.3-30.1)
[2016-10-02] MEDS: cloNIDine HCL 0.1 MG TAB PO SCH ×3 (05:20→22:28)
[2016-10-02] MEDS: SODIUM CHLORIDE 0.9% FLUSH 10 ML FLUSH IVF PRN ×2 (05:21→20:00)
[2016-10-02] MEDS: MORPHINE SULFATE 4 MG/ML INJ IV PRN ×4 (05:21→22:28)
[2016-10-02] MEDS: metroNIDAZOLE 500 MG INJ 100 ML IV SCH ×4 (05:22→22:30)
[2016-10-02 05:23] LABS: BANDS 7 % (0-6); BASOPHILS 1 % (0-2); METAMYELOCYTES 3 % (0-1); MYELOCYTES 1 % (0-0); PLATELET ESTIMATE SMEAR NORMAL (NORMAL); PLATELET MORPHOLOGY NORMAL (NORMAL); POLYS (SEG NEUTROPHILS) 72 % (16-70); SCAN/DIFF FINAL DIFF MANUAL; WBC DIFF SAMPLE 100
[2016-10-02] MEDS: ARTIFICIAL TEARS OPTH SOLN 15 ML BTL EACH EYE SCH ×3 (06:00→22:30)
[2016-10-02] MEDS: CHLORHEXIDINE 0.12% (ORAL KIT) 15 ML CUP MT SCH ×2 (08:00→19:58)
[2016-10-02] MEDS: PANTOPRAZOLE SODIUM 40 MG VIAL IVP SCH (08:21)
[2016-10-02] MEDS: LACTOBACILLUS ACIDOPHILUS TAB NG SCH ×3 (08:21→18:00)
[2016-10-02] MEDS: CARVEDILOL 3.125 MG TAB PO SCH ×2 (08:21→20:00)
[2016-10-02] MEDS: MUPIROCIN 2% OINT 1 APPLIC/GM SYR EACH NARE SCH ×2 (08:21→19:58)
[2016-10-02] MEDS: CALCIUM ACETATE 667 MG CAP PO SCH ×3 (08:21→18:00)
[2016-10-02] MEDS: amLODIPine BESYLATE 5 MG TAB PO SCH (08:21)
[2016-10-02] MEDS: SODIUM CHLORIDE 0.9% FLUSH 5 ML FLUSH IVF SCH ×2 (08:22→21:00)
[2016-10-02] MEDS: RESP: BUDESONIDE 0.5 MG/2 ML NEB NEB SCH ×2 (08:55→19:36)
[2016-10-02] MEDS: RESP: TOBRAMYCIN SULFATE 300 MG/5 ML NEB NEB SCH (08:55)
[2016-10-02] MEDS: INSULIN NovoLIN REGULAR SUPPLEMENTAL SCALE SQ SCH ×2 (09:00→21:00)
--- NOTE | 2016-10-02 10:28 | HHI.NPPN ---
Subjective General Problems: Edema Renal Failure: Acute Interval History He is awake, on vent via trach. Receiving dialysis via permcath with good flow. The pt is awake, son is at bedside. He has NG tube and wants it out. States "I am done with all of this". Additional Remarks Tolerated HD yesterday with new right IJ tunneled HD catheter (Fransisca Canela) Review of Systems General Constitutional: Fever, Fatigue General Remarks nods head no when asked about pain or SOB. (Fransisca Canela) Musculoskeletal MS Remarks generalized pain (Fransisca Canela) Objective Data Data 10/01/16 10/02/16 19:00 07:00 Intake Total 1541 ml 200 ml Output Total 500 ml 550 ml Balance 1041 ml -350 ml Intake Oral 240 ml IV Total 650 ml 200 ml Tube Feeding 401 ml Packed Cells 250 ml Output Urine Total 250 ml Stool Total 500 ml 300 ml Gastric Drainage Total 0 ml Tube Feeding Residual Discard 0 ml # Voids 0 1 Vital Signs Date Time Temp Pulse Resp B/P Pulse Ox O2 Delivery O2 Flow Rate FiO2 10/02/16 08:56 100 35 10/02/16 06:00 110 10/02/16 04:00 99.4 110 31 141/71 100 10/02/16 04:00 35 10/02/16 04:00 108 10/02/16 03:46 100 35 10/02/16 02:00 105 10/02/16 00:00 106 10/02/16 00:00 35 10/02/16 00:00 99.7 106 28 136/72 100 10/01/16 23:44 100 35 10/01/16 22:00 107 10/01/16 20:00 118 10/01/16 20:00 35 10/01/16 20:00 98.6 118 20 142/72 100 10/01/16 19:44 100 35 10/01/16 16:00 115 10/01/16 16:00 99.1 115 20 136/71 100 10/01/16 15:27 35 10/01/16 15:27 100 35 10/01/16 12:00 98.3 111 32 151/72 97 10/01/16 12:00 111 (Fransisca Canela) -: 10/02/1632910/02/16329 Tubes & Lines: Perma-Cath Tubes & Lines Comment trach TLC, NG tube (R) SERGEI drain RLQ epigastric drain wound vac lower abdomen Drip Comment heparin (Fransisca Canela) Physical Exam General Appearance: Well Developed, No Acute Distress Appearance Remarks awake on ventilator via trach, nods yes/no to questions (Fransisca Canela ) Throat Throat Exam: Oral Mucosa [place] & Moist (Fransisca Canela) Neck Neck Remarks trach (Fransisca Canela) Pulmonary Resp Exam: Breath Sounds Equal, No Distress, Crackles, Sputum, Diminished Breath Sounds Resp Remarks vented, increased secretions (Fransisca Canela) Cardiology CV Exam: Regular, Normal Sinus Rhythm (Fransisca Canela) Gastrointestinal/Abdomen GI Exam: Distended GI Remarks distended, not as firm; colostomy with pink/red stoma stool in colostomy bag (Fransisca Canela) Musculoskeletal MS Exam: Joints Intact, Atrophy, Unable to Ambulate (Fransisca Canela) Integumentary Skin Exam: Warm, Dry Skin Remarks below umbilicus, midabdominal wound has dehisced; wound vac left side of incision (Fransisca Canela) Extremeties Extremities Exam: No Edema, Pedal Pulses Palpable (Fransisca Canela) Neurologic Neuro Exam: Alert, Awake, Moving All Extremities (Fransisca Canela) VTE Prophylaxis Device: SCDs (Fransisca Canela) Assessment/Plan Discussed Condition With: Patient Assessment Summary: VIRIDIANA/Acute Renal Failure, Acute Tubular Necrosis, Hypertension Problem List: (1) Acute renal failure Plan: He has developed ATN due to sepsis. Dialysis initiated 3/3 MWF dialysis; he did have treatment Sunday as prior treatments had poor access /flow New tunneled HD catheter placed with IR Sunday. functioning well seen during dialysis today on a 3K, 400 BFR, goal 1L he has began to make some urine, continue to monitor await renal recovery Avoid nephrotoxic agents. off IVF (2) Sepsis Plan: ID following. Now on Aztreonam, Fluconazole, Flagyl, Tobramycin nebulizer. blood culture negative he is on droplet for pseudomonas in sputum on Heparin for R IJ DVT started 09/29 (Fransisca Canela) Plan patient was seen and examined. We will continue dialysis MWF. Urine output may be improving. Avoid nephrotoxic agents. (Tito Kuo MD) Problem Qualifiers (1) Acute renal failure: Qualified Code: N17.0 - Acute renal failure with tubular necrosis Fransisca Canela Oct 02, 2016 10:28 Tito Kuo MD Oct 02, 2016 11:11
[2016-10-02 10:32] LABS: APTT (PATIENT) 52.2 SEC (24.3-30.1)
--- NOTE | 2016-10-02 12:18 | HHI.IDPN ---
Subjective Subjective Remarks ID COVERAGE Patient is a 56-year-old male, admitted to the hospital initially for surgery. He has chronic diverticulitis with extension to the small bowel. He underwent surgery August 19 and had laparoscopic, robotic extensive lysis of adhesions, low anterior resection, and small bowel resection. On August 24 he developed anastomotic leak, and underwent repeat surgery and had exploratory laparotomy, irrigation and diverging loop sigmoid colostomy. On September 02 he developed wound dehiscence in the lower midline incision, and it was felt that it had fascial dehiscence. Wound VAC was started at that time. More recently he was found to have a retroperitoneal abscess, and a percutaneous drain was placed on September 01. Patient has been treated for gram-negative pneumonia. The retroperitoneal abscess culture has grown Pseudomonas, enterococcus, and Iram glabrata. Patient has required ventilatory support. Patient also has developed renal failure, and has been undergoing hemodialysis. His WBC remains elevated. Notes reviewed Temps ok Tolerating weaning WBC down to normal Getting HD BP good Colostomy working Has wound vac in lower midline incision Has trach 09/20 Fluid with C albicans and C parapsilosis 09/20 SERGEI right PSAE 09/17 Sputum PSAE 09/17 2 BC negative Antibiotics azactam flagyl fluconazole Lines HD cath site ok. Past Medical History 1. Diverticulitis. 2. COPD. 3. Hypertension. 4. Anxiety disorder. 5. BPH. 6. History of tonsillectomy. Allergies: Coded Allergies: *MDRO Multi-Drug Resistant Organism (Verified Adverse Reaction, Unknown, ) MDR-Pseudomonas (sputum)-09/17/16 Objective . Vital Signs Date Time Temp Pulse Resp B/P Pulse Ox O2 Delivery O2 Flow Rate FiO2 10/02/16 10:00 100 10/02/16 08:56 100 35 10/02/16 08:00 107 10/02/16 08:00 98.3 107 29 120/58 100 10/02/16 08:00 35 10/02/16 06:00 110 10/02/16 04:00 99.4 110 31 141/71 100 10/02/16 04:00 35 10/02/16 04:00 108 10/02/16 03:46 100 35 10/02/16 02:00 105 10/02/16 00:00 106 10/02/16 00:00 35 10/02/16 00:00 99.7 106 28 136/72 100 10/01/16 23:44 100 35 10/01/16 22:00 107 10/01/16 20:00 118 10/01/16 20:00 35 10/01/16 20:00 98.6 118 20 142/72 100 10/01/16 19:44 100 35 10/01/16 16:00 115 10/01/16 16:00 99.1 115 20 136/71 100 10/01/16 15:27 35 10/01/16 15:27 100 35 10/01/16 10/01/16 10/02/16 15:00 23:00 07:00 Intake Total 1541 ml 100 ml 100 ml Output Total 275 ml 575 ml 200 ml Balance 1266 ml -475 ml -100 ml Intake Oral 240 ml IV Total 650 ml 100 ml 100 ml Tube Feeding 401 ml Packed Cells 250 ml Output Urine Total 250 ml Stool Total 275 ml 325 ml 200 ml Gastric Drainage Total 0 ml Tube Feeding Residual Discard 0 ml # Voids 0 1 . Laboratory Tests Test 10/01/16 10/02/16 03:02 03:30 White Blood Count 11.4 TH/MM3 10.9 TH/MM3 Red Blood Count 2.35 MIL/MM3 2.61 MIL/MM3 Hemoglobin 7.0 GM/DL 7.8 GM/DL Hematocrit 20.5 % 22.8 % Mean Corpuscular Volume 87.2 FL 87.3 FL Mean Corpuscular Hemoglobin 29.6 PG 29.8 PG Mean Corpuscular Hemoglobin 34.0 % 34.2 % Concent Red Cell Distribution Width 17.6 % 17.2 % Platelet Count 291 TH/MM3 289 TH/MM3 Mean Platelet Volume 8.2 FL 7.8 FL Neutrophils (%) (Auto) 70.2 % 73.3 % Lymphocytes (%) (Auto) 16.1 % 14.1 % Monocytes (%) (Auto) 10.0 % 8.6 % Eosinophils (%) (Auto) 2.2 % 2.7 % Basophils (%) (Auto) 1.5 % 1.3 % Neutrophils # (Auto) 8.0 TH/MM3 8.0 TH/MM3 Lymphocytes # (Auto) 1.8 TH/MM3 1.5 TH/MM3 Monocytes # (Auto) 1.1 TH/MM3 0.9 TH/MM3 Eosinophils # (Auto) 0.3 TH/MM3 0.3 TH/MM3 Basophils # (Auto) 0.2 TH/MM3 0.1 TH/MM3 CBC Comment AUTO DIFF AUTO DIFF Differential Total Cells 100 100 Counted Neutrophils % (Manual) 58 % 72 % Band Neutrophils % 9 % 7 % Lymphocytes % 13 % 11 % Monocytes % 12 % 5 % Eosinophils % 4 % Basophils % 2 % 1 % Neutrophils # (Manual) 7.9 TH/MM3 9.0 TH/MM3 Metamyelocytes 1 % 3 % Myelocytes 1 % 1 % Differential Comment FINAL DIFF FINAL DIFF MANUAL MANUAL Toxic Granulation 1+ Toxic Vacuolation PRESENT Platelet Estimate NORMAL NORMAL Platelet Morphology Comment NORMAL NORMAL Keratocytes OCC Hematology Comments Laboratory Tests Test 10/01/16 10/02/16 03:02 03:30 Sodium Level 138 MEQ/L 136 MEQ/L Potassium Level 3.2 MEQ/L 4.0 MEQ/L Chloride Level 99 MEQ/L 98 MEQ/L Carbon Dioxide Level 28.0 MEQ/L 26.8 MEQ/L Anion Gap 11 MEQ/L 11 MEQ/L Blood Urea Nitrogen 36 MG/DL 46 MG/DL Creatinine 3.36 MG/DL 4.09 MG/DL Estimat Glomerular Filtration 19 ML/MIN 15 ML/MIN Rate Random Glucose 109 MG/DL 112 MG/DL Calcium Level 8.8 MG/DL 8.8 MG/DL Imaging Last Impressions Chest X-Ray 09/25/16 1247 Signed Impressions: Service Date/Time: Sunday, September 25, 2016 13:03 - CONCLUSION: Satisfactory dialysis catheter placement. No pneumothorax. Claude Rosario MD Abdomen/Pelvis CT 09/23/16 0000 Signed Impressions: Service Date/Time: Friday, September 23, 2016 15:22 - CONCLUSION: 1. Reduction in size of the hypodense fluid collection in the hepatogastric space with no residual hypodensity seen.. Stable position to be indwelling drainage catheter. 2. Decreasing size lower lung infiltrates. 3. Interval removal of right lower quadrant drain and interval development of a small to moderate size amount of fluid in the cul-de-sac. Evelio Boyd MD Upper Extremity Ultrasound 09/17/16 0000 Signed Impressions: Service Date/Time: Saturday, September 17, 2016 16:48 - CONCLUSION: 1. Positive nonocclusive deep venous thrombosis right internal jugular vein. 2. Nonocclusive superficial thrombosis in the left cephalic vein. Miki Banerjee MD Lower Extremity Ultrasound 09/17/16 0000 Signed Impressions: Service Date/Time: Saturday, September 17, 2016 17:33 - CONCLUSION: Normal examination. Miki Banerjee MD Head CT 09/17/16 0000 Signed Impressions: Service Date/Time: Saturday, September 17, 2016 20:47 - CONCLUSION: 1. No acute intracranial abnormalities. Miki Banerjee MD Chest CT 09/17/16 0000 Signed Impressions: Service Date/Time: Saturday, September 17, 2016 20:46 - CONCLUSION: 1. Multifocal airspace consolidation in the lungs, right greater than left most characteristic of bronchopneumonia. There is underlying mild to moderate emphysema. Small effusions. Miki Banerjee MD Abscess Drainage CT 09/13/16 0000 Signed Impressions: Service Date/Time: Tuesday, September 13, 2016 14:30 - CONCLUSION: Uncomplicated CT guided drainage. Carlo Cortes MD Retroperitoneal Abscess Drainage 09/01/16 0600 Signed Impressions: Service Date/Time: Thursday, September 01, 2016 13:05 - CONCLUSION: Uncomplicated CT guided drainage of a right lower quadrant fluid collection. Approximately 75 cc of fecal-like brown material was aspirated. The air and fluid collection may communicate with the inferior aspect of the midline wound on the anterior abdominal wall. Claude Carrasco MD Abdomen X-Ray 08/24/16 0000 Signed Impressions: Service Date/Time: August 07:44 - CONCLUSION: Gaseous distention of multiple bowel loops possible ileus. Jony Miller MD Enema w/Water Soluble 08/23/16 0000 Signed Impressions: Service Date/Time: Tuesday, August 23, 2016 10:12 - CONCLUSION: Anastomosis appears patent without extravasation. Aditya Rocha MD FACR CT Angiography 08/21/16 0000 Signed Impressions: Service Date/Time: Sunday, August 21, 2016 14:05 - CONCLUSION: 1. There is no evidence for central pulmonary emboli. 2. Minimal subcutaneous air as well as free intraperitoneal air. Aditya Rocha MD FACR Physical Exam GENERAL: Awakens easily, responsive, NAD SKIN: Warm, dry, no rash HEENT: [place] conjunctivae, no scleral icterus. Moist mucosa NECK: No adenopathy or swelling. Trach in place, site ok LUNGS: Coarse breath sounds bilaterally, decreased at the bases. HEART: Regular rate and rhythm. No audible murmurs, rubs or gallops. ABDOMEN: Soft, not tender. Colostomy on R working well, Midline incision, has vac in lower portion. EXTREMITIES: No clubbing or cyanosis. Edema - small amount. Well-perfused NEUROLOGIC: Awake, following commands, + eye contact LINE: No evidence of infection Assessment & Plan Remarks IMPRESSION Sepsis. Pseudomonas on CVL culture of removed line. Peritonitis. Post abdominal surgery/Bowel resection - enterococcus, pseudomonas and yeast. - had drains previously, now removed - repeat CT better, though has more fluid in cul-de-sac, ?significance Pneumonia. pseudomonas ( resistant strain). - prob colonized by now - on aerosol Tobra Leukocytosis secondary to infection. Resolved Acute renal failure, on HD Acute respiratory failure. Remains vent. dependent. - S/P trach Thrombosis R. internal Jugular vein. Fevers. Probably because of resistant organism. ? line vs intra abdominal infection vs PNA. - temps better RECOMMENDATIONS Continue fluconazole Continue Aztreonam since patient clinically better Continue Tobramycin nebulized. Continue Flagyl. Monitor temps. Monitor progress Weaning per CCM Dr Apodaca back tomorrow to resume care from ID standpoint Wendy Young MD Oct 02, 2016 12:17
[2016-10-02] MEDS: HEPARIN SODIUM - IV 10,000 UNITS/10 ML VIAL PRN (12:44)
[2016-10-02] MEDS: GENTAMICIN SULFATE (DIALYSIS USE ONLY) 20 MG/2 ML VIAL IV PRN (12:44)
[2016-10-02] MEDS: LEVOFLOXACIN 250 MG PREMIX INJ 50 ML IV SCH (12:56)
[2016-10-02] MEDS: HEPARIN-D5W INJ 250 ML IV SCH (12:58)
--- NOTE | 2016-10-02 15:17 | HHI.PR ---
Subjective Remarks POD#44 s/p robotic LAR/SBR/ANNA MARIE, POD#37 s/p ex lap, washout, diverting loop ileostomy awake, alert, tolerating liquids Objective Vital Signs Date Time Temp Pulse Resp B/P Pulse Ox O2 Delivery O2 Flow Rate FiO2 10/02/16 14:51 100 35 10/02/16 14:50 35 10/02/16 14:00 119 10/02/16 12:16 100 35 10/02/16 12:00 35 10/02/16 12:00 113 10/02/16 12:00 98.4 113 22 149/71 100 10/02/16 10:00 100 10/02/16 08:56 100 35 10/02/16 08:00 107 10/02/16 08:00 98.3 107 29 120/58 100 10/02/16 08:00 35 10/02/16 06:00 110 10/02/16 04:00 99.4 110 31 141/71 100 10/02/16 04:00 35 10/02/16 04:00 108 10/02/16 03:46 100 35 10/02/16 02:00 105 10/02/16 00:00 106 10/02/16 00:00 35 10/02/16 00:00 99.7 106 28 136/72 100 10/01/16 23:44 100 35 10/01/16 22:00 107 10/01/16 20:00 118 10/01/16 20:00 35 10/01/16 20:00 98.6 118 20 142/72 100 10/01/16 19:44 100 35 10/01/16 16:00 115 10/01/16 16:00 99.1 115 20 136/71 100 10/01/16 15:27 35 10/01/16 15:27 100 35 I/O 10/01/16 10/01/16 10/01/16 10/02/16 10/02/16 10/02/16 07:00 15:00 23:00 07:00 15:00 23:00 Intake Total 984 ml 1541 ml 100 ml 100 ml 788 ml Output Total 300 ml 275 ml 575 ml 200 ml 250 ml 1000 ml Balance 684 ml 1266 ml -475 ml -100 ml 538 ml -1000 ml Intake Oral 240 ml 250 ml IV Total 488 ml 650 ml 100 ml 100 ml 538 ml Tube Feeding 496 ml 401 ml Packed Cells 250 ml Output Urine Total 250 ml Stool Total 300 ml 275 ml 325 ml 200 ml 250 ml Gastric Drainage Total 0 ml Tube Feeding Residual Discard 0 ml 0 ml Hemodialysis 1000 ml # Voids 1 0 1 Result Diagram: 10/02/1632910/02/16329 Objective Remarks Abdomen soft Wounds clean Stoma pink, functional Assessment and Plan Assessment and Plan CV - BP stable RESP - tolerated T piece yesterday KIDNEY - some urine but still anuric,continue HD FEN - NGT out ID - afebrile, WBC's down to normal!! Elana Moffett MD Oct 02, 2016 15:17
--- NOTE | 2016-10-02 15:30 | HHI.CCPN ---
Subjective Remarks/Hospital Course 08/25: Patient is a 58-year-old male with past medical history significant COPD who, on 08/18/16, underwent Laparoscopic robotic extensive lysis of adhesions, low anterior resection and small bowel resection. Apparently he was brought in by Dr. Moffett for Diverticulitis. Patient has a history of hypertension, COPD, and continues to smoke one pack of cigarettes a day. Postoperatively patient became progressively short of breath. Pulmonary was consulted on 08/21/16 as the patient was becoming more hypoxemic requiring BiPAP. CT of the chest PE protocol did not show any pulmonary embolism. Patient was placed on breathing treatments and IV Solu-Medrol 40 mg every [address] Renteria. Today a.m. patient was on 100% nonrebreather. Patient was diagnosed with an anastomotic leak today and was taken back to the OR by Dr. Moffett. He underwent exploratory laparotomy, I&D and loop ileostomy today. Postop patient remained hypoxemic requiring 70% oxygen, and hence was left intubated and critical care medicine was consulted. Dr. Arce evaluated the patient in ICU. He remained hypoxemic, FiO2 70%. Chest x-ray shows bibasilar mild infiltrates. On sedation lightening patient became very hypertensive, not following commands probably secondary to residual NM blockade received while being transported to ICU. Patient on receiving vancomycin Levaquin and Flagyl per Dr. Moffett. Dr. Arce added cefepime to cover for Pseudomonas. Holding Solu-Medrol due to anastomotic leak. 08/26: Remains sedated, orally intubated on mechanical ventilation. Went into anuric renal failure yesterday which did not respond to fluid boluses and diuretics hence was started on hemodialysis after placement of right IJ Vas- Cath. Currently sedated, arousable, remains orally intubated on mechanical ventilation. Blood pressure borderline last evening following dialysis for which she was started on low-dose vasopressin 0.03 units per minute and Levophed which is currently at 1 jose per minute. Started on TPN last night following which he has been hyperglycemic. 08/27: Sedated, arousable, orally intubated on mechanical ventilation. Spiking fevers overnight. Off Levophed, transiently off vasopressin. Remains on TPN. 08/28: Remains sedated, arousable, orally intubated on mechanical ventilation. On low-dose vasopressin. TPN continues. Made about 500 cc of urine in the last 24 hours. 08/29: In sedated, arousable, orally intubated on mechanical ventilation. Remains on TPN. Dirty drainage from left-sided SERGEI drain noted overnight. Dr. Moffett obtaining CT abdomen pelvis with oral contrast and ID consulted. 08/30: CURRENT TEMPERATURE 99. Status post 4 L hemodialysis today. No current change in therapy. White blood cell count remained stable. Off vasopressors. Arousable to voice. Versed has been discontinued. We'll attempt CPAP trials again today. 08/31: MAXIMUM TEMPERATURE 100.4. Currently 100.1. Currently resting in bed in no acute distress. Continues with scant drainage from bilateral JPs. We'll attempt CPAP trial again today. Positive stool from ostomy bag 09/01: Tmax 99.8. Currently 99.3. Placement of the new right IJ vas catheter today. Plan for IR to possibly drain right lower quadrant fluid collection. Arousable and moves all 4 extremity spontaneously. 09/02: Currently afebrile. Noted placement of iron drain with accordion drain. Growing Pseudomonas. Lasted only 2 hours on CPAP trials today. 09/03: Tolerated SBT for only 30 mins and required PS 20. Not ready to extubate. 09/04: Tachypnea related to anxiety? or metabolic acidosis. Will check VBG. Not tolerating SBT. Anemia. Transfuse during HD. 09/05: Remains very tachypneic on SBTs. Unable to extubate. 09/06: Leukocytosis and bandemia. Acts like ongoing sepsis. 09/07: No significant changes. Afebrile. Tolerating TFs as recommended by CRS. Will transition from TPN to enteral feeds now. 09/08: Bandemia persists. Tolerating full TFs. D/c'd TPN. Glucose control acceptable. 09/09: Tolerating longer CPAP/PS trials. 09/10: Stronger respiratory effort. Try to extubate today. 09/11: Stable hemodynamics, marginal respiratory function. 09/11 update 1800 hrs: Patient developed sudden hyperventilation to 55-60/min, hypertensive urgency to 220/120s, unresponsive state, started versed 10 mg/hr after 10 mg iv. Load with cerebyx, get head CT, EEG in a.m. 09/12: BP and pulse rate control improved with sedation. Etiology unclear. Suspected intracranial process but CT head normal. Possibly seizures. EEG pending this morning. WBC with bandemia persists. 09/13: CURRENT TEMPERATURE 99. Heart rate and blood pressure control. Noted T changes last night noted a potassium 8.2. Noted hemodialysis catheter placed by overnight special service representative in right femoral vein and hemodialysis currently undergoing. Plan for drainage of epigastric fluid collection by IR today. 09/14: Currently afebrile. Status post prior drainage of epigastric fluid area. Currently 60 ccwhite pus accordian drain. Status post bronchoscopy yesterday. 09/15 - intubation day #22. Family waiting another 24 hours to consider tracheostomy. He is not able to be extubated. Currently undergoing hemodialysis. Likely dialysis dependent. 09/16: Tmax 100.2. Blood pressure slowly trending downward. He transfuse PRBCs and albumin bolus prior to hemodialysis today. Intubation day #23. Family currently agreeable to tracheostomy but I'm unable to perform until Sunday. Positive BM. 09/17: Tmax 101. Intubation day #24. Tolerating tube feeding. Currently on Versed and fentanyl drips. 09/18: Remains sedated, orally intubated on mechanical ventilation. Scheduled for percutaneous tracheostomy today. Was dialyzed yesterday. Percutaneous drains [address] Ileostomy with good output. Wound VAC in place over anterior abdominal incision site. 09/19: Remains sedated, on mechanical ventilation via tracheostomy. Patient was noted to have some blood oozing from around tracheostomy site this morning as well as around Vas-Cath. Pressure dressing to be applied around Vas-Cath and packing around tracheostomy site and Dr. Howard informed. 09/20: Remains on fentanyl. On mechanical ventilation via tracheostomy. Continues to have fevers. No further bleeding from tracheostomy site or Vas- Cath site. 09/21: Remains on mechanical ventilation via tracheostomy. Resuming subcutaneous heparin today. No further bleeding from Vas-Cath or tracheostomy site. 09/22: Remains on mechanical ventilation, daily C Pap trials. Awake and alert this morning, following commands. 09/23: Tmax 100.2. Currently afebrile. Some oozing from hemodialysis catheter/ left IJ today. Plan for -2 L. Currently on mechanical ventilation while on hemodialysis. Awake and alert and following commands. 09/24: MAXIMUM TEMPERATURE 100.4. Currently afebrile. Noted hyperkalemia this am. Protocol initiated. Will recheck potassium in 3 hours. Awake and alert and following commands. 09/25: Tmax 101.1. Positive BM overnight likely secondary to Kayexalate provided for hyperkalemia. Received hemodialysis and likely will need to receive again today due to hypercatabolic state. Arousable on the ventilator and follows commands. 09/26: Awake and alert, following commands. Remains on mechanical ventilation via tracheostomy. Wound VAC in place over anterior abdominal wall incision site. Ileostomy functional. Tolerating tube feeds. 09/27: Remains awake and alert, following commands. On mechanical ventilation via tracheostomy. Daily C Pap trials. Tolerating tube feeds. Ileostomy functional. Patient will require PEG tube when okay with colorectal surgery. Wound VAC remains in place over the lower part of surgical incision site over anterior abdominal wall. Subjective 09/28: Awake and alert. On mechanical ventilation via tracheostomy. Started on heparin drip today for full anticoagulation for right IJ DVT. Discussed with Dr. Elana Moffett who is okay with proceeding with PEG tube placement however she is going to discuss this with the patient's family. ID has cleared patient for permacath placement. Needs LTAC placement for vent weaning. 09/29: Slightly tachypneic on CPAP, but appears comfortable. Get swallow eval. set up to chair today. Attempt TP. ID cleared for permacath 09/30: Right IJ PermaCath placed 09/29. Tolerating CPAP trail. 10/01: Stable hemodynamics, strong on CPAP/T-piece. 10/02: No acute events overnight. Tolerates TP, about 4 hours yesterday per RT. Dr. Moffett requests discontinuing NGT and supplementing with ensure. Objective Vital Signs Date Time Temp Pulse Resp B/P Pulse Ox O2 Delivery O2 Flow Rate FiO2 10/02/16 14:51 100 35 10/02/16 14:00 119 10/02/16 12:00 98.4 22 149/71 10/01/16 09:08 T-piece 09/30/16 11:58 6.00 Intake and Output 10/01/16 10/01/16 10/02/16 08:00 16:00 00:00 Intake Total 984 ml 1541 ml 100 ml Output Total 300.0 ml 275 ml 575 ml Balance 684.0 ml 1266 ml -475 ml Result Diagram: 10/02/1632910/02/16 0330 Imaging Last Impressions Chest X-Ray 09/24/16 0600 Signed Impressions: Service Date/Time: Saturday, September 24, 2016 03:23 - CONCLUSION: Stable chest x-ray with underinflation and atelectasis at the bases and stable mild airspace opacity at the right base. Claude Carrasco MD Abdomen/Pelvis CT 09/23/16 0000 Signed Impressions: Service Date/Time: Friday, September 23, 2016 15:22 - CONCLUSION: 1. Reduction in size of the hypodense fluid collection in the hepatogastric space with no residual hypodensity seen.. Stable position to be indwelling drainage catheter. 2. Decreasing size lower lung infiltrates. 3. Interval removal of right lower quadrant drain and interval development of a small to moderate size amount of fluid in the cul-de-sac. Evelio Boyd MD Upper Extremity Ultrasound 09/17/16 0000 Signed Impressions: Service Date/Time: Saturday, September 17, 2016 16:48 - CONCLUSION: 1. Positive nonocclusive deep venous thrombosis right internal jugular vein. 2. Nonocclusive superficial thrombosis in the left cephalic vein. Miki Banerjee MD Lower Extremity Ultrasound 09/17/16 0000 Signed Impressions: Service Date/Time: Saturday, September 17, 2016 17:33 - CONCLUSION: Normal examination. Miki Banerjee MD Head CT 09/17/16 0000 Signed Impressions: Service Date/Time: Saturday, September 17, 2016 20:47 - CONCLUSION: 1. No acute intracranial abnormalities. Miki Banerjee MD Chest CT 09/17/16 0000 Signed Impressions: Service Date/Time: Saturday, September 17, 2016 20:46 - CONCLUSION: 1. Multifocal airspace consolidation in the lungs, right greater than left most characteristic of bronchopneumonia. There is underlying mild to moderate emphysema. Small effusions. Miki Banerjee MD Abscess Drainage CT 09/13/16 0000 Signed Impressions: Service Date/Time: Tuesday, September 13, 2016 14:30 - CONCLUSION: Uncomplicated CT guided drainage. Carlo Cortes MD Retroperitoneal Abscess Drainage 09/01/16 0600 Signed Impressions: Service Date/Time: Thursday, September 01, 2016 13:05 - CONCLUSION: Uncomplicated CT guided drainage of a right lower quadrant fluid collection. Approximately 75 cc of fecal-like brown material was aspirated. The air and fluid collection may communicate with the inferior aspect of the midline wound on the anterior abdominal wall. Claude Carrasco MD Abdomen X-Ray 08/24/16 0000 Signed Impressions: Service Date/Time: August 07:44 - CONCLUSION: Gaseous distention of multiple bowel loops possible ileus. Jony Miller MD Enema w/Water Soluble 08/23/16 0000 Signed Impressions: Service Date/Time: Tuesday, August 23, 2016 10:12 - CONCLUSION: Anastomosis appears patent without extravasation. Aditya Rocha MD FACR CT Angiography 08/21/16 0000 Signed Impressions: Service Date/Time: Sunday, August 21, 2016 14:05 - CONCLUSION: 1. There is no evidence for central pulmonary emboli. 2. Minimal subcutaneous air as well as free intraperitoneal air. Aditya Rocha MD FACR Objective Remarks GENERAL: 56-year-old male. Breathing comfortably SKIN: Warm. Dry. No rash HEAD: Atraumatic. Normocephalic. NECK: Tracheostomy in place. Site clean, dry. CARDIOVASCULAR: S1-S2 regular no gallop or murmur. No JVD. RESPIRATORY: Scattered rhonchi appreciated in all lung nesbitt, no wheezing. Good jorge air movement GASTROINTESTINAL: Abdomen non distended. Midline incision clean and intact. BS active. Ostomy viable. MUSCULOSKELETAL: Extremities with trace bilateral upper and lower extremity edema, well perfused, warm. NEUROLOGICAL: Awake and alert and interactive. Moves all 4 extremities spontaneously. Nods head to questions. No focal deficits Date of Insertion: Aug 31, 2016 Date of Removal: Sep 12, 2016 Side: Right A/P Assessment and Plan NEURO/PSYCH: History of anxiety Acute toxic metabolic encephalopathyresolving -Acetaminophen for fever -Haldol 1 mg every 4 hours when necessary -Ativan 0.5 mg every one hour when necessary agitation -Morphine sulfate 3 milligrams IV every 3 hours when necessary pain -Off sedative drips, follow neuro status. -Head CT 09/11 no acute intracranial findings -EEG 09/12 revealed mild to moderate encephalopathy. No epileptiform activity. -Currently on Cerebyx 300 mg liquid at night. Level 5.7 on 09/18, 3.5 on 09/26 RESP: Acute hypoxemic respiratory failure COPD exacerbation Probable healthcare associated pneumonia -Continue PRVC 22/600 0.75/5/40. Tolerating CPAP. 4 hour TP yesterday, increase to 8 hours today -Ventilator bundle -Albuterol nebs every 4 hours scheduled and when necessary duo nebs, Symbicort 2 puffs every 12 was discontinued while in ventilator. -Continue Pulmicort 0.5/2 twice a day -Broad-spectrum antibiotics as below -Continue daily C Pap trials. -Dr. Renteria/Pulmonary following -s/p tracheostomy 09/18 CV: Hypotension secondary to septic shock resolved History of hypertension Anuria necessitating hemodialysis. Off all vasopressors Currently on clonidine 0.1 3 times a day, Norvasc 10 mg daily and Coreg 3.125 twice a day. Labetalol prn GI/ Nutrition: Anastomotic leak status post exploratory laparotomy, I&D, loop ileostomy 08/24/16 s/p Laparoscopic robotic extensive ANNA MARIE, robotic LAR and small bowel resection Laparoscopic robotic ANNA MARIE, robotic LAR and small bowel resection with anastomotic leak History of diverticulitis -Status post exploratory laparotomy, I&D, loop ileostomy 08/24/16 -Postoperative management per Dr. Moffett. Broad-spectrum antibiotics as below. positive ostomy output -On Reglan to improve GI motility -Tolerating PO diet, DC NGT per Dr. Moffett, Ensure QID with meals -Protonix for GI prophylaxis -All drains have been removed. Wound VAC discontinued. -CT abdomen/pelvis 09/23 revealed decreased fluid in the hepatogastric region. Removal of interval drains. Small to moderate fluid in the cul-de-sac. Renal/: Acute kidney injury History BPH Status post bilateral ureteral stents placed by Dr. Fraser 08/18 -Monitor renal function closely. Mg catheter. -IV fluids discontinued in view of anuric renal failure and hyperkalemia necessitating hemodialysis. Nephrology following for HD ID has cleared patient for permacath placement on 09/28. New right IJ hemodialysis catheter placed 09/01 -> D/C 09/13. New right femoral hemodialysis catheter placed 09/13 -> D/C 09/19 New LIJ vascath placed 09/18 -> D/C 09/25 New Left Subclavian vascath placed 09/26 -> d'/c New Right IJ Permacath 09/29 ID: Anastomotic leak Sepsis Probable HCAP Current regimen is Flagyl 500 mg IV every 6 hours, Diflucan 200 mg IV 24 hours and aztreonam 500 mg IV every 12 hours. Also tobramycin aerosols twice a day. Pertinent culture 09/20 - wound - Pseudomonas and Iram Alb and Paropsilosis 09/17 - sputum - Pseudomonas 09/17 - blood cultures 2- no growth 09/13 - bronchial -Pseudomonas 09.13 - abdomen abscess -Pseudomonas/yeast 09/01: Abdominal wound - Pseudomonas, enterococcus, Iram 08/31 - line culture Pseudomonas/coag negative staph 08/31 - blood cultures 2 -no growth 08/31 - sputum - pending 08/29 - wound - Pseudomonas, group D enterococcus, C. albicans and yeast 08/25 blood cultures - no growth 08/25 sputum - Serratia/Klebsiella/Pseudomonas 08/24 - wound - no growth HEME: Leukocytosis Normocytic anemia Thrombocytosis RIJ DVT (nonocclusive) Left cephalic superficial thrombus -Monitor CBC, CMP, coags -Full anticoagulation resumed for right IJ DVT on 09/28. Start Coumadin today at 3mg and pharmacy to dose ENDO: -Sliding-scale insulin with Accu-Cheks every 6 hours for glycemic control. Levemir 20 units twice a day currently on hold FEN: Hyperphosphatemia Hyperkalemia Continue PhosLo 1334 mg 3 times a day for hyperphosphatemia. Hemodialysis per renal. Received D50/insulin/bicarbonate/Kayexalate on 09/25 for hyperkalemia. PROPH: -Bilateral lower extremity SCDs. Heparin gtt for RIJ DVT resumed 09/28/16 (held for scheduled trach), start Coumadin today 10/02/16. Protonix for GI prophylaxis LINES: -Left subclavian central line placed in the OR 08/24 - 08/31. Right subclavian central line placed 08/31 - 09/11 - RIJ dialysis catheter 08/25 -08/31. New right IJ hemodialysis catheter 09/01 - - Right femoral hemodialysis catheter 09/13 - 09/19 New LIJ vascath placed 09/18 -> D/C 09/25 New Left Subclavian vascath placed 09/26 Dr. Quarles called Natalia (pt's family) on 09/26 and and got her voice mail. Left message to call back. Patient will need LTAC placement-case management consulted. Discussed with Dr. Elana Moffett on 09/28, she is okay with proceeding with PEG tube placement however she will be talking to patient's family regarding that-will also get swallow eval to see whether patient and take by mouth diet . Dr. Moffett also is okay with transferring to LTAC following PEG tube placement. No significant changes overnight. Transfuse one unit PRBC. Jeferson Arce MD Oct 02, 2016 15:30 Jeferson Arce MD Oct 02, 2016 15:30
[2016-10-02 16:19] LABS: APTT (PATIENT) 47.5 SEC (24.3-30.1)
[2016-10-02 16:33] LABS: INTERNATIONAL NORMALIZED RATIO 1.1 RATIO; PROTHROMBIN TIME - PATIENT 11.8 SEC (9.8-11.6)
[2016-10-02] MEDS: WARFARIN SOD 3 MG TAB PO SCH (17:41)
--- NOTE | 2016-10-02 19:49 | HHI.PR ---
Subjective Remarks YOAA male with robotic surgery,COPD exac Underwent exp lap,I&d and loop iliostomy placement no fever on Heparin For rt IJ DVT Tolerated T piece for 4 hrs tolerated PO NGT removed Objective Vital Signs Vital Signs Date Time Temp Pulse Resp B/P Pulse Ox O2 Delivery O2 Flow Rate FiO2 10/02/16 18:00 120 10/02/16 16:00 98.7 105 19 142/73 100 10/02/16 16:00 105 10/02/16 16:00 35 10/02/16 14:51 100 35 10/02/16 14:50 35 10/02/16 14:00 119 10/02/16 12:16 100 35 10/02/16 12:00 35 10/02/16 12:00 113 10/02/16 12:00 98.4 113 22 149/71 100 10/02/16 10:00 100 10/02/16 08:56 100 35 10/02/16 08:00 107 10/02/16 08:00 98.3 107 29 120/58 100 10/02/16 08:00 35 10/02/16 06:00 110 10/02/16 04:00 99.4 110 31 141/71 100 10/02/16 04:00 35 10/02/16 04:00 108 10/02/16 03:46 100 35 10/02/16 02:00 105 10/02/16 00:00 106 10/02/16 00:00 35 10/02/16 00:00 99.7 106 28 136/72 100 10/01/16 23:44 100 35 10/01/16 22:00 107 10/01/16 20:00 118 10/01/16 20:00 35 10/01/16 20:00 98.6 118 20 142/72 100 I/O 10/01/16 10/01/16 10/01/16 10/02/16 10/02/16 10/02/16 07:00 15:00 23:00 07:00 15:00 23:00 Intake Total 984 ml 1541 ml 100 ml 100 ml 788 ml Output Total 300 ml 275 ml 575 ml 200 ml 250 ml 1000 ml Balance 684 ml 1266 ml -475 ml -100 ml 538 ml -1000 ml Intake Oral 240 ml 250 ml IV Total 488 ml 650 ml 100 ml 100 ml 538 ml Tube Feeding 496 ml 401 ml Packed Cells 250 ml Output Urine Total 250 ml Stool Total 300 ml 275 ml 325 ml 200 ml 250 ml Gastric Drainage Total 0 ml Tube Feeding Residual Discard 0 ml 0 ml Hemodialysis 1000 ml # Voids 1 0 1 Result Diagram: 10/02/1632910/02/16329 Objective Remarks GENERAL: WBWN obese male, on Vent , sedated SKIN: Warm and dry. HEAD: Normocephalic. EYES: No scleral icterus. No injection or drainage. NECK: Supple, trachea midline. No JVD or lymphadenopathy. CARDIOVASCULAR: Regular rate and rhythm without murmurs, gallops, or rubs. RESPIRATORY: Breath sounds equal bilaterally. No accessory muscle use. exp rhonchi GASTROINTESTINAL: Abdomen soft, non-tender, Abd distended MUSCULOSKELETAL: No cyanosis, or edema. BACK: Nontender without obvious deformity. No CVA tenderness. A/P Assessment and Plan Resp Failure, on vent COPD exac S/p robotic surgery Anxiety S/p Exp lap PLAN: Cont vent support, aerosol nebs Nebuliser rx qid and prn Abx per ID Monitor lytes T -piece in AM Tolerates Robbie Barry MD Oct 02, 2016 19:49
[2016-10-02] MEDS: PHENYTOIN SUSP 100 MG/4 ML CUP PO SCH (20:00)
[2016-10-03] VITALS (18 sets, daily range): BP systolic 133–148; BP diastolic 68–89; PULSE 102–124; RESP 21–31; TEMP 98.6–100.9; O2SAT 97–100
[2016-10-03] MEDS: HEPARIN-D5W INJ 250 ML IV SCH (01:14)
[2016-10-03 02:15] LABS: BASOPHIL # 0.1 TH/MM3 (0-0.2); BASOPHIL % 1.1 % (0.0-2.0); EOSINOPHIL # 0.2 TH/MM3 (0-0.4); HEMATOCRIT 23.6 % (39.0-51.0); LYMPH % 13.7 % (9.0-44.0); LYMPHOCYTE # 1.7 TH/MM3 (1.0-4.8); MEAN CORPUSCULAR HGB CONC 32.9 % (32.0-36.0); MONO % 11.3 % (0.0-8.0); NEUT % 71.9 % (16.0-70.0); PLATELET COUNT 298 TH/MM3 (150-450); RED BLOOD COUNT 2.68 MIL/MM3 (4.50-5.90); RED CELL DISTRIBUTION WIDTH 17.5 % (11.6-17.2); WHITE BLOOD COUNT 12.5 TH/MM3 (4.0-11.0)
[2016-10-03 02:16] LABS: HEMO FLAGS AUTO DIFF
[2016-10-03 02:26] LABS: APTT (PATIENT) 47.8 SEC (24.3-30.1); INTERNATIONAL NORMALIZED RATIO 1.1 RATIO; PROTHROMBIN TIME - PATIENT 12.2 SEC (9.8-11.6)
[2016-10-03 02:54] LABS: BANDS 4 % (0-6); METAMYELOCYTES 2 % (0-1); MYELOCYTES 5 % (0-0); NEUTROPHIL # MANUAL DIFF 9.9 TH/MM3 (1.8-7.7); POLYS (SEG NEUTROPHILS) 68 % (16-70); SCAN/DIFF FINAL DIFF MANUAL; WBC DIFF SAMPLE 100
[2016-10-03 02:58] LABS: PLATELET ESTIMATE SMEAR NORMAL (NORMAL); PLATELET MORPHOLOGY NORMAL (NORMAL)
[2016-10-03] MEDS: MORPHINE SULFATE 4 MG/ML INJ IV PRN ×4 (03:10→20:17)
[2016-10-03] MEDS: SODIUM CHLORIDE 0.9% FLUSH 10 ML FLUSH IVF PRN (03:11)
[2016-10-03] MEDS: RESP: ALBUTEROL 2.5 MG/3 ML NEB (SCH) INH ×4 (04:13→21:21)
[2016-10-03 04:40] LABS: ALKALINE PHOSPHATASE 212 U/L (45-117); ALT (GPT) 16 U/L (12-78); ANION GAP 9 MEQ/L (5-15); AST (GOT) 26 U/L (15-37); BICARBONATE 30.3 MEQ/L (21.0-32.0); BLOOD UREA NITROGEN 24 MG/DL (7-18); CHLORIDE 98 MEQ/L (98-107); GLOMERULAR FILTRATION RATE 24 ML/MIN (>89); POTASSIUM 3.8 MEQ/L (3.5-5.1); SODIUM (NA) 137 MEQ/L (136-145); TOTAL BILIRUBIN ADULT 0.5 MG/DL (0.2-1.0)
[2016-10-03] MEDS: LORazepam 2 MG/ML VIAL IV PUSH PRN ×3 (06:05→22:14)
[2016-10-03] MEDS: metroNIDAZOLE 500 MG INJ 100 ML IV SCH ×2 (06:06→09:48)
[2016-10-03] MEDS: ARTIFICIAL TEARS OPTH SOLN 15 ML BTL EACH EYE SCH ×3 (06:06→22:00)
[2016-10-03] MEDS: cloNIDine HCL 0.1 MG TAB PO SCH ×3 (06:06→22:13)
--- NOTE | 2016-10-03 06:50 | RADRPT ---
EXAM DATE/TIME: 10/03/2016 05:15 [facility] COMPARISON: CHEST SINGLE AP, September 28, 2016, 13:28. INDICATIONS : Shortness of breath. MEDICAL HISTORY : Hypertension. Chronic obstructive pulmonary disease. Diabetes mellitus type II. Asthma. SURGICAL HISTORY : Tracheostomy. ENCOUNTER: Subsequent ACUITY: 3 weeks PAIN SCORE: Non-responsive. LOCATION: Bilateral chest FINDINGS: A single view of the chest demonstrates bibasilar densities. Tracheostomy tube unchanged. Right-sided vascular catheter with tip in the right atrium. No pneumothorax. Osseous structures are intact. CONCLUSION: Bibasilar densities. Jony Miller MD on October 03, 2016 at 6:48 Board Certified Radiologist. This report was verified electronically.
[2016-10-03] MEDS: INSULIN NovoLIN REGULAR SUPPLEMENTAL SCALE SQ SCH ×2 (07:06→21:00)
[2016-10-03] MEDS: CHLORHEXIDINE 0.12% (ORAL KIT) 15 ML CUP MT SCH ×2 (08:00→20:00)
[2016-10-03] MEDS: RESP: BUDESONIDE 0.5 MG/2 ML NEB NEB SCH ×2 (08:22→21:21)
[2016-10-03] MEDS: LACTOBACILLUS ACIDOPHILUS TAB NG SCH ×3 (09:00→18:09)
[2016-10-03] MEDS: SODIUM CHLORIDE 0.9% FLUSH 5 ML FLUSH IVF SCH ×2 (09:00→20:17)
--- NOTE | 2016-10-03 09:00 | HHI.CCPN ---
Subjective Remarks/Hospital Course 08/25: Patient is a 58-year-old male with past medical history significant COPD who, on 08/18/16, underwent Laparoscopic robotic extensive lysis of adhesions, low anterior resection and small bowel resection. Apparently he was brought in by Dr. Moffett for Diverticulitis. Patient has a history of hypertension, COPD, and continues to smoke one pack of cigarettes a day. Postoperatively patient became progressively short of breath. Pulmonary was consulted on 08/21/16 as the patient was becoming more hypoxemic requiring BiPAP. CT of the chest PE protocol did not show any pulmonary embolism. Patient was placed on breathing treatments and IV Solu-Medrol 40 mg every [address] Renteria. Today a.m. patient was on 100% nonrebreather. Patient was diagnosed with an anastomotic leak today and was taken back to the OR by Dr. Moffett. He underwent exploratory laparotomy, I&D and loop ileostomy today. Postop patient remained hypoxemic requiring 70% oxygen, and hence was left intubated and critical care medicine was consulted. Dr. Arce evaluated the patient in ICU. He remained hypoxemic, FiO2 70%. Chest x-ray shows bibasilar mild infiltrates. On sedation lightening patient became very hypertensive, not following commands probably secondary to residual NM blockade received while being transported to ICU. Patient on receiving vancomycin Levaquin and Flagyl per Dr. Moffett. Dr. Arce added cefepime to cover for Pseudomonas. Holding Solu-Medrol due to anastomotic leak. 08/26: Remains sedated, orally intubated on mechanical ventilation. Went into anuric renal failure yesterday which did not respond to fluid boluses and diuretics hence was started on hemodialysis after placement of right IJ Vas- Cath. Currently sedated, arousable, remains orally intubated on mechanical ventilation. Blood pressure borderline last evening following dialysis for which she was started on low-dose vasopressin 0.03 units per minute and Levophed which is currently at 1 jose per minute. Started on TPN last night following which he has been hyperglycemic. 08/27: Sedated, arousable, orally intubated on mechanical ventilation. Spiking fevers overnight. Off Levophed, transiently off vasopressin. Remains on TPN. 08/28: Remains sedated, arousable, orally intubated on mechanical ventilation. On low-dose vasopressin. TPN continues. Made about 500 cc of urine in the last 24 hours. 08/29: In sedated, arousable, orally intubated on mechanical ventilation. Remains on TPN. Dirty drainage from left-sided SERGEI drain noted overnight. Dr. Moffett obtaining CT abdomen pelvis with oral contrast and ID consulted. 08/30: CURRENT TEMPERATURE 99. Status post 4 L hemodialysis today. No current change in therapy. White blood cell count remained stable. Off vasopressors. Arousable to voice. Versed has been discontinued. We'll attempt CPAP trials again today. 08/31: MAXIMUM TEMPERATURE 100.4. Currently 100.1. Currently resting in bed in no acute distress. Continues with scant drainage from bilateral JPs. We'll attempt CPAP trial again today. Positive stool from ostomy bag 09/01: Tmax 99.8. Currently 99.3. Placement of the new right IJ vas catheter today. Plan for IR to possibly drain right lower quadrant fluid collection. Arousable and moves all 4 extremity spontaneously. 09/02: Currently afebrile. Noted placement of iron drain with accordion drain. Growing Pseudomonas. Lasted only 2 hours on CPAP trials today. 09/03: Tolerated SBT for only 30 mins and required PS 20. Not ready to extubate. 09/04: Tachypnea related to anxiety? or metabolic acidosis. Will check VBG. Not tolerating SBT. Anemia. Transfuse during HD. 09/05: Remains very tachypneic on SBTs. Unable to extubate. 09/06: Leukocytosis and bandemia. Acts like ongoing sepsis. 09/07: No significant changes. Afebrile. Tolerating TFs as recommended by CRS. Will transition from TPN to enteral feeds now. 09/08: Bandemia persists. Tolerating full TFs. D/c'd TPN. Glucose control acceptable. 09/09: Tolerating longer CPAP/PS trials. 09/10: Stronger respiratory effort. Try to extubate today. 09/11: Stable hemodynamics, marginal respiratory function. 09/11 update 1800 hrs: Patient developed sudden hyperventilation to 55-60/min, hypertensive urgency to 220/120s, unresponsive state, started versed 10 mg/hr after 10 mg iv. Load with cerebyx, get head CT, EEG in a.m. 09/12: BP and pulse rate control improved with sedation. Etiology unclear. Suspected intracranial process but CT head normal. Possibly seizures. EEG pending this morning. WBC with bandemia persists. 09/13: CURRENT TEMPERATURE 99. Heart rate and blood pressure control. Noted T changes last night noted a potassium 8.2. Noted hemodialysis catheter placed by overnight ironer sock in right femoral vein and hemodialysis currently undergoing. Plan for drainage of epigastric fluid collection by IR today. 09/14: Currently afebrile. Status post prior drainage of epigastric fluid area. Currently 60 ccwhite pus accordian drain. Status post bronchoscopy yesterday. 09/15 - intubation day #22. Family waiting another 24 hours to consider tracheostomy. He is not able to be extubated. Currently undergoing hemodialysis. Likely dialysis dependent. 09/16: Tmax 100.2. Blood pressure slowly trending downward. He transfuse PRBCs and albumin bolus prior to hemodialysis today. Intubation day #23. Family currently agreeable to tracheostomy but I'm unable to perform until Sunday. Positive BM. 09/17: Tmax 101. Intubation day #24. Tolerating tube feeding. Currently on Versed and fentanyl drips. 09/18: Remains sedated, orally intubated on mechanical ventilation. Scheduled for percutaneous tracheostomy today. Was dialyzed yesterday. Percutaneous drains [address] Ileostomy with good output. Wound VAC in place over anterior abdominal incision site. 09/19: Remains sedated, on mechanical ventilation via tracheostomy. Patient was noted to have some blood oozing from around tracheostomy site this morning as well as around Vas-Cath. Pressure dressing to be applied around Vas-Cath and packing around tracheostomy site and Dr. Howard informed. 09/20: Remains on fentanyl. On mechanical ventilation via tracheostomy. Continues to have fevers. No further bleeding from tracheostomy site or Vas- Cath site. 09/21: Remains on mechanical ventilation via tracheostomy. Resuming subcutaneous heparin today. No further bleeding from Vas-Cath or tracheostomy site. 09/22: Remains on mechanical ventilation, daily C Pap trials. Awake and alert this morning, following commands. 09/23: Tmax 100.2. Currently afebrile. Some oozing from hemodialysis catheter/ left IJ today. Plan for -2 L. Currently on mechanical ventilation while on hemodialysis. Awake and alert and following commands. 09/24: MAXIMUM TEMPERATURE 100.4. Currently afebrile. Noted hyperkalemia this am. Protocol initiated. Will recheck potassium in 3 hours. Awake and alert and following commands. 09/25: Tmax 101.1. Positive BM overnight likely secondary to Kayexalate provided for hyperkalemia. Received hemodialysis and likely will need to receive again today due to hypercatabolic state. Arousable on the ventilator and follows commands. 09/26: Awake and alert, following commands. Remains on mechanical ventilation via tracheostomy. Wound VAC in place over anterior abdominal wall incision site. Ileostomy functional. Tolerating tube feeds. 09/27: Remains awake and alert, following commands. On mechanical ventilation via tracheostomy. Daily C Pap trials. Tolerating tube feeds. Ileostomy functional. Patient will require PEG tube when okay with colorectal surgery. Wound VAC remains in place over the lower part of surgical incision site over anterior abdominal wall. Subjective 09/28: Awake and alert. On mechanical ventilation via tracheostomy. Started on heparin drip today for full anticoagulation for right IJ DVT. Discussed with Dr. Elana Moffett who is okay with proceeding with PEG tube placement however she is going to discuss this with the patient's family. ID has cleared patient for permacath placement. Needs LTAC placement for vent weaning. 09/29: Slightly tachypneic on CPAP, but appears comfortable. Get swallow eval. set up to chair today. Attempt TP. ID cleared for permacath 09/30: Right IJ PermaCath placed 09/29. Tolerating CPAP trail. 10/01: Stable hemodynamics, strong on CPAP/T-piece. 10/02: No acute events overnight. Tolerates TP, about 4 hours yesterday per RT. Dr. Moffett requests discontinuing NGT and supplementing with ensure. 10/03: Resting in bed on mechanical ventilation via tracheostomy. Awake and alert, not in any acute distress. Objective Vital Signs Date Time Temp Pulse Resp B/P Pulse Ox O2 Delivery O2 Flow Rate FiO2 10/03/16 08:44 100 T-piece 6.00 35 10/03/16 06:00 112 10/03/16 04:00 98.9 21 147/79 Intake and Output 10/02/16 10/02/16 10/03/16 08:00 16:00 00:00 Intake Total 100 ml 788 ml 676 ml Output Total 200 ml 1250 ml 200 ml Balance -100 ml -462 ml 476 ml Result Diagram: 10/03/16 0204 10/03/16 0347 Other Results Microbiology Date/Time Procedure Status Source Growth 10/02/16 23:20 Stool Occult Blood (JOSE) - Final Complete Stool Stool HEMOCCULT NEGATIVE Imaging Last Impressions Chest X-Ray 09/24/16 0600 Signed Impressions: Service Date/Time: Saturday, September 24, 2016 03:23 - CONCLUSION: Stable chest x-ray with underinflation and atelectasis at the bases and stable mild airspace opacity at the right base. Claude Carrasco MD Abdomen/Pelvis CT 09/23/16 0000 Signed Impressions: Service Date/Time: Friday, September 23, 2016 15:22 - CONCLUSION: 1. Reduction in size of the hypodense fluid collection in the hepatogastric space with no residual hypodensity seen.. Stable position to be indwelling drainage catheter. 2. Decreasing size lower lung infiltrates. 3. Interval removal of right lower quadrant drain and interval development of a small to moderate size amount of fluid in the cul-de-sac. Evelio Boyd MD Upper Extremity Ultrasound 09/17/16 0000 Signed Impressions: Service Date/Time: Saturday, September 17, 2016 16:48 - CONCLUSION: 1. Positive nonocclusive deep venous thrombosis right internal jugular vein. 2. Nonocclusive superficial thrombosis in the left cephalic vein. Miki Banerjee MD Lower Extremity Ultrasound 09/17/16 0000 Signed Impressions: Service Date/Time: Saturday, September 17, 2016 17:33 - CONCLUSION: Normal examination. Miki Banerjee MD Head CT 09/17/16 0000 Signed Impressions: Service Date/Time: Saturday, September 17, 2016 20:47 - CONCLUSION: 1. No acute intracranial abnormalities. Miki Banerjee MD Chest CT 09/17/16 0000 Signed Impressions: Service Date/Time: Saturday, September 17, 2016 20:46 - CONCLUSION: 1. Multifocal airspace consolidation in the lungs, right greater than left most characteristic of bronchopneumonia. There is underlying mild to moderate emphysema. Small effusions. Miki Banerjee MD Abscess Drainage CT 09/13/16 0000 Signed Impressions: Service Date/Time: Tuesday, September 13, 2016 14:30 - CONCLUSION: Uncomplicated CT guided drainage. Carlo Cortes MD Retroperitoneal Abscess Drainage 09/01/16 0600 Signed Impressions: Service Date/Time: Thursday, September 01, 2016 13:05 - CONCLUSION: Uncomplicated CT guided drainage of a right lower quadrant fluid collection. Approximately 75 cc of fecal-like brown material was aspirated. The air and fluid collection may communicate with the inferior aspect of the midline wound on the anterior abdominal wall. Claude Carrasco MD Abdomen X-Ray 08/24/16 0000 Signed Impressions: Service Date/Time: August 07:44 - CONCLUSION: Gaseous distention of multiple bowel loops possible ileus. Jony Miller MD Enema w/Water Soluble 08/23/16 0000 Signed Impressions: Service Date/Time: Tuesday, August 23, 2016 10:12 - CONCLUSION: Anastomosis appears patent without extravasation. Aditya Rocha MD FACR CT Angiography 08/21/16 0000 Signed Impressions: Service Date/Time: Sunday, August 21, 2016 14:05 - CONCLUSION: 1. There is no evidence for central pulmonary emboli. 2. Minimal subcutaneous air as well as free intraperitoneal air. Aditya Rcoha MD FACR Objective Remarks GENERAL: 56-year-old male. Breathing comfortably SKIN: Warm. Dry. No rash HEAD: Atraumatic. Normocephalic. NECK: Tracheostomy in place. Site clean, dry. CARDIOVASCULAR: S1-S2 regular no gallop or murmur. No JVD. RESPIRATORY: Scattered rhonchi appreciated in all lung nesbitt, no wheezing. Good jorge air movement GASTROINTESTINAL: Abdomen non distended. Midline incision clean and intact. BS active. Ostomy viable. MUSCULOSKELETAL: Extremities with trace bilateral upper and lower extremity edema, well perfused, warm. NEUROLOGICAL: Awake and alert and interactive. Moves all 4 extremities spontaneously. Nods head to questions. No focal deficits Date of Insertion: Aug 31, 2016 Date of Removal: Sep 12, 2016 Side: Right A/P Assessment and Plan NEURO/PSYCH: History of anxiety Acute toxic metabolic encephalopathyresolving -Acetaminophen for fever -Haldol 1 mg every 4 hours when necessary -Ativan 0.5 mg every one hour when necessary agitation -Morphine sulfate 3 milligrams IV every 3 hours when necessary pain -Off sedative drips, follow neuro status. -Head CT 09/11 no acute intracranial findings -EEG 09/12 revealed mild to moderate encephalopathy. No epileptiform activity. -Currently on Cerebyx 300 mg liquid at night. Level 5.7 on 09/18, 3.5 on 09/26 RESP: Acute hypoxemic respiratory failure COPD exacerbation Probable healthcare associated pneumonia -Continue PRVC 22/600 0.75/5/40. Tolerating CPAP/ T piece trials. -Ventilator bundle -Albuterol nebs every 4 hours scheduled and when necessary duo nebs, Symbicort 2 puffs every 12 was discontinued while in ventilator. -Continue Pulmicort 0.5/2 twice a day -Broad-spectrum antibiotics as below -Continue daily C Pap trials. -Dr. Renteria/Pulmonary following -s/p tracheostomy 09/18 CV: Hypotension secondary to septic shock resolved History of hypertension Anuria necessitating hemodialysis. Off all vasopressors Currently on clonidine 0.1 3 times a day, Norvasc 10 mg daily and Coreg 3.125 twice a day. Labetalol prn GI/ Nutrition: Anastomotic leak status post exploratory laparotomy, I&D, loop ileostomy 08/24/16 s/p Laparoscopic robotic extensive ANNA MARIE, robotic LAR and small bowel resection Laparoscopic robotic ANNA MARIE, robotic LAR and small bowel resection with anastomotic leak History of diverticulitis -Status post exploratory laparotomy, I&D, loop ileostomy 08/24/16 -Postoperative management per Dr. Moffett. Broad-spectrum antibiotics as below. positive ostomy output -On Reglan to improve GI motility -Tolerating PO diet, NGT discontinued per Dr. Moffett, Ensure QID with meals -Protonix for GI prophylaxis -All drains have been removed. Wound VAC discontinued. -CT abdomen/pelvis 09/23 revealed decreased fluid in the hepatogastric region. Removal of interval drains. Small to moderate fluid in the cul-de-sac. Renal/: Acute kidney injury History BPH Status post bilateral ureteral stents placed by Dr. Fraser 08/18 -Monitor renal function closely. Mg catheter. -IV fluids discontinued in view of anuric renal failure and hyperkalemia necessitating hemodialysis. Nephrology following for HD ID cleared patient for permacath placement on 09/28. New right IJ hemodialysis catheter placed 09/01 -> D/C 09/13. New right femoral hemodialysis catheter placed 09/13 -> D/C 09/19 New LIJ vascath placed 09/18 -> D/C 09/25 New Left Subclavian vascath placed 09/26 -> d'/c New Right IJ Permacath 09/29 ID: Anastomotic leak Sepsis Probable HCAP Current regimen is Flagyl 500 mg IV every 6 hours, Diflucan 200 mg IV 24 hours and aztreonam 500 mg IV every 12 hours. Also tobramycin aerosols twice a day. Pertinent culture 09/20 - wound - Pseudomonas and Iram Alb and Paropsilosis 09/17 - sputum - Pseudomonas 09/17 - blood cultures 2- no growth 09/13 - bronchial -Pseudomonas 09.13 - abdomen abscess -Pseudomonas/yeast 09/01: Abdominal wound - Pseudomonas, enterococcus, Iram 08/31 - line culture Pseudomonas/coag negative staph 08/31 - blood cultures 2 -no growth 08/31 - sputum - pending 08/29 - wound - Pseudomonas, group D enterococcus, C. albicans and yeast 08/25 blood cultures - no growth 08/25 sputum - Serratia/Klebsiella/Pseudomonas 08/24 - wound - no growth HEME: Leukocytosis Normocytic anemia Thrombocytosis RIJ DVT (nonocclusive) Left cephalic superficial thrombus -Monitor CBC, CMP, coags -Full anticoagulation resumed for right IJ DVT on 09/28. Continue Coumadin, pharmacy to dose - Transfused 1 unit PRBCs on 10/01 ENDO: -Sliding-scale insulin with Accu-Cheks every 6 hours for glycemic control. Levemir 20 units twice a day currently on hold FEN: Hyperphosphatemia Hyperkalemia Continue PhosLo 1334 mg 3 times a day for hyperphosphatemia. Hemodialysis per renal. Received D50/insulin/bicarbonate/Kayexalate on 09/25 for hyperkalemia. PROPH: -Bilateral lower extremity SCDs. Heparin gtt for RIJ DVT resumed 09/28/16 (held for scheduled trach), start Coumadin today 10/02/16. Protonix for GI prophylaxis LINES: -Left subclavian central line placed in the OR 08/24 - 08/31. Right subclavian central line placed 08/31 - 09/11 - RIJ dialysis catheter 08/25 -08/31. New right IJ hemodialysis catheter 09/01 - - Right femoral hemodialysis catheter 09/13 - 09/19 New LIJ vascath placed 09/18 -> D/C 09/25 New Left Subclavian vascath placed 09/26 Dr. Quarles called Natalia (pt's family) on 09/26 and and got her voice mail. Left message to call back. Patient will need LTAC placement-case management consulted. Discussed with Dr. Elana Moffett on 09/28, she is okay with proceeding with PEG tube placement however she will be talking to patient's family regarding that-will also get swallow eval to see whether patient and take by mouth diet . Dr. Moffett also is okay with transferring to LTAC. Satya Quarles MD Oct 03, 2016 09:00
[2016-10-03] MEDS: CARVEDILOL 3.125 MG TAB PO SCH ×2 (09:03→20:16)
[2016-10-03] MEDS: CALCIUM ACETATE 667 MG CAP PO SCH ×3 (09:03→18:09)
[2016-10-03] MEDS: MUPIROCIN 2% OINT 1 APPLIC/GM SYR EACH NARE SCH ×2 (09:05→20:15)
[2016-10-03] MEDS: PANTOPRAZOLE SODIUM 40 MG VIAL IVP SCH (09:06)
--- NOTE | 2016-10-03 10:40 | HHI.NPPN ---
Subjective General Problems: Edema Renal Failure: Acute Interval History Getting into chair with therapy. Still on vent. Has had 300 ml urine output since 7pm last night, using urinal. (Fransisca Canela) Review of Systems General Constitutional: Fever, Fatigue (Fransisca Canela) Musculoskeletal MS Remarks generalized pain (Fransisca Canela) Objective Data Data 10/02/16 10/03/16 19:00 07:00 Intake Total 788 ml 1150 ml Output Total 1250 ml 350 ml Balance -462 ml 800 ml Intake Oral 250 ml 240 ml IV Total 538 ml 910 ml Stool Total 250 ml 350 ml Hemodialysis 1000 ml # Voids 1 Vital Signs Date Time Temp Pulse Resp B/P Pulse Ox O2 Delivery O2 Flow Rate FiO2 10/03/16 10:00 113 10/03/16 08:44 100 T-piece 6.00 35 10/03/16 08:00 122 10/03/16 08:00 35 10/03/16 08:00 99.6 108 26 133/73 100 10/03/16 06:00 112 10/03/16 04:14 100 35 10/03/16 04:00 35 10/03/16 04:00 102 10/03/16 04:00 98.9 102 21 147/79 100 10/03/16 02:00 112 10/03/16 00:59 100 35 10/03/16 00:00 108 10/03/16 00:00 35 10/03/16 00:00 98.6 108 31 141/68 98 10/02/16 22:34 100 35 10/02/16 22:00 110 10/02/16 20:00 98.8 110 25 132/74 100 10/02/16 20:00 35 10/02/16 20:00 110 10/02/16 19:38 100 35 10/02/16 18:00 120 10/02/16 16:00 98.7 105 19 142/73 100 10/02/16 16:00 105 10/02/16 16:00 35 10/02/16 14:51 100 35 10/02/16 14:50 35 10/02/16 14:00 119 10/02/16 12:16 100 35 10/02/16 12:00 35 10/02/16 12:00 113 10/02/16 12:00 98.4 113 22 149/71 100 (Fransisca Canela) -: 10/03/16 0204 10/03/16 0347 Microbiology 10/02/16 Stool Occult Blood (KYUNG) - Final, Complete HEMOCCULT NEGATIVE Imaging Last Impressions Chest X-Ray 10/03/16 0600 Signed Impressions: Service Date/Time: Monday, October 03, 2016 05:15 - CONCLUSION: Bibasilar densities. Jony Miller MD Abdomen/Pelvis CT 09/23/16 0000 Signed Impressions: Service Date/Time: Friday, September 23, 2016 15:22 - CONCLUSION: 1. Reduction in size of the hypodense fluid collection in the hepatogastric space with no residual hypodensity seen.. Stable position to be indwelling drainage catheter. 2. Decreasing size lower lung infiltrates. 3. Interval removal of right lower quadrant drain and interval development of a small to moderate size amount of fluid in the cul-de-sac. Evelio Boyd MD Upper Extremity Ultrasound 09/17/16 0000 Signed Impressions: Service Date/Time: Saturday, September 17, 2016 16:48 - CONCLUSION: 1. Positive nonocclusive deep venous thrombosis right internal jugular vein. 2. Nonocclusive superficial thrombosis in the left cephalic vein. Miki Banerjee MD Lower Extremity Ultrasound 09/17/16 0000 Signed Impressions: Service Date/Time: Saturday, September 17, 2016 17:33 - CONCLUSION: Normal examination. Miki Banerjee MD Head CT 09/17/16 0000 Signed Impressions: Service Date/Time: Saturday, September 17, 2016 20:47 - CONCLUSION: 1. No acute intracranial abnormalities. Miki Banerjee MD Chest CT 09/17/16 0000 Signed Impressions: Service Date/Time: Saturday, September 17, 2016 20:46 - CONCLUSION: 1. Multifocal airspace consolidation in the lungs, right greater than left most characteristic of bronchopneumonia. There is underlying mild to moderate emphysema. Small effusions. Miki Banerjee MD Abscess Drainage CT 09/13/16 0000 Signed Impressions: Service Date/Time: Tuesday, September 13, 2016 14:30 - CONCLUSION: Uncomplicated CT guided drainage. Carlo Cortes MD Retroperitoneal Abscess Drainage 09/01/16 0600 Signed Impressions: Service Date/Time: Thursday, September 01, 2016 13:05 - CONCLUSION: Uncomplicated CT guided drainage of a right lower quadrant fluid collection. Approximately 75 cc of fecal-like brown material was aspirated. The air and fluid collection may communicate with the inferior aspect of the midline wound on the anterior abdominal wall. Claude Carrasco MD Abdomen X-Ray 08/24/16 0000 Signed Impressions: Service Date/Time: August 07:44 - CONCLUSION: Gaseous distention of multiple bowel loops possible ileus. Jony Miller MD Enema w/Water Soluble 08/23/16 0000 Signed Impressions: Service Date/Time: Tuesday, August 23, 2016 10:12 - CONCLUSION: Anastomosis appears patent without extravasation. Aditya Rocha MD FACR CT Angiography 08/21/16 0000 Signed Impressions: Service Date/Time: Sunday, August 21, 2016 14:05 - CONCLUSION: 1. There is no evidence for central pulmonary emboli. 2. Minimal subcutaneous air as well as free intraperitoneal air. Aditya Rocha MD FACR Tubes & Lines: Perma-Cath Tubes & Lines Comment trach Drip Comment heparin (Fransisca Canela B. DETECTIVE INVESTIGATOR) Physical Exam General Appearance: Well Developed, Well Nourished, No Acute Distress Appearance Remarks awake on ventilator via trach, nods yes/no to questions (Fransisca Canela B. DETECTIVE INVESTIGATOR ) Throat Throat Exam: Oral Mucosa [place] & Moist (Fransisca Canela B. DETECTIVE INVESTIGATOR) Neck Neck Remarks trach (Fransisca Canela B. DETECTIVE INVESTIGATOR) Pulmonary Resp Exam: Breath Sounds Equal, No Distress, Crackles, Sputum, Diminished Breath Sounds Resp Remarks vented, increased secretions (Fransisca Canela B. DETECTIVE INVESTIGATOR) Cardiology CV Exam: Regular, Normal Sinus Rhythm (Fransisca Canela B. DETECTIVE INVESTIGATOR) Gastrointestinal/Abdomen GI Exam: Distended GI Remarks colostomy with pink/red stoma stool in colostomy bag (Fransisca Canela B. DETECTIVE INVESTIGATOR) Musculoskeletal MS Exam: Joints Intact, Atrophy, Unable to Ambulate (Fransisca Canela B. DETECTIVE INVESTIGATOR) Integumentary Skin Exam: Warm, Dry Skin Remarks below umbilicus, midabdominal wound is healing, scabbed over (Fransisca Canela) Extremeties Extremities Exam: No Edema, Pedal Pulses Palpable (Fransisca Canlea) Neurologic Neuro Exam: Alert, Awake, Moving All Extremities (Fransisca Canela) VTE Prophylaxis Device: SCDs Meds: Heparin (Fransisca Canela) Assessment/Plan Discussed Condition With: Patient Assessment Summary: VIRIDIANA/Acute Renal Failure, Acute Tubular Necrosis, Hypertension Problem List: (1) Acute renal failure Plan: He has developed ATN due to sepsis. Dialysis initiated 3/3 MWF dialysis; had HD yesterday with 1L UF New tunneled HD catheter placed with IR Sunday. functioning well he has began to make some urine, continue to monitor await renal recovery Avoid nephrotoxic agents. off IVF check phosphorus level in am, he is on PhosLo (2) Sepsis Plan: ID following. Now on Aztreonam, Fluconazole, Flagyl, and Tobramycin nebulizer. blood cultures are negative he is on droplet for pseudomonas in sputum continue PT/OT pending rehab placement (3) DVT (deep venous thrombosis) Plan: right IJ DVT, on Heparin since 09/28 being bridged to Coumadin (Fransisca Canela) Plan patient was seen and examined. Urine output has improved. Recovering ATN? Monitor urine output and renal function as well as electrolytes. Dialysis as needed. (Tito Kuo MD) Problem Qualifiers (1) Acute renal failure: Qualified Code: N17.0 - Acute renal failure with tubular necrosis Fransisca Canela Oct 03, 2016 10:39 Tito Kuo MD Oct 03, 2016 11:48
--- NOTE | 2016-10-03 12:34 | HHI.IDPN ---
Note Infectious Disease Note Notes reviewed. He is now on T-piece x a few hours. Alert and responsive. Trying to communicate verbally but difficult to understand. Afebrile. No pain. Upright in reclined bed. Little henry trach secretions. Post trach 09/18. PAST MEDICAL HISTORY 1. Diverticulitis. 2. COPD. 3. Hypertension. 4. Anxiety disorder. 5. BPH. 6. History of tonsillectomy. ALLERGIES No known drug allergies. ANTIBIOTICS 1. Fluconazole. 2. Aztreonam. 3. Levaquin. 4. Flagyl. OBJECTIVE: Vital Signs Date Time Temp Pulse Resp B/P Pulse Ox O2 Delivery O2 Flow Rate FiO2 10/03/16 12:00 98.9 118 31 148/89 100 10/03/16 12:00 35 10/03/16 12:00 121 10/03/16 10:00 113 10/03/16 08:44 100 T-piece 6.00 35 10/03/16 08:00 122 10/03/16 08:00 35 10/03/16 08:00 99.6 108 26 133/73 100 10/03/16 06:00 112 10/03/16 04:14 100 35 10/03/16 04:00 35 10/03/16 04:00 102 10/03/16 04:00 98.9 102 21 147/79 100 10/03/16 02:00 112 10/03/16 00:59 100 35 10/03/16 00:00 108 10/03/16 00:00 35 10/03/16 00:00 98.6 108 31 141/68 98 10/02/16 22:34 100 35 10/02/16 22:00 110 10/02/16 20:00 98.8 110 25 132/74 100 10/02/16 20:00 35 10/02/16 20:00 110 10/02/16 19:38 100 35 10/02/16 18:00 120 10/02/16 16:00 98.7 105 19 142/73 100 10/02/16 16:00 105 10/02/16 16:00 35 10/02/16 14:51 100 35 10/02/16 14:50 35 10/02/16 14:00 119 10/02/16 10/02/16 10/03/16 15:00 23:00 07:00 Intake Total 788 ml 676 ml 474 ml Output Total 250 ml 1200 ml 150 ml Balance 538 ml -524 ml 324 ml Intake Oral 250 ml 120 ml 120 ml IV Total 538 ml 556 ml 354 ml Stool Total 250 ml 200 ml 150 ml Hemodialysis 1000 ml # Voids 1 Laboratory Tests Test 10/02/16 10/03/16 03:30 02:04 White Blood Count 10.9 TH/MM3 12.5 TH/MM3 Red Blood Count 2.61 MIL/MM3 2.68 MIL/MM3 Hemoglobin 7.8 GM/DL 7.8 GM/DL Hematocrit 22.8 % 23.6 % Mean Corpuscular Volume 87.3 FL 88.0 FL Mean Corpuscular Hemoglobin 29.8 PG 29.0 PG Mean Corpuscular Hemoglobin 34.2 % 32.9 % Concent Red Cell Distribution Width 17.2 % 17.5 % Platelet Count 289 TH/MM3 298 TH/MM3 Mean Platelet Volume 7.8 FL 7.4 FL Neutrophils (%) (Auto) 73.3 % 71.9 % Lymphocytes (%) (Auto) 14.1 % 13.7 % Monocytes (%) (Auto) 8.6 % 11.3 % Eosinophils (%) (Auto) 2.7 % 2.0 % Basophils (%) (Auto) 1.3 % 1.1 % Neutrophils # (Auto) 8.0 TH/MM3 9.0 TH/MM3 Lymphocytes # (Auto) 1.5 TH/MM3 1.7 TH/MM3 Monocytes # (Auto) 0.9 TH/MM3 1.4 TH/MM3 Eosinophils # (Auto) 0.3 TH/MM3 0.2 TH/MM3 Basophils # (Auto) 0.1 TH/MM3 0.1 TH/MM3 CBC Comment AUTO DIFF AUTO DIFF Differential Total Cells 100 100 Counted Neutrophils % (Manual) 72 % 68 % Band Neutrophils % 7 % 4 % Lymphocytes % 11 % 16 % Monocytes % 5 % 5 % Basophils % 1 % Neutrophils # (Manual) 9.0 TH/MM3 9.9 TH/MM3 Metamyelocytes 3 % 2 % Myelocytes 1 % 5 % Differential Comment FINAL DIFF FINAL DIFF MANUAL MANUAL Platelet Estimate NORMAL NORMAL Platelet Morphology Comment NORMAL NORMAL Red Cell Morphology Comment NORMAL Laboratory Tests Test 10/02/16 10/03/16 03:30 03:47 Sodium Level 136 MEQ/L 137 MEQ/L Potassium Level 4.0 MEQ/L 3.8 MEQ/L Chloride Level 98 MEQ/L 98 MEQ/L Carbon Dioxide Level 26.8 MEQ/L 30.3 MEQ/L Anion Gap 11 MEQ/L 9 MEQ/L Blood Urea Nitrogen 46 MG/DL 24 MG/DL Creatinine 4.09 MG/DL 2.71 MG/DL Estimat Glomerular Filtration 15 ML/MIN 24 ML/MIN Rate Random Glucose 112 MG/DL 90 MG/DL Calcium Level 8.8 MG/DL 9.3 MG/DL Total Bilirubin 0.5 MG/DL Aspartate Amino Transf 26 U/L (AST/SGOT) Alanine Aminotransferase 16 U/L (ALT/SGPT) Alkaline Phosphatase 212 U/L Total Protein 7.2 GM/DL Albumin 2.0 GM/DL Microbiology Date/Time Procedure Status Source Growth 10/02/16 23:20 Stool Occult Blood ([facility]) - Final Complete Stool Stool HEMOCCULT NEGATIVE Microbiology Date/Time Procedure Status Source Growth 09/17/16 12:50 Gram Stain - Final Resulted Sputum Endotracheal 09/17/16 12:50 Sputum Culture - Preliminary Resulted Pseudomonas Aeruginosa 09/17/16 17:47 Stool Occult Blood ([facility]UNG) - Final Complete Stool Stool HEMOCCULT POSITIVE Microbiology Date/Time Procedure Status Source Growth 09/13/16 15:03 Gram Stain - Final Resulted Abscess Abdomen 09/13/16 15:03 Wound Culture - Preliminary Resulted Gram Negative Denis 09/13/16 17:20 Gram Stain - Final Resulted Bronchial Washings Right Mid Lobe 09/13/16 17:20 Bronchial Culture - Preliminary Resulted Pseudomonas Aeruginosa 09/13/16 17:20 Acid Fast Stain Worksheet Bronchial Washings Right Mid Lobe Pending 09/13/16 17:20 Mycobacterial Culture Worksheet Bronchial Washings Right Mid Lobe Pending 09/13/16 17:20 Fungal Smear - Final Resulted Bronchial Washings Right Mid Lobe NO FUNGAL ELEMENTS SEEN. 09/13/16 17:20 Fungal Culture Resulted Bronchial Washings Right Mid Lobe Pending Imaging: Chest X-Ray 10/03/16 0600 Signed Impressions: Service Date/Time: Monday, October 03, 2016 05:15 - CONCLUSION: Bibasilar densities. Jony Miller MD Chest X-Ray 09/21/16 0000 Signed Impressions: Service Date/Time: August 12:39 - CONCLUSION: Decreasing bilateral pulmonary opacity with residual atelectasis at the right lung base. Javier Aguilar MD PHYSICAL EXAMINATION GENERAL: Alert. No distress. HEENT: No icterus. Trach in place. NECK: No adenopathy or swelling. LUNGS: Clear breath sounds. HEART: Regular rate and rhythm. No audible murmurs, rubs or gallops. ABDOMEN: Positive bowel sounds. EXTREMITIES: No clubbing or cyanosis. No edema. Distal pulses 2+. SKIN: No rash. NEUROLOGIC: Awake and alert. IMPRESSION 1. Sepsis. Pseudomonas on CVL culture of removed line. Treated. 2. Peritonitis. Post abdominal surgery/Bowel resection - enterococcus, pseudomonas and yeast. Improved. 3. Pneumonia. pseudomonas ( resistant strain). Improved. 4. Leukocytosis secondary to infection. 5. Acute renal failure. Improving. 6. Acute respiratory failure. Extubated. 7. Thrombosis R. internal Jugular vein. 8. Fever ? line vs intra abdominal infection vs PNA. Clinically stable. RECOMMENDATIONS 1. Continue Aztreonam IV another 5 days. 2. Continue Fluconazole another 7 days PO. 3. Continue Flagyl another 7 days PO. 4. Continue Levaquin another 7 days PO. 5. Monitor white blood cell count. Okay for transfer to LT[facility] from ID standpoint. Tim Apodaca MD Oct 03, 2016 12:34
[2016-10-03] MEDS: AZTREONAM INJ 500 MG in SODIUM CHLORIDE 0.9% INJ 100 ML IV SCH ×2 (13:46→23:52)
[2016-10-03] MEDS: WARFARIN SOD 3 MG TAB PO SCH (15:44)
[2016-10-03] MEDS: LEVOFLOXACIN 250 MG TAB PO SCH (15:46)
--- NOTE | 2016-10-03 17:09 | HHI.PR ---
Subjective Remarks POD#45 s/p robotic LAR/SBR/ANNA MARIE, POD#38 s/p ex lap, washout, diverting loop ileostomy awake, alert, reports pain at shoulders and buttocks Objective Vital Signs Date Time Temp Pulse Resp B/P Pulse Ox O2 Delivery O2 Flow Rate FiO2 10/03/16 16:50 100 35 10/03/16 16:00 123 10/03/16 16:00 98.8 120 24 148/77 98 10/03/16 16:00 35 10/03/16 14:00 117 10/03/16 12:00 98.9 118 31 148/89 100 10/03/16 12:00 35 10/03/16 12:00 121 10/03/16 10:00 113 10/03/16 08:44 100 T-piece 6.00 35 10/03/16 08:00 122 10/03/16 08:00 35 10/03/16 08:00 99.6 108 26 133/73 100 10/03/16 06:00 112 10/03/16 04:14 100 35 10/03/16 04:00 35 10/03/16 04:00 102 10/03/16 04:00 98.9 102 21 147/79 100 10/03/16 02:00 112 10/03/16 00:59 100 35 10/03/16 00:00 108 10/03/16 00:00 35 10/03/16 00:00 98.6 108 31 141/68 98 10/02/16 22:34 100 35 10/02/16 22:00 110 10/02/16 20:00 98.8 110 25 132/74 100 10/02/16 20:00 35 10/02/16 20:00 110 10/02/16 19:38 100 35 10/02/16 18:00 120 I/O 10/02/16 10/02/16 10/02/16 10/03/16 10/03/16 10/03/16 07:00 15:00 23:00 07:00 15:00 23:00 Intake Total 100 ml 788 ml 676 ml 474 ml 782 ml Output Total 200 ml 250 ml 1200 ml 150 ml 375 ml Balance -100 ml 538 ml -524 ml 324 ml 407 ml Intake Oral 250 ml 120 ml 120 ml 460 ml IV Total 100 ml 538 ml 556 ml 354 ml 322 ml Output Urine Total 175 ml Stool Total 200 ml 250 ml 200 ml 150 ml 200 ml Hemodialysis 1000 ml # Voids 1 1 Result Diagram: 10/03/16 0204 10/03/16 0347 Objective Remarks Abdomen soft Wounds clean Stoma pink, functional Assessment and Plan Assessment and Plan CV - BP stable RESP - tolerated T piece for 8 hours KIDNEY - some urine but still anuric,continue HD FEN - NGT out, passed swallow test. Did ok with breakfast, tolerating Ensure ID - afebrile, WBC's slightly up Encouraged him to stay up a little longer. Elana Moffett MD Oct 03, 2016 17:09
[2016-10-03] MEDS: metroNIDAZOLE 500 MG TAB PO SCH ×2 (18:09→23:52)
--- NOTE | 2016-10-03 18:47 | HHI.PR ---
Subjective Remarks YOAA male with robotic surgery,COPD exac Underwent exp lap,I&d and loop iliostomy placement no fever on Heparin For rt IJ DVT Tolerated T piece for 4 hrs tolerated, PO On AC 18, Fi02 35% Objective Vital Signs Vital Signs Date Time Temp Pulse Resp B/P Pulse Ox O2 Delivery O2 Flow Rate FiO2 10/03/16 18:00 109 10/03/16 16:50 100 35 10/03/16 16:00 123 10/03/16 16:00 98.8 120 24 148/77 98 10/03/16 16:00 35 10/03/16 14:00 117 10/03/16 12:00 98.9 118 31 148/89 100 10/03/16 12:00 35 10/03/16 12:00 121 10/03/16 10:00 113 10/03/16 08:44 100 T-piece 6.00 35 10/03/16 08:00 122 10/03/16 08:00 35 10/03/16 08:00 99.6 108 26 133/73 100 10/03/16 06:00 112 10/03/16 04:14 100 35 10/03/16 04:00 35 10/03/16 04:00 102 10/03/16 04:00 98.9 102 21 147/79 100 10/03/16 02:00 112 10/03/16 00:59 100 35 10/03/16 00:00 108 10/03/16 00:00 35 10/03/16 00:00 98.6 108 31 141/68 98 10/02/16 22:34 100 35 10/02/16 22:00 110 10/02/16 20:00 98.8 110 25 132/74 100 10/02/16 20:00 35 10/02/16 20:00 110 10/02/16 19:38 100 35 I/O 10/02/16 10/02/16 10/02/16 10/03/16 10/03/16 10/03/16 07:00 15:00 23:00 07:00 15:00 23:00 Intake Total 100 ml 788 ml 676 ml 474 ml 782 ml Output Total 200 ml 250 ml 1200 ml 150 ml 375 ml Balance -100 ml 538 ml -524 ml 324 ml 407 ml Intake Oral 250 ml 120 ml 120 ml 460 ml IV Total 100 ml 538 ml 556 ml 354 ml 322 ml Output Urine Total 175 ml Stool Total 200 ml 250 ml 200 ml 150 ml 200 ml Hemodialysis 1000 ml # Voids 1 1 Result Diagram: 10/03/16 0204 10/03/16 0347 Objective Remarks GENERAL: WBWN obese male, on Vent , sedated SKIN: Warm and dry. HEAD: Normocephalic. EYES: No scleral icterus. No injection or drainage. NECK: Supple, trachea midline. No JVD or lymphadenopathy. CARDIOVASCULAR: Regular rate and rhythm without murmurs, gallops, or rubs. RESPIRATORY: Breath sounds equal bilaterally. No accessory muscle use. exp rhonchi GASTROINTESTINAL: Abdomen soft, non-tender, Abd distended MUSCULOSKELETAL: No cyanosis, or edema. BACK: Nontender without obvious deformity. No CVA tenderness. A/P Assessment and Plan Resp Failure, on vent COPD exac S/p robotic surgery Anxiety S/p Exp lap PLAN: Cont vent support, aerosol nebs Nebuliser rx qid and prn Abx per ID Monitor lytes Cont Vent T -piece in AM Tolerates Robbie Barry MD Oct 03, 2016 18:47
[2016-10-03] MEDS: PHENYTOIN SUSP 100 MG/4 ML CUP PO SCH (20:16)
[2016-10-03] MEDS: SODIUM CHLORIDE 0.9% FLUSH 5 ML FLUSH IVF PRN ×2 (20:17→22:14)
[2016-10-04] VITALS (13 sets, daily range): BP systolic 105–149; BP diastolic 57–84; PULSE 96–120; RESP 19–34; TEMP 97.9–99.6; O2SAT 98–100
[2016-10-04] MEDS: RESP: ALBUTEROL 2.5 MG/3 ML NEB (SCH) INH ×4 (03:02→20:09)
[2016-10-04] MEDS: HEPARIN-D5W INJ 250 ML IV SCH (03:03)
[2016-10-04] MEDS: LORazepam 2 MG/ML VIAL IV PUSH PRN ×5 (03:03→23:29)
[2016-10-04] MEDS: cloNIDine HCL 0.1 MG TAB PO SCH ×3 (05:11→22:04)
[2016-10-04] MEDS: metroNIDAZOLE 500 MG TAB PO SCH ×4 (05:11→23:03)
[2016-10-04] MEDS: ARTIFICIAL TEARS OPTH SOLN 15 ML BTL EACH EYE SCH ×3 (05:12→20:38)
[2016-10-04] MEDS: MORPHINE SULFATE 4 MG/ML INJ IV PRN ×5 (05:12→23:29)
[2016-10-04 06:16] LABS: INTERNATIONAL NORMALIZED RATIO 1.2 RATIO; PROTHROMBIN TIME - PATIENT 13.2 SEC (9.8-11.6)
[2016-10-04 07:13] LABS: HEMATOCRIT 22.1 % (39.0-51.0); MEAN CELL VOLUME 89.3 FL (80.0-100.0); MEAN CORPUSCULAR HEMOGLOBIN 29.8 PG (27.0-34.0); MEAN CORPUSCULAR HGB CONC 33.4 % (32.0-36.0); PLATELET COUNT 291 TH/MM3 (150-450); RED BLOOD COUNT 2.47 MIL/MM3 (4.50-5.90); RED CELL DISTRIBUTION WIDTH 17.3 % (11.6-17.2); REVIEW FLAG FINAL; WHITE BLOOD COUNT 8.8 TH/MM3 (4.0-11.0)
[2016-10-04] MEDS: CHLORHEXIDINE 0.12% (ORAL KIT) 15 ML CUP MT SCH ×2 (08:00→20:13)
[2016-10-04] MEDS: RESP: BUDESONIDE 0.5 MG/2 ML NEB NEB SCH ×2 (08:26→20:09)
[2016-10-04] MEDS: CALCIUM ACETATE 667 MG CAP PO SCH ×3 (09:00→18:25)
[2016-10-04] MEDS: INSULIN NovoLIN REGULAR SUPPLEMENTAL SCALE SQ SCH ×2 (09:00→21:00)
[2016-10-04] MEDS: CARVEDILOL 3.125 MG TAB PO SCH ×2 (09:00→20:37)
[2016-10-04] MEDS: MUPIROCIN 2% OINT 1 APPLIC/GM SYR EACH NARE SCH ×2 (09:00→20:12)
[2016-10-04] MEDS: FLUCONAZOLE 200 MG TAB PO SCH (09:00)
[2016-10-04] MEDS: LACTOBACILLUS ACIDOPHILUS TAB NG SCH ×3 (09:00→18:25)
[2016-10-04] MEDS: SODIUM CHLORIDE 0.9% FLUSH 5 ML FLUSH IVF SCH ×2 (09:00→20:38)
--- NOTE | 2016-10-04 09:24 | HHI.CCPN ---
Subjective Remarks/Hospital Course 08/25: Patient is a 58-year-old male with past medical history significant COPD who, on 08/18/16, underwent Laparoscopic robotic extensive lysis of adhesions, low anterior resection and small bowel resection. Apparently he was brought in by Dr. Moffett for Diverticulitis. Patient has a history of hypertension, COPD, and continues to smoke one pack of cigarettes a day. Postoperatively patient became progressively short of breath. Pulmonary was consulted on 08/21/16 as the patient was becoming more hypoxemic requiring BiPAP. CT of the chest PE protocol did not show any pulmonary embolism. Patient was placed on breathing treatments and IV Solu-Medrol 40 mg every [address] Renteria. Today a.m. patient was on 100% nonrebreather. Patient was diagnosed with an anastomotic leak today and was taken back to the OR by Dr. Moffett. He underwent exploratory laparotomy, I&D and loop ileostomy today. Postop patient remained hypoxemic requiring 70% oxygen, and hence was left intubated and critical care medicine was consulted. Dr. Arce evaluated the patient in ICU. He remained hypoxemic, FiO2 70%. Chest x-ray shows bibasilar mild infiltrates. On sedation lightening patient became very hypertensive, not following commands probably secondary to residual NM blockade received while being transported to ICU. Patient on receiving vancomycin Levaquin and Flagyl per Dr. Moffett. Dr. Arce added cefepime to cover for Pseudomonas. Holding Solu-Medrol due to anastomotic leak. 08/26: Remains sedated, orally intubated on mechanical ventilation. Went into anuric renal failure yesterday which did not respond to fluid boluses and diuretics hence was started on hemodialysis after placement of right IJ Vas- Cath. Currently sedated, arousable, remains orally intubated on mechanical ventilation. Blood pressure borderline last evening following dialysis for which she was started on low-dose vasopressin 0.03 units per minute and Levophed which is currently at 1 jose per minute. Started on TPN last night following which he has been hyperglycemic. 08/27: Sedated, arousable, orally intubated on mechanical ventilation. Spiking fevers overnight. Off Levophed, transiently off vasopressin. Remains on TPN. 08/28: Remains sedated, arousable, orally intubated on mechanical ventilation. On low-dose vasopressin. TPN continues. Made about 500 cc of urine in the last 24 hours. 08/29: In sedated, arousable, orally intubated on mechanical ventilation. Remains on TPN. Dirty drainage from left-sided SERGEI drain noted overnight. Dr. Moffett obtaining CT abdomen pelvis with oral contrast and ID consulted. 08/30: CURRENT TEMPERATURE 99. Status post 4 L hemodialysis today. No current change in therapy. White blood cell count remained stable. Off vasopressors. Arousable to voice. Versed has been discontinued. We'll attempt CPAP trials again today. 08/31: MAXIMUM TEMPERATURE 100.4. Currently 100.1. Currently resting in bed in no acute distress. Continues with scant drainage from bilateral JPs. We'll attempt CPAP trial again today. Positive stool from ostomy bag 09/01: Tmax 99.8. Currently 99.3. Placement of the new right IJ vas catheter today. Plan for IR to possibly drain right lower quadrant fluid collection. Arousable and moves all 4 extremity spontaneously. 09/02: Currently afebrile. Noted placement of iron drain with accordion drain. Growing Pseudomonas. Lasted only 2 hours on CPAP trials today. 09/03: Tolerated SBT for only 30 mins and required PS 20. Not ready to extubate. 09/04: Tachypnea related to anxiety? or metabolic acidosis. Will check VBG. Not tolerating SBT. Anemia. Transfuse during HD. 09/05: Remains very tachypneic on SBTs. Unable to extubate. 09/06: Leukocytosis and bandemia. Acts like ongoing sepsis. 09/07: No significant changes. Afebrile. Tolerating TFs as recommended by CRS. Will transition from TPN to enteral feeds now. 09/08: Bandemia persists. Tolerating full TFs. D/c'd TPN. Glucose control acceptable. 09/09: Tolerating longer CPAP/PS trials. 09/10: Stronger respiratory effort. Try to extubate today. 09/11: Stable hemodynamics, marginal respiratory function. 09/11 update 1800 hrs: Patient developed sudden hyperventilation to 55-60/min, hypertensive urgency to 220/120s, unresponsive state, started versed 10 mg/hr after 10 mg iv. Load with cerebyx, get head CT, EEG in a.m. 09/12: BP and pulse rate control improved with sedation. Etiology unclear. Suspected intracranial process but CT head normal. Possibly seizures. EEG pending this morning. WBC with bandemia persists. 09/13: CURRENT TEMPERATURE 99. Heart rate and blood pressure control. Noted T changes last night noted a potassium 8.2. Noted hemodialysis catheter placed by overnight systems integration manager in right femoral vein and hemodialysis currently undergoing. Plan for drainage of epigastric fluid collection by IR today. 09/14: Currently afebrile. Status post prior drainage of epigastric fluid area. Currently 60 ccwhite pus accordian drain. Status post bronchoscopy yesterday. 09/15 - intubation day #22. Family waiting another 24 hours to consider tracheostomy. He is not able to be extubated. Currently undergoing hemodialysis. Likely dialysis dependent. 09/16: Tmax 100.2. Blood pressure slowly trending downward. He transfuse PRBCs and albumin bolus prior to hemodialysis today. Intubation day #23. Family currently agreeable to tracheostomy but I'm unable to perform until Sunday. Positive BM. 09/17: Tmax 101. Intubation day #24. Tolerating tube feeding. Currently on Versed and fentanyl drips. 09/18: Remains sedated, orally intubated on mechanical ventilation. Scheduled for percutaneous tracheostomy today. Was dialyzed yesterday. Percutaneous drains [address] Ileostomy with good output. Wound VAC in place over anterior abdominal incision site. 09/19: Remains sedated, on mechanical ventilation via tracheostomy. Patient was noted to have some blood oozing from around tracheostomy site this morning as well as around Vas-Cath. Pressure dressing to be applied around Vas-Cath and packing around tracheostomy site and Dr. Howard informed. 09/20: Remains on fentanyl. On mechanical ventilation via tracheostomy. Continues to have fevers. No further bleeding from tracheostomy site or Vas- Cath site. 09/21: Remains on mechanical ventilation via tracheostomy. Resuming subcutaneous heparin today. No further bleeding from Vas-Cath or tracheostomy site. 09/22: Remains on mechanical ventilation, daily C Pap trials. Awake and alert this morning, following commands. 09/23: Tmax 100.2. Currently afebrile. Some oozing from hemodialysis catheter/ left IJ today. Plan for -2 L. Currently on mechanical ventilation while on hemodialysis. Awake and alert and following commands. 09/24: MAXIMUM TEMPERATURE 100.4. Currently afebrile. Noted hyperkalemia this am. Protocol initiated. Will recheck potassium in 3 hours. Awake and alert and following commands. 09/25: Tmax 101.1. Positive BM overnight likely secondary to Kayexalate provided for hyperkalemia. Received hemodialysis and likely will need to receive again today due to hypercatabolic state. Arousable on the ventilator and follows commands. 09/26: Awake and alert, following commands. Remains on mechanical ventilation via tracheostomy. Wound VAC in place over anterior abdominal wall incision site. Ileostomy functional. Tolerating tube feeds. 09/27: Remains awake and alert, following commands. On mechanical ventilation via tracheostomy. Daily C Pap trials. Tolerating tube feeds. Ileostomy functional. Patient will require PEG tube when okay with colorectal surgery. Wound VAC remains in place over the lower part of surgical incision site over anterior abdominal wall. Subjective 09/28: Awake and alert. On mechanical ventilation via tracheostomy. Started on heparin drip today for full anticoagulation for right IJ DVT. Discussed with Dr. Elana Moffett who is okay with proceeding with PEG tube placement however she is going to discuss this with the patient's family. ID has cleared patient for permacath placement. Needs LTAC placement for vent weaning. 09/29: Slightly tachypneic on CPAP, but appears comfortable. Get swallow eval. set up to chair today. Attempt TP. ID cleared for permacath 09/30: Right IJ PermaCath placed 09/29. Tolerating CPAP trail. 10/01: Stable hemodynamics, strong on CPAP/T-piece. 10/02: No acute events overnight. Tolerates TP, about 4 hours yesterday per RT. Dr. Moffett requests discontinuing NGT and supplementing with ensure. 10/03: Resting in bed on mechanical ventilation via tracheostomy. Awake and alert, not in any acute distress. 10/04: Awake and alert, on mechanical ventilation via tracheostomy. Daily C Pap and TPs trials. Tolerating by mouth. Objective Vital Signs Date Time Temp Pulse Resp B/P Pulse Ox O2 Delivery O2 Flow Rate FiO2 10/04/16 08:30 100 T-piece 8.00 40 10/04/16 06:00 102 10/04/16 04:00 98.6 19 107/57 Intake and Output 10/03/16 10/03/16 10/04/16 08:00 16:00 00:00 Intake Total 474 ml 782 ml 866 ml Output Total 150 ml 375 ml 550 ml Balance 324 ml 407 ml 316 ml Result Diagram: 10/04/16 0446 10/03/16 0347 Other Results Microbiology Date/Time Procedure Status Source Growth 10/02/16 23:20 Stool Occult Blood (JOSE) - Final Complete Stool Stool HEMOCCULT NEGATIVE Imaging Last Impressions Chest X-Ray 09/24/16 0600 Signed Impressions: Service Date/Time: Saturday, September 24, 2016 03:23 - CONCLUSION: Stable chest x-ray with underinflation and atelectasis at the bases and stable mild airspace opacity at the right base. Claude Carrasco MD Abdomen/Pelvis CT 09/23/16 0000 Signed Impressions: Service Date/Time: Friday, September 23, 2016 15:22 - CONCLUSION: 1. Reduction in size of the hypodense fluid collection in the hepatogastric space with no residual hypodensity seen.. Stable position to be indwelling drainage catheter. 2. Decreasing size lower lung infiltrates. 3. Interval removal of right lower quadrant drain and interval development of a small to moderate size amount of fluid in the cul-de-sac. Evelio Boyd MD Upper Extremity Ultrasound 09/17/16 0000 Signed Impressions: Service Date/Time: Saturday, September 17, 2016 16:48 - CONCLUSION: 1. Positive nonocclusive deep venous thrombosis right internal jugular vein. 2. Nonocclusive superficial thrombosis in the left cephalic vein. Miki Banerjee MD Lower Extremity Ultrasound 09/17/16 0000 Signed Impressions: Service Date/Time: Saturday, September 17, 2016 17:33 - CONCLUSION: Normal examination. Miki Banerjee MD Head CT 09/17/16 0000 Signed Impressions: Service Date/Time: Saturday, September 17, 2016 20:47 - CONCLUSION: 1. No acute intracranial abnormalities. Miki Banerjee MD Chest CT 09/17/16 0000 Signed Impressions: Service Date/Time: Saturday, September 17, 2016 20:46 - CONCLUSION: 1. Multifocal airspace consolidation in the lungs, right greater than left most characteristic of bronchopneumonia. There is underlying mild to moderate emphysema. Small effusions. Miki Banerjee MD Abscess Drainage CT 09/13/16 0000 Signed Impressions: Service Date/Time: Tuesday, September 13, 2016 14:30 - CONCLUSION: Uncomplicated CT guided drainage. Carlo Cortes MD Retroperitoneal Abscess Drainage 09/01/16 0600 Signed Impressions: Service Date/Time: Thursday, September 01, 2016 13:05 - CONCLUSION: Uncomplicated CT guided drainage of a right lower quadrant fluid collection. Approximately 75 cc of fecal-like brown material was aspirated. The air and fluid collection may communicate with the inferior aspect of the midline wound on the anterior abdominal wall. Claude Carrasco MD Abdomen X-Ray 08/24/16 0000 Signed Impressions: Service Date/Time: August 07:44 - CONCLUSION: Gaseous distention of multiple bowel loops possible ileus. Jony Miller MD Enema w/Water Soluble 08/23/16 0000 Signed Impressions: Service Date/Time: Tuesday, August 23, 2016 10:12 - CONCLUSION: Anastomosis appears patent without extravasation. Aditya Rocha MD FACR CT Angiography 08/21/16 0000 Signed Impressions: Service Date/Time: Sunday, August 21, 2016 14:05 - CONCLUSION: 1. There is no evidence for central pulmonary emboli. 2. Minimal subcutaneous air as well as free intraperitoneal air. Aditya Rocha MD FACR Objective Remarks GENERAL: 56-year-old male. Breathing comfortably SKIN: Warm. Dry. No rash HEAD: Atraumatic. Normocephalic. NECK: Tracheostomy in place. Site clean, dry. CARDIOVASCULAR: S1-S2 regular no gallop or murmur. No JVD. RESPIRATORY: Scattered rhonchi appreciated in all lung nesbitt, no wheezing. Good jorge air movement GASTROINTESTINAL: Abdomen non distended. Midline incision clean and intact. BS active. Ostomy viable. MUSCULOSKELETAL: Extremities with trace bilateral upper and lower extremity edema, well perfused, warm. NEUROLOGICAL: Awake and alert and interactive. Moves all 4 extremities spontaneously. Nods head to questions. No focal deficits Date of Insertion: Aug 31, 2016 Date of Removal: Sep 12, 2016 Side: Right A/P Assessment and Plan NEURO/PSYCH: History of anxiety Acute toxic metabolic encephalopathyresolving -Acetaminophen for fever -Haldol 1 mg every 4 hours when necessary -Ativan 0.5 mg every one hour when necessary agitation -Morphine sulfate 3 milligrams IV every 3 hours when necessary pain -Off sedative drips, follow neuro status. -Head CT 09/11 no acute intracranial findings -EEG 09/12 revealed mild to moderate encephalopathy. No epileptiform activity. -Currently on Cerebyx 300 mg liquid at night. Level 5.7 on 09/18, 3.5 on 09/26 RESP: Acute hypoxemic respiratory failure COPD exacerbation Probable healthcare associated pneumonia -Continue PRVC 22/600 0.75/5/40. Tolerating CPAP/ T piece trials. -Ventilator bundle -Albuterol nebs every 4 hours scheduled and when necessary duo nebs, Symbicort 2 puffs every 12 was discontinued while in ventilator. -Continue Pulmicort 0.5/2 twice a day -Dr. Renteria/Pulmonary following -s/p tracheostomy 09/18 CV: Hypotension secondary to septic shock resolved History of hypertension Off all vasopressors Currently on clonidine 0.1 3 times a day, Norvasc 10 mg daily and Coreg 3.125 twice a day. Labetalol prn GI/ Nutrition: Anastomotic leak status post exploratory laparotomy, I&D, loop ileostomy 08/24/16 s/p Laparoscopic robotic extensive ANNA MARIE, robotic LAR and small bowel resection Laparoscopic robotic ANNA MARIE, robotic LAR and small bowel resection with anastomotic leak History of diverticulitis -Status post exploratory laparotomy, I&D, loop ileostomy 08/24/16 -Postoperative management per Dr. Moffett. Broad-spectrum antibiotics as below. positive ostomy output -On Reglan to improve GI motility -Tolerating PO diet, NGT discontinued per Dr. Moffett, Ensure QID with meals -Protonix for GI prophylaxis -All drains have been removed. Wound VAC discontinued. -CT abdomen/pelvis 09/23 revealed decreased fluid in the hepatogastric region. Removal of interval drains. Small to moderate fluid in the cul-de-sac. Renal/: Acute kidney injury History BPH Status post bilateral ureteral stents placed by Dr. Fraser 08/18 -Monitor renal function closely. Mg catheter. -IV fluids discontinued in view of anuric renal failure and hyperkalemia necessitating hemodialysis. Nephrology following for HD ID cleared patient for permacath placement on 09/28. New right IJ hemodialysis catheter placed 09/01 -> D/C 09/13. New right femoral hemodialysis catheter placed 09/13 -> D/C 09/19 New LIJ vascath placed 09/18 -> D/C 09/25 New Left Subclavian vascath placed 09/26 -> d'/c New Right IJ Permacath 09/29 ID: Anastomotic leak Sepsis Probable HCAP Current regimen is Flagyl 500 mg IV every 6 hours, Diflucan 200 mg IV 24 hours and aztreonam 500 mg IV every 12 hours. Also tobramycin aerosols twice a day. Pertinent culture 09/20 - wound - Pseudomonas and Iram Alb and Paropsilosis 09/17 - sputum - Pseudomonas 09/17 - blood cultures 2- no growth 09/13 - bronchial -Pseudomonas 09.13 - abdomen abscess -Pseudomonas/yeast 09/01: Abdominal wound - Pseudomonas, enterococcus, Iram 08/31 - line culture Pseudomonas/coag negative staph 08/31 - blood cultures 2 -no growth 08/31 - sputum - pending 08/29 - wound - Pseudomonas, group D enterococcus, C. albicans and yeast 08/25 blood cultures - no growth 08/25 sputum - Serratia/Klebsiella/Pseudomonas 08/24 - wound - no growth HEME: Leukocytosis Normocytic anemia Thrombocytosis RIJ DVT (nonocclusive) Left cephalic superficial thrombus -Monitor CBC, CMP, coags -Full anticoagulation resumed for right IJ DVT on 09/28. Continue Coumadin, pharmacy to dose - Transfused 1 unit PRBCs on 10/01 ENDO: -Sliding-scale insulin with Accu-Cheks every 6 hours for glycemic control. Levemir 20 units twice a day currently on hold FEN: Hyperphosphatemia (resolved) Hyperkalemia (resolved) Continue PhosLo 1334 mg 3 times a day for hyperphosphatemia. Hemodialysis per renal. Received D50/insulin/bicarbonate/Kayexalate on 09/25 for hyperkalemia. PROPH: -Bilateral lower extremity SCDs. Heparin gtt for RIJ DVT resumed 09/28/16 (held for scheduled trach), started Coumadin today 10/02/16. Protonix for GI prophylaxis LINES: -Left subclavian central line placed in the OR 08/24 - 08/31. Right subclavian central line placed 08/31 - 09/11 - RIJ dialysis catheter 08/25 -08/31. New right IJ hemodialysis catheter 09/01 - - Right femoral hemodialysis catheter 09/13 - 09/19 New LIJ vascath placed 09/18 -> D/C 09/25 New Left Subclavian vascath placed 09/26 Dr. Quarles called Natalia (pt's family) on 09/26 and and got her voice mail. Left message to call back. Patient will need LTAC placement-case management consulted. Dr. Moffett also is okay with transferring to LTAC. Satya Quarles MD Oct 04, 2016 09:24
[2016-10-04 09:59] LABS: BICARBONATE 30.2 MEQ/L (21.0-32.0); POTASSIUM 3.4 MEQ/L (3.5-5.1)
[2016-10-04 11:24] LABS: APTT (PATIENT) 56.2 SEC (24.3-30.1)
--- NOTE | 2016-10-04 11:50 | HHI.NPPN ---
Subjective General Problems: Anemia, Edema Renal Failure: Acute Interval History He is awake. On oxygen via trach collar. Seen during dialysis. His urine output has increased. (Fransisca Canela) Review of Systems General Constitutional: Fever, Fatigue (Fransisca Canela) Musculoskeletal MS Remarks generalized pain (Fransisca Canela) Objective Data Data 10/03/16 10/04/16 19:00 07:00 Intake Total 782 ml 1189 ml Output Total 375 ml 700 ml Balance 407 ml 489 ml Intake Oral 460 ml 620 ml IV Total 322 ml 569 ml Output Urine Total 175 ml 450 ml Stool Total 200 ml 250 ml # Voids 2 Vital Signs Date Time Temp Pulse Resp B/P Pulse Ox O2 Delivery O2 Flow Rate FiO2 10/04/16 08:30 100 T-piece 8.00 40 10/04/16 08:30 99 35 10/04/16 08:30 40 10/04/16 08:00 97.9 107 34 147/74 100 10/04/16 08:00 35 10/04/16 06:00 102 10/04/16 04:08 100 35 10/04/16 04:00 98 10/04/16 04:00 35 10/04/16 04:00 98.6 98 19 107/57 100 10/04/16 02:00 96 10/04/16 01:10 100 35 10/04/16 00:00 99.6 114 33 120/62 100 10/04/16 00:00 35 10/03/16 22:00 118 10/03/16 21:21 97 35 10/03/16 21:00 147/79 10/03/16 20:00 124 10/03/16 20:00 100.9 124 24 100 10/03/16 20:00 35 10/03/16 18:00 109 10/03/16 16:50 100 35 10/03/16 16:00 123 10/03/16 16:00 98.8 120 24 148/77 98 10/03/16 16:00 35 10/03/16 14:00 117 10/03/16 12:00 98.9 118 31 148/89 100 10/03/16 12:00 35 10/03/16 12:00 121 (Fransisca Canela) -: 10/04/16 0446 10/04/16 0923 Imaging Last Impressions Chest X-Ray 10/03/16 0600 Signed Impressions: Service Date/Time: Monday, October 03, 2016 05:15 - CONCLUSION: Bibasilar densities. Jony Miller MD Abdomen/Pelvis CT 09/23/16 0000 Signed Impressions: Service Date/Time: Friday, September 23, 2016 15:22 - CONCLUSION: 1. Reduction in size of the hypodense fluid collection in the hepatogastric space with no residual hypodensity seen.. Stable position to be indwelling drainage catheter. 2. Decreasing size lower lung infiltrates. 3. Interval removal of right lower quadrant drain and interval development of a small to moderate size amount of fluid in the cul-de-sac. Evelio Boyd MD Upper Extremity Ultrasound 09/17/16 0000 Signed Impressions: Service Date/Time: Saturday, September 17, 2016 16:48 - CONCLUSION: 1. Positive nonocclusive deep venous thrombosis right internal jugular vein. 2. Nonocclusive superficial thrombosis in the left cephalic vein. Miki Banerjee MD Lower Extremity Ultrasound 09/17/16 0000 Signed Impressions: Service Date/Time: Saturday, September 17, 2016 17:33 - CONCLUSION: Normal examination. Miki Banerjee MD Head CT 09/17/16 0000 Signed Impressions: Service Date/Time: Saturday, September 17, 2016 20:47 - CONCLUSION: 1. No acute intracranial abnormalities. Miki Banerjee MD Chest CT 09/17/16 0000 Signed Impressions: Service Date/Time: Saturday, September 17, 2016 20:46 - CONCLUSION: 1. Multifocal airspace consolidation in the lungs, right greater than left most characteristic of bronchopneumonia. There is underlying mild to moderate emphysema. Small effusions. Miki Banerjee MD Abscess Drainage CT 09/13/16 0000 Signed Impressions: Service Date/Time: Tuesday, September 13, 2016 14:30 - CONCLUSION: Uncomplicated CT guided drainage. Carlo Cortes MD Retroperitoneal Abscess Drainage 09/01/16 0600 Signed Impressions: Service Date/Time: Thursday, September 01, 2016 13:05 - CONCLUSION: Uncomplicated CT guided drainage of a right lower quadrant fluid collection. Approximately 75 cc of fecal-like brown material was aspirated. The air and fluid collection may communicate with the inferior aspect of the midline wound on the anterior abdominal wall. Claude Carrasco MD Abdomen X-Ray 08/24/16 0000 Signed Impressions: Service Date/Time: August 07:44 - CONCLUSION: Gaseous distention of multiple bowel loops possible ileus. Jony Miller MD Enema w/Water Soluble 08/23/16 0000 Signed Impressions: Service Date/Time: Tuesday, August 23, 2016 10:12 - CONCLUSION: Anastomosis appears patent without extravasation. Aditya Rocha MD FACR CT Angiography 08/21/16 0000 Signed Impressions: Service Date/Time: Sunday, August 21, 2016 14:05 - CONCLUSION: 1. There is no evidence for central pulmonary emboli. 2. Minimal subcutaneous air as well as free intraperitoneal air. Aditya Rocha MD FACR Tubes & Lines: Perma-Cath Tubes & Lines Comment trach Drip Comment heparin (Fransisca Canela) Physical Exam General Appearance: Well Developed, Well Nourished, No Acute Distress Appearance Remarks awake on ventilator via trach, answers questions (Fransisca Canela [employer]) Throat Throat Exam: Oral Mucosa [place] & Moist (Fransisca Canela [employer]) Neck Neck Remarks trach (Fransisca Canela [employer]) Pulmonary Resp Exam: Breath Sounds Equal, No Distress, Crackles, Sputum, Diminished Breath Sounds Resp Remarks vented, increased secretions (Fransisca Canela [employer]) Cardiology CV Exam: Regular, Normal Sinus Rhythm, Good Perfusion, Tachycardia (Fransisca Canela [employer]) Gastrointestinal/Abdomen GI Exam: Distended GI Remarks colostomy with pink/red stoma stool in colostomy bag (Fransisca Canela [employer]) Musculoskeletal MS Exam: Joints Intact, Atrophy, Unable to Ambulate (Fransisca Canela [employer]) Integumentary Skin Exam: Warm, Dry Skin Remarks below umbilicus, midabdominal wound is healing, scabbed over (Fransisca Canela [employer]) Extremeties Extremities Exam: No Edema, Pedal Pulses Palpable (Fransisca Canela [employer]) Neurologic Neuro Exam: Alert, Awake, Oriented, Moving All Extremities (Fransisca Canela) VTE Prophylaxis Device: SCDs (Fransisca Canela) Assessment/Plan Discussed Condition With: Patient Assessment Summary: VIRIDIANA/Acute Renal Failure, Acute Tubular Necrosis, Hypertension Problem List: (1) Acute renal failure Plan: He has developed ATN due to sepsis. Dialysis initiated 3/3 MWF dialysis; seen during dialysis on a 2K, 400 BFR, minimal fluid removal (500 UF) New tunneled HD catheter placed with IR Sunday. it is functioning well he has began to make some urine, continue to monitor await renal recovery, may hold dialysis sunday depending on renal function Avoid nephrotoxic agents. off IVF continue PhosLo for hyperphosphatemia (2) Sepsis Plan: ID following. Now on Fluconazole PO, Flagyl, Aztreonam, and levaquin PO blood cultures are negative he is on droplet for pseudomonas in sputum continue PT/OT pending rehab placement (3) DVT (deep venous thrombosis) Plan: right IJ DVT, on Heparin since 09/28 being bridged to Coumadin (4) Anemia Plan: add epogen during dialysis check iron profile Hemoccult negative x 2 (Fransisca Canela) Plan Patient was seen and examined at dialysis. Minimal UF. ATN may be improving. ( Tito Kuo MD) Problem Qualifiers (1) Acute renal failure: Qualified Code: N17.0 - Acute renal failure with tubular necrosis Fransisca Canela Oct 04, 2016 11:50 Tito Kuo MD Oct 05, 2016 11:19
[2016-10-04] MEDS ORDERED: EPOETIN ALFA 10,000 UNITS/ML VIAL SQ ONE (12:00)
[2016-10-04] MEDS: HEPARIN SODIUM - IV 10,000 UNITS/10 ML VIAL PRN (12:03)
[2016-10-04] MEDS: GENTAMICIN SULFATE (DIALYSIS USE ONLY) 20 MG/2 ML VIAL IV PRN (12:03)
[2016-10-04] MEDS: PANTOPRAZOLE SODIUM 40 MG VIAL IVP SCH (15:42)
[2016-10-04] MEDS: AZTREONAM INJ 500 MG in SODIUM CHLORIDE 0.9% INJ 100 ML IV SCH ×2 (15:42→23:03)
[2016-10-04] MEDS: LEVOFLOXACIN 250 MG TAB PO SCH (15:43)
[2016-10-04] MEDS: WARFARIN SOD 3 MG TAB PO SCH (15:43)
[2016-10-04] MEDS ORDERED: WARFARIN SOD 1 MG TAB PO SCH (16:00)
--- NOTE | 2016-10-04 19:31 | HHI.PR ---
Subjective Remarks YOAA male with robotic surgery,COPD exac Underwent exp lap,I&d and loop iliostomy placement no fever on Heparin For rt IJ DVT tolerated, PO On Trach collar, at BS Objective Vital Signs Vital Signs Date Time Temp Pulse Resp B/P Pulse Ox O2 Delivery O2 Flow Rate FiO2 10/04/16 16:00 98.2 105 28 105/60 100 10/04/16 16:00 35 10/04/16 12:00 98.4 103 24 149/78 100 10/04/16 12:00 35 10/04/16 08:30 100 T-piece 8.00 40 10/04/16 08:30 99 35 10/04/16 08:30 40 10/04/16 08:00 97.9 107 34 147/74 100 10/04/16 08:00 35 10/04/16 06:00 102 10/04/16 04:08 100 35 10/04/16 04:00 98 10/04/16 04:00 35 10/04/16 04:00 98.6 98 19 107/57 100 10/04/16 02:00 96 10/04/16 01:10 100 35 10/04/16 00:00 99.6 114 33 120/62 100 10/04/16 00:00 35 10/03/16 22:00 118 10/03/16 21:21 97 35 10/03/16 21:00 147/79 10/03/16 20:00 124 10/03/16 20:00 100.9 124 24 100 10/03/16 20:00 35 I/O 10/03/16 10/03/16 10/03/16 10/04/16 10/04/16 10/04/16 07:00 15:00 23:00 07:00 15:00 23:00 Intake Total 474 ml 782 ml 866 ml 323 ml 757 ml Output Total 150 ml 375 ml 550 ml 150 ml 250 ml Balance 324 ml 407 ml 316 ml 173 ml 507 ml Intake Oral 120 ml 460 ml 500 ml 120 ml 480 ml IV Total 354 ml 322 ml 366 ml 203 ml 277 ml Output Urine Total 175 ml 450 ml 0 ml 200 ml Stool Total 150 ml 200 ml 100 ml 150 ml 50 ml # Voids 1 2 0 0 Result Diagram: 10/04/16 0446 10/04/16 0923 Objective Remarks GENERAL: WBWN obese male, on Vent , sedated SKIN: Warm and dry. HEAD: Normocephalic. EYES: No scleral icterus. No injection or drainage. NECK: Supple, trachea midline. No JVD or lymphadenopathy. CARDIOVASCULAR: Regular rate and rhythm without murmurs, gallops, or rubs. RESPIRATORY: Breath sounds equal bilaterally. No accessory muscle use. exp rhonchi GASTROINTESTINAL: Abdomen soft, non-tender, Abd distended MUSCULOSKELETAL: No cyanosis, or edema. BACK: Nontender without obvious deformity. No CVA tenderness. A/P Assessment and Plan Resp Failure, on vent COPD exac S/p robotic surgery Anxiety S/p Exp lap PLAN: Cont vent support, aerosol nebs Nebuliser rx qid and prn Abx per ID Monitor lytes Cont T-Piece Tolerates PO Robbie Renteria MD Oct 04, 2016 19:31
[2016-10-04] MEDS: PHENYTOIN SUSP 100 MG/4 ML CUP PO SCH (20:37)
[2016-10-04] MEDS: SODIUM CHLORIDE 0.9% FLUSH 10 ML FLUSH IVF PRN (20:38)
[2016-10-04] MEDS: diphenhydrAMINE HCL 50 MG/ML VIAL IV PRN (23:30)
[2016-10-05] VITALS (9 sets, daily range): BP systolic 135–161; BP diastolic 73–81; PULSE 72–114; RESP 26–30; TEMP 98.4–99.1; O2SAT 98–100
[2016-10-05] MEDS: LORazepam 2 MG/ML VIAL IV PUSH PRN ×5 (02:39→17:03)
[2016-10-05] MEDS: MORPHINE SULFATE 4 MG/ML INJ IV PRN ×5 (02:39→17:04)
[2016-10-05] MEDS: RESP: ALBUTEROL 2.5 MG/3 ML NEB (SCH) INH ×3 (03:32→16:00)
[2016-10-05 04:35] LABS: MEAN CELL VOLUME 87.7 FL (80.0-100.0); MEAN CORPUSCULAR HEMOGLOBIN 30.2 PG (27.0-34.0); MEAN CORPUSCULAR HGB CONC 34.5 % (32.0-36.0); PLATELET COUNT 317 TH/MM3 (150-450); RED CELL DISTRIBUTION WIDTH 17.5 % (11.6-17.2); REVIEW FLAG FINAL; WHITE BLOOD COUNT 9.2 TH/MM3 (4.0-11.0)
[2016-10-05 04:50] LABS: INTERNATIONAL NORMALIZED RATIO 1.4 RATIO; PROTHROMBIN TIME - PATIENT 15.4 SEC (9.8-11.6)
[2016-10-05 04:53] LABS: TRANSFERRIN IRON PROFILE 114 MG/DL (200-360)
[2016-10-05] MEDS: cloNIDine HCL 0.1 MG TAB PO SCH ×2 (05:05→13:36)
[2016-10-05] MEDS: ARTIFICIAL TEARS OPTH SOLN 15 ML BTL EACH EYE SCH ×2 (05:05→13:36)
[2016-10-05] MEDS: metroNIDAZOLE 500 MG TAB PO SCH ×2 (05:05→12:00)
[2016-10-05] MEDS: SODIUM CHLORIDE 0.9% FLUSH 5 ML FLUSH IVF SCH (08:13)
[2016-10-05] MEDS: RESP: BUDESONIDE 0.5 MG/2 ML NEB NEB SCH (08:18)
[2016-10-05] MEDS: CALCIUM ACETATE 667 MG CAP PO SCH ×2 (08:46→13:35)
[2016-10-05] MEDS: CHLORHEXIDINE 0.12% (ORAL KIT) 15 ML CUP MT SCH (08:46)
[2016-10-05] MEDS: LACTOBACILLUS ACIDOPHILUS TAB NG SCH ×2 (08:46→13:35)
[2016-10-05] MEDS: PANTOPRAZOLE SODIUM 40 MG VIAL IVP SCH (08:46)
[2016-10-05] MEDS: CARVEDILOL 3.125 MG TAB PO SCH (08:47)
[2016-10-05] MEDS: INSULIN NovoLIN REGULAR SUPPLEMENTAL SCALE SQ SCH (09:00)
[2016-10-05] MEDS: FLUCONAZOLE 200 MG TAB PO SCH (09:00)
[2016-10-05] MEDS: MUPIROCIN 2% OINT 1 APPLIC/GM SYR EACH NARE SCH (09:00)
--- NOTE | 2016-10-05 09:02 | HHI.CCPN ---
Subjective Remarks/Hospital Course 08/25: Patient is a 58-year-old male with past medical history significant COPD who, on 08/18/16, underwent Laparoscopic robotic extensive lysis of adhesions, low anterior resection and small bowel resection. Apparently he was brought in by Dr. Moffett for Diverticulitis. Patient has a history of hypertension, COPD, and continues to smoke one pack of cigarettes a day. Postoperatively patient became progressively short of breath. Pulmonary was consulted on 08/21/16 as the patient was becoming more hypoxemic requiring BiPAP. CT of the chest PE protocol did not show any pulmonary embolism. Patient was placed on breathing treatments and IV Solu-Medrol 40 mg every [address] Renteria. Today a.m. patient was on 100% nonrebreather. Patient was diagnosed with an anastomotic leak today and was taken back to the OR by Dr. Moffett. He underwent exploratory laparotomy, I&D and loop ileostomy today. Postop patient remained hypoxemic requiring 70% oxygen, and hence was left intubated and critical care medicine was consulted. Dr. Arce evaluated the patient in ICU. He remained hypoxemic, FiO2 70%. Chest x-ray shows bibasilar mild infiltrates. On sedation lightening patient became very hypertensive, not following commands probably secondary to residual NM blockade received while being transported to ICU. Patient on receiving vancomycin Levaquin and Flagyl per Dr. Moffett. Dr. Arce added cefepime to cover for Pseudomonas. Holding Solu-Medrol due to anastomotic leak. 08/26: Remains sedated, orally intubated on mechanical ventilation. Went into anuric renal failure yesterday which did not respond to fluid boluses and diuretics hence was started on hemodialysis after placement of right IJ Vas- Cath. Currently sedated, arousable, remains orally intubated on mechanical ventilation. Blood pressure borderline last evening following dialysis for which she was started on low-dose vasopressin 0.03 units per minute and Levophed which is currently at 1 jose per minute. Started on TPN last night following which he has been hyperglycemic. 08/27: Sedated, arousable, orally intubated on mechanical ventilation. Spiking fevers overnight. Off Levophed, transiently off vasopressin. Remains on TPN. 08/28: Remains sedated, arousable, orally intubated on mechanical ventilation. On low-dose vasopressin. TPN continues. Made about 500 cc of urine in the last 24 hours. 08/29: In sedated, arousable, orally intubated on mechanical ventilation. Remains on TPN. Dirty drainage from left-sided SERGEI drain noted overnight. Dr. Moffett obtaining CT abdomen pelvis with oral contrast and ID consulted. 08/30: CURRENT TEMPERATURE 99. Status post 4 L hemodialysis today. No current change in therapy. White blood cell count remained stable. Off vasopressors. Arousable to voice. Versed has been discontinued. We'll attempt CPAP trials again today. 08/31: MAXIMUM TEMPERATURE 100.4. Currently 100.1. Currently resting in bed in no acute distress. Continues with scant drainage from bilateral JPs. We'll attempt CPAP trial again today. Positive stool from ostomy bag 09/01: Tmax 99.8. Currently 99.3. Placement of the new right IJ vas catheter today. Plan for IR to possibly drain right lower quadrant fluid collection. Arousable and moves all 4 extremity spontaneously. 09/02: Currently afebrile. Noted placement of iron drain with accordion drain. Growing Pseudomonas. Lasted only 2 hours on CPAP trials today. 09/03: Tolerated SBT for only 30 mins and required PS 20. Not ready to extubate. 09/04: Tachypnea related to anxiety? or metabolic acidosis. Will check VBG. Not tolerating SBT. Anemia. Transfuse during HD. 09/05: Remains very tachypneic on SBTs. Unable to extubate. 09/06: Leukocytosis and bandemia. Acts like ongoing sepsis. 09/07: No significant changes. Afebrile. Tolerating TFs as recommended by CRS. Will transition from TPN to enteral feeds now. 09/08: Bandemia persists. Tolerating full TFs. D/c'd TPN. Glucose control acceptable. 09/09: Tolerating longer CPAP/PS trials. 09/10: Stronger respiratory effort. Try to extubate today. 09/11: Stable hemodynamics, marginal respiratory function. 09/11 update 1800 hrs: Patient developed sudden hyperventilation to 55-60/min, hypertensive urgency to 220/120s, unresponsive state, started versed 10 mg/hr after 10 mg iv. Load with cerebyx, get head CT, EEG in a.m. 09/12: BP and pulse rate control improved with sedation. Etiology unclear. Suspected intracranial process but CT head normal. Possibly seizures. EEG pending this morning. WBC with bandemia persists. 09/13: CURRENT TEMPERATURE 99. Heart rate and blood pressure control. Noted T changes last night noted a potassium 8.2. Noted hemodialysis catheter placed by overnight disability benefits specialist in right femoral vein and hemodialysis currently undergoing. Plan for drainage of epigastric fluid collection by IR today. 09/14: Currently afebrile. Status post prior drainage of epigastric fluid area. Currently 60 ccwhite pus accordian drain. Status post bronchoscopy yesterday. 09/15 - intubation day #22. Family waiting another 24 hours to consider tracheostomy. He is not able to be extubated. Currently undergoing hemodialysis. Likely dialysis dependent. 09/16: Tmax 100.2. Blood pressure slowly trending downward. He transfuse PRBCs and albumin bolus prior to hemodialysis today. Intubation day #23. Family currently agreeable to tracheostomy but I'm unable to perform until Sunday. Positive BM. 09/17: Tmax 101. Intubation day #24. Tolerating tube feeding. Currently on Versed and fentanyl drips. 09/18: Remains sedated, orally intubated on mechanical ventilation. Scheduled for percutaneous tracheostomy today. Was dialyzed yesterday. Percutaneous drains [address] Ileostomy with good output. Wound VAC in place over anterior abdominal incision site. 09/19: Remains sedated, on mechanical ventilation via tracheostomy. Patient was noted to have some blood oozing from around tracheostomy site this morning as well as around Vas-Cath. Pressure dressing to be applied around Vas-Cath and packing around tracheostomy site and Dr. Howard informed. 09/20: Remains on fentanyl. On mechanical ventilation via tracheostomy. Continues to have fevers. No further bleeding from tracheostomy site or Vas- Cath site. 09/21: Remains on mechanical ventilation via tracheostomy. Resuming subcutaneous heparin today. No further bleeding from Vas-Cath or tracheostomy site. 09/22: Remains on mechanical ventilation, daily C Pap trials. Awake and alert this morning, following commands. 09/23: Tmax 100.2. Currently afebrile. Some oozing from hemodialysis catheter/ left IJ today. Plan for -2 L. Currently on mechanical ventilation while on hemodialysis. Awake and alert and following commands. 09/24: MAXIMUM TEMPERATURE 100.4. Currently afebrile. Noted hyperkalemia this am. Protocol initiated. Will recheck potassium in 3 hours. Awake and alert and following commands. 09/25: Tmax 101.1. Positive BM overnight likely secondary to Kayexalate provided for hyperkalemia. Received hemodialysis and likely will need to receive again today due to hypercatabolic state. Arousable on the ventilator and follows commands. 09/26: Awake and alert, following commands. Remains on mechanical ventilation via tracheostomy. Wound VAC in place over anterior abdominal wall incision site. Ileostomy functional. Tolerating tube feeds. 09/27: Remains awake and alert, following commands. On mechanical ventilation via tracheostomy. Daily C Pap trials. Tolerating tube feeds. Ileostomy functional. Patient will require PEG tube when okay with colorectal surgery. Wound VAC remains in place over the lower part of surgical incision site over anterior abdominal wall. Subjective 09/28: Awake and alert. On mechanical ventilation via tracheostomy. Started on heparin drip today for full anticoagulation for right IJ DVT. Discussed with Dr. Elana Moffett who is okay with proceeding with PEG tube placement however she is going to discuss this with the patient's family. ID has cleared patient for permacath placement. Needs LTAC placement for vent weaning. 09/29: Slightly tachypneic on CPAP, but appears comfortable. Get swallow eval. set up to chair today. Attempt TP. ID cleared for permacath 09/30: Right IJ PermaCath placed 09/29. Tolerating CPAP trail. 10/01: Stable hemodynamics, strong on CPAP/T-piece. 10/02: No acute events overnight. Tolerates TP, about 4 hours yesterday per RT. Dr. Moffett requests discontinuing NGT and supplementing with ensure. 10/03: Resting in bed on mechanical ventilation via tracheostomy. Awake and alert, not in any acute distress. 10/04: Awake and alert, on mechanical ventilation via tracheostomy. Daily C Pap and TPs trials. Tolerating by mouth. 10/05: Awake and alert, following commands. Has been on T piece overnight. Tolerating by mouth diet Objective Vital Signs Date Time Temp Pulse Resp B/P Pulse Ox O2 Delivery O2 Flow Rate FiO2 10/05/16 08:26 99 T-piece 28 10/05/16 06:09 28 10/05/16 06:00 111 10/05/16 04:00 99.1 161/73 10/04/16 08:30 8.00 Intake and Output 10/04/16 10/04/16 10/05/16 08:00 16:00 00:00 Intake Total 323 ml 757 ml 319 ml Output Total 150 ml 250 ml 400 ml Balance 173 ml 507 ml -81 ml Result Diagram: 10/05/16 0309 10/04/16 0923 Other Results Microbiology Date/Time Procedure Status Source Growth 10/02/16 23:20 Stool Occult Blood (JOSE) - Final Complete Stool Stool HEMOCCULT NEGATIVE Imaging Last Impressions Chest X-Ray 09/24/16 0600 Signed Impressions: Service Date/Time: Saturday, September 24, 2016 03:23 - CONCLUSION: Stable chest x-ray with underinflation and atelectasis at the bases and stable mild airspace opacity at the right base. Claude Carrasco MD Abdomen/Pelvis CT 09/23/16 0000 Signed Impressions: Service Date/Time: Friday, September 23, 2016 15:22 - CONCLUSION: 1. Reduction in size of the hypodense fluid collection in the hepatogastric space with no residual hypodensity seen.. Stable position to be indwelling drainage catheter. 2. Decreasing size lower lung infiltrates. 3. Interval removal of right lower quadrant drain and interval development of a small to moderate size amount of fluid in the cul-de-sac. Evelio Boyd MD Upper Extremity Ultrasound 09/17/16 0000 Signed Impressions: Service Date/Time: Saturday, September 17, 2016 16:48 - CONCLUSION: 1. Positive nonocclusive deep venous thrombosis right internal jugular vein. 2. Nonocclusive superficial thrombosis in the left cephalic vein. Miki Banerjee MD Lower Extremity Ultrasound 09/17/16 0000 Signed Impressions: Service Date/Time: Saturday, September 17, 2016 17:33 - CONCLUSION: Normal examination. Miki Banerjee MD Head CT 09/17/16 0000 Signed Impressions: Service Date/Time: Saturday, September 17, 2016 20:47 - CONCLUSION: 1. No acute intracranial abnormalities. Miki Banerjee MD Chest CT 09/17/16 0000 Signed Impressions: Service Date/Time: Saturday, September 17, 2016 20:46 - CONCLUSION: 1. Multifocal airspace consolidation in the lungs, right greater than left most characteristic of bronchopneumonia. There is underlying mild to moderate emphysema. Small effusions. Miki Banerjee MD Abscess Drainage CT 09/13/16 0000 Signed Impressions: Service Date/Time: Tuesday, September 13, 2016 14:30 - CONCLUSION: Uncomplicated CT guided drainage. Carlo Cortes MD Retroperitoneal Abscess Drainage 09/01/16 0600 Signed Impressions: Service Date/Time: Thursday, September 01, 2016 13:05 - CONCLUSION: Uncomplicated CT guided drainage of a right lower quadrant fluid collection. Approximately 75 cc of fecal-like brown material was aspirated. The air and fluid collection may communicate with the inferior aspect of the midline wound on the anterior abdominal wall. Claude Carrasco MD Abdomen X-Ray 08/24/16 0000 Signed Impressions: Service Date/Time: August 07:44 - CONCLUSION: Gaseous distention of multiple bowel loops possible ileus. Jony Miller MD Enema w/Water Soluble 08/23/16 0000 Signed Impressions: Service Date/Time: Tuesday, August 23, 2016 10:12 - CONCLUSION: Anastomosis appears patent without extravasation. Aditya Rocha MD FACR CT Angiography 08/21/16 0000 Signed Impressions: Service Date/Time: Sunday, August 21, 2016 14:05 - CONCLUSION: 1. There is no evidence for central pulmonary emboli. 2. Minimal subcutaneous air as well as free intraperitoneal air. Aditya Rocha MD FACR Objective Remarks GENERAL: 56-year-old male. Breathing comfortably SKIN: Warm. Dry. No rash HEAD: Atraumatic. Normocephalic. NECK: Tracheostomy in place. Site clean, dry. CARDIOVASCULAR: S1-S2 regular no gallop or murmur. No JVD. RESPIRATORY: Scattered rhonchi appreciated in all lung nesbitt, no wheezing. Good jorge air movement GASTROINTESTINAL: Abdomen non distended. Midline incision clean and intact. BS active. Ostomy viable. MUSCULOSKELETAL: Extremities with trace bilateral upper and lower extremity edema, well perfused, warm. NEUROLOGICAL: Awake and alert and interactive. Moves all 4 extremities spontaneously. Nods head to questions. No focal deficits Date of Insertion: Aug 31, 2016 Date of Removal: Sep 12, 2016 Side: Right A/P Assessment and Plan NEURO/PSYCH: History of anxiety Acute toxic metabolic encephalopathyresolving -Acetaminophen for fever -Haldol 1 mg every 4 hours when necessary -Ativan 0.5 mg every one hour when necessary agitation -Morphine sulfate 3 milligrams IV every 3 hours when necessary pain -Off sedative drips, follow neuro status. -Head CT 09/11 no acute intracranial findings -EEG 09/12 revealed mild to moderate encephalopathy. No epileptiform activity. -Currently on Cerebyx 300 mg liquid at night. Level 5.7 on 09/18, 3.5 on 09/26 RESP: Acute hypoxemic respiratory failure COPD exacerbation Probable healthcare associated pneumonia -Tolerating CPAP/ T piece trials. On T piece overnight -Ventilator bundle -Albuterol nebs every 4 hours scheduled and when necessary duo nebs, Symbicort 2 puffs every 12 was discontinued while in ventilator. -Continue Pulmicort 0.5/2 twice a day -Dr. Renteria/Pulmonary following -s/p tracheostomy 09/18 CV: Hypotension secondary to septic shock resolved History of hypertension Off all vasopressors Currently on clonidine 0.1 3 times a day, Norvasc 10 mg daily and Coreg 3.125 twice a day. Labetalol prn GI/ Nutrition: Anastomotic leak status post exploratory laparotomy, I&D, loop ileostomy 08/24/16 s/p Laparoscopic robotic extensive ANNA MARIE, robotic LAR and small bowel resection Laparoscopic robotic ANNA MARIE, robotic LAR and small bowel resection with anastomotic leak History of diverticulitis -Status post exploratory laparotomy, I&D, loop ileostomy 08/24/16 -Postoperative management per Dr. Moffett. Broad-spectrum antibiotics as below. positive ostomy output -On Reglan to improve GI motility -Tolerating PO diet, NGT discontinued per Dr. Moffett, Ensure QID with meals -Protonix for GI prophylaxis -All drains have been removed. Wound VAC discontinued. -CT abdomen/pelvis 09/23 revealed decreased fluid in the hepatogastric region. Removal of interval drains. Small to moderate fluid in the cul-de-sac. Renal/: Acute kidney injury History BPH Status post bilateral ureteral stents placed by Dr. Fraser 08/18 -Monitor renal function closely. Mg catheter. -IV fluids discontinued in view of anuric renal failure and hyperkalemia necessitating hemodialysis. Nephrology following for HD ID cleared patient for permacath placement on 09/28. New right IJ hemodialysis catheter placed 09/01 -> D/C 09/13. New right femoral hemodialysis catheter placed 09/13 -> D/C 09/19 New LIJ vascath placed 09/18 -> D/C 09/25 New Left Subclavian vascath placed 09/26 -> d'/c New Right IJ Permacath 09/29 ID: Anastomotic leak Sepsis Probable HCAP Current regimen is Flagyl 500 mg PO every 6 hours, Levaquin/fluconazole PO and aztreonam 500 mg IV. Off tobramycin nebs. Pertinent cultures 09/20 - wound - Pseudomonas and Iram Alb and Paropsilosis 09/17 - sputum - Pseudomonas 09/17 - blood cultures 2- no growth 09/13 - bronchial -Pseudomonas 09.13 - abdomen abscess -Pseudomonas/yeast 09/01: Abdominal wound - Pseudomonas, enterococcus, Iram 08/31 - line culture Pseudomonas/coag negative staph 08/31 - blood cultures 2 -no growth 08/31 - sputum - pending 08/29 - wound - Pseudomonas, group D enterococcus, C. albicans and yeast 08/25 blood cultures - no growth 08/25 sputum - Serratia/Klebsiella/Pseudomonas 08/24 - wound - no growth HEME: Leukocytosis Normocytic anemia Thrombocytosis RIJ DVT (nonocclusive) Left cephalic superficial thrombus -Monitor CBC, CMP, coags -Full anticoagulation resumed for right IJ DVT on 09/28. Continue Coumadin, pharmacy to dose - Transfused 1 unit PRBCs on 10/01 ENDO: -Sliding-scale insulin with Accu-Cheks every 6 hours for glycemic control. Levemir 20 units twice a day currently on hold FEN: Hyperphosphatemia (resolved) Hyperkalemia (resolved) Continue PhosLo 1334 mg 3 times a day for hyperphosphatemia. Hemodialysis per renal. PROPH: -Bilateral lower extremity SCDs. Heparin gtt for RIJ DVT resumed 09/28/16, started Coumadin 10/02/16. We will discontinue heparin prior to transfer to LTAC. Protonix for GI prophylaxis LINES: -Left subclavian central line placed in the OR 08/24 - 08/31. Right subclavian central line placed 08/31 - 09/11 - RIJ dialysis catheter 08/25 -08/31. New right IJ hemodialysis catheter 09/01 - - Right femoral hemodialysis catheter 09/13 - 09/19 New LIJ vascath placed 09/18 -> D/C 09/25 New Left Subclavian vascath placed 09/26 -> D/C 09/29 RIJ Permacath 09/29 (by IR) Dr. Quarles called Natalia (pt's family) on 09/26 and and got her voice mail. Left message to call back. Patient will need LTAC placement-case management consulted. Dr. Moffett also is okay with transferring to LTAC. I did a peer to peer discussion with [employer] physician on 10/04 and per our discussion anticipate transferring to LTAC. Will consult hospitalist service to assist with medical management starting 10/06 , critical care will be signing off. Please reconsult if needed. Satya Quarles MD Oct 05, 2016 09:01
[2016-10-05] MEDS: HEPARIN-D5W INJ 250 ML IV SCH (09:19)
[2016-10-05 11:38] LABS: BICARBONATE 31.5 MEQ/L (21.0-32.0); POTASSIUM 3.5 MEQ/L (3.5-5.1)
[2016-10-05] MEDS: AZTREONAM INJ 500 MG in SODIUM CHLORIDE 0.9% INJ 100 ML IV SCH (12:00)
--- NOTE | 2016-10-05 12:12 | HHI.NPPN ---
Subjective General Problems: Anemia, Edema Renal Failure: Acute Interval History He is awake. Tachycardia persists, appears dry. Had dialysis yesterday. Urine output has improved. (Fransisca Canela) Review of Systems General Constitutional: Fever, Fatigue (Fransisca Canela) Musculoskeletal MS Remarks generalized pain (Fransisca Canela) Objective Data Data 10/04/16 10/05/16 18:59 06:59 Intake Total 757 ml 651 ml Output Total 250 ml 700 ml Balance 507 ml -49 ml Intake Oral 480 ml 140 ml IV Total 277 ml 511 ml Output Urine Total 200 ml 500 ml Stool Total 50 ml 200 ml # Voids 0 1 Vital Signs Date Time Temp Pulse Resp B/P Pulse Ox O2 Delivery O2 Flow Rate FiO2 10/05/16 08:26 99 T-piece 28 10/05/16 06:09 28 10/05/16 06:00 111 10/05/16 04:00 98 T-Piece 28 Humidified 10/05/16 04:00 99.1 112 30 161/73 98 10/05/16 04:00 102 10/05/16 03:36 98 T-piece 28 10/05/16 00:00 98.6 114 28 150/78 100 10/05/16 00:00 100 T-Piece 40 Humidified 10/05/16 00:00 114 10/04/16 22:00 108 10/04/16 20:16 98 T-piece 48 10/04/16 20:00 99.0 120 30 149/84 100 10/04/16 20:00 120 10/04/16 16:00 98.2 105 28 105/60 100 10/04/16 16:00 35 (Fransisca Canela) -: 10/05/16 0309 10/05/16 1037 Imaging Last Impressions Chest X-Ray 10/03/16 0600 Signed Impressions: Service Date/Time: Monday, October 03, 2016 05:15 - CONCLUSION: Bibasilar densities. Jony Miller MD Abdomen/Pelvis CT 09/23/16 0000 Signed Impressions: Service Date/Time: Friday, September 23, 2016 15:22 - CONCLUSION: 1. Reduction in size of the hypodense fluid collection in the hepatogastric space with no residual hypodensity seen.. Stable position to be indwelling drainage catheter. 2. Decreasing size lower lung infiltrates. 3. Interval removal of right lower quadrant drain and interval development of a small to moderate size amount of fluid in the cul-de-sac. Evelio Boyd MD Upper Extremity Ultrasound 09/17/16 0000 Signed Impressions: Service Date/Time: Saturday, September 17, 2016 16:48 - CONCLUSION: 1. Positive nonocclusive deep venous thrombosis right internal jugular vein. 2. Nonocclusive superficial thrombosis in the left cephalic vein. Miki Banerjee MD Lower Extremity Ultrasound 09/17/16 0000 Signed Impressions: Service Date/Time: Saturday, September 17, 2016 17:33 - CONCLUSION: Normal examination. Miki Banerjee MD Head CT 09/17/16 0000 Signed Impressions: Service Date/Time: Saturday, September 17, 2016 20:47 - CONCLUSION: 1. No acute intracranial abnormalities. Miki Banerjee MD Chest CT 09/17/16 0000 Signed Impressions: Service Date/Time: Saturday, September 17, 2016 20:46 - CONCLUSION: 1. Multifocal airspace consolidation in the lungs, right greater than left most characteristic of bronchopneumonia. There is underlying mild to moderate emphysema. Small effusions. Miki Banerjee MD Abscess Drainage CT 09/13/16 0000 Signed Impressions: Service Date/Time: Tuesday, September 13, 2016 14:30 - CONCLUSION: Uncomplicated CT guided drainage. Carlo Cortes MD Retroperitoneal Abscess Drainage 09/01/16 0600 Signed Impressions: Service Date/Time: Thursday, September 01, 2016 13:05 - CONCLUSION: Uncomplicated CT guided drainage of a right lower quadrant fluid collection. Approximately 75 cc of fecal-like brown material was aspirated. The air and fluid collection may communicate with the inferior aspect of the midline wound on the anterior abdominal wall. Claude Carrasco MD Abdomen X-Ray 08/24/16 0000 Signed Impressions: Service Date/Time: August 07:44 - CONCLUSION: Gaseous distention of multiple bowel loops possible ileus. Jony Miller MD Enema w/Water Soluble 08/23/16 0000 Signed Impressions: Service Date/Time: Tuesday, August 23, 2016 10:12 - CONCLUSION: Anastomosis appears patent without extravasation. Aditya Rocha MD FACR CT Angiography 08/21/16 0000 Signed Impressions: Service Date/Time: Sunday, August 21, 2016 14:05 - CONCLUSION: 1. There is no evidence for central pulmonary emboli. 2. Minimal subcutaneous air as well as free intraperitoneal air. Aditya Rocha MD FACR Tubes & Lines: Perma-Cath Tubes & Lines Comment trach Drip Comment heparin (Fransisca Canela COLLET DRILLER) Physical Exam General Appearance: Well Developed, Well Nourished, No Acute Distress Appearance Remarks awake on ventilator via trach, answers questions (Fransisca Canela B. COLLET DRILLER) Throat Throat Exam: Oral Mucosa [place] & Moist (Fransisca Canela B. COLLET DRILLER) Neck Neck Remarks trach (Fransisca Canela B. COLLET DRILLER) Pulmonary Resp Exam: Breath Sounds Equal, No Distress, Crackles, Sputum, Diminished Breath Sounds Resp Remarks vented, increased secretions (Fransisca Canela B. COLLET DRILLER) Cardiology CV Exam: Regular, Normal Sinus Rhythm, Good Perfusion, Tachycardia (Fransisca Canela B. COLLET DRILLER) Gastrointestinal/Abdomen GI Exam: Distended GI Remarks colostomy with pink/red stoma stool in colostomy bag (Fransisca Canela B. COLLET DRILLER) Musculoskeletal MS Exam: Joints Intact, Atrophy, Unable to Ambulate (Fransisca Canela B. COLLET DRILLER) Integumentary Skin Exam: Warm, Dry Skin Remarks below umbilicus, midabdominal wound is healing, scabbed over (Fransisca Canela B. COLLET DRILLER) Extremeties Extremities Exam: No Edema, Pedal Pulses Palpable (Fransisca Canela B. COLLET DRILLER) Neurologic Neuro Exam: Alert, Awake, Oriented, Moving All Extremities (Fransisca Canela B. COLLET DRILLER) VTE Prophylaxis Device: SCDs (Fransisca Canela B. COLLET DRILLER) Assessment/Plan Discussed Condition With: Patient Assessment Summary: VIRIDIANA/Acute Renal Failure, Acute Tubular Necrosis, Hypertension Problem List: (1) Acute renal failure Plan: He has developed ATN due to sepsis. Dialysis initiated 3/3 MWF dialysis; 500 UF yesterday New tunneled HD catheter placed last week, functions well. non oliguric await renal recovery, may hold dialysis tomorrow depending on renal function Avoid nephrotoxic agents. I will give 250 ml IVF today, he appears volume depleted continue PhosLo for hyperphosphatemia (2) Sepsis Plan: ID following. On Fluconazole PO, Flagyl, Aztreonam, and levaquin PO blood cultures are negative he is on droplet for pseudomonas in sputum continue PT/OT pending rehab placement (3) DVT (deep venous thrombosis) Plan: right IJ DVT, on Heparin since 09/28 being bridged to Coumadin (4) Anemia Plan: Hemoccult negative x 2 transfuse PRN (Fransisca Canela) Plan patient was seen and examined. His urine output is improving. Appears dry clinically. Trial of IVF. Dialysis only if needed tomorrow. Repeat labs. ( Tito Kuo MD) Problem Qualifiers (1) Acute renal failure: Qualified Code: N17.0 - Acute renal failure with tubular necrosis Fransisca Canela Oct 05, 2016 12:12 Tito Kuo MD Oct 05, 2016 16:34
[2016-10-05] MEDS ORDERED: SODIUM CHLOR 0.9% 1000 ML INJ 250 ML IV SCH (12:15)
[2016-10-05] MEDS: WARFARIN SOD 3 MG TAB PO SCH (15:57)
[2016-10-05] MEDS ORDERED: WARFARIN SOD 1 MG TAB PO SCH (16:00)
--- NOTE | 2016-10-10 11:39 | RADRPT ---
EXAM DATE/TIME: 09/29/2016 00:00 [facility] COMPARISON: No previous studies available for comparison. INDICATIONS : Temporary catheter is non-fuctioning in need of jail catheter placement. MEDICAL HISTORY : COPD HTN Diabetes Dyslipidemia Dialysis Kidney failure Asthma History of DVT Diverticulitis BPH SURGICAL HISTORY : Laparoscopic robotic extensice lysis of adhesion, lower anterior resection and small bowel resection. Exploratory laparotomy, I&D and loop ileostomy Tracheostomy tube placement Tonsillectomy ENCOUNTER: Initial ACUITY: 2 months PAIN SCORE: Nonresponsive. IMAGE SERIES: 0 PROCEDURE : 1. Temporary central venous catheter removal. The prescribed catheter was removed intact and hemostasis was achieved with direct pressure. The sit e was dressed appropriately. The patient tolerated the procedure well. CONCLUSION: Uncomplicated catheter removal. Juwan Guzman MD on October 10, 2016 at 11:37 Board Certified Radiologist. This report was verified electronically.
--- NOTE | 2016-10-10 11:40 | RADRPT ---
EXAM DATE/TIME: 09/29/2016 09:28 [facility] COMPARISON: No previous studies available for comparison. INDICATIONS : Patient with renal failure in need of half-way dialysis catheter placement. MEDICAL HISTORY : COPD HTN Diabetes Dyslipidemia Dialysis Kidney failure Asthma History of DVT Diverticulitis BPH SURGICAL HISTORY : Laparoscopic robotic extensice lysis of adhesion, lower anterior resection and small bowel resection. Exploratory laparotomy, I&D and loop ileostomy Tracheostomy tube placement Tonsillectomy ENCOUNTER: Initial ACUITY: 2 months PAIN SCORE: Nonresponsive. FLUORO TIME: 1.0 minutes IMAGE SERIES: 0 SEDATION TIME: 30 minutes ACCESS: Right subclavian vein SEDATION: 1.) 2 mg midazolam (Versed) IV 2.) 100 mcg fentanyl (Sublimaze) IV Prophylactic antibiotics were administered with appropriate pre-procedure timing. Vancomycin within 2 hours of procedure, Ancef (or alternative) within 1 hour of procedure. DEVICE: 1. 15 Hebrew dual lumen 27 cm Sauceda II Plus catheter PROCEDURE : 1. Ultrasound-guided venipuncture. 2. PermaCath placement. 3. Conscious sedation with continuous EKG and oximetry monitoring. The risks, benefits and alternatives to the procedure were explained and verbal and written consent w as obtained. The site was prepped in sterile fashion. Full sterile technique was used, including ca p, mask, sterile gloves and gown and a large sterile sheet. Hand hygiene and 2% chlorhexidine and/or betadine/alcohol prep was utilized per protocol for cutaneous antisepsis. The skin and subcutaneous tissues were infiltrated with local anesthetic solution. With ultrasound and fluoroscopic guidance a dermatotomy was created over the prescribed vein. A micr opuncture set was used to access the targeted vein and serial dilatation was performed to accept the prescribed length catheter. A subcutaneous tunnel was created in a retrograde fashion the catheter w as pulled through the tunnel. The catheter was flushed and assembled and locked with heparin. The c atheter was sutured in place. Conscious sedation was performed with the prescribed dosages and duration as above in the presence of an independent trained radiology nurse to assist in the monitoring of the patient. EKG and oximetry remained stable throughout the procedure. The patient tolerated the procedure well and there were n o complications. The patient was sent to post anesthesia recovery in stable condition. CONCLUSION: Uncomplicated PermaCath placement as above. Juwan Guzman MD on October 10, 2016 at 11:37 Board Certified Radiologist. This report was verified electronically.
--- NOTE | 2016-12-06 11:27 | MD ---
cc: ALLEN CUEVA M.D. ADMISSION DATE: 08/18/2016 DISCHARGE DATE: 10/05/2016 ADMISSION DIAGNOSIS 1. Chronic diverticulitis. 2. Hypertension. 3. COPD. 4. Chronic renal insufficiency stage III. DISCHARGE DIAGNOSIS 1. Chronic diverticulitis. 2. Hypertension. 3. COPD. 4. Chronic renal insufficiency stage III. PROCEDURES PERFORMED 1. , cystoscopy with placement of bilateral ureteral catheters. 2. Laparoscopic/robotic extensive lysis of adhesions. 3. Robotic low anterior resection. 4. Robotic-assisted small bowel resection. 5. 08/24/2016, exploratory laparotomy with irrigation and diverting loop ileostomy. CONSULTATIONS Dr. Renteria for pulmonology. Dr. Arce for critical care. Dr. Maya for nephrology. Dr. Apodaca for infectious disease. HOSPITAL COURSE The patient is a 56-year-old male who has had multiple attacks of severe diverticulitis over several years with at least two micro perforations with abscess. He eventually elected to come in for resection and underwent an initial robotic resection. Intraoperative findings at his initial surgery were severe adhesions and very significant ongoing chronic inflammation necessitating both a sigmoid resection as well as a small bowel resection. Postoperatively he did well for the first two or three days, then began having problems with respiratory distress. Gastrografin was obtained which showed no sign of anastomotic leak at that point but as his respiratory distress continued CT scan was then performed on postoperative day #6 which did reveal evidence of a leak at the anastomosis. He was taken back to the operating room urgently where he was found to have a tiny pinpoint opening just at the anterior anastomosis in the pelvis. There was not a huge amount of stool in the belly but lots of inflammatory peel throughout the belly. He was washed out and proximal diverting loop ileostomy was performed. Postoperative from his second surgery he had a very labile course with severe multiorgan failure including respiratory failure, kidney failure and fairly moderate liver dysfunction. Eventually, however, he gradually improved and both his respiratory failure and his kidney failure reversed and on October 05, 2016 he was eventually able to be transferred to rehab for further care. MD JOCELYN Fisher/OSCAR /12:45 AM 11:09 AM
== END 2016-10-05 17:23 | DRG 3 ==
LOC: HSDI 08-18 06:36 → HCIN 08-18 19:55 → N03A 08-23 21:02
PROVIDERS: ADMIT Colon & Rectal Surgery; ATTEND Colon & Rectal Surgery
PROC: 0DB84ZX Excision of Small Intestine, Percutaneous Endoscopic Approach, Diagnostic (ICD-10-PCS; 2016-08-18)
PROC: 5A09357 Assistance with Respiratory Ventilation, Less than 24 Consecutive Hours, Continuous Positive Airway Pressure (ICD-10-PCS; 2016-08-23)
PROC: 0D1N0Z4 Bypass Sigmoid Colon to Cutaneous, Open Approach (ICD-10-PCS; 2016-08-24)
PROC: 0DQB0ZZ Repair Ileum, Open Approach (ICD-10-PCS; 2016-08-24)
PROC: 3E0M05Z Introduction of Adhesion Barrier into Peritoneal Cavity, Open Approach (ICD-10-PCS; 2016-08-24)
PROC: 8E0W4CZ Robotic Assisted Procedure of Trunk Region, Percutaneous Endoscopic Approach (ICD-10-PCS; principal; 2016-08-24 20:34)
PROC: 05HM33Z Insertion of Infusion Device into Right Internal Jugular Vein, Percutaneous Approach (ICD-10-PCS; 2016-08-25)
PROC: 5A1D60Z (ICD-10-PCS; 2016-08-26)
PROC: 02HV33Z Insertion of Infusion Device into Superior Vena Cava, Percutaneous Approach (ICD-10-PCS; 2016-08-31)
PROC: 05HM33Z Insertion of Infusion Device into Right Internal Jugular Vein, Percutaneous Approach (ICD-10-PCS; 2016-09-01)
PROC: 0W9G3ZX Drainage of Peritoneal Cavity, Percutaneous Approach, Diagnostic (ICD-10-PCS; 2016-09-01)
PROC: 30233N1 Transfusion of Nonautologous Red Blood Cells into Peripheral Vein, Percutaneous Approach (ICD-10-PCS; 2016-09-05)
PROC: 0DTN4ZZ Resection of Sigmoid Colon, Percutaneous Endoscopic Approach (ICD-10-PCS; 2016-09-13)
PROC: 0BCD8ZZ Extirpation of Matter from Right Middle Lung Lobe, Via Natural or Artificial Opening Endoscopic (ICD-10-PCS; 2016-09-13)
PROC: 03HC33Z Insertion of Infusion Device into Left Radial Artery, Percutaneous Approach (ICD-10-PCS; 2016-09-13)
PROC: 06HM33Z Insertion of Infusion Device into Right Femoral Vein, Percutaneous Approach (ICD-10-PCS; 2016-09-13)
PROC: 0BC38ZZ Extirpation of Matter from Right Main Bronchus, Via Natural or Artificial Opening Endoscopic (ICD-10-PCS; 2016-09-13)
PROC: 0TJB8ZZ Inspection of Bladder, Via Natural or Artificial Opening Endoscopic (ICD-10-PCS; 2016-09-15)
PROC: 0T788DZ Dilation of Bilateral Ureters with Intraluminal Device, Via Natural or Artificial Opening Endoscopic (ICD-10-PCS; 2016-09-15)
PROC: 0B113F4 Bypass Trachea to Cutaneous with Tracheostomy Device, Percutaneous Approach (ICD-10-PCS; 2016-09-18)
PROC: 0BJ08ZZ Inspection of Tracheobronchial Tree, Via Natural or Artificial Opening Endoscopic (ICD-10-PCS; 2016-09-18)
PROC: 05HN33Z Insertion of Infusion Device into Left Internal Jugular Vein, Percutaneous Approach (ICD-10-PCS; 2016-09-18)
PROC: 05H633Z Insertion of Infusion Device into Left Subclavian Vein, Percutaneous Approach (ICD-10-PCS; 2016-09-25)
DX: K57.20 Diverticulitis of large intestine with perforation and abscess without bleeding (principal); J96.01 Acute respiratory failure with hypoxia; A41.52 Sepsis due to Pseudomonas; N17.0 Acute kidney failure with tubular necrosis; R65.21 Severe sepsis with septic shock; K68.19 Other retroperitoneal abscess; G92 Toxic encephalopathy; J15.6 Pneumonia due to other Gram-negative bacteria; K65.1 Peritoneal abscess; T17.590A Other foreign object in bronchus causing asphyxiation, initial encounter; J44.0 Chronic obstructive pulmonary disease with (acute) lower respiratory infection; K56.7 Ileus, unspecified; Z99.11 Dependence on respirator [ventilator] status; T17.890A Other foreign object in other parts of respiratory tract causing asphyxiation, initial encounter; K57.12 Diverticulitis of small intestine without perforation or abscess without bleeding; J44.1 Chronic obstructive pulmonary disease with (acute) exacerbation; K91.89 Other postprocedural complications and disorders of digestive system; T81.30XA Disruption of wound, unspecified, initial encounter; E87.2 Acidosis; I16.1 Hypertensive emergency; I82.C11 Acute embolism and thrombosis of right internal jugular vein; E87.1 Hypo-osmolality and hyponatremia; T81.4XXA Infection following a procedure, initial encounter; I10 Essential (primary) hypertension; F17.210 Nicotine dependence, cigarettes, uncomplicated; F41.9 Anxiety disorder, unspecified; N40.0 Benign prostatic hyperplasia without lower urinary tract symptoms; Y95 Nosocomial condition; Y83.8 Other surgical procedures as the cause of abnormal reaction of the patient, or of later complication, without mention of misadventure at the time of the procedure; Y73.3 Surgical instruments, materials and gastroenterology and urology devices (including sutures) associated with adverse incidents; Y92.239 Unspecified place in hospital as the place of occurrence of the external cause; X58.XXXA Exposure to other specified factors, initial encounter; Y93.89 Activity, other specified; Y99.9 Unspecified external cause status; E87.70 Fluid overload, unspecified; E87.5 Hyperkalemia; N32.89 Other specified disorders of bladder; R73.9 Hyperglycemia, unspecified; D64.9 Anemia, unspecified; R00.0 Tachycardia, unspecified; E87.6 Hypokalemia; E83.39 Other disorders of phosphorus metabolism; D75.89 Other specified diseases of blood and blood-forming organs
CPT/HCPCS: 31600; 31624; 36415; 36430; 36556; 36558; 36600; 49406; 70450; 71010; 71250; 71275; 74000; 74176; 74270; 75989; 76937; 77001; 80048; 80053; 80069; 80074; 80185; 80202; 81001; 82248; 82272; 82550; 82805; 82948; 83540; 83550; 83605; 83735; 83880; 84100; 84132; 84134; 84484; 85007; 85014; 85018; 85025; 85027; 85384; 85610; 85730; 86403; 86850; 86900; 86901; 86920; 87015; 87040; 87070; 87071; 87077; 87086; 87102; 87106; 87116; 87186; 87205; 87206; 87493; 87641; 88112; 88305; 88307; 88309; 89051; 90935; 93005; 93306; 93970; 94002; 94003; 94150; 94640; 94664; 95819; 96365; 96374; 96375; 99152; 99153; A7521; C1729; C1750; C1765; C1769; C9113; J0131; J0171; J0360; J0461; J0610; J0690; J0692; J1100; J1170; J1200; J1450; J1580; J1610; J1630; J1644; J1815; J1885; J1940; J1956; J2060; J2150; J2185; J2248; J2250; J2270; J2405; J2543; J2765; J2920; J2997; J3010; J3260; J3370; J3480; J7030; J7040; J7050; J7120; J7608; J7613; J7614; J7626; J7682; P9016; P9047; Q2009; Q4081; Q9963; Q9967

== ENCOUNTER → 2016-08-15 | Outpatient (CLI) | payer OTHER ==
[~2016-08-15] MED LIST: ALBU1AER INH; AMLO5TAB22 PO; ASPI1TAB69 PO; ASPI81TA82 PO; AUGM875T PO; METF500 PO; SYMB160A INH; VENTAER INH
[2016-08-15 10:21] LABS: ALKALINE PHOSPHATASE 104 U/L (45-117); ALT (GPT) 44 U/L (12-78); ANION GAP 7 MEQ/L (5-15); AST (GOT) 38 U/L (15-37); BLOOD UREA NITROGEN 15 MG/DL (7-18); CHLORIDE 102 MEQ/L (98-107); GLOMERULAR FILTRATION RATE 76 ML/MIN (>89); GLUCOSE,FASTING 132 MG/DL (74-99); POTASSIUM 4.3 MEQ/L (3.5-5.1); SODIUM (NA) 136 MEQ/L (136-145); TOTAL BILIRUBIN ADULT 0.4 MG/DL (0.2-1.0)
== END ==
LOC: CPRE 08:50
PROVIDERS: ATTEND Colon & Rectal Surgery
DX: Z01.812 Encounter for preprocedural laboratory examination (principal); K57.32 Diverticulitis of large intestine without perforation or abscess without bleeding
CPT/HCPCS: 36415; 80053

== ENCOUNTER → 2017-01-16 | Outpatient (CLI) | payer OTHER ==
[~2017-01-16] MED LIST changes: -ALBU1AER INH; -AMLO5TAB22 PO; -ASPI81TA82 PO; -AUGM875T PO; +DIATRIZOATE MEGLUM/DIATRIZOATE SOD 120 ML BTL (for RAD DIAG) RECTAL ONE; -METF500 PO
--- NOTE | 2017-01-16 14:48 | RADRPT ---
EXAM DATE/TIME: 01/16/2017 10:51 [facility] COMPARISON: GASTROGRAFIN ENEMA, August 23, 2016, 10:12. INDICATIONS : Evaluate for reversal of ileostomy and hernia repair, history of diverticulitis and perforation FLUORO TIME: 1.4 minutes IMAGE COUNT: 21 CONTRAST: 1. G[facility]view MEDICAL HISTORY : Perforated diverticula, abscess, hernia, sepsi SURGICAL HISTORY : Ileostomy ENCOUNTER: Initial ACUITY: 1 day PAIN SCORE: 10/10 LOCATION: Bilateral abdomen FINDINGS: A Gastrografin enema was performed. Initial hydramatic specialist film demonstrates an normal bowel gas pattern with out obstruction or ileus. Gastrografin flowed freely through the colon from rectum to cecum without obstruction. The cecum is identified by filling of a normal-appearing appendix. There is no evidence of extravasation to sugge st an anastomotic leak in the region of the sigmoid colon. A few scattered uncomplicated diverticula are noted within the sigmoid colon. Evaluation of the mucosa of the colon is limited on this Gastrog rafin study. CONCLUSION: 1. No evidence of leak in the region of the anastomosis in the mid sigmoid colon. 2. Few scattered uncomplicated sigmoid diverticula. Carlo Cortes MD on January 16, 2017 at 14:00 Board Certified Radiologist. This report was verified electronically.
== END ==
LOC: HRAD 10:24
PROVIDERS: ATTEND Colon & Rectal Surgery
DX: K63.89 Other specified diseases of intestine (principal)
CPT/HCPCS: 74270; Q9963

== ENCOUNTER 2017-04-13 14:12 | Emergency (ER) | payer OTHER ==
[~2017-04-13] VITALS: Ht 175.3 cm; Wt 82.0 kg
[~2017-04-13 14:12] MED LIST changes: -DIATRIZOATE MEGLUM/DIATRIZOATE SOD 120 ML BTL (for RAD DIAG) RECTAL ONE
[2017-04-13 14:28] VITALS: BP 163/102; PULSE 103; RESP 20; TEMP 98.7; O2SAT 96
[2017-04-13] MEDS ORDERED: RESP: ALBUTEROL 2.5 MG/IPRATROPIUM 0.5 MG NEB (SCH) INH ONE (14:30)
[2017-04-13] MEDS ORDERED: SODIUM CHLORIDE 0.9% FLUSH 10 ML FLUSH IVF PRN (14:30)
--- NOTE | 2017-04-13 14:43 | PD ---
HPI Chief Complaint: Respiratory Symptoms Time Seen by Provider: 14:26 Travel History International Travel<30 days: No Contact w/Intl Traveler<30days: No Traveled to known affect area: No History of Present Illness HPI The patient is a 56-year-old male who presents to the emergency department for shortness of breath. The patient has a history of previous diverticulitis with partial colectomy with subsequent leakage. The patient then had an ileostomy performed and then reversal performed by his colorectal surgeon, Dr. Moffett. The patient then had a barium enema study to evaluate for an leaking anastomosis site, it was unremarkable in December. The patient has had a wound VAC of the abdomen since then and is seen every week or every other week by his colorectal surgeon. The patient has an appointment next Sunday. The patient presented emergency department today for increasing shortness of breath of last several weeks. The patient took a Medrol Dosepak and Zithromax on an outpatient basis, however, his symptoms have worsened. He does complain of a productive cough at times producing yellow sputum, shortness of breath, and wheezing. The patient last used 2 nebulizers just prior to arrival. There is no precipitating or exacerbating factors for her shortness of breath. He denies any known history of cardiomyopathy, ACS, congestive heart failure, or pulmonary edema. He does have a history of a blood clot in the neck and was placed on warfarin for 4 months. The patient stop the warfarin 3-4 months ago, is unsure if he had any pulmonary embolism at that time. He denies any surgery , hospitalizations, or prolonged travel in the last 3 months. He denies any recent lower extremity edema over the last several weeks. The patient does state he was told to have a CT of the abdomen and pelvis and chest x-ray performed during his visit in the emergency department. PFSH Past Medical History Hx Anticoagulant Therapy: Yes (BABY ASA DAILY) Asthma: Yes Anxiety: Yes Cancer: No Cardiovascular Problems: No High Cholesterol: Yes COPD: Yes Diabetes: Yes (diet control) Diminished Hearing: No Endocrine: No Genitourinary: No Hepatitis: No Hiatal Hernia: No Hypertension: Yes Immune Disorder: No Musculoskeletal: Yes (arthritis, both shoulder injuries) Neurologic: No Psychiatric: No Reproductive: No Respiratory: Yes (copd) Immunizations Current: Yes Thyroid Disease: No Triglycerides - High: Yes Past Surgical History AICD: No Joint Replacement: No Pacemaker: No Tonsillectomy: Yes Other Surgery: No Social History Alcohol Use: No Tobacco Use: Yes (1 ppd) Substance Use: No Allergies-Medications (Allergen,Severity, Reaction): Coded Allergies: *MDRO Multi-Drug Resistant Organism (Verified Adverse Reaction, Unknown, 04/13/17) MDR-Pseudomonas (sputum)-09/17/16 Reported Meds & Prescriptions Reported Meds & Active Scripts Active Reported Aspirin Low Dose (Aspirin) 81 Mg Chew 81 Mg CHEW DAILY Symbicort Inh (Budesonide/Formoterol Fumarate) 160-4.5 Mcg/Act Aero 2 Puff INH Q12HR PRN Ventolin Hfa 18 GM Inh (Albuterol Sulfate) 90 Mcg/Act Aer 2 Puff INH Q4H PRN Review of Systems Except as stated in HPI: all other systems reviewed are Neg General / Constitutional: No: Fever Cardiovascular: No: Chest Pain or Discomfort Respiratory: Positive: Cough, Shortness of Breath, Wheezing Gastrointestinal: Positive: Other (wound VAC in place), No: Nausea, Vomiting Musculoskeletal: No: Edema Physical Exam Narrative GENERAL: Awake, alert, very pleasant 56-year-old male who appears his stated age and is in no acute respiratory distress. SKIN: Focused skin assessment warm/dry. HEAD: Atraumatic. Normocephalic. EYES: Pupils equal and round. No scleral icterus. No injection or drainage. ENT: No nasal bleeding or discharge. Mucous membranes pink and moist. NECK: Trachea midline. No JVD. CARDIOVASCULAR: Regular, tachycardic with a heart rate of 110. RESPIRATORY: No accessory muscle use. Minimal movement wheeze in the right lower lobe. GASTROINTESTINAL: Abdomen soft, wound VAC in place with mild erythema just inferior lateral but no palpable abscess. MUSCULOSKELETAL: No obvious deformities. No clubbing. No cyanosis. No edema. Calves are soft bilaterally. NEUROLOGICAL: Awake and alert. No obvious cranial nerve deficits. Motor grossly within normal limits. Normal speech. PSYCHIATRIC: Appropriate mood and affect; insight and judgment normal. Data Data Last Documented VS Vital Signs Date Time Temp Pulse Resp B/P (MAP) Pulse Ox O2 Delivery O2 Flow Rate FiO2 04/13/17 15:25 104 16 165/97 (119) 97 Room Air 04/13/17 14:28 98.7 Orders Orders Complete Blood Count With Diff (04/13/17 14:26) Comprehensive Metabolic Panel (04/13/17 14:26) B-Type Natriuretic Peptide (04/13/17 14:26) Act Partial Throm Time (Ptt) (04/13/17 14:26) Prothrombin Time / Inr (Pt) (04/13/17 14:26) Magnesium (Mg) (04/13/17 14:26) Ckmb (Isoenzyme) Profile (04/13/17 14:26) Troponin I (04/13/17 14:) Iv Access Insert/Monitor (04/13/17 14:26) Ecg Monitoring (04/13/17 14:26) Oximetry (04/13/17 14:) Oxygen Administration (04/13/17 14:) Chest, Single Ap (04/13/17 14:26) Ct Pulmonary Angiogram (04/13/17 14:26) Sodium Chloride 0.9% Flush (Ns Flush) (04/13/17 14:30) Albuterol-Ipratropium Neb (Duoneb Neb) (04/13/17 14:30) Ct Abd/Pel W Iv Contrast(Rout) (04/13/17 ) Electrocardiogram (04/13/17 14:20) Iohexol 350 Inj (Omnipaque 350 Inj) (04/13/17 15:45) Prednisone (Deltasone) (04/13/17 16:45) Labs Laboratory Tests Test 04/13/17 14:45 White Blood Count 15.5 TH/MM3 Red Blood Count 4.71 MIL/MM3 Hemoglobin 12.5 GM/DL Hematocrit 38.0 % Mean Corpuscular Volume 80.8 FL Mean Corpuscular Hemoglobin 26.6 PG Mean Corpuscular Hemoglobin Concent 33.0 % Red Cell Distribution Width 13.3 % Platelet Count 347 TH/MM3 Mean Platelet Volume 7.4 FL Neutrophils (%) (Auto) 71.7 % Lymphocytes (%) (Auto) 18.2 % Monocytes (%) (Auto) 6.2 % Eosinophils (%) (Auto) 1.4 % Basophils (%) (Auto) 2.5 % Neutrophils # (Auto) 11.1 TH/MM3 Lymphocytes # (Auto) 2.8 TH/MM3 Monocytes # (Auto) 1.0 TH/MM3 Eosinophils # (Auto) 0.2 TH/MM3 Basophils # (Auto) 0.4 TH/MM3 CBC Comment DIFF FINAL Differential Comment Prothrombin Time 10.4 SEC Prothromb Time International Ratio 0.9 RATIO Activated Partial Thromboplast Time 27.0 SEC Blood Urea Nitrogen 11 MG/DL Creatinine 0.86 MG/DL Random Glucose 129 MG/DL Total Protein 7.8 GM/DL Albumin 2.9 GM/DL Calcium Level 9.1 MG/DL Magnesium Level 1.8 MG/DL Alkaline Phosphatase 157 U/L Aspartate Amino Transf (AST/SGOT) 33 U/L Alanine Aminotransferase (ALT/SGPT) 39 U/L Total Bilirubin 0.1 MG/DL Sodium Level 141 MEQ/L Potassium Level 3.6 MEQ/L Chloride Level 104 MEQ/L Carbon Dioxide Level 29.4 MEQ/L Anion Gap 8 MEQ/L Estimat Glomerular Filtration Rate 91 ML/MIN Total Creatine Kinase 51 U/L Troponin I LESS THAN 0.02 NG/ML B-Type Natriuretic Peptide 53 PG/ML MDM Medical Decision Making Medical Screen Exam Complete: Yes Emergency Medical Condition: Yes Medical Record Reviewed: Yes Interpretation(s) EKG reveals sinus tachycardia with a heart rate of 113. No ischemic changes noted. Laboratory Tests Test 04/13/17 14:45 White Blood Count 15.5 TH/MM3 Red Blood Count 4.71 MIL/MM3 Hemoglobin 12.5 GM/DL Hematocrit 38.0 % Mean Corpuscular Volume 80.8 FL Mean Corpuscular Hemoglobin 26.6 PG Mean Corpuscular Hemoglobin Concent 33.0 % Red Cell Distribution Width 13.3 % Platelet Count 347 TH/MM3 Mean Platelet Volume 7.4 FL Neutrophils (%) (Auto) 71.7 % Lymphocytes (%) (Auto) 18.2 % Monocytes (%) (Auto) 6.2 % Eosinophils (%) (Auto) 1.4 % Basophils (%) (Auto) 2.5 % Neutrophils # (Auto) 11.1 TH/MM3 Lymphocytes # (Auto) 2.8 TH/MM3 Monocytes # (Auto) 1.0 TH/MM3 Eosinophils # (Auto) 0.2 TH/MM3 Basophils # (Auto) 0.4 TH/MM3 CBC Comment DIFF FINAL Differential Comment Prothrombin Time 10.4 SEC Prothromb Time International Ratio 0.9 RATIO Activated Partial Thromboplast Time 27.0 SEC Blood Urea Nitrogen 11 MG/DL Creatinine 0.86 MG/DL Random Glucose 129 MG/DL Total Protein 7.8 GM/DL Albumin 2.9 GM/DL Calcium Level 9.1 MG/DL Magnesium Level 1.8 MG/DL Alkaline Phosphatase 157 U/L Aspartate Amino Transf (AST/SGOT) 33 U/L Alanine Aminotransferase (ALT/SGPT) 39 U/L Total Bilirubin 0.1 MG/DL Sodium Level 141 MEQ/L Potassium Level 3.6 MEQ/L Chloride Level 104 MEQ/L Carbon Dioxide Level 29.4 MEQ/L Anion Gap 8 MEQ/L Estimat Glomerular Filtration Rate 91 ML/MIN Total Creatine Kinase 51 U/L Troponin I LESS THAN 0.02 NG/ML B-Type Natriuretic Peptide 53 PG/ML Last Impressions Chest X-Ray 04/13/171425 Signed Impressions: Service Date/Time: Thursday, April 13, 2017 14:32 - CONCLUSION: No acute disease. Dave Easton MD CT Angiography 04/13/171425 Signed Impressions: Service Date/Time: Thursday, April 13, 2017 15:32 - CONCLUSION: 1. Study is somewhat limited by breathing motion artifact. 2. No pulmonary emboli. 3. Emphysematous changes. 4. Stable granuloma left lower lobe. Evelio Hitchcock Jr., MD Abdomen/Pelvis CT 04/13/17 0000 Signed Impressions: Service Date/Time: Thursday, April 13, 2017 15:32 - CONCLUSION: 1. Extensive postsurgical changes with fine surgical yehuda in multiple areas of the small bowel and rectosigmoid colon. No obstruction. 2. Large anterior abdominal wall defect with an associated probable incisional hernia. The hernia contains nondilated, nonobstructed loops of small bowel. Small amount of fluid and air along the inferior aspect of the hernia sac. 3. Bilateral inguinal hernias only contain fat. 4. Mildly enlarged prostate Juwan Guzman MD Differential Diagnosis Differential diagnosis includes pulmonary embolism, bronchitis, COPD exacerbation, pleural effusion, pulmonary edema, congestive heart failure, cardiomyopathy, intra-abdominal abscess, sepsis. Narrative Course IV was established, labs are drawn and sent, and the patient was placed on cardiac telemetry monitoring and continuous pulse oximetry monitoring. EKG was ordered and interpreted. Chest x-ray was obtained. CT of the abdomen and pelvis was ordered to evaluate for postoperative abscess and CT pulmonary angiogram was ordered to evaluate for possible pulmonary embolism as the patient does have a history of recent DVT and stopped warfarin approximately 3- 4 months ago. The patient was administered one DuoNeb. CT pulmonary angiogram feels no pulmonary embolism, the patient does have emphysematous changes. CT of the abdomen and pelvis reveals hernia with nonobstructed nondilated loops of bowel. Small amount of fluid and air the inferior aspect, most likely secondary and related to the patient's wound VAC. The patient does have emphysema and continues to smoke, we had a long discussion regarding the need to stop smoking. He is also advised to follow-up with a senior accountant in regards to his progressing COPD changes. BNP is unremarkable. Troponin is negative. The patient is stable for outpatient follow-up. He was administered prednisone 60 mg orally in the emergency department and will be discharged home on prednisone and albuterol nebulizers. Diagnosis Primary Impression: COPD exacerbation Patient Instructions: General Instructions Additional Instructions: medications as directed. Please provide the patient a copy of his lab results and CT results at discharge. Follow-up with Dr. Moffett and a senior accountant. Return if symptoms worsen or progress. Med/Other Pt SpecificInfo: Prescription(s) given Scripts Albuterol Neb (Albuterol Neb) 2.5 Mg/3 Ml Neb 2.5 MG NEB Q4HR NEB for Breathing Treatment, #60 NEBULE 0 Refills While awake Prov: Tristen Paredes MD 04/13/17 Prednisone (Deltasone) 20 Mg Tab 40 MG PO DAILY for 5 Days, #10 TAB 0 Refills Prov: Tristen Paredes MD 04/13/17 Disposition: 01 DISCHARGE HOME Condition: Stable Tristen Paredes MD Apr 13, 2017 14:43
--- NOTE | 2017-04-13 14:45 | RADRPT ---
EXAM DATE/TIME: 04/13/2017 14:32 [facility] COMPARISON: CHEST SINGLE AP, October 03, 2016, 5:15. INDICATIONS : Short of breath. MEDICAL HISTORY : Chronic obstructive pulmonary disease. Hypertension Asthma SURGICAL HISTORY : Colon resection. ENCOUNTER: Initial ACUITY: 1 month PAIN SCORE: 6/10 LOCATION: Bilateral chest FINDINGS: A single view of the chest demonstrates the lungs to be symmetrically aerated without evidence of mas s, infiltrate or effusion. There is some scarring in the right lung base. There is stable chronic in terstitial changes bilaterally. The cardiomediastinal contours are unremarkable. Osseous structures are intact. CONCLUSION: No acute disease. Dave Easton MD on April 13, 2017 at 14:43 Board Certified Radiologist. This report was verified electronically.
[2017-04-13 14:58] LABS: AUTOMATED NEUTROPHIL # 11.1 TH/MM3 (1.8-7.7); BASOPHIL # 0.4 TH/MM3 (0-0.2); BASOPHIL % 2.5 % (0.0-2.0); EOSINOPHIL # 0.2 TH/MM3 (0-0.4); EOSINOPHIL % 1.4 % (0.0-4.0); HEMO FLAGS DIFF FINAL; LYMPH % 18.2 % (9.0-44.0); LYMPHOCYTE # 2.8 TH/MM3 (1.0-4.8); MEAN CELL VOLUME 80.8 FL (80.0-100.0); MEAN CORPUSCULAR HEMOGLOBIN 26.6 PG (27.0-34.0); MONO % 6.2 % (0.0-8.0); NEUT % 71.7 % (16.0-70.0); PLATELET COUNT 347 TH/MM3 (150-450); RED BLOOD COUNT 4.71 MIL/MM3 (4.50-5.90); RED CELL DISTRIBUTION WIDTH 13.3 % (11.6-17.2); WHITE BLOOD COUNT 15.5 TH/MM3 (4.0-11.0)
[2017-04-13 15:08] LABS: CHLORIDE 104 MEQ/L (98-107); POTASSIUM 3.6 MEQ/L (3.5-5.1); SODIUM (NA) 141 MEQ/L (136-145)
[2017-04-13 15:11] LABS: ANION GAP 8 MEQ/L (5-15); BICARBONATE 29.4 MEQ/L (21.0-32.0); MAGNESIUM 1.8 MG/DL (1.5-2.5)
[2017-04-13 15:12] LABS: BLOOD UREA NITROGEN 11 MG/DL (7-18)
[2017-04-13 15:13] LABS: INTERNATIONAL NORMALIZED RATIO 0.9 RATIO; PROTHROMBIN TIME - PATIENT 10.4 SEC (9.8-11.6)
[2017-04-13 15:14] LABS: ALT (GPT) 39 U/L (12-78); AST (GOT) 33 U/L (15-37)
[2017-04-13 15:15] LABS: GLOMERULAR FILTRATION RATE 91 ML/MIN (>89)
[2017-04-13 15:16] LABS: TOTAL BILIRUBIN ADULT 0.1 MG/DL (0.2-1.0)
[2017-04-13 15:17] LABS: ALKALINE PHOSPHATASE 157 U/L (45-117)
[2017-04-13 15:22] LABS: CREATINE KINASE 51 U/L (39-308)
[2017-04-13 15:25] VITALS: BP 165/97; PULSE 104; RESP 16; O2SAT 97
[2017-04-13] MEDS ORDERED: IOHEXOL 350 MG/ML 10 ML VIAL (for RAD DIAG) IVCONTRAST ONE (15:45)
[2017-04-13] MEDS ORDERED: ASPI81CH37 CHEW (16:00)
--- NOTE | 2017-04-13 16:11 | RADRPT ---
EXAM DATE/TIME: 04/13/2017 15:32 [facility] COMPARISON: CT ABDOMEN & PELVIS W CONTRAST, July 31, 2014, 12:53. CT PULMONARY ANGIOGRAM, August 21, 2016, 14:05. INDICATIONS : Short of breath with tachycardia. IV CONTRAST: 75 cc Omnipaque 350 (iohexol) IV ; Cumulative dose for multiple exams. RADIATION DOSE: 18.60 CTDIvol (mGy) MEDICAL HISTORY : Deep venous thrombosis. Chronic obstructive pulmonary disease. Renal failure, chronic.Diabetes. Hype rtension. Diverticulitis. SURGICAL HISTORY : Partial colectomy. Ileostomy and reversal. Wound VAC. ENCOUNTER: Initial ACUITY: 2 weeks PAIN SCALE: 5/10 LOCATION: chest TECHNIQUE: Volumetric scanning of the chest was performed using a pulmonary embolism protocol MIP images were re constructed. Using automated exposure control and adjustment of the mA and/or kV according to patien t size, radiation dose was kept as low as reasonably achievable to obtain optimal diagnostic quality images. DICOM format image data is available electronically for review and comparison. Follow-up recommendations for detected pulmonary nodules are based at a minimum on nodule size and pa tient risk factors according to Fleischner Society Guidelines. FINDINGS: The study is breathing motion degraded. PULMONARY ARTERIES: No filling defects are seen in the pulmonary arteries through the segmental level. There is limitatio ns to the more peripheral pulmonary artery evaluation due to the breathing motion artifact. LUNGS: Diffuse emphysematous changes. Linear atelectasis within the right middle lobe and bibasilar lower lo bes. No mass or infiltrate. The there is a 5 mm nodule within the lateral basilar segment left lower lobe. This is stable. PLEURAE: There is no pleural thickening or pleural effusion. MEDIASTINUM: There is good visualization of the great vessels of the middle mediastinum. No evidence of mediastin al or hilar adenopathy/mass. MUSCULOSKELETAL: Within normal limits for patient age. MISCELLANEOUS: The visualized upper abdominal organs demonstrate no acute abnormality. CONCLUSION: 1. Study is somewhat limited by breathing motion artifact. 2. No pulmonary emboli. 3. Emphysematous changes. 4. Stable granuloma left lower lobe. Evelio Hitchcock Jr., MD on April 13, 2017 at 15:55 Board Certified Radiologist. This report was verified electronically.
--- NOTE | 2017-04-13 16:15 | RADRPT ---
EXAM DATE/TIME: 04/13/2017 15:32 [facility] COMPARISON: CT ABDOMEN & PELVIS W/O CONTRAST, September 23, 2016, 15:22. CT ABDOMEN & PELVIS W CONTRAST, July, 12:53. INDICATIONS : Lower abdominal pain. IV CONTRAST: 75 cc Omnipaque 350 (iohexol) IV ; Cumulative dose for multiple exams. ORAL CONTRAST: No oral contrast ingested. RADIATION DOSE: 20.76 CTDIvol (mGy) MEDICAL HISTORY : Deep venous thrombosis. Chronic obstructive pulmonary disease. Renal failure, chronic.Diabetes. Hype rtension. Diverticulitis. SURGICAL HISTORY : Partial colectomy. Ileostomy and reversal. Wound VAC. ENCOUNTER: Initial ACUITY: 2 weeks PAIN SCALE: 9/10 LOCATION: Bilateral lower quadrant TECHNIQUE: Volumetric scanning of the abdomen and pelvis was performed. Using automated exposure control and ad justment of the mA and/or kV according to patient size, radiation dose was kept as low as reasonably achievable to obtain optimal diagnostic quality images. DICOM format image data is available electro nically for review and comparison. FINDINGS: LOWER LUNGS: Some atelectasis or scarring posteriorly in the right base. Lung bases are otherwise clear. LIVER: Homogeneous density without lesion. There is no dilation of the biliary tree. No calcified gallston es. SPLEEN: Normal size without lesion. PANCREAS: Within normal limits. KIDNEYS: Normal in size and shape. There is no mass, stone or hydronephrosis. ADRENAL GLANDS: Within normal limits. VASCULAR: There is no aortic aneurysm. BOWEL/MESENTERY: Extensive postsurgical changes with multiple surgical clips at the rectosigmoid junction and in multi ple small bowel loops. No obstruction. ABDOMINAL WALL: Large anterior abdominal wall probable incisional hernia which contains loops of nonobstructed small bowel. There is also some air and fluid along the inferior aspect of the hernia sac. RETROPERITONEUM: There is no lymphadenopathy. BLADDER: No wall thickening or mass. REPRODUCTIVE: Prominent prostate measuring 4.6 cm in diameter with some dystrophic type calcifications. INGUINAL: Small bilateral inguinal hernias measuring approximately 1.7 cm in diameter which only contain fat. MUSCULOSKELETAL: Within normal limits for patient age. CONCLUSION: 1. Extensive postsurgical changes with fine surgical yehuda in multiple areas of the small bowel and rectosigmoid colon. No obstruction. 2. Large anterior abdominal wall defect with an associated probable incisional hernia. The hernia con tains nondilated, nonobstructed loops of small bowel. Small amount of fluid and air along the inferio r aspect of the hernia sac. 3. Bilateral inguinal hernias only contain fat. 4. Mildly enlarged prostate Juwan Guzman MD on April 13, 2017 at 16:05 Board Certified Radiologist. This report was verified electronically.
[2017-04-13] MEDS ORDERED: ALBU0.08 NEB (16:39)
[2017-04-13] MEDS ORDERED: PRED-503 PO (16:39)
[2017-04-13] MEDS ORDERED: predniSONE 20 MG TAB PO ONE (16:45)
[2017-04-13 16:50] VITALS: BP 170/84
--- NOTE | 2017-04-14 17:26 | EKG ---
Date Performed: 04/13/2017 Time Performed: 14:20:50 PTAGE: 56 years EKG: SINUS TACHYCARDIA ABNORMAL RHYTHM ECG PREVIOUS TRACING : 09/28/2016 11.50 Compared to prior tracing no significant change DOCTOR: El Gonzalez Interpretating Date/Time 04/14/2017 17:25:08
== END 2017-04-13 16:50 | disposition home or self-care (01) ==
LOC: PHED 14:12
DX: J44.1 Chronic obstructive pulmonary disease with (acute) exacerbation (principal); R94.31 Abnormal electrocardiogram [ECG] [EKG]; F17.210 Nicotine dependence, cigarettes, uncomplicated; Z79.01 Long term (current) use of anticoagulants
CPT/HCPCS: 71010; 71275; 74177; 80053; 82550; 83735; 83880; 84484; 85025; 85610; 85730; 93005; 94664; 99285; J7512; Q9967

== ENCOUNTER 2017-04-28 13:19 | Emergency (ER) | payer OTHER ==
[~2017-04-28] VITALS: Ht 175.3 cm; Wt 86.0 kg
[~2017-04-28 13:19] MED LIST changes: +ALBU0.08 NEB; -ASPI1TAB69 PO; +ASPI81CH6 CHEW; +PRED-503 PO
[2017-04-28 13:25] VITALS: BP 179/100; PULSE 95; RESP 16; TEMP 97.9; O2SAT 97
[2017-04-28] MEDS ORDERED: AMBI5TAB PO (13:41)
[2017-04-28] MEDS ORDERED: TRAM50TA PO (13:41)
--- NOTE | 2017-04-28 14:16 | RADRPT ---
EXAM DATE/TIME: 04/28/2017 14:01 [facility] COMPARISON: CT PULMONARY ANGIOGRAM, April 13, 2017, 15:32. CHEST SINGLE AP, April 13, 2017, 14:32. INDICATIONS : Cough, short of breath MEDICAL HISTORY : Chronic obstructive pulmonary disease. Emphysema. SURGICAL HISTORY : Abdominal surgery, colon surgery ENCOUNTER: Initial ACUITY: 3 weeks PAIN SCORE: 0/10 LOCATION: Bilateral chest FINDINGS: PA and lateral views of the chest demonstrate the lungs to be symmetrically aerated without evidence of mass, infiltrate or effusion. The cardiomediastinal contours are unremarkable. Osseous structure s are intact. Emphysema again noted. CONCLUSION: No evidence of acute cardiopulmonary disease. Claude Saavedra MD on April 28, 2017 at 14:14 Board Certified Radiologist. This report was verified electronically.
[2017-04-28 14:37] VITALS: BP 163/101; PULSE 90; RESP 18; O2SAT 99
--- NOTE | 2017-04-28 14:47 | PD ---
HPI Chief Complaint: Respiratory Symptoms Time Seen by Provider: 13:48 Travel History International Travel<30 days: No Contact w/Intl Traveler<30days: No Traveled to known affect area: No History of Present Illness HPI 56 yo M c/o dyspnea c/w COPD. Pt used nebulizer x three today and reports some benefit. no fever. + Cough w productive phlegm. he finished a course of azithromycin followed by a course of augmentin. last week patient completed a course of steroids. location pulmonary severity moderate. No cp. No NELSON or orthopnea. PFSH Past Medical History Hx Anticoagulant Therapy: Yes (BABY ASA DAILY) Asthma: Yes Anxiety: Yes Cancer: No Cardiovascular Problems: Yes High Cholesterol: Yes COPD: Yes Diabetes: Yes (diet control) Patient Takes Glucophage: No Diminished Hearing: No Diverticulitis: Yes Deep Vein Thrombosis: Yes (left IJ) Endocrine: No Gastrointestinal Disorders: Yes (diverticulitis) Genitourinary: No Hepatitis: No Hiatal Hernia: No Hypertension: Yes Immune Disorder: No Musculoskeletal: Yes (arthritis, both shoulder injuries) Neurologic: No Psychiatric: No Reproductive: No Respiratory: Yes (copd) Immunizations Current: Yes Thyroid Disease: No Triglycerides - High: Yes Influenza Vaccination: No ?: Not Past Surgical History Abdominal Surgery: Yes (raptured diverticulitis/reversed ileostomy/henia repair ) AICD: No Joint Replacement: No Pacemaker: No Tonsillectomy: Yes Other Surgery: Yes (Anastomotic leak, I&D, loop ileostomy ) Social History Alcohol Use: No Tobacco Use: Yes (6 cigs pd) Substance Use: No Allergies-Medications (Allergen,Severity, Reaction): Coded Allergies: *MDRO Multi-Drug Resistant Organism (Verified Adverse Reaction, Unknown, 04/28/17) MDR-Pseudomonas (sputum)-09/17/16 Reported Meds & Prescriptions Reported Meds & Active Scripts Active Reported Ambien (Zolpidem Tartrate) 5 Mg Tab 5 Mg PO HS PRN Tramadol (Tramadol HCl) 50 Mg Tab 50 Mg PO HS PRN Review of Systems Except as stated in HPI: all other systems reviewed are Neg General / Constitutional: No: Fever Cardiovascular: No: Chest Pain or Discomfort Respiratory: Positive: Cough, Shortness of Breath, Wheezing Physical Exam Narrative GENERAL: 56 yo M, WNWD, NAD, speaking full sentences SKIN: Warm and dry. HEAD: Atraumatic. Normocephalic. EYES: Pupils equal and round. No scleral icterus. No injection or drainage. ENT: No nasal bleeding or discharge. Mucous membranes pink and moist. NECK: Trachea midline. No JVD. CARDIOVASCULAR: Regular rate and rhythm. RESPIRATORY: Lungs with trace wheezing. No tachypnea. GASTROINTESTINAL: Abdomen soft, non-tender, nondistended. Hepatic and splenic margins not palpable. MUSCULOSKELETAL: Extremities without clubbing, cyanosis, or edema. No obvious deformities. NEUROLOGICAL: Awake and alert. No obvious cranial nerve deficits. Motor grossly within normal limits. Five out of 5 muscle strength in the arms and legs. Normal speech. PSYCHIATRIC: Appropriate mood and affect; insight and judgment normal. Data Data Last Documented VS Vital Signs Date Time Temp Pulse Resp B/P (MAP) Pulse Ox O2 Delivery O2 Flow Rate FiO2 04/28/17 14:52 04/28/17 14:37 18 99 Room Air 04/28/17 14:37 90 04/28/17 13:25 97.9 VS reivewed Vital Signs Date Time Temp Pulse Resp B/P (MAP) Pulse Ox O2 Delivery O2 Flow Rate FiO2 04/28/17 14:52 04/28/17 14:37 18 99 Room Air 04/28/17 14:37 99 Room Air 04/28/17 14:37 90 18 163/101 (121) 99 Room Air 04/28/17 13:25 97.9 95 16 179/100 (126) 97 Orders Orders Oximetry (04/28/17 13:48) Oxygen Administration (04/28/17 13:48) Chest, Pa & Lat (04/28/17 13:48) Ed Discharge Order (04/28/17 14:48) [facility] Medical Decision Making Medical Screen Exam Complete: Yes Emergency Medical Condition: Yes Medical Record Reviewed: Yes Differential Diagnosis PNA, PTX, PE, copd exacerbation Narrative Course Pt refused breathing treatments His cxr is unremarkable Pt ambulated around the ER without difficulty and with an O2 of 96% on RA upon return follow up with primary doctor Diagnosis Primary Impression: COPD (chronic obstructive pulmonary disease) Qualified Codes: J44.9 - Chronic obstructive pulmonary disease, unspecified Med/Other Pt SpecificInfo: No Change to Meds Disposition: 01 DISCHARGE HOME Condition: Stable Dg Nova MD Apr 28, 2017 14:47
== END 2017-04-28 14:52 | disposition home or self-care (01) ==
LOC: PHED 13:19
DX: J44.9 Chronic obstructive pulmonary disease, unspecified (principal); F17.210 Nicotine dependence, cigarettes, uncomplicated
CPT/HCPCS: 71020; 99283

== ENCOUNTER 2017-11-04 09:38 | Emergency (ER) | payer OTHER, MEDICAID ==
[~2017-11-04 09:38] MED LIST changes: -ALBU0.08 NEB; +AMBI5TAB PO; -ASPI81CH6 CHEW; -PRED-503 PO; -SYMB160A INH; +TRAM50TA PO; -VENTAER INH
[2017-11-04 09:44] VITALS: BP 174/104; PULSE 101; RESP 22; TEMP 98.2; O2SAT 95
[2017-11-04] MEDS ORDERED: guaiFENesin/CODEINE SYRUP 200 MG/20 MG/10 ML CUP PO ONE (10:15)
--- NOTE | 2017-11-04 10:16 | PD ---
HPI Chief Complaint: Respiratory Symptoms Time Seen by Provider: 09:57 Travel History International Travel<30 days: No Contact w/Intl Traveler<30days: No Traveled to known affect area: No History of Present Illness HPI 57yo M with PMH of complications from diverticulitis here with c/o sob and cough for a few weeks. Pt said he has been feeling more sob after walking a few blocks in the last few days. +Fever at home. Said it happens every year and he just needs some augmentin for 10 days and CXR. Denies any chest pain, nausea, vomiting. Pt has chronic abdominal pain that he does not want to address today as he is following with his surgeon Dr. Santa. PFSH Past Medical History Hx Anticoagulant Therapy: Yes (BABY ASA DAILY) Asthma: Yes Anxiety: Yes Cancer: No Cardiovascular Problems: Yes High Cholesterol: Yes COPD: Yes Diabetes: Yes (diet control) Diminished Hearing: No Diverticulitis: Yes Deep Vein Thrombosis: Yes (left IJ) Endocrine: No Gastrointestinal Disorders: Yes (diverticulitis) Genitourinary: No Hepatitis: No Hiatal Hernia: No Hypertension: Yes Immune Disorder: No Musculoskeletal: Yes (arthritis, both shoulder injuries) Neurologic: No Psychiatric: No Reproductive: No Respiratory: Yes (copd) Immunizations Current: Yes Thyroid Disease: No Triglycerides - High: Yes Past Surgical History Abdominal Surgery: Yes (raptured diverticulitis/reversed ileostomy/henia repair ) AICD: No Joint Replacement: No Pacemaker: No Tonsillectomy: Yes Other Surgery: Yes (Anastomotic leak, I&D, loop ileostomy ) Social History Alcohol Use: No Tobacco Use: Yes (6 cigs pd) Substance Use: No Allergies-Medications (Allergen,Severity, Reaction): Coded Allergies: *MDRO Multi-Drug Resistant Organism (Verified Adverse Reaction, Unknown, ) MDR-Pseudomonas (sputum)-09/17/16 Reported Meds & Prescriptions Reported Meds & Active Scripts Active No Active Prescriptions or Reported Medications Review of Systems Except as stated in HPI: all other systems reviewed are Neg Physical Exam Narrative GENERAL: 57yo M not in distress. SKIN: Focused skin assessment warm/dry. HEAD: Atraumatic. Normocephalic. EYES: Pupils equal and round. No scleral icterus. No injection or drainage. ENT: No nasal bleeding or discharge. Mucous membranes pink and moist. NECK: Trachea midline. No JVD. CARDIOVASCULAR: Regular rate and rhythm. No murmur appreciated. RESPIRATORY: No accessory muscle use. Coarse breath sounds bases. GASTROINTESTINAL: Abdomen soft, large ventral hernia. No rebound tenderness. MUSCULOSKELETAL: No obvious deformities. No clubbing. No cyanosis. No edema. NEUROLOGICAL: Awake and alert. No obvious cranial nerve deficits. Motor grossly within normal limits. Normal speech. PSYCHIATRIC: Appropriate mood and affect; insight and judgment normal. Data Data Last Documented VS Vital Signs Date Time Temp Pulse Resp B/P (MAP) Pulse Ox O2 Delivery O2 Flow Rate FiO2 11/04/17 10:35 97 18 163/81 (108) 95 Room Air 11/04/17 09:44 98.2 Orders Orders Complete Blood Count With Diff (11/04/17 10:07) Basic Metabolic Panel (Bmp) (11/04/17 10:07) B-Type Natriuretic Peptide (11/04/17 10:07) Troponin I (11/04/17 10:07) Chest, Single Ap (11/04/17 10:07) Electrocardiogram (11/04/17 ) Lactic Acid Sepsis Protocol (11/04/17 10:07) Guaifen-Cod 200-20 Mg/10ml Liq (Robituss (11/04/17 10:15) Labs Laboratory Tests Test 11/04/17 10:20 White Blood Count 7.5 TH/MM3 Red Blood Count 5.05 MIL/MM3 Hemoglobin 13.9 GM/DL Hematocrit 42.5 % Mean Corpuscular Volume 84.1 FL Mean Corpuscular Hemoglobin 27.5 PG Mean Corpuscular Hemoglobin Concent 32.8 % Red Cell Distribution Width 13.2 % Platelet Count 251 TH/MM3 Mean Platelet Volume 7.7 FL Neutrophils (%) (Auto) 55.4 % Lymphocytes (%) (Auto) 28.8 % Monocytes (%) (Auto) 10.9 % Eosinophils (%) (Auto) 4.0 % Basophils (%) (Auto) 0.9 % Neutrophils # (Auto) 4.1 TH/MM3 Lymphocytes # (Auto) 2.2 TH/MM3 Monocytes # (Auto) 0.8 TH/MM3 Eosinophils # (Auto) 0.3 TH/MM3 Basophils # (Auto) 0.1 TH/MM3 CBC Comment DIFF FINAL Differential Comment Blood Urea Nitrogen 15 MG/DL Creatinine 0.97 MG/DL Random Glucose 119 MG/DL Calcium Level 9.1 MG/DL Sodium Level 139 MEQ/L Potassium Level 4.3 MEQ/L Chloride Level 105 MEQ/L Carbon Dioxide Level 27.1 MEQ/L Anion Gap 7 MEQ/L Estimat Glomerular Filtration Rate 79 ML/MIN Lactic Acid Level 1.4 mmol/L Troponin I LESS THAN 0.02 NG/ML B-Type Natriuretic Peptide 25 PG/ML [facility] Medical Decision Making Medical Screen Exam Complete: Yes Emergency Medical Condition: Yes Interpretation(s) EKG: NSR 92bpm. Normal axis. No ST segment elevation or depression. Differential Diagnosis CHF vs. COPD vs. pneumonia vs. bronchitis Narrative Course 57yo M here with cough and sob for a few weeks. Pt used to be a heavy cig smoker and said it happens every year and he needs antibiotics. Labs reviewed, no leukocytosis. H/H normal. Troponin negative. BNP normal. Lactic acid normal. CXR showed stable emphysema. No evidence of acute abnormality. Pt used to be a heavy smoker so will give prednisone for COPD. Pt said he used 2 nebulizer treatment at home and does not want any more here since it makes him jittery. Said he will take at home as needed. Pt does not want to wait for his steroid here so will write prescription. 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 Return precautions given. Diagnosis Primary Impression: Emphysema lung Qualified Codes: J43.9 - Emphysema, unspecified Patient Instructions: General Instructions Departure Forms: Tests/Procedures Additional Instructions: Please follow up with your fiber optic assembly worker in 2-3 days. Return to the ED if symptoms worsen. Med/Other Pt SpecificInfo: Prescription(s) given Scripts Prednisone (Prednisone) 50 Mg Tab 50 MG PO DAILY for 5 Days, #5 TAB 0 Refills Prov: Laurel Farrar DO 11/04/17 Amoxicillin-Clavulanate (Augmentin) 875-125 Mg Tab 1 TAB PO BID for Infection, #10 TAB 0 Refills Prov: Laurel Farrar DO 11/04/17 Disposition: 01 DISCHARGE HOME Condition: Stable Laurel Farrar DO November 04, 2017 10:16
[2017-11-04 10:32] LABS: AUTOMATED NEUTROPHIL # 4.1 TH/MM3 (1.8-7.7); BASOPHIL # 0.1 TH/MM3 (0-0.2); BASOPHIL % 0.9 % (0.0-2.0); EOSINOPHIL # 0.3 TH/MM3 (0-0.4); HEMATOCRIT 42.5 % (39.0-51.0); HEMOGLOBIN 13.9 GM/DL (13.0-17.0); LYMPH % 28.8 % (9.0-44.0); LYMPHOCYTE # 2.2 TH/MM3 (1.0-4.8); MEAN CELL VOLUME 84.1 FL (80.0-100.0); MEAN CORPUSCULAR HEMOGLOBIN 27.5 PG (27.0-34.0); MEAN CORPUSCULAR HGB CONC 32.8 % (32.0-36.0); MEAN PLATELET VOLUME 7.7 FL (7.0-11.0); MONO % 10.9 % (0.0-8.0); MONOCYTE # 0.8 TH/MM3 (0-0.9); NEUT % 55.4 % (16.0-70.0); PLATELET COUNT 251 TH/MM3 (150-450); RED BLOOD COUNT 5.05 MIL/MM3 (4.50-5.90); RED CELL DISTRIBUTION WIDTH 13.2 % (11.6-17.2); WHITE BLOOD COUNT 7.5 TH/MM3 (4.0-11.0)
[2017-11-04 10:35] VITALS: BP 163/81; PULSE 97; RESP 18; O2SAT 95
[2017-11-04 10:40] LABS: CHLORIDE 105 MEQ/L (98-107); SODIUM (NA) 139 MEQ/L (136-145)
[2017-11-04 10:43] LABS: CALCIUM 9.1 MG/DL (8.5-10.1); GLUCOSE,RANDOM 119 MG/DL (74-106)
[2017-11-04 10:44] LABS: BICARBONATE 27.1 MEQ/L (21.0-32.0); BLOOD UREA NITROGEN 15 MG/DL (7-18)
[2017-11-04 10:48] LABS: CREATININE 0.97 MG/DL (0.60-1.30); GLOMERULAR FILTRATION RATE 79 ML/MIN (>89)
[2017-11-04 10:51] LABS: TROPONIN I LESS THAN 0.02 NG/ML (0.02-0.05)
--- NOTE | 2017-11-04 10:52 | RADRPT ---
EXAM DATE/TIME: 11/04/2017 10:40 [facility] COMPARISON: CT PULMONARY ANGIOGRAM, April 13, 2017, 15:32. CHEST SINGLE AP, April 13, 2017, 14:32. INDICATIONS : Cough and congestion for 5 weeks. MEDICAL HISTORY : Hypertension. Chronic obstructive pulmonary disease. Hiatal hernia. SURGICAL HISTORY : Multiple hernia repair surgeries. ENCOUNTER: Initial ACUITY: 1 month PAIN SCORE: 0/10 LOCATION: Bilateral chest FINDINGS: PA upright view of the chest demonstrate stable centrilobular emphysematous changes. No evidence of f ocal airspace consolidation. No evidence of pneumothorax. Mild scarring identified within the right m iddle lobe, stable. Heart size is normal. Pulmonary vasculature is normal. CONCLUSION: Stable emphysema. No evidence of acute abnormality. Radha Hamilton MD on November 04, 2017 at 10:47 Board Certified Radiologist. This report was verified electronically.
[2017-11-04] MEDS ORDERED: AUGM875T3 PO (11:48)
[2017-11-04] MEDS ORDERED: PRED50 PO (11:48)
[2017-11-04 11:53] VITALS: BP 139/89
--- NOTE | 2017-11-04 16:56 | EKG ---
Date Performed: 11/04/2017 Time Performed: 10:16:49 PTAGE: 57 years EKG: Sinus rhythm NORMAL ECG PREVIOUS TRACING : 04/13/2017 14.20 Since the previous tracing, no significant change noted DOCTOR: Gurjit Benedict Interpretating Date/Time 11/04/2017 16:55:26
== END 2017-11-04 12:01 | disposition home or self-care (01) ==
LOC: PHED 09:38
DX: J43.9 Emphysema, unspecified (principal); F17.210 Nicotine dependence, cigarettes, uncomplicated; E11.9 Type 2 diabetes mellitus without complications; F41.9 Anxiety disorder, unspecified; I10 Essential (primary) hypertension; E78.2 Mixed hyperlipidemia; G89.29 Other chronic pain; R10.9 Unspecified abdominal pain; Z86.718 Personal history of other venous thrombosis and embolism
CPT/HCPCS: 71045; 80048; 83605; 83880; 84484; 85025; 93005; 99285